=== PATIENT | female | born 1955 | race Two or more races ===

== ENCOUNTER 2022-09-24 08:53 | Outpatient (OUT) | payer BC, SELFPAY ==
[2022-09-24 09:56] LABS: Anion Gap 12.3; BUN Creatinine Ratio 14.9; Calcium 9.7 mg/dL (8.5-10.1); Carbon Dioxide 27.2 mmol/L (21.0-32.0); Chloride 99 mmol/L (98-107); Estimated GFR (African America 54 (>=60); Estimated GFR (Non-African Ame 45 (>=60); Glucose 135 mg/dL (74-106); Potassium 4.5 mmol/L (3.5-5.1); Sodium 134 mmol/L (136-145)
== END 2022-09-24 08:54 ==
LOC: LAB 08:59
PROVIDERS: PCP Family Medicine; Visit Provider Family Medicine
DX: E11.9 Type 2 diabetes mellitus without complications (principal); R79.89 Other specified abnormal findings of blood chemistry
CPT/HCPCS: 36415; 80048

== ENCOUNTER 2023-04-02 08:01 | Outpatient (OUT) | payer OTHER, SELFPAY ==
[2023-04-02 08:36] LABS: Basophils Absolute Auto 0.1 10^3/uL (0.0-0.1); Basophils Percent Auto 1.6 % (0.2-2.0); Eosinophils Absolute Auto 0.3 10^3/uL (0.0-0.7); Hematocrit 36.7 % (36.0-48.0); Immature Granulocytes Abs Auto 0.02 10^3/uL (0.00-0.03); Immature Granulocytes Pct Auto 0.3 % (0.0-0.5); Lymphocytes Absolute Auto 2.3 10^3/uL (1.2-3.8); Lymphocytes Percent Auto 33.7 % (20.5-60.0); Mean Corpuscular HGB Conc 32.7 g/dL (29.9-35.2); Mean Corpuscular Hemoglobin 31.2 pg (26.7-34.0); Mean Corpuscular Volume 95.3 fL (81.0-99.0); Mean Platelet Volume 11.3 fL (9.5-13.5); Monocytes Absolute Auto 0.7 10^3/uL (0.3-0.8); Monocytes Percent Auto 10.9 % (1.7-12.0); Neutrophils Absolute Auto 3.4 10^3/uL (1.4-6.5); Neutrophils Percent Auto 49.5 % (43.0-75.0); Platelet Count 290 10^3/uL (150-450); Red Blood Count 3.85 10^6/uL (4.20-5.40); Red Cell Distribution Width 12.2 % (11.0-15.0); White Blood Count 6.8 10^3/uL (4.0-11.0)
[2023-04-02 08:52] LABS: Estimated Average Glucose 183 mg/dL
[2023-04-02 09:09] LABS: Alanine Aminotransferase 31 U/L (14-59); Albumin Globulin Ratio 0.8; Albumin Level 3.4 g/dL (3.4-5.0); Alkaline Phosphatase 81 U/L (46-116); Aspartate Amino Transferase 18 U/L (15-37); BUN Creatinine Ratio 14.2; Bilirubin Total 0.4 mg/dL (0.2-1.0); Calcium 9.8 mg/dL (8.5-10.1); Carbon Dioxide 22.3 mmol/L (21.0-32.0); Chloride 100 mmol/L (98-107); Chol HDL Ratio 3.1; Cholesterol 148 mg/dL (<=200); Estimated GFR (African America 54 (>=60); Estimated GFR (Non-African Ame 45 (>=60); Globulin 4.3 g/dL; Glucose 169 mg/dL (74-106); HDL Cholesterol 47 mg/dL (40-60); Potassium 3.3 mmol/L (3.5-5.1); Sodium 136 mmol/L (136-145); Total Protein 7.7 g/dL (6.4-8.2); Triglycerides 223 mg/dL (<=150); VLDL CHOLESTEROL 44.6 mg/dL
== END 2023-04-02 08:02 | disposition home or self-care (01) ==
LOC: LAB 08:01
PROVIDERS: PCP Family Medicine; Visit Provider Family Medicine
DX: E78.5 Hyperlipidemia, unspecified (principal); R79.89 Other specified abnormal findings of blood chemistry; D64.9 Anemia, unspecified; E53.8 Deficiency of other specified B group vitamins; E11.9 Type 2 diabetes mellitus without complications
CPT/HCPCS: 36415; 80053; 80061; 82607; 82746; 83036; 85025

== ENCOUNTER 2023-04-12 13:26 | Outpatient (OUT) | payer OTHER, SELFPAY ==
[2023-04-12 14:41] LABS: Anion Gap 17.5; BUN Creatinine Ratio 18.9; Calcium 10.4 mg/dL (8.5-10.1); Carbon Dioxide 24.6 mmol/L (21.0-32.0); Chloride 101 mmol/L (98-107); Estimated GFR (African America 53 (>=60); Estimated GFR (Non-African Ame 44 (>=60); Glucose 170 mg/dL (74-106); Potassium 4.1 mmol/L (3.5-5.1); Sodium 139 mmol/L (136-145)
== END 2023-04-12 13:27 | disposition home or self-care (01) ==
LOC: LAB 13:29
PROVIDERS: PCP Family Medicine; Visit Provider Family Medicine
DX: E87.6 Hypokalemia (principal)
CPT/HCPCS: 36415; 80048

== ENCOUNTER 2023-05-13 07:26 | Outpatient (OUT) | payer OTHER, SELFPAY ==
--- OUTSIDE RECORDS SUMMARY | 2023-05-13 07:29 | XMS_ITS | CCD ---
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 Name Role Phone Selin Jean Attending Unavailable Ted, Selin Pastor Attending Unavailable CHUCHO HONEYCUTT Attending Unavailable Ted, Selin Pastor Attending Unavailable UNKNOWN, PROVIDER Admitting Unavailable SELF, REFERRED Referring Unavailable SELF, REFERRED Primary Care Unavailable CHIP CEDILLO Attending Unavailable MD Procedure Practitioner Unavailab le UNKNOWN, PROVIDER Surgeon Unavailable Rin Nicholson Unavailable LYN, DR GAR Admitting Unavailable GIRBALJIT, DR GAR Attending Unavailable GIRVIN, DR GAR Consulting Unavailable GIRVIN, DR GAR Primary Care Unavailable GIRVIN, DR GAR Admitting Unavailable GIRVIN, DR GAR Attending Unavailable GIRVIN, DR GAR Consulting Unavailable GIRVIN, DR GAR Primary Care Unavailable GIRVIN, DR GAR Admitting Unavailable GIRVIN, DR GAR Attending Unavailable GIRVIN, DR GAR Consulting Unavailable GIRVIN, DR GAR Primary Care Unavailable PAY ., DR DUNBAR Consulting Unavailable PAY ., DR DUNBAR Admitting Unavailable PAY ., DR DUNBAR Attending Unavailable GIRBALJIT, DR GAR Primary Care Unavailable REGIS ., KEV Consulting Unavailable NEFOMAIRA, BUDDY Consulting Unavailable GIRBALJIT, DR GAR Admitting Unavailable GIRVIN, DR GAR Attending Unavailable GIRVIN, DR GAR Consulting Unavailable LYN, DR GAR Primary Care Unavailable GIRBALJIT, DR GAR Admitting Unavailable GIRVIN, DR GAR Primary Care Unavailable GIRBALJIT, DR GAR Attending Unavailable GIRBALJIT, DR GAR Consulting Unavailable Lyn, DO Gar Primary Care Provider [phone] DO Rin Nicholson Attending Provider Rin Nicholson Unavailable Lyn, Rin Primary Care Unavailable Lyn, iRn Admitting Unavailable Medications Current Medications Medication Drug Class(es) Dates Sig (Normalized) Sig (Original) Acetaminophen (6 sources) Tylenol prn Acti ve atorvastatin 10 mg oral tablet (17 sources) HMG-CoA Reductase Inhibitor Start: 7 take 10 mg by mouth once daily Atorvastatin Active 10 MG PO Daily April 06, 2017 12:00am folic acid 0.4 mg / vitamin b12 0.5 mg oral tablet (2 sources) Vitamin B12 Start: 0 take 1 tablet by mouth once daily Vitamin L37-Nvtwy Acid Active 1 TAB PO Daily May 31, 2019 12:00am glimepiride 1 mg oral tablet (2 sources) Sulfonylurea Start: 3 take 1 tablet by mouth every twenty-four hours Glimepiride 1 MG 1 tablet with breakfast or the first main meal of the day Orally Once a day for 90 days Mar, Active hydroCHLOROthiazide 12.5 mg oral tablet (17 sources) Thiazide Diuretic Start: 7 take 12.5 mg by mouth once daily Hydrochlorothiazide Active 12.5 MG PO Daily April 06, 2017 12:00am lisinopril 20 mg oral tablet (13 sources) Angiotensin Converting Enzyme Inhibitor Start: 3 take 1 tablet by mouth every twenty-four hours Lisinopril 20 MG 1 tablet Orally Once a day May, Active metFORMIN hydrochloride 1000 mg oral tablet (15 sources) Biguanide Start: 7 take 1000 mg by mouth twice daily Metformin Active 1000 MG PO Twice daily April 06, 2017 12:00am take 0.5 tablet by m outh once daily at bedtime metFORMIN HCl 1000 mg 1/2 tablet Orally qd at bedtime for 90 days Active metFORMIN HCl 10 00 mg TAKE 1 TABLET TWICE A DAY WITH MEALS Active omeprazole 40 mg delayed release oral capsule (17 sources) Proton Pump Inhibitor Start: 04-06-2017 take 40 mg by mouth once daily Omeprazole Active 40 MG PO Daily April 06, 2017 12:00am One Touch Glucometer glucometer (15 sources) Start: 12-24-2011 One Touch Glucometer glucometer use as directed Dec, Active OneTouch Ultra - (15 sources) OneTouch Ultra - USE TO TEST TWICE A DAY DIRECTED for 90 days Active OneTouch Ultra - USE TO TEST TWICE A DAY DIRECTED Active pioglitazone 30 mg oral tablet (17 sources) Peroxisome Proliferator Receptor alpha Agonist, Peroxisome Proliferator Receptor gamma Agonist, Thiazolidinedione Start: 04-06-2017 take 30 mg by mouth once daily Pioglitazone Active 30 MG PO Daily April 06, 2017 12:00am quinapril 40 mg oral tablet (3 sources) Angiotensin Converting Enzyme Inhibitor Start: 04-06-2017 take 40 mg by mouth once daily Quinapril Active 40 MG PO Daily April 06, 2017 12:00am valsartan 320 mg oral tablet (1 source) Angiotensin 2 Receptor Isai Start: 04-22-2022 take 0.5 tablet by mouth once daily Valsartan 320 MG 1/2 tablet Orally Once a day Apr, Active Vitamin B-12 500 MCG (5 sources) take 1 tablet by mouth every week Vitamin B-12 500 MCG 1 tablet Orally five days per week Active vitamin b12 0.5 mg oral tablet (10 sources) Vitamin B12 take 1 tablet by mouth every week Vitamin B-12 500 MCG 1 tablet Orally five days per week Active take 1 tablet by mouth every wee k Vitamin B-12 500 MCG 1 tablet Orally five days per week Active Completed/Discontinued Medications Medication Drug Class(es) Dates Sig (Normalized) Sig (Original) cyclobenzaprine hydrochloride 5 mg oral tablet (9 sources) Muscle Relaxant Start: 05-29-2019 Cyclobenzaprine HCl 5 MG 1 or 2 tablets by mouth qd hs May, Not-Taking tamoxifen 20 mg oral tablet (4 sources) Estrogen Agonist/Antagon ist Start: 04-06-2017 End: 06-02-2020 take 20 mg by mouth once daily Tamoxifen Discontinued 20 MG PO Daily 90 January 30, 2018 8:57am June 02, 2020 3:05pm Problems Active Problems Problem Classification Problem Date Documented Date Episodic/Chronic Cancer of breast (18 sources) Carcinoma in situ of breast; 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] Chronic Chronic kidney disease (20 sources) Chronic kidney disease stage 3; 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: [Chronic kidney disease, stage 3 (moderate)] Chronic Deficiency and other anemia (15 sources) Anemia in chronic kidney disease; 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: [Anemia in chronic kidney disease] Chronic Deficiency and other anemia (3 sources) Anemia, unspecified; 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: [ANEMIA UNSPECIFIED] Onset: 08-05-2022 Episodic Diabetes mellitus with complications (15 sources) Type 2 diabetes mellitus; 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: [Type 2 diabetes mellitus with diabetic chronic kidney disease] Chronic Diabetes mellitus without complication (20 sources) Type 2 diabetes mellitus well controlled; 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: [Type 2 diabetes mellitus without complications] Onset: 08-05-2022 Chronic Diseases of white blood cells (15 sources) Increased blood leukocyte number; 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: [Elevated white blood cell count, unspecified] Chronic Disorders of lipid metabolism (20 sources) Hyperlipidemia; 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: [Hyperlipidemia, unspecified] Onset: 01-25-2022 Chronic Esophageal disorders (18 sources) Gastroesophageal reflux disease; 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: [Gastro-esophageal reflux disease without esophagitis] Chronic Essential hypertension (18 sources) Hypertensive disorder; 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: [Essential (primary) hypertension] Chronic Genitourinary symptoms and ill-defined conditions (2 sources) Nocturia; 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: [NOCTURIA] Onset: 08-05-2022 Episodic Hypertension with complications and secondary hypertension (15 sources) Hypertensive renal disease; 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: [Hypertensive chronic kidney disease with stage 1 through stage 4 chronic kidney disease, or unspecified chronic kidney disease] Chronic Nutritional deficiencies (4 sources) Deficiency of other specified B group vitamins; 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: [DEFICIENCY SPEC B GROUP VITAMINS] Onset: 01-25-2022 Episodic Other nervous system disorders (15 sources) Skin sensation disturbance; 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: [Paresthesia of skin] Episodic Other non-traumatic joint disorders (2 sources) Pain in right shoulder Episodic Other nutritional; endocrine; and metabolic disorders (2 sources) Hypercalcemia; 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: [Hypercalcemia] Chronic Other nutritional; endocrine; and metabolic disorders (1 source) Hypercalcemia Chronic Other nutritional; endocrine; and metabolic disorders (3 sources) Abnormal weight gain; 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: [ABNORMAL WEIGHT GAIN] Onset: 08-05-2022 Episodic Other screening for suspected conditions (not mental disorders or infectious disease) (20 sources) Mammography abnormal; 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: [Other abnormal and inconclusive findings on diagnostic imaging of breast] Onset: 08-05-2022 Episodic Unclassified (2 sources) COUGH, UNSPECIFIED; 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: [COUGH, UNSPECIFIED] Onset: 05-03-2022 Unclassified (1 source) CONTACT W/AND (SUSP) EXPOS COVID-19; 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: [CONTACT W/AND (SUSP) EXPOS COVID-19] Onset: 05-03-2022 Unclassified (1 source) Encounter for screening mammogram for malignant neoplasm of breast; 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: [Encounter for screening mammogram for malignant neoplasm of breast] Onset: 05-03-2023 Past or Other Problems Problem Classification Problem Date Documented Da te Episodic/Chronic Chronic kidney disease (1 source) Chronic kidney disease Other aftercare (1 source) 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; 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: [OTH JAIL CURRENT DRUG THERAPY] Onset: 05-03-2022 Episodic Other aftercare (1 source) [facility] (current) use of oral hypoglycemic drugs; 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: [JAIL USE ORAL HYPOGLYCEMIC DX] Onset: 05-03-2022 Episodic Pneumonia (except that caused by tuberculosis or sexually transmitted disease) (1 source) Bronchopneumonia, unspecified organism; 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: [BRONCHOPNEUMONIA UNS ORGANISM] Onset: 05-03-2022 Episodic Unclassified (1 source) COUGH, UNSPECIFIED; 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: [COUGH, UNSPECIFIED] Onset: 04-30-2022 Results Test Name Value Interpretation Reference Range Facility MM screening mammo BI w/CADo n 05-03-2023 MM screening mammo BI w/CAD [facility] [place] [address] Mammography Report Signed Patient: Leslee Morfin MR#: [id number] : 1955 Acct:[id number] Age/Sex: 67 / F ADM Date: 05/03/23 Loc: DC Room: Type: [facility] Attending Dr: Rin Nicholson DO Copies to: Rin Nicholson DO Ordering Provider: Rin Nicholson DO Date of Service: 05/03/23 MM/MM screening mammo BI w/CAD: SCREENING CLINICAL DATA: Screening for malignancy. Previous left breast cancer. BILATERAL SCREENING MAMMOGRAMS - FULL FIELD DIGITAL WITH TOMOSYNTHESIS AND CAD Tomosynthesis craniocaudal and mediolateral oblique views of both breasts were obtained using low- dose digital technique. Comparison is made to prior studies from May 03, 2018 through August 22, 2021. This examination was reviewed with the aid of CAD. There are scattered fibroglandular densities. There is subtle postoperative scarring at the upper outer left breast posteriorly. Benign and vascular calcifications are noted. There are no developing masses, typically malignant calcifications or architectural distortion. There has been no significant interval change. MM/MM screening mammo BI w/CAD IMPRESSION: NO MAMMOGRAPHIC EVIDENCE OF MALIGNANCY. ROUTINE FOLLOW-UP IS RECOMMENDED IN ONE YEAR. RESULT CODE: 2 Benign Findings(s) DENSITY CODE: 2 (approximately 25-50% glandular) FOLLOW UP: 1YR The false-negative rate of mammography is approximately 10-percent. Management of a palpable abnormality must be based on clinical grounds. Patient was entered into a reminder system with a target due date for the next mammogram. Impression dictated by: Carmela Cuevas M.D.05/03/2023 1:52 PM Dictation Location: [facility] Transcribed By: [facility] 05/03/23 1352 Dictated By: Carmela Cuevas MD 05/03/23 1349 Signed By: 05/03/23 1352 [facility] PROF CHEM 8 (BAS METB)on Anion gap [Moles/Vol] 14.4 mmol/L Normal [facility] Comment on above: Performed By: #### B MP #### [facility] [address] [address] [address] Raf Pearl Calcium [Mass/Vol] 9.3 mg/dL Normal 8.5-10.1 [facility] Comment on above: Performed By: #### B MP #### [facility] [address] [address] [address] Raf Pearl Chloride [Moles/Vol] 102 mmol/L Normal 98-107 [facility] Comment on above: Performed By: #### B MP #### [facility] [address] [address] [address] Raf Pearl CO2 [Moles/Vol] 26.9 mmol/L Normal 21.0-32.[address] [facility] Comment on above: Performed By: #### B MP #### [facility] [address] [address] [address] Raf Pearl Creatinine [Mass/Vol] 1.32 mg/dL Critically high 0.55-1.02 [facility] Comment on above: Performed By: #### B MP #### [facility] [address] [address] [address] Raf Pearl EGFR-AF KITTITIAN 49 mL/min/1.73m2 Critically low >=[address] [facility] Comment on above: Performed By: #### B MP #### [facility] [address] [address] [address] Raf Pearl EGFR-NON AF KITTITIAN 40 mL/min/1.73m2 Critically low >=60 [facility] Comment on above: Performed By: #### B MP #### [facility] [address] [address] [address] Raf Pearl Glucose [Mass/Vol] 151 mg/dL Critically high 74-106 [facility] Comment on above: Performed By: #### B MP #### [facility] [address] [address] [address] Raf Pearl Potassium [Moles/Vol] 4.3 mmol/L Normal 3.5-5.1 [facility] Comment on above: Performed By: #### B MP #### [facility] [address] [address] [address] Raf Pearl Sodium [Moles/Vol] 139 mmol/L Normal 136-145 [facility] Comment on above: Performed By: #### B MP #### [facility] [address] [address] [address] Raf Peral Urea nitrogen [Mass/Vol] 17.0 mg/dL Normal 7.0-18.0 [facility] Comment on above: Performed By: #### B MP #### [facility] [address] [address] [address] Raf Pearl Urea nitrogen/Creatinine [Mass ratio] 12.9 mg/mg Normal [facility] Comment on above: Performed By: #### B MP #### [facility] [address] [address] [address] Raf Pearl PROF CHEM 8 (BAS METB)on Anion gap [Moles/Vol] 9.7 mmol/L Normal [facility] Comment on above: Performed By: #### B MP #### [facility] [address] [address] [address] Raf Pearl Calcium [Mass/Vol] 9.1 mg/dL Normal 8.5-10.1 [facility] Comment on above: Performed By: #### B MP #### [facility] [address] [address] [address] Raf Pearl Chloride [Moles/Vol] 100 mmol/L Normal 98-107 [facility] Comment on above: Performed By: #### B MP #### [facility] [address] [address] [address] Raf Pearl CO2 [Moles/Vol] 28.0 mmol/L Normal 21.0-32.0 [facility] Comment on above: Performed By: #### B MP #### [facility] [address] [address] [address] Raf Pearl Creatinine [Mass/Vol] 1.18 mg/dL Critically high 0.55-1.02 [facility] Comment on above: Performed By: #### B MP #### [facility] [address] [address] [address] Raf Pearl EGFR-AF KITTITIAN 56 mL/min/1.73m2 Critically low >=60 [facility] Comment on above: Performed By: #### B MP #### [facility] [address] [address] [address] Raf Pearl EGFR-NON AF KITTITIAN 46 mL/min/1.73m2 Critically low >=60 [facility] Comment on above: Performed By: #### B MP #### [facility] [address] [address] [address] Raf Pearl Glucose [Mass/Vol] 113 mg/dL Critically high 74-106 [facility] Comment on above: Performed By: #### B MP #### [facility] [address] [address] [address] Raf Pearl Potassium [Moles/Vol] 3.7 mmol/L Normal 3.5-5.1 [facility] Comment on above: Performed By: #### B MP #### [facility] [address] [address] [address] Raf Pearl Sodium [Moles/Vol] 134 mmol/L Critically low 136-145 [facility] Comment on above: Performed By: #### B MP #### [facility] [address] [place] [address] Dr. Raf Pearl Urea nitrogen [Mass/Vol] 13.0 mg/dL Normal 7.0-18.[address] [facility] Comment on above: Performed By: #### B MP #### [facility] [address] [place] [address] Dr. Raf Pearl Urea nitrogen/Creatinine [Mass ratio] 11.0 mg/mg Normal [facility] Comment on above: Performed By: #### B MP #### [facility] [address] [place] [address] Dr. Raf Pearl FOLATE ([facility])on Folate >20.0 Normal >3.[address] [facility] Comment on above: Result Comment: A se rum folate concentration of less than 3.1 ng/mL is considered to represent clinical deficiency. Performed By: #### F OLALC #### [facility] [address] [place] [address] Dr. Raf Pearl CBC AUTO DIFFon 07-31-2022 BASO # 0.1 103/ul Normal 0.0-0.1 [facility] Comment on above: Performed By: #### M ALBR #### [facility] [address] [place] [address] Dr. Raf Pearl Basophils/100 WBC (Bld) 1.3 % Normal 0.2-2.[address] [facility] Comment on above: Performed By: #### M ALBR #### [facility] [address] [place] [address] Dr. Raf Pearl EO # 0.4 103/ul Normal 0.0-0.[address] [facility] Comment on above: Performed By: #### M ALBR #### [facility] [address] [place] [address] Dr. Raf Pearl Eosinophils/100 WBC (Bld) 4.5 % Normal 0.9-7.[address] [facility] Comment on above: Performed By: #### M ALBR #### [facility] [address] [place] [address] Dr. Raf Pearl Erythrocyte distribution width (RBC) [Ratio] 13.2 % Normal 11.0-15.0 [facility] Comment on above: Performed By: #### M ALBR #### [facility] [address] [place] [address] Dr. Raf Pearl Hematocrit (Bld) [Volume fraction] 33.8 % Critically low 36.0-48.0 [facility] Comment on above: Performed By: #### M ALBR #### [facility] [address] [place] [address] Dr. Raf Pearl Hemoglobin (Bld) [Mass/Vol] 11.5 g/dL Critically low 12.0-16.0 [facility] Comment on above: Performed By: #### M ALBR #### [facility] [address] [place] [address] Dr. Raf Pearl IG # 0.02 10e3/ul Normal 0.00-0.03 [facility] Comment on above: Performed By: #### M ALBR #### [facility] [address] [place] [address] Dr. Raf Pearl IG % 0.2 % Normal 0.0-0.5 [facility] Comment on above: Performed By: #### M ALBR #### [facility] [address] [place] [address] Dr. Raf Pearl LYMPH # 2.6 103/ul Normal 1.2-3.8 [facility] Comment on above: Performed By: #### M ALBR #### [facility] [address] [place] [address] Dr. Raf Pearl Lymphocytes/100 WBC (Bld) 31.6 % Normal 20.5-60.0 [facility] Comment on above: Performed By: #### M ALBR #### [facility] [address] [place] [address] Dr. Raf Pearl MANUAL DIFF REQ NO Normal [facility] Comment on above: Performed By: #### M ALBR #### [facility] [address] [place] [address] Dr. Raf Pearl MCH (RBC) [Entitic mass] 31.1 pg Normal 26.7-34.0 [facility] Comment on above: Performed By: #### M ALBR #### [facility] [address] [place] [address] Dr. Raf Pearl MCHC (RBC) [Mass/Vol] 34.0 g/dL Normal 29.9-35.2 [facility] Comment on above: Performed By: #### M ALBR #### [facility] [address] [place] [address] Dr. Raf Pearl MCV (RBC) [Entitic vol] 91.4 fL Normal 81.0-99.0 [facility] Comment on above: Performed By: #### M ALBR #### [facility] [address] [place] [address] Dr. Raf Pearl MONO # 0.6 103/ul Normal 0.3-0.8 [facility] Comment on above: Performed By: #### M ALBR #### [facility] [address] [place] [address] Dr. Raf Pearl Monocytes/100 WBC (Bld) 7.2 % Normal 1.7-12.0 [facility] Comment on above: Performed By: #### M ALBR #### [facility] [address] [place] [address] Dr. Raf Pearl NEUT # 4.6 103/ul Normal 1.4-6.5 [facility] Comment on above: Performed By: #### M ALBR #### [facility] [address] [place] [address] Dr. Raf Pearl Neutrophils/100 WBC (Bld) 55.2 % Normal 43.0-75.[address] [facility] Comment on above: Performed By: #### M ALBR #### [facility] [address] [place] [address] Dr. Raf Pearl Platelet mean volume (Bld) [Entitic vol] 10.0 fL Normal 9.5-13.5 [facility] Comment on above: Performed By: #### M ALBR #### [facility] [address] [place] [address] Dr. Raf Pearl PLT 352 103/ul Normal 150-[address] [facility] Comment on above: Performed By: #### M ALBR #### [facility] [address] [place] [address] Dr. Raf Pearl RBC 3.70 106/ul Critically low 4.20-5.40 [facility] Comment on above: Performed By: #### M ALBR #### [facility] [address] [place] [address] Dr. Raf Pearl WBC 8.2 103/ul Normal 4.0-11.0 [facility] Comment on above: Performed By: #### M ALBR #### [facility] [address] [place] [address] Dr. Raf Pearl CULTURE URINEon 07-31-2022 CULTURE URINE Culture Observations: NO GROWTH. Normal [facility] Comment on above: Performed By: #### B MP #### [facility] [address] [place] [address] Dr. Raf Pearl GLYCOHEMOGLOBIN A1Con 2022 ADA RECOMMENDATION SEE BELOW Normal [facility] Comment on above: Result Comment: ADA RECOMMENDED LIMIT 4.0 - 6.0 ADA THERAPEUTIC TARGET < 7.0 ACTION SUGGESTED > 7.0 Performed By: #### B MP #### [facility] [address] [place] [address] Dr. Raf Pearl Glucose [Mass/Vol] 140 mg/dL Normal [facility] Comment on above: Performed By: #### B MP #### [facility] [address] [place] [address] Dr. Raf Pearl HbA1c (Bld) [Mass fraction] 6.5 % Critically high 4.5-6.2 [facility] Comment on above: Performed By: #### B MP #### [facility] [address] [place] [address] Dr. Raf Pearl LIPID PROFILEon 07-31-2022 CHOL-HDL RATIO NORM SEE BELOW Normal [facility] Comment on above: Result Comment: 3.3 - 4.4 LOW RISK 4.4 - 7.1 AVERAGE RISK 7.1 - 11.0 MODERATE RISK >11.0 HIGH RISK Performed By: #### C MP, LIPID, TSH #### [facility] [address] [address] [address] Raf Pearl Cholesterol [Mass/Vol] 166 mg/dL Normal <=200 [facility] Comment on above: Performed By: #### C MP, LIPID, TSH #### [facility] [address] [address] [address] Raf Pearl Cholesterol in HDL [Mass/Vol] 57 mg/dL Normal 40-60 [facility] Comment on above: Performed By: #### C MP, LIPID, TSH #### [facility] [address] [address] [address] Raf Pearl Cholesterol in LDL [Mass/Vol] 91.4 mg/dL Normal [facility] Comment on above: Performed By: #### C MP, LIPID, TSH #### [facility] [address] [address] [address] Raf Pearl Cholesterol.total/Ch olesterol in HDL [Mass ratio] 2.9 {ratio} Normal [facility] Comment on above: Performed By: #### C MP, LIPID, TSH #### [facility] [address] [address] [address] Raf Pearl HDL NORMAL > or = 60 mg/dl - LOW CARDIOVASCULAR RISK <40 mg/dl - HIGH CARDIOVASCULAR RISK Normal [facility] Comment on above: Performed By: #### C MP, LIPID, TSH #### [facility] [address] [address] [address] Raf Pearl LDL CALC NORMAL SEE BELOW Normal [facility] Comment on above: Result Comment: <100 mg/dl OPTIMAL 100 - 129 mg/dl NEAR OR ABOVE OPTIMAL 130 - 159 mg/dl BORDERLINE HIGH 160 - 189 mg/dl HIGH >190 mg/dl VERY HIGH Performed By: #### C MP, LIPID, TSH #### [facility] [address] [address] [address] Raf Pearl Triglyceride [Mass/Vol] 88 mg/dL Normal <=150 [facility] Comment on above: Performed By: #### C MP, LIPID, TSH #### [facility] [address] [address] [address] Raf Pearl VLDL CALC 17.6 mg/dL Normal [facility] Comment on above: Performed By: #### C MP, LIPID, TSH #### [facility] [address] [address] Dr. Raf Pearl MICROALBUMIN, RAND URon 04- mALB <1.3 Normal <=30.0 [facility] Comment on above: Performed By: #### M ALBR #### [facility] [address] [address] [address] Raf Pearl PROF 14(COMP METB)on 023 Albumin [Mass/Vol] 3.6 g/dL Normal 3.4-5.0 [facility] Comment on above: Performed By: #### C MP, LIPID, TSH #### [facility] [address] [address] [address] Rfa Pearl Albumin/Globulin [Mass ratio] 1.0 {ratio} Normal [facility] Comment on above: Performed By: #### C MP, LIPID, TSH #### [facility] [address] [address] [address] Raf Pearl ALP [Catalytic activity/Vol] 70 U/L Normal 46-116 [facility] Comment on above: Performed By: #### C MP, LIPID, TSH #### [facility] [address] [address] [address] Raf Pearl ALT [Catalytic activity/Vol] 22 U/L Normal 14-59 [facility] Comment on above: Performed By: #### C MP, LIPID, TSH #### [facility] [address] [address] [address] Raf Pearl Anion gap [Moles/Vol] 11.8 mmol/L Normal [facility] Comment on above: Performed By: #### C MP, LIPID, TSH #### [facility] [address] [address] [address] Raf Pearl AST [Catalytic activity/Vol] 19 U/L Normal 15-37 [facility] Comment on above: Performed By: #### C MP, LIPID, TSH #### [facility] [address] [address] [address] Raf Pearl Bilirubin [Mass/Vol] 0.3 mg/dL Normal 0.2-1.0 [facility] Comment on above: Performed By: #### C MP, LIPID, TSH #### [facility] [address] [place] [address] Dr. Raf Pearl Calcium [Mass/Vol] 9.0 mg/dL Normal 8.5-10.1 [facility] Comment on above: Performed By: #### C MP, LIPID, TSH #### [facility] [address] [place] [address] Dr. Raf Pearl Chloride [Moles/Vol] 104 mmol/L Normal 98-107 [facility] Comment on above: Performed By: #### C MP, LIPID, TSH #### [facility] [address] [place] [address] Dr. Raf Pearl CO2 [Moles/Vol] 28.6 mmol/L Normal 21.0-32.0 [facility] Comment on above: Performed By: #### C MP, LIPID, TSH #### [facility] [address] [place] [address] Dr. Raf Pearl Creatinine [Mass/Vol] 1.48 mg/dL Critically high 0.55-1.02 [facility] Comment on above: Performed By: #### C MP, LIPID, TSH #### [facility] [address] [place] [address] Dr. Raf Pearl EGFR-AF KITTITIAN 43 mL/min/1.73m2 Critically low >=60 [facility] Comment on above: Performed By: #### C MP, LIPID, TSH #### [facility] [address] [place] [address] Dr. Raf Pearl EGFR-NON AF KITTITIAN 35 mL/min/1.73m2 Critically low >=60 [facility] Comment on above: Performed By: #### C MP, LIPID, TSH #### [facility] [address] [place] [address] Dr. Raf Pearl Globulin (S) [Mass/Vol] 3.5 g/dL Normal [facility] Comment on above: Performed By: #### C MP, LIPID, TSH #### [facility] [address] [place] [address] Dr. Raf Pearl Glucose [Mass/Vol] 102 mg/dL Normal 74-106 [facility] Comment on above: Performed By: #### C MP, LIPID, TSH #### [facility] [address] [place] [address] Dr. Raf Pearl Potassium [Moles/Vol] 4.4 mmol/L Normal 3.5-5.1 [facility] Comment on above: Performed By: #### C MP, LIPID, TSH #### [facility] [address] [place] [address] Dr. Raf Pearl Protein [Mass/Vol] 7.1 g/dL Normal 6.4-8.2 [facility] Comment on above: Performed By: #### C MP, LIPID, TSH #### [facility] [address] [place] [address] Dr. Raf Pearl Sodium [Moles/Vol] 140 mmol/L Normal 136-145 [facility] Comment on above: Performed By: #### C MP, LIPID, TSH #### [facility] [address] [place] [address] Dr. Raf Pearl Urea nitrogen [Mass/Vol] 21.0 mg/dL Critically high 7.0-18.0 [facility] Comment on above: Performed By: #### C MP, LIPID, TSH #### [facility] [address] [place] [address] Dr. Raf Pearl Urea nitrogen/Creatinine [Mass ratio] 14.2 mg/mg Normal [facility] Comment on above: Performed By: #### C MP, LIPID, TSH #### [facility] [address] [place] [address] Dr. Raf Pearl TSHon 07-31-2022 TSH 2.298 uIU/mL Normal 0.358-3.740 [facility] Comment on above: Performed By: #### C MP, LIPID, TSH #### [facility] [address] [address] [address] Raf Pearl UA RANDOM W/MICROSCOPICon BACTERIA NONE SEEN Normal NONE SEEN [facility] Comment on above: Performed By: #### B MP #### [facility] [address] [place] [address] Dr. Raf Pearl Bilirubin Ql (U) Negative Normal NEGATIVE [facility] Comment on above: Performed By: #### B MP #### [facility] [address] [address] [address] Raf Pearl CAST NONE SEEN Normal NONE SEEN [facility] Comment on above: Performed By: #### B MP #### [facility] [address] [place] [address] Dr. Raf Pearl Clarity (U) CLEAR Normal CLEAR [facility] Comment on above: Performed By: #### B MP #### [facility] [address] [place] [address] Dr. Rfa Pearl Color (U) LT. YELLOW Normal YELLOW [facility] Comment on above: Performed By: #### B MP #### [facility] [address] [place] [address] Dr. Raf Pearl Crystals LM Nom (Urine sed) NONE SEEN Normal NONE SEEN [facility] Comment on above: Performed By: #### B MP #### [facility] [address] [place] [address] Dr. Raf Pearl Epithelial cells LM Ql (Urine sed) NONE SEEN Normal NONE SEEN /RARE [facility] Comment on above: Performed By: #### B MP #### [facility] [address] [place] [address] Dr. Raf Pearl Glucose Ql (U) Negative Normal NEGATIVE [facility] Comment on above: Performed By: #### B MP #### [facility] [address] [place] [address] Dr. Raf Pearl Hemoglobin Ql (U) Negative Normal NEGATIVE [facility] Comment on above: Performed By: #### B MP #### [facility] [address] [address] [address] Raf Pearl Ketones Ql (U) Negative Normal NEGATIVE [facility] Comment on above: Performed By: #### B MP #### [facility] [address] [place] [address] Dr. Raf Pearl LEUKOCYTES Negative Normal NEGATIVE [facility] Comment on above: Performed By: #### B MP #### [facility] [address] [place] [address] Dr. Raf Pearl MUCOUS NONE SEEN Normal NONE SEEN [facility] Comment on above: Performed By: #### B MP #### [facility] [address] [place] [address] Dr. Raf Pearl Nitrite Ql (U) Negative Normal NEGATIVE [facility] Comment on above: Performed By: #### B MP #### [facility] [address] [place] [address] Dr. Raf Pearl pH (U) 7.0 [pH] Normal 5-9 [facility] Comment on above: Performed By: #### B MP #### [facility] [address] [place] [address] Dr. Raf Pearl RBC 0-2 Normal 0-2 [facility] Comment on above: Performed By: #### B MP #### [facility] [address] [place] [address] Dr. Raf Pearl SPEC GRAVITY <=1.005 Abnormal 1.005-<=1.025 [facility] Comment on above: Performed By: #### B MP #### [facility] [address] [place] [address] Dr. Raf Pearl UA PROTEIN Negative Normal NEGATIVE/ TRACE [facility] Comment on above: Performed By: #### B MP #### [facility] [address] [place] [address] Dr. Raf Pearl Urobilinogen Qn (U) 0.2 {Tawana'U}/dL Normal 0.2 - 1. 0 [facility] Comment on above: Performed By: #### B MP #### [facility] [address] [place] [address] Dr. Raf Pearl WBC NONE SEEN Normal NONE SEEN [facility] Comment on above: Performed By: #### B MP #### [facility] [address] [place] [address] Dr. Raf Pearl VITAMIN B12on 07-31-2022 Cobalamin (Vitamin B12) [Mass/Vol] 600.0 pg/mL Normal 193.0-986.[address] [facility] Comment on above: Performed By: #### B MP #### [facility] [address] [place] [address] Dr. Raf Pearl Covid-19 PCR (CVDTBH)on 04-18 SARS-CoV-2 (COVID-19) RNA KHANH+probe Ql (Unsp spec) Not detected Normal NOT DETECTED [facility] Comment on above: Result Comment: When diagnostic testing is negative, the possibility of a false negative should be considered in the context of a patient's recent exposures and the presence of clinical signs and symptoms consistent with SARS-CoV-2. This test is not yet approved or cleared by the [place] FDA. When there are no FDA-approved or cleared tests available, and other criteria are met, FDA can make tests available under an emergency access mechanism called an Emergency Use Authorization (EUA). The EUA for this test is supported by the [place] of Health and Human Service's declaration that circumstances exist to justify the emergency use of in vitro diagnostics for the detection and/or diagnosis of the virus that causes COVID-19. This EUA will remain in effect for the duration of the COVID-19 declaration justifying emergency of IVDs, unless it is terminated or revoked by the FDA (after which the test may no longer be used). Performed By: #### C VDTBH #### [facility] [address] [place] [address] Dr. Raf Pearl INFLUENZA A AND B AGon 04-30 INFLUANEGH SEE BELOW Normal [facility] Comment on above: Result Comment: Nega tive for Flu A protein angiten. Infection due to Flu A cannot be ruled out. Flu A angiten in the sample may be below the detection limit of the test. Performed By: #### B MP #### [facility] [address] [place] [address] Dr. Raf Pearl [facility] SEE BELOW Normal [facility] Comment on above: Result Comment: Nega tive for Flu B protein antigen. Infection due to Flu B cannot be ruled out. Flu B antigen in the sample may be below the detection limit of the test. Performed By: #### B MP #### [facility] [address] [place] [address] Dr. Raf Pearl INFLUENZA A AG Negative Normal NEGATIVE SEE COMMENT [facility] Comment on above: Performed By: #### B MP #### [facility] [address] [address] [address] Raf Pearl INFLUENZA B AG Negative Normal NEGATIVE SEE COMMENT [facility] Comment on above: Performed By: #### B MP #### [facility] [address] [place] [address] Dr. Raf Pearl XR CHEST 2 Von 04-30-2022 XR CHEST 2 V EXAM: XR CHEST 2 V HISTORY: COUGH for 10 days. COMPARISON: 01/07/2019 TECHNIQUE: Upright PA and lateral chest x-ray FINDINGS: The heart is not enlarged and the vasculature is not distended. No acute infiltrate, effusion or pneumothorax is identified. The osseous structures are grossly intact. Hardware projects over the cervical spine. IMPRESSION: No acute infiltrate or evidence of cardiac decompensation. The overall appearance of the chest has not changed significantly. Electronically authenticated by: BUDDY LEMOS Date: 2022-04-30 19:[address] [facility] PROF CHEM 8 (BAS METB)on Anion gap [Moles/Vol] 12.6 mmol/L Normal [facility] Comment on above: Performed By: #### B MP #### [facility] [address] [place] [address] Dr. Raf Pearl Calcium [Mass/Vol] 9.4 mg/dL Normal 8.5-10.1 [facility] Comment on above: Performed By: #### B MP #### [facility] [address] [place] [address] Dr. Raf Pearl Chloride [Moles/Vol] 99 mmol/L Normal 98-[address] [facility] Comment on above: Performed By: #### B MP #### [facility] [address] [address] [address] Raf Pearl CO2 [Moles/Vol] 29.3 mmol/L Normal 21.0-32.0 [facility] Comment on above: Performed By: #### B MP #### [facility] [address] [address] [address] Raf Pearl Creatinine [Mass/Vol] 1.15 mg/dL Critically high 0.55-1.02 [facility] Comment on above: Performed By: #### B MP #### [facility] [address] [address] [address] Raf Pearl EGFR-AF KITTITIAN 57 mL/min/1.73m2 Critically low >=60 [facility] Comment on above: Performed By: #### B MP #### [facility] [address] [address] [address] Raf Pearl EGFR-NON AF KITTITIAN 47 mL/min/1.73m2 Critically low >=60 [facility] Comment on above: Performed By: #### B MP #### [facility] [address] [address] [address] Raf Pearl Glucose [Mass/Vol] 146 mg/dL Critically high 74-106 [facility] Comment on above: Performed By: #### B MP #### [facility] [address] [address] [address] Raf Pearl Potassium [Moles/Vol] 3.9 mmol/L Normal 3.5-5.1 [facility] Comment on above: Performed By: #### B MP #### [facility] [address] [address] [address] Raf Pearl Sodium [Moles/Vol] 137 mmol/L Normal 136-145 [facility] Comment on above: Performed By: #### B MP #### [facility] [address] [address] [address] Raf Pearl Urea nitrogen [Mass/Vol] 10.0 mg/dL Normal 7.0-18.0 [facility] Comment on above: Performed By: #### B MP #### [facility] [address] [place] [address] Dr. Raf Pearl Urea nitrogen/Creatinine [Mass ratio] 8.7 mg/mg Normal [facility] Comment on above: Performed By: #### B MP #### [facility] [address] [place] [address] Dr. Raf Peral CBC AUTO DIFFon 01-22-2022 BASO # 0.1 103/ul Normal 0.0-0.1 [facility] Comment on above: Performed By: #### B MP #### [facility] [address] [place] [address] Dr. Raf Pearl Basophils/100 WBC (Bld) 1.5 % Normal 0.2-2.0 [facility] Comment on above: Performed By: #### B MP #### [facility] [address] [place] [address] Dr. Raf Pearl EO # 0.3 103/ul Normal 0.0-0.7 [facility] Comment on above: Performed By: #### B MP #### [facility] [address] [place] [address] Dr. Raf Pearl Eosinophils/100 WBC (Bld) 5.3 % Normal 0.9-7.0 [facility] Comment on above: Performed By: #### B MP #### [facility] [address] [place] [address] Dr. Raf Pearl Erythrocyte distribution width (RBC) [Ratio] 13.1 % Normal 11.0-15.0 [facility] Comment on above: Performed By: #### B MP #### [facility] [address] [place] [address] Dr. Raf Pearl Hematocrit (Bld) [Volume fraction] 36.4 % Normal 36.0-48.0 [facility] Comment on above: Performed By: #### B MP #### [facility] [address] [place] [address] Dr. Raf Pearl Hemoglobin (Bld) [Mass/Vol] 12.4 g/dL Normal 12.0-16.0 [facility] Comment on above: Performed By: #### B MP #### [facility] [address] [place] [address] Dr. Raf Pearl IG # 0.02 10e3/ul Normal 0.00-0.03 [facility] Comment on above: Performed By: #### B MP #### [facility] [address] [place] [address] Dr. Raf Pearl IG % 0.3 % Normal 0.0-0.5 [facility] Comment on above: Performed By: #### B MP #### [facility] [address] [place] [address] Dr. Raf Pearl LYMPH # 2.0 103/ul Normal 1.2-3.[address] [facility] Comment on above: Performed By: #### B MP #### [facility] [address] [place] [address] Dr. Raf Pearl Lymphocytes/100 WBC (Bld) 31.6 % Normal 20.5-60.0 [facility] Comment on above: Performed By: #### B MP #### [facility] [address] [place] [address] Dr. Raf Pearl MANUAL DIFF REQ NO Normal [facility] Comment on above: Performed By: #### B MP #### [facility] [address] [place] [address] Dr. Raf Pearl MCH (RBC) [Entitic mass] 31.4 pg Normal 26.7-34.0 [facility] Comment on above: Performed By: #### B MP #### [facility] [address] [place] [address] Dr. Raf Pearl MCHC (RBC) [Mass/Vol] 34.1 g/dL Normal 29.9-35.[address] [facility] Comment on above: Performed By: #### B MP #### [facility] [address] [place] [address] Dr. Raf Pearl MCV (RBC) [Entitic vol] 92.2 fL Normal 81.0-99.0 [facility] Comment on above: Performed By: #### B MP #### [facility] [address] [place] [address] Dr. Raf Pearl MONO # 0.4 103/ul Normal 0.3-0.[address] [facility] Comment on above: Performed By: #### B MP #### [facility] [address] [place] [address] Dr. Raf Pearl Monocytes/100 WBC (Bld) 6.8 % Normal 1.7-12.[address] [facility] Comment on above: Performed By: #### B MP #### [facility] [address] [place] [address] Dr. Raf Pearl NEUT # 3.4 103/ul Normal 1.4-6.[address] [facility] Comment on above: Performed By: #### B MP #### [facility] [address] [place] [address] Dr. Raf Pearl Neutrophils/100 WBC (Bld) 54.5 % Normal 43.0-75.[address] [facility] Comment on above: Performed By: #### B MP #### [facility] [address] [place] [address] Dr. Raf Pearl Platelet mean volume (Bld) [Entitic vol] 9.7 fL Normal 9.5-13.[address] [facility] Comment on above: Performed By: #### B MP #### [facility] [address] [place] [address] Dr. Raf Pearl PLT 384 103/ul Normal 150-[address] [facility] Comment on above: Performed By: #### B MP #### [facility] [address] [place] [address] Dr. Raf Pearl RBC 3.95 106/ul Critically low 4.20-5.40 [facility] Comment on above: Performed By: #### B MP #### [facility] [address] [place] [address] Dr. Raf Pearl WBC 6.2 103/ul Normal 4.0-11.[address] [facility] Comment on above: Performed By: #### B MP #### [facility] [address] [place] [address] Dr. Raf Pearl GLYCOHEMOGLOBIN A1Con 2021 ADA RECOMMENDATION SEE BELOW Normal [facility] Comment on above: Result Comment: ADA RECOMMENDED LIMIT 4.0 - 6.0 ADA THERAPEUTIC TARGET < 7.0 ACTION SUGGESTED > 7.0 Performed By: #### A 1C #### [facility] [address] [address] [address] Raf Pearl Glucose [Mass/Vol] 137 mg/dL Normal [facility] Comment on above: Performed By: #### A 1C #### [facility] [address] [address] [address] Raf Pearl HbA1c (Bld) [Mass fraction] 6.4 % Critically high 4.5-6.2 [facility] Comment on above: Performed By: #### A 1C #### [facility] [address] [place] [address] Dr. Raf Pearl LIPID PROFILEon 01-22-2022 CHOL-HDL RATIO NORM SEE BELOW Normal [facility] Comment on above: Result Comment: 3.3 - 4.4 LOW RISK 4.4 - 7.1 AVERAGE RISK 7.1 - 11.0 MODERATE RISK >11.0 HIGH RISK Performed By: #### B MP #### [facility] [address] [place] [address] Dr. Raf Pearl Cholesterol [Mass/Vol] 165 mg/dL Normal <=200 [facility] Comment on above: Performed By: #### B MP #### [facility] [address] [address] [address] Raf Pearl Cholesterol in HDL [Mass/Vol] 66 mg/dL Critically high 40-60 [facility] Comment on above: Performed By: #### B MP #### [facility] [address] [address] [address] Raf Pearl Cholesterol in LDL [Mass/Vol] 87.8 mg/dL Normal [facility] Comment on above: Performed By: #### B MP #### [facility] [address] [place] [address] Dr. Raf Pearl Cholesterol.total/Ch olesterol in HDL [Mass ratio] 2.5 {ratio} Normal [facility] Comment on above: Performed By: #### B MP #### [facility] [address] [address] [address] Raf Pearl HDL NORMAL > or = 60 mg/dl - LOW CARDIOVASCULAR RISK <40 mg/dl - HIGH CARDIOVASCULAR RISK Normal [facility] Comment on above: Performed By: #### B MP #### [facility] [address] [address] [address] Raf Pearl LDL CALC NORMAL SEE BELOW Normal [facility] Comment on above: Result Comment: <100 mg/dl OPTIMAL 100 - 129 mg/dl NEAR OR ABOVE OPTIMAL 130 - 159 mg/dl BORDERLINE HIGH 160 - 189 mg/dl HIGH >190 mg/dl VERY HIGH Performed By: #### B MP #### [facility] [address] [place] [address] Dr. Raf Pearl Triglyceride [Mass/Vol] 56 mg/dL Normal <=150 [facility] Comment on above: Performed By: #### B MP #### [facility] [address] [place] [address] Dr. Raf Pearl VLDL CALC 11.2 mg/dL Normal [facility] Comment on above: Performed By: #### B MP #### [facility] [address] [place] [address] Dr. Raf Pearl PROF 14(COMP METB)on 022 Albumin [Mass/Vol] 4.0 g/dL Normal 3.4-5.0 [facility] Comment on above: Performed By: #### B MP #### [facility] [address] [place] [address] Dr. Raf Pearl Albumin/Globulin [Mass ratio] 1.1 {ratio} Normal [facility] Comment on above: Performed By: #### B MP #### [facility] [address] [place] [address] Dr. Raf Pearl ALP [Catalytic activity/Vol] 81 U/L Normal 46-116 [facility] Comment on above: Performed By: #### B MP #### [facility] [address] [place] [address] Dr. Raf Pearl ALT [Catalytic activity/Vol] 26 U/L Normal 14-59 [facility] Comment on above: Performed By: #### B MP #### [facility] [address] [place] [address] Dr. Raf Pearl Anion gap [Moles/Vol] 12.1 mmol/L Normal [facility] Comment on above: Performed By: #### B MP #### [facility] [address] [address] [address] Raf Pearl AST [Catalytic activity/Vol] 16 U/L Normal 15-37 [facility] Comment on above: Performed By: #### B MP #### [facility] [address] [place] [address] Dr. Raf Pearl Bilirubin [Mass/Vol] 0.3 mg/dL Normal 0.2-1.0 [facility] Comment on above: Performed By: #### B MP #### [facility] [address] [place] [address] Dr. Raf Pearl Calcium [Mass/Vol] 9.2 mg/dL Normal 8.5-10.1 [facility] Comment on above: Performed By: #### B MP #### [facility] [address] [place] [address] Dr. Raf Pearl Chloride [Moles/Vol] 103 mmol/L Normal 98-107 [facility] Comment on above: Performed By: #### B MP #### [facility] [address] [place] [address] Dr. Raf Pearl CO2 [Moles/Vol] 26.9 mmol/L Normal 21.0-32.0 [facility] Comment on above: Performed By: #### B MP #### [facility] [address] [place] [address] Dr. Raf Pearl Creatinine [Mass/Vol] 1.17 mg/dL Critically high 0.55-1.02 [facility] Comment on above: Performed By: #### B MP #### [facility] [address] [place] [address] Dr. Raf Pearl EGFR-AF KITTITIAN 56 mL/min/1.73m2 Critically low >=60 [facility] Comment on above: Performed By: #### B MP #### [facility] [address] [address] [address] Raf Pearl EGFR-NON AF KITTITIAN 46 mL/min/1.73m2 Critically low >=60 [facility] Comment on above: Performed By: #### B MP #### [facility] [address] [place] [address] Dr. Raf Pearl Globulin (S) [Mass/Vol] 3.6 g/dL Normal [facility] Comment on above: Performed By: #### B MP #### [facility] [address] [place] [address] [address] Raf Pearl Glucose [Mass/Vol] 141 mg/dL Critically high 74-106 T [facility] Comment on above: Performed By: #### B MP #### [facility] [address] [place] [address] [address] Raf Pearl Potassium [Moles/Vol] 4.0 mmol/L Normal 3.5-5.1 [facility] Comment on above: Performed By: #### B MP #### [facility] [address] [place] [address] [address] Raf Pearl Protein [Mass/Vol] 7.6 g/dL Normal 6.4-8.2 [facility] Comment on above: Performed By: #### B MP #### [facility] [address] [place] [address] [address] Raf Pearl Sodium [Moles/Vol] 138 mmol/L Normal 136-145 The [facility] Comment on above: Performed By: #### B MP #### [facility] [address] [place] [address] [address] Raf Pearl Urea nitrogen [Mass/Vol] 19.0 mg/dL Critically high 7.0-18.0 [facility] Comment on above: Performed By: #### B MP #### [facility] [address] [place] [address] [address] Raf Pearl Urea nitrogen/Creatinine [Mass ratio] 16.2 mg/mg Normal [facility] Comment on above: Performed By: #### B MP #### [facility] [address] [place] [address] Dr. Raf Pearl VIT B12 AND FOLATEon 2021 Cobalamin (Vitamin B12) [Mass/Vol] 786.0 pg/mL Normal 193.0-986.0 [facility] Comment on above: Performed By: #### B 12FOL #### [facility] [address] [place] [address] Dr. Raf Pearl FOLATE 21.80 ng/mL Normal 8.60-58.90 [facility] Comment on above: Performed By: #### B 12FOL #### [facility] [address] [place] [address] Dr. Raf Pearl CERVICAL SPINE 2 OR 3 [facility] 11-02-2018 CERVICAL SPINE 2 OR 3 [facility] Department of Radiology [address] [place] [id number] Patient Name: CRISELDA MORFIN : 1955 Sex: F Age: Race: White Pt. Location: Patient Status: D Ordered Date: 11/02/2018 9:20:00 AM Completed Date: 11/02/2018 09:29 AM Requesting Provider: MAHESH VELEZ Attending Provider: MAHESH VELEZ Report Copy To: Signs & Symptoms: M48.02 Spinal stenosis, cervical region I10 History: [place] Comments: , postop, eval hardware and alignment , Views (X-RAY, CERVICAL SPINE): AP, Lateral, Odontoid , postop, eval hardware and alignment , Views (X-RAY, CERVICAL SPINE): AP, Lateral, Odontoid , , , Ordering Provider - A OVITT MSN STORY READER , Exam: CERVICAL SPINE 2 OR 3 V[facility] CERVICAL SPINE 2 OR 3 V[facility] 11/02/2018 9:29 AM EDT SIGNS AND SYMPTOMS: M48.02 Spinal stenosis, cervical region I10; Post op x 08/23/2018 ortho follow up of C-spine; , postop, eval hardware and alignment , Views (X-RAY, CERVICAL SPINE): AP, Lateral, Odontoid , postop, eval hardware and alignment , Views (X-RAY, CERVICAL SPINE): AP, ...More In Sending slab tripper COMMENTS: Post op x 08/23/2018 ortho follow up of C-spine PROTOCOL: AP, Odontoid and Lateral views were obtained. COMPARISON: August 23, 2018 FINDINGS: Stable appearance of anterior cervical fusion of C4 -C6 with intervertebral disc spacers. Alignment within normal limits. No evidence of hardware fracture. Vertebral body heights are relatively preserved. Disc spaces above and below the pleural effusion are relatively preserved. Facet hypertrophic changes. IMPRESSION: * Stable appearance of anterior cervical fusion hardware. Approved by:Anthony Giron on 11/03/2018 4:49 PM EDT. I, Jeffrey Miles, have reviewed the images and report and concur with these findings. Electronically signed by:Jeffrey Miles. Transcribed by: [email or web address], User Resident: ANTHONY SUNG Electronically Signed by: JEFFREY MILES @ 11/04/2018 04:42 PM I personally read this/these film(s) with this resident Normal [facility] Comment on above: Order Comment: , pos top, eval hardware and alignment , Views (X-RAY, CERVICAL SPINE): AP, Lateral, Odontoid , postop, eval hardware and alignment , Views (X-RAY, CERVICAL SPINE): AP, Lateral, Odontoid , , , Ordering Provider - Jayesh [place] STORY READER , POC GLUCOSE LABon 08-25-2018 Glucose [Mass/Vol] 208 mg/dL High 70-100 [facility] Comment on above: Performed By: #### 5 6101, [id number] #### [facility] [address] [place] [address], [place] Glucose [Mass/Vol] 98 mg/dL Normal 70-100 [facility] Comment on above: Performed By: #### 5 6101, [id number] #### [facility] [address] [place] [address], [place] BASIC METABOLIC PANELon Calcium [Mass/Vol] 7.7 mg/dL Low 8.6-10.3 [facility] Comment on above: Order Comment: No: D o not add to previous draw Performed By: #### 5 0103 #### [facility] [address] [place] [address], [place] Chloride [Moles/Vol] 109 mmol/L High 98-107 [facility] Comment on above: Order Comment: No: D o not add to previous draw Performed By: #### 5 0103 #### [facility] [address] [place] [address], [place] CO2 [Moles/Vol] 24 mmol/L Normal 21-31 The [facility] Comment on above: Order Comment: No: D o not add to previous draw Performed By: #### 5 0103 #### [facility] [address] [place] [address], [place] Creatinine [Mass/Vol] 0.89 mg/dL Normal 0.60-1.20 [facility] Comment on above: Order Comment: No: D o not add to previous draw Performed By: #### 5 0103 #### [facility] [address] [place] [address], [place] GFR/1.73 sq M predicted among blacks MDRD (S/P/Bld) [Vol rate/Area] mL/min/{1.73_m2} Normal >60 [facility] Comment on above: Order Comment: No: D o not add to previous draw Performed By: #### 5 0103 #### [facility] [address] [place] [address], [place] GFR/1.73 sq M predicted among non-blacks MDRD (S/P/Bld) [Vol rate/Area] mL/min/{1.73_m2} Normal >60 [facility] Comment on above: Order Comment: No: D o not add to previous draw Performed By: #### 5 0103 #### [facility] [address] [place] [address], [place] Glucose [Mass/Vol] 94 mg/dL Normal 70-100 [facility] Comment on above: Order Comment: No: D o not add to previous draw Performed By: #### 5 0103 #### [facility] [address] [place] [address], [place] Potassium [Moles/Vol] 3.3 mmol/L Low 3.5-5.1 [facility] Comment on above: Order Comment: No: D o not add to previous draw Performed By: #### 5 0103 #### [facility] [address] [place] [address], [place] Sodium [Moles/Vol] 140 mmol/L Normal 136-145 [facility] Comment on above: Order Comment: No: D o not add to previous draw Performed By: #### 5 0103 #### [facility] [address] [place] [address], [place] Urea nitrogen [Mass/Vol] 11 mg/dL Normal 7-25 [facility] Comment on above: Order Comment: No: D o not add to previous draw Performed By: #### 5 0103 #### [facility] [address] CBC W/DIFFon 08-24-2018 ABS BASOPHILS 0.0 10*3/uL Normal 0.0-0.2 [facility] Comment on above: Order Comment: No: D o not add to previous draw Performed By: #### 5 0103 #### [facility] [address] [facility] [place] [address], [facility] ABS IMM GRANS 0.1 10*3/uL Normal 0.0-0.2 [facility] Comment on above: Order Comment: No: D o not add to previous draw Performed By: #### 5 0103 #### [facility] [address] [place] [address], [facility] ABS NEUTROPHILS 12.5 10*3/uL High 1.6-7.6 The [facility] Comment on above: Order Comment: No: D o not add to previous draw Performed By: #### 5 0103 #### [facility] [address] [facility] [place] [address], [facility] Basophils/100 WBC (Bld) 0.3 % Normal 0.0-1.0 [facility] Comment on above: Order Comment: No: D o not add to previous draw Performed By: #### 5 0103 #### [facility] [address] [facility] [place] [address], [facility] Eosinophils (Bld) [#/Vol] 0.0 10*3/uL Normal 0.0-0.5 [facility] Comment on above: Order Comment: No: D o not add to previous draw Performed By: #### 5 0103 #### [facility] [address] [facility] [place] [id number], [facility] Eosinophils/100 WBC (Bld) 0.0 % Normal 0.0-6.0 [facility] Comment on above: Order Comment: No: D o not add to previous draw Performed By: #### 5 0103 #### [facility] [address] Erythrocyte distribution width (RBC) [Ratio] 13.0 % Normal 11.5-15.0 [facility] Comment on above: Order Comment: No: D o not add to previous draw Performed By: #### 5 0103 #### [facility] [address] [place] [address], [facility] Hematocrit (Bld) [Volume fraction] 31.7 % Low 36.0-45.0 [facility] Comment on above: Order Comment: No: D o not add to previous draw Performed By: #### 5 0103 #### [facility] [address] Hemoglobin (Bld) [Mass/Vol] 10.3 g/dL Low 12.0-15.0 [facility] Comment on above: Order Comment: No: D o not add to previous draw Performed By: #### 5 0103 #### [facility] [address] [facility] [place] [address], [facility] IMMATURE GRANS 0.5 % Normal 0.0-1.0 [facility] Comment on above: Order Comment: No: D o not add to previous draw Performed By: #### 5 0103 #### [facility] [address] [place] [address], [facility] Lymphocytes (Bld) [#/Vol] 1.9 10*3/uL Normal 1.2-4.0 [facility] Comment on above: Order Comment: No: D o not add to previous draw Performed By: #### 5 0103 #### [facility] [address] [place] [address], [facility] Lymphocytes/100 WBC (Bld) 11.9 % Low 20.0-45.0 [facility] Comment on above: Order Comment: No: D o not add to previous draw Performed By: #### 5 3 #### [facility] [address] [facility] [place] [address], [facility] MCH (RBC) [Entitic mass] 31.7 pg Normal 27.0-33.0 [facility] Comment on above: Order Comment: No: D o not add to previous draw Performed By: #### 5 0103 #### [facility] [address] [place] [address], [facility] MCHC (RBC) [Mass/Vol] 32.5 g/dL Normal 32.0-35.0 [facility] Comment on above: Order Comment: No: D o not add to previous draw Performed By: #### 5 0103 #### [facility] [address] [place] [id number], [facility] MCV (RBC) [Entitic vol] 97.5 fL Normal 82.0-98.0 [facility] Comment on above: Order Comment: No: D o not add to previous draw Performed By: #### 5 0103 #### [facility] [address] [place] [id number], [facility] Monocytes (Bld) [#/Vol] 1.2 10*3/uL High 0.1-1.0 [facility] Comment on above: Order Comment: No: D o not add to previous draw Performed By: #### 5 0103 #### [facility] [address] [place] [address], [facility] MONOS 7.7 % Normal 5.0-12.0 [facility] Comment on above: Order Comment: No: D o not add to previous draw Performed By: #### 5 0103 #### [facility] [address] [place] [id number], [facility] Neutrophils/100 WBC (Bld) 79.6 % High 40.0-72.0 [facility] Comment on above: Order Comment: No: D o not add to previous draw Performed By: #### 5 3 #### [facility] [address] [place] [id number], [place] Nucleated RBC/100 WBC (Bld) [Ratio] 0 % Normal 0-0 [facility] Comment on above: Order Comment: No: D o not add to previous draw Performed By: #### 5 0103 #### [facility] [address] [place] [address], [facility] PLAT CNT 263 10*3/uL Normal 150-[address] [facility] Comment on above: Order Comment: No: D o not add to previous draw Performed By: #### 5 0103 #### [facility] [address] [place] [address], [facility] RBC (Bld) [#/Vol] 3.25 10*6/uL Low 3.80-5.00 [facility] Comment on above: Order Comment: No: D o not add to previous draw Performed By: #### 5 0103 #### [facility] [address] [facility] [place] [address], [facility] WBC (Bld) [#/Vol] 15.70 10*3/uL High 4.00-10.60 [facility] Comment on above: Order Comment: No: D o not add to previous draw Performed By: #### 5 0103 #### [facility] [address] [facility] [place] [address], [facility] LIPID PROFILEon 08-24-2018 Cholesterol [Mass/Vol] 128 mg/dL Normal 120-200 [facility] Comment on above: Order Comment: No: D o not add to previous draw Result Comment: CHOL ESTEROL REFERENCE RANGE: 20 YEARS AND OLDER CARDIOVASCULAR RISK Less than 200 mg/dl Low Risk 200 to 239 mg/dl Borderline Risk 240 mg/dl and greater High Risk Performed By: #### 5 0103 #### [facility] [address] [facility] [place] [address], [facility] Cholesterol in HDL [Mass/Vol] 49 mg/dL Normal 23-92 [facility] Comment on above: Order Comment: No: D o not add to previous draw Result Comment: Slig ht variation in normal range could be due to gender and/or age. HDL CHOLESTEROL REFERENCE RANGE: 20 years and older Cardiovascular Risk > or =60 mg/dL Desirable 40 TO 59 mg/dL Low Risk <40 mg/dL High Risk Performed By: #### 5 0103 #### [facility] [address] [place] [address], [place] Cholesterol in LDL [Mass/Vol] 65 mg/dL Normal 0-130 [facility] Comment on above: Order Comment: No: D o not add to previous draw Result Comment: LDL IS A CALCULATION LDL IS ONLY VALID IF THE TRIG IS LESS THAN 400. Performed By: #### 5 0103 #### [facility] [address] [place] [address], [facility] Cholesterol.total/Ch olesterol in HDL [Mass ratio] 2.6 {ratio} Normal .0-4.5 [facility] Comment on above: Order Comment: No: D o not add to previous draw Performed By: #### 5 0103 #### [facility] [address] [place] [address], [place] NON-HDL CHOLESTEROL 79 mg/dL Normal [facility] Comment on above: Order Comment: No: D o not add to previous draw Performed By: #### 5 0103 #### [facility] [address] [place] [address], [place] Triglyceride [Mass/Vol] 69 mg/dL Normal 40-149 [facility] Comment on above: Order Comment: No: D o not add to previous draw Result Comment: TRIG LYCERIDE REFERENCE RANGE: 20 YEARS AND OLDER CARDIOVASCULAR RISK LESS THAN 150 mg/dl LOW RISK 150 TO 199 mg/dl BORDERLINE RISK 200 mg/dl AND GREATER HIGH RISK Performed By: #### 5 0103 #### [facility] [address] [place] [address], [place] VLDL CHOL 14 mg/dL Normal 0-40 [facility] Comment on above: Order Comment: No: D o not add to previous draw Performed By: #### 5 0103 #### [facility] [address] [place] [address], [place] POC GLUCOSE LABon 08-24-2018 Glucose [Mass/Vol] 162 mg/dL High 70-100 [facility] Comment on above: Performed By: #### 5 610, [address] #### [facility] [address] [place] [address], [place] Glucose [Mass/Vol] 146 mg/dL High 70-100 [facility] Comment on above: Performed By: #### 5 610, 195[address] #### [facility] [address] [place] [address], [place] Glucose [Mass/Vol] 213 mg/dL High 70-100 [facility] Comment on above: Performed By: #### 5 610, 837[address] #### [facility] [address] [place] [address], [place] Glucose [Mass/Vol] 81 mg/dL Normal 70-100 [facility] Comment on above: Performed By: #### 5 610, 25149 #### [facility] [address] [place] [address], [place] BASIC METABOLIC PANELon 05-0 Calcium [Mass/Vol] 8.4 mg/dL Low 8.6-10.3 [facility] Comment on above: Order Comment: Yes: Add to Previous draw if able Performed By: #### 5 102 #### [facility] [address] [place] [address], [place] Chloride [Moles/Vol] 103 mmol/L Normal 98-107 [facility] Comment on above: Order Comment: Yes: Add to Previous draw if able Performed By: #### 5 010 #### [facility] [address] [place] [address], [place] CO2 [Moles/Vol] 26 mmol/L Normal 21-31 [facility] Comment on above: Order Comment: Yes: Add to Previous draw if able Performed By: #### 5 0103 #### [facility] [address] [place] [address], [place] Creatinine [Mass/Vol] 1.03 mg/dL Normal 0.60-1.20 [facility] Comment on above: Order Comment: Yes: Add to Previous draw if able Performed By: #### 5 0103 #### [facility] [address] [place] [address], [place] GFR/1.73 sq M predicted among blacks MDRD (S/P/Bld) [Vol rate/Area] mL/min/{1.73_m2} Normal >60 [facility] Comment on above: Order Comment: Yes: Add to Previous draw if able Performed By: #### 5 3 #### [facility] [address] [place] [address], [place] GFR/1.73 sq M predicted among non-blacks MDRD (S/P/Bld) [Vol rate/Area] 54 ml/min/1.73sq m Abnormal >[address] [facility] Comment on above: Order Comment: Yes: Add to Previous draw if able Performed By: #### 5 0103 #### [facility] [address] [place] [address], [place] Glucose [Mass/Vol] 209 mg/dL High 70-100 [facility] Comment on above: Order Comment: Yes: Add to Previous draw if able Performed By: #### 5 0103 #### [facility] [address] [place] [address], [place] Potassium [Moles/Vol] 3.9 mmol/L Normal 3.5-5.1 [facility] Comment on above: Order Comment: Yes: Add to Previous draw if able Performed By: #### 5 3 #### [facility] [address] [place] [address], [place] Sodium [Moles/Vol] 135 mmol/L Low 136-145 [facility] Comment on above: Order Comment: Yes: Add to Previous draw if able Performed By: #### 5 0103 #### [facility] [address] [place] [id number], [facility] Urea nitrogen [Mass/Vol] 16 mg/dL Normal 7-25 [facility] Comment on above: Order Comment: Yes: Add to Previous draw if able Performed By: #### 5 0103 #### [facility] [address] [place] [address], [facility] CBC COMPLETE BLOOD COUNTon - Erythrocyte distribution width (RBC) [Ratio] 12.8 % Normal 11.5-15.0 [facility] Comment on above: Order Comment: Yes: Add to Previous draw if able Performed By: #### 5 0103 #### [facility] [address] [place] [address], [facility] Hematocrit (Bld) [Volume fraction] 35.0 % Low 36.0-45.0 [facility] Comment on above: Order Comment: Yes: Add to Previous draw if able Performed By: #### 5 0103 #### [facility] [address] [place] [address], [facility] Hemoglobin (Bld) [Mass/Vol] 11.2 g/dL Low 12.0-15.0 [facility] Comment on above: Order Comment: Yes: Add to Previous draw if able Performed By: #### 5 0103 #### [facility] [address] [place] [address], [facility] MCH (RBC) [Entitic mass] 31.5 pg Normal 27.0-33.0 [facility] Comment on above: Order Comment: Yes: Add to Previous draw if able Performed By: #### 5 3 #### [facility] [address] [place] [id number], [facility] MCHC (RBC) [Mass/Vol] 32.0 g/dL Normal 32.0-35.0 [facility] Comment on above: Order Comment: Yes: Add to Previous draw if able Performed By: #### 5 0103 #### [facility] [address] [place] [address], [facility] MCV (RBC) [Entitic vol] 98.3 fL High 82.0-98.0 [facility] Comment on above: Order Comment: Yes: Add to Previous draw if able Performed By: #### 5 0103 #### [facility] [address] [place] [address], [facility] Nucleated RBC/100 WBC (Bld) [Ratio] 0 % Normal 0-0 [facility] Comment on above: Order Comment: Yes: Add to Previous draw if able Performed By: #### 5 0103 #### [facility] [address] [place] [address], [facility] PLAT CNT 276 10*3/uL Normal 150-[address] [facility] Comment on above: Order Comment: Yes: Add to Previous draw if able Performed By: #### 5 0103 #### [facility] [address] [place] [address], [facility] RBC (Bld) [#/Vol] 3.56 10*6/uL Low 3.80-5.00 [facility] Comment on above: Order Comment: Yes: Add to Previous draw if able Performed By: #### 5 0103 #### [facility] [address] [place] [address], [facility] WBC (Bld) [#/Vol] 14.61 10*3/uL High 4.00-10.60 [facility] Comment on above: Order Comment: Yes: Add to Previous draw if able Performed By: #### 5 0103 #### [facility] [address] [place] [address], [facility] CERVICAL SPINE 2 OR 3 VWSon 08-23-2018 CERVICAL SPINE 2 OR 3 VWS [facility] Department of Radiology [address] [place] [id number] Patient Name: CRISELDA MORFIN : 1955 Sex: F Age: Race: White Pt. Location: OUTP Patient Status: I Ordered Date: 08/23/2018 9:00:00 AM Completed Date: 08/23/2018 11:29 AM Requesting Provider: DEMETRIS ASKEW Attending Provider: DEMETRIS ASKEW Report Copy To: Signs & Symptoms: C4-C5, C5-C6 ANTERIOR CERVICAL DISCECTOMY WITH FUSION History: C4-C5, C5-C6 ANTERIOR CERVICAL DISCECTOMY WITH FUSION Comments: C4-C5, C5-C6 ANTERIOR CERVICAL DISCECTOMY WITH FUSION Exam: CERVICAL SPINE 2 OR 3 S CERVICAL SPINE 2 OR 3 [facility] 08/23/2018 11:29 AM EDT SIGNS AND SYMPTOMS: C4-C5, C5-C6 ANTERIOR CERVICAL DISCECTOMY WITH FUSION TECHNOLOGIST COMMENTS: C4-C5, C5-C6 ANTERIOR CERVICAL DISCECTOMY WITH FUSION Dr. Askew 15 seconds fluoro time QUESTION FOR THE RADIOLOGIST: C4-C5, C5-C6 ANTERIOR CERVICAL DISCECTOMY WITH FUSION PROTOCOLS: AP, Odontoid and Lateral views were obtained. COMPARISON: None FINDINGS: Multiple spot fluoroscopic images demonstrate anterior and interbody fusion C4 through C6. IMPRESSION: Multiple spot fluoroscopic images demonstrate anterior and interbody fusion C4 through C6. Electronically signed by:Xiomara Nath. Transcribed by: [email or web address], User Resident: Electronically Signed by: XIOMRAA NATH @ 08/23/2018 04:07 PM Normal [facility] Comment on above: Order Comment: C4-C5 , C5-C6 ANTERIOR CERVICAL DISCECTOMY WITH FUSION Operative Reporton 9 Operative Report MR#: [id number] [facility] Pt. Name: Criselda Morfin Room #: 0C Discharge Date: Birthdate: 1955 OPERATIVE REPORT DATE OF SURGERY: 08/23/2018 SURGEON: Demetris Askew M.D. 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 POSTOPERATIVE DIAGNOSIS: Herniated cervical disk and spinal stenosis from C4 through C6. RETAIL VISUAL MERCHANDISER: ELIDIA Castle. ANESTHESIA: Endotracheal, Dr. Falcon. PROCEDURE: Anterior cervical decompression and fusion at C4-5 and C5-6. 1. SSEP. 2. MEP. 3. Fluoroscopy. 4. Microsurgical technique using microscope. 5. Diskectomy, C4-5. 6. Diskectomy, C5-6. 7. Endplate decortication, C4-5 and C5-6. 8. Arthrodesis using bone allograft from C4 through C5. The size is 7. 9. Allograft size 8 between C5 and C6. 10. Plate is a Translational plate, 35 mm. 11. Screws size 14 x 4.0, x6. 12. BERTA. 13. Osteophytectomy. ESTIMATED BLOOD LOSS: Minimal. COMPLICATION: None. OPERATIVE INDICATION: The patient has symptoms of spinal stenosis and cervical radiculopathy with pain symptoms more on the right than the left. MRI disclosed spinal stenosis at multiple levels, worse at C4-5 and C5-6. Risks and benefits explained. Consent obtained for an anterior cervical decompression and fusion between C4 and C6. DESCRIPTION OF PROCEDURE: Under general endotracheal anesthesia in supine position, head in neutral position, all prominent areas were padded. Cervical region was cleaned and prepped in usual fashion. The incision was made in the upper third cervical neck from the midline to the right about 4 cm along the groove. Dissection was carried out above and below the platysma anterior to the sternocleidomastoid. The carotid was palpated and dissection was carried down further to expose the anterior surface of the cervical spine. Lateral spine x-ray was taken to confirm the level of C5-6. This was then followed by exposure of C4-5. Then, after confirming the level with cervical spine x-ray, the TrimLine retractors were placed and the disk space C4-5 and C5-6 were entered with a #15 blade, pituitary rongeur, curettes. The disk at C5-6 was almost totally collapsed. The pituitary rongeur allowed us to remove some of the disk. Then, using the 5 fluted and a high magnification of the microscope, drilling was carried out at the foraminal level at C5-6 and C4-5 bilaterally. Once we reached the ligament posteriorly, the drilling was carried out over the midline at C4-5 and C5-6. Endplate decortication was also carried out at the same juncture as well as a pituitary rongeur was used to remove disk fragments. Diskectomy at C4-5 and C5-6 were completed, foraminotomy bilaterally at C4-5 and C5-6, osteophytectomy bilaterally at C4-5 and C5-6. Once this completed, the decompression achieved, the allograft of bone was brought, size 7 at C4-5 and size 8 at C5-6. The plate was Sipsey, size 35 mm. The screws were 6, size 4 x 14. Once this decompression completed, SSEP remained stable and MEP were normal. The BERTA was brought in and placed and closure was carried out in usual fashion. The patient tolerated the procedure well. Electronically Signed by: Demetris Askew M.D. 09/07/2018 04:43 P Demetris Askew M.D. Date Dict: 08/23/2018/12:00 P/Demetris Askew M.D. Date Trans: 08/23/2018 01:26 P/kari GERARDO_[id number] Normal [facility] POC GLUCOSE LABon 08-23-2018 Glucose [Mass/Vol] 157 mg/dL High 70-100 [facility] Comment on above: Performed By: #### 5 0103 #### [facility] [address] [place] [address], [facility] Glucose [Mass/Vol] 190 mg/dL High 70-100 The [facility] Comment on above: Performed By: #### 5 0103 #### [facility] [address] [place] [address], [facility] Glucose [Mass/Vol] 182 mg/dL High 70-100 [facility] Comment on above: Performed By: #### 5 0103 #### [facility] [address] [place] [address], [place] Glucose [Mass/Vol] 94 mg/dL Normal 70-100 [facility] Comment on above: Performed By: #### 5 0103 #### [facility] [address] [facility] [place], [place] [address] *MRSA/MSSA DNA NASALon 08-08 *MRSA/MSSA DNA NASAL Clinical Report: (D ) Specimen: NASAL SWAB Collected: 08/08/2018 15:04 Status: Final Last Updated: 08/08/2018 20:45 MSSA DNA (Final) Negative MRSA DNA (Final) Negative Normal [facility] Comment on above: Performed By: #### 3 1595 #### [facility] [address] [facility] [place] [address], [facility] *URINE CULTUREon 08-08-2018 Bacteria identified Cx Nom (U) Clinical Report: (D) Specimen: URINE Collected: 08/08/2018 15:04 Status: Final Last Updated: 08/11/2018 09:23 ISO (Final) Presumptive Citrobacter amalonaticus complex >100,000 Cfu/Ml ISO (Final) Proteus mirabilis 10,000 - 50,000 Cfu/Ml ISOLATE: ISOLATE: Citrobacter amalonaticus Proteus mirabilis complex ---- ---- TUCKER (mcg/ml) AMP./SULBAC (AMS) 4/2 Susceptible <=1/0.5 Susceptible AMPICILLIN (AM) >16 Resistant <=2 Susceptible AZTREONAM (AZM) <=1 Susceptible AZTREONAM (AZM) <=1 Susceptible CEFAZOLIN (CZ) 2 Susceptible 4 Susceptible CEFTRIAXONE (MANAGER PACU) <=0.5 Susceptible <=0.5 Susceptible CIPROFLOXACIN (CIP) <=0.5 Susceptible <=0.5 Susceptible GENTAMICIN (GM) 1 Susceptible 4 Susceptible MEROPENEM (MEM) <=0.125 Susceptible NITROFURANTOIN (FT) 32 Susceptible >64 Resistant PIP/TAZO (TZP) 4/4 Susceptible PIP/TAZO (TZP) <=2/4 Susceptible TOBRAMYCIN (TOB) 1 Susceptible 2 Susceptible TRIMETH/SULFA (SXT) <=0.5/9.5 Susceptible <=0.5/9.5 Susceptible Antibiotic Summary Grid: AMS AM AZM CZ MANAGER PACU CIP GM MEM FT TZP TOB Citrobacter S R S S S S S S S S S amalonaticus complex Proteus mirabilis S S S S S S S R S S SXT Citrobacter S amalonaticus complex Proteus mirabilis S Normal [facility] Comment on above: Performed By: #### 3 0339 #### [facility] [address] APTTon 08-08-2018 aPTT Coag (Bld) [Time] 28.0 s Normal 25.0-35.0 [facility] Comment on above: Result Comment: ALL RESULTS MUST BE INTERPRETED WITH RESPECT TO BLOOD DRAWING ARTIFACT OR DILUTION ERROR OF ANTICOAGULANT AT THE TIME OF SAMPLING. THE APTT SHOULD NOT BE USED TO MONITOR UNFRACTIONATED HEPARIN THERAPY, THIS LABORATORY NO LONGER HAS AN ESTABLISHED THERAPEUTIC RANGE BASED ON THE APTT. IT IS RECOMMENDED THAT THE UFH - HEPARIN ASSAY (ANTI-XA ACTIVITY) BE USED FOR THIS PURPOSE. Performed By: #### 5 6101, [id number] #### [facility] [address] BASIC METABOLIC PANELon - Calcium [Mass/Vol] 9.6 mg/dL Normal 8.6-10.3 [facility] Comment on above: Performed By: #### 0 0071 #### [facility] [address] [place] [address], [place] Chloride [Moles/Vol] 103 mmol/L Normal 98-107 [facility] Comment on above: Performed By: #### 0 0071 #### [facility] [address] [place] [address], [place] CO2 [Moles/Vol] 30 mmol/L Normal 21-31 [facility] Comment on above: Performed By: #### 0 0071 #### [facility] [address] [place] [address], [place] Creatinine [Mass/Vol] 1.07 mg/dL Normal 0.60-1.20 [facility] Comment on above: Performed By: #### 0 0071 #### [facility] [address] [place] [address], [place] GFR/1.73 sq M predicted among blacks MDRD (S/P/Bld) [Vol rate/Area] mL/min/{1.73_m2} Normal >60 [facility] Comment on above: Performed By: #### 0 0071 #### [facility] [address] [place] [address], [place] GFR/1.73 sq M predicted among non-blacks MDRD (S/P/Bld) [Vol rate/Area] 52 ml/min/1.73sq m Abnormal >60 [facility] Comment on above: Performed By: #### 0 0071 #### [facility] [address] [place] [address], [place] Glucose [Mass/Vol] 93 mg/dL Normal 70-100 [facility] Comment on above: Performed By: #### 0 0071 #### [facility] [address] [place] [address], [place] Potassium [Moles/Vol] 4.2 mmol/L Normal 3.5-5.1 [facility] Comment on above: Performed By: #### 0 0071 #### [facility] [address] [place] [address], [facility] Sodium [Moles/Vol] 139 mmol/L Normal 136-145 [facility] Comment on above: Performed By: #### 0 0071 #### [facility] [address] Urea nitrogen [Mass/Vol] 18 mg/dL Normal 7-25 [facility] Comment on above: Performed By: #### 0 0071 #### [facility] [address] CBC W/DIFFon 08-08-2018 ABS BASOPHILS 0.1 10*3/uL Normal 0.0-0.2 The [facility] Comment on above: Performed By: #### 5 0103 #### [facility] [address] ABS IMM GRANS 0.0 10*3/uL Normal 0.0-0.2 The [facility] Comment on above: Performed By: #### 5 3 #### [facility] [address] ABS NEUTROPHILS 5.0 10*3/uL Normal 1.6-7.6 The [facility] Comment on above: Performed By: #### 5 3 #### [facility] [address] [place] [address], [facility] Basophils/100 WBC (Bld) 0.9 % Normal 0.0-1.0 The [facility] Comment on above: Performed By: #### 5 102 #### [facility] [address] [place] [address], [facility] Eosinophils (Bld) [#/Vol] 0.2 10*3/uL Normal 0.0-0.5 The [facility] Comment on above: Performed By: #### 5 0103 #### [facility] [address] [place] [address], [facility] Eosinophils/100 WBC (Bld) 1.8 % Normal 0.0-6.0 The [facility] Comment on above: Performed By: #### 5 0103 #### [facility] [address] Erythrocyte distribution width (RBC) [Ratio] 13.1 % Normal 11.5-15.0 [facility] Comment on above: Performed By: #### 5 0103 #### [facility] [address] [facility] [address], [facility] Hematocrit (Bld) [Volume fraction] 37.2 % Normal 36.0-45.0 The [facility] Comment on above: Performed By: #### 5 0103 #### [facility] [address] [facility] [place] [address], [facility] Hemoglobin (Bld) [Mass/Vol] 12.3 g/dL Normal 12.0-15.0 [facility] Comment on above: Performed By: #### 5 0103 #### [facility] [address] [place] [address], [facility] IMMATURE GRANS 0.5 % Normal 0.0-1.0 [facility] Comment on above: Performed By: #### 5 0103 #### [facility] [address] [place] [address], [facility] Lymphocytes (Bld) [#/Vol] 2.2 10*3/uL Normal 1.2-4.0 The [facility] Comment on above: Performed By: #### 5 3 #### [facility] [address] [place] [address], [facility] Lymphocytes/100 WBC (Bld) 26.5 % Normal 20.0-45.0 [facility] Comment on above: Performed By: #### 5 0103 #### [facility] [address] [place] [address], [facility] MCH (RBC) [Entitic mass] 31.4 pg Normal 27.0-33.0 [facility] Comment on above: Performed By: #### 5 0103 #### [facility] [address] [place] [address], [facility] MCHC (RBC) [Mass/Vol] 33.1 g/dL Normal 32.0-35.0 [facility] Comment on above: Performed By: #### 5 0103 #### [facility] [address] [facility] [place] [address], [facility] MCV (RBC) [Entitic vol] 94.9 fL Normal 82.0-98.0 [facility] Comment on above: Performed By: #### 5 0103 #### [facility] [address] [facility] [place] [address], [facility] Monocytes (Bld) [#/Vol] 0.7 10*3/uL Normal 0.1-1.0 The [facility] Comment on above: Performed By: #### 5 3 #### [facility] [address] [place] [address], [facility] MONOS 8.3 % Normal 5.0-12.0 [facility] Comment on above: Performed By: #### 5 0103 #### [facility] [address] [place] [address], [facility] Neutrophils/100 WBC (Bld) 62.0 % Normal 40.0-72.0 [facility] Comment on above: Performed By: #### 5 3 #### [facility] [address] [place] [address], [facility] Nucleated RBC/100 WBC (Bld) [Ratio] 0 % Normal 0-0 [facility] Comment on above: Performed By: #### 5 3 #### [facility] [address] [facility] [address] PLAT CNT 325 10*3/uL Normal 150-[address] [facility] Comment on above: Performed By: #### 5 0103 #### [facility] [address] [place] [address], [facility] RBC (Bld) [#/Vol] 3.92 10*6/uL Normal 3.80-5.00 The [facility] Comment on above: Performed By: #### 5 0103 #### [facility] [address] [place] [address], [facility] WBC (Bld) [#/Vol] 8.12 10*3/uL Normal 4.00-10.60 [facility] Comment on above: Performed By: #### 5 0103 #### [facility] [address] CERVICAL SPINE 4 OR 5 VIEWSo n 08-08-2018 CERVICAL SPINE 4 OR 5 VIEWS [facility] Department of Radiology [address] [place] [id number] Patient Name: CRISELDA MORFIN : 1955 Sex: F Age: Race: White Pt. Location: Patient Status: O Ordered Date: 08/08/2018 2:25:00 PM Completed Date: 08/08/2018 02:48 PM Requesting Provider: DEMETRIS ASKEW Attending Provider: DEMETRIS ASKEW Report Copy To: DEMETRIS ASKEW Signs & Symptoms: M48.02 Spinal stenosis, cervical region I10 History: Sariah Comments: , POST OP XRAY AP/LAT ONLY , POST OP XRAY AP/LAT ONLY , , , Ordering Provider - DEMETRIS ASKEW MD , Exam: CERVICAL SPINE 4 OR 5 VIEWS CERVICAL SPINE 4 OR 5 VIEWS 08/08/2018 2:48 PM EDT SIGNS AND SYMPTOMS: M48.02 Spinal stenosis, cervical region I10 TECHNOLOGIST COMMENTS: Neck pain Surgery scheduled for August 2018 QUESTION FOR THE RADIOLOGIST: , POST OP XRAY AP/LAT ONLY , POST OP XRAY AP/LAT ONLY , , , Ordering Provider - DEMETRIS ASKEW MD , PROTOCOLS: AP,Odontoid, Lateral, Flexion and Extension views. AP,Odontoid,Lateral and Bilateral Oblique views were obtained. COMPARISON: No prior FINDINGS: Straightening of normal cervical lordosis. Severe intervertebral disc space narrowing C5-C6 with anterior and posterior osteophyte formation. Facet arthritic changes most pronounced at C5-C6. No prevertebral soft tissue swelling atlantodental distance normal facet alignment normal. Spinous processes intact. No change in alignment with flexion or extension views. IMPRESSION: Severe degenerative changes in the cervical spine at the C5-C6 level Electronically signed by:Xiomara Nath. Transcribed by: [id number], User Resident: Electronically Signed by: XIOMARA NATH @ 08/08/2018 03:24 PM Normal The [facility] Comment on above: Order Comment: , POS T OP XRAY AP/LAT ONLY , POST OP XRAY AP/LAT ONLY , , , Ordering Provider - DEMETRIS ASKEW MD , HEMOGLOBIN A1Con 08-08-2018 HbA1c (Bld) [Mass fraction] 154 mg/dL High 70-126 The [facility] Comment on above: Performed By: #### 4 6447 #### [facility] [address] HbA1c (Bld) [Mass fraction] 7.0 % High 4.0-6.0 [facility] Comment on above: Performed By: #### 4 6447 #### [facility] [address] PROTHROMBIN TIMEon 9 INR Coag (PPP) [Relative time] 0.93 {INR} Normal 0.91-1.16 The [facility] Comment on above: Result Comment: ACCC P RECOMMENDED INR FOR WARFARIN THERAPY ------- ------- CONDITION INR PROPHYLAXIS OF VENOUS THROMBOSIS 2-3 (HIGH-RISK SURGERY) TREATMENT OF VENOUS THROMBOSIS 2-3 TREATMENT OF PULMONARY EMBOLISM 2-3 PREVENTION OF SYSTEMIC EMBOLISM: 2-3 ACUTE MYOCARDIAL INFARCTION TISSUE HEART VALVES VALVULAR HEART DISEASE ATRIAL FIBRILLATION RECURRENT SYSTEMIC EMBOLISM MECHANICAL HEART VALVE 2.5-3.5 FROM: ORAL ANTICOAGULANTS. MECHANISM OF ACTION, CLINICAL EFFECTIVENESS, AND OPTIMAL THERAPEUTIC RANGE. CHEST 1995;108:231S-246S. Performed By: #### 5 6101, [id number] #### [facility] [address] [place] [address], [facility] PT Coag (PPP) [Time] 12.5 s Normal 12.3-14.8 The [facility] Comment on above: Result Comment: ALL RESULTS MUST BE INTERPRETED WITH RESPECT TO BLOOD DRAWING ARTIFACT OR DILUTION ERROR OF ANTICOAGULANT AT THE TIME OF SAMPLING. Performed By: #### 5 6101, [id number] #### [facility] [address] [place] [address], [place] TYPE AND CROSSMATCHon 2018 ABO INTERPRETATION O Normal The [facility] Comment on above: Performed By: #### 6 2594 #### [facility] [address] [place] [address], [place] RH INTERPRETATION Positive Normal The [facility] Comment on above: Performed By: #### 6 2594 #### [facility] [address] [place] [address], [place] URINALYSIS REFLEXon 08-09-19 19 Appearance (U) CLEAR Normal CLEAR The [facility] Comment on above: Performed By: #### 3 0965 #### [facility] [address] [place] [address], [place] Bilirubin [Mass/Vol] Negative Normal NEGATIVE The [facility] Comment on above: Performed By: #### 3 0965 #### [facility] [address] [place] [address], [place] BLOOD Negative Normal NEGATIVE The [facility] Comment on above: Performed By: #### 3 0965 #### [facility] [address] [place] [address], [place] Color (U) STRAW Abnormal YELLOW The [facility] Comment on above: Performed By: #### 3 0965 #### [facility] [address] [place] [address], [place] EPIS NONE SEEN Normal FEW,OCC,NONE SEEN [facility] Comment on above: Performed By: #### 3 0965 #### [facility] [address] [place] [address], [place] Glucose [Mass/Vol] Negative Normal NEGATIVE The [facility] Comment on above: Performed By: #### 3 0965 #### [facility] [address] [place] [address], [place] KETONE Negative Normal NEGATIVE The [facility] Comment on above: Performed By: #### 3 0965 #### [facility] [address] [facility] [place] [address], [facility] LEUK ALVARADO TRACE Abnormal NEGATIVE [facility] Comment on above: Performed By: #### 3 0965 #### [facility] [address] [facility] [place] [address], [facility] Nitrite Ql (U) Negative Normal NEGATIVE The [facility] Comment on above: Performed By: #### 3 0965 #### [facility] [address] [place] [address], [facility] pH (Bld) 6.0 Normal 5.0-8.0 [facility] Comment on above: Performed By: #### 3 0965 #### [facility] [address] [place] [address], [facility] Protein (U) [Mass/Vol] Negative Normal NEGATIVE The [facility] Comment on above: Performed By: #### 3 0965 #### [facility] [address] [place] [address], [facility] RBC (U) [#/Vol] 0-2 Abnormal NONE SEEN The [facility] Comment on above: Performed By: #### 3 0965 #### [facility] [address] [place] [address], [facility] SPEC GRAV 1.011 Low 1.015-1.[address] [facility] Comment on above: Performed By: #### 3 0965 #### [facility] [address] [place] [address], [facility] WBC UA 0-2 Abnormal NONE SEEN [facility] Comment on above: Performed By: #### 3 0965 #### [facility] [address] Vital Signs Date Time Vital Sign Value Performing Clinician Facility 09-24-2022 08:10-0400 Body height 149.86 cm Rin Checobaljit Other [facility] Other 09-24-2022 08:10-0400 Body mass index (BMI) [Ratio] 29.89 kg/m2 Rin Nicholson Other [facility] Other 09-24-2022 08:10-0400 Body temperature 98.6 [degF] Rin Nicholson Other [facility] Other 09-24-2022 08:10-0400 Body weight 67.13 kg Rin Nicholson Other [facility] Other 09-24-2022 08:10-0400 Diastolic blood pressure 84 mm[Hg] Rin Nicholson Other [facility] [employer] [facility] Other 09-24-2022 08:10-0400 Respiratory rate 18 /min Rin Checobaljit Other [facility] Other 09-24-2022 08:10-0400 SaO2% (BldA) [Mass fraction] 97 % Rin Checobaljit Other [facility] Other 09-24-2022 08:10-0400 Systolic blood pressure 126 mm[Hg] Rin Nicholson Other [facility] Other 08-09-2022 18:20-0400 Body height 149.86 cm Rin Nicholson Other [facility] Other 08-09-2022 18:20-0400 Body mass index (BMI) [Ratio] 29.89 kg/m2 Rin Nicholson Other [facility] [employer] [facility] Other 08-09-2022 18:20-0400 Body temperature 98.2 [degF] Rin Nicholson Other [facility] Other 08-09-2022 18:20-0400 Body weight 67.13 kg Rin Nicholson Other [facility] [employer] [facility] Other 08-09-2022 18:20-0400 Diastolic blood pressure 78 mm[Hg] Rin Nicholson Other [facility] [employer] [facility] Other 08-09-2022 18:20-0400 Respiratory rate 16 /min Rin Nicholson Other [facility] [employer] [facility] Other 08-09-2022 18:20-0400 SaO2% (BldA) [Mass fraction] 98 % Rin Nicholson Other [facility] Other 08-09-2022 18:20-0400 Systolic blood pressure 136 mm[Hg] Rin Nicholson Other [facility] Other 02-08-2022 18:00-0400 Body height 149.86 cm Rin Nicholson Other [facility] [employer] [facility] Other 02-08-2022 18:00-0400 Body mass index (BMI) [Ratio] 28.98 kg/m2 Rin Nicholson Other [facility] Other 02-08-2022 18:00-0400 Body temperature 98.1 [degF] Rin Nicholson Other [facility] [employer] [facility] Other 02-08-2022 18:00-0400 Body weight 65.09 kg Rin Nicholson Other [facility] [employer] [facility] Other 02-08-2022 18:00-0400 Diastolic blood pressure 80 mm[Hg] Rin Nicholson Other [facility] Other 02-08-2022 18:00-0400 Respiratory rate 16 /min Rin Nicholson Other [facility] [facility] Other 02-08-2022 18:00-0400 SaO2% (BldA) [Mass fraction] 99 % Rin Lyn Other [facility] Other 02-08-2022 18:00-0400 Systolic blood pressure 136 mm[Hg] Rin Nicholson Other [employer] Other Encounters Encounter Date Encounter Type Care Provider Facility Start: 05-03-2023 End: 05-03-2023 ambulatory Rin Nicholson Facility:[facility] Start: 05-03-2023 [facility] Start: 05-03-2023 End: 05-03-2023 ambulatory DO Rin Nicholson Work Phone: [facility] Work Phone: Start: 05-03-2023 End: 05-03-2023 Patient encounter procedure DO Rin Nicholson Work Phone: [facility] Work Phone: Start: 04-12-2023 End: 04-12-2023 ambulatory Rin Nicholson Other [employer] Other Start: 04-12-2023 Telephone encounter Rin Nicholson [employer] Start: 04-04-2023 End: 04-04-2023 ambulatory Rin Nicholson Other [employer] Other Start: 04-04-2023 Telephone encounter Rin Nicholson [employer] [facility] [place] Start: 03-21-2023 End: 03-21-2023 ambulatory Rin Nicholson Other [employer] Other Start: 03-21-2023 Telephone encounter Rin Nicholson [facility] Start: 02-23-2023 End: 02-23-2023 ambulatory Rin Nicholson Other [employer] Other Start: 02-23-2023 Telephone encounter Rin Nicholson [employer] [facility] [place] Start: 09-24-2022 End: 09-24-2022 ambulatory Rin Nicholson Other [employer] Other Start: 09-24-2022 Office outpatient vi sit 15 minutes Rin Nicholson [employer] [facility] [place] Start: 08-30-2022 End: 08-31-[address] RIN NICHOLSON Facility:[facility]1 Start: 08-17-2022 End: 08-17-2022 ambulatory Rin Nicholson Other [employer] Other Start: 08-17-2022 Telephone encounter Rin Nicholson [employer] [facility] [employer] [facility] [place] Start: 08-16-2022 End: 08-17-[address] RIN NICHOLSON Facility:[facility] Start: 08-09-2022 End: 08-09-2022 ambulatory Rin Nicholson Other [employer] Other Start: 08-09-2022 Office outpatient vi sit 25 minutes Rin Nicholson [employer] [facility] [place] Start: 08-06-2022 End: 08-06-2022 ambulatory Rin Nicholson Other [employer] Other Start: 08-06-2022 Telephone encounter Rin Nicholson [employer] [facility] [place] Start: 07-31-2022 End: 08-01-[address] RIN NICHOLSON Facility:[facility] Start: 06-04-2022 End: 06-04-2022 ambulatory Rin Nicholson Other [employer] Other Start: 06-04-2022 Telephone encounter Rin Nicholson [employer] [facility] [place] Start: 05-24-2022 End: 05-24-2022 ambulatory Rin Nicholson Other [employer] Other Start: 05-24-2022 Telephone encounter Rin Nicholson [facility] Start: 05-14-2022 End: 05-14-2022 ambulatory Rin Nicholson Other [employer] Other Start: 05-14-2022 Telephone encounter Rin Nicholson [facility] Start: 04-30-2022 End: 04-30-[address] BETTINA MULLIGAN . Facility:[facility] Start: 04-22-2022 End: 04-22-2022 ambulatory Rin Nicholson Other [employer] Other Start: 04-22-2022 Telephone encounter Rin Nicholson [facility] Start: 03-29-2022 End: 03-29-2022 ambulatory Rin Nicholson Other [employer] Other Start: 03-29-2022 Telephone encounter Rin Nicholson [facility] Start: 03-27-2022 End: 03-28-[address] RIN NICHOLSON Facility:[facility] Start: 02-08-2022 End: 02-08-2022 ambulatory Rin Nicholson Other [employer] Other Start: 02-08-2022 Office outpatient vi sit 25 minutes Rin Nicholson [facility] Start: 01-22-2022 End: 01-23-[address] RIN NICHOLSON Facility:[facility] Start: 08-23-2018 End: 08-25-2018 Evaluation and management of inpatient PROVIDER UNKNOWN Facility:[facility] Start: 05-11-2018 Patient encounter procedure Selin Jean Facility:[id number] Start: 05-08-2018 Patient encounter procedure Selin Jean Facility:[id number] Start: 10-06-2017 Patient encounter procedure Selin Jean Facility:[id number] Procedures Date Procedure Procedure Detail Performing Clinician Start: 05-03-2023 Screening mammograph y of bilateral breasts DO Rin Nicholson Work Phone: Start: 08-23-2018 FUSION 2-6 C JT W NO NAUT SUB, ANT APPR A COL, OPEN AZEDINE MEDHKOUR Start: 08-23-2018 RESECTION OF CERVICA L VERTEBRAL DISC, OPEN APPROACH DEMETRIS GRAFFJHONY Start: 08-08-2018 Antibody screen PROVIDE R UNKNOWN Comment on above: Performed By: #### [id number] #### [facility] [address] [address], [facility] Immunizations Immunization Date Immunization Notes Care Provider Fa hunter 04-26-2023 Prevnar 20 Rin Nicholson Other [employer] Other 04-08-2023 COVID-19 Moderna (SPIKEVAX) Rin Nicholson Other [employer] Other 04-08-2023 zoster vaccine recombinant Rin Nicholson Other [employer] Other 03-22-2023 Flu Shot - Documentation Purposes Only Rin Nicholson Other [employer] Other 02-08-2022 Shingrix 50 MCG/0.5M L; 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: [Shingrix 50 MCG/0.5ML] Rin Nicholson Other [employer] Other 01-15-2022 influenza, seasonal, injectable Rin Nicholson Other [employer] Other 01-15-2022 COVID-19 Pfizer (bivalent) Rin Nicholson Other [employer] Other 07-31-2021 COVID-19 Vaccine Moderna - Documentation Purposes Only Rin Nicholson Other [employer] Other 02-20-2021 COVID-19 Vaccine Moderna - Documentation Purposes Only Rin Nicholson Other [employer] Other 07-26-2020 COVID-19 Moderna Rin koenig Other [employer] Other 06-28-2020 COVID-19 Moderna Rin Romero n Other [employer] Other 02-18-2020 influenza, seasonal, injectable Rin Nicholson Other [employer] Other 02-19-2017 influenza, seasonal, injectable Rin Nicholson Other [employer] Other 03-08-2016 influenza, seasonal, injectable Rin Nicholson Other [employer] Other 05-07-2013 influenza virus vaccine, split virus (incl. purified surface antigen) Rin Nicholson Other [employer] Other 03-24-2012 influenza, seasonal, injectable, preservative free Rin Nicholson Other [employer] Other Payers Date Payer Category Payer Self-pay [id number] 2023 Unknown [id number] 2022 Medicare [id number] 2.1 [id number] 1959 Unknown [id number] 1955 Unknown [id number] 2.16. [id number] 1955 Unknown [id number] 2.16. [id number] 1955 Unknown [id number] 2.16. [id number] 1955 Unknown [id number] 2.16. [id number] 1955 Unknown [id number] 2.16.8 [id number] 1955 Unknown [id number] 2.16.84 [id number] 1955 Unknown [id number] 2.16.84 [id number] 1955 Unknown [id number] 2.16.84 [id number] 1955 Unknown [id number] 2.16.84 [id number] 1955 Unknown [id number] 2.16.84 [id number] 1955 Unknown [id number] 2.16.84 [id number] Unknown 568 Unknown [id number] 2.16.8 [id number] Social History Date Type Detail Facility Unknown if ever smoked [employer] Other Sex Assigned At Sex Assigned At Bir th [employer] Other Start: 1955 Sex Assigned At Female F [facility] Start: 06-02-2020 Tobacco smoking status WAIS Never smoked tobacco (finding) [facility] Medical Equipment Procedure Code Equipment Code Equipment Origin al Text Equipment Identifier Dates One Touch Lancet s lancets Start: 12-24-2011 Clinical Notes 02-11-2019 to 05-03-2023 Note Date & Type Note Facility 05-03-2023 Evaluation note Encounter Date Diagnosis Assessment Notes Apr, GERD (gastroesop hageal reflux disease) (ICD-10 - K21.9) [employer] Other 2023 Evaluation note* Encounter Date Diagnosis Assessment Notes Treatment Notes Treatment Clinical Notes Mar, Abnormal blood chemistry (ICD-10 - R79.9) Mar, Hypercalcemia (ICD-1 0 - E83.52) Mar, Stage 3a chronic kidney disease (ICD-10 - N18.31) [employer] Other 06-09-2023 Evaluation note* Encounter Date Diagnosis Assessment Notes Treatment Notes Treatment Clinical Notes Sep, Diabetes mellitus, type 2 (ICD-10 - E11.9) She voices that she is taking 1/2 tablet of her Metformin dose daily (500 MG) and she feels that the medication is working well for her. She is able to stay well hydrated with water daily and is not having any diarrhea. She continues with the Pioglitazone daily as well. We did discuss her kidney studies and the concern with how the medication can irritate the kidneys. I would like to recheck her kidney studies at this time and see where they are at. If the half dose is affecting her kidney studies then I would like to treat her with a low dose of Januvia. She does not want to change medications. She voices that the diarrhea she had with the Metformin (higher dose) prevented her from drinking water and now she is able to drink plenty of water daily. She is checking her blood sugar daily and her readings are good. There are two other options that are cheaper than Januvia that we could consider if needed. Sep, Other abnormal blood chemistry (ICD-10 - R79.89) Will repeat lab today to see where her kidney studies are at. [facility] Other 04-24-2023 Evaluation note* Encounter Date Diagnosis Assessment Notes Treatment Notes Treatment Clinical Notes Jul, Hyperlipidemia (ICD-10 - E78.5) Discussed cholesterol results with patient today. Total is 166. HDL is 57. LDL is 91.4. Triglycerides are 88. VLDL is 17.6. Encouraged her to continue with above medication daily. Watch intake of carbs and sugars. Stay active. Jul, Diabetes mellitus, type 2 (ICD-10 - E11.9) Discussed blood sugar results with patient today. Glucose is 102. HgA1C is up from 6.4 to 6.5. Because of her kidney studies I am going to stop the Metformin. I highly encouraged her to watch her intake of carbs and sugars to help keep her A1C level good. If her kidney studies improve then we may place her on a low dose of Metformin. Jul, Other abnormal blood chemistry (ICD-10 - R79.89) We discussed that her kidney studies are abnormal and this is likely caused by the Meloxicam. She admits she was taking it quite often because of her right shoulder pain but most recently she has not been taking it as much. Her BUN is 21.0. Creatinine is 1.48. EGFR is 35. She saw Dr. Cm in 2020 and did not need to see him again unless needed. Because of her kidney studies she needs to stop taking the Meloxicam and continue to stay well hydrated with plenty of water daily. Recommend she drink 2 liters of water daily. She needs to avoid all NSAID medications because they all will irritate her kidneys. In one week (08-16-22) she is to have lab repeated. Call for results. She may have to see the audit manager again but we will wait and see what her kidney studies show next week when she has these rechecked. Jul, Hypertension (ICD-10 - I10) For now she is to continue with the above medications daily as directed. Jul, Anemia (ICD-10 - D64.9) She is anemic at this time but this is likely due to her abnormal kidney studies. Her HGB has gone down from 12.4 to 11.5. Jul, GERD (gastroesophageal reflux disease) (ICD-10 - K21.9) Continue with above medication daily as directed. Jul, Vitamin B12 deficiency (ICD-10 - E53.8) Her Vitamin B12 level is 600. Her Folate is >20.0. Jul, Weight gain (ICD-10 - R63.5) Her TSH is 2.298 at this time. Jul, Shoulder pain, right (ICD-10 - M25.511) She takes the Meloxicam for her shoulder. At this time due to her kidney studies she needs to stop the Meloxicam. She will have to discuss what she can take for her shoulder with Dr. Cornejo. Do not use OTC products such as Aspercreme or Voltaren because this can absorb in the skin and irritate the kidneys. She can ice the shoulder or alternate with heat. [employer] Other 01-05-2023 Evaluation note* Encounter Date Diagnosis Assessment Notes Treatment Notes Treatment Clinical Notes Apr, Hypertension (ICD-10 - I10) [employer] Other 10-24-2022 Evaluation note* Encounter Date Diagnosis Assessment Notes Treatment Notes Treatment Clinical Notes Jan, Hyperlipidemia (ICD-10 - E78.5) Discussed cholesterol results with patient today. Total is 165. HDL is 66. LDL is 87.8. Triglycerides are 56. VLDL is 11.2. She is encouraged to conitnue with above medication. Watch intake of carbs and sugars. Stay active. Jan, Diabetes mellitus, type 2 (ICD-10 - E11.9) Discussed blood sugar results with patient today. Glucose is 141. HgA1C is down to 6.4. She is to continue to monitor her intake of carbs and sugars. Stay active. Continue with above medications. She voices that she gave up tamales. Jan, Hypertension (ICD-10 - I10) Blood pressure is controlled, continue with above medication. Jan, Anemia (ICD-10 - D64.9) Jan, Other abnormal blood chemistry (ICD-10 - R79.89) She has been taking Ibuprofen for her right shoulder pain for about a month, alternating with Tylenol. I did advise her that her kidneys do not like Ibuprofen and I suspect this is why her kidney studies are abnormal. Her BUN is 19. Creatinine is 1.17. EGFR is 46. I did recommend that she stay well hydrated daily with plenty of water. I would like her to stop taking Ibuprofen and instead continue with the Tylenol if needed. I would like to repeat lab in February-early March (2021). She can call for results. Jan, Shoulder pain, right (ICD-10 - M25.511) She had right shoulder surgery ten years ago per Dr. Aggarwal who has since retired. I did advise her that Dr. Cornejo or Viki are still available. I would like her to see someone about her shoulder. She voices that the original injury was a workers comp injury but it and the claim has closed. This is not a work injury so she can see ortho for this. She does agree to see an counseling specialist. A referral is provided. Her range of motion is similar to what it was but it is painful. She is right hand dominant. Jan, Vitamin B12 deficiency (ICD-10 - E53.8) Her Vitamin B12 level is 786. Folate is 21.80. She is to continue with the B12 vitamins. 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 Jean any longer unless needed. Dr. Jean felt that this office could order her mammogram for her. Will provide her with an order to have this done at her next appointment in six months, she is due in August (2022) Jan, GERD (gastroesophageal reflux disease) (ICD-10 - K21.9) Continue with above medication daily as directed. Jan, Nocturia (ICD-10 - R35.1) Jan, Weight gain (ICD-10 - R63.5) Jan, Other Provided her wi th an order for a Shingrix vaccine [employer] Other 01-19-2021 History general Narrative - Reported* Type Description Date Medical History Stress Test; [facility], normal per patient Medical History Pap and Pelvic 3 yea rs ago, OBGYN in [place] Medical History Mammogram over 5 yea rs; Normal at that time per patient Medical History CT Abdomen and Pelvi s over 5 years ago; [facility] Medical History Colonoscopy 8 years ago; in [place], normal in patient Medical History Chest X-Ray 12-15-11; normal, [facility] Medical History Echocardiogram; 12-15; [facility] Medical History Cardiolite Stress Te st 12-16-11; [facility] Medical History Check's sugar's bid Medical History Heart Catherization; 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 Misha Jamison 05/2014 and 06/2014 Surgical History Colonoscopy, Dr. Sourav carrillo- Needs repeat in 2025 / Diverticulosis 06-17-15 Surgical History Lithotripsy for a kidney stone Surgical History mammogram [facility]/2017 Surgical History vertabrae fusion 08/2018 Hospitalization History ovarian tumor removed an d left overy Hospitalization History complete hysterectomy 19 94 [employer] Other 12-27-2020 History general Narrative - Reported* Type Description Date Medical History Stress Test; [facility], normal per patient Medical History Pap and Pelvic 3 yea rs ago, OBGYN in [place] Medical History Mammogram over 5 yea rs; Normal at that time per patient Medical History CT Abdomen and Pelvi s over 5 years ago; [facility] Medical History Colonoscopy 8 years ago; in [place], normal in patient Medical History Chest X-Ray 12-15-11; normal, [facility] Medical History Echocardiogram; 12-15; [facility] Medical History Cardiolite Stress Te st 12-16-11; [facility] Medical History Check's sugar's bid Medical History Heart Catherization; 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 Misha Jamison 05/2014 and 06/2014 Surgical History Colonoscopy, Dr. Sourav Perry repeat in 2025 / Diverticulosis 06-17-15 Surgical History Lithotripsy for a kidney stone Surgical History mammogram [facility] 04/2017 Surgical History vertabrae fusion 08/2018 Hospitalization History ovarian tumor removed an d left overy Hospitalization History complete hysterectomy 19 94 [employer] Other 12-20-2020 History general Narrative - Reported* Type Description Date Medical History Stress Test; [facility], normal per patient Medical History Pap and Pelvic 3 yea rs ago, OBGYN in [place] Medical History Mammogram over 5 yea rs; Normal at that time per patient Medical History CT Abdomen and Pelvi s over 5 years ago; [facility] Medical History Colonoscopy 8 years ago; in [place], normal in patient Medical History Chest X-Ray 12-15-11; normal, [facility] Medical History Echocardiogram; 12-15; [facility] Medical History Cardiolite Stress Te st 12-16-11; [facility] Medical History Check's sugar's bid Medical History Heart Catherization; 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 Misha Jamison 05/2014 and 06/2014 Surgical History Colonoscopy, Dr. Sourav Perry repeat in 2025 / Diverticulosis 06-17-15 Surgical History Lithotripsy for a kidney stone Surgical History mammogram [facility] 04/2017 Surgical History vertabrae fusion 08/2018 Hospitalization History ovarian tumor removed an d left overy Hospitalization History complete hysterectomy 19 94 [employer] Other 12-04-2020 History general Narrative - Reported* Type Description Date Medical History Stress Test; [facility], normal per patient Medical History Pap and Pelvic 3 yea rs ago, OBGYN in [place] Medical History Mammogram over 5 yea rs; Normal at that time per patient Medical History CT Abdomen and Pelvi s over 5 years ago; [facility] Medical History Colonoscopy 8 years ago; in [place], normal in patient Medical History Chest X-Ray 12-15-11; normal, [facility] Medical History Echocardiogram; 12-15; [facility] Medical History Cardiolite Stress Te st 12-16-11; [facility] Medical History Check's sugar's bid Medical History Heart Catherization; 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 Misha Jamison 05/2014 and 06/2014 Surgical History Colonoscopy, Dr. Sourav carrillo- Needs repeat in 10 2025 / Diverticulosis 06-17-15 Surgical History Lithotripsy for a kidney stone Surgical History mammogram [facility] 04/2017 Surgical History vertabrae fusion 08/2018 Hospitalization History ovarian tumor removed an d left overy Hospitalization History complete hysterectomy [employer] Other 11-08-2020 History general Narrative - Reported* Type Description Date Medical History Stress Test; [facility], normal per patient Medical History Pap and Pelvic 3 yea rs ago, OBGYN in [place] Medical History Mammogram over 5 yea rs; Normal at that time per patient Medical History CT Abdomen and Pelvi s over 5 years ago; [facility] Medical History Colonoscopy 8 years ago; in [place], normal in patient Medical History Chest X-Ray 12-15-11; normal, [facility] Medical History Echocardiogram; 12-15; [facility] Medical History Cardiolite Stress Te st 12-16-11; [facility] Medical History Check's sugar's bid Medical History Heart Catherization; 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 Misha Jamison 05/2014 and 06/2014 Surgical History Colonoscopy, Dr. Sourav carrillo- Needs repeat in 10 2025 / Diverticulosis 06-17-15 Surgical History Lithotripsy for a kidney stone Surgical History mammogram [facility] 04/2017 Surgical History vertabrae fusion 08/2018 Hospitalization History ovarian tumor removed an d left overy Hospitalization History complete hysterectomy [facility] Other 06-20-2020 History general Narrative - Reported* Type Description Date Medical History Stress Test; [facility], normal per patient Medical History Pap and Pelvic 3 yea rs ago, OBGYN in [place] Medical History Mammogram over 5 yea rs; Normal at that time per patient Medical History CT Abdomen and Pelvi s over 5 years ago; [facility] Medical History Colonoscopy 8 years ago; in [place], normal in patient Medical History Chest X-Ray 12-15-11; normal, [facility] Medical History Echocardiogram; 12-15; [facility] Medical History Cardiolite Stress Te st 12-16-11; [facility] Medical History Check's sugar's bid Medical History Heart Catherization; 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 Misha Jamison 05/2014 and 06/2014 Surgical History Colonoscopy, Dr. Sourav carrillo- Needs repeat in 2025 / Diverticulosis 06-17-15 Surgical History Lithotripsy for a kidney stone Surgical History mamm[place] [facility] [place] Surgical History vertabrae fusion 08/2018 Hospitalization History ovarian tumor removed an d left overy Hospitalization History complete hysterectomy 19 94 [employer] Other 05-03-2020 History general Narrative - Reported* Type Description Date Medical History Stress Test; [facility], normal per patient Medical History Pap and Pelvic 3 yea rs ago, OBGYN in [place] Medical History Mammogram over 5 yea rs; Normal at that time per patient Medical History CT Abdomen and Pelvi s over 5 years ago; [facility] Medical History Colonoscopy 8 years ago; in [place], normal in patient Medical History Chest X-Ray 12-15-11; normal, [facility] Medical History Echocardiogram; 12-15; [facility] Medical History Cardiolite Stress Te st 12-16-11; [facility] Medical History Check's sugar's bid Medical History Heart Catherization; 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 Misha Jamison 05/2014 and 06/2014 Surgical History Colonoscopy, Dr. Sourav carrillo- Needs repeat in 2025 / Diverticulosis 06-17-15 Surgical History Lithotripsy for a kidney stone Surgical History mammogram [facility] [place]/2017 Surgical History vertabrae fusion 08/2018 Hospitalization History ovarian tumor removed an d left overy Hospitalization History complete hysterectomy 19 [address] [employer] Other 04-26-2020 History general Narrative - Reported* Type Description Date Medical History Stress Test; [facility], normal per patient Medical History Pap and Pelvic 3 yea rs ago, OBGYN in [place] Medical History Mammogram over 5 yea rs; Normal at that time per patient Medical History CT Abdomen and Pelvi s over 5 years ago; [facility] Medical History Colonoscopy 8 years ago; in [place], normal in patient Medical History Chest X-Ray 12-15-11; normal, [facility] Medical History Echocardiogram; 12-15; [facility] Medical History Cardiolite Stress Te st 12-16-11; [facility] Medical History Check's sugar's bid Medical History Heart Catherization; 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 Misha Jamison 05/2014 and 06/2014 Surgical History Colonoscopy, Dr. Sourav carrillo- Needs repeat in 2025 / Diverticulosis 06-17-15 Surgical History Lithotripsy for a kidney stone Surgical History mammogram [facility] [place]/2017 Surgical History vertabrae fusion 08/2018 Hospitalization History ovarian tumor removed an d left overy Hospitalization History complete hysterectomy 19 [address] [employer] Other 04-21-2020 History general Narrative - Reported* Type Description Date Medical History Stress Test; [facility], normal per patient Medical History Pap and Pelvic 3 yea rs ago, OBGYN in [place] Medical History Mammogram over 5 yea rs; Normal at that time per patient Medical History CT Abdomen and Pelvi s over 5 years ago; [facility] Medical History Colonoscopy 8 years ago; in [place], normal in patient Medical History Chest X-Ray 12-15-11; normal, [facility] Medical History Echocardiogram; 12-15; [facility] Medical History Cardiolite Stress Te st 12-16-11; [facility] Medical History Check's sugar's bid Medical History Heart Catherization; 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 Misha Jamison 05/2014 and 06/2014 Surgical History Colonoscopy, Dr. Sourav carrillo- Needs repeat in 10 years 06-17-15 Surgical History Lithotripsy for a kidney stone Surgical History mammogram [facility] [place]/2017 Surgical History vertabrae fusion 08/2018 Hospitalization History ovarian tumor removed an d left overy Hospitalization History complete hysterectomy 19 [address] [employer] Other 03-12-2020 History general Narrative - Reported* Type Description Date Medical History Stress Test; [facility], normal per patient Medical History Pap and Pelvic 3 yea rs ago, OBGYN in [place] Medical History Mammogram over 5 yea rs; Normal at that time per patient Medical History CT Abdomen and Pelvi s over 5 years ago; [facility] Medical History Colonoscopy 8 years ago; in [place], normal in patient Medical History Chest X-Ray 12-15-11; normal, [facility] Medical History Echocardiogram; 12-15; [facility] Medical History Cardiolite Stress Te st 12-16-11; [facility] Medical History Check's sugar's bid Medical History Heart Catherization; 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 Misha Jamison 05/2014 and 06/2014 Surgical History Colonoscopy, Dr. Sourav carrillo- Needs repeat in 10 years 06-17-15 Surgical History Lithotripsy for a kidney stone Surgical History mammogram [facility] [place]/2017 Surgical History vertabrae fusion 08/2018 Hospitalization History ovarian tumor removed an d left overy Hospitalization History complete hysterectomy 19 [address] [employer] Other 03-07-2020 History general Narrative - Reported* Type Description Date Medical History Stress Test; [facility], normal per patient Medical History Pap and Pelvic 3 yea rs ago, OBGYN in [place] Medical History Mammogram over 5 yea rs; Normal at that time per patient Medical History CT Abdomen and Pelvi s over 5 years ago; [facility] Medical History Colonoscopy 8 years ago; in [place], normal in patient Medical History Chest X-Ray 12-15-11; normal, [facility] Medical History Echocardiogram; 12-15; [facility] Medical History Cardiolite Stress Te st 12-16-11; [facility] Medical History Check's sugar's bid Medical History Heart Catherization; 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 Misha Jamison 05/2014 and 06/2014 Surgical History Colonoscopy, Dr. Sourav carrillo- Needs repeat in 10 years 06-17-15 Surgical History Lithotripsy for a kidney stone Surgical History mammogram [facility] [place]2017 Surgical History vertabrae fusion 08/2018 Hospitalization History ovarian tumor removed an d left overy Hospitalization History complete hysterectomy 19 [address] [employer] Other 03-04-2020 History general Narrative - Reported* Type Description Date Medical History Stress Test; [facility], normal per patient Medical History Pap and Pelvic 3 yea rs ago, OBGYN in [place] Medical History Mammogram over 5 yea rs; Normal at that time per patient Medical History CT Abdomen and Pelvi s over 5 years ago; [facility] Medical History Colonoscopy 8 years ago; in [place], normal in patient Medical History Chest X-Ray 12-15-11; normal, [facility] Medical History Echocardiogram; 12-15; [facility] Medical History Cardiolite Stress Te st 12-16-11; [facility] Medical History Check's sugar's bid Medical History Heart Catherization; 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 Misha Jamison 05/2014 and 06/2014 Surgical History Colonoscopy, Dr. Sourav carrillo- Needs repeat in 10 years 06-17-15 Surgical History Lithotripsy for a kidney stone Surgical History mammogram [facility] [place]2017 Surgical History vertabrae fusion 08/2018 Hospitalization History ovarian tumor removed an d left overy Hospitalization History complete hysterectomy 19 [address] [employer] Other 02-22-2020 History general Narrative - Reported* Type Description Date Medical History Stress Test; [facility], normal per patient Medical History Pap and Pelvic 3 yea rs ago, OBGYN in [place] Medical History Mammogram over 5 yea rs; Normal at that time per patient Medical History CT Abdomen and Pelvi s over 5 years ago; [facility] Medical History Colonoscopy 8 years ago; in [place], normal in patient Medical History Chest X-Ray 12-15-11; normal, [facility] Medical History Echocardiogram; 12-15; [facility] Medical History Cardiolite Stress Te st 12-16-11; [facility] Medical History Check's sugar's bid Medical History Heart Catherization; 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 Misha Jamison 05/2014 and 06/2014 Surgical History Colonoscopy, Dr. Sourav Perry repeat in 10 years 06-17-15 Surgical History Lithotripsy for a kidney stone Surgical History mammogram [facility] [place]/2017 Surgical History vertabrae fusion 08/2018 Hospitalization History ovarian tumor removed an d left overy Hospitalization History complete hysterectomy 19 [address] [employer] Other 02-12-2020 History general Narrative - Reported* Type Description Date Medical History Stress Test; [facility], normal per patient Medical History Pap and Pelvic 3 yea rs ago, OBGYN in [place] Medical History Mammogram over 5 yea rs; Normal at that time per patient Medical History CT Abdomen and Pelvi s over 5 years ago; [facility] Medical History Colonoscopy 8 years ago; in [place], normal in patient Medical History Chest X-Ray 12-15-11; normal, [facility] Medical History Echocardiogram; 12-15; [facility] Medical History Cardiolite Stress Te st 12-16-11; [facility] Medical History Check's sugar's bid Medical History Heart Catherization; 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 Misha Jamison 05/2014 and 06/2014 Surgical History Colonoscopy, Dr. Sourav Perry repeat in 10 years 06-17-15 Surgical History Lithotripsy for a kidney stone Surgical History mammogram [facility]/2017 Surgical History vertabrae fusion 08/2018 Hospitalization History ovarian tumor removed an d left overy Hospitalization History complete hysterectomy [employer] Other 10-27-2019 History general Narrative - Reported* Type Description Date Medical History Stress Test; [facility], normal per patient Medical History Pap and Pelvic 3 yea rs ago, OBGYN in [place] Medical History Mammogram over 5 yea rs; Normal at that time per patient Medical History CT Abdomen and Pelvi s over 5 years ago; [facility] Medical History Colonoscopy 8 years ago; in [place], normal in patient Medical History Chest X-Ray 12-15-11; normal, [facility] Medical History Echocardiogram; 12-15; [facility] Medical History Cardiolite Stress Te st 12-16-11; [facility] Medical History Check's sugar's bid Medical History Heart Catherization; 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 Misha Jamison 05/2014 and 06/2014 Surgical History Colonoscopy, Dr. Sourav carrillo- Needs repeat in 10 years 06-17-15 Surgical History Lithotripsy for a kidney stone Surgical History mammogram [facility]/2017 Surgical History vertabrae fusion 08/2018 Hospitalization History ovarian tumor removed an d left overy Hospitalization History complete hysterectomy [address] [employer] Other Evaluation noteNo InformationNort Rank By Search Other Evaluation noteNo assessment information available [facility] Work Phone: Reason for referral (narrative)* Reason appt pt needs cons ult w/ Dr. Cornejo or Viki for evaluation of right shoulder pain Diagnosis 1 Shoulder pain, right (M25.511) Referral Organization [facility] Referring Provider First Name Rin Referring Provider Last Name Lyn Referring Provider Specialty Family Prac meenu Referred Organization [facility] Referred Address ,[place], [place],[address] Referred Provider Specialty Orthopedic S urgery Referral Priority Routine General Notes HoracioFlorinda 02/08/2022 05:31:28 PM > Access Ortho referral form hard faxed with visit note, med list and insurance card. pt understands she will be contacted to schedule this appt. [employer] Other Summary Purpose Family History No Family History Records Found Relationship Condition Age at Onset Recorded Date/T rob father Pulmonary emphysema Unknown Not Specified Cerebrovascular accident (CVA) Unknown Advance Directives No Advanced Directives Records Found Advance Directive Response Recorded Date/ Time Advance Directives No February 15, 2017 3:18pm Hospital Course Note MR#: [id number] [facility] Pt. Name: Criselda Morfin Admitted: 08/23/2018 Discharged: 08/25/2018 Date of : 1955 Physician: Chip Cedillo MD DISCHARGE SUMMARY DATE OF DISCHARGE: August 2018 Date of admission August. PRIMARY CARE PHYSICIAN: [02] CONSULTING PHYSICIANS: Neurosurgery. ADMITTING DIAGNOSIS: #1 spinal stenosis #2 hypertension #3 coronary artery disease #4 hyperlipidemia #5 GERD Discharge diagnosis #1 spinal stenosis status post C4 to C6 fusion. #2 hypertension #3 coronary artery disease #4 hyperlipidemia #5 GERD HISTORY OF PRESENT ILLNESS/HOSPITAL COURSE: Spinal stenosis status post fusion C4 - C6 - Neurosurgery is primary, will defer care to them, patient will need pain management, patient cleared by neurosurgery, hemoglobin stable around 10... #Essential hypertension - Will continue patient's home medication of hydrochlorothiazide and quinapril, will continue to monitor BP, blood pressure is uncontrolled will cons (more content not included)... Chief Complaint and Reason for Visit Chief Complaint Screening Additional Source Comments INFORMATION SOURCE (unrecogn ized section and content) DATE CREATED AUTHOR 06/05/2018 [facility] DATE CREATED AUTHOR AUTHOR'S ORGANIZ ATION 12/09/2018 [facility] DATE CREATED AUTHOR AUTHOR'S ORGANIZ ATION 08/31/2022 [facility] DATE CREATED AUTHOR AUTHOR'S ORGANIZ ATION 05/07/2023 [facility] REASON FOR VISIT (unrecogniz ed section and content) review labs/rt shoulder painClinicalrefillClinicalClinicalClinical/BPRefillsreview labsClinicaldiscuss JanuviarefillrefillClinicalClinicalNew Refill Request Goals (unrecognized section and content) Goals may be documented in a n alternate section Care Teams (unrecognized sec tion and content) Team Status: Active Member Role Status Dates Rin Nicholson DO Primary Care Provider Active Team Status: Inactive Member Role Status Dates Rin Nicholson DO Primary Care Provider, Attending Pro vider Active FOR RECORDS PERTAINING TO PATIENTS WHO ARE OR HAVE BEEN ENROLLED IN A CHEMICAL DEPENDENCY/SUBSTANCEABUSE PROGRAM, SOME INFORMATION MAY BE OMITTED. This clinical summary was aggregated from multiple sources. Caution should be exercised in using it in the provision of clinical care. This summary normalizes information from multiple sources, and as a consequence, information in this document may materially change the coding, format and clinical context of patient data. In addition, data may be omitted in some cases. CLINICAL DECISIONS SHOULD BE BASED ON THE PRIMARY CLINICAL RECORDS. [facility]. provides no warranty or guarantee of the accuracy or completeness of information in this document.
[2023-05-13 07:55] LABS: Alanine Aminotransferase 20 U/L (14-59); Albumin Globulin Ratio 0.8; Alkaline Phosphatase 90 U/L (46-116); Anion Gap 16.1; Aspartate Amino Transferase 10 U/L (15-37); Bilirubin Total 0.3 mg/dL (0.2-1.0); Calcium 9.1 mg/dL (8.5-10.1); Carbon Dioxide 23.7 mmol/L (21.0-32.0); Chloride 103 mmol/L (98-107); Estimated GFR (African America 48 (>=60); Estimated GFR (Non-African Ame 40 (>=60); Glucose 208 mg/dL (74-106); Potassium 3.8 mmol/L (3.5-5.1); Sodium 139 mmol/L (136-145)
[2023-05-14 08:12] LABS: Calcium, Ionized, Serum 5.1 mg/dL (4.5-5.6)
[2023-05-15 14:07] LABS: PTH, Intact 36 pg/mL (15-65)
== END 2023-05-13 07:27 | disposition home or self-care (01) ==
LOC: LAB 07:27
PROVIDERS: PCP Family Medicine; Visit Provider Family Medicine
DX: R79.9 Abnormal finding of blood chemistry, unspecified (principal); E83.52 Hypercalcemia; N18.31 Chronic kidney disease, stage 3a
CPT/HCPCS: 36415; 80053; 82330; 83970; 84100

== ENCOUNTER 2023-10-10 07:01 | Outpatient (OUT) | payer OTHER, SELFPAY ==
--- OUTSIDE RECORDS SUMMARY | 2023-10-10 07:04 | XMS_ITS | CCD ---
Author Organization [facility] Care Team Providers Care Senior Storage Engineer Name Role Phone Selin Jean Attending Unavailable Ted, Selin Pastor Attending Unavailable CHUCHO HONEYCUTT Attending Unavailable Ted, Selin Pastor Attending Unavailable UNKNOWN, PROVIDER Admitting Unavailable SELF, REFERRED Referring Unavailable SELF, REFERRED Primary Care Unavailable CHIP CEDILLO Attending Unavailable [place] Procedure Practitioner Unavailab le UNKNOWN, PROVIDER Surgeon Unavailable Rin Nicholson Unavailable LYN, DR GAR Admitting Unavailable GIRBALJIT, DR GAR Attending Unavailable GIRBALJIT, DR GAR Consulting Unavailable GIRBALJIT, DR GAR Primary Care Unavailable GIRVIN, DR [...] Unavailable PAY ., DR DUNBAR Attending Unavailable GIRVIN, DR GAR Primary Care Unavailable REGIS ., KEV Consulting Unavailable NEFCY, BUDDY Consulting Unavailable GIRBALJIT, DR GAR Admitting Unavailable GIRVIN, DR GAR Attending Unavailable GIRVIN, DR GAR Consulting Unavailable GIRVIN, DR GAR Primary Care Unavailable GIRVIN, DR GAR Admitting Unavailable GIRVIN, DR GAR Primary Care Unavailable GIRVIN, DR GAR Attending Unavailable GIRVIN, DR GAR Consulting Unavailable Lyn, DO Gar Primary Care Provider DO Rin Nicholson Attending Provider [phone] Rin Nicholson Attending Unavailable Lyn, Rin Primary Care Unavailable Girbaljit, Rin Admitting Unavailable Medications Current Medications Medication Drug Class(es) Dates Sig (Normalized) Sig (Original) Acetaminophen (7 sources) Tylenol prn Acti ve atorvastatin 10 mg oral tablet (18 sources) HMG-CoA Reductase Inhibitor Start: 7 take 10 mg by mouth once daily Atorvastatin Active 10 MG PO Daily April 06, 2017 12:00am folic acid 0.4 mg / vitamin b12 0.5 mg oral tablet (2 sources) Vitamin B12 Start: 0 take 1 tablet by mouth once daily Vitamin A05-Amiid Acid Active 1 TAB PO Daily May 31, 2019 12:00am glimepiride 1 mg oral tablet (3 sources) Sulfonylurea Start: 3 take 1 tablet by mouth every twenty-four hours Glimepiride 1 MG 1 tablet with breakfast or the first main meal of the day Orally Once a day for 90 days Mar, Active hydroCHLOROthiazide 12.5 mg oral tablet (18 sources) Thiazide Diuretic Start: 7 take 12.5 mg by mouth once daily Hydrochlorothiazide Active 12.5 MG PO Daily April 06, 2017 12:00am lisinopril 20 mg oral tablet (14 sources) Angiotensin Converting Enzyme Inhibitor Start: 3 take 1 tablet by mouth every twenty-four hours Lisinopril 20 MG 1 tablet Orally Once a day May, Active metFORMIN hydrochloride 1000 mg oral tablet (16 sources) Biguanide Start: 7 take 1000 mg [...] omeprazole 40 mg delayed release oral capsule (18 sources) Proton Pump Inhibitor Start: 04-06-2017 take 40 mg by mouth once daily Omeprazole Active 40 MG PO Daily April 06, 2017 12:00am One Touch Glucometer glucometer (16 sources) Start: 12-24-2011 One Touch Glucometer glucometer use as directed Dec, Active OneTouch Ultra - (16 sources) OneTouch Ultra - USE TO TEST TWICE A DAY DIRECTED for 90 days Active OneTouch Ultra - USE TO TEST TWICE A DAY DIRECTED Active pioglitazone 30 mg oral tablet (18 sources) Peroxisome Proliferator Receptor alpha Agonist, Peroxisome [...] Active vitamin b12 0.5 mg oral tablet (11 sources) Vitamin B12 take 1 tablet by [...] daily Tamoxifen Discontinued 20 MG PO Daily January 30, 2018 8:57am June 02, 2020 3:05pm Problems Active Problems Problem Classification Problem Date Documented Date Episodic/Chronic Cancer of breast (19 sources) Carcinoma in situ of breast; 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] Chronic Chronic kidney disease (20 sources) Chronic kidney disease stage 3; 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: [Chronic kidney disease, stage 3 (moderate)] Chronic Deficiency and other anemia (16 sources) Anemia in chronic kidney disease; 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: [Anemia in chronic kidney disease] Chronic Deficiency and other anemia (3 sources) Anemia, unspecified; 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: [ANEMIA UNSPECIFIED] Onset: 08-05-2022 Episodic Diabetes mellitus with complications (16 sources) Type 2 diabetes mellitus; 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: [Type 2 diabetes mellitus with diabetic chronic kidney disease] Chronic Diabetes mellitus without complication (20 sources) Type 2 diabetes mellitus well controlled; 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: [Type 2 diabetes mellitus without complications] Onset: 08-05-2022 Chronic Diseases of white blood cells (16 sources) Increased blood leukocyte number; 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: [Elevated white blood cell count, unspecified] Chronic Disorders of lipid metabolism (20 sources) Hyperlipidemia; 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: [Hyperlipidemia, unspecified] Onset: 01-25-2022 Chronic Esophageal disorders (19 sources) Gastroesophageal reflux disease; 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: [Gastro-esophageal reflux disease without esophagitis] Chronic Essential hypertension (19 sources) Hypertensive disorder; 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: [Essential (primary) hypertension] Chronic Genitourinary symptoms and ill-defined conditions (2 sources) Nocturia; 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: [NOCTURIA] Onset: 08-05-2022 Episodic Hypertension with complications and secondary hypertension (16 sources) Hypertensive renal disease; 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: [Hypertensive chronic kidney disease with stage 1 through stage 4 chronic kidney disease, or unspecified chronic kidney disease] Chronic Nutritional deficiencies (4 sources) Deficiency of other specified B group vitamins; 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: [DEFICIENCY SPEC B GROUP VITAMINS] Onset: 01-25-2022 Episodic Other nervous system disorders (16 sources) Skin sensation disturbance; 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: [Paresthesia of skin] Episodic Other non-traumatic joint disorders (2 sources) Pain in right shoulder Episodic Other nutritional; endocrine; and metabolic disorders (3 sources) Hypercalcemia; 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: [Hypercalcemia] Chronic Other nutritional; [...] kidney disease Other aftercare (1 source) Other nursing home (current) drug therapy; 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: [OTH GROUP HOME CURRENT DRUG THERAPY] Onset: 05-03-2022 Episodic Other aftercare (1 source) 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 [place] [address] [place] [address] Mammography Report Signed Patient: Leslee Morfin MR#: [id number] : 1955 Acct:[id number] Age/Sex: 67 / F ADM Date: 05/03/23 Loc: [place] Room: Type: [facility] Attending Dr: Rin Nicholson DO Copies to: [...] Carmela Cuevas M.D.05/03/2023 1:52 PM Dictation Location: [facility] Transcribed By: [facility] 05/03/23 1352 Dictated By: Carmela Cuevas MD 05/03/23 1349 Signed By: 05/03/23 1352 [facility] PROF CHEM 8 (BAS METB)on Anion gap [Moles/Vol] 14.4 mmol/L Normal [facility] Comment on above: Performed By: #### B MP #### [facility] [address] [place] [address] Dr. Raf Pearl Calcium [Mass/Vol] 9.3 mg/dL Normal 8.5-10.1 [facility] Comment on above: Performed By: #### B MP #### [facility] [address] [address] [address] Raf Pearl Chloride [Moles/Vol] 102 mmol/L Normal 98-107 [facility] Comment on above: Performed By: #### B MP #### [facility] [address] [address] [address] Raf Pearl CO2 [Moles/Vol] 26.9 mmol/L Normal 21.0-32.0 [facility] Comment on above: Performed By: #### B MP #### [facility] [address] [address] [address] Raf Pearl Creatinine [Mass/Vol] 1.32 mg/dL Critically high 0.55-1.02 [facility] Comment on above: Performed By: #### B MP #### [facility] [address] [place] [address] Dr. Raf Pearl EGFR-AF SOUTH [place]UDANESE 49 mL/min/1.73m2 Critically low >=60 [facility] Comment on above: Performed By: #### B MP #### [facility] [address] [place] [address] Dr. Raf Pearl EGFR-NON AF [place] 40 mL/min/1.73m2 Critically low >=60 [facility] Comment on above: Performed By: #### B MP #### [facility] [address] [address] [address] Raf Pearl Glucose [Mass/Vol] 151 mg/dL Critically high 74-106 [facility] Comment on above: Performed By: #### B MP #### [facility] [address] [address] [address] Raf Pearl Potassium [Moles/Vol] 4.3 mmol/L Normal 3.5-5.1 [facility] Comment on above: Performed By: #### B MP #### [facility] [address] [address] [address] Raf Pearl Sodium [Moles/Vol] 139 mmol/L Normal 136-145 [facility] Comment on above: Performed By: #### B MP #### [facility] [address] [address] [address] Raf Pearl Urea nitrogen [Mass/Vol] 17.0 mg/dL Normal 7.0-18.0 [facility] Comment on above: Performed By: #### B MP #### [facility] [address] [address] [address] Raf Pearl Urea nitrogen/Creatinine [Mass ratio] 12.9 mg/mg Normal [facility] Comment on above: Performed By: #### B MP #### [facility] [address] [address] [address] Raf Pearl PROF CHEM 8 (BAS METB)on Anion gap [Moles/Vol] 9.7 mmol/L Normal [facility] Comment on above: Performed By: #### B MP #### [facility] [address] [address] [address] Raf Pearl Calcium [Mass/Vol] 9.1 mg/dL Normal 8.5-10.1 [facility] Comment on above: Performed By: #### B MP #### [facility] [address] [address] [address] Raf Pearl Chloride [Moles/Vol] 100 mmol/L Normal 98-107 [facility] Comment on above: Performed By: #### B MP #### [facility] [address] [address] [address] Raf Pearl CO2 [Moles/Vol] 28.0 mmol/L Normal 21.0-32.0 [facility] Comment on above: Performed By: #### B MP #### [facility] [address] [address] [address] Raf Pearl Creatinine [Mass/Vol] 1.18 mg/dL Critically high 0.55-1.02 [facility] Comment on above: Performed By: #### B MP #### [facility] [address] [place] [address] Dr. Raf Pearl EGFR-AF S[place] 56 mL/min/1.73m2 Critically low >=60 [facility] Comment on above: Performed By: #### B MP #### [facility] [address] [place] [address] Dr. Raf Pearl EGFR-NON AF [place] 46 mL/min/1.73m2 Critically low >=60 [facility] Comment on above: Performed By: #### B MP #### [facility] [address] [place] [address] Dr. Raf Pearl Glucose [Mass/Vol] 113 mg/dL Critically high 74-106 T [facility] Comment on above: Performed By: #### B MP #### [facility] [address] [address] [address] Raf Pearl Potassium [Moles/Vol] 3.7 mmol/L Normal 3.5-5.1 [facility] Comment on above: Performed By: #### B MP #### [facility] [address] [place] [address] Dr. Raf Pearl Sodium [Moles/Vol] 134 mmol/L Critically low 136-145 Th [facility] Comment on above: Performed By: #### B MP #### [facility] [address] [place] [address] Dr. Raf Pearl Urea nitrogen [Mass/Vol] 13.0 mg/dL Normal 7.0-18.0 [facility] Comment on above: Performed By: #### B MP #### [facility] [address] [place] [address] Dr. Raf Pearl Urea nitrogen/Creatinine [Mass ratio] 11.0 mg/mg Normal [facility] Comment on above: Performed By: #### B MP #### [facility] [address] [place] [address] Dr. Raf Pearl FOLATE ([facility])on 3 Folate >20.0 Normal >3.0 [facility] Comment on above: Result Comment: A se rum folate concentration of less than 3.1 ng/mL is considered to represent clinical deficiency. Performed By: #### F OLALC #### [facility] [address] [place] [address] Dr. Raf Pearl CBC AUTO DIFFon 07-31-2022 BASO # 0.1 103/ul Normal 0.0-0.1 [facility] Comment on above: Performed By: #### M ALBR #### [facility] [address] [place] [address] Dr. Raf Pearl Basophils/100 WBC (Bld) 1.3 % Normal 0.2-2.0 [facility] Comment on above: Performed By: #### M ALBR #### [facility] [address] [place] [address] Dr. Raf Pearl EO # 0.4 103/ul Normal 0.0-0.7 [facility] Comment on above: Performed By: #### M ALBR #### [facility] [address] [place] [address] Dr. Raf Pearl Eosinophils/100 WBC (Bld) 4.5 % Normal 0.9-7.0 [facility] Comment on above: Performed By: #### M ALBR #### [facility] [address] [place] [address] Dr. Raf Pearl Erythrocyte distribution width (RBC) [Ratio] 13.2 % Normal 11.0-15.0 [facility] Comment on above: Performed By: #### M ALBR #### [facility] [address] [place] [address] Dr. Raf Pearl Hematocrit (Bld) [Volume fraction] 33.8 % Critically low 36.0-48.0 [facility] Comment on above: Performed By: #### M ALBR #### [facility] [address] [place] [address] Dr. Raf Pearl Hemoglobin (Bld) [Mass/Vol] 11.5 g/dL Critically low 12.0-16.0 [facility] Comment on above: Performed By: #### M ALBR #### [facility] [address] [place] [address] Dr. Raf Pearl IG # 0.02 10e3/ul Normal 0.00-0.03 [facility] Comment on above: Performed By: #### M ALBR #### [facility] [address] [place] [address] Dr. Raf Pearl IG % 0.2 % Normal 0.0-0.5 [facility] Comment on above: Performed By: #### M ALBR #### [facility] [address] [place] [address] Dr. Raf Pearl LYMPH # 2.6 103/ul Normal 1.2-3.8 [facility] Comment on above: Performed By: #### M ALBR #### [facility] [address] [place] [address] Dr. Raf Pearl Lymphocytes/100 WBC (Bld) 31.6 % Normal 20.5-60.0 [facility] Comment on above: Performed By: #### M ALBR #### [facility] [address] [place] [address] Dr. Raf Pearl MANUAL DIFF REQ NO Normal [facility] Comment on above: Performed By: #### M ALBR #### [facility] [address] [place] [address] Dr. Raf Pearl MCH (RBC) [Entitic mass] 31.1 pg Normal 26.7-34.0 [facility] Comment on above: Performed By: #### M ALBR #### [facility] [address] [address] [address] Raf Pearl MCHC (RBC) [Mass/Vol] 34.0 g/dL Normal 29.9-35.2 [facility] Comment on above: Performed By: #### M ALBR #### [facility] [address] [place] [address] Dr. Raf Pearl MCV (RBC) [Entitic vol] 91.4 fL Normal 81.0-99.0 [facility] Comment on above: Performed By: #### M ALBR #### [facility] [address] [place] [address] Dr. Raf Pearl MONO # 0.6 103/ul Normal 0.3-0.8 [facility] Comment on above: Performed By: #### M ALBR #### [facility] [address] [place] [address] Dr. Raf Pearl Monocytes/100 WBC (Bld) 7.2 % Normal 1.7-12.0 [facility] Comment on above: Performed By: #### M ALBR #### [facility] [address] [place] [address] Dr. Raf Pearl NEUT # 4.6 103/ul Normal 1.4-6.5 [facility] Comment on above: Performed By: #### M ALBR #### [facility] [address] [place] [address] Dr. Raf Pearl Neutrophils/100 WBC (Bld) 55.2 % Normal 43.0-75.0 [facility] Comment on above: Performed By: #### M ALBR #### [facility] [address] [place] [address] Dr. Raf Pearl Platelet mean volume (Bld) [Entitic vol] 10.0 fL Normal 9.5-13.5 [facility] Comment on above: Performed By: #### M ALBR #### [facility] [address] [place] [address] Dr. Raf Pearl PLT 352 103/ul Normal 150-450 [facility] Comment on above: Performed By: #### M ALBR #### [facility] [address] [address] [address] Raf Pearl RBC 3.70 106/ul Critically low 4.20-5.40 [facility] Comment on above: Performed By: #### M ALBR #### [facility] [address] [address] [address] Raf Pearl WBC 8.2 103/ul Normal 4.0-11.0 [facility] Comment on above: Performed By: #### M ALBR #### [facility] [address] [address] [address] Raf Pearl CULTURE URINEon 07-31-2022 CULTURE URINE Culture Observations: NO GROWTH. Normal [facility] Comment on above: Performed By: #### B MP #### [facility] [address] [place] [address] Dr. Raf Pearl GLYCOHEMOGLOBIN A1Con 2022 ADA RECOMMENDATION SEE BELOW Normal [facility] Comment on above: Result Comment: ADA RECOMMENDED LIMIT 4.0 - 6.0 ADA THERAPEUTIC TARGET < 7.0 ACTION SUGGESTED > 7.0 Performed By: #### B MP #### [facility] [address] [place] [address] Dr. Raf Pearl Glucose [Mass/Vol] 140 mg/dL Normal [facility] Comment on above: Performed By: #### B MP #### [facility] [address] [place] [address] Dr. Raf Pearl HbA1c (Bld) [Mass fraction] 6.5 % Critically high 4.5-6.2 [facility] Comment on above: Performed By: #### B MP #### [facility] [address] [place] [address] Dr. Raf Pearl LIPID PROFILEon 07-31-2022 CHOL-HDL RATIO NORM SEE BELOW Normal [facility] Comment on above: Result Comment: 3.3 - 4.4 LOW RISK 4.4 - 7.1 AVERAGE RISK 7.1 - 11.0 MODERATE RISK >11.0 HIGH RISK Performed By: #### C MP, LIPID, TSH #### [facility] [address] [address] [address] Raf Pearl Cholesterol [Mass/Vol] 166 mg/dL Normal <=200 [facility] Comment on above: Performed By: #### C MP, LIPID, TSH #### [facility] [address] [address] [address] Raf Pearl Cholesterol in HDL [Mass/Vol] 57 mg/dL Normal 40-60 [facility] Comment on above: Performed By: #### C MP, LIPID, TSH #### [facility] [address] [address] [address] Raf Pearl Cholesterol in LDL [Mass/Vol] 91.4 mg/dL Normal [facility] Comment on above: Performed By: #### C MP, LIPID, TSH #### [facility] [address] [address] [address] Raf Pearl Cholesterol.total/Ch olesterol in HDL [Mass ratio] 2.9 {ratio} Normal [facility] Comment on above: Performed By: #### C MP, LIPID, TSH #### [facility] [address] [address] [address] Raf Pearl HDL NORMAL > or = 60 mg/dl - LOW CARDIOVASCULAR RISK <40 mg/dl - HIGH CARDIOVASCULAR RISK Normal [facility] Comment on above: Performed By: #### C MP, LIPID, TSH #### [facility] [address] [address] [address] Raf Pearl LDL CALC NORMAL SEE BELOW Normal [facility] Comment on above: Result Comment: <100 mg/dl OPTIMAL 100 - 129 mg/dl NEAR OR ABOVE OPTIMAL 130 - 159 mg/dl BORDERLINE HIGH 160 - 189 mg/dl HIGH >190 mg/dl VERY HIGH Performed By: #### C MP, LIPID, TSH #### [facility] [address] [address] [address] Raf Pearl Triglyceride [Mass/Vol] 88 mg/dL Normal <=150 [facility] Comment on above: Performed By: #### C MP, LIPID, TSH #### [facility] [address] [address] [address] Raf Pearl VLDL CALC 17.6 mg/dL Normal [facility] Comment on above: Performed By: #### C MP, LIPID, TSH #### [facility] [address] [place] [address] Dr. Raf Pearl MICROALBUMIN, RAND URon 07-17 mALB <1.3 Normal <=30.0 [facility] Comment on above: Performed By: #### M ALBR #### [facility] [address] [address] [address] Raf Pearl PROF 14(COMP METB)on 023 Albumin [Mass/Vol] 3.6 g/dL Normal 3.4-5.0 [facility] Comment on above: Performed By: #### C MP, LIPID, TSH #### [facility] [address] [place] [address] Dr. Raf Pearl Albumin/Globulin [Mass ratio] 1.0 {ratio} Normal [facility] Comment on above: Performed By: #### C MP, LIPID, TSH #### [facility] [address] [place] [address] Dr. Raf Pearl ALP [Catalytic activity/Vol] 70 U/L Normal 46-116 [facility] Comment on above: Performed By: #### C MP, LIPID, TSH #### [facility] [address] [place] [address] Dr. Raf Pearl ALT [Catalytic activity/Vol] 22 U/L Normal 14-59 [facility] Comment on above: Performed By: #### C MP, LIPID, TSH #### [facility] [address] [place] [address] Dr. Raf Pearl Anion gap [Moles/Vol] 11.8 mmol/L Normal [facility] Comment on above: Performed By: #### C MP, LIPID, TSH #### [facility] [address] [place] [address] Dr. Raf Pearl AST [Catalytic activity/Vol] 19 U/L Normal 15-37 [facility] Comment on above: Performed By: #### C MP, LIPID, TSH #### [facility] [address] [address] [address] Raf Pearl Bilirubin [Mass/Vol] 0.3 mg/dL Normal 0.2-1.0 [facility] Comment on above: Performed By: #### C MP, LIPID, TSH #### [facility] [address] [address] [address] Raf Pearl Calcium [Mass/Vol] 9.0 mg/dL Normal 8.5-10.1 [facility] Comment on above: Performed By: #### C MP, LIPID, TSH #### [facility] [address] [address] [address] Raf Pearl Chloride [Moles/Vol] 104 mmol/L Normal 98-107 [facility] Comment on above: Performed By: #### C MP, LIPID, TSH #### [facility] [address] [place] [address] Dr. Raf Pearl CO2 [Moles/Vol] 28.6 mmol/L Normal 21.0-32.0 [facility] Comment on above: Performed By: #### C MP, LIPID, TSH #### [facility] [address] [address] [address] Raf Pearl Creatinine [Mass/Vol] 1.48 mg/dL Critically high 0.55-1.02 [facility] Comment on above: Performed By: #### C MP, LIPID, TSH #### [facility] [address] [address] [address] Raf Pearl EGFR-AF [place] 43 mL/min/1.73m2 Critically low >=60 [facility] Comment on above: Performed By: #### C MP, LIPID, TSH #### [facility] [address] [address] [address] Raf Pearl EGFR-NON AF [place] 35 mL/min/1.73m2 Critically low >=60 [facility] Comment on above: Performed By: #### C MP, LIPID, TSH #### [facility] [address] [address] [address] Raf Pearl Globulin (S) [Mass/Vol] 3.5 g/dL Normal [facility] Comment on above: Performed By: #### C MP, LIPID, TSH #### [facility] [address] [address] [address] Raf Pearl Glucose [Mass/Vol] 102 mg/dL Normal 74-106 [facility] Comment on above: Performed By: #### C MP, LIPID, TSH #### [facility] [address] [place] [address] Dr. Raf Pearl Potassium [Moles/Vol] 4.4 mmol/L Normal 3.5-5.1 [facility] Comment on above: Performed By: #### C MP, LIPID, TSH #### [facility] [address] [place] [address] Dr. Raf Pearl Protein [Mass/Vol] 7.1 g/dL Normal 6.4-8.2 [facility] Comment on above: Performed By: #### C MP, LIPID, TSH #### [facility] [address] [place] [address] Dr. Raf Pearl Sodium [Moles/Vol] 140 mmol/L Normal 136-145 [facility] Comment on above: Performed By: #### C MP, LIPID, TSH #### [facility] [address] [place] [address] Dr. Raf Pearl Urea nitrogen [Mass/Vol] 21.0 mg/dL Critically high 7.0-18.0 [facility] Comment on above: Performed By: #### C MP, LIPID, TSH #### [facility] [address] [place] [address] Dr. Raf Pearl Urea nitrogen/Creatinine [Mass ratio] 14.2 mg/mg Normal [facility] Comment on above: Performed By: #### C MP, LIPID, TSH #### [facility] [address] [place] [address] Dr. Raf Pearl TSHon 07-31-2022 TSH 2.298 uIU/mL Normal 0.358-3.740 [facility] Comment on above: Performed By: #### C MP, LIPID, TSH #### [facility] [address] [place] [address] Dr. Raf Pearl UA RANDOM W/MICROSCOPICon BACTERIA NONE SEEN Normal NONE SEEN [facility] Comment on above: Performed By: #### B MP #### [facility] [address] [place] [address] Dr. Raf Pearl Bilirubin Ql (U) Negative Normal NEGATIVE [facility] Comment on above: Performed By: #### B MP #### [facility] [address] [place] [address] Dr. Raf Pearl CAST NONE SEEN Normal NONE SEEN [facility] Comment on above: Performed By: #### B MP #### [facility] [address] [place] [address] Dr. Raf Pearl Clarity (U) CLEAR Normal CLEAR [facility] Comment on above: Performed By: #### B MP #### [facility] [address] [place] [address] Dr. Raf Pearl Color (U) LT. YELLOW Normal YELLOW [facility] Comment on above: Performed By: #### B MP #### [facility] [address] [place] [address] Dr. Raf Pearl Crystals LM Nom (Urine sed) NONE SEEN Normal NONE SEEN [facility] Comment on above: Performed By: #### B MP #### [facility] [address] [place] [address] Dr. Raf Pearl Epithelial cells LM Ql (Urine sed) NONE SEEN Normal NONE SEEN /RARE [facility] Comment on above: Performed By: #### B MP #### [facility] [address] [place] [address] Dr. Raf Pearl Glucose Ql (U) Negative Normal NEGATIVE [facility] Comment on above: Performed By: #### B MP #### [facility] [address] [place] [address] Dr. Raf Pearl Hemoglobin Ql (U) Negative Normal NEGATIVE [facility] Comment on above: Performed By: #### B MP #### [facility] [address] [place] [address] Dr. Raf Pearl Ketones Ql (U) Negative Normal NEGATIVE [facility] Comment on above: Performed By: #### B MP #### [facility] [address] [place] [address] Dr. Raf Pearl LEUKOCYTES Negative Normal NEGATIVE [facility] Comment on above: Performed By: #### B MP #### [facility] [address] [place] [address] Dr. Raf Pearl MUCOUS NONE SEEN Normal NONE SEEN [facility] Comment on above: Performed By: #### B MP #### [facility] [address] [place] [address] Dr. Raf Pearl Nitrite Ql (U) Negative Normal NEGATIVE [facility] Comment on above: Performed By: #### B MP #### [facility] [address] [place] [address] Dr. Raf Pearl pH (U) 7.0 [pH] Normal 5-9 [facility] Comment on above: Performed By: #### B MP #### [facility] [address] [place] [address] Dr. Raf Pearl RBC 0-2 Normal 0-2 [facility] Comment on above: Performed By: #### B MP #### [facility] [address] [place] [address] Dr. Raf Pearl SPEC GRAVITY <=1.005 Abnormal 1.005-<=1.025 [facility] Comment on above: Performed By: #### B MP #### [facility] [address] [place] [address] Dr. Raf Pearl UA PROTEIN Negative Normal NEGATIVE/ TRACE [facility] Comment on above: Performed By: #### B MP #### [facility] [address] [place] [address] Dr. Raf Pearl Urobilinogen Qn (U) 0.2 {Tawana'U}/dL Normal 0.2 - 1. 0 [facility] Comment on above: Performed By: #### B MP #### [facility] [address] [place] [address] Dr. Raf Pearl WBC NONE SEEN Normal NONE SEEN [facility] Comment on above: Performed By: #### B MP #### [facility] [address] [address] [address] Raf Pearl VITAMIN B12on 07-31-2022 Cobalamin (Vitamin B12) [Mass/Vol] 600.0 pg/mL Normal 193.0-986.0 [facility] Comment on above: Performed By: #### B MP #### [facility] [address] [address] [address] Raf Pearl Covid-19 PCR ([facility])on 04-18 SARS-CoV-2 (COVID-19) RNA KHANH+probe Ql (Unsp spec) Not detected Normal NOT DETECTED [facility] Comment on above: Result Comment: When [...] for this test is supported by the [employer] Worker of [employer] and Human Service's declaration that [...] used). Performed By: #### C VDTBH #### [facility] [address] [place] [address] Dr. Raf Pearl INFLUENZA A AND B AGon 04-30 INFLUANEGH SEE BELOW Normal [facility] Comment on above: Result Comment: Nega tive for Flu A protein angiten. Infection due to Flu A cannot be ruled out. Flu A angiten in the sample may be below the detection limit of the test. Performed By: #### B MP #### [facility] [address] [address] [address] Raf Pearl INFLUBNEGH SEE BELOW Normal [facility] Comment on above: Result Comment: Nega tive for Flu B protein antigen. Infection due to Flu B cannot be ruled out. Flu B antigen in the sample may be below the detection limit of the test. Performed By: #### B MP #### [facility] [address] [place] [address] Dr. Raf Pearl INFLUENZA A AG Negative Normal NEGATIVE SEE COMMENT [facility] Comment on above: Performed By: #### B MP #### [facility] [address] [place] [address] Dr. Raf Pearl INFLUENZA B AG Negative Normal NEGATIVE SEE COMMENT [facility] Comment on above: Performed By: #### B MP #### [facility] [address] [place] [address] Dr. Raf Pearl XR CHEST 2 Von [...] BUDDY LEMOS Date: 2022-04-30 19:38 Normal [facility] PROF CHEM 8 (BAS METB)on Anion gap [Moles/Vol] 12.6 mmol/L Normal [facility] Comment on above: Performed By: #### B MP #### [facility] [address] [place] [address] Dr. Raf Pearl Calcium [Mass/Vol] 9.4 mg/dL Normal 8.5-10.1 [facility] Comment on above: Performed By: #### B MP #### [facility] [address] [place] [address] Dr. Raf Pearl Chloride [Moles/Vol] 99 mmol/L Normal 98-107 [facility] Comment on above: Performed By: #### B MP #### [facility] [address] [place] [address] Dr. Raf Pearl CO2 [Moles/Vol] 29.3 mmol/L Normal 21.0-32.0 [facility] Comment on above: Performed By: #### B MP #### [facility] [address] [address] [address] Raf Pearl Creatinine [Mass/Vol] 1.15 mg/dL Critically high 0.55-1.02 [facility] Comment on above: Performed By: #### B MP #### [facility] [address] [address] [address] Raf Pearl EGFR-AF [place] 57 mL/min/1.73m2 Critically low >=60 [facility] Comment on above: Performed By: #### B MP #### [facility] [address] [address] [address] Raf Pearl EGFR-NON AF [place] 47 mL/min/1.73m2 Critically low >=60 [facility] Comment on above: Performed By: #### B MP #### [facility] [address] [address] [address] Raf Pearl Glucose [Mass/Vol] 146 mg/dL Critically high 74-106 [facility] Comment on above: Performed By: #### B MP #### [facility] [address] [address] [address] Raf Pearl Potassium [Moles/Vol] 3.9 mmol/L Normal 3.5-5.1 [facility] Comment on above: Performed By: #### B MP #### [facility] [address] [address] [address] Raf Pearl Sodium [Moles/Vol] 137 mmol/L Normal 136-145 [facility] Comment on above: Performed By: #### B MP #### [facility] [address] [address] [address] Raf Pearl Urea nitrogen [Mass/Vol] 10.0 mg/dL Normal 7.0-18.0 [facility] Comment on above: Performed By: #### B MP #### [facility] [address] [address] [address] Raf Pearl Urea nitrogen/Creatinine [Mass ratio] 8.7 mg/mg Normal [facility] Comment on above: Performed By: #### B MP #### [facility] [address] [place] [address] Dr. Raf Pearl CBC AUTO DIFFon 01-22-2022 BASO # 0.1 103/ul Normal 0.0-0.1 [facility] Comment on above: Performed By: #### B MP #### [facility] [address] [place] [address] Dr. Raf Pearl Basophils/100 WBC (Bld) 1.5 % Normal 0.2-2.0 [facility] Comment on above: Performed By: #### B MP #### [facility] [address] [place] [address] Dr. Raf Pearl EO # 0.3 103/ul Normal 0.0-0.7 [facility] Comment on above: Performed By: #### B MP #### [facility] [address] [place] [address] Dr. Raf Pearl Eosinophils/100 WBC (Bld) 5.3 % Normal 0.9-7.0 [facility] Comment on above: Performed By: #### B MP #### [facility] [address] [place] [address] Dr. Raf Pearl Erythrocyte distribution width (RBC) [Ratio] 13.1 % Normal 11.0-15.0 [facility] Comment on above: Performed By: #### B MP #### [facility] [address] [place] [address] Dr. Raf Pearl Hematocrit (Bld) [Volume fraction] 36.4 % Normal 36.0-48.0 [facility] Comment on above: Performed By: #### B MP #### [facility] [address] [place] [address] Dr. Raf Pearl Hemoglobin (Bld) [Mass/Vol] 12.4 g/dL Normal 12.0-16.0 [facility] Comment on above: Performed By: #### B MP #### [facility] [address] [place] [address] Dr. Raf Pearl IG # 0.02 10e3/ul Normal 0.00-0.03 [facility] Comment on above: Performed By: #### B MP #### [facility] [address] [place] [address] Dr. Raf Pearl IG % 0.3 % Normal 0.0-0.5 [facility] Comment on above: Performed By: #### B MP #### [facility] [address] [address] [address] Raf Pearl LYMPH # 2.0 103/ul Normal 1.2-3.8 [facility] Comment on above: Performed By: #### B MP #### [facility] [address] [place] [address] Dr. Raf Pearl Lymphocytes/100 WBC (Bld) 31.6 % Normal 20.5-60.0 [facility] Comment on above: Performed By: #### B MP #### [facility] [address] [place] [address] Dr. Raf Pearl MANUAL DIFF REQ NO Normal [facility] Comment on above: Performed By: #### B MP #### [facility] [address] [place] [address] Dr. Raf Pearl MCH (RBC) [Entitic mass] 31.4 pg Normal 26.7-34.0 [facility] Comment on above: Performed By: #### B MP #### [facility] [address] [place] [address] Dr. Raf Pearl MCHC (RBC) [Mass/Vol] 34.1 g/dL Normal 29.9-35.2 [facility] Comment on above: Performed By: #### B MP #### [facility] [address] [place] [address] Dr. Raf Pearl MCV (RBC) [Entitic vol] 92.2 fL Normal 81.0-99.0 [facility] Comment on above: Performed By: #### B MP #### [facility] [address] [place] [address] Dr. Raf Pearl MONO # 0.4 103/ul Normal 0.3-0.8 [facility] Comment on above: Performed By: #### B MP #### [facility] [address] [place] [address] Dr. Raf Pearl Monocytes/100 WBC (Bld) 6.8 % Normal 1.7-12.0 [facility] Comment on above: Performed By: #### B MP #### [facility] [address] [place] [address] Dr. Raf Pearl NEUT # 3.4 103/ul Normal 1.4-6.5 [facility] Comment on above: Performed By: #### B MP #### [facility] [address] [place] [address] Dr. Raf Pearl Neutrophils/100 WBC (Bld) 54.5 % Normal 43.0-75.0 [facility] Comment on above: Performed By: #### B MP #### [facility] [address] [place] [address] Dr. Raf Pearl Platelet mean volume (Bld) [Entitic vol] 9.7 fL Normal 9.5-13.5 [facility] Comment on above: Performed By: #### B MP #### [facility] [address] [place] [address] Dr. Raf Pearl PLT 384 103/ul Normal 150-450 [facility] Comment on above: Performed By: #### B MP #### [facility] [address] [place] [address] Dr. Raf Pearl RBC 3.95 106/ul Critically low 4.20-5.40 [facility] Comment on above: Performed By: #### B MP #### [facility] [address] [place] [address] Dr. Raf Pearl WBC 6.2 103/ul Normal 4.0-11.0 [facility] Comment on above: Performed By: #### B MP #### [facility] [address] [place] [address] Dr. Raf Pearl GLYCOHEMOGLOBIN A1Con 2021 ADA RECOMMENDATION SEE BELOW Normal [facility] Comment on above: Result Comment: ADA RECOMMENDED LIMIT 4.0 - 6.0 ADA THERAPEUTIC TARGET < 7.0 ACTION SUGGESTED > 7.0 Performed By: #### A 1C #### [facility] [address] [place] [address] Dr. Raf Pearl Glucose [Mass/Vol] 137 mg/dL Normal [facility] Comment on above: Performed By: #### A 1C #### [facility] [address] [place] [address] Dr. Raf Pearl HbA1c (Bld) [Mass fraction] 6.4 % Critically high 4.5-6.2 [facility] Comment on above: Performed By: #### A 1C #### [facility] [address] [place] [address] Dr. Raf Pearl LIPID PROFILEon 01-22-2022 CHOL-HDL RATIO NORM SEE BELOW Normal [facility] Comment on above: Result Comment: 3.3 - 4.4 LOW RISK 4.4 - 7.1 AVERAGE RISK 7.1 - 11.0 MODERATE RISK >11.0 HIGH RISK Performed By: #### B MP #### [facility] [address] [place] [address] Dr. Raf Pearl Cholesterol [Mass/Vol] 165 mg/dL Normal <=200 [facility] Comment on above: Performed By: #### B MP #### [facility] [address] [place] [address] Dr. Raf Peral Cholesterol in HDL [Mass/Vol] 66 mg/dL Critically high 40-60 [facility] Comment on above: Performed By: #### B MP #### [facility] [address] [place] [address] Dr. Raf Pearl Cholesterol in LDL [Mass/Vol] 87.8 mg/dL Normal [facility] Comment on above: Performed By: #### B MP #### [facility] [address] [place] [address] Dr. Raf Pearl Cholesterol.total/Ch olesterol in HDL [Mass ratio] 2.5 {ratio} Normal [facility] Comment on above: Performed By: #### B MP #### [facility] [address] [address] [address] Raf Pearl HDL NORMAL > or = 60 mg/dl - LOW CARDIOVASCULAR RISK <40 mg/dl - HIGH CARDIOVASCULAR RISK Normal [facility] Comment on above: Performed By: #### B MP #### [facility] [address] [address] [address] Raf Pearl LDL CALC NORMAL SEE BELOW Normal [facility] Comment on above: Result Comment: <100 mg/dl OPTIMAL 100 - 129 mg/dl NEAR OR ABOVE OPTIMAL 130 - 159 mg/dl BORDERLINE HIGH 160 - 189 mg/dl HIGH >190 mg/dl VERY HIGH Performed By: #### B MP #### [facility] [address] [address] [address] Raf Pearl Triglyceride [Mass/Vol] 56 mg/dL Normal <=150 [facility] Comment on above: Performed By: #### B MP #### [facility] [address] [place] [address] Dr. Raf Pearl VLDL CALC 11.2 mg/dL Normal [facility] Comment on above: Performed By: #### B MP #### [facility] [address] [address] [address] Raf Pearl PROF 14(COMP METB)on 022 Albumin [Mass/Vol] 4.0 g/dL Normal 3.4-5.0 [facility] Comment on above: Performed By: #### B MP #### [facility] [address] [place] [address] Dr. Raf Pearl Albumin/Globulin [Mass ratio] 1.1 {ratio} Normal [facility] Comment on above: Performed By: #### B MP #### [facility] [address] [address] [address] Raf Pearl ALP [Catalytic activity/Vol] 81 U/L Normal 46-116 [facility] Comment on above: Performed By: #### B MP #### [facility] [address] [place] [address] Dr. Raf Pearl ALT [Catalytic activity/Vol] 26 U/L Normal 14-59 [facility] Comment on above: Performed By: #### B MP #### [facility] [address] [address] [address] Raf Pearl Anion gap [Moles/Vol] 12.1 mmol/L Normal [facility] Comment on above: Performed By: #### B MP #### [facility] [address] [address] [address] Raf Pearl AST [Catalytic activity/Vol] 16 U/L Normal 15-37 [facility] Comment on above: Performed By: #### B MP #### [facility] [address] [address] [address] Raf Pearl Bilirubin [Mass/Vol] 0.3 mg/dL Normal 0.2-1.0 [facility] Comment on above: Performed By: #### B MP #### [facility] [address] [address] [address] Raf Pearl Calcium [Mass/Vol] 9.2 mg/dL Normal 8.5-10.1 [facility] Comment on above: Performed By: #### B MP #### [facility] [address] [address] [address] Raf Pearl Chloride [Moles/Vol] 103 mmol/L Normal 98-107 [facility] Comment on above: Performed By: #### B MP #### [facility] [address] [address] [address] Raf Pearl CO2 [Moles/Vol] 26.9 mmol/L Normal 21.0-32.0 [facility] Comment on above: Performed By: #### B MP #### [facility] [address] [address] [address] Raf Pearl Creatinine [Mass/Vol] 1.17 mg/dL Critically high 0.55-1.02 [facility] Comment on above: Performed By: #### B MP #### [facility] [address] [address] [address] Raf Pearl EGFR-AF [place] 56 mL/min/1.73m2 Critically low >=60 [facility] Comment on above: Performed By: #### B MP #### [facility] [address] [address] [address] Raf Pearl EGFR-NON AF [place] 46 mL/min/1.73m2 Critically low >=60 [facility] Comment on above: Performed By: #### B MP #### [facility] [address] [address] [address] Raf Pearl Globulin (S) [Mass/Vol] 3.6 g/dL Normal [facility] Comment on above: Performed By: #### B MP #### [facility] [address] [address] [address] Raf Pearl Glucose [Mass/Vol] 141 mg/dL Critically high 74-106 [facility] Comment on above: Performed By: #### B MP #### [facility] [address] [address] [address] Raf Pearl Potassium [Moles/Vol] 4.0 mmol/L Normal 3.5-5.1 [facility] Comment on above: Performed By: #### B MP #### [facility] [address] [address] [address] Raf Pearl Protein [Mass/Vol] 7.6 g/dL Normal 6.4-8.2 [facility] Comment on above: Performed By: #### B MP #### [facility] [address] [address] [address] Raf Pearl Sodium [Moles/Vol] 138 mmol/L Normal 136-145 [facility] Comment on above: Performed By: #### B MP #### [facility] [address] [address] [address] Raf Pearl Urea nitrogen [Mass/Vol] 19.0 mg/dL Critically high 7.0-18.0 [facility] Comment on above: Performed By: #### B MP #### [facility] [address] [address] [address] Raf Pearl Urea nitrogen/Creatinine [Mass ratio] 16.2 mg/mg Normal [facility] Comment on above: Performed By: #### B MP #### [facility] [address] [address] [address] Raf Pearl VIT B12 AND FOLATEon 022 Cobalamin (Vitamin B12) [Mass/Vol] 786.0 pg/mL Normal 193.0-986.0 [facility] Comment on above: Performed By: #### B 12FOL #### [facility] [address] [address] [address] Raf Pearl FOLATE 21.80 ng/mL Normal 8.60-58.90 [facility] Comment on above: Performed By: #### B 12FOL #### [facility] [address] [address] [address] Raf Pearl CERVICAL SPINE 2 OR 3 VWSon 11-02-2018 CERVICAL SPINE 2 OR 3 VWS [facility] Department of Radiology [address] [place] [id number] Patient Name: CRISELDA MORFIN : 1955 Sex: F Age: Race: White Pt. 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 Electronically signed by:Jeffrey Miles. Transcribed by: [email or web address], User Resident: ANTHONY SUNG Electronically Signed by: JEFFREY MILES @ 11/04/2018 04:42 PM I personally read this/these film(s) with this resident Normal [facility] Comment on above: Order Comment: , pos top, eval hardware and alignment , Views (X-RAY, CERVICAL SPINE): AP, Lateral, Odontoid , postop, eval hardware and alignment , Views (X-RAY, CERVICAL SPINE): AP, Lateral, Odontoid , , , Ordering Provider - A ROSIE MSN ACCOUNTING PRACTICE MANAGER , POC GLUCOSE LABon 08-25-2018 Glucose [Mass/Vol] 208 mg/dL High 70-100 [facility] Comment on above: Performed By: #### 5 6101, [id number] #### [facility] [address] [place] [address], [facility] Glucose [Mass/Vol] 98 mg/dL Normal 70-100 [facility] Comment on above: Performed By: #### 5 6101, 90101 #### [facility] [address] [facility]. [address] BASIC METABOLIC PANELon 05-0 Calcium [Mass/Vol] 7.7 mg/dL Low 8.6-10.3 [facility] Comment on above: Order Comment: No: D o not add to previous draw Performed By: #### 5 0103 #### [facility] [address] [facility] [place] [address], [facility] Chloride [Moles/Vol] 109 mmol/L High 98-107 [facility] Comment on above: Order Comment: No: D o not add to previous draw Performed By: #### 5 0103 #### [facility] [address] [facility] [place] [address], [facility] CO2 [Moles/Vol] 24 mmol/L Normal 21-31 [facility] Comment on above: Order Comment: No: D o not add to previous draw Performed By: #### 5 0103 #### [facility] [address] [facility] [place] [address], [facility] Creatinine [Mass/Vol] 0.89 mg/dL Normal 0.60-1.20 [facility] Comment on above: Order Comment: No: D o not add to previous draw Performed By: #### 5 0103 #### [facility] [address] [facility] [place] [address], [facility] GFR/1.73 sq M predicted among blacks MDRD (S/P/Bld) [Vol rate/Area] mL/min/{1.73_m2} Normal >60 [facility] Comment on above: Order Comment: No: D o not add to previous draw Performed By: #### 5 0103 #### [facility] [address] [place] [address], [facility] GFR/1.73 sq M predicted among non-blacks MDRD (S/P/Bld) [Vol rate/Area] mL/min/{1.73_m2} Normal >60 [facility] Comment on above: Order Comment: No: D o not add to previous draw Performed By: #### 5 0103 #### [facility] [address] [place] [address], [facility] Glucose [Mass/Vol] 94 mg/dL Normal 70-100 [facility] Comment on above: Order Comment: No: D o not add to previous draw Performed By: #### 5 0103 #### [facility] [address] [place] [address], [facility] Potassium [Moles/Vol] 3.3 mmol/L Low 3.5-5.1 [facility] Comment on above: Order Comment: No: D o not add to previous draw Performed By: #### 5 0103 #### [facility] [address] [place] [address], [facility] Sodium [Moles/Vol] 140 mmol/L Normal 136-145 [facility] Comment on above: Order Comment: No: D o not add to previous draw Performed By: #### 5 0103 #### [facility] [address] [place] [address], [facility] Urea nitrogen [Mass/Vol] 11 mg/dL Normal 7-25 [facility] Comment on above: Order Comment: No: D o not add to previous draw Performed By: #### 5 0103 #### [facility] [address] [place] [address], [place] CBC W/DIFFon 08-24-2018 ABS BASOPHILS 0.0 10*3/uL Normal 0.0-0.2 [facility] Comment on above: Order Comment: No: D o not add to previous draw Performed By: #### 5 0103 #### [facility] [address] [place] [address], [facility] ABS IMM GRANS 0.1 10*3/uL Normal 0.0-0.2 [facility] Comment on above: Order Comment: No: D o not add to previous draw Performed By: #### 5 0103 #### [facility] [address] [facility] [place] [address], [facility] ABS NEUTROPHILS 12.5 10*3/uL High 1.6-7.6 [facility] Comment on above: Order Comment: No: D o not add to previous draw Performed By: #### 5 0103 #### [facility] [address] [facility] [place] [address], [facility] Basophils/100 WBC (Bld) 0.3 % Normal 0.0-1.0 [facility] Comment on above: Order Comment: No: D o not add to previous draw Performed By: #### 5 0103 #### [facility] [address] [facility] [place] [address], [facility] Eosinophils (Bld) [#/Vol] 0.0 10*3/uL Normal 0.0-0.5 [facility] Comment on above: Order Comment: No: D o not add to previous draw Performed By: #### 5 0103 #### [facility] [address] [facility]. [place] [id number], [facility] Eosinophils/100 WBC (Bld) 0.0 % Normal 0.0-6.0 [facility] Comment on above: Order Comment: No: D o not add to previous draw Performed By: #### 5 0103 #### [facility] [address] [place] [address], [facility] Erythrocyte distribution width (RBC) [Ratio] 13.0 % Normal 11.5-15.0 [facility] Comment on above: Order Comment: No: D o not add to previous draw Performed By: #### 5 0103 #### [facility] [address] [place] [address], [facility] Hematocrit (Bld) [Volume fraction] 31.7 % Low 36.0-45.0 [facility] Comment on above: Order Comment: No: D o not add to previous draw Performed By: #### 5 0103 #### [facility] [address] [place] [address], [facility] Hemoglobin (Bld) [Mass/Vol] 10.3 g/dL Low 12.0-15.0 [facility] Comment on above: Order Comment: No: D o not add to previous draw Performed By: #### 5 0103 #### [facility] [address] [facility] [place] [address], [facility] IMMATURE GRANS 0.5 % Normal 0.0-1.0 [facility] Comment on above: Order Comment: No: D o not add to previous draw Performed By: #### 5 0103 #### [facility] [address] [facility] [place] [address], [facility] Lymphocytes (Bld) [#/Vol] 1.9 10*3/uL Normal 1.2-4.0 [facility] Comment on above: Order Comment: No: D o not add to previous draw Performed By: #### 5 0103 #### [facility] [address] [facility] [place] [address], [facility] Lymphocytes/100 WBC (Bld) 11.9 % Low 20.0-45.0 [facility] Comment on above: Order Comment: No: D o not add to previous draw Performed By: #### 5 0103 #### [facility] [address] [place] [address], [facility] MCH (RBC) [Entitic mass] 31.7 pg Normal 27.0-33.0 [facility] Comment on above: Order Comment: No: D o not add to previous draw Performed By: #### 5 0103 #### [facility] [address] [place] [address], [facility] MCHC (RBC) [Mass/Vol] 32.5 g/dL Normal 32.0-35.0 [facility] Comment on above: Order Comment: No: D o not add to previous draw Performed By: #### 5 0103 #### [facility] [address] [place] [address], [facility] MCV (RBC) [Entitic vol] 97.5 fL Normal 82.0-98.0 [facility] Comment on above: Order Comment: No: D o not add to previous draw Performed By: #### 5 0103 #### [facility] [address] [facility] [place] [address], [facility] Monocytes (Bld) [#/Vol] 1.2 10*3/uL High 0.1-1.0 [facility] Comment on above: Order Comment: No: D o not add to previous draw Performed By: #### 5 0103 #### [facility] [address] [place] [address], [facility] MONOS 7.7 % Normal 5.0-12.0 [facility] Comment on above: Order Comment: No: D o not add to previous draw Performed By: #### 5 0103 #### [facility] [address] [place] [address], [facility] Neutrophils/100 WBC (Bld) 79.6 % High 40.0-72.0 [facility] Comment on above: Order Comment: No: D o not add to previous draw Performed By: #### 5 0103 #### [facility] [address] [place] [id number], [facility] Nucleated RBC/100 WBC (Bld) [Ratio] 0 % Normal 0-0 [facility] Comment on above: Order Comment: No: D o not add to previous draw Performed By: #### 5 0103 #### [facility] [address] [place] [id number], [facility] PLAT CNT 263 10*3/uL Normal 150-400 [facility] Comment on above: Order Comment: No: D o not add to previous draw Performed By: #### 5 0103 #### [facility] [address] [place] [address], [facility] RBC (Bld) [#/Vol] 3.25 10*6/uL Low 3.80-5.00 [facility] Comment on above: Order Comment: No: D o not add to previous draw Performed By: #### 5 0103 #### [facility] [address] [place] [address], [facility] WBC (Bld) [#/Vol] 15.70 10*3/uL High 4.00-10.[address] [facility] Comment on above: Order Comment: No: D o not add to previous draw Performed By: #### 5 0103 #### [facility] [address] [place] [id number], [facility] LIPID PROFILEon 08-24-2018 Cholesterol [Mass/Vol] 128 mg/dL Normal 120-200 [facility] Comment on above: Order Comment: No: D o not add to previous draw Result Comment: CHOL ESTEROL REFERENCE RANGE: 20 YEARS AND OLDER CARDIOVASCULAR RISK Less than 200 mg/dl Low Risk 200 to 239 mg/dl Borderline Risk 240 mg/dl and greater High Risk Performed By: #### 5 0103 #### [facility] [address] [place] [address], [facility] Cholesterol in HDL [Mass/Vol] 49 mg/dL Normal 23-92 [facility] Comment on above: Order Comment: No: D o not add to previous draw Result Comment: Slig ht variation in normal range could be due to gender and/or age. HDL CHOLESTEROL REFERENCE RANGE: 20 years and older Cardiovascular Risk > or =60 mg/dL Desirable 40 TO 59 mg/dL Low Risk <40 mg/dL High Risk Performed By: #### 5 0103 #### [facility] [address] [place] [address], [facility] Cholesterol in LDL [Mass/Vol] 65 mg/dL Normal 0-[address] [facility] Comment on above: Order Comment: No: D o not add to previous draw Result Comment: LDL IS A CALCULATION LDL IS ONLY VALID IF THE TRIG IS LESS THAN 400. Performed By: #### 5 0103 #### [facility] [address] [place] [address], [facility] Cholesterol.total/Ch olesterol in HDL [Mass ratio] 2.6 {ratio} Normal .0-4.5 [facility] Comment on above: Order Comment: No: D o not add to previous draw Performed By: #### 5 0103 #### [facility] [address] [place] [address], [facility] NON-HDL CHOLESTEROL 79 mg/dL Normal [facility] Comment on above: Order Comment: No: D o not add to previous draw Performed By: #### 5 0103 #### [facility] [address] [facility] [place] [address], [facility] Triglyceride [Mass/Vol] 69 mg/dL Normal 40-149 [facility] Comment on above: Order Comment: No: D o not add to previous draw Result Comment: TRIG LYCERIDE REFERENCE RANGE: 20 YEARS AND OLDER CARDIOVASCULAR RISK LESS THAN 150 mg/dl LOW RISK 150 TO 199 mg/dl BORDERLINE RISK 200 mg/dl AND GREATER HIGH RISK Performed By: #### 5 0103 #### [facility] [address] [place] [address], [facility] VLDL CHOL 14 mg/dL Normal 0-[address] [facility] Comment on above: Order Comment: No: D o not add to previous draw Performed By: #### 5 0103 #### [facility] [address] [place] [address], [place] POC GLUCOSE LABon 08-24-2018 Glucose [Mass/Vol] 162 mg/dL High 70-100 [facility] Comment on above: Performed By: #### 5 6101, [id number] #### [facility] [address] [place] [address], [place] Glucose [Mass/Vol] 146 mg/dL High 70-100 [facility] Comment on above: Performed By: #### 5 610, [id number] #### [facility] [address] [place] [address], [place] Glucose [Mass/Vol] 213 mg/dL High 70-100 [facility] Comment on above: Performed By: #### 5 6101, [id number] #### [facility] [address] [place] [address], [place] Glucose [Mass/Vol] 81 mg/dL Normal 70-100 [facility] Comment on above: Performed By: #### 5 6101, [id number] #### [facility] [address] [place] [address], [place] BASIC METABOLIC PANELon 05- Calcium [Mass/Vol] 8.4 mg/dL Low 8.6-10.3 [facility] Comment on above: Order Comment: Yes: Add to Previous draw if able Performed By: #### 5 0103 #### [facility] [address] [place] [address], [place] Chloride [Moles/Vol] 103 mmol/L Normal 98-107 [facility] Comment on above: Order Comment: Yes: Add to Previous draw if able Performed By: #### 5 010 #### [facility] [address] [place] [address], [place] CO2 [Moles/Vol] 26 mmol/L Normal 21-31 [facility] Comment on above: Order Comment: Yes: Add to Previous draw if able Performed By: #### 5 0103 #### [facility] [address] [place] [address], [place] Creatinine [Mass/Vol] 1.03 mg/dL Normal 0.60-1.20 [facility] Comment on above: Order Comment: Yes: Add to Previous draw if able Performed By: #### 5 0103 #### [facility] [address] [place] [address], [place] GFR/1.73 sq M predicted among blacks MDRD (S/P/Bld) [Vol rate/Area] mL/min/{1.73_m2} Normal >60 [facility] Comment on above: Order Comment: Yes: Add to Previous draw if able Performed By: #### 5 0103 #### [facility] [address] [place] [address], [place] GFR/1.73 sq M predicted among non-blacks MDRD (S/P/Bld) [Vol rate/Area] 54 ml/min/1.73sq m Abnormal >60 The [facility] Comment on above: Order Comment: Yes: Add to Previous draw if able Performed By: #### 5 0103 #### [facility] [address] [place] [address], [place] Glucose [Mass/Vol] 209 mg/dL High 70-100 [facility] Comment on above: Order Comment: Yes: Add to Previous draw if able Performed By: #### 5 0103 #### [facility] [address] [place] [address], [place] Potassium [Moles/Vol] 3.9 mmol/L Normal 3.5-5.1 [facility] Comment on above: Order Comment: Yes: Add to Previous draw if able Performed By: #### 5 0103 #### [facility] [address] [place] [address], [place] Sodium [Moles/Vol] 135 mmol/L Low 136-145 [facility] Comment on above: Order Comment: Yes: Add to Previous draw if able Performed By: #### 5 3 #### [facility] [address] [place] [address], [facility] Urea nitrogen [Mass/Vol] 16 mg/dL Normal 7-25 [facility] Comment on above: Order Comment: Yes: Add to Previous draw if able Performed By: #### 3 #### [facility] [address] CBC COMPLETE BLOOD COUNTon 0 08-23-2018 Erythrocyte distribution width (RBC) [Ratio] 12.8 % Normal 11.5-15.0 [facility] Comment on above: Order Comment: Yes: Add to Previous draw if able Performed By: #### 5 102 #### [facility] [address] [place] [address], [facility] Hematocrit (Bld) [Volume fraction] 35.0 % Low 36.0-45.0 [facility] Comment on above: Order Comment: Yes: Add to Previous draw if able Performed By: #### 5 3 #### [facility] [address] [place] [address], [facility] Hemoglobin (Bld) [Mass/Vol] 11.2 g/dL Low 12.0-15.0 [facility] Comment on above: Order Comment: Yes: Add to Previous draw if able Performed By: #### 5 3 #### [facility] [address] [place] [address], [facility] MCH (RBC) [Entitic mass] 31.5 pg Normal 27.0-33.0 [facility] Comment on above: Order Comment: Yes: Add to Previous draw if able Performed By: #### 5 3 #### [facility] [address] [place] [address], [facility] MCHC (RBC) [Mass/Vol] 32.0 g/dL Normal 32.0-35.0 [facility] Comment on above: Order Comment: Yes: Add to Previous draw if able Performed By: #### 5 0103 #### [facility] [address] [place] [address], [facility] MCV (RBC) [Entitic vol] 98.3 fL High 82.0-98.0 [facility] Comment on above: Order Comment: Yes: Add to Previous draw if able Performed By: #### 5 0103 #### [facility] [address] [facility] [place] [address], [facility] Nucleated RBC/100 WBC (Bld) [Ratio] 0 % Normal 0-0 [facility] Comment on above: Order Comment: Yes: Add to Previous draw if able Performed By: #### 5 0103 #### [facility] [address] [facility] [place] [address], [facility] PLAT CNT 276 10*3/uL Normal 150-400 The [facility] Comment on above: Order Comment: Yes: Add to Previous draw if able Performed By: #### 5 0103 #### [facility] [address] [facility] [place] [address], [facility] RBC (Bld) [#/Vol] 3.56 10*6/uL Low 3.80-5.00 The [facility] Comment on above: Order Comment: Yes: Add to Previous draw if able Performed By: #### 5 0103 #### [facility] [address] [facility] [place] [address], [facility] WBC (Bld) [#/Vol] 14.61 10*3/uL High 4.00-10.60 [facility] Comment on above: Order Comment: Yes: Add to Previous draw if able Performed By: #### 5 0103 #### [facility] [address] [facility] [place] [address], [facility] CERVICAL SPINE 2 OR 3 VWSon 08-23-2018 CERVICAL SPINE 2 OR 3 [facility] Department of Radiology [address] [place] [id number] Patient Name: CRISELDA MORFIN : 1955 Sex: [...] FUSION Exam: CERVICAL SPINE 2 OR 3 VWS CERVICAL SPINE 2 OR 3 VWS 08/23/2018 11:29 AM EDT SIGNS AND SYMPTOMS: [...] C6. Electronically signed by:Xiomara Nath. Transcribed by: [email or web address], User Resident: Electronically Signed by: XIOMARA NATH @ 08/23/2018 04:07 PM Normal [facility] Comment on above: Order Comment: C4-C5 , C5-C6 ANTERIOR CERVICAL DISCECTOMY WITH FUSION Operative Reporton 9 Operative Report MR#: [id number] [facility] Pt. Name: Criselda Morfin Room #: 0C Discharge Date: Birthdate: 1955 OPERATIVE REPORT DATE OF SURGERY: 08/23/2018 SURGEON: Demetris Askew M.D. 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 POSTOPERATIVE DIAGNOSIS: Herniated cervical disk and spinal stenosis from C4 through C6. BPM DEVELOPER: ELIDIA Castle. ANESTHESIA: Endotracheal, Dr. [place]. PROCEDURE: [...] size 8 at C5-6. The plate was [place], size 35 mm. The screws were 6, [...] Askew M.D. Date Trans: 08/23/2018 01:26 P/kari [id number] Normal [facility] POC GLUCOSE LABon 08-23-2018 Glucose [Mass/Vol] 157 mg/dL High 70-100 [facility] Comment on above: Performed By: #### 5 0103 #### [facility] [address] [place] [address] Glucose [Mass/Vol] 190 mg/dL High 70-100 [facility] Comment on above: Performed By: #### 5 0103 #### [facility] [address] Glucose [Mass/Vol] 182 mg/dL High 70-100 [facility] Comment on above: Performed By: #### 5 0103 #### [facility] [address] [place] [address], [facility] Glucose [Mass/Vol] 94 mg/dL Normal 70-100 [facility] Comment on above: Performed By: #### 5 0103 #### [facility] [address] *MRSA/MSSA DNA NASALon 08-08 *MRSA/MSSA DNA NASAL Clinical Report: (D ) Specimen: NASAL SWAB Collected: 08/08/2018 15:04 Status: Final Last Updated: 08/08/2018 20:45 MSSA DNA (Final) Negative MRSA DNA (Final) Negative Normal [facility] Comment on above: Performed By: #### 3 1595 #### [facility] [address] *URINE CULTUREon 08-08-2018 Bacteria identified Cx Nom [...] CEFAZOLIN (CZ) 2 Susceptible 4 Susceptible CEFTRIAXONE (INSTALLER INTERIOR [employer]SEMBLIES) <=0.5 Susceptible <=0.5 Susceptible CIPROFLOXACIN (CIP) <=0.5 Susceptible <=0.5 Susceptible GENTAMICIN (GM) 1 Susceptible 4 Susceptible MEROPENEM (MEM) <=0.125 Susceptible NITROFURANTOIN (FT) 32 Susceptible >64 Resistant PIP/TAZO (TZP) 4/4 Susceptible PIP/TAZO (TZP) <=2/4 Susceptible TOBRAMYCIN (TOB) 1 Susceptible 2 Susceptible TRIMETH/SULFA (SXT) <=0.5/9.5 Susceptible <=0.5/9.5 Susceptible Antibiotic Summary Grid: AMS AM AZM CZ INSTALLER INTERIOR ASSEMBLIES CIP GM MEM FT TZP TOB Citrobacter S R S S S S S S S S S amalonaticus complex Proteus mirabilis S S S S S S S R S S SXT Citrobacter S amalonaticus complex Proteus mirabilis S Normal [facility] Comment on above: Performed By: #### 3 0339 #### [facility] [address] APTTon 08-08-2018 aPTT Coag (Bld) [Time] 28.0 s Normal 25.0-35.[address] [facility] Comment on above: Result Comment: ALL RESULTS [...] THIS PURPOSE. Performed By: #### 5 [id number], [id number] #### [facility] [address] BASIC METABOLIC PANELon - Calcium [Mass/Vol] 9.6 mg/dL Normal 8.6-10.3 [facility] Comment on above: Performed By: #### 0 0071 #### [facility] [address] [place] [address], [place] Chloride [Moles/Vol] 103 mmol/L Normal 98-107 [facility] Comment on above: Performed By: #### 0 0071 #### [facility] [address] [place] [address], [place] CO2 [Moles/Vol] 30 mmol/L Normal 21-31 [facility] Comment on above: Performed By: #### 0 0071 #### [facility] [address] [place] [address], [place] Creatinine [Mass/Vol] 1.07 mg/dL Normal 0.60-1.20 [facility] Comment on above: Performed By: #### 0 0071 #### [facility] [address] [place] [address], [place] GFR/1.73 sq M predicted among blacks MDRD (S/P/Bld) [Vol rate/Area] mL/min/{1.73_m2} Normal >60 [facility] Comment on above: Performed By: #### 0 0071 #### [facility] [address] [place] [address], [place] GFR/1.73 sq M predicted among non-blacks MDRD (S/P/Bld) [Vol rate/Area] 52 ml/min/1.73sq m Abnormal >60 [facility] Comment on above: Performed By: #### 0 0071 #### [facility] [address] [place] [address], [place] Glucose [Mass/Vol] 93 mg/dL Normal 70-100 [facility] Comment on above: Performed By: #### 0 0071 #### [facility] [address] [place] [address], [place] Potassium [Moles/Vol] 4.2 mmol/L Normal 3.5-5.1 [facility] Comment on above: Performed By: #### 0 0071 #### [facility] [address] Sodium [Moles/Vol] 139 mmol/L Normal 136-145 [facility] Comment on above: Performed By: #### 0 1 #### [facility] [address] Urea nitrogen [Mass/Vol] 18 mg/dL Normal 7-25 [facility] Comment on above: Performed By: #### 0 1 #### [facility] [address] CBC W/DIFFon 08-08-2018 ABS BASOPHILS 0.1 10*3/uL Normal 0.0-0.2 [facility] Comment on above: Performed By: #### 5 102 #### [facility] [address] ABS IMM GRANS 0.0 10*3/uL Normal 0.0-0.2 [facility] Comment on above: Performed By: #### 5 102 #### [facility] [address] ABS NEUTROPHILS 5.0 10*3/uL Normal 1.6-7.6 [facility] Comment on above: Performed By: #### 5 3 #### [facility] [address] Basophils/100 WBC (Bld) 0.9 % Normal 0.0-1.0 [facility] Comment on above: Performed By: #### 5 102 #### [facility] [address] Eosinophils (Bld) [#/Vol] 0.2 10*3/uL Normal 0.0-0.5 [facility] Comment on above: Performed By: #### 5 0103 #### [facility] [address] [place] [address], [facility] Eosinophils/100 WBC (Bld) 1.8 % Normal 0.0-6.0 [facility] Comment on above: Performed By: #### 102 #### [facility] [address] [place] [address], [facility] Erythrocyte distribution width (RBC) [Ratio] 13.1 % Normal 11.5-15.0 [facility] Comment on above: Performed By: #### 102 #### [facility] [address] [facility] [place] [address], [facility] Hematocrit (Bld) [Volume fraction] 37.2 % Normal 36.0-45.0 [facility] Comment on above: Performed By: #### 102 #### [facility] [address] [facility] [place] [address], [facility] Hemoglobin (Bld) [Mass/Vol] 12.3 g/dL Normal 12.0-15.0 [facility] Comment on above: Performed By: #### 102 #### [facility] [address] [facility] [place] [address], [facility] IMMATURE GRANS 0.5 % Normal 0.0-1.0 [facility] Comment on above: Performed By: #### 3 #### [facility] [address] [facility] [place] [address], [facility] Lymphocytes (Bld) [#/Vol] 2.2 10*3/uL Normal 1.2-4.0 [facility] Comment on above: Performed By: #### 3 #### [facility] [address] [facility] [place] [address], [facility] Lymphocytes/100 WBC (Bld) 26.5 % Normal 20.0-45.0 [facility] Comment on above: Performed By: #### 102 #### [facility] [address] [facility] [address] MCH (RBC) [Entitic mass] 31.4 pg Normal 27.0-33.0 [facility] Comment on above: Performed By: #### 5 0103 #### [facility] [address] [facility] [address] MCHC (RBC) [Mass/Vol] 33.1 g/dL Normal 32.0-35.0 [facility] Comment on above: Performed By: #### 5 0103 #### [facility] [address] [facility] [place] [address], [facility] MCV (RBC) [Entitic vol] 94.9 fL Normal 82.0-98.0 [facility] Comment on above: Performed By: #### 5 3 #### [facility] [address] [facility]. [address] Monocytes (Bld) [#/Vol] 0.7 10*3/uL Normal 0.1-1.0 [facility] Comment on above: Performed By: #### 5 0103 #### [facility] [address] [facility]. [address] MONOS 8.3 % Normal 5.0-12.0 [facility] Comment on above: Performed By: #### 5 0103 #### [facility] [address] [facility] [address] Neutrophils/100 WBC (Bld) 62.0 % Normal 40.0-72.0 [facility] Comment on above: Performed By: #### 5 0103 #### [facility] [address] [facility] [place] [address], [facility] Nucleated RBC/100 WBC (Bld) [Ratio] 0 % Normal 0-0 [facility] Comment on above: Performed By: #### 5 0103 #### [facility] [address] [facility] [address] PLAT CNT 325 10*3/uL Normal 150-400 [facility] Comment on above: Performed By: #### 5 0103 #### [facility] [address] [facility] [place] [address], [facility] RBC (Bld) [#/Vol] 3.92 10*6/uL Normal 3.80-5.00 [facility] Comment on above: Performed By: #### 5 0103 #### [facility] [address] [place] [address], [facility] WBC (Bld) [#/Vol] 8.12 10*3/uL Normal 4.00-10.60 [facility] Comment on above: Performed By: #### 5 0103 #### [facility] [address] CERVICAL SPINE 4 OR 5 VIEWSo 08-08-2018 CERVICAL SPINE 4 OR 5 VIEWS [facility] Department of Radiology [address] [place] [address] [id number] Patient Name: CRISELDA MORFIN : 1955 Sex: F Age: Race: White Pt. Location: Patient Status: O Ordered Date: 08/08/2018 2:25:00 PM Completed Date: 08/08/2018 02:48 PM Requesting Provider: DEMETRIS ASKEW Attending Provider: DEMETRIS ASKEW Report Copy To: DEMETRIS ASKEW Signs & Symptoms: M48.02 Spinal stenosis, cervical region I10 History: [place] Comments: , POST OP XRAY AP/LAT ONLY , POST OP XRAY AP/LAT ONLY , , , Ordering Charlene ASKEW MD , Exam: CERVICAL SPINE 4 OR 5 VIEWS CERVICAL SPINE 4 OR 5 VIEWS 08/08/2018 2:48 PM EDT SIGNS AND SYMPTOMS: M48.02 Spinal stenosis, cervical region I10 TECHNOLOGIST COMMENTS: Neck pain Surgery scheduled for August 2018 QUESTION FOR THE RADIOLOGIST: , POST OP XRAY AP/LAT ONLY , POST OP XRAY AP/LAT ONLY , , , Ordering Charlene - DEMETRIS ASKEW MD , PROTOCOLS: AP,Odontoid, [...] level Electronically signed by:Xiomara Nath. Transcribed by: [email or web address], User Resident: Electronically Signed by: XIOMARA NATH @ 08/08/2018 03:24 PM Normal [facility] Comment on above: Order Comment: , POS T OP XRAY AP/LAT ONLY , POST OP XRAY AP/LAT ONLY , , , Ordering Charlene ASKEW MD , HEMOGLOBIN A1Con 08-08-2018 HbA1c (Bld) [Mass fraction] 154 mg/dL High 70-[address] [facility] Comment on above: Performed By: #### 4 6447 #### [facility] [address] [facility]. [address] HbA1c (Bld) [Mass fraction] 7.0 % High 4.0-6.0 [facility] Comment on above: Performed By: #### 4 6447 #### [facility] [address] [facility]. [address] PROTHROMBIN TIMEon 9 INR Coag (PPP) [Relative time] 0.93 {INR} Normal 0.91-1.16 [facility] Comment on above: Result Comment: ACCC P [...] CHEST 1995;[id number]. Performed By: #### 5 6101, [id number] #### [facility] [address] [facility] [place] [address], [facility] PT Coag (PPP) [Time] 12.5 s Normal 12.3-14.8 [facility] Comment on above: Result Comment: ALL RESULTS MUST BE INTERPRETED WITH RESPECT TO BLOOD DRAWING ARTIFACT OR DILUTION ERROR OF ANTICOAGULANT AT THE TIME OF SAMPLING. Performed By: #### 5 6101, [id number] #### [facility] 3000 [facility] [address] TYPE AND CROSSMATCHon 2018 ABO INTERPRETATION O Normal [facility] Comment on above: Performed By: #### 6 2594 #### [facility] [address] [place] [address], [place] RH INTERPRETATION Positive Normal [facility] Comment on above: Performed By: #### 6 2594 #### [facility] [address] [place] [address], [place] URINALYSIS REFLEXon 08-09-19 19 Appearance (U) CLEAR Normal CLEAR [facility] Comment on above: Performed By: #### 3 0965 #### [facility] [address] [place] [address], [place] Bilirubin [Mass/Vol] Negative Normal NEGATIVE [facility] Comment on above: Performed By: #### 3 0965 #### [facility] [address] [place] [address], [place] BLOOD Negative Normal NEGATIVE [facility] Comment on above: Performed By: #### 3 0965 #### [facility] [address] [place] [address], [place] Color (U) STRAW Abnormal YELLOW [facility] Comment on above: Performed By: #### 3 0965 #### [facility] [address] [place] [address], [place] EPIS NONE SEEN Normal FEW,OCC,NONE SEEN [facility] Comment on above: Performed By: #### 3 0965 #### [facility] [address] [place] [address], [place] Glucose [Mass/Vol] Negative Normal NEGATIVE [facility] Comment on above: Performed By: #### 3 0965 #### [facility] [address] [place] [address], [place] KETONE Negative Normal NEGATIVE [facility] Comment on above: Performed By: #### 3 0965 #### [facility] [address] [place] [address], [place] LEUK ALVARADO TRACE Abnormal NEGATIVE [facility] Comment on above: Performed By: #### 3 0965 #### [facility] [address] [place] [address], [place] Nitrite Ql (U) Negative Normal NEGATIVE [facility] Comment on above: Performed By: #### 3 0965 #### [facility] [address] [place] [address], [place] pH (Bld) 6.0 Normal 5.0-8.0 [facility] Comment on above: Performed By: #### 3 0965 #### [facility] [address] [place] [address], [place] Protein (U) [Mass/Vol] Negative Normal NEGATIVE [facility] Comment on above: Performed By: #### 3 0965 #### [facility] [address] [place] [address], [place] RBC (U) [#/Vol] 0-2 Abnormal NONE SEEN [facility] Comment on above: Performed By: #### 3 0965 #### [facility] [address] [place] [address], [place] SPEC GRAV 1.011 Low 1.015-1.020 [facility] Comment on above: Performed By: #### 3 0965 #### [facility] [address] [facility] [address], [place] WBC UA 0-2 Abnormal NONE SEEN [facility] Comment on above: Performed By: #### 3 0965 #### [facility] [address] [place] [address], [place] Vital Signs Date Time Vital Sign Value Performing Clinician Facility 09-24-2022 08:10-0400 Body height 149.86 cm Rin Nicholson Other [facility] Other 09-24-2022 08:10-0400 Body mass index (BMI) [Ratio] 29.89 kg/m2 Rin Nicholson Other [facility] Other 09-24-2022 08:10-0400 Body temperature 98.6 [degF] Rin Nicholson Other [facility] Other 09-24-2022 08:10-0400 Body weight 67.13 kg Rin Nicholson Other [facility] Other 09-24-2022 08:10-0400 Diastolic blood pressure 84 mm[Hg] Rin Nicholson Other [facility] Other 09-24-2022 08:10-0400 Respiratory rate 18 /min Rin Nicholson Other [facility] Other 09-24-2022 08:10-0400 SaO2% (BldA) [Mass fraction] 97 % Rin Nicholson Other [facility] Other 09-24-2022 08:10-0400 Systolic blood pressure 126 mm[Hg] Rin Nicholson Other [facility] Other 08-09-2022 18:20-0400 Body height 149.86 cm Rin Nicholson Other [facility] Other 08-09-2022 18:20-0400 Body mass index (BMI) [Ratio] 29.89 kg/m2 Rin Nicholson Other [facility] Other 08-09-2022 18:20-0400 Body temperature 98.2 [degF] Rin Nicholson Other [facility] Other 08-09-2022 18:20-0400 Body weight 67.13 kg Rin Nicholson Other [facility] Other 08-09-2022 18:20-0400 Diastolic blood pressure 78 mm[Hg] Rin Nicholson Other [facility] Other 08-09-2022 18:20-0400 Respiratory rate 16 /min Rin Nicholson Other [facility] Other 08-09-2022 18:20-0400 SaO2% (BldA) [Mass fraction] 98 % Rin Nicholson Other [facility] Other 08-09-2022 18:20-0400 Systolic blood pressure 136 mm[Hg] Rin Nicholson Other [facility] Other 02-08-2022 18:00-0400 Body height 149.86 cm Rin Nicholson Other [facility] Other 02-08-2022 18:00-0400 Body mass index (BMI) [Ratio] 28.98 kg/m2 Rin Nicholson Other [facility] Other 02-08-2022 18:00-0400 Body temperature 98.1 [degF] Rin Nicholson Other [facility] Other 02-08-2022 18:00-0400 Body weight 65.09 kg Rin Nicholson Other [facility] Other 02-08-2022 18:00-0400 Diastolic blood pressure 80 mm[Hg] Rin Nicholson Other [facility] Other 02-08-2022 18:00-0400 Respiratory rate 16 /min Rin Nicholson Other [facility] Other 02-08-2022 18:00-0400 SaO2% (BldA) [Mass fraction] 99 % Rin Nicholson Other [facility] Other 02-08-2022 18:00-0400 Systolic blood pressure 136 mm[Hg] Rin Nicholson Other [facility] Other Encounters Encounter Date Encounter Type Care Provider Facility Start: 05-16-2023 End: 05-16-2023 ambulatory Rin Nicholson Other [facility] Other Start: 05-16-2023 Telephone encounter Rin Nicholson [facility] [place] Start: 05-03-2023 End: 05-03-2023 ambulatory Rin Nicholson Facility:[facility] Start: 05-03-2023 Encounter by compute r link Rin Nicholson [facility] [place] Start: 05-03-2023 End: 05-03-2023 ambulatory DO Rin Nicholson Work Phone: [facility] Work Phone: Start: 05-03-2023 End: 05-03-2023 Patient encounter procedure DO Rin Nicholson Work Phone: [facility] Work Phone: Start: 04-12-2023 End: 04-12-2023 ambulatory Rin Nicholson Other [facility] Other Start: 04-12-2023 Telephone encounter Rin Nicholson [facility] [place] Start: 04-04-2023 End: 04-04-2023 ambulatory Rin Nicholson Other [facility] Other Start: 04-04-2023 Telephone encounter Rin Nicholson [facility] [place] Start: 03-21-2023 End: 03-21-2023 ambulatory Rin Nicholson Other [facility] Other Start: 03-21-2023 Telephone encounter Rin Nicholson [facility] [place] Start: 02-23-2023 End: 02-23-2023 ambulatory Rin Nicholson Other [facility] Other Start: 02-23-2023 Telephone encounter Rin Nicholson [facility] [place] Start: 09-24-2022 End: 09-24-2022 ambulatory Rin Nicholson Other [facility] Other Start: 09-24-2022 Office outpatient vi sit 15 minutes Rin Nicholson [facility] [place] Start: 08-30-2022 End: 08-31-[address] RIN NICHOLSON Facility:[facility] Start: 08-17-2022 End: 08-17-2022 ambulatory Rin Nicholson Other [facility] Other Start: 08-17-2022 Telephone encounter Rin Nicholson [facility] [place] Start: 08-16-2022 End: 08-17-[address] RIN NICHOLSON Facility:[facility] Start: 08-09-2022 End: 08-09-2022 ambulatory Rin Nicholson Other [facility] Other Start: 08-09-2022 Office outpatient vi sit 25 minutes Rin Nicholson [facility] [place] Start: 08-06-2022 End: 08-06-2022 ambulatory Rin Nicholson Other [facility] Other Start: 08-06-2022 Telephone encounter Rin Nicholson [facility] [place] Start: 07-31-2022 End: 08-01-[address] RIN NICHOLSON Facility:[facility] Start: 06-04-2022 End: 06-04-2022 ambulatory Rin Nicholson Other [facility] Other Start: 06-04-2022 Telephone encounter Rin Nicholson [facility] [place] Start: 05-24-2022 End: 05-24-2022 ambulatory Rin Nicholson Other [facility] Other Start: 05-24-2022 Telephone encounter Rin Nicholson [facility] [place] Start: 05-14-2022 End: 05-14-2022 ambulatory Rin Nicholson Other [facility] Other Start: 05-14-2022 Telephone encounter Rin Nicholson [facility] [place] Start: 04-30-2022 End: 04-30-[address] BETTINA MULLIGAN . Facility:[facility] Start: 04-22-2022 End: 04-22-2022 ambulatory Rin Nicholson Other [facility] Other Start: 04-22-2022 Telephone encounter Rin Nicholson [facility] [place] Start: 03-29-2022 End: 03-29-2022 ambulatory Rin Nicholson Other [facility] Other Start: 03-29-2022 Telephone encounter Rin Nicholson [facility] [place] Start: 03-27-2022 End: 03-28-[address] RIN NICHOLSON Facility:[facility] Start: 02-08-2022 End: 02-08-2022 ambulatory Rin Nicholson Other [facility] Other Start: 02-08-2022 Office outpatient vi sit 25 minutes Rin Nicholson [facility] [place] Start: 01-22-2022 End: 01-23-[address] RIN NICHOLSON Facility:[facility] Start: 08-23-2018 End: 08-25-2018 Evaluation and management of inpatient PROVIDER UNKNOWN Facility:[facility] Start: 05-11-2018 Patient encounter procedure [...] OF CERVICA L VERTEBRAL DISC, OPEN APPROACH AZEDINE MEDHKOUR Start: 08-08-2018 Antibody screen PROVIDE R UNKNOWN Comment on above: Performed By: #### 6 [id number] #### [facility] [address] Immunizations Immunization Date Immunization Notes Care Provider Fa hunter 04-26-2023 Prevnar 20 Rin Nicholson Other [facility] Other 04-08-2023 COVID-19 Moderna (SPIKEVAX) Rin Nicholson Other [facility] Other 04-08-2023 zoster vaccine recombinant Rin Nicholson Other [facility] Other 03-22-2023 Flu Shot - Documentation Purposes Only Rin Nicholson Other [facility] Other 02-08-2022 Shingrix 50 MCG/0.5M L; 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: [Shingrix 50 MCG/0.5ML] Rin Nicholson Other [facility] Other 01-15-2022 influenza, seasonal, injectable Rin Nicholson Other [facility] Other 01-15-2022 COVID-19 Pfizer (bivalent) Rin Nicholson Other [facility] Other 07-31-2021 COVID-19 Vaccine Moderna - Documentation Purposes Only Rin Nicholson Other [facility] Other 02-20-2021 COVID-19 Vaccine Moderna - Documentation Purposes Only Rin Nicholson Other [facility] Other 07-26-2020 COVID-19 Brittany Romero n Other [facility] Other 06-28-2020 COVID-19 Brittany Romero n Other [facility] Other 02-18-2020 influenza, seasonal, injectable Rin Kesslerbaljit Other [facility] Other 02-19-2017 influenza, seasonal, injectable Rin Lyn Other [facility] Other 03-08-2016 influenza, seasonal, injectable Rin Kesslerbaljit Other [facility] Other 05-07-2013 influenza virus vaccine, split virus (incl. purified surface antigen) Rin Nicholson Other [facility] Other 03-24-2012 influenza, seasonal, injectable, preservative free Rin Nicholson Other [facility] Other Payers Date Payer Category Payer Self-pay [id number] 2023 Unknown [id number] 2022 Medicare [id number] 2.1 [id number] 1959 Unknown [id number] 1955 Unknown [id number] 2.16. [id number] 1955 Unknown [id number] 2.16. [id number] 1955 Unknown [id number] 2.16. [id number] 1955 Unknown [id number] 2.16. [id number] 1955 Unknown [id number] 2.16.8 [id number] 1955 Unknown [id number] 2.16.84 [id number] 1955 Unknown [id number] 2.16.84 [id number] 1955 Unknown [id number] 2.16.84 [id number] 1955 Unknown [id number] 2.16.84 [id number] 1955 Unknown [id number] 2.16.84 [id number] 1955 Unknown [id number] 2.16.84 [id number] Unknown 568 Unknown [id number] 2.16.8 [id number] Social History Date Type Detail Facility Unknown if ever smoked [facility] Other Sex Assigned At Sex Assigned At Bir th [facility] Other Start: 1955 Sex Assigned At Female F [facility] Start: 06-02-2020 Tobacco smoking status NHIS Never smoked tobacco (finding) [facility] Medical Equipment Procedure Code Equipment Code Equipment Origin al Text Equipment Identifier Dates One Touch Lancet s lancets Start: 12-24-2011 Clinical Notes 02-11-2019 to 05-03-2023 Note Date & Type Note Facility 05-03-2023 Evaluation note Encounter Date Diagnosis Assessment Notes Apr, GERD (gastroesop hageal reflux disease) (ICD-10 - K21.9) [facility] Other 2023 Evaluation note* Encounter Date Diagnosis Assessment Notes Treatment Notes Treatment Clinical Notes Mar, Abnormal blood chemistry (ICD-10 - R79.9) Mar, Hypercalcemia (ICD-1 0 - E83.52) Mar, Stage 3a chronic kidney disease (ICD-10 - N18.31) [facility] Other 06-09-2023 Evaluation note* Encounter Date Diagnosis [...] see where her kidney studies are at. [facility] Other 04-24-2023 Evaluation note* Encounter Date Diagnosis [...] results. She may have to see the crystal growing technician again but we will wait and see [...] ice the shoulder or alternate with heat. [facility] Other 01-05-2023 Evaluation note* Encounter Date Diagnosis Assessment Notes Treatment Notes Treatment Clinical Notes Apr, Hypertension (ICD-10 - I10) [facility] Other 10-24-2022 Evaluation note* Encounter Date Diagnosis [...] this. She does agree to see an aviation operations specialist. A referral is provided. Her range [...] her wi th an order for a ShinDeciZium vaccine [facility] Other 02-01-2021 History general Narrative - Reported* Type Description Date Medical History Stress Test; [facility], normal per patient Medical History Pap and Pelvic 3 yea rs ago, OBGYN in [place] Medical History Mammogram over 5 yea rs; Normal at that time per patient Medical History CT Abdomen and Pelvi s over 5 years ago; [facility] Medical History Colonoscopy 8 years ago; in [place], normal in patient Medical History Chest X-Ray 12-15-11; normal, [facility] Medical History Echocardiogram; 12-15; [facility] Medical History Cardiolite Stress Te st 12-16-11; [facility] Medical History Check's sugar's bid Medical History Heart Catherization; [facility] Medical History breast cancer 04/2014 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, status post lumpectomy x2, sentinel lymph node biopsy and adjuvant radiotherapy that concluded on 08-21-14 Medical History 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 - Dr French from [facility] Surgical History Tonsillectomy age 21 Surgical History ovarian tumor removed and left ovary Surgical History complete hysterectomy 1993 Surgical History Heart Catherization; [facility] Surgical History Right Shoulder Tear and bone spur removal; [facility] 07-27-12 Surgical History Left Shoulder Rotato r [...] for a kidney stone Surgical History mammogram [facility] 04/2017 Surgical History vertabrae fusion 08/2018 Hospitalization History ovarian tumor removed an d left overy Hospitalization History complete hysterectomy 19 94 [facility] Other 01-19-2021 History general Narrative - Reported* Type Description Date Medical History Stress Test; [facility], normal per patient Medical History Pap and Pelvic 3 yea rs ago, OBGYN in [place] Medical History Mammogram over 5 yea rs; Normal at that time per patient Medical History CT Abdomen and Pelvi s over 5 years ago; [facility] Medical History Colonoscopy 8 years ago; in [place], normal in patient Medical History Chest X-Ray 12-15-11; normal, [facility] Medical History Echocardiogram; 12-15; [facility] Medical History Cardiolite Stress Te st 12-16-11; [facility] Medical History Check's sugar's bid Medical History Heart Catherization; [facility] Medical History breast cancer 04/2014 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, status post lumpectomy x2, sentinel lymph node biopsy and adjuvant radiotherapy that concluded on 08-21-14 Medical History 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 - Dr French from [facility] Surgical History Tonsillectomy age 21 Surgical History ovarian tumor removed and left ovary Surgical History complete hysterectomy 1993 Surgical History Heart Catherization; [facility] Surgical History Right Shoulder Tear and bone spur removal; [facility] 07-27-12 Surgical History Left Shoulder Rotato r [...] for a kidney stone Surgical History mammogram [facility] 04/2017 Surgical History vertabrae fusion 08/2018 Hospitalization History ovarian tumor removed an d left overy Hospitalization History complete hysterectomy 19 94 [facility] Other 12-27-2020 History general Narrative - Reported* Type Description Date Medical History Stress Test; [facility], normal per patient Medical History Pap and Pelvic 3 yea rs ago, OBGYN in [place] Medical History Mammogram over 5 yea rs; Normal at that time per patient Medical History CT Abdomen and Pelvi s over 5 years ago; [facility] Medical History Colonoscopy 8 years ago; in [place], normal in patient Medical History Chest X-Ray 12-15-11; normal, [facility] Medical History Echocardiogram; 12-15; [facility] Medical History Cardiolite Stress Te st 12-16-11; [facility] Medical History Check's sugar's bid Medical History Heart Catherization; [facility] Medical History breast cancer 04/2014 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, status post lumpectomy x2, sentinel lymph node biopsy and adjuvant radiotherapy that concluded on 08-21-14 Medical History 11/2016 diabetic shif ting in rt eye - Dr French from [facility] Surgical History Tonsillectomy age 21 Surgical History ovarian tumor removed and left ovary Surgical History complete hysterectomy 1993 Surgical History Heart Catherization; [facility] Surgical History Right Shoulder Tear and bone spur removal; [facility] 07-27-12 Surgical History Left Shoulder Rotato r [...] for a kidney stone Surgical History mammogram [facility] 04/2017 Surgical History vertabrae fusion 08/2018 Hospitalization History ovarian tumor removed an d left overy Hospitalization History complete hysterectomy 19 94 [facility] Other 12-20-2020 History general Narrative - Reported* Type Description Date Medical History Stress Test; [facility], normal per patient Medical History Pap and Pelvic 3 yea rs ago, OBGYN in [place] Medical History Mammogram over 5 yea rs; Normal at that time per patient Medical History CT Abdomen and Pelvi s over 5 years ago; [facility] Medical History Colonoscopy 8 years ago; in [place], normal in patient Medical History Chest X-Ray 12-15-11; normal, [facility] Medical History Echocardiogram; 12-15; [facility] Medical History Cardiolite Stress Te st 12-16-11; [facility] Medical History Check's sugar's bid Medical History Heart Catherization; [facility] Medical History breast cancer 04/2014 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, status post lumpectomy x2, sentinel lymph node biopsy and adjuvant radiotherapy that concluded on 08-21-14 Medical History 11/2016 diabetic shif ting in rt eye - Dr French from [facility] Surgical History Tonsillectomy age 21 Surgical History ovarian tumor removed and left ovary Surgical History complete hysterectomy 1993 Surgical History Heart Catherization; [facility] Surgical History Right Shoulder Tear and bone spur removal; [facility] 07-27-12 Surgical History Left Shoulder Rotato r [...] for a kidney stone Surgical History mammogram [facility] 04/2017 Surgical History vertabrae fusion 08/2018 Hospitalization History ovarian tumor removed an d left overy Hospitalization History complete hysterectomy [facility] Other 12-04-2020 History general Narrative - Reported* Type Description Date Medical History Stress Test; [facility], normal per patient Medical History Pap and Pelvic 3 yea rs ago, OBGYN in [place] Medical History Mammogram over 5 yea rs; Normal at that time per patient Medical History CT Abdomen and Pelvi s over 5 years ago; [facility] Medical History Colonoscopy 8 years ago; in [place], normal in patient Medical History Chest X-Ray 12-15-11; normal, [facility] Medical History Echocardiogram; 12-15; [facility] Medical History Cardiolite Stress Te st 12-16-11; [facility] Medical History Check's sugar's bid Medical History Heart Catherization; [facility] Medical History breast cancer 04/2014 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, status post lumpectomy x2, sentinel lymph node biopsy and adjuvant radiotherapy that concluded on 08-21-14 Medical History 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 - Dr French from [facility] Surgical History Tonsillectomy age 21 Surgical History ovarian tumor removed and left ovary Surgical History complete hysterectomy 1993 Surgical History Heart Catherization; [facility] Surgical History Right Shoulder Tear and bone spur removal; [facility] 07-27-12 Surgical History Left Shoulder Rotato r [...] for a kidney stone Surgical History mammogram [facility] 04/2017 Surgical History vertabrae fusion 08/2018 Hospitalization History ovarian tumor removed an d left overy Hospitalization History complete hysterectomy [facility] Other 11-08-2020 History general Narrative - Reported* Type Description Date Medical History Stress Test; [facility], normal per patient Medical History Pap and Pelvic 3 yea rs ago, OBGYN in [place] Medical History Mammogram over 5 yea rs; Normal at that time per patient Medical History CT Abdomen and Pelvi s over 5 years ago; [facility] Medical History Colonoscopy 8 years ago; in [place], normal in patient Medical History Chest X-Ray 12-15-11; normal, [facility] Medical History Echocardiogram; 12-15; [facility] Medical History Cardiolite Stress Te st 12-16-11; [facility] Medical History Check's sugar's bid Medical History Heart Catherization; [facility] Medical History breast cancer 04/2014 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, status post lumpectomy x2, sentinel lymph node biopsy and adjuvant radiotherapy that concluded on 08-21-14 Medical History 11/2016 diabetic shif ting in rt eye - Dr French from [facility] Surgical History Tonsillectomy age 21 Surgical History ovarian tumor removed and left ovary Surgical History complete hysterectomy 1993 Surgical History Heart Catherization; [facility] Surgical History Right Shoulder Tear and bone spur removal; [facility] 07-27-12 Surgical History Left Shoulder Rotato r [...] for a kidney stone Surgical History mammogram [facility] 04/2017 Surgical History vertabrae fusion 08/2018 Hospitalization History ovarian tumor removed an d left overy Hospitalization History complete hysterectomy [facility] Other 06-20-2020 History general Narrative - Reported* Type Description Date Medical History Stress Test; [facility], normal per patient Medical History Pap and Pelvic 3 yea rs ago, OBGYN in [place] Medical History Mammogram over 5 yea rs; Normal at that time per patient Medical History CT Abdomen and Pelvi s over 5 years ago; [facility] Medical History Colonoscopy 8 years ago; in [place], normal in patient Medical History Chest X-Ray 12-15-11; normal, [facility] Medical History Echocardiogram; 12-15; [facility] Medical History Cardiolite Stress Te st 12-16-11; [facility] Medical History Check's sugar's bid Medical History Heart Catherization; [facility] Medical History breast cancer 04/2014 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, status post lumpectomy x2, sentinel lymph node biopsy and adjuvant radiotherapy that concluded on 08-21-14 Medical History 11/2016 diabetic shif ting in rt eye - Dr French from [facility] Surgical History Tonsillectomy age 21 Surgical History ovarian tumor removed and left ovary Surgical History complete hysterectomy 1993 Surgical History Heart Catherization; [facility] Surgical History Right Shoulder Tear and bone spur removal; [facility] 07-27-12 Surgical History Left Shoulder Rotato r [...] for a kidney stone Surgical History mammogram [facility] 04/2017 Surgical History vertabrae fusion 08/2018 Hospitalization History ovarian tumor removed an d left overy Hospitalization History complete hysterectomy 19 94 [facility] Other 05-03-2020 History general Narrative - Reported* Type Description Date Medical History Stress Test; [facility], normal per patient Medical History Pap and Pelvic 3 yea rs ago, OBGYN in [place] Medical History Mammogram over 5 yea rs; Normal at that time per patient Medical History CT Abdomen and Pelvi s over 5 years ago; [facility] Medical History Colonoscopy 8 years ago; in [place], normal in patient Medical History Chest X-Ray 12-15-11; normal, [facility] Medical History Echocardiogram; 12-15; [facility] Medical History Cardiolite Stress Te st 12-16-11; [facility] Medical History Check's sugar's bid Medical History Heart Catherization; [facility] Medical History breast cancer 04/2014 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, status post lumpectomy x2, sentinel lymph node biopsy and adjuvant radiotherapy that concluded on 08-21-14 Medical History 11/2016 diabetic shif ting in rt eye - Dr French from [facility] Surgical History Tonsillectomy age 21 Surgical History ovarian tumor removed and left ovary Surgical History complete hysterectomy 1993 Surgical History Heart Catherization; [facility] Surgical History Right Shoulder Tear and bone spur removal; [facility] 07-27-12 Surgical History Left Shoulder Rotato r [...] for a kidney stone Surgical History mammogram [facility] 04/2017 Surgical History vertabrae fusion 08/2018 Hospitalization History ovarian tumor removed an d left overy Hospitalization History complete hysterectomy 19 94 [facility] Other 04-26-2020 History general Narrative - Reported* Type Description Date Medical History Stress Test; [facility], normal per patient Medical History Pap and Pelvic 3 yea rs ago, OBGYN in [place] Medical History Mammogram over 5 yea rs; Normal at that time per patient Medical History CT Abdomen and Pelvi s over 5 years ago; [facility] Medical History Colonoscopy 8 years ago; in [place], normal in patient Medical History Chest X-Ray 12-15-11; normal, [facility] Medical History Echocardiogram; 12-15; [facility] Medical History Cardiolite Stress Te st 12-16-11; [facility] Medical History Check's sugar's bid Medical History Heart Catherization; [facility] Medical History breast cancer 04/2014 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, status post lumpectomy x2, sentinel lymph node biopsy and adjuvant radiotherapy that concluded on 08-21-14 Medical History 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 - Dr French from [facility] Surgical History Tonsillectomy age 21 Surgical History ovarian tumor removed and left ovary Surgical History complete hysterectomy 1993 Surgical History Heart Catherization; [facility] Surgical History Right Shoulder Tear and bone spur removal; [facility] 07-27-12 Surgical History Left Shoulder Rotato r [...] for a kidney stone Surgical History mammogram [facility] 04/2017 Surgical History vertabrae fusion 08/2018 Hospitalization History ovarian tumor removed an d left overy Hospitalization History complete hysterectomy 19 94 [facility] Other 04-21-2020 History general Narrative - Reported* Type Description Date Medical History Stress Test; [facility], normal per patient Medical History Pap and Pelvic 3 yea rs ago, OBGYN in [place] Medical History Mammogram over 5 yea rs; Normal at that time per patient Medical History CT Abdomen and Pelvi s over 5 years ago; [facility] Medical History Colonoscopy 8 years ago; in [place], normal in patient Medical History Chest X-Ray 12-15-11; normal, [facility] Medical History Echocardiogram; 12-15; [facility] Medical History Cardiolite Stress Te st 12-16-11; [facility] Medical History Check's sugar's bid Medical History Heart Catherization; [facility] Medical History breast cancer 04/2014 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, status post lumpectomy x2, sentinel lymph node biopsy and adjuvant radiotherapy that concluded on 08-21-14 Medical History 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 - Dr French from [facility] Surgical History Tonsillectomy age 21 Surgical History ovarian tumor removed and left ovary Surgical History complete hysterectomy 1993 Surgical History Heart Catherization; [facility] Surgical History Right Shoulder Tear and bone spur removal; [facility] 07-27-12 Surgical History Left Shoulder Rotato r [...] for a kidney stone Surgical History mammogram [facility] 04/2017 Surgical History vertabrae fusion 08/2018 Hospitalization History ovarian tumor removed an d left overy Hospitalization History complete hysterectomy 19 94 [facility] Other 03-12-2020 History general Narrative - Reported* Type Description Date Medical History Stress Test; [facility], normal per patient Medical History Pap and Pelvic 3 yea rs ago, OBGYN in [place] Medical History Mammogram over 5 yea rs; Normal at that time per patient Medical History CT Abdomen and Pelvi s over 5 years ago; [facility] Medical History Colonoscopy 8 years ago; in [place], normal in patient Medical History Chest X-Ray 12-15-11; normal, [facility] Medical History Echocardiogram; 12-15; [facility] Medical History Cardiolite Stress Te st 12-16-11; [facility] Medical History Check's sugar's bid Medical History Heart Catherization; [facility] Medical History breast cancer 04/2014 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, status post lumpectomy x2, sentinel lymph node biopsy and adjuvant radiotherapy that concluded on 08-21-14 Medical History 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 - Dr French from [facility] Surgical History Tonsillectomy age 21 Surgical History ovarian tumor removed and left ovary Surgical History complete hysterectomy 1993 Surgical History Heart Catherization; [facility] Surgical History Right Shoulder Tear and bone spur removal; [facility] 07-27-12 Surgical History Left Shoulder Rotato r [...] for a kidney stone Surgical History mammogram [facility] 04/2017 Surgical History vertabrae fusion 08/2018 Hospitalization History ovarian tumor removed an d left overy Hospitalization History complete hysterectomy 19 94 [facility] Other 03-07-2020 History general Narrative - Reported* Type Description Date Medical History Stress Test; [facility], normal per patient Medical History Pap and Pelvic 3 yea rs ago, OBGYN in [place] Medical History Mammogram over 5 yea rs; Normal at that time per patient Medical History CT Abdomen and Pelvi s over 5 years ago; [facility] Medical History Colonoscopy 8 years ago; in [place], normal in patient Medical History Chest X-Ray 12-15-11; normal, [facility] Medical History Echocardiogram; 12-15; [facility] Medical History Cardiolite Stress Te st 12-16-11; [facility] Medical History Check's sugar's bid Medical History Heart Catherization; [facility] Medical History breast cancer 04/2014 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, status post lumpectomy x2, sentinel lymph node biopsy and adjuvant radiotherapy that concluded on 08-21-14 Medical History 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 - Dr French from [facility] Surgical History Tonsillectomy age 21 Surgical History ovarian tumor removed and left ovary Surgical History complete hysterectomy 1993 Surgical History Heart Catherization; [facility] Surgical History Right Shoulder Tear and bone spur removal; [facility] 07-27-12 Surgical History Left Shoulder Rotato r [...] for a kidney stone Surgical History mammogram [facility] 04/2017 Surgical History vertabrae fusion 08/2018 Hospitalization History ovarian tumor removed an d left overy Hospitalization History complete hysterectomy 19 94 [facility] Other 03-04-2020 History general Narrative - Reported* Type Description Date Medical History Stress Test; [facility], normal per patient Medical History Pap and Pelvic 3 yea rs ago, OBGYN in [place] Medical History Mammogram over 5 yea rs; Normal at that time per patient Medical History CT Abdomen and Pelvi s over 5 years ago; [facility] Medical History Colonoscopy 8 years ago; in [place], normal in patient Medical History Chest X-Ray 12-15-11; normal, [facility] Medical History Echocardiogram; 12-15; [facility] Medical History Cardiolite Stress Te st 12-16-11; [facility] Medical History Check's sugar's bid Medical History Heart Catherization; [facility] Medical History breast cancer 04/2014 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, status post lumpectomy x2, sentinel lymph node biopsy and adjuvant radiotherapy that concluded on 08-21-14 Medical History 11/2016 diabetic shif ting in rt eye - Dr French from [facility] Surgical History Tonsillectomy age 21 Surgical History ovarian tumor removed and left ovary Surgical History complete hysterectomy 1993 Surgical History Heart Catherization; [facility] Surgical History Right Shoulder Tear and bone spur removal; [facility] 07-27-12 Surgical History Left Shoulder Rotato r [...] for a kidney stone Surgical History mammogram [facility] 04/2017 Surgical History vertabrae fusion 08/2018 Hospitalization History ovarian tumor removed an d left overy Hospitalization History complete hysterectomy 19 94 [employer] Other 02-22-2020 History general Narrative - Reported* Type Description Date Medical History Stress Test; [facility], normal per patient Medical History Pap and Pelvic 3 yea rs ago, OBGYN in [place] Medical History Mammogram over 5 yea rs; Normal at that time per patient Medical History CT Abdomen and Pelvi s over 5 years ago; [facility] Medical History Colonoscopy 8 years ago; in [place], normal in patient Medical History Chest X-Ray 12-15-11; normal, [facility] Medical History Echocardiogram; 12-15; [facility] Medical History Cardiolite Stress Te st 12-16-11; [facility] Medical History Check's sugar's bid Medical History Heart Catherization; [facility] Medical History breast cancer 04/2014 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, status post lumpectomy x2, sentinel lymph node biopsy and adjuvant radiotherapy that concluded on 08-21-14 Medical History 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 - Dr French from [facility] Surgical History Tonsillectomy age 21 Surgical History ovarian tumor removed and left ovary Surgical History complete hysterectomy 1993 Surgical History Heart Catherization; [facility] Surgical History Right Shoulder Tear and bone spur removal; [facility] 07-27-12 Surgical History Left Shoulder Rotato r Cuff repair and bicep repair Dr. 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 Misha Jamison 05/2014 and 06/2014 Surgical History Colonoscopy, Dr. Sourav gas- Needs repeat in 10 years 06-17-15 Surgical History Lithotripsy for a kidney stone Surgical History mammogram [facility] 04/2017 Surgical History vertabrae fusion 08/2018 Hospitalization History ovarian tumor removed an d left overy Hospitalization History complete hysterectomy [employer] Other 02-12-2020 History general Narrative - Reported* Type Description Date Medical History Stress Test; [facility], normal per patient Medical History Pap and Pelvic 3 yea rs ago, OBGYN in [place] Medical History Mammogram over 5 yea rs; Normal at that time per patient Medical History CT Abdomen and Pelvi s over 5 years ago; [facility] Medical History Colonoscopy 8 years ago; in [place], normal in patient Medical History Chest X-Ray 12-15-11; normal, [facility] Medical History Echocardiogram; 12-15; [facility] Medical History Cardiolite Stress Te st 12-16-11; [facility] Medical History Check's sugar's bid Medical History Heart Catherization; [facility] Medical History breast cancer 04/2014 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, status post lumpectomy x2, sentinel lymph node biopsy and adjuvant radiotherapy that concluded on 08-21-14 Medical History 11/2016 diabetic shif ting in rt eye - Dr French from [facility] Surgical History Tonsillectomy age 21 Surgical History ovarian tumor removed and left ovary Surgical History complete hysterectomy 1993 Surgical History Heart Catherization; [facility] Surgical History Right Shoulder Tear and bone spur removal; [facility] 07-27-12 Surgical History Left Shoulder Rotato r Cuff repair and bicep repair Dr. 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 Misha Jamison 05/2014 and 06/2014 Surgical History Colonoscopy, Dr. Sourav aguilera Needs repeat in 10 years 06-17-15 Surgical History Lithotripsy for a kidney stone Surgical History mammogram [facility] 04/2017 Surgical History vertabrae fusion 08/2018 Hospitalization History ovarian tumor removed an d left overy Hospitalization History complete hysterectomy [facility] [employer] Other 10-27-2019 History general Narrative - Reported* Type Description Date Medical History Stress Test; [facility], normal per patient Medical History Pap and Pelvic 3 yea rs ago, OBGYN in [place] Medical History Mammogram over 5 yea rs; Normal at that time per patient Medical History CT Abdomen and Pelvi s over 5 years ago; [facility] Medical History Colonoscopy 8 years ago; in [place], normal in patient Medical History Chest X-Ray 12-15-11; normal, [facility] Medical History Echocardiogram; 12-15; [facility] Medical History Cardiolite Stress Te st 12-16-11; [facility] Medical History Check's sugar's bid Medical History Heart Catherization; [facility] Medical History breast cancer 04/2014 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, status post lumpectomy x2, sentinel lymph node biopsy and adjuvant radiotherapy that concluded on 08-21-14 Medical History 11/2016 diabetic shif ting in rt eye - Dr French from [facility] Surgical History Tonsillectomy age 21 Surgical History ovarian tumor removed and left ovary Surgical History complete hysterectomy 1993 Surgical History Heart Catherization; [facility] Surgical History Right Shoulder Tear and bone spur removal; [facility] 07-27-12 Surgical History Left Shoulder Rotato r [...] for a kidney stone Surgical History mammogram [facility] 04/2017 Surgical History vertabrae fusion 08/2018 Hospitalization History ovarian tumor removed an d left overy Hospitalization History complete hysterectomy 94 [employer] Other Evaluation noteNo InformationNort [employer] Other Evaluation noteNo assessment information available [facility] Work Phone: Reason for referral (narrative)* Reason appt pt needs cons ult w/ Dr. Cornejo or Viki for evaluation of right shoulder pain Diagnosis 1 Shoulder pain, right (M25.511) Referral Organization [facility] Referring Provider First Name Rin Referring Provider Last Name Lyn Referring Provider Specialty Family Prac meenu Referred Organization [facility] Referred Address ,[place], [place],[address] Referred Provider Specialty Orthopedic S urgery Referral Priority Routine General Notes HoracioFlorinda 02/08/2022 05:31:28 PM > Access [facility] referral form hard faxed with visit note, med list and insurance card. pt understands she will be contacted to schedule this appt. [employer] Other Summary Purpose Family History Relationship Condition Age at Onset Recorded Date/T rob father Pulmonary emphysema Unknown Not Specified Cerebrovascular accident (CVA) Unknown Advance Directives Advance Directive Response Recorded Date/ Time Advance Directives No February 15, 2017 3:18pm Hospital Course Note MR#: [id number] I [facility] Pt. Name: Criselda Morfin Admitted: 08/23/2018 Discharged: [...] section and content) DATE CREATED AUTHOR 06/05/2018 [facility] DATE CREATED AUTHOR AUTHOR'S ORGANIZ ATION 12/09/2018 [facility] DATE CREATED AUTHOR AUTHOR'S ORGANIZ ATION 08/31/2022 [facility] DATE CREATED AUTHOR AUTHOR'S ORGANIZ ATION 05/07/2023 [facility] REASON FOR VISIT (unrecogniz ed section and content) review labs/rt shoulder painClinicalrefillClinicalClinicalClinical/BPRefillsreview labsClinicaldiscuss JanuviarefillrefillClinicalClinicalNew Refill RequestClinical Goals (unrecognized section and content) Goals may [...] BE BASED ON THE PRIMARY CLINICAL RECORDS. [employer] provides no warranty or guarantee of the accuracy or completeness of information in this document.
[2023-10-10 07:23] LABS: Bilirubin Urine NEGATIVE (NEGATIVE); Blood Urine NEGATIVE (NEGATIVE); Clarity Urine CLEAR (CLEAR); Color Urine YELLOW (YELLOW); Glucose Urine UA NEGATIVE (NEGATIVE); Ketones Urine NEGATIVE (NEGATIVE); Leukocyte Esterase Urine NEGATIVE (NEGATIVE); Nitrite Urine NEGATIVE (NEGATIVE); Protein Urine NEGATIVE (NEG/TRACE); Specific Gravity Urine 1.015 (1.005-1.025); Urobilinogen Urine 0.2 EU/dL (0.2-1.0)
[2023-10-10 07:31] LABS: Crystals Seen? None Seen #/HPF (None Seen); Mucus Urine SMALL (NONE SEEN); RBC Urine NONE SEEN #/HPF (0-2); Squamous Epithelial Cell Urine FEW #/LPF (NONE/RARE); Transitional Epi Cells Urine RARE #/LPF (NONE SEEN); WBC Urine 0-2 #/HPF (NONE SEEN)
[2023-10-10 07:32] LABS: Bacteria Urine SMALL #/HPF (NONE SEEN); Cast Seen? NONE SEEN #/LPF (NONE SEEN); Urine Culture Indicated ALREADY ORDERED
== END 2023-10-10 07:02 | disposition home or self-care (01) ==
LOC: LAB 07:01
PROVIDERS: PCP Family Medicine; Visit Provider Family Medicine
DX: E87.6 Hypokalemia (principal); E78.5 Hyperlipidemia, unspecified; E53.8 Deficiency of other specified B group vitamins; E11.9 Type 2 diabetes mellitus without complications; R63.5 Abnormal weight gain; R35.1 Nocturia
CPT/HCPCS: 80053; 80061; 81001; 82607; 82746; 83036; 84443; 87086

== ENCOUNTER 2023-10-11 06:34 | Outpatient (OUT) | payer OTHER, SELFPAY ==
--- OUTSIDE RECORDS SUMMARY | 2023-10-11 06:37 | XMS_ITS ---
Patient Summarization (C-CDA 2.1 CCD) Created on: October 11, 2023 LESLEE MORFIN : 1955 Sex: Female Author Organization Sample organization Care Team Providers Care Paper Stripper Name Role Phone Selin Jean Attending Unavailable Ted, Selin Pastor Attending Unavailable CHUCHO HONEYCUTT Attending Unavailable Ted, eSlin Pastor Attending Unavailable UNKNOWN, PROVIDER Admitting Unavailable SELF, REFERRED Referring Unavailable SELF, REFERRED Primary Care Unavailable CHIP CEDILLO Attending Unavailable [place] Procedure Practitioner Unavailab le UNKNOWN, PROVIDER Surgeon Unavailable Rin Nicholson Unavailable LYN, DR GAR Admitting Unavailable GIRVIN, DR GAR [...] KEV Consulting Unavailable NEFCY, BUDDY Consulting Unavailable GIRVIN, DR GAR Admitting Unavailable GIRVIN, DR GAR Attending Unavailable GIRVIN, DR GAR Consulting Unavailable GIRVIN, DR GAR Primary Care Unavailable GIRVIN, DR GAR Admitting Unavailable GIRVIN, DR GAR Primary Care Unavailable GIRVIN, DR GAR Attending Unavailable GIRVIN, DR GAR Consulting Unavailable Girbaljit, DO Gar Primary Care Provider DO Rin Nicholson Attending Provider Rin Nicholson Attending Unavailable Lyn, Rin Primary Care Unavailable Lyn, Rin Admitting Unavailable Encounters Encounter Date Encounter Type Care Provider Facility Start: 05-16-2023 End: 05-16-2023 ambulatory Rin Nicholson Other [facility] Other Start: 05-16-2023 Telephone encounter Rin Nich[facility] Start: 05-03-2023 End: 05-03-2023 ambulatory Rin Nicholson Facility:[facility] Start: 05-03-2023 Encounter by eleazar Nicholson [facility] [place] Start: 05-03-2023 End: 05-03-2023 ambulatory DO Rin Nicholson Work Phone: [facility] Work Phone: Start: 05-03-2023 End: 05-03-2023 Patient encounter procedure DO Rin Nicholson Work Phone: [facility] Work Phone: Start: 04-12-2023 End: 04-12-2023 ambulatory Rin Nicholson Other [facility] Other Start: 04-12-2023 Telephone encounter Rin Nicholson [facility] [place] Start: 04-04-2023 End: 04-04-2023 ambulatory Rin Nicholson Other [facility] Other Start: 04-04-2023 Telephone encounter Rin Nicholson [facility] [place] Start: 03-21-2023 End: 03-21-2023 ambulatory Rin Nicholson Other [facility] Other Start: 03-21-2023 Telephone encounter Rin Nicholson [facility] [place] Start: 02-23-2023 End: 02-23-2023 ambulatory Rin Nicholson Other [facility] Other Start: 02-23-2023 Telephone encounter Rin Nicholson [facility] [place] Start: 09-24-2022 End: 09-24-2022 ambulatory Rin Nicholson Other [facility] Other Start: 09-24-2022 Office outpatient vi sit 15 minutes Rin Nicholson [facility] [place] Start: 08-30-2022 End: 08-31-[address] RIN NICHOLSON Facility:[facility] Start: 08-17-2022 End: 08-17-2022 ambulatory Rin Nicholson Other [facility] Other Start: 08-17-2022 Telephone encounter Rin Nicholson [facility] [place] Start: 08-16-2022 End: 08-17-[address] RIN NICHOLSON Facility:[facility] Start: 08-09-2022 End: 08-09-2022 ambulatory Rin Nicholson Other [facility] Other Start: 08-09-2022 Office outpatient vi sit 25 minutes Rin Nicholson [facility] [place] Start: 08-06-2022 End: 08-06-2022 ambulatory Rin Nicholson Other [facility] Other Start: 08-06-2022 Telephone encounter Rin Nicholson [facility] [place] Start: 07-31-2022 End: 08-01-[address] RIN NICHOLSON Facility:[facility] Start: 06-04-2022 End: 06-04-2022 ambulatory Rin Nicholson Other [facility] Other Start: 06-04-2022 Telephone encounter Rin Nicholson [facility] [place] Start: 05-24-2022 End: 05-24-2022 ambulatory Rin Nicholson Other [facility] Other Start: 05-24-2022 Telephone encounter Rin Nicholson [facility] [place] Start: 05-14-2022 End: 05-14-2022 ambulatory Rin Nicholson Other [facility] Other Start: 05-14-2022 Telephone encounter Rin Nicholson [facility] [place] Start: 04-30-2022 End: 04-30-[address] BETTINA Jorgensen Facility:[facility] Start: 04-22-2022 End: 04-22-2022 ambulatory Rin Nicholson Other [facility] Other Start: 04-22-2022 Telephone encounter Rin Nicholson [facility] Start: 03-29-2022 End: 03-29-2022 ambulatory Rin Nicholson Other [facility] Other Start: 03-29-2022 Telephone encounter Rin Nicholson [facility] Start: 03-27-2022 End: 03-28-[address] RIN NICHOLSON Facility:[facility] Start: 02-08-2022 End: 02-08-2022 ambulatory Rin Nicholson Other [facility] Other Start: 02-08-2022 Office outpatient vi sit 25 minutes Rin Nicholson [facility] Start: 01-22-2022 End: 01-23-[address] RIN NICHOLSON Facility:[facility] Start: 08-23-2018 End: 08-25-2018 Evaluation and management of inpatient PROVIDER UNKNOWN Facility:[facility] Start: 05-11-2018 Patient encounter procedure Selin Jean Facility:[id number] Start: 05-08-2018 Patient encounter procedure Selin Jean Facility:[id number] Start: 10-06-2017 Patient encounter procedure Selin Darby Jean Facility:[id number] Medical Equipment Procedure Code Equipment Code Equipment Origin al Text Equipment Identifier Dates One Touch Lancet s lancets Start: 12-24-2011 Immunizations Immunization Date Immunization Notes Care Provider Jonh harrison 04-26-2023 Prevnar 20 Rin Nicholson Other [facility] Other 04-08-2023 COVID-19 Moderna (SPIKEVAX) Rin Nicholson Other [facility] Other 04-08-2023 zoster vaccine recombinant Rin Nicholson Other [facility] Other 03-22-2023 Flu Shot - Documentation Purposes Only Rin Nicholson Other [facility] Other 02-08-2022 Shingrix 50 MCG/0.5M L; 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: [Shingrix 50 MCG/0.5ML] Rin Nicholson Other [facility] Other 01-15-2022 influenza, seasonal, injectable Rin Nicholson Other [facility] Other 01-15-2022 COVID-19 Pfizer (bivalent) Rin Nicholson Other [facility] Other 07-31-2021 COVID-19 Vaccine Moderna - Documentation Purposes Only Rin Nicholson Other [facility] Other 02-20-2021 COVID-19 Vaccine Moderna - Documentation Purposes Only Rin Nicholson Other [facility] Other 07-26-2020 COVID-19 Moderna Rin koenig Other [facility] Other 06-28-2020 COVID-19 Moderna Rin koenig Other [facility] Other 02-18-2020 influenza, seasonal, injectable Rin Nicholson Other [facility] Other 02-19-2017 influenza, seasonal, injectable Rin Nicholson Other [facility] Other 03-08-2016 influenza, seasonal, injectable Rin Nicholson Other [facility] Other 05-07-2013 influenza virus vaccine, split virus (incl. purified surface antigen) Rin Nicholson Other [facility] Other 03-24-2012 influenza, seasonal, injectable, preservative free Rin Nicholson Other [facility] Other Medications Current Medications Medication Drug Class(es) Dates [...] 1 tablet by mouth once daily Vitamin M55-[id number] Acid Active 1 TAB PO Daily May [...] 30, 2018 8:57am June 02, 2020 3:05pm Payers Date Payer Category Payer Self-pay [id number] 2023 Unknown [id number] 2022 Medicare [id number] 2.1 [id number] 1959 Unknown [id number] 1955 Unknown [id number] 2.16. [id number] 1955 Unknown [id number] 2.16. [id number] 1955 Unknown [id number] 2.16. [id number] 1955 Unknown [id number] 2.16. [id number] 1955 Unknown [id number] 2.16.8 [id number] 1955 Unknown [id number] 2.16.84 [id number] 1955 Unknown [id number] 2.16.84 [id number] 1955 Unknown [id number] 2.16.84 [id number] 1955 Unknown [id number] 2.16.84 [id number] 1955 Unknown [id number] 2.16.84 [id number] 1955 Unknown [id number] 2.16.84 [id number] Unknown [id number] Unknown [id number] 2.16.8 [id number] Problems Active Problems Problem Classification Problem Date [...] kidney disease Other aftercare (1 source) Other residential (current) drug therapy; 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: [OTH RESIDENTIAL CURRENT DRUG THERAPY] Onset: 05-03-2022 Episodic Other aftercare (1 source) 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; 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: [RESIDENTIAL USE ORAL HYPOGLYCEMIC DX] Onset: 05-03-2022 Episodic Pneumonia (except that caused by tuberculosis or sexually transmitted disease) (1 source) Bronchopneumonia, unspecified organism; 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: [BRONCHOPNEUMONIA UNS ORGANISM] Onset: 05-03-2022 Episodic Unclassified (1 source) COUGH, UNSPECIFIED; 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: [COUGH, UNSPECIFIED] Onset: 04-30-2022 Procedures Date Procedure Procedure Detail Performing Clinician [...] above: Performed By: #### 6 [id number] #### [address] Results Test Name Value Interpretation Reference Range Facility MM screening mammo BI w/CADo n 05-03-2023 MM screening mammo BI w/CAD [facility] [place] [address] [place] [address] Mammography Report Signed Patient: Leslee Morfin MR#: [id number] : 1955 Acct:[id number] Age/Sex: 67 / F ADM Date: 05/03/23 Loc: [place] Room: [facility] Attending Dr: Rin Nicholson DO Copies to: [...] Carmela Cuevas M.D.05/03/2023 1:52 PM Dictation Location: [facility] Transcribed By: [facility] 05/03/23 1352 Dictated By: Carmela Cuevas MD 05/03/23 1349 Signed By: 05/03/23 1352 [facility] PROF CHEM 8 (MYCHAL METB)on Anion gap [Moles/Vol] 14.4 mmol/L Normal [facility] Comment on above: Performed By: #### B MP #### [facility] [address] [place] [address] Dr. Raf Pearl Calcium [Mass/Vol] 9.3 mg/dL Normal 8.5-10.1 [facility] Comment on above: Performed By: #### B MP #### [facility] [address] [address] [address] Raf Pearl Chloride [Moles/Vol] 102 mmol/L Normal 98-107 [facility] Comment on above: Performed By: #### B MP #### [facility] [address] [address] [address] Raf Pearl CO2 [Moles/Vol] 26.9 mmol/L Normal 21.0-32.0 [facility] Comment on above: Performed By: #### B MP #### [facility] [address] [address] [address] Raf Pearl Creatinine [Mass/Vol] 1.32 mg/dL Critically high 0.55-1.02 [facility] Comment on above: Performed By: #### B MP #### [facility] [address] [address] [address] Raf Pearl EGFR-AF IRAQI 49 mL/min/1.73m2 Critically low >=60 [facility] Comment on above: Performed By: #### B MP #### [facility] [address] [address] [address] Raf Pearl EGFR-NON AF IRAQI 40 mL/min/1.73m2 Critically low >=60 [facility] Comment on above: Performed By: #### B MP #### [facility] [address] [address] [address] Raf Pearl Glucose [Mass/Vol] 151 mg/dL Critically high 74-106 T [facility] Comment on above: Performed By: #### B MP #### [facility] [address] [place] [address] Dr. Raf Pearl Potassium [Moles/Vol] 4.3 mmol/L Normal 3.5-5.1 [facility] Comment on above: Performed By: #### B MP #### [facility] [address] [address] [address] Raf Pearl Sodium [Moles/Vol] 139 mmol/L Normal 136-145 [facility] Comment on above: Performed By: #### B MP #### [facility] [address] [address] [address] Raf Pearl Urea nitrogen [Mass/Vol] 17.0 mg/dL Normal 7.0-18.0 [facility] Comment on above: Performed By: #### B MP #### [facility] [address] [address] [address] Raf Pearl Urea nitrogen/Creatinine [Mass ratio] 12.9 mg/mg Normal [facility] [place] [facility] Comment on above: Performed By: #### B MP #### [facility] [address] [address] [address] Raf Pearl PROF CHEM 8 (BAS METB)on Anion gap [Moles/Vol] 9.7 mmol/L Normal [facility] Comment on above: Performed By: #### B MP #### [facility] [address] [address] [address] Raf Pearl Calcium [Mass/Vol] 9.1 mg/dL Normal 8.5-10.1 [facility] Comment on above: Performed By: #### B MP #### [facility] [address] [place] [address] Dr. Raf Pearl Chloride [Moles/Vol] 100 mmol/L Normal 98-107 [facility] Comment on above: Performed By: #### B MP #### [facility] [address] [address] [address] Raf Pearl CO2 [Moles/Vol] 28.0 mmol/L Normal 21.0-32.0 [facility] Comment on above: Performed By: #### B MP #### [facility] [address] [place] [address] Dr. Raf Pearl Creatinine [Mass/Vol] 1.18 mg/dL Critically high 0.55-1.02 [facility] Comment on above: Performed By: #### B MP #### [facility] [address] [address] [address] Raf Pearl EGFR-AF IRAQI 56 mL/min/1.73m2 Critically low >=60 [facility] Comment on above: Performed By: #### B MP #### [facility] [address] [address] [address] Raf Pearl EGFR-NON AF IRAQI 46 mL/min/1.73m2 Critically low >=60 [facility] Comment on above: Performed By: #### B MP #### [facility] [address] [address] [address] Raf Pearl Glucose [Mass/Vol] 113 mg/dL Critically high 74-106 T [facility] Comment on above: Performed By: #### B MP #### [facility] [address] [place] [address] Dr. Raf Pearl Potassium [Moles/Vol] 3.7 mmol/L Normal 3.5-5.1 [facility] Comment on above: Performed By: #### B MP #### [facility] [address] [place] [address] Dr. Raf Pearl Sodium [Moles/Vol] 134 mmol/L Critically low 136-145 Th e [facility] Comment on above: Performed By: #### B MP #### [facility] [address] [place] [address] Dr. Raf Pearl Urea nitrogen [Mass/Vol] 13.0 mg/dL Normal 7.0-18.0 [facility] Comment on above: Performed By: #### B MP #### [facility] [address] [place] [address] Dr. Raf Pearl Urea nitrogen/Creatinine [Mass ratio] 11.0 mg/mg Normal [facility] Comment on above: Performed By: #### B MP #### [facility] [address] [place] [address] Dr. Raf Pearl FOLATE ([facility])on Folate >20.0 Normal >3.0 [facility] Comment on above: Result Comment: A se rum folate concentration of less than 3.1 ng/mL is considered to represent clinical deficiency. Performed By: #### F OLALC #### [facility] [address] [place] [address] Dr. Raf Pearl CBC AUTO DIFFon 07-31-2022 BASO # 0.1 103/ul Normal 0.0-0.1 [facility] Comment on above: Performed By: #### M ALBR #### [facility] [address] [place] [address] Dr. Raf Pearl Basophils/100 WBC (Bld) 1.3 % Normal 0.2-2.0 [facility] Comment on above: Performed By: #### M ALBR #### [facility] [address] [place] [address] Dr. Raf Pearl EO # 0.4 103/ul Normal 0.0-0.7 [facility] Comment on above: Performed By: #### M ALBR #### [facility] [address] [place] [address] Dr. Raf Pearl Eosinophils/100 WBC (Bld) 4.5 % Normal 0.9-7.0 [facility] Comment on above: Performed By: #### M ALBR #### [facility] [address] [place] [address] Dr. Raf Pearl Erythrocyte distribution width (RBC) [Ratio] 13.2 % Normal 11.0-15.0 [facility] Comment on above: Performed By: #### M ALBR #### [facility] [address] [place] [address] Dr. Raf Pearl Hematocrit (Bld) [Volume fraction] 33.8 % Critically low 36.0-48.0 [facility] Comment on above: Performed By: #### M ALBR #### [facility] [address] [place] [address] Dr. Raf Pearl Hemoglobin (Bld) [Mass/Vol] 11.5 g/dL Critically low 12.0-16.0 [facility] Comment on above: Performed By: #### M ALBR #### [facility] [address] [place] [address] Dr. Raf Pearl IG # 0.02 10e3/ul Normal 0.00-0.03 [facility] Comment on above: Performed By: #### M ALBR #### [facility] [address] [place] [address] Dr. Raf Pearl IG % 0.2 % Normal 0.0-0.5 [facility] Comment on above: Performed By: #### M ALBR #### [facility] [address] [place] [address] Dr. Raf Pearl LYMPH # 2.6 103/ul Normal 1.2-3.8 [facility] Comment on above: Performed By: #### M ALBR #### [facility] [address] [address] [address] Raf Pearl Lymphocytes/100 WBC (Bld) 31.6 % Normal 20.5-60.0 [facility] Comment on above: Performed By: #### M ALBR #### [facility] [address] [place] [address] Dr. Raf Pearl MANUAL DIFF REQ NO Normal [facility] Comment on above: Performed By: #### M ALBR #### [facility] [address] [place] [address] Dr. Raf Pearl MCH (RBC) [Entitic mass] 31.1 pg Normal 26.7-34.0 [facility] Comment on above: Performed By: #### M ALBR #### [facility] [address] [place] [address] Dr. Raf Pearl MCHC (RBC) [Mass/Vol] 34.0 g/dL Normal 29.9-35.2 [facility] Comment on above: Performed By: #### M ALBR #### [facility] [address] [place] [address] Dr. Raf Pearl MCV (RBC) [Entitic vol] 91.4 fL Normal 81.0-99.0 [facility] Comment on above: Performed By: #### M ALBR #### [facility] [address] [place] [address] Dr. Raf Pearl MONO # 0.6 103/ul Normal 0.3-0.8 [facility] Comment on above: Performed By: #### M ALBR #### [facility] [address] [place] [address] Dr. Raf Pearl Monocytes/100 WBC (Bld) 7.2 % Normal 1.7-12.0 [facility] Comment on above: Performed By: #### M ALBR #### [facility] [address] [place] [address] Dr. Raf Pearl NEUT # 4.6 103/ul Normal 1.4-6.5 [facility] Comment on above: Performed By: #### M ALBR #### [facility] [address] [address] [address] Raf Pearl Neutrophils/100 WBC (Bld) 55.2 % Normal 43.0-75.0 [facility] Comment on above: Performed By: #### M ALBR #### [facility] [address] [address] [address] Raf Pearl Platelet mean volume (Bld) [Entitic vol] 10.0 fL Normal 9.5-13.5 [facility] Comment on above: Performed By: #### M ALBR #### [facility] [address] [address] [address] Raf Pearl PLT 352 103/ul Normal 150-450 [facility] Comment on above: Performed By: #### M ALBR #### [facility] [address] [place] [address] Dr. Raf Pearl RBC 3.70 106/ul Critically low 4.20-5.40 [facility] Comment on above: Performed By: #### M ALBR #### [facility] [address] [address] [address] Raf Pearl WBC 8.2 103/ul Normal 4.0-11.0 [facility] Comment on above: Performed By: #### M ALBR #### [facility] [address] [place] [address] Dr. Raf Pearl CULTURE URINEon 07-31-2022 CULTURE URINE Culture Observations: NO GROWTH. Normal [facility] Comment on above: Performed By: #### B MP #### [facility] [address] [place] [address] Dr. Raf Pearl GLYCOHEMOGLOBIN A1Con 2022 ADA RECOMMENDATION SEE BELOW Normal [facility] Comment on above: Result Comment: ADA RECOMMENDED LIMIT 4.0 - 6.0 ADA THERAPEUTIC TARGET < 7.0 ACTION SUGGESTED > 7.0 Performed By: #### B MP #### [facility] [address] [place] [address] Dr. Raf Pearl Glucose [Mass/Vol] 140 mg/dL Normal [facility] Comment on above: Performed By: #### B MP #### [facility] [address] [address] [address] Raf Pearl HbA1c (Bld) [Mass fraction] 6.5 % Critically high 4.5-6.2 [facility] Comment on above: Performed By: #### B MP #### [facility] [address] [address] [address] Raf Pearl LIPID PROFILEon 07-31-2022 CHOL-HDL RATIO NORM SEE BELOW Normal [facility] Comment on above: Result Comment: 3.3 - 4.4 LOW RISK 4.4 - 7.1 AVERAGE RISK 7.1 - 11.0 MODERATE RISK >11.0 HIGH RISK Performed By: #### C MP, LIPID, TSH #### [facility] [address] [address] [address] Raf Pearl Cholesterol [Mass/Vol] 166 mg/dL Normal <=200 [facility] Comment on above: Performed By: #### C MP, LIPID, TSH #### [facility] [address] [address] [address] Raf Pearl Cholesterol in HDL [Mass/Vol] 57 mg/dL Normal 40-60 [facility] Comment on above: Performed By: #### C MP, LIPID, TSH #### [facility] [address] [address] [address] Raf Pearl Cholesterol in LDL [Mass/Vol] 91.4 mg/dL Normal [facility] Comment on above: Performed By: #### C MP, LIPID, TSH #### [facility] [address] [address] [address] Raf Pearl Cholesterol.total/Ch olesterol in HDL [Mass ratio] 2.9 {ratio} Normal [facility] Comment on above: Performed By: #### C MP, LIPID, TSH #### [facility] [address] [address] [address] Raf Pearl HDL NORMAL > or = 60 mg/dl - LOW CARDIOVASCULAR RISK <40 mg/dl - HIGH CARDIOVASCULAR RISK Normal [facility] Comment on above: Performed By: #### C MP, LIPID, TSH #### [facility] [address] [place] [address] Dr. Raf Pearl LDL CALC NORMAL SEE BELOW Normal [facility] Comment on above: Result Comment: <100 mg/dl OPTIMAL 100 - 129 mg/dl NEAR OR ABOVE OPTIMAL 130 - 159 mg/dl BORDERLINE HIGH 160 - 189 mg/dl HIGH >190 mg/dl VERY HIGH Performed By: #### C MP, LIPID, TSH #### [facility] [address] [address] [address] Raf Pearl Triglyceride [Mass/Vol] 88 mg/dL Normal <=150 [facility] Comment on above: Performed By: #### C MP, LIPID, TSH #### [facility] [address] [place] [address] Dr. Raf Pearl VLDL CALC 17.6 mg/dL Normal [facility] Comment on above: Performed By: #### C MP, LIPID, TSH #### [facility] [address] [place] [address] Dr. Raf Pearl MICROALBUMIN, RAND URon - mALB <1.3 Normal <=30.0 [facility] Comment on above: Performed By: #### M ALBR #### [facility] [address] [place] [address] Dr. Raf Pearl PROF 14(COMP METB)on 023 Albumin [Mass/Vol] 3.6 g/dL Normal 3.4-5.0 [facility] Comment on above: Performed By: #### C MP, LIPID, TSH #### [facility] [address] [place] [address] Dr. Raf Pearl Albumin/Globulin [Mass ratio] 1.0 {ratio} Normal [facility] Comment on above: Performed By: #### C MP, LIPID, TSH #### [facility] [address] [place] [address] Dr. Raf Pearl ALP [Catalytic activity/Vol] 70 U/L Normal 46-116 [facility] Comment on above: Performed By: #### C MP, LIPID, TSH #### [facility] [facility] [address] [place] [address] Dr. Raf Pearl ALT [Catalytic activity/Vol] 22 U/L Normal 14-59 [facility] Comment on above: Performed By: #### C MP, LIPID, TSH #### [facility] [address] [place] [address] Dr. Raf Pearl Anion gap [Moles/Vol] 11.8 mmol/L Normal [facility] Comment on above: Performed By: #### C MP, LIPID, TSH #### [facility] [address] [address] [address] Raf Pearl AST [Catalytic activity/Vol] 19 U/L Normal 15-37 [facility] Comment on above: Performed By: #### C MP, LIPID, TSH #### [facility] [address] [place] [address] Dr. Raf Pearl Bilirubin [Mass/Vol] 0.3 mg/dL Normal 0.2-1.0 [facility] Comment on above: Performed By: #### C MP, LIPID, TSH #### [facility] [address] [place] [address] Dr. Raf Pearl Calcium [Mass/Vol] 9.0 mg/dL Normal 8.5-10.1 [facility] Comment on above: Performed By: #### C MP, LIPID, TSH #### [facility] [address] [place] [address] Dr. Raf Pearl Chloride [Moles/Vol] 104 mmol/L Normal 98-107 [facility] Comment on above: Performed By: #### C MP, LIPID, TSH #### [facility] [address] [place] [address] Dr. Raf Pearl CO2 [Moles/Vol] 28.6 mmol/L Normal 21.0-32.0 [facility] Comment on above: Performed By: #### C MP, LIPID, TSH #### [facility] [address] [place] [address] Dr. Raf Pearl Creatinine [Mass/Vol] 1.48 mg/dL Critically high 0.55-1.02 [facility] Comment on above: Performed By: #### C MP, LIPID, TSH #### [facility] [address] [address] [address] Raf Pearl EGFR-AF IRAQI 43 mL/min/1.73m2 Critically low >=60 [facility] Comment on above: Performed By: #### C MP, LIPID, TSH #### [facility] [address] [address] [address] Raf Pearl EGFR-NON AF IRAQI 35 mL/min/1.73m2 Critically low >=60 [facility] Comment on above: Performed By: #### C MP, LIPID, TSH #### [facility] [address] [address] [address] Raf Pearl Globulin (S) [Mass/Vol] 3.5 g/dL Normal [facility] Comment on above: Performed By: #### C MP, LIPID, TSH #### [facility] [address] [place] [address] Dr. Raf Pearl Glucose [Mass/Vol] 102 mg/dL Normal 74-106 [facility] Comment on above: Performed By: #### C MP, LIPID, TSH #### [facility] [address] [address] [address] Raf Pearl Potassium [Moles/Vol] 4.4 mmol/L Normal 3.5-5.1 [facility] Comment on above: Performed By: #### C MP, LIPID, TSH #### [facility] [address] [address] [address] Raf Pearl Protein [Mass/Vol] 7.1 g/dL Normal 6.4-8.2 [facility] Comment on above: Performed By: #### C MP, LIPID, TSH #### [facility] [address] [address] [address] Raf Pearl Sodium [Moles/Vol] 140 mmol/L Normal 136-145 [facility] Comment on above: Performed By: #### C MP, LIPID, TSH #### [facility] [address] [address] [address] Raf Pearl Urea nitrogen [Mass/Vol] 21.0 mg/dL Critically high 7.0-18.0 [facility] Comment on above: Performed By: #### C MP, LIPID, TSH #### [facility] [address] [place] [address] Dr. Raf Pearl Urea nitrogen/Creatinine [Mass ratio] 14.2 mg/mg Normal [facility] Comment on above: Performed By: #### C MP, LIPID, TSH #### [facility] [address] [place] [address] Dr. Raf Pearl TSHon 07-31-2022 TSH 2.298 uIU/mL Normal 0.358-3.740 [facility] Comment on above: Performed By: #### C MP, LIPID, TSH #### [facility] [address] [place] [address] Dr. Raf Pearl UA RANDOM W/MICROSCOPICon BACTERIA NONE SEEN Normal NONE SEEN [facility] Comment on above: Performed By: #### B MP #### [facility] [address] [place] [address] Dr. Raf Pearl Bilirubin Ql (U) Negative Normal NEGATIVE [facility] Comment on above: Performed By: #### B MP #### [facility] [address] [place] [address] Dr. Raf Pearl CAST NONE SEEN Normal NONE SEEN [facility] Comment on above: Performed By: #### B MP #### [facility] [address] [place] [address] Dr. Raf Pearl Clarity (U) CLEAR Normal CLEAR [facility] Comment on above: Performed By: #### B MP #### [facility] [address] [place] [address] Dr. Raf Pearl Color (U) LT. YELLOW Normal YELLOW [facility] Comment on above: Performed By: #### B MP #### [facility] [address] [place] [address] Dr. Raf Pearl Crystals LM Nom (Urine sed) NONE SEEN Normal NONE SEEN [facility] Comment on above: Performed By: #### B MP #### [facility] [address] [place] [address] Dr. Raf Pearl Epithelial cells LM Ql (Urine sed) NONE SEEN Normal NONE SEEN /RARE [facility] Comment on above: Performed By: #### B MP #### [facility] [address] [place] [address] Dr. Raf Pearl Glucose Ql (U) Negative Normal NEGATIVE [facility] Comment on above: Performed By: #### B MP #### [facility] [address] [place] [address] Dr. Raf Pearl Hemoglobin Ql (U) Negative Normal NEGATIVE [facility] Comment on above: Performed By: #### B MP #### [facility] [address] [place] [address] Dr. Raf Pearl Ketones Ql (U) Negative Normal NEGATIVE [facility] Comment on above: Performed By: #### B MP #### [facility] [address] [place] [address] Dr. Raf Pearl LEUKOCYTES Negative Normal NEGATIVE [facility] Comment on above: Performed By: #### B MP #### [facility] [address] [place] [address] Dr. Raf Pearl MUCOUS NONE SEEN Normal NONE SEEN [facility] Comment on above: Performed By: #### B MP #### [facility] [address] [place] [address] Dr. Raf Pearl Nitrite Ql (U) Negative Normal NEGATIVE [facility] Comment on above: Performed By: #### B MP #### [facility] [address] [place] [address] Dr. Raf Pearl pH (U) 7.0 [pH] Normal 5-9 [facility] Comment on above: Performed By: #### B MP #### [facility] [address] [place] [address] Dr. Raf Pearl RBC 0-2 Normal 0-2 [facility] Comment on above: Performed By: #### B MP #### [facility] [address] [place] [address] Dr. Raf Pearl SPEC GRAVITY <=1.005 Abnormal 1.005-<=1.025 [facility] Comment on above: Performed By: #### B MP #### [facility] [address] [place] [address] Dr. Raf Pearl UA PROTEIN Negative Normal NEGATIVE/ TRACE [facility] Comment on above: Performed By: #### B MP #### [facility] [address] [place] [address] Dr. Raf Pearl Urobilinogen Qn (U) 0.2 {Tawana'U}/dL Normal 0.2 - 1. 0 [facility] Comment on above: Performed By: #### B MP #### [facility] [address] [place] [address] Dr. Raf Pearl WBC NONE SEEN Normal NONE SEEN [facility] Comment on above: Performed By: #### B MP #### [facility] [address] [place] [address] Dr. Raf Pearl VITAMIN B12on 07-31-2022 Cobalamin (Vitamin B12) [Mass/Vol] 600.0 pg/mL Normal 193.0-986.0 [facility] Comment on above: Performed By: #### B MP #### [facility] [address] [place] [address] Dr. Raf Pearl Covid-19 PCR ([facility])on 04-18 SARS-CoV-2 (COVID-19) RNA KHANH+probe Ql (Unsp spec) Not detected Normal NOT DETECTED [facility] Comment on above: Result Comment: When diagnostic [...] for this test is supported by the [place] of Health and Human Service's declaration that [...] longer be used). Performed By: #### C VDTB #### [facility] [address] [place] [address] Dr. Raf Pearl INFLUENZA A AND B AGon 04-[facility] SEE BELOW Normal [facility] Comment on above: Result Comment: Nega tive for Flu A protein angiten. Infection due to Flu A cannot be ruled out. Flu A angiten in the sample may be below the detection limit of the test. Performed By: #### B MP #### [facility] [address] [place] [address] Dr. Raf [facility] Normal [facility] Comment on above: Result Comment: Nega tive for Flu B protein antigen. Infection due to Flu B cannot be ruled out. Flu B antigen in the sample may be below the detection limit of the test. Performed By: #### B MP #### [facility] [address] [place] [address] Dr. Raf Pearl INFLUENZA A AG Negative Normal NEGATIVE SEE COMMENT [facility] Comment on above: Performed By: #### B MP #### [facility] [address] [place] [address] Dr. Raf Pearl INFLUENZA B AG Negative Normal NEGATIVE SEE COMMENT [facility] Comment on above: Performed By: #### B MP #### [facility] [address] [place] [address] Dr. Raf Pearl XR CHEST 2 Von [...] BUDDY LEMOS Date: 2022-04-30 19:38 Normal [facility] PROF CHEM 8 (BAS METB)on Anion gap [Moles/Vol] 12.6 mmol/L Normal [facility] Comment on above: Performed By: #### B MP #### [facility] [address] [address] [address] Raf Pearl Calcium [Mass/Vol] 9.4 mg/dL Normal 8.5-10.1 [facility] Comment on above: Performed By: #### B MP #### [facility] [address] [address] [address] Raf Pearl Chloride [Moles/Vol] 99 mmol/L Normal 98-107 [facility] Comment on above: Performed By: #### B MP #### [facility] [address] [address] [address] Raf Pearl CO2 [Moles/Vol] 29.3 mmol/L Normal 21.0-32.0 [facility] Comment on above: Performed By: #### B MP #### [facility] [address] [address] [address] Raf Pearl Creatinine [Mass/Vol] 1.15 mg/dL Critically high 0.55-1.02 [facility] Comment on above: Performed By: #### B MP #### [facility] [address] [address] [address] Raf Pearl EGFR-AF IRAQI 57 mL/min/1.73m2 Critically low >=60 [facility] Comment on above: Performed By: #### B MP #### [facility] [address] [address] [address] Raf Pearl EGFR-NON AF IRAQI 47 mL/min/1.73m2 Critically low >=60 [facility] Comment on above: Performed By: #### B MP #### [facility] [address] [address] [address] Raf Pearl Glucose [Mass/Vol] 146 mg/dL Critically high 74-106 [facility] Comment on above: Performed By: #### B MP #### [facility] [address] [address] [address] Raf Pearl Potassium [Moles/Vol] 3.9 mmol/L Normal 3.5-5.1 [facility] Comment on above: Performed By: #### B MP #### [facility] [address] [place] [address] Dr. Raf Pearl Sodium [Moles/Vol] 137 mmol/L Normal 136-145 [facility] Comment on above: Performed By: #### B MP #### [facility] [address] [place] [address] Dr. Raf Pearl Urea nitrogen [Mass/Vol] 10.0 mg/dL Normal 7.0-18.0 [facility] Comment on above: Performed By: #### B MP #### [facility] [address] [place] [address] Dr. Raf Pearl Urea nitrogen/Creatinine [Mass ratio] 8.7 mg/mg Normal [facility] Comment on above: Performed By: #### B MP #### [facility] [address] [place] [address] Dr. Raf Pearl CBC AUTO DIFFon 01-22-2022 BASO # 0.1 103/ul Normal 0.0-0.1 [facility] Comment on above: Performed By: #### B MP #### [facility] [address] [place] [address] Dr. Raf Pearl Basophils/100 WBC (Bld) 1.5 % Normal 0.2-2.0 [facility] Comment on above: Performed By: #### B MP #### [facility] [address] [place] [address] Dr. Raf Pearl EO # 0.3 103/ul Normal 0.0-0.7 [facility] Comment on above: Performed By: #### B MP #### [facility] [address] [place] [address] Dr. Raf Pearl Eosinophils/100 WBC (Bld) 5.3 % Normal 0.9-7.0 [facility] Comment on above: Performed By: #### B MP #### [facility] [address] [place] [address] Dr. Raf Pearl Erythrocyte distribution width (RBC) [Ratio] 13.1 % Normal 11.0-15.0 [facility] Comment on above: Performed By: #### B MP #### [facility] [address] [place] [address] Dr. Raf Pearl Hematocrit (Bld) [Volume fraction] 36.4 % Normal 36.0-48.0 [facility] Comment on above: Performed By: #### B MP #### [facility] [address] [place] [address] Dr. Raf Pearl Hemoglobin (Bld) [Mass/Vol] 12.4 g/dL Normal 12.0-16.0 [facility] Comment on above: Performed By: #### B MP #### [facility] [address] [place] [address] Dr. Raf Pearl IG # 0.02 10e3/ul Normal 0.00-0.03 [facility] Comment on above: Performed By: #### B MP #### [facility] [address] [place] [address] Dr. Raf Pearl IG % 0.3 % Normal 0.0-0.5 [facility] Comment on above: Performed By: #### B MP #### [facility] [address] [place] [address] Dr. Raf Pearl LYMPH # 2.0 103/ul Normal 1.2-3.8 [facility] Comment on above: Performed By: #### B MP #### [facility] [address] [place] [address] Dr. Raf Pearl Lymphocytes/100 WBC (Bld) 31.6 % Normal 20.5-60.0 [facility] Comment on above: Performed By: #### B MP #### [facility] [address] [place] [address] Dr. Raf Pearl MANUAL DIFF REQ NO Normal [facility] Comment on above: Performed By: #### B MP #### [facility] [address] [place] [address] Dr. Raf Pearl MCH (RBC) [Entitic mass] 31.4 pg Normal 26.7-34.0 [facility] Comment on above: Performed By: #### B MP #### [facility] [address] [address] [address] Raf Pearl MCHC (RBC) [Mass/Vol] 34.1 g/dL Normal 29.9-35.2 [facility] Comment on above: Performed By: #### B MP #### [facility] [address] [address] [address] Raf Pearl MCV (RBC) [Entitic vol] 92.2 fL Normal 81.0-99.0 [facility] Comment on above: Performed By: #### B MP #### [facility] [address] [address] [address] Raf Pearl MONO # 0.4 103/ul Normal 0.3-0.8 [facility] Comment on above: Performed By: #### B MP #### [facility] [address] [place] [address] Dr. Raf Pearl Monocytes/100 WBC (Bld) 6.8 % Normal 1.7-12.0 [facility] Comment on above: Performed By: #### B MP #### [facility] [address] [place] [address] Dr. Raf Pearl NEUT # 3.4 103/ul Normal 1.4-6.5 [facility] Comment on above: Performed By: #### B MP #### [facility] [address] [place] [address] Dr. Raf Pearl Neutrophils/100 WBC (Bld) 54.5 % Normal 43.0-75.0 [facility] Comment on above: Performed By: #### B MP #### [facility] [address] [address] [address] Raf Pearl Platelet mean volume (Bld) [Entitic vol] 9.7 fL Normal 9.5-13.5 [facility] Comment on above: Performed By: #### B MP #### [facility] [address] [address] [address] Raf Pearl PLT 384 103/ul Normal 150-450 [facility] Comment on above: Performed By: #### B MP #### [facility] [address] [address] [address] Raf Pearl RBC 3.95 106/ul Critically low 4.20-5.40 [facility] Comment on above: Performed By: #### B MP #### [facility] [address] [address] [address] Raf Pearl WBC 6.2 103/ul Normal 4.0-11.0 [facility] Comment on above: Performed By: #### B MP #### [facility] [address] [address] [address] Raf Pearl GLYCOHEMOGLOBIN A1Con 2021 ADA RECOMMENDATION SEE BELOW Normal [facility] Comment on above: Result Comment: ADA RECOMMENDED LIMIT 4.0 - 6.0 ADA THERAPEUTIC TARGET < 7.0 ACTION SUGGESTED > 7.0 Performed By: #### A 1C #### [facility] [address] [place] [address] Dr. Raf Pearl Glucose [Mass/Vol] 137 mg/dL Normal [facility] Comment on above: Performed By: #### A 1C #### [facility] [address] [place] [address] Dr. Raf Pearl HbA1c (Bld) [Mass fraction] 6.4 % Critically high 4.5-6.2 [facility] Comment on above: Performed By: #### A 1C #### [facility] [address] [place] [address] Dr. Raf Pearl LIPID PROFILEon 01-22-2022 CHOL-HDL RATIO NORM SEE BELOW Normal [facility] Comment on above: Result Comment: 3.3 - 4.4 LOW RISK 4.4 - 7.1 AVERAGE RISK 7.1 - 11.0 MODERATE RISK >11.0 HIGH RISK Performed By: #### B MP #### [facility] [address] [place] [address] Dr. Raf Pearl Cholesterol [Mass/Vol] 165 mg/dL Normal <=200 [facility] Comment on above: Performed By: #### B MP #### [facility] [address] [address] [address] Raf Pearl Cholesterol in HDL [Mass/Vol] 66 mg/dL Critically high 40-60 [facility] Comment on above: Performed By: #### B MP #### [facility] [address] [address] [address] Raf Pearl Cholesterol in LDL [Mass/Vol] 87.8 mg/dL Normal [facility] Comment on above: Performed By: #### B MP #### [facility] [address] [address] [address] Raf Pearl Cholesterol.total/Ch olesterol in HDL [Mass ratio] 2.5 {ratio} Normal [facility] Comment on above: Performed By: #### B MP #### [facility] [address] [address] [address] Raf Pearl HDL NORMAL > or = 60 mg/dl - LOW CARDIOVASCULAR RISK <40 mg/dl - HIGH CARDIOVASCULAR RISK Normal [facility] Comment on above: Performed By: #### B MP #### [facility] [address] [address] [address] Raf Pearl LDL CALC NORMAL SEE BELOW Normal [facility] Comment on above: Result Comment: <100 mg/dl OPTIMAL 100 - 129 mg/dl NEAR OR ABOVE OPTIMAL 130 - 159 mg/dl BORDERLINE HIGH 160 - 189 mg/dl HIGH >190 mg/dl VERY HIGH Performed By: #### B MP #### [facility] [address] [address] [address] Raf Pearl Triglyceride [Mass/Vol] 56 mg/dL Normal <=150 [facility] Comment on above: Performed By: #### B MP #### [facility] [address] [address] [address] Raf Pearl VLDL CALC 11.2 mg/dL Normal [facility] Comment on above: Performed By: #### B MP #### [facility] [address] [address] [address] Raf Pearl PROF 14(COMP METB)on 022 Albumin [Mass/Vol] 4.0 g/dL Normal 3.4-5.0 [facility] Comment on above: Performed By: #### B MP #### [facility] [address] [address] [address] Raf Pearl Albumin/Globulin [Mass ratio] 1.1 {ratio} Normal [facility] Comment on above: Performed By: #### B MP #### [facility] [address] [place] [address] Dr. Raf Pearl ALP [Catalytic activity/Vol] 81 U/L Normal 46-116 [facility] Comment on above: Performed By: #### B MP #### [facility] [address] [place] [address] Dr. Raf Pearl ALT [Catalytic activity/Vol] 26 U/L Normal 14-59 [facility] Comment on above: Performed By: #### B MP #### [facility] [address] [place] [address] Dr. Raf Pearl Anion gap [Moles/Vol] 12.1 mmol/L Normal [facility] Comment on above: Performed By: #### B MP #### [facility] [address] [place] [address] Dr. Raf Pearl AST [Catalytic activity/Vol] 16 U/L Normal 15-37 [facility] Comment on above: Performed By: #### B MP #### [facility] [address] [place] [address] Dr. Raf Pearl Bilirubin [Mass/Vol] 0.3 mg/dL Normal 0.2-1.0 [facility] Comment on above: Performed By: #### B MP #### [facility] [address] [place] [address] Dr. Raf Pearl Calcium [Mass/Vol] 9.2 mg/dL Normal 8.5-10.1 [facility] Comment on above: Performed By: #### B MP #### [facility] [address] [place] [address] Dr. Raf Pearl Chloride [Moles/Vol] 103 mmol/L Normal 98-107 [facility] Comment on above: Performed By: #### B MP #### [facility] [address] [address] [address] Raf Pearl CO2 [Moles/Vol] 26.9 mmol/L Normal 21.0-32.0 [facility] Comment on above: Performed By: #### B MP #### [facility] [address] [address] [address] Raf Pearl Creatinine [Mass/Vol] 1.17 mg/dL Critically high 0.55-1.02 [facility] Comment on above: Performed By: #### B MP #### [facility] [address] [address] [address] Raf Pearl EGFR-AF IRAQI 56 mL/min/1.73m2 Critically low >=60 [facility] Comment on above: Performed By: #### B MP #### [facility] [address] [place] [address] Dr. Raf Pearl EGFR-NON AF IRAQI 46 mL/min/1.73m2 Critically low >=60 [facility] Comment on above: Performed By: #### B MP #### [facility] [address] [place] [address] Dr. Raf Pearl Globulin (S) [Mass/Vol] 3.6 g/dL Normal [facility] Comment on above: Performed By: #### B MP #### [facility] [address] [place] [address] Dr. Raf Pearl Glucose [Mass/Vol] 141 mg/dL Critically high 74-106 [facility] Comment on above: Performed By: #### B MP #### [facility] [address] [address] [address] Raf Pearl Potassium [Moles/Vol] 4.0 mmol/L Normal 3.5-5.1 [facility] Comment on above: Performed By: #### B MP #### [facility] [address] [address] [address] Raf Pearl Protein [Mass/Vol] 7.6 g/dL Normal 6.4-8.2 [facility] Comment on above: Performed By: #### B MP #### [facility] [address] [address] [address] Raf Pearl Sodium [Moles/Vol] 138 mmol/L Normal 136-145 [facility] Comment on above: Performed By: #### B MP #### [facility] [address] [address] [address] Raf Pearl Urea nitrogen [Mass/Vol] 19.0 mg/dL Critically high 7.0-18.0 [facility] Comment on above: Performed By: #### B MP #### [facility] [address] [address] [address] Raf Pearl Urea nitrogen/Creatinine [Mass ratio] 16.2 mg/mg Normal [facility] Comment on above: Performed By: #### B MP #### [facility] [address] [address] [address] Raf Pearl VIT B12 AND FOLATEon 022 Cobalamin (Vitamin B12) [Mass/Vol] 786.0 pg/mL Normal 193.0-986.0 [facility] Comment on above: Performed By: #### B 12FOL #### [facility] [address] [address] [address] Raf Pearl FOLATE 21.80 ng/mL Normal 8.60-58.90 [facility] Comment on above: Performed By: #### B 12FOL #### [facility] [address] [place] [address] Dr. 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 Electronically signed by:Jeffrey Miles. Transcribed by: [email or web address], User Resident: ANTHONY SUNG Electronically Signed by: JEFFREY MILES @ 11/04/2018 04:42 PM I personally read this/these film(s) with this resident Normal [facility] Comment on above: Order Comment: , pos top, eval hardware and alignment , Views (X-RAY, CERVICAL SPINE): AP, Lateral, Odontoid , postop, eval hardware and alignment , Views (X-RAY, CERVICAL SPINE): AP, Lateral, Odontoid , , , Ordering Provider - [facility] CL[facility] , POC GLUCOSE LABon 08-25-2018 Glucose [Mass/Vol] 98 mg/dL Normal 70-100 [facility] Comment on above: Performed By: #### 5 6101, [address]9597 #### [facility] [address] [place] [id number], [facility] Glucose [Mass/Vol] 208 mg/dL High 70-100 [facility] Comment on above: Performed By: #### 5 6101, [id number] #### [facility] [address] [place] [address], [place] BASIC METABOLIC PANELon Calcium [Mass/Vol] 7.7 mg/dL Low 8.6-10.3 [facility] Comment on above: Order Comment: No: D o not add to previous draw Performed By: #### 5 0103 #### [facility] [address] [place] [address], [place] Chloride [Moles/Vol] 109 mmol/L High 98-107 [facility] Comment on above: Order Comment: No: D o not add to previous draw Performed By: #### 5 0103 #### [facility] [address] [place] [address], [place] CO2 [Moles/Vol] 24 mmol/L Normal 21-31 [facility] Comment on above: Order Comment: No: D o not add to previous draw Performed By: #### 5 0103 #### [facility] [address] [place] [address], [place] Creatinine [Mass/Vol] 0.89 mg/dL Normal 0.60-1.20 [facility] Comment on above: Order Comment: No: D o not add to previous draw Performed By: #### 5 0103 #### [facility] [address] [place] [address], [place] GFR/1.73 sq M predicted among blacks MDRD (S/P/Bld) [Vol rate/Area] mL/min/{1.73_m2} Normal >60 [facility] Comment on above: Order Comment: No: D o not add to previous draw Performed By: #### 5 0103 #### [facility] [address] [place] [address], [place] GFR/1.73 sq M predicted among non-blacks MDRD (S/P/Bld) [Vol rate/Area] mL/min/{1.73_m2} Normal >60 [facility] Comment on above: Order Comment: No: D o not add to previous draw Performed By: #### 5 0103 #### [facility] [address] [place] [address], [place] Glucose [Mass/Vol] 94 mg/dL Normal 70-100 [facility] Comment on above: Order Comment: No: D o not add to previous draw Performed By: #### 5 0103 #### [facility] [address] [place] [address], [place] Potassium [Moles/Vol] 3.3 mmol/L Low 3.5-5.1 [facility] Comment on above: Order Comment: No: D o not add to previous draw Performed By: #### 5 0103 #### [facility] [address] [place] [address], [place] Sodium [Moles/Vol] 140 mmol/L Normal 136-145 [facility] Comment on above: Order Comment: No: D o not add to previous draw Performed By: #### 5 0103 #### [facility] [address] [place] [address], [facility] Urea nitrogen [Mass/Vol] 11 mg/dL Normal 7-25 [facility] Comment on above: Order Comment: No: D o not add to previous draw Performed By: #### 5 0103 #### [facility] [address] [facility] [place] [address], [facility] CBC W/DIFFon 08-24-2018 ABS BASOPHILS 0.0 10*3/uL Normal 0.0-0.2 The [facility] Comment on above: Order Comment: No: D o not add to previous draw Performed By: #### 5 0103 #### [facility] [address] [facility] [place] [address], [facility] ABS IMM GRANS 0.1 10*3/uL Normal 0.0-0.2 [facility] Comment on above: Order Comment: No: D o not add to previous draw Performed By: #### 5 0103 #### [facility] [address] [facility] [place] [address], [facility] ABS NEUTROPHILS 12.5 10*3/uL High 1.6-7.6 The [facility] Comment on above: Order Comment: No: D o not add to previous draw Performed By: #### 5 0103 #### [facility] [address] [facility] [place] [address], [facility] Basophils/100 WBC (Bld) 0.3 % Normal 0.0-1.0 [facility] Comment on above: Order Comment: No: D o not add to previous draw Performed By: #### 5 0103 #### [facility] [address] [place] [address], [facility] Eosinophils (Bld) [#/Vol] 0.0 10*3/uL Normal 0.0-0.5 [facility] Comment on above: Order Comment: No: D o not add to previous draw Performed By: #### 5 0103 #### [facility] [address] [place] [address], [facility] Eosinophils/100 WBC (Bld) 0.0 % Normal 0.0-6.0 [facility] Comment on above: Order Comment: No: D o not add to previous draw Performed By: #### 5 0103 #### [facility] [address] [place] [address], [facility] Erythrocyte distribution width (RBC) [Ratio] 13.0 % Normal 11.5-15.0 [facility] Comment on above: Order Comment: No: D o not add to previous draw Performed By: #### 5 0103 #### [facility] [address] [place] [address], [facility] Hematocrit (Bld) [Volume fraction] 31.7 % Low 36.0-45.0 [facility] Comment on above: Order Comment: No: D o not add to previous draw Performed By: #### 5 0103 #### [facility] [address] [place] [address], [facility] Hemoglobin (Bld) [Mass/Vol] 10.3 g/dL Low 12.0-15.0 [facility] Comment on above: Order Comment: No: D o not add to previous draw Performed By: #### 5 0103 #### [facility] [address] [place] [address], [place] IMMATURE GRANS 0.5 % Normal 0.0-1.0 [facility] Comment on above: Order Comment: No: D o not add to previous draw Performed By: #### 5 0103 #### [facility] [address] [place] [address], [facility] Lymphocytes (Bld) [#/Vol] 1.9 10*3/uL Normal 1.2-4.0 [facility] Comment on above: Order Comment: No: D o not add to previous draw Performed By: #### 5 0103 #### [facility] [address] [facility] [place] [address], [facility] Lymphocytes/100 WBC (Bld) 11.9 % Low 20.0-45.0 [facility] Comment on above: Order Comment: No: D o not add to previous draw Performed By: #### 5 0103 #### [facility] [address] [facility] [place] [id number], [facility] MCH (RBC) [Entitic mass] 31.7 pg Normal 27.0-33.0 [facility] Comment on above: Order Comment: No: D o not add to previous draw Performed By: #### 5 3 #### [facility] [address] [place] [address], [facility] MCHC (RBC) [Mass/Vol] 32.5 g/dL Normal 32.0-35.0 [facility] Comment on above: Order Comment: No: D o not add to previous draw Performed By: #### 5 0103 #### [facility] [address] [facility] [place] [address], [facility] MCV (RBC) [Entitic vol] 97.5 fL Normal 82.0-98.0 [facility] Comment on above: Order Comment: No: D o not add to previous draw Performed By: #### 5 0103 #### [facility] [address] [facility] [place] [address], [facility] Monocytes (Bld) [#/Vol] 1.2 10*3/uL High 0.1-1.0 [facility] Comment on above: Order Comment: No: D o not add to previous draw Performed By: #### 5 3 #### [facility] [address] [facility]. [place] [id number], [facility] MONOS 7.7 % Normal 5.0-12.0 [facility] Comment on above: Order Comment: No: D o not add to previous draw Performed By: #### 5 0103 #### [facility] [address] [place] [address], [facility] Neutrophils/100 WBC (Bld) 79.6 % High 40.0-72.0 [facility] Comment on above: Order Comment: No: D o not add to previous draw Performed By: #### 5 0103 #### [facility] [address] [place] [id number], [facility] Nucleated RBC/100 WBC (Bld) [Ratio] 0 % Normal 0-0 [facility] Comment on above: Order Comment: No: D o not add to previous draw Performed By: #### 5 0103 #### [facility] [address] [place] [id number], [facility] PLAT CNT 263 10*3/uL Normal 150-400 [facility] Comment on above: Order Comment: No: D o not add to previous draw Performed By: #### 5 0103 #### [facility] [address] [place] [id number], [facility] RBC (Bld) [#/Vol] 3.25 10*6/uL Low 3.80-5.00 The [facility] Comment on above: Order Comment: No: D o not add to previous draw Performed By: #### 5 0103 #### [facility] [address] [place] [id number], [place] WBC (Bld) [#/Vol] 15.70 10*3/uL High 4.00-10.60 [facility] Comment on above: Order Comment: No: D o not add to previous draw Performed By: #### 5 0103 #### [facility] [address] [place] [id number], [facility] LIPID PROFILEon 08-24-2018 Cholesterol [Mass/Vol] 128 mg/dL Normal 120-200 [facility] Comment on above: Order Comment: No: D o not add to previous draw Result Comment: CHOL ESTEROL REFERENCE RANGE: 20 YEARS AND OLDER CARDIOVASCULAR RISK Less than 200 mg/dl Low Risk 200 to 239 mg/dl Borderline Risk 240 mg/dl and greater High Risk Performed By: #### 5 0103 #### [facility] [address] [place] [address], [place] Cholesterol in HDL [Mass/Vol] 49 mg/dL Normal 23-92 [facility] Comment on above: Order Comment: No: D o not add to previous draw Result Comment: Slig ht variation in normal range could be due to gender and/or age. HDL CHOLESTEROL REFERENCE RANGE: 20 years and older Cardiovascular Risk > or =60 mg/dL Desirable 40 TO 59 mg/dL Low Risk <40 mg/dL High Risk Performed By: #### 5 0103 #### [facility] [address] [place] [address], [facility] Cholesterol in LDL [Mass/Vol] 65 mg/dL Normal 0-130 [facility] Comment on above: Order Comment: No: D o not add to previous draw Result Comment: LDL IS A CALCULATION LDL IS ONLY VALID IF THE TRIG IS LESS THAN 400. Performed By: #### 5 0103 #### [facility] [address] [place] [address], [place] Cholesterol.total/Ch olesterol in HDL [Mass ratio] 2.6 {ratio} Normal .0-4.5 [facility] Comment on above: Order Comment: No: D o not add to previous draw Performed By: #### 5 0103 #### [facility] [address] [place] [address], [place] NON-HDL CHOLESTEROL 79 mg/dL Normal [facility] Comment on above: Order Comment: No: D o not add to previous draw Performed By: #### 5 0103 #### [facility] [address] [place] [address], [place] Triglyceride [Mass/Vol] 69 mg/dL Normal 40-149 [facility] Comment on above: Order Comment: No: D o not add to previous draw Result Comment: TRIG LYCERIDE REFERENCE RANGE: 20 YEARS AND OLDER CARDIOVASCULAR RISK LESS THAN 150 mg/dl LOW RISK 150 TO 199 mg/dl BORDERLINE RISK 200 mg/dl AND GREATER HIGH RISK Performed By: #### 5 0103 #### [facility] [address] [place] [address], [place] VLDL CHOL 14 mg/dL Normal 0-40 [facility] Comment on above: Order Comment: No: D o not add to previous draw Performed By: #### 5 0103 #### [facility] [address] [place] [address], [place] POC GLUCOSE LABon 08-24-2018 Glucose [Mass/Vol] 81 mg/dL Normal 70-100 [facility] Comment on above: Performed By: #### 5 6101, 79905 #### [facility] [address] [place] [address], [place] Glucose [Mass/Vol] 213 mg/dL High 70-100 [facility] Comment on above: Performed By: #### 5 6101, 26407 #### [facility] [address] [place] [address], [place] Glucose [Mass/Vol] 146 mg/dL High 70-100 [facility] Comment on above: Performed By: #### 5 6101, 05062 #### [facility] [address] [place] [address], [place] Glucose [Mass/Vol] 162 mg/dL High 70-100 [facility] Comment on above: Performed By: #### 5 6101, 95986 #### [facility] [address] [place] [address], [place] BASIC METABOLIC PANELon 05- Calcium [Mass/Vol] 8.4 mg/dL Low 8.6-10.3 [facility] Comment on above: Order Comment: Yes: Add to Previous draw if able Performed By: #### 5 0103 #### [facility] [address] [place] [address], [place] Chloride [Moles/Vol] 103 mmol/L Normal 98-107 [facility] Comment on above: Order Comment: Yes: Add to Previous draw if able Performed By: #### 5 0103 #### [facility] [address] [place] [address], [place] CO2 [Moles/Vol] 26 mmol/L Normal 21-31 [facility] Comment on above: Order Comment: Yes: Add to Previous draw if able Performed By: #### 5 0103 #### [facility] [address] [place] [address], [place] Creatinine [Mass/Vol] 1.03 mg/dL Normal 0.60-1.20 [facility] Comment on above: Order Comment: Yes: Add to Previous draw if able Performed By: #### 5 0103 #### [facility] [address] [place] [address], [place] GFR/1.73 sq M predicted among blacks MDRD (S/P/Bld) [Vol rate/Area] mL/min/{1.73_m2} Normal >60 [facility] Comment on above: Order Comment: Yes: Add to Previous draw if able Performed By: #### 5 0103 #### [facility] [address] [place] [address], [place] GFR/1.73 sq M predicted among non-blacks MDRD (S/P/Bld) [Vol rate/Area] 54 ml/min/1.73sq m Abnormal >60 [facility] Comment on above: Order Comment: Yes: Add to Previous draw if able Performed By: #### 5 0103 #### [facility] [address] [place] [address], [place] Glucose [Mass/Vol] 209 mg/dL High 70-100 [facility] Comment on above: Order Comment: Yes: Add to Previous draw if able Performed By: #### 5 0103 #### [facility] [address] [place] [address], [facility] Potassium [Moles/Vol] 3.9 mmol/L Normal 3.5-5.1 [facility] Comment on above: Order Comment: Yes: Add to Previous draw if able Performed By: #### 5 0103 #### [facility] [address] [place] [address], [facility] Sodium [Moles/Vol] 135 mmol/L Low 136-145 [facility] Comment on above: Order Comment: Yes: Add to Previous draw if able Performed By: #### 5 0103 #### [facility] [address] [place] [address], [facility] Urea nitrogen [Mass/Vol] 16 mg/dL Normal 7-25 [facility] Comment on above: Order Comment: Yes: Add to Previous draw if able Performed By: #### 5 0103 #### [facility] [address] [place] [address], [facility] CBC COMPLETE BLOOD COUNTon 0 08-23-2018 Erythrocyte distribution width (RBC) [Ratio] 12.8 % Normal 11.5-15.0 [facility] Comment on above: Order Comment: Yes: Add to Previous draw if able Performed By: #### 5 0103 #### [facility] [address] [place] [address], [facility] Hematocrit (Bld) [Volume fraction] 35.0 % Low 36.0-45.0 [facility] Comment on above: Order Comment: Yes: Add to Previous draw if able Performed By: #### 5 0103 #### [facility] [address] [place] [address], [facility] Hemoglobin (Bld) [Mass/Vol] 11.2 g/dL Low 12.0-15.0 [facility] Comment on above: Order Comment: Yes: Add to Previous draw if able Performed By: #### 5 0103 #### [facility] [address] [place] [address], [facility] MCH (RBC) [Entitic mass] 31.5 pg Normal 27.0-33.0 [facility] Comment on above: Order Comment: Yes: Add to Previous draw if able Performed By: #### 5 3 #### [facility] [address] [place] [address], [facility] MCHC (RBC) [Mass/Vol] 32.0 g/dL Normal 32.0-35.0 [facility] Comment on above: Order Comment: Yes: Add to Previous draw if able Performed By: #### 5 102 #### [facility] [address] [facility] [place] [address], [facility] MCV (RBC) [Entitic vol] 98.3 fL High 82.0-98.0 [facility] Comment on above: Order Comment: Yes: Add to Previous draw if able Performed By: #### 5 102 #### [facility] [address] [facility]. [address] Nucleated RBC/100 WBC (Bld) [Ratio] 0 % Normal 0-0 [facility] Comment on above: Order Comment: Yes: Add to Previous draw if able Performed By: #### 5 3 #### [facility] [address] [facility] [place] [address], [facility] PLAT CNT 276 10*3/uL Normal 150-400 [facility] Comment on above: Order Comment: Yes: Add to Previous draw if able Performed By: #### 5 102 #### [facility] [address] [facility] [place] [address], [facility] RBC (Bld) [#/Vol] 3.56 10*6/uL Low 3.80-5.00 [facility] Comment on above: Order Comment: Yes: Add to Previous draw if able Performed By: #### 5 0103 #### [address] WBC (Bld) [#/Vol] 14.61 10*3/uL High 4.00-10.60 [facility] Comment on above: Order Comment: Yes: Add to Previous draw if able Performed By: #### 5 0103 #### [address] CERVICAL SPINE 2 OR 3 VWSon 08-23-2018 CERVICAL SPINE 2 OR 3 [facility] Department of Radiology [address] [place], [place] [id number] Patient Name: CRISELDA MORFIN : 1955 Sex: F Age: Race: White Pt. Location: OUT Patient Status: I Ordered Date: 08/23/2018 9:00:00 [...] C6. Electronically signed by:Xiomara Nath. Transcribed by: [email or web address], User Resident: Electronically Signed by: XIOMARA NATH @ 08/23/2018 04:07 PM Normal [facility] Comment on above: Order Comment: C4-C5 , C5-C6 ANTERIOR CERVICAL DISCECTOMY WITH FUSION Operative Reporton 9 Operative Report MR#: [id number] [facility] Pt. Name: Criselda Morfin Room #: 0C Discharge Date: Birthdate: 1955 OPERATIVE REPORT DATE OF SURGERY: 08/23/2018 SURGEON: Demetris Askew M.D. 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 POSTOPERATIVE DIAGNOSIS: Herniated cervical disk and spinal stenosis from C4 through C6. SUPERVISOR [employer]: ELIDIA Castle. ANESTHESIA: Endotracheal, Dr. Falcon. PROCEDURE: [...] size 8 at C5-6. The plate was [place], size 35 mm. The screws were 6, size 4 x 14. Once this decompression completed, SSEP remained stable and MEP were normal. The BERTA was brought in and placed and closure was carried out in usual fashion. The patient tolerated the procedure well. Electronically Signed by: Demetris Askew M.D. 09/07/2018 04:43 P Demetris Askew M.D. Date Dict: 08/23/2018/12:00 Jeffrey/Demetris Askew M.D. Date Trans: 08/23/2018 01:26 P/jennifero [id number] Normal [facility] POC GLUCOSE LABon 08-23-2018 Glucose [Mass/Vol] 94 mg/dL Normal 70-100 [facility] Comment on above: Performed By: #### 5 0103 #### [facility] [address] [place] [address], [place] Glucose [Mass/Vol] 182 mg/dL High 70-100 [facility] Comment on above: Performed By: #### 5 0103 #### [facility] [address] [place] [address], [place] Glucose [Mass/Vol] 190 mg/dL High 70-100 [facility] Comment on above: Performed By: #### 5 0103 #### [facility] [address] [place] [address], [place] Glucose [Mass/Vol] 157 mg/dL High 70-100 [facility] Comment on above: Performed By: #### 5 0103 #### [facility] [address] [facility] [place] [address], [facility] *MRSA/MSSA DNA NASALon 08-08 *MRSA/MSSA DNA NASAL Clinical Report: (D ) Specimen: NASAL SWAB Collected: 08/08/2018 15:04 Status: Final Last Updated: 08/08/2018 20:45 MSSA DNA (Final) Negative MRSA DNA (Final) Negative Normal [facility] Comment on above: Performed By: #### 3 1595 #### [facility] [address] [place] [address], [place] *URINE CULTUREon 08-08-2018 Bacteria identified Cx Nom [...] CEFAZOLIN (CZ) 2 Susceptible 4 Susceptible CEFTRIAXONE (LINE CREW SUPERVISOR) <=0.5 Susceptible <=0.5 Susceptible CIPROFLOXACIN (CIP) <=0.5 Susceptible <=0.5 Susceptible GENTAMICIN (GM) 1 Susceptible 4 Susceptible MEROPENEM (MEM) <=0.125 Susceptible NITROFURANTOIN (FT) 32 Susceptible >64 Resistant PIP/TAZO (TZP) 4/4 Susceptible PIP/TAZO (TZP) <=2/4 Susceptible TOBRAMYCIN (TOB) 1 Susceptible 2 Susceptible TRIMETH/SULFA (SXT) <=0.5/9.5 Susceptible <=0.5/9.5 Susceptible Antibiotic Summary Grid: AMS AM AZM CZ LINE CREW SUPERVISOR CIP GM MEM FT TZP TOB Citrobacter S R S S S S S S S S S amalonaticus complex Proteus mirabilis S S S S S S S R S S SXT Citrobacter S amalonaticus complex Proteus mirabilis S Normal [facility] Comment on above: Performed By: #### 3 0339 #### [place] [address] [address] APTTon 08-08-2018 aPTT Coag (Bld) [Time] 28.0 s Normal 25.0-35.0 [facility] Comment on above: Result Comment: ALL RESULTS [...] THIS PURPOSE. Performed By: #### 5 6101, [id number] #### [facility] [address] BASIC METABOLIC PANELon 07-18 Calcium [Mass/Vol] 9.6 mg/dL Normal 8.6-10.3 [facility] Comment on above: Performed By: #### 0 0071 #### [facility] [address] [facility] [place] [address], [facility] Chloride [Moles/Vol] 103 mmol/L Normal 98-107 [facility] Comment on above: Performed By: #### 0 0071 #### [facility] [address] [facility] [place] [address], [facility] CO2 [Moles/Vol] 30 mmol/L Normal 21-31 [facility] Comment on above: Performed By: #### 0 0071 #### [facility] [address] [facility] [place] [address], [facility] Creatinine [Mass/Vol] 1.07 mg/dL Normal 0.60-1.20 [facility] Comment on above: Performed By: #### 0 0071 #### [facility] [address] [facility] [place] [address], [facility] GFR/1.73 sq M predicted among blacks MDRD (S/P/Bld) [Vol rate/Area] mL/min/{1.73_m2} Normal >60 [facility] Comment on above: Performed By: #### 0 0071 #### [facility] [address] [place] [id number], [facility] GFR/1.73 sq M predicted among non-blacks MDRD (S/P/Bld) [Vol rate/Area] 52 ml/min/1.73sq m Abnormal >60 [facility] Comment on above: Performed By: #### 0 0071 #### [facility] [address] [facility] [place] [place] [address], [facility] Glucose [Mass/Vol] 93 mg/dL Normal 70-100 [facility] Comment on above: Performed By: #### 0 0071 #### [facility] [address] [facility] [place] [address], [facility] Potassium [Moles/Vol] 4.2 mmol/L Normal 3.5-5.1 [facility] Comment on above: Performed By: #### 0 0071 #### [facility] [address] [facility] [place] [address], [facility] Sodium [Moles/Vol] 139 mmol/L Normal 136-145 [facility] Comment on above: Performed By: #### 0 0071 #### [facility] [address] [facility]. [address] Urea nitrogen [Mass/Vol] 18 mg/dL Normal 7-25 [facility] Comment on above: Performed By: #### 0 1 #### [facility] [address] [facility] [place] [address], [facility] CBC W/DIFFon 08-08-2018 ABS BASOPHILS 0.1 10*3/uL Normal 0.0-0.2 [facility] Comment on above: Performed By: #### 5 102 #### [facility] [address] [place] [address], [facility] ABS IMM GRANS 0.0 10*3/uL Normal 0.0-0.2 [facility] Comment on above: Performed By: #### 5 102 #### [facility] [address] [place] [address], [facility] ABS NEUTROPHILS 5.0 10*3/uL Normal 1.6-7.6 The [facility] Comment on above: Performed By: #### 5 0103 #### [facility] [address] [place] [address], [facility] Basophils/100 WBC (Bld) 0.9 % Normal 0.0-1.0 [facility] Comment on above: Performed By: #### 5 0103 #### [facility] [address] [place] [address], [facility] Eosinophils (Bld) [#/Vol] 0.2 10*3/uL Normal 0.0-0.5 [facility] Comment on above: Performed By: #### 5 0103 #### [facility] [address] [place] [address], [facility] Eosinophils/100 WBC (Bld) 1.8 % Normal 0.0-6.0 [facility] Comment on above: Performed By: #### 5 0103 #### [facility] [address] [place] [address], [facility] Erythrocyte distribution width (RBC) [Ratio] 13.1 % Normal 11.5-15.0 [facility] Comment on above: Performed By: #### 5 0103 #### [facility] [address] [place] [address], [facility] Hematocrit (Bld) [Volume fraction] 37.2 % Normal 36.0-45.0 [facility] Comment on above: Performed By: #### 5 0103 #### [facility] [address] [place] [address], [facility] Hemoglobin (Bld) [Mass/Vol] 12.3 g/dL Normal 12.0-15.0 [facility] Comment on above: Performed By: #### 5 0103 #### [facility] [address] [place] [address], [facility] IMMATURE GRANS 0.5 % Normal 0.0-1.0 [facility] Comment on above: Performed By: #### 5 0103 #### [facility] [address] [facility] [place] [place] [address], [facility] Lymphocytes (Bld) [#/Vol] 2.2 10*3/uL Normal 1.2-4.0 [facility] Comment on above: Performed By: #### 5 0103 #### [facility] [address] [facility] [place] [address], [facility] Lymphocytes/100 WBC (Bld) 26.5 % Normal 20.0-45.0 [facility] Comment on above: Performed By: #### 5 3 #### [facility] [address] [facility] [place] [address], [facility] MCH (RBC) [Entitic mass] 31.4 pg Normal 27.0-33.0 [facility] Comment on above: Performed By: #### 5 3 #### [facility] [address] [facility] [address] MCHC (RBC) [Mass/Vol] 33.1 g/dL Normal 32.0-35.0 [facility] Comment on above: Performed By: #### 5 3 #### [facility] [address] [facility] [place] [address], [facility] MCV (RBC) [Entitic vol] 94.9 fL Normal 82.0-98.0 [facility] Comment on above: Performed By: #### 5 3 #### [facility] [address] [facility] [place] [address], [facility] Monocytes (Bld) [#/Vol] 0.7 10*3/uL Normal 0.1-1.0 [facility] Comment on above: Performed By: #### 102 #### [facility] [address] [place] [address], [facility] MONOS 8.3 % Normal 5.0-12.0 [facility] Comment on above: Performed By: #### 5 0103 #### [facility] [address] [place] [address], [facility] Neutrophils/100 WBC (Bld) 62.0 % Normal 40.0-72.0 [facility] Comment on above: Performed By: #### 5 0103 #### [facility] [address] [facility] [place] [address], [facility] Nucleated RBC/100 WBC (Bld) [Ratio] 0 % Normal 0-0 [facility] Comment on above: Performed By: #### 5 0103 #### [facility] [address] [facility] [place] [address], [facility] PLAT CNT 325 10*3/uL Normal 150-400 [facility] Comment on above: Performed By: #### 5 0103 #### [facility] [address] [facility] [place] [address], [facility] RBC (Bld) [#/Vol] 3.92 10*6/uL Normal 3.80-5.00 [facility] Comment on above: Performed By: #### 5 0103 #### [facility] [address] [facility] [place] [address], [facility] WBC (Bld) [#/Vol] 8.12 10*3/uL Normal 4.00-10.60 [facility] Comment on above: Performed By: #### 5 3 #### [facility] [address] CERVICAL SPINE 4 OR 5 VIEWSo n 08-08-2018 CERVICAL SPINE 4 OR 5 VIEWS [facility] Department of Radiology [address] [place] [address] [id number] Patient Name: CRISELDA MORFIN : 1955 Sex: F Age: Race: White Pt. Location: 85 Patient Status: O Ordered Date: 08/08/2018 2:25:00 [...] level Electronically signed by:Xiomara Nath. Transcribed by: [email or web address], User Resident: Electronically Signed by: XIOMARA NATH @ 08/08/2018 03:24 PM Normal [facility] Comment on above: Order Comment: , POS T OP XRAY AP/LAT ONLY , POST OP XRAY AP/LAT ONLY , , , Ordering Provider - DEMETRIS ASKEW MD , HEMOGLOBIN A1Con 08-08-2018 HbA1c (Bld) [Mass fraction] 154 mg/dL High 70-126 [facility] Comment on above: Performed By: #### 4 6447 #### [facility] [address] HbA1c (Bld) [Mass fraction] 7.0 % High 4.0-6.0 [facility] Comment on above: Performed By: #### 4 6447 #### [facility] [address] PROTHROMBIN TIMEon 9 INR Coag (PPP) [Relative time] 0.93 {INR} Normal 0.91-1.16 [facility] Comment on above: Result Comment: ACCC P [...] CHEST 1995;108:[id number]. Performed By: #### 5 6101, [id number] #### [facility] [address] [place] [id number], [facility] PT Coag (PPP) [Time] 12.5 s Normal 12.3-14.8 [facility] Comment on above: Result Comment: ALL RESULTS MUST BE INTERPRETED WITH RESPECT TO BLOOD DRAWING ARTIFACT OR DILUTION ERROR OF ANTICOAGULANT AT THE TIME OF SAMPLING. Performed By: #### 5 6101, [id number] #### [facility] [address] [place] [address], [facility] TYPE AND CROSSMATCHon 2018 ABO INTERPRETATION O Normal [facility] Comment on above: Performed By: #### 6 2594 #### [facility] [address] [place] [address], [facility] RH INTERPRETATION Positive Normal The [facility] Comment on above: Performed By: #### 6 2594 #### [facility] [address] [place] [address], [facility] URINALYSIS REFLEXon 08-09-19 19 Appearance (U) CLEAR Normal CLEAR [facility] Comment on above: Performed By: #### 3 0965 #### [facility] [address] [place] [address], [facility] Bilirubin [Mass/Vol] Negative Normal NEGATIVE [facility] Comment on above: Performed By: #### 3 0965 #### [facility] [address] [place] [address], [place] BLOOD Negative Normal NEGATIVE [facility] Comment on above: Performed By: #### 3 0956 #### [facility] [address] [place] [address], [place] Color (U) STRAW Abnormal YELLOW [facility] Comment on above: Performed By: #### 3 0965 #### [facility] [address] [place] [address], [place] EPIS NONE SEEN Normal FEW,OCC,NONE SEEN [facility] Comment on above: Performed By: #### 3 0965 #### [facility] [address] [place] [address], [place] Glucose [Mass/Vol] Negative Normal NEGATIVE [facility] Comment on above: Performed By: #### 3 0965 #### [facility] [address] [place] [address], [place] KETONE Negative Normal NEGATIVE [facility] Comment on above: Performed By: #### 3 0965 #### [facility] [address] [place] [address], [place] LEUK ALVARADO TRACE Abnormal NEGATIVE [facility] Comment on above: Performed By: #### 3 0965 #### [facility] [address] [place] [address], [place] Nitrite Ql (U) Negative Normal NEGATIVE The [facility] Comment on above: Performed By: #### 3 0965 #### [facility] [address] [place] [address], [place] pH (Bld) 6.0 Normal 5.0-8.0 [facility] Comment on above: Performed By: #### 3 0965 #### [facility] [address] [place] [address], [place] Protein (U) [Mass/Vol] Negative Normal NEGATIVE [facility] Comment on above: Performed By: #### 3 0965 #### [facility] [address] [place] [address], [place] RBC (U) [#/Vol] 0-2 Abnormal NONE SEEN The [facility] Comment on above: Performed By: #### 3 0965 #### [facility] [address] [facility]. [address] SPEC GRAV 1.011 Low 1.015-1.020 The [facility] Comment on above: Performed By: #### 3 0965 #### [facility] [address] [facility] [address] WBC UA 0-2 Abnormal NONE SEEN [facility] Comment on above: Performed By: #### 3 0965 #### [facility] [address] [facility]. [address] Social History Date Type Detail Facility Start: 06-02-2020 Tobacco smoking status NHIS Never smoked tobacco (finding) [facility] Start: 1955 Sex Assigned At Female F [facility] Unknown if ever smoked [facility] Other Sex Assigned At Sex Assigned At Bir th [facility] Other Vital Signs Date Time Vital Sign Value Performing Clinician Facility 09-24-2022 08:10-0400 Body height 149.86 cm Rin Nicholson Other [facility] Other 09-24-2022 08:10-0400 Body mass index (BMI) [Ratio] 29.89 kg/m2 Rin Nicholson Other [facility] Other 09-24-2022 08:10-0400 Body temperature 98.6 [degF] Rin Nicholson Other [facility] Other 09-24-2022 08:10-0400 Body weight 67.13 kg Rin Nicholson Other [facility] Other 09-24-2022 08:10-0400 Diastolic blood pressure 84 mm[Hg] Rin Nicholson Other [facility] Other 09-24-2022 08:10-0400 Respiratory rate 18 /min Rin Nicholson Other [facility] Other 09-24-2022 08:10-0400 SaO2% (BldA) [Mass fraction] 97 % Rin Nicholson Other [facility] Other 09-24-2022 08:10-0400 Systolic blood pressure 126 mm[Hg] Rin Nicholson Other [facility] Other 08-09-2022 18:20-0400 Body height 149.86 cm Rin Nicholson Other [facility] Other 08-09-2022 18:20-0400 Body mass index (BMI) [Ratio] 29.89 kg/m2 Rin Nicholson Other [facility] Other 08-09-2022 18:20-0400 Body temperature 98.2 [degF] Rin Nicholson Other [facility] Other 08-09-2022 18:20-0400 Body weight 67.13 kg Rin Nicholson Other [facility] Other 08-09-2022 18:20-0400 Diastolic blood pressure 78 mm[Hg] Rin Nicholson Other [facility] Other 08-09-2022 18:20-0400 Respiratory rate 16 /min Rin Nicholson Other [facility] Other 08-09-2022 18:20-0400 SaO2% (BldA) [Mass fraction] 98 % Rin Nicholson Other [facility] Other 08-09-2022 18:20-0400 Systolic blood pressure 136 mm[Hg] Rin Nicholson Other [facility] Other 02-08-2022 18:00-0400 Body height 149.86 cm Rin Checobaljit Other [facility] Other 02-08-2022 18:00-0400 Body mass index (BMI) [Ratio] 28.98 kg/m2 Rin Kesslerbaljit Other [facility] Other 02-08-2022 18:00-0400 Body temperature 98.1 [degF] Rin Nicholson Other [facility] Other 02-08-2022 18:00-0400 Body weight 65.09 kg Rin Nicholson Other [facility] Other 02-08-2022 18:00-0400 Diastolic blood pressure 80 mm[Hg] Rin Nicholson Other [facility] Other 02-08-2022 18:00-0400 Respiratory rate 16 /min Rin Nicholson Other [facility] Other 02-08-2022 18:00-0400 SaO2% (BldA) [Mass fraction] 99 % Rin Nicholson Other [facility] Other 02-08-2022 18:00-0400 Systolic blood pressure 136 mm[Hg] Rin Nicholson Other [facility] Other Clinical Notes 02-11-2019 to 05-03-2023 Note Date & Type Note Facility 05-03-2023 Evaluation note Encounter Date Diagnosis Assessment Notes Apr, GERD (gastroesop hageal reflux disease) (ICD-10 - K21.9) [facility] Other 2023 Evaluation note* Encounter Date Diagnosis Assessment Notes Treatment Notes Treatment Clinical Notes Mar, Abnormal blood chemistry (ICD-10 - R79.9) Mar, Hypercalcemia (ICD-1 0 - E83.52) Mar, Stage 3a chronic kidney disease (ICD-10 - N18.31) [facility] Other 06-09-2023 Evaluation note* Encounter Date Diagnosis [...] see where her kidney studies are at. [facility] Other 04-24-2023 Evaluation note* Encounter Date Diagnosis [...] results. She may have to see the python web developer again but we will wait and see [...] ice the shoulder or alternate with heat. [facility] Other 01-05-2023 Evaluation note* Encounter Date Diagnosis Assessment Notes Treatment Notes Treatment Clinical Notes Apr, Hypertension (ICD-10 - I10) [facility] Other 10-24-2022 Evaluation note* Encounter Date Diagnosis [...] this. She does agree to see an drug discovery informatics specialist. A referral is provided. Her range [...] her wi th an order for a [employer] vaccine [facility] Other 02-01-2021 History general Narrative - Reported* Type Description Date Medical History Stress Test; [facility], normal per patient Medical History Pap and Pelvic 3 yea rs ago, OBGYN in [place] Medical History Mammogram over 5 yea rs; Normal at that time per patient Medical History CT Abdomen and Pelvi s over 5 years ago; [facility] Medical History Colonoscopy 8 years ago; in [place], normal in patient Medical History Chest X-Ray 12-15-11; normal, The [facility] Medical History Echocardiogram; 12-15; The [facility] Medical History Cardiolite Stress Te st 12-16-11; The [facility] Medical History Check's sugar's bid Medical History Heart Catherization; The [facility] Medical History breast cancer 04/2014 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, status post lumpectomy x2, sentinel lymph node biopsy and adjuvant radiotherapy that concluded on 08-21-14 Medical History 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 - Dr French from [facility] Surgical History Tonsillectomy age 21 Surgical History ovarian tumor removed and left ovary Surgical History complete hysterectomy 1993 Surgical History Heart Catherization; The [facility] Surgical History Right Shoulder Tear and bone spur removal; [facility] 07-27-12 Surgical History Left Shoulder Rotato r [...] for a kidney stone Surgical History mammogram [facility] 04/2017 Surgical History vertabrae fusion 08/2018 Hospitalization History ovarian tumor removed an d left overy Hospitalization History complete hysterectomy 19 94 [facility] Other 01-19-2021 History general Narrative - Reported* Type Description Date Medical History Stress Test; [facility], normal per patient Medical History Pap and Pelvic 3 yea rs ago, OBGYN in [place] Medical History Mammogram over 5 yea rs; Normal at that time per patient Medical History CT Abdomen and Pelvi s over 5 years ago; [facility] Medical History Colonoscopy 8 years ago; in [place], normal in patient Medical History Chest X-Ray 12-15-11; normal, The [facility] Medical History Echocardiogram; 12-15; The [facility] Medical History Cardiolite Stress Te st 12-16-11; The [facility] Medical History Check's sugar's bid Medical History Heart Catherization; [facility] Medical History breast cancer 04/2014 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, status post lumpectomy x2, sentinel lymph node biopsy and adjuvant radiotherapy that concluded on 08-21-14 Medical History 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 - Dr French from [facility] Surgical History Tonsillectomy age 21 Surgical History ovarian tumor removed and left ovary Surgical History complete hysterectomy 1993 Surgical History Heart Catherization; [facility] Surgical History Right Shoulder Tear and bone spur removal; [facility] 07-27-12 Surgical History Left Shoulder Rotato r [...] for a kidney stone Surgical History mammogram [facility] 04/2017 Surgical History vertabrae fusion 08/2018 Hospitalization History ovarian tumor removed an d left overy Hospitalization History complete hysterectomy 19 94 [facility] Other 12-27-2020 History general Narrative - Reported* Type Description Date Medical History Stress Test; [facility], normal per patient Medical History Pap and Pelvic 3 yea rs ago, OBGYN in [place] Medical History Mammogram over 5 yea rs; Normal at that time per patient Medical History CT Abdomen and Pelvi s over 5 years ago; [facility] Medical History Colonoscopy 8 years ago; in [place], normal in patient Medical History Chest X-Ray 12-15-11; normal, The [facility] Medical History Echocardiogram; 12-15; The [facility] Medical History Cardiolite Stress Te st 12-16-11; The [facility] Medical History Check's sugar's bid Medical History Heart Catherization; The [facility] Medical History breast cancer 04/2014 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 Misha Jamison 05/2014 and 06/2014 Surgical History Colonoscopy, Dr. Sourav aguilera Needs repeat in 2025 / Diverticulosis 06-17-15 Surgical History Lithotripsy for a kidney stone Surgical History mammogram [facility] 04/2017 Surgical History vertabrae fusion 08/2018 Hospitalization History ovarian tumor removed an d left overy Hospitalization History complete hysterectomy 19 94 [facility] Other 12-20-2020 History general Narrative - Reported* Type Description Date Medical History Stress Test; [facility], normal per patient Medical History Pap and Pelvic 3 yea rs ago, OBGYN in [place] Medical History Mammogram over 5 yea rs; Normal at that time per patient Medical History CT Abdomen and Pelvi s over 5 years ago; [facility] Medical History Colonoscopy 8 years ago; in [place], normal in patient Medical History Chest X-Ray 12-15-11; normal, The [facility] Medical History Echocardiogram; 12-15; [facility] Medical History Cardiolite Stress Te st 12-16-11; The [facility] Medical History Check's sugar's bid Medical History Heart Catherization; [facility] Medical History breast cancer 04/2014 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 Misha Jamison 05/2014 and 06/2014 Surgical History Colonoscopy, Dr. Sourav aguilera Needs repeat in 2025 / Diverticulosis 06-17-15 Surgical History Lithotripsy for a kidney stone Surgical History mammogram [facility] [place]2017 Surgical History vertabrae fusion 08/2018 Hospitalization History ovarian tumor removed an d left overy Hospitalization History complete hysterectomy [employer] Other 12-04-2020 History general Narrative - Reported* Type Description Date Medical History Stress Test; [facility], normal per patient Medical History Pap and Pelvic 3 yea rs ago, OBGYN in [place] Medical History Mammogram over 5 yea rs; Normal at that time per patient Medical History CT Abdomen and Pelvi s over 5 years ago; [facility] Medical History Colonoscopy 8 years ago; in [place], normal in patient Medical History Chest X-Ray 12-15-11; normal, [facility] Medical History Echocardiogram; 12-15; [facility] Medical History Cardiolite Stress Te st 12-16-11; [facility] Medical History Check's sugar's bid Medical History Heart Catherization; [facility] Medical History breast cancer 04/2014 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, status post lumpectomy x2, sentinel lymph node biopsy and adjuvant radiotherapy that concluded on 08-21-14 Medical History 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 - Dr French from [facility] Surgical History Tonsillectomy age 21 Surgical History ovarian tumor removed and left ovary Surgical History complete hysterectomy 1993 Surgical History Heart Catherization; [facility] Surgical History Right Shoulder Tear and bone spur removal; [facility] 07-27-12 Surgical History Left Shoulder Rotato r [...] for a kidney stone Surgical History mammogram [facility] 04/2017 Surgical History vertabrae fusion 08/2018 Hospitalization History ovarian tumor removed an d left overy Hospitalization History complete hysterectomy [employer] [employer] Other 11-08-2020 History general Narrative - Reported* Type Description Date Medical History Stress Test; [facility], normal per patient Medical History Pap and Pelvic 3 yea rs ago, OBGYN in [place] Medical History Mammogram over 5 yea rs; Normal at that time per patient Medical History CT Abdomen and Pelvi s over 5 years ago; [facility] Medical History Colonoscopy 8 years ago; in [place], normal in patient Medical History Chest X-Ray 12-15-11; normal, [facility] Medical History Echocardiogram; 12-15; [facility] Medical History Cardiolite Stress Te st 12-16-11; [facility] Medical History Check's sugar's bid Medical History Heart Catherization; [facility] Medical History breast cancer 04/2014 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, status post lumpectomy x2, sentinel lymph node biopsy and adjuvant radiotherapy that concluded on 08-21-14 Medical History 11/2016 diabetic shif ting in rt eye - Dr French from [facility] Surgical History Tonsillectomy age 21 Surgical History ovarian tumor removed and left ovary Surgical History complete hysterectomy 1993 Surgical History Heart Catherization; [facility] Surgical History Right Shoulder Tear and bone spur removal; [facility] 07-27-12 Surgical History Left Shoulder Rotato r [...] for a kidney stone Surgical History mammogram [facility] 04/2017 Surgical History vertabrae fusion 08/2018 Hospitalization History ovarian tumor removed an d left overy Hospitalization History complete hysterectomy 19 94 [employer] Other 06-20-2020 History general Narrative - Reported* Type Description Date Medical History Stress Test; [facility], normal per patient Medical History Pap and Pelvic 3 yea rs ago, OBGYN in [place] Medical History Mammogram over 5 yea rs; Normal at that time per patient Medical History CT Abdomen and Pelvi s over 5 years ago; [facility] Medical History Colonoscopy 8 years ago; in [place], normal in patient Medical History Chest X-Ray 12-15-11; normal, [facility] Medical History Echocardiogram; 12-15; [facility] Medical History Cardiolite Stress Te st 12-16-11; [facility] Medical History Check's sugar's bid Medical History Heart Catherization; [facility] Medical History breast cancer 04/2014 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, status post lumpectomy x2, sentinel lymph node biopsy and adjuvant radiotherapy that concluded on 08-21-14 Medical History 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 - Dr French from [facility] Surgical History Tonsillectomy age 21 Surgical History ovarian tumor removed and left ovary Surgical History complete hysterectomy 1993 Surgical History Heart Catherization; [facility] Surgical History Right Shoulder Tear and bone spur removal; [facility] 07-27-12 Surgical History Left Shoulder Rotato r [...] for a kidney stone Surgical History mammogram [facility] 04/2017 Surgical History vertabrae fusion 08/2018 Hospitalization History ovarian tumor removed an d left overy Hospitalization History complete hysterectomy 19 94 [facility] [employer] Other 05-03-2020 History general Narrative - Reported* Type Description Date Medical History Stress Test; [facility], normal per patient Medical History Pap and Pelvic 3 yea rs ago, OBGYN in [place] Medical History Mammogram over 5 yea rs; Normal at that time per patient Medical History CT Abdomen and Pelvi s over 5 years ago; [facility] Medical History Colonoscopy 8 years ago; Dr. 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, status post lumpectomy x2, sentinel lymph node biopsy and adjuvant radiotherapy that concluded on 08-21-14 Medical History 11/2016 diabetic shif ting in rt eye - Dr French from [facility] Surgical History Tonsillectomy age 21 Surgical History ovarian tumor removed and left ovary Surgical History complete hysterectomy 1993 Surgical History Heart Catherization; [facility] Surgical History Right Shoulder Tear and bone spur removal; [facility] 07-27-12 Surgical History Left Shoulder Rotato r [...] for a kidney stone Surgical History mammogram [facility] 04/2017 Surgical History vertabrae fusion 08/2018 Hospitalization History ovarian tumor removed an d left overy Hospitalization History complete hysterectomy 19 94 [employer] Other 04-26-2020 History general Narrative - Reported* Type Description Date Medical History Stress Test; [facility], normal per patient Medical History Pap and Pelvic 3 yea rs ago, OBGYN in [place] Medical History Mammogram over 5 yea rs; Normal at that time per patient Medical History CT Abdomen and Pelvi s over 5 years ago; [facility] Medical History Colonoscopy 8 years ago; in [place], normal in patient Medical History Chest X-Ray 12-15-11; normal, [facility] Medical History Echocardiogram; 12-15; [facility] Medical History Cardiolite Stress Te st 12-16-11; [facility] Medical History Check's sugar's bid Medical History Heart Catherization; [facility] Medical History breast cancer 04/2014 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, status post lumpectomy x2, sentinel lymph node biopsy and adjuvant radiotherapy that concluded on 08-21-14 Medical History 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 - Dr French from [facility] Surgical History Tonsillectomy age 21 Surgical History ovarian tumor removed and left ovary Surgical History complete hysterectomy 1993 Surgical History Heart Catherization; [facility] Surgical History Right Shoulder Tear and bone spur removal; [facility] 07-27-12 Surgical History Left Shoulder Rotato r [...] for a kidney stone Surgical History mammogram [facility] 04/2017 Surgical History vertabrae fusion 08/2018 Hospitalization History ovarian tumor removed an d left overy Hospitalization History complete hysterectomy 19 94 [facility] [employer] Other 04-21-2020 History general Narrative - Reported* Type Description Date Medical History Stress Test; [facility], normal per patient Medical History Pap and Pelvic 3 yea rs ago, OBGYN in [place] Medical History Mammogram over 5 yea rs; Normal at that time per patient Medical History CT Abdomen and Pelvi s over 5 years ago; [facility] Medical History Colonoscopy 8 years ago; in [place], normal in patient Medical History Chest X-Ray 12-15-11; normal, [facility] Medical History Echocardiogram; 12-15; [facility] Medical History Cardiolite Stress Te st 12-16-11; [facility] Medical History Check's sugar's bid Medical History Heart Catherization; [facility] Medical History breast cancer 04/2014 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, status post lumpectomy x2, sentinel lymph node biopsy and adjuvant radiotherapy that concluded on 08-21-14 Medical History 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 - Dr French from [facility] Surgical History Tonsillectomy age 21 Surgical History ovarian tumor removed and left ovary Surgical History complete hysterectomy 1993 Surgical History Heart Catherization; [facility] Surgical History Right Shoulder Tear and bone spur removal; [facility] 07-27-12 Surgical History Left Shoulder Rotato r [...] for a kidney stone Surgical History mammogram [facility] 04/2017 Surgical History vertabrae fusion 08/2018 Hospitalization History ovarian tumor removed an d left overy Hospitalization History complete hysterectomy 19 94 [employer] Other 03-12-2020 History general Narrative - Reported* Type Description Date Medical History Stress Test; [facility], normal per patient Medical History Pap and Pelvic 3 yea rs ago, OBGYN in [place] Medical History Mammogram over 5 yea rs; Normal at that time per patient Medical History CT Abdomen and Pelvi s over 5 years ago; [facility] Medical History Colonoscopy 8 years ago; in [place], normal in patient Medical History Chest X-Ray 12-15-11; normal, [facility] Medical History Echocardiogram; 12-15; [facility] Medical History Cardiolite Stress Te st 12-16-11; [facility] Medical History Check's sugar's bid Medical History Heart Catherization; [facility] Medical History breast cancer 04/2014 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 Misha Jamison 05/2014 and 06/2014 Surgical History Colonoscopy, Dr. Soruav carrillo- Needs repeat in 10 years 06-17-15 Surgical History Lithotripsy for a kidney stone Surgical History mammogram [facility] 04/2017 Surgical History vertabrae fusion 08/2018 Hospitalization History ovarian tumor removed an d left overy Hospitalization History complete hysterectomy 19 94 [employer] Other 03-07-2020 History general Narrative - Reported* Type Description Date Medical History Stress Test; [facility], normal per patient Medical History Pap and Pelvic 3 yea rs ago, OBGYN in [place] Medical History Mammogram over 5 yea rs; Normal at that time per patient Medical History CT Abdomen and Pelvi s over 5 years ago; [facility] Medical History Colonoscopy 8 years ago; in [place], normal in patient Medical History Chest X-Ray 12-15-11; normal, [facility] Medical History Echocardiogram; 12-15; [facility] Medical History Cardiolite Stress Te st 12-16-11; [facility] Medical History Check's sugar's bid Medical History Heart Catherization; [facility] Medical History breast cancer 04/2014 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, status post lumpectomy x2, sentinel lymph node biopsy and adjuvant radiotherapy that concluded on 08-21-14 Medical History 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 - Dr French from [facility] Surgical History Tonsillectomy age 21 Surgical History ovarian tumor removed and left ovary Surgical History complete hysterectomy 1993 Surgical History Heart Catherization; [facility] Surgical History Right Shoulder Tear and bone spur removal; [facility] 07-27-12 Surgical History Left Shoulder Rotato r [...] for a kidney stone Surgical History mammogram [facility] 04/2017 Surgical History vertabrae fusion 08/2018 Hospitalization History ovarian tumor removed an d left overy Hospitalization History complete hysterectomy 19 94 [employer] Other 03-04-2020 History general Narrative - Reported* Type Description Date Medical History Stress Test; [facility], normal per patient Medical History Pap and Pelvic 3 yea rs ago, OBGYN in [place] Medical History Mammogram over 5 yea rs; Normal at that time per patient Medical History CT Abdomen and Pelvi s over 5 years ago; [facility] Medical History Colonoscopy 8 years ago; in [place], normal in patient Medical History Chest X-Ray 12-15-11; normal, [facility] Medical History Echocardiogram; 12-15; [facility] Medical History Cardiolite Stress Te st 12-16-11; [facility] Medical History Check's sugar's bid Medical History Heart Catherization; [facility] Medical History breast cancer 04/2014 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, status post lumpectomy x2, sentinel lymph node biopsy and adjuvant radiotherapy that concluded on 08-21-14 Medical History 11/2016 diabetic shif ting in rt eye - Dr French from [facility] Surgical History Tonsillectomy age 21 Surgical History ovarian tumor removed and left ovary Surgical History complete hysterectomy 1993 Surgical History Heart Catherization; [facility] Surgical History Right Shoulder Tear and bone spur removal; [facility] 07-27-12 Surgical History Left Shoulder Rotato r [...] for a kidney stone Surgical History mammogram [facility] 04/2017 Surgical History vertabrae fusion 08/2018 Hospitalization History ovarian tumor removed an d left overy Hospitalization History complete hysterectomy 19 94 [employer] Other 02-22-2020 History general Narrative - Reported* Type Description Date Medical History Stress Test; [facility], normal per patient Medical History Pap and Pelvic 3 yea rs ago, OBGYN in [place] Medical History Mammogram over 5 yea rs; Normal at that time per patient Medical History CT Abdomen and Pelvi s over 5 years ago; [facility] Medical History Colonoscopy 8 years ago; in [place], normal in patient Medical History Chest X-Ray 12-15-11; normal, [facility] Medical History Echocardiogram; 12-15; [facility] Medical History Cardiolite Stress Te st 12-16-11; [facility] Medical History Check's sugar's bid Medical History Heart Catherization; [facility] Medical History breast cancer 04/2014 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, status post lumpectomy x2, sentinel lymph node biopsy and adjuvant radiotherapy that concluded on 08-21-14 Medical History 11/2016 diabetic shif ting in rt eye - Dr French from [facility] Surgical History Tonsillectomy age 21 Surgical History ovarian tumor removed and left ovary Surgical History complete hysterectomy 1993 Surgical History Heart Catherization; [facility] Surgical History Right Shoulder Tear and bone spur removal; [facility] 07-27-12 Surgical History Left Shoulder Rotato r [...] for a kidney stone Surgical History mammogram [facility] 04/2017 Surgical History vertabrae fusion 08/2018 Hospitalization History ovarian tumor removed an d left overy Hospitalization History complete hysterectomy [employer] Other 02-12-2020 History general Narrative - Reported* Type Description Date Medical History Stress Test; [facility], normal per patient Medical History Pap and Pelvic 3 yea rs ago, OBGYN in [place] Medical History Mammogram over 5 yea rs; Normal at that time per patient Medical History CT Abdomen and Pelvi s over 5 years ago; [facility] Medical History Colonoscopy 8 years ago; in [place], normal in patient Medical History Chest X-Ray 12-15-11; normal, [facility] Medical History Echocardiogram; 12-15; [facility] Medical History Cardiolite Stress Te st 12-16-11; [facility] Medical History Check's sugar's bid Medical History Heart Catherization; [facility] Medical History breast cancer 04/2014 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, status post lumpectomy x2, sentinel lymph node biopsy and adjuvant radiotherapy that concluded on 08-21-14 Medical History 11/2016 diabetic shif ting in rt eye - Dr French from [facility] Surgical History Tonsillectomy age 21 Surgical History ovarian tumor removed and left ovary Surgical History complete hysterectomy 1993 Surgical History Heart Catherization; [facility] Surgical History Right Shoulder Tear and bone spur removal; [facility] 07-27-12 Surgical History Left Shoulder Rotato r [...] for a kidney stone Surgical History mammogram [facility] 04/2017 Surgical History vertabrae fusion 08/2018 Hospitalization History ovarian tumor removed an d left overy Hospitalization History complete hysterectomy [employer] Other 10-27-2019 History general Narrative - Reported* Type Description Date Medical History Stress Test; [facility], normal per patient Medical History Pap and Pelvic 3 yea rs ago, OBGYN in [place] Medical History Mammogram over 5 yea rs; Normal at that time per patient Medical History CT Abdomen and Pelvi s over 5 years ago; [facility] Medical History Colonoscopy 8 years ago; in [place], normal in patient Medical History Chest X-Ray 12-15-11; normal, [facility] Medical History Echocardiogram; 12-15; [facility] Medical History Cardiolite Stress Te st 12-16-11; [facility] Medical History Check's sugar's bid Medical History Heart Catherization; [facility] Medical History breast cancer 04/2014 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, status post lumpectomy x2, sentinel lymph node biopsy and adjuvant radiotherapy that concluded on 08-21-14 Medical History 11/2016 diabetic shif ting in rt eye - Dr French from [facility] Surgical History Tonsillectomy age 21 Surgical History ovarian tumor removed and left ovary Surgical History complete hysterectomy 1993 Surgical History Heart Catherization; [facility] Surgical History Right Shoulder Tear and bone spur removal; [facility] 07-27-12 Surgical History Left Shoulder Rotato r [...] for a kidney stone Surgical History mammogram [facility] 04/2017 Surgical History vertabrae fusion 08/2018 Hospitalization History ovarian tumor removed an d left overy Hospitalization History complete hysterectomy 19 94 [employer] Other Evaluation noteNo InformationNort [employer] Other Evaluation noteNo assessment information available [facility] Work Phone: Reason for referral (narrative)* Reason appt pt needs cons ult w/ Dr. Cornejo or Viki for evaluation of right shoulder pain Diagnosis 1 Shoulder pain, right (M25.511) Referral Organization [facility] Referring Provider First Name Rin Referring Provider Last Name Lyn Referring Provider Specialty Family Prac meenu Referred Organization [facility] Referred Address ,[place], [place],[address] Referred Provider Specialty Orthopedic S urgery Referral Priority Routine General Notes Florinda Leonard 02/08/2022 05:31:28 PM > Access Orth[facility] referral form hard faxed with visit note, med list and insurance card. pt understands she will be contacted to schedule this appt. [employer] Other Summary Purpose Family History Relationship Condition Age at Onset Recorded Date/T rob father Pulmonary emphysema Unknown Not Specified Cerebrovascular accident (CVA) Unknown Advance Directives Advance Directive Response Recorded Date/ Time Advance Directives No February 15, 2017 3:18pm Hospital Course Note MR#: [id number] [facility] Pt. Name: Criselda Morfin Admitted: 08/23/2018 Discharged: [...] section and content) DATE CREATED AUTHOR 06/05/2018 [facility] DATE CREATED AUTHOR AUTHOR'S ORGANIZ ATION 12/09/2018 [facility] DATE CREATED AUTHOR AUTHOR'S ORGANIZ ATION 08/31/2022 [facility] DATE CREATED AUTHOR AUTHOR'S ORGANIZ ATION 05/07/2023 [facility] REASON FOR VISIT (unrecogniz ed section [...] BE BASED ON THE PRIMARY CLINICAL RECORDS. [employer] provides no warranty or guarantee of the accuracy or completeness of information in this document.
[2023-10-11 06:52] LABS: Basophils Absolute Auto 0.1 10^3/uL (0.0-0.1); Basophils Percent Auto 1.2 % (0.2-2.0); Eosinophils Absolute Auto 0.4 10^3/uL (0.0-0.7); Eosinophils Percent Auto 3.9 % (0.9-7.0); Hematocrit 33.4 % (36.0-48.0); Hemoglobin 10.8 g/dL (12.0-16.0); Immature Granulocytes Abs Auto 0.02 10^3/uL (0.00-0.03); Immature Granulocytes Pct Auto 0.2 % (0.0-0.5); Lymphocytes Absolute Auto 2.5 10^3/uL (1.2-3.8); Lymphocytes Percent Auto 26.7 % (20.5-60.0); Mean Corpuscular HGB Conc 32.3 g/dL (29.9-35.2); Mean Corpuscular Hemoglobin 29.3 pg (26.7-34.0); Mean Corpuscular Volume 90.8 fL (81.0-99.0); Mean Platelet Volume 9.7 fL (9.5-13.5); Monocytes Absolute Auto 0.8 10^3/uL (0.3-0.8); Monocytes Percent Auto 8.7 % (1.7-12.0); Neutrophils Absolute Auto 5.4 10^3/uL (1.4-6.5); Neutrophils Percent Auto 59.3 % (43.0-75.0); Platelet Count 376 10^3/uL (150-450); Red Blood Count 3.68 10^6/uL (4.20-5.40); Red Cell Distribution Width 13.5 % (11.0-15.0); White Blood Count 9.2 10^3/uL (4.0-11.0)
[2023-10-11 06:59] LABS: Estimated Average Glucose 154 mg/dL
[2023-10-11 07:41] LABS: Alanine Aminotransferase 27 U/L (14-59); Albumin Globulin Ratio 0.9; Albumin Level 3.5 g/dL (3.4-5.0); Alkaline Phosphatase 106 U/L (46-116); Anion Gap 13.9; Aspartate Amino Transferase 20 U/L (15-37); BUN Creatinine Ratio 12.8; Bilirubin Total 0.4 mg/dL (0.2-1.0); Calcium 9.3 mg/dL (8.5-10.1); Carbon Dioxide 25.4 mmol/L (21.0-32.0); Chloride 104 mmol/L (98-107); Chol HDL Ratio 3.1; Cholesterol 160 mg/dL (<=200); Estimated GFR (African America 48 (>=60); Estimated GFR (Non-African Ame 40 (>=60); Globulin 3.7 g/dL; Glucose 139 mg/dL (74-106); HDL Cholesterol 52 mg/dL (40-60); LDL Cholesterol Calculated 80.6 mg/dL; Potassium 4.3 mmol/L (3.5-5.1); Sodium 139 mmol/L (136-145); Thyroid Stimulating Hormone <0.007 uIU/mL (0.358-3.740); Total Protein 7.2 g/dL (6.4-8.2); Triglycerides 137 mg/dL (<=150); VLDL CHOLESTEROL 27.4 mg/dL
== END 2023-10-11 06:35 | disposition home or self-care (01) ==
LOC: LAB 06:34
PROVIDERS: PCP Family Medicine; Visit Provider Family Medicine
DX: E87.6 Hypokalemia (principal); E78.5 Hyperlipidemia, unspecified; E53.8 Deficiency of other specified B group vitamins; E11.9 Type 2 diabetes mellitus without complications; R63.5 Abnormal weight gain; R35.1 Nocturia
CPT/HCPCS: 36415; 80053; 80061; 82607; 82746; 83036; 84443; 85025

== ENCOUNTER 2023-10-17 12:30 | Outpatient (OUT) | payer OTHER, SELFPAY ==
--- OUTSIDE RECORDS SUMMARY | 2023-10-17 12:45 | XMS_ITS | CCD ---
Author Organization 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 Name Role Phone Selin Jean Attending Unavailable Ted, Selin Pastor Attending Unavailable CHUCHO HONEYCUTT Attending Unavailable Ted, Selin Pastor Attending Unavailable UNKNOWN, PROVIDER Admitting Unavailable SELF, REFERRED Referring Unavailable SELF, REFERRED Primary Care Unavailable CHIP CEDILLO Attending Unavailable AR Procedure Practitioner Unavailab le UNKNOWN, PROVIDER Surgeon [...] Unavailable Lyn, DO Gar Primary Care Provider [phone] DO Rin Nicholson Attending Provider Rin Nicholson [...] 1 tablet by mouth once daily Vitamin J28-Mvctu Acid Active 1 TAB PO Daily May [...] kidney disease Other aftercare (1 source) Other skilled nursing (current) drug therapy; 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: [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 CURRENT DRUG THERAPY] Onset: 05-03-2022 Episodic Other aftercare (1 source) longterm (current) use of oral hypoglycemic drugs; 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: [RETIREMENT USE ORAL HYPOGLYCEMIC DX] Onset: 05-03-2022 Episodic Pneumonia (except that caused by tuberculosis or sexually transmitted disease) (1 source) Bronchopneumonia, unspecified organism; 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: [BRONCHOPNEUMONIA UNS ORGANISM] Onset: 05-03-2022 Episodic Unclassified (1 source) COUGH, UNSPECIFIED; 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: [COUGH, UNSPECIFIED] Onset: 04-30-2022 Results Test Name Value Interpretation Reference Range Facility MM screening mammo BI w/CADo n 05-03-2023 MM screening mammo BI w/CAD [facility] [address] [place] [address] Mammography Report Signed Patient: Leslee Morfin MR#: [id number] : 1955 Acct:[id number] Age/Sex: 67 / F ADM Date: 05/03/23 Loc: [place] Room: Type: [facility] Attending Dr: Rin Nichoslon DO Copies to: Rin Nicholson DO Ordering [...] Carmela Cuevas M.D.05/03/2023 1:52 PM Dictation Location: [facility] Transcribed By: [facility] 05/03/23 1352 Dictated By: Carmela Cuevas MD 05/03/23 1349 Signed By: 05/03/23 1352 [facility] PROF CHEM 8 (BAS METB)on Anion gap [Moles/Vol] 14.4 mmol/L Normal [facility] Comment on above: Performed By: #### B MP #### [facility] [address] [place] [address] Dr. Raf Pearl Calcium [Mass/Vol] 9.3 mg/dL Normal 8.5-10.1 [facility] Comment on above: Performed By: #### B MP #### [facility] [address] [address] [address] Raf Pearl Chloride [Moles/Vol] 102 mmol/L Normal 98-107 [facility] Comment on above: Performed By: #### B MP #### [facility] [address] [address] [address] Raf Pearl CO2 [Moles/Vol] 26.9 mmol/L Normal 21.0-32.0 [facility] Comment on above: Performed By: #### B MP #### [facility] [address] [address] [address] Raf Pearl Creatinine [Mass/Vol] 1.32 mg/dL Critically high 0.55-1.02 [facility] Comment on above: Performed By: #### B MP #### [facility] [address] [place] [address] Dr. Raf Pearl EGFR-AF ANDORRAN 49 mL/min/1.73m2 Critically low >=60 [facility] Comment on above: Performed By: #### B MP #### [facility] [address] [place] [address] Dr. Raf Pearl EGFR-NON AF ANDORRAN 40 mL/min/1.73m2 Critically low >=60 [facility] Comment on above: Performed By: #### B MP #### [facility] [address] [address] [address] Raf Pearl Glucose [Mass/Vol] 151 mg/dL Critically high 74-106 T [facility] Comment on above: Performed By: #### B MP #### [facility] [address] [address] [address] Raf Pearl Potassium [Moles/Vol] 4.3 mmol/L Normal 3.5-5.1 [facility] Comment on above: Performed By: #### B MP #### [facility] [address] [address] [address] Raf Pearl Sodium [Moles/Vol] 139 mmol/L Normal 136-145 [facility] Comment on above: Performed By: #### B MP #### [facility] [address] [address] [address] Raf Pearl Urea nitrogen [Mass/Vol] 17.0 mg/dL Normal 7.0-18.0 [facility] Comment on above: Performed By: #### B MP #### [facility] [address] [address] [address] Raf Pearl Urea nitrogen/Creatinine [Mass ratio] 12.9 mg/mg Normal [facility] Comment on above: Performed By: #### B MP #### [facility] [address] [address] [address] Raf Pearl PROF CHEM 8 (BAS METB)on Anion gap [Moles/Vol] 9.7 mmol/L Normal [facility] Comment on above: Performed By: #### B MP #### [facility] [address] [address] [address] Raf Pearl Calcium [Mass/Vol] 9.1 mg/dL Normal 8.5-10.1 [facility] Comment on above: Performed By: #### B MP #### [facility] [address] [address] [address] Raf Pearl Chloride [Moles/Vol] 100 mmol/L Normal 98-107 [facility] Comment on above: Performed By: #### B MP #### [facility] [address] [address] [address] Raf Pearl CO2 [Moles/Vol] 28.0 mmol/L Normal 21.0-32.0 [facility] Comment on above: Performed By: #### B MP #### [facility] [address] [address] [address] Raf Pearl Creatinine [Mass/Vol] 1.18 mg/dL Critically high 0.55-1.02 [facility] Comment on above: Performed By: #### B MP #### [facility] [address] [place] [address] Dr. Raf Pearl EGFR-AF ANDORRAN 56 mL/min/1.73m2 Critically low >=60 [facility] Comment on above: Performed By: #### B MP #### [facility] [address] [place] [address] Dr. Raf Pearl EGFR-NON AF ANDORRAN 46 mL/min/1.73m2 Critically low >=60 [facility] Comment on above: Performed By: #### B MP #### [facility] [address] [place] [address] Dr. Raf Pearl Glucose [Mass/Vol] 113 mg/dL Critically high 74-106 T [facility] Comment on above: Performed By: #### B MP #### [facility] [address] [address] [address] Raf Pearl Potassium [Moles/Vol] 3.7 mmol/L Normal 3.5-5.1 [facility] Comment on above: Performed By: #### B MP #### [facility] [address] [place] [address] Dr. Raf Pearl Sodium [Moles/Vol] 134 mmol/L Critically low 136-[address] [facility] Comment on above: Performed By: #### B MP #### [facility] [address] [place] [address] Dr. Raf Pearl Urea nitrogen [Mass/Vol] 13.0 mg/dL Normal 7.0-18.0 [facility] Comment on above: Performed By: #### B MP #### [facility] [address] [place] [address] Dr. Raf Pearl Urea nitrogen/Creatinine [Mass ratio] 11.0 mg/mg Normal [facility] Comment on above: Performed By: #### B MP #### [facility] [address] [place] [address] Dr. Raf Pearl FOLATE ([facility])on 3 Folate >20.0 Normal >3.0 [facility] Comment on above: Result Comment: A se rum folate concentration of less than 3.1 ng/mL is considered to represent clinical deficiency. Performed By: #### F OLALC #### [facility] [address] [place] [address] Dr. Raf Pearl CBC AUTO DIFFon 07-31-2022 BASO # 0.1 103/ul Normal 0.0-0.1 [facility] Comment on above: Performed By: #### M ALBR #### [facility] [address] [place] [address] Dr. Raf Pearl Basophils/100 WBC (Bld) 1.3 % Normal 0.2-2.0 [facility] Comment on above: Performed By: #### M ALBR #### [facility] [address] [place] [address] Dr. Raf Pearl EO # 0.4 103/ul Normal 0.0-0.7 [facility] Comment on above: Performed By: #### M ALBR #### [facility] [address] [place] [address] Dr. Raf Pearl Eosinophils/100 WBC (Bld) 4.5 % Normal 0.9-7.0 [facility] Comment on above: Performed By: #### M ALBR #### [facility] [address] [place] [address] Dr. Raf Pearl Erythrocyte distribution width (RBC) [Ratio] 13.2 % Normal 11.0-15.0 [facility] Comment on above: Performed By: #### M ALBR #### [facility] [address] [place] [address] Dr. Raf Pearl Hematocrit (Bld) [Volume fraction] 33.8 % Critically low 36.0-48.0 [facility] Comment on above: Performed By: #### M ALBR #### [facility] [address] [place] [address] Dr. Raf Pearl Hemoglobin (Bld) [Mass/Vol] 11.5 g/dL Critically low 12.0-16.0 [facility] Comment on above: Performed By: #### M ALBR #### [facility] [address] [place] [address] Dr. Raf Pearl IG # 0.02 10e3/ul Normal 0.00-0.03 [facility] Comment on above: Performed By: #### M ALBR #### [facility] [address] [place] [address] Dr. Raf Pearl IG % 0.2 % Normal 0.0-0.5 [facility] Comment on above: Performed By: #### M ALBR #### [facility] [address] [place] [address] Dr. Raf Pearl LYMPH # 2.6 103/ul Normal 1.2-3.8 [facility] Comment on above: Performed By: #### M ALBR #### [facility] [address] [place] [address] Dr. Raf Pearl Lymphocytes/100 WBC (Bld) 31.6 % Normal 20.5-60.0 [facility] Comment on above: Performed By: #### M ALBR #### [facility] [address] [place] [address] Dr. Raf Pearl MANUAL DIFF REQ NO Normal [facility] Comment on above: Performed By: #### M ALBR #### [facility] [address] [place] [address] Dr. Raf Pearl MCH (RBC) [Entitic mass] 31.1 pg Normal 26.7-34.0 [facility] Comment on above: Performed By: #### M ALBR #### [facility] [address] [address] [address] Raf Pearl MCHC (RBC) [Mass/Vol] 34.0 g/dL Normal 29.9-35.2 [facility] Comment on above: Performed By: #### M ALBR #### [facility] [address] [place] [address] Dr. Raf Pearl MCV (RBC) [Entitic vol] 91.4 fL Normal 81.0-99.0 [facility] Comment on above: Performed By: #### M ALBR #### [facility] [address] [place] [address] Dr. Raf Pearl MONO # 0.6 103/ul Normal 0.3-0.8 [facility] Comment on above: Performed By: #### M ALBR #### [facility] [address] [place] [address] Dr. Raf Pearl Monocytes/100 WBC (Bld) 7.2 % Normal 1.7-12.0 [facility] Comment on above: Performed By: #### M ALBR #### [facility] [address] [place] [address] Dr. Raf Pearl NEUT # 4.6 103/ul Normal 1.4-6.5 [facility] Comment on above: Performed By: #### M ALBR #### [facility] [address] [place] [address] Dr. Raf Pearl Neutrophils/100 WBC (Bld) 55.2 % Normal 43.0-75.0 [facility] Comment on above: Performed By: #### M ALBR #### [facility] [address] [place] [address] Dr. Raf Pearl Platelet mean volume (Bld) [Entitic vol] 10.0 fL Normal 9.5-13.5 [facility] Comment on above: Performed By: #### M ALBR #### [facility] [address] [place] [address] Dr. Raf Pearl PLT 352 103/ul Normal 150-450 [facility] Comment on above: Performed By: #### M ALBR #### [facility] [address] [address] [address] Raf Pearl RBC 3.70 106/ul Critically low 4.20-5.40 [facility] Comment on above: Performed By: #### M ALBR #### [facility] [address] [address] [address] Raf Pearl WBC 8.2 103/ul Normal 4.0-11.0 [facility] Comment on above: Performed By: #### M ALBR #### [facility] [address] [address] [address] Raf Pearl CULTURE URINEon 07-31-2022 CULTURE URINE Culture Observations: NO GROWTH. Normal [facility] Comment on above: Performed By: #### B MP #### [facility] [address] [place] [address] Dr. Raf Pearl GLYCOHEMOGLOBIN A1Con 2022 ADA RECOMMENDATION SEE BELOW Normal [facility] Comment on above: Result Comment: ADA RECOMMENDED LIMIT 4.0 - 6.0 ADA THERAPEUTIC TARGET < 7.0 ACTION SUGGESTED > 7.0 Performed By: #### B MP #### [facility] [address] [place] [address] Dr. Raf Pearl Glucose [Mass/Vol] 140 mg/dL Normal [facility] Comment on above: Performed By: #### B MP #### [facility] [address] [place] [address] Dr. Raf Pearl HbA1c (Bld) [Mass fraction] 6.5 % Critically high 4.5-6.2 [facility] Comment on above: Performed By: #### B MP #### [facility] [address] [place] [address] Dr. Raf Pearl LIPID PROFILEon 07-31-2022 CHOL-HDL RATIO NORM SEE BELOW Normal [facility] Comment on above: Result Comment: 3.3 - 4.4 LOW RISK 4.4 - 7.1 AVERAGE RISK 7.1 - 11.0 MODERATE RISK >11.0 HIGH RISK Performed By: #### C MP, LIPID, TSH #### [facility] [address] [address] [address] Raf Pearl Cholesterol [Mass/Vol] 166 mg/dL Normal <=200 [facility] Comment on above: Performed By: #### C MP, LIPID, TSH #### [facility] [address] [address] [address] Raf Pearl Cholesterol in HDL [Mass/Vol] 57 mg/dL Normal 40-60 [facility] Comment on above: Performed By: #### C MP, LIPID, TSH #### [facility] [address] [address] [address] Raf Pearl Cholesterol in LDL [Mass/Vol] 91.4 mg/dL Normal [facility] Comment on above: Performed By: #### C MP, LIPID, TSH #### [facility] [address] [address] [address] Raf Pearl Cholesterol.total/Ch olesterol in HDL [Mass ratio] 2.9 {ratio} Normal [facility] Comment on above: Performed By: #### C MP, LIPID, TSH #### [facility] [address] [address] [address] Raf Pearl HDL NORMAL > or = 60 mg/dl - LOW CARDIOVASCULAR RISK <40 mg/dl - HIGH CARDIOVASCULAR RISK Normal [facility] Comment on above: Performed By: #### C MP, LIPID, TSH #### [facility] [address] [address] [address] Raf Pearl LDL CALC NORMAL SEE BELOW Normal [facility] Comment on above: Result Comment: <100 mg/dl OPTIMAL 100 - 129 mg/dl NEAR OR ABOVE OPTIMAL 130 - 159 mg/dl BORDERLINE HIGH 160 - 189 mg/dl HIGH >190 mg/dl VERY HIGH Performed By: #### C MP, LIPID, TSH #### [facility] [address] [address] [address] Raf Pearl Triglyceride [Mass/Vol] 88 mg/dL Normal <=150 [facility] Comment on above: Performed By: #### C MP, LIPID, TSH #### [facility] [address] [address] [address] Raf Pearl VLDL CALC 17.6 mg/dL Normal [facility] Comment on above: Performed By: #### C MP, LIPID, TSH #### [facility] [address] [place] [address] Dr. Raf Pearl MICROALBUMIN, RAND URon 07-17 mALB <1.3 Normal <=30.0 [facility] Comment on above: Performed By: #### M ALBR #### [facility] [address] [address] [address] Raf Pearl PROF 14(COMP METB)on 023 Albumin [Mass/Vol] 3.6 g/dL Normal 3.4-5.0 [facility] Comment on above: Performed By: #### C MP, LIPID, TSH #### [facility] [address] [place] [address] Dr. Raf Peral Albumin/Globulin [Mass ratio] 1.0 {ratio} Normal [facility] Comment on above: Performed By: #### C MP, LIPID, TSH #### [facility] [address] [place] [address] Dr. Raf Pearl ALP [Catalytic activity/Vol] 70 U/L Normal 46-116 [facility] Comment on above: Performed By: #### C MP, LIPID, TSH #### [facility] [address] [place] [address] Dr. Raf Pearl ALT [Catalytic activity/Vol] 22 U/L Normal 14-59 [facility] Comment on above: Performed By: #### C MP, LIPID, TSH #### [facility] [address] [place] [address] Dr. Raf Pearl Anion gap [Moles/Vol] 11.8 mmol/L Normal [facility] Comment on above: Performed By: #### C MP, LIPID, TSH #### [facility] [address] [place] [address] Dr. Raf Pearl AST [Catalytic activity/Vol] 19 U/L Normal 15-37 [facility] Comment on above: Performed By: #### C MP, LIPID, TSH #### [facility] [address] [address] [address] Raf Pearl Bilirubin [Mass/Vol] 0.3 mg/dL Normal 0.2-1.0 [facility] Comment on above: Performed By: #### C MP, LIPID, TSH #### [facility] [address] [address] [address] Raf Pearl Calcium [Mass/Vol] 9.0 mg/dL Normal 8.5-10.1 [facility] Comment on above: Performed By: #### C MP, LIPID, TSH #### [facility] [address] [address] [address] Raf Pearl Chloride [Moles/Vol] 104 mmol/L Normal 98-107 [facility] Comment on above: Performed By: #### C MP, LIPID, TSH #### [facility] [address] [place] [address] Dr. Raf Pearl CO2 [Moles/Vol] 28.6 mmol/L Normal 21.0-32.0 [facility] Comment on above: Performed By: #### C MP, LIPID, TSH #### [facility] [address] [address] [address] Raf Pearl Creatinine [Mass/Vol] 1.48 mg/dL Critically high 0.55-1.02 [facility] Comment on above: Performed By: #### C MP, LIPID, TSH #### [facility] [address] [address] [address] Raf Pearl EGFR-AF ANDORRAN 43 mL/min/1.73m2 Critically low >=60 [facility] Comment on above: Performed By: #### C MP, LIPID, TSH #### [facility] [address] [address] [address] Raf Pearl EGFR-NON AF ANDORRAN 35 mL/min/1.73m2 Critically low >=60 [facility] Comment on above: Performed By: #### C MP, LIPID, TSH #### [facility] [address] [address] [address] Raf Pearl Globulin (S) [Mass/Vol] 3.5 g/dL Normal [facility] Comment on above: Performed By: #### C MP, LIPID, TSH #### [facility] [address] [address] [address] Raf Pearl Glucose [Mass/Vol] 102 mg/dL Normal 74-106 [facility] Comment on above: Performed By: #### C MP, LIPID, TSH #### [facility] [address] [place] [address] Dr. Raf Pearl Potassium [Moles/Vol] 4.4 mmol/L Normal 3.5-5.1 [facility] Comment on above: Performed By: #### C MP, LIPID, TSH #### [facility] [address] [place] [address] Dr. Raf Pearl Protein [Mass/Vol] 7.1 g/dL Normal 6.4-8.2 [facility] Comment on above: Performed By: #### C MP, LIPID, TSH #### [facility] [address] [place] [address] Dr. Raf Pearl Sodium [Moles/Vol] 140 mmol/L Normal 136-145 [facility] Comment on above: Performed By: #### C MP, LIPID, TSH #### [facility] [address] [place] [address] Dr. Raf Pearl Urea nitrogen [Mass/Vol] 21.0 mg/dL Critically high 7.0-18.0 [facility] Comment on above: Performed By: #### C MP, LIPID, TSH #### [facility] [address] [place] [address] Dr. Raf Pearl Urea nitrogen/Creatinine [Mass ratio] 14.2 mg/mg Normal [facility] Comment on above: Performed By: #### C MP, LIPID, TSH #### [facility] [address] [place] [address] Dr. Raf Pearl TSHon 07-31-2022 TSH 2.298 uIU/mL Normal 0.358-3.740 [facility] Comment on above: Performed By: #### C MP, LIPID, TSH #### [facility] [address] [place] [address] Dr. Raf Pearl UA RANDOM W/MICROSCOPICon BACTERIA NONE SEEN Normal NONE SEEN [facility] Comment on above: Performed By: #### B MP #### [facility] [address] [place] [address] Dr. Raf Pearl Bilirubin Ql (U) Negative Normal NEGATIVE [facility] Comment on above: Performed By: #### B MP #### [facility] [address] [place] [address] Dr. Raf Pearl CAST NONE SEEN Normal NONE SEEN [facility] Comment on above: Performed By: #### B MP #### [facility] [address] [place] [address] Dr. Rfa Pearl Clarity (U) CLEAR Normal CLEAR [facility] Comment on above: Performed By: #### B MP #### [facility] [address] [place] [address] Dr. Raf Pearl Color (U) LT. YELLOW Normal YELLOW [facility] Comment on above: Performed By: #### B MP #### [facility] [address] [place] [address] Dr. Raf Pearl Crystals LM Nom (Urine sed) NONE SEEN Normal NONE SEEN [facility] Comment on above: Performed By: #### B MP #### [facility] [address] [place] [address] Dr. Raf Pearl Epithelial cells LM Ql (Urine sed) NONE SEEN Normal NONE SEEN /RARE [facility] Comment on above: Performed By: #### B MP #### [facility] [address] [place] [address] Dr. Raf Pearl Glucose Ql (U) Negative Normal NEGATIVE [facility] Comment on above: Performed By: #### B MP #### [facility] [address] [place] [address] Dr. Raf Pearl Hemoglobin Ql (U) Negative Normal NEGATIVE [facility] Comment on above: Performed By: #### B MP #### [facility] [address] [place] [address] Dr. Raf Pearl Ketones Ql (U) Negative Normal NEGATIVE [facility] Comment on above: Performed By: #### B MP #### [facility] [address] [place] [address] Dr. Raf Pearl LEUKOCYTES Negative Normal NEGATIVE [facility] Comment on above: Performed By: #### B MP #### [facility] [address] [place] [address] Dr. Raf Pearl MUCOUS NONE SEEN Normal NONE SEEN [facility] Comment on above: Performed By: #### B MP #### [facility] [address] [place] [address] Dr. Raf Pearl Nitrite Ql (U) Negative Normal NEGATIVE [facility] Comment on above: Performed By: #### B MP #### [facility] [address] [place] [address] Dr. Raf Pearl pH (U) 7.0 [pH] Normal 5-9 [facility] Comment on above: Performed By: #### B MP #### [facility] [address] [place] [address] Dr. Raf Pearl RBC 0-2 Normal 0-2 [facility] Comment on above: Performed By: #### B MP #### [facility] [address] [place] [address] Dr. Raf Pearl SPEC GRAVITY <=1.005 Abnormal 1.005-<=1.025 [facility] Comment on above: Performed By: #### B MP #### [facility] [address] [place] [address] Dr. Raf Pearl UA PROTEIN Negative Normal NEGATIVE/ TRACE [facility] Comment on above: Performed By: #### B MP #### [facility] [address] [place] [address] Dr. Raf Pearl Urobilinogen Qn (U) 0.2 {Tawana'U}/dL Normal 0.2 - 1. 0 [facility] Comment on above: Performed By: #### B MP #### [facility] [address] [place] [address] Dr. Raf Pearl WBC NONE SEEN Normal NONE SEEN [facility] Comment on above: Performed By: #### B MP #### [facility] [address] [address] [address] Raf Pearl VITAMIN B12on 07-31-2022 Cobalamin (Vitamin B12) [Mass/Vol] 600.0 pg/mL Normal 193.0-986.0 [facility] Comment on above: Performed By: #### B MP #### [facility] [address] [address] [address] Raf Paerl Covid-19 PCR ([facility])on 04-18 SARS-CoV-2 (COVID-19) RNA KHANH+probe Ql (Unsp spec) Not detected Normal NOT DETECTED [facility] Comment on above: Result Comment: When diagnostic [...] for this test is supported by the Lead Javascript Developer of Health and Human Service's declaration that [...] used). Performed By: #### C VDTBH #### [facility] [address] [place] [address] Dr. Raf Pearl INFLUENZA A AND B AGon 04-30 INFLUANEGH SEE BELOW Normal [facility] Comment on above: Result Comment: Nega tive for Flu A protein angiten. Infection due to Flu A cannot be ruled out. Flu A angiten in the sample may be below the detection limit of the test. Performed By: #### B MP #### [facility] [address] [address] [address] Raf Pearl INFLUBNEGH SEE BELOW Normal [facility] Comment on above: Result Comment: Nega tive for Flu B protein antigen. Infection due to Flu B cannot be ruled out. Flu B antigen in the sample may be below the detection limit of the test. Performed By: #### B MP #### [facility] [address] [place] [address] Dr. Raf Pearl INFLUENZA A AG Negative Normal NEGATIVE SEE COMMENT [facility] Comment on above: Performed By: #### B MP #### [facility] [address] [place] [address] Dr. Raf Pearl INFLUENZA B AG Negative Normal NEGATIVE SEE COMMENT [facility] Comment on above: Performed By: #### B MP #### [facility] [address] [place] [address] Dr. Raf Pearl XR CHEST 2 Von [...] BUDDY LEMOS Date: 2022-04-30 19:38 Normal [facility] PROF CHEM 8 (BAS METB)on Anion gap [Moles/Vol] 12.6 mmol/L Normal [facility] Comment on above: Performed By: #### B MP #### [facility] [address] [place] [address] Dr. Raf Pearl Calcium [Mass/Vol] 9.4 mg/dL Normal 8.5-10.1 [facility] Comment on above: Performed By: #### B MP #### [facility] [address] [place] [address] Dr. Raf Pearl Chloride [Moles/Vol] 99 mmol/L Normal 98-107 [facility] Comment on above: Performed By: #### B MP #### [facility] [address] [place] [address] Dr. Raf Pearl CO2 [Moles/Vol] 29.3 mmol/L Normal 21.0-32.0 [facility] Comment on above: Performed By: #### B MP #### [facility] [address] [address] [address] Raf Pearl Creatinine [Mass/Vol] 1.15 mg/dL Critically high 0.55-1.02 [facility] Comment on above: Performed By: #### B MP #### [facility] [address] [address] [address] Raf Pearl EGFR-AF ANDORRAN 57 mL/min/1.73m2 Critically low >=60 [facility] Comment on above: Performed By: #### B MP #### [facility] [address] [address] [address] Raf Pearl EGFR-NON AF ANDORRAN 47 mL/min/1.73m2 Critically low >=60 [facility] Comment on above: Performed By: #### B MP #### [facility] [address] [address] [address] Raf Pearl Glucose [Mass/Vol] 146 mg/dL Critically high 74-106 T [facility] Comment on above: Performed By: #### B MP #### [facility] [address] [address] [address] Raf Pearl Potassium [Moles/Vol] 3.9 mmol/L Normal 3.5-5.1 [facility] Comment on above: Performed By: #### B MP #### [facility] [address] [address] [address] Raf Pearl Sodium [Moles/Vol] 137 mmol/L Normal 136-145 [facility] Comment on above: Performed By: #### B MP #### [facility] [address] [address] [address] Raf Pearl Urea nitrogen [Mass/Vol] 10.0 mg/dL Normal 7.0-18.0 [facility] Comment on above: Performed By: #### B MP #### [facility] [address] [address] [address] Raf Pearl Urea nitrogen/Creatinine [Mass ratio] 8.7 mg/mg Normal [facility] Comment on above: Performed By: #### B MP #### [facility] [address] [place] [address] Dr. Raf Pearl CBC AUTO DIFFon 01-22-2022 BASO # 0.1 103/ul Normal 0.0-0.1 [facility] Comment on above: Performed By: #### B MP #### [facility] [address] [place] [address] Dr. Raf Pearl Basophils/100 WBC (Bld) 1.5 % Normal 0.2-2.0 [facility] Comment on above: Performed By: #### B MP #### [facility] [address] [place] [address] Dr. Raf Pearl EO # 0.3 103/ul Normal 0.0-0.7 [facility] Comment on above: Performed By: #### B MP #### [facility] [address] [place] [address] Dr. Raf Pearl Eosinophils/100 WBC (Bld) 5.3 % Normal 0.9-7.0 [facility] Comment on above: Performed By: #### B MP #### [facility] [address] [place] [address] Dr. Raf Pearl Erythrocyte distribution width (RBC) [Ratio] 13.1 % Normal 11.0-15.0 [facility] Comment on above: Performed By: #### B MP #### [facility] [address] [place] [address] Dr. Raf Pearl Hematocrit (Bld) [Volume fraction] 36.4 % Normal 36.0-48.0 [facility] Comment on above: Performed By: #### B MP #### [facility] [address] [place] [address] Dr. Raf Pearl Hemoglobin (Bld) [Mass/Vol] 12.4 g/dL Normal 12.0-16.0 [facility] Comment on above: Performed By: #### B MP #### [facility] [address] [place] [address] Dr. Raf Pearl IG # 0.02 10e3/ul Normal 0.00-0.03 [facility] Comment on above: Performed By: #### B MP #### [facility] [address] [place] [address] Dr. Raf Pearl IG % 0.3 % Normal 0.0-0.5 [facility] Comment on above: Performed By: #### B MP #### [facility] [address] [address] [address] Raf Pearl LYMPH # 2.0 103/ul Normal 1.2-3.8 [facility] Comment on above: Performed By: #### B MP #### [facility] [address] [place] [address] Dr. Raf Pearl Lymphocytes/100 WBC (Bld) 31.6 % Normal 20.5-60.0 [facility] Comment on above: Performed By: #### B MP #### [facility] [address] [place] [address] Dr. Raf Pearl MANUAL DIFF REQ NO Normal [facility] Comment on above: Performed By: #### B MP #### [facility] [address] [place] [address] Dr. Raf Pearl MCH (RBC) [Entitic mass] 31.4 pg Normal 26.7-34.0 [facility] Comment on above: Performed By: #### B MP #### [facility] [address] [place] [address] Dr. Raf Pearl MCHC (RBC) [Mass/Vol] 34.1 g/dL Normal 29.9-35.2 [facility] Comment on above: Performed By: #### B MP #### [facility] [address] [place] [address] Dr. Raf Pearl MCV (RBC) [Entitic vol] 92.2 fL Normal 81.0-99.0 [facility] Comment on above: Performed By: #### B MP #### [facility] [address] [place] [address] Dr. Raf Pearl MONO # 0.4 103/ul Normal 0.3-0.8 [facility] Comment on above: Performed By: #### B MP #### [facility] [address] [place] [address] Dr. Raf Pearl Monocytes/100 WBC (Bld) 6.8 % Normal 1.7-12.0 [facility] Comment on above: Performed By: #### B MP #### [facility] [address] [place] [address] Dr. Raf Pearl NEUT # 3.4 103/ul Normal 1.4-6.5 [facility] Comment on above: Performed By: #### B MP #### [facility] [address] [place] [address] Dr. Raf Pearl Neutrophils/100 WBC (Bld) 54.5 % Normal 43.0-75.0 [facility] Comment on above: Performed By: #### B MP #### [facility] [address] [place] [address] Dr. Raf Pearl Platelet mean volume (Bld) [Entitic vol] 9.7 fL Normal 9.5-13.5 [facility] Comment on above: Performed By: #### B MP #### [facility] [address] [place] [address] Dr. Raf Pearl PLT 384 103/ul Normal 150-450 [facility] Comment on above: Performed By: #### B MP #### [facility] [address] [place] [address] Dr. Raf Pearl RBC 3.95 106/ul Critically low 4.20-5.40 [facility] Comment on above: Performed By: #### B MP #### [facility] [address] [place] [address] Dr. Raf Pearl WBC 6.2 103/ul Normal 4.0-11.0 [facility] Comment on above: Performed By: #### B MP #### [facility] [address] [place] [address] Dr. Raf Pearl GLYCOHEMOGLOBIN A1Con 2021 ADA RECOMMENDATION SEE BELOW Normal [facility] Comment on above: Result Comment: ADA RECOMMENDED LIMIT 4.0 - 6.0 ADA THERAPEUTIC TARGET < 7.0 ACTION SUGGESTED > 7.0 Performed By: #### A 1C #### [facility] [address] [place] [address] Dr. Raf Pearl Glucose [Mass/Vol] 137 mg/dL Normal [facility] Comment on above: Performed By: #### A 1C #### [facility] [address] [place] [address] Dr. Raf Pearl HbA1c (Bld) [Mass fraction] 6.4 % Critically high 4.5-6.2 [facility] Comment on above: Performed By: #### A 1C #### [facility] [address] [place] [address] Dr. Raf Pearl LIPID PROFILEon 01-22-2022 CHOL-HDL RATIO NORM SEE BELOW Normal [facility] Comment on above: Result Comment: 3.3 - 4.4 LOW RISK 4.4 - 7.1 AVERAGE RISK 7.1 - 11.0 MODERATE RISK >11.0 HIGH RISK Performed By: #### B MP #### [facility] [address] [place] [address] Dr. Raf Pearl Cholesterol [Mass/Vol] 165 mg/dL Normal <=200 [facility] Comment on above: Performed By: #### B MP #### [facility] [address] [place] [address] Dr. Raf Pearl Cholesterol in HDL [Mass/Vol] 66 mg/dL Critically high 40-60 [facility] Comment on above: Performed By: #### B MP #### [facility] [address] [place] [address] Dr. Raf Pearl Cholesterol in LDL [Mass/Vol] 87.8 mg/dL Normal [facility] Comment on above: Performed By: #### B MP #### [facility] [address] [place] [address] Dr. Raf Pearl Cholesterol.total/Ch olesterol in HDL [Mass ratio] 2.5 {ratio} Normal [facility] Comment on above: Performed By: #### B MP #### [facility] [address] [address] [address] Raf Pearl HDL NORMAL > or = 60 mg/dl - LOW CARDIOVASCULAR RISK <40 mg/dl - HIGH CARDIOVASCULAR RISK Normal [facility] Comment on above: Performed By: #### B MP #### [facility] [address] [address] [address] Raf Pearl LDL CALC NORMAL SEE BELOW Normal [facility] Comment on above: Result Comment: <100 mg/dl OPTIMAL 100 - 129 mg/dl NEAR OR ABOVE OPTIMAL 130 - 159 mg/dl BORDERLINE HIGH 160 - 189 mg/dl HIGH >190 mg/dl VERY HIGH Performed By: #### B MP #### [facility] [address] [address] [address] Raf Pearl Triglyceride [Mass/Vol] 56 mg/dL Normal <=150 [facility] Comment on above: Performed By: #### B MP #### [facility] [address] [place] [address] Dr. Raf Pearl VLDL CALC 11.2 mg/dL Normal [facility] Comment on above: Performed By: #### B MP #### [facility] [address] [address] [address] Raf Pearl PROF 14(COMP METB)on 022 Albumin [Mass/Vol] 4.0 g/dL Normal 3.4-5.0 [facility] Comment on above: Performed By: #### B MP #### [facility] [address] [place] [address] Dr. Raf Pearl Albumin/Globulin [Mass ratio] 1.1 {ratio} Normal [facility] Comment on above: Performed By: #### B MP #### [facility] [address] [address] [address] Raf Pearl ALP [Catalytic activity/Vol] 81 U/L Normal 46-116 [facility] Comment on above: Performed By: #### B MP #### [facility] [address] [place] [address] Dr. Raf Pearl ALT [Catalytic activity/Vol] 26 U/L Normal 14-59 [facility] Comment on above: Performed By: #### B MP #### [facility] [address] [address] [address] Raf Pearl Anion gap [Moles/Vol] 12.1 mmol/L Normal [facility] Comment on above: Performed By: #### B MP #### [facility] [address] [address] [address] Raf Paerl AST [Catalytic activity/Vol] 16 U/L Normal 15-37 [facility] Comment on above: Performed By: #### B MP #### [facility] [address] [address] [address] Raf Pearl Bilirubin [Mass/Vol] 0.3 mg/dL Normal 0.2-1.0 [facility] Comment on above: Performed By: #### B MP #### [facility] [address] [address] [address] Rfa Pearl Calcium [Mass/Vol] 9.2 mg/dL Normal 8.5-10.1 [facility] Comment on above: Performed By: #### B MP #### [facility] [address] [address] [address] Raf Pearl Chloride [Moles/Vol] 103 mmol/L Normal 98-107 [facility] Comment on above: Performed By: #### B MP #### [facility] [address] [address] [address] Raf Pearl CO2 [Moles/Vol] 26.9 mmol/L Normal 21.0-32.0 [facility] Comment on above: Performed By: #### B MP #### [facility] [address] [address] [address] Raf Pearl Creatinine [Mass/Vol] 1.17 mg/dL Critically high 0.55-1.02 [facility] Comment on above: Performed By: #### B MP #### [facility] [address] [address] [address] Raf Pearl EGFR-AF ANDORRAN 56 mL/min/1.73m2 Critically low >=60 [facility] Comment on above: Performed By: #### B MP #### [facility] [address] [address] [address] Raf Pearl EGFR-NON AF ANDORRAN 46 mL/min/1.73m2 Critically low >=60 [facility] Comment on above: Performed By: #### B MP #### [facility] [address] [address] [address] Raf Pearl Globulin (S) [Mass/Vol] 3.6 g/dL Normal [facility] Comment on above: Performed By: #### B MP #### [facility] [address] [address] [address] Raf Pearl Glucose [Mass/Vol] 141 mg/dL Critically high 74-106 T [facility] Comment on above: Performed By: #### B MP #### [facility] [address] [address] [address] Raf Pearl Potassium [Moles/Vol] 4.0 mmol/L Normal 3.5-5.1 [facility] Comment on above: Performed By: #### B MP #### [facility] [address] [address] [address] Raf Pearl Protein [Mass/Vol] 7.6 g/dL Normal 6.4-8.2 [facility] Comment on above: Performed By: #### B MP #### [facility] [address] [address] [address] Raf Pearl Sodium [Moles/Vol] 138 mmol/L Normal 136-145 [facility] Comment on above: Performed By: #### B MP #### [facility] [address] [address] [address] Raf Pearl Urea nitrogen [Mass/Vol] 19.0 mg/dL Critically high 7.0-18.0 [facility] Comment on above: Performed By: #### B MP #### [facility] [address] [address] [address] Raf Pearl Urea nitrogen/Creatinine [Mass ratio] 16.2 mg/mg Normal [facility] Comment on above: Performed By: #### B MP #### [facility] [address] [address] [address] Raf Pearl VIT B12 AND FOLATEon 022 Cobalamin (Vitamin B12) [Mass/Vol] 786.0 pg/mL Normal 193.0-986.0 [facility] Comment on above: Performed By: #### B 12FOL #### [facility] [address] [address] [address] Raf Pearl FOLATE 21.80 ng/mL Normal 8.60-58.90 [facility] Comment on above: Performed By: #### B 12FOL #### [facility] [address] [address] [address] Raf Pearl CERVICAL SPINE 2 OR 3 VWSon 11-02-2018 CERVICAL SPINE 2 OR 3 VWS [facility] Department of Radiology [address] [place] [id number] Patient Name: CRISELDA MORFIN : 1955 [...] , Ordering Provider - A [employer]IE [employer]IC , Exam: CERVICAL SPINE 2 OR 3 [...] (X-RAY, CERVICAL SPINE): AP, ...More In Sending tube coater 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 Electronically signed by:Jeffrey Miles. Transcribed by: [email or web address], User Resident: ANTHONY SUNG Electronically Signed by: JEFFREY MILES @ 11/04/2018 04:42 PM I personally read this/these film(s) with this resident Normal [facility] Comment on above: Order Comment: , pos top, eval hardware and alignment , Views (X-RAY, CERVICAL SPINE): AP, Lateral, Odontoid , postop, eval hardware and alignment , Views (X-RAY, CERVICAL SPINE): AP, Lateral, Odontoid , , , Ordering Provider - A ROSIE [employer] SUPER[employer] MECHANIC , POC GLUCOSE LABon 08-25-2018 Glucose [Mass/Vol] 208 mg/dL High 70-100 [facility] Comment on above: Performed By: #### 5 [id number], [id number] #### [facility] [address] [place] [address], [facility] Glucose [Mass/Vol] 98 mg/dL Normal 70-100 [facility] Comment on above: Performed By: #### 5 6101, [id number] #### [facility] [address] [facility]. [address] BASIC METABOLIC PANELon 05-0 Calcium [Mass/Vol] 7.7 mg/dL Low 8.6-10.3 [facility] Comment on above: Order Comment: No: D o not add to previous draw Performed By: #### 5 0103 #### [facility] [address] [place] [address], [facility] Chloride [Moles/Vol] 109 mmol/L High 98-107 [facility] Comment on above: Order Comment: No: D o not add to previous draw Performed By: #### 5 0103 #### [facility] [address] [facility] [place] [place] [address], [facility] CO2 [Moles/Vol] 24 mmol/L Normal 21-31 [facility] Comment on above: Order Comment: No: D o not add to previous draw Performed By: #### 5 0103 #### [facility] [address] [facility] [place] [place] [address], [facility] Creatinine [Mass/Vol] 0.89 mg/dL Normal 0.60-1.20 [facility] Comment on above: Order Comment: No: D o not add to previous draw Performed By: #### 5 0103 #### [facility] [address] [place] [address], [facility] GFR/1.73 sq M predicted among blacks MDRD (S/P/Bld) [Vol rate/Area] mL/min/{1.73_m2} Normal >60 [facility] Comment on above: Order Comment: No: D o not add to previous draw Performed By: #### 5 0103 #### [facility] [address] [place] [address], [facility] GFR/1.73 sq M predicted among non-blacks MDRD (S/P/Bld) [Vol rate/Area] mL/min/{1.73_m2} Normal >60 [facility] Comment on above: Order Comment: No: D o not add to previous draw Performed By: #### 5 0103 #### [facility] [address] [place] [address], [facility] Glucose [Mass/Vol] 94 mg/dL Normal 70-100 [facility] Comment on above: Order Comment: No: D o not add to previous draw Performed By: #### 5 0103 #### [facility] [address] [place] [address], [facility] Potassium [Moles/Vol] 3.3 mmol/L Low 3.5-5.1 [facility] Comment on above: Order Comment: No: D o not add to previous draw Performed By: #### 5 0103 #### [facility] [address] [place] [address], [facility] Sodium [Moles/Vol] 140 mmol/L Normal 136-145 [facility] Comment on above: Order Comment: No: D o not add to previous draw Performed By: #### 5 0103 #### [facility] [address] [place] [address], [facility] Urea nitrogen [Mass/Vol] 11 mg/dL Normal 7-25 [facility] Comment on above: Order Comment: No: D o not add to previous draw Performed By: #### 5 0103 #### [facility] [address] [place] [address], [place] CBC W/DIFFon 08-24-2018 ABS BASOPHILS 0.0 10*3/uL Normal 0.0-0.2 [facility] Comment on above: Order Comment: No: D o not add to previous draw Performed By: #### 5 0103 #### [facility] [address] [place] [address], [facility] ABS IMM GRANS 0.1 10*3/uL Normal 0.0-0.2 [facility] Comment on above: Order Comment: No: D o not add to previous draw Performed By: #### 5 0103 #### [facility] [address] [facility] [place] [address], [facility] ABS NEUTROPHILS 12.5 10*3/uL High 1.6-7.6 [facility] Comment on above: Order Comment: No: D o not add to previous draw Performed By: #### 5 0103 #### [facility] [address] [place] [address], [facility] Basophils/100 WBC (Bld) 0.3 % Normal 0.0-1.0 [facility] Comment on above: Order Comment: No: D o not add to previous draw Performed By: #### 5 0103 #### [facility] [address] [facility] [place] [address], [facility] Eosinophils (Bld) [#/Vol] 0.0 10*3/uL Normal 0.0-0.5 [facility] Comment on above: Order Comment: No: D o not add to previous draw Performed By: #### 5 0103 #### [facility] [address] [facility]. [place] [id number], [facility] Eosinophils/100 WBC (Bld) 0.0 % Normal 0.0-6.0 [facility] Comment on above: Order Comment: No: D o not add to previous draw Performed By: #### 5 0103 #### [facility] [address] [place] [address], [facility] Erythrocyte distribution width (RBC) [Ratio] 13.0 % Normal 11.5-15.0 [facility] Comment on above: Order Comment: No: D o not add to previous draw Performed By: #### 5 0103 #### [facility] [address] [place] [address], [facility] Hematocrit (Bld) [Volume fraction] 31.7 % Low 36.0-45.0 [facility] Comment on above: Order Comment: No: D o not add to previous draw Performed By: #### 5 0103 #### [facility] [address] [place] [address], [facility] Hemoglobin (Bld) [Mass/Vol] 10.3 g/dL Low 12.0-15.0 [facility] Comment on above: Order Comment: No: D o not add to previous draw Performed By: #### 5 0103 #### [facility] [address] [facility] [place] [address], [facility] IMMATURE GRANS 0.5 % Normal 0.0-1.0 [facility] Comment on above: Order Comment: No: D o not add to previous draw Performed By: #### 5 0103 #### [facility] [address] [facility] [place] [address], [facility] Lymphocytes (Bld) [#/Vol] 1.9 10*3/uL Normal 1.2-4.0 [facility] Comment on above: Order Comment: No: D o not add to previous draw Performed By: #### 5 0103 #### [facility] [address] [facility] [place] [address], [facility] Lymphocytes/100 WBC (Bld) 11.9 % Low 20.0-45.0 [facility] Comment on above: Order Comment: No: D o not add to previous draw Performed By: #### 5 0103 #### [facility] [address] [place] [address], [facility] MCH (RBC) [Entitic mass] 31.7 pg Normal 27.0-33.0 [facility] Comment on above: Order Comment: No: D o not add to previous draw Performed By: #### 5 0103 #### [facility] [address] [place] [address], [facility] MCHC (RBC) [Mass/Vol] 32.5 g/dL Normal 32.0-35.0 [facility] Comment on above: Order Comment: No: D o not add to previous draw Performed By: #### 5 0103 #### [facility] [address] [place] [address], [facility] MCV (RBC) [Entitic vol] 97.5 fL Normal 82.0-98.0 [facility] Comment on above: Order Comment: No: D o not add to previous draw Performed By: #### 5 0103 #### [facility] [address] [place] [address], [facility] Monocytes (Bld) [#/Vol] 1.2 10*3/uL High 0.1-1.0 [facility] Comment on above: Order Comment: No: D o not add to previous draw Performed By: #### 5 0103 #### [facility] [address] [facility] [place] [address], [facility] MONOS 7.7 % Normal 5.0-12.0 [facility] Comment on above: Order Comment: No: D o not add to previous draw Performed By: #### 5 0103 #### [facility] [address] [place] [address], [facility] Neutrophils/100 WBC (Bld) 79.6 % High 40.0-72.0 [facility] Comment on above: Order Comment: No: D o not add to previous draw Performed By: #### 5 0103 #### [facility] [address] [place] [id number], [facility] Nucleated RBC/100 WBC (Bld) [Ratio] 0 % Normal 0-0 [facility] Comment on above: Order Comment: No: D o not add to previous draw Performed By: #### 5 0103 #### [facility] [address] [place] [id number], [facility] PLAT CNT 263 10*3/uL Normal 150-400 [facility] Comment on above: Order Comment: No: D o not add to previous draw Performed By: #### 5 0103 #### [facility] [address] [place] [address], [facility] RBC (Bld) [#/Vol] 3.25 10*6/uL Low 3.80-5.00 [facility] Comment on above: Order Comment: No: D o not add to previous draw Performed By: #### 5 0103 #### [facility] [address] [place] [address], [facility] WBC (Bld) [#/Vol] 15.70 10*3/uL High 4.00-10.60 [facility] Comment on above: Order Comment: No: D o not add to previous draw Performed By: #### 5 0103 #### [facility] [address] [place] [id number], [facility] LIPID PROFILEon 08-24-2018 Cholesterol [Mass/Vol] 128 mg/dL Normal 120-200 [facility] Comment on above: Order Comment: No: D o not add to previous draw Result Comment: CHOL ESTEROL REFERENCE RANGE: 20 YEARS AND OLDER CARDIOVASCULAR RISK Less than 200 mg/dl Low Risk 200 to 239 mg/dl Borderline Risk 240 mg/dl and greater High Risk Performed By: #### 5 0103 #### [facility] [address] [place] [address], [facility] Cholesterol in HDL [Mass/Vol] 49 mg/dL Normal 23-92 [facility] [...] Risk Performed By: #### 5 0103 #### [facility] [address] [place] [address], [facility] Cholesterol in LDL [Mass/Vol] 65 mg/dL Normal 0-130 [facility] Comment on above: Order Comment: No: D o not add to previous draw Result Comment: LDL IS A CALCULATION LDL IS ONLY VALID IF THE TRIG IS LESS THAN 400. Performed By: #### 5 0103 #### [facility] [address] [place] [address], [facility] Cholesterol.total/Ch olesterol in HDL [Mass ratio] 2.6 {ratio} Normal .0-4.5 [facility] Comment on above: Order Comment: No: D o not add to previous draw Performed By: #### 5 0103 #### [facility] [address] [place] [address], [facility] NON-HDL CHOLESTEROL 79 mg/dL Normal [facility] Comment on above: Order Comment: No: D o not add to previous draw Performed By: #### 5 0103 #### [facility] [address] [facility] [place] [address], [facility] Triglyceride [Mass/Vol] 69 mg/dL Normal 40-149 [facility] Comment on above: Order Comment: No: D o not add to previous draw Result Comment: TRIG LYCERIDE REFERENCE RANGE: 20 YEARS AND OLDER CARDIOVASCULAR RISK LESS THAN 150 mg/dl LOW RISK 150 TO 199 mg/dl BORDERLINE RISK 200 mg/dl AND GREATER HIGH RISK Performed By: #### 5 0103 #### [facility] [address] [place] [address], [facility] VLDL CHOL 14 mg/dL Normal 0-40 [facility] Comment on above: Order Comment: No: D o not add to previous draw Performed By: #### 5 0103 #### [facility] [address] [place] [address], [place] POC GLUCOSE LABon 08-24-2018 Glucose [Mass/Vol] 162 mg/dL High 70-100 [facility] Comment on above: Performed By: #### 5 6101, [id number] #### [facility] [address] [place] [address], [place] Glucose [Mass/Vol] 146 mg/dL High 70-100 [facility] Comment on above: Performed By: #### 5 610, [id number] #### [facility] [address] [place] [address], [place] Glucose [Mass/Vol] 213 mg/dL High 70-100 [facility] Comment on above: Performed By: #### 5 6101, 67976 #### [facility] [address] [place] [address], [place] Glucose [Mass/Vol] 81 mg/dL Normal 70-100 [facility] Comment on above: Performed By: #### 5 6101, 00195 #### [facility] [address] [place] [address], [place] BASIC METABOLIC PANELon 05- Calcium [Mass/Vol] 8.4 mg/dL Low 8.6-10.3 [facility] Comment on above: Order Comment: Yes: Add to Previous draw if able Performed By: #### 5 0103 #### [facility] [address] [place] [address], [place] Chloride [Moles/Vol] 103 mmol/L Normal 98-107 [facility] Comment on above: Order Comment: Yes: Add to Previous draw if able Performed By: #### 5 010 #### [facility] [address] [place] [address], [place] CO2 [Moles/Vol] 26 mmol/L Normal 21-31 [facility] Comment on above: Order Comment: Yes: Add to Previous draw if able Performed By: #### 5 0103 #### [facility] [address] [place] [address], [place] Creatinine [Mass/Vol] 1.03 mg/dL Normal 0.60-1.20 [facility] Comment on above: Order Comment: Yes: Add to Previous draw if able Performed By: #### 5 0103 #### [facility] [address] [place] [address], [place] GFR/1.73 sq M predicted among blacks MDRD (S/P/Bld) [Vol rate/Area] mL/min/{1.73_m2} Normal >60 [facility] Comment on above: Order Comment: Yes: Add to Previous draw if able Performed By: #### 5 0103 #### [facility] [address] [place] [address], [place] GFR/1.73 sq M predicted among non-blacks MDRD (S/P/Bld) [Vol rate/Area] 54 ml/min/1.73sq m Abnormal >60 [facility] Comment on above: Order Comment: Yes: Add to Previous draw if able Performed By: #### 5 0103 #### [facility] [address] [place] [address], [place] Glucose [Mass/Vol] 209 mg/dL High 70-100 [facility] Comment on above: Order Comment: Yes: Add to Previous draw if able Performed By: #### 5 0103 #### [facility] [address] [place] [address], [place] Potassium [Moles/Vol] 3.9 mmol/L Normal 3.5-5.1 [facility] Comment on above: Order Comment: Yes: Add to Previous draw if able Performed By: #### 5 0103 #### [facility] [address] [place] [address], [place] Sodium [Moles/Vol] 135 mmol/L Low 136-145 [facility] Comment on above: Order Comment: Yes: Add to Previous draw if able Performed By: #### 5 3 #### [facility] [address] [place] [address], [facility] Urea nitrogen [Mass/Vol] 16 mg/dL Normal 7-25 [facility] Comment on above: Order Comment: Yes: Add to Previous draw if able Performed By: #### 3 #### [facility] [address] CBC COMPLETE BLOOD COUNTon 0 08-23-2018 Erythrocyte distribution width (RBC) [Ratio] 12.8 % Normal 11.5-15.0 [facility] Comment on above: Order Comment: Yes: Add to Previous draw if able Performed By: #### 5 102 #### [facility] [address] [place] [address], [facility] Hematocrit (Bld) [Volume fraction] 35.0 % Low 36.0-45.0 [facility] Comment on above: Order Comment: Yes: Add to Previous draw if able Performed By: #### 5 3 #### [facility] [address] [place] [address], [facility] Hemoglobin (Bld) [Mass/Vol] 11.2 g/dL Low 12.0-15.0 [facility] Comment on above: Order Comment: Yes: Add to Previous draw if able Performed By: #### 5 3 #### [facility] [address] [place] [address], [facility] MCH (RBC) [Entitic mass] 31.5 pg Normal 27.0-33.0 [facility] Comment on above: Order Comment: Yes: Add to Previous draw if able Performed By: #### 5 3 #### [facility] [address] [place] [address], [facility] MCHC (RBC) [Mass/Vol] 32.0 g/dL Normal 32.0-35.0 [facility] Comment on above: Order Comment: Yes: Add to Previous draw if able Performed By: #### 5 0103 #### [facility] [address] [place] [address], [facility] MCV (RBC) [Entitic vol] 98.3 fL High 82.0-98.0 [facility] Comment on above: Order Comment: Yes: Add to Previous draw if able Performed By: #### 5 0103 #### [facility] [address] [facility] [place] [address], [facility] Nucleated RBC/100 WBC (Bld) [Ratio] 0 % Normal 0-0 [facility] Comment on above: Order Comment: Yes: Add to Previous draw if able Performed By: #### 5 0103 #### [facility] [address] [place] [address], [facility] PLAT CNT 276 10*3/uL Normal 150-400 [facility] Comment on above: Order Comment: Yes: Add to Previous draw if able Performed By: #### 5 0103 #### [facility] [address] [facility] [place] [address], [facility] RBC (Bld) [#/Vol] 3.56 10*6/uL Low 3.80-5.00 The [facility] Comment on above: Order Comment: Yes: Add to Previous draw if able Performed By: #### 5 0103 #### [facility] [address] [facility] [place] [place] [address], [facility] WBC (Bld) [#/Vol] 14.61 10*3/uL High 4.00-10.60 [facility] Comment on above: Order Comment: Yes: Add to Previous draw if able Performed By: #### 5 0103 #### [facility] [address] [facility] [place] [address], [facility] CERVICAL SPINE 2 OR 3 VWSon 08-23-2018 CERVICAL SPINE 2 OR 3 S [facility] Department of Radiology [address] [place] [address] [phone] Patient Name: CRISELDA MORFIN : 1955 Sex: [...] C6. Electronically signed by:Xiomara Nath. Transcribed by: [email or web address], User Resident: Electronically Signed by: XIOMARA NATH @ 08/23/2018 04:07 PM Normal [facility] Comment on above: Order Comment: C4-C5 , C5-C6 ANTERIOR CERVICAL DISCECTOMY WITH FUSION Operative Reporton 9 Operative Report MR#: [id number] S [facility] Pt. Name: Criselda Morfin Room #: 0C Discharge Date: Birthdate: 1955 OPERATIVE REPORT DATE OF SURGERY: 08/23/2018 SURGEON: Demetris Askew M.D. 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 POSTOPERATIVE DIAGNOSIS: Herniated cervical disk and spinal stenosis from C4 through C6. DTP OPERATOR: ELIDIA Castle. ANESTHESIA: Endotracheal, Dr. Falcon. PROCEDURE: [...] size 8 at C5-6. The plate was Rafael Hernandez, size 35 mm. The screws were 6, [...] Askew M.D. Date Trans: 08/23/2018 01:26 P/kari [id number] Normal [facility] POC GLUCOSE LABon 08-23-2018 Glucose [Mass/Vol] 157 mg/dL High 70-100 [facility] Comment on above: Performed By: #### 5 0103 #### [facility] [address] Glucose [Mass/Vol] 190 mg/dL High 70-100 [facility] Comment on above: Performed By: #### 5 0103 #### [facility] [address] Glucose [Mass/Vol] 182 mg/dL High 70-100 [facility] Comment on above: Performed By: #### 5 0103 #### [facility] [address] [place] [address], [facility] Glucose [Mass/Vol] 94 mg/dL Normal 70-100 [facility] Comment on above: Performed By: #### 5 0103 #### [facility] [address] *MRSA/MSSA DNA NASALon 08-08 *MRSA/MSSA DNA NASAL Clinical Report: (D ) Specimen: NASAL SWAB Collected: 08/08/2018 15:04 Status: Final Last Updated: 08/08/2018 20:45 MSSA DNA (Final) Negative MRSA DNA (Final) Negative Normal [facility] Comment on above: Performed By: #### 3 1595 #### [facility] [address] *URINE CULTUREon 08-08-2018 Bacteria identified Cx [...] CEFAZOLIN (CZ) 2 Susceptible 4 Susceptible CEFTRIAXONE (MAT MACHINE TENDER) <=0.5 Susceptible <=0.5 Susceptible CIPROFLOXACIN (CIP) <=0.5 Susceptible <=0.5 Susceptible GENTAMICIN (GM) 1 Susceptible 4 Susceptible MEROPENEM (MEM) <=0.125 Susceptible NITROFURANTOIN (FT) 32 Susceptible >64 Resistant PIP/TAZO (TZP) 4/4 Susceptible PIP/TAZO (TZP) <=2/4 Susceptible TOBRAMYCIN (TOB) 1 Susceptible 2 Susceptible TRIMETH/SULFA (SXT) <=0.5/9.5 Susceptible <=0.5/9.5 Susceptible Antibiotic Summary Grid: AMS AM AZM CZ MAT MACHINE TENDER CIP GM MEM FT TZP TOB Citrobacter S R S S S S S S S S S amalonaticus complex Proteus mirabilis S S S S S S S R S S SXT Citrobacter S amalonaticus complex Proteus mirabilis S Normal [facility] Comment on above: Performed By: #### 3 0339 #### [facility] [address] APTTon 08-08-2018 aPTT Coag (Bld) [Time] 28.0 s Normal 25.0-35.0 [facility] Comment on above: Result Comment: ALL RESULTS [...] THIS PURPOSE. Performed By: #### 5 6101, 26326 #### [facility] [address] BASIC METABOLIC PANELon - Calcium [Mass/Vol] 9.6 mg/dL Normal 8.6-10.3 [facility] Comment on above: Performed By: #### 0 0071 #### [facility] [address] [place] [address], [place] Chloride [Moles/Vol] 103 mmol/L Normal 98-107 [facility] Comment on above: Performed By: #### 0 0071 #### [facility] [address] [place] [address], [place] CO2 [Moles/Vol] 30 mmol/L Normal 21-31 [facility] Comment on above: Performed By: #### 0 0071 #### [facility] [address] [place] [address], [place] Creatinine [Mass/Vol] 1.07 mg/dL Normal 0.60-1.20 [facility] Comment on above: Performed By: #### 0 0071 #### [facility] [address] [place] [address], [place] GFR/1.73 sq M predicted among blacks MDRD (S/P/Bld) [Vol rate/Area] mL/min/{1.73_m2} Normal >60 [facility] Comment on above: Performed By: #### 0 0071 #### [facility] [address] [place] [address], [place] GFR/1.73 sq M predicted among non-blacks MDRD (S/P/Bld) [Vol rate/Area] 52 ml/min/1.73sq m Abnormal >60 [facility] Comment on above: Performed By: #### 0 0071 #### [facility] [address] [place] [address], [place] Glucose [Mass/Vol] 93 mg/dL Normal 70-100 [facility] Comment on above: Performed By: #### 0 0071 #### [facility] [address] [place] [address], [place] Potassium [Moles/Vol] 4.2 mmol/L Normal 3.5-5.1 [facility] Comment on above: Performed By: #### 0 0071 #### [facility] [address] Sodium [Moles/Vol] 139 mmol/L Normal 136-145 [facility] Comment on above: Performed By: #### 0 1 #### [facility] [address] Urea nitrogen [Mass/Vol] 18 mg/dL Normal 7-25 [facility] Comment on above: Performed By: #### 0 1 #### [facility] [address] CBC W/DIFFon 08-08-2018 ABS BASOPHILS 0.1 10*3/uL Normal 0.0-0.2 The [facility] Comment on above: Performed By: #### 5 102 #### [facility] [address] ABS IMM GRANS 0.0 10*3/uL Normal 0.0-0.2 The [facility] Comment on above: Performed By: #### 5 102 #### [facility] [address] ABS NEUTROPHILS 5.0 10*3/uL Normal 1.6-7.6 The [facility] Comment on above: Performed By: #### 5 3 #### [facility] [address] Basophils/100 WBC (Bld) 0.9 % Normal 0.0-1.0 [facility] Comment on above: Performed By: #### 5 102 #### [facility] [address] Eosinophils (Bld) [#/Vol] 0.2 10*3/uL Normal 0.0-0.5 [facility] Comment on above: Performed By: #### 5 0103 #### [facility] [address] [place] [address], [facility] Eosinophils/100 WBC (Bld) 1.8 % Normal 0.0-6.0 [facility] Comment on above: Performed By: #### 102 #### [facility] [address] [place] [address], [facility] Erythrocyte distribution width (RBC) [Ratio] 13.1 % Normal 11.5-15.0 [facility] Comment on above: Performed By: #### 102 #### [facility] [address] [place] [address], [facility] Hematocrit (Bld) [Volume fraction] 37.2 % Normal 36.0-45.0 [facility] Comment on above: Performed By: #### 102 #### [facility] [address] [place] [address], [facility] Hemoglobin (Bld) [Mass/Vol] 12.3 g/dL Normal 12.0-15.0 [facility] Comment on above: Performed By: #### 102 #### [facility] [address] [place] [address], [facility] IMMATURE GRANS 0.5 % Normal 0.0-1.0 The [facility] Comment on above: Performed By: #### 3 #### [facility] [address] [place] [address], [facility] Lymphocytes (Bld) [#/Vol] 2.2 10*3/uL Normal 1.2-4.0 [facility] Comment on above: Performed By: #### 3 #### [facility] [address] [place] [address], [facility] Lymphocytes/100 WBC (Bld) 26.5 % Normal 20.0-45.0 [facility] Comment on above: Performed By: #### 102 #### [facility] [address] [facility] [address] MCH (RBC) [Entitic mass] 31.4 pg Normal 27.0-33.0 [facility] Comment on above: Performed By: #### 5 0103 #### [facility] [address] MCHC (RBC) [Mass/Vol] 33.1 g/dL Normal 32.0-35.0 [facility] Comment on above: Performed By: #### 5 0103 #### [facility] [address] [place] [address], [facility] MCV (RBC) [Entitic vol] 94.9 fL Normal 82.0-98.0 [facility] Comment on above: Performed By: #### 5 3 #### [facility] [address] [facility]. [address] Monocytes (Bld) [#/Vol] 0.7 10*3/uL Normal 0.1-1.0 [facility] Comment on above: Performed By: #### 5 0103 #### [facility] [address] [facility]. [address] MONOS 8.3 % Normal 5.0-12.0 [facility] Comment on above: Performed By: #### 5 0103 #### [facility] [address] Neutrophils/100 WBC (Bld) 62.0 % Normal 40.0-72.0 [facility] Comment on above: Performed By: #### 5 0103 #### [facility] [address] [place] [address], [facility] Nucleated RBC/100 WBC (Bld) [Ratio] 0 % Normal 0-0 [facility] Comment on above: Performed By: #### 5 0103 #### [facility] [address] [facility] [address] PLAT CNT 325 10*3/uL Normal 150-400 [facility] Comment on above: Performed By: #### 5 0103 #### [facility] [address] [facility] [place] [place] [address], [facility] RBC (Bld) [#/Vol] 3.92 10*6/uL Normal 3.80-5.00 The [facility] Comment on above: Performed By: #### 5 0103 #### [facility] [address] [place] [address], [facility] WBC (Bld) [#/Vol] 8.12 10*3/uL Normal 4.00-10.60 [facility] Comment on above: Performed By: #### 5 0103 #### [facility] [address] CERVICAL SPINE 4 OR 5 VIEWSo 08-08-2018 CERVICAL SPINE 4 OR 5 VIEWS [facility] Department of Radiology [address] [place] [address] [phone] Patient Name: CRISELDA MORFIN : 1955 Sex: F Age: Race: White Pt. Location: Patient Status: O Ordered Date: 08/08/2018 2:25:00 PM Completed Date: 08/08/2018 02:48 PM Requesting Provider: DEMETRIS ASKEW Attending Provider: DEMETRIS ASKEW Report Copy To: DEMETRIS ASKEW Signs & Symptoms: M48.02 Spinal stenosis, cervical region I10 History: [place] Comments: , POST OP XRAY AP/LAT ONLY [...] level Electronically signed by:Xiomara Nath. Transcribed by: [email or web address], User Resident: Electronically Signed by: XIOMARA NATH @ 08/08/2018 03:24 PM Normal [facility] Comment on above: Order Comment: , POS T OP XRAY AP/LAT ONLY , POST OP XRAY AP/LAT ONLY , , , Ordering Charlene ASKEW MD , HEMOGLOBIN A1Con 08-08-2018 HbA1c (Bld) [Mass fraction] 154 mg/dL High 70-126 [facility] Comment on above: Performed By: #### 4 6447 #### [facility] [address] [facility]. [address] HbA1c (Bld) [Mass fraction] 7.0 % High 4.0-6.0 The [facility] Comment on above: Performed By: #### 4 6447 #### [facility] [address] [facility]. [address] PROTHROMBIN TIMEon 9 INR Coag (PPP) [Relative time] 0.93 {INR} Normal 0.91-1.16 [facility] Rehabilitation Comment on above: Result Comment: ACCC P [...] CHEST 1995;[id number]. Performed By: #### 5 [id number], [id number] #### [facility] [address] [facility] [place] [address], [facility] PT Coag (PPP) [Time] 12.5 s Normal 12.3-14.8 [facility] Comment on above: Result Comment: ALL RESULTS MUST BE INTERPRETED WITH RESPECT TO BLOOD DRAWING ARTIFACT OR DILUTION ERROR OF ANTICOAGULANT AT THE TIME OF SAMPLING. Performed By: #### 5 [id number], [id number] #### [facility] [address] [facility] TYPE AND CROSSMATCHon 2018 ABO INTERPRETATION O Normal [facility] Comment on above: Performed By: #### 6 [id number] #### [facility] [address] [place] [address], [place] RH INTERPRETATION Positive Normal [facility] Comment on above: Performed By: #### 6 [id number] #### [facility] [address] [place] [address], [place] URINALYSIS REFLEXon 08-09-19 19 Appearance (U) CLEAR Normal CLEAR The [facility] Comment on above: Performed By: #### 3 0965 #### [facility] [address] [place] [address], [place] Bilirubin [Mass/Vol] Negative Normal NEGATIVE [facility] Comment on above: Performed By: #### 3 0965 #### [facility] [address] [place] [address], [place] BLOOD Negative Normal NEGATIVE [facility] Comment on above: Performed By: #### 3 0965 #### [facility] [address] [place] [address], [place] Color (U) STRAW Abnormal YELLOW [facility] Comment on above: Performed By: #### 3 0965 #### [facility] [address] [place] [address], [place] EPIS NONE SEEN Normal FEW,OCC,NONE SEEN [facility] Comment on above: Performed By: #### 3 0965 #### [facility] [address] [place] [address], [place] Glucose [Mass/Vol] Negative Normal NEGATIVE [facility] Comment on above: Performed By: #### 3 0965 #### [facility] [address] [place] [address], [place] KETONE Negative Normal NEGATIVE [facility] Comment on above: Performed By: #### 3 0965 #### [facility] [address] [place] [address], [place] LEUK ALVARADO TRACE Abnormal NEGATIVE [facility] Comment on above: Performed By: #### 3 0965 #### [facility] [address] [place] [address], [place] Nitrite Ql (U) Negative Normal NEGATIVE [facility] Comment on above: Performed By: #### 3 0965 #### [facility] [address] [place] [address], [place] pH (Bld) 6.0 Normal 5.0-8.0 [facility] Comment on above: Performed By: #### 3 0965 #### [facility] [address] [place] [address], [place] Protein (U) [Mass/Vol] Negative Normal NEGATIVE [facility] Comment on above: Performed By: #### 3 0965 #### [facility] [address] [place] [address], [place] RBC (U) [#/Vol] 0-2 Abnormal NONE SEEN [facility] Comment on above: Performed By: #### 3 0965 #### [facility] [address] [place] [address], [place] SPEC GRAV 1.011 Low 1.015-1.020 [facility] Comment on above: Performed By: #### 3 0965 #### [facility] [address] [place] [address], [place] WBC UA 0-2 Abnormal NONE SEEN [facility] Comment on above: Performed By: #### 3 0965 #### [facility] [address] [place] [address], [place] Vital Signs Date Time Vital Sign Value Performing Clinician Facility 09-24-2022 08:10-0400 Body height 149.86 cm Rin Nicholson Other [facility] Other 09-24-2022 08:10-0400 Body mass index (BMI) [Ratio] 29.89 kg/m2 Rin Nicholson Other [facility] Other 09-24-2022 08:10-0400 Body temperature 98.6 [degF] Rin Nicholson Other [facility] Other 09-24-2022 08:10-0400 Body weight 67.13 kg Rin Nicholson Other [facility] Other 09-24-2022 08:10-0400 Diastolic blood pressure 84 mm[Hg] Rin Nicholson Other [facility] Other 09-24-2022 08:10-0400 Respiratory rate 18 /min Rin Nicholson Other [facility] Other 09-24-2022 08:10-0400 SaO2% (BldA) [Mass fraction] 97 % Rin Nicholson Other [facility] Other 09-24-2022 08:10-0400 Systolic blood pressure 126 mm[Hg] Rin Nicholson Other [facility] Other 08-09-2022 18:20-0400 Body height 149.86 cm Rin Nicholson Other [facility] Other 08-09-2022 18:20-0400 Body mass index (BMI) [Ratio] 29.89 kg/m2 Rin Nicholson Other [facility] Other 08-09-2022 18:20-0400 Body temperature 98.2 [degF] Rin Nicholson Other [facility] Other 08-09-2022 18:20-0400 Body weight 67.13 kg Rin Nicholson Other [facility] Other 08-09-2022 18:20-0400 Diastolic blood pressure 78 mm[Hg] Rin Nicholson Other [facility] Other 08-09-2022 18:20-0400 Respiratory rate 16 /min Rin Nicholson Other [facility] Other 08-09-2022 18:20-0400 SaO2% (BldA) [Mass fraction] 98 % Rin Nicholson Other [facility] Other 08-09-2022 18:20-0400 Systolic blood pressure 136 mm[Hg] Rin Nicholson Other [facility] Other 02-08-2022 18:00-0400 Body height 149.86 cm Rin Nicholson Other [facility] Other 02-08-2022 18:00-0400 Body mass index (BMI) [Ratio] 28.98 kg/m2 Rin Nicholson Other [facility] Other 02-08-2022 18:00-0400 Body temperature 98.1 [degF] Rin Nicholson Other [facility] Other 02-08-2022 18:00-0400 Body weight 65.09 kg Rin Nicholson Other [facility] Other 02-08-2022 18:00-0400 Diastolic blood pressure 80 mm[Hg] Rin Nicholson Other [facility] Other 02-08-2022 18:00-0400 Respiratory rate 16 /min Rin Nicholson Other [facility] Other 02-08-2022 18:00-0400 SaO2% (BldA) [Mass fraction] 99 % Rin Nicholson Other [facility] Other 02-08-2022 18:00-0400 Systolic blood pressure 136 mm[Hg] Rin Nicholson Other [facility] Other Encounters Encounter Date Encounter Type Care Provider Facility Start: 05-16-2023 End: 05-16-2023 ambulatory Rin Nicholson Other [facility] Other Start: 05-16-2023 Telephone encounter Rin Nicholson [facility] [place] Start: 05-03-2023 End: 05-03-2023 ambulatory Rin Nicholson Facility:[facility] Start: 05-03-2023 Encounter by compute r link Rin Nicholson [facility] [place] Start: 05-03-2023 End: 05-03-2023 ambulatory DO Rin Nicholson Work Phone: [facility] Work Phone: Start: 05-03-2023 End: 05-03-2023 Patient encounter procedure DO Rin Nicholson Work Phone: [facility] Work Phone: Start: 04-12-2023 End: 04-12-2023 ambulatory Rin Nicholson Other [facility] Other Start: 04-12-2023 Telephone encounter Rin Nicholson [facility] [place] Start: 04-04-2023 End: 04-04-2023 ambulatory Rin Nicholson Other [facility] Other Start: 04-04-2023 Telephone encounter Rin Nicholson [facility] [place] Start: 03-21-2023 End: 03-21-2023 ambulatory Rin Nicholson Other [facility] Other Start: 03-21-2023 Telephone encounter Rin Nicholson [facility] [place] Start: 02-23-2023 End: 02-23-2023 ambulatory Rin Nicholson Other [facility] Other Start: 02-23-2023 Telephone encounter Rin Nicholson [facility] [place] Start: 09-24-2022 End: 09-24-2022 ambulatory Rin Nicholson Other [facility] Other Start: 09-24-2022 Office outpatient vi sit 15 minutes Rin Nicholson [facility] [place] Start: 08-30-2022 End: 08-31-[address] RIN NICHOLSON Facility:[facility] Start: 08-17-2022 End: 08-17-2022 ambulatory Rin Nicholson Other [facility] Other Start: 08-17-2022 Telephone encounter Rin Nicholson [facility] [place] Start: 08-16-2022 End: 08-17-[address] RIN NICHOLSON Facility:[facility] Start: 08-09-2022 End: 08-09-2022 ambulatory Rin Nicholson Other [facility] Other Start: 08-09-2022 Office outpatient vi sit 25 minutes Rin Nicholson [facility] [place] Start: 08-06-2022 End: 08-06-2022 ambulatory Rin Nicholson Other [facility] Other Start: 08-06-2022 Telephone encounter Rin Nicholson [facility] [place] Start: 07-31-2022 End: 08-01-[address] RIN NICHOLSON Facility:[facility] Start: 06-04-2022 End: 06-04-2022 ambulatory Rin Nicholson Other [facility] Other Start: 06-04-2022 Telephone encounter Rin Nicholson [facility] [place] Start: 05-24-2022 End: 05-24-2022 ambulatory Rin Nicholson Other [facility] Other Start: 05-24-2022 Telephone encounter Rin Nicholson [facility] [place] Start: 05-14-2022 End: 05-14-2022 ambulatory Rin Nicholson Other [facility] Other Start: 05-14-2022 Telephone encounter Rin Nicholson [facility] [place] Start: 04-30-2022 End: 04-30-[address] BETTINA MULLIGAN . Facility:[facility] Start: 04-22-2022 End: 04-22-2022 ambulatory Rin Nicholson Other [facility] Other Start: 04-22-2022 Telephone encounter Rin iNcholson [facility] [place] Start: 03-29-2022 End: 03-29-2022 ambulatory Rin Nicholson Other [facility] Other Start: 03-29-2022 Telephone encounter Rin Nicholson [facility] [place] Start: 03-27-2022 End: 03-28-[address] RIN NICHOLSON Facility:[facility] Start: 02-08-2022 End: 02-08-2022 ambulatory Rin Nicholson Other [facility] Other Start: 02-08-2022 Office outpatient vi sit 25 minutes Rin Nicholson [facility] [place] Start: 01-22-2022 End: 01-23-[address] RIN NICHOLSON Facility:[facility] Start: 08-23-2018 End: 08-25-2018 Evaluation and management of inpatient PROVIDER UNKNOWN Facility:[facility] Start: 05-11-2018 Patient encounter procedure Selin Jean [...] above: Performed By: #### 6 [id number] #### [facility] [address] Immunizations Immunization Date Immunization Notes Care Provider Fa hunter 04-26-2023 Prevnar 20 Rin Nicholson Other [facility] Other 04-08-2023 COVID-19 Moderna (SPIKEVAX) Rin Nicholson Other [facility] Other 04-08-2023 zoster vaccine recombinant Rin Nicholson Other [facility] Other 03-22-2023 Flu Shot - Documentation Purposes Only Rin Nicholson Other [facility] Other 02-08-2022 Shingrix 50 MCG/0.5M L; 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: [Shingrix 50 MCG/0.5ML] Rin Nicholson Other [facility] Other 01-15-2022 influenza, seasonal, injectable Rin Nicholson Other [facility] Other 01-15-2022 COVID-19 Pfizer (bivalent) Rin Nicholson Other [facility] Other 07-31-2021 COVID-19 Vaccine Moderna - Documentation Purposes Only Rin Nicholson Other [facility] Other 02-20-2021 COVID-19 Vaccine Moderna - Documentation Purposes Only Rin Nicholson Other [facility] Other 07-26-2020 COVID-19 Brittany Romero n Other [facility] Other 06-28-2020 COVID-19 Brittany Romero n Other [facility] Other 02-18-2020 influenza, seasonal, injectable Rin Kesslerbaljit Other [facility] Other 02-19-2017 influenza, seasonal, injectable Rin Lyn Other [facility] Other 03-08-2016 influenza, seasonal, injectable Rin Kesslerbaljit Other [facility] Other 05-07-2013 influenza virus vaccine, split virus (incl. purified surface antigen) Rin Nicholson Other [facility] Other 03-24-2012 influenza, seasonal, injectable, preservative free Rin Nicholson Other [facility] Other Payers Date Payer Category Payer Self-pay [id number] 2023 Unknown [id number] 2022 Medicare [id number] 2.1 [id number] 1959 Unknown [id number] 1955 Unknown [id number] 2.16. [id number] 1955 Unknown [id number] 2.16. [id number] 1955 Unknown [id number] 2.16. [id number] 1955 Unknown [id number] 2.16. [id number] 1955 Unknown [id number] 2.16.8 [id number] 1955 Unknown [id number] 2.16.84 [id number] 1955 Unknown [id number] 2.16.84 [id number] 1955 Unknown [id number] 2.16.84 [id number] 1955 Unknown [id number] 2.16.84 [id number] 1955 Unknown [id number] 2.16.84 [id number] 1955 Unknown [id number] 2.16.84 [id number] Unknown [id number] Unknown [id number] 2.16.8 [id number] Social History Date Type Detail Facility Unknown if ever smoked [facility] Other Sex Assigned At Sex Assigned At Bir th [facility] Other Start: 1955 Sex Assigned At Female F [facility] Start: 06-02-2020 Tobacco smoking status NHIS Never smoked tobacco (finding) [facility] Medical Equipment Procedure Code Equipment Code Equipment Origin al Text Equipment Identifier Dates One Touch Lancet s lancets Start: 12-24-2011 Clinical Notes 02-11-2019 to 05-03-2023 Note Date & Type Note Facility 05-03-2023 Evaluation note Encounter Date Diagnosis Assessment Notes Apr, GERD (gastroesop hageal reflux disease) (ICD-10 - K21.9) [facility] Other 2023 Evaluation note* Encounter Date Diagnosis Assessment Notes Treatment Notes Treatment Clinical Notes Mar, Abnormal blood chemistry (ICD-10 - R79.9) Mar, Hypercalcemia (ICD-1 0 - E83.52) Mar, Stage 3a chronic kidney disease (ICD-10 - N18.31) [facility] Other 06-09-2023 Evaluation note* Encounter Date Diagnosis [...] see where her kidney studies are at. [facility] Other 04-24-2023 Evaluation note* Encounter Date Diagnosis [...] results. She may have to see the chief marketing officer again but we will wait and see [...] ice the shoulder or alternate with heat. [facility] Other 01-05-2023 Evaluation note* Encounter Date Diagnosis Assessment Notes Treatment Notes Treatment Clinical Notes Apr, Hypertension (ICD-10 - I10) [facility] Other 10-24-2022 Evaluation note* Encounter Date Diagnosis [...] this. She does agree to see an rare/endangered species specialist. A referral is provided. Her range [...] her wi th an order for a [employer] vaccine [facility] Other 02-01-2021 History general Narrative - Reported* Type Description Date Medical History Stress Test; [facility], normal per patient Medical History Pap and Pelvic 3 yea rs ago, OBGYN in [place] Medical History Mammogram over 5 yea rs; Normal at that time per patient Medical History CT Abdomen and Pelvi s over 5 years ago; [facility] Medical History Colonoscopy 8 years ago; in [place], normal in patient Medical History Chest X-Ray 12-15-11; normal, [facility] Medical History Echocardiogram; 12-15; [facility] Medical History Cardiolite Stress Te st 12-16-11; [facility] Medical History Check's sugar's bid Medical History Heart Catherization; [facility] Medical History breast cancer 04/2014 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 Surgical History Right Shoulder Tear and bone spur removal; [facility] 07-27-12 Surgical History Left Shoulder Rotato [...] for a kidney stone Surgical History mamm[place] [facility] [place] Surgical History vertabrae fusion 08/2018 Hospitalization History ovarian tumor removed an d left overy Hospitalization History complete hysterectomy 19 94 [facility] Other 01-19-2021 History general Narrative - Reported* Type Description Date Medical History Stress Test; [facility], normal per patient Medical History Pap and Pelvic 3 yea rs ago, OBGYN in [place] Medical History Mammogram over 5 yea rs; Normal at that time per patient Medical History CT Abdomen and Pelvi s over 5 years ago; [facility] Medical History Colonoscopy 8 years ago; [place], normal in patient Medical History Chest X-Ray 12-15-11; normal, [facility] Medical History Echocardiogram; 12-15; [facility] Medical History Cardiolite Stress Te st 12-16-11; [facility] Medical History Check's sugar's bid Medical History Heart Catherization; [facility] Medical History breast cancer 04/2014 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 Surgical History Right Shoulder Tear and bone spur removal; [facility] 07-27-12 Surgical History Left Shoulder Rotato [...] for a kidney stone Surgical History mammogram [facility] [place] Surgical History vertabrae fusion 08/2018 Hospitalization History ovarian tumor removed an d left overy Hospitalization History complete hysterectomy 19 94 [facility] Other 12-27-2020 History general Narrative - Reported* Type Description Date Medical History Stress Test; [facility], normal per patient Medical History Pap and Pelvic 3 yea rs ago, OBGYN in [place] Medical History Mammogram over 5 yea rs; Normal at that time per patient Medical History CT Abdomen and Pelvi s over 5 years ago; [facility] Medical History Colonoscopy 8 years ago; in [place], normal in patient Medical History Chest X-Ray 12-15-11; normal, [facility] Medical History Echocardiogram; 12-15; [facility] Medical History Cardiolite Stress Te st 12-16-11; [facility] Medical History Check's sugar's bid Medical History Heart Catherization; [facility] Medical History breast cancer 04/2014 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 Surgical History Right Shoulder Tear and bone spur removal; [facility] 07-27-12 Surgical History Left Shoulder Rotato r Cuff repair and bicep repair Dr. Aggawral 12-27-13 Surgical History US on left breast - non cancerous - Dr Jamison 05/16/15 Surgical History left breast DCIS sta tus post lumpectomy x2 Dr. Misha Jamison 05/2014 and 06/2014 Surgical History Colonoscopy, Dr. Sourav Perry repeat in 2025 / Diverticulosis 06-17-15 Surgical History Lithotripsy for a kidney stone Surgical History mammogram [facility] 04/[place] Surgical History vertabrae fusion 08/2018 Hospitalization History ovarian tumor removed an d left overy Hospitalization History complete hysterectomy 19 94 [facility] Other 12-20-2020 History general Narrative - Reported* Type Description Date Medical History Stress Test; [facility], normal per patient Medical History Pap and Pelvic 3 yea rs ago, OBGYN in [place] Medical History Mammogram over 5 yea rs; Normal at that time per patient Medical History CT Abdomen and Pelvi s over 5 years ago; [facility] Medical History Colonoscopy 8 years ago; in [place], normal in patient Medical History Chest X-Ray 12-15-11; normal, [facility] Medical History Echocardiogram; 12-15; [facility] Medical History Cardiolite Stress Te st 12-16-11; [facility] Medical History Check's sugar's bid Medical History Heart Catherization; [facility] Medical History breast cancer 04/2014 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 Surgical History Right Shoulder Tear and bone spur removal; [facility] 07-27-12 Surgical History Left Shoulder Rotato [...] for a kidney stone Surgical History mammogram [facility] [place] Surgical History vertabrae fusion 08/2018 Hospitalization History ovarian tumor removed an d left overy Hospitalization History complete hysterectomy [facility] Other 12-04-2020 History general Narrative - Reported* Type Description Date Medical History Stress Test; [facility], normal per patient Medical History Pap and Pelvic 3 yea rs ago, OBGYN in [place] Medical History Mammogram over 5 yea rs; Normal at that time per patient Medical History CT Abdomen and Pelvi s over 5 years ago; [facility] Medical History Colonoscopy 8 years ago; in [place], normal in patient Medical History Chest X-Ray 12-15-11; normal, [facility] Medical History Echocardiogram; 12-15; [facility] Medical History Cardiolite Stress Te st 12-16-11; [facility] Medical History Check's sugar's bid Medical History Heart Catherization; [facility] Medical History breast cancer 04/2014 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 Surgical History Right Shoulder Tear and bone spur removal; [facility] 07-27-12 Surgical History Left Shoulder Rotato [...] for a kidney stone Surgical History mammogram [facility] [place] Surgical History vertabrae fusion 08/2018 Hospitalization History ovarian tumor removed an d left overy Hospitalization History complete hysterectomy [facility] Other 11-08-2020 History general Narrative - Reported* Type Description Date Medical History Stress Test; [facility], normal per patient Medical History Pap and Pelvic 3 yea rs ago, OBGYN in [place] Medical History Mammogram over 5 yea rs; Normal at that time per patient Medical History CT Abdomen and Pelvi s over 5 years ago; [facility] Medical History Colonoscopy 8 years ago; in [place], normal in patient Medical History Chest X-Ray 12-15-11; normal, [facility] Medical History Echocardiogram; 12-15; [facility] Medical History Cardiolite Stress Te st 12-16-11; [facility] Medical History Check's sugar's bid Medical History Heart Catherization; [facility] Medical History breast cancer 04/2014 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 Surgical History Right Shoulder Tear and bone spur removal; [facility] 07-27-12 Surgical History Left Shoulder Rotato [...] for a kidney stone Surgical History mammogram [facility] [place] Surgical History vertabrae fusion 08/2018 Hospitalization History ovarian tumor removed an d left overy Hospitalization History complete hysterectomy [facility] Other 06-20-2020 History general Narrative - Reported* Type Description Date Medical History Stress Test; [facility], normal per patient Medical History Pap and Pelvic 3 yea rs ago, OBGYN in [place] Medical History Mammogram over 5 yea rs; Normal at that time per patient Medical History CT Abdomen and Pelvi s over 5 years ago; [facility] Medical History Colonoscopy 8 years ago; in [place], normal in patient Medical History Chest X-Ray 12-15-11; normal, [facility] Medical History Echocardiogram; 12-15; The [facility] Medical History Cardiolite Stress Te st 12-16-11; The [facility] Medical History Check's sugar's bid Medical History Heart Catherization; The [facility] Medical History breast cancer 04/2014 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 Surgical History Right Shoulder Tear and bone spur removal; [facility] 07-27-12 Surgical History Left Shoulder Rotato [...] for a kidney stone Surgical History [place] [facility] [place] Surgical History vertabrae fusion 08/2018 Hospitalization History ovarian tumor removed an d left overy Hospitalization History complete hysterectomy 19 94 [employer] Other 05-03-2020 History general Narrative - Reported* Type Description Date Medical History Stress Test; [facility], normal per patient Medical History Pap and Pelvic 3 yea rs ago, OBGYN in [place] Medical History Mammogram over 5 yea rs; Normal at that time per patient Medical History CT Abdomen and Pelvi s over 5 years ago; [facility] Medical History Colonoscopy 8 years ago; in [place], normal in patient Medical History Chest X-Ray 12-15-11; normal, The [facility] Medical History Echocardiogram; 12-15; [facility] Medical History Cardiolite Stress Te st 12-16-11; The [facility] Medical History Check's sugar's bid Medical History Heart Catherization; The [facility] Medical History breast cancer 04/2014 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 Surgical History Right Shoulder Tear and bone spur removal; [facility] 07-27-12 Surgical History Left Shoulder Rotato [...] for a kidney stone Surgical History mamm[place] [facility] Surgical History vertabrae fusion 08/2018 Hospitalization History ovarian tumor removed an d left overy Hospitalization History complete hysterectomy 19 94 [employer] Other 04-26-2020 History general Narrative - Reported* Type Description Date Medical History Stress Test; [facility], normal per patient Medical History Pap and Pelvic 3 yea rs ago, OBGYN in [place] Medical History Mammogram over 5 yea rs; Normal at that time per patient Medical History CT Abdomen and Pelvi s over 5 years ago; [facility] Medical History Colonoscopy 8 years ago; in [place], normal in patient Medical History Chest X-Ray 12-15-11; normal, [facility] Medical History Echocardiogram; 12-15; [facility] Medical History Cardiolite Stress Te st 12-16-11; The [facility] Medical History Check's sugar's bid Medical History Heart Catherization; The [facility] Medical History breast cancer 04/2014 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 Surgical History Right Shoulder Tear and bone spur removal; [facility] 07-27-12 Surgical History Left Shoulder Rotato [...] for a kidney stone Surgical History mammogram [facility] [place] Surgical History vertabrae fusion 08/2018 Hospitalization History ovarian tumor removed an d left overy Hospitalization History complete hysterectomy 19 94 [employer] Other 04-21-2020 History general Narrative - Reported* Type Description Date Medical History Stress Test; [facility], normal per patient Medical History Pap and Pelvic 3 yea rs ago, OBGYN in [place] Medical History Mammogram over 5 yea rs; Normal at that time per patient Medical History CT Abdomen and Pelvi s over 5 years ago; [facility] Medical History Colonoscopy 8 years ago; in [place], normal in patient Medical History Chest X-Ray 12-15-11; normal, [facility] Medical History Echocardiogram; 12-15; [facility] Medical History Cardiolite Stress Te st 12-16-11; The [facility] Medical History Check's sugar's bid Medical History Heart Catherization; The [facility] Medical History breast cancer 04/2014 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 Surgical History Right Shoulder Tear and bone spur removal; [facility] 07-27-12 Surgical History Left Shoulder Rotato [...] for a kidney stone Surgical History mamm[place] [facility] [place] Surgical History vertabrae fusion 08/2018 Hospitalization History ovarian tumor removed an d left overy Hospitalization History complete hysterectomy 19 94 [employer] Other 03-12-2020 History general Narrative - Reported* Type Description Date Medical History Stress Test; [facility], normal per patient Medical History Pap and Pelvic 3 yea rs ago, OBGYN in [place] Medical History Mammogram over 5 yea rs; Normal at that time per patient Medical History CT Abdomen and Pelvi s over 5 years ago; [facility] Medical History Colonoscopy 8 years ago; in [place], normal in patient Medical History Chest X-Ray 12-15-11; normal, [facility] Medical History Echocardiogram; 12-15; [facility] Medical History Cardiolite Stress Te st 12-16-11; The [facility] Medical History Check's sugar's bid Medical History Heart Catherization; [facility] Medical History breast cancer 04/2014 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 Surgical History Right Shoulder Tear and bone spur removal; [facility] 07-27-12 Surgical History Left Shoulder Rotato [...] for a kidney stone Surgical History mammogram [facility] [place] Surgical History vertabrae fusion 08/2018 Hospitalization History ovarian tumor removed an d left overy Hospitalization History complete hysterectomy 19 94 [employer] Other 03-07-2020 History general Narrative - Reported* Type Description Date Medical History Stress Test; [facility], normal per patient Medical History Pap and Pelvic 3 yea rs ago, OBGYN in [place] Medical History Mammogram over 5 yea rs; Normal at that time per patient Medical History CT Abdomen and Pelvi s over 5 years ago; [facility] Medical History Colonoscopy 8 years ago; in [place], normal in patient Medical History Chest X-Ray 12-15-11; normal, [facility] Medical History Echocardiogram; 12-15; [facility] Medical History Cardiolite Stress Te st 12-16-11; The [facility] Medical History Check's sugar's bid Medical History Heart Catherization; [facility] Medical History breast cancer 04/2014 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 Surgical History Right Shoulder Tear and bone spur removal; [facility] 07-27-12 Surgical History Left Shoulder Rotato [...] for a kidney stone Surgical History mammogram [facility] [place] Surgical History vertabrae fusion 08/2018 Hospitalization History ovarian tumor removed an d left overy Hospitalization History complete hysterectomy 19 94 [employer] Other 03-04-2020 History general Narrative - Reported* Type Description Date Medical History Stress Test; [facility], normal per patient Medical History Pap and Pelvic 3 yea rs ago, OBGYN in [place] Medical History Mammogram over 5 yea rs; Normal at that time per patient Medical History CT Abdomen and Pelvi s over 5 years ago; [facility] Medical History Colonoscopy 8 years ago; in [place], normal in patient Medical History Chest X-Ray 12-15-11; normal, [facility] Medical History Echocardiogram; 12-15; [facility] Medical History Cardiolite Stress Te st 12-16-11; The [facility] Medical History Check's sugar's bid Medical History Heart Catherization; [facility] Medical History breast cancer 04/2014 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 Surgical History Right Shoulder Tear and bone spur removal; [facility] 07-27-12 Surgical History Left Shoulder Rotato [...] for a kidney stone Surgical History mammogram [facility] [place] Surgical History vertabrae fusion 08/2018 Hospitalization History ovarian tumor removed an d left overy Hospitalization History complete hysterectomy 19 94 [employer] Other 02-22-2020 History general Narrative - Reported* Type Description Date Medical History Stress Test; [facility], normal per patient Medical History Pap and Pelvic 3 yea rs ago, OBGYN in [place] Medical History Mammogram over 5 yea rs; Normal at that time per patient Medical History CT Abdomen and Pelvi s over 5 years ago; [facility] Medical History Colonoscopy 8 years ago; in [place], normal in patient Medical History Chest X-Ray 12-15-11; normal, [facility] Medical History Echocardiogram; 12-15; [facility] Medical History Cardiolite Stress Te st 12-16-11; [facility] Medical History Check's sugar's bid Medical History Heart Catherization; [facility] Medical History breast cancer 04/2014 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 Surgical History Right Shoulder Tear and bone spur removal; [facility] 07-27-12 Surgical History Left Shoulder Rotato [...] for a kidney stone Surgical History mammogram [facility] [place] Surgical History vertabrae fusion 08/2018 Hospitalization History ovarian tumor removed an d left overy Hospitalization History complete hysterectomy [employer] Other 02-12-2020 History general Narrative - Reported* Type Description Date Medical History Stress Test; [facility], normal per patient Medical History Pap and Pelvic 3 yea rs ago, OBGYN in [place] Medical History Mammogram over 5 yea rs; Normal at that time per patient Medical History CT Abdomen and Pelvi s over 5 years ago; [facility] Medical History Colonoscopy 8 years ago; in [place], normal in patient Medical History Chest X-Ray 12-15-11; normal, [facility] Medical History Echocardiogram; 12-15; [facility] Medical History Cardiolite Stress Te st 12-16-11; [facility] Medical History Check's sugar's bid Medical History Heart Catherization; [facility] Medical History breast cancer 04/2014 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 Surgical History Right Shoulder Tear and bone spur removal; [facility] 07-27-12 Surgical History Left Shoulder Rotato [...] for a kidney stone Surgical History mammogram [facility] [place] Surgical History vertabrae fusion 08/2018 Hospitalization History ovarian tumor removed an d left overy Hospitalization History complete hysterectomy [facility] [facility] [employer] Other 10-27-2019 History general Narrative - Reported* Type Description Date Medical History Stress Test; [facility], normal per patient Medical History Pap and Pelvic 3 yea rs ago, OBGYN in [place] Medical History Mammogram over 5 yea rs; Normal at that time per patient Medical History CT Abdomen and Pelvi s over 5 years ago; [facility] Medical History Colonoscopy 8 years ago; in [place], normal in patient Medical History Chest X-Ray 12-15-11; normal, [facility] Medical History Echocardiogram; 12-15; [facility] Medical History Cardiolite Stress Te st 12-16-11; [facility] Medical History Check's sugar's bid Medical History Heart Catherization; [facility] Medical History breast cancer 04/2014 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 Surgical History Right Shoulder Tear and bone spur removal; [facility] 07-27-12 Surgical History Left Shoulder Rotato [...] for a kidney stone Surgical History mammogram [facility] [place] Surgical History vertabrae fusion 08/2018 Hospitalization History ovarian tumor removed an d left overy Hospitalization History complete hysterectomy 94 [employer] Other Evaluation noteNo InformationNort [employer] Other Evaluation noteNo assessment information available [facility] Work Phone: Reason for referral (narrative)* Reason appt pt needs cons ult w/ Dr. Cornejo or Viki for evaluation of right shoulder pain Diagnosis 1 Shoulder pain, right (M25.511) Referral Organization [facility] Referring Provider First Name Rin Referring Provider Last Name Lyn Referring Provider Specialty Family Prac meenu Referred Organization [facility] Referred Address ,[place], [place],[address] Referred Provider Specialty Orthopedic S urgery Referral Priority Routine General Notes HoracioFlorinda 02/08/2022 05:31:28 PM > Access Ortho referral form hard faxed with visit note, med list and insurance card. pt understands she will be contacted to schedule this appt. [employer] Other Summary Purpose Family History Relationship Condition Age at Onset Recorded Date/T rob father Pulmonary emphysema Unknown Not Specified Cerebrovascular accident (CVA) Unknown Advance Directives Advance Directive Response Recorded Date/ Time Advance Directives No February 15, 2017 3:18pm Hospital Course Note MR#: [id number] [facility] Pt. Name: Criselda Morfin Admitted: 08/23/2018 [...] CREATED AUTHOR AUTHOR'S ORGANIZ ATION 12/09/2018 [facility] DATE CREATED AUTHOR AUTHOR'S ORGANIZ ATION 08/31/2022 [facility] DATE CREATED AUTHOR AUTHOR'S ORGANIZ ATION 05/07/2023 [facility] REASON FOR VISIT (unrecogniz ed section [...] BE BASED ON THE PRIMARY CLINICAL RECORDS. [employer] provides no warranty or guarantee of the accuracy or completeness of information in this document.
[2023-10-17 13:55] LABS: Free T4 1.96 ng/dL (0.76-1.46)
[2023-10-17 14:27] LABS: Free T3 4.54 pg/mL (2.18-3.98)
[2023-10-17 14:33] LABS: Thyroid Stimulating Hormone <0.007 uIU/mL (0.358-3.740)
[2023-10-18 16:10] LABS: Thyroid Peroxidase (TPO) Ab >600 IU/mL (0-34)
== END 2023-10-17 12:31 | disposition home or self-care (01) ==
LOC: LAB 12:32
PROVIDERS: PCP Family Medicine; Visit Provider Family Medicine
DX: E05.90 Thyrotoxicosis, unspecified without thyrotoxic crisis or storm (principal)
CPT/HCPCS: 36415; 84439; 84443; 84481; 86376; 86800

== ENCOUNTER 2023-10-18 09:44 | Outpatient (OUT) | payer OTHER, SELFPAY ==
--- NOTE | 2023-10-18 09:47 | US_ITS ---
The [address] [address] Patient Name: JIMMIE MORFIN MRN: [id number] date: 1955 Sex: F Assigned Patient Location: US Current Patient Location: Accession/Order Number: [id number] Exam Date: 10/18/2023 09:50 Report Date: 10/19/2023 10:42 At the request of: IRN NICHOLSON Procedure: US thyroid EXAMINATION: US thyroid HISTORY: Hyperthyroidism COMPARISON: No relevant comparison available. FINDINGS: RIGHT LOBE: Heterogeneous thyroid gland containing multiple nodules. The largest TR 4 nodule is within mid body, 6 mm in diameter. 10 mm TR 3 nodule within superior pole and 9 mm TR 3 nodule within inferior pole. Lobe size: 4.5 x 1.8 x 1.6 cm. LEFT LOBE: Heterogeneous thyroid gland containing a 7 mm colloid cyst. Lobe size: 4.9 x 1.2 x 1.3 cm ISTHMUS: Slightly heterogeneous, but normal thickness. Thickness: 3 mm US/US thyroid IMPRESSION: 1. Heterogeneous nodular thyroid gland with increased vascularity; nonspecific. Follow-up ultrasound evaluation in one year is recommended. TR4 (moderately suspicious): If > 1.0 cm, follow-up ultrasound in 1, 2, 3, and 5 years. If > 1.5 cm, fine needle aspiration (FNA). TR3 (mildly suspicious): > 1.5 cm, follow-up ultrasound in 1, 3, and 5 years. > 2.5 cm, fine needle aspiration. Electronically authenticated by: ARELY BRO Date: 10/19/2023 10:42
--- OUTSIDE RECORDS SUMMARY | 2023-10-18 10:00 | XMS_ITS | CCD ---
Author Organization [facility] Care Team Providers Care Pulmonary Disease Specialist Name Role Phone Selin Jean Attending Unavailable Ted, Selin Pastor Attending Unavailable CHUCHO HONEYCUTT Attending Unavailable Ted, Selin Pastor Attending Unavailable UNKNOWN, PROVIDER Admitting Unavailable SELF, REFERRED Referring Unavailable SELF, REFERRED Primary Care Unavailable CHIP CEDILLO Attending Unavailable DE Procedure Practitioner Unavailab le UNKNOWN, PROVIDER Surgeon [...] DR GAR Primary Care Unavailable GIRVIN, DR AGR Admitting Unavailable GIRVIN, DR GAR Primary Care [...] 1 tablet by mouth once daily Vitamin [id number] Acid Active 1 TAB PO Daily May [...] kidney disease Other aftercare (1 source) Other longterm (current) drug therapy; 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: [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] Onset: 05-03-2022 Episodic Other aftercare (1 source) care home (current) use of oral hypoglycemic drugs; 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: [PENITENTIARY USE ORAL HYPOGLYCEMIC DX] Onset: 05-03-2022 Episodic Pneumonia (except that caused by tuberculosis or sexually transmitted disease) (1 source) Bronchopneumonia, unspecified organism; 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: [BRONCHOPNEUMONIA UNS ORGANISM] Onset: 05-03-2022 Episodic Unclassified (1 source) COUGH, UNSPECIFIED; 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: [COUGH, UNSPECIFIED] Onset: 04-30-2022 Results Test Name Value Interpretation Reference Range Facility MM screening mammo BI w/CADo n 05-03-2023 MM screening mammo BI w/CAD [facility] [address] [place] [address] Mammography Report Signed Patient: Leslee Morfin MR#: [id number] : 1955 Acct:[id number] Age/Sex: 67 / F ADM Date: 05/03/23 Loc: [place] Room: Type: [facility] Attending Dr: Rin Nicholson DO Copies to: [...] Carmela Cuevas M.D.05/03/2023 1:52 PM Dictation Location: [facility] Transcribed By: [facility] 05/03/23 1352 Dictated By: Carmela Cuevas MD 05/03/23 1349 Signed By: 05/03/23 1352 [facility] PROF CHEM 8 (BAS METB)on Anion gap [Moles/Vol] 14.4 mmol/L Normal [facility] Comment on above: Performed By: #### B MP #### [facility] [address] [place] [address] Dr. Raf Pearl Calcium [Mass/Vol] 9.3 mg/dL Normal 8.5-10.1 [facility] Comment on above: Performed By: #### B MP #### [facility] [address] [address] [address] Raf Pearl Chloride [Moles/Vol] 102 mmol/L Normal 98-107 [facility] Comment on above: Performed By: #### B MP #### [facility] [address] [address] [address] Raf Pearl CO2 [Moles/Vol] 26.9 mmol/L Normal 21.0-32.0 [facility] Comment on above: Performed By: #### B MP #### [facility] [address] [address] [address] Raf Pearl Creatinine [Mass/Vol] 1.32 mg/dL Critically high 0.55-1.02 [facility] Comment on above: Performed By: #### B MP #### [facility] [address] [place] [address] Dr. Raf Pearl EGFR-AF BERMUDIAN 49 mL/min/1.73m2 Critically low >=60 [facility] Comment on above: Performed By: #### B MP #### [facility] [address] [place] [address] Dr. Raf Pearl EGFR-NON AF BERMUDIAN 40 mL/min/1.73m2 Critically low >=60 [facility] Comment on above: Performed By: #### B MP #### [facility] [address] [address] [address] Raf Pearl Glucose [Mass/Vol] 151 mg/dL Critically high 74-106 T [facility] Comment on above: Performed By: #### B MP #### [facility] [address] [address] [address] Raf Pearl Potassium [Moles/Vol] 4.3 mmol/L Normal 3.5-5.1 [facility] Comment on above: Performed By: #### B MP #### [facility] [address] [address] [address] Raf Pearl Sodium [Moles/Vol] 139 mmol/L Normal 136-145 [facility] Comment on above: Performed By: #### B MP #### [facility] [address] [address] [address] Raf Pearl Urea nitrogen [Mass/Vol] 17.0 mg/dL Normal 7.0-18.0 [facility] Comment on above: Performed By: #### B MP #### [facility] [address] [address] [address] Raf Pearl Urea nitrogen/Creatinine [Mass ratio] 12.9 mg/mg Normal [facility] Comment on above: Performed By: #### B MP #### [facility] [address] [address] [address] Raf Pearl PROF CHEM 8 (BAS METB)on Anion gap [Moles/Vol] 9.7 mmol/L Normal [facility] Comment on above: Performed By: #### B MP #### [facility] [address] [address] [address] Raf Pearl Calcium [Mass/Vol] 9.1 mg/dL Normal 8.5-10.1 [facility] Comment on above: Performed By: #### B MP #### [facility] [address] [address] [address] Raf Pearl Chloride [Moles/Vol] 100 mmol/L Normal 98-107 [facility] Comment on above: Performed By: #### B MP #### [facility] [address] [address] [address] Raf Pearl CO2 [Moles/Vol] 28.0 mmol/L Normal 21.0-32.0 [facility] Comment on above: Performed By: #### B MP #### [facility] [address] [address] [address] Raf Pearl Creatinine [Mass/Vol] 1.18 mg/dL Critically high 0.55-1.02 [facility] Comment on above: Performed By: #### B MP #### [facility] [address] [place] [address] Dr. Raf Pearl EGFR-AF BERMUDIAN 56 mL/min/1.73m2 Critically low >=60 [facility] Comment on above: Performed By: #### B MP #### [facility] [address] [place] [address] Dr. Raf Pearl EGFR-NON AF BERMUDIAN 46 mL/min/1.73m2 Critically low >=60 [facility] Comment on above: Performed By: #### B MP #### [facility] [address] [place] [address] Dr. Raf Pearl Glucose [Mass/Vol] 113 mg/dL Critically high 74-106 T [facility] Comment on above: Performed By: #### B MP #### [facility] [address] [address] [address] Raf Pearl Potassium [Moles/Vol] 3.7 mmol/L Normal 3.5-5.1 [facility] Comment on above: Performed By: #### B MP #### [facility] [address] [place] [address] Dr. Raf Pearl Sodium [Moles/Vol] 134 mmol/L Critically low 136-145 Th [facility] Comment on above: Performed By: #### B MP #### [facility] [address] [place] [address] Dr. Raf Pearl Urea nitrogen [Mass/Vol] 13.0 mg/dL Normal 7.0-18.0 [facility] Comment on above: Performed By: #### B MP #### [facility] [address] [place] [address] Dr. Raf Pearl Urea nitrogen/Creatinine [Mass ratio] 11.0 mg/mg Normal [facility] Comment on above: Performed By: #### B MP #### [facility] [address] [place] [address] Dr. Raf Pearl FOLATE ([facility])on 3 Folate >20.0 Normal >3.0 [facility] Comment on above: Result Comment: A se rum folate concentration of less than 3.1 ng/mL is considered to represent clinical deficiency. Performed By: #### F OLALC #### [facility] [address] [place] [address] Dr. Raf Pearl CBC AUTO DIFFon 07-31-2022 BASO # 0.1 103/ul Normal 0.0-0.1 [facility] Comment on above: Performed By: #### M ALBR #### [facility] [address] [place] [address] Dr. Raf Pearl Basophils/100 WBC (Bld) 1.3 % Normal 0.2-2.0 [facility] Comment on above: Performed By: #### M ALBR #### [facility] [address] [place] [address] Dr. Raf Pearl EO # 0.4 103/ul Normal 0.0-0.7 [facility] Comment on above: Performed By: #### M ALBR #### [facility] [address] [place] [address] Dr. Raf Pearl Eosinophils/100 WBC (Bld) 4.5 % Normal 0.9-7.0 [facility] Comment on above: Performed By: #### M ALBR #### [facility] [address] [place] [address] Dr. Raf Pearl Erythrocyte distribution width (RBC) [Ratio] 13.2 % Normal 11.0-15.0 [facility] Comment on above: Performed By: #### M ALBR #### [facility] [address] [place] [address] Dr. Raf Pearl Hematocrit (Bld) [Volume fraction] 33.8 % Critically low 36.0-48.0 [facility] Comment on above: Performed By: #### M ALBR #### [facility] [address] [place] [address] Dr. Raf Pearl Hemoglobin (Bld) [Mass/Vol] 11.5 g/dL Critically low 12.0-16.0 [facility] Comment on above: Performed By: #### M ALBR #### [facility] [address] [place] [address] Dr. Raf Pearl IG # 0.02 10e3/ul Normal 0.00-0.03 [facility] Comment on above: Performed By: #### M ALBR #### [facility] [address] [place] [address] Dr. Raf Pearl IG % 0.2 % Normal 0.0-0.5 [facility] Comment on above: Performed By: #### M ALBR #### [facility] [address] [place] [address] Dr. Raf Pearl LYMPH # 2.6 103/ul Normal 1.2-3.8 [facility] Comment on above: Performed By: #### M ALBR #### [facility] [address] [place] [address] Dr. Raf Pearl Lymphocytes/100 WBC (Bld) 31.6 % Normal 20.5-60.0 [facility] Comment on above: Performed By: #### M ALBR #### [facility] [address] [place] [address] Dr. Raf Pearl MANUAL DIFF REQ NO Normal [facility] Comment on above: Performed By: #### M ALBR #### [facility] [address] [place] [address] Dr. Raf Pearl MCH (RBC) [Entitic mass] 31.1 pg Normal 26.7-34.0 [facility] Comment on above: Performed By: #### M ALBR #### [facility] [address] [address] [address] Raf Pearl MCHC (RBC) [Mass/Vol] 34.0 g/dL Normal 29.9-35.2 [facility] Comment on above: Performed By: #### M ALBR #### [facility] [address] [place] [address] Dr. Raf eParl MCV (RBC) [Entitic vol] 91.4 fL Normal 81.0-99.0 [facility] Comment on above: Performed By: #### M ALBR #### [facility] [address] [place] [address] Dr. Raf Pearl MONO # 0.6 103/ul Normal 0.3-0.8 [facility] Comment on above: Performed By: #### M ALBR #### [facility] [address] [place] [address] Dr. Raf Pearl Monocytes/100 WBC (Bld) 7.2 % Normal 1.7-12.0 [facility] Comment on above: Performed By: #### M ALBR #### [facility] [address] [place] [address] Dr. Raf Pearl NEUT # 4.6 103/ul Normal 1.4-6.5 [facility] Comment on above: Performed By: #### M ALBR #### [facility] [address] [place] [address] Dr. Raf Pearl Neutrophils/100 WBC (Bld) 55.2 % Normal 43.0-75.0 [facility] Comment on above: Performed By: #### M ALBR #### [facility] [address] [place] [address] Dr. Raf Pearl Platelet mean volume (Bld) [Entitic vol] 10.0 fL Normal 9.5-13.5 [facility] Comment on above: Performed By: #### M ALBR #### [facility] [address] [place] [address] Dr. Raf Pearl PLT 352 103/ul Normal 150-450 [facility] Comment on above: Performed By: #### M ALBR #### [facility] [address] [address] [address] Raf Pearl RBC 3.70 106/ul Critically low 4.20-5.[address] [facility] Comment on above: Performed By: #### M ALBR #### [facility] [address] [address] [address] Raf Pearl WBC 8.2 103/ul Normal 4.0-11.0 [facility] Comment on above: Performed By: #### M ALBR #### [facility] [address] [address] [address] Raf Pearl CULTURE URINEon 07-31-2022 CULTURE URINE Culture Observations: NO GROWTH. Normal [facility] Comment on above: Performed By: #### B MP #### [facility] [address] [place] [address] Dr. Raf Pearl GLYCOHEMOGLOBIN A1Con 2022 ADA RECOMMENDATION SEE BELOW Normal [facility] Comment on above: Result Comment: ADA RECOMMENDED LIMIT 4.0 - 6.0 ADA THERAPEUTIC TARGET < 7.0 ACTION SUGGESTED > 7.0 Performed By: #### B MP #### [facility] [address] [place] [address] Dr. Raf Pearl Glucose [Mass/Vol] 140 mg/dL Normal [facility] Comment on above: Performed By: #### B MP #### [facility] [address] [place] [address] Dr. Raf Pearl HbA1c (Bld) [Mass fraction] 6.5 % Critically high 4.5-6.2 [facility] Comment on above: Performed By: #### B MP #### [facility] [address] [place] [address] Dr. Raf Pearl LIPID PROFILEon 07-31-2022 CHOL-HDL RATIO NORM SEE BELOW Normal [facility] Comment on above: Result Comment: 3.3 - 4.4 LOW RISK 4.4 - 7.1 AVERAGE RISK 7.1 - 11.0 MODERATE RISK >11.0 HIGH RISK Performed By: #### C MP, LIPID, TSH #### [facility] [address] [address] [address] Raf Pearl Cholesterol [Mass/Vol] 166 mg/dL Normal <=200 [facility] Comment on above: Performed By: #### C MP, LIPID, TSH #### [facility] [address] [address] [address] Raf Pearl Cholesterol in HDL [Mass/Vol] 57 mg/dL Normal 40-60 [facility] Comment on above: Performed By: #### C MP, LIPID, TSH #### [facility] [address] [address] [address] Raf Pearl Cholesterol in LDL [Mass/Vol] 91.4 mg/dL Normal [facility] Comment on above: Performed By: #### C MP, LIPID, TSH #### [facility] [address] [address] [address] Raf Pearl Cholesterol.total/Ch olesterol in HDL [Mass ratio] 2.9 {ratio} Normal [facility] Comment on above: Performed By: #### C MP, LIPID, TSH #### [facility] [address] [address] [address] Raf Pearl HDL NORMAL > or = 60 mg/dl - LOW CARDIOVASCULAR RISK <40 mg/dl - HIGH CARDIOVASCULAR RISK Normal [facility] Comment on above: Performed By: #### C MP, LIPID, TSH #### [facility] [address] [address] [address] Raf Pearl LDL CALC NORMAL SEE BELOW Normal [facility] Comment on above: Result Comment: <100 mg/dl OPTIMAL 100 - 129 mg/dl NEAR OR ABOVE OPTIMAL 130 - 159 mg/dl BORDERLINE HIGH 160 - 189 mg/dl HIGH >190 mg/dl VERY HIGH Performed By: #### C MP, LIPID, TSH #### [facility] [address] [address] [address] Raf Pearl Triglyceride [Mass/Vol] 88 mg/dL Normal <=150 [facility] Comment on above: Performed By: #### C MP, LIPID, TSH #### [facility] [address] [address] [address] Raf Pearl VLDL CALC 17.6 mg/dL Normal [facility] Comment on above: Performed By: #### C MP, LIPID, TSH #### [facility] [address] [place] [address] Dr. Raf Pearl MICROALBUMIN, RAND URon 07-17 mALB <1.3 Normal <=30.0 [facility] Comment on above: Performed By: #### M ALBR #### [facility] [address] [address] [address] Raf Pearl PROF 14(COMP METB)on 023 Albumin [Mass/Vol] 3.6 g/dL Normal 3.4-5.0 [facility] Comment on above: Performed By: #### C MP, LIPID, TSH #### [facility] [address] [place] [address] Dr. Raf Pearl Albumin/Globulin [Mass ratio] 1.0 {ratio} Normal [facility] Comment on above: Performed By: #### C MP, LIPID, TSH #### [facility] [address] [place] [address] Dr. Raf Pearl ALP [Catalytic activity/Vol] 70 U/L Normal 46-116 [facility] Comment on above: Performed By: #### C MP, LIPID, TSH #### [facility] [address] [place] [address] Dr. Raf Pearl ALT [Catalytic activity/Vol] 22 U/L Normal 14-59 [facility] Comment on above: Performed By: #### C MP, LIPID, TSH #### [facility] [address] [place] [address] Dr. Raf Pearl Anion gap [Moles/Vol] 11.8 mmol/L Normal [facility] Comment on above: Performed By: #### C MP, LIPID, TSH #### [facility] [address] [place] [address] Dr. Raf Pearl AST [Catalytic activity/Vol] 19 U/L Normal 15-37 [facility] Comment on above: Performed By: #### C MP, LIPID, TSH #### [facility] [address] [address] [address] Raf Pearl Bilirubin [Mass/Vol] 0.3 mg/dL Normal 0.2-1.0 [facility] Comment on above: Performed By: #### C MP, LIPID, TSH #### [facility] [address] [address] [address] Raf Pearl Calcium [Mass/Vol] 9.0 mg/dL Normal 8.5-10.1 [facility] Comment on above: Performed By: #### C MP, LIPID, TSH #### [facility] [address] [address] [address] Raf Pearl Chloride [Moles/Vol] 104 mmol/L Normal 98-107 [facility] Comment on above: Performed By: #### C MP, LIPID, TSH #### [facility] [address] [place] [address] Dr. Raf Pearl CO2 [Moles/Vol] 28.6 mmol/L Normal 21.0-32.0 [facility] Comment on above: Performed By: #### C MP, LIPID, TSH #### [facility] [address] [address] [address] Raf Pearl Creatinine [Mass/Vol] 1.48 mg/dL Critically high 0.55-1.02 [facility] Comment on above: Performed By: #### C MP, LIPID, TSH #### [facility] [address] [address] [address] Raf Pearl EGFR-AF BERMUDIAN 43 mL/min/1.73m2 Critically low >=60 [facility] Comment on above: Performed By: #### C MP, LIPID, TSH #### [facility] [address] [address] [address] Raf Pearl EGFR-NON AF BERMUDIAN 35 mL/min/1.73m2 Critically low >=60 [facility] Comment on above: Performed By: #### C MP, LIPID, TSH #### [facility] [address] [address] [address] Raf Pearl Globulin (S) [Mass/Vol] 3.5 g/dL Normal [facility] Comment on above: Performed By: #### C MP, LIPID, TSH #### [facility] [address] [address] [address] Raf Pearl Glucose [Mass/Vol] 102 mg/dL Normal 74-106 [facility] Comment on above: Performed By: #### C MP, LIPID, TSH #### [facility] [address] [place] [address] Dr. Raf Pearl Potassium [Moles/Vol] 4.4 mmol/L Normal 3.5-5.1 [facility] Comment on above: Performed By: #### C MP, LIPID, TSH #### [facility] [address] [place] [address] Dr. Raf Pearl Protein [Mass/Vol] 7.1 g/dL Normal 6.4-8.2 [facility] Comment on above: Performed By: #### C MP, LIPID, TSH #### [facility] [address] [place] [address] Dr. Raf Pearl Sodium [Moles/Vol] 140 mmol/L Normal 136-145 [facility] Comment on above: Performed By: #### C MP, LIPID, TSH #### [facility] [address] [place] [address] Dr. Raf Pearl Urea nitrogen [Mass/Vol] 21.0 mg/dL Critically high 7.0-18.0 [facility] Comment on above: Performed By: #### C MP, LIPID, TSH #### [facility] [address] [place] [address] Dr. Raf Pearl Urea nitrogen/Creatinine [Mass ratio] 14.2 mg/mg Normal [facility] Comment on above: Performed By: #### C MP, LIPID, TSH #### [facility] [address] [place] [address] Dr. Raf Pearl TSHon 07-31-2022 TSH 2.298 uIU/mL Normal 0.358-3.740 [facility] Comment on above: Performed By: #### C MP, LIPID, TSH #### [facility] [address] [place] [address] Dr. Raf Pearl UA RANDOM W/MICROSCOPICon BACTERIA NONE SEEN Normal NONE SEEN [facility] Comment on above: Performed By: #### B MP #### [facility] [address] [place] [address] Dr. Raf Pearl Bilirubin Ql (U) Negative Normal NEGATIVE [facility] Comment on above: Performed By: #### B MP #### [facility] [address] [place] [address] Dr. Raf Pearl CAST NONE SEEN Normal NONE SEEN [facility] Comment on above: Performed By: #### B MP #### [facility] [address] [place] [address] Dr. Raf Pearl Clarity (U) CLEAR Normal CLEAR [facility] Comment on above: Performed By: #### B MP #### [facility] [address] [place] [address] Dr. Raf Pearl Color (U) LT. YELLOW Normal YELLOW [facility] Comment on above: Performed By: #### B MP #### [facility] [address] [place] [address] Dr. Raf Pearl Crystals LM Nom (Urine sed) NONE SEEN Normal NONE SEEN [facility] Comment on above: Performed By: #### B MP #### [facility] [address] [place] [address] Dr. Raf Pearl Epithelial cells LM Ql (Urine sed) NONE SEEN Normal NONE SEEN /RARE [facility] Comment on above: Performed By: #### B MP #### [facility] [address] [place] [address] Dr. Raf Pearl Glucose Ql (U) Negative Normal NEGATIVE [facility] Comment on above: Performed By: #### B MP #### [facility] [address] [place] [address] Dr. Raf Pearl Hemoglobin Ql (U) Negative Normal NEGATIVE [facility] Comment on above: Performed By: #### B MP #### [facility] [address] [place] [address] Dr. Raf Pearl Ketones Ql (U) Negative Normal NEGATIVE [facility] Comment on above: Performed By: #### B MP #### [facility] [address] [place] [address] Dr. Raf Pearl LEUKOCYTES Negative Normal NEGATIVE [facility] Comment on above: Performed By: #### B MP #### [facility] [address] [place] [address] Dr. Raf Pearl MUCOUS NONE SEEN Normal NONE SEEN [facility] Comment on above: Performed By: #### B MP #### [facility] [address] [place] [address] Dr. Raf Pearl Nitrite Ql (U) Negative Normal NEGATIVE [facility] Comment on above: Performed By: #### B MP #### [facility] [address] [place] [address] Dr. Raf Pearl pH (U) 7.0 [pH] Normal 5-9 [facility] Comment on above: Performed By: #### B MP #### [facility] [address] [place] [address] Dr. Raf Pearl RBC 0-2 Normal 0-2 [facility] Comment on above: Performed By: #### B MP #### [facility] [address] [place] [address] Dr. Raf Pearl SPEC GRAVITY <=1.005 Abnormal 1.005-<=1.[address] [facility] Comment on above: Performed By: #### B MP #### [facility] [address] [place] [address] Dr. Raf Pearl UA PROTEIN Negative Normal NEGATIVE/ TRACE [facility] Comment on above: Performed By: #### B MP #### [facility] [address] [place] [address] Dr. Raf Pearl Urobilinogen Qn (U) 0.2 {Tawana'U}/dL Normal 0.2 - 1. 0 [facility] Comment on above: Performed By: #### B MP #### [facility] [address] [place] [address] Dr. Raf Pearl WBC NONE SEEN Normal NONE SEEN [facility] Comment on above: Performed By: #### B MP #### [facility] [address] [address] [address] Raf Pearl VITAMIN B12on 07-31-2022 Cobalamin (Vitamin B12) [Mass/Vol] 600.0 pg/mL Normal 193.0-986.0 [facility] Comment on above: Performed By: #### B MP #### [facility] [address] [address] [address] Raf Pearl Covid-19 PCR ([facility])on 04-18 SARS-CoV-2 (COVID-19) RNA KHANH+probe Ql (Unsp spec) Not detected Normal NOT DETECTED [facility] Comment on above: Result Comment: When diagnostic [...] for this test is supported by the Transit Coach Operator of Health and Human Service's declaration that [...] used). Performed By: #### C VDTBH #### [facility] [address] [place] [address] Dr. Raf Pearl INFLUENZA A AND B AGon 04-30 INFLUANEGH SEE BELOW Normal [facility] Comment on above: Result Comment: Nega tive for Flu A protein angiten. Infection due to Flu A cannot be ruled out. Flu A angiten in the sample may be below the detection limit of the test. Performed By: #### B MP #### [facility] [address] [address] [address] Raf Pearl INFLUBNEGH SEE BELOW Normal [facility] Comment on above: Result Comment: Nega tive for Flu B protein antigen. Infection due to Flu B cannot be ruled out. Flu B antigen in the sample may be below the detection limit of the test. Performed By: #### B MP #### [facility] [address] [place] [address] Dr. Raf Pearl INFLUENZA A AG Negative Normal NEGATIVE SEE COMMENT [facility] Comment on above: Performed By: #### B MP #### [facility] [address] [place] [address] Dr. Raf Pearl INFLUENZA B AG Negative Normal NEGATIVE SEE COMMENT [facility] Comment on above: Performed By: #### B MP #### [facility] [address] [place] [address] Dr. Raf Pearl XR CHEST 2 Von [...] BUDDY LEMOS Date: 2022-04-30 19:38 Normal [facility] PROF CHEM 8 (BAS METB)on Anion gap [Moles/Vol] 12.6 mmol/L Normal [facility] Comment on above: Performed By: #### B MP #### [facility] [address] [place] [address] Dr. Raf Pearl Calcium [Mass/Vol] 9.4 mg/dL Normal 8.5-10.1 [facility] Comment on above: Performed By: #### B MP #### [facility] [address] [place] [address] Dr. Raf Pearl Chloride [Moles/Vol] 99 mmol/L Normal 98-107 [facility] Comment on above: Performed By: #### B MP #### [facility] [address] [place] [address] Dr. Raf Pearl CO2 [Moles/Vol] 29.3 mmol/L Normal 21.0-32.0 [facility] Comment on above: Performed By: #### B MP #### [facility] [address] [address] [address] Raf Pearl Creatinine [Mass/Vol] 1.15 mg/dL Critically high 0.55-1.02 [facility] Comment on above: Performed By: #### B MP #### [facility] [address] [address] [address] Raf Pearl EGFR-AF BERMUDIAN 57 mL/min/1.73m2 Critically low >=60 [facility] Comment on above: Performed By: #### B MP #### [facility] [address] [address] [address] Raf Pearl EGFR-NON AF BERMUDIAN 47 mL/min/1.73m2 Critically low >=60 [facility] Comment on above: Performed By: #### B MP #### [facility] [address] [address] [address] Raf Pearl Glucose [Mass/Vol] 146 mg/dL Critically high 74-106 [facility] Comment on above: Performed By: #### B MP #### [facility] [address] [address] [address] Raf Pearl Potassium [Moles/Vol] 3.9 mmol/L Normal 3.5-5.1 [facility] Comment on above: Performed By: #### B MP #### [facility] [address] [address] [address] Raf Pearl Sodium [Moles/Vol] 137 mmol/L Normal 136-145 [facility] Comment on above: Performed By: #### B MP #### [facility] [address] [address] [address] Raf Pearl Urea nitrogen [Mass/Vol] 10.0 mg/dL Normal 7.0-18.0 [facility] Comment on above: Performed By: #### B MP #### [facility] [address] [address] [address] Raf Pearl Urea nitrogen/Creatinine [Mass ratio] 8.7 mg/mg Normal [facility] Comment on above: Performed By: #### B MP #### [facility] [address] [place] [address] Dr. Raf Pearl CBC AUTO DIFFon 01-22-2022 BASO # 0.1 103/ul Normal 0.0-0.1 [facility] Comment on above: Performed By: #### B MP #### [facility] [address] [place] [address] Dr. Raf Pearl Basophils/100 WBC (Bld) 1.5 % Normal 0.2-2.0 [facility] Comment on above: Performed By: #### B MP #### [facility] [address] [place] [address] Dr. Raf Pearl EO # 0.3 103/ul Normal 0.0-0.7 [facility] Comment on above: Performed By: #### B MP #### [facility] [address] [place] [address] Dr. Raf Pearl Eosinophils/100 WBC (Bld) 5.3 % Normal 0.9-7.0 [facility] Comment on above: Performed By: #### B MP #### [facility] [address] [place] [address] Dr. Raf Pearl Erythrocyte distribution width (RBC) [Ratio] 13.1 % Normal 11.0-15.0 [facility] Comment on above: Performed By: #### B MP #### [facility] [address] [place] [address] Dr. Raf Pearl Hematocrit (Bld) [Volume fraction] 36.4 % Normal 36.0-48.0 [facility] Comment on above: Performed By: #### B MP #### [facility] [address] [place] [address] Dr. Raf Pearl Hemoglobin (Bld) [Mass/Vol] 12.4 g/dL Normal 12.0-16.0 [facility] Comment on above: Performed By: #### B MP #### [facility] [address] [place] [address] Dr. Raf Pearl IG # 0.02 10e3/ul Normal 0.00-0.03 [facility] Comment on above: Performed By: #### B MP #### [facility] [address] [place] [address] Dr. Raf Pearl IG % 0.3 % Normal 0.0-0.5 [facility] Comment on above: Performed By: #### B MP #### [facility] [address] [address] [address] Raf Pearl LYMPH # 2.0 103/ul Normal 1.2-3.8 [facility] Comment on above: Performed By: #### B MP #### [facility] [address] [place] [address] Dr. Raf Pearl Lymphocytes/100 WBC (Bld) 31.6 % Normal 20.5-60.0 [facility] Comment on above: Performed By: #### B MP #### [facility] [address] [place] [address] Dr. Raf Pearl MANUAL DIFF REQ NO Normal [facility] Comment on above: Performed By: #### B MP #### [facility] [address] [place] [address] Dr. Raf Pearl MCH (RBC) [Entitic mass] 31.4 pg Normal 26.7-34.0 [facility] Comment on above: Performed By: #### B MP #### [facility] [address] [place] [address] Dr. Raf Pearl MCHC (RBC) [Mass/Vol] 34.1 g/dL Normal 29.9-35.2 [facility] Comment on above: Performed By: #### B MP #### [facility] [address] [place] [address] Dr. Raf Pearl MCV (RBC) [Entitic vol] 92.2 fL Normal 81.0-99.0 [facility] Comment on above: Performed By: #### B MP #### [facility] [address] [place] [address] Dr. Raf Pearl MONO # 0.4 103/ul Normal 0.3-0.8 [facility] Comment on above: Performed By: #### B MP #### [facility] [address] [place] [address] Dr. Raf Pearl Monocytes/100 WBC (Bld) 6.8 % Normal 1.7-12.0 [facility] Comment on above: Performed By: #### B MP #### [facility] [address] [place] [address] Dr. Raf Pearl NEUT # 3.4 103/ul Normal 1.4-6.5 [facility] Comment on above: Performed By: #### B MP #### [facility] [address] [place] [address] Dr. Raf Pearl Neutrophils/100 WBC (Bld) 54.5 % Normal 43.0-75.0 [facility] Comment on above: Performed By: #### B MP #### [facility] [address] [place] [address] Dr. Raf Pearl Platelet mean volume (Bld) [Entitic vol] 9.7 fL Normal 9.5-13.5 [facility] Comment on above: Performed By: #### B MP #### [facility] [address] [place] [address] Dr. Raf Pearl PLT 384 103/ul Normal 150-450 [facility] Comment on above: Performed By: #### B MP #### [facility] [address] [place] [address] Dr. Raf Pearl RBC 3.95 106/ul Critically low 4.20-5.[address] [facility] Comment on above: Performed By: #### B MP #### [facility] [address] [place] [address] Dr. Raf Pearl WBC 6.2 103/ul Normal 4.0-11.0 [facility] Comment on above: Performed By: #### B MP #### [facility] [address] [place] [address] Dr. Raf Pearl GLYCOHEMOGLOBIN A1Con 2021 ADA RECOMMENDATION SEE BELOW Normal [facility] Comment on above: Result Comment: ADA RECOMMENDED LIMIT 4.0 - 6.0 ADA THERAPEUTIC TARGET < 7.0 ACTION SUGGESTED > 7.0 Performed By: #### A 1C #### [facility] [address] [place] [address] Dr. Raf Pearl Glucose [Mass/Vol] 137 mg/dL Normal [facility] Comment on above: Performed By: #### A 1C #### [facility] [address] [place] [address] Dr. Raf Pearl HbA1c (Bld) [Mass fraction] 6.4 % Critically high 4.5-6.2 [facility] Comment on above: Performed By: #### A 1C #### [facility] [address] [place] [address] Dr. Raf Pearl LIPID PROFILEon 01-22-2022 CHOL-HDL RATIO NORM SEE BELOW Normal [facility] Comment on above: Result Comment: 3.3 - 4.4 LOW RISK 4.4 - 7.1 AVERAGE RISK 7.1 - 11.0 MODERATE RISK >11.0 HIGH RISK Performed By: #### B MP #### [facility] [address] [place] [address] Dr. Raf Pearl Cholesterol [Mass/Vol] 165 mg/dL Normal <=200 [facility] Comment on above: Performed By: #### B MP #### [facility] [address] [place] [address] Dr. Raf Pearl Cholesterol in HDL [Mass/Vol] 66 mg/dL Critically high 40-60 [facility] Comment on above: Performed By: #### B MP #### [facility] [address] [place] [address] Dr. Raf Pearl Cholesterol in LDL [Mass/Vol] 87.8 mg/dL Normal [facility] Comment on above: Performed By: #### B MP #### [facility] [address] [place] [address] Dr. Raf Pearl Cholesterol.total/Ch olesterol in HDL [Mass ratio] 2.5 {ratio} Normal [facility] Comment on above: Performed By: #### B MP #### [facility] [address] [address] [address] Raf Pearl HDL NORMAL > or = 60 mg/dl - LOW CARDIOVASCULAR RISK <40 mg/dl - HIGH CARDIOVASCULAR RISK Normal [facility] Comment on above: Performed By: #### B MP #### [facility] [address] [address] [address] Raf Pearl LDL CALC NORMAL SEE BELOW Normal [facility] Comment on above: Result Comment: <100 mg/dl OPTIMAL 100 - 129 mg/dl NEAR OR ABOVE OPTIMAL 130 - 159 mg/dl BORDERLINE HIGH 160 - 189 mg/dl HIGH >190 mg/dl VERY HIGH Performed By: #### B MP #### [facility] [address] [address] [address] Raf Pearl Triglyceride [Mass/Vol] 56 mg/dL Normal <=150 [facility] Comment on above: Performed By: #### B MP #### [facility] [address] [place] [address] Dr. Raf Pearl VLDL CALC 11.2 mg/dL Normal [facility] Comment on above: Performed By: #### B MP #### [facility] [address] [address] [address] Raf Pearl PROF 14(COMP METB)on 022 Albumin [Mass/Vol] 4.0 g/dL Normal 3.4-5.0 [facility] Comment on above: Performed By: #### B MP #### [facility] [address] [place] [address] Dr. Raf Pearl Albumin/Globulin [Mass ratio] 1.1 {ratio} Normal [facility] Comment on above: Performed By: #### B MP #### [facility] [address] [address] [address] Raf Pearl ALP [Catalytic activity/Vol] 81 U/L Normal 46-116 [facility] Comment on above: Performed By: #### B MP #### [facility] [address] [place] [address] Dr. Raf Pearl ALT [Catalytic activity/Vol] 26 U/L Normal 14-59 [facility] Comment on above: Performed By: #### B MP #### [facility] [address] [address] [address] Raf Pearl Anion gap [Moles/Vol] 12.1 mmol/L Normal [facility] Comment on above: Performed By: #### B MP #### [facility] [address] [address] [address] Raf Pearl AST [Catalytic activity/Vol] 16 U/L Normal 15-37 [facility] Comment on above: Performed By: #### B MP #### [facility] [address] [address] [address] Raf Pearl Bilirubin [Mass/Vol] 0.3 mg/dL Normal 0.2-1.0 [facility] Comment on above: Performed By: #### B MP #### [facility] [address] [address] [address] Raf Pearl Calcium [Mass/Vol] 9.2 mg/dL Normal 8.5-10.1 [facility] Comment on above: Performed By: #### B MP #### [facility] [address] [address] [address] Raf Pearl Chloride [Moles/Vol] 103 mmol/L Normal 98-107 [facility] Comment on above: Performed By: #### B MP #### [facility] [address] [address] [address] Raf Pearl CO2 [Moles/Vol] 26.9 mmol/L Normal 21.0-32.0 [facility] Comment on above: Performed By: #### B MP #### [facility] [address] [address] [address] Raf Pearl Creatinine [Mass/Vol] 1.17 mg/dL Critically high 0.55-1.02 [facility] Comment on above: Performed By: #### B MP #### [facility] [address] [address] [address] Rfa Pearl EGFR-AF BERMUDIAN 56 mL/min/1.73m2 Critically low >=60 [facility] Comment on above: Performed By: #### B MP #### [facility] [address] [address] [address] Raf Pearl EGFR-NON AF BERMUDIAN 46 mL/min/1.73m2 Critically low >=60 [facility] Comment on above: Performed By: #### B MP #### [facility] [address] [address] [address] Raf Pearl Globulin (S) [Mass/Vol] 3.6 g/dL Normal [facility] Comment on above: Performed By: #### B MP #### [facility] [address] [address] [address] Raf Pearl Glucose [Mass/Vol] 141 mg/dL Critically high 74-106 T [facility] Comment on above: Performed By: #### B MP #### [facility] [address] [address] [address] Raf Pearl Potassium [Moles/Vol] 4.0 mmol/L Normal 3.5-5.1 [facility] Comment on above: Performed By: #### B MP #### [facility] [address] [address] [address] Raf Pearl Protein [Mass/Vol] 7.6 g/dL Normal 6.4-8.2 [facility] Comment on above: Performed By: #### B MP #### [facility] [address] [address] [address] Raf Pearl Sodium [Moles/Vol] 138 mmol/L Normal 136-145 [facility] Comment on above: Performed By: #### B MP #### [facility] [address] [address] [address] Raf Pearl Urea nitrogen [Mass/Vol] 19.0 mg/dL Critically high 7.0-18.0 [facility] Comment on above: Performed By: #### B MP #### [facility] [address] [address] [address] Raf Pearl Urea nitrogen/Creatinine [Mass ratio] 16.2 mg/mg Normal [facility] Comment on above: Performed By: #### B MP #### [facility] [address] [address] [address] Raf Pearl VIT B12 AND FOLATEon 022 Cobalamin (Vitamin B12) [Mass/Vol] 786.0 pg/mL Normal 193.0-986.0 [facility] Comment on above: Performed By: #### B 12FOL #### [facility] [address] [address] [address] Raf Pearl FOLATE 21.80 ng/mL Normal 8.60-58.90 [facility] Comment on above: Performed By: #### B 12FOL #### [facility] [address] [address] [address] 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 Electronically signed by:Jeffrey Miles. Transcribed by: [email or web address], User Resident: ANTHONY SUNG Electronically Signed by: JEFFREY MILES @ 11/04/2018 04:42 PM I personally read this/these film(s) with this resident Normal [facility] Comment on above: Order Comment: , pos top, eval hardware and alignment , Views (X-RAY, CERVICAL SPINE): AP, Lateral, Odontoid , postop, eval hardware and alignment , Views (X-RAY, CERVICAL SPINE): AP, Lateral, Odontoid , , , Ordering Provider - A ROSIE MSN CABLE TOWER OPERATOR , POC GLUCOSE LABon 08-25-2018 Glucose [Mass/Vol] 208 mg/dL High 70-100 [facility] Comment on above: Performed By: #### 5 [id number], [id number] #### [facility] [address] [place] [address], [facility] Glucose [Mass/Vol] 98 mg/dL Normal 70-100 [facility] Comment on above: Performed By: #### 5 [id number], [id number] #### [facility] [address] [facility] BASIC METABOLIC PANELon 05-0 Calcium [Mass/Vol] 7.7 mg/dL Low 8.6-10.3 [facility] Comment on above: Order Comment: No: D o not add to previous draw Performed By: #### 5 0103 #### [facility] [address] [facility] [place] [address], [facility] Chloride [Moles/Vol] 109 mmol/L High 98-107 [facility] Comment on above: Order Comment: No: D o not add to previous draw Performed By: #### 5 [id number] #### [facility] [address] [facility] [address], [facility] CO2 [Moles/Vol] 24 mmol/L Normal 21-31 [facility] Comment on above: Order Comment: No: D o not add to previous draw Performed By: #### 5 0103 #### [facility] [address] [facility] [address], [facility] Creatinine [Mass/Vol] 0.89 mg/dL Normal 0.60-1.20 [facility] Comment on above: Order Comment: No: D o not add to previous draw Performed By: #### 5 0103 #### [facility] [address] [facility] [place] [address], [facility] GFR/1.73 sq M predicted among blacks MDRD (S/P/Bld) [Vol rate/Area] mL/min/{1.73_m2} Normal >60 [facility] Comment on above: Order Comment: No: D o not add to previous draw Performed By: #### 5 0103 #### [facility] [address] [place] [address], [facility] GFR/1.73 sq M predicted among non-blacks MDRD (S/P/Bld) [Vol rate/Area] mL/min/{1.73_m2} Normal >60 [facility] Comment on above: Order Comment: No: D o not add to previous draw Performed By: #### 5 [id number] #### [facility] [address] [place] [address], [facility] Glucose [Mass/Vol] 94 mg/dL Normal 70-100 [facility] Comment on above: Order Comment: No: D o not add to previous draw Performed By: #### 5 0103 #### [facility] [address] [place] [address], [facility] Potassium [Moles/Vol] 3.3 mmol/L Low 3.5-5.1 [facility] Comment on above: Order Comment: No: D o not add to previous draw Performed By: #### 5 0103 #### [facility] [address] [place] [address], [facility] Sodium [Moles/Vol] 140 mmol/L Normal 136-145 [facility] Comment on above: Order Comment: No: D o not add to previous draw Performed By: #### 5 0103 #### [facility] [address] [place] [address], [facility] Urea nitrogen [Mass/Vol] 11 mg/dL Normal 7-25 [facility] Comment on above: Order Comment: No: D o not add to previous draw Performed By: #### 5 0103 #### [facility] [address] [place] [address], [place] CBC W/DIFFon 08-24-2018 ABS BASOPHILS 0.0 10*3/uL Normal 0.0-0.2 [facility] Comment on above: Order Comment: No: D o not add to previous draw Performed By: #### 5 0103 #### [facility] [address] [place] [address], [facility] ABS IMM GRANS 0.1 10*3/uL Normal 0.0-0.2 [facility] Comment on above: Order Comment: No: D o not add to previous draw Performed By: #### 5 0103 #### [facility] [address] [facility] [address], [facility] ABS NEUTROPHILS 12.5 10*3/uL High 1.6-7.6 [facility] Comment on above: Order Comment: No: D o not add to previous draw Performed By: #### 5 [id number] #### [facility] [address] [facility] [place] [address], [facility] Basophils/100 WBC (Bld) 0.3 % Normal 0.0-1.0 [facility] Comment on above: Order Comment: No: D o not add to previous draw Performed By: #### 5 0103 #### [facility] [address] [facility] [address], [facility] Eosinophils (Bld) [#/Vol] 0.0 10*3/uL Normal 0.0-0.5 [facility] Comment on above: Order Comment: No: D o not add to previous draw Performed By: #### 5 0103 #### [facility] [address] [facility]. [place] [id number], [facility] Eosinophils/100 WBC (Bld) 0.0 % Normal 0.0-6.0 [facility] Comment on above: Order Comment: No: D o not add to previous draw Performed By: #### 5 0103 #### [facility] [address] [place] [address], [facility] Erythrocyte distribution width (RBC) [Ratio] 13.0 % Normal 11.5-15.0 [facility] Comment on above: Order Comment: No: D o not add to previous draw Performed By: #### 5 0103 #### [facility] [address] [place] [address], [facility] Hematocrit (Bld) [Volume fraction] 31.7 % Low 36.0-45.0 [facility] Comment on above: Order Comment: No: D o not add to previous draw Performed By: #### 5 0103 #### [facility] [address] [place] [address], [facility] Hemoglobin (Bld) [Mass/Vol] 10.3 g/dL Low 12.0-15.0 [facility] Comment on above: Order Comment: No: D o not add to previous draw Performed By: #### 5 0103 #### [facility] [address] [facility] [address], [facility] IMMATURE GRANS 0.5 % Normal 0.0-1.0 [facility] Comment on above: Order Comment: No: D o not add to previous draw Performed By: #### 5 0103 #### [facility] [address] [facility] [address], [facility] Lymphocytes (Bld) [#/Vol] 1.9 10*3/uL Normal 1.2-4.0 [facility] Comment on above: Order Comment: No: D o not add to previous draw Performed By: #### 5 0103 #### [facility] [address] [facility] [address], [facility] Lymphocytes/100 WBC (Bld) 11.9 % Low 20.0-45.0 [facility] Comment on above: Order Comment: No: D o not add to previous draw Performed By: #### 5 0103 #### [facility] [address] [place] [address], [facility] MCH (RBC) [Entitic mass] 31.7 pg Normal 27.0-33.0 [facility] Comment on above: Order Comment: No: D o not add to previous draw Performed By: #### 5 0103 #### [facility] [address] [place] [address], [facility] MCHC (RBC) [Mass/Vol] 32.5 g/dL Normal 32.0-35.0 [facility] Comment on above: Order Comment: No: D o not add to previous draw Performed By: #### 5 0103 #### [facility] [address] [place] [address], [facility] MCV (RBC) [Entitic vol] 97.5 fL Normal 82.0-98.0 [facility] Comment on above: Order Comment: No: D o not add to previous draw Performed By: #### 5 0103 #### [facility] [address] [facility] [place] [address], [facility] Monocytes (Bld) [#/Vol] 1.2 10*3/uL High 0.1-1.0 [facility] Comment on above: Order Comment: No: D o not add to previous draw Performed By: #### 5 0103 #### [facility] [address] [facility] [place] [address], [facility] MONOS 7.7 % Normal 5.0-12.0 [facility] Comment on above: Order Comment: No: D o not add to previous draw Performed By: #### 5 0103 #### [facility] [address] [place] [address], [facility] Neutrophils/100 WBC (Bld) 79.6 % High 40.0-72.0 [facility] Comment on above: Order Comment: No: D o not add to previous draw Performed By: #### 5 0103 #### [facility] [address] [place] [id number], [facility] Nucleated RBC/100 WBC (Bld) [Ratio] 0 % Normal 0-0 [facility] Comment on above: Order Comment: No: D o not add to previous draw Performed By: #### 5 0103 #### [facility] [address] [place] [id number], [facility] PLAT CNT 263 10*3/uL Normal 150-400 The [facility] Comment on above: Order Comment: No: D o not add to previous draw Performed By: #### 5 0103 #### [facility] [address] [place] [address], [facility] RBC (Bld) [#/Vol] 3.25 10*6/uL Low 3.80-5.00 [facility] Comment on above: Order Comment: No: D o not add to previous draw Performed By: #### 5 0103 #### [facility] [address] [place] [address], [facility] WBC (Bld) [#/Vol] 15.70 10*3/uL High 4.00-10.60 [facility] Comment on above: Order Comment: No: D o not add to previous draw Performed By: #### 5 0103 #### [facility] [address] [place] [id number], [facility] LIPID PROFILEon 08-24-2018 Cholesterol [Mass/Vol] 128 mg/dL Normal 120-200 [facility] Comment on above: Order Comment: No: D o not add to previous draw Result Comment: CHOL ESTEROL REFERENCE RANGE: 20 YEARS AND OLDER CARDIOVASCULAR RISK Less than 200 mg/dl Low Risk 200 to 239 mg/dl Borderline Risk 240 mg/dl and greater High Risk Performed By: #### 5 0103 #### [facility] [address] [place] [address], [facility] Cholesterol in HDL [Mass/Vol] 49 mg/dL Normal 23-92 [facility] Comment on above: Order Comment: No: D o not add to previous draw Result Comment: Slig ht variation in normal range could be due to gender and/or age. HDL CHOLESTEROL REFERENCE RANGE: 20 years and older Cardiovascular Risk > or =60 mg/dL Desirable 40 TO 59 mg/dL Low Risk <40 mg/dL High Risk Performed By: #### 5 0103 #### [facility] [address] [place] [address], [facility] Cholesterol in LDL [Mass/Vol] 65 mg/dL Normal 0-130 [facility] Comment on above: Order Comment: No: D o not add to previous draw Result Comment: LDL IS A CALCULATION LDL IS ONLY VALID IF THE TRIG IS LESS THAN 400. Performed By: #### 5 0103 #### [facility] [address] [place] [address], [facility] Cholesterol.total/Ch olesterol in HDL [Mass ratio] 2.6 {ratio} Normal .0-4.5 [facility] Comment on above: Order Comment: No: D o not add to previous draw Performed By: #### 5 0103 #### [facility] [address] [place] [address], [facility] NON-HDL CHOLESTEROL 79 mg/dL Normal [facility] Comment on above: Order Comment: No: D o not add to previous draw Performed By: #### 5 0103 #### [facility] [address] [facility] [place] [address], [facility] Triglyceride [Mass/Vol] 69 mg/dL Normal 40-149 [facility] Comment on above: Order Comment: No: D o not add to previous draw Result Comment: TRIG LYCERIDE REFERENCE RANGE: 20 YEARS AND OLDER CARDIOVASCULAR RISK LESS THAN 150 mg/dl LOW RISK 150 TO 199 mg/dl BORDERLINE RISK 200 mg/dl AND GREATER HIGH RISK Performed By: #### 5 0103 #### [facility] [address] [place] [address], [facility] VLDL CHOL 14 mg/dL Normal 0-40 [facility] Comment on above: Order Comment: No: D o not add to previous draw Performed By: #### 5 0103 #### [facility] [address] [place] [address], [place] POC GLUCOSE LABon 08-24-2018 Glucose [Mass/Vol] 162 mg/dL High 70-100 [facility] Comment on above: Performed By: #### 5 6101, [id number] #### [facility] [address] [place] [address], [place] Glucose [Mass/Vol] 146 mg/dL High 70-100 [facility] Comment on above: Performed By: #### 5 610, [id number] #### [facility] [address] [place] [address], [place] Glucose [Mass/Vol] 213 mg/dL High 70-100 [facility] Comment on above: Performed By: #### 5 6101, [id number] #### [facility] [address] [place] [address], [place] Glucose [Mass/Vol] 81 mg/dL Normal 70-100 [facility] Comment on above: Performed By: #### 5 6101, [id number] #### [facility] [address] [place] [address], [place] BASIC METABOLIC PANELon 05- Calcium [Mass/Vol] 8.4 mg/dL Low 8.6-10.3 [facility] Comment on above: Order Comment: Yes: Add to Previous draw if able Performed By: #### 5 0103 #### [facility] [address] [place] [address], [place] Chloride [Moles/Vol] 103 mmol/L Normal 98-107 [facility] Comment on above: Order Comment: Yes: Add to Previous draw if able Performed By: #### 5 010 #### [facility] [address] [place] [address], [place] CO2 [Moles/Vol] 26 mmol/L Normal 21-31 [facility] Comment on above: Order Comment: Yes: Add to Previous draw if able Performed By: #### 5 0103 #### [facility] [address] [place] [address], [place] Creatinine [Mass/Vol] 1.03 mg/dL Normal 0.60-1.20 [facility] Comment on above: Order Comment: Yes: Add to Previous draw if able Performed By: #### 5 0103 #### [facility] [address] [place] [address], [place] GFR/1.73 sq M predicted among blacks MDRD (S/P/Bld) [Vol rate/Area] mL/min/{1.73_m2} Normal >60 [facility] Comment on above: Order Comment: Yes: Add to Previous draw if able Performed By: #### 5 0103 #### [facility] [address] [place] [address], [place] GFR/1.73 sq M predicted among non-blacks MDRD (S/P/Bld) [Vol rate/Area] 54 ml/min/1.73sq m Abnormal >60 [facility] Comment on above: Order Comment: Yes: Add to Previous draw if able Performed By: #### 5 0103 #### [facility] [address] [place] [address], [place] Glucose [Mass/Vol] 209 mg/dL High 70-100 [facility] Comment on above: Order Comment: Yes: Add to Previous draw if able Performed By: #### 5 0103 #### [facility] [address] [place] [address], [place] Potassium [Moles/Vol] 3.9 mmol/L Normal 3.5-5.1 [facility] Comment on above: Order Comment: Yes: Add to Previous draw if able Performed By: #### 5 0103 #### [facility] [address] [place] [address], [place] Sodium [Moles/Vol] 135 mmol/L Low 136-145 [facility] Comment on above: Order Comment: Yes: Add to Previous draw if able Performed By: #### 5 3 #### [facility] [address] [place] [address], [facility] Urea nitrogen [Mass/Vol] 16 mg/dL Normal 7-25 [facility] Comment on above: Order Comment: Yes: Add to Previous draw if able Performed By: #### 3 #### [facility] [address] CBC COMPLETE BLOOD COUNTon 0 08-23-2018 Erythrocyte distribution width (RBC) [Ratio] 12.8 % Normal 11.5-15.0 [facility] Comment on above: Order Comment: Yes: Add to Previous draw if able Performed By: #### 5 102 #### [facility] [address] [place] [address], [facility] Hematocrit (Bld) [Volume fraction] 35.0 % Low 36.0-45.0 [facility] Comment on above: Order Comment: Yes: Add to Previous draw if able Performed By: #### 5 3 #### [facility] [address] [place] [address], [facility] Hemoglobin (Bld) [Mass/Vol] 11.2 g/dL Low 12.0-15.0 [facility] Comment on above: Order Comment: Yes: Add to Previous draw if able Performed By: #### 5 3 #### [facility] [address] [place] [address], [facility] MCH (RBC) [Entitic mass] 31.5 pg Normal 27.0-33.0 [facility] Comment on above: Order Comment: Yes: Add to Previous draw if able Performed By: #### 5 3 #### [facility] [address] [place] [address], [facility] MCHC (RBC) [Mass/Vol] 32.0 g/dL Normal 32.0-35.0 [facility] Comment on above: Order Comment: Yes: Add to Previous draw if able Performed By: #### 5 0103 #### [facility] [address] [place] [address], [facility] MCV (RBC) [Entitic vol] 98.3 fL High 82.0-98.0 [facility] Comment on above: Order Comment: Yes: Add to Previous draw if able Performed By: #### 5 0103 #### [facility] [address] [facility] [address], [facility] Nucleated RBC/100 WBC (Bld) [Ratio] 0 % Normal 0-0 [facility] Comment on above: Order Comment: Yes: Add to Previous draw if able Performed By: #### 5 0103 #### [facility] [address] [facility] [place] [address], [facility] PLAT CNT 276 10*3/uL Normal 150-400 [facility] Comment on above: Order Comment: Yes: Add to Previous draw if able Performed By: #### 5 0103 #### [facility] [address] [facility] [address], [facility] RBC (Bld) [#/Vol] 3.56 10*6/uL Low 3.80-5.00 [facility] Comment on above: Order Comment: Yes: Add to Previous draw if able Performed By: #### 5 0103 #### [facility] [address] [facility] [address], [facility] WBC (Bld) [#/Vol] 14.61 10*3/uL High 4.00-10.60 [facility] Comment on above: Order Comment: Yes: Add to Previous draw if able Performed By: #### 5 0103 #### [facility] [address] [facility] [address], [facility] CERVICAL SPINE 2 OR 3 VWSon 08-23-2018 CERVICAL SPINE 2 OR 3 S [facility] Department of Radiology [address] [place] [address] [id number] Patient Name: CRISELDA MORFIN : 1955 Sex: [...] C6. Electronically signed by:Xiomara Nath. Transcribed by: [email or web address], User Resident: Electronically Signed by: XIOMARA NATH @ 08/23/2018 04:07 PM Normal [facility] Comment on above: Order Comment: C4-C5 , C5-C6 ANTERIOR CERVICAL DISCECTOMY WITH FUSION Operative Reporton 9 Operative Report MR#: [id number] S [facility] Pt. Name: Criselda Morfin Room #: 0C Discharge Date: Birthdate: 1955 OPERATIVE REPORT DATE OF SURGERY: 08/23/2018 SURGEON: Demetris Askew M.D. 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 POSTOPERATIVE DIAGNOSIS: Herniated cervical disk and spinal stenosis from C4 through C6. METHODOLOGIST: ELIDIA Castle. ANESTHESIA: Endotracheal, Dr. Falcon. PROCEDURE: [...] size 8 at C5-6. The plate was Yah-Ta-Hey, size 35 mm. The screws were 6, [...] Askew M.D. Date Trans: 08/23/2018 01:26 P/kari [id number] Normal [facility] POC GLUCOSE LABon 08-23-2018 Glucose [Mass/Vol] 157 mg/dL High 70-100 [facility] Comment on above: Performed By: #### 5 0103 #### [facility] [address] Glucose [Mass/Vol] 190 mg/dL High 70-100 [facility] Comment on above: Performed By: #### 5 0103 #### [facility] [address] Glucose [Mass/Vol] 182 mg/dL High 70-100 [facility] Comment on above: Performed By: #### 5 0103 #### [facility] [address] [place] [address], [facility] Glucose [Mass/Vol] 94 mg/dL Normal 70-100 [facility] Comment on above: Performed By: #### 5 0103 #### [facility] [address] *MRSA/MSSA DNA NASALon 08-08 *MRSA/MSSA DNA NASAL Clinical Report: (D ) Specimen: NASAL SWAB Collected: 08/08/2018 15:04 Status: Final Last Updated: 08/08/2018 20:45 MSSA DNA (Final) Negative MRSA DNA (Final) Negative Normal [facility] Comment on above: Performed By: #### 3 1595 #### [facility] [address] *URINE CULTUREon 08-08-2018 Bacteria identified Cx [...] CEFAZOLIN (CZ) 2 Susceptible 4 Susceptible CEFTRIAXONE (RESTAURANT SUPERVISOR) <=0.5 Susceptible <=0.5 Susceptible CIPROFLOXACIN (CIP) <=0.5 Susceptible <=0.5 Susceptible GENTAMICIN (GM) 1 Susceptible 4 Susceptible MEROPENEM (MEM) <=0.125 Susceptible NITROFURANTOIN (FT) 32 Susceptible >64 Resistant PIP/TAZO (TZP) 4/4 Susceptible PIP/TAZO (TZP) <=2/4 Susceptible TOBRAMYCIN (TOB) 1 Susceptible 2 Susceptible TRIMETH/SULFA (SXT) <=0.5/9.5 Susceptible <=0.5/9.5 Susceptible Antibiotic Summary Grid: AMS AM AZM CZ RESTAURANT SUPERVISOR CIP GM MEM FT TZP TOB Citrobacter S R S S S S S S S S S amalonaticus complex Proteus mirabilis S S S S S S S R S S SXT Citrobacter S amalonaticus complex Proteus mirabilis S Normal [facility] Comment on above: Performed By: #### 3 0339 #### [facility] [address] APTTon 08-08-2018 aPTT Coag (Bld) [Time] 28.0 s Normal 25.0-35.0 [facility] Comment on above: Result Comment: ALL RESULTS [...] THIS PURPOSE. Performed By: #### 5 6101, [id number] #### [facility] [address] BASIC METABOLIC PANELon - Calcium [Mass/Vol] 9.6 mg/dL Normal 8.6-10.3 [facility] Comment on above: Performed By: #### 0 0071 #### [facility] [address] [place] [address], [place] Chloride [Moles/Vol] 103 mmol/L Normal 98-107 [facility] Comment on above: Performed By: #### 0 0071 #### [facility] [address] [place] [address], [place] CO2 [Moles/Vol] 30 mmol/L Normal 21-31 [facility] Comment on above: Performed By: #### 0 0071 #### [facility] [address] [place] [address], [place] Creatinine [Mass/Vol] 1.07 mg/dL Normal 0.60-1.20 [facility] Comment on above: Performed By: #### 0 0071 #### [facility] [address] [place] [address], [place] GFR/1.73 sq M predicted among blacks MDRD (S/P/Bld) [Vol rate/Area] mL/min/{1.73_m2} Normal >60 [facility] Comment on above: Performed By: #### 0 0071 #### [facility] [address] [place] [address], [place] GFR/1.73 sq M predicted among non-blacks MDRD (S/P/Bld) [Vol rate/Area] 52 ml/min/1.73sq m Abnormal >60 The [facility] Comment on above: Performed By: #### 0 0071 #### [facility] [address] [place] [address], [place] Glucose [Mass/Vol] 93 mg/dL Normal 70-100 [facility] Comment on above: Performed By: #### 0 0071 #### [facility] [address] [place] [address], [place] Potassium [Moles/Vol] 4.2 mmol/L Normal 3.5-5.1 [facility] Comment on above: Performed By: #### 0 0071 #### [facility] [address] Sodium [Moles/Vol] 139 mmol/L Normal 136-145 [facility] Comment on above: Performed By: #### 0 1 #### [facility] [address] Urea nitrogen [Mass/Vol] 18 mg/dL Normal 7-25 [facility] Comment on above: Performed By: #### 0 1 #### [facility] [address] CBC W/DIFFon 08-08-2018 ABS BASOPHILS 0.1 10*3/uL Normal 0.0-0.2 [facility] Comment on above: Performed By: #### 5 102 #### [facility] [address] ABS IMM GRANS 0.0 10*3/uL Normal 0.0-0.2 [facility] Comment on above: Performed By: #### 5 102 #### [facility] [address] ABS NEUTROPHILS 5.0 10*3/uL Normal 1.6-7.6 [facility] Comment on above: Performed By: #### 5 3 #### [facility] [address] Basophils/100 WBC (Bld) 0.9 % Normal 0.0-1.0 [facility] Comment on above: Performed By: #### 5 102 #### [facility] [address] Eosinophils (Bld) [#/Vol] 0.2 10*3/uL Normal 0.0-0.5 [facility] Comment on above: Performed By: #### 5 0103 #### [facility] [address] [place] [address], [facility] Eosinophils/100 WBC (Bld) 1.8 % Normal 0.0-6.0 [facility] Comment on above: Performed By: #### 102 #### [facility] [address] [place] [address], [facility] Erythrocyte distribution width (RBC) [Ratio] 13.1 % Normal 11.5-15.0 [facility] Comment on above: Performed By: #### 102 #### [facility] [address] [facility] [place] [address], [facility] Hematocrit (Bld) [Volume fraction] 37.2 % Normal 36.0-45.0 [facility] Comment on above: Performed By: #### 102 #### [facility] [address] [facility] [place] [address], [facility] Hemoglobin (Bld) [Mass/Vol] 12.3 g/dL Normal 12.0-15.0 [facility] Comment on above: Performed By: #### 102 #### [facility] [address] [facility] [place] [address], [facility] IMMATURE GRANS 0.5 % Normal 0.0-1.0 [facility] Comment on above: Performed By: #### 3 #### [facility] [address] [facility] [place] [address], [facility] Lymphocytes (Bld) [#/Vol] 2.2 10*3/uL Normal 1.2-4.0 [facility] Comment on above: Performed By: #### 3 #### [facility] [address] [facility] [place] [address], [facility] Lymphocytes/100 WBC (Bld) 26.5 % Normal 20.0-45.0 [facility] Comment on above: Performed By: #### 102 #### [facility] [address] [facility] [address] MCH (RBC) [Entitic mass] 31.4 pg Normal 27.0-33.0 [facility] Comment on above: Performed By: #### 5 0103 #### [facility] [address] [facility] [address] MCHC (RBC) [Mass/Vol] 33.1 g/dL Normal 32.0-35.0 [facility] Comment on above: Performed By: #### 5 0103 #### [facility] [address] [facility] [place] [address], [facility] MCV (RBC) [Entitic vol] 94.9 fL Normal 82.0-98.0 [facility] Comment on above: Performed By: #### 5 3 #### [facility] [address] [facility] [address] Monocytes (Bld) [#/Vol] 0.7 10*3/uL Normal 0.1-1.0 [facility] Comment on above: Performed By: #### 5 0103 #### [facility] [address] [facility]. [address] MONOS 8.3 % Normal 5.0-12.0 [facility] Comment on above: Performed By: #### 5 0103 #### [facility] [address] Neutrophils/100 WBC (Bld) 62.0 % Normal 40.0-72.0 [facility] Comment on above: Performed By: #### 5 [id number] #### [facility] 3000 [facility] [place] [address], [facility] Nucleated RBC/100 WBC (Bld) [Ratio] 0 % Normal 0-0 [facility] Comment on above: Performed By: #### 5 [id number] #### [facility] 3000 [facility] [address] PLAT CNT 325 10*3/uL Normal 150-400 The [facility] Comment on above: Performed By: #### 5 [id number] #### [facility] 3000 [facility] [address], [facility] RBC (Bld) [#/Vol] 3.92 10*6/uL Normal 3.80-5.00 The [facility] Comment on above: Performed By: #### 5 0103 #### [facility] [address] [place] [address], [facility] WBC (Bld) [#/Vol] 8.12 10*3/uL Normal 4.00-10.60 [facility] Comment on above: Performed By: #### 5 0103 #### [facility] [address] CERVICAL SPINE 4 OR 5 VIEWSo 08-08-2018 CERVICAL SPINE 4 OR 5 VIEWS [facility] Department of Radiology [address] [place] [address] [id number] Patient Name: CRISELDA MORFIN : 1955 Sex: F Age: Race: White Pt. Location: Patient Status: O Ordered Date: 08/08/2018 2:25:00 PM Completed Date: 08/08/2018 02:48 PM Requesting Provider: DEMETRIS ASKEW Attending Provider: DEMETRIS ASKEW Report Copy To: DEMETRIS ASKEW Signs & Symptoms: M48.02 Spinal stenosis, cervical region I10 History: [place] Comments: , POST OP XRAY AP/LAT ONLY [...] level Electronically signed by:Xiomara Nath. Transcribed by: [email or web address], User Resident: Electronically Signed by: XIOMARA NATH @ 08/08/2018 03:24 PM Normal [facility] Comment on above: Order Comment: , POS T OP XRAY AP/LAT ONLY , POST OP XRAY AP/LAT ONLY , , , Ordering Charlene ASKEW MD , HEMOGLOBIN A1Con 08-08-2018 HbA1c (Bld) [Mass fraction] 154 mg/dL High 70-126 [facility] Comment on above: Performed By: #### 4 [id number] #### [facility] 3000 [facility]. [address] HbA1c (Bld) [Mass fraction] 7.0 % High 4.0-6.0 [facility] Comment on above: Performed By: #### 4 [id number] #### [facility] 3000 [facility]. [address] PROTHROMBIN TIMEon 9 INR Coag (PPP) [Relative time] 0.93 {INR} Normal 0.91-1.16 [facility] Comment on above: Result Comment: ACCC P [...] CHEST 1995;[id number]. Performed By: #### 5 [id number], [id number] #### [facility] 3000 [facility] [address], [facility] PT Coag (PPP) [Time] 12.5 s Normal 12.3-14.8 [facility] Comment on above: Result Comment: ALL RESULTS MUST BE INTERPRETED WITH RESPECT TO BLOOD DRAWING ARTIFACT OR DILUTION ERROR OF ANTICOAGULANT AT THE TIME OF SAMPLING. Performed By: #### 5 [id number], [id number] #### [facility] 3000 [facility] [address] TYPE AND CROSSMATCHon 2018 ABO INTERPRETATION O Normal The [facility] Comment on above: Performed By: #### 6 [id number] #### [facility] [address] [place] [address], [place] RH INTERPRETATION Positive Normal The [facility] Comment on above: Performed By: #### 6 [id number] #### [facility] [address] [place] [address], [place] URINALYSIS REFLEXon 08-09-19 19 Appearance (U) CLEAR Normal CLEAR The [facility] Comment on above: Performed By: #### 3 0965 #### [facility] [address] [place] [address], [place] Bilirubin [Mass/Vol] Negative Normal NEGATIVE [facility] Comment on above: Performed By: #### 3 0965 #### [facility] [address] [place] [address], [place] BLOOD Negative Normal NEGATIVE [facility] Comment on above: Performed By: #### 3 0965 #### [facility] [address] [place] [address], [place] Color (U) STRAW Abnormal YELLOW [facility] Comment on above: Performed By: #### 3 0965 #### [facility] [address] [place] [address], [place] EPIS NONE SEEN Normal FEW,OCC,NONE SEEN [facility] Comment on above: Performed By: #### 3 0965 #### [facility] [address] [place] [address], [place] Glucose [Mass/Vol] Negative Normal NEGATIVE [facility] Comment on above: Performed By: #### 3 0965 #### [facility] [address] [place] [address], [place] KETONE Negative Normal NEGATIVE [facility] Comment on above: Performed By: #### 3 0965 #### [facility] [address] [place] [address], [place] LEUK ALVARADO TRACE Abnormal NEGATIVE [facility] Comment on above: Performed By: #### 3 0965 #### [facility] [address] [place] [address], [place] Nitrite Ql (U) Negative Normal NEGATIVE The [facility] Comment on above: Performed By: #### 3 0965 #### [facility] [address] [place] [address], [place] pH (Bld) 6.0 Normal 5.0-8.0 [facility] Comment on above: Performed By: #### 3 0965 #### [facility] [address] [place] [address], [place] Protein (U) [Mass/Vol] Negative Normal NEGATIVE [facility] Comment on above: Performed By: #### 3 0965 #### [facility] [address] [place] [address], [place] RBC (U) [#/Vol] 0-2 Abnormal NONE SEEN The [facility] Comment on above: Performed By: #### 3 0965 #### [facility] [address] [place] [address], [place] SPEC GRAV 1.011 Low 1.015-1.020 [facility] Comment on above: Performed By: #### 3 0965 #### [facility] [address] [facility] [place] [address], [place] WBC UA 0-2 Abnormal NONE SEEN [facility] Comment on above: Performed By: #### 3 0965 #### [facility] [address] [place] [address], [place] Vital Signs Date Time Vital Sign Value Performing Clinician Facility 09-24-2022 08:10-0400 Body height 149.86 cm Rin Nicholson Other [facility] Other 09-24-2022 08:10-0400 Body mass index (BMI) [Ratio] 29.89 kg/m2 Rin Nicholson Other [facility] Other 09-24-2022 08:10-0400 Body temperature 98.6 [degF] Rin Nicholson Other [facility] Other 09-24-2022 08:10-0400 Body weight 67.13 kg Rin Nicholson Other [facility] Other 09-24-2022 08:10-0400 Diastolic blood pressure 84 mm[Hg] Rin Nicholson Other [facility] Other 09-24-2022 08:10-0400 Respiratory rate 18 /min Rin Nicholson Other [facility] Other 09-24-2022 08:10-0400 SaO2% (BldA) [Mass fraction] 97 % Rin Nicholson Other [facility] Other 09-24-2022 08:10-0400 Systolic blood pressure 126 mm[Hg] Rin Nicholson Other [facility] Other 08-09-2022 18:20-0400 Body height 149.86 cm Rin Nicholson Other [facility] Other 08-09-2022 18:20-0400 Body mass index (BMI) [Ratio] 29.89 kg/m2 Rin Nicholson Other [facility] Other 08-09-2022 18:20-0400 Body temperature 98.2 [degF] Rin Nicholson Other [facility] Other 08-09-2022 18:20-0400 Body weight 67.13 kg Rin Nicholson Other [facility] Other 08-09-2022 18:20-0400 Diastolic blood pressure 78 mm[Hg] Rin Nicholson Other [facility] Other 08-09-2022 18:20-0400 Respiratory rate 16 /min Rin Nicholson Other [facility] Other 08-09-2022 18:20-0400 SaO2% (BldA) [Mass fraction] 98 % Rin Nicholson Other [facility] Other 08-09-2022 18:20-0400 Systolic blood pressure 136 mm[Hg] Rin Nicholson Other [facility] Other 02-08-2022 18:00-0400 Body height 149.86 cm Rin Nicholson Other [facility] Other 02-08-2022 18:00-0400 Body mass index (BMI) [Ratio] 28.98 kg/m2 Rin Nicholson Other [facility] Other 02-08-2022 18:00-0400 Body temperature 98.1 [degF] Rin Nicholson Other [facility] Other 02-08-2022 18:00-0400 Body weight 65.09 kg Rin Nicholson Other [facility] Other 02-08-2022 18:00-0400 Diastolic blood pressure 80 mm[Hg] Rin Nicholson Other [facility] Other 02-08-2022 18:00-0400 Respiratory rate 16 /min Rin Nicholson Other [facility] Other 02-08-2022 18:00-0400 SaO2% (BldA) [Mass fraction] 99 % Rin Nicholson Other [facility] Other 02-08-2022 18:00-0400 Systolic blood pressure 136 mm[Hg] Rin Nicholson Other [employer] Other Encounters Encounter Date Encounter Type Care Provider Facility Start: 05-16-2023 End: 05-16-2023 ambulatory Rin Nicholson Other [employer] Other Start: 05-16-2023 Telephone encounter Rin Nicholson [facility] [place] Start: 05-03-2023 End: 05-03-2023 ambulatory Rin Nicholson Facility:[facility] Start: 05-03-2023 Encounter by compute r link Rin Nicholson [facility] [place] Start: 05-03-2023 End: 05-03-2023 ambulatory DO Rin Nicholson Work Phone: [facility] Work Phone: Start: 05-03-2023 End: 05-03-2023 Patient encounter procedure DO Rin Nicholson Work Phone: [facility] Work Phone: Start: 04-12-2023 End: 04-12-2023 ambulatory Rin Nicholson Other [employer] Other Start: 04-12-2023 Telephone encounter Rin Nicholson [facility] [place] Start: 04-04-2023 End: 04-04-2023 ambulatory Rin Nicholson Other [employer] Other Start: 04-04-2023 Telephone encounter Rin Nicholson [facility] [place] Start: 03-21-2023 End: 03-21-2023 ambulatory Rin Nicholson Other [employer] Other Start: 03-21-2023 Telephone encounter Rin Nicholson [facility] [place] Start: 02-23-2023 End: 02-23-2023 ambulatory Rin Nicholson Other [employer] Other Start: 02-23-2023 Telephone encounter Rin Nicholson [facility] [place] Start: 09-24-2022 End: 09-24-2022 ambulatory Rin Nicholson Other [employer] Other Start: 09-24-2022 Office outpatient vi sit 15 minutes Rin Nicholson [facility] [place] Start: 08-30-2022 End: 08-31-[address] RIN NICHOLSON Facility:[facility] Start: 08-17-2022 End: 08-17-2022 ambulatory Rin Nicholson Other [employer] Other Start: 08-17-2022 Telephone encounter Rin Nicholson [facility] [place] Start: 08-16-2022 End: 08-17-[address] RIN NICHOLSON Facility:[facility] Start: 08-09-2022 End: 08-09-2022 ambulatory Rin Nicholson Other [employer] Other Start: 08-09-2022 Office outpatient vi sit 25 minutes Rin Nicholson [facility] [place] Start: 08-06-2022 End: 08-06-2022 ambulatory Rin Nicholson Other [employer] Other Start: 08-06-2022 Telephone encounter Rin Nicholson [facility] [place] Start: 07-31-2022 End: 08-01-[address] RIN NICHOLSON Facility:[facility] Start: 06-04-2022 End: 06-04-2022 ambulatory Rin Nicholson Other [employer] Other Start: 06-04-2022 Telephone encounter Rin Nicholson [facility] [place] Start: 05-24-2022 End: 05-24-2022 ambulatory Rin Nicholson Other [employer] Other Start: 05-24-2022 Telephone encounter Rin Nicholson [facility] [place] Start: 05-14-2022 End: 05-14-2022 ambulatory Rin Nicholson Other [employer] Other Start: 05-14-2022 Telephone encounter Rin Nicholson [facility] [place] Start: 04-30-2022 End: 04-30-[address] BETTINA MULLIGAN . Facility:[facility] Start: 04-22-2022 End: 04-22-2022 ambulatory Rin Nicholson Other [employer] Other Start: 04-22-2022 Telephone encounter Rin Nicholson [facility] [place] Start: 03-29-2022 End: 03-29-2022 ambulatory Rin Nicholson Other [employer] Other Start: 03-29-2022 Telephone encounter Rin Nicholson [facility] [place] Start: 03-27-2022 End: 03-28-[address] RIN NICHOLSON Facility:[facility] Start: 02-08-2022 End: 02-08-2022 ambulatory Rin Nicholson Other [employer] Other Start: 02-08-2022 Office outpatient vi sit 25 minutes Rin Nicholson [facility] [place] Start: 01-22-2022 End: 01-23-[address] RIN NICHOLSON Facility:[facility] Start: 08-23-2018 End: 08-25-2018 Evaluation and management of inpatient PROVIDER UNKNOWN Facility:[facility] Start: 05-11-2018 Patient encounter procedure Selin [...] above: Performed By: #### [id number] #### [facility] [address] Immunizations Immunization Date Immunization Notes Care Provider Fa hunter 04-26-2023 Prevnar 20 Rin Nicholson Other [employer] Other 04-08-2023 COVID-19 Moderna (SPIKEVAX) iRn Nicholson Other [employer] Other 04-08-2023 zoster vaccine recombinant Rin Nicholson Other [employer] Other 03-22-2023 Flu Shot - Documentation Purposes Only Rin Nicholson Other [employer] Other 02-08-2022 Shingrix 50 MCG/0.5M L; 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: [Shingrix 50 MCG/0.5ML] Rin Nicholson Other [employer] Other 01-15-2022 influenza, seasonal, injectable Rin Nicholson Other [employer] Other 01-15-2022 COVID-19 Pfizer (bivalent) Rin Nicholson Other [employer] Other 07-31-2021 COVID-19 Vaccine Moderna - Documentation Purposes Only Rin Nicholson Other [employer] Other 02-20-2021 COVID-19 Vaccine Moderna - Documentation Purposes Only Rin Nicholson Other [employer] Other 07-26-2020 COVID-19 Brittany Romero n Other [employer] Other 06-28-2020 COVID-19 Brittany Romero n Other [employer] Other 02-18-2020 influenza, seasonal, injectable Rin Kesslerbaljit Other [employer] Other 02-19-2017 influenza, seasonal, injectable Rin Lyn Other [employer] Other 03-08-2016 influenza, seasonal, injectable Rin Kesslerbaljit Other [employer] Other 05-07-2013 influenza virus vaccine, split virus (incl. purified surface antigen) Rin Nicholson Other [employer] Other 03-24-2012 influenza, seasonal, injectable, preservative free Rin Nicholson Other [employer] Other Payers Date Payer Category Payer Self-pay [id number] 2023 Unknown [id number] 2022 Medicare [id number] 2.1 [id number] 1959 Unknown [id number] 1955 Unknown [id number] 2.16. [id number] 1955 Unknown [id number] 2.16. [id number] 1955 Unknown [id number] 2.16. [id number] 1955 Unknown [id number] 2.16. [id number] 1955 Unknown [id number] 2.16.8 40.1.186547.3.579.2.647 1955 Unknown [id number] 2.16.84 0.1.804317.3.579.2.593 1955 Unknown [id number] 2.16.84 [id number] 1955 Unknown [id number] 2.16.84 0.1.200719.3.579.2.593 1955 Unknown [id number] 2.16.84 0.1.182749.3.579.2.593 1955 Unknown [id number] 2.16.84 [id number] 1955 Unknown [id number] 2.16.84 [id number] Unknown [id number] Unknown [id number] 2.16.8 [id number] Social History Date Type Detail Facility Unknown if ever smoked [employer] Other Sex Assigned At Sex Assigned At Bir th [employer] Other Start: 1955 Sex Assigned At Female F [facility] Start: 06-02-2020 Tobacco smoking status NHIS Never smoked tobacco (finding) [facility] Medical Equipment Procedure Code Equipment Code Equipment Origin al Text Equipment Identifier Dates One Touch Lancet s lancets Start: 12-24-2011 Clinical Notes 02-11-2019 to 05-03-2023 Note Date & Type Note Facility 05-03-2023 Evaluation note Encounter Date Diagnosis Assessment Notes Apr, GERD (gastroesop hageal reflux disease) (ICD-10 - K21.9) [employer] Other 2023 Evaluation note* Encounter Date Diagnosis Assessment Notes Treatment Notes Treatment Clinical Notes Mar, Abnormal blood chemistry (ICD-10 - R79.9) Mar, Hypercalcemia (ICD-1 0 - E83.52) Mar, Stage 3a chronic kidney disease (ICD-10 - N18.31) [employer] Other 06-09-2023 Evaluation note* Encounter Date Diagnosis [...] see where her kidney studies are at. [employer] Other 04-24-2023 Evaluation note* Encounter Date Diagnosis [...] results. She may have to see the nurse general duty again but we will wait and see [...] ice the shoulder or alternate with heat. [employer] Other 01-05-2023 Evaluation note* Encounter Date Diagnosis Assessment Notes Treatment Notes Treatment Clinical Notes Apr, Hypertension (ICD-10 - I10) [employer] Other 10-24-2022 Evaluation note* Encounter Date Diagnosis [...] this. She does agree to see an curriculum development specialist. A referral is provided. Her range [...] her wi th an order for a Shin[employer] vaccine [employer] Other 02-01-2021 History general Narrative - Reported* Type Description Date Medical History Stress Test; [facility], normal per patient Medical History Pap and Pelvic 3 yea rs ago, OBGYN in [place] Medical History Mammogram over 5 yea rs; Normal at that time per patient Medical History CT Abdomen and Pelvi s over 5 years ago; [facility] Medical History Colonoscopy 8 years ago; in [place], normal in patient Medical History Chest X-Ray 12-15-11; normal, [facility] Medical History Echocardiogram; 12-15; [facility] Medical History Cardiolite Stress Te st 12-16-11; [facility] Medical History Check's sugar's bid Medical History Heart Catherization; [facility] Medical History breast cancer 04/2014 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, status post lumpectomy x2, sentinel lymph node biopsy and adjuvant radiotherapy that concluded on 08-21-14 Medical History 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 - Dr French from [facility] Surgical History Tonsillectomy age 21 Surgical History ovarian tumor removed and left ovary Surgical History complete hysterectomy 1993 Surgical History Heart Catherization; [facility] Surgical History Right Shoulder Tear and bone spur removal; [facility] 07-27-12 Surgical History Left Shoulder Rotato [...] for a kidney stone Surgical History mammogram [facility] 04/2017 Surgical History vertabrae fusion 08/2018 Hospitalization History ovarian tumor removed an d left overy Hospitalization History complete hysterectomy 19 94 [employer] Other 01-19-2021 History general Narrative - Reported* Type Description Date Medical History Stress Test; [facility], normal per patient Medical History Pap and Pelvic 3 yea rs ago, OBGYN in [place] Medical History Mammogram over 5 yea rs; Normal at that time per patient Medical History CT Abdomen and Pelvi s over 5 years ago; [facility] Medical History Colonoscopy 8 years ago; in [place], normal in patient Medical History Chest X-Ray 12-15-11; normal, [facility] Medical History Echocardiogram; 12-15; [facility] Medical History Cardiolite Stress Te st 12-16-11; [facility] Medical History Check's sugar's bid Medical History Heart Catherization; [facility] Medical History breast cancer 04/2014 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, status post lumpectomy x2, sentinel lymph node biopsy and adjuvant radiotherapy that concluded on 08-21-14 Medical History 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 - Dr French from [facility] Surgical History Tonsillectomy age 21 Surgical History ovarian tumor removed and left ovary Surgical History complete hysterectomy 1993 Surgical History Heart Catherization; [facility] Surgical History Right Shoulder Tear and bone spur removal; [facility] 07-27-12 Surgical History Left Shoulder Rotato [...] for a kidney stone Surgical History mammogram [facility] 04/2017 Surgical History vertabrae fusion 08/2018 Hospitalization History ovarian tumor removed an d left overy Hospitalization History complete hysterectomy 19 94 [employer] Other 12-27-2020 History general Narrative - Reported* Type Description Date Medical History Stress Test; [facility], normal per patient Medical History Pap and Pelvic 3 yea rs ago, OBGYN in [place] Medical History Mammogram over 5 yea rs; Normal at that time per patient Medical History CT Abdomen and Pelvi s over 5 years ago; [facility] Medical History Colonoscopy 8 years ago; in [place], normal in patient Medical History Chest X-Ray 12-15-11; normal, [facility] Medical History Echocardiogram; 12-15; [facility] Medical History Cardiolite Stress Te st 12-16-11; [facility] Medical History Check's sugar's bid Medical History Heart Catherization; [facility] Medical History breast cancer 04/2014 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, status post lumpectomy x2, sentinel lymph node biopsy and adjuvant radiotherapy that concluded on 08-21-14 Medical History 11/2016 diabetic shif ting in rt eye - Dr French from [facility] Surgical History Tonsillectomy age 21 Surgical History ovarian tumor removed and left ovary Surgical History complete hysterectomy 1993 Surgical History Heart Catherization; [facility] Surgical History Right Shoulder Tear and bone spur removal; [facility] 07-27-12 Surgical History Left Shoulder Rotato [...] for a kidney stone Surgical History mammogram [facility] 04/2017 Surgical History vertabrae fusion 08/2018 Hospitalization History ovarian tumor removed an d left overy Hospitalization History complete hysterectomy 19 94 [employer] Other 12-20-2020 History general Narrative - Reported* Type Description Date Medical History Stress Test; [facility], normal per patient Medical History Pap and Pelvic 3 yea rs ago, OBGYN in [place] Medical History Mammogram over 5 yea rs; Normal at that time per patient Medical History CT Abdomen and Pelvi s over 5 years ago; [facility] Medical History Colonoscopy 8 years ago; in [place], normal in patient Medical History Chest X-Ray 12-15-11; normal, [facility] Medical History Echocardiogram; 12-15; [facility] Medical History Cardiolite Stress Te st 12-16-11; [facility] Medical History Check's sugar's bid Medical History Heart Catherization; [facility] Medical History breast cancer 04/2014 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, status post lumpectomy x2, sentinel lymph node biopsy and adjuvant radiotherapy that concluded on 08-21-14 Medical History 11/2016 diabetic shif ting in rt eye - Dr French from [facility] Surgical History Tonsillectomy age 21 Surgical History ovarian tumor removed and left ovary Surgical History complete hysterectomy 1993 Surgical History Heart Catherization; [facility] Surgical History Right Shoulder Tear and bone spur removal; [facility] 07-27-12 Surgical History Left Shoulder Rotato [...] for a kidney stone Surgical History mammogram [facility] 04/2017 Surgical History vertabrae fusion 08/2018 Hospitalization History ovarian tumor removed an d left overy Hospitalization History complete hysterectomy [employer] Other 12-04-2020 History general Narrative - Reported* Type Description Date Medical History Stress Test; [facility], normal per patient Medical History Pap and Pelvic 3 yea rs ago, OBGYN in [place] Medical History Mammogram over 5 yea rs; Normal at that time per patient Medical History CT Abdomen and Pelvi s over 5 years ago; [facility] Medical History Colonoscopy 8 years ago; in [place], normal in patient Medical History Chest X-Ray 12-15-11; normal, [facility] Medical History Echocardiogram; 12-15; [facility] Medical History Cardiolite Stress Te st 12-16-11; [facility] Medical History Check's sugar's bid Medical History Heart Catherization; [facility] Medical History breast cancer 04/2014 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, status post lumpectomy x2, sentinel lymph node biopsy and adjuvant radiotherapy that concluded on 08-21-14 Medical History 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 - Dr French from [facility] Surgical History Tonsillectomy age 21 Surgical History ovarian tumor removed and left ovary Surgical History complete hysterectomy 1993 Surgical History Heart Catherization; [facility] Surgical History Right Shoulder Tear and bone spur removal; [facility] 07-27-12 Surgical History Left Shoulder Rotato [...] for a kidney stone Surgical History mammogram [facility] [place] Surgical History vertabrae fusion 08/2018 Hospitalization History ovarian tumor removed an d left overy Hospitalization History complete hysterectomy [employer] Other 11-08-2020 History general Narrative - Reported* Type Description Date Medical History Stress Test; [facility], normal per patient Medical History Pap and Pelvic 3 yea rs ago, OBGYN in [place] Medical History Mammogram over 5 yea rs; Normal at that time per patient Medical History CT Abdomen and Pelvi s over 5 years ago; [facility] Medical History Colonoscopy 8 years ago; in [place], normal in patient Medical History Chest X-Ray 12-15-11; normal, [facility] Medical History Echocardiogram; 12-15; [facility] Medical History Cardiolite Stress Te st 12-16-11; [facility] Medical History Check's sugar's bid Medical History Heart Catherization; [facility] Medical History breast cancer 04/2014 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, status post lumpectomy x2, sentinel lymph node biopsy and adjuvant radiotherapy that concluded on 08-21-14 Medical History 11/2016 diabetic shif ting in rt eye - Dr French from [facility] Surgical History Tonsillectomy age 21 Surgical History ovarian tumor removed and left ovary Surgical History complete hysterectomy 1993 Surgical History Heart Catherization; [facility] Surgical History Right Shoulder Tear and bone spur removal; [facility] 07-27-12 Surgical History Left Shoulder Rotato [...] for a kidney stone Surgical History mammogram [facility] [place] Surgical History vertabrae fusion 08/2018 Hospitalization History ovarian tumor removed an d left overy Hospitalization History complete hysterectomy [employer] Other 06-20-2020 History general Narrative - Reported* Type Description Date Medical History Stress Test; [facility], normal per patient Medical History Pap and Pelvic 3 yea rs ago, OBGYN in [place] Medical History Mammogram over 5 yea rs; Normal at that time per patient Medical History CT Abdomen and Pelvi s over 5 years ago; [facility] Medical History Colonoscopy 8 years ago; in [place], normal in patient Medical History Chest X-Ray 12-15-11; normal, [facility] Medical History Echocardiogram; 12-15; [facility] Medical History Cardiolite Stress Te st 12-16-11; [facility] Medical History Check's sugar's bid Medical History Heart Catherization; [facility] Medical History breast cancer 04/2014 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, status post lumpectomy x2, sentinel lymph node biopsy and adjuvant radiotherapy that concluded on 08-21-14 Medical History 11/2016 diabetic shif ting in rt eye - Dr French from [facility] Surgical History Tonsillectomy age 21 Surgical History ovarian tumor removed and left ovary Surgical History complete hysterectomy 1993 Surgical History Heart Catherization; [facility] Surgical History Right Shoulder Tear and bone spur removal; [facility] 07-27-12 Surgical History Left Shoulder Rotato [...] for a kidney stone Surgical History mammogram [facility] [place] Surgical History vertabrae fusion 08/2018 Hospitalization History ovarian tumor removed an d left overy Hospitalization History complete hysterectomy 19 94 [employer] Other 05-03-2020 History general Narrative - Reported* Type Description Date Medical History Stress Test; [facility], normal per patient Medical History Pap and Pelvic 3 yea rs ago, OBGYN in [place] Medical History Mammogram over 5 yea rs; Normal at that time per patient Medical History CT Abdomen and Pelvi s over 5 years ago; [facility] Medical History Colonoscopy 8 years ago; in [place], normal in patient Medical History Chest X-Ray 12-15-11; normal, [facility] Medical History Echocardiogram; 12-15; [facility] Medical History Cardiolite Stress Te st 12-16-11; [facility] Medical History Check's sugar's bid Medical History Heart Catherization; [facility] Medical History breast cancer 04/2014 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, status post lumpectomy x2, sentinel lymph node biopsy and adjuvant radiotherapy that concluded on 08-21-14 Medical History 11/2016 diabetic shif ting in rt eye - Dr French from [facility] Surgical History Tonsillectomy age 21 Surgical History ovarian tumor removed and left ovary Surgical History complete hysterectomy 1993 Surgical History Heart Catherization; [facility] Surgical History Right Shoulder Tear and bone spur removal; [facility] 07-27-12 Surgical History Left Shoulder Rotato [...] for a kidney stone Surgical History mammogram [facility] 04/[place] Surgical History vertabrae fusion 08/2018 Hospitalization History ovarian tumor removed an d left overy Hospitalization History complete hysterectomy 19 94 [employer] Other 04-26-2020 History general Narrative - Reported* Type Description Date Medical History Stress Test; [facility], normal per patient Medical History Pap and Pelvic 3 yea rs ago, OBGYN in [place] Medical History Mammogram over 5 yea rs; Normal at that time per patient Medical History CT Abdomen and Pelvi s over 5 years ago; [facility] Medical History Colonoscopy 8 years ago; in [place], normal in patient Medical History Chest X-Ray 12-15-11; normal, [facility] Medical History Echocardiogram; 12-15; [facility] Medical History Cardiolite Stress Te st 12-16-11; [facility] Medical History Check's sugar's bid Medical History Heart Catherization; [facility] Medical History breast cancer 04/2014 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, status post lumpectomy x2, sentinel lymph node biopsy and adjuvant radiotherapy that concluded on 08-21-14 Medical History 11/2016 diabetic ayo 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 - Dr French from [facility] Surgical History Tonsillectomy age 21 Surgical History ovarian tumor removed and left ovary Surgical History complete hysterectomy 1993 Surgical History Heart Catherization; [facility] Surgical History Right Shoulder Tear and bone spur removal; [facility] 07-27-12 Surgical History Left Shoulder Rotato [...] for a kidney stone Surgical History mammogram [facility] 04/2017 Surgical History vertabrae fusion 08/2018 Hospitalization History ovarian tumor removed an d left overy Hospitalization History complete hysterectomy 19 94 [employer] Other 04-21-2020 History general Narrative - Reported* Type Description Date Medical History Stress Test; [facility], normal per patient Medical History Pap and Pelvic 3 yea rs ago, OBGYN in [place] Medical History Mammogram over 5 yea rs; Normal at that time per patient Medical History CT Abdomen and Pelvi s over 5 years ago; [facility] Medical History Colonoscopy 8 years ago; in [place], normal in patient Medical History Chest X-Ray 12-15-11; normal, [facility] Medical History Echocardiogram; 12-15; [facility] Medical History Cardiolite Stress Te st 12-16-11; [facility] Medical History Check's sugar's bid Medical History Heart Catherization; [facility] Medical History breast cancer 04/2014 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, status post lumpectomy x2, sentinel lymph node biopsy and adjuvant radiotherapy that concluded on 08-21-14 Medical History 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 - Dr French from [facility] Surgical History Tonsillectomy age 21 Surgical History ovarian tumor removed and left ovary Surgical History complete hysterectomy 1993 Surgical History Heart Catherization; [facility] Surgical History Right Shoulder Tear and bone spur removal; [facility] 07-27-12 Surgical History Left Shoulder Rotato [...] for a kidney stone Surgical History mammogram [facility] 04/2017 Surgical History vertabrae fusion 08/2018 Hospitalization History ovarian tumor removed an d left overy Hospitalization History complete hysterectomy 19 94 [employer] Other 03-12-2020 History general Narrative - Reported* Type Description Date Medical History Stress Test; [facility], normal per patient Medical History Pap and Pelvic 3 yea rs ago, OBGYN in [place] Medical History Mammogram over 5 yea rs; Normal at that time per patient Medical History CT Abdomen and Pelvi s over 5 years ago; [facility] Medical History Colonoscopy 8 years ago; in [place], normal in patient Medical History Chest X-Ray 12-15-11; normal, [facility] Medical History Echocardiogram; 12-15; [facility] Medical History Cardiolite Stress Te st 12-16-11; [facility] Medical History Check's sugar's bid Medical History Heart Catherization; [facility] Medical History breast cancer 04/2014 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, status post lumpectomy x2, sentinel lymph node biopsy and adjuvant radiotherapy that concluded on 08-21-14 Medical History 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 - Dr French from [facility] Surgical History Tonsillectomy age 21 Surgical History ovarian tumor removed and left ovary Surgical History complete hysterectomy 1993 Surgical History Heart Catherization; [facility] Surgical History Right Shoulder Tear and bone spur removal; [facility] 07-27-12 Surgical History Left Shoulder Rotato [...] for a kidney stone Surgical History mammogram [facility] 04/2017 Surgical History vertabrae fusion 08/2018 Hospitalization History ovarian tumor removed an d left overy Hospitalization History complete hysterectomy 19 94 [employer] Other 03-07-2020 History general Narrative - Reported* Type Description Date Medical History Stress Test; [facility], normal per patient Medical History Pap and Pelvic 3 yea rs ago, OBGYN in [place] Medical History Mammogram over 5 yea rs; Normal at that time per patient Medical History CT Abdomen and Pelvi s over 5 years ago; [facility] Medical History Colonoscopy 8 years ago; in [place], normal in patient Medical History Chest X-Ray 12-15-11; normal, [facility] Medical History Echocardiogram; 12-15; [facility] Medical History Cardiolite Stress Te st 12-16-11; [facility] Medical History Check's sugar's bid Medical History Heart Catherization; [facility] Medical History breast cancer 04/2014 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, status post lumpectomy x2, sentinel lymph node biopsy and adjuvant radiotherapy that concluded on 08-21-14 Medical History 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 - Dr French from [facility] Surgical History Tonsillectomy age 21 Surgical History ovarian tumor removed and left ovary Surgical History complete hysterectomy 1993 Surgical History Heart Catherization; [facility] Surgical History Right Shoulder Tear and bone spur removal; [facility] 07-27-12 Surgical History Left Shoulder Rotato [...] for a kidney stone Surgical History mammogram [facility] 04/2017 Surgical History vertabrae fusion 08/2018 Hospitalization History ovarian tumor removed an d left overy Hospitalization History complete hysterectomy 19 94 [employer] Other 03-04-2020 History general Narrative - Reported* Type Description Date Medical History Stress Test; [facility], normal per patient Medical History Pap and Pelvic 3 yea rs ago, OBGYN in [place] Medical History Mammogram over 5 yea rs; Normal at that time per patient Medical History CT Abdomen and Pelvi s over 5 years ago; [facility] Medical History Colonoscopy 8 years ago; in [place], normal in patient Medical History Chest X-Ray 12-15-11; normal, [facility] Medical History Echocardiogram; 12-15; [facility] Medical History Cardiolite Stress Te st 12-16-11; [facility] Medical History Check's sugar's bid Medical History Heart Catherization; [facility] Medical History breast cancer 04/2014 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, status post lumpectomy x2, sentinel lymph node biopsy and adjuvant radiotherapy that concluded on 08-21-14 Medical History 11/2016 diabetic shif ting in rt eye - Dr French from [facility] Surgical History Tonsillectomy age 21 Surgical History ovarian tumor removed and left ovary Surgical History complete hysterectomy 1993 Surgical History Heart Catherization; [facility] Surgical History Right Shoulder Tear and bone spur removal; [facility] 07-27-12 Surgical History Left Shoulder Rotato [...] for a kidney stone Surgical History mammogram [facility] 04/2017 Surgical History vertabrae fusion 08/2018 Hospitalization History ovarian tumor removed an d left overy Hospitalization History complete hysterectomy 19 94 [employer] Other 02-22-2020 History general Narrative - Reported* Type Description Date Medical History Stress Test; [facility], normal per patient Medical History Pap and Pelvic 3 yea rs ago, OBGYN in [place] Medical History Mammogram over 5 yea rs; Normal at that time per patient Medical History CT Abdomen and Pelvi s over 5 years ago; [facility] Medical History Colonoscopy 8 years ago; in [place], normal in patient Medical History Chest X-Ray 12-15-11; normal, [facility] Medical History Echocardiogram; 12-15; [facility] Medical History Cardiolite Stress Te st 12-16-11; [facility] Medical History Check's sugar's bid Medical History Heart Catherization; [facility] Medical History breast cancer 04/2014 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, status post lumpectomy x2, sentinel lymph node biopsy and adjuvant radiotherapy that concluded on 08-21-14 Medical History 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 - Dr French from [facility] Surgical History Tonsillectomy age 21 Surgical History ovarian tumor removed and left ovary Surgical History complete hysterectomy 1993 Surgical History Heart Catherization; [facility] Surgical History Right Shoulder Tear and bone spur removal; [facility] 07-27-12 Surgical History Left Shoulder Rotato [...] for a kidney stone Surgical History mammogram [facility] 04/2017 Surgical History vertabrae fusion 08/2018 Hospitalization History ovarian tumor removed an d left overy Hospitalization History complete hysterectomy [employer] Other 02-12-2020 History general Narrative - Reported* Type Description Date Medical History Stress Test; [facility], normal per patient Medical History Pap and Pelvic 3 yea rs ago, OBGYN in [place] Medical History Mammogram over 5 yea rs; Normal at that time per patient Medical History CT Abdomen and Pelvi s over 5 years ago; [facility] Medical History Colonoscopy 8 years ago; in [place], normal in patient Medical History Chest X-Ray 12-15-11; normal, [facility] Medical History Echocardiogram; 12-15; [facility] Medical History Cardiolite Stress Te st 12-16-11; [facility] Medical History Check's sugar's bid Medical History Heart Catherization; [facility] Medical History breast cancer 04/2014 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, status post lumpectomy x2, sentinel lymph node biopsy and adjuvant radiotherapy that concluded on 08-21-14 Medical History 11/2016 diabetic shif ting in rt eye - Dr French from [facility] Surgical History Tonsillectomy age 21 Surgical History ovarian tumor removed and left ovary Surgical History complete hysterectomy 1993 Surgical History Heart Catherization; [facility] Surgical History Right Shoulder Tear and bone spur removal; [facility] 07-27-12 Surgical History Left Shoulder Rotato [...] for a kidney stone Surgical History mammogram [facility] 04/2017 Surgical History vertabrae fusion 08/2018 Hospitalization History ovarian tumor removed an d left overy Hospitalization History complete hysterectomy [facility] [employer] Other 10-27-2019 History general Narrative - Reported* Type Description Date Medical History Stress Test; [facility], normal per patient Medical History Pap and Pelvic 3 yea rs ago, OBGYN in [place] Medical History Mammogram over 5 yea rs; Normal at that time per patient Medical History CT Abdomen and Pelvi s over 5 years ago; [facility] Medical History Colonoscopy 8 years ago; in [place], normal in patient Medical History Chest X-Ray 12-15-11; normal, [facility] Medical History Echocardiogram; 12-15; [facility] Medical History Cardiolite Stress Te st 12-16-11; [facility] Medical History Check's sugar's bid Medical History Heart Catherization; [facility] Medical History breast cancer 04/2014 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, status post lumpectomy x2, sentinel lymph node biopsy and adjuvant radiotherapy that concluded on 08-21-14 Medical History 11/2016 diabetic shif ting in rt eye - Dr French from [facility] Surgical History Tonsillectomy age 21 Surgical History ovarian tumor removed and left ovary Surgical History complete hysterectomy 1993 Surgical History Heart Catherization; [facility] Surgical History Right Shoulder Tear and bone spur removal; [facility] 07-27-12 Surgical History Left Shoulder Rotato [...] for a kidney stone Surgical History mammogram [facility] 04/2017 Surgical History vertabrae fusion 08/2018 Hospitalization History ovarian tumor removed an d left overy Hospitalization History complete hysterectomy 94 [employer] Other Evaluation noteNo InformationNort Year Up Other Evaluation noteNo assessment information available [facility] Work Phone: Reason for referral (narrative)* Reason appt pt needs cons ult w/ Dr. Cornejo or Viki for evaluation of right shoulder pain Diagnosis 1 Shoulder pain, right (M25.511) Referral Organization [facility] Referring Provider First Name Rin Referring Provider Last Name Lyn Referring Provider Specialty Family Prac meenu Referred Organization [facility] Referred Address ,[place], [place],[address] Referred Provider Specialty Orthopedic S urgery Referral Priority Routine General Notes HoracioFlorinda 02/08/2022 05:31:28 PM > [facility] referral form hard faxed with visit note, med list and insurance card. pt understands she will be contacted to schedule this appt. [employer] Other Summary Purpose Family History Relationship Condition Age at Onset Recorded Date/T rob father Pulmonary emphysema Unknown Not Specified Cerebrovascular accident (CVA) Unknown Advance Directives Advance Directive Response Recorded Date/ Time Advance Directives No February 15, 2017 3:18pm Hospital Course Note MR#: [id number] I [facility] Pt. Name: Criselda Morfin Admitted: 08/23/2018 [...] CREATED AUTHOR AUTHOR'S ORGANIZ ATION 12/09/2018 [facility] DATE CREATED AUTHOR AUTHOR'S ORGANIZ ATION 08/31/2022 [facility] DATE CREATED AUTHOR AUTHOR'S ORGANIZ ATION 05/07/2023 [facility] REASON FOR VISIT (unrecogniz ed section [...] BE BASED ON THE PRIMARY CLINICAL RECORDS. [employer] provides no warranty or guarantee of the accuracy or completeness of information in this document.
== END 2023-10-18 09:45 | disposition home or self-care (01) ==
LOC: US 09:44
PROVIDERS: PCP Family Medicine; Visit Provider Family Medicine
DX: E05.90 Thyrotoxicosis, unspecified without thyrotoxic crisis or storm (principal)
CPT/HCPCS: 76536

== ENCOUNTER 2023-11-30 06:31 | Outpatient (OUT) | payer OTHER, SELFPAY ==
--- OUTSIDE RECORDS SUMMARY | 2023-11-30 06:34 | XMS_ITS | CCD ---
Author Organization [facility] Care Team Providers Care Executive Vice President And Chief Operating Officer Name Role Phone Selin Jean Attending Unavailable Ted, Selin Pastor Attending Unavailable CHUCHO HONEYCUTT Attending Unavailable Ted, Selin Pastor Attending Unavailable UNKNOWN, PROVIDER Admitting Unavailable SELF, REFERRED Referring Unavailable SELF, REFERRED Primary Care Unavailable CHIP CEDILLO Attending Unavailable [place] Procedure Practitioner Unavailab le UNKNOWN, PROVIDER Surgeon [...] 1 tablet by mouth once daily Vitamin C78-Oexcl Acid Active 1 TAB PO Daily May [...] kidney disease Other aftercare (1 source) Other intermediate frame tender (current) drug therapy; 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: [OTH RECORDS COORDINATOR CURRENT DRUG THERAPY] Onset: 05-03-2022 Episodic Other aftercare (1 source) senior living (current) use of oral hypoglycemic drugs; 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: [RECORDS COORDINATOR USE ORAL HYPOGLYCEMIC DX] Onset: 05-03-2022 Episodic Pneumonia (except that caused by tuberculosis or sexually transmitted disease) (1 source) Bronchopneumonia, unspecified organism; 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: [BRONCHOPNEUMONIA UNS ORGANISM] Onset: 05-03-2022 Episodic Unclassified (1 source) COUGH, UNSPECIFIED; 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: [COUGH, UNSPECIFIED] Onset: 04-30-2022 Results Test Name Value Interpretation Reference Range Facility MM screening mammo BI w/CADo n 05-03-2023 MM screening mammo BI w/CAD [facility] [place] [address] [place] [address] Mammography Report Signed Patient: Leslee Morfin MR#: [id number] : 1955 Acct:[id number] Age/Sex: 67 / F ADM Date: 05/03/23 Loc: [place] Room: Type: [facility] Attending Dr: Rin Nicholson DO Copies to: [...] Carmela Cuevas M.D.05/03/2023 1:52 PM Dictation Location: [facility] Transcribed By: [facility] 05/03/23 1352 Dictated By: Carmela Cuevas MD 05/03/23 1349 Signed By: 05/03/23 1352 [facility] PROF CHEM 8 (BAS METB)on Anion gap [Moles/Vol] 14.4 mmol/L Normal [facility] Comment on above: Performed By: #### B MP #### [facility] [address] [place] [address] Dr. Raf Pearl Calcium [Mass/Vol] 9.3 mg/dL Normal 8.5-10.1 [facility] Comment on above: Performed By: #### B MP #### [facility] [address] [address] [address] Raf Pearl Chloride [Moles/Vol] 102 mmol/L Normal 98-107 [facility] Comment on above: Performed By: #### B MP #### [facility] [address] [address] [address] Raf Pearl CO2 [Moles/Vol] 26.9 mmol/L Normal 21.0-32.0 [facility] Comment on above: Performed By: #### B MP #### [facility] [address] [address] [address] Raf Pearl Creatinine [Mass/Vol] 1.32 mg/dL Critically high 0.55-1.02 [facility] Comment on above: Performed By: #### B MP #### [facility] [address] [place] [address] Dr. Raf Pearl EGFR-AF STATELESS 49 mL/min/1.73m2 Critically low >=60 [facility] Comment on above: Performed By: #### B MP #### [facility] [address] [place] [address] Dr. Raf Pearl EGFR-NON AF STATELESS 40 mL/min/1.73m2 Critically low >=60 [facility] Comment on above: Performed By: #### B MP #### [facility] [address] [address] [address] Raf Pearl Glucose [Mass/Vol] 151 mg/dL Critically high 74-106 [facility] Comment on above: Performed By: #### B MP #### [facility] [address] [address] [address] Raf Pearl Potassium [Moles/Vol] 4.3 mmol/L Normal 3.5-5.1 [facility] Comment on above: Performed By: #### B MP #### [facility] [address] [address] [address] Raf Pearl Sodium [Moles/Vol] 139 mmol/L Normal 136-145 [facility] Comment on above: Performed By: #### B MP #### [facility] [address] [address] [address] Raf Pearl Urea nitrogen [Mass/Vol] 17.0 mg/dL Normal 7.0-18.0 [facility] Comment on above: Performed By: #### B MP #### [facility] [address] [address] [address] Raf Pearl Urea nitrogen/Creatinine [Mass ratio] 12.9 mg/mg Normal [facility] Comment on above: Performed By: #### B MP #### [facility] [address] [address] [address] Raf Pearl PROF CHEM 8 (BAS METB)on Anion gap [Moles/Vol] 9.7 mmol/L Normal [facility] Comment on above: Performed By: #### B MP #### [facility] [address] [address] [address] Raf Pearl Calcium [Mass/Vol] 9.1 mg/dL Normal 8.5-10.1 [facility] Comment on above: Performed By: #### B MP #### [facility] [address] [address] [address] Raf Pearl Chloride [Moles/Vol] 100 mmol/L Normal 98-107 [facility] Comment on above: Performed By: #### B MP #### [facility] [address] [address] [address] Raf Pearl CO2 [Moles/Vol] 28.0 mmol/L Normal 21.0-32.0 [facility] Comment on above: Performed By: #### B MP #### [facility] [address] [address] [address] Raf Pearl Creatinine [Mass/Vol] 1.18 mg/dL Critically high 0.55-1.02 [facility] Comment on above: Performed By: #### B MP #### [facility] [address] [place] [address] Dr. Raf Pearl EGFR-AF STATELESS 56 mL/min/1.73m2 Critically low >=60 [facility] Comment on above: Performed By: #### B MP #### [facility] [address] [place] [address] Dr. Raf Pearl EGFR-NON AF STATELESS 46 mL/min/1.73m2 Critically low >=60 [facility] Comment on above: Performed By: #### B MP #### [facility] [address] [place] [address] Dr. Raf Pearl Glucose [Mass/Vol] 113 mg/dL Critically high 74-106 [facility] Comment on above: Performed By: #### B MP #### [facility] [address] [address] [address] Raf Pearl Potassium [Moles/Vol] 3.7 mmol/L Normal 3.5-5.1 [facility] Comment on above: Performed By: #### B MP #### [facility] [address] [place] [address] Dr. Raf Pearl Sodium [Moles/Vol] 134 mmol/L Critically low 136-145 [facility] Comment on above: Performed By: #### B MP #### [facility] [address] [place] [address] Dr. Raf Pearl Urea nitrogen [Mass/Vol] 13.0 mg/dL Normal 7.0-18.0 [facility] Comment on above: Performed By: #### B MP #### [facility] [address] [place] [address] Dr. Raf Pearl Urea nitrogen/Creatinine [Mass ratio] 11.0 mg/mg Normal [facility] Comment on above: Performed By: #### B MP #### [facility] [address] [place] [address] Dr. Raf Pearl FOLATE ([facility])on 3 Folate >20.0 Normal >3.0 [facility] Comment on above: Result Comment: A se rum folate concentration of less than 3.1 ng/mL is considered to represent clinical deficiency. Performed By: #### F OLALC #### [facility] [address] [place] [address] Dr. Raf Pearl CBC AUTO DIFFon 07-31-2022 BASO # 0.1 103/ul Normal 0.0-0.1 [facility] Comment on above: Performed By: #### M ALBR #### [facility] [address] [place] [address] Dr. Raf Pearl Basophils/100 WBC (Bld) 1.3 % Normal 0.2-2.0 [facility] Comment on above: Performed By: #### M ALBR #### [facility] [address] [place] [address] Dr. Raf Pearl EO # 0.4 103/ul Normal 0.0-0.7 [facility] Comment on above: Performed By: #### M ALBR #### [facility] [address] [place] [address] Dr. Raf Pearl Eosinophils/100 WBC (Bld) 4.5 % Normal 0.9-7.0 [facility] Comment on above: Performed By: #### M ALBR #### [facility] [address] [place] [address] Dr. Raf Pearl Erythrocyte distribution width (RBC) [Ratio] 13.2 % Normal 11.0-15.0 [facility] Comment on above: Performed By: #### M ALBR #### [facility] [address] [place] [address] Dr. Raf Pearl Hematocrit (Bld) [Volume fraction] 33.8 % Critically low 36.0-48.0 [facility] Comment on above: Performed By: #### M ALBR #### [facility] [address] [place] [address] Dr. Raf Pearl Hemoglobin (Bld) [Mass/Vol] 11.5 g/dL Critically low 12.0-16.0 [facility] Comment on above: Performed By: #### M ALBR #### [facility] [address] [place] [address] Dr. Raf Pearl IG # 0.02 10e3/ul Normal 0.00-0.03 [facility] Comment on above: Performed By: #### M ALBR #### [facility] [address] [place] [address] Dr. Raf Pearl IG % 0.2 % Normal 0.0-0.5 [facility] Comment on above: Performed By: #### M ALBR #### [facility] [address] [place] [address] Dr. Raf Pearl LYMPH # 2.6 103/ul Normal 1.2-3.8 [facility] Comment on above: Performed By: #### M ALBR #### [facility] [address] [place] [address] Dr. Raf Pearl Lymphocytes/100 WBC (Bld) 31.6 % Normal 20.5-60.0 [facility] Comment on above: Performed By: #### M ALBR #### [facility] [address] [place] [address] Dr. Raf Pearl MANUAL DIFF REQ NO Normal [facility] Comment on above: Performed By: #### M ALBR #### [facility] [address] [place] [address] Dr. Raf Pearl MCH (RBC) [Entitic mass] 31.1 pg Normal 26.7-34.0 [facility] Comment on above: Performed By: #### M ALBR #### [facility] [address] [address] [address] Raf Pearl MCHC (RBC) [Mass/Vol] 34.0 g/dL Normal 29.9-35.2 [facility] Comment on above: Performed By: #### M ALBR #### [facility] [address] [place] [address] Dr. Raf Pearl MCV (RBC) [Entitic vol] 91.4 fL Normal 81.0-99.0 [facility] Comment on above: Performed By: #### M ALBR #### [facility] [address] [place] [address] Dr. Raf Pearl MONO # 0.6 103/ul Normal 0.3-0.8 [facility] Comment on above: Performed By: #### M ALBR #### [facility] [address] [place] [address] Dr. Raf Pearl Monocytes/100 WBC (Bld) 7.2 % Normal 1.7-12.0 [facility] Comment on above: Performed By: #### M ALBR #### [facility] [address] [place] [address] Dr. Raf Pearl NEUT # 4.6 103/ul Normal 1.4-6.5 [facility] Comment on above: Performed By: #### M ALBR #### [facility] [address] [place] [address] Dr. Raf Pearl Neutrophils/100 WBC (Bld) 55.2 % Normal 43.0-75.0 [facility] Comment on above: Performed By: #### M ALBR #### [facility] [address] [place] [address] Dr. Raf Pearl Platelet mean volume (Bld) [Entitic vol] 10.0 fL Normal 9.5-13.5 [facility] Comment on above: Performed By: #### M ALBR #### [facility] [address] [place] [address] Dr. Raf Pearl PLT 352 103/ul Normal 150-450 [facility] Comment on above: Performed By: #### M ALBR #### [facility] [address] [address] [address] Raf Pearl RBC 3.70 106/ul Critically low 4.20-5.40 [facility] Comment on above: Performed By: #### M ALBR #### [facility] [address] [address] [address] Raf Pearl WBC 8.2 103/ul Normal 4.0-11.0 [facility] Comment on above: Performed By: #### M ALBR #### [facility] [address] [address] [address] Raf Pearl CULTURE URINEon 07-31-2022 CULTURE URINE Culture Observations: NO GROWTH. Normal [facility] Comment on above: Performed By: #### B MP #### [facility] [address] [place] [address] Dr. Raf Pearl GLYCOHEMOGLOBIN A1Con 2022 ADA RECOMMENDATION SEE BELOW Normal [facility] Comment on above: Result Comment: ADA RECOMMENDED LIMIT 4.0 - 6.0 ADA THERAPEUTIC TARGET < 7.0 ACTION SUGGESTED > 7.0 Performed By: #### B MP #### [facility] [address] [place] [address] Dr. Raf Pearl Glucose [Mass/Vol] 140 mg/dL Normal [facility] Comment on above: Performed By: #### B MP #### [facility] [address] [place] [address] Dr. Raf Pearl HbA1c (Bld) [Mass fraction] 6.5 % Critically high 4.5-6.2 [facility] Comment on above: Performed By: #### B MP #### [facility] [address] [place] [address] Dr. Raf Pearl LIPID PROFILEon 07-31-2022 CHOL-HDL RATIO NORM SEE BELOW Normal [facility] Comment on above: Result Comment: 3.3 - 4.4 LOW RISK 4.4 - 7.1 AVERAGE RISK 7.1 - 11.0 MODERATE RISK >11.0 HIGH RISK Performed By: #### C MP, LIPID, TSH #### [facility] [address] [address] [address] Raf Pearl Cholesterol [Mass/Vol] 166 mg/dL Normal <=200 [facility] Comment on above: Performed By: #### C MP, LIPID, TSH #### [facility] [address] [address] [address] Raf Pearl Cholesterol in HDL [Mass/Vol] 57 mg/dL Normal 40-60 [facility] Comment on above: Performed By: #### C MP, LIPID, TSH #### [facility] [address] [address] [address] Raf Pearl Cholesterol in LDL [Mass/Vol] 91.4 mg/dL Normal [facility] Comment on above: Performed By: #### C MP, LIPID, TSH #### [facility] [address] [address] [address] Raf Pearl Cholesterol.total/Ch olesterol in HDL [Mass ratio] 2.9 {ratio} Normal [facility] Comment on above: Performed By: #### C MP, LIPID, TSH #### [facility] [address] [address] [address] Raf Pearl HDL NORMAL > or = 60 mg/dl - LOW CARDIOVASCULAR RISK <40 mg/dl - HIGH CARDIOVASCULAR RISK Normal [facility] Comment on above: Performed By: #### C MP, LIPID, TSH #### [facility] [address] [address] [address] Raf Pearl LDL CALC NORMAL SEE BELOW Normal [facility] Comment on above: Result Comment: <100 mg/dl OPTIMAL 100 - 129 mg/dl NEAR OR ABOVE OPTIMAL 130 - 159 mg/dl BORDERLINE HIGH 160 - 189 mg/dl HIGH >190 mg/dl VERY HIGH Performed By: #### C MP, LIPID, TSH #### [facility] [address] [address] [address] Raf Pearl Triglyceride [Mass/Vol] 88 mg/dL Normal <=150 [facility] Comment on above: Performed By: #### C MP, LIPID, TSH #### [facility] [address] [address] [address] Raf Pearl VLDL CALC 17.6 mg/dL Normal [facility] Comment on above: Performed By: #### C MP, LIPID, TSH #### [facility] [address] [place] [address] Dr. Raf Pearl MICROALBUMIN, RAND URon 07-17 mALB <1.3 Normal <=30.0 [facility] Comment on above: Performed By: #### M ALBR #### [facility] [address] [address] [address] Raf Pearl PROF 14(COMP METB)on 023 Albumin [Mass/Vol] 3.6 g/dL Normal 3.4-5.0 [facility] Comment on above: Performed By: #### C MP, LIPID, TSH #### [facility] [address] [place] [address] Dr. Raf Pearl Albumin/Globulin [Mass ratio] 1.0 {ratio} Normal [facility] Comment on above: Performed By: #### C MP, LIPID, TSH #### [facility] [address] [place] [address] Dr. Raf Pearl ALP [Catalytic activity/Vol] 70 U/L Normal 46-116 [facility] Comment on above: Performed By: #### C MP, LIPID, TSH #### [facility] [address] [place] [address] Dr. Raf Pearl ALT [Catalytic activity/Vol] 22 U/L Normal 14-59 [facility] Comment on above: Performed By: #### C MP, LIPID, TSH #### [facility] [address] [place] [address] Dr. Raf Pearl Anion gap [Moles/Vol] 11.8 mmol/L Normal [facility] Comment on above: Performed By: #### C MP, LIPID, TSH #### [facility] [address] [place] [address] Dr. Raf Pearl AST [Catalytic activity/Vol] 19 U/L Normal 15-37 [facility] Comment on above: Performed By: #### C MP, LIPID, TSH #### [facility] [address] [address] [address] Raf Pearl Bilirubin [Mass/Vol] 0.3 mg/dL Normal 0.2-1.0 [facility] Comment on above: Performed By: #### C MP, LIPID, TSH #### [facility] [address] [address] [address] Raf Pearl Calcium [Mass/Vol] 9.0 mg/dL Normal 8.5-10.1 [facility] Comment on above: Performed By: #### C MP, LIPID, TSH #### [facility] [address] [address] [address] Raf Pearl Chloride [Moles/Vol] 104 mmol/L Normal 98-107 [facility] Comment on above: Performed By: #### C MP, LIPID, TSH #### [facility] [address] [place] [address] Dr. Raf Pearl CO2 [Moles/Vol] 28.6 mmol/L Normal 21.0-32.0 [facility] Comment on above: Performed By: #### C MP, LIPID, TSH #### [facility] [address] [address] [address] Raf Pearl Creatinine [Mass/Vol] 1.48 mg/dL Critically high 0.55-1.02 [facility] Comment on above: Performed By: #### C MP, LIPID, TSH #### [facility] [address] [address] [address] Raf Pearl EGFR-AF STATELESS 43 mL/min/1.73m2 Critically low >=60 [facility] Comment on above: Performed By: #### C MP, LIPID, TSH #### [facility] [address] [address] [address] Raf Pearl EGFR-NON AF STATELESS 35 mL/min/1.73m2 Critically low >=60 [facility] Comment on above: Performed By: #### C MP, LIPID, TSH #### [facility] [address] [address] [address] Raf Pearl Globulin (S) [Mass/Vol] 3.5 g/dL Normal [facility] Comment on above: Performed By: #### C MP, LIPID, TSH #### [facility] [address] [address] [address] Raf Pearl Glucose [Mass/Vol] 102 mg/dL Normal 74-106 [facility] Comment on above: Performed By: #### C MP, LIPID, TSH #### [facility] [address] [place] [address] Dr. Raf Pearl Potassium [Moles/Vol] 4.4 mmol/L Normal 3.5-5.1 [facility] Comment on above: Performed By: #### C MP, LIPID, TSH #### [facility] [address] [place] [address] Dr. Raf Pearl Protein [Mass/Vol] 7.1 g/dL Normal 6.4-8.2 [facility] Comment on above: Performed By: #### C MP, LIPID, TSH #### [facility] [address] [place] [address] Dr. Raf Pearl Sodium [Moles/Vol] 140 mmol/L Normal 136-145 [facility] Comment on above: Performed By: #### C MP, LIPID, TSH #### [facility] [address] [place] [address] Dr. Raf Pearl Urea nitrogen [Mass/Vol] 21.0 mg/dL Critically high 7.0-18.0 [facility] Comment on above: Performed By: #### C MP, LIPID, TSH #### [facility] [address] [place] [address] Dr. Raf Pearl Urea nitrogen/Creatinine [Mass ratio] 14.2 mg/mg Normal [facility] Comment on above: Performed By: #### C MP, LIPID, TSH #### [facility] [address] [place] [address] Dr. Raf Pearl TSHon 07-31-2022 TSH 2.298 uIU/mL Normal 0.358-3.740 [facility] Comment on above: Performed By: #### C MP, LIPID, TSH #### [facility] [address] [place] [address] Dr. Raf Pearl UA RANDOM W/MICROSCOPICon BACTERIA NONE SEEN Normal NONE SEEN [facility] Comment on above: Performed By: #### B MP #### [facility] [address] [place] [address] Dr. Raf Pearl Bilirubin Ql (U) Negative Normal NEGATIVE [facility] Comment on above: Performed By: #### B MP #### [facility] [address] [place] [address] Dr. Raf Pearl CAST NONE SEEN Normal NONE SEEN [facility] Comment on above: Performed By: #### B MP #### [facility] [address] [place] [address] Dr. Raf Pearl Clarity (U) CLEAR Normal CLEAR [facility] Comment on above: Performed By: #### B MP #### [facility] [address] [place] [address] Dr. Raf Pearl Color (U) LT. YELLOW Normal YELLOW [facility] Comment on above: Performed By: #### B MP #### [facility] [address] [place] [address] Dr. Raf Pearl Crystals LM Nom (Urine sed) NONE SEEN Normal NONE SEEN [facility] Comment on above: Performed By: #### B MP #### [facility] [address] [place] [address] Dr. Raf Pearl Epithelial cells LM Ql (Urine sed) NONE SEEN Normal NONE SEEN /RARE [facility] Comment on above: Performed By: #### B MP #### [facility] [address] [place] [address] Dr. Raf Pearl Glucose Ql (U) Negative Normal NEGATIVE [facility] Comment on above: Performed By: #### B MP #### [facility] [address] [place] [address] Dr. Raf Pearl Hemoglobin Ql (U) Negative Normal NEGATIVE [facility] Comment on above: Performed By: #### B MP #### [facility] [address] [place] [address] Dr. Raf Pearl Ketones Ql (U) Negative Normal NEGATIVE [facility] Comment on above: Performed By: #### B MP #### [facility] [address] [place] [address] Dr. Raf Pearl LEUKOCYTES Negative Normal NEGATIVE [facility] Comment on above: Performed By: #### B MP #### [facility] [address] [place] [address] Dr. Raf Pearl MUCOUS NONE SEEN Normal NONE SEEN [facility] Comment on above: Performed By: #### B MP #### [facility] [address] [place] [address] Dr. Raf Pearl Nitrite Ql (U) Negative Normal NEGATIVE [facility] Comment on above: Performed By: #### B MP #### [facility] [address] [place] [address] Dr. Raf Pearl pH (U) 7.0 [pH] Normal 5-9 [facility] Comment on above: Performed By: #### B MP #### [facility] [address] [place] [address] Dr. Raf Pearl RBC 0-2 Normal 0-2 [facility] Comment on above: Performed By: #### B MP #### [facility] [address] [place] [address] Dr. Raf Pearl SPEC GRAVITY <=1.005 Abnormal 1.005-<=1.025 [facility] [facility] Comment on above: Performed By: #### B MP #### [facility] [address] [place] [address] Dr. Raf Pearl UA PROTEIN Negative Normal NEGATIVE/ TRACE [facility] Comment on above: Performed By: #### B MP #### [facility] [address] [place] [address] Dr. Raf Pearl Urobilinogen Qn (U) 0.2 {Tawana'U}/dL Normal 0.2 - 1. 0 [facility] Comment on above: Performed By: #### B MP #### [facility] [address] [place] [address] Dr. Raf Pearl WBC NONE SEEN Normal NONE SEEN [facility] Comment on above: Performed By: #### B MP #### [facility] [address] [address] [address] Raf Pearl VITAMIN B12on 07-31-2022 Cobalamin (Vitamin B12) [Mass/Vol] 600.0 pg/mL Normal 193.0-986.0 [facility] Comment on above: Performed By: #### B MP #### [facility] [address] [address] [address] Raf Pearl Covid-19 PCR ([facility])on 04-18 SARS-CoV-2 (COVID-19) RNA KHANH+probe Ql (Unsp spec) Not detected Normal NOT DETECTED [facility] Comment on above: Result Comment: When [...] for this test is supported by the [place] of [employer] and Human Service's declaration that [...] used). Performed By: #### C VDTBH #### [facility] [address] [place] [address] Dr. Raf Pearl INFLUENZA A AND B AGon 04-30 INFLUANEGH SEE BELOW Normal [facility] Comment on above: Result Comment: Nega tive for Flu A protein angiten. Infection due to Flu A cannot be ruled out. Flu A angiten in the sample may be below the detection limit of the test. Performed By: #### B MP #### [facility] [address] [address] [address] Raf Pearl INFLUBNEGH SEE BELOW Normal [facility] Comment on above: Result Comment: Nega tive for Flu B protein antigen. Infection due to Flu B cannot be ruled out. Flu B antigen in the sample may be below the detection limit of the test. Performed By: #### B MP #### [facility] [address] [place] [address] Dr. Raf Pearl INFLUENZA A AG Negative Normal NEGATIVE SEE COMMENT [facility] Comment on above: Performed By: #### B MP #### [facility] [address] [place] [address] Dr. Raf Pearl INFLUENZA B AG Negative Normal NEGATIVE SEE COMMENT [facility] Comment on above: Performed By: #### B MP #### [facility] [address] [place] [address] Dr. Raf Pearl XR CHEST 2 Von [...] BUDDY LEMOS Date: 2022-04-30 19:38 Normal [facility] PROF CHEM 8 (BAS METB)on Anion gap [Moles/Vol] 12.6 mmol/L Normal [facility] Comment on above: Performed By: #### B MP #### [facility] [address] [place] [address] Dr. Raf Pearl Calcium [Mass/Vol] 9.4 mg/dL Normal 8.5-10.1 [facility] Comment on above: Performed By: #### B MP #### [facility] [address] [place] [address] Dr. Raf Pearl Chloride [Moles/Vol] 99 mmol/L Normal 98-107 [facility] Comment on above: Performed By: #### B MP #### [facility] [address] [place] [address] Dr. Raf Pearl CO2 [Moles/Vol] 29.3 mmol/L Normal 21.0-32.0 [facility] Comment on above: Performed By: #### B MP #### [facility] [address] [address] [address] Raf Pearl Creatinine [Mass/Vol] 1.15 mg/dL Critically high 0.55-1.02 [facility] Comment on above: Performed By: #### B MP #### [facility] [address] [address] [address] Raf Pearl EGFR-AF STATELESS 57 mL/min/1.73m2 Critically low >=60 [facility] Comment on above: Performed By: #### B MP #### [facility] [address] [address] [address] Raf Pearl EGFR-NON AF STATELESS 47 mL/min/1.73m2 Critically low >=60 [facility] Comment on above: Performed By: #### B MP #### [facility] [address] [address] [address] Raf Pearl Glucose [Mass/Vol] 146 mg/dL Critically high 74-106 [facility] Comment on above: Performed By: #### B MP #### [facility] [address] [address] [address] Raf Pearl Potassium [Moles/Vol] 3.9 mmol/L Normal 3.5-5.1 [facility] Comment on above: Performed By: #### B MP #### [facility] [address] [address] [address] Raf Pearl Sodium [Moles/Vol] 137 mmol/L Normal 136-145 [facility] Comment on above: Performed By: #### B MP #### [facility] [address] [address] [address] Raf Pearl Urea nitrogen [Mass/Vol] 10.0 mg/dL Normal 7.0-18.0 [facility] Comment on above: Performed By: #### B MP #### [facility] [address] [address] [address] Raf Pearl Urea nitrogen/Creatinine [Mass ratio] 8.7 mg/mg Normal [facility] Comment on above: Performed By: #### B MP #### [facility] [address] [place] [address] Dr. Raf Pearl CBC AUTO DIFFon 01-22-2022 BASO # 0.1 103/ul Normal 0.0-0.1 [facility] Comment on above: Performed By: #### B MP #### [facility] [address] [place] [address] Dr. Raf Pearl Basophils/100 WBC (Bld) 1.5 % Normal 0.2-2.0 [facility] Comment on above: Performed By: #### B MP #### [facility] [address] [place] [address] Dr. Raf Pearl EO # 0.3 103/ul Normal 0.0-0.7 [facility] Comment on above: Performed By: #### B MP #### [facility] [address] [place] [address] Dr. Raf Pearl Eosinophils/100 WBC (Bld) 5.3 % Normal 0.9-7.0 [facility] Comment on above: Performed By: #### B MP #### [facility] [address] [place] [address] Dr. Raf Pearl Erythrocyte distribution width (RBC) [Ratio] 13.1 % Normal 11.0-15.0 [facility] Comment on above: Performed By: #### B MP #### [facility] [address] [place] [address] Dr. Raf Pearl Hematocrit (Bld) [Volume fraction] 36.4 % Normal 36.0-48.0 [facility] Comment on above: Performed By: #### B MP #### [facility] [address] [place] [address] Dr. Raf Pearl Hemoglobin (Bld) [Mass/Vol] 12.4 g/dL Normal 12.0-16.0 [facility] Comment on above: Performed By: #### B MP #### [facility] [address] [place] [address] Dr. Raf Pearl IG # 0.02 10e3/ul Normal 0.00-0.03 [facility] Comment on above: Performed By: #### B MP #### [facility] [address] [place] [address] Dr. Raf Pearl IG % 0.3 % Normal 0.0-0.5 [facility] Comment on above: Performed By: #### B MP #### [facility] [address] [address] [address] Raf Pearl LYMPH # 2.0 103/ul Normal 1.2-3.8 [facility] Comment on above: Performed By: #### B MP #### [facility] [address] [place] [address] Dr. Raf Pearl Lymphocytes/100 WBC (Bld) 31.6 % Normal 20.5-60.0 [facility] Comment on above: Performed By: #### B MP #### [facility] [address] [place] [address] Dr. Raf Pearl MANUAL DIFF REQ NO Normal [facility] Comment on above: Performed By: #### B MP #### [facility] [address] [place] [address] Dr. Raf Pearl MCH (RBC) [Entitic mass] 31.4 pg Normal 26.7-34.0 [facility] Comment on above: Performed By: #### B MP #### [facility] [address] [place] [address] Dr. Raf Pearl MCHC (RBC) [Mass/Vol] 34.1 g/dL Normal 29.9-35.2 [facility] Comment on above: Performed By: #### B MP #### [facility] [address] [place] [address] Dr. Raf Pearl MCV (RBC) [Entitic vol] 92.2 fL Normal 81.0-99.0 [facility] Comment on above: Performed By: #### B MP #### [facility] [address] [place] [address] Dr. Raf Pearl MONO # 0.4 103/ul Normal 0.3-0.8 [facility] Comment on above: Performed By: #### B MP #### [facility] [address] [place] [address] Dr. Raf Pearl Monocytes/100 WBC (Bld) 6.8 % Normal 1.7-12.0 [facility] Comment on above: Performed By: #### B MP #### [facility] [address] [place] [address] Dr. Raf Pearl NEUT # 3.4 103/ul Normal 1.4-6.5 [facility] Comment on above: Performed By: #### B MP #### [facility] [address] [place] [address] Dr. Raf Pearl Neutrophils/100 WBC (Bld) 54.5 % Normal 43.0-75.0 [facility] Comment on above: Performed By: #### B MP #### [facility] [address] [place] [address] Dr. Raf Pearl Platelet mean volume (Bld) [Entitic vol] 9.7 fL Normal 9.5-13.5 [facility] Comment on above: Performed By: #### B MP #### [facility] [address] [place] [address] Dr. Raf Pearl PLT 384 103/ul Normal 150-450 [facility] Comment on above: Performed By: #### B MP #### [facility] [address] [place] [address] Dr. Raf Pearl RBC 3.95 106/ul Critically low 4.20-5.40 [facility] Comment on above: Performed By: #### B MP #### [facility] [address] [place] [address] Dr. aRf Pearl WBC 6.2 103/ul Normal 4.0-11.0 [facility] Comment on above: Performed By: #### B MP #### [facility] [address] [place] [address] Dr. Raf Pearl GLYCOHEMOGLOBIN A1Con 2021 ADA RECOMMENDATION SEE BELOW Normal [facility] Comment on above: Result Comment: ADA RECOMMENDED LIMIT 4.0 - 6.0 ADA THERAPEUTIC TARGET < 7.0 ACTION SUGGESTED > 7.0 Performed By: #### A 1C #### [facility] [address] [place] [address] Dr. Raf Pearl Glucose [Mass/Vol] 137 mg/dL Normal [facility] Comment on above: Performed By: #### A 1C #### [facility] [address] [place] [address] Dr. Raf Pearl HbA1c (Bld) [Mass fraction] 6.4 % Critically high 4.5-6.2 [facility] Comment on above: Performed By: #### A 1C #### [facility] [address] [place] [address] Dr. Raf Pearl LIPID PROFILEon 01-22-2022 CHOL-HDL RATIO NORM SEE BELOW Normal [facility] Comment on above: Result Comment: 3.3 - 4.4 LOW RISK 4.4 - 7.1 AVERAGE RISK 7.1 - 11.0 MODERATE RISK >11.0 HIGH RISK Performed By: #### B MP #### [facility] [address] [place] [address] Dr. Raf Pearl Cholesterol [Mass/Vol] 165 mg/dL Normal <=200 [facility] Comment on above: Performed By: #### B MP #### [facility] [address] [place] [address] Dr. Raf Pearl Cholesterol in HDL [Mass/Vol] 66 mg/dL Critically high 40-60 [facility] Comment on above: Performed By: #### B MP #### [facility] [address] [place] [address] Dr. Raf Pearl Cholesterol in LDL [Mass/Vol] 87.8 mg/dL Normal [facility] Comment on above: Performed By: #### B MP #### [facility] [address] [place] [address] Dr. Raf Pearl Cholesterol.total/Ch olesterol in HDL [Mass ratio] 2.5 {ratio} Normal [facility] Comment on above: Performed By: #### B MP #### [facility] [address] [address] [address] Raf Pearl HDL NORMAL > or = 60 mg/dl - LOW CARDIOVASCULAR RISK <40 mg/dl - HIGH CARDIOVASCULAR RISK Normal [facility] Comment on above: Performed By: #### B MP #### [facility] [address] [address] [address] Raf Pearl LDL CALC NORMAL SEE BELOW Normal [facility] Comment on above: Result Comment: <100 mg/dl OPTIMAL 100 - 129 mg/dl NEAR OR ABOVE OPTIMAL 130 - 159 mg/dl BORDERLINE HIGH 160 - 189 mg/dl HIGH >190 mg/dl VERY HIGH Performed By: #### B MP #### [facility] [address] [address] [address] Raf Pearl Triglyceride [Mass/Vol] 56 mg/dL Normal <=150 [facility] Comment on above: Performed By: #### B MP #### [facility] [address] [place] [address] Dr. Raf Pearl VLDL CALC 11.2 mg/dL Normal [facility] Comment on above: Performed By: #### B MP #### [facility] [address] [address] [address] Raf Pearl PROF 14(COMP METB)on 022 Albumin [Mass/Vol] 4.0 g/dL Normal 3.4-5.0 [facility] Comment on above: Performed By: #### B MP #### [facility] [address] [place] [address] Dr. Raf Pearl Albumin/Globulin [Mass ratio] 1.1 {ratio} Normal [facility] Comment on above: Performed By: #### B MP #### [facility] [address] [address] [address] Raf Pearl ALP [Catalytic activity/Vol] 81 U/L Normal 46-116 [facility] Comment on above: Performed By: #### B MP #### [facility] [address] [place] [address] Dr. Raf Pearl ALT [Catalytic activity/Vol] 26 U/L Normal 14-59 [facility] Comment on above: Performed By: #### B MP #### [facility] [address] [address] [address] Raf Pearl Anion gap [Moles/Vol] 12.1 mmol/L Normal [facility] Comment on above: Performed By: #### B MP #### [facility] [address] [address] [address] Raf Pearl AST [Catalytic activity/Vol] 16 U/L Normal 15-37 [facility] Comment on above: Performed By: #### B MP #### [facility] [address] [address] [address] Raf Pearl Bilirubin [Mass/Vol] 0.3 mg/dL Normal 0.2-1.0 [facility] Comment on above: Performed By: #### B MP #### [facility] [address] [address] [address] Raf Pearl Calcium [Mass/Vol] 9.2 mg/dL Normal 8.5-10.1 [facility] Comment on above: Performed By: #### B MP #### [facility] [address] [address] [address] Raf Pearl Chloride [Moles/Vol] 103 mmol/L Normal 98-107 [facility] Comment on above: Performed By: #### B MP #### [facility] [address] [address] [address] Raf Pearl CO2 [Moles/Vol] 26.9 mmol/L Normal 21.0-32.0 [facility] Comment on above: Performed By: #### B MP #### [facility] [address] [address] [address] Raf Pearl Creatinine [Mass/Vol] 1.17 mg/dL Critically high 0.55-1.02 [facility] Comment on above: Performed By: #### B MP #### [facility] [address] [address] [address] Raf Pearl EGFR-AF STATELESS 56 mL/min/1.73m2 Critically low >=60 [facility] Comment on above: Performed By: #### B MP #### [facility] [address] [address] [address] Raf Pearl EGFR-NON AF STATELESS 46 mL/min/1.73m2 Critically low >=60 [facility] Comment on above: Performed By: #### B MP #### [facility] [address] [address] [address] Raf Pearl Globulin (S) [Mass/Vol] 3.6 g/dL Normal [facility] Comment on above: Performed By: #### B MP #### [facility] [address] [address] [address] Raf Pearl Glucose [Mass/Vol] 141 mg/dL Critically high 74-106 [facility] Comment on above: Performed By: #### B MP #### [facility] [address] [address] [address] Raf Pearl Potassium [Moles/Vol] 4.0 mmol/L Normal 3.5-5.1 [facility] Comment on above: Performed By: #### B MP #### [facility] [address] [address] [address] Raf Pearl Protein [Mass/Vol] 7.6 g/dL Normal 6.4-8.2 [facility] Comment on above: Performed By: #### B MP #### [facility] [address] [address] [address] Raf Pearl Sodium [Moles/Vol] 138 mmol/L Normal 136-145 [facility] Comment on above: Performed By: #### B MP #### [facility] [address] [address] [address] Raf Pearl Urea nitrogen [Mass/Vol] 19.0 mg/dL Critically high 7.0-18.0 [facility] Comment on above: Performed By: #### B MP #### [facility] [address] [address] [address] Raf Pearl Urea nitrogen/Creatinine [Mass ratio] 16.2 mg/mg Normal [facility] Comment on above: Performed By: #### B MP #### [facility] [address] [address] [address] Raf Pearl VIT B12 AND FOLATEon 022 Cobalamin (Vitamin B12) [Mass/Vol] 786.0 pg/mL Normal 193.0-986.0 [facility] Comment on above: Performed By: #### B 12FOL #### [facility] [address] [address] [address] Raf Pearl FOLATE 21.80 ng/mL Normal 8.60-58.90 [facility] Comment on above: Performed By: #### B 12FOL #### [facility] [address] [address] [address] Raf Pearl CERVICAL SPINE 2 OR 3 VWSon 11-02-2018 CERVICAL SPINE 2 OR 3 VWS [facility] Department of Radiology [address] [place] [id number] Patient Name: CRISELDA MORFIN : 1955 Sex: F Age: Race: White Pt. 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 Electronically signed by:Jeffrey Miles. Transcribed by: [id number], User Resident: ANTHONY SUNG Electronically Signed by: JEFFREY MILES @ 11/04/2018 04:42 PM I personally read this/these film(s) with this resident Normal [facility] Comment on above: Order Comment: , pos top, eval hardware and alignment , Views (X-RAY, CERVICAL SPINE): AP, Lateral, Odontoid , postop, eval hardware and alignment , Views (X-RAY, CERVICAL SPINE): AP, Lateral, Odontoid , , , Ordering Provider - A ROSIE MS[employer] IMPLEMENTATION CONSULTANT , POC GLUCOSE LABon 08-25-2018 Glucose [Mass/Vol] 208 mg/dL High 70-100 [facility] Comment on above: Performed By: #### 5 [id number], [id number] #### [facility] [address] [place] [address], [facility] Glucose [Mass/Vol] 98 mg/dL Normal 70-100 [facility] Comment on above: Performed By: #### 5 [id number], [id number] #### [facility] [address] BASIC METABOLIC PANELon 05-0 Calcium [Mass/Vol] 7.7 mg/dL Low 8.6-10.3 [facility] Comment on above: Order Comment: No: D o not add to previous draw Performed By: #### 5 0103 #### [facility] [address] [address], [facility] Chloride [Moles/Vol] 109 mmol/L High 98-107 [facility] Comment on above: Order Comment: No: D o not add to previous draw Performed By: #### 5 0103 #### [facility] [address] [place] [address], [facility] CO2 [Moles/Vol] 24 mmol/L Normal 21-31 [facility] Comment on above: Order Comment: No: D o not add to previous draw Performed By: #### 5 0103 #### [facility] [address] [place] [address], [facility] Creatinine [Mass/Vol] 0.89 mg/dL Normal 0.60-1.20 [facility] Comment on above: Order Comment: No: D o not add to previous draw Performed By: #### 5 0103 #### [facility] [address] [place] [address], [facility] GFR/1.73 sq M predicted among blacks MDRD (S/P/Bld) [Vol rate/Area] mL/min/{1.73_m2} Normal >60 [facility] Comment on above: Order Comment: No: D o not add to previous draw Performed By: #### 5 0103 #### [facility] [address] [place] [address], [facility] GFR/1.73 sq M predicted among non-blacks MDRD (S/P/Bld) [Vol rate/Area] mL/min/{1.73_m2} Normal >60 [facility] Comment on above: Order Comment: No: D o not add to previous draw Performed By: #### 5 0103 #### [facility] [address] [place] [address], [facility] Glucose [Mass/Vol] 94 mg/dL Normal 70-100 [facility] Comment on above: Order Comment: No: D o not add to previous draw Performed By: #### 5 0103 #### [facility] [address] [place] [address], [facility] Potassium [Moles/Vol] 3.3 mmol/L Low 3.5-5.1 [facility] Comment on above: Order Comment: No: D o not add to previous draw Performed By: #### 5 0103 #### [facility] [address] [place] [address], [facility] Sodium [Moles/Vol] 140 mmol/L Normal 136-145 [facility] Comment on above: Order Comment: No: D o not add to previous draw Performed By: #### 5 0103 #### [facility] [address] [place] [address], [facility] Urea nitrogen [Mass/Vol] 11 mg/dL Normal 7-25 [facility] Comment on above: Order Comment: No: D o not add to previous draw Performed By: #### 5 0103 #### [facility] [address] [place] [address], [place] CBC W/DIFFon 08-24-2018 ABS BASOPHILS 0.0 10*3/uL Normal 0.0-0.2 The [facility] Comment on above: Order Comment: No: D o not add to previous draw Performed By: #### 5 0103 #### [facility] [address] [place] [address], [facility] ABS IMM GRANS 0.1 10*3/uL Normal 0.0-0.2 [facility] Comment on above: Order Comment: No: D o not add to previous draw Performed By: #### 5 0103 #### [facility] [address] [place] [address], [facility] ABS NEUTROPHILS 12.5 10*3/uL High 1.6-7.6 The [facility] Comment on above: Order Comment: No: D o not add to previous draw Performed By: #### 5 0103 #### [facility] [address] [place] [address], [facility] Basophils/100 WBC (Bld) 0.3 % Normal 0.0-1.0 [facility] Comment on above: Order Comment: No: D o not add to previous draw Performed By: #### 5 0103 #### [facility] [address] [place] [address], [facility] Eosinophils (Bld) [#/Vol] 0.0 10*3/uL Normal 0.0-0.5 [facility] [facility] Comment on above: Order Comment: No: D o not add to previous draw Performed By: #### 5 0103 #### [facility] [address] [place] [id number], [facility] Eosinophils/100 WBC (Bld) 0.0 % Normal 0.0-6.0 The [facility] Comment on above: Order Comment: No: D o not add to previous draw Performed By: #### 5 0103 #### [facility] [address] [place] [address], [facility] Erythrocyte distribution width (RBC) [Ratio] 13.0 % Normal 11.5-15.0 The [facility] Comment on above: Order Comment: No: D o not add to previous draw Performed By: #### 5 0103 #### [facility] [address] [place] [address], [facility] Hematocrit (Bld) [Volume fraction] 31.7 % Low 36.0-45.0 [facility] Comment on above: Order Comment: No: D o not add to previous draw Performed By: #### 5 0103 #### [facility] [address] [place] [address], [facility] Hemoglobin (Bld) [Mass/Vol] 10.3 g/dL Low 12.0-15.0 [facility] Comment on above: Order Comment: No: D o not add to previous draw Performed By: #### 5 0103 #### [facility] [address] [place] [address], [facility] IMMATURE GRANS 0.5 % Normal 0.0-1.0 The [facility] Comment on above: Order Comment: No: D o not add to previous draw Performed By: #### 5 0103 #### [facility] [address] [place] [address], [facility] Lymphocytes (Bld) [#/Vol] 1.9 10*3/uL Normal 1.2-4.0 The [facility] Comment on above: Order Comment: No: D o not add to previous draw Performed By: #### 5 0103 #### [facility] [address] [place] [address], [facility] Lymphocytes/100 WBC (Bld) 11.9 % Low 20.0-45.0 [facility] Comment on above: Order Comment: No: D o not add to previous draw Performed By: #### 5 0103 #### [facility] [address] [place] [address], [facility] MCH (RBC) [Entitic mass] 31.7 pg Normal 27.0-33.0 [facility] Comment on above: Order Comment: No: D o not add to previous draw Performed By: #### 5 0103 #### [facility] [address] [place] [address], [facility] MCHC (RBC) [Mass/Vol] 32.5 g/dL Normal 32.0-35.0 [facility] Comment on above: Order Comment: No: D o not add to previous draw Performed By: #### 5 0103 #### [facility] [address] [place] [address], [facility] MCV (RBC) [Entitic vol] 97.5 fL Normal 82.0-98.0 [facility] Comment on above: Order Comment: No: D o not add to previous draw Performed By: #### 5 0103 #### [facility] [address] [place] [address], [facility] Monocytes (Bld) [#/Vol] 1.2 10*3/uL High 0.1-1.0 [facility] Comment on above: Order Comment: No: D o not add to previous draw Performed By: #### 5 0103 #### [facility] [address] [facility] [place] [address], [facility] MONOS 7.7 % Normal 5.0-12.0 [facility] Comment on above: Order Comment: No: D o not add to previous draw Performed By: #### 5 0103 #### [facility] [address] [place] [address], [facility] Neutrophils/100 WBC (Bld) 79.6 % High 40.0-72.0 [facility] Comment on above: Order Comment: No: D o not add to previous draw Performed By: #### 5 0103 #### [facility] [address] [place] [id number], [facility] Nucleated RBC/100 WBC (Bld) [Ratio] 0 % Normal 0-0 [facility] Comment on above: Order Comment: No: D o not add to previous draw Performed By: #### 5 0103 #### [facility] [address] [place] [id number], [facility] PLAT CNT 263 10*3/uL Normal 150-400 The [facility] Comment on above: Order Comment: No: D o not add to previous draw Performed By: #### 5 0103 #### [facility] [address] [place] [address], [facility] RBC (Bld) [#/Vol] 3.25 10*6/uL Low 3.80-5.00 [facility] Comment on above: Order Comment: No: D o not add to previous draw Performed By: #### 5 0103 #### [facility] [address] [place] [address], [facility] WBC (Bld) [#/Vol] 15.70 10*3/uL High 4.00-10.60 [facility] Comment on above: Order Comment: No: D o not add to previous draw Performed By: #### 5 0103 #### [facility] [address] [place] [id number], [facility] LIPID PROFILEon 08-24-2018 Cholesterol [Mass/Vol] 128 mg/dL Normal 120-200 [facility] Comment on above: Order Comment: No: D o not add to previous draw Result Comment: CHOL ESTEROL REFERENCE RANGE: 20 YEARS AND OLDER CARDIOVASCULAR RISK Less than 200 mg/dl Low Risk 200 to 239 mg/dl Borderline Risk 240 mg/dl and greater High Risk Performed By: #### 5 0103 #### [facility] [address] [place] [address], [facility] Cholesterol in HDL [Mass/Vol] 49 mg/dL Normal 23-92 [facility] Comment on above: Order Comment: No: D o not add to previous draw Result Comment: Slig ht variation in normal range could be due to gender and/or age. HDL CHOLESTEROL REFERENCE RANGE: 20 years and older Cardiovascular Risk > or =60 mg/dL Desirable 40 TO 59 mg/dL Low Risk <40 mg/dL High Risk Performed By: #### 5 0103 #### [facility] [address] [place] [address], [facility] Cholesterol in LDL [Mass/Vol] 65 mg/dL Normal 0-130 [facility] Comment on above: Order Comment: No: D o not add to previous draw Result Comment: LDL IS A CALCULATION LDL IS ONLY VALID IF THE TRIG IS LESS THAN 400. Performed By: #### 5 0103 #### [facility] [address] [place] [address], [facility] Cholesterol.total/Ch olesterol in HDL [Mass ratio] 2.6 {ratio} Normal .0-4.5 [facility] Comment on above: Order Comment: No: D o not add to previous draw Performed By: #### 5 0103 #### [facility] [address] [place] [address], [facility] NON-HDL CHOLESTEROL 79 mg/dL Normal The [facility] Comment on above: Order Comment: No: D o not add to previous draw Performed By: #### 5 0103 #### [facility] [address] [place] [address], [facility] Triglyceride [Mass/Vol] 69 mg/dL Normal 40-149 [facility] Comment on above: Order Comment: No: D o not add to previous draw Result Comment: TRIG LYCERIDE REFERENCE RANGE: 20 YEARS AND OLDER CARDIOVASCULAR RISK LESS THAN 150 mg/dl LOW RISK 150 TO 199 mg/dl BORDERLINE RISK 200 mg/dl AND GREATER HIGH RISK Performed By: #### 5 0103 #### [facility] [address] [place] [address], [facility] VLDL CHOL 14 mg/dL Normal 0-40 [facility] Comment on above: Order Comment: No: D o not add to previous draw Performed By: #### 5 0103 #### [facility] [address] [place] [address], [place] POC GLUCOSE LABon 08-24-2018 Glucose [Mass/Vol] 162 mg/dL High 70-100 The [facility] Comment on above: Performed By: #### 5 6101, [id number] #### [facility] [address] [place] [address], [place] Glucose [Mass/Vol] 146 mg/dL High 70-100 The [facility] Comment on above: Performed By: #### 5 610, [id number] #### [facility] [address] [place] [address], [place] Glucose [Mass/Vol] 213 mg/dL High 70-100 The [facility] Comment on above: Performed By: #### 5 6101, [id number] #### [facility] [address] [place] [address], [place] Glucose [Mass/Vol] 81 mg/dL Normal 70-100 The [facility] Comment on above: Performed By: #### 5 6101, [id number] #### [facility] [address] [place] [address], [place] BASIC METABOLIC PANELon 05- Calcium [Mass/Vol] 8.4 mg/dL Low 8.6-10.3 The [facility] Comment on above: Order Comment: Yes: Add to Previous draw if able Performed By: #### 5 0103 #### [facility] [address] [place] [address], [place] Chloride [Moles/Vol] 103 mmol/L Normal 98-107 [facility] Comment on above: Order Comment: Yes: Add to Previous draw if able Performed By: #### 5 010 #### [facility] [address] [place] [address], [place] CO2 [Moles/Vol] 26 mmol/L Normal 21-31 [facility] Comment on above: Order Comment: Yes: Add to Previous draw if able Performed By: #### 5 0103 #### [facility] [address] [place] [address], [place] Creatinine [Mass/Vol] 1.03 mg/dL Normal 0.60-1.20 [facility] Comment on above: Order Comment: Yes: Add to Previous draw if able Performed By: #### 5 0103 #### [facility] [address] [place] [address], [place] GFR/1.73 sq M predicted among blacks MDRD (S/P/Bld) [Vol rate/Area] mL/min/{1.73_m2} Normal >60 [facility] Comment on above: Order Comment: Yes: Add to Previous draw if able Performed By: #### 5 0103 #### [facility] [address] [place] [address], [place] GFR/1.73 sq M predicted among non-blacks MDRD (S/P/Bld) [Vol rate/Area] 54 ml/min/1.73sq m Abnormal >60 The [facility] Comment on above: Order Comment: Yes: Add to Previous draw if able Performed By: #### 5 0103 #### [facility] [address] [place] [address], [place] Glucose [Mass/Vol] 209 mg/dL High 70-100 The [facility] Comment on above: Order Comment: Yes: Add to Previous draw if able Performed By: #### 5 0103 #### [facility] [address] [place] [address], [place] Potassium [Moles/Vol] 3.9 mmol/L Normal 3.5-5.1 [facility] Comment on above: Order Comment: Yes: Add to Previous draw if able Performed By: #### 5 0103 #### [facility] [address] [place] [address], [place] Sodium [Moles/Vol] 135 mmol/L Low 136-145 [facility] Comment on above: Order Comment: Yes: Add to Previous draw if able Performed By: #### 5 3 #### [facility] [address] [place] [address], [facility] Urea nitrogen [Mass/Vol] 16 mg/dL Normal 7-25 [facility] Comment on above: Order Comment: Yes: Add to Previous draw if able Performed By: #### 3 #### [facility] [address] CBC COMPLETE BLOOD COUNTon 0 08-23-2018 Erythrocyte distribution width (RBC) [Ratio] 12.8 % Normal 11.5-15.0 [facility] Comment on above: Order Comment: Yes: Add to Previous draw if able Performed By: #### 5 102 #### [facility] [address] [place] [address], [facility] Hematocrit (Bld) [Volume fraction] 35.0 % Low 36.0-45.0 [facility] Comment on above: Order Comment: Yes: Add to Previous draw if able Performed By: #### 5 3 #### [facility] [address] [place] [address], [facility] Hemoglobin (Bld) [Mass/Vol] 11.2 g/dL Low 12.0-15.0 [facility] Comment on above: Order Comment: Yes: Add to Previous draw if able Performed By: #### 5 3 #### [facility] [address] [place] [address], [facility] MCH (RBC) [Entitic mass] 31.5 pg Normal 27.0-33.0 [facility] Comment on above: Order Comment: Yes: Add to Previous draw if able Performed By: #### 5 3 #### [facility] [address] [place] [address], [facility] MCHC (RBC) [Mass/Vol] 32.0 g/dL Normal 32.0-35.0 [facility] Comment on above: Order Comment: Yes: Add to Previous draw if able Performed By: #### 5 0103 #### [facility] [address] [place] [address], [facility] MCV (RBC) [Entitic vol] 98.3 fL High 82.0-98.0 [facility] Comment on above: Order Comment: Yes: Add to Previous draw if able Performed By: #### 5 0103 #### [facility] [address] [place] [address], [facility] Nucleated RBC/100 WBC (Bld) [Ratio] 0 % Normal 0-0 [facility] Comment on above: Order Comment: Yes: Add to Previous draw if able Performed By: #### 5 0103 #### [facility] [address] [place] [address], [facility] PLAT CNT 276 10*3/uL Normal 150-400 The [facility] Comment on above: Order Comment: Yes: Add to Previous draw if able Performed By: #### 5 0103 #### [facility] [address] [place] [address], [facility] RBC (Bld) [#/Vol] 3.56 10*6/uL Low 3.80-5.00 The [facility] Comment on above: Order Comment: Yes: Add to Previous draw if able Performed By: #### 5 0103 #### [facility] [address] [place] [address], [facility] WBC (Bld) [#/Vol] 14.61 10*3/uL High 4.00-10.60 The [facility] Comment on above: Order Comment: Yes: Add to Previous draw if able Performed By: #### 5 0103 #### [facility] [address] [place] [address], [facility] CERVICAL SPINE 2 OR 3 VWSon 08-23-2018 CERVICAL SPINE 2 OR 3 S [facility] Department of Radiology [address] [place] [address] [id number] Patient Name: CRISELDA MORFIN : 1955 Sex: [...] C6. Electronically signed by:Xiomara Nath. Transcribed by: [email or web address], User Resident: Electronically Signed by: XIOMARA NATH @ 08/23/2018 04:07 PM Normal [facility] Comment on above: Order Comment: C4-C5 , C5-C6 ANTERIOR CERVICAL DISCECTOMY WITH FUSION Operative Reporton 9 Operative Report MR#: [id number] S [facility] Pt. Name: Criselda Morfin Room #: 0C Discharge Date: Birthdate: 1955 OPERATIVE REPORT DATE OF SURGERY: 08/23/2018 SURGEON: Demetris Askew M.D. 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 POSTOPERATIVE DIAGNOSIS: Herniated cervical disk and spinal stenosis from C4 through C6. DRUM SANDER SETTER: ELIDIA Castle. ANESTHESIA: Endotracheal, Dr. Falcon. PROCEDURE: [...] size 8 at C5-6. The plate was Gilmer, size 35 mm. The screws were 6, [...] Askew M.D. Date Trans: 08/23/2018 01:26 P/kari [id number] Normal The [facility] POC GLUCOSE LABon 08-23-2018 Glucose [Mass/Vol] 157 mg/dL High 70-100 The [facility] Comment on above: Performed By: #### 5 0103 #### [facility] [address] Glucose [Mass/Vol] 190 mg/dL High 70-100 The [facility] Comment on above: Performed By: #### 5 0103 #### [facility] [address] Glucose [Mass/Vol] 182 mg/dL High 70-100 The [facility] Comment on above: Performed By: #### 5 0103 #### [facility] [address] [place] [address], [facility] Glucose [Mass/Vol] 94 mg/dL Normal 70-100 The [facility] Comment on above: Performed By: #### 5 0103 #### [facility] [address] *MRSA/MSSA DNA NASALon 08-08 *MRSA/MSSA DNA NASAL Clinical Report: (D ) Specimen: NASAL SWAB Collected: 08/08/2018 15:04 Status: Final Last Updated: 08/08/2018 20:45 MSSA DNA (Final) Negative MRSA DNA (Final) Negative Normal [facility] Comment on above: Performed By: #### 3 1595 #### [facility] [address] *URINE CULTUREon 08-08-2018 Bacteria identified Cx [...] CEFAZOLIN (CZ) 2 Susceptible 4 Susceptible CEFTRIAXONE (EXPEDITION SUPERVISOR) <=0.5 Susceptible <=0.5 Susceptible CIPROFLOXACIN (CIP) <=0.5 Susceptible <=0.5 Susceptible GENTAMICIN (GM) 1 Susceptible 4 Susceptible MEROPENEM (MEM) <=0.125 Susceptible NITROFURANTOIN (FT) 32 Susceptible >64 Resistant PIP/TAZO (TZP) 4/4 Susceptible PIP/TAZO (TZP) <=2/4 Susceptible TOBRAMYCIN (TOB) 1 Susceptible 2 Susceptible TRIMETH/SULFA (SXT) <=0.5/9.5 Susceptible <=0.5/9.5 Susceptible Antibiotic Summary Grid: AMS AM AZM CZ EXPEDITION SUPERVISOR CIP GM MEM FT TZP TOB Citrobacter S R S S S S S S S S S amalonaticus complex Proteus mirabilis S S S S S S S R S S SXT Citrobacter S amalonaticus complex Proteus mirabilis S Normal [facility] Comment on above: Performed By: #### 3 0339 #### [facility] [address] APTTon 08-08-2018 aPTT Coag (Bld) [Time] 28.0 s Normal 25.0-35.0 [facility] Comment on above: [...] THIS PURPOSE. Performed By: #### 5 6101, [id number] #### [facility] [address] BASIC METABOLIC PANELon - Calcium [Mass/Vol] 9.6 mg/dL Normal 8.6-10.3 [facility] Comment on above: Performed By: #### 0 0071 #### [facility] [address] [place] [address], [place] Chloride [Moles/Vol] 103 mmol/L Normal 98-107 [facility] Comment on above: Performed By: #### 0 0071 #### [facility] [address] [place] [address], [place] CO2 [Moles/Vol] 30 mmol/L Normal 21-31 [facility] Comment on above: Performed By: #### 0 0071 #### [facility] [address] [place] [address], [place] Creatinine [Mass/Vol] 1.07 mg/dL Normal 0.60-1.20 [facility] Comment on above: Performed By: #### 0 0071 #### [facility] [address] [place] [address], [place] GFR/1.73 sq M predicted among blacks MDRD (S/P/Bld) [Vol rate/Area] mL/min/{1.73_m2} Normal >60 [facility] Comment on above: Performed By: #### 0 0071 #### [facility] [address] [place] [address], [place] GFR/1.73 sq M predicted among non-blacks MDRD (S/P/Bld) [Vol rate/Area] 52 ml/min/1.73sq m Abnormal >60 [facility] Comment on above: Performed By: #### 0 0071 #### [facility] [address] [place] [address], [place] Glucose [Mass/Vol] 93 mg/dL Normal 70-100 [facility] Comment on above: Performed By: #### 0 0071 #### [facility] [address] [place] [address], [place] Potassium [Moles/Vol] 4.2 mmol/L Normal 3.5-5.1 [facility] Comment on above: Performed By: #### 0 0071 #### [facility] [address] Sodium [Moles/Vol] 139 mmol/L Normal 136-145 The [facility] Comment on above: Performed By: #### 0 1 #### [facility] [address] Urea nitrogen [Mass/Vol] 18 mg/dL Normal 7-25 [facility] Comment on above: Performed By: #### 0 1 #### [facility] [address] CBC W/DIFFon 08-08-2018 ABS BASOPHILS 0.1 10*3/uL Normal 0.0-0.2 The [facility] Comment on above: Performed By: #### 5 102 #### [facility] [address] ABS IMM GRANS 0.0 10*3/uL Normal 0.0-0.2 [facility] Comment on above: Performed By: #### 5 102 #### [facility] [address] ABS NEUTROPHILS 5.0 10*3/uL Normal 1.6-7.6 The [facility] Comment on above: Performed By: #### 5 3 #### [facility] [address] Basophils/100 WBC (Bld) 0.9 % Normal 0.0-1.0 [facility] Comment on above: Performed By: #### 5 102 #### [facility] [address] Eosinophils (Bld) [#/Vol] 0.2 10*3/uL Normal 0.0-0.5 [facility] Comment on above: Performed By: #### 5 0103 #### [facility] [address] [place] [address], [facility] Eosinophils/100 WBC (Bld) 1.8 % Normal 0.0-6.0 [facility] Comment on above: Performed By: #### 102 #### [facility] [address] [place] [address], [facility] Erythrocyte distribution width (RBC) [Ratio] 13.1 % Normal 11.5-15.0 [facility] Comment on above: Performed By: #### 102 #### [facility] [address] [place] [address], [facility] Hematocrit (Bld) [Volume fraction] 37.2 % Normal 36.0-45.0 [facility] Comment on above: Performed By: #### 102 #### [facility] [address] [place] [address], [facility] Hemoglobin (Bld) [Mass/Vol] 12.3 g/dL Normal 12.0-15.0 [facility] Comment on above: Performed By: #### 102 #### [facility] [address] [place] [address], [facility] IMMATURE GRANS 0.5 % Normal 0.0-1.0 The [facility] Comment on above: Performed By: #### 3 #### [facility] [address] [place] [address], [facility] Lymphocytes (Bld) [#/Vol] 2.2 10*3/uL Normal 1.2-4.0 [facility] Comment on above: Performed By: #### 3 #### [facility] [address] [place] [address], [facility] Lymphocytes/100 WBC (Bld) 26.5 % Normal 20.0-45.0 [facility] Comment on above: Performed By: #### 102 #### [facility] [address] [facility] [address] MCH (RBC) [Entitic mass] 31.4 pg Normal 27.0-33.0 [facility] Comment on above: Performed By: #### 5 0103 #### [facility] [address] [facility] MCHC (RBC) [Mass/Vol] 33.1 g/dL Normal 32.0-35.0 [facility] Comment on above: Performed By: #### 5 0103 #### [facility] [address] [place] [address], [facility] MCV (RBC) [Entitic vol] 94.9 fL Normal 82.0-98.0 [facility] Comment on above: Performed By: #### 5 3 #### [facility] [address] Monocytes (Bld) [#/Vol] 0.7 10*3/uL Normal 0.1-1.0 [facility] Comment on above: Performed By: #### 5 0103 #### [facility] [address] MONOS 8.3 % Normal 5.0-12.0 [facility] Comment on above: Performed By: #### 5 0103 #### [facility] [address] [facility] [address] Neutrophils/100 WBC (Bld) 62.0 % Normal 40.0-72.0 [facility] Comment on above: Performed By: #### 5 0103 #### [facility] [address] [place] [address], [facility] Nucleated RBC/100 WBC (Bld) [Ratio] 0 % Normal 0-0 [facility] Comment on above: Performed By: #### 5 0103 #### [facility]. [address] PLAT CNT 325 10*3/uL Normal 150-400 The [facility] Comment on above: Performed By: #### 5 [id number] #### [facility] [address] [place] [address], [facility] RBC (Bld) [#/Vol] 3.92 10*6/uL Normal 3.80-5.00 The [facility] Comment on above: Performed By: #### 5 0103 #### [facility] [address] [place] [address], [facility] WBC (Bld) [#/Vol] 8.12 10*3/uL Normal 4.00-10.60 The [facility] Comment on above: Performed By: #### 5 0103 #### [facility] [address] CERVICAL SPINE 4 OR 5 VIEWSo 08-08-2018 CERVICAL SPINE 4 OR 5 VIEWS [facility] Department of Radiology [address] [place] [address] [id number] Patient Name: CRISELDA MORFIN : 1955 Sex: [...] , , , Ordering Charlene - DEMETRIS ASKWE MD , PROTOCOLS: AP,Odontoid, Lateral, Flexion and [...] level Electronically signed by:Xiomara Nath. Transcribed by: [email or web address], User Resident: Electronically Signed by: XIOMARA NATH @ 08/08/2018 03:24 PM Normal [facility] Comment on above: Order Comment: , POS T OP XRAY AP/LAT ONLY , POST OP XRAY AP/LAT ONLY , , , Ordering Charlene ASKEW MD , HEMOGLOBIN A1Con 08-08-2018 HbA1c (Bld) [Mass fraction] 154 mg/dL High 70-126 [facility] Comment on above: Performed By: #### 4 [id number] #### [facility] [address] . [address] HbA1c (Bld) [Mass fraction] 7.0 % High 4.0-6.0 The [facility] Comment on above: Performed By: #### 4 6447 #### [facility] [address] . [address] PROTHROMBIN TIMEon 9 INR Coag (PPP) [Relative time] 0.93 {INR} Normal 0.91-1.16 The [facility] Comment on above: Result Comment: ACCC [...] CHEST 1995;108:[id number]. Performed By: #### 5 [id number], [id number] #### [facility] [address] [place] [address], [facility] PT Coag (PPP) [Time] 12.5 s Normal 12.3-14.8 The [facility] Comment on above: Result Comment: ALL RESULTS MUST BE INTERPRETED WITH RESPECT TO BLOOD DRAWING ARTIFACT OR DILUTION ERROR OF ANTICOAGULANT AT THE TIME OF SAMPLING. Performed By: #### 5 [id number], [id number] #### [facility] [address] TYPE AND CROSSMATCHon 2018 ABO INTERPRETATION O Normal The [facility] Comment on above: Performed By: #### 6 [id number] #### [facility] [address] [place] [address], [place] RH INTERPRETATION Positive Normal The [facility] Comment on above: Performed By: #### 6 [id number] #### [facility] [address] [place] [address], [place] URINALYSIS REFLEXon 08-09-19 19 Appearance (U) CLEAR Normal CLEAR The [facility] Comment on above: Performed By: #### 3 0965 #### [facility] [address] [place] [address], [place] Bilirubin [Mass/Vol] Negative Normal NEGATIVE The [facility] Comment on above: Performed By: #### 3 0965 #### [facility] [address] [place] [address], [place] BLOOD Negative Normal NEGATIVE The [facility] Comment on above: Performed By: #### 3 0965 #### [facility] [address] [place] [address], [place] Color (U) STRAW Abnormal YELLOW The [facility] Comment on above: Performed By: #### 3 0965 #### [facility] [address] [place] [address], [place] EPIS NONE SEEN Normal FEW,OCC,NONE SEEN The [facility] Comment on above: Performed By: #### 3 0965 #### [facility] [address] [place] [address], [place] Glucose [Mass/Vol] Negative Normal NEGATIVE The [facility] Comment on above: Performed By: #### 3 0965 #### [facility] [address] [place] [address], [place] KETONE Negative Normal NEGATIVE The [facility] Comment on above: Performed By: #### 3 0965 #### [facility] [address] [place] [address], [place] LEUK ALVARADO TRACE Abnormal NEGATIVE [facility] Comment on above: Performed By: #### 3 0965 #### [facility] [address] [place] [address], [place] Nitrite Ql (U) Negative Normal NEGATIVE The [facility] Comment on above: Performed By: #### 3 0965 #### [facility] [address] [place] [address], [place] pH (Bld) 6.0 Normal 5.0-8.0 The [facility] Comment on above: Performed By: #### 3 0965 #### [facility] [address] [place] [address], [place] Protein (U) [Mass/Vol] Negative Normal NEGATIVE The [facility] Comment on above: Performed By: #### 3 0965 #### [facility] [address] [place] [address], [place] RBC (U) [#/Vol] 0-2 Abnormal NONE SEEN The [facility] Comment on above: Performed By: #### 3 0965 #### [facility] [address] [place] [address], [place] SPEC GRAV 1.011 Low 1.015-1.020 The [facility] Comment on above: Performed By: #### 3 0965 #### [facility] [address] [facility] [address], [place] WBC UA 0-2 Abnormal NONE SEEN [facility] Comment on above: Performed By: #### 3 0965 #### [facility] [address] [place] [address], [place] Vital Signs Date Time Vital Sign Value Performing Clinician Facility 09-24-2022 08:10-0400 Body height 149.86 cm Rin Nichloson Other [facility] Other 09-24-2022 08:10-0400 Body mass index (BMI) [Ratio] 29.89 kg/m2 Rin Nicholson Other [facility] Other 09-24-2022 08:10-0400 Body temperature 98.6 [degF] Rin Nicholson Other [facility] Other 09-24-2022 08:10-0400 Body weight 67.13 kg Rin Nicholson Other [facility] Other 09-24-2022 08:10-0400 Diastolic blood pressure 84 mm[Hg] Rin Nicholson Other [facility] Other 09-24-2022 08:10-0400 Respiratory rate 18 /min Rin Nicholson Other [facility] Other 09-24-2022 08:10-0400 SaO2% (BldA) [Mass fraction] 97 % Rin Nicholson Other [facility] Other 09-24-2022 08:10-0400 Systolic blood pressure 126 mm[Hg] Rin Nicholson Other [facility] Other 08-09-2022 18:20-0400 Body height 149.86 cm Rin Nicholson Other [facility] Other 08-09-2022 18:20-0400 Body mass index (BMI) [Ratio] 29.89 kg/m2 Rin Nicholson Other [facility] Other 08-09-2022 18:20-0400 Body temperature 98.2 [degF] Rin Nicholson Other [facility] Other 08-09-2022 18:20-0400 Body weight 67.13 kg Rin Nicholson Other [facility] Other 08-09-2022 18:20-0400 Diastolic blood pressure 78 mm[Hg] Rin Nicholson Other [facility] Other 08-09-2022 18:20-0400 Respiratory rate 16 /min Rin Nicholson Other [facility] Other 08-09-2022 18:20-0400 SaO2% (BldA) [Mass fraction] 98 % Rin Nicholson Other [facility] Other 08-09-2022 18:20-0400 Systolic blood pressure 136 mm[Hg] Rin Nicholson Other [facility] Other 02-08-2022 18:00-0400 Body height 149.86 cm Rin Nicholson Other [facility] Other 02-08-2022 18:00-0400 Body mass index (BMI) [Ratio] 28.98 kg/m2 Rin Nicholson Other [facility] Other 02-08-2022 18:00-0400 Body temperature 98.1 [degF] Rin Nicholson Other [facility] Other 02-08-2022 18:00-0400 Body weight 65.09 kg Rin Nicholson Other [facility] Other 02-08-2022 18:00-0400 Diastolic blood pressure 80 mm[Hg] Rin Nicholson Other [facility] Other 02-08-2022 18:00-0400 Respiratory rate 16 /min Rin Nicholson Other [facility] Other 02-08-2022 18:00-0400 SaO2% (BldA) [Mass fraction] 99 % Rin Nicholson Other [facility] Other 02-08-2022 18:00-0400 Systolic blood pressure 136 mm[Hg] Rin Nicholson Other [facility] Other Encounters Encounter Date Encounter Type Care Provider Facility Start: 05-16-2023 End: 05-16-2023 ambulatory Rin Nicholson Other [facility] Other Start: 05-16-2023 Telephone encounter Rin Nicholson [facility] [place] Start: 05-03-2023 End: 05-03-2023 ambulatory Rin Nicholson Facility:[facility] Start: 05-03-2023 Encounter by compute r link Rin Nicholson [facility] [place] Start: 05-03-2023 End: 05-03-2023 ambulatory DO iRn Nicholson Work Phone: [facility] Work Phone: Start: 05-03-2023 End: 05-03-2023 Patient encounter procedure DO Rin Nicholson Work Phone: [facility] Work Phone: Start: 04-12-2023 End: 04-12-2023 ambulatory Rin Nicholson Other [facility] Other Start: 04-12-2023 Telephone encounter Rin Nicholson [facility] [place] Start: 04-04-2023 End: 04-04-2023 ambulatory Rin Nicholson Other [facility] Other Start: 04-04-2023 Telephone encounter Rin Nicholson [facility] [place] Start: 03-21-2023 End: 03-21-2023 ambulatory Rin Nicholson Other [facility] Other Start: 03-21-2023 Telephone encounter Rin Nicholson [facility] [place] Start: 02-23-2023 End: 02-23-2023 ambulatory Rin Nicholson Other [facility] [employer] Other Start: 02-23-2023 Telephone encounter Rin Nicholson [facility] [place] Start: 09-24-2022 End: 09-24-2022 ambulatory Rin Nicholson Other [facility] Other Start: 09-24-2022 Office outpatient vi sit 15 minutes Rin Nicholson [facility] [place] Start: 08-30-2022 End: 08-31-[address] RIN NICHOLSON Facility:[facility] Start: 08-17-2022 End: 08-17-2022 ambulatory Rin Nicholson Other [facility] Other Start: 08-17-2022 Telephone encounter Rin Nicholson [facility] [place] Start: 08-16-2022 End: 08-17-[address] RIN NICHOLSON Facility:[facility] Start: 08-09-2022 End: 08-09-2022 ambulatory Rin Nicholson Other [facility] Other Start: 08-09-2022 Office outpatient vi sit 25 minutes iRn Nicholson [facility] [place] Start: 08-06-2022 End: 08-06-2022 ambulatory Rin Nicholson Other [facility] Other Start: 08-06-2022 Telephone encounter Rin Nicholson [facility] [place] Start: 07-31-2022 End: 08-01-[address] RIN NICHOLSON Facility:[facility] Start: 06-04-2022 End: 06-04-2022 ambulatory Rin Nicholson Other [facility] Other Start: 06-04-2022 Telephone encounter Rin Nicholson [facility] [place] Start: 05-24-2022 End: 05-24-2022 ambulatory Rin Nicholson Other [facility] Other Start: 05-24-2022 Telephone encounter Rin Nicholson [facility] [place] Start: 05-14-2022 End: 05-14-2022 ambulatory Rin Nicholson Other [facility] Other Start: 05-14-2022 Telephone encounter Rin Nicholson [facility] [place] Start: 04-30-2022 End: 04-30-[address] BETTINA MULLIGAN . Facility:[facility] Start: 04-22-2022 End: 04-22-2022 ambulatory Rin Nicholson Other [facility] Other Start: 04-22-2022 Telephone encounter Rin Nicholson [facility] [place] Start: 03-29-2022 End: 03-29-2022 ambulatory Rin Nicholson Other [facility] Other Start: 03-29-2022 Telephone encounter Rin Nicholson [facility] [place] Start: 03-27-2022 End: 03-28-[address] RIN NICHOLSON Facility:[facility] Start: 02-08-2022 End: 02-08-2022 ambulatory Rin Nicholson Other [facility] Other Start: 02-08-2022 Office outpatient vi sit 25 minutes Rin Nicholson [facility] [place] Start: 01-22-2022 End: 01-23-[address] RIN NICHOLSON Facility:[facility] Start: 08-23-2018 End: 08-25-2018 Evaluation and management of inpatient PROVIDER UNKNOWN Facility:[facility] Start: 05-11-2018 Patient encounter procedure [...] above: Performed By: #### 6 [id number] #### [facility] [address] Immunizations Immunization Date Immunization Notes Care Provider Fa huntre 04-26-2023 Prevnar 20 Rin Nicholson Other [facility] Other 04-08-2023 COVID-19 Moderna (SPIKEVAX) Rin Nicholson Other [facility] Other 04-08-2023 zoster vaccine recombinant Rin Nicholson Other [facility] Other 03-22-2023 Flu Shot - Documentation Purposes Only Rin Nicholson Other [facility] Other 02-08-2022 Shingrix 50 MCG/0.5M L; 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: [Shingrix 50 MCG/0.5ML] Rin Nicholson Other [facility] Other 01-15-2022 influenza, seasonal, injectable Rin Nicholson Other [facility] Other 01-15-2022 COVID-19 Pfizer (bivalent) Rin Nicholson Other [facility] Other 07-31-2021 COVID-19 Vaccine Moderna - Documentation Purposes Only Rin Nicholson Other [facility] Other 02-20-2021 COVID-19 Vaccine Moderna - Documentation Purposes Only Rin Nicholson Other [facility] Other 07-26-2020 COVID-19 Brittany Romero n Other [facility] Other 06-28-2020 COVID-19 Brittany Romero n Other [facility] Other 02-18-2020 influenza, seasonal, injectable Rin Kesslerbaljit Other [facility] Other 02-19-2017 influenza, seasonal, injectable Rin Lyn Other [facility] Other 03-08-2016 influenza, seasonal, injectable Rin Kesslerbaljit Other [facility] Other 05-07-2013 influenza virus vaccine, split virus (incl. purified surface antigen) Rin Nicholson Other [facility] Other 03-24-2012 influenza, seasonal, injectable, preservative free Rin Nicholson Other [facility] Other Payers Date Payer Category Payer Self-pay [id number] 2023 Unknown [id number] 2022 Medicare [id number] 2.1 [id number] 1959 Unknown [id number] 1955 Unknown [id number] 2.16. [id number] 1955 Unknown [id number] 2.16. [id number] 1955 Unknown [id number] 2.16. [id number] 1955 Unknown [id number] 2.16. [id number] 1955 Unknown [id number] 2.16.8 [id number] 1955 Unknown [id number] 2.16.84 [id number] 1955 Unknown [id number] 2.16.84 [id number] 1955 Unknown [id number] 2.16.84 [id number] 1955 Unknown [id number] 2.16.84 [id number] 1955 Unknown [id number] 2.16.84 [id number] 1955 Unknown [id number] 2.16.84 [id number] Unknown [id number] Unknown [id number] 2.16.8 [id number] Social History Date Type Detail Facility Unknown if ever smoked [facility] Other Sex Assigned At Sex Assigned At Bir th [facility] Other Start: 1955 Sex Assigned At Female F [facility] Start: 06-02-2020 Tobacco smoking status NHIS Never smoked tobacco (finding) [facility] Medical Equipment Procedure Code Equipment Code Equipment Origin al Text Equipment Identifier Dates One Touch Lancet s lancets Start: 12-24-2011 Clinical Notes 02-11-2019 to 05-03-2023 Note Date & Type Note Facility 05-03-2023 Evaluation note Encounter Date Diagnosis Assessment Notes Apr, GERD (gastroesop hageal reflux disease) (ICD-10 - K21.9) [facility] Other 2023 Evaluation note* Encounter Date Diagnosis Assessment Notes Treatment Notes Treatment Clinical Notes Mar, Abnormal blood chemistry (ICD-10 - R79.9) Mar, Hypercalcemia (ICD-1 0 - E83.52) Mar, Stage 3a chronic kidney disease (ICD-10 - N18.31) [facility] Other 06-09-2023 Evaluation note* Encounter Date Diagnosis [...] see where her kidney studies are at. [facility] Other 04-24-2023 Evaluation note* Encounter Date Diagnosis [...] results. She may have to see the automotive vehicle inspector again but we will wait and see [...] ice the shoulder or alternate with heat. [facility] Other 01-05-2023 Evaluation note* Encounter Date Diagnosis Assessment Notes Treatment Notes Treatment Clinical Notes Apr, Hypertension (ICD-10 - I10) [facility] Other 10-24-2022 Evaluation note* Encounter Date Diagnosis [...] this. She does agree to see an telesales specialist. A referral is provided. Her range [...] her wi th an order for a [email or web address] vaccine [facility] Other 02-01-2021 History general Narrative - Reported* Type Description Date Medical History Stress Test; [facility], normal per patient Medical History Pap and Pelvic 3 yea rs ago, OBGYN in [place] Medical History Mammogram over 5 yea rs; Normal at that time per patient Medical History CT Abdomen and Pelvi s over 5 years ago; [facility] Medical History Colonoscopy 8 years ago; in [place], normal in patient Medical History Chest X-Ray 12-15-11; normal, The [facility] Medical History Echocardiogram; 12-15; The [facility] Medical History Cardiolite Stress Te st 12-16-11; The [facility] Medical History Check's sugar's bid Medical History Heart Catherization; The [facility] Medical History breast cancer 04/2014 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, status post lumpectomy x2, sentinel lymph node biopsy and adjuvant radiotherapy that concluded on 08-21-14 Medical History 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 - Dr French from [facility] Surgical History Tonsillectomy age 21 Surgical History ovarian tumor removed and left ovary Surgical History complete hysterectomy 1993 Surgical History Heart Catherization; [facility] Surgical History Right Shoulder Tear and bone spur removal; [facility] 07-27-12 Surgical History Left Shoulder [...] for a kidney stone Surgical History mammogram [facility] 04/2017 Surgical History vertabrae fusion 08/2018 Hospitalization History ovarian tumor removed an d left overy Hospitalization History complete hysterectomy 19 94 [facility] Other 01-19-2021 History general Narrative - Reported* Type Description Date Medical History Stress Test; [facility], normal per patient Medical History Pap and Pelvic 3 yea rs ago, OBGYN in [place] Medical History Mammogram over 5 yea rs; Normal at that time per patient Medical History CT Abdomen and Pelvi s over 5 years ago; [facility] Medical History Colonoscopy 8 years ago; in [place], normal in patient Medical History Chest X-Ray 12-15-11; normal, [facility] Medical History Echocardiogram; 12-15; [facility] Medical History Cardiolite Stress Te st 12-16-11; [facility] Medical History Check's sugar's bid Medical History Heart Catherization; The [facility] Medical History breast cancer 04/2014 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, status post lumpectomy x2, sentinel lymph node biopsy and adjuvant radiotherapy that concluded on 08-21-14 Medical History 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 - Dr French from [facility] Surgical History Tonsillectomy age 21 Surgical History ovarian tumor removed and left ovary Surgical History complete hysterectomy 1993 Surgical History Heart Catherization; [facility] Surgical History Right Shoulder Tear and bone spur removal; [facility] 07-27-12 Surgical History Left Shoulder [...] for a kidney stone Surgical History mammogram [facility] 04/2017 Surgical History vertabrae fusion 08/2018 Hospitalization History ovarian tumor removed an d left overy Hospitalization History complete hysterectomy 19 94 [facility] Other 12-27-2020 History general Narrative - Reported* Type Description Date Medical History Stress Test; [facility], normal per patient Medical History Pap and Pelvic 3 yea rs ago, OBGYN in [place] Medical History Mammogram over 5 yea rs; Normal at that time per patient Medical History CT Abdomen and Pelvi s over 5 years ago; [facility] Medical History Colonoscopy 8 years ago; in [place], normal in patient Medical History Chest X-Ray 12-15-11; normal, [facility] Medical History Echocardiogram; 12-15; The [facility] Medical History Cardiolite Stress Te st 12-16-11; The [facility] Medical History Check's sugar's bid Medical History Heart Catherization; The [facility] Medical History breast cancer 04/2014 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, status post lumpectomy x2, sentinel lymph node biopsy and adjuvant radiotherapy that concluded on 08-21-14 Medical History 11/2016 diabetic shif ting in rt eye - Dr French from [facility] Surgical History Tonsillectomy age 21 Surgical History ovarian tumor removed and left ovary Surgical History complete hysterectomy 1993 Surgical History Heart Catherization; [facility] Surgical History Right Shoulder Tear and bone spur removal; [facility] 07-27-12 Surgical History Left Shoulder [...] for a kidney stone Surgical History mammogram [facility] 04/2017 Surgical History vertabrae fusion 08/2018 Hospitalization History ovarian tumor removed an d left overy Hospitalization History complete hysterectomy 19 94 [facility] Other 12-20-2020 History general Narrative - Reported* Type Description Date Medical History Stress Test; [facility], normal per patient Medical History Pap and Pelvic 3 yea rs ago, OBGYN in [place] Medical History Mammogram over 5 yea rs; Normal at that time per patient Medical History CT Abdomen and Pelvi s over 5 years ago; [facility] Medical History Colonoscopy 8 years ago; in [place], normal in patient Medical History Chest X-Ray 12-15-11; normal, [facility] Medical History Echocardiogram; 12-15; [facility] Medical History Cardiolite Stress Te st 12-16-11; The [facility] Medical History Check's sugar's bid Medical History Heart Catherization; [facility] Medical History breast cancer 04/2014 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, status post lumpectomy x2, sentinel lymph node biopsy and adjuvant radiotherapy that concluded on 08-21-14 Medical History 11/2016 diabetic shif ting in rt eye - Dr French from [facility] Surgical History Tonsillectomy age 21 Surgical History ovarian tumor removed and left ovary Surgical History complete hysterectomy 1993 Surgical History Heart Catherization; [facility] Surgical History Right Shoulder Tear and bone spur removal; [facility] 07-27-12 Surgical History Left Shoulder [...] for a kidney stone Surgical History mammogram [facility] 04/2017 Surgical History vertabrae fusion 08/2018 Hospitalization History ovarian tumor removed an d left overy Hospitalization History complete hysterectomy [facility] Other 12-04-2020 History general Narrative - Reported* Type Description Date Medical History Stress Test; [facility], normal per patient Medical History Pap and Pelvic 3 yea rs ago, OBGYN in [place] Medical History Mammogram over 5 yea rs; Normal at that time per patient Medical History CT Abdomen and Pelvi s over 5 years ago; [facility] Medical History Colonoscopy 8 years ago; in [place], normal in patient Medical History Chest X-Ray 12-15-11; normal, [facility] Medical History Echocardiogram; 12-15; [facility] Medical History Cardiolite Stress Te st 12-16-11; [facility] Medical History Check's sugar's bid Medical History Heart Catherization; [facility] Medical History breast cancer 04/2014 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, status post lumpectomy x2, sentinel lymph node biopsy and adjuvant radiotherapy that concluded on 08-21-14 Medical History 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 - Dr French from [facility] Surgical History Tonsillectomy age 21 Surgical History ovarian tumor removed and left ovary Surgical History complete hysterectomy 1993 Surgical History Heart Catherization; [facility] Surgical History Right Shoulder Tear and bone spur removal; [facility] 07-27-12 Surgical History Left Shoulder [...] for a kidney stone Surgical History mammogram [facility] 04/2017 Surgical History vertabrae fusion 08/2018 Hospitalization History ovarian tumor removed an d left overy Hospitalization History complete hysterectomy [employer] Other 11-08-2020 History general Narrative - Reported* Type Description Date Medical History Stress Test; [facility], normal per patient Medical History Pap and Pelvic 3 yea rs ago, OBGYN in [place] Medical History Mammogram over 5 yea rs; Normal at that time per patient Medical History CT Abdomen and Pelvi s over 5 years ago; [facility] Medical History Colonoscopy 8 years ago; in [place], normal in patient Medical History Chest X-Ray 12-15-11; normal, [facility] Medical History Echocardiogram; 12-15; [facility] Medical History Cardiolite Stress Te st 12-16-11; [facility] Medical History Check's sugar's bid Medical History Heart Catherization; [facility] Medical History breast cancer 04/2014 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, status post lumpectomy x2, sentinel lymph node biopsy and adjuvant radiotherapy that concluded on 08-21-14 Medical History 11/2016 diabetic shif ting in rt eye - Dr French from [facility] Surgical History Tonsillectomy age 21 Surgical History ovarian tumor removed and left ovary Surgical History complete hysterectomy 1993 Surgical History Heart Catherization; [facility] Surgical History Right Shoulder Tear and bone spur removal; [facility] 07-27-12 Surgical History Left Shoulder [...] for a kidney stone Surgical History mammogram [facility] 04/2017 Surgical History vertabrae fusion 08/2018 Hospitalization History ovarian tumor removed an d left overy Hospitalization History complete hysterectomy [employer] Other 06-20-2020 History general Narrative - Reported* Type Description Date Medical History Stress Test; [facility], normal per patient Medical History Pap and Pelvic 3 yea rs ago, OBGYN in [place] Medical History Mammogram over 5 yea rs; Normal at that time per patient Medical History CT Abdomen and Pelvi s over 5 years ago; [facility] Medical History Colonoscopy 8 years ago; in [place], normal in patient Medical History Chest X-Ray 12-15-11; normal, [facility] Medical History Echocardiogram; 12-15; [facility] Medical History Cardiolite Stress Te st 12-16-11; [facility] Medical History Check's sugar's bid Medical History Heart Catherization; [facility] Medical History breast cancer 04/2014 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, status post lumpectomy x2, sentinel lymph node biopsy and adjuvant radiotherapy that concluded on 08-21-14 Medical History 11/2016 diabetic shif ting in rt eye - Dr French from [facility] Surgical History Tonsillectomy age 21 Surgical History ovarian tumor removed and left ovary Surgical History complete hysterectomy 1993 Surgical History Heart Catherization; [facility] Surgical History Right Shoulder Tear and bone spur removal; [facility] 07-27-12 Surgical History Left Shoulder [...] for a kidney stone Surgical History mammogram [facility] 04/2017 Surgical History vertabrae fusion 08/2018 Hospitalization History ovarian tumor removed an d left overy Hospitalization History complete hysterectomy 19 94 [employer] Other 05-03-2020 History general Narrative - Reported* Type Description Date Medical History Stress Test; [facility], normal per patient Medical History Pap and Pelvic 3 yea rs ago, OBGYN in [place] Medical History Mammogram over 5 yea rs; Normal at that time per patient Medical History CT Abdomen and Pelvi s over 5 years ago; [facility] Medical History Colonoscopy 8 years ago; in [place], normal in patient Medical History Chest X-Ray 12-15-11; normal, [facility] Medical History Echocardiogram; 12-15; [facility] Medical History Cardiolite Stress Te st 12-16-11; [facility] Medical History Check's sugar's bid Medical History Heart Catherization; [facility] Medical History breast cancer 04/2014 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, status post lumpectomy x2, sentinel lymph node biopsy and adjuvant radiotherapy that concluded on 08-21-14 Medical History 11/2016 diabetic shif ting in rt eye - Dr French from [facility] Surgical History Tonsillectomy age 21 Surgical History ovarian tumor removed and left ovary Surgical History complete hysterectomy 1993 Surgical History Heart Catherization; [facility] Surgical History Right Shoulder Tear and bone spur removal; [facility] 07-27-12 Surgical History Left Shoulder [...] for a kidney stone Surgical History mammogram [facility] 04/2017 Surgical History vertabrae fusion 08/2018 Hospitalization History ovarian tumor removed an d left overy Hospitalization History complete hysterectomy 19 94 [employer] Other 04-26-2020 History general Narrative - Reported* Type Description Date Medical History Stress Test; [facility], normal per patient Medical History Pap and Pelvic 3 yea rs ago, OBGYN in [place] Medical History Mammogram over 5 yea rs; Normal at that time per patient Medical History CT Abdomen and Pelvi s over 5 years ago; [facility] Medical History Colonoscopy 8 years ago; in [place], normal in patient Medical History Chest X-Ray 12-15-11; normal, [facility] Medical History Echocardiogram; 12-15; [facility] Medical History Cardiolite Stress Te st 12-16-11; [facility] Medical History Check's sugar's bid Medical History Heart Catherization; [facility] Medical History breast cancer 04/2014 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, status post lumpectomy x2, sentinel lymph node biopsy and adjuvant radiotherapy that concluded on 08-21-14 Medical History 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 - Dr French from [facility] Surgical History Tonsillectomy age 21 Surgical History ovarian tumor removed and left ovary Surgical History complete hysterectomy 1993 Surgical History Heart Catherization; [facility] Surgical History Right Shoulder Tear and bone spur removal; [facility] 07-27-12 Surgical History Left Shoulder [...] for a kidney stone Surgical History mammogram [facility] 04/2017 Surgical History vertabrae fusion 08/2018 Hospitalization History ovarian tumor removed an d left overy Hospitalization History complete hysterectomy 19 94 [employer] Other 04-21-2020 History general Narrative - Reported* Type Description Date Medical History Stress Test; [facility], normal per patient Medical History Pap and Pelvic 3 yea rs ago, OBGYN in [place] Medical History Mammogram over 5 yea rs; Normal at that time per patient Medical History CT Abdomen and Pelvi s over 5 years ago; [facility] Medical History Colonoscopy 8 years ago; in [place], normal in patient Medical History Chest X-Ray 12-15-11; normal, [facility] Medical History Echocardiogram; 12-15; [facility] Medical History Cardiolite Stress Te st 12-16-11; [facility] Medical History Check's sugar's bid Medical History Heart Catherization; [facility] Medical History breast cancer 04/2014 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, status post lumpectomy x2, sentinel lymph node biopsy and adjuvant radiotherapy that concluded on 08-21-14 Medical History 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 - Dr French from [facility] Surgical History Tonsillectomy age 21 Surgical History ovarian tumor removed and left ovary Surgical History complete hysterectomy 1993 Surgical History Heart Catherization; [facility] Surgical History Right Shoulder Tear and bone spur removal; [facility] 07-27-12 Surgical History Left Shoulder [...] for a kidney stone Surgical History mammogram [facility] 04/2017 Surgical History vertabrae fusion 08/2018 Hospitalization History ovarian tumor removed an d left overy Hospitalization History complete hysterectomy 19 94 [employer] Other 03-12-2020 History general Narrative - Reported* Type Description Date Medical History Stress Test; [facility], normal per patient Medical History Pap and Pelvic 3 yea rs ago, OBGYN in [place] Medical History Mammogram over 5 yea rs; Normal at that time per patient Medical History CT Abdomen and Pelvi s over 5 years ago; [facility] Medical History Colonoscopy 8 years ago; in [place], normal in patient Medical History Chest X-Ray 12-15-11; normal, [facility] Medical History Echocardiogram; 12-15; [facility] Medical History Cardiolite Stress Te st 12-16-11; [facility] Medical History Check's sugar's bid Medical History Heart Catherization; [facility] Medical History breast cancer 04/2014 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, status post lumpectomy x2, sentinel lymph node biopsy and adjuvant radiotherapy that concluded on 08-21-14 Medical History 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 - Dr French from [facility] Surgical History Tonsillectomy age 21 Surgical History ovarian tumor removed and left ovary Surgical History complete hysterectomy 1993 Surgical History Heart Catherization; [facility] Surgical History Right Shoulder Tear and bone spur removal; [facility] 07-27-12 Surgical History Left Shoulder [...] for a kidney stone Surgical History mammogram [facility] 04/2017 Surgical History vertabrae fusion 08/2018 Hospitalization History ovarian tumor removed an d left overy Hospitalization History complete hysterectomy 19 94 [employer] Other 03-07-2020 History general Narrative - Reported* Type Description Date Medical History Stress Test; [facility], normal per patient Medical History Pap and Pelvic 3 yea rs ago, OBGYN in [place] Medical History Mammogram over 5 yea rs; Normal at that time per patient Medical History CT Abdomen and Pelvi s over 5 years ago; [facility] Medical History Colonoscopy 8 years ago; in [place], normal in patient Medical History Chest X-Ray 12-15-11; normal, [facility] Medical History Echocardiogram; 12-15; [facility] Medical History Cardiolite Stress Te st 12-16-11; [facility] Medical History Check's sugar's bid Medical History Heart Catherization; [facility] Medical History breast cancer 04/2014 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, status post lumpectomy x2, sentinel lymph node biopsy and adjuvant radiotherapy that concluded on 08-21-14 Medical History 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 - Dr French from [facility] Surgical History Tonsillectomy age 21 Surgical History ovarian tumor removed and left ovary Surgical History complete hysterectomy 1993 Surgical History Heart Catherization; [facility] Surgical History Right Shoulder Tear and bone spur removal; [facility] 07-27-12 Surgical History Left Shoulder [...] for a kidney stone Surgical History mammogram [facility] 04/2017 Surgical History vertabrae fusion 08/2018 Hospitalization History ovarian tumor removed an d left overy Hospitalization History complete hysterectomy 19 94 [employer] Other 03-04-2020 History general Narrative - Reported* Type Description Date Medical History Stress Test; [facility], normal per patient Medical History Pap and Pelvic 3 yea rs ago, OBGYN in [place] Medical History Mammogram over 5 yea rs; Normal at that time per patient Medical History CT Abdomen and Pelvi s over 5 years ago; [facility] Medical History Colonoscopy 8 years ago; in [place], normal in patient Medical History Chest X-Ray 12-15-11; normal, [facility] Medical History Echocardiogram; 12-15; [facility] Medical History Cardiolite Stress Te st 12-16-11; [facility] Medical History Check's sugar's bid Medical History Heart Catherization; [facility] Medical History breast cancer 04/2014 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, status post lumpectomy x2, sentinel lymph node biopsy and adjuvant radiotherapy that concluded on 08-21-14 Medical History 11/2016 diabetic shif ting in rt eye - Dr French from [facility] Surgical History Tonsillectomy age 21 Surgical History ovarian tumor removed and left ovary Surgical History complete hysterectomy 1993 Surgical History Heart Catherization; [facility] Surgical History Right Shoulder Tear and bone spur removal; [facility] 07-27-12 Surgical History Left Shoulder [...] for a kidney stone Surgical History mammogram [facility] 04/2017 Surgical History vertabrae fusion 08/2018 Hospitalization History ovarian tumor removed an d left overy Hospitalization History complete hysterectomy 19 94 [employer] Other 02-22-2020 History general Narrative - Reported* Type Description Date Medical History Stress Test; [facility], normal per patient Medical History Pap and Pelvic 3 yea rs ago, OBGYN in [place] Medical History Mammogram over 5 yea rs; Normal at that time per patient Medical History CT Abdomen and Pelvi s over 5 years ago; [facility] Medical History Colonoscopy 8 years ago; in [place], normal in patient Medical History Chest X-Ray 12-15-11; normal, [facility] Medical History Echocardiogram; 12-15; [facility] Medical History Cardiolite Stress Te st 12-16-11; [facility] Medical History Check's sugar's bid Medical History Heart Catherization; [facility] Medical History breast cancer 04/2014 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, status post lumpectomy x2, sentinel lymph node biopsy and adjuvant radiotherapy that concluded on 08-21-14 Medical History 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 - Dr French from [facility] Surgical History Tonsillectomy age 21 Surgical History ovarian tumor removed and left ovary Surgical History complete hysterectomy 1993 Surgical History Heart Catherization; [facility] Surgical History Right Shoulder Tear and bone spur removal; [facility] 07-27-12 Surgical History Left Shoulder [...] for a kidney stone Surgical History mammogram [facility] 04/2017 Surgical History vertabrae fusion 08/2018 Hospitalization History ovarian tumor removed an d left overy Hospitalization History complete hysterectomy [employer] Other 02-12-2020 History general Narrative - Reported* Type Description Date Medical History Stress Test; [facility], normal per patient Medical History Pap and Pelvic 3 yea rs ago, OBGYN in [place] Medical History Mammogram over 5 yea rs; Normal at that time per patient Medical History CT Abdomen and Pelvi s over 5 years ago; [facility] Medical History Colonoscopy 8 years ago; in [place], normal in patient Medical History Chest X-Ray 12-15-11; normal, [facility] Medical History Echocardiogram; 12-15; [facility] Medical History Cardiolite Stress Te st 12-16-11; [facility] Medical History Check's sugar's bid Medical History Heart Catherization; [facility] Medical History breast cancer 04/2014 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, status post lumpectomy x2, sentinel lymph node biopsy and adjuvant radiotherapy that concluded on 08-21-14 Medical History 11/2016 diabetic shif ting in rt eye - Dr French from [facility] Surgical History Tonsillectomy age 21 Surgical History ovarian tumor removed and left ovary Surgical History complete hysterectomy 1993 Surgical History Heart Catherization; [facility] Surgical History Right Shoulder Tear and bone spur removal; [facility] 07-27-12 Surgical History Left Shoulder [...] for a kidney stone Surgical History mammogram [facility] 04/2017 Surgical History vertabrae fusion 08/2018 Hospitalization History ovarian tumor removed an d left overy Hospitalization History complete hysterectomy [employer] [facility] [employer] Other 10-27-2019 History general Narrative - Reported* Type Description Date Medical History Stress Test; [facility], normal per patient Medical History Pap and Pelvic 3 yea rs ago, OBGYN in [place] Medical History Mammogram over 5 yea rs; Normal at that time per patient Medical History CT Abdomen and Pelvi s over 5 years ago; [facility] Medical History Colonoscopy 8 years ago; in [place], normal in patient Medical History Chest X-Ray 12-15-11; normal, [facility] Medical History Echocardiogram; 12-15; [facility] Medical History Cardiolite Stress Te st 12-16-11; [facility] Medical History Check's sugar's bid Medical History Heart Catherization; [facility] Medical History breast cancer 04/2014 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, status post lumpectomy x2, sentinel lymph node biopsy and adjuvant radiotherapy that concluded on 08-21-14 Medical History 11/2016 diabetic shif ting in rt eye - Dr French from [facility] Surgical History Tonsillectomy age 21 Surgical History ovarian tumor removed and left ovary Surgical History complete hysterectomy 1993 Surgical History Heart Catherization; [facility] Surgical History Right Shoulder Tear and bone spur removal; [facility] 07-27-12 Surgical History Left Shoulder [...] for a kidney stone Surgical History mammogram [facility] 04/2017 Surgical History vertabrae fusion 08/2018 Hospitalization History ovarian tumor removed an d left overy Hospitalization History complete hysterectomy 94 [employer] Other Evaluation noteNo InformationNort [place] [id number] Other Evaluation noteNo assessment information available [facility] Work Phone: Reason for referral (narrative)* Reason appt pt needs cons ult w/ Dr. Cornejo or Viki for evaluation of right shoulder pain Diagnosis 1 Shoulder pain, right (M25.511) Referral Organization [facility] Referring Provider First Name Rin Referring Provider Last Name Lyn Referring Provider Specialty Family Prac meenu Referred Organization [facility] Referred Address ,[place], [place],[address] Referred Provider Specialty Orthopedic S urgery Referral Priority Routine General Notes HoracioFlorinda 02/08/2022 05:31:28 PM > Access Ortho referral form hard faxed with visit note, med list and insurance card. pt understands she will be contacted to schedule this appt. [employer] Other Summary Purpose Family History Relationship Condition Age at Onset Recorded Date/T rob father Pulmonary emphysema Unknown Not Specified Cerebrovascular accident (CVA) Unknown Advance Directives Advance Directive Response Recorded Date/ Time Advance Directives No February 15, 2017 3:18pm Hospital Course Note MR#: [id number] I [facility] Pt. Name: Criselda Morfin Admitted: 08/23/2018 Discharged: [...] CREATED AUTHOR AUTHOR'S ORGANIZ ATION 12/09/2018 [facility] DATE CREATED AUTHOR AUTHOR'S ORGANIZ ATION 08/31/2022 [facility] DATE CREATED AUTHOR AUTHOR'S ORGANIZ ATION 05/07/2023 [facility] REASON FOR VISIT (unrecogniz ed [...] BE BASED ON THE PRIMARY CLINICAL RECORDS. [employer] provides no warranty or guarantee of the accuracy or completeness of information in this document.
[2023-11-30 09:01] LABS: Alanine Aminotransferase 27 U/L (14-59); Albumin Globulin Ratio 0.9; Albumin Level 3.6 g/dL (3.4-5.0); Alkaline Phosphatase 130 U/L (46-116); Aspartate Amino Transferase 15 U/L (15-37); Bilirubin Direct 0.1 mg/dL (0.0-0.2); Bilirubin Total 0.3 mg/dL (0.2-1.0); Total Protein 7.6 g/dL (6.4-8.2)
[2023-11-30 09:24] LABS: Free T4 1.69 ng/dL (0.76-1.46)
[2023-11-30 09:30] LABS: Thyroid Stimulating Hormone <0.007 uIU/mL (0.358-3.740)
[2023-12-02 08:12] LABS: Thyrotropin Receptor Ab, Serum 3.51 IU/L (0.00-1.75)
== END 2023-11-30 06:32 | disposition home or self-care (01) ==
LOC: LAB 06:31
PROVIDERS: PCP Family Medicine; Visit Provider Internal Medicine
DX: E05.90 Thyrotoxicosis, unspecified without thyrotoxic crisis or storm (principal); E05.20 Thyrotoxicosis with toxic multinodular goiter without thyrotoxic crisis or storm
CPT/HCPCS: 36415; 80076; 83520; 84439; 84443; 84481

== ENCOUNTER 2024-01-30 07:01 | Outpatient (OUT) | payer OTHER, SELFPAY ==
--- NOTE | 2024-01-30 07:04 | US_ITS ---
[address] [address] Patient Name: JIMMIE MORFIN MRN: [id number] date: 1955 Sex: F Assigned Patient Location: [place] Current Patient Location: [place] Accession/Order Number: [id number] Exam Date: 01/30/2024 07:05 Report Date: 01/30/2024 08:26 At the request of: RIN NICHOLSON Procedure: US right upper quadrant EXAM: US right upper quadrant HISTORY: Abdominal pain COMPARISON: None. TECHNIQUE: Grayscale, color and Doppler FINDINGS: The liver is normal in size and contour. Increase in hepatic echotexture. 1.1 cm hyperechogenic lesion in the left hepatic lobe, subcapsular, nonspecific Hepatopedal flow in the main portal vein with a velocity of 30 cm/s The visualized pancreas is normal The gallbladder is normal in size. The wall measures 2.8 mm per the common bile duct measures 2.2 mm. No pericholecystic fluid. Negative sonographic Kern sign. The right kidney is normal measuring 8.6 x 5.1 x 5.5 cm. No hydronephrosis US/US right upper quadrant IMPRESSION: Echogenic liver, consider hepatic steatosis 1.1 cm subcapsular lesion in the left hepatic lobe, nonspecific Electronically authenticated by: RIN WESLEY Date: 01/30/2024 08:26
--- OUTSIDE RECORDS SUMMARY | 2024-01-30 07:04 | XMS_ITS | CCD ---
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 Role Phone Selin Jean Attending Unavailable Ted, Selin Pastor Attending Unavailable CHUCHO HONEYCUTT Attending Unavailable Ted, Selin Pastor Attending Unavailable UNKNOWN, PROVIDER Admitting Unavailable SELF, REFERRED Referring Unavailable SELF, REFERRED Primary Care Unavailable CHIP CEDILLO Attending Unavailable NC Procedure Practitioner Unavailab le UNKNOWN, PROVIDER Surgeon [...] Unavailable Lyn, DO Gar Primary Care Provider [phone] DO Rin Nicholson Attending Provider [phone] Rin Nicholson Attending Unavailable Lyn, Rin Primary [...] 1 tablet by mouth once daily Vitamin U48-Etorw Acid Active 1 TAB PO Daily May [...] kidney disease Other aftercare (1 source) Other penitentiary (current) drug therapy; 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: [OTH SENIOR LIVING CURRENT DRUG THERAPY] Onset: 05-03-2022 Episodic Other aftercare (1 source) 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; 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: [SENIOR LIVING USE ORAL HYPOGLYCEMIC DX] Onset: 05-03-2022 Episodic Pneumonia (except that caused by tuberculosis or sexually transmitted disease) (1 source) Bronchopneumonia, unspecified organism; 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: [BRONCHOPNEUMONIA UNS ORGANISM] Onset: 05-03-2022 Episodic Unclassified (1 source) COUGH, UNSPECIFIED; 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: [COUGH, UNSPECIFIED] Onset: 04-30-2022 Results Test Name Value Interpretation Reference Range Facility MM screening mammo BI w/CADo n 05-03-2023 MM screening mammo BI w/CAD [facility] [place] [address] [place] [address] Mammography Report Signed Patient: Leslee Morfin MR#: [id number] : 1955 Acct:[id number] Age/Sex: 67 / F ADM Date: 05/03/23 Loc: [place] Room: Type: [facility] Attending Dr: Rin Nicholson DO Copies to: [...] Carmela Cuevas M.D.05/03/2023 1:52 PM Dictation Location: [facility] Transcribed By: [facility] 05/03/23 1352 Dictated By: Carmela Cuevas MD 05/03/23 1349 Signed By: 05/03/23 1352 [facility] PROF CHEM 8 (BAS METB)on Anion gap [Moles/Vol] 14.4 mmol/L Normal [facility] Comment on above: Performed By: #### B MP #### [facility] [address] [place] [address] Dr. Raf Pearl Calcium [Mass/Vol] 9.3 mg/dL Normal 8.5-10.1 [facility] Comment on above: Performed By: #### B MP #### [facility] [address] [address] [address] Raf Pearl Chloride [Moles/Vol] 102 mmol/L Normal 98-107 [facility] Comment on above: Performed By: #### B MP #### [facility] [address] [address] [address] Raf Pearl CO2 [Moles/Vol] 26.9 mmol/L Normal 21.0-32.0 [facility] Comment on above: Performed By: #### B MP #### [facility] [address] [address] [address] Raf Pearl Creatinine [Mass/Vol] 1.32 mg/dL Critically high 0.55-1.02 [facility] Comment on above: Performed By: #### B MP #### [facility] [address] [place] [address] Dr. Raf Pearl EGFR-AF ANDORRAN 49 mL/min/1.73m2 Critically low >=60 [facility] Comment on above: Performed By: #### B MP #### [facility] [address] [place] [address] Dr. Raf Pearl EGFR-NON AF ANDORRAN 40 mL/min/1.73m2 Critically low >=60 [facility] Comment on above: Performed By: #### B MP #### [facility] [address] [address] [address] Raf Pearl Glucose [Mass/Vol] 151 mg/dL Critically high 74-106 [facility] Comment on above: Performed By: #### B MP #### [facility] [address] [address] [address] Raf Pearl Potassium [Moles/Vol] 4.3 mmol/L Normal 3.5-5.1 [facility] Comment on above: Performed By: #### B MP #### [facility] [address] [address] [address] Raf Pearl Sodium [Moles/Vol] 139 mmol/L Normal 136-145 [facility] Comment on above: Performed By: #### B MP #### [facility] [address] [address] [address] Raf Pearl Urea nitrogen [Mass/Vol] 17.0 mg/dL Normal 7.0-18.0 [facility] Comment on above: Performed By: #### B MP #### [facility] [address] [address] [address] Raf Pearl Urea nitrogen/Creatinine [Mass ratio] 12.9 mg/mg Normal [facility] Comment on above: Performed By: #### B MP #### [facility] [address] [address] [address] Raf Pearl PROF CHEM 8 (BAS METB)on Anion gap [Moles/Vol] 9.7 mmol/L Normal [facility] Comment on above: Performed By: #### B MP #### [facility] [address] [address] [address] Raf Pearl Calcium [Mass/Vol] 9.1 mg/dL Normal 8.5-10.1 [facility] Comment on above: Performed By: #### B MP #### [facility] [address] [address] [address] Raf Pearl Chloride [Moles/Vol] 100 mmol/L Normal 98-107 [facility] Comment on above: Performed By: #### B MP #### [facility] [address] [address] [address] Raf Pearl CO2 [Moles/Vol] 28.0 mmol/L Normal 21.0-32.0 [facility] Comment on above: Performed By: #### B MP #### [facility] [address] [address] [address] Raf Pearl Creatinine [Mass/Vol] 1.18 mg/dL Critically high 0.55-1.02 [facility] Comment on above: Performed By: #### B MP #### [facility] [address] [place] [address] Dr. Raf Pearl EGFR-AF ANDORRAN 56 mL/min/1.73m2 Critically low >=60 [facility] Comment on above: Performed By: #### B MP #### [facility] [address] [place] [address] Dr. Raf Paerl EGFR-NON AF ANDORRAN 46 mL/min/1.73m2 Critically low >=60 [facility] Comment on above: Performed By: #### B MP #### [facility] [address] [place] [address] Dr. Raf Pearl Glucose [Mass/Vol] 113 mg/dL Critically high 74-106 [facility] Comment on above: Performed By: #### B MP #### [facility] [address] [address] [address] Raf Pearl Potassium [Moles/Vol] 3.7 mmol/L Normal 3.5-5.1 [facility] Comment on above: Performed By: #### B MP #### [facility] [address] [place] [address] Dr. Raf Pearl Sodium [Moles/Vol] 134 mmol/L Critically low 136-145 [facility] Comment on above: Performed By: #### B MP #### [facility] [address] [place] [address] Dr. Raf Pearl Urea nitrogen [Mass/Vol] 13.0 mg/dL Normal 7.0-18.0 [facility] Comment on above: Performed By: #### B MP #### [facility] [address] [place] [address] Dr. Raf Pearl Urea nitrogen/Creatinine [Mass ratio] 11.0 mg/mg Normal [facility] Comment on above: Performed By: #### B MP #### [facility] [address] [place] [address] Dr. Raf Pearl FOLATE ([facility])on 3 Folate >20.0 Normal >3.0 [facility] Comment on above: Result Comment: A se rum folate concentration of less than 3.1 ng/mL is considered to represent clinical deficiency. Performed By: #### F OLALC #### [facility] [address] [place] [address] Dr. Raf Pearl CBC AUTO DIFFon 07-31-2022 BASO # 0.1 103/ul Normal 0.0-0.1 [facility] Comment on above: Performed By: #### M ALBR #### [facility] [address] [place] [address] Dr. Raf Pearl Basophils/100 WBC (Bld) 1.3 % Normal 0.2-2.0 [facility] Comment on above: Performed By: #### M ALBR #### [facility] [address] [place] [address] Dr. Raf Pearl EO # 0.4 103/ul Normal 0.0-0.7 [facility] Comment on above: Performed By: #### M ALBR #### [facility] [address] [place] [address] Dr. Rfa Pearl Eosinophils/100 WBC (Bld) 4.5 % Normal 0.9-7.0 [facility] Comment on above: Performed By: #### M ALBR #### [facility] [address] [place] [address] Dr. Raf Pearl Erythrocyte distribution width (RBC) [Ratio] 13.2 % Normal 11.0-15.0 [facility] Comment on above: Performed By: #### M ALBR #### [facility] [address] [place] [address] Dr. Raf Pearl Hematocrit (Bld) [Volume fraction] 33.8 % Critically low 36.0-48.0 [facility] Comment on above: Performed By: #### M ALBR #### [facility] [address] [place] [address] Dr. Raf Pearl Hemoglobin (Bld) [Mass/Vol] 11.5 g/dL Critically low 12.0-16.0 [facility] Comment on above: Performed By: #### M ALBR #### [facility] [address] [place] [address] Dr. Raf Pearl IG # 0.02 10e3/ul Normal 0.00-0.03 [facility] Comment on above: Performed By: #### M ALBR #### [facility] [address] [place] [address] Dr. Raf Pearl IG % 0.2 % Normal 0.0-0.5 [facility] Comment on above: Performed By: #### M ALBR #### [facility] [address] [place] [address] Dr. Raf Pearl LYMPH # 2.6 103/ul Normal 1.2-3.8 [facility] Comment on above: Performed By: #### M ALBR #### [facility] [address] [place] [address] Dr. Raf Pearl Lymphocytes/100 WBC (Bld) 31.6 % Normal 20.5-60.0 [facility] Comment on above: Performed By: #### M ALBR #### [facility] [address] [place] [address] Dr. Raf Pearl MANUAL DIFF REQ NO Normal [facility] Comment on above: Performed By: #### M ALBR #### [facility] [address] [place] [address] Dr. Raf Pearl MCH (RBC) [Entitic mass] 31.1 pg Normal 26.7-34.0 [facility] Comment on above: Performed By: #### M ALBR #### [facility] [address] [address] [address] Raf Pearl MCHC (RBC) [Mass/Vol] 34.0 g/dL Normal 29.9-35.2 [facility] Comment on above: Performed By: #### M ALBR #### [facility] [address] [place] [address] Dr. Raf Pearl MCV (RBC) [Entitic vol] 91.4 fL Normal 81.0-99.0 [facility] Comment on above: Performed By: #### M ALBR #### [facility] [address] [place] [address] Dr. Raf Pearl MONO # 0.6 103/ul Normal 0.3-0.8 [facility] Comment on above: Performed By: #### M ALBR #### [facility] [address] [place] [address] Dr. Raf Pearl Monocytes/100 WBC (Bld) 7.2 % Normal 1.7-12.0 [facility] Comment on above: Performed By: #### M ALBR #### [facility] [address] [place] [address] Dr. Raf Pearl NEUT # 4.6 103/ul Normal 1.4-6.5 [facility] Comment on above: Performed By: #### M ALBR #### [facility] [address] [place] [address] Dr. Raf Pearl Neutrophils/100 WBC (Bld) 55.2 % Normal 43.0-75.0 [facility] Comment on above: Performed By: #### M ALBR #### [facility] [address] [place] [address] Dr. Raf Pearl Platelet mean volume (Bld) [Entitic vol] 10.0 fL Normal 9.5-13.5 [facility] Comment on above: Performed By: #### M ALBR #### [facility] [address] [place] [address] Dr. Raf Pearl PLT 352 103/ul Normal 150-450 [facility] Comment on above: Performed By: #### M ALBR #### [facility] [address] [address] [address] Raf Pearl RBC 3.70 106/ul Critically low 4.20-5.40 [facility] Comment on above: Performed By: #### M ALBR #### [facility] [address] [address] [address] Raf Pearl WBC 8.2 103/ul Normal 4.0-11.0 [facility] Comment on above: Performed By: #### M ALBR #### [facility] [address] [address] [address] Raf Pearl CULTURE URINEon 07-31-2022 CULTURE URINE Culture Observations: NO GROWTH. Normal [facility] Comment on above: Performed By: #### B MP #### [facility] [address] [place] [address] Dr. Raf Pearl GLYCOHEMOGLOBIN A1Con 2022 ADA RECOMMENDATION SEE BELOW Normal [facility] Comment on above: Result Comment: ADA RECOMMENDED LIMIT 4.0 - 6.0 ADA THERAPEUTIC TARGET < 7.0 ACTION SUGGESTED > 7.0 Performed By: #### B MP #### [facility] [address] [place] [address] Dr. Raf Pearl Glucose [Mass/Vol] 140 mg/dL Normal [facility] Comment on above: Performed By: #### B MP #### [facility] [address] [place] [address] Dr. Raf Pearl HbA1c (Bld) [Mass fraction] 6.5 % Critically high 4.5-6.2 [facility] Comment on above: Performed By: #### B MP #### [facility] [address] [place] [address] Dr. Raf Pearl LIPID PROFILEon 07-31-2022 CHOL-HDL RATIO NORM SEE BELOW Normal [facility] Comment on above: Result Comment: 3.3 - 4.4 LOW RISK 4.4 - 7.1 AVERAGE RISK 7.1 - 11.0 MODERATE RISK >11.0 HIGH RISK Performed By: #### C MP, LIPID, TSH #### [facility] [address] [address] [address] Raf Pearl Cholesterol [Mass/Vol] 166 mg/dL Normal <=200 [facility] Comment on above: Performed By: #### C MP, LIPID, TSH #### [facility] [address] [address] [address] Raf Pearl Cholesterol in HDL [Mass/Vol] 57 mg/dL Normal 40-60 [facility] Comment on above: Performed By: #### C MP, LIPID, TSH #### [facility] [address] [address] [address] Raf Pearl Cholesterol in LDL [Mass/Vol] 91.4 mg/dL Normal [facility] Comment on above: Performed By: #### C MP, LIPID, TSH #### [facility] [address] [address] [address] Raf Pearl Cholesterol.total/Ch olesterol in HDL [Mass ratio] 2.9 {ratio} Normal [facility] Comment on above: Performed By: #### C MP, LIPID, TSH #### [facility] [address] [address] [address] Raf Pearl HDL NORMAL > or = 60 mg/dl - LOW CARDIOVASCULAR RISK <40 mg/dl - HIGH CARDIOVASCULAR RISK Normal [facility] Comment on above: Performed By: #### C MP, LIPID, TSH #### [facility] [address] [address] [address] Raf Pearl LDL CALC NORMAL SEE BELOW Normal [facility] Comment on above: Result Comment: <100 mg/dl OPTIMAL 100 - 129 mg/dl NEAR OR ABOVE OPTIMAL 130 - 159 mg/dl BORDERLINE HIGH 160 - 189 mg/dl HIGH >190 mg/dl VERY HIGH Performed By: #### C MP, LIPID, TSH #### [facility] [address] [address] [address] Raf Pearl Triglyceride [Mass/Vol] 88 mg/dL Normal <=150 [facility] Comment on above: Performed By: #### C MP, LIPID, TSH #### [facility] [address] [address] [address] Raf Pearl VLDL CALC 17.6 mg/dL Normal [facility] Comment on above: Performed By: #### C MP, LIPID, TSH #### [facility] [address] [place] [address] Dr. Raf Pearl MICROALBUMIN, RAND URon 07-17 mALB <1.3 Normal <=30.0 [facility] Comment on above: Performed By: #### M ALBR #### [facility] [address] [address] [address] Raf Pearl PROF 14(COMP METB)on 023 Albumin [Mass/Vol] 3.6 g/dL Normal 3.4-5.0 [facility] Comment on above: Performed By: #### C MP, LIPID, TSH #### [facility] [address] [place] [address] Dr. Raf Pearl Albumin/Globulin [Mass ratio] 1.0 {ratio} Normal [facility] Comment on above: Performed By: #### C MP, LIPID, TSH #### [facility] [address] [place] [address] Dr. Raf Pearl ALP [Catalytic activity/Vol] 70 U/L Normal 46-116 [facility] Comment on above: Performed By: #### C MP, LIPID, TSH #### [facility] [address] [place] [address] Dr. Raf Pearl ALT [Catalytic activity/Vol] 22 U/L Normal 14-59 [facility] Comment on above: Performed By: #### C MP, LIPID, TSH #### [facility] [address] [place] [address] Dr. Raf Pearl Anion gap [Moles/Vol] 11.8 mmol/L Normal [facility] Comment on above: Performed By: #### C MP, LIPID, TSH #### [facility] [address] [place] [address] Dr. Raf Pearl AST [Catalytic activity/Vol] 19 U/L Normal 15-37 [facility] Comment on above: Performed By: #### C MP, LIPID, TSH #### [facility] [address] [address] [address] Raf Pearl Bilirubin [Mass/Vol] 0.3 mg/dL Normal 0.2-1.0 [facility] Comment on above: Performed By: #### C MP, LIPID, TSH #### [facility] [address] [address] [address] Raf Pearl Calcium [Mass/Vol] 9.0 mg/dL Normal 8.5-10.1 [facility] Comment on above: Performed By: #### C MP, LIPID, TSH #### [facility] [address] [address] [address] Raf Pearl Chloride [Moles/Vol] 104 mmol/L Normal 98-107 [facility] Comment on above: Performed By: #### C MP, LIPID, TSH #### [facility] [address] [place] [address] Dr. Raf Pearl CO2 [Moles/Vol] 28.6 mmol/L Normal 21.0-32.0 [facility] Comment on above: Performed By: #### C MP, LIPID, TSH #### [facility] [address] [address] [address] Raf Pearl Creatinine [Mass/Vol] 1.48 mg/dL Critically high 0.55-1.02 [facility] Comment on above: Performed By: #### C MP, LIPID, TSH #### [facility] [address] [address] [address] Raf Pearl EGFR-AF ANDORRAN 43 mL/min/1.73m2 Critically low >=60 [facility] Comment on above: Performed By: #### C MP, LIPID, TSH #### [facility] [address] [address] [address] Raf Pearl EGFR-NON AF ANDORRAN 35 mL/min/1.73m2 Critically low >=60 [facility] Comment on above: Performed By: #### C MP, LIPID, TSH #### [facility] [address] [address] [address] Raf Pearl Globulin (S) [Mass/Vol] 3.5 g/dL Normal [facility] Comment on above: Performed By: #### C MP, LIPID, TSH #### [facility] [address] [address] [address] Raf Pearl Glucose [Mass/Vol] 102 mg/dL Normal 74-106 [facility] Comment on above: Performed By: #### C MP, LIPID, TSH #### [facility] [address] [place] [address] Dr. Raf Pearl Potassium [Moles/Vol] 4.4 mmol/L Normal 3.5-5.1 [facility] Comment on above: Performed By: #### C MP, LIPID, TSH #### [facility] [address] [place] [address] Dr. Raf Pearl Protein [Mass/Vol] 7.1 g/dL Normal 6.4-8.2 [facility] Comment on above: Performed By: #### C MP, LIPID, TSH #### [facility] [address] [place] [address] Dr. Raf Pearl Sodium [Moles/Vol] 140 mmol/L Normal 136-145 [facility] Comment on above: Performed By: #### C MP, LIPID, TSH #### [facility] [address] [place] [address] Dr. Raf Pearl Urea nitrogen [Mass/Vol] 21.0 mg/dL Critically high 7.0-18.0 [facility] Comment on above: Performed By: #### C MP, LIPID, TSH #### [facility] [address] [place] [address] Dr. Raf Pearl Urea nitrogen/Creatinine [Mass ratio] 14.2 mg/mg Normal [facility] Comment on above: Performed By: #### C MP, LIPID, TSH #### [facility] [address] [place] [address] Dr. Raf Pearl TSHon 07-31-2022 TSH 2.298 uIU/mL Normal 0.358-3.740 [facility] Comment on above: Performed By: #### C MP, LIPID, TSH #### [facility] [address] [place] [address] Dr. Raf Pearl UA RANDOM W/MICROSCOPICon BACTERIA NONE SEEN Normal NONE SEEN [facility] Comment on above: Performed By: #### B MP #### [facility] [address] [place] [address] Dr. Raf Pearl Bilirubin Ql (U) Negative Normal NEGATIVE [facility] Comment on above: Performed By: #### B MP #### [facility] [address] [place] [address] Dr. Raf Pearl CAST NONE SEEN Normal NONE SEEN [facility] Comment on above: Performed By: #### B MP #### [facility] [address] [place] [address] Dr. Raf Pearl Clarity (U) CLEAR Normal CLEAR [facility] Comment on above: Performed By: #### B MP #### [facility] [address] [place] [address] Dr. Raf Pearl Color (U) LT. YELLOW Normal YELLOW [facility] Comment on above: Performed By: #### B MP #### [facility] [address] [place] [address] Dr. Raf Pearl Crystals LM Nom (Urine sed) NONE SEEN Normal NONE SEEN [facility] Comment on above: Performed By: #### B MP #### [facility] [address] [place] [address] Dr. Raf Pearl Epithelial cells LM Ql (Urine sed) NONE SEEN Normal NONE SEEN /RARE [facility] Comment on above: Performed By: #### B MP #### [facility] [address] [place] [address] Dr. Raf Pearl Glucose Ql (U) Negative Normal NEGATIVE [facility] Comment on above: Performed By: #### B MP #### [facility] [address] [place] [address] Dr. Raf Pearl Hemoglobin Ql (U) Negative Normal NEGATIVE [facility] Comment on above: Performed By: #### B MP #### [facility] [address] [place] [address] Dr. Raf Pearl Ketones Ql (U) Negative Normal NEGATIVE [facility] Comment on above: Performed By: #### B MP #### [facility] [address] [place] [address] Dr. Raf Pearl LEUKOCYTES Negative Normal NEGATIVE [facility] Comment on above: Performed By: #### B MP #### [facility] [address] [place] [address] Dr. Raf Pearl MUCOUS NONE SEEN Normal NONE SEEN [facility] Comment on above: Performed By: #### B MP #### [facility] [address] [place] [address] Dr. Raf Pearl Nitrite Ql (U) Negative Normal NEGATIVE [facility] Comment on above: Performed By: #### B MP #### [facility] [address] [place] [address] Dr. Raf Pearl pH (U) 7.0 [pH] Normal 5-9 [facility] Comment on above: Performed By: #### B MP #### [facility] [address] [place] [address] Dr. Raf Pearl RBC 0-2 Normal 0-2 [facility] Comment on above: Performed By: #### B MP #### [facility] [address] [place] [address] Dr. Raf Peral SPEC GRAVITY <=1.005 Abnormal 1.005-<=1.025 [facility] Comment on above: Performed By: #### B MP #### [facility] [address] [place] [address] Dr. Raf Pearl UA PROTEIN Negative Normal NEGATIVE/ TRACE [facility] Comment on above: Performed By: #### B MP #### [facility] [address] [place] [address] Dr. Raf Pearl Urobilinogen Qn (U) 0.2 {Tawana'U}/dL Normal 0.2 - 1. 0 [facility] Comment on above: Performed By: #### B MP #### [facility] [address] [place] [address] Dr. Raf Pearl WBC NONE SEEN Normal NONE SEEN [facility] Comment on above: Performed By: #### B MP #### [facility] [address] [address] [address] Raf Pearl VITAMIN B12on 07-31-2022 Cobalamin (Vitamin B12) [Mass/Vol] 600.0 pg/mL Normal 193.0-986.0 [facility] Comment on above: Performed By: #### B MP #### [facility] [address] [address] [address] Raf Pearl Covid-19 PCR ([facility])on 04-18 SARS-CoV-2 (COVID-19) RNA KHANH+probe Ql (Unsp spec) Not detected Normal NOT DETECTED [facility] Comment on above: Result Comment: When [...] for this test is supported by the [place] of Health and Human Service's declaration that [...] used). Performed By: #### C VDTBH #### [facility] [address] [place] [address] Dr. Raf Pearl INFLUENZA A AND B AGon 04-30 INFLUANEGH SEE BELOW Normal [facility] Comment on above: Result Comment: Nega tive for Flu A protein angiten. Infection due to Flu A cannot be ruled out. Flu A angiten in the sample may be below the detection limit of the test. Performed By: #### B MP #### [facility] [address] [address] [address] Raf Pearl INFLUBNEGH SEE BELOW Normal [facility] Comment on above: Result Comment: Nega tive for Flu B protein antigen. Infection due to Flu B cannot be ruled out. Flu B antigen in the sample may be below the detection limit of the test. Performed By: #### B MP #### [facility] [address] [place] [address] Dr. Raf Pearl INFLUENZA A AG Negative Normal NEGATIVE SEE COMMENT [facility] Comment on above: Performed By: #### B MP #### [facility] [address] [place] [address] Dr. Raf Pearl INFLUENZA B AG Negative Normal NEGATIVE SEE COMMENT [facility] Comment on above: Performed By: #### B MP #### [facility] [address] [place] [address] Dr. Raf Pearl XR CHEST 2 Von [...] BUDDY LEMOS Date: 2022-04-30 19:38 Normal [facility] PROF CHEM 8 (BAS METB)on Anion gap [Moles/Vol] 12.6 mmol/L Normal [facility] Comment on above: Performed By: #### B MP #### [facility] [address] [place] [address] Dr. Raf Pearl Calcium [Mass/Vol] 9.4 mg/dL Normal 8.5-10.1 [facility] Comment on above: Performed By: #### B MP #### [facility] [address] [place] [address] Dr. Raf Pearl Chloride [Moles/Vol] 99 mmol/L Normal 98-107 [facility] Comment on above: Performed By: #### B MP #### [facility] [address] [place] [address] Dr. Raf Pearl CO2 [Moles/Vol] 29.3 mmol/L Normal 21.0-32.0 [facility] Comment on above: Performed By: #### B MP #### [facility] [address] [address] [address] Raf Pearl Creatinine [Mass/Vol] 1.15 mg/dL Critically high 0.55-1.02 [facility] Comment on above: Performed By: #### B MP #### [facility] [address] [address] [address] Raf Pearl EGFR-AF ANDORRAN 57 mL/min/1.73m2 Critically low >=60 [facility] Comment on above: Performed By: #### B MP #### [facility] [address] [address] [address] Raf Pearl EGFR-NON AF ANDORRAN 47 mL/min/1.73m2 Critically low >=60 [facility] Comment on above: Performed By: #### B MP #### [facility] [address] [address] [address] Raf Pearl Glucose [Mass/Vol] 146 mg/dL Critically high 74-106 [facility] Comment on above: Performed By: #### B MP #### [facility] [address] [address] [address] Raf Pearl Potassium [Moles/Vol] 3.9 mmol/L Normal 3.5-5.1 [facility] Comment on above: Performed By: #### B MP #### [facility] [address] [address] [address] Raf Pearl Sodium [Moles/Vol] 137 mmol/L Normal 136-145 [facility] Comment on above: Performed By: #### B MP #### [facility] [address] [address] [address] Raf Pearl Urea nitrogen [Mass/Vol] 10.0 mg/dL Normal 7.0-18.0 [facility] Comment on above: Performed By: #### B MP #### [facility] [address] [address] [address] Raf Pearl Urea nitrogen/Creatinine [Mass ratio] 8.7 mg/mg Normal [facility] Comment on above: Performed By: #### B MP #### [facility] [address] [place] [address] Dr. Raf Pearl CBC AUTO DIFFon 01-22-2022 BASO # 0.1 103/ul Normal 0.0-0.1 [facility] Comment on above: Performed By: #### B MP #### [facility] [address] [place] [address] Dr. Raf Pearl Basophils/100 WBC (Bld) 1.5 % Normal 0.2-2.0 [facility] Comment on above: Performed By: #### B MP #### [facility] [address] [place] [address] Dr. Raf Pearl EO # 0.3 103/ul Normal 0.0-0.7 [facility] Comment on above: Performed By: #### B MP #### [facility] [address] [place] [address] Dr. Raf Pearl Eosinophils/100 WBC (Bld) 5.3 % Normal 0.9-7.0 [facility] Comment on above: Performed By: #### B MP #### [facility] [address] [place] [address] Dr. Raf Pearl Erythrocyte distribution width (RBC) [Ratio] 13.1 % Normal 11.0-15.0 [facility] Comment on above: Performed By: #### B MP #### [facility] [address] [place] [address] Dr. Raf Pearl Hematocrit (Bld) [Volume fraction] 36.4 % Normal 36.0-48.0 [facility] Comment on above: Performed By: #### B MP #### [facility] [address] [place] [address] Dr. Raf Pearl Hemoglobin (Bld) [Mass/Vol] 12.4 g/dL Normal 12.0-16.0 [facility] Comment on above: Performed By: #### B MP #### [facility] [address] [place] [address] Dr. Raf Pearl IG # 0.02 10e3/ul Normal 0.00-0.03 [facility] Comment on above: Performed By: #### B MP #### [facility] [address] [place] [address] Dr. Raf Pearl IG % 0.3 % Normal 0.0-0.5 [facility] Comment on above: Performed By: #### B MP #### [facility] [address] [address] [address] Raf Pearl LYMPH # 2.0 103/ul Normal 1.2-3.8 [facility] Comment on above: Performed By: #### B MP #### [facility] [address] [place] [address] Dr. Raf Pearl Lymphocytes/100 WBC (Bld) 31.6 % Normal 20.5-60.0 [facility] Comment on above: Performed By: #### B MP #### [facility] [address] [place] [address] Dr. Raf Pearl MANUAL DIFF REQ NO Normal [facility] Comment on above: Performed By: #### B MP #### [facility] [address] [place] [address] Dr. Raf Pearl MCH (RBC) [Entitic mass] 31.4 pg Normal 26.7-34.0 [facility] Comment on above: Performed By: #### B MP #### [facility] [address] [place] [address] Dr. Raf Pearl MCHC (RBC) [Mass/Vol] 34.1 g/dL Normal 29.9-35.2 [facility] Comment on above: Performed By: #### B MP #### [facility] [address] [place] [address] Dr. Raf Pearl MCV (RBC) [Entitic vol] 92.2 fL Normal 81.0-99.0 [facility] Comment on above: Performed By: #### B MP #### [facility] [address] [place] [address] Dr. Raf Pearl MONO # 0.4 103/ul Normal 0.3-0.8 [facility] Comment on above: Performed By: #### B MP #### [facility] [address] [place] [address] Dr. Raf Pearl Monocytes/100 WBC (Bld) 6.8 % Normal 1.7-12.0 [facility] Comment on above: Performed By: #### B MP #### [facility] [address] [place] [address] Dr. Raf Pearl NEUT # 3.4 103/ul Normal 1.4-6.5 [facility] Comment on above: Performed By: #### B MP #### [facility] [address] [place] [address] Dr. Raf Pearl Neutrophils/100 WBC (Bld) 54.5 % Normal 43.0-75.0 [facility] Comment on above: Performed By: #### B MP #### [facility] [address] [place] [address] Dr. Raf Pearl Platelet mean volume (Bld) [Entitic vol] 9.7 fL Normal 9.5-13.5 [facility] Comment on above: Performed By: #### B MP #### [facility] [address] [place] [address] Dr. Raf Pearl PLT 384 103/ul Normal 150-450 [facility] Comment on above: Performed By: #### B MP #### [facility] [address] [place] [address] Dr. Raf Pearl RBC 3.95 106/ul Critically low 4.20-5.40 [facility] Comment on above: Performed By: #### B MP #### [facility] [address] [place] [address] Dr. Raf Pearl WBC 6.2 103/ul Normal 4.0-11.0 [facility] Comment on above: Performed By: #### B MP #### [facility] [address] [place] [address] Dr. Raf Pearl GLYCOHEMOGLOBIN A1Con 2021 ADA RECOMMENDATION SEE BELOW Normal [facility] Comment on above: Result Comment: ADA RECOMMENDED LIMIT 4.0 - 6.0 ADA THERAPEUTIC TARGET < 7.0 ACTION SUGGESTED > 7.0 Performed By: #### A 1C #### [facility] [address] [place] [address] Dr. Raf Pearl Glucose [Mass/Vol] 137 mg/dL Normal [facility] Comment on above: Performed By: #### A 1C #### [facility] [address] [place] [address] Dr. Raf Pearl HbA1c (Bld) [Mass fraction] 6.4 % Critically high 4.5-6.2 [facility] Comment on above: Performed By: #### A 1C #### [facility] [address] [place] [address] Dr. Raf Pearl LIPID PROFILEon 01-22-2022 CHOL-HDL RATIO NORM SEE BELOW Normal [facility] Comment on above: Result Comment: 3.3 - 4.4 LOW RISK 4.4 - 7.1 AVERAGE RISK 7.1 - 11.0 MODERATE RISK >11.0 HIGH RISK Performed By: #### B MP #### [facility] [address] [place] [address] Dr. Raf Pearl Cholesterol [Mass/Vol] 165 mg/dL Normal <=200 [facility] Comment on above: Performed By: #### B MP #### [facility] [address] [place] [address] Dr. Raf Pearl Cholesterol in HDL [Mass/Vol] 66 mg/dL Critically high 40-60 [facility] Comment on above: Performed By: #### B MP #### [facility] [address] [place] [address] Dr. Raf Pearl Cholesterol in LDL [Mass/Vol] 87.8 mg/dL Normal [facility] Comment on above: Performed By: #### B MP #### [facility] [address] [place] [address] Dr. Raf Pearl Cholesterol.total/Ch olesterol in HDL [Mass ratio] 2.5 {ratio} Normal [facility] Comment on above: Performed By: #### B MP #### [facility] [address] [address] [address] Raf Pearl HDL NORMAL > or = 60 mg/dl - LOW CARDIOVASCULAR RISK <40 mg/dl - HIGH CARDIOVASCULAR RISK Normal [facility] Comment on above: Performed By: #### B MP #### [facility] [address] [address] [address] Raf Pearl LDL CALC NORMAL SEE BELOW Normal [facility] Comment on above: Result Comment: <100 mg/dl OPTIMAL 100 - 129 mg/dl NEAR OR ABOVE OPTIMAL 130 - 159 mg/dl BORDERLINE HIGH 160 - 189 mg/dl HIGH >190 mg/dl VERY HIGH Performed By: #### B MP #### [facility] [address] [address] [address] Raf Pearl Triglyceride [Mass/Vol] 56 mg/dL Normal <=150 [facility] Comment on above: Performed By: #### B MP #### [facility] [address] [place] [address] Dr. Raf Pearl VLDL CALC 11.2 mg/dL Normal [facility] Comment on above: Performed By: #### B MP #### [facility] [address] [address] [address] Raf Pearl PROF 14(COMP METB)on 022 Albumin [Mass/Vol] 4.0 g/dL Normal 3.4-5.0 [facility] Comment on above: Performed By: #### B MP #### [facility] [address] [place] [address] Dr. Raf Pearl Albumin/Globulin [Mass ratio] 1.1 {ratio} Normal [facility] Comment on above: Performed By: #### B MP #### [facility] [address] [address] [address] Raf Paerl ALP [Catalytic activity/Vol] 81 U/L Normal 46-116 [facility] Comment on above: Performed By: #### B MP #### [facility] [address] [place] [address] Dr. Raf Pearl ALT [Catalytic activity/Vol] 26 U/L Normal 14-59 [facility] Comment on above: Performed By: #### B MP #### [facility] [address] [address] [address] Raf Pearl Anion gap [Moles/Vol] 12.1 mmol/L Normal [facility] Comment on above: Performed By: #### B MP #### [facility] [address] [address] [address] Raf Pearl AST [Catalytic activity/Vol] 16 U/L Normal 15-37 [facility] Comment on above: Performed By: #### B MP #### [facility] [address] [address] [address] Raf Pearl Bilirubin [Mass/Vol] 0.3 mg/dL Normal 0.2-1.0 [facility] Comment on above: Performed By: #### B MP #### [facility] [address] [address] [address] Raf Pearl Calcium [Mass/Vol] 9.2 mg/dL Normal 8.5-10.1 [facility] Comment on above: Performed By: #### B MP #### [facility] [address] [address] [address] Raf Pearl Chloride [Moles/Vol] 103 mmol/L Normal 98-107 [facility] Comment on above: Performed By: #### B MP #### [facility] [address] [address] [address] Raf Pearl CO2 [Moles/Vol] 26.9 mmol/L Normal 21.0-32.0 [facility] Comment on above: Performed By: #### B MP #### [facility] [address] [address] [address] Raf Pearl Creatinine [Mass/Vol] 1.17 mg/dL Critically high 0.55-1.02 [facility] Comment on above: Performed By: #### B MP #### [facility] [address] [address] [address] Raf Pearl EGFR-AF ANDORRAN 56 mL/min/1.73m2 Critically low >=60 [facility] Comment on above: Performed By: #### B MP #### [facility] [address] [address] [address] Raf Pearl EGFR-NON AF ANDORRAN 46 mL/min/1.73m2 Critically low >=60 [facility] Comment on above: Performed By: #### B MP #### [facility] [address] [address] [address] Raf Pearl Globulin (S) [Mass/Vol] 3.6 g/dL Normal [facility] Comment on above: Performed By: #### B MP #### [facility] [address] [address] [address] Raf Pearl Glucose [Mass/Vol] 141 mg/dL Critically high 74-106 [facility] Comment on above: Performed By: #### B MP #### [facility] [address] [address] [address] Raf Pearl Potassium [Moles/Vol] 4.0 mmol/L Normal 3.5-5.1 [facility] Comment on above: Performed By: #### B MP #### [facility] [address] [address] [address] Raf Pearl Protein [Mass/Vol] 7.6 g/dL Normal 6.4-8.2 [facility] Comment on above: Performed By: #### B MP #### [facility] [address] [address] [address] Raf Pearl Sodium [Moles/Vol] 138 mmol/L Normal 136-145 [facility] Comment on above: Performed By: #### B MP #### [facility] [address] [address] [address] aRf Pearl Urea nitrogen [Mass/Vol] 19.0 mg/dL Critically high 7.0-18.0 [facility] Comment on above: Performed By: #### B MP #### [facility] [address] [address] [address] Raf Pearl Urea nitrogen/Creatinine [Mass ratio] 16.2 mg/mg Normal [facility] Comment on above: Performed By: #### B MP #### [facility] [address] [address] [address] Raf Pearl VIT B12 AND FOLATEon 022 Cobalamin (Vitamin B12) [Mass/Vol] 786.0 pg/mL Normal 193.0-986.0 [facility] Comment on above: Performed By: #### B 12FOL #### [facility] [address] [address] [address] Raf Pearl FOLATE 21.80 ng/mL Normal 8.60-58.90 [facility] Comment on above: Performed By: #### B 12FOL #### [facility] [address] [address] [address] Raf Pearl CERVICAL SPINE 2 OR 3 VWSon 11-02-2018 CERVICAL SPINE 2 OR 3 VWS [facility] Department of Radiology [address] [place] [id number] Patient Name: CRISELDA MORFIN : 1955 Sex: F Age: Race: White Pt. Location: Patient Status: D Ordered Date: 11/02/2018 9:20:00 AM Completed Date: 11/02/2018 09:29 AM Requesting Provider: MAHESH VELEZ Attending Provider: MAHESH VELEZ Report Copy To: Signs & Symptoms: M48.02 Spinal stenosis, cervical region I10 History: [place] Comments: , postop, eval hardware and alignment , Views (X-RAY, CERVICAL SPINE): AP, Lateral, Odontoid , postop, eval hardware and alignment , Views (X-RAY, CERVICAL SPINE): AP, Lateral, Odontoid , , , Ordering Provider - A ROSIE MSN KENNEL ATTENDANT , Exam: CERVICAL SPINE 2 OR 3 [...] (X-RAY, CERVICAL SPINE): AP, ...More In Sending rn medical inpatient services 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 Electronically signed by:Jeffrey Miles. Transcribed by: [email or web address], User Resident: ANTHONY SUNG Electronically Signed by: JEFFREY MILES @ 11/04/2018 04:42 PM I personally read this/these film(s) with this resident Normal [facility] Comment on above: Order Comment: , pos top, eval hardware and alignment , Views (X-RAY, CERVICAL SPINE): AP, Lateral, Odontoid , postop, eval hardware and alignment , Views (X-RAY, CERVICAL SPINE): AP, Lateral, Odontoid , , , Ordering Provider - A ROSIE MSN KENNEL ATTENDANT , POC GLUCOSE LABon 08-25-2018 Glucose [Mass/Vol] 208 mg/dL High 70-100 [facility] Comment on above: Performed By: #### 5 [id number], [id number] #### [facility] [address] [place] [address], [facility] Glucose [Mass/Vol] 98 mg/dL Normal 70-100 [facility] Comment on above: Performed By: #### 5 [id number], [id number] #### [facility] [address] [facility]. [address] BASIC METABOLIC PANELon 05-0 Calcium [Mass/Vol] 7.7 mg/dL Low 8.6-10.3 [facility] Comment on above: Order Comment: No: D o not add to previous draw Performed By: #### 5 0103 #### [facility] [address] [place] [address], [facility] Chloride [Moles/Vol] 109 mmol/L High 98-107 [facility] Comment on above: Order Comment: No: D o not add to previous draw Performed By: #### 5 0103 #### [facility] [address] [facility] [place] [address], [facility] CO2 [Moles/Vol] 24 mmol/L Normal 21-31 [facility] Comment on above: Order Comment: No: D o not add to previous draw Performed By: #### 5 0103 #### [facility] [address] [facility] [place] [place] [address], [facility] Creatinine [Mass/Vol] 0.89 mg/dL Normal 0.60-1.20 [facility] Comment on above: Order Comment: No: D o not add to previous draw Performed By: #### 5 0103 #### [facility] [address] [place] [address], [facility] GFR/1.73 sq M predicted among blacks MDRD (S/P/Bld) [Vol rate/Area] mL/min/{1.73_m2} Normal >60 [facility] Comment on above: Order Comment: No: D o not add to previous draw Performed By: #### 5 0103 #### [facility] [address] [place] [address], [facility] GFR/1.73 sq M predicted among non-blacks MDRD (S/P/Bld) [Vol rate/Area] mL/min/{1.73_m2} Normal >60 [facility] Comment on above: Order Comment: No: D o not add to previous draw Performed By: #### 5 0103 #### [facility] [address] [place] [address], [facility] Glucose [Mass/Vol] 94 mg/dL Normal 70-100 [facility] Comment on above: Order Comment: No: D o not add to previous draw Performed By: #### 5 0103 #### [facility] [address] [place] [address], [facility] Potassium [Moles/Vol] 3.3 mmol/L Low 3.5-5.1 [facility] Comment on above: Order Comment: No: D o not add to previous draw Performed By: #### 5 0103 #### [facility] [address] [place] [address], [facility] Sodium [Moles/Vol] 140 mmol/L Normal 136-145 [facility] Comment on above: Order Comment: No: D o not add to previous draw Performed By: #### 5 0103 #### [facility] [address] [place] [address], [facility] Urea nitrogen [Mass/Vol] 11 mg/dL Normal 7-25 [facility] Comment on above: Order Comment: No: D o not add to previous draw Performed By: #### 5 0103 #### [facility] [address] [place] [address], [place] CBC W/DIFFon 08-24-2018 ABS BASOPHILS 0.0 10*3/uL Normal 0.0-0.2 The [facility] Comment on above: Order Comment: No: D o not add to previous draw Performed By: #### 5 0103 #### [facility] [address] [place] [address], [facility] ABS IMM GRANS 0.1 10*3/uL Normal 0.0-0.2 The [facility] Comment on above: Order Comment: No: D o not add to previous draw Performed By: #### 5 0103 #### [facility] [address] [facility] [place] [address], [facility] ABS NEUTROPHILS 12.5 10*3/uL High 1.6-7.6 The [facility] Comment on above: Order Comment: No: D o not add to previous draw Performed By: #### 5 0103 #### [facility] [address] [place] [address], [facility] Basophils/100 WBC (Bld) 0.3 % Normal 0.0-1.0 The [facility] Comment on above: Order Comment: No: D o not add to previous draw Performed By: #### 5 0103 #### [facility] [address] [facility] [place] [address], [facility] Eosinophils (Bld) [#/Vol] 0.0 10*3/uL Normal 0.0-0.5 The [facility] Comment on above: Order Comment: No: D o not add to previous draw Performed By: #### 5 0103 #### [facility] [address] [facility]. [place] [id number], [facility] Eosinophils/100 WBC (Bld) 0.0 % Normal 0.0-6.0 The [facility] Comment on above: Order Comment: No: D o not add to previous draw Performed By: #### 5 0103 #### [facility] [address] [place] [address], [facility] Erythrocyte distribution width (RBC) [Ratio] 13.0 % Normal 11.5-15.0 The [facility] Comment on above: Order Comment: No: D o not add to previous draw Performed By: #### 5 0103 #### [facility] [address] [place] [address], [facility] Hematocrit (Bld) [Volume fraction] 31.7 % Low 36.0-45.0 The [facility] Comment on above: Order Comment: No: D o not add to previous draw Performed By: #### 5 0103 #### [facility] [address] [place] [address], [facility] Hemoglobin (Bld) [Mass/Vol] 10.3 g/dL Low 12.0-15.0 The [facility] Comment on above: Order Comment: No: D o not add to previous draw Performed By: #### 5 0103 #### [facility] [address] [facility] [place] [address], [facility] IMMATURE GRANS 0.5 % Normal 0.0-1.0 The [facility] Comment on above: Order Comment: No: D o not add to previous draw Performed By: #### 5 0103 #### [facility] [address] [facility] [place] [address], [facility] Lymphocytes (Bld) [#/Vol] 1.9 10*3/uL Normal 1.2-4.0 The [facility] Comment on above: Order Comment: No: D o not add to previous draw Performed By: #### 5 0103 #### [facility] [address] [facility] [place] [address], [facility] Lymphocytes/100 WBC (Bld) 11.9 % Low 20.0-45.0 The [facility] Comment on above: Order Comment: No: D o not add to previous draw Performed By: #### 5 0103 #### [facility] [address] [place] [address], [facility] MCH (RBC) [Entitic mass] 31.7 pg Normal 27.0-33.0 The [facility] Comment on above: Order Comment: No: D o not add to previous draw Performed By: #### 5 0103 #### [facility] [address] [place] [address], [facility] MCHC (RBC) [Mass/Vol] 32.5 g/dL Normal 32.0-35.0 The [facility] Comment on above: Order Comment: No: D o not add to previous draw Performed By: #### 5 0103 #### [facility] [address] [place] [address], [facility] MCV (RBC) [Entitic vol] 97.5 fL Normal 82.0-98.0 The [facility] Comment on above: Order Comment: No: D o not add to previous draw Performed By: #### 5 0103 #### [facility] [address] [place] [address], [facility] Monocytes (Bld) [#/Vol] 1.2 10*3/uL High 0.1-1.0 The [facility] Comment on above: Order Comment: No: D o not add to previous draw Performed By: #### 5 0103 #### [facility] [address] [facility] [place] [address], [facility] MONOS 7.7 % Normal 5.0-12.0 The [facility] Comment on above: Order Comment: No: D o not add to previous draw Performed By: #### 5 0103 #### [facility] [address] [place] [address], [facility] Neutrophils/100 WBC (Bld) 79.6 % High 40.0-72.0 The [facility] Comment on above: Order Comment: No: D o not add to previous draw Performed By: #### 5 0103 #### [facility] [address] [place] [id number], [facility] Nucleated RBC/100 WBC (Bld) [Ratio] 0 % Normal 0-0 The [facility] Comment on above: Order Comment: No: D o not add to previous draw Performed By: #### 5 0103 #### [facility] [address] [place] [id number], [facility] PLAT CNT 263 10*3/uL Normal 150-400 The [facility] Comment on above: Order Comment: No: D o not add to previous draw Performed By: #### 5 0103 #### [facility] [address] [place] [address], [facility] RBC (Bld) [#/Vol] 3.25 10*6/uL Low 3.80-5.00 [facility] Comment on above: Order Comment: No: D o not add to previous draw Performed By: #### 5 0103 #### [facility] [address] [place] [address], [facility] WBC (Bld) [#/Vol] 15.70 10*3/uL High 4.00-10.60 [facility] Comment on above: Order Comment: No: D o not add to previous draw Performed By: #### 5 0103 #### [facility] [address] [place] [id number], [facility] LIPID PROFILEon 08-24-2018 Cholesterol [Mass/Vol] 128 mg/dL Normal 120-200 The [facility] Comment on above: Order Comment: No: D o not add to previous draw Result Comment: CHOL ESTEROL REFERENCE RANGE: 20 YEARS AND OLDER CARDIOVASCULAR RISK Less than 200 mg/dl Low Risk 200 to 239 mg/dl Borderline Risk 240 mg/dl and greater High Risk Performed By: #### 5 0103 #### [facility] [address] [place] [address], [facility] Cholesterol in HDL [Mass/Vol] 49 mg/dL Normal 23-92 The [facility] Comment on above: Order Comment: No: D o not add to previous draw Result Comment: Slig ht variation in normal range could be due to gender and/or age. HDL CHOLESTEROL REFERENCE RANGE: 20 years and older Cardiovascular Risk > or =60 mg/dL Desirable 40 TO 59 mg/dL Low Risk <40 mg/dL High Risk Performed By: #### 5 0103 #### [facility] [address] [place] [address], [facility] Cholesterol in LDL [Mass/Vol] 65 mg/dL Normal 0-130 [facility] Comment on above: Order Comment: No: D o not add to previous draw Result Comment: LDL IS A CALCULATION LDL IS ONLY VALID IF THE TRIG IS LESS THAN 400. Performed By: #### 5 0103 #### [facility] [address] [place] [address], [facility] Cholesterol.total/Ch olesterol in HDL [Mass ratio] 2.6 {ratio} Normal .0-4.5 The [facility] Comment on above: Order Comment: No: D o not add to previous draw Performed By: #### 5 0103 #### [facility] [address] [place] [address], [facility] NON-HDL CHOLESTEROL 79 mg/dL Normal [facility] Comment on above: Order Comment: No: D o not add to previous draw Performed By: #### 5 0103 #### [facility] [address] [facility] [place] [address], [facility] Triglyceride [Mass/Vol] 69 mg/dL Normal 40-149 The [facility] Comment on above: Order Comment: No: D o not add to previous draw Result Comment: TRIG LYCERIDE REFERENCE RANGE: 20 YEARS AND OLDER CARDIOVASCULAR RISK LESS THAN 150 mg/dl LOW RISK 150 TO 199 mg/dl BORDERLINE RISK 200 mg/dl AND GREATER HIGH RISK Performed By: #### 5 0103 #### [facility] [address] [place] [address], [facility] VLDL CHOL 14 mg/dL Normal 0-40 [facility] Comment on above: Order Comment: No: D o not add to previous draw Performed By: #### 5 0103 #### [facility] [address] [place] [address], [place] POC GLUCOSE LABon 08-24-2018 Glucose [Mass/Vol] 162 mg/dL High 70-100 The [facility] Comment on above: Performed By: #### 5 6101, [id number] #### [facility] [address] [place] [address], [place] Glucose [Mass/Vol] 146 mg/dL High 70-100 The [facility] Comment on above: Performed By: #### 5 610, [id number] #### [facility] [address] [place] [address], [place] Glucose [Mass/Vol] 213 mg/dL High 70-100 The [facility] Comment on above: Performed By: #### 5 6101, [id number] #### [facility] [address] [place] [address], [place] Glucose [Mass/Vol] 81 mg/dL Normal 70-100 The [facility] Comment on above: Performed By: #### 5 6101, [id number] #### [facility] [address] [place] [address], [place] BASIC METABOLIC PANELon 05- Calcium [Mass/Vol] 8.4 mg/dL Low 8.6-10.3 The [facility] Comment on above: Order Comment: Yes: Add to Previous draw if able Performed By: #### 5 0103 #### [facility] [address] [place] [address], [place] Chloride [Moles/Vol] 103 mmol/L Normal 98-107 [facility] Comment on above: Order Comment: Yes: Add to Previous draw if able Performed By: #### 5 010 #### [facility] [address] [place] [address], [place] CO2 [Moles/Vol] 26 mmol/L Normal 21-31 The [facility] Comment on above: Order Comment: Yes: Add to Previous draw if able Performed By: #### 5 0103 #### [facility] [address] [place] [address], [place] Creatinine [Mass/Vol] 1.03 mg/dL Normal 0.60-1.20 [facility] Comment on above: Order Comment: Yes: Add to Previous draw if able Performed By: #### 5 0103 #### [facility] [address] [place] [address], [place] GFR/1.73 sq M predicted among blacks MDRD (S/P/Bld) [Vol rate/Area] mL/min/{1.73_m2} Normal >60 The [facility] Comment on above: Order Comment: Yes: Add to Previous draw if able Performed By: #### 5 0103 #### [facility] [address] [place] [address], [place] GFR/1.73 sq M predicted among non-blacks MDRD (S/P/Bld) [Vol rate/Area] 54 ml/min/1.73sq m Abnormal >60 The [facility] Comment on above: Order Comment: Yes: Add to Previous draw if able Performed By: #### 5 0103 #### [facility] [address] [place] [address], [place] Glucose [Mass/Vol] 209 mg/dL High 70-100 The [facility] Comment on above: Order Comment: Yes: Add to Previous draw if able Performed By: #### 5 0103 #### [facility] [address] [place] [address], [place] Potassium [Moles/Vol] 3.9 mmol/L Normal 3.5-5.1 The [facility] Comment on above: Order Comment: Yes: Add to Previous draw if able Performed By: #### 5 0103 #### [facility] [address] [place] [address], [place] Sodium [Moles/Vol] 135 mmol/L Low 136-145 [facility] Comment on above: Order Comment: Yes: Add to Previous draw if able Performed By: #### 5 3 #### [facility] [address] [place] [address], [facility] Urea nitrogen [Mass/Vol] 16 mg/dL Normal 7-25 The [facility] Comment on above: Order Comment: Yes: Add to Previous draw if able Performed By: #### 3 #### [facility] [address] CBC COMPLETE BLOOD COUNTon 0 08-23-2018 Erythrocyte distribution width (RBC) [Ratio] 12.8 % Normal 11.5-15.0 The [facility] Comment on above: Order Comment: Yes: Add to Previous draw if able Performed By: #### 5 102 #### [facility] [address] [place] [address], [facility] Hematocrit (Bld) [Volume fraction] 35.0 % Low 36.0-45.0 [facility] Comment on above: Order Comment: Yes: Add to Previous draw if able Performed By: #### 5 3 #### [facility] [address] [place] [address], [facility] Hemoglobin (Bld) [Mass/Vol] 11.2 g/dL Low 12.0-15.0 [facility] Comment on above: Order Comment: Yes: Add to Previous draw if able Performed By: #### 5 3 #### [facility] [address] [place] [address], [facility] MCH (RBC) [Entitic mass] 31.5 pg Normal 27.0-33.0 [facility] Comment on above: Order Comment: Yes: Add to Previous draw if able Performed By: #### 5 3 #### [facility] [address] [place] [address], [facility] MCHC (RBC) [Mass/Vol] 32.0 g/dL Normal 32.0-35.0 [facility] Comment on above: Order Comment: Yes: Add to Previous draw if able Performed By: #### 5 0103 #### [facility] [address] [place] [address], [facility] MCV (RBC) [Entitic vol] 98.3 fL High 82.0-98.0 [facility] Comment on above: Order Comment: Yes: Add to Previous draw if able Performed By: #### 5 0103 #### [facility] [address] [facility] [place] [address], [facility] Nucleated RBC/100 WBC (Bld) [Ratio] 0 % Normal 0-0 [facility] Comment on above: Order Comment: Yes: Add to Previous draw if able Performed By: #### 5 0103 #### [facility] [address] [place] [address], [facility] PLAT CNT 276 10*3/uL Normal 150-400 The [facility] Comment on above: Order Comment: Yes: Add to Previous draw if able Performed By: #### 5 0103 #### [facility] [address] [facility] [place] [address], [facility] RBC (Bld) [#/Vol] 3.56 10*6/uL Low 3.80-5.00 [facility] Comment on above: Order Comment: Yes: Add to Previous draw if able Performed By: #### 5 0103 #### [facility] [address] [facility] [place] [address], [facility] WBC (Bld) [#/Vol] 14.61 10*3/uL High 4.00-10.60 [facility] Comment on above: Order Comment: Yes: Add to Previous draw if able Performed By: #### 5 0103 #### [facility] [address] [facility] [place] [address], [facility] CERVICAL SPINE 2 OR 3 VWSon 08-23-2018 CERVICAL SPINE 2 OR 3 [facility] Department of Radiology [address] [place] [address] [id number] Patient Name: CRISELDA MORFIN : 1955 Sex: [...] C6. Electronically signed by:Xiomara Nath. Transcribed by: [email or web address], User Resident: Electronically Signed by: XIOMARA NATH @ 08/23/2018 04:07 PM Normal The [facility] Comment on above: Order Comment: C4-C5 , C5-C6 ANTERIOR CERVICAL DISCECTOMY WITH FUSION Operative Reporton 9 Operative Report MR#: [id number] [facility] Pt. Name: Criselda Morfin Room #: 0C Discharge Date: Birthdate: 1955 OPERATIVE REPORT DATE OF SURGERY: 08/23/2018 SURGEON: Demetris Askew M.D. 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 POSTOPERATIVE DIAGNOSIS: Herniated cervical disk and spinal stenosis from C4 through C6. EXTENSION SERVICE AGENT: ELIDIA Castle. ANESTHESIA: Endotracheal, Dr. Falcon. PROCEDURE: [...] size 8 at C5-6. The plate was [place], size 35 mm. The screws were 6, [...] Askew M.D. Date Trans: 08/23/2018 01:26 P/kari [id number] Normal [facility] POC GLUCOSE LABon 08-23-2018 Glucose [Mass/Vol] 157 mg/dL High 70-100 The [facility] Comment on above: Performed By: #### 5 0103 #### [facility] [address] Glucose [Mass/Vol] 190 mg/dL High 70-100 [facility] Comment on above: Performed By: #### 5 0103 #### [facility] [address] Glucose [Mass/Vol] 182 mg/dL High 70-100 [facility] Comment on above: Performed By: #### 5 0103 #### [facility] [address] [place] [address], [facility] Glucose [Mass/Vol] 94 mg/dL Normal 70-100 [facility] Comment on above: Performed By: #### 5 0103 #### [facility] [address] *MRSA/MSSA DNA NASALon 08-08 *MRSA/MSSA DNA NASAL Clinical Report: (D ) Specimen: NASAL SWAB Collected: 08/08/2018 15:04 Status: Final Last Updated: 08/08/2018 20:45 MSSA DNA (Final) Negative MRSA DNA (Final) Negative Normal [facility] Comment on above: Performed By: #### 3 1595 #### [facility] [address] *URINE CULTUREon 08-08-2018 Bacteria identified Cx [...] CEFAZOLIN (CZ) 2 Susceptible 4 Susceptible CEFTRIAXONE (TENTERER) <=0.5 Susceptible <=0.5 Susceptible CIPROFLOXACIN (CIP) <=0.5 Susceptible <=0.5 Susceptible GENTAMICIN (GM) 1 Susceptible 4 Susceptible MEROPENEM (MEM) <=0.125 Susceptible NITROFURANTOIN (FT) 32 Susceptible >64 Resistant PIP/TAZO (TZP) 4/4 Susceptible PIP/TAZO (TZP) <=2/4 Susceptible TOBRAMYCIN (TOB) 1 Susceptible 2 Susceptible TRIMETH/SULFA (SXT) <=0.5/9.5 Susceptible <=0.5/9.5 Susceptible Antibiotic Summary Grid: AMS AM AZM CZ TENTERER CIP GM MEM FT TZP TOB Citrobacter S R S S S S S S S S S amalonaticus complex Proteus mirabilis S S S S S S S R S S SXT Citrobacter S amalonaticus complex Proteus mirabilis S Normal [facility] Comment on above: Performed By: #### 3 0339 #### [facility] [address] APTTon 08-08-2018 aPTT Coag (Bld) [Time] 28.0 s Normal 25.0-35.0 [facility] Comment on above: Result Comment: ALL [...] THIS PURPOSE. Performed By: #### 5 6101, [id number] #### [facility] [address] BASIC METABOLIC PANELon - Calcium [Mass/Vol] 9.6 mg/dL Normal 8.6-10.3 [facility] Comment on above: Performed By: #### 0 0071 #### [facility] [address] [place] [address], [place] Chloride [Moles/Vol] 103 mmol/L Normal 98-107 [facility] Comment on above: Performed By: #### 0 0071 #### [facility] [address] [place] [address], [place] CO2 [Moles/Vol] 30 mmol/L Normal 21-31 [facility] Comment on above: Performed By: #### 0 0071 #### [facility] [address] [place] [address], [place] Creatinine [Mass/Vol] 1.07 mg/dL Normal 0.60-1.20 [facility] Comment on above: Performed By: #### 0 0071 #### [facility] [address] [place] [address], [place] GFR/1.73 sq M predicted among blacks MDRD (S/P/Bld) [Vol rate/Area] mL/min/{1.73_m2} Normal >60 [facility] Comment on above: Performed By: #### 0 0071 #### [facility] [address] [place] [address], [place] GFR/1.73 sq M predicted among non-blacks MDRD (S/P/Bld) [Vol rate/Area] 52 ml/min/1.73sq m Abnormal >60 [facility] Comment on above: Performed By: #### 0 0071 #### [facility] [address] [place] [address], [place] Glucose [Mass/Vol] 93 mg/dL Normal 70-100 [facility] Comment on above: Performed By: #### 0 0071 #### [facility] [address] [place] [address], [place] Potassium [Moles/Vol] 4.2 mmol/L Normal 3.5-5.1 [facility] Comment on above: Performed By: #### 0 0071 #### [facility] [address] Sodium [Moles/Vol] 139 mmol/L Normal 136-145 [facility] Comment on above: Performed By: #### 0 1 #### [facility] [address] Urea nitrogen [Mass/Vol] 18 mg/dL Normal 7-25 [facility] Comment on above: Performed By: #### 0 1 #### [facility] [address] CBC W/DIFFon 08-08-2018 ABS BASOPHILS 0.1 10*3/uL Normal 0.0-0.2 The [facility] Comment on above: Performed By: #### 5 102 #### [facility] [address] ABS IMM GRANS 0.0 10*3/uL Normal 0.0-0.2 The [facility] Comment on above: Performed By: #### 5 102 #### [facility] [address] ABS NEUTROPHILS 5.0 10*3/uL Normal 1.6-7.6 [facility] Comment on above: Performed By: #### 5 3 #### [facility] [address] Basophils/100 WBC (Bld) 0.9 % Normal 0.0-1.0 [facility] Comment on above: Performed By: #### 5 102 #### [facility] [address] Eosinophils (Bld) [#/Vol] 0.2 10*3/uL Normal 0.0-0.5 [facility] Comment on above: Performed By: #### 5 0103 #### [facility] [address] [place] [address], [facility] Eosinophils/100 WBC (Bld) 1.8 % Normal 0.0-6.0 [facility] Comment on above: Performed By: #### 102 #### [facility] [address] [place] [address], [facility] Erythrocyte distribution width (RBC) [Ratio] 13.1 % Normal 11.5-15.0 [facility] Comment on above: Performed By: #### 102 #### [facility] [address] [place] [address], [facility] Hematocrit (Bld) [Volume fraction] 37.2 % Normal 36.0-45.0 [facility] Comment on above: Performed By: #### 102 #### [facility] [address] [place] [address], [facility] Hemoglobin (Bld) [Mass/Vol] 12.3 g/dL Normal 12.0-15.0 [facility] Comment on above: Performed By: #### 102 #### [facility] [address] [place] [address], [facility] IMMATURE GRANS 0.5 % Normal 0.0-1.0 The [facility] Comment on above: Performed By: #### 3 #### [facility] [address] [place] [address], [facility] Lymphocytes (Bld) [#/Vol] 2.2 10*3/uL Normal 1.2-4.0 [facility] Comment on above: Performed By: #### 3 #### [facility] [address] [place] [address], [facility] Lymphocytes/100 WBC (Bld) 26.5 % Normal 20.0-45.0 [facility] Comment on above: Performed By: #### 102 #### [facility] [address] [facility] MCH (RBC) [Entitic mass] 31.4 pg Normal 27.0-33.0 [facility] Comment on above: Performed By: #### 5 0103 #### [facility] [address] [facility] [address] MCHC (RBC) [Mass/Vol] 33.1 g/dL Normal 32.0-35.0 [facility] Comment on above: Performed By: #### 5 0103 #### [facility] [address] [place] [address], [facility] MCV (RBC) [Entitic vol] 94.9 fL Normal 82.0-98.0 [facility] Comment on above: Performed By: #### 5 3 #### [facility] 3000 [facility]. [address] Monocytes (Bld) [#/Vol] 0.7 10*3/uL Normal 0.1-1.0 [facility] Comment on above: Performed By: #### 5 0103 #### [facility] 3000 [facility]. [address] MONOS 8.3 % Normal 5.0-12.0 [facility] Comment on above: Performed By: #### 5 0103 #### [facility] [address] [facility] Neutrophils/100 WBC (Bld) 62.0 % Normal 40.0-72.0 [facility] Comment on above: Performed By: #### 5 0103 #### [facility] [address] [place] [address], [facility] Nucleated RBC/100 WBC (Bld) [Ratio] 0 % Normal 0-0 [facility] Comment on above: Performed By: #### 5 0103 #### [facility] [address] PLAT CNT 325 10*3/uL Normal 150-400 [facility] Comment on above: Performed By: #### 5 0103 #### [facility] 3000 [facility] [place] [address], [facility] RBC (Bld) [#/Vol] 3.92 10*6/uL Normal 3.80-5.00 [facility] Comment on above: Performed By: #### 5 0103 #### [facility] [address] [place] [address], [facility] WBC (Bld) [#/Vol] 8.12 10*3/uL Normal 4.00-10.60 [facility] Comment on above: Performed By: #### 5 0103 #### [facility] [address] CERVICAL SPINE 4 OR 5 VIEWSo 08-08-2018 CERVICAL SPINE 4 OR 5 VIEWS [facility] Department of Radiology [address] [place] [address] [id number] Patient Name: CRISELDA MORFIN : 1955 Sex: F Age: Race: White Pt. Location: Patient Status: O Ordered Date: 08/08/2018 2:25:00 PM Completed Date: 08/08/2018 02:48 PM Requesting Provider: DEMETRIS AKSEW Attending Provider: DEMETRIS ASKEW Report Copy To: DEMETRIS ASKEW Signs & Symptoms: M48.02 Spinal stenosis, cervical region I10 History: [place] Comments: , POST OP XRAY AP/LAT ONLY [...] level Electronically signed by:Xiomara Nath. Transcribed by: [email or web address], User Resident: Electronically Signed by: XIOMARA NATH @ 08/08/2018 03:24 PM Normal [facility] Comment on above: Order Comment: , POS T OP XRAY AP/LAT ONLY , POST OP XRAY AP/LAT ONLY , , , Ordering Charlene ASKEW MD , HEMOGLOBIN A1Con 08-08-2018 HbA1c (Bld) [Mass fraction] 154 mg/dL High 70-126 [facility] Comment on above: Performed By: #### 4 [id number] #### [facility] 3000 [facility]. [address] HbA1c (Bld) [Mass fraction] 7.0 % High 4.0-6.0 [facility] Comment on above: Performed By: #### 4 6447 #### [facility] 3000 [facility]. [address] PROTHROMBIN TIMEon 9 INR Coag (PPP) [Relative time] 0.93 {INR} Normal 0.91-1.16 [facility] Comment on above: Result Comment: [...] CHEST 1995;108:[id number]-246S. Performed By: #### 5 6101, [id number] #### [facility] [address] [facility] [place] [address], [facility] PT Coag (PPP) [Time] 12.5 s Normal 12.3-14.8 [facility] Comment on above: Result Comment: ALL RESULTS MUST BE INTERPRETED WITH RESPECT TO BLOOD DRAWING ARTIFACT OR DILUTION ERROR OF ANTICOAGULANT AT THE TIME OF SAMPLING. Performed By: #### 5 6101, [id number] #### [facility] [address] [facility] TYPE AND CROSSMATCHon 2018 ABO INTERPRETATION O Normal [facility] Comment on above: Performed By: #### 6 2594 #### [facility] [address] [place] [address], [place] RH INTERPRETATION Positive Normal [facility] Comment on above: Performed By: #### 6 2594 #### [facility] [address] [place] [address], [place] URINALYSIS REFLEXon 08-09-19 19 Appearance (U) CLEAR Normal CLEAR The [facility] Comment on above: Performed By: #### 3 0965 #### [facility] [address] [place] [address], [place] Bilirubin [Mass/Vol] Negative Normal NEGATIVE [facility] Comment on above: Performed By: #### 3 0965 #### [facility] [address] [place] [address], [place] BLOOD Negative Normal NEGATIVE [facility] Comment on above: Performed By: #### 3 0965 #### [facility] [address] [place] [address], [place] Color (U) STRAW Abnormal YELLOW [facility] Comment on above: Performed By: #### 3 0965 #### [facility] [address] [place] [address], [place] EPIS NONE SEEN Normal FEW,OCC,NONE SEEN [facility] Comment on above: Performed By: #### 3 0965 #### [facility] [address] [place] [address], [place] Glucose [Mass/Vol] Negative Normal NEGATIVE [facility] Comment on above: Performed By: #### 3 0965 #### [facility] [address] [place] [address], [place] KETONE Negative Normal NEGATIVE [facility] Comment on above: Performed By: #### 3 0965 #### [facility] [address] [place] [address], [place] LEUK ALVARADO TRACE Abnormal NEGATIVE [facility] Comment on above: Performed By: #### 3 0965 #### [facility] [address] [place] [address], [place] Nitrite Ql (U) Negative Normal NEGATIVE The [facility] Comment on above: Performed By: #### 3 0965 #### [facility] [address] [place] [address], [place] pH (Bld) 6.0 Normal 5.0-8.0 [facility] Comment on above: Performed By: #### 3 0965 #### [facility] [address] [place] [address], [place] Protein (U) [Mass/Vol] Negative Normal NEGATIVE [facility] Comment on above: Performed By: #### 3 0965 #### [facility] [address] [place] [address], [place] RBC (U) [#/Vol] 0-2 Abnormal NONE SEEN The [facility] Comment on above: Performed By: #### 3 0965 #### [facility] [address] [place] [address], [place] SPEC GRAV 1.011 Low 1.015-1.020 [facility] Comment on above: Performed By: #### 3 0965 #### [facility] [address] [place] [address], [place] WBC UA 0-2 Abnormal NONE SEEN [facility] Comment on above: Performed By: #### 3 0965 #### [facility] [address] [place] [address], [place] Vital Signs Date Time Vital Sign Value Performing Clinician Facility 09-24-2022 08:10-0400 Body height 149.86 cm Rin Nicholson Other [facility] Other 09-24-2022 08:10-0400 Body mass index (BMI) [Ratio] 29.89 kg/m2 Rin Nicholson Other [facility] Other 09-24-2022 08:10-0400 Body temperature 98.6 [degF] Rin Nicholson Other [facility] Other 09-24-2022 08:10-0400 Body weight 67.13 kg Rin Nicholson Other [facility] Other 09-24-2022 08:10-0400 Diastolic blood pressure 84 mm[Hg] Rin Nicholson Other [facility] Other 09-24-2022 08:10-0400 Respiratory rate 18 /min Rin Nicholson Other [facility] Other 09-24-2022 08:10-0400 SaO2% (BldA) [Mass fraction] 97 % Rin Nicholson Other [facility] Other 09-24-2022 08:10-0400 Systolic blood pressure 126 mm[Hg] Rin Nicholson Other [facility] Other 08-09-2022 18:20-0400 Body height 149.86 cm Rin Nicholson Other [facility] Other 08-09-2022 18:20-0400 Body mass index (BMI) [Ratio] 29.89 kg/m2 Rin Nicholson Other [facility] Other 08-09-2022 18:20-0400 Body temperature 98.2 [degF] Rin Nicholson Other [facility] Other 08-09-2022 18:20-0400 Body weight 67.13 kg Rin Nicholson Other [facility] Other 08-09-2022 18:20-0400 Diastolic blood pressure 78 mm[Hg] Rin Nicholson Other [facility] Other 08-09-2022 18:20-0400 Respiratory rate 16 /min Rin Nicholson Other [facility] Other 08-09-2022 18:20-0400 SaO2% (BldA) [Mass fraction] 98 % Rin Nicholson Other [facility] Other 08-09-2022 18:20-0400 Systolic blood pressure 136 mm[Hg] Rin Nicholson Other [facility] Other 02-08-2022 18:00-0400 Body height 149.86 cm Rin Nicholson Other [facility] Other 02-08-2022 18:00-0400 Body mass index (BMI) [Ratio] 28.98 kg/m2 Rni Nicholson Other [facility] Other 02-08-2022 18:00-0400 Body temperature 98.1 [degF] Rin Nicholson Other [facility] Other 02-08-2022 18:00-0400 Body weight 65.09 kg Rin Nicholson Other [facility] Other 02-08-2022 18:00-0400 Diastolic blood pressure 80 mm[Hg] Rin Nicholson Other [facility] Other 02-08-2022 18:00-0400 Respiratory rate 16 /min Rin Nicholson Other [facility] Other 02-08-2022 18:00-0400 SaO2% (BldA) [Mass fraction] 99 % Rin Nicholson Other [facility] Other 02-08-2022 18:00-0400 Systolic blood pressure 136 mm[Hg] Rin Nicholson Other [facility] Other Encounters Encounter Date Encounter Type Care Provider Facility Start: 05-16-2023 End: 05-16-2023 ambulatory Rin Nicholson Other [facility] Other Start: 05-16-2023 Telephone encounter Rin Nicholson [facility] [place] Start: 05-03-2023 End: 05-03-2023 ambulatory Rin Nicholson Facility:[facility] Start: 05-03-2023 Encounter by compute r link Rin Nicholson [facility] [place] Start: 05-03-2023 End: 05-03-2023 ambulatory DO Rin Nicholson Work Phone: [facility] Work Phone: Start: 05-03-2023 End: 05-03-2023 Patient encounter procedure DO Rin Nicholson Work Phone: [facility] Work Phone: Start: 04-12-2023 End: 04-12-2023 ambulatory Rin Nicholson Other [facility] Other Start: 04-12-2023 Telephone encounter Rin Nicholson [facility] [place] Start: 04-04-2023 End: 04-04-2023 ambulatory Rin Nicholson Other [facility] Other Start: 04-04-2023 Telephone encounter Rin Nicholson [facility] [place] Start: 03-21-2023 End: 03-21-2023 ambulatory Rin Nicholson Other [facility] Other Start: 03-21-2023 Telephone encounter Rin Nicholson [facility] [place] Start: 02-23-2023 End: 02-23-2023 ambulatory Rin Nciholson Other [facility] Other Start: 02-23-2023 Telephone encounter Rin Nicholson [facility] [place] Start: 09-24-2022 End: 09-24-2022 ambulatory Rin Nicholson Other [facility] Other Start: 09-24-2022 Office outpatient vi sit 15 minutes iRn Nicholson [facility] [place] Start: 08-30-2022 End: 08-31-[address] RIN NICHOLSON Facility:[facility] Start: 08-17-2022 End: 08-17-2022 ambulatory Rin Nicholson Other [facility] Other Start: 08-17-2022 Telephone encounter Rin Nicholson [facility] [place] Start: 08-16-2022 End: 08-17-[address] RIN NICHOLSON Facility:[facility] Start: 08-09-2022 End: 08-09-2022 ambulatory Rin Nicholson Other [facility] Other Start: 08-09-2022 Office outpatient vi sit 25 minutes Rin Nicholson [facility] [place] Start: 08-06-2022 End: 08-06-2022 ambulatory Rin Nicholson Other [facility] Other Start: 08-06-2022 Telephone encounter Rin Nicholson [facility] [place] Start: 07-31-2022 End: 08-01-[address] RIN NICHOLSON Facility:[facility] Start: 06-04-2022 End: 06-04-2022 ambulatory Rin Nicholson Other [facility] Other Start: 06-04-2022 Telephone encounter Rin Nicholson [facility] [place] Start: 05-24-2022 End: 05-24-2022 ambulatory Rin Nicholson Other [facility] Other Start: 05-24-2022 Telephone encounter Rin Nicholson [facility] [place] Start: 05-14-2022 End: 05-14-2022 ambulatory Rin Nicholson Other [facility] Other Start: 05-14-2022 Telephone encounter Rin Nicholson [facility] [place] Start: 04-30-2022 End: 04-30-[address] BETTINA MULLIGAN . Facility:[facility] Start: 04-22-2022 End: 04-22-2022 ambulatory Rin Nicholson Other [facility] Other Start: 04-22-2022 Telephone encounter Rin Nicholson [facility] [place] Start: 03-29-2022 End: 03-29-2022 ambulatory Rin Nicholson Other [facility] Other Start: 03-29-2022 Telephone encounter Rin Nicholson [facility] [place] Start: 03-27-2022 End: 03-28-[address] RIN NICHOLSON Facility:[facility] Start: 02-08-2022 End: 02-08-2022 ambulatory Rin Nicholson Other [facility] Other Start: 02-08-2022 Office outpatient vi sit 25 minutes Rin Nicholson [facility] [place] Start: 01-22-2022 End: 01-23-[address] RIN NICHOLSON Facility:[facility] Start: 08-23-2018 End: 08-25-2018 Evaluation and management of inpatient PROVIDER UNKNOWN Facility:[facility] Start: 05-11-2018 Patient encounter procedure Selin [...] above: Performed By: #### 6 [id number] #### [facility] [address] Immunizations Immunization Date Immunization Notes Care Provider Fa hunter 04-26-2023 Prevnar 20 Rin Nicholson Other [facility] Other 04-08-2023 COVID-19 Moderna (SPIKEVAX) Rin Nicholson Other [facility] Other 04-08-2023 zoster vaccine recombinant Rin Nicholson Other [facility] Other 03-22-2023 Flu Shot - Documentation Purposes Only Rin Nicholson Other [facility] Other 02-08-2022 Shingrix 50 MCG/0.5M L; 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: [Shingrix 50 MCG/0.5ML] Rin Nicholson Other [facility] Other 01-15-2022 influenza, seasonal, injectable Rin Nicholson Other [facility] Other 01-15-2022 COVID-19 Pfizer (bivalent) Rin Nicholson Other [facility] Other 07-31-2021 COVID-19 Vaccine Moderna - Documentation Purposes Only Rin Nicholson Other [facility] Other 02-20-2021 COVID-19 Vaccine Moderna - Documentation Purposes Only Rin Nicholson Other [facility] Other 07-26-2020 COVID-19 Brittany Romero n Other [facility] Other 06-28-2020 COVID-19 Brittany Romero n Other [facility] Other 02-18-2020 influenza, seasonal, injectable Rin Kesslerbaljit Other [facility] Other 02-19-2017 influenza, seasonal, injectable Rin Lyn Other [facility] Other 03-08-2016 influenza, seasonal, injectable Rin Kesslerbaljit Other [facility] Other 05-07-2013 influenza virus vaccine, split virus (incl. purified surface antigen) Rin Nicholson Other [facility] Other 03-24-2012 influenza, seasonal, injectable, preservative free Rin Nicholson Other [facility] Other Payers Date Payer Category Payer Self-pay [id number] 2023 Unknown [id number] 2022 Medicare [id number] 2.1 [id number] 1959 Unknown [id number] 1955 Unknown [id number] 2.16. [id number] 1955 Unknown [id number] 2.16. [id number] 1955 Unknown [id number] 2.16. [id number] 1955 Unknown [id number] 2.16. [id number] 1955 Unknown [id number] 2.16.8 [id number] 1955 Unknown [id number] 2.16.84 [id number] 1955 Unknown [id number] 2.16.84 [id number] 1955 Unknown [id number] 2.16.84 [id number] 1955 Unknown [id number] 2.16.84 [id number] 1955 Unknown [id number] 2.16.84 [id number] 1955 Unknown [id number] 2.16.84 [id number] Unknown [id number] Unknown [id number] 2.16.8 [id number] Social History Date Type Detail Facility Unknown if ever smoked [facility] Other Sex Assigned At Sex Assigned At Bir th [facility] Other Start: 1955 Sex Assigned At Female F [facility] Start: 06-02-2020 Tobacco smoking status NHIS Never smoked tobacco (finding) [facility] Medical Equipment Procedure Code Equipment Code Equipment Origin al Text Equipment Identifier Dates One Touch Lancet s lancets Start: 12-24-2011 Clinical Notes 02-11-2019 to 05-03-2023 Note Date & Type Note Facility 05-03-2023 Evaluation note Encounter Date Diagnosis Assessment Notes Apr, GERD (gastroesop hageal reflux disease) (ICD-10 - K21.9) [facility] Other 2023 Evaluation note* Encounter Date Diagnosis Assessment Notes Treatment Notes Treatment Clinical Notes Mar, Abnormal blood chemistry (ICD-10 - R79.9) Mar, Hypercalcemia (ICD-1 0 - E83.52) Mar, Stage 3a chronic kidney disease (ICD-10 - N18.31) [facility] Other 06-09-2023 Evaluation note* Encounter Date Diagnosis [...] see where her kidney studies are at. [facility] Other 04-24-2023 Evaluation note* Encounter Date Diagnosis [...] results. 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 [facility] Other 01-05-2023 Evaluation note* Encounter Date Diagnosis Assessment Notes Treatment Notes Treatment Clinical Notes Apr, Hypertension (ICD-10 - I10) [facility] Other 10-24-2022 Evaluation note* Encounter Date Diagnosis [...] this. She does agree to see an aegis operations specialist. A referral is provided. Her [...] her wi th an order for a ShinMy[employer]wall vaccine [facility] Other 02-01-2021 History general Narrative - Reported* Type Description Date Medical History Stress Test; [facility], normal per patient Medical History Pap and Pelvic 3 yea rs ago, OBGYN in [place] Medical History Mammogram over 5 yea rs; Normal at that time per patient Medical History CT Abdomen and Pelvi s over 5 years ago; [facility] Medical History Colonoscopy 8 years ago; in [place], normal in patient Medical History Chest X-Ray 12-15-11; normal, [facility] Medical History Echocardiogram; 12-15; [facility] Medical History Cardiolite Stress Te st 12-16-11; [facility] Medical History Check's sugar's bid Medical History Heart Catherization; [facility] Medical History breast cancer 04/2014 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, status post lumpectomy x2, sentinel lymph node biopsy and adjuvant radiotherapy that concluded on 08-21-14 Medical History 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 - Dr French from [facility] Surgical History Tonsillectomy age 21 Surgical History ovarian tumor removed and left ovary Surgical History complete hysterectomy 1993 Surgical History Heart Catherization; [facility] Surgical History Right Shoulder Tear and bone spur removal; [facility] 07-27-12 Surgical History Left Shoulder Rotato [...] for a kidney stone Surgical History mammogram [facility] 04/2017 Surgical History vertabrae fusion 08/2018 Hospitalization History ovarian tumor removed an d left overy Hospitalization History complete hysterectomy 19 94 [facility] Other 01-19-2021 History general Narrative - Reported* Type Description Date Medical History Stress Test; [facility], normal per patient Medical History Pap and Pelvic 3 yea rs ago, OBGYN in [place] Medical History Mammogram over 5 yea rs; Normal at that time per patient Medical History CT Abdomen and Pelvi s over 5 years ago; [facility] Medical History Colonoscopy 8 years ago; in [place], normal in patient Medical History Chest X-Ray 12-15-11; normal, [facility] Medical History Echocardiogram; 12-15; [facility] Medical History Cardiolite Stress Te st 12-16-11; [facility] Medical History Check's sugar's bid Medical History Heart Catherization; [facility] Medical History breast cancer 04/2014 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, status post lumpectomy x2, sentinel lymph node biopsy and adjuvant radiotherapy that concluded on 08-21-14 Medical History 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 - Dr French from [facility] Surgical History Tonsillectomy age 21 Surgical History ovarian tumor removed and left ovary Surgical History complete hysterectomy 1993 Surgical History Heart Catherization; [facility] Surgical History Right Shoulder Tear and bone spur removal; [facility] 07-27-12 Surgical History Left Shoulder Rotato [...] for a kidney stone Surgical History mammogram [facility] 04/2017 Surgical History vertabrae fusion 08/2018 Hospitalization History ovarian tumor removed an d left overy Hospitalization History complete hysterectomy 19 94 [facility] Other 12-27-2020 History general Narrative - Reported* Type Description Date Medical History Stress Test; [facility], normal per patient Medical History Pap and Pelvic 3 yea rs ago, OBGYN in [place] Medical History Mammogram over 5 yea rs; Normal at that time per patient Medical History CT Abdomen and Pelvi s over 5 years ago; [facility] Medical History Colonoscopy 8 years ago; in [place], normal in patient Medical History Chest X-Ray 12-15-11; normal, [facility] Medical History Echocardiogram; 12-15; [facility] Medical History Cardiolite Stress Te st 12-16-11; [facility] Medical History Check's sugar's bid Medical History Heart Catherization; [facility] Medical History breast cancer 04/2014 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..] for a kidney stone Surgical History mammogram [facility] 04/2017 Surgical History vertabrae fusion 08/2018 Hospitalization History ovarian tumor removed an d left overy Hospitalization History complete hysterectomy 19 94 [facility] Other 12-20-2020 History general Narrative - Reported* Type Description Date Medical History Stress Test; [facility], normal per patient Medical History Pap and Pelvic 3 yea rs ago, OBGYN in [place] Medical History Mammogram over 5 yea rs; Normal at that time per patient Medical History CT Abdomen and Pelvi s over 5 years ago; [facility] Medical History Colonoscopy 8 years ago; in [place], normal in patient Medical History Chest X-Ray 12-15-11; normal, [facility] Medical History Echocardiogram; 12-15; [facility] Medical History Cardiolite Stress Te st 12-16-11; [facility] Medical History Check's sugar's bid Medical History Heart Catherization; [facility] Medical History breast cancer 04/2014 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..] for a kidney stone Surgical History mammogram [facility] 04/2017 Surgical History vertabrae fusion 08/2018 Hospitalization History ovarian tumor removed an d left overy Hospitalization History complete hysterectomy [facility] Other 12-04-2020 History general Narrative - Reported* Type Description Date Medical History Stress Test; [facility], normal per patient Medical History Pap and Pelvic 3 yea rs ago, OBGYN in [place] Medical History Mammogram over 5 yea rs; Normal at that time per patient Medical History CT Abdomen and Pelvi s over 5 years ago; [facility] Medical History Colonoscopy 8 years ago; in [place], normal in patient Medical History Chest X-Ray 12-15-11; normal, [facility] Medical History Echocardiogram; 12-15; [facility] Medical History Cardiolite Stress Te st 12-16-11; [facility] Medical History Check's sugar's bid Medical History Heart Catherization; [facility] Medical History breast cancer 04/2014 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, status post lumpectomy x2, sentinel lymph node biopsy and adjuvant radiotherapy that concluded on 08-21-14 Medical History 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 - Dr French from [facility] Surgical History Tonsillectomy age 21 Surgical History ovarian tumor removed and left ovary Surgical History complete hysterectomy 1993 Surgical History Heart Catherization; [facility] Surgical History Right Shoulder Tear and bone spur removal; [facility] 07-27-12 Surgical History Left Shoulder Rotato [...] for a kidney stone Surgical History mammogram [facility] 04/2017 Surgical History vertabrae fusion 08/2018 Hospitalization History ovarian tumor removed an d left overy Hospitalization History complete hysterectomy [facility] Other 11-08-2020 History general Narrative - Reported* Type Description Date Medical History Stress Test; [facility], normal per patient Medical History Pap and Pelvic 3 yea rs ago, OBGYN in [place] Medical History Mammogram over 5 yea rs; Normal at that time per patient Medical History CT Abdomen and Pelvi s over 5 years ago; [facility] Medical History Colonoscopy 8 years ago; in [place], normal in patient Medical History Chest X-Ray 12-15-11; normal, [facility] Medical History Echocardiogram; 12-15; [facility] Medical History Cardiolite Stress Te st 12-16-11; [facility] Medical History Check's sugar's bid Medical History Heart Catherization; [facility] Medical History breast cancer 04/2014 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..] for a kidney stone Surgical History mammogram [facility] 04/2017 Surgical History vertabrae fusion 08/2018 Hospitalization History ovarian tumor removed an d left overy Hospitalization History complete hysterectomy [facility] Other 06-20-2020 History general Narrative - Reported* Type Description Date Medical History Stress Test; [facility], normal per patient Medical History Pap and Pelvic 3 yea rs ago, OBGYN in [place] Medical History Mammogram over 5 yea rs; Normal at that time per patient Medical History CT Abdomen and Pelvi s over 5 years ago; [facility] Medical History Colonoscopy 8 years ago; in [place], normal in patient Medical History Chest X-Ray 12-15-11; normal, [facility] Medical History Echocardiogram; 12-15; [facility] Medical History Cardiolite Stress Te st 12-16-11; [facility] Medical History Check's sugar's bid Medical History Heart Catherization; [facility] Medical History breast cancer 04/2014 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..] for a kidney stone Surgical History mammogram [facility] 04/2017 Surgical History vertabrae fusion 08/2018 Hospitalization History ovarian tumor removed an d left overy Hospitalization History complete hysterectomy 19 94 [facility] Other 05-03-2020 History general Narrative - Reported* Type Description Date Medical History Stress Test; [facility], normal per patient Medical History Pap and Pelvic 3 yea rs ago, OBGYN in [place] Medical History Mammogram over 5 yea rs; Normal at that time per patient Medical History CT Abdomen and Pelvi s over 5 years ago; [facility] Medical History Colonoscopy 8 years ago; in [place], normal in patient Medical History Chest X-Ray 12-15-11; normal, [facility] Medical History Echocardiogram; 12-15; [facility] Medical History Cardiolite Stress Te st 12-16-11; [facility] Medical History Check's sugar's bid Medical History Heart Catherization; [facility] Medical History breast cancer 04/2014 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..] for a kidney stone Surgical History mammogram [facility] 04/2017 Surgical History vertabrae fusion 08/2018 Hospitalization History ovarian tumor removed an d left overy Hospitalization History complete hysterectomy 19 94 [facility] Other 04-26-2020 History general Narrative - Reported* Type Description Date Medical History Stress Test; [facility], normal per patient Medical History Pap and Pelvic 3 yea rs ago, OBGYN in [place] Medical History Mammogram over 5 yea rs; Normal at that time per patient Medical History CT Abdomen and Pelvi s over 5 years ago; [facility] Medical History Colonoscopy 8 years ago; in [place], normal in patient Medical History Chest X-Ray 12-15-11; normal, [facility] Medical History Echocardiogram; 12-15; [facility] Medical History Cardiolite Stress Te st 12-16-11; [facility] Medical History Check's sugar's bid Medical History Heart Catherization; [facility] Medical History breast cancer 04/2014 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, status post lumpectomy x2, sentinel lymph node biopsy and adjuvant radiotherapy that concluded on 08-21-14 Medical History 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 - Dr French from [facility] Surgical History Tonsillectomy age 21 Surgical History ovarian tumor removed and left ovary Surgical History complete hysterectomy 1993 Surgical History Heart Catherization; [facility] Surgical History Right Shoulder Tear and bone spur removal; [facility] 07-27-12 Surgical History Left Shoulder Rotato [...] for a kidney stone Surgical History mammogram [facility] 04/2017 Surgical History vertabrae fusion 08/2018 Hospitalization History ovarian tumor removed an d left overy Hospitalization History complete hysterectomy 19 94 [facility] Other 04-21-2020 History general Narrative - Reported* Type Description Date Medical History Stress Test; [facility], normal per patient Medical History Pap and Pelvic 3 yea rs ago, OBGYN in [place] Medical History Mammogram over 5 yea rs; Normal at that time per patient Medical History CT Abdomen and Pelvi s over 5 years ago; [facility] Medical History Colonoscopy 8 years ago; in [place], normal in patient Medical History Chest X-Ray 12-15-11; normal, [facility] Medical History Echocardiogram; 12-15; [facility] Medical History Cardiolite Stress Te st 12-16-11; [facility] Medical History Check's sugar's bid Medical History Heart Catherization; [facility] Medical History breast cancer 04/2014 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, status post lumpectomy x2, sentinel lymph node biopsy and adjuvant radiotherapy that concluded on 08-21-14 Medical History 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 - Dr French from [facility] Surgical History Tonsillectomy age 21 Surgical History ovarian tumor removed and left ovary Surgical History complete hysterectomy 1993 Surgical History Heart Catherization; [facility] Surgical History Right Shoulder Tear and bone spur removal; [facility] 07-27-12 Surgical History Left Shoulder Rotato [...] for a kidney stone Surgical History mammogram [facility] 04/2017 Surgical History vertabrae fusion 08/2018 Hospitalization History ovarian tumor removed an d left overy Hospitalization History complete hysterectomy 19 94 [facility] Other 03-12-2020 History general Narrative - Reported* Type Description Date Medical History Stress Test; [facility], normal per patient Medical History Pap and Pelvic 3 yea rs ago, OBGYN in [place] Medical History Mammogram over 5 yea rs; Normal at that time per patient Medical History CT Abdomen and Pelvi s over 5 years ago; [facility] Medical History Colonoscopy 8 years ago; in [place], normal in patient Medical History Chest X-Ray 12-15-11; normal, [facility] Medical History Echocardiogram; 12-15; [facility] Medical History Cardiolite Stress Te st 12-16-11; [facility] Medical History Check's sugar's bid Medical History Heart Catherization; [facility] Medical History breast cancer 04/2014 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, status post lumpectomy x2, sentinel lymph node biopsy and adjuvant radiotherapy that concluded on 08-21-14 Medical History 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 - Dr French from [facility] Surgical History Tonsillectomy age 21 Surgical History ovarian tumor removed and left ovary Surgical History complete hysterectomy 1993 Surgical History Heart Catherization; [facility] Surgical History Right Shoulder Tear and bone spur removal; [facility] 07-27-12 Surgical History Left Shoulder Rotato [...] for a kidney stone Surgical History mammogram [facility] 04/2017 Surgical History vertabrae fusion 08/2018 Hospitalization History ovarian tumor removed an d left overy Hospitalization History complete hysterectomy 19 94 [facility] Other 03-07-2020 History general Narrative - Reported* Type Description Date Medical History Stress Test; [facility], normal per patient Medical History Pap and Pelvic 3 yea rs ago, OBGYN in [place] Medical History Mammogram over 5 yea rs; Normal at that time per patient Medical History CT Abdomen and Pelvi s over 5 years ago; [facility] Medical History Colonoscopy 8 years ago; in [place], normal in patient Medical History Chest X-Ray 12-15-11; normal, [facility] Medical History Echocardiogram; 12-15; [facility] Medical History Cardiolite Stress Te st 12-16-11; [facility] Medical History Check's sugar's bid Medical History Heart Catherization; [facility] Medical History breast cancer 04/2014 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, status post lumpectomy x2, sentinel lymph node biopsy and adjuvant radiotherapy that concluded on 08-21-14 Medical History 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 - Dr French from [facility] Surgical History Tonsillectomy age 21 Surgical History ovarian tumor removed and left ovary Surgical History complete hysterectomy 1993 Surgical History Heart Catherization; [facility] Surgical History Right Shoulder Tear and bone spur removal; [facility] 07-27-12 Surgical History Left Shoulder Rotato [...] for a kidney stone Surgical History mammogram [facility] 04/2017 Surgical History vertabrae fusion 08/2018 Hospitalization History ovarian tumor removed an d left overy Hospitalization History complete hysterectomy 19 94 [facility] Other 03-04-2020 History general Narrative - Reported* Type Description Date Medical History Stress Test; [facility], normal per patient Medical History Pap and Pelvic 3 yea rs ago, OBGYN in [place] Medical History Mammogram over 5 yea rs; Normal at that time per patient Medical History CT Abdomen and Pelvi s over 5 years ago; [facility] Medical History Colonoscopy 8 years ago; in [place], normal in patient Medical History Chest X-Ray 12-15-11; normal, [facility] Medical History Echocardiogram; 12-15; [facility] Medical History Cardiolite Stress Te st 12-16-11; [facility] Medical History Check's sugar's bid Medical History Heart Catherization; [facility] Medical History breast cancer 04/2014 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..] for a kidney stone Surgical History mammogram [facility] 04/2017 Surgical History vertabrae fusion 08/2018 Hospitalization History ovarian tumor removed an d left overy Hospitalization History complete hysterectomy 19 94 [facility] Other 02-22-2020 History general Narrative - Reported* Type Description Date Medical History Stress Test; [facility], normal per patient Medical History Pap and Pelvic 3 yea rs ago, OBGYN in [place] Medical History Mammogram over 5 yea rs; Normal at that time per patient Medical History CT Abdomen and Pelvi s over 5 years ago; [facility] Medical History Colonoscopy 8 years ago; in [place], normal in patient Medical History Chest X-Ray 12-15-11; normal, [facility] Medical History Echocardiogram; 12-15; [facility] Medical History Cardiolite Stress Te st 12-16-11; [facility] Medical History Check's sugar's bid Medical History Heart Catherization; [facility] Medical History breast cancer 04/2014 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, status post lumpectomy x2, sentinel lymph node biopsy and adjuvant radiotherapy that concluded on 08-21-14 Medical History 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 - Dr French from [facility] Surgical History Tonsillectomy age 21 Surgical History ovarian tumor removed and left ovary Surgical History complete hysterectomy 1993 Surgical History Heart Catherization; [facility] Surgical History Right Shoulder Tear and bone spur removal; [facility] 07-27-12 Surgical History Left Shoulder Rotato [...] for a kidney stone Surgical History mammogram [facility] 04/2017 Surgical History vertabrae fusion 08/2018 Hospitalization History ovarian tumor removed an d left overy Hospitalization History complete hysterectomy [facility] Other 02-12-2020 History general Narrative - Reported* Type Description Date Medical History Stress Test; [facility], normal per patient Medical History Pap and Pelvic 3 yea rs ago, OBGYN in [place] Medical History Mammogram over 5 yea rs; Normal at that time per patient Medical History CT Abdomen and Pelvi s over 5 years ago; [facility] Medical History Colonoscopy 8 years ago; in [place], normal in patient Medical History Chest X-Ray 12-15-11; normal, [facility] Medical History Echocardiogram; 12-15; [facility] Medical History Cardiolite Stress Te st 12-16-11; [facility] Medical History Check's sugar's bid Medical History Heart Catherization; [facility] Medical History breast cancer 04/2014 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..] for a kidney stone Surgical History mammogram [facility] 04/2017 Surgical History vertabrae fusion 08/2018 Hospitalization History ovarian tumor removed an d left overy Hospitalization History complete hysterectomy [facility] Other 10-27-2019 History general Narrative - Reported* Type Description Date Medical History Stress Test; [facility], normal per patient Medical History Pap and Pelvic 3 yea rs ago, OBGYN in [place] Medical History Mammogram over 5 yea rs; Normal at that time per patient Medical History CT Abdomen and Pelvi s over 5 years ago; [facility] Medical History Colonoscopy 8 years ago; in [place], normal in patient Medical History Chest X-Ray 12-15-11; normal, [facility] Medical History Echocardiogram; 12-15; [facility] Medical History Cardiolite Stress Te st 12-16-11; [facility] Medical History Check's sugar's bid Medical History Heart Catherization; [facility] Medical History breast cancer 04/2014 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..] for a kidney stone Surgical History mammogram [facility] 04/2017 Surgical History vertabrae fusion 08/2018 Hospitalization History ovarian tumor removed an d left overy Hospitalization History complete hysterectomy 94 [facility] Other Evaluation noteNo InformationNort LRN Other Evaluation noteNo assessment information available [facility] Work Phone: Reason for referral (narrative)* Reason appt pt needs cons ult w/ Dr. Cornejo or Viki for evaluation of right shoulder pain Diagnosis 1 Shoulder pain, right (M25.511) Referral Organization [facility] Referring Provider First Name Rin Referring Provider Last Name Lyn Referring Provider Specialty Family Prac meenu Referred Organization [facility] Referred Address ,[place], [place],[address] Referred Provider Specialty Orthopedic S urgery Referral Priority Routine General Notes HoracioFlorinda 02/08/2022 05:31:28 PM > [facility] referral form hard faxed with visit note, med list and insurance card. pt understands she will be contacted to schedule this appt. [facility] Other Summary Purpose Family History Relationship Condition Age at Onset Recorded Date/T rob father Pulmonary emphysema Unknown Not Specified Cerebrovascular accident (CVA) Unknown Advance Directives Advance Directive Response Recorded Date/ Time Advance Directives No February 15, 2017 3:18pm Hospital Course Note MR#: [id number] I [facility] Pt. Name: Criselda Morfin Admitted: 08/23/2018 [...] CREATED AUTHOR AUTHOR'S ORGANIZ ATION 12/09/2018 [facility] DATE CREATED AUTHOR AUTHOR'S ORGANIZ ATION 08/31/2022 [facility] DATE CREATED AUTHOR AUTHOR'S ORGANIZ ATION 05/07/2023 [facility] REASON FOR VISIT (unrecogniz ed section [...] BE BASED ON THE PRIMARY CLINICAL RECORDS. [employer] provides no warranty or guarantee of the accuracy or completeness of information in this document.
== END 2024-01-30 07:02 | disposition home or self-care (01) ==
LOC: US 07:02
PROVIDERS: PCP Family Medicine; Visit Provider Family Medicine
DX: R10.9 Unspecified abdominal pain (principal); K76.9 Liver disease, unspecified
CPT/HCPCS: 76705

== ENCOUNTER 2024-02-09 07:48 | Outpatient (OUT) | payer OTHER, SELFPAY ==
--- NOTE | 2024-02-09 07:51 | US_ITS ---
The [address] [address] Patient Name: JIMMIE MORFIN MRN: [id number] date: 1955 Sex: F Assigned Patient Location: Current Patient Location: Accession/Order Number: [id number] Exam Date: 02/09/2024 07:55 Report Date: 02/12/2024 06:09 At the request of: ELLIOTT QUIROGA Procedure: US renal BI EXAMINATION: US renal BI HISTORY: Hypertensive Renal Disease, Stage 3b Chronic Kidney Disease COMPARISON: No relevant comparison available. TECHNIQUE: Ultrasound examination was performed of the kidneys and urinary bladder. FINDINGS: RIGHT KIDNEY: No evidence of pelvocaliectasis, mass, or calculi. Slightly increased echogenicity. Color Doppler demonstrates blood flow within the kidney. Moderate cortical thinning, 0.7 cm in thickness. Kidney: 7.7 x 5.0 x 5.3 cm LEFT KIDNEY: Contains a nonobstructing 4 mm stone within inferior pole. Slightly increased echogenicity. Color Doppler demonstrates blood flow within the kidney. Moderate cortical thinning, 0.6 cm in thickness. Kidney: BLADDER: No visible wall thickening, mass, or calculi. US/US renal BI IMPRESSION: 1. Thinning of the renal cortex bilaterally and slight increased echogenicity compatible with chronic kidney disease. 2. No obstructive uropathy or appreciable mass. 3. Nonobstructing left nephrolithiasis. Electronically authenticated by: ARELY BRO Date: 02/12/2024 06:09
--- OUTSIDE RECORDS SUMMARY | 2024-02-09 07:56 | XMS_ITS | CCD ---
Author Organization [facility] Care Team Providers Care Computer Processing Scheduler Name Role Phone Selin Jean Attending Unavailable Ted, Selin Pastor Attending Unavailable CHUCHO HONEYCUTT Attending Unavailable Ted, Selin Pastor Attending Unavailable UNKNOWN, PROVIDER Admitting Unavailable SELF, REFERRED Referring Unavailable SELF, REFERRED Primary Care Unavailable CHIP CEDILLO Attending Unavailable [place] Procedure Practitioner Unavailab le UNKNOWN, PROVIDER Surgeon [...] Care Provider DO Rin Nicholson Attending Provider [phone] Rin Nicholson Attending Unavailable Lyn, Rin Primary [...] 1 tablet by mouth once daily Vitamin [id number] Acid Active 1 TAB PO Daily May [...] kidney disease Other aftercare (1 source) Other long-term (current) drug therapy; 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: [OTH SKILLED NURSING CURRENT DRUG THERAPY] Onset: 05-03-2022 Episodic Other aftercare (1 source) 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; 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: [SKILLED NURSING USE ORAL HYPOGLYCEMIC DX] Onset: 05-03-2022 Episodic Pneumonia (except that caused by tuberculosis or sexually transmitted disease) (1 source) Bronchopneumonia, unspecified organism; 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: [BRONCHOPNEUMONIA UNS ORGANISM] Onset: 05-03-2022 Episodic Unclassified (1 source) COUGH, UNSPECIFIED; 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: [COUGH, UNSPECIFIED] Onset: 04-30-2022 Results Test Name Value Interpretation Reference Range Facility MM screening mammo BI w/CADo n 05-03-2023 MM screening mammo BI w/CAD [facility] [place] [address] [place] [address] Mammography Report Signed Patient: Leslee Morfin MR#: [id number] : 1955 Acct:[id number] Age/Sex: 67 / F ADM Date: 05/03/23 Loc: [place] Room: Type: [facility] [address] Attending Dr: Rin Nicholson DO Copies to: [...] Carmela Cuevas M.D.05/03/2023 1:52 PM Dictation Location: [facility] Transcribed By: [facility] 05/03/23 1352 Dictated By: Carmela Cuevas MD 05/03/23 1349 Signed By: 05/03/23 1352 [facility] PROF CHEM 8 (BAS METB)on Anion gap [Moles/Vol] 14.4 mmol/L Normal [facility] Comment on above: Performed By: #### B MP #### [facility] [address] [place] [address] Dr. Raf Pearl Calcium [Mass/Vol] 9.3 mg/dL Normal 8.5-10.1 [facility] Comment on above: Performed By: #### B MP #### [facility] [address] [address] [address] Raf Pearl Chloride [Moles/Vol] 102 mmol/L Normal 98-107 [facility] Comment on above: Performed By: #### B MP #### [facility] [address] [address] [address] Raf Pearl CO2 [Moles/Vol] 26.9 mmol/L Normal 21.0-32.0 [facility] Comment on above: Performed By: #### B MP #### [facility] [address] [address] [address] Raf Pearl Creatinine [Mass/Vol] 1.32 mg/dL Critically high 0.55-1.02 [facility] Comment on above: Performed By: #### B MP #### [facility] [address] [place] [address] Dr. Raf Pearl EGFR-AF NORWEGIAN 49 mL/min/1.73m2 Critically low >=60 [facility] Comment on above: Performed By: #### B MP #### [facility] [address] [place] [address] Dr. Raf Pearl EGFR-NON AF NORWEGIAN 40 mL/min/1.73m2 Critically low >=60 [facility] Comment on above: Performed By: #### B MP #### [facility] [address] [address] [address] Raf Pearl Glucose [Mass/Vol] 151 mg/dL Critically high 74-106 [facility] Comment on above: Performed By: #### B MP #### [facility] [address] [address] [address] Raf Pearl Potassium [Moles/Vol] 4.3 mmol/L Normal 3.5-5.1 [facility] Comment on above: Performed By: #### B MP #### [facility] [address] [address] [address] Raf Pearl Sodium [Moles/Vol] 139 mmol/L Normal 136-145 [facility] Comment on above: Performed By: #### B MP #### [facility] [address] [address] [address] Raf Pearl Urea nitrogen [Mass/Vol] 17.0 mg/dL Normal 7.0-18.0 [facility] Comment on above: Performed By: #### B MP #### [facility] [address] [address] [address] Raf Pearl Urea nitrogen/Creatinine [Mass ratio] 12.9 mg/mg Normal [facility] Comment on above: Performed By: #### B MP #### [facility] [address] [address] [address] Raf Pearl PROF CHEM 8 (BAS METB)on Anion gap [Moles/Vol] 9.7 mmol/L Normal [facility] Comment on above: Performed By: #### B MP #### [facility] [address] [address] [address] Raf Pearl Calcium [Mass/Vol] 9.1 mg/dL Normal 8.5-10.1 [facility] Comment on above: Performed By: #### B MP #### [facility] [address] [address] [address] Raf Pearl Chloride [Moles/Vol] 100 mmol/L Normal 98-107 [facility] Comment on above: Performed By: #### B MP #### [facility] [address] [address] [address] Raf Pearl CO2 [Moles/Vol] 28.0 mmol/L Normal 21.0-32.0 [facility] Comment on above: Performed By: #### B MP #### [facility] [address] [address] [address] Raf Pearl Creatinine [Mass/Vol] 1.18 mg/dL Critically high 0.55-1.02 [facility] Comment on above: Performed By: #### B MP #### [facility] [address] [place] [address] Dr. Raf Pearl EGFR-AF NORWEGIAN 56 mL/min/1.73m2 Critically low >=60 [facility] Comment on above: Performed By: #### B MP #### [facility] [address] [place] [address] Dr. Raf Pearl EGFR-NON AF NORWEGIAN 46 mL/min/1.73m2 Critically low >=60 [facility] Comment on above: Performed By: #### B MP #### [facility] [address] [place] [address] Dr. Raf Pearl Glucose [Mass/Vol] 113 mg/dL Critically high 74-106 [facility] Comment on above: Performed By: #### B MP #### [facility] [address] [address] [address] Raf Pearl Potassium [Moles/Vol] 3.7 mmol/L Normal 3.5-5.1 [facility] Comment on above: Performed By: #### B MP #### [facility] [address] [place] [address] Dr. Raf Pearl Sodium [Moles/Vol] 134 mmol/L Critically low 136-145 [facility] Comment on above: Performed By: #### B MP #### [facility] [address] [place] [address] Dr. Raf Pearl Urea nitrogen [Mass/Vol] 13.0 mg/dL Normal 7.0-18.0 [facility] Comment on above: Performed By: #### B MP #### [facility] [address] [place] [address] Dr. Raf Pearl Urea nitrogen/Creatinine [Mass ratio] 11.0 mg/mg Normal [facility] Comment on above: Performed By: #### B MP #### [facility] [address] [place] [address] Dr. Raf Pearl FOLATE ([facility])on 3 Folate >20.0 Normal >3.0 [facility] Comment on above: Result Comment: A se rum folate concentration of less than 3.1 ng/mL is considered to represent clinical deficiency. Performed By: #### F OLALC #### [facility] [address] [place] [address] Dr. Raf Pearl CBC AUTO DIFFon 07-31-2022 BASO # 0.1 103/ul Normal 0.0-0.1 [facility] Comment on above: Performed By: #### M ALBR #### [facility] [address] [place] [address] Dr. Raf Pearl Basophils/100 WBC (Bld) 1.3 % Normal 0.2-2.0 [facility] Comment on above: Performed By: #### M ALBR #### [facility] [address] [place] [address] Dr. Raf Pearl EO # 0.4 103/ul Normal 0.0-0.7 [facility] Comment on above: Performed By: #### M ALBR #### [facility] [address] [place] [address] Dr. Raf Pearl Eosinophils/100 WBC (Bld) 4.5 % Normal 0.9-7.0 [facility] Comment on above: Performed By: #### M ALBR #### [facility] [address] [place] [address] Dr. Raf Pearl Erythrocyte distribution width (RBC) [Ratio] 13.2 % Normal 11.0-15.0 [facility] Comment on above: Performed By: #### M ALBR #### [facility] [address] [place] [address] Dr. Raf Pearl Hematocrit (Bld) [Volume fraction] 33.8 % Critically low 36.0-48.0 [facility] Comment on above: Performed By: #### M ALBR #### [facility] [address] [place] [address] Dr. Raf Pearl Hemoglobin (Bld) [Mass/Vol] 11.5 g/dL Critically low 12.0-16.0 [facility] Comment on above: Performed By: #### M ALBR #### [facility] [address] [place] [address] Dr. Raf Pearl IG # 0.02 10e3/ul Normal 0.00-0.03 [facility] Comment on above: Performed By: #### M ALBR #### [facility] [address] [place] [address] Dr. Raf Pearl IG % 0.2 % Normal 0.0-0.5 [facility] Comment on above: Performed By: #### M ALBR #### [facility] [address] [place] [address] Dr. Raf Pearl LYMPH # 2.6 103/ul Normal 1.2-3.8 [facility] Comment on above: Performed By: #### M ALBR #### [facility] [address] [place] [address] Dr. Raf Pearl Lymphocytes/100 WBC (Bld) 31.6 % Normal 20.5-60.0 [facility] Comment on above: Performed By: #### M ALBR #### [facility] [address] [place] [address] Dr. Raf Pearl MANUAL DIFF REQ NO Normal [facility] Comment on above: Performed By: #### M ALBR #### [facility] [address] [place] [address] Dr. Raf Pearl MCH (RBC) [Entitic mass] 31.1 pg Normal 26.7-34.0 [facility] Comment on above: Performed By: #### M ALBR #### [facility] [address] [address] [address] Raf Pearl MCHC (RBC) [Mass/Vol] 34.0 g/dL Normal 29.9-35.2 [facility] Comment on above: Performed By: #### M ALBR #### [facility] [address] [place] [address] Dr. Raf Pearl MCV (RBC) [Entitic vol] 91.4 fL Normal 81.0-99.0 [facility] Comment on above: Performed By: #### M ALBR #### [facility] [address] [place] [address] Dr. Raf Pearl MONO # 0.6 103/ul Normal 0.3-0.8 [facility] Comment on above: Performed By: #### M ALBR #### [facility] [address] [place] [address] Dr. Raf Pearl Monocytes/100 WBC (Bld) 7.2 % Normal 1.7-12.0 [facility] Comment on above: Performed By: #### M ALBR #### [facility] [address] [place] [address] Dr. Raf Pearl NEUT # 4.6 103/ul Normal 1.4-6.5 [facility] Comment on above: Performed By: #### M ALBR #### [facility] [address] [place] [address] Dr. Raf Pearl Neutrophils/100 WBC (Bld) 55.2 % Normal 43.0-75.0 [facility] Comment on above: Performed By: #### M ALBR #### [facility] [address] [place] [address] Dr. Raf Pearl Platelet mean volume (Bld) [Entitic vol] 10.0 fL Normal 9.5-13.5 [facility] Comment on above: Performed By: #### M ALBR #### [facility] [address] [place] [address] Dr. Raf Pearl PLT 352 103/ul Normal 150-450 [facility] Comment on above: Performed By: #### M ALBR #### [facility] [address] [address] [address] Raf Pearl RBC 3.70 106/ul Critically low 4.20-5.40 [facility] Comment on above: Performed By: #### M ALBR #### [facility] [address] [address] [address] Raf Pearl WBC 8.2 103/ul Normal 4.0-11.0 [facility] Comment on above: Performed By: #### M ALBR #### [facility] [address] [address] [address] Raf Pearl CULTURE URINEon 07-31-2022 CULTURE URINE Culture Observations: NO GROWTH. Normal [facility] Comment on above: Performed By: #### B MP #### [facility] [address] [place] [address] Dr. Raf Pearl GLYCOHEMOGLOBIN A1Con 2022 ADA RECOMMENDATION SEE BELOW Normal [facility] Comment on above: Result Comment: ADA RECOMMENDED LIMIT 4.0 - 6.0 ADA THERAPEUTIC TARGET < 7.0 ACTION SUGGESTED > 7.0 Performed By: #### B MP #### [facility] [address] [place] [address] Dr. Raf Pearl Glucose [Mass/Vol] 140 mg/dL Normal [facility] Comment on above: Performed By: #### B MP #### [facility] [address] [place] [address] Dr. Raf Pearl HbA1c (Bld) [Mass fraction] 6.5 % Critically high 4.5-6.2 [facility] Comment on above: Performed By: #### B MP #### [facility] [address] [place] [address] Dr. Raf Pearl LIPID PROFILEon 07-31-2022 CHOL-HDL RATIO NORM SEE BELOW Normal [facility] Comment on above: Result Comment: 3.3 - 4.4 LOW RISK 4.4 - 7.1 AVERAGE RISK 7.1 - 11.0 MODERATE RISK >11.0 HIGH RISK Performed By: #### C MP, LIPID, TSH #### [facility] [address] [address] [address] Raf Pearl Cholesterol [Mass/Vol] 166 mg/dL Normal <=200 [facility] Comment on above: Performed By: #### C MP, LIPID, TSH #### [facility] [address] [address] [address] Raf Pearl Cholesterol in HDL [Mass/Vol] 57 mg/dL Normal 40-60 [facility] Comment on above: Performed By: #### C MP, LIPID, TSH #### [facility] [address] [address] [address] Raf Pearl Cholesterol in LDL [Mass/Vol] 91.4 mg/dL Normal [facility] Comment on above: Performed By: #### C MP, LIPID, TSH #### [facility] [address] [address] [address] Raf Pearl Cholesterol.total/Ch olesterol in HDL [Mass ratio] 2.9 {ratio} Normal [facility] Comment on above: Performed By: #### C MP, LIPID, TSH #### [facility] [address] [address] [address] Raf Pearl HDL NORMAL > or = 60 mg/dl - LOW CARDIOVASCULAR RISK <40 mg/dl - HIGH CARDIOVASCULAR RISK Normal [facility] Comment on above: Performed By: #### C MP, LIPID, TSH #### [facility] [address] [address] [address] Raf Pearl LDL CALC NORMAL SEE BELOW Normal [facility] Comment on above: Result Comment: <100 mg/dl OPTIMAL 100 - 129 mg/dl NEAR OR ABOVE OPTIMAL 130 - 159 mg/dl BORDERLINE HIGH 160 - 189 mg/dl HIGH >190 mg/dl VERY HIGH Performed By: #### C MP, LIPID, TSH #### [facility] [address] [address] [address] Raf Pearl Triglyceride [Mass/Vol] 88 mg/dL Normal <=150 [facility] Comment on above: Performed By: #### C MP, LIPID, TSH #### [facility] [address] [address] [address] Raf Pearl VLDL CALC 17.6 mg/dL Normal [facility] Comment on above: Performed By: #### C MP, LIPID, TSH #### [facility] [address] [place] [address] Dr. Raf Pearl MICROALBUMIN, RAND URon 07-17 mALB <1.3 Normal <=30.0 [facility] Comment on above: Performed By: #### M ALBR #### [facility] [address] [address] [address] Raf Pearl PROF 14(COMP METB)on 023 Albumin [Mass/Vol] 3.6 g/dL Normal 3.4-5.0 [facility] Comment on above: Performed By: #### C MP, LIPID, TSH #### [facility] [address] [place] [address] Dr. Raf Pearl Albumin/Globulin [Mass ratio] 1.0 {ratio} Normal [facility] Comment on above: Performed By: #### C MP, LIPID, TSH #### [facility] [address] [place] [address] Dr. Raf Pearl ALP [Catalytic activity/Vol] 70 U/L Normal 46-116 [facility] Comment on above: Performed By: #### C MP, LIPID, TSH #### [facility] [address] [place] [address] Dr. Raf Pearl ALT [Catalytic activity/Vol] 22 U/L Normal 14-59 [facility] Comment on above: Performed By: #### C MP, LIPID, TSH #### [facility] [address] [place] [address] Dr. Raf Pearl Anion gap [Moles/Vol] 11.8 mmol/L Normal [facility] Comment on above: Performed By: #### C MP, LIPID, TSH #### [facility] [address] [place] [address] Dr. Raf Pearl AST [Catalytic activity/Vol] 19 U/L Normal 15-37 [facility] Comment on above: Performed By: #### C MP, LIPID, TSH #### [facility] [address] [address] [address] Raf Pearl Bilirubin [Mass/Vol] 0.3 mg/dL Normal 0.2-1.0 [facility] Comment on above: Performed By: #### C MP, LIPID, TSH #### [facility] [address] [address] [address] Raf Pearl Calcium [Mass/Vol] 9.0 mg/dL Normal 8.5-10.1 [facility] Comment on above: Performed By: #### C MP, LIPID, TSH #### [facility] [address] [address] [address] Raf Pearl Chloride [Moles/Vol] 104 mmol/L Normal 98-107 [facility] Comment on above: Performed By: #### C MP, LIPID, TSH #### [facility] [address] [place] [address] Dr. Raf Pearl CO2 [Moles/Vol] 28.6 mmol/L Normal 21.0-32.0 [facility] Comment on above: Performed By: #### C MP, LIPID, TSH #### [facility] [address] [address] [address] Raf Pearl Creatinine [Mass/Vol] 1.48 mg/dL Critically high 0.55-1.02 [facility] Comment on above: Performed By: #### C MP, LIPID, TSH #### [facility] [address] [address] [address] Raf Pearl EGFR-AF NORWEGIAN 43 mL/min/1.73m2 Critically low >=60 [facility] Comment on above: Performed By: #### C MP, LIPID, TSH #### [facility] [address] [address] [address] Raf Pearl EGFR-NON AF NORWEGIAN 35 mL/min/1.73m2 Critically low >=60 [facility] Comment on above: Performed By: #### C MP, LIPID, TSH #### [facility] [address] [address] [address] Raf Pearl Globulin (S) [Mass/Vol] 3.5 g/dL Normal [facility] Comment on above: Performed By: #### C MP, LIPID, TSH #### [facility] [address] [address] [address] Raf Pearl Glucose [Mass/Vol] 102 mg/dL Normal 74-106 [facility] Comment on above: Performed By: #### C MP, LIPID, TSH #### [facility] [address] [place] [address] Dr. Raf Pearl Potassium [Moles/Vol] 4.4 mmol/L Normal 3.5-5.1 [facility] Comment on above: Performed By: #### C MP, LIPID, TSH #### [facility] [address] [place] [address] Dr. Raf Pearl Protein [Mass/Vol] 7.1 g/dL Normal 6.4-8.2 [facility] Comment on above: Performed By: #### C MP, LIPID, TSH #### [facility] [address] [place] [address] Dr. Raf Pearl Sodium [Moles/Vol] 140 mmol/L Normal 136-145 [facility] Comment on above: Performed By: #### C MP, LIPID, TSH #### [facility] [address] [place] [address] Dr. Raf Pearl Urea nitrogen [Mass/Vol] 21.0 mg/dL Critically high 7.0-18.0 [facility] Comment on above: Performed By: #### C MP, LIPID, TSH #### [facility] [address] [place] [address] Dr. Raf Pearl Urea nitrogen/Creatinine [Mass ratio] 14.2 mg/mg Normal [facility] Comment on above: Performed By: #### C MP, LIPID, TSH #### [facility] [address] [place] [address] Dr. Raf Pearl TSHon 07-31-2022 TSH 2.298 uIU/mL Normal 0.358-3.740 [facility] Comment on above: Performed By: #### C MP, LIPID, TSH #### [facility] [address] [place] [address] Dr. Raf Pearl UA RANDOM W/MICROSCOPICon BACTERIA NONE SEEN Normal NONE SEEN [facility] Comment on above: Performed By: #### B MP #### [facility] [address] [place] [address] Dr. Raf Pearl Bilirubin Ql (U) Negative Normal NEGATIVE [facility] Comment on above: Performed By: #### B MP #### [facility] [address] [place] [address] Dr. Raf Pearl CAST NONE SEEN Normal NONE SEEN [facility] Comment on above: Performed By: #### B MP #### [facility] [address] [place] [address] Dr. Raf Pearl Clarity (U) CLEAR Normal CLEAR [facility] Comment on above: Performed By: #### B MP #### [facility] [address] [place] [address] Dr. Raf Pearl Color (U) LT. YELLOW Normal YELLOW [facility] Comment on above: Performed By: #### B MP #### [facility] [address] [place] [address] Dr. Raf Pearl Crystals LM Nom (Urine sed) NONE SEEN Normal NONE SEEN [facility] Comment on above: Performed By: #### B MP #### [facility] [address] [place] [address] Dr. Raf Pearl Epithelial cells LM Ql (Urine sed) NONE SEEN Normal NONE SEEN /RARE [facility] Comment on above: Performed By: #### B MP #### [facility] [address] [place] [address] Dr. Raf Pearl Glucose Ql (U) Negative Normal NEGATIVE [facility] Comment on above: Performed By: #### B MP #### [facility] [address] [place] [address] Dr. Raf Pearl Hemoglobin Ql (U) Negative Normal NEGATIVE [facility] Comment on above: Performed By: #### B MP #### [facility] [address] [place] [address] Dr. Raf Pearl Ketones Ql (U) Negative Normal NEGATIVE [facility] Comment on above: Performed By: #### B MP #### [facility] [address] [place] [address] Dr. Raf Pearl LEUKOCYTES Negative Normal NEGATIVE [facility] Comment on above: Performed By: #### B MP #### [facility] [address] [place] [address] Dr. Raf Pearl MUCOUS NONE SEEN Normal NONE SEEN [facility] Comment on above: Performed By: #### B MP #### [facility] [address] [place] [address] Dr. Raf Pearl Nitrite Ql (U) Negative Normal NEGATIVE [facility] Comment on above: Performed By: #### B MP #### [facility] [address] [place] [address] Dr. Raf Pearl pH (U) 7.0 [pH] Normal 5-9 [facility] Comment on above: Performed By: #### B MP #### [facility] [address] [place] [address] Dr. Raf Pearl RBC 0-2 Normal 0-2 [facility] Comment on above: Performed By: #### B MP #### [facility] [address] [place] [address] Dr. Raf Pearl SPEC GRAVITY <=1.005 Abnormal 1.005-<=1.025 [facility] Comment on above: Performed By: #### B MP #### [facility] [address] [place] [address] Dr. Raf Pearl UA PROTEIN Negative Normal NEGATIVE/ TRACE [facility] Comment on above: Performed By: #### B MP #### [facility] [address] [place] [address] Dr. Raf Pearl Urobilinogen Qn (U) 0.2 {Tawana'U}/dL Normal 0.2 - 1. 0 [facility] Comment on above: Performed By: #### B MP #### [facility] [address] [place] [address] Dr. Raf Pearl WBC NONE SEEN Normal NONE SEEN [facility] Comment on above: Performed By: #### B MP #### [facility] [address] [address] [address] Raf Pearl VITAMIN B12on 07-31-2022 Cobalamin (Vitamin B12) [Mass/Vol] 600.0 pg/mL Normal 193.0-986.0 [facility] Comment on above: Performed By: #### B MP #### [facility] [address] [address] [address] Raf Pearl Covid-19 PCR ([facility])on 04-18 SARS-CoV-2 (COVID-19) RNA KHANH+probe Ql (Unsp spec) Not detected Normal NOT DETECTED [facility] Comment on above: Result Comment: When [...] for this test is supported by the [place] of [employer] and [employer] Service's declaration that [...] used). Performed By: #### C VDTBH #### [facility] [address] [place] [address] Dr. Raf Pearl INFLUENZA A AND B AGon 04-30 INFLUANEGH SEE BELOW Normal [facility] Comment on above: Result Comment: Nega tive for Flu A protein angiten. Infection due to Flu A cannot be ruled out. Flu A angiten in the sample may be below the detection limit of the test. Performed By: #### B MP #### [facility] [facility] [address] [address] [address] Raf Pearl INFLUBNEGH SEE BELOW Normal [facility] Comment on above: Result Comment: Nega tive for Flu B protein antigen. Infection due to Flu B cannot be ruled out. Flu B antigen in the sample may be below the detection limit of the test. Performed By: #### B MP #### [facility] [address] [place] [address] Dr. Raf Pearl INFLUENZA A AG Negative Normal NEGATIVE SEE COMMENT [facility] Comment on above: Performed By: #### B MP #### [facility] [address] [place] [address] Dr. Raf Pearl INFLUENZA B AG Negative Normal NEGATIVE SEE COMMENT [facility] Comment on above: Performed By: #### B MP #### [facility] [address] [place] [address] Dr. Raf Pearl XR CHEST 2 Von [...] BUDDY LEMOS Date: 2022-04-30 19:38 Normal [facility] PROF CHEM 8 (BAS METB)on Anion gap [Moles/Vol] 12.6 mmol/L Normal [facility] Comment on above: Performed By: #### B MP #### [facility] [address] [place] [address] Dr. Raf Pearl Calcium [Mass/Vol] 9.4 mg/dL Normal 8.5-10.1 [facility] Comment on above: Performed By: #### B MP #### [facility] [address] [place] [address] Dr. Raf Pearl Chloride [Moles/Vol] 99 mmol/L Normal 98-107 [facility] Comment on above: Performed By: #### B MP #### [facility] [address] [place] [address] Dr. Raf Pearl CO2 [Moles/Vol] 29.3 mmol/L Normal 21.0-32.0 [facility] Comment on above: Performed By: #### B MP #### [facility] [address] [address] [address] Raf Pearl Creatinine [Mass/Vol] 1.15 mg/dL Critically high 0.55-1.02 [facility] Comment on above: Performed By: #### B MP #### [facility] [address] [address] [address] Raf Pearl EGFR-AF NORWEGIAN 57 mL/min/1.73m2 Critically low >=60 [facility] Comment on above: Performed By: #### B MP #### [facility] [address] [address] [address] Raf Pearl EGFR-NON AF NORWEGIAN 47 mL/min/1.73m2 Critically low >=60 [facility] Comment on above: Performed By: #### B MP #### [facility] [address] [address] [address] Raf Pearl Glucose [Mass/Vol] 146 mg/dL Critically high 74-106 [facility] Comment on above: Performed By: #### B MP #### [facility] [address] [address] [address] Raf Pearl Potassium [Moles/Vol] 3.9 mmol/L Normal 3.5-5.1 [facility] Comment on above: Performed By: #### B MP #### [facility] [address] [address] [address] Raf Pearl Sodium [Moles/Vol] 137 mmol/L Normal 136-145 [facility] Comment on above: Performed By: #### B MP #### [facility] [address] [address] [address] Raf Pearl Urea nitrogen [Mass/Vol] 10.0 mg/dL Normal 7.0-18.0 [facility] Comment on above: Performed By: #### B MP #### [facility] [address] [address] [address] Raf Pearl Urea nitrogen/Creatinine [Mass ratio] 8.7 mg/mg Normal [facility] Comment on above: Performed By: #### B MP #### [facility] [address] [place] [address] Dr. Raf Pearl CBC AUTO DIFFon 01-22-2022 BASO # 0.1 103/ul Normal 0.0-0.1 [facility] Comment on above: Performed By: #### B MP #### [facility] [address] [place] [address] Dr. Raf Pearl Basophils/100 WBC (Bld) 1.5 % Normal 0.2-2.0 [facility] Comment on above: Performed By: #### B MP #### [facility] [address] [place] [address] Dr. Raf Pearl EO # 0.3 103/ul Normal 0.0-0.7 [facility] Comment on above: Performed By: #### B MP #### [facility] [address] [place] [address] Dr. Raf Pearl Eosinophils/100 WBC (Bld) 5.3 % Normal 0.9-7.0 [facility] Comment on above: Performed By: #### B MP #### [facility] [address] [place] [address] Dr. Raf Pearl Erythrocyte distribution width (RBC) [Ratio] 13.1 % Normal 11.0-15.0 [facility] Comment on above: Performed By: #### B MP #### [facility] [address] [place] [address] Dr. Raf Pearl Hematocrit (Bld) [Volume fraction] 36.4 % Normal 36.0-48.0 [facility] Comment on above: Performed By: #### B MP #### [facility] [address] [place] [address] Dr. Raf Pearl Hemoglobin (Bld) [Mass/Vol] 12.4 g/dL Normal 12.0-16.0 [facility] Comment on above: Performed By: #### B MP #### [facility] [address] [place] [address] Dr. Raf Pearl IG # 0.02 10e3/ul Normal 0.00-0.03 [facility] Comment on above: Performed By: #### B MP #### [facility] [address] [place] [address] Dr. Raf Pearl IG % 0.3 % Normal 0.0-0.5 [facility] Comment on above: Performed By: #### B MP #### [facility] [address] [address] [address] Raf Pearl LYMPH # 2.0 103/ul Normal 1.2-3.8 [facility] Comment on above: Performed By: #### B MP #### [facility] [address] [place] [address] Dr. Raf Pearl Lymphocytes/100 WBC (Bld) 31.6 % Normal 20.5-60.0 [facility] Comment on above: Performed By: #### B MP #### [facility] [address] [place] [address] Dr. Raf Pearl MANUAL DIFF REQ NO Normal [facility] Comment on above: Performed By: #### B MP #### [facility] [address] [place] [address] Dr. Raf Pearl MCH (RBC) [Entitic mass] 31.4 pg Normal 26.7-34.0 [facility] Comment on above: Performed By: #### B MP #### [facility] [address] [place] [address] Dr. Raf Pearl MCHC (RBC) [Mass/Vol] 34.1 g/dL Normal 29.9-35.2 [facility] Comment on above: Performed By: #### B MP #### [facility] [address] [place] [address] Dr. Raf Pearl MCV (RBC) [Entitic vol] 92.2 fL Normal 81.0-99.0 [facility] Comment on above: Performed By: #### B MP #### [facility] [address] [place] [address] Dr. Raf Pearl MONO # 0.4 103/ul Normal 0.3-0.8 [facility] Comment on above: Performed By: #### B MP #### [facility] [address] [place] [address] Dr. Raf Pearl Monocytes/100 WBC (Bld) 6.8 % Normal 1.7-12.0 [facility] Comment on above: Performed By: #### B MP #### [facility] [address] [place] [address] Dr. Raf Pearl NEUT # 3.4 103/ul Normal 1.4-6.5 [facility] Comment on above: Performed By: #### B MP #### [facility] [address] [place] [address] Dr. Raf Pearl Neutrophils/100 WBC (Bld) 54.5 % Normal 43.0-75.0 [facility] Comment on above: Performed By: #### B MP #### [facility] [address] [place] [address] Dr. Raf Paerl Platelet mean volume (Bld) [Entitic vol] 9.7 fL Normal 9.5-13.5 [facility] Comment on above: Performed By: #### B MP #### [facility] [address] [place] [address] Dr. Raf Pearl PLT 384 103/ul Normal 150-450 [facility] Comment on above: Performed By: #### B MP #### [facility] [address] [place] [address] Dr. Raf Pearl RBC 3.95 106/ul Critically low 4.20-5.40 [facility] Comment on above: Performed By: #### B MP #### [facility] [address] [place] [address] Dr. Raf Pearl WBC 6.2 103/ul Normal 4.0-11.0 [facility] Comment on above: Performed By: #### B MP #### [facility] [address] [place] [address] Dr. Raf Pearl GLYCOHEMOGLOBIN A1Con 2021 ADA RECOMMENDATION SEE BELOW Normal [facility] Comment on above: Result Comment: ADA RECOMMENDED LIMIT 4.0 - 6.0 ADA THERAPEUTIC TARGET < 7.0 ACTION SUGGESTED > 7.0 Performed By: #### A 1C #### [facility] [address] [place] [address] Dr. Raf Pearl Glucose [Mass/Vol] 137 mg/dL Normal [facility] Comment on above: Performed By: #### A 1C #### [facility] [address] [place] [address] Dr. Raf Pearl HbA1c (Bld) [Mass fraction] 6.4 % Critically high 4.5-6.2 [facility] Comment on above: Performed By: #### A 1C #### [facility] [address] [place] [address] Dr. Raf Pearl LIPID PROFILEon 01-22-2022 CHOL-HDL RATIO NORM SEE BELOW Normal [facility] Comment on above: Result Comment: 3.3 - 4.4 LOW RISK 4.4 - 7.1 AVERAGE RISK 7.1 - 11.0 MODERATE RISK >11.0 HIGH RISK Performed By: #### B MP #### [facility] [address] [place] [address] Dr. Raf Pearl Cholesterol [Mass/Vol] 165 mg/dL Normal <=200 [facility] Comment on above: Performed By: #### B MP #### [facility] [address] [place] [address] Dr. Raf Pearl Cholesterol in HDL [Mass/Vol] 66 mg/dL Critically high 40-60 [facility] Comment on above: Performed By: #### B MP #### [facility] [address] [place] [address] Dr. Raf Pearl Cholesterol in LDL [Mass/Vol] 87.8 mg/dL Normal [facility] Comment on above: Performed By: #### B MP #### [facility] [address] [place] [address] Dr. Raf Pearl Cholesterol.total/Ch olesterol in HDL [Mass ratio] 2.5 {ratio} Normal [facility] Comment on above: Performed By: #### B MP #### [facility] [address] [address] [address] Raf Pearl HDL NORMAL > or = 60 mg/dl - LOW CARDIOVASCULAR RISK <40 mg/dl - HIGH CARDIOVASCULAR RISK Normal [facility] Comment on above: Performed By: #### B MP #### [facility] [address] [address] [address] Raf Pearl LDL CALC NORMAL SEE BELOW Normal [facility] Comment on above: Result Comment: <100 mg/dl OPTIMAL 100 - 129 mg/dl NEAR OR ABOVE OPTIMAL 130 - 159 mg/dl BORDERLINE HIGH 160 - 189 mg/dl HIGH >190 mg/dl VERY HIGH Performed By: #### B MP #### [facility] [address] [address] [address] Raf Pearl Triglyceride [Mass/Vol] 56 mg/dL Normal <=150 [facility] Comment on above: Performed By: #### B MP #### [facility] [address] [place] [address] Dr. Raf Pearl VLDL CALC 11.2 mg/dL Normal [facility] Comment on above: Performed By: #### B MP #### [facility] [address] [address] [address] Raf Pearl PROF 14(COMP METB)on 022 Albumin [Mass/Vol] 4.0 g/dL Normal 3.4-5.0 [facility] Comment on above: Performed By: #### B MP #### [facility] [address] [place] [address] Dr. Raf Pearl Albumin/Globulin [Mass ratio] 1.1 {ratio} Normal [facility] Comment on above: Performed By: #### B MP #### [facility] [address] [address] [address] Raf Pearl ALP [Catalytic activity/Vol] 81 U/L Normal 46-116 [facility] Comment on above: Performed By: #### B MP #### [facility] [address] [place] [address] Dr. Raf Pearl ALT [Catalytic activity/Vol] 26 U/L Normal 14-59 [facility] Comment on above: Performed By: #### B MP #### [facility] [address] [address] [address] Raf Pearl Anion gap [Moles/Vol] 12.1 mmol/L Normal [facility] Comment on above: Performed By: #### B MP #### [facility] [address] [address] [address] Raf Pearl AST [Catalytic activity/Vol] 16 U/L Normal 15-37 [facility] Comment on above: Performed By: #### B MP #### [facility] [address] [address] [address] Raf Pearl Bilirubin [Mass/Vol] 0.3 mg/dL Normal 0.2-1.0 [facility] Comment on above: Performed By: #### B MP #### [facility] [address] [address] [address] Raf Pearl Calcium [Mass/Vol] 9.2 mg/dL Normal 8.5-10.1 [facility] Comment on above: Performed By: #### B MP #### [facility] [address] [address] [address] Raf Pearl Chloride [Moles/Vol] 103 mmol/L Normal 98-107 [facility] Comment on above: Performed By: #### B MP #### [facility] [address] [address] [address] Raf Pearl CO2 [Moles/Vol] 26.9 mmol/L Normal 21.0-32.0 [facility] Comment on above: Performed By: #### B MP #### [facility] [address] [address] [address] Raf Pearl Creatinine [Mass/Vol] 1.17 mg/dL Critically high 0.55-1.02 [facility] Comment on above: Performed By: #### B MP #### [facility] [address] [address] [address] Raf Pearl EGFR-AF NORWEGIAN 56 mL/min/1.73m2 Critically low >=60 [facility] Comment on above: Performed By: #### B MP #### [facility] [address] [address] [address] Raf Pearl EGFR-NON AF NOR[place]GIAN 46 mL/min/1.73m2 Critically low >=60 [facility] Comment on above: Performed By: #### B MP #### [facility] [address] [address] [address] Raf Pearl Globulin (S) [Mass/Vol] 3.6 g/dL Normal [facility] Comment on above: Performed By: #### B MP #### [facility] [address] [address] [address] Raf Pearl Glucose [Mass/Vol] 141 mg/dL Critically high 74-106 [facility] Comment on above: Performed By: #### B MP #### [facility] [address] [address] [address] Raf Pearl Potassium [Moles/Vol] 4.0 mmol/L Normal 3.5-5.1 [facility] Comment on above: Performed By: #### B MP #### [facility] [address] [address] [address] Raf Pearl Protein [Mass/Vol] 7.6 g/dL Normal 6.4-8.2 [facility] Comment on above: Performed By: #### B MP #### [facility] [address] [address] [address] Raf Pearl Sodium [Moles/Vol] 138 mmol/L Normal 136-145 [facility] Comment on above: Performed By: #### B MP #### [facility] [address] [address] [address] Raf Pearl Urea nitrogen [Mass/Vol] 19.0 mg/dL Critically high 7.0-18.0 [facility] Comment on above: Performed By: #### B MP #### [facility] [address] [address] [address] Raf Pearl Urea nitrogen/Creatinine [Mass ratio] 16.2 mg/mg Normal [facility] Comment on above: Performed By: #### B MP #### [facility] [address] [address] [address] Raf Pearl VIT B12 AND FOLATEon 022 Cobalamin (Vitamin B12) [Mass/Vol] 786.0 pg/mL Normal 193.0-986.0 [facility] Comment on above: Performed By: #### B 12FOL #### [facility] [address] [address] [address] Raf Pearl FOLATE 21.80 ng/mL Normal 8.60-58.90 [facility] Comment on above: Performed By: #### B 12FOL #### [facility] [address] [address] [address] Raf Pearl CERVICAL SPINE 2 OR 3 VWSon 11-02-2018 CERVICAL SPINE 2 OR 3 VWS [facility] Department of Radiology [address] [place] [id number] Patient Name: CRISELDA MORFIN : 1955 Sex: F Age: Race: White Pt. Location: Patient Status: D Ordered Date: 11/02/2018 9:20:00 AM Completed Date: 11/02/2018 09:29 AM Requesting Provider: MAHESH VELEZ Attending Provider: MAHESH VELEZ Report Copy To: Signs & Symptoms: M48.02 Spinal stenosis, cervical region I10 History: Letha Comments: , postop, eval hardware and alignment , Views (X-RAY, CERVICAL SPINE): AP, Lateral, Odontoid , postop, eval hardware and alignment , Views (X-RAY, CERVICAL SPINE): AP, Lateral, Odontoid , , , Ordering Provider - A ROSIE MSN DOUGH PUNCHER , Exam: CERVICAL SPINE 2 OR 3 [...] (X-RAY, CERVICAL SPINE): AP, ...More In Sending clinical resource manager 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 Electronically signed by:Jeffrey Miles. Transcribed by: [email or web address], User Resident: ANTHONY SUNG Electronically Signed by: JEFFREY MILES @ 11/04/2018 04:42 PM I personally read this/these film(s) with this resident Normal [facility] Comment on above: Order Comment: , pos top, eval hardware and alignment , Views (X-RAY, CERVICAL SPINE): AP, Lateral, Odontoid , postop, eval hardware and alignment , Views (X-RAY, CERVICAL SPINE): AP, Lateral, Odontoid , , , Ordering Provider - A ROSIE MSN DOUGH PUNCHER , POC GLUCOSE LABon 08-25-2018 Glucose [Mass/Vol] 208 mg/dL High 70-100 [facility] Comment on above: Performed By: #### 5 [id number], [id number] #### [facility] [address] [place] [address], [facility] Glucose [Mass/Vol] 98 mg/dL Normal 70-100 [facility] Comment on above: Performed By: #### 5 [id number], [id number] #### [facility] [address] [facility] BASIC METABOLIC PANELon 05-0 Calcium [Mass/Vol] 7.7 mg/dL Low 8.6-10.3 [facility] Comment on above: Order Comment: No: D o not add to previous draw Performed By: #### 5 0103 #### [facility] [address] [facility] [place] [address], [facility] Chloride [Moles/Vol] 109 mmol/L High 98-107 [facility] Comment on above: Order Comment: No: D o not add to previous draw Performed By: #### 5 [id number] #### [facility] [address] [place] [address], [facility] CO2 [Moles/Vol] 24 mmol/L Normal 21-31 [facility] Comment on above: Order Comment: No: D o not add to previous draw Performed By: #### 5 0103 #### [facility] [address] [facility] [place] [address], [facility] Creatinine [Mass/Vol] 0.89 mg/dL Normal 0.60-1.20 [facility] Comment on above: Order Comment: No: D o not add to previous draw Performed By: #### 5 0103 #### [facility] [address] [facility] [place] [address], [facility] GFR/1.73 sq M predicted among blacks MDRD (S/P/Bld) [Vol rate/Area] mL/min/{1.73_m2} Normal >60 [facility] Comment on above: Order Comment: No: D o not add to previous draw Performed By: #### 5 0103 #### [facility] [address] [place] [address], [facility] GFR/1.73 sq M predicted among non-blacks MDRD (S/P/Bld) [Vol rate/Area] mL/min/{1.73_m2} Normal >60 [facility] Comment on above: Order Comment: No: D o not add to previous draw Performed By: #### 5 0103 #### [facility] [address] [place] [address], [facility] Glucose [Mass/Vol] 94 mg/dL Normal 70-100 [facility] Comment on above: Order Comment: No: D o not add to previous draw Performed By: #### 5 0103 #### [facility] [address] [place] [address], [facility] Potassium [Moles/Vol] 3.3 mmol/L Low 3.5-5.1 [facility] Comment on above: Order Comment: No: D o not add to previous draw Performed By: #### 5 0103 #### [facility] [address] [place] [address], [facility] Sodium [Moles/Vol] 140 mmol/L Normal 136-145 [facility] Comment on above: Order Comment: No: D o not add to previous draw Performed By: #### 5 0103 #### [facility] [address] [place] [address], [facility] Urea nitrogen [Mass/Vol] 11 mg/dL Normal 7-25 [facility] Comment on above: Order Comment: No: D o not add to previous draw Performed By: #### 5 0103 #### [facility] [address] [place] [address], [place] CBC W/DIFFon 08-24-2018 ABS BASOPHILS 0.0 10*3/uL Normal 0.0-0.2 [facility] Comment on above: Order Comment: No: D o not add to previous draw Performed By: #### 5 0103 #### [facility] [address] [place] [address], [facility] ABS IMM GRANS 0.1 10*3/uL Normal 0.0-0.2 [facility] Comment on above: Order Comment: No: D o not add to previous draw Performed By: #### 5 0103 #### [facility] [address] [facility] [address], [facility] ABS NEUTROPHILS 12.5 10*3/uL High 1.6-7.6 [facility] Comment on above: Order Comment: No: D o not add to previous draw Performed By: #### 5 0103 #### [facility] [address] [facility] [place] [address], [facility] Basophils/100 WBC (Bld) 0.3 % Normal 0.0-1.0 [facility] Comment on above: Order Comment: No: D o not add to previous draw Performed By: #### 5 [id number] #### [facility] [address] [facility] [address], [facility] Eosinophils (Bld) [#/Vol] 0.0 10*3/uL Normal 0.0-0.5 [facility] Comment on above: Order Comment: No: D o not add to previous draw Performed By: #### 5 [id number] #### [facility] [address] [facility]. [place] [id number], [facility] Eosinophils/100 WBC (Bld) 0.0 % Normal 0.0-6.0 [facility] Comment on above: Order Comment: No: D o not add to previous draw Performed By: #### 5 0103 #### [facility] [address] [place] [address], [facility] Erythrocyte distribution width (RBC) [Ratio] 13.0 % Normal 11.5-15.0 [facility] Comment on above: Order Comment: No: D o not add to previous draw Performed By: #### 5 [id number] #### [facility] [address] [place] [address], [facility] Hematocrit (Bld) [Volume fraction] 31.7 % Low 36.0-45.0 [facility] Comment on above: Order Comment: No: D o not add to previous draw Performed By: #### 5 [id number] #### [facility] [address] [place] [address], [facility] Hemoglobin (Bld) [Mass/Vol] 10.3 g/dL Low 12.0-15.0 [facility] Comment on above: Order Comment: No: D o not add to previous draw Performed By: #### 5 [id number] #### [facility] [address] [place] [address], [facility] IMMATURE GRANS 0.5 % Normal 0.0-1.0 [facility] Comment on above: Order Comment: No: D o not add to previous draw Performed By: #### 5 0103 #### [facility] [address] [facility] [address], [facility] Lymphocytes (Bld) [#/Vol] 1.9 10*3/uL Normal 1.2-4.0 [facility] Comment on above: Order Comment: No: D o not add to previous draw Performed By: #### 5 [id number] #### [facility] [address] [facility] [address], [facility] Lymphocytes/100 WBC (Bld) 11.9 % Low 20.0-45.0 [facility] Comment on above: Order Comment: No: D o not add to previous draw Performed By: #### 5 [id number] #### [facility] [address] [place] [address], [facility] MCH (RBC) [Entitic mass] 31.7 pg Normal 27.0-33.0 The [facility] Comment on above: Order Comment: No: D o not add to previous draw Performed By: #### 5 0103 #### [facility] [address] [place] [address], [facility] MCHC (RBC) [Mass/Vol] 32.5 g/dL Normal 32.0-35.0 The [facility] Comment on above: Order Comment: No: D o not add to previous draw Performed By: #### 5 0103 #### [facility] [address] [place] [address], [facility] MCV (RBC) [Entitic vol] 97.5 fL Normal 82.0-98.0 The [facility] Comment on above: Order Comment: No: D o not add to previous draw Performed By: #### 5 0103 #### [facility] [address] [facility] [place] [address], [facility] Monocytes (Bld) [#/Vol] 1.2 10*3/uL High 0.1-1.0 The [facility] Comment on above: Order Comment: No: D o not add to previous draw Performed By: #### 5 0103 #### [facility] [address] [facility] [place] [address], [facility] MONOS 7.7 % Normal 5.0-12.0 The [facility] Comment on above: Order Comment: No: D o not add to previous draw Performed By: #### 5 0103 #### [facility] [address] [place] [address], [facility] Neutrophils/100 WBC (Bld) 79.6 % High 40.0-72.0 The [facility] Comment on above: Order Comment: No: D o not add to previous draw Performed By: #### 5 0103 #### [facility] [address] [place] [id number], [facility] Nucleated RBC/100 WBC (Bld) [Ratio] 0 % Normal 0-0 The [facility] Comment on above: Order Comment: No: D o not add to previous draw Performed By: #### 5 0103 #### [facility] [address] [place] [id number], [facility] PLAT CNT 263 10*3/uL Normal 150-400 The [facility] Comment on above: Order Comment: No: D o not add to previous draw Performed By: #### 5 0103 #### [facility] [address] [place] [address], [facility] RBC (Bld) [#/Vol] 3.25 10*6/uL Low 3.80-5.00 [facility] Comment on above: Order Comment: No: D o not add to previous draw Performed By: #### 5 0103 #### [facility] [address] [place] [address], [facility] WBC (Bld) [#/Vol] 15.70 10*3/uL High 4.00-10.60 [facility] Comment on above: Order Comment: No: D o not add to previous draw Performed By: #### 5 0103 #### [facility] [address] [place] [id number], [facility] LIPID PROFILEon 08-24-2018 Cholesterol [Mass/Vol] 128 mg/dL Normal 120-200 The [facility] Comment on above: Order Comment: No: D o not add to previous draw Result Comment: CHOL ESTEROL REFERENCE RANGE: 20 YEARS AND OLDER CARDIOVASCULAR RISK Less than 200 mg/dl Low Risk 200 to 239 mg/dl Borderline Risk 240 mg/dl and greater High Risk Performed By: #### 5 0103 #### [facility] [address] [place] [address], [facility] Cholesterol in HDL [Mass/Vol] 49 mg/dL Normal 23-92 The [facility] Comment on above: Order Comment: No: [...] 0103 #### [facility] [address] [place] [address], [facility] Cholesterol in LDL [Mass/Vol] 65 mg/dL Normal 0-130 [facility] Comment on above: Order Comment: No: D o not add to previous draw Result Comment: LDL IS A CALCULATION LDL IS ONLY VALID IF THE TRIG IS LESS THAN 400. Performed By: #### 5 0103 #### [facility] [address] [place] [address], [facility] Cholesterol.total/Ch olesterol in HDL [Mass ratio] 2.6 {ratio} Normal .0-4.5 The [facility] Comment on above: Order Comment: No: D o not add to previous draw Performed By: #### 5 0103 #### [facility] [address] [place] [address], [facility] NON-HDL CHOLESTEROL 79 mg/dL Normal The [facility] Comment on above: Order Comment: No: D o not add to previous draw Performed By: #### 5 0103 #### [facility] [address] [place] [address], [facility] Triglyceride [Mass/Vol] 69 mg/dL Normal 40-149 The [facility] Comment on above: Order Comment: No: D o not add to previous draw Result Comment: TRIG LYCERIDE REFERENCE RANGE: 20 YEARS AND OLDER CARDIOVASCULAR RISK LESS THAN 150 mg/dl LOW RISK 150 TO 199 mg/dl BORDERLINE RISK 200 mg/dl AND GREATER HIGH RISK Performed By: #### 5 0103 #### [facility] [address] [place] [address], [facility] VLDL CHOL 14 mg/dL Normal 0-40 [facility] Comment on above: Order Comment: No: D o not add to previous draw Performed By: #### 5 0103 #### [facility] [address] [place] [address], [place] POC GLUCOSE LABon 08-24-2018 Glucose [Mass/Vol] 162 mg/dL High 70-100 The [facility] Comment on above: Performed By: #### 5 6101, [id number] #### [facility] [address] [place] [address], [place] Glucose [Mass/Vol] 146 mg/dL High 70-100 The [facility] Comment on above: Performed By: #### 5 610, [id number] #### [facility] [address] [place] [address], [place] Glucose [Mass/Vol] 213 mg/dL High 70-100 The [facility] Comment on above: Performed By: #### 5 6101, [id number] #### [facility] [address] [place] [address], [place] Glucose [Mass/Vol] 81 mg/dL Normal 70-100 The [facility] Comment on above: Performed By: #### 5 6101, [id number] #### [facility] [address] [place] [address], [place] BASIC METABOLIC PANELon 05- Calcium [Mass/Vol] 8.4 mg/dL Low 8.6-10.3 The [facility] Comment on above: Order Comment: Yes: Add to Previous draw if able Performed By: #### 5 0103 #### [facility] [address] [place] [address], [place] Chloride [Moles/Vol] 103 mmol/L Normal 98-107 The [facility] Comment on above: Order Comment: Yes: Add to Previous draw if able Performed By: #### 5 010 #### [facility] [address] [place] [address], [place] CO2 [Moles/Vol] 26 mmol/L Normal 21-31 The [facility] Comment on above: Order Comment: Yes: Add to Previous draw if able Performed By: #### 5 0103 #### [facility] [address] [place] [address], [place] Creatinine [Mass/Vol] 1.03 mg/dL Normal 0.60-1.20 The [facility] Comment on above: Order Comment: Yes: Add to Previous draw if able Performed By: #### 5 0103 #### [facility] [address] [place] [address], [place] GFR/1.73 sq M predicted among blacks MDRD (S/P/Bld) [Vol rate/Area] mL/min/{1.73_m2} Normal >60 The [facility] Comment on above: Order Comment: Yes: Add to Previous draw if able Performed By: #### 5 0103 #### [facility] [address] [place] [address], [place] GFR/1.73 sq M predicted among non-blacks MDRD (S/P/Bld) [Vol rate/Area] 54 ml/min/1.73sq m Abnormal >60 The [facility] Comment on above: Order Comment: Yes: Add to Previous draw if able Performed By: #### 5 0103 #### [facility] [address] [place] [address], [place] Glucose [Mass/Vol] 209 mg/dL High 70-100 The [facility] Comment on above: Order Comment: Yes: Add to Previous draw if able Performed By: #### 5 0103 #### [facility] [address] [place] [address], [place] Potassium [Moles/Vol] 3.9 mmol/L Normal 3.5-5.1 The [facility] Comment on above: Order Comment: Yes: Add to Previous draw if able Performed By: #### 5 0103 #### [facility] [address] [place] [address], [place] Sodium [Moles/Vol] 135 mmol/L Low 136-145 [facility] Comment on above: Order Comment: Yes: Add to Previous draw if able Performed By: #### 5 3 #### [facility] [address] [place] [address], [facility] Urea nitrogen [Mass/Vol] 16 mg/dL Normal 7-25 The [facility] Comment on above: Order Comment: Yes: Add to Previous draw if able Performed By: #### 3 #### [facility] [address] CBC COMPLETE BLOOD COUNTon 0 08-23-2018 Erythrocyte distribution width (RBC) [Ratio] 12.8 % Normal 11.5-15.0 The [facility] Comment on above: Order Comment: Yes: Add to Previous draw if able Performed By: #### 5 102 #### [facility] [address] [place] [address], [facility] Hematocrit (Bld) [Volume fraction] 35.0 % Low 36.0-45.0 The [facility] Comment on above: Order Comment: Yes: Add to Previous draw if able Performed By: #### 5 3 #### [facility] [address] [place] [address], [facility] Hemoglobin (Bld) [Mass/Vol] 11.2 g/dL Low 12.0-15.0 The [facility] Comment on above: Order Comment: Yes: Add to Previous draw if able Performed By: #### 5 3 #### [facility] [address] [place] [address], [facility] MCH (RBC) [Entitic mass] 31.5 pg Normal 27.0-33.0 The [facility] Comment on above: Order Comment: Yes: Add to Previous draw if able Performed By: #### 5 3 #### [facility] [address] [place] [address], [facility] MCHC (RBC) [Mass/Vol] 32.0 g/dL Normal 32.0-35.0 The [facility] Comment on above: Order Comment: Yes: Add to Previous draw if able Performed By: #### 5 0103 #### [facility] [address] [place] [address], [facility] MCV (RBC) [Entitic vol] 98.3 fL High 82.0-98.0 The [facility] Comment on above: Order Comment: Yes: Add to Previous draw if able Performed By: #### 5 0103 #### [facility] [address] [facility] [place] [address], [facility] Nucleated RBC/100 WBC (Bld) [Ratio] 0 % Normal 0-0 The [facility] Comment on above: Order Comment: Yes: Add to Previous draw if able Performed By: #### 5 0103 #### [facility] [address] [facility] [place] [address], [facility] PLAT CNT 276 10*3/uL Normal 150-400 The [facility] Comment on above: Order Comment: Yes: Add to Previous draw if able Performed By: #### 5 0103 #### [facility] [address] [facility] [place] [address], [facility] RBC (Bld) [#/Vol] 3.56 10*6/uL Low 3.80-5.00 The [facility] Comment on above: Order Comment: Yes: Add to Previous draw if able Performed By: #### 5 0103 #### [facility] [address] [facility] [place] [address], [facility] WBC (Bld) [#/Vol] 14.61 10*3/uL High 4.00-10.60 The [facility] Comment on above: Order Comment: Yes: Add to Previous draw if able Performed By: #### 5 0103 #### [facility] [address] [place] [address], [facility] CERVICAL SPINE 2 OR 3 VWSon 08-23-2018 CERVICAL SPINE 2 OR 3 S [facility] Department of Radiology [address] [place] [address] [phone] Patient Name: CRISELDA MORFIN : 1955 Sex: [...] C6. Electronically signed by:Xiomara Nath. Transcribed by: [email or web address], User Resident: Electronically Signed by: XIOMARA NATH @ 08/23/2018 04:07 PM Normal The [facility] Comment on above: Order Comment: C4-C5 , C5-C6 ANTERIOR CERVICAL DISCECTOMY WITH FUSION Operative Reporton 9 Operative Report MR#: [id number] S [facility] Pt. Name: Criselda Morfin Room #: 0C Discharge Date: Birthdate: 1955 OPERATIVE REPORT DATE OF SURGERY: 08/23/2018 SURGEON: Demetris Askew M.D. 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 POSTOPERATIVE DIAGNOSIS: Herniated cervical disk and spinal stenosis from C4 through C6. MACHINE WHITENER: ELIDIA Castle. ANESTHESIA: Endotracheal, Dr. Falcon. PROCEDURE: [...] size 8 at C5-6. The plate was [place], size 35 mm. The screws were 6, [...] Askew M.D. Date Trans: 08/23/2018 01:26 P/kari [id number] Normal The [facility] POC GLUCOSE LABon 08-23-2018 Glucose [Mass/Vol] 157 mg/dL High 70-100 The [facility] Comment on above: Performed By: #### 5 0103 #### [facility] [address] Glucose [Mass/Vol] 190 mg/dL High 70-100 The [facility] Comment on above: Performed By: #### 5 0103 #### [facility] [address] Glucose [Mass/Vol] 182 mg/dL High 70-100 The [facility] Comment on above: Performed By: #### 5 0103 #### [facility] [address] [place] [address], [facility] Glucose [Mass/Vol] 94 mg/dL Normal 70-100 The [facility] Comment on above: Performed By: #### 5 0103 #### [facility] [address] *MRSA/MSSA DNA NASALon 08-08 *MRSA/MSSA DNA NASAL Clinical Report: (D ) Specimen: NASAL SWAB Collected: 08/08/2018 15:04 Status: Final Last Updated: 08/08/2018 20:45 MSSA DNA (Final) Negative MRSA DNA (Final) Negative Normal The [facility] Comment on above: Performed By: #### 3 1595 #### [facility] [address] *URINE CULTUREon 08-08-2018 Bacteria identified Cx [...] CEFAZOLIN (CZ) 2 Susceptible 4 Susceptible CEFTRIAXONE ([place] LAW CLERK) <=0.5 Susceptible <=0.5 Susceptible CIPROFLOXACIN (CIP) <=0.5 Susceptible <=0.5 Susceptible GENTAMICIN (GM) 1 Susceptible 4 Susceptible MEROPENEM (MEM) <=0.125 Susceptible NITROFURANTOIN (FT) 32 Susceptible >64 Resistant PIP/TAZO (TZP) 4/4 Susceptible PIP/TAZO (TZP) <=2/4 Susceptible TOBRAMYCIN (TOB) 1 Susceptible 2 Susceptible TRIMETH/SULFA (SXT) <=0.5/9.5 Susceptible <=0.5/9.5 Susceptible Antibiotic Summary Grid: AMS AM AZM CZ [place] LAW CLERK CIP GM MEM FT TZP TOB Citrobacter S R S S S S S S S S S amalonaticus complex Proteus mirabilis S S S S S S S R S S SXT Citrobacter S amalonaticus complex Proteus mirabilis S Normal [facility] Comment on above: Performed By: #### 3 0339 #### [facility] [address] APTTon 08-08-2018 aPTT Coag (Bld) [Time] 28.0 s Normal 25.0-35.0 [facility] Comment on above: Result Comment: ALL [...] THIS PURPOSE. Performed By: #### 5 6101, [id number] #### [facility] [address] BASIC METABOLIC PANELon - Calcium [Mass/Vol] 9.6 mg/dL Normal 8.6-10.3 [facility] Comment on above: Performed By: #### 0 0071 #### [facility] [address] [facility] [place] [address], [place] Chloride [Moles/Vol] 103 mmol/L Normal 98-107 The [facility] Comment on above: Performed By: #### 0 0071 #### [facility] [address] [place] [address], [place] CO2 [Moles/Vol] 30 mmol/L Normal 21-31 [facility] Comment on above: Performed By: #### 0 0071 #### [facility] [address] [place] [address], [place] Creatinine [Mass/Vol] 1.07 mg/dL Normal 0.60-1.20 The [facility] Comment on above: Performed By: #### 0 0071 #### [facility] [address] [place] [address], [place] GFR/1.73 sq M predicted among blacks MDRD (S/P/Bld) [Vol rate/Area] mL/min/{1.73_m2} Normal >60 The [facility] Comment on above: Performed By: #### 0 0071 #### [facility] [address] [place] [address], [place] GFR/1.73 sq M predicted among non-blacks MDRD (S/P/Bld) [Vol rate/Area] 52 ml/min/1.73sq m Abnormal >60 The [facility] Comment on above: Performed By: #### 0 0071 #### [facility] [address] [place] [address], [place] Glucose [Mass/Vol] 93 mg/dL Normal 70-100 [facility] Comment on above: Performed By: #### 0 0071 #### [facility] [address] [place] [address], [place] Potassium [Moles/Vol] 4.2 mmol/L Normal 3.5-5.1 The [facility] Comment on above: Performed By: #### 0 0071 #### [facility] [address] Sodium [Moles/Vol] 139 mmol/L Normal 136-145 The [facility] Comment on above: Performed By: #### 0 1 #### [facility] [address] Urea nitrogen [Mass/Vol] 18 mg/dL Normal 7-25 The [facility] Comment on above: Performed By: #### 0 1 #### [facility] [address] CBC W/DIFFon 08-08-2018 ABS BASOPHILS 0.1 10*3/uL Normal 0.0-0.2 The [facility] Comment on above: Performed By: #### 5 102 #### [facility] [address] ABS IMM GRANS 0.0 10*3/uL Normal 0.0-0.2 The [facility] Comment on above: Performed By: #### 5 102 #### [facility] [address] ABS NEUTROPHILS 5.0 10*3/uL Normal 1.6-7.6 The [facility] Comment on above: Performed By: #### 5 3 #### [facility] [address] Basophils/100 WBC (Bld) 0.9 % Normal 0.0-1.0 The [facility] Comment on above: Performed By: #### 5 102 #### [facility] [address] Eosinophils (Bld) [#/Vol] 0.2 10*3/uL Normal 0.0-0.5 The [facility] Comment on above: Performed By: #### 5 0103 #### [facility] [address] [place] [address], [facility] Eosinophils/100 WBC (Bld) 1.8 % Normal 0.0-6.0 The [facility] Comment on above: Performed By: #### 102 #### [facility] [address] [place] [address], [facility] Erythrocyte distribution width (RBC) [Ratio] 13.1 % Normal 11.5-15.0 The [facility] Comment on above: Performed By: #### 102 #### [facility] [address] [facility] [place] [address], [facility] Hematocrit (Bld) [Volume fraction] 37.2 % Normal 36.0-45.0 The [facility] Comment on above: Performed By: #### 102 #### [facility] [address] [facility] [place] [address], [facility] Hemoglobin (Bld) [Mass/Vol] 12.3 g/dL Normal 12.0-15.0 The [facility] Comment on above: Performed By: #### 102 #### [facility] [address] [facility] [place] [address], [facility] IMMATURE GRANS 0.5 % Normal 0.0-1.0 The [facility] Comment on above: Performed By: #### 3 #### [facility] [address] [facility] [place] [address], [facility] Lymphocytes (Bld) [#/Vol] 2.2 10*3/uL Normal 1.2-4.0 The [facility] Comment on above: Performed By: #### 3 #### [facility] [address] [facility] [place] [address], [facility] Lymphocytes/100 WBC (Bld) 26.5 % Normal 20.0-45.0 The [facility] Comment on above: Performed By: #### 102 #### [facility] [address] [facility] [address] MCH (RBC) [Entitic mass] 31.4 pg Normal 27.0-33.0 The [facility] Comment on above: Performed By: #### 5 0103 #### [facility] [address] [facility] MCHC (RBC) [Mass/Vol] 33.1 g/dL Normal 32.0-35.0 The [facility] Comment on above: Performed By: #### 5 0103 #### [facility] [address] [place] [address], [facility] MCV (RBC) [Entitic vol] 94.9 fL Normal 82.0-98.0 The [facility] Comment on above: Performed By: #### 5 3 #### [facility] [address] [facility] [address] Monocytes (Bld) [#/Vol] 0.7 10*3/uL Normal 0.1-1.0 The [facility] Comment on above: Performed By: #### 5 0103 #### [facility] [address] [facility] MONOS 8.3 % Normal 5.0-12.0 The [facility] Comment on above: Performed By: #### 5 0103 #### [facility] [address] [facility] Neutrophils/100 WBC (Bld) 62.0 % Normal 40.0-72.0 The [facility] Comment on above: Performed By: #### 5 0103 #### [facility] [address] [facility] [place] [address], [facility] Nucleated RBC/100 WBC (Bld) [Ratio] 0 % Normal 0-0 The [facility] Comment on above: Performed By: #### 5 0103 #### [facility] [address] [facility] [address] PLAT CNT 325 10*3/uL Normal 150-400 The [facility] Comment on above: Performed By: #### 5 0103 #### [facility] [address] [place] [address], [facility] RBC (Bld) [#/Vol] 3.92 10*6/uL Normal 3.80-5.00 The [facility] Comment on above: Performed By: #### 5 0103 #### [facility] [address] [place] [address], [facility] WBC (Bld) [#/Vol] 8.12 10*3/uL Normal 4.00-10.60 The [facility] Comment on above: Performed By: #### 5 0103 #### [facility] [address] CERVICAL SPINE 4 OR 5 VIEWSo 08-08-2018 CERVICAL SPINE 4 OR 5 VIEWS [facility] Department of Radiology [address] [place] [address] [phone] Patient Name: CRISELDA MORFIN : 1955 Sex: F Age: Race: White Pt. Location: Patient Status: O Ordered Date: 08/08/2018 2:25:00 PM Completed Date: 08/08/2018 02:48 PM Requesting Provider: DEMETRIS ASKEW Attending Provider: DEMETRIS ASKEW Report Copy To: DEMETRIS ASKEW Signs & Symptoms: M48.02 Spinal stenosis, cervical region I10 History: [place] Comments: , POST OP XRAY AP/LAT ONLY [...] level Electronically signed by:Xiomara Nath. Transcribed by: [email or web address], User Resident: Electronically Signed by: XIOMARA NATH @ 08/08/2018 03:24 PM Normal [facility] Comment on above: Order Comment: , POS T OP XRAY AP/LAT ONLY , POST OP XRAY AP/LAT ONLY , , , Ordering Charlene ASKEW MD , HEMOGLOBIN A1Con 08-08-2018 HbA1c (Bld) [Mass fraction] 154 mg/dL High 70-126 [facility] Comment on above: Performed By: #### 4 [id number] #### [facility] [address] [facility]. [address] HbA1c (Bld) [Mass fraction] 7.0 % High 4.0-6.0 [facility] Comment on above: Performed By: #### 4 [id number] #### [facility] [address] [facility]. [address] PROTHROMBIN TIMEon 9 INR Coag (PPP) [Relative time] 0.93 {INR} Normal 0.91-1.16 [facility] Comment on above: Result Comment: ACCC [...] CHEST 1995;[id number]. Performed By: #### 5 [id number], [id number] #### [facility] [address] [place] [place] [address], [facility] PT Coag (PPP) [Time] 12.5 s Normal 12.3-14.8 [facility] Comment on above: Result Comment: ALL RESULTS MUST BE INTERPRETED WITH RESPECT TO BLOOD DRAWING ARTIFACT OR DILUTION ERROR OF ANTICOAGULANT AT THE TIME OF SAMPLING. Performed By: #### 5 [id number], [id number] #### [facility] [address] [facility] [address] TYPE AND CROSSMATCHon 2018 ABO INTERPRETATION O Normal The [facility] Comment on above: Performed By: #### 6 [id number] #### [facility] [address] [place] [address], [place] RH INTERPRETATION Positive Normal [facility] Comment on above: Performed By: #### 6 2594 #### [facility] [address] [place] [address], [place] URINALYSIS REFLEXon 08-09-19 19 Appearance (U) CLEAR Normal CLEAR [facility] Comment on above: Performed By: #### 3 0965 #### [facility] [address] [place] [address], [place] Bilirubin [Mass/Vol] Negative Normal NEGATIVE [facility] Comment on above: Performed By: #### 3 0965 #### [facility] [address] [place] [address], [place] BLOOD Negative Normal NEGATIVE [facility] Comment on above: Performed By: #### 3 0965 #### [facility] [address] [place] [address], [place] Color (U) STRAW Abnormal YELLOW [facility] Comment on above: Performed By: #### 3 0965 #### [facility] [address] [place] [address], [place] EPIS NONE SEEN Normal FEW,OCC,NONE SEEN [facility] Comment on above: Performed By: #### 3 0965 #### [facility] [address] [place] [address], [place] Glucose [Mass/Vol] Negative Normal NEGATIVE [facility] Comment on above: Performed By: #### 3 0965 #### [facility] [address] [place] [address], [place] KETONE Negative Normal NEGATIVE [facility] Comment on above: Performed By: #### 3 0965 #### [facility] [address] [place] [address], [place] LEUK ALVARADO TRACE Abnormal NEGATIVE [facility] Comment on above: Performed By: #### 3 0965 #### [facility] [address] [place] [address], [place] Nitrite Ql (U) Negative Normal NEGATIVE [facility] Comment on above: Performed By: #### 3 0965 #### [facility] [address] [place] [address], [place] pH (Bld) 6.0 Normal 5.0-8.0 [facility] Comment on above: Performed By: #### 3 0965 #### [facility] [address] [place] [address], [place] Protein (U) [Mass/Vol] Negative Normal NEGATIVE [facility] Comment on above: Performed By: #### 3 0965 #### [facility] [address] [place] [address], [place] RBC (U) [#/Vol] 0-2 Abnormal NONE SEEN The [facility] Comment on above: Performed By: #### 3 0965 #### [facility] [address] [place] [address], [place] SPEC GRAV 1.011 Low 1.015-1.020 The [facility] Comment on above: Performed By: #### 3 0965 #### [facility] [address] [place] [address], [place] WBC UA 0-2 Abnormal NONE SEEN [facility] Comment on above: Performed By: #### 3 0965 #### [facility] [address] [place] [address], [place] Vital Signs Date Time Vital Sign Value Performing Clinician Facility 09-24-2022 08:10-0400 Body height 149.86 cm Rin Nicholson Other [facility] 09-24-2022 08:10-0400 Body mass index (BMI) [Ratio] 29.89 kg/m2 Rin Nicholson Other [facility] Other 09-24-2022 08:10-0400 Body temperature 98.6 [degF] Rin Nicholson Other [facility] Other 09-24-2022 08:10-0400 Body weight 67.13 kg Rin Nicholson Other [facility] Other 09-24-2022 08:10-0400 Diastolic blood pressure 84 mm[Hg] Rin Nicholson Other [facility] Other 09-24-2022 08:10-0400 Respiratory rate 18 /min Rin Nicholson Other [facility] Other 09-24-2022 08:10-0400 SaO2% (BldA) [Mass fraction] 97 % Rin Nicholson Other [facility] Other 09-24-2022 08:10-0400 Systolic blood pressure 126 mm[Hg] Rin Nicholson Other [facility] Other 08-09-2022 18:20-0400 Body height 149.86 cm Rin Nicholson Other [facility] Other 08-09-2022 18:20-0400 Body mass index (BMI) [Ratio] 29.89 kg/m2 Rin Nicholson Other [facility] Other 08-09-2022 18:20-0400 Body temperature 98.2 [degF] Rin Nicholson Other [facility] Other 08-09-2022 18:20-0400 Body weight 67.13 kg Rin Nicholson Other [facility] Other 08-09-2022 18:20-0400 Diastolic blood pressure 78 mm[Hg] Rin Nicholson Other [facility] Other 08-09-2022 18:20-0400 Respiratory rate 16 /min Rin Nicholson Other [facility] Other 08-09-2022 18:20-0400 SaO2% (BldA) [Mass fraction] 98 % Rin Nicholson Other [facility] Other 08-09-2022 18:20-0400 Systolic blood pressure 136 mm[Hg] Rin Nicholson Other [facility] Other 02-08-2022 18:00-0400 Body height 149.86 cm iRn Nicholson Other [facility] Other 02-08-2022 18:00-0400 Body mass index (BMI) [Ratio] 28.98 kg/m2 Rin Nicholson Other [facility] Other 02-08-2022 18:00-0400 Body temperature 98.1 [degF] Rin Nicholson Other [facility] Other 02-08-2022 18:00-0400 Body weight 65.09 kg Rin Nicholson Other [facility] Other 02-08-2022 18:00-0400 Diastolic blood pressure 80 mm[Hg] Rin Nicholson Other [facility] Other 02-08-2022 18:00-0400 Respiratory rate 16 /min Rin Nicholson Other [facility] Other 02-08-2022 18:00-0400 SaO2% (BldA) [Mass fraction] 99 % Rin Nicholson Other [facility] Other 02-08-2022 18:00-0400 Systolic blood pressure 136 mm[Hg] Rin Nicholson Other [facility] Other Encounters Encounter Date Encounter Type Care Provider Facility Start: 05-16-2023 End: 05-16-2023 ambulatory Rin Nicholson Other [facility] Other Start: 05-16-2023 Telephone encounter Rin Nicholson [facility] [place] Start: 05-03-2023 End: 05-03-2023 ambulatory Rin Nicholson Facility:[facility] Start: 05-03-2023 Encounter by compute r link Rin Nicholson [facility] [place] Start: 05-03-2023 End: 05-03-2023 ambulatory DO Rin Nicholson Work Phone: [facility] Work Phone: Start: 05-03-2023 End: 05-03-2023 Patient encounter procedure DO Rin Nicholson Work Phone: [facility] Work Phone: Start: 04-12-2023 End: 04-12-2023 ambulatory Rin Nicholson Other [facility] Other Start: 04-12-2023 Telephone encounter Rin Nicholson [facility] [place] Start: 04-04-2023 End: 04-04-2023 ambulatory Rin Nicholson Other [facility] Other Start: 04-04-2023 Telephone encounter Rin Nicholson [facility] [place] Start: 03-21-2023 End: 03-21-2023 ambulatory Rin Nicholson Other [facility] Other Start: 03-21-2023 Telephone encounter Rin Nicholson [facility] [place] Start: 02-23-2023 End: 02-23-2023 ambulatory Rin Nicholson Other [facility] Other Start: 02-23-2023 Telephone encounter Rin Nicholson [facility] [place] Start: 09-24-2022 End: 09-24-2022 ambulatory Rin Nicholson Other [facility] Other Start: 09-24-2022 Office outpatient vi sit 15 minutes Rin Nicholson [facility] [place] Start: 08-30-2022 End: 08-31-[address] RIN NICHOLSON Facility:[facility] Start: 08-17-2022 End: 08-17-2022 ambulatory Rin Nicholson Other [facility] Other Start: 08-17-2022 Telephone encounter Rin Nicholson [facility] [place] Start: 08-16-2022 End: 08-17-[address] RIN NICHOLSON Facility:[facility] Start: 08-09-2022 End: 08-09-2022 ambulatory Rin Nicholson Other [facility] Other Start: 08-09-2022 Office outpatient vi sit 25 minutes Rin Nicholson [facility] [place] Start: 08-06-2022 End: 08-06-2022 ambulatory Rin Nicholson Other [facility] Other Start: 08-06-2022 Telephone encounter Rin Nicholson [facility] [place] Start: 07-31-2022 End: 08-01-[address] RIN NICHOLSON Facility:[facility] Start: 06-04-2022 End: 06-04-2022 ambulatory Rin Nicholson Other [facility] Other Start: 06-04-2022 Telephone encounter Rin Nicholson [facility] [place] Start: 05-24-2022 End: 05-24-2022 ambulatory Rin Nicholsno Other [facility] Other Start: 05-24-2022 Telephone encounter Rin Nicholson [facility] [place] Start: 05-14-2022 End: 05-14-2022 ambulatory Rin Nicholson Other [facility] Other Start: 05-14-2022 Telephone encounter Rin Nicholson [facility] [place] Start: 04-30-2022 End: 04-30-[address] BETTINA MULLIGAN . Facility:[facility] Start: 04-22-2022 End: 04-22-2022 ambulatory Rin Nicholson Other [facility] Other Start: 04-22-2022 Telephone encounter Rin Nicholson [facility] [place] Start: 03-29-2022 End: 03-29-2022 ambulatory Rin Nicholson Other [facility] Other Start: 03-29-2022 Telephone encounter Rin Nicholson [facility] [place] Start: 03-27-2022 End: 03-28-[address] RIN NICHOLSON Facility:[facility] Start: 02-08-2022 End: 02-08-2022 ambulatory Rin Nicholson Other [facility] Other Start: 02-08-2022 Office outpatient vi sit 25 minutes Rin Nicholson [facility] [place] Start: 01-22-2022 End: 01-23-[address] RIN NICHOLSON Facility:[facility] Start: 08-23-2018 End: 08-25-2018 Evaluation and management of inpatient PROVIDER UNKNOWN [facility] Start: 05-11-2018 Patient encounter procedure Selin Jean [...] [id number] #### [facility] [address] Immunizations Immunization Date Immunization Notes Care Provider Fa hunter 04-26-2023 Prevnar 20 Rin Nicholson Other [facility] Other 04-08-2023 COVID-19 Moderna (SPIKEVAX) Rin Nicholson Other [facility] Other 04-08-2023 zoster vaccine recombinant Rin Nicholson Other [facility] Other 03-22-2023 Flu Shot - Documentation Purposes Only Rin Nicholson Other [facility] Other 02-08-2022 Shingrix 50 MCG/0.5M L; 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: [Shingrix 50 MCG/0.5ML] Rin Nicholson Other [facility] Other 01-15-2022 influenza, seasonal, injectable Rin Nicholson Other [facility] Other 01-15-2022 COVID-19 Pfizer (bivalent) Rin iNcholson Other [facility] Other 07-31-2021 COVID-19 Vaccine Moderna - Documentation Purposes Only Rin Nicholson Other [facility] Other 02-20-2021 COVID-19 Vaccine Moderna - Documentation Purposes Only Rin Nicholson Other [facility] Other 07-26-2020 COVID-19 Brittany Romero n Other [facility] Other 06-28-2020 COVID-19 Brittany Romero n Other [facility] Other 02-18-2020 influenza, seasonal, injectable Rin Kesslerbaljit Other [facility] Other 02-19-2017 influenza, seasonal, injectable Rin Lyn Other [facility] Other 03-08-2016 influenza, seasonal, injectable Rin Kesslerbaljit Other [facility] Other 05-07-2013 influenza virus vaccine, split virus (incl. purified surface antigen) Rin Nicholson Other [facility] Other 03-24-2012 influenza, seasonal, injectable, preservative free Rin Nicholson Other [facility] Other Payers Date Payer Category Payer Self-pay [id number] 2023 Unknown [id number] 2022 Medicare [id number] 2.1 [id number] 1959 Unknown [id number] 1955 Unknown [id number] 2.16. [id number] 1955 Unknown [id number] 2.16. [id number] 1955 Unknown [id number] 2.16. [id number] 1955 Unknown [id number] 2.16. [id number] 1955 Unknown [id number] 2.16.8 [id number] 1955 Unknown [id number] 2.16.84 [id number] 1955 Unknown [id number] 2.16.84 [id number] 1955 Unknown [id number] 2.16.84 [id number] 1955 Unknown [id number] 2.16.84 [id number] 1955 Unknown [id number] 2.16.84 [id number] 1955 Unknown [id number] 2.16.84 [id number] Unknown [id number] Unknown [id number] 2.16.8 [id number] Social History Date Type Detail Facility Unknown if ever smoked [facility] Other Sex Assigned At Sex Assigned At Bir th [facility] Other Start: 1955 Sex Assigned At Female F [facility] Start: 06-02-2020 Tobacco smoking status NHIS Never smoked tobacco (finding) [facility] Medical Equipment Procedure Code Equipment Code Equipment Origin al Text Equipment Identifier Dates One Touch Lancet s lancets Start: 12-24-2011 Clinical Notes 02-11-2019 to 05-03-2023 Note Date & Type Note Facility 05-03-2023 Evaluation note Encounter Date Diagnosis Assessment Notes Apr, GERD (gastroesop hageal reflux disease) (ICD-10 - K21.9) [facility] Other 2023 Evaluation note* Encounter Date Diagnosis Assessment Notes Treatment Notes Treatment Clinical Notes Mar, Abnormal blood chemistry (ICD-10 - R79.9) Mar, Hypercalcemia (ICD-1 0 - E83.52) Mar, Stage 3a chronic kidney disease (ICD-10 - N18.31) [facility] Other 06-09-2023 Evaluation note* Encounter Date Diagnosis [...] see where her kidney studies are at. [facility] Other 04-24-2023 Evaluation note* Encounter Date Diagnosis [...] results. She may have to see the doors prefitter again but we will wait and see [...] ice the shoulder or alternate with heat. [facility] Other 01-05-2023 Evaluation note* Encounter Date Diagnosis Assessment Notes Treatment Notes Treatment Clinical Notes Apr, Hypertension (ICD-10 - I10) [facility] Other 10-24-2022 Evaluation note* Encounter Date Diagnosis [...] this. She does agree to see an e business specialist. A referral is provided. Her range [...] her wi th an order for a ShinVoicendo vaccine [facility] Other 02-01-2021 History general Narrative - Reported* Type Description Date Medical History Stress Test; [facility] [place], normal per patient Medical History Pap and Pelvic 3 yea rs ago, OBGYN in [place] Medical History Mammogram over 5 yea rs; Normal at that time per patient Medical History CT Abdomen and Pelvi s over 5 years ago; [facility] Medical History Colonoscopy 8 years ago; in [place], normal in patient Medical History Chest X-Ray 12-15-11; normal, [facility] Medical History Echocardiogram; 12-15; [facility] Medical History Cardiolite Stress Te st 12-16-11; [facility] Medical History Check's sugar's bid Medical History Heart Catherization; [facility] Medical History breast cancer 04/2014 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, status post lumpectomy x2, sentinel lymph node biopsy and adjuvant radiotherapy that concluded on 08-21-14 Medical History 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 - Dr French from [facility] Surgical History Tonsillectomy age 21 Surgical History ovarian tumor removed and left ovary Surgical History complete hysterectomy 1993 Surgical History Heart Catherization; [facility] Surgical History Right Shoulder Tear and bone spur removal; [facility] 07-27-12 Surgical History Left Shoulder [...] overy Hospitalization History complete hysterectomy 19 94 [facility] Other 01-19-2021 History general Narrative - Reported* Type Description Date Medical History Stress Test; [facility], normal per patient Medical History Pap and Pelvic 3 yea rs ago, OBGYN in [place] Medical History Mammogram over 5 yea rs; Normal at that time per patient Medical History CT Abdomen and Pelvi s over 5 years ago; [facility] Medical History Colonoscopy 8 years ago; in [place], normal in patient Medical History Chest X-Ray 12-15-11; normal, [facility] Medical History Echocardiogram; 12-15; [facility] Medical History Cardiolite Stress Te st 12-16-11; [facility] Medical History Check's sugar's bid Medical History Heart Catherization; [facility] Medical History breast cancer 04/2014 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, status post lumpectomy x2, sentinel lymph node biopsy and adjuvant radiotherapy that concluded on 08-21-14 Medical History 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 - Dr French from [facility] Surgical History Tonsillectomy age 21 Surgical History ovarian tumor removed and left ovary Surgical History complete hysterectomy 1993 Surgical History Heart Catherization; [facility] Surgical History Right Shoulder Tear and bone spur removal; [facility] 07-27-12 Surgical History Left Shoulder [...] overy Hospitalization History complete hysterectomy 19 94 [facility] Other 12-27-2020 History general Narrative - Reported* Type Description Date Medical History Stress Test; [facility], normal per patient Medical History Pap and Pelvic 3 yea rs ago, OBGYN in [place] Medical History Mammogram over 5 yea rs; Normal at that time per patient Medical History CT Abdomen and Pelvi s over 5 years ago; [facility] Medical History Colonoscopy 8 years ago; in [place], normal in patient Medical History Chest X-Ray 12-15-11; normal, [facility] Medical History Echocardiogram; 12-15; [facility] Medical History Cardiolite Stress Te st 12-16-11; [facility] Medical History Check's sugar's bid Medical History Heart Catherization; [facility] Medical History breast cancer 04/2014 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, status post lumpectomy x2, sentinel lymph node biopsy and adjuvant radiotherapy that concluded on 08-21-14 Medical History 11/2016 diabetic shif ting in rt eye - Dr French from [facility] Surgical History Tonsillectomy age 21 Surgical History ovarian tumor removed and left ovary Surgical History complete hysterectomy 1993 Surgical History Heart Catherization; [facility] Surgical History Right Shoulder Tear and bone spur removal; [facility] 07-27-12 Surgical History Left Shoulder [...] overy Hospitalization History complete hysterectomy 19 94 [facility] 12-20-2020 History general Narrative - Reported* Type Description Date Medical History Stress Test; [facility], normal per patient Medical History Pap and Pelvic 3 yea rs ago, OBGYN in [place] Medical History Mammogram over 5 yea rs; Normal at that time per patient Medical History CT Abdomen and Pelvi s over 5 years ago; [facility] Medical History Colonoscopy 8 years ago; in [place], normal in patient Medical History Chest X-Ray 12-15-11; normal, [facility] Medical History Echocardiogram; 12-15; [facility] Medical History Cardiolite Stress Te st 12-16-11; [facility] Medical History Check's sugar's bid Medical History Heart Catherization; [facility] Medical History breast cancer 04/2014 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, status post lumpectomy x2, sentinel lymph node biopsy and adjuvant radiotherapy that concluded on 08-21-14 Medical History 11/2016 diabetic shif ting in rt eye - Dr French from [facility] Surgical History Tonsillectomy age 21 Surgical History ovarian tumor removed and left ovary Surgical History complete hysterectomy 1993 Surgical History Heart Catherization; [facility] Surgical History Right Shoulder Tear and bone spur removal; [facility] 07-27-12 Surgical History Left Shoulder [...] d left overy Hospitalization History complete hysterectomy [facility] 12-04-2020 History general Narrative - Reported* Type Description Date Medical History Stress Test; [facility], normal per patient Medical History Pap and Pelvic 3 yea rs ago, OBGYN in [place] Medical History Mammogram over 5 yea rs; Normal at that time per patient Medical History CT Abdomen and Pelvi s over 5 years ago; [facility] Medical History Colonoscopy 8 years ago; in [place], normal in patient Medical History Chest X-Ray 12-15-11; normal, [facility] Medical History Echocardiogram; 12-15; [facility] Medical History Cardiolite Stress Te st 12-16-11; [facility] Medical History Check's sugar's bid Medical History Heart Catherization; [facility] Medical History breast cancer 04/2014 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, status post lumpectomy x2, sentinel lymph node biopsy and adjuvant radiotherapy that concluded on 08-21-14 Medical History 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 - Dr French from [facility] Surgical History Tonsillectomy age 21 Surgical History ovarian tumor removed and left ovary Surgical History complete hysterectomy 1993 Surgical History Heart Catherization; [facility] Surgical History Right Shoulder Tear and bone spur removal; [facility] 07-27-12 Surgical History Left Shoulder [...] d left overy Hospitalization History complete hysterectomy [facility] 11-08-2020 History general Narrative - Reported* Type Description Date Medical History Stress Test; [facility], normal per patient Medical History Pap and Pelvic 3 yea rs ago, OBGYN in [place] Medical History Mammogram over 5 yea rs; Normal at that time per patient Medical History CT Abdomen and Pelvi s over 5 years ago; [facility] Medical History Colonoscopy 8 years ago; in [place], normal in patient Medical History Chest X-Ray 12-15-11; normal, [facility] Medical History Echocardiogram; 12-15; [facility] Medical History Cardiolite Stress Te st 12-16-11; [facility] Medical History Check's sugar's bid Medical History Heart Catherization; [facility] Medical History breast cancer 04/2014 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, status post lumpectomy x2, sentinel lymph node biopsy and adjuvant radiotherapy that concluded on 08-21-14 Medical History 11/2016 diabetic shif ting in rt eye - Dr French from [facility] Surgical History Tonsillectomy age 21 Surgical History ovarian tumor removed and left ovary Surgical History complete hysterectomy 1993 Surgical History Heart Catherization; [facility] Surgical History Right Shoulder Tear and bone spur removal; [facility] 07-27-12 Surgical History Left Shoulder [...] d left overy Hospitalization History complete hysterectomy [facility] Other 06-20-2020 History general Narrative - Reported* Type Description Date Medical History Stress Test; [facility] [place], normal per patient Medical History Pap and Pelvic 3 yea rs ago, OBGYN in [place] Medical History Mammogram over 5 yea rs; Normal at that time per patient Medical History CT Abdomen and Pelvi s over 5 years ago; [facility] Medical History Colonoscopy 8 years ago; in [place], normal in patient Medical History Chest X-Ray 12-15-11; normal, [facility] Medical History Echocardiogram; 12-15; [facility] Medical History Cardiolite Stress Te st 12-16-11; [facility] Medical History Check's sugar's bid Medical History Heart Catherization; [facility] Medical History breast cancer 04/2014 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, status post lumpectomy x2, sentinel lymph node biopsy and adjuvant radiotherapy that concluded on 08-21-14 Medical History 11/2016 diabetic shif ting in rt eye - Dr French from [facility] Surgical History Tonsillectomy age 21 Surgical History ovarian tumor removed and left ovary Surgical History complete hysterectomy 1993 Surgical History Heart Catherization; [facility] Surgical History Right Shoulder Tear and bone spur removal; [facility] 07-27-12 Surgical History Left Shoulder [...] overy Hospitalization History complete hysterectomy 19 94 [facility] Other 05-03-2020 History general Narrative - Reported* Type Description Date Medical History Stress Test; [facility] [place], normal per patient Medical History Pap and Pelvic 3 yea rs ago, OBGYN in [place] Medical History Mammogram over 5 yea rs; Normal at that time per patient Medical History CT Abdomen and Pelvi s over 5 years ago; [facility] Medical History Colonoscopy 8 years ago; in [place], normal in patient Medical History Chest X-Ray 12-15-11; normal, [facility] Medical History Echocardiogram; 12-15; [facility] Medical History Cardiolite Stress Te st 12-16-11; [facility] Medical History Check's sugar's bid Medical History Heart Catherization; [facility] Medical History breast cancer 04/2014 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, status post lumpectomy x2, sentinel lymph node biopsy and adjuvant radiotherapy that concluded on 08-21-14 Medical History 11/2016 diabetic shif ting in rt eye - Dr French from [facility] Surgical History Tonsillectomy age 21 Surgical History ovarian tumor removed and left ovary Surgical History complete hysterectomy 1993 Surgical History Heart Catherization; [facility] Surgical History Right Shoulder Tear and bone spur removal; [facility] 07-27-12 Surgical History Left Shoulder [...] overy Hospitalization History complete hysterectomy 19 94 [facility] Other 04-26-2020 History general Narrative - Reported* Type Description Date Medical History Stress Test; [facility] [place], normal per patient Medical History Pap and Pelvic 3 yea rs ago, OBGYN in [place] Medical History Mammogram over 5 yea rs; Normal at that time per patient Medical History CT Abdomen and Pelvi s over 5 years ago; [facility] Medical History Colonoscopy 8 years ago; in [place], normal in patient Medical History Chest X-Ray 12-15-11; normal, [facility] Medical History Echocardiogram; 12-15; [facility] Medical History Cardiolite Stress Te st 12-16-11; [facility] Medical History Check's sugar's bid Medical History Heart Catherization; [facility] Medical History breast cancer 04/2014 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, status post lumpectomy x2, sentinel lymph node biopsy and adjuvant radiotherapy that concluded on 08-21-14 Medical History 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 - Dr French from [facility] Surgical History Tonsillectomy age 21 Surgical History ovarian tumor removed and left ovary Surgical History complete hysterectomy 1993 Surgical History Heart Catherization; [facility] Surgical History Right Shoulder Tear and bone spur removal; [facility] 07-27-12 Surgical History Left Shoulder [...] overy Hospitalization History complete hysterectomy 19 94 [facility] Other 04-21-2020 History general Narrative - Reported* Type Description Date Medical History Stress Test; [facility] [place], normal per patient Medical History Pap and Pelvic 3 yea rs ago, OBGYN in [place] Medical History Mammogram over 5 yea rs; Normal at that time per patient Medical History CT Abdomen and Pelvi s over 5 years ago; [facility] Medical History Colonoscopy 8 years ago; in [place], normal in patient Medical History Chest X-Ray 12-15-11; normal, [facility] Medical History Echocardiogram; 12-15; [facility] Medical History Cardiolite Stress Te st 12-16-11; [facility] Medical History Check's sugar's bid Medical History Heart Catherization; [facility] Medical History breast cancer 04/2014 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, status post lumpectomy x2, sentinel lymph node biopsy and adjuvant radiotherapy that concluded on 08-21-14 Medical History 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 - Dr French from [facility] Surgical History Tonsillectomy age 21 Surgical History ovarian tumor removed and left ovary Surgical History complete hysterectomy 1993 Surgical History Heart Catherization; [facility] Surgical History Right Shoulder Tear and bone spur removal; [facility] 07-27-12 Surgical History Left Shoulder [...] overy Hospitalization History complete hysterectomy 19 94 [facility] Other 03-12-2020 History general Narrative - Reported* Type Description Date Medical History Stress Test; [facility] [place], normal per patient Medical History Pap and Pelvic 3 yea rs ago, OBGYN in [place] Medical History Mammogram over 5 yea rs; Normal at that time per patient Medical History CT Abdomen and Pelvi s over 5 years ago; [facility] Medical History Colonoscopy 8 years ago; in [place], normal in patient Medical History Chest X-Ray 12-15-11; normal, [facility] Medical History Echocardiogram; 12-15; [facility] Medical History Cardiolite Stress Te st 12-16-11; [facility] Medical History Check's sugar's bid Medical History Heart Catherization; [facility] Medical History breast cancer 04/2014 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, status post lumpectomy x2, sentinel lymph node biopsy and adjuvant radiotherapy that concluded on 08-21-14 Medical History 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 - Dr French from [facility] Surgical History Tonsillectomy age 21 Surgical History ovarian tumor removed and left ovary Surgical History complete hysterectomy 1993 Surgical History Heart Catherization; [facility] Surgical History Right Shoulder Tear and bone spur removal; [facility] 07-27-12 Surgical History Left Shoulder [...] overy Hospitalization History complete hysterectomy 19 94 [facility] Other 03-07-2020 History general Narrative - Reported* Type Description Date Medical History Stress Test; [facility] [place], normal per patient Medical History Pap and Pelvic 3 yea rs ago, OBGYN in [place] Medical History Mammogram over 5 yea rs; Normal at that time per patient Medical History CT Abdomen and Pelvi s over 5 years ago; [facility] Medical History Colonoscopy 8 years ago; in [place], normal in patient Medical History Chest X-Ray 12-15-11; normal, [facility] Medical History Echocardiogram; 12-15; [facility] Medical History Cardiolite Stress Te st 12-16-11; [facility] Medical History Check's sugar's bid Medical History Heart Catherization; [facility] Medical History breast cancer 04/2014 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, status post lumpectomy x2, sentinel lymph node biopsy and adjuvant radiotherapy that concluded on 08-21-14 Medical History 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 - Dr French from [facility] Surgical History Tonsillectomy age 21 Surgical History ovarian tumor removed and left ovary Surgical History complete hysterectomy 1993 Surgical History Heart Catherization; [facility] Surgical History Right Shoulder Tear and bone spur removal; [facility] 07-27-12 Surgical History Left Shoulder [...] overy Hospitalization History complete hysterectomy 19 94 [facility] Other 03-04-2020 History general Narrative - Reported* Type Description Date Medical History Stress Test; [facility] [place], normal per patient Medical History Pap and Pelvic 3 yea rs ago, OBGYN in [place] Medical History Mammogram over 5 yea rs; Normal at that time per patient Medical History CT Abdomen and Pelvi s over 5 years ago; [facility] Medical History Colonoscopy 8 years ago; in [place], normal in patient Medical History Chest X-Ray 12-15-11; normal, [facility] Medical History Echocardiogram; 12-15; [facility] Medical History Cardiolite Stress Te st 12-16-11; [facility] Medical History Check's sugar's bid Medical History Heart Catherization; [facility] Medical History breast cancer 04/2014 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, status post lumpectomy x2, sentinel lymph node biopsy and adjuvant radiotherapy that concluded on 08-21-14 Medical History 11/2016 diabetic shif ting in rt eye - Dr French from [facility] Surgical History Tonsillectomy age 21 Surgical History ovarian tumor removed and left ovary Surgical History complete hysterectomy 1993 Surgical History Heart Catherization; [facility] Surgical History Right Shoulder Tear and bone spur removal; [facility] 07-27-12 Surgical History Left Shoulder [...] overy Hospitalization History complete hysterectomy 19 94 [facility] Other 02-22-2020 History general Narrative - Reported* Type Description Date Medical History Stress Test; [facility] [place], normal per patient Medical History Pap and Pelvic 3 yea rs ago, OBGYN in [place] Medical History Mammogram over 5 yea rs; Normal at that time per patient Medical History CT Abdomen and Pelvi s over 5 years ago; [facility] Medical History Colonoscopy 8 years ago; in [place], normal in patient Medical History Chest X-Ray 12-15-11; normal, [facility] Medical History Echocardiogram; 12-15; [facility] Medical History Cardiolite Stress Te st 12-16-11; [facility] Medical History Check's sugar's bid Medical History Heart Catherization; [facility] Medical History breast cancer 04/2014 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, status post lumpectomy x2, sentinel lymph node biopsy and adjuvant radiotherapy that concluded on 08-21-14 Medical History 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 - Dr French from [facility] Surgical History Tonsillectomy age 21 Surgical History ovarian tumor removed and left ovary Surgical History complete hysterectomy 1993 Surgical History Heart Catherization; [facility] Surgical History Right Shoulder Tear and bone spur removal; [facility] 07-27-12 Surgical History Left Shoulder [...] d left overy Hospitalization History complete hysterectomy [facility] Other 02-12-2020 History general Narrative - Reported* Type Description Date Medical History Stress Test; [facility] [place], normal per patient Medical History Pap and Pelvic 3 yea rs ago, OBGYN in [place] Medical History Mammogram over 5 yea rs; Normal at that time per patient Medical History CT Abdomen and Pelvi s over 5 years ago; [facility] Medical History Colonoscopy 8 years ago; in [place], normal in patient Medical History Chest X-Ray 12-15-11; normal, [facility] Medical History Echocardiogram; 12-15; [facility] Medical History Cardiolite Stress Te st 12-16-11; [facility] Medical History Check's sugar's bid Medical History Heart Catherization; [facility] Medical History breast cancer 04/2014 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, status post lumpectomy x2, sentinel lymph node biopsy and adjuvant radiotherapy that concluded on 08-21-14 Medical History 11/2016 diabetic shif ting in rt eye - Dr French from [facility] Surgical History Tonsillectomy age 21 Surgical History ovarian tumor removed and left ovary Surgical History complete hysterectomy 1993 Surgical History Heart Catherization; [facility] Surgical History Right Shoulder Tear and bone spur removal; [facility] 07-27-12 Surgical History Left Shoulder [...] d left overy Hospitalization History complete hysterectomy [facility] N(i)² Other 10-27-2019 History general Narrative - Reported* Type Description Date Medical History Stress Test; [facility] [place], normal per patient Medical History Pap and Pelvic 3 yea rs ago, OBGYN in [place] Medical History Mammogram over 5 yea rs; Normal at that time per patient Medical History CT Abdomen and Pelvi s over 5 years ago; [facility] Medical History Colonoscopy 8 years ago; in [place], normal in patient Medical History Chest X-Ray 12-15-11; normal, [facility] Medical History Echocardiogram; 12-15; [facility] Medical History Cardiolite Stress Te st 12-16-11; [facility] Medical History Check's sugar's bid Medical History Heart Catherization; [facility] Medical History breast cancer 04/2014 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, status post lumpectomy x2, sentinel lymph node biopsy and adjuvant radiotherapy that concluded on 08-21-14 Medical History 11/2016 diabetic shif ting in rt eye - Dr French from [facility] Surgical History Tonsillectomy age 21 Surgical History ovarian tumor removed and left ovary Surgical History complete hysterectomy 1993 Surgical History Heart Catherization; [facility] Surgical History Right Shoulder Tear and bone spur removal; [facility] 07-27-12 Surgical History Left Shoulder [...] left overy Hospitalization History complete hysterectomy 94 [facility] Other Evaluation noteNo InformationNort [employer] Other Evaluation noteNo assessment information available [facility] Work Phone: Reason for referral (narrative)* Reason appt pt needs cons ult w/ Dr. Cornejo or Viki for evaluation of right shoulder pain Diagnosis 1 Shoulder pain, right (M25.511) Referral Organization [facility] Referring Provider First Name Rin Referring Provider Last Name Lyn Referring Provider Specialty Family Prac meenu Referred Organization [facility] Referred Address ,[place], [place],[address] Referred Provider Specialty Orthopedic S urgery Referral Priority Routine General Notes HoracioFlorinda 02/08/2022 05:31:28 PM > Access [facility] referral form hard faxed with visit note, med list and insurance card. pt understands she will be contacted to schedule this appt. [facility] Other Summary Purpose Family History Relationship Condition Age at Onset Recorded Date/T rob father Pulmonary emphysema Unknown Not Specified Cerebrovascular accident (CVA) Unknown Advance Directives Advance Directive Response Recorded Date/ Time Advance Directives No February 15, 2017 3:18pm Hospital Course Note MR#: [id number] I [facility] Pt. Name: Criselda Morfin Admitted: 08/23/2018 [...] CREATED AUTHOR AUTHOR'S ORGANIZ ATION 12/09/2018 [facility] DATE CREATED AUTHOR AUTHOR'S ORGANIZ ATION 08/31/2022 [facility] DATE CREATED AUTHOR AUTHOR'S ORGANIZ ATION 05/07/2023 [facility] REASON FOR VISIT (unrecogniz ed section and [...] BE BASED ON THE PRIMARY CLINICAL RECORDS. [employer] provides no warranty or guarantee of the accuracy or completeness of information in this document.
== END 2024-02-09 07:49 | disposition home or self-care (01) ==
LOC: US 07:48
PROVIDERS: PCP Family Medicine; Visit Provider Internal Medicine Nephrology
DX: I12.9 Hypertensive chronic kidney disease with stage 1 through stage 4 chronic kidney disease, or unspecified chronic kidney disease (principal); N18.9 Chronic kidney disease, unspecified; D63.1 Anemia in chronic kidney disease; E11.21 Type 2 diabetes mellitus with diabetic nephropathy; N18.32 Chronic kidney disease, stage 3b; E05.90 Thyrotoxicosis, unspecified without thyrotoxic crisis or storm; N20.0 Calculus of kidney
CPT/HCPCS: 76775

== ENCOUNTER 2024-02-22 07:40 | Outpatient (OUT) | payer OTHER, SELFPAY ==
--- OUTSIDE RECORDS SUMMARY | 2024-02-22 07:47 | XMS_ITS | CCD ---
Author Organization [facility] Care Team Providers Care Senior Relationship Manager Name Role Phone Selin Jaen Attending Unavailable Ted, Selin Pastor Attending Unavailable CHUCHO HONEYCUTT Attending Unavailable Ted, Selin Pastor Attending Unavailable UNKNOWN, PROVIDER Admitting Unavailable SELF, REFERRED Referring Unavailable SELF, REFERRED Primary Care Unavailable CHIP CEDILLO Attending Unavailable ID Procedure Practitioner Unavailab le UNKNOWN, PROVIDER Surgeon [...] 1 tablet by mouth once daily Vitamin [id number] Acid Active 1 TAB PO Daily May [...] kidney disease Other aftercare (1 source) Other halfway (current) drug therapy; 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: [OTH GROUP HOME CURRENT DRUG THERAPY] Onset: 05-03-2022 Episodic Other 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; 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: [GROUP HOME USE ORAL HYPOGLYCEMIC DX] Onset: 05-03-2022 Episodic Pneumonia (except that caused by tuberculosis or sexually transmitted disease) (1 source) Bronchopneumonia, unspecified organism; 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: [BRONCHOPNEUMONIA UNS ORGANISM] Onset: 05-03-2022 Episodic Unclassified (1 source) COUGH, UNSPECIFIED; 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: [COUGH, UNSPECIFIED] Onset: 04-30-2022 Results Test Name Value Interpretation Reference Range Facility MM screening mammo BI w/CADo n 05-03-2023 MM screening mammo BI w/CAD [facility] [place] [address] [place] [address] Mammography Report Signed Patient: Leslee Morfin MR#: [id number] : 1955 Acct:[id number] Age/Sex: 67 / F ADM Date: 05/03/23 Loc: [place] Room: Type: [facility] Attending Dr: Rin Nicholson DO Copies [...] Carmela Cuevas M.D.05/03/2023 1:52 PM Dictation Location: [facility] Transcribed By: [facility] 05/03/23 1352 Dictated By: Carmela Cuevas MD 05/03/23 1349 Signed By: 05/03/23 1352 [facility] PROF CHEM 8 (BAS METB)on Anion gap [Moles/Vol] 14.4 mmol/L Normal [facility] Comment on above: Performed By: #### B MP #### [facility] [address] [place] [address] Dr. Raf Pearl Calcium [Mass/Vol] 9.3 mg/dL Normal 8.5-10.1 [facility] Comment on above: Performed By: #### B MP #### [facility] [address] [address] [address] Raf Pearl Chloride [Moles/Vol] 102 mmol/L Normal 98-107 [facility] Comment on above: Performed By: #### B MP #### [facility] [address] [address] [address] Raf Pearl CO2 [Moles/Vol] 26.9 mmol/L Normal 21.0-32.0 [facility] Comment on above: Performed By: #### B MP #### [facility] [address] [address] [address] Raf Pearl Creatinine [Mass/Vol] 1.32 mg/dL Critically high 0.55-1.02 [facility] Comment on above: Performed By: #### B MP #### [facility] [address] [place] [address] Dr. Raf Pearl EGFR-AF SPANISH 49 mL/min/1.73m2 Critically low >=60 [facility] Comment on above: Performed By: #### B MP #### [facility] [address] [place] [address] Dr. Raf Pearl EGFR-NON AF SPANISH 40 mL/min/1.73m2 Critically low >=60 [facility] Comment on above: Performed By: #### B MP #### [facility] [address] [address] [address] Raf Pearl Glucose [Mass/Vol] 151 mg/dL Critically high 74-106 [facility] Comment on above: Performed By: #### B MP #### [facility] [address] [address] [address] Raf Pearl Potassium [Moles/Vol] 4.3 mmol/L Normal 3.5-5.1 [facility] Comment on above: Performed By: #### B MP #### [facility] [address] [address] [address] Raf Pearl Sodium [Moles/Vol] 139 mmol/L Normal 136-145 [facility] Comment on above: Performed By: #### B MP #### [facility] [address] [address] [address] Raf Pearl Urea nitrogen [Mass/Vol] 17.0 mg/dL Normal 7.0-18.0 [facility] Comment on above: Performed By: #### B MP #### [facility] [address] [address] [address] Raf Pearl Urea nitrogen/Creatinine [Mass ratio] 12.9 mg/mg Normal [facility] Comment on above: Performed By: #### B MP #### [facility] [address] [address] [address] Raf Pearl PROF CHEM 8 (BAS METB)on Anion gap [Moles/Vol] 9.7 mmol/L Normal [facility] Comment on above: Performed By: #### B MP #### [facility] [address] [address] [address] Raf Pearl Calcium [Mass/Vol] 9.1 mg/dL Normal 8.5-10.1 [facility] Comment on above: Performed By: #### B MP #### [facility] [address] [address] [address] Raf Pearl Chloride [Moles/Vol] 100 mmol/L Normal 98-107 [facility] Comment on above: Performed By: #### B MP #### [facility] [address] [address] [address] Raf Pearl CO2 [Moles/Vol] 28.0 mmol/L Normal 21.0-32.0 [facility] Comment on above: Performed By: #### B MP #### [facility] [address] [address] [address] Raf Pearl Creatinine [Mass/Vol] 1.18 mg/dL Critically high 0.55-1.02 [facility] Comment on above: Performed By: #### B MP #### [facility] [address] [place] [address] Dr. Raf Pearl EGFR-AF SPANISH 56 mL/min/1.73m2 Critically low >=60 [facility] Comment on above: Performed By: #### B MP #### [facility] [address] [place] [address] Dr. Raf Pearl EGFR-NON AF SPANISH 46 mL/min/1.73m2 Critically low >=60 [facility] Comment on above: Performed By: #### B MP #### [facility] [address] [place] [address] Dr. Raf Pearl Glucose [Mass/Vol] 113 mg/dL Critically high 74-106 [facility] Comment on above: Performed By: #### B MP #### [facility] [address] [address] [address] Raf Pearl Potassium [Moles/Vol] 3.7 mmol/L Normal 3.5-5.1 [facility] Comment on above: Performed By: #### B MP #### [facility] [address] [place] [address] Dr. Raf Pearl Sodium [Moles/Vol] 134 mmol/L Critically low 136-145 [facility] Comment on above: Performed By: #### B MP #### [facility] [address] [place] [address] Dr. Raf Pearl Urea nitrogen [Mass/Vol] 13.0 mg/dL Normal 7.0-18.0 [facility] Comment on above: Performed By: #### B MP #### [facility] [address] [place] [address] Dr. Raf Pearl Urea nitrogen/Creatinine [Mass ratio] 11.0 mg/mg Normal [facility] Comment on above: Performed By: #### B MP #### [facility] [address] [place] [address] Dr. Raf Pearl FOLATE ([facility])on 3 Folate >20.0 Normal >3.[address] [facility] Comment on above: Result Comment: A se rum folate concentration of less than 3.1 ng/mL is considered to represent clinical deficiency. Performed By: #### F OLALC #### [facility] [address] [place] [address] Dr. Raf Pearl CBC AUTO DIFFon 07-31-2022 BASO # 0.1 103/ul Normal 0.0-0.1 [facility] Comment on above: Performed By: #### M ALBR #### [facility] [address] [place] [address] Dr. Raf Pearl Basophils/100 WBC (Bld) 1.3 % Normal 0.2-2.0 [facility] Comment on above: Performed By: #### M ALBR #### [facility] [address] [place] [address] Dr. Raf Pearl EO # 0.4 103/ul Normal 0.0-0.[address] [facility] Comment on above: Performed By: #### M ALBR #### [facility] [address] [place] [address] Dr. Raf Pearl Eosinophils/100 WBC (Bld) 4.5 % Normal 0.9-7.[address] [facility] Comment on above: Performed By: #### M ALBR #### [facility] [address] [place] [address] Dr. Raf Pearl Erythrocyte distribution width (RBC) [Ratio] 13.2 % Normal 11.0-15.0 [facility] Comment on above: Performed By: #### M ALBR #### [facility] [address] [place] [address] Dr. Raf Pearl Hematocrit (Bld) [Volume fraction] 33.8 % Critically low 36.0-48.0 [facility] Comment on above: Performed By: #### M ALBR #### [facility] [address] [place] [address] Dr. Raf Pearl Hemoglobin (Bld) [Mass/Vol] 11.5 g/dL Critically low 12.0-16.0 [facility] Comment on above: Performed By: #### M ALBR #### [facility] [address] [place] [address] Dr. Raf Pearl IG # 0.02 10e3/ul Normal 0.00-0.03 [facility] Comment on above: Performed By: #### M ALBR #### [facility] [address] [place] [address] Dr. Raf Pearl IG % 0.2 % Normal 0.0-0.5 [facility] Comment on above: Performed By: #### M ALBR #### [facility] [address] [place] [address] Dr. Raf Pearl LYMPH # 2.6 103/ul Normal 1.2-3.8 [facility] Comment on above: Performed By: #### M ALBR #### [facility] [address] [place] [address] Dr. Raf Pearl Lymphocytes/100 WBC (Bld) 31.6 % Normal 20.5-60.0 [facility] Comment on above: Performed By: #### M ALBR #### [facility] [address] [place] [address] Dr. Raf Pearl MANUAL DIFF REQ NO Normal [facility] Comment on above: Performed By: #### M ALBR #### [facility] [address] [place] [address] Dr. Raf Pearl MCH (RBC) [Entitic mass] 31.1 pg Normal 26.7-34.0 [facility] Comment on above: Performed By: #### M ALBR #### [facility] [address] [address] [address] Raf Pearl MCHC (RBC) [Mass/Vol] 34.0 g/dL Normal 29.9-35.2 [facility] Comment on above: Performed By: #### M ALBR #### [facility] [address] [place] [address] Dr. Raf Pearl MCV (RBC) [Entitic vol] 91.4 fL Normal 81.0-99.0 [facility] Comment on above: Performed By: #### M ALBR #### [facility] [address] [place] [address] Dr. Raf Pearl MONO # 0.6 103/ul Normal 0.3-0.8 [facility] Comment on above: Performed By: #### M ALBR #### [facility] [address] [place] [address] Dr. Raf Pearl Monocytes/100 WBC (Bld) 7.2 % Normal 1.7-12.0 [facility] Comment on above: Performed By: #### M ALBR #### [facility] [address] [place] [address] Dr. Raf Pearl NEUT # 4.6 103/ul Normal 1.4-6.5 [facility] Comment on above: Performed By: #### M ALBR #### [facility] [address] [place] [address] Dr. Raf Pearl Neutrophils/100 WBC (Bld) 55.2 % Normal 43.0-75.[address] [facility] Comment on above: Performed By: #### M ALBR #### [facility] [address] [place] [address] Dr. Raf Pearl Platelet mean volume (Bld) [Entitic vol] 10.0 fL Normal 9.5-13.[address] [facility] Comment on above: Performed By: #### M ALBR #### [facility] [address] [place] [address] Dr. Raf Pearl PLT 352 103/ul Normal 150-[address] [facility] Comment on above: Performed By: #### M ALBR #### [facility] [address] [address] [address] Raf Pearl RBC 3.70 106/ul Critically low 4.20-5.40 [facility] Comment on above: Performed By: #### M ALBR #### [facility] [address] [address] [address] Raf Pearl WBC 8.2 103/ul Normal 4.0-11.0 [facility] Comment on above: Performed By: #### M ALBR #### [facility] [address] [address] [address] Raf Pearl CULTURE URINEon 07-31-2022 CULTURE URINE Culture Observations: NO GROWTH. Normal [facility] Comment on above: Performed By: #### B MP #### [facility] [address] [place] [address] Dr. Raf Pearl GLYCOHEMOGLOBIN A1Con 2022 ADA RECOMMENDATION SEE BELOW Normal [facility] Comment on above: Result Comment: ADA RECOMMENDED LIMIT 4.0 - 6.0 ADA THERAPEUTIC TARGET < 7.0 ACTION SUGGESTED > 7.0 Performed By: #### B MP #### [facility] [address] [place] [address] Dr. Raf Pearl Glucose [Mass/Vol] 140 mg/dL Normal [facility] Comment on above: Performed By: #### B MP #### [facility] [address] [place] [address] Dr. Raf Pearl HbA1c (Bld) [Mass fraction] 6.5 % Critically high 4.5-6.2 [facility] Comment on above: Performed By: #### B MP #### [facility] [address] [place] [address] Dr. Raf Pearl LIPID PROFILEon 07-31-2022 CHOL-HDL RATIO NORM SEE BELOW Normal [facility] Comment on above: Result Comment: 3.3 - 4.4 LOW RISK 4.4 - 7.1 AVERAGE RISK 7.1 - 11.0 MODERATE RISK >11.0 HIGH RISK Performed By: #### C MP, LIPID, TSH #### [facility] [address] [address] [address] Raf Pearl Cholesterol [Mass/Vol] 166 mg/dL Normal <=[address] [facility] Comment on above: Performed By: #### C MP, LIPID, TSH #### [facility] [address] [address] [address] Raf Pearl Cholesterol in HDL [Mass/Vol] 57 mg/dL Normal 40-[address] [facility] Comment on above: Performed By: #### C MP, LIPID, TSH #### [facility] [address] [address] [address] Raf Pearl Cholesterol in LDL [Mass/Vol] 91.4 mg/dL Normal [facility] Comment on above: Performed By: #### C MP, LIPID, TSH #### [facility] [address] [address] [address] Raf Pearl Cholesterol.total/Ch olesterol in HDL [Mass ratio] 2.9 {ratio} Normal [facility] Comment on above: Performed By: #### C MP, LIPID, TSH #### [facility] [address] [address] [address] Raf Pearl HDL NORMAL > or = 60 mg/dl - LOW CARDIOVASCULAR RISK <40 mg/dl - HIGH CARDIOVASCULAR RISK Normal [facility] Comment on above: Performed By: #### C MP, LIPID, TSH #### [facility] [address] [address] [address] Raf Pearl LDL CALC NORMAL SEE BELOW Normal [facility] Comment on above: Result Comment: <100 mg/dl OPTIMAL 100 - 129 mg/dl NEAR OR ABOVE OPTIMAL 130 - 159 mg/dl BORDERLINE HIGH 160 - 189 mg/dl HIGH >190 mg/dl VERY HIGH Performed By: #### C MP, LIPID, TSH #### [facility] [address] [address] [address] Raf Pearl Triglyceride [Mass/Vol] 88 mg/dL Normal <=[address] [facility] Comment on above: Performed By: #### C MP, LIPID, TSH #### [facility] [address] [address] [address] Raf Pearl VLDL CALC 17.6 mg/dL Normal [facility] Comment on above: Performed By: #### C MP, LIPID, TSH #### [facility] [address] [place] [address] Dr. Raf Pearl MICROALBUMIN, RAND URon 07-17 mALB <1.3 Normal <=30.0 [facility] Comment on above: Performed By: #### M ALBR #### [facility] [address] [address] [address] Raf Pearl PROF 14(COMP METB)on 023 Albumin [Mass/Vol] 3.6 g/dL Normal 3.4-5.0 [facility] Comment on above: Performed By: #### C MP, LIPID, TSH #### [facility] [address] [place] [address] Dr. Raf Pearl Albumin/Globulin [Mass ratio] 1.0 {ratio} Normal [facility] Comment on above: Performed By: #### C MP, LIPID, TSH #### [facility] [address] [place] [address] Dr. Raf Pearl ALP [Catalytic activity/Vol] 70 U/L Normal 46-116 [facility] Comment on above: Performed By: #### C MP, LIPID, TSH #### [facility] [address] [place] [address] Dr. Raf Pearl ALT [Catalytic activity/Vol] 22 U/L Normal 14-59 [facility] Comment on above: Performed By: #### C MP, LIPID, TSH #### [facility] [address] [place] [address] Dr. Raf Pearl Anion gap [Moles/Vol] 11.8 mmol/L Normal [facility] Comment on above: Performed By: #### C MP, LIPID, TSH #### [facility] [address] [place] [address] Dr. Raf Pearl AST [Catalytic activity/Vol] 19 U/L Normal 15-37 [facility] Comment on above: Performed By: #### C MP, LIPID, TSH #### [facility] [address] [address] [address] Raf Pearl Bilirubin [Mass/Vol] 0.3 mg/dL Normal 0.2-1.0 [facility] Comment on above: Performed By: #### C MP, LIPID, TSH #### [facility] [address] [address] [address] Raf Pearl Calcium [Mass/Vol] 9.0 mg/dL Normal 8.5-10.1 [facility] Comment on above: Performed By: #### C MP, LIPID, TSH #### [facility] [address] [address] [address] Raf Pearl Chloride [Moles/Vol] 104 mmol/L Normal 98-107 [facility] Comment on above: Performed By: #### C MP, LIPID, TSH #### [facility] [address] [place] [address] Dr. Raf Pearl CO2 [Moles/Vol] 28.6 mmol/L Normal 21.0-32.0 [facility] Comment on above: Performed By: #### C MP, LIPID, TSH #### [facility] [address] [address] [address] Raf Pearl Creatinine [Mass/Vol] 1.48 mg/dL Critically high 0.55-1.02 [facility] Comment on above: Performed By: #### C MP, LIPID, TSH #### [facility] [address] [address] [address] Raf Pearl EGFR-AF SPANISH 43 mL/min/1.73m2 Critically low >=[address] [facility] Comment on above: Performed By: #### C MP, LIPID, TSH #### [facility] [address] [address] [address] Raf Pearl EGFR-NON AF SPANISH 35 mL/min/1.73m2 Critically low >=60 [facility] Comment on above: Performed By: #### C MP, LIPID, TSH #### [facility] [address] [address] [address] Raf Pearl Globulin (S) [Mass/Vol] 3.5 g/dL Normal [facility] Comment on above: Performed By: #### C MP, LIPID, TSH #### [facility] [address] [address] [address] Raf Pearl Glucose [Mass/Vol] 102 mg/dL Normal 74-106 [facility] Comment on above: Performed By: #### C MP, LIPID, TSH #### [facility] [address] [place] [address] Dr. Raf Pearl Potassium [Moles/Vol] 4.4 mmol/L Normal 3.5-5.1 [facility] Comment on above: Performed By: #### C MP, LIPID, TSH #### [facility] [address] [place] [address] Dr. Raf Pearl Protein [Mass/Vol] 7.1 g/dL Normal 6.4-8.2 [facility] Comment on above: Performed By: #### C MP, LIPID, TSH #### [facility] [address] [place] [address] Dr. Raf Pearl Sodium [Moles/Vol] 140 mmol/L Normal 136-145 [facility] Comment on above: Performed By: #### C MP, LIPID, TSH #### [facility] [address] [place] [address] Dr. Raf Pearl Urea nitrogen [Mass/Vol] 21.0 mg/dL Critically high 7.0-18.0 [facility] Comment on above: Performed By: #### C MP, LIPID, TSH #### [facility] [address] [place] [address] Dr. Raf Pearl Urea nitrogen/Creatinine [Mass ratio] 14.2 mg/mg Normal [facility] Comment on above: Performed By: #### C MP, LIPID, TSH #### [facility] [address] [place] [address] Dr. Raf Pearl TSHon 07-31-2022 TSH 2.298 uIU/mL Normal 0.358-3.740 [facility] Comment on above: Performed By: #### C MP, LIPID, TSH #### [facility] [address] [place] [address] Dr. Raf Pearl UA RANDOM W/MICROSCOPICon BACTERIA NONE SEEN Normal NONE SEEN [facility] Comment on above: Performed By: #### B MP #### [facility] [address] [place] [address] Dr. Raf Pearl Bilirubin Ql (U) Negative Normal NEGATIVE [facility] Comment on above: Performed By: #### B MP #### [facility] [address] [place] [address] Dr. Raf Pearl CAST NONE SEEN Normal NONE SEEN [facility] Comment on above: Performed By: #### B MP #### [facility] [address] [place] [address] Dr. Raf Pearl Clarity (U) CLEAR Normal CLEAR [facility] Comment on above: Performed By: #### B MP #### [facility] [address] [place] [address] Dr. Raf Pearl Color (U) LT. YELLOW Normal YELLOW [facility] Comment on above: Performed By: #### B MP #### [facility] [address] [place] [address] Dr. Raf Pearl Crystals LM Nom (Urine sed) NONE SEEN Normal NONE SEEN [facility] Comment on above: Performed By: #### B MP #### [facility] [address] [place] [address] Dr. Raf Pearl Epithelial cells LM Ql (Urine sed) NONE SEEN Normal NONE SEEN /RARE [facility] Comment on above: Performed By: #### B MP #### [facility] [address] [place] [address] Dr. Raf Pearl Glucose Ql (U) Negative Normal NEGATIVE [facility] Comment on above: Performed By: #### B MP #### [facility] [address] [place] [address] Dr. Raf Pearl Hemoglobin Ql (U) Negative Normal NEGATIVE [facility] Comment on above: Performed By: #### B MP #### [facility] [address] [place] [address] Dr. Raf Pearl Ketones Ql (U) Negative Normal NEGATIVE [facility] Comment on above: Performed By: #### B MP #### [facility] [address] [place] [address] Dr. Raf Pearl LEUKOCYTES Negative Normal NEGATIVE [facility] Comment on above: Performed By: #### B MP #### [facility] [address] [place] [address] Dr. Raf Pearl MUCOUS NONE SEEN Normal NONE SEEN [facility] Comment on above: Performed By: #### B MP #### [facility] [address] [place] [address] Dr. Raf Pearl Nitrite Ql (U) Negative Normal NEGATIVE [facility] Comment on above: Performed By: #### B MP #### [facility] [address] [place] [address] Dr. Raf Pearl pH (U) 7.0 [pH] Normal 5-9 [facility] Comment on above: Performed By: #### B MP #### [facility] [address] [place] [address] Dr. Raf Pearl RBC 0-2 Normal 0-2 [facility] Comment on above: Performed By: #### B MP #### [facility] [address] [place] [address] Dr. Raf Pearl SPEC GRAVITY <=1.005 Abnormal 1.005-<=1.025 [facility] Comment on above: Performed By: #### B MP #### [facility] [address] [place] [address] Dr. Raf Pearl UA PROTEIN Negative Normal NEGATIVE/ TRACE [facility] Comment on above: Performed By: #### B MP #### [facility] [address] [place] [address] Dr. Raf Pearl Urobilinogen Qn (U) 0.2 {[place]'U}/dL Normal 0.2 - 1. 0 [facility] Comment on above: Performed By: #### B MP #### [facility] [address] [place] [address] Dr. Raf Pearl WBC NONE SEEN Normal NONE SEEN [facility] Comment on above: Performed By: #### B MP #### [facility] [address] [address] [address] Raf Pearl VITAMIN B12on 07-31-2022 Cobalamin (Vitamin B12) [Mass/Vol] 600.0 pg/mL Normal 193.0-986.0 [facility] Comment on above: Performed By: #### B MP #### [facility] [address] [address] [address] Raf Pearl Covid-19 PCR ([facility])on 04-18 SARS-CoV-2 (COVID-19) RNA KHANH+probe Ql (Unsp spec) Not detected Normal NOT DETECTED [facility] Comment on above: Result Comment: When [...] for this test is supported by the [place] of [employer] and Human Service's declaration that [...] used). Performed By: #### C VDTBH #### [facility] [address] [place] [address] Dr. Raf Pearl INFLUENZA A AND B AGon 04-30 INFLUANEGH SEE BELOW Normal [facility] Comment on above: Result Comment: Nega tive for Flu A protein angiten. Infection due to Flu A cannot be ruled out. Flu A angiten in the sample may be below the detection limit of the test. Performed By: #### B MP #### [facility] [address] [address] [address] Raf Pearl INFLUBNEGH SEE BELOW Normal [facility] Comment on above: Result Comment: Nega tive for Flu B protein antigen. Infection due to Flu B cannot be ruled out. Flu B antigen in the sample may be below the detection limit of the test. Performed By: #### B MP #### [facility] [address] [place] [address] Dr. Raf Pearl INFLUENZA A AG Negative Normal NEGATIVE SEE COMMENT [facility] Comment on above: Performed By: #### B MP #### [facility] [address] [place] [address] Dr. Raf Pearl INFLUENZA B AG Negative Normal NEGATIVE SEE COMMENT [facility] Comment on above: Performed By: #### B MP #### [facility] [address] [place] [address] Dr. Raf Pearl XR CHEST 2 Von [...] BUDDY LEMOS Date: 2022-04-30 19:[address] [facility] PROF CHEM 8 (BAS METB)on Anion gap [Moles/Vol] 12.6 mmol/L Normal [facility] Comment on above: Performed By: #### B MP #### [facility] [address] [place] [address] Dr. Raf Pearl Calcium [Mass/Vol] 9.4 mg/dL Normal 8.5-10.1 [facility] Comment on above: Performed By: #### B MP #### [facility] [address] [place] [address] Dr. Raf Pearl Chloride [Moles/Vol] 99 mmol/L Normal 98-[address] [facility] Comment on above: Performed By: #### B MP #### [facility] [address] [place] [address] Dr. Raf Pearl CO2 [Moles/Vol] 29.3 mmol/L Normal 21.0-32.0 [facility] Comment on above: Performed By: #### B MP #### [facility] [address] [address] [address] Raf Pearl Creatinine [Mass/Vol] 1.15 mg/dL Critically high 0.55-1.02 [facility] Comment on above: Performed By: #### B MP #### [facility] [address] [address] [address] Raf Pearl EGFR-AF SPANISH 57 mL/min/1.73m2 Critically low >=60 [facility] Comment on above: Performed By: #### B MP #### [facility] [address] [address] [address] Raf Pearl EGFR-NON AF SPANISH 47 mL/min/1.73m2 Critically low >=60 [facility] Comment on above: Performed By: #### B MP #### [facility] [address] [address] [address] Raf Pearl Glucose [Mass/Vol] 146 mg/dL Critically high 74-106 [facility] Comment on above: Performed By: #### B MP #### [facility] [address] [address] [address] Raf Pearl Potassium [Moles/Vol] 3.9 mmol/L Normal 3.5-5.1 [facility] Comment on above: Performed By: #### B MP #### [facility] [address] [address] [address] Raf Pearl Sodium [Moles/Vol] 137 mmol/L Normal 136-145 [facility] Comment on above: Performed By: #### B MP #### [facility] [address] [address] [address] Raf Pearl Urea nitrogen [Mass/Vol] 10.0 mg/dL Normal 7.0-18.0 [facility] Comment on above: Performed By: #### B MP #### [facility] [address] [address] [address] Raf Pearl Urea nitrogen/Creatinine [Mass ratio] 8.7 mg/mg Normal [facility] Comment on above: Performed By: #### B MP #### [facility] [address] [place] [address] Dr. Raf Pearl CBC AUTO DIFFon 01-22-2022 BASO # 0.1 103/ul Normal 0.0-0.1 [facility] Comment on above: Performed By: #### B MP #### [facility] [address] [place] [address] Dr. Raf Pearl Basophils/100 WBC (Bld) 1.5 % Normal 0.2-2.0 [facility] Comment on above: Performed By: #### B MP #### [facility] [address] [place] [address] Dr. Raf Paerl EO # 0.3 103/ul Normal 0.0-0.7 [facility] Comment on above: Performed By: #### B MP #### [facility] [address] [place] [address] Dr. Raf Pearl Eosinophils/100 WBC (Bld) 5.3 % Normal 0.9-7.0 [facility] Comment on above: Performed By: #### B MP #### [facility] [address] [place] [address] Dr. Raf Pearl Erythrocyte distribution width (RBC) [Ratio] 13.1 % Normal 11.0-15.0 [facility] Comment on above: Performed By: #### B MP #### [facility] [address] [place] [address] Dr. Raf Pearl Hematocrit (Bld) [Volume fraction] 36.4 % Normal 36.0-48.0 [facility] Comment on above: Performed By: #### B MP #### [facility] [address] [place] [address] Dr. Raf Pearl Hemoglobin (Bld) [Mass/Vol] 12.4 g/dL Normal 12.0-16.0 [facility] Comment on above: Performed By: #### B MP #### [facility] [address] [place] [address] Dr. Raf Pearl IG # 0.02 10e3/ul Normal 0.00-0.03 [facility] Comment on above: Performed By: #### B MP #### [facility] [address] [place] [address] Dr. Raf Pearl IG % 0.3 % Normal 0.0-0.5 [facility] Comment on above: Performed By: #### B MP #### [facility] [address] [address] [address] Raf Pearl LYMPH # 2.0 103/ul Normal 1.2-3.8 [facility] Comment on above: Performed By: #### B MP #### [facility] [address] [place] [address] Dr. Raf Pearl Lymphocytes/100 WBC (Bld) 31.6 % Normal 20.5-60.0 [facility] Comment on above: Performed By: #### B MP #### [facility] [address] [place] [address] Dr. Raf Pearl MANUAL DIFF REQ NO Normal [facility] Comment on above: Performed By: #### B MP #### [facility] [address] [place] [address] Dr. Raf Pearl MCH (RBC) [Entitic mass] 31.4 pg Normal 26.7-34.0 [facility] Comment on above: Performed By: #### B MP #### [facility] [address] [place] [address] Dr. Raf Pearl MCHC (RBC) [Mass/Vol] 34.1 g/dL Normal 29.9-35.2 [facility] Comment on above: Performed By: #### B MP #### [facility] [address] [place] [address] Dr. Raf Pearl MCV (RBC) [Entitic vol] 92.2 fL Normal 81.0-99.0 [facility] Comment on above: Performed By: #### B MP #### [facility] [address] [place] [address] Dr. Raf Pearl MONO # 0.4 103/ul Normal 0.3-0.8 [facility] Comment on above: Performed By: #### B MP #### [facility] [address] [place] [address] Dr. Raf Pearl Monocytes/100 WBC (Bld) 6.8 % Normal 1.7-12.0 [facility] Comment on above: Performed By: #### B MP #### [facility] [address] [place] [address] Dr. Raf Pearl NEUT # 3.4 103/ul Normal 1.4-6.5 [facility] Comment on above: Performed By: #### B MP #### [facility] [address] [place] [address] Dr. Raf Pearl Neutrophils/100 WBC (Bld) 54.5 % Normal 43.0-75.0 [facility] Comment on above: Performed By: #### B MP #### [facility] [address] [place] [address] Dr. Raf Pearl Platelet mean volume (Bld) [Entitic vol] 9.7 fL Normal 9.5-13.5 [facility] Comment on above: Performed By: #### B MP #### [facility] [address] [place] [address] Dr. Raf Pearl PLT 384 103/ul Normal 150-450 [facility] Comment on above: Performed By: #### B MP #### [facility] [address] [place] [address] Dr. Raf Pearl RBC 3.95 106/ul Critically low 4.20-5.40 [facility] Comment on above: Performed By: #### B MP #### [facility] [address] [place] [address] Dr. Raf Pearl WBC 6.2 103/ul Normal 4.0-11.0 [facility] Comment on above: Performed By: #### B MP #### [facility] [address] [place] [address] Dr. Raf Pearl GLYCOHEMOGLOBIN A1Con 2021 ADA RECOMMENDATION SEE BELOW Normal [facility] Comment on above: Result Comment: ADA RECOMMENDED LIMIT 4.0 - 6.0 ADA THERAPEUTIC TARGET < 7.0 ACTION SUGGESTED > 7.0 Performed By: #### A 1C #### [facility] [address] [place] [address] Dr. Raf Pearl Glucose [Mass/Vol] 137 mg/dL Normal [facility] Comment on above: Performed By: #### A 1C #### [facility] [address] [place] [address] Dr. Raf Pearl HbA1c (Bld) [Mass fraction] 6.4 % Critically high 4.5-6.2 [facility] Comment on above: Performed By: #### A 1C #### [facility] [address] [place] [address] Dr. Raf Pearl LIPID PROFILEon 01-22-2022 CHOL-HDL RATIO NORM SEE BELOW Normal [facility] Comment on above: Result Comment: 3.3 - 4.4 LOW RISK 4.4 - 7.1 AVERAGE RISK 7.1 - 11.0 MODERATE RISK >11.0 HIGH RISK Performed By: #### B MP #### [facility] [address] [place] [address] Dr. Raf Pearl Cholesterol [Mass/Vol] 165 mg/dL Normal <=200 [facility] Comment on above: Performed By: #### B MP #### [facility] [address] [place] [address] Dr. Raf Pearl Cholesterol in HDL [Mass/Vol] 66 mg/dL Critically high 40-60 [facility] Comment on above: Performed By: #### B MP #### [facility] [address] [place] [address] Dr. Raf Pearl Cholesterol in LDL [Mass/Vol] 87.8 mg/dL Normal [facility] Comment on above: Performed By: #### B MP #### [facility] [address] [place] [address] Dr. Raf Pearl Cholesterol.total/Ch olesterol in HDL [Mass ratio] 2.5 {ratio} Normal [facility] Comment on above: Performed By: #### B MP #### [facility] [address] [address] [address] Raf Pearl HDL NORMAL > or = 60 mg/dl - LOW CARDIOVASCULAR RISK <40 mg/dl - HIGH CARDIOVASCULAR RISK Normal [facility] Comment on above: Performed By: #### B MP #### [facility] [address] [address] [address] Raf Pearl LDL CALC NORMAL SEE BELOW Normal [facility] Comment on above: Result Comment: <100 mg/dl OPTIMAL 100 - 129 mg/dl NEAR OR ABOVE OPTIMAL 130 - 159 mg/dl BORDERLINE HIGH 160 - 189 mg/dl HIGH >190 mg/dl VERY HIGH Performed By: #### B MP #### [facility] [address] [address] [address] Raf Pearl Triglyceride [Mass/Vol] 56 mg/dL Normal <=150 [facility] Comment on above: Performed By: #### B MP #### [facility] [address] [place] [address] Dr. Raf Pearl VLDL CALC 11.2 mg/dL Normal [facility] Comment on above: Performed By: #### B MP #### [facility] [address] [address] [address] Raf Pearl PROF 14(COMP METB)on 022 Albumin [Mass/Vol] 4.0 g/dL Normal 3.4-5.0 [facility] Comment on above: Performed By: #### B MP #### [facility] [address] [place] [address] Dr. Raf Pearl Albumin/Globulin [Mass ratio] 1.1 {ratio} Normal [facility] Comment on above: Performed By: #### B MP #### [facility] [address] [address] [address] Raf Pearl ALP [Catalytic activity/Vol] 81 U/L Normal 46-116 [facility] Comment on above: Performed By: #### B MP #### [facility] [address] [place] [address] Dr. Raf Pearl ALT [Catalytic activity/Vol] 26 U/L Normal 14-59 [facility] Comment on above: Performed By: #### B MP #### [facility] [address] [address] [address] Raf Pearl Anion gap [Moles/Vol] 12.1 mmol/L Normal [facility] Comment on above: Performed By: #### B MP #### [facility] [address] [address] [address] Raf Pearl AST [Catalytic activity/Vol] 16 U/L Normal 15-37 [facility] Comment on above: Performed By: #### B MP #### [facility] [address] [address] [address] Raf Pearl Bilirubin [Mass/Vol] 0.3 mg/dL Normal 0.2-1.0 [facility] Comment on above: Performed By: #### B MP #### [facility] [address] [address] [address] Raf Pearl Calcium [Mass/Vol] 9.2 mg/dL Normal 8.5-10.1 [facility] Comment on above: Performed By: #### B MP #### [facility] [address] [address] [address] Raf Pearl Chloride [Moles/Vol] 103 mmol/L Normal 98-107 [facility] Comment on above: Performed By: #### B MP #### [facility] [address] [address] [address] Raf Pearl CO2 [Moles/Vol] 26.9 mmol/L Normal 21.0-32.0 [facility] Comment on above: Performed By: #### B MP #### [facility] [address] [address] [address] Raf Pearl Creatinine [Mass/Vol] 1.17 mg/dL Critically high 0.55-1.02 [facility] Comment on above: Performed By: #### B MP #### [facility] [address] [address] [address] Raf Pearl EGFR-AF SPANISH 56 mL/min/1.73m2 Critically low >=[address] [facility] Comment on above: Performed By: #### B MP #### [facility] [address] [address] [address] Raf Pearl EGFR-NON AF SPANISH 46 mL/min/1.73m2 Critically low >=60 [facility] Comment on above: Performed By: #### B MP #### [facility] [address] [address] [address] Raf Pearl Globulin (S) [Mass/Vol] 3.6 g/dL Normal [facility] Comment on above: Performed By: #### B MP #### [facility] [address] [address] [address] Raf Pearl Glucose [Mass/Vol] 141 mg/dL Critically high 74-106 [facility] Comment on above: Performed By: #### B MP #### [facility] [address] [address] [address] Raf Pearl Potassium [Moles/Vol] 4.0 mmol/L Normal 3.5-5.1 [facility] Comment on above: Performed By: #### B MP #### [facility] [address] [address] [address] Raf Pearl Protein [Mass/Vol] 7.6 g/dL Normal 6.4-8.2 [facility] Comment on above: Performed By: #### B MP #### [facility] [address] [address] [address] Raf Pearl Sodium [Moles/Vol] 138 mmol/L Normal 136-145 [facility] Comment on above: Performed By: #### B MP #### [facility] [address] [address] [address] Raf Pearl Urea nitrogen [Mass/Vol] 19.0 mg/dL Critically high 7.0-18.0 [facility] Comment on above: Performed By: #### B MP #### [facility] [address] [address] [address] Raf Pearl Urea nitrogen/Creatinine [Mass ratio] 16.2 mg/mg Normal [facility] Comment on above: Performed By: #### B MP #### [facility] [address] [address] [address] Raf Pearl VIT B12 AND FOLATEon 022 Cobalamin (Vitamin B12) [Mass/Vol] 786.0 pg/mL Normal 193.0-986.0 [facility] Comment on above: Performed By: #### B 12FOL #### [facility] [address] [address] [address] Raf Pearl FOLATE 21.80 ng/mL Normal 8.60-58.90 [facility] Comment on above: Performed By: #### B 12FOL #### [facility] [address] [address] [address] Raf Pearl CERVICAL SPINE 2 OR 3 VWSon 11-02-2018 CERVICAL SPINE 2 OR 3 VWS [facility] Department of Radiology [address] [place] [id number] Patient Name: CRISELDA MORFIN : 1955 Sex: F Age: Race: White Pt. 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 Electronically signed by:Jeffrey Miles. Transcribed by: [email or web address], User Resident: ANTHONY SUNG Electronically Signed by: JEFFREY MILES @ 11/04/2018 04:42 PM I personally read this/these film(s) with this resident Normal [facility] Comment on above: Order Comment: , pos top, eval hardware and alignment , Views (X-RAY, CERVICAL SPINE): AP, Lateral, Odontoid , postop, eval hardware and alignment , Views (X-RAY, CERVICAL SPINE): AP, Lateral, Odontoid , , , Ordering Provider - A ROSIE MSN COOKER PROCESS CHEESE , POC GLUCOSE LABon 08-25-2018 Glucose [Mass/Vol] 208 mg/dL High 70-100 [facility] Comment on above: Performed By: #### 5 [id number], [id number] #### [facility] [address] [place] [address], [facility] Glucose [Mass/Vol] 98 mg/dL Normal 70-100 [facility] Comment on above: Performed By: #### 5 [id number], [id number] #### [facility] [address] [facility]. [address] BASIC METABOLIC PANELon 05-0 Calcium [Mass/Vol] 7.7 mg/dL Low 8.6-10.3 [facility] Comment on above: Order Comment: No: D o not add to previous draw Performed By: #### 5 0103 #### [facility] [address] [facility] [place] [address], [facility] Chloride [Moles/Vol] 109 mmol/L High 98-107 [facility] Comment on above: Order Comment: No: D o not add to previous draw Performed By: #### 5 0103 #### [facility] [address] [facility] [place] [address], [facility] CO2 [Moles/Vol] 24 mmol/L Normal 21-31 [facility] Comment on above: Order Comment: No: D o not add to previous draw Performed By: #### 5 0103 #### [facility] [address] [facility] [place] [address], [facility] Creatinine [Mass/Vol] 0.89 mg/dL Normal 0.60-1.20 [facility] Comment on above: Order Comment: No: D o not add to previous draw Performed By: #### 5 0103 #### [facility] [address] [facility] [place] [address], [facility] GFR/1.73 sq M predicted among blacks MDRD (S/P/Bld) [Vol rate/Area] mL/min/{1.73_m2} Normal >60 [facility] Comment on above: Order Comment: No: D o not add to previous draw Performed By: #### 5 0103 #### [facility] [address] [place] [address], [facility] GFR/1.73 sq M predicted among non-blacks MDRD (S/P/Bld) [Vol rate/Area] mL/min/{1.73_m2} Normal >60 [facility] Comment on above: Order Comment: No: D o not add to previous draw Performed By: #### 5 0103 #### [facility] [address] [place] [address], [facility] Glucose [Mass/Vol] 94 mg/dL Normal 70-100 [facility] Comment on above: Order Comment: No: D o not add to previous draw Performed By: #### 5 0103 #### [facility] [address] [place] [address], [facility] Potassium [Moles/Vol] 3.3 mmol/L Low 3.5-5.1 [facility] Comment on above: Order Comment: No: D o not add to previous draw Performed By: #### 5 0103 #### [facility] [address] [place] [address], [facility] Sodium [Moles/Vol] 140 mmol/L Normal 136-145 [facility] Comment on above: Order Comment: No: D o not add to previous draw Performed By: #### 5 0103 #### [facility] [address] [place] [address], [facility] Urea nitrogen [Mass/Vol] 11 mg/dL Normal 7-25 [facility] Comment on above: Order Comment: No: D o not add to previous draw Performed By: #### 5 0103 #### [facility] [address] [place] [address], [place] CBC W/DIFFon 08-24-2018 ABS BASOPHILS 0.0 10*3/uL Normal 0.0-0.2 [facility] Comment on above: Order Comment: No: D o not add to previous draw Performed By: #### 5 [id number] #### [facility] [address] [place] [address], [facility] ABS IMM GRANS 0.1 10*3/uL Normal 0.0-0.2 [facility] Comment on above: Order Comment: No: D o not add to previous draw Performed By: #### 5 0103 #### [facility] [address] [facility] [place] [address], [facility] ABS NEUTROPHILS 12.5 10*3/uL High 1.6-7.6 [facility] Comment on above: Order Comment: No: D o not add to previous draw Performed By: #### 5 0103 #### [facility] [address] [facility] [place] [address], [facility] Basophils/100 WBC (Bld) 0.3 % Normal 0.0-1.0 [facility] Comment on above: Order Comment: No: D o not add to previous draw Performed By: #### 5 [id number] #### [facility] [address] [facility] [place] [address], [facility] Eosinophils (Bld) [#/Vol] 0.0 10*3/uL Normal 0.0-0.5 [facility] Comment on above: Order Comment: No: D o not add to previous draw Performed By: #### 5 0103 #### [facility] [address] [facility]. [place] [id number], [facility] Eosinophils/100 WBC (Bld) 0.0 % Normal 0.0-6.0 [facility] Comment on above: Order Comment: No: D o not add to previous draw Performed By: #### 5 [id number] #### [facility] [address] [place] [address], [facility] Erythrocyte distribution width (RBC) [Ratio] 13.0 % Normal 11.5-15.0 [facility] Comment on above: Order Comment: No: D o not add to previous draw Performed By: #### 5 [id number] #### [facility] [address] [place] [address], [facility] Hematocrit (Bld) [Volume fraction] 31.7 % Low 36.0-45.0 The [facility] Comment on above: Order Comment: No: D o not add to previous draw Performed By: #### 5 0103 #### [facility] [address] [place] [address], [facility] Hemoglobin (Bld) [Mass/Vol] 10.3 g/dL Low 12.0-15.0 The [facility] Comment on above: Order Comment: No: D o not add to previous draw Performed By: #### 5 0103 #### [facility] [address] [facility] [place] [address], [facility] IMMATURE GRANS 0.5 % Normal 0.0-1.0 [facility] Comment on above: Order Comment: No: D o not add to previous draw Performed By: #### 5 0103 #### [facility] [address] [facility] [place] [address], [facility] Lymphocytes (Bld) [#/Vol] 1.9 10*3/uL Normal 1.2-4.0 The [facility] Comment on above: Order Comment: No: D o not add to previous draw Performed By: #### 5 0103 #### [facility] [address] [facility] [place] [address], [facility] Lymphocytes/100 WBC (Bld) 11.9 % Low 20.0-45.0 The [facility] Comment on above: Order Comment: No: D o not add to previous draw Performed By: #### 5 0103 #### [facility] [address] [place] [address], [facility] MCH (RBC) [Entitic mass] 31.7 pg Normal 27.0-33.0 The [facility] Comment on above: Order Comment: No: D o not add to previous draw Performed By: #### 5 0103 #### [facility] [address] [place] [address], [facility] MCHC (RBC) [Mass/Vol] 32.5 g/dL Normal 32.0-35.0 The [facility] Comment on above: Order Comment: No: D o not add to previous draw Performed By: #### 5 0103 #### [facility] [address] [place] [address], [facility] MCV (RBC) [Entitic vol] 97.5 fL Normal 82.0-98.0 The [facility] Comment on above: Order Comment: No: D o not add to previous draw Performed By: #### 5 0103 #### [facility] [address] [facility] [place] [address], [facility] Monocytes (Bld) [#/Vol] 1.2 10*3/uL High 0.1-1.0 The [facility] Comment on above: Order Comment: No: D o not add to previous draw Performed By: #### 5 0103 #### [facility] [address] [facility] [place] [address], [facility] MONOS 7.7 % Normal 5.0-12.0 The [facility] Comment on above: Order Comment: No: D o not add to previous draw Performed By: #### 5 0103 #### [facility] [address] [place] [address], [facility] Neutrophils/100 WBC (Bld) 79.6 % High 40.0-72.0 The [facility] Comment on above: Order Comment: No: D o not add to previous draw Performed By: #### 5 0103 #### [facility] [address] [place] [id number], [facility] Nucleated RBC/100 WBC (Bld) [Ratio] 0 % Normal 0-0 The [facility] Comment on above: Order Comment: No: D o not add to previous draw Performed By: #### 5 0103 #### [facility] [address] [place] [id number], [facility] PLAT CNT 263 10*3/uL Normal 150-[address] [facility] Comment on above: Order Comment: No: D o not add to previous draw Performed By: #### 5 0103 #### [facility] [address] [place] [address], [facility] RBC (Bld) [#/Vol] 3.25 10*6/uL Low 3.80-5.00 [facility] Comment on above: Order Comment: No: D o not add to previous draw Performed By: #### 5 0103 #### [facility] [address] [place] [address], [facility] WBC (Bld) [#/Vol] 15.70 10*3/uL High 4.00-10.60 [facility] Comment on above: Order Comment: No: D o not add to previous draw Performed By: #### 5 0103 #### [facility] [address] [place] [id number], [facility] LIPID PROFILEon 08-24-2018 Cholesterol [Mass/Vol] 128 mg/dL Normal 120-200 The [facility] Comment on above: Order Comment: No: D o not add to previous draw Result Comment: CHOL ESTEROL REFERENCE RANGE: 20 YEARS AND OLDER CARDIOVASCULAR RISK Less than 200 mg/dl Low Risk 200 to 239 mg/dl Borderline Risk 240 mg/dl and greater High Risk Performed By: #### 5 0103 #### [facility] [address] [place] [address], [facility] Cholesterol in HDL [Mass/Vol] 49 mg/dL Normal 23-92 The [facility] Comment on above: Order Comment: No: D [...] 0103 #### [facility] [address] [place] [address], [facility] Cholesterol in LDL [Mass/Vol] 65 mg/dL Normal 0-130 [facility] Comment on above: Order Comment: No: D o not add to previous draw Result Comment: LDL IS A CALCULATION LDL IS ONLY VALID IF THE TRIG IS LESS THAN 400. Performed By: #### 5 0103 #### [facility] [address] [place] [address], [facility] Cholesterol.total/Ch olesterol in HDL [Mass ratio] 2.6 {ratio} Normal .0-4.5 The [facility] Comment on above: Order Comment: No: D o not add to previous draw Performed By: #### 5 0103 #### [facility] [address] [place] [address], [facility] NON-HDL CHOLESTEROL 79 mg/dL Normal The [facility] Comment on above: Order Comment: No: D o not add to previous draw Performed By: #### 5 0103 #### [facility] [address] [facility] [address], [facility] Triglyceride [Mass/Vol] 69 mg/dL Normal 40-149 The [facility] Comment on above: Order Comment: No: D o not add to previous draw Result Comment: TRIG LYCERIDE REFERENCE RANGE: 20 YEARS AND OLDER CARDIOVASCULAR RISK LESS THAN 150 mg/dl LOW RISK 150 TO 199 mg/dl BORDERLINE RISK 200 mg/dl AND GREATER HIGH RISK Performed By: #### 5 0103 #### [facility] [address] [place] [address], [facility] VLDL CHOL 14 mg/dL Normal 0-40 [facility] Comment on above: Order Comment: No: D o not add to previous draw Performed By: #### 5 0103 #### [facility] [address] [place] [address], [place] POC GLUCOSE LABon 08-24-2018 Glucose [Mass/Vol] 162 mg/dL High 70-100 [facility] Comment on above: Performed By: #### 5 6101, [id number] #### [facility] [address] [place] [address], [place] Glucose [Mass/Vol] 146 mg/dL High 70-100 [facility] Comment on above: Performed By: #### 5 610, [id number] #### [facility] [address] [place] [address], [place] Glucose [Mass/Vol] 213 mg/dL High 70-100 [facility] Comment on above: Performed By: #### 5 6101, [id number] #### [facility] [address] [place] [address], [place] Glucose [Mass/Vol] 81 mg/dL Normal 70-100 [facility] Comment on above: Performed By: #### 5 6101, [id number] #### [facility] [address] [place] [address], [place] BASIC METABOLIC PANELon 05- Calcium [Mass/Vol] 8.4 mg/dL Low 8.6-10.3 [facility] Comment on above: Order Comment: Yes: Add to Previous draw if able Performed By: #### 5 0103 #### [facility] [address] [place] [address], [place] Chloride [Moles/Vol] 103 mmol/L Normal 98-107 The [facility] Comment on above: Order Comment: Yes: Add to Previous draw if able Performed By: #### 5 010 #### [facility] [address] [place] [address], [place] CO2 [Moles/Vol] 26 mmol/L Normal 21-31 [facility] Comment on above: Order Comment: Yes: Add to Previous draw if able Performed By: #### 5 0103 #### [facility] [address] [place] [address], [place] Creatinine [Mass/Vol] 1.03 mg/dL Normal 0.60-1.20 The [facility] Comment on above: Order Comment: Yes: Add to Previous draw if able Performed By: #### 5 0103 #### [facility] [address] [place] [address], [place] GFR/1.73 sq M predicted among blacks MDRD (S/P/Bld) [Vol rate/Area] mL/min/{1.73_m2} Normal >60 The [facility] Comment on above: Order Comment: Yes: Add to Previous draw if able Performed By: #### 5 0103 #### [facility] [address] [place] [address], [place] GFR/1.73 sq M predicted among non-blacks MDRD (S/P/Bld) [Vol rate/Area] 54 ml/min/1.73sq m Abnormal >[address] [facility] Comment on above: Order Comment: Yes: Add to Previous draw if able Performed By: #### 5 0103 #### [facility] [address] [place] [address], [place] Glucose [Mass/Vol] 209 mg/dL High 70-100 [facility] Comment on above: Order Comment: Yes: Add to Previous draw if able Performed By: #### 5 0103 #### [facility] [address] [place] [address], [place] Potassium [Moles/Vol] 3.9 mmol/L Normal 3.5-5.1 The [facility] Comment on above: Order Comment: Yes: Add to Previous draw if able Performed By: #### 5 0103 #### [facility] [address] [place] [address], [place] Sodium [Moles/Vol] 135 mmol/L Low 136-[facility] on above: Order Comment: Yes: Add to Previous draw if able Performed By: #### 5 3 #### [facility] [address] [place] [address], [facility] Urea nitrogen [Mass/Vol] 16 mg/dL Normal 7-25 The [facility] Comment on above: Order Comment: Yes: Add to Previous draw if able Performed By: #### 3 #### [facility] [address] CBC COMPLETE BLOOD COUNTon 0 08-23-2018 Erythrocyte distribution width (RBC) [Ratio] 12.8 % Normal 11.5-15.0 The [facility] Comment on above: Order Comment: Yes: Add to Previous draw if able Performed By: #### 5 102 #### [facility] [address] [place] [address], [facility] Hematocrit (Bld) [Volume fraction] 35.0 % Low 36.0-45.0 The [facility] Comment on above: Order Comment: Yes: Add to Previous draw if able Performed By: #### 5 3 #### [facility] [address] [place] [address], [facility] Hemoglobin (Bld) [Mass/Vol] 11.2 g/dL Low 12.0-15.0 The [facility] Comment on above: Order Comment: Yes: Add to Previous draw if able Performed By: #### 5 3 #### [facility] [address] [place] [address], [facility] MCH (RBC) [Entitic mass] 31.5 pg Normal 27.0-33.0 The [facility] Comment on above: Order Comment: Yes: Add to Previous draw if able Performed By: #### 5 3 #### [facility] [address] [place] [address], [facility] MCHC (RBC) [Mass/Vol] 32.0 g/dL Normal 32.0-35.0 The [facility] Comment on above: Order Comment: Yes: Add to Previous draw if able Performed By: #### 5 0103 #### [facility] [address] [place] [address], [facility] MCV (RBC) [Entitic vol] 98.3 fL High 82.0-98.0 The [facility] Comment on above: Order Comment: Yes: Add to Previous draw if able Performed By: #### 5 0103 #### [facility] [address] [facility] [place] [address], [facility] Nucleated RBC/100 WBC (Bld) [Ratio] 0 % Normal 0-0 The [facility] Comment on above: Order Comment: Yes: Add to Previous draw if able Performed By: #### 5 0103 #### [facility] [address] [facility] [place] [address], [facility] PLAT CNT 276 10*3/uL Normal 150-[address] [facility] Comment on above: Order Comment: Yes: Add to Previous draw if able Performed By: #### 5 0103 #### [facility] [address] [facility] [place] [address], [facility] RBC (Bld) [#/Vol] 3.56 10*6/uL Low 3.80-5.00 The [facility] Comment on above: Order Comment: Yes: Add to Previous draw if able Performed By: #### 5 0103 #### [facility] [address] [facility] [place] [address], [facility] WBC (Bld) [#/Vol] 14.61 10*3/uL High 4.00-10.60 The [facility] Comment on above: Order Comment: Yes: Add to Previous draw if able Performed By: #### 5 0103 #### [facility] [address] [facility] [place] [address], [facility] CERVICAL SPINE 2 OR 3 VWSon 08-23-2018 CERVICAL SPINE 2 OR 3 S [facility] Department of Radiology [address] [place] [address] [id number] Patient Name: CRISELDA MORFIN : 1955 Sex: [...] C6. Electronically signed by:Xiomara Nath. Transcribed by: [email or web address], User Resident: Electronically Signed by: XIOMARA NATH @ 08/23/2018 04:07 PM Normal The [facility] Comment on above: Order Comment: C4-C5 , C5-C6 ANTERIOR CERVICAL DISCECTOMY WITH FUSION Operative Reporton 9 Operative Report MR#: [id number] S [facility] Pt. Name: Criselda Morfin Room #: 0C Discharge Date: Birthdate: 1955 OPERATIVE REPORT DATE OF SURGERY: 08/23/2018 SURGEON: Demetris Askew M.D. 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 POSTOPERATIVE DIAGNOSIS: Herniated cervical disk and spinal stenosis from C4 through C6. GOVERNMENT AFFAIRS DIRECTOR: ELIDIA Castle. ANESTHESIA: Endotracheal, Dr. Falcon. PROCEDURE: [...] size 8 at C5-6. The plate was [place], size 35 mm. The screws were 6, [...] Askew M.D. Date Trans: 08/23/2018 01:26 P/kari [id number] Normal The [facility] POC GLUCOSE LABon 08-23-2018 Glucose [Mass/Vol] 157 mg/dL High 70-100 [facility] Comment on above: Performed By: #### 5 0103 #### [facility] [address] Glucose [Mass/Vol] 190 mg/dL High 70-100 [facility] Comment on above: Performed By: #### 5 0103 #### [facility] [address] Glucose [Mass/Vol] 182 mg/dL High 70-100 [facility] Comment on above: Performed By: #### 5 0103 #### [facility] [address] [place] [address], [facility] Glucose [Mass/Vol] 94 mg/dL Normal 70-100 [facility] Comment on above: Performed By: #### 5 0103 #### [facility] [address] *MRSA/MSSA DNA NASALon 08-08 *MRSA/MSSA DNA NASAL Clinical Report: (D ) Specimen: NASAL SWAB Collected: 08/08/2018 15:04 Status: Final Last Updated: 08/08/2018 20:45 MSSA DNA (Final) Negative MRSA DNA (Final) Negative Normal The [facility] Comment on above: Performed By: #### 3 1595 #### [facility] [address] *URINE CULTUREon 08-08-2018 Bacteria identified Cx [...] CEFAZOLIN (CZ) 2 Susceptible 4 Susceptible CEFTRIAXONE (DOCK BOSS) <=0.5 Susceptible <=0.5 Susceptible CIPROFLOXACIN (CIP) <=0.5 Susceptible <=0.5 Susceptible GENTAMICIN (GM) 1 Susceptible 4 Susceptible MEROPENEM (MEM) <=0.125 Susceptible NITROFURANTOIN (FT) 32 Susceptible >64 Resistant PIP/TAZO (TZP) 4/4 Susceptible PIP/TAZO (TZP) <=2/4 Susceptible TOBRAMYCIN (TOB) 1 Susceptible 2 Susceptible TRIMETH/SULFA (SXT) <=0.5/9.5 Susceptible <=0.5/9.5 Susceptible Antibiotic Summary Grid: AMS AM AZM CZ DOCK BOSS CIP GM MEM FT TZP TOB Citrobacter S R S S S S S S S S S amalonaticus complex Proteus mirabilis S S S S S S S R S S SXT Citrobacter S amalonaticus complex Proteus mirabilis S Normal [facility] Comment on above: Performed By: #### 3 0339 #### [facility] [address] APTTon 08-08-2018 aPTT Coag (Bld) [Time] 28.0 s Normal 25.0-35.0 [facility] Comment on above: Result Comment: ALL [...] THIS PURPOSE. Performed By: #### 5 6101, [id number] #### [facility] [address] BASIC METABOLIC PANELon - Calcium [Mass/Vol] 9.6 mg/dL Normal 8.6-10.3 [facility] Comment on above: Performed By: #### 0 0071 #### [facility] [address] [place] [address], [place] Chloride [Moles/Vol] 103 mmol/L Normal 98-107 The [facility] Comment on above: Performed By: #### 0 0071 #### [facility] [address] [place] [address], [place] CO2 [Moles/Vol] 30 mmol/L Normal 21-31 [facility] Comment on above: Performed By: #### 0 0071 #### [facility] [address] [place] [address], [place] Creatinine [Mass/Vol] 1.07 mg/dL Normal 0.60-1.20 The [facility] Comment on above: Performed By: #### 0 0071 #### [facility] [address] [place] [address], [place] GFR/1.73 sq M predicted among blacks MDRD (S/P/Bld) [Vol rate/Area] mL/min/{1.73_m2} Normal >60 The [facility] Comment on above: Performed By: #### 0 0071 #### [facility] [address] [place] [address], [place] GFR/1.73 sq M predicted among non-blacks MDRD (S/P/Bld) [Vol rate/Area] 52 ml/min/1.73sq m Abnormal >[address] [facility] Comment on above: Performed By: #### 0 0071 #### [facility] [address] [place] [address], [place] Glucose [Mass/Vol] 93 mg/dL Normal 70-100 [facility] Comment on above: Performed By: #### 0 0071 #### [facility] [address] [place] [address], [place] Potassium [Moles/Vol] 4.2 mmol/L Normal 3.5-5.1 The [facility] Comment on above: Performed By: #### 0 0071 #### [facility] [address] Sodium [Moles/Vol] 139 mmol/L Normal 136-145 [facility] Comment on above: Performed By: #### 0 1 #### [facility] [address] Urea nitrogen [Mass/Vol] 18 mg/dL Normal 7-25 The [facility] Comment on above: Performed By: #### 0 1 #### [facility] [address] CBC W/DIFFon 08-08-2018 ABS BASOPHILS 0.1 10*3/uL Normal 0.0-0.2 [facility] Comment on above: Performed By: #### 5 102 #### [facility] [address] ABS IMM GRANS 0.0 10*3/uL Normal 0.0-0.2 [facility] Comment on above: Performed By: #### 5 102 #### [facility] [address] ABS NEUTROPHILS 5.0 10*3/uL Normal 1.6-7.6 [facility] Comment on above: Performed By: #### 5 3 #### [facility] [address] Basophils/100 WBC (Bld) 0.9 % Normal 0.0-1.0 The [facility] Comment on above: Performed By: #### 5 102 #### [facility] [address] Eosinophils (Bld) [#/Vol] 0.2 10*3/uL Normal 0.0-0.5 The [facility] Comment on above: Performed By: #### 5 0103 #### [facility] [address] [place] [address], [facility] Eosinophils/100 WBC (Bld) 1.8 % Normal 0.0-6.0 The [facility] Comment on above: Performed By: #### 102 #### [facility] [address] [place] [address], [facility] Erythrocyte distribution width (RBC) [Ratio] 13.1 % Normal 11.5-15.0 The [facility] Comment on above: Performed By: #### 102 #### [facility] [address] [facility] [place] [address], [facility] Hematocrit (Bld) [Volume fraction] 37.2 % Normal 36.0-45.0 The [facility] Comment on above: Performed By: #### 102 #### [facility] [address] [facility] [place] [address], [facility] Hemoglobin (Bld) [Mass/Vol] 12.3 g/dL Normal 12.0-15.0 The [facility] Comment on above: Performed By: #### 102 #### [facility] [address] [facility] [place] [address], [facility] IMMATURE GRANS 0.5 % Normal 0.0-1.0 [facility] Comment on above: Performed By: #### 3 #### [facility] [address] [facility] [place] [address], [facility] Lymphocytes (Bld) [#/Vol] 2.2 10*3/uL Normal 1.2-4.0 The [facility] Comment on above: Performed By: #### 3 #### [facility] [address] [facility] [place] [address], [facility] Lymphocytes/100 WBC (Bld) 26.5 % Normal 20.0-45.0 The [facility] Comment on above: Performed By: #### 102 #### [facility] [address] [facility] [address] MCH (RBC) [Entitic mass] 31.4 pg Normal 27.0-33.0 The [facility] Comment on above: Performed By: #### 5 0103 #### [facility] [address] [facility] [address] MCHC (RBC) [Mass/Vol] 33.1 g/dL Normal 32.0-35.0 The [facility] Comment on above: Performed By: #### 5 0103 #### [facility] [address] [facility] [place] [address], [facility] MCV (RBC) [Entitic vol] 94.9 fL Normal 82.0-98.0 The [facility] Comment on above: Performed By: #### 5 3 #### [facility] [address] [facility]. [address] Monocytes (Bld) [#/Vol] 0.7 10*3/uL Normal 0.1-1.0 The [facility] Comment on above: Performed By: #### 5 0103 #### [facility] [address] [facility]. [address] [address] MONOS 8.3 % Normal 5.0-12.0 The [facility] Comment on above: Performed By: #### 5 0103 #### [facility] [address] [facility]. [address] Neutrophils/100 WBC (Bld) 62.0 % Normal 40.0-72.0 [facility] Comment on above: Performed By: #### 5 0103 #### [facility] [address] [facility] [place] [address], [facility] Nucleated RBC/100 WBC (Bld) [Ratio] 0 % Normal 0-0 The [facility] Comment on above: Performed By: #### 5 0103 #### [facility] 3000 [facility]. [address] PLAT CNT 325 10*3/uL Normal 150-[address] [facility] Comment on above: Performed By: #### 5 0103 #### [facility] 3000 [facility] [place] [address], [facility] RBC (Bld) [#/Vol] 3.92 10*6/uL Normal 3.80-5.00 The [facility] Comment on above: Performed By: #### 5 0103 #### [facility] 3000 [place] [address], [facility] WBC (Bld) [#/Vol] 8.12 10*3/uL Normal 4.00-10.60 The [facility] Comment on above: Performed By: #### 5 0103 #### [facility] [address] CERVICAL SPINE 4 OR 5 VIEWSo 08-08-2018 CERVICAL SPINE 4 OR 5 VIEWS [facility] Department of Radiology [address] [place] [address] [id number] Patient Name: CRISELDA MORFIN : 1955 Sex: F Age: Race: White Pt. Location: Patient Status: O Ordered Date: 08/08/2018 2:25:00 PM Completed Date: 08/08/2018 02:48 PM Requesting Provider: DEMETRIS ASKEW Attending Provider: DEMETRIS ASKEW Report Copy To: DEMETRIS ASKEW Signs & Symptoms: M48.02 Spinal stenosis, cervical region I10 History: [place] Comments: , POST OP XRAY AP/LAT ONLY [...] level Electronically signed by:Xiomara Nath. Transcribed by: [email or web address], User Resident: Electronically Signed by: XIOMARA NATH @ 08/08/2018 03:24 PM Normal [facility] Comment on above: Order Comment: , POS T OP XRAY AP/LAT ONLY , POST OP XRAY AP/LAT ONLY , , , Ordering Charlene ASKEW MD , HEMOGLOBIN A1Con 08-08-2018 HbA1c (Bld) [Mass fraction] 154 mg/dL High 70-126 [facility] Comment on above: Performed By: #### 4 [id number] #### [facility] 3000 [facility]. [address] HbA1c (Bld) [Mass fraction] 7.0 % High 4.0-6.0 The [facility] Comment on above: Performed By: #### 4 6447 #### [facility] 3000 [facility]. [address] PROTHROMBIN TIMEon 9 INR Coag (PPP) [Relative time] 0.93 {INR} Normal 0.91-1.16 The [facility] Comment on above: Result Comment: ACCC P [...] CHEST 1995;[id number]. Performed By: #### 5 6101, [id number] #### [facility] [address] [facility] [place] [address], [facility] PT Coag (PPP) [Time] 12.5 s Normal 12.3-14.8 The [facility] Comment on above: Result Comment: ALL RESULTS MUST BE INTERPRETED WITH RESPECT TO BLOOD DRAWING ARTIFACT OR DILUTION ERROR OF ANTICOAGULANT AT THE TIME OF SAMPLING. Performed By: #### 5 6101, [id number] #### [facility] [address] [facility]. [address] TYPE AND CROSSMATCHon 2018 ABO INTERPRETATION O Normal [facility] Comment on above: Performed By: #### 6 2594 #### [facility] [address] [place] [address], [place] RH INTERPRETATION Positive Normal [facility] Comment on above: Performed By: #### 6 2594 #### [facility] [address] [place] [address], [place] URINALYSIS REFLEXon 08-09-19 19 Appearance (U) CLEAR Normal CLEAR [facility] Comment on above: Performed By: #### 3 0965 #### [facility] [address] [place] [address], [place] Bilirubin [Mass/Vol] Negative Normal NEGATIVE The [facility] Comment on above: Performed By: #### 3 0965 #### [facility] [address] [place] [address], [place] BLOOD Negative Normal NEGATIVE The [facility] Comment on above: Performed By: #### 3 0965 #### [facility] [address] [place] [address], [place] Color (U) STRAW Abnormal YELLOW [facility] Comment on above: Performed By: #### 3 0965 #### [facility] [address] [place] [address], [place] EPIS NONE SEEN Normal FEW,OCC,NONE SEEN [facility] Comment on above: Performed By: #### 3 0965 #### [facility] [address] [place] [address], [place] Glucose [Mass/Vol] Negative Normal NEGATIVE [facility] Comment on above: Performed By: #### 3 0965 #### [facility] [address] [place] [address], [place] KETONE Negative Normal NEGATIVE [facility] Comment on above: Performed By: #### 3 0965 #### [facility] [address] [place] [address], [place] LEUK ALVARADO TRACE Abnormal NEGATIVE [facility] Comment on above: Performed By: #### 3 0965 #### [facility] [address] [place] [address], [place] Nitrite Ql (U) Negative Normal NEGATIVE [facility] Comment on above: Performed By: #### 3 0965 #### [facility] [address] [place] [address], [place] pH (Bld) 6.0 Normal 5.0-8.0 [facility] Comment on above: Performed By: #### 3 0965 #### [facility] [address] [place] [address], [place] Protein (U) [Mass/Vol] Negative Normal NEGATIVE [facility] Comment on above: Performed By: #### 3 0965 #### [facility] [address] [place] [address], [place] RBC (U) [#/Vol] 0-2 Abnormal NONE SEEN [facility] Comment on above: Performed By: #### 3 0965 #### [facility] [address] [place] [address], [place] SPEC GRAV 1.011 Low 1.015-1.[address] [facility] Comment on above: Performed By: #### 3 0965 #### [facility] [address] [facility] [place] [address], [place] WBC UA 0-2 Abnormal NONE SEEN [facility] Comment on above: Performed By: #### 3 0965 #### [facility] [address] [place] [address], [place] Vital Signs Date Time Vital Sign Value Performing Clinician Facility 09-24-2022 08:10-0400 Body height 149.86 cm Rin Nicholson Other [facility] Other 09-24-2022 08:10-0400 Body mass index (BMI) [Ratio] 29.89 kg/m2 Rin Nicholson Other [facility] Other 09-24-2022 08:10-0400 Body temperature 98.6 [degF] Rin Nicholson Other [facility] Other 09-24-2022 08:10-0400 Body weight 67.13 kg Rin Nicholson Other [facility] Other 09-24-2022 08:10-0400 Diastolic blood pressure 84 mm[Hg] Rin Nicholson Other [facility] Other 09-24-2022 08:10-0400 Respiratory rate 18 /min Rin Nicholson Other [facility] Other 09-24-2022 08:10-0400 SaO2% (BldA) [Mass fraction] 97 % Rin Nicholson Other [facility] Other 09-24-2022 08:10-0400 Systolic blood pressure 126 mm[Hg] Rin Nicholson Other [facility] Other 08-09-2022 18:20-0400 Body height 149.86 cm Rin Nicholson Other [facility] Other 08-09-2022 18:20-0400 Body mass index (BMI) [Ratio] 29.89 kg/m2 Rin Nicholson Other [facility] Other 08-09-2022 18:20-0400 Body temperature 98.2 [degF] Rin Nicholson Other [facility] Other 08-09-2022 18:20-0400 Body weight 67.13 kg Rin Nicholson Other [facility] Other 08-09-2022 18:20-0400 Diastolic blood pressure 78 mm[Hg] Rin Nicholson Other [facility] Other 08-09-2022 18:20-0400 Respiratory rate 16 /min Rin Nicholson Other [facility] Other 08-09-2022 18:20-0400 SaO2% (BldA) [Mass fraction] 98 % Rin Nicholson Other [facility] Other 08-09-2022 18:20-0400 Systolic blood pressure 136 mm[Hg] Rin Nicholson Other [facility] Other 02-08-2022 18:00-0400 Body height 149.86 cm Rin Nicholson Other [facility] Other 02-08-2022 18:00-0400 Body mass index (BMI) [Ratio] 28.98 kg/m2 Rin Nicholson Other [facility] Other 02-08-2022 18:00-0400 Body temperature 98.1 [degF] Rin Nicholson Other [facility] Other 02-08-2022 18:00-0400 Body weight 65.09 kg Rin Nicholson Other [facility] Other 02-08-2022 18:00-0400 Diastolic blood pressure 80 mm[Hg] Rin Nicholson Other [facility] Other 02-08-2022 18:00-0400 Respiratory rate 16 /min Rin Nicholson Other [facility] Other 02-08-2022 18:00-0400 SaO2% (BldA) [Mass fraction] 99 % Rin Nicholson Other [facility] Other 02-08-2022 18:00-0400 Systolic blood pressure 136 mm[Hg] Rin Nicholson Other [facility] Other Encounters Encounter Date Encounter Type Care Provider Facility Start: 05-16-2023 End: 05-16-2023 ambulatory Rin Nicholson Other [facility] Other Start: 05-16-2023 Telephone encounter Rin Nicholson [facility] [place] Start: 05-03-2023 End: 05-03-2023 ambulatory Rin Nicholson Facility:[facility] Start: 05-03-2023 Encounter by compute r link Rin Nicholson [facility] [place] Start: 05-03-2023 End: 05-03-2023 ambulatory DO Rin Nicholson Work Phone: [facility] Work Phone: Start: 05-03-2023 End: 05-03-2023 Patient encounter procedure DO Rin Nicholson Work Phone: [facility] Work Phone: Start: 04-12-2023 End: 04-12-2023 ambulatory Rin Nicholson Other [facility] Other Start: 04-12-2023 Telephone encounter Rin Nicholson [facility] [place] Start: 04-04-2023 End: 04-04-2023 ambulatory Rin Nicholson Other [facility] Other Start: 04-04-2023 Telephone encounter Rin Nicholson [facility] [place] Start: 03-21-2023 End: 03-21-2023 ambulatory Rin Nicholson Other [facility] Other Start: 03-21-2023 Telephone encounter Rin Nicholson [facility] [place] Start: 02-23-2023 End: 02-23-2023 ambulatory Rin Nicholson Other [facility] Other Start: 02-23-2023 Telephone encounter Rin Nicholson [facility] [place] Start: 09-24-2022 End: 09-24-2022 ambulatory Rin Nicholson Other [facility] Other Start: 09-24-2022 Office outpatient vi sit 15 minutes Rin Nicholson [facility] [place] Start: 08-30-2022 End: 08-31-[address] RIN NICHOLSON Facility:[facility] Start: 08-17-2022 End: 08-17-2022 ambulatory Rin Nicholson Other [facility] Other Start: 08-17-2022 Telephone encounter Rin Nicholson [facility] [place] Start: 08-16-2022 End: 08-17-[address] RIN NICHOLSON Facility:[facility] Start: 08-09-2022 End: 08-09-2022 ambulatory Rin Nicholson Other [facility] Other Start: 08-09-2022 Office outpatient vi sit 25 minutes Rin Nicholson [facility] [place] Start: 08-06-2022 End: 08-06-2022 ambulatory Rin Nicholson Other [facility] Other Start: 08-06-2022 Telephone encounter Rin Nicholson [facility] [place] Start: 07-31-2022 End: 08-01-[address] RIN NICHOLSON Facility:[facility] Start: 06-04-2022 End: 06-04-2022 ambulatory Rin Nicholson Other [facility] Other Start: 06-04-2022 Telephone encounter Rin Nicholson [facility] [place] Start: 05-24-2022 End: 05-24-2022 ambulatory Rin Nicholson Other [facility] Other Start: 05-24-2022 Telephone encounter Rin Nicholson [facility] [place] Start: 05-14-2022 End: 05-14-2022 ambulatory Rin Nicholson Other [facility] Other Start: 05-14-2022 Telephone encounter Rin Nicholson [facility] [place] Start: 04-30-2022 End: 04-30-[address] BETTINA MULLIGAN . Facility:[facility] Start: 04-22-2022 End: 04-22-2022 ambulatory Rin Nicholson Other [facility] Other Start: 04-22-2022 Telephone encounter Rin Nicholson [facility] [place] Start: 03-29-2022 End: 03-29-2022 ambulatory Rin Nicholson Other [facility] Other Start: 03-29-2022 Telephone encounter Rin Nicholson [facility] [place] Start: 03-27-2022 End: 03-28-[address] RIN NICHOLSON Facility:[facility] Start: 02-08-2022 End: 02-08-2022 ambulatory Rin Nicholson Other [facility] Other Start: 02-08-2022 Office outpatient vi sit 25 minutes Rin Nicholson [facility] [place] Start: 01-22-2022 End: 01-23-2022 ambulatory [...] [id number] #### [facility] [address] Immunizations Immunization Date Immunization Notes Care Provider Fa hunter 04-26-2023 Prevnar 20 Rin Nicholson Other [facility] Other 04-08-2023 COVID-19 Moderna (SPIKEVAX) Rin Nicholson Other [facility] Other 04-08-2023 zoster vaccine recombinant Rin Nicholson Other [facility] Other 03-22-2023 Flu Shot - Documentation Purposes Only Rin Nicholson Other [facility] Other 02-08-2022 Shingrix 50 MCG/0.5M L; 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: [Shingrix 50 MCG/0.5ML] Rin Nicholson Other [facility] Other 01-15-2022 influenza, seasonal, injectable Rin Nicholson Other [facility] Other 01-15-2022 COVID-19 Pfizer (bivalent) Rin Nicholson Other [facility] Other 07-31-2021 COVID-19 Vaccine Moderna - Documentation Purposes Only Rin Nicholson Other [facility] Other 02-20-2021 COVID-19 Vaccine Moderna - Documentation Purposes Only Rin Nicholson Other [facility] Other 07-26-2020 COVID-19 Brittany Romero n Other [facility] Other 06-28-2020 COVID-19 Brittany Romero n Other [facility] Other 02-18-2020 influenza, seasonal, injectable Rin Kesslerbaljit Other [facility] Other 02-19-2017 influenza, seasonal, injectable Rin Lyn Other [facility] Other 03-08-2016 influenza, seasonal, injectable Rin Kesslerbaljit Other [facility] Other 05-07-2013 influenza virus vaccine, split virus (incl. purified surface antigen) Rin Nicholson Other [facility] Other 03-24-2012 influenza, seasonal, injectable, preservative free Rin Nicholson Other [facility] Other Payers Date Payer Category Payer Self-pay [id number] 2023 Unknown [id number] 2022 Medicare [id number] 2.1 [id number] 1959 Unknown [id number] 1955 Unknown [id number] 2.16. [id number] 1955 Unknown [id number] 2.16. [id number] 1955 Unknown [id number] 2.16. [id number] 1955 Unknown [id number] 2.16. [id number] 1955 Unknown [id number] 2.16.8 [id number] 1955 Unknown [id number] 2.16.84 [id number] 1955 Unknown [id number] 2.16.84 [id number] 1955 Unknown [id number] 2.16.84 [id number] 1955 Unknown [id number] 2.16.84 [id number] 1955 Unknown [id number] 2.16.84 [id number] 1955 Unknown [id number] 2.16.84 [id number] Unknown [id number] Unknown [id number] 2.16.8 [id number] Social History Date Type Detail Facility Unknown if ever smoked [facility] Other Sex Assigned At Sex Assigned At Bir th [facility] Other Start: 1955 Sex Assigned At Female F [facility] Start: 06-02-2020 Tobacco smoking status NHIS Never smoked tobacco (finding) [facility] Medical Equipment Procedure Code Equipment Code Equipment Origin al Text Equipment Identifier Dates One Touch Lancet s lancets Start: 12-24-2011 Clinical Notes 02-11-2019 to 05-03-2023 Note Date & Type Note Facility 05-03-2023 Evaluation note Encounter Date Diagnosis Assessment Notes Apr, GERD (gastroesop hageal reflux disease) (ICD-10 - K21.9) [facility] Other 2023 Evaluation note* Encounter Date Diagnosis Assessment Notes Treatment Notes Treatment Clinical Notes Mar, Abnormal blood chemistry (ICD-10 - R79.9) Mar, Hypercalcemia (ICD-1 0 - E83.52) Mar, Stage 3a chronic kidney disease (ICD-10 - N18.31) [facility] Other 06-09-2023 Evaluation note* Encounter Date Diagnosis [...] see where her kidney studies are at. [facility] Other 04-24-2023 Evaluation note* Encounter Date Diagnosis [...] results. She may have to see the supportive employment case manager again but we will wait and [...] ice the shoulder or alternate with heat. [facility] Other 01-05-2023 Evaluation note* Encounter Date Diagnosis Assessment Notes Treatment Notes Treatment Clinical Notes Apr, Hypertension (ICD-10 - I10) [facility] Other 10-24-2022 Evaluation note* Encounter Date Diagnosis [...] this. She does agree to see an inventory specialist. A referral is provided. Her range [...] her wi th an order for a Shin[employer] vaccine [facility] Other 02-01-2021 History general Narrative - Reported* Type Description Date Medical History Stress Test; [facility], normal per patient Medical History Pap and Pelvic 3 yea rs ago, OBGYN in [place] Medical History Mammogram over 5 yea rs; Normal at that time per patient Medical History CT Abdomen and Pelvi s over 5 years ago; [facility] Medical History Colonoscopy 8 years ago; in [place], normal in patient Medical History Chest X-Ray 12-15-11; normal, [facility] Medical History Echocardiogram; 12-15; [facility] Medical History Cardiolite Stress Te st 12-16-11; [facility] Medical History Check's sugar's bid Medical History Heart Catherization; [facility] Medical History breast cancer 04/2014 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, status post lumpectomy x2, sentinel lymph node biopsy and adjuvant radiotherapy that concluded on 08-21-14 Medical History 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 - Dr French from [facility] Surgical History Tonsillectomy age 21 Surgical History ovarian tumor removed and left ovary Surgical History complete hysterectomy 1993 Surgical History Heart Catherization; [facility] Surgical History Right Shoulder Tear and bone spur removal; [facility] 07-27-12 Surgical History Left Shoulder Rotato [...] overy Hospitalization History complete hysterectomy 19 94 [facility] Other 01-19-2021 History general Narrative - Reported* Type Description Date Medical History Stress Test; [facility], normal per patient Medical History Pap and Pelvic 3 yea rs ago, OBGYN in [place] Medical History Mammogram over 5 yea rs; Normal at that time per patient Medical History CT Abdomen and Pelvi s over 5 years ago; [facility] Medical History Colonoscopy 8 years ago; in [place], normal in patient Medical History Chest X-Ray 12-15-11; normal, [facility] Medical History Echocardiogram; 12-15; [facility] Medical History Cardiolite Stress Te st 12-16-11; [facility] Medical History Check's sugar's bid Medical History Heart Catherization; [facility] Medical History breast cancer 04/2014 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, status post lumpectomy x2, sentinel lymph node biopsy and adjuvant radiotherapy that concluded on 08-21-14 Medical History 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 - Dr French from [facility] Surgical History Tonsillectomy age 21 Surgical History ovarian tumor removed and left ovary Surgical History complete hysterectomy 1993 Surgical History Heart Catherization; [facility] Surgical History Right Shoulder Tear and bone spur removal; [facility] 07-27-12 Surgical History Left Shoulder Rotato [...] overy Hospitalization History complete hysterectomy 19 94 [facility] Other 12-27-2020 History general Narrative - Reported* Type Description Date Medical History Stress Test; [facility], normal per patient Medical History Pap and Pelvic 3 yea rs ago, OBGYN in [place] Medical History Mammogram over 5 yea rs; Normal at that time per patient Medical History CT Abdomen and Pelvi s over 5 years ago; [facility] Medical History Colonoscopy 8 years ago; in [place], normal in patient Medical History Chest X-Ray 12-15-11; normal, [facility] Medical History Echocardiogram; 12-15; [facility] Medical History Cardiolite Stress Te st 12-16-11; [facility] Medical History Check's sugar's bid Medical History Heart Catherization; [facility] Medical History breast cancer 04/2014 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, status post lumpectomy x2, sentinel lymph node biopsy and adjuvant radiotherapy that concluded on 08-21-14 Medical History 11/2016 diabetic shif ting in rt eye - Dr French from [facility] Surgical History Tonsillectomy age 21 Surgical History ovarian tumor removed and left ovary Surgical History complete hysterectomy 1993 Surgical History Heart Catherization; [facility] Surgical History Right Shoulder Tear and bone spur removal; [facility] 07-27-12 Surgical History Left Shoulder Rotato [...] overy Hospitalization History complete hysterectomy 19 94 [facility] Other 12-20-2020 History general Narrative - Reported* Type Description Date Medical History Stress Test; [facility], normal per patient Medical History Pap and Pelvic 3 yea rs ago, OBGYN in [place] Medical History Mammogram over 5 yea rs; Normal at that time per patient Medical History CT Abdomen and Pelvi s over 5 years ago; [facility] Medical History Colonoscopy 8 years ago; in [place], normal in patient Medical History Chest X-Ray 12-15-11; normal, [facility] Medical History Echocardiogram; 12-15; [facility] Medical History Cardiolite Stress Te st 12-16-11; [facility] Medical History Check's sugar's bid Medical History Heart Catherization; [facility] Medical History breast cancer 04/2014 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, status post lumpectomy x2, sentinel lymph node biopsy and adjuvant radiotherapy that concluded on 08-21-14 Medical History 11/2016 diabetic shif ting in rt eye - Dr French from [facility] Surgical History Tonsillectomy age 21 Surgical History ovarian tumor removed and left ovary Surgical History complete hysterectomy 1993 Surgical History Heart Catherization; [facility] Surgical History Right Shoulder Tear and bone spur removal; [facility] 07-27-12 Surgical History Left Shoulder Rotato [...] d left overy Hospitalization History complete hysterectomy [facility] Other 12-04-2020 History general Narrative - Reported* Type Description Date Medical History Stress Test; [facility], normal per patient Medical History Pap and Pelvic 3 yea rs ago, OBGYN in [place] Medical History Mammogram over 5 yea rs; Normal at that time per patient Medical History CT Abdomen and Pelvi s over 5 years ago; [facility] Medical History Colonoscopy 8 years ago; in [place], normal in patient Medical History Chest X-Ray 12-15-11; normal, [facility] Medical History Echocardiogram; 12-15; [facility] Medical History Cardiolite Stress Te st 12-16-11; [facility] Medical History Check's sugar's bid Medical History Heart Catherization; [facility] Medical History breast cancer 04/2014 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, status post lumpectomy x2, sentinel lymph node biopsy and adjuvant radiotherapy that concluded on 08-21-14 Medical History 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 - Dr French from [facility] Surgical History Tonsillectomy age 21 Surgical History ovarian tumor removed and left ovary Surgical History complete hysterectomy 1993 Surgical History Heart Catherization; [facility] Surgical History Right Shoulder Tear and bone spur removal; [facility] 07-27-12 Surgical History Left Shoulder Rotato [...] d left overy Hospitalization History complete hysterectomy [employer] Other 11-08-2020 History general Narrative - Reported* Type Description Date Medical History Stress Test; [facility], normal per patient Medical History Pap and Pelvic 3 yea rs ago, OBGYN in [place] Medical History Mammogram over 5 yea rs; Normal at that time per patient Medical History CT Abdomen and Pelvi s over 5 years ago; [facility] Medical History Colonoscopy 8 years ago; in [place], normal in patient Medical History Chest X-Ray 12-15-11; normal, [facility] Medical History Echocardiogram; 12-15; [facility] Medical History Cardiolite Stress Te st 12-16-11; [facility] Medical History Check's sugar's bid Medical History Heart Catherization; [facility] Medical History breast cancer 04/2014 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, status post lumpectomy x2, sentinel lymph node biopsy and adjuvant radiotherapy that concluded on 08-21-14 Medical History 11/2016 diabetic shif ting in rt eye - Dr French from [facility] Surgical History Tonsillectomy age 21 Surgical History ovarian tumor removed and left ovary Surgical History complete hysterectomy 1993 Surgical History Heart Catherization; [facility] Surgical History Right Shoulder Tear and bone spur removal; [facility] 07-27-12 Surgical History Left Shoulder Rotato [...] d left overy Hospitalization History complete hysterectomy [facility] Other 06-20-2020 History general Narrative - Reported* Type Description Date Medical History Stress Test; [facility], normal per patient Medical History Pap and Pelvic 3 yea rs ago, OBGYN in [place] Medical History Mammogram over 5 yea rs; Normal at that time per patient Medical History CT Abdomen and Pelvi s over 5 years ago; [facility] Medical History Colonoscopy 8 years ago; in [place], normal in patient Medical History Chest X-Ray 12-15-11; normal, [facility] Medical History Echocardiogram; 12-15; [facility] Medical History Cardiolite Stress Te st 12-16-11; [facility] Medical History Check's sugar's bid Medical History Heart Catherization; [facility] Medical History breast cancer 04/2014 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, status post lumpectomy x2, sentinel lymph node biopsy and adjuvant radiotherapy that concluded on 08-21-14 Medical History 11/2016 diabetic shif ting in rt eye - Dr French from [facility] Surgical History Tonsillectomy age 21 Surgical History ovarian tumor removed and left ovary Surgical History complete hysterectomy 1993 Surgical History Heart Catherization; [facility] Surgical History Right Shoulder Tear and bone spur removal; [facility] 07-27-12 Surgical History Left Shoulder Rotato [...] overy Hospitalization History complete hysterectomy 19 94 [facility] Other 05-03-2020 History general Narrative - Reported* Type Description Date Medical History Stress Test; [facility], normal per patient Medical History Pap and Pelvic 3 yea rs ago, OBGYN in [place] Medical History Mammogram over 5 yea rs; Normal at that time per patient Medical History CT Abdomen and Pelvi s over 5 years ago; [facility] Medical History Colonoscopy 8 years ago; in [place], normal in patient Medical History Chest X-Ray 12-15-11; normal, [facility] Medical History Echocardiogram; 12-15; [facility] Medical History Cardiolite Stress Te st 12-16-11; [facility] Medical History Check's sugar's bid Medical History Heart Catherization; [facility] Medical History breast cancer 04/2014 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, status post lumpectomy x2, sentinel lymph node biopsy and adjuvant radiotherapy that concluded on 08-21-14 Medical History 11/2016 diabetic shif ting in rt eye - Dr French from [facility] Surgical History Tonsillectomy age 21 Surgical History ovarian tumor removed and left ovary Surgical History complete hysterectomy 1993 Surgical History Heart Catherization; [facility] Surgical History Right Shoulder Tear and bone spur removal; [facility] 07-27-12 Surgical History Left Shoulder Rotato [...] overy Hospitalization History complete hysterectomy 19 94 [facility] Other 04-26-2020 History general Narrative - Reported* Type Description Date Medical History Stress Test; [facility], normal per patient Medical History Pap and Pelvic 3 yea rs ago, OBGYN in [place] Medical History Mammogram over 5 yea rs; Normal at that time per patient Medical History CT Abdomen and Pelvi s over 5 years ago; [facility] Medical History Colonoscopy 8 years ago; in [place], normal in patient Medical History Chest X-Ray 12-15-11; normal, [facility] Medical History Echocardiogram; 12-15; [facility] Medical History Cardiolite Stress Te st 12-16-11; [facility] Medical History Check's sugar's bid Medical History Heart Catherization; [facility] Medical History breast cancer 04/2014 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, status post lumpectomy x2, sentinel lymph node biopsy and adjuvant radiotherapy that concluded on 08-21-14 Medical History 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 - Dr French from [facility] Surgical History Tonsillectomy age 21 Surgical History ovarian tumor removed and left ovary Surgical History complete hysterectomy 1993 Surgical History Heart Catherization; [facility] Surgical History Right Shoulder Tear and bone spur removal; [facility] 07-27-12 Surgical History Left Shoulder Rotato [...] overy Hospitalization History complete hysterectomy 19 94 [facility] Other 04-21-2020 History general Narrative - Reported* Type Description Date Medical History Stress Test; [facility], normal per patient Medical History Pap and Pelvic 3 yea rs ago, OBGYN in [place] Medical History Mammogram over 5 yea rs; Normal at that time per patient Medical History CT Abdomen and Pelvi s over 5 years ago; [facility] Medical History Colonoscopy 8 years ago; in [place], normal in patient Medical History Chest X-Ray 12-15-11; normal, [facility] Medical History Echocardiogram; 12-15; [facility] Medical History Cardiolite Stress Te st 12-16-11; [facility] Medical History Check's sugar's bid Medical History Heart Catherization; [facility] Medical History breast cancer 04/2014 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, status post lumpectomy x2, sentinel lymph node biopsy and adjuvant radiotherapy that concluded on 08-21-14 Medical History 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 - Dr French from [facility] Surgical History Tonsillectomy age 21 Surgical History ovarian tumor removed and left ovary Surgical History complete hysterectomy 1993 Surgical History Heart Catherization; [facility] Surgical History Right Shoulder Tear and bone spur removal; [facility] 07-27-12 Surgical History Left Shoulder Rotato [...] overy Hospitalization History complete hysterectomy 19 94 [facility] Other 03-12-2020 History general Narrative - Reported* Type Description Date Medical History Stress Test; [facility], normal per patient Medical History Pap and Pelvic 3 yea rs ago, OBGYN in [place] Medical History Mammogram over 5 yea rs; Normal at that time per patient Medical History CT Abdomen and Pelvi s over 5 years ago; [facility] Medical History Colonoscopy 8 years ago; in [place], normal in patient Medical History Chest X-Ray 12-15-11; normal, [facility] Medical History Echocardiogram; 12-15; [facility] Medical History Cardiolite Stress Te st 12-16-11; [facility] Medical History Check's sugar's bid Medical History Heart Catherization; [facility] Medical History breast cancer 04/2014 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, status post lumpectomy x2, sentinel lymph node biopsy and adjuvant radiotherapy that concluded on 08-21-14 Medical History 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 - Dr French from [facility] Surgical History Tonsillectomy age 21 Surgical History ovarian tumor removed and left ovary Surgical History complete hysterectomy 1993 Surgical History Heart Catherization; [facility] Surgical History Right Shoulder Tear and bone spur removal; [facility] 07-27-12 Surgical History Left Shoulder Rotato [...] overy Hospitalization History complete hysterectomy 19 94 [facility] Other 03-07-2020 History general Narrative - Reported* Type Description Date Medical History Stress Test; [facility], normal per patient Medical History Pap and Pelvic 3 yea rs ago, OBGYN in [place] Medical History Mammogram over 5 yea rs; Normal at that time per patient Medical History CT Abdomen and Pelvi s over 5 years ago; [facility] Medical History Colonoscopy 8 years ago; in [place], normal in patient Medical History Chest X-Ray 12-15-11; normal, [facility] Medical History Echocardiogram; 12-15; [facility] Medical History Cardiolite Stress Te st 12-16-11; [facility] Medical History Check's sugar's bid Medical History Heart Catherization; [facility] Medical History breast cancer 04/2014 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, status post lumpectomy x2, sentinel lymph node biopsy and adjuvant radiotherapy that concluded on 08-21-14 Medical History 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 - Dr French from [facility] Surgical History Tonsillectomy age 21 Surgical History ovarian tumor removed and left ovary Surgical History complete hysterectomy 1993 Surgical History Heart Catherization; [facility] Surgical History Right Shoulder Tear and bone spur removal; [facility] 07-27-12 Surgical History Left Shoulder Rotato [...] overy Hospitalization History complete hysterectomy 19 94 [facility] Other 03-04-2020 History general Narrative - Reported* Type Description Date Medical History Stress Test; [facility], normal per patient Medical History Pap and Pelvic 3 yea rs ago, OBGYN in [place] Medical History Mammogram over 5 yea rs; Normal at that time per patient Medical History CT Abdomen and Pelvi s over 5 years ago; [facility] Medical History Colonoscopy 8 years ago; in [place], normal in patient Medical History Chest X-Ray 12-15-11; normal, [facility] Medical History Echocardiogram; 12-15; [facility] Medical History Cardiolite Stress Te st 12-16-11; [facility] Medical History Check's sugar's bid Medical History Heart Catherization; [facility] Medical History breast cancer 04/2014 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, status post lumpectomy x2, sentinel lymph node biopsy and adjuvant radiotherapy that concluded on 08-21-14 Medical History 11/2016 diabetic shif ting in rt eye - Dr French from [facility] Surgical History Tonsillectomy age 21 Surgical History ovarian tumor removed and left ovary Surgical History complete hysterectomy 1993 Surgical History Heart Catherization; [facility] Surgical History Right Shoulder Tear and bone spur removal; [facility] 07-27-12 Surgical History Left Shoulder Rotato [...] overy Hospitalization History complete hysterectomy 19 94 [facility] Other 02-22-2020 History general Narrative - Reported* Type Description Date Medical History Stress Test; [facility], normal per patient Medical History Pap and Pelvic 3 yea rs ago, OBGYN in [place] Medical History Mammogram over 5 yea rs; Normal at that time per patient Medical History CT Abdomen and Pelvi s over 5 years ago; [facility] Medical History Colonoscopy 8 years ago; in [place], normal in patient Medical History Chest X-Ray 12-15-11; normal, [facility] Medical History Echocardiogram; 12-15; [facility] Medical History Cardiolite Stress Te st 12-16-11; [facility] Medical History Check's sugar's bid Medical History Heart Catherization; [facility] Medical History breast cancer 04/2014 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, status post lumpectomy x2, sentinel lymph node biopsy and adjuvant radiotherapy that concluded on 08-21-14 Medical History 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 - Dr French from [facility] Surgical History Tonsillectomy age 21 Surgical History ovarian tumor removed and left ovary Surgical History complete hysterectomy 1993 Surgical History Heart Catherization; [facility] Surgical History Right Shoulder Tear and bone spur removal; [facility] 07-27-12 Surgical History Left Shoulder Rotato [...] d left overy Hospitalization History complete hysterectomy [facility] Other 02-12-2020 History general Narrative - Reported* Type Description Date Medical History Stress Test; [facility], normal per patient Medical History Pap and Pelvic 3 yea rs ago, OBGYN in [place] Medical History Mammogram over 5 yea rs; Normal at that time per patient Medical History CT Abdomen and Pelvi s over 5 years ago; [facility] Medical History Colonoscopy 8 years ago; in [place], normal in patient Medical History Chest X-Ray 12-15-11; normal, [facility] Medical History Echocardiogram; 12-15; [facility] Medical History Cardiolite Stress Te st 12-16-11; [facility] Medical History Check's sugar's bid Medical History Heart Catherization; [facility] Medical History breast cancer 04/2014 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, status post lumpectomy x2, sentinel lymph node biopsy and adjuvant radiotherapy that concluded on 08-21-14 Medical History 11/2016 diabetic shif ting in rt eye - Dr French from [facility] Surgical History Tonsillectomy age 21 Surgical History ovarian tumor removed and left ovary Surgical History complete hysterectomy 1993 Surgical History Heart Catherization; [facility] Surgical History Right Shoulder Tear and bone spur removal; [facility] 07-27-12 Surgical History Left Shoulder Rotato [...] d left overy Hospitalization History complete hysterectomy [employer] [facility] [employer] Other 10-27-2019 History general Narrative - Reported* Type Description Date Medical History Stress Test; [facility], normal per patient Medical History Pap and Pelvic 3 yea rs ago, OBGYN in [place] Medical History Mammogram over 5 yea rs; Normal at that time per patient Medical History CT Abdomen and Pelvi s over 5 years ago; [facility] Medical History Colonoscopy 8 years ago; in [place], normal in patient Medical History Chest X-Ray 12-15-11; normal, [facility] Medical History Echocardiogram; 12-15; [facility] Medical History Cardiolite Stress Te st 12-16-11; [facility] Medical History Check's sugar's bid Medical History Heart Catherization; [facility] Medical History breast cancer 04/2014 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, status post lumpectomy x2, sentinel lymph node biopsy and adjuvant radiotherapy that concluded on 08-21-14 Medical History 11/2016 diabetic shif ting in rt eye - Dr French from [facility] Surgical History Tonsillectomy age 21 Surgical History ovarian tumor removed and left ovary Surgical History complete hysterectomy 1993 Surgical History Heart Catherization; [facility] Surgical History Right Shoulder Tear and bone spur removal; [facility] 07-27-12 Surgical History Left Shoulder Rotato [...] left overy Hospitalization History complete hysterectomy 94 [facility] Other Evaluation noteNo InformationNort [employer] Other Evaluation noteNo assessment information available [facility] Work Phone: Reason for referral (narrative)* Reason appt pt needs cons ult w/ Dr. Cornejo or Viki for evaluation of right shoulder pain Diagnosis 1 Shoulder pain, right (M25.511) Referral Organization [facility] Referring Provider First Name Rin Referring Provider Last Name Lyn Referring Provider Specialty Family Prac meenu Referred Organization [facility] Referred Address ,[place], [place],[address] Referred Provider Specialty Orthopedic S urgery Referral Priority Routine General Notes HoracioFlorinda 02/08/2022 05:31:28 PM > [facility] referral form hard faxed with visit note, med list and insurance card. pt understands she will be contacted to schedule this appt. [facility] Other Summary Purpose Family History Relationship Condition Age at Onset Recorded Date/T rob father Pulmonary emphysema Unknown Not Specified Cerebrovascular accident (CVA) Unknown Advance Directives Advance Directive Response Recorded Date/ Time Advance Directives No February 15, 2017 3:18pm Hospital Course Note MR#: [id number] [facility] Pt. Name: Criselda Morfin Admitted: 08/23/2018 [...] CREATED AUTHOR AUTHOR'S ORGANIZ ATION 12/09/2018 [facility] DATE CREATED AUTHOR AUTHOR'S ORGANIZ ATION 08/31/2022 [facility] DATE CREATED AUTHOR AUTHOR'S ORGANIZ ATION 05/07/2023 [facility] REASON FOR VISIT (unrecogniz ed [...] BE BASED ON THE PRIMARY CLINICAL RECORDS. [employer] provides no warranty or guarantee of the accuracy or completeness of information in this document.
[2024-02-22 09:09] LABS: Alanine Aminotransferase 25 U/L (14-59); Albumin Level 3.8 g/dL (3.4-5.0); Alkaline Phosphatase 136 U/L (46-116); Aspartate Amino Transferase 19 U/L (15-37); Bilirubin Direct 0.1 mg/dL (0.0-0.2); Bilirubin Total 0.4 mg/dL (0.2-1.0); Free T3 2.09 pg/mL (2.18-3.98); Globulin 3.9 g/dL; Thyroid Stimulating Hormone 10.261 uIU/mL (0.358-3.740); Total Protein 7.7 g/dL (6.4-8.2)
[2024-02-22 09:15] LABS: Free T4 0.95 ng/dL (0.76-1.46)
== END 2024-02-22 07:41 | disposition home or self-care (01) ==
LOC: LAB 07:40
PROVIDERS: PCP Family Medicine; Visit Provider Internal Medicine
DX: E03.9 Hypothyroidism, unspecified (principal); E05.90 Thyrotoxicosis, unspecified without thyrotoxic crisis or storm; E05.20 Thyrotoxicosis with toxic multinodular goiter without thyrotoxic crisis or storm
CPT/HCPCS: 36415; 80076; 84439; 84443; 84481

== ENCOUNTER 2024-05-22 07:13 | Outpatient (OUT) | payer MEDICARE, SELFPAY ==
--- OUTSIDE RECORDS SUMMARY | 2024-05-22 07:15 | XMS_ITS | CCD ---
Author Organization [facility] Care Team Providers Care Tissue Packer Name Role Phone Selin Jean Attending Unavailable Ted, Selin Pastor Attending Unavailable CHUCHO HONEYCUTT Attending Unavailable Ted, Selin Pastor Attending Unavailable UNKNOWN, PROVIDER Admitting Unavailable SELF, REFERRED Referring Unavailable SELF, REFERRED Primary Care Unavailable CHIP CEDILLO Attending Unavailable CA Procedure Practitioner Unavailab le UNKNOWN, PROVIDER Surgeon Unavailable Lyn, Rin Unavailable LYN, DR GAR Admitting Unavailable GIRBALJIT, [...] Care Unavailable GIRVIN, DR GAR Attending Unavailable GIRBALJIT, DR GAR Consulting Unavailable DO Rin Nicholson Primary Care Provider DO Rin Nicholson Attending Provider [phone] Jeffrey Urias MD Attending Provider Rin Nicholson DO Primary Care Provider Rin Nicholson DO Referring Provider Rin Nicholson Attending Unavailable LynRin Primary Care Unavailable Rin Nicholson Admitting Unavailable Jeffrey Urias Attending Unavailable Jeffrey Urias Admitting Unavailable Rin Nicholson Referring Unavailable Rin Nicholson Primary Care Unavailable Rin Nicholson MD Primary Care Provider NAE VAZQUEZ Attending Unavailable NAE VAZQUEZ Referring Unavailable Medications Current Medications Medication Drug Class(es) Dates Sig (Normalized) Sig (Original) acetaminophen 500 mg oral tablet (11 sources) Start: 10-04-2023 take 1 tablet by mouth every four hours as needed Acetaminophen (Tylenol Extra Strength) 500 mg tablet Active 500 MG PO Every 4 hours as needed October 03, 2023 11:00pm Tylenol prn Acti ve atorvastatin 10 mg oral tablet (20 sources) HMG-CoA Reductase Inhibitor Start: 02-08-2024 take 1 tablet by mouth once daily Atorvastatin 10 mg tablet Active 0 .ROUTE .COMPLEX February 08, 2024 2:16pm Take 1 tablet by mouth once daily Start: 04-06-2017 End: 02-08-2024 take 1 tablet by mouth once daily Atorvastatin 10 mg tablet Discontinued 10 MG PO Daily April 06, 2017 12:00am February 08, 2024 2:16pm blood sugar diagnostic (OneTouch Ultra Test) (1 source) Start: 10-04-2023 blood sugar diagnostic (OneTouch Ultra Test) Active .ROUTE October 03, 2023 11:00pm USE TO TEST TWICE A DAY DIRECTED blood-glucose meter (Glucometer 3) (1 source) Start: 10-04-2023 blood-glucose meter (Glucometer 3) Active .ROUTE October 03, 2023 11:00pm UAD/ One Touch Glucometer Cobalamin Combinations (COBALAMINE COMBINATIONS PO) (3 sources) Cobalamin Combinations (COBALAMINE COMBINATIONS PO) Take by mouth Active empagliflozin 10 mg oral tablet (4 sources) Sodium-Glucose Cotransporter 2 Inhibitor Start: 03-01-2024 take 1 tablet by mouth in the morning Empagliflozin (Jardiance) 10 mg tablet Active 0 .ROUTE .COMPLEX March 01, 2024 10:37am TAKE 1 TABLET BY MOUTH IN THE MORNING Start: 02-03-2024 End: 03-01-2024 take 1 tablet by mouth once daily in the morning Empagliflozin (Jardiance) 10 mg tablet Discontinued 10 MG PO Every morning February 02, 2024 11:00pm March 01, 2024 10:37am folic acid 0.4 mg / vitamin b12 0.5 mg oral tablet (6 sources) Vitamin B12 Start: 02-01-2024 take 1 tablet by mouth three times weekly Vitamin D86-Smbyr Acid 500-400 mcg tablet Active 1 TAB PO .COMPLEX February 01, 2024 1:47pm 1 tab orally three times a week; Start: 10-17-2023 End: 02-01-2024 Vitamin V54-Majjj Acid 500-4 00 mcg tablet Discontinued 1 TAB PO .COMPLEX October 17, 2023 11:16am February 01, 2024 1:48pm 1 tab orally Tue-Tuesday; Start: 05-31-2019 End: 10-17-2023 take 1 tablet by mouth once daily Vitamin K03-Apvzh Acid 500-400 mcg tablet Discontinued 1 TAB PO Daily October 04, 2023 6:48am October 17, 2023 11:17am glimepiride 1 mg oral tablet (10 sources) Sulfonylurea Start: 10-17-2023 End: 12-30-2023 take 1 tablet by mouth once daily at breakfast Glimepiride 1 mg tablet Active 1 MG PO .COMPLEX 90 90 December 30, 2023 9:12am 1 mg orally take 1 tablet by mouth once daily with breakfast or FIRST MEAL OF THE DAY; Start: 10-04-2023 End: 10-17-2023 take 1 tablet by mouth once daily at breakfast Glimepiride 1 mg tablet Discontinued 0 .ROUTE .COMPLEX 90 October 04, 2023 6:54am October 17, 2023 10:58am take 1 tablet by mouth once daily with breakfast or FIRST MEAL OF THE DAY Start: 04-12-2023 End: 10-04-2023 take 1 tablet by mouth once daily at breakfast Glimepiride 1 mg tablet Discontinued 1 MG PO Daily October 03, 2023 11:00pm October 04, 2023 6:54am with breakfast or the first main meal of the day hydroCHLOROthiazide 12.5 mg oral tablet (20 sources) Thiazide Diuretic Start: 10-17-2023 take 1 tablet by mouth once daily Hydrochlorothiazide 12.5 mg tablet Active 12.5 MG PO Daily October 17, 2023 10:58am Start: 08-22-2023 End: 10-17-2023 take 1 tablet by mouth once daily Hydrochlorothiazide 12.5 mg tablet Discontinued 0 .ROUTE .COMPLEX 90 August 22, 2023 4:44pm October 17, 2023 10:58am take 1 tablet by mouth once daily Start: 04-06-2017 End: 08-22-2023 take 1 tablet by mouth once daily Hydrochlorothiazide 12.5 mg tablet Discontinued 12.5 MG PO Daily April 06, 2017 12:00am August 22, 2023 4:44pm lisinopril 20 mg oral tablet (19 sources) Angiotensin Converting Enzyme Inhibitor Start: 06-04-2022 End: 11-21-2023 take 1 tablet by mouth once daily Lisinopril 20 mg tablet Active 20 MG PO Daily November 21, 2023 9:33am methIMAzole 5 mg oral tablet (6 sources) Thyroid Hormone Synthesis Inhibitor Start: 03-06-2024 End: 03-06-2025 take 1 tablet by mouth once daily methIMAzole (Tapazole) 5 MG tablet Indications: 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) Take 1 tablet (5 mg) by mouth Daily 90 tablet 1 03/06/2024 03/06/2025 Active Start: 02-01-2024 take 1 tablet by mouth once Me thimazole 10 mg tablet Active 10 MG PO Once January 31, 2024 11:00pm Start: 01-24-2024 End: 03-06-2024 take 1 tablet by mouth twice daily methIMAzole (Tapazole) 10 MG tablet Indications: Thyrotoxicosis, unspecified without thyrotoxic crisis or storm (CMS/HCC) Take 1 tablet by mouth twice daily 60 tablet 3 01/24/2024 03/06/2024 Discontinued (Dose adjustment) 24 hr metoprolol succinate 25 mg extended release oral tablet (4 sources) beta-Adrenergic Isai Start: 02-01-2024 take 1 tablet by mouth once daily Metoprolol Succinate 25 mg tablet extended release 24 hr Active 25 MG PO Daily January 31, 2024 11:00pm take 1 tablet by tea th every twenty-four hours metoprolol succinate XL (Toprol-XL) 25 M G 24 hr tablet Take by mouth Do not crush or chew. Active omeprazole 40 mg delayed release oral capsule (20 sources) Proton Pump Inhibitor Start: 04-06-2017 take 1 capsule by mouth once daily Omeprazole 40 mg capsule,delayed release(DR/EC) Active 40 MG PO Daily April 06, 2017 12:00am One Touch Glucometer glucometer (16 sources) Start: 12-24-2011 One Touch Gluc ometer glucometer use as directed Dec, Active OneTouch Ultra - (16 sources) OneTouch Ultra - USE TO TEST TWICE A DAY DIRECTED for 90 days Active OneTouch Ultra - USE TO TEST TWICE A DAY DIRECTED Active pioglitazone 30 mg oral tablet (20 sources) Peroxisome Proliferator Receptor alpha Agonist, Peroxisome Proliferator Receptor gamma Agonist, Thiazolidinedione Start: 12-30-2023 take 1 tablet by mouth once daily Pioglitazone 30 mg tablet Active 0 .ROUTE .COMPLEX December 30, 2023 9:27am Take 1 tablet by mouth once daily Start: 04-06-2017 End: 12-30-2023 take 1 tablet by mouth once daily Pioglitazone 30 mg tablet Discontinued 30 MG PO Daily April 06, 2017 12:00am December 30, 2023 9:27am predniSONE 20 mg oral tablet (3 sources) End: 03-06-2024 predniSONE (Deltasone) 20 MG tablet Take by mouth 03/06/2024 Discontinued (Therapy completed) valsartan 320 mg oral tablet (1 source) [...] Drug Class(es) Dates Sig (Normalized) Sig (Original) amoxicillin 875 mg oral tablet (1 source) Penicillin-class Antibacterial Start: 07-18-2023 End: 10-04-2023 take 1 tablet by mouth twice daily Amoxicillin 875 mg tablet Discontinued 875 MG PO Twice daily 04 02July 17, 2023 11:00pm October 04, 2023 6:50am cyclobenzaprine hydrochloride 5 mg oral tablet (9 sources) Muscle Relaxant Start: 05-29-2019 Cyclobenzaprine HCl 5 MG 1 or 2 tablets by mouth qd hs 11 May, 2019 Not-Taking metFORMIN hydrochloride 1000 mg oral tablet (18 sources) Biguanide Start: 10-04-2023 End: 10-17-2023 take 0.5 tablet by mouth once daily at bedtime, then take 1 tablet by mouth once daily at bedtime Metformin 1,000 mg tablet Discontinued 0 PO Daily at bedtime October 04, 2023 6:47am October 17, 2023 11:16am take 1/2 of a 1000 MG tablet orally daily at bedtime; Start: 04-06-2017 End: 10-04-2023 take 1 tablet by mouth twice daily Metformin 1,000 mg tablet Discontinued 1000 MG PO Twice daily April 06, 2017 12:00am October 04, 2023 6:54am take 0.5 tablet by m outh once daily at bedtime metFORMIN HCl 1000 mg 1/2 tablet Orally qd at bedtime for 90 days Active metFORMIN HCl 10 00 mg TAKE 1 TABLET TWICE A DAY WITH MEALS Active quinapril 40 mg oral tablet (4 sources) Angiotensin Converting Enzyme Inhibitor Start: 04-06-2017 End: 10-04-2023 take 1 tablet by mouth once daily Quinapril 40 mg tablet Discontinued 40 MG PO Daily April 06, 2017 12:00am October 04, 2023 6:49am tamoxifen 20 mg oral tablet (6 sources) Estrogen Agonist/Antagonist Start: 04-06-2017 End: 06-02-2020 take 1 tablet by mouth once daily Tamoxifen 20 mg tablet Discontinued 20 MG PO Daily January 30, 2018 8:57am June 02, 2020 3:05pm Problems Active Problems Problem Classification Problem Date Documented Date Episodic/Chronic Abdominal pain (4 sources) Right upper quadrant pain; 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: [Right upper quadrant pain] 02-03-2024 Episodic Cancer of breast (20 sources) Carcinoma in situ of breast; 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] Chronic Comment on above: 2014 Chronic kidney disease (20 sources) Chronic kidney disease stage 3; 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: [Chronic kidney disease, stage 3 (moderate)] 02-01-2024 Chronic Deficiency and other anemia (16 sources) Anemia in chronic kidney disease; 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: [Anemia in chronic kidney disease] Chronic Deficiency and other anemia (3 sources) Anemia, unspecified; 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: [ANEMIA UNSPECIFIED] Onset: 08-05-2022 Episodic Deficiency and other anemia (1 source) Anemia; 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: [Anemia, unspecified] 10-17-2023 Episodic Diabetes mellitus with complications (18 sources) Type 2 diabetes mellitus; 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: [Type 2 diabetes mellitus with diabetic chronic kidney disease] 02-01-2024 Chronic Diabetes mellitus without complication (20 sources) Type 2 diabetes mellitus well controlled; 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: [Type 2 diabetes mellitus without complications] Onset: 08-05-2022 Chronic Diseases of white blood cells (16 sources) Increased blood leukocyte number; 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: [Elevated white blood cell count, unspecified] Chronic Disorders of lipid metabolism (20 sources) Hyperlipidemia; 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: [Hyperlipidemia, unspecified] Onset: 01-25-2022 Chronic Esophageal disorders (20 sources) Gastroesophageal reflux disease; 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: [Gastro-esophageal reflux disease without esophagitis] Chronic Essential hypertension (20 sources) Hypertensive disorder; 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: [Essential (primary) hypertension] Chronic Fluid and electrolyte disorders (1 source) Hypokalemia; 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: [Hypokalemia] 10-17-2023 Episodic Genitourinary symptoms and ill-defined conditions (2 sources) Nocturia; 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: [NOCTURIA] Onset: 08-05-2022 Episodic Hypertension with complications and secondary hypertension (18 sources) Hypertensive renal disease; 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: [Hypertensive chronic kidney disease with stage 1 through stage 4 chronic kidney disease, or unspecified chronic kidney disease] 02-01-2024 Chronic Nonspecific chest pain (3 sources) Chest pain; 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: [Chest pain, unspecified] Onset: 03-02-2024 02-03-2024 Episodic Nutritional deficiencies (6 sources) Deficiency of other specified B group vitamins; 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: [Cobalamin deficiency] Onset: 01-25-2022 Episodic Other liver diseases (1 source) Steatosis of liver; 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: [Fatty (change of) liver, not elsewhere classified] 02-03-2024 Chronic Other liver diseases (1 source) Fatty (change of) liver, not elsewhere classified; 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: [Other chronic nonalcoholic liver disease] 02-03-2024 Chronic Other nervous system disorders (16 sources) Skin [...] diagnostic imaging of breast] Onset: 08-05-2022 Episodic Thyroid disorders (9 sources) Hyperthyroidism; 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: [Thyrotoxicosis, unspecified without thyrotoxic crisis or storm] Onset: 02-20-2024 10-17-2023 Chronic Unclassified (2 sources) COUGH, UNSPECIFIED; 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: [COUGH, [...] kidney disease Other aftercare (1 source) Other snf (current) drug therapy; 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: [OTH CORRECTION CURRENT DRUG THERAPY] Onset: 05-03-2022 Episodic Other aftercare (1 source) 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 drugs; 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: [CLINICAL INFORMATICS SPEC USE ORAL HYPOGLYCEMIC DX] Onset: 05-03-2022 Episodic Pneumonia (except that caused by tuberculosis or sexually transmitted disease) (1 source) Bronchopneumonia, unspecified organism; 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: [BRONCHOPNEUMONIA UNS ORGANISM] Onset: 05-03-2022 Episodic Unclassified (1 source) COUGH, UNSPECIFIED; 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: [COUGH, UNSPECIFIED] Onset: 04-30-2022 Results Test Name Value Interpretation Reference Range Facility NM heaven perf SPECT rest stron 03-02-2024 NM heaven perf SPECT rest [facility] [place] [address] Nuclear Medicine Report Signed Patient: Leslee Morfin MR#: [id number] : 1955 Acct:[id number] Age/Sex: 68 / F ADM Date: 03/02/24 Loc: NM Room: Type: DEP CLI Attending Dr: Jeffrey Urias MD Copies to: Jeffrey Urias MD, [facility] Ryne Johnson MD Ordering Provider: Jeffrey Urias MD, [facility] Date of Service: 03/02/24 NM/NM ehaven perf SPECT rest str: R07.9 REFERRING PHYSICIAN: Jeffrey Urias MD REASON FOR THE STUDY: Chest pain. PROCEDURE: The patient underwent a 1-day rest/stress protocol. Rest images obtained by injecting 6.2 mCi of Cardiolite. Stress images obtained by injecting 19.6 mCi of Cardiolite. Subsequently, gated SPECT and ejection fraction studies were performed. IMAGING RESULT: This appears to be a fair study. It appears to be normal. There is no clear pattern of ischemia or myocardial infarction. Left ventricular ejection fraction appears normal, calculated at 80%. TID index normal at 0.78. CONCLUSION: 1. Normal myocardial perfusion study. 2. No ischemia or myocardial infarction. 3. Normal left ventricular systolic function and wall motion. 4. No previous study available for comparison. Transcribed By: RACHEL 03/02/242123 Dictated By: Ryne Johnson MD 03/02/24 1551 Signed By: 03/03/24 0704 Normal [facility] STR cardiac stress/cardiolon 03-02-2024 STR cardiac stress/cardiol [place] [address] Cardiac Stress Test Signed Patient: Leslee Morfin MR#: [id number] : 1955 Acct:[id number] Age/Sex: 68 / F ADM Date: 03/02/24 Loc: [place] Room: Type: DEP CLI Attending Dr: Jeffrey Urias MD Copies to: DO Ryne Barlow MD Ordering Provider: Rin Nicholson DO Date of Service: 03/02/24 STR/STR cardiac stress/cardiol: R07.9 - Chest pain, unspecified REFERRING PHYSICIAN: Rin Nicholson DO REASON FOR STUDY: Chest pain. PROCEDURE: The patient underwent a Cardiolite exercise stress test with the Rafael protocol. The patient was able to exercise for a total of 7 minutes 15 seconds, achieving workload of 8 METS. The maximum heart rate was 151 beats per minute, corresponding to 99% of maximum predicted heart rate. Maximum blood pressure was 150/58. The test terminated secondary to fatigue. No chest pain was reported. Blood pressure and heart rate response to exercise was physiologic. Baseline ECG showed normal sinus rhythm, no ST-T changes. Following exercise, nondiagnostic changes were seen. CONCLUSION: 1. Cardiolite exercise stress test with nondiagnostic ST-T changes for exercise-induced ischemia. 2. No provoked chest pain or arrhythmia. 3. Appropriate hemodynamic response to exercise. 4. Good exercise tolerance. 5. Normal heart rate recovery phase. 6. Myocardial perfusion study will be dictated separately. Transcribed By: RACHEL 03/03/24 1251 Dictated By: Ryne Johnson MD 03/02/24 1431 Signed By: 03/03/24 1440 Normal [facility] Globulin Calc (S) [Mass/Vol] on 02-22-2024 Globulin (S) [Mass/Vol] Serum globulin measurement by calculation (mass/volume) [facility] - Chemistry and C hemistry - challengeon 02-22-2024 Albumin [Mass/Vol] 3.8 g/dL 3.4-5.0 [facility] ALP [Catalytic activity/Vol] 136 U/L High 46-116 [facility] ALT [Catalytic activity/Vol] 25 U/L 14-59 [facility] AST [Catalytic activity/Vol] 19 U/L 15-37 [facility] Bilirubin [Mass/Vol] 0.4 mg/dL 0.2-1.0 [facility] Bilirubin.direct [Mass/Vol] 0.1 mg/dL 0.0-0.2 [facility] Free T4 [Mass/Vol] 0.95 ng/dL 0.76-1.46 [facility] Protein [Mass/Vol] 7.7 g/dL 6.4-8.2 [facility] TSH Qn 10.261 m[IU]/L High 0.358-3.740 [facility] No Panel Informationon 02-21 Free Triiodothyronine 2.09 pg/mL Low 2.18-3.98 [facility] Serum or plasma albumin/glob ulin mass ratioon 02-22-2024 Albumin/Globulin [Mass ratio] Serum or plasma albumin/globulin mass ratio [facility] MM screening mammo BI w/CADo n 05-03-2023 MM screening mammo BI w/CAD [facility] [place] [address] [place] [address] Mammography Report Signed Patient: Leslee Morfin MR#: [id number] : 1955 Acct:[id number] Age/Sex: 67 / F ADM Date: 05/03/23 Loc: [place] Room: Type: [facility] Attending Dr: Rin Nicholson DO Copies [...] Carmela Cuevas M.D.05/03/2023 1:52 PM Dictation Location: [facility] Transcribed By: [facility] 05/03/23 1352 Dictated By: Carmela Cuevas MD 05/03/23 1349 Signed By: 05/03/23 1352 Normal [facility] PROF CHEM 8 (BAS METB)on Anion gap [Moles/Vol] 14.4 mmol/L Normal [facility] Comment on above: Performed By: #### B MP #### [facility] [address] [address] [address] Raf Pearl Calcium [Mass/Vol] 9.3 mg/dL Normal 8.5-10.1 [facility] Comment on above: Performed By: #### B MP #### [facility] [address] [address] [address] Raf Pearl Chloride [Moles/Vol] 102 mmol/L Normal 98-107 [facility] Comment on above: Performed By: #### B MP #### [facility] [address] [address] [address] Raf Pearl CO2 [Moles/Vol] 26.9 mmol/L Normal 21.0-32.0 [facility] Comment on above: Performed By: #### B MP #### [facility] [address] [address] [address] Raf Pearl Creatinine [Mass/Vol] 1.32 mg/dL Critically high 0.55-1.02 [facility] Comment on above: Performed By: #### B MP #### [facility] [address] [address] [address] Raf Pearl EGFR-AF CYMRO 49 mL/min/1.73m2 Critically low >=60 [facility] Comment on above: Performed By: #### B MP #### [facility] [address] [address] [address] Raf Pearl EGFR-NON AF CYMRO 40 mL/min/1.73m2 Critically low >=60 [facility] Comment on above: Performed By: #### B MP #### [facility] [address] [address] [address] Raf Pearl Glucose [Mass/Vol] 151 mg/dL Critically high 74-106 T [facility] Comment on above: Performed By: #### B MP #### [facility] [address] [address] [address] Raf Pearl Potassium [Moles/Vol] 4.3 mmol/L Normal 3.5-5.1 [facility] Comment on above: Performed By: #### B MP #### [facility] [address] [address] [address] Raf Pearl Sodium [Moles/Vol] 139 mmol/L Normal 136-145 [facility] Comment on above: Performed By: #### B MP #### [facility] [address] [address] [address] Raf Pearl Urea nitrogen [Mass/Vol] 17.0 mg/dL Normal 7.0-18.0 [facility] Comment on above: Performed By: #### B MP #### [facility] [address] [address] [address] Raf Pearl Urea nitrogen/Creatinine [Mass ratio] 12.9 mg/mg Normal [facility] Comment on above: Performed By: #### B MP #### [facility] [address] [address] [address] Raf Pearl PROF CHEM 8 (BAS METB)on Anion gap [Moles/Vol] 9.7 mmol/L Normal [facility] Comment on above: Performed By: #### B MP #### [facility] [address] [address] [address] Raf Pearl Calcium [Mass/Vol] 9.1 mg/dL Normal 8.5-10.1 [facility] Comment on above: Performed By: #### B MP #### [facility] [address] [address] [address] Raf Pearl Chloride [Moles/Vol] 100 mmol/L Normal 98-107 [facility] Comment on above: Performed By: #### B MP #### [facility] [address] [address] [address] Raf Pearl CO2 [Moles/Vol] 28.0 mmol/L Normal 21.0-32.0 [facility] Comment on above: Performed By: #### B MP #### [facility] [address] [address] [address] Raf Pearl Creatinine [Mass/Vol] 1.18 mg/dL Critically high 0.55-1.02 [facility] Comment on above: Performed By: #### B MP #### [facility] [address] [address] [address] Raf Pearl EGFR-AF CYMRO 56 mL/min/1.73m2 Critically low >=60 [facility] Comment on above: Performed By: #### B MP #### [facility] [address] [address] [address] Raf Pearl EGFR-NON AF CYMRO 46 mL/min/1.73m2 Critically low >=60 [facility] Comment on above: Performed By: #### B MP #### [facility] [address] [address] [address] Raf Pearl Glucose [Mass/Vol] 113 mg/dL Critically high 74-106 T [facility] Comment on above: Performed By: #### B MP #### [facility] [address] [address] [address] Raf Pearl Potassium [Moles/Vol] 3.7 mmol/L Normal 3.5-5.1 [facility] Comment on above: Performed By: #### B MP #### [facility] [address] [address] [address] Raf Pearl Sodium [Moles/Vol] 134 mmol/L Critically low 136-145 Th [facility] Comment on above: Performed By: #### B MP #### [facility] [address] [address] [address] Raf Pearl Urea nitrogen [Mass/Vol] 13.0 mg/dL Normal 7.0-18.0 [facility] Comment on above: Performed By: #### B MP #### [facility] [address] [place] [address] Dr. Raf Pearl Urea nitrogen/Creatinine [Mass ratio] 11.0 mg/mg Normal [facility] Comment on above: Performed By: #### B MP #### [facility] [address] [place] [address] Dr. Raf Pearl FOLATE ([facility])on Folate >20.0 Normal >3.0 [facility] Comment on above: Result Comment: A se rum folate concentration of less than 3.1 ng/mL is considered to represent clinical deficiency. Performed By: #### F OLALC #### [facility] [address] [place] [address] Dr. Raf Pearl CBC AUTO DIFFon 07-31-2022 BASO # 0.1 103/ul Normal 0.0-0.1 [facility] Comment on above: Performed By: #### M ALBR #### [facility] [address] [place] [address] Dr. Raf Pearl Basophils/100 WBC (Bld) 1.3 % Normal 0.2-2.0 [facility] Comment on above: Performed By: #### M ALBR #### [facility] [address] [place] [address] Dr. Raf Pearl EO # 0.4 103/ul Normal 0.0-0.7 [facility] Comment on above: Performed By: #### M ALBR #### [facility] [address] [place] [address] Dr. Raf Pearl Eosinophils/100 WBC (Bld) 4.5 % Normal 0.9-7.0 [facility] Comment on above: Performed By: #### M ALBR #### [facility] [address] [place] [address] Dr. Raf Pearl Erythrocyte distribution width (RBC) [Ratio] 13.2 % Normal 11.0-15.0 [facility] Comment on above: Performed By: #### M ALBR #### [facility] [facility] [address] [place] [address] Dr. Raf Pearl Hematocrit (Bld) [Volume fraction] 33.8 % Critically low 36.0-48.0 [facility] Comment on above: Performed By: #### M ALBR #### [facility] [address] [place] [address] Dr. Raf Pearl Hemoglobin (Bld) [Mass/Vol] 11.5 g/dL Critically low 12.0-16.0 [facility] Comment on above: Performed By: #### M ALBR #### [facility] [address] [place] [address] Dr. Raf eParl IG # 0.02 10e3/ul Normal 0.00-0.03 [facility] Comment on above: Performed By: #### M ALBR #### [facility] [address] [place] [address] Dr. Raf Pearl IG % 0.2 % Normal 0.0-0.5 [facility] Comment on above: Performed By: #### M ALBR #### [facility] [address] [place] [address] Dr. Raf Pearl LYMPH # 2.6 103/ul Normal 1.2-3.8 [facility] Comment on above: Performed By: #### M ALBR #### [facility] [address] [place] [address] Dr. Raf Pearl Lymphocytes/100 WBC (Bld) 31.6 % Normal 20.5-60.0 [facility] Comment on above: Performed By: #### M ALBR #### [facility] [address] [place] [address] Dr. Raf Pearl MANUAL DIFF REQ NO Normal [facility] Comment on above: Performed By: #### M ALBR #### [facility] [address] [place] [address] Dr. Raf Pearl MCH (RBC) [Entitic mass] 31.1 pg Normal 26.7-34.0 [facility] Comment on above: Performed By: #### M ALBR #### [facility] [address] [place] [address] Dr. Raf Pearl MCHC (RBC) [Mass/Vol] 34.0 g/dL Normal 29.9-35.2 [facility] Comment on above: Performed By: #### M ALBR #### [facility] [address] [place] [address] Dr. Raf Pearl MCV (RBC) [Entitic vol] 91.4 fL Normal 81.0-99.0 [facility] Comment on above: Performed By: #### M ALBR #### [facility] [address] [place] [address] Dr. Raf Pearl MONO # 0.6 103/ul Normal 0.3-0.8 [facility] Comment on above: Performed By: #### M ALBR #### [facility] [address] [place] [address] Dr. Raf Pearl Monocytes/100 WBC (Bld) 7.2 % Normal 1.7-12.0 [facility] Comment on above: Performed By: #### M ALBR #### [facility] [address] [place] [address] Dr. Raf Pearl NEUT # 4.6 103/ul Normal 1.4-6.5 [facility] Comment on above: Performed By: #### M ALBR #### [facility] [address] [place] [address] Dr. Raf Pearl Neutrophils/100 WBC (Bld) 55.2 % Normal 43.0-75.0 [facility] Comment on above: Performed By: #### M ALBR #### [facility] [address] [place] [address] Dr. Raf Pearl Platelet mean volume (Bld) [Entitic vol] 10.0 fL Normal 9.5-13.5 [facility] Comment on above: Performed By: #### M ALBR #### [facility] [address] [place] [address] Dr. Raf Pearl PLT 352 103/ul Normal 150-450 [facility] Comment on above: Performed By: #### M ALBR #### [facility] [address] [place] [address] Dr. Raf Pearl RBC 3.70 106/ul Critically low 4.20-5.40 [facility] Comment on above: Performed By: #### M ALBR #### [facility] [address] [address] [address] Raf Pearl WBC 8.2 103/ul Normal 4.0-11.0 [facility] Comment on above: Performed By: #### M ALBR #### [facility] [address] [address] [address] Raf Pearl CULTURE URINEon 07-31-2022 CULTURE URINE Culture Observations: NO GROWTH. Normal [facility] Comment on above: Performed By: #### B MP #### [facility] [address] [address] [address] Raf Pearl GLYCOHEMOGLOBIN A1Con 2022 ADA RECOMMENDATION SEE BELOW Normal [facility] Comment on above: Result Comment: ADA RECOMMENDED LIMIT 4.0 - 6.0 ADA THERAPEUTIC TARGET < 7.0 ACTION SUGGESTED > 7.0 Performed By: #### B MP #### [facility] [address] [place] [address] Dr. Raf Pearl Glucose [Mass/Vol] 140 mg/dL Normal [facility] Comment on above: Performed By: #### B MP #### [facility] [address] [place] [address] Dr. Raf Pearl HbA1c (Bld) [Mass fraction] 6.5 % Critically high 4.5-6.2 [facility] Comment on above: Performed By: #### B MP #### [facility] [address] [place] [address] Dr. Raf Pearl LIPID PROFILEon 07-31-2022 CHOL-HDL RATIO NORM SEE BELOW Normal [facility] Comment on above: Result Comment: 3.3 - 4.4 LOW RISK 4.4 - 7.1 AVERAGE RISK 7.1 - 11.0 MODERATE RISK >11.0 HIGH RISK Performed By: #### C MP, LIPID, TSH #### [facility] [address] [place] [address] Dr. Raf Pearl Cholesterol [Mass/Vol] 166 mg/dL Normal <=200 [facility] Comment on above: Performed By: #### C MP, LIPID, TSH #### [facility] [address] [address] [address] Raf Pearl Cholesterol in HDL [Mass/Vol] 57 mg/dL Normal 40-60 [facility] Comment on above: Performed By: #### C MP, LIPID, TSH #### [facility] [address] [address] [address] Raf Pearl Cholesterol in LDL [Mass/Vol] 91.4 mg/dL Normal [facility] Comment on above: Performed By: #### C MP, LIPID, TSH #### [facility] [address] [address] [address] Raf Pearl Cholesterol.total/Cho lesterol in HDL [Mass ratio] 2.9 {ratio} Normal [facility] Comment on above: Performed By: #### C MP, LIPID, TSH #### [facility] [address] [address] [address] Raf Pearl HDL NORMAL > or = 60 mg/dl - LOW CARDIOVASCULAR RISK <40 mg/dl - HIGH CARDIOVASCULAR RISK Normal [facility] Comment on above: Performed By: #### C MP, LIPID, TSH #### [facility] [address] [address] [address] Raf Pearl LDL CALC NORMAL SEE BELOW Normal [facility] Comment on above: Result Comment: <100 mg/dl OPTIMAL 100 - 129 mg/dl NEAR OR ABOVE OPTIMAL 130 - 159 mg/dl BORDERLINE HIGH 160 - 189 mg/dl HIGH >190 mg/dl VERY HIGH Performed By: #### C MP, LIPID, TSH #### [facility] [address] [address] [address] Raf Pearl Triglyceride [Mass/Vol] 88 mg/dL Normal <=150 [facility] Comment on above: Performed By: #### C MP, LIPID, TSH #### [facility] [address] [address] [address] Raf Pearl VLDL CALC 17.6 mg/dL Normal [facility] Comment on above: Performed By: #### C MP, LIPID, TSH #### [facility] [address] [address] [address] Raf Pearl MICROALBUMIN, RAND URon 07-17 mALB <1.3 Normal <=30.0 [facility] Comment on above: Performed By: #### M ALBR #### [facility] [address] [address] [address] Raf Pearl PROF 14(COMP METB)on 023 Albumin [Mass/Vol] 3.6 g/dL Normal 3.4-5.0 [facility] Comment on above: Performed By: #### C MP, LIPID, TSH #### [facility] [address] [address] [address] Raf Pearl Albumin/Globulin [Mass ratio] 1.0 {ratio} Normal [facility] Comment on above: Performed By: #### C MP, LIPID, TSH #### [facility] [address] [place] [address] Dr. Raf Pearl ALP [Catalytic activity/Vol] 70 U/L Normal 46-116 [facility] Comment on above: Performed By: #### C MP, LIPID, TSH #### [facility] [address] [address] [address] Raf Pearl ALT [Catalytic activity/Vol] 22 U/L Normal 14-59 [facility] Comment on above: Performed By: #### C MP, LIPID, TSH #### [facility] [address] [address] [address] Raf Pearl Anion gap [Moles/Vol] 11.8 mmol/L Normal [facility] Comment on above: Performed By: #### C MP, LIPID, TSH #### [facility] [address] [address] [address] Raf Pearl AST [Catalytic activity/Vol] 19 U/L Normal 15-37 [facility] Comment on above: Performed By: #### C MP, LIPID, TSH #### [facility] [address] [address] [address] Raf Pearl Bilirubin [Mass/Vol] 0.3 mg/dL Normal 0.2-1.0 [facility] Comment on above: Performed By: #### C MP, LIPID, TSH #### [facility] [address] [address] [address] Raf Pearl Calcium [Mass/Vol] 9.0 mg/dL Normal 8.5-10.1 [facility] Comment on above: Performed By: #### C MP, LIPID, TSH #### [facility] [address] [address] [address] Raf Pearl Chloride [Moles/Vol] 104 mmol/L Normal 98-107 [facility] Comment on above: Performed By: #### C MP, LIPID, TSH #### [facility] [address] [place] [address] Dr. Raf Pearl CO2 [Moles/Vol] 28.6 mmol/L Normal 21.0-32.0 [facility] Comment on above: Performed By: #### C MP, LIPID, TSH #### [facility] [address] [place] [address] Dr. Raf Pearl Creatinine [Mass/Vol] 1.48 mg/dL Critically high 0.55-1.02 [facility] Comment on above: Performed By: #### C MP, LIPID, TSH #### [facility] [address] [place] [address] Dr. Raf Pearl EGFR-AF CYMRO 43 mL/min/1.73m2 Critically low >=60 [facility] Comment on above: Performed By: #### C MP, LIPID, TSH #### [facility] [address] [place] [address] Dr. Raf Pearl EGFR-NON AF CYMRO 35 mL/min/1.73m2 Critically low >=60 [facility] Comment on above: Performed By: #### C MP, LIPID, TSH #### [facility] [address] [place] [address] Dr. Raf Pearl Globulin (S) [Mass/Vol] 3.5 g/dL Normal [facility] Comment on above: Performed By: #### C MP, LIPID, TSH #### [facility] [address] [place] [address] Dr. Raf Pearl Glucose [Mass/Vol] 102 mg/dL Normal 74-106 [facility] Comment on above: Performed By: #### C MP, LIPID, TSH #### [facility] [address] [address] [address] Raf Pearl Potassium [Moles/Vol] 4.4 mmol/L Normal 3.5-5.1 [facility] Comment on above: Performed By: #### C MP, LIPID, TSH #### [facility] [address] [address] [address] Raf Pearl Protein [Mass/Vol] 7.1 g/dL Normal 6.4-8.2 [facility] Comment on above: Performed By: #### C MP, LIPID, TSH #### [facility] [address] [place] [address] Dr. Raf Pearl Sodium [Moles/Vol] 140 mmol/L Normal 136-145 [facility] Comment on above: Performed By: #### C MP, LIPID, TSH #### [facility] [address] [place] [address] Dr. Raf Pearl Urea nitrogen [Mass/Vol] 21.0 mg/dL Critically high 7.0-18.0 [facility] Comment on above: Performed By: #### C MP, LIPID, TSH #### [facility] [address] [place] [address] Dr. Raf Pearl Urea nitrogen/Creatinine [Mass ratio] 14.2 mg/mg Normal [facility] Comment on above: Performed By: #### C MP, LIPID, TSH #### [facility] [address] [place] [address] Dr. Raf Pearl TSHon 07-31-2022 TSH 2.298 uIU/mL Normal 0.358-3.740 [facility] Comment on above: Performed By: #### C MP, LIPID, TSH #### [facility] [address] [place] [address] Dr. Raf Pearl UA RANDOM W/MICROSCOPICon BACTERIA NONE SEEN Normal NONE SEEN [facility] Comment on above: Performed By: #### B MP #### [facility] [address] [place] [address] Dr. Raf Pearl Bilirubin Ql (U) Negative Normal NEGATIVE [facility] Comment on above: Performed By: #### B MP #### [facility] [address] [place] [address] Dr. Raf Pearl CAST NONE SEEN Normal NONE SEEN [facility] Comment on above: Performed By: #### B MP #### [facility] [address] [place] [address] Dr. Raf Pearl Clarity (U) CLEAR Normal CLEAR [facility] Comment on above: Performed By: #### B MP #### [facility] [address] [place] [address] Dr. Raf Pearl Color (U) LT. YELLOW Normal YELLOW [facility] Comment on above: Performed By: #### B MP #### [facility] [address] [place] [address] Dr. Raf Pearl Crystals LM Nom (Urine sed) NONE SEEN Normal NONE SEEN [facility] Comment on above: Performed By: #### B MP #### [facility] [address] [place] [address] Dr. Raf Pearl Epithelial cells LM Ql (Urine sed) NONE SEEN Normal NONE SEEN /RARE [facility] Comment on above: Performed By: #### B MP #### [facility] [address] [place] [address] Dr. Raf Pearl Glucose Ql (U) Negative Normal NEGATIVE The [facility] Comment on above: Performed By: #### B MP #### [facility] [address] [place] [address] Dr. Raf Pearl Hemoglobin Ql (U) Negative Normal NEGATIVE [facility] Comment on above: Performed By: #### B MP #### [facility] [address] [place] [address] Dr. Raf Pearl Ketones Ql (U) Negative Normal NEGATIVE The [facility] Comment on above: Performed By: #### B MP #### [facility] [address] [place] [address] Dr. Raf Pearl LEUKOCYTES Negative Normal NEGATIVE [facility] Comment on above: Performed By: #### B MP #### [facility] [address] [place] [address] Dr. Raf Pearl MUCOUS NONE SEEN Normal NONE SEEN [facility] Comment on above: Performed By: #### B MP #### [facility] [address] [place] [address] Dr. Raf Pearl Nitrite Ql (U) Negative Normal NEGATIVE The [facility] Comment on above: Performed By: #### B MP #### [facility] [address] [place] [address] Dr. Raf Pearl pH (U) 7.0 [pH] Normal 5-9 [facility] Comment on above: Performed By: #### B MP #### [facility] [address] [place] [address] Dr. Raf Pearl RBC 0-2 Normal 0-2 [facility] Comment on above: Performed By: #### B MP #### [facility] [address] [place] [address] Dr. Raf Pearl SPEC GRAVITY <=1.005 Abnormal 1.005-<=1.025 [facility] Comment on above: Performed By: #### B MP #### [facility] [address] [place] [address] Dr. Raf Pearl UA PROTEIN Negative Normal NEGATIVE/ TRACE [facility] Comment on above: Performed By: #### B MP #### [facility] [address] [place] [address] Dr. Raf Pearl Urobilinogen Qn (U) 0.2 {Tawana'U}/dL Normal 0.2 - 1. 0 [facility] Comment on above: Performed By: #### B MP #### [facility] [address] [place] [address] Dr. Raf Pearl WBC NONE SEEN Normal NONE SEEN [facility] Comment on above: Performed By: #### B MP #### [facility] [address] [place] [address] Dr. Raf Pearl VITAMIN B12on 07-31-2022 Cobalamin (Vitamin B12) [Mass/Vol] 600.0 pg/mL Normal 193.0-986.0 [facility] Comment on above: Performed By: #### B MP #### [facility] [address] [place] [address] Dr. Raf Pearl Covid-19 PCR ([facility])on 04-18 SARS-CoV-2 (COVID-19) RNA KHANH+probe Ql (Unsp spec) Not detected Normal NOT DETECTED [facility] Comment on above: Result Comment: When [...] for this test is supported by the Lab Associate of Health and Human Service's declaration that [...] longer be used). Performed By: #### [facility] #### [facility] [address] [place] [address] Dr. Raf Pearl INFLUENZA A AND B AGon 04-30 [facility] SEE BELOW Normal [facility] Comment on above: Result Comment: Nega tive for Flu A protein angiten. Infection due to Flu A cannot be ruled out. Flu A angiten in the sample may be below the detection limit of the test. Performed By: #### B MP #### [facility] [address] [place] [address] Dr. [facility] Normal [facility] Comment on above: Result Comment: Nega tive for Flu B protein antigen. Infection due to Flu B cannot be ruled out. Flu B antigen in the sample may be below the detection limit of the test. Performed By: #### B MP #### [facility] [address] [place] [address] Dr. Raf Pearl INFLUENZA A AG Negative Normal NEGATIVE SEE COMMENT [facility] Comment on above: Performed By: #### B MP #### [facility] [address] [place] [address] Dr. Raf Pearl INFLUENZA B AG Negative Normal NEGATIVE SEE COMMENT [facility] Comment on above: Performed By: #### B MP #### [facility] [address] [place] [address] Dr. Raf Pearl XR CHEST 2 Von [...] BUDDY LEMOS Date: 2022-04-30 19:38 Normal [facility] PROF CHEM 8 (BAS METB)on Anion gap [Moles/Vol] 12.6 mmol/L Normal Th [facility] Comment on above: Performed By: #### B MP #### [facility] [address] [place] [address] Dr. Raf Pearl Calcium [Mass/Vol] 9.4 mg/dL Normal 8.5-10.1 [facility] Comment on above: Performed By: #### B MP #### [facility] [address] [place] [address] Dr. Raf Pearl Chloride [Moles/Vol] 99 mmol/L Normal 98-107 [facility] Comment on above: Performed By: #### B MP #### [facility] [address] [place] [address] Dr. Raf Pearl CO2 [Moles/Vol] 29.3 mmol/L Normal 21.0-32.0 [facility] Comment on above: Performed By: #### B MP #### [facility] [address] [address] [address] Raf Pearl Creatinine [Mass/Vol] 1.15 mg/dL Critically high 0.55-1.02 [facility] Comment on above: Performed By: #### B MP #### [facility] [address] [address] [address] Raf Pearl EGFR-AF CYMRO 57 mL/min/1.73m2 Critically low >=60 [facility] Comment on above: Performed By: #### B MP #### [facility] [address] [address] [address] Raf Pearl EGFR-NON AF CYMRO 47 mL/min/1.73m2 Critically low >=60 [facility] Comment on above: Performed By: #### B MP #### [facility] [address] [address] [address] Raf Pearl Glucose [Mass/Vol] 146 mg/dL Critically high 74-106 [facility] Comment on above: Performed By: #### B MP #### [facility] [address] [address] [address] Raf Pearl Potassium [Moles/Vol] 3.9 mmol/L Normal 3.5-5.1 [facility] Comment on above: Performed By: #### B MP #### [facility] [address] [address] [address] Raf Pearl Sodium [Moles/Vol] 137 mmol/L Normal 136-145 [facility] Comment on above: Performed By: #### B MP #### [facility] [address] [address] [address] Raf Pearl Urea nitrogen [Mass/Vol] 10.0 mg/dL Normal 7.0-18.0 [facility] Comment on above: Performed By: #### B MP #### [facility] [address] [address] [address] Raf Pearl Urea nitrogen/Creatinine [Mass ratio] 8.7 mg/mg Normal [facility] Comment on above: Performed By: #### B MP #### [facility] [address] [address] [address] Raf Pearl CBC AUTO DIFFon 01-22-2022 BASO # 0.1 103/ul Normal 0.0-0.1 [facility] Comment on above: Performed By: #### B MP #### [facility] [address] [place] [address] Dr. Raf Pearl Basophils/100 WBC (Bld) 1.5 % Normal 0.2-2.0 [facility] Comment on above: Performed By: #### B MP #### [facility] [address] [place] [address] Dr. Raf Pearl EO # 0.3 103/ul Normal 0.0-0.7 [facility] Comment on above: Performed By: #### B MP #### [facility] [address] [place] [address] Dr. Raf Pearl Eosinophils/100 WBC (Bld) 5.3 % Normal 0.9-7.0 [facility] Comment on above: Performed By: #### B MP #### [facility] [address] [place] [address] Dr. Raf Pearl Erythrocyte distribution width (RBC) [Ratio] 13.1 % Normal 11.0-15.0 [facility] Comment on above: Performed By: #### B MP #### [facility] [address] [place] [address] Dr. Rfa Pearl Hematocrit (Bld) [Volume fraction] 36.4 % Normal 36.0-48.0 [facility] Comment on above: Performed By: #### B MP #### [facility] [address] [place] [address] Dr. Raf Pearl Hemoglobin (Bld) [Mass/Vol] 12.4 g/dL Normal 12.0-16.0 [facility] Comment on above: Performed By: #### B MP #### [facility] [address] [place] [address] Dr. Raf Pearl IG # 0.02 10e3/ul Normal 0.00-0.03 [facility] Comment on above: Performed By: #### B MP #### [facility] [address] [place] [address] Dr. Raf Pearl IG % 0.3 % Normal 0.0-0.5 [facility] Comment on above: Performed By: #### B MP #### [facility] [address] [place] [address] Dr. Raf Pearl LYMPH # 2.0 103/ul Normal 1.2-3.8 [facility] Comment on above: Performed By: #### B MP #### [facility] [address] [place] [address] Dr. Raf Pearl Lymphocytes/100 WBC (Bld) 31.6 % Normal 20.5-60.0 [facility] Comment on above: Performed By: #### B MP #### [facility] [address] [place] [address] Dr. Raf Pearl MANUAL DIFF REQ NO Normal [facility] Comment on above: Performed By: #### B MP #### [facility] [address] [place] [address] Dr. Raf Pearl MCH (RBC) [Entitic mass] 31.4 pg Normal 26.7-34.0 [facility] Comment on above: Performed By: #### B MP #### [facility] [address] [place] [address] Dr. Raf Pearl MCHC (RBC) [Mass/Vol] 34.1 g/dL Normal 29.9-35.2 [facility] Comment on above: Performed By: #### B MP #### [facility] [address] [place] [address] Dr. Raf Pearl MCV (RBC) [Entitic vol] 92.2 fL Normal 81.0-99.0 [facility] Comment on above: Performed By: #### B MP #### [facility] [address] [place] [address] Dr. Raf Pearl MONO # 0.4 103/ul Normal 0.3-0.8 [facility] Comment on above: Performed By: #### B MP #### [facility] [address] [place] [address] Dr. Raf Pearl Monocytes/100 WBC (Bld) 6.8 % Normal 1.7-12.0 [facility] Comment on above: Performed By: #### B MP #### [facility] [address] [place] [address] Dr. Raf Pearl NEUT # 3.4 103/ul Normal 1.4-6.5 [facility] Comment on above: Performed By: #### B MP #### [facility] [address] [place] [address] Dr. Raf Pearl Neutrophils/100 WBC (Bld) 54.5 % Normal 43.0-75.0 [facility] Comment on above: Performed By: #### B MP #### [facility] [facility] [address] [place] [address] Dr. Raf Pearl Platelet mean volume (Bld) [Entitic vol] 9.7 fL Normal 9.5-13.5 [facility] Comment on above: Performed By: #### B MP #### [facility] [address] [place] [address] Dr. Raf Pearl PLT 384 103/ul Normal 150-450 [facility] Comment on above: Performed By: #### B MP #### [facility] [address] [place] [address] Dr. Raf Pearl RBC 3.95 106/ul Critically low 4.20-5.40 [facility] Comment on above: Performed By: #### B MP #### [facility] [address] [place] [address] Dr. Raf Pearl WBC 6.2 103/ul Normal 4.0-11.0 [facility] Comment on above: Performed By: #### B MP #### [facility] [address] [place] [address] Dr. Raf Pearl GLYCOHEMOGLOBIN A1Con 2021 ADA RECOMMENDATION SEE BELOW Normal [facility] Comment on above: Result Comment: ADA RECOMMENDED LIMIT 4.0 - 6.0 ADA THERAPEUTIC TARGET < 7.0 ACTION SUGGESTED > 7.0 Performed By: #### A 1C #### [facility] [address] [address] [address] Raf Pearl Glucose [Mass/Vol] 137 mg/dL Normal [facility] Comment on above: Performed By: #### A 1C #### [facility] [address] [address] [address] Raf Pearl HbA1c (Bld) [Mass fraction] 6.4 % Critically high 4.5-6.2 [facility] Comment on above: Performed By: #### A 1C #### [facility] [address] [address] [address] Raf Pearl LIPID PROFILEon 01-22-2022 CHOL-HDL RATIO NORM SEE BELOW Normal [facility] Comment on above: Result Comment: 3.3 - 4.4 LOW RISK 4.4 - 7.1 AVERAGE RISK 7.1 - 11.0 MODERATE RISK >11.0 HIGH RISK Performed By: #### B MP #### [facility] [address] [place] [address] Dr. Raf Pearl Cholesterol [Mass/Vol] 165 mg/dL Normal <=200 [facility] Comment on above: Performed By: #### B MP #### [facility] [address] [address] [address] Raf Pearl Cholesterol in HDL [Mass/Vol] 66 mg/dL Critically high 40-60 [facility] Comment on above: Performed By: #### B MP #### [facility] [address] [address] [address] Raf Pearl Cholesterol in LDL [Mass/Vol] 87.8 mg/dL Normal [facility] Comment on above: Performed By: #### B MP #### [facility] [address] [address] [address] Raf Pearl Cholesterol.total/Cho lesterol in HDL [Mass ratio] 2.5 {ratio} Normal [facility] Comment on above: Performed By: #### B MP #### [facility] [address] [address] [address] Raf Pearl HDL NORMAL > or = 60 mg/dl - LOW CARDIOVASCULAR RISK <40 mg/dl - HIGH CARDIOVASCULAR RISK Normal [facility] Comment on above: Performed By: #### B MP #### [facility] [address] [address] [address] Raf Pearl LDL CALC NORMAL SEE BELOW Normal [facility] Comment on above: Result Comment: <100 mg/dl OPTIMAL 100 - 129 mg/dl NEAR OR ABOVE OPTIMAL 130 - 159 mg/dl BORDERLINE HIGH 160 - 189 mg/dl HIGH >190 mg/dl VERY HIGH Performed By: #### B MP #### [facility] [address] [address] [address] Raf Pearl Triglyceride [Mass/Vol] 56 mg/dL Normal <=150 [facility] Comment on above: Performed By: #### B MP #### [facility] [address] [address] [address] Raf Pearl VLDL CALC 11.2 mg/dL Normal [facility] Comment on above: Performed By: #### B MP #### [facility] [address] [place] [address] Dr. Raf Pearl PROF 14(COMP METB)on 022 Albumin [Mass/Vol] 4.0 g/dL Normal 3.4-5.0 [facility] Comment on above: Performed By: #### B MP #### [facility] [address] [place] [address] Dr. Raf Pearl Albumin/Globulin [Mass ratio] 1.1 {ratio} Normal [facility] Comment on above: Performed By: #### B MP #### [facility] [address] [address] [address] Raf Pearl ALP [Catalytic activity/Vol] 81 U/L Normal 46-116 [facility] Comment on above: Performed By: #### B MP #### [facility] [address] [place] [address] Dr. Raf Pearl ALT [Catalytic activity/Vol] 26 U/L Normal 14-59 [facility] Comment on above: Performed By: #### B MP #### [facility] [address] [place] [address] Dr. Raf Pearl Anion gap [Moles/Vol] 12.1 mmol/L Normal [facility] Comment on above: Performed By: #### B MP #### [facility] [address] [address] [address] Raf Pearl AST [Catalytic activity/Vol] 16 U/L Normal 15-37 [facility] Comment on above: Performed By: #### B MP #### [facility] [address] [address] [address] Raf Pearl Bilirubin [Mass/Vol] 0.3 mg/dL Normal 0.2-1.0 [facility] Comment on above: Performed By: #### B MP #### [facility] [address] [address] [address] Raf Pearl Calcium [Mass/Vol] 9.2 mg/dL Normal 8.5-10.1 [facility] Comment on above: Performed By: #### B MP #### [facility] [address] [address] [address] Raf Pearl Chloride [Moles/Vol] 103 mmol/L Normal 98-107 [facility] Comment on above: Performed By: #### B MP #### [facility] [address] [address] [address] Raf Pearl CO2 [Moles/Vol] 26.9 mmol/L Normal 21.0-32.0 [facility] Comment on above: Performed By: #### B MP #### [facility] [address] [address] [address] Raf Pearl Creatinine [Mass/Vol] 1.17 mg/dL Critically high 0.55-1.02 [facility] Comment on above: Performed By: #### B MP #### [facility] [address] [address] [address] Raf Pearl EGFR-AF CYMRO 56 mL/min/1.73m2 Critically low >=60 [facility] Comment on above: Performed By: #### B MP #### [facility] [address] [address] [address] Raf Pearl EGFR-NON AF CYMRO 46 mL/min/1.73m2 Critically low >=60 [facility] Comment on above: Performed By: #### B MP #### [facility] [address] [address] [address] Raf Pearl Globulin (S) [Mass/Vol] 3.6 g/dL Normal [facility] Comment on above: Performed By: #### B MP #### [facility] [address] [address] [address] Raf Pearl Glucose [Mass/Vol] 141 mg/dL Critically high 74-106 [facility] Comment on above: Performed By: #### B MP #### [facility] [address] [address] [address] Raf Pearl Potassium [Moles/Vol] 4.0 mmol/L Normal 3.5-5.1 [facility] Comment on above: Performed By: #### B MP #### [facility] [address] [address] [address] Raf Pearl Protein [Mass/Vol] 7.6 g/dL Normal 6.4-8.2 [facility] Comment on above: Performed By: #### B MP #### [facility] [address] [address] [address] Raf Pearl Sodium [Moles/Vol] 138 mmol/L Normal 136-145 [facility] Comment on above: Performed By: #### B MP #### [facility] [address] [address] [address] Raf Pearl Urea nitrogen [Mass/Vol] 19.0 mg/dL Critically high 7.0-18.0 [facility] Comment on above: Performed By: #### B MP #### [facility] [address] [address] [address] Raf Pearl Urea nitrogen/Creatinine [Mass ratio] 16.2 mg/mg Normal [facility] Comment on above: Performed By: #### B MP #### [facility] [address] [address] [address] Raf Pearl VIT B12 AND FOLATEon 022 Cobalamin (Vitamin B12) [Mass/Vol] 786.0 pg/mL Normal 193.0-986.0 [facility] Comment on above: Performed By: #### B 12FOL #### [facility] [address] [place], [place] [address] Dr. Raf Pearl FOLATE 21.80 ng/mL Normal 8.60-58.90 [facility] Comment on above: Performed By: #### B 12FOL #### [facility] [address] [place], [place] [address] Dr. 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 Electronically signed by:Jeffrey Miles. Transcribed by: [email or web address], User Resident: ANTHONY SUNG Electronically Signed by: JEFFREY MILES @ 11/04/2018 04:42 PM I personally read this/these film(s) with this resident Normal [facility] Comment on above: Order Comment: , pos top, eval hardware and alignment , Views (X-RAY, CERVICAL SPINE): AP, Lateral, Odontoid , postop, eval hardware and alignment , Views (X-RAY, CERVICAL SPINE): AP, Lateral, Odontoid , , , Ordering Provider - Jayesh CLEVELAND LOAN OPERATIONS MANAGER , POC GLUCOSE LABon 08-25-2018 Glucose [Mass/Vol] 208 mg/dL High 70-100 [facility] Comment [facility] above: Performed By: #### 5 [id number], [id number] #### [facility] [address] [place] [address], [facility] Glucose [Mass/Vol] 98 mg/dL Normal 70-100 [facility] Comment on above: Performed By: #### 5 6101, [id number] #### [facility] [address] [place] [address], [facility] BASIC METABOLIC PANELon 05-0 Calcium [Mass/Vol] 7.7 mg/dL Low 8.6-10.3 [facility] Comment on above: Order Comment: No: D o not add to previous draw Performed By: #### 5 0103 #### [facility] [address] [place] [address], [facility] Chloride [Moles/Vol] 109 mmol/L High 98-107 [facility] Comment on above: Order Comment: No: D o not add to previous draw Performed By: #### 5 0103 #### [facility] [address] [place] [address], [facility] CO2 [Moles/Vol] 24 mmol/L Normal 21-31 [facility] Comment on above: Order Comment: No: D o not add to previous draw Performed By: #### 5 0103 #### [facility] [address] [place] [address], [facility] Creatinine [Mass/Vol] 0.89 mg/dL Normal 0.60-1.20 [facility] Comment on above: Order Comment: No: D o not add to previous draw Performed By: #### 5 0103 #### [facility] [address] [place] [address], [place] GFR/1.73 sq M predicted among blacks MDRD (S/P/Bld) [Vol rate/Area] mL/min/{1.73_m2} Normal >60 [facility] Comment on above: Order Comment: No: D o not add to previous draw Performed By: #### 5 0103 #### [facility] [address] [place] [address], [facility] GFR/1.73 sq M predicted among non-blacks MDRD (S/P/Bld) [Vol rate/Area] mL/min/{1.73_m2} Normal >60 [facility] Comment on above: Order Comment: No: D o not add to previous draw Performed By: #### 5 0103 #### [facility] [address] [facility] [place] [address], [facility] Glucose [Mass/Vol] 94 mg/dL Normal 70-100 [facility] Comment on above: Order Comment: No: D o not add to previous draw Performed By: #### 5 0103 #### [facility] [address] [place] [address], [facility] Potassium [Moles/Vol] 3.3 mmol/L Low 3.5-5.1 [facility] Comment on above: Order Comment: No: D o not add to previous draw Performed By: #### 5 0103 #### [facility] [address] [facility] [place] [place] [address], [facility] Sodium [Moles/Vol] 140 mmol/L Normal 136-145 [facility] Comment on above: Order Comment: No: D o not add to previous draw Performed By: #### 5 0103 #### [facility] [address] [facility] [place] [address], [facility] Urea nitrogen [Mass/Vol] 11 mg/dL Normal 7-25 [facility] Comment on above: Order Comment: No: D o not add to previous draw Performed By: #### 5 0103 #### [facility] [address] [facility] [place] [address], [facility] CBC W/DIFFon 08-24-2018 ABS BASOPHILS 0.0 10*3/uL Normal 0.0-0.2 [facility] Comment on above: Order Comment: No: D o not add to previous draw Performed By: #### 5 0103 #### [facility] [address] [place] [address], [facility] ABS IMM GRANS 0.1 10*3/uL Normal 0.0-0.2 [facility] Comment on above: Order Comment: No: D o not add to previous draw Performed By: #### 5 0103 #### [facility] [address] [place] [id number], [facility] ABS NEUTROPHILS 12.5 10*3/uL High 1.6-7.6 [facility] Comment on above: Order Comment: No: D o not add to previous draw Performed By: #### 5 0103 #### [facility] [address] [place] [address], [facility] Basophils/100 WBC (Bld) 0.3 % Normal 0.0-1.0 [facility] Comment on above: Order Comment: No: D o not add to previous draw Performed By: #### 5 0103 #### [facility] [address] [place] [address], [facility] Eosinophils (Bld) [#/Vol] 0.0 10*3/uL Normal 0.0-0.5 [facility] Comment on above: Order Comment: No: D o not add to previous draw Performed By: #### 5 0103 #### [facility] [address] [place] [id number], [facility] Eosinophils/100 WBC (Bld) 0.0 % Normal 0.0-6.0 [facility] Comment on above: Order Comment: No: D o not add to previous draw Performed By: #### 5 0103 #### [facility] [address] [place] [id number], [facility] Erythrocyte distribution width (RBC) [Ratio] 13.0 % Normal 11.5-15.0 [facility] Comment on above: Order Comment: No: D o not add to previous draw Performed By: #### 5 0103 #### [facility] [address] [place] [address], [facility] Hematocrit (Bld) [Volume fraction] 31.7 % Low 36.0-45.0 [facility] Comment on above: Order Comment: No: D o not add to previous draw Performed By: #### 5 0103 #### [facility] [address] [place] [address], [facility] Hemoglobin (Bld) [Mass/Vol] 10.3 g/dL Low 12.0-15.0 [facility] Comment on above: Order Comment: No: D o not add to previous draw Performed By: #### 5 0103 #### [facility] [address] [facility] [place] [address], [facility] IMMATURE GRANS 0.5 % Normal 0.0-1.0 [facility] Comment on above: Order Comment: No: D o not add to previous draw Performed By: #### 5 0103 #### [facility] [address] [place] [address], [facility] Lymphocytes (Bld) [#/Vol] 1.9 10*3/uL Normal 1.2-4.0 [facility] Comment on above: Order Comment: No: D o not add to previous draw Performed By: #### 5 0103 #### [facility] [address] [facility] [place] [address], [facility] Lymphocytes/100 WBC (Bld) 11.9 % Low 20.0-45.0 [facility] Comment on above: Order Comment: No: D o not add to previous draw Performed By: #### 5 0103 #### [facility] [address] [place] [id number], [facility] MCH (RBC) [Entitic mass] 31.7 pg Normal 27.0-33.0 [facility] Comment on above: Order Comment: No: D o not add to previous draw Performed By: #### 5 0103 #### [facility] [address] [place] [address], [facility] MCHC (RBC) [Mass/Vol] 32.5 g/dL Normal 32.0-35.0 [facility] Comment on above: Order Comment: No: D o not add to previous draw Performed By: #### 5 0103 #### [facility] [address] [place] [id number], [facility] MCV (RBC) [Entitic vol] 97.5 fL Normal 82.0-98.0 [facility] Comment on above: Order Comment: No: D o not add to previous draw Performed By: #### 5 0103 #### [facility] [address] [place] [address], [facility] Monocytes (Bld) [#/Vol] 1.2 10*3/uL High 0.1-1.0 [facility] Comment on above: Order Comment: No: D o not add to previous draw Performed By: #### 5 0103 #### [facility] [address] [place] [address], [facility] MONOS 7.7 % Normal 5.0-12.0 [facility] Comment on above: Order Comment: No: D o not add to previous draw Performed By: #### 5 0103 #### [facility] [address] [facility] [place] [address], [facility] Neutrophils/100 WBC (Bld) 79.6 % High 40.0-72.0 [facility] Comment on above: Order Comment: No: D o not add to previous draw Performed By: #### 5 0103 #### [facility] [address] [facility] [place] [address], [facility] Nucleated RBC/100 WBC (Bld) [Ratio] 0 % Normal 0-0 [facility] Comment on above: Order Comment: No: D o not add to previous draw Performed By: #### 5 0103 #### [facility] [address] [place] [address], [facility] PLAT CNT 263 10*3/uL Normal 150-400 [facility] Comment on above: Order Comment: No: D o not add to previous draw Performed By: #### 5 0103 #### [facility] [address] [place] [address], [facility] RBC (Bld) [#/Vol] 3.25 10*6/uL Low 3.80-5.[address] [facility] Comment on above: Order Comment: No: D o not add to previous draw Performed By: #### 5 0103 #### [facility] [address] [facility] [place] [address], [facility] WBC (Bld) [#/Vol] 15.70 10*3/uL High 4.00-10.60 [facility] Comment on above: Order Comment: No: D o not add to previous draw Performed By: #### 5 0103 #### [facility] [address] [facility]. [address] LIPID PROFILEon 08-24-2018 Cholesterol [Mass/Vol] 128 mg/dL Normal 120-200 [facility] Comment on above: Order Comment: No: D o not add to previous draw Result Comment: CHOL ESTEROL REFERENCE RANGE: 20 YEARS AND OLDER CARDIOVASCULAR RISK Less than 200 mg/dl Low Risk 200 to 239 mg/dl Borderline Risk 240 mg/dl and greater High Risk Performed By: #### 5 0103 #### [facility] [address] [facility]. [address] Cholesterol in HDL [Mass/Vol] 49 mg/dL Normal 23-92 [facility] Comment on above: Order Comment: No: D o not add to previous draw Result Comment: Slig ht variation in normal range could be due to gender and/or age. HDL CHOLESTEROL REFERENCE RANGE: 20 years and older Cardiovascular Risk > or =60 mg/dL Desirable 40 TO 59 mg/dL Low Risk <40 mg/dL High Risk Performed By: #### 5 0103 #### [facility] [address] Cholesterol in LDL [Mass/Vol] 65 mg/dL Normal 0-130 [facility] Comment on above: Order Comment: No: D o not add to previous draw Result Comment: LDL IS A CALCULATION LDL IS ONLY VALID IF THE TRIG IS LESS THAN 400. Performed By: #### 5 0103 #### [facility] [address] [place] [address], [facility] Cholesterol.total/Cho lesterol in HDL [Mass ratio] 2.6 {ratio} Normal .0-4.5 [facility] Comment on above: Order Comment: No: D o not add to previous draw Performed By: #### 5 0103 #### [facility] [address] NON-HDL CHOLESTEROL 79 mg/dL Normal [facility] Comment on above: Order Comment: No: D o not add to previous draw Performed By: #### 5 0103 #### [facility] [address] [facility] [address] Triglyceride [Mass/Vol] 69 mg/dL Normal 40-149 [facility] Comment on above: Order Comment: No: D o not add to previous draw Result Comment: TRIG LYCERIDE REFERENCE RANGE: 20 YEARS AND OLDER CARDIOVASCULAR RISK LESS THAN 150 mg/dl LOW RISK 150 TO 199 mg/dl BORDERLINE RISK 200 mg/dl AND GREATER HIGH RISK Performed By: #### 5 0103 #### [facility] [address] [facility] [place] [address], [facility] VLDL CHOL 14 mg/dL Normal 0-40 [facility] Comment on above: Order Comment: No: D o not add to previous draw Performed By: #### 5 0103 #### [facility] [address] [facility] [place] [address], [facility] POC GLUCOSE LABon 08-24-2018 Glucose [Mass/Vol] 162 mg/dL High 70-100 [facility] Comment on above: Performed By: #### 5 610, [id number] #### [facility] [address] [place] [address], [place] Glucose [Mass/Vol] 146 mg/dL High 70-100 [facility] Comment on above: Performed By: #### 5 610, [id number] #### [facility] [address] [place] [address], [place] Glucose [Mass/Vol] 213 mg/dL High 70-100 [facility] Comment on above: Performed By: #### 5 610, 79974 #### [facility] [address] [place] [address], [place] Glucose [Mass/Vol] 81 mg/dL Normal 70-100 [facility] Comment on above: Performed By: #### 5 610, [id number] #### [facility] [address] [place] [address], [place] BASIC METABOLIC PANELon 05-0 Calcium [Mass/Vol] 8.4 mg/dL Low 8.6-10.3 [facility] Comment on above: Order Comment: Yes: Add to Previous draw if able Performed By: #### 5 0103 #### [facility] [address] [place] [address], [place] Chloride [Moles/Vol] 103 mmol/L Normal 98-107 [facility] Comment on above: Order Comment: Yes: Add to Previous draw if able Performed By: #### 5 0103 #### [facility] [address] [place] [address], [place] CO2 [Moles/Vol] 26 mmol/L Normal 21-31 [facility] Comment on above: Order Comment: Yes: Add to Previous draw if able Performed By: #### 5 0103 #### [facility] [address] [place] [address], [place] Creatinine [Mass/Vol] 1.03 mg/dL Normal 0.60-1.20 [facility] Comment on above: Order Comment: Yes: Add to Previous draw if able Performed By: #### 5 0103 #### [facility] [address] [place] [address], [place] GFR/1.73 sq M predicted among blacks MDRD (S/P/Bld) [Vol rate/Area] mL/min/{1.73_m2} Normal >60 [facility] Comment on above: Order Comment: Yes: Add to Previous draw if able Performed By: #### 5 3 #### [facility] [address] [place] [address], [place] GFR/1.73 sq M predicted among non-blacks MDRD (S/P/Bld) [Vol rate/Area] 54 ml/min/1.73sq m Abnormal >60 [facility] Comment on above: Order Comment: Yes: Add to Previous draw if able Performed By: #### 5 0103 #### [facility] [address] [place] [address], [place] Glucose [Mass/Vol] 209 mg/dL High 70-100 [facility] Comment on above: Order Comment: Yes: Add to Previous draw if able Performed By: #### 5 0103 #### [facility] [address] [place] [address], [place] Potassium [Moles/Vol] 3.9 mmol/L Normal 3.5-5.1 [facility] Comment on above: Order Comment: Yes: Add to Previous draw if able Performed By: #### 5 3 #### [facility] [address] [place] [address], [place] Sodium [Moles/Vol] 135 mmol/L Low 136-145 The [facility] Comment on above: Order Comment: Yes: Add to Previous draw if able Performed By: #### 5 3 #### [facility] [address] [place] [address], [place] Urea nitrogen [Mass/Vol] 16 mg/dL Normal 7-25 [facility] Comment on above: Order Comment: Yes: Add to Previous draw if able Performed By: #### 5 0103 #### [facility] [address] [place] [address], [facility] CBC COMPLETE BLOOD COUNTon 0 - Erythrocyte distribution width (RBC) [Ratio] 12.8 % Normal 11.5-15.0 [facility] Comment on above: Order Comment: Yes: Add to Previous draw if able Performed By: #### 5 3 #### [facility] [address] Hematocrit (Bld) [Volume fraction] 35.0 % Low 36.0-45.0 [facility] Comment on above: Order Comment: Yes: Add to Previous draw if able Performed By: #### 3 #### [facility] [address] Hemoglobin (Bld) [Mass/Vol] 11.2 g/dL Low 12.0-15.0 [facility] Comment on above: Order Comment: Yes: Add to Previous draw if able Performed By: #### 5 0103 #### [facility] [address] [place] [address], [facility] MCH (RBC) [Entitic mass] 31.5 pg Normal 27.0-33.0 [facility] Comment on above: Order Comment: Yes: Add to Previous draw if able Performed By: #### 5 0103 #### [facility] [address] [place] [id number], [facility] MCHC (RBC) [Mass/Vol] 32.0 g/dL Normal 32.0-35.0 [facility] Comment on above: Order Comment: Yes: Add to Previous draw if able Performed By: #### 5 0103 #### [facility] [address] [place] [address], [facility] MCV (RBC) [Entitic vol] 98.3 fL High 82.0-98.0 [facility] Comment on above: Order Comment: Yes: Add to Previous draw if able Performed By: #### 5 0103 #### [facility] [address] [facility] [place] [address], [facility] Nucleated RBC/100 WBC (Bld) [Ratio] 0 % Normal 0-0 [facility] Comment on above: Order Comment: Yes: Add to Previous draw if able Performed By: #### 5 010 #### [facility] [address] [facility] [place] [address], [facility] PLAT CNT 276 10*3/uL Normal 150-400 [facility] Comment on above: Order Comment: Yes: Add to Previous draw if able Performed By: #### 5 102 #### [facility] [address] [facility] [place] [place] [address], [facility] RBC (Bld) [#/Vol] 3.56 10*6/uL Low 3.80-5.[address] [facility] Comment on above: Order Comment: Yes: Add to Previous draw if able Performed By: #### 5 3 #### [facility] [address] [facility] [place] [address], [facility] WBC (Bld) [#/Vol] 14.61 10*3/uL High 4.00-10.60 [facility] Comment on above: Order Comment: Yes: Add to Previous draw if able Performed By: #### 5 102 #### [facility] [address] [place], [place] [id number] [place] [address] CERVICAL SPINE 2 OR 3 [facility] 08-23-2018 CERVICAL SPINE 2 OR 3 [facility] Department of Radiology [address] [place] [id number] Patient Name: CRISELDA MORFIN : 1955 [...] C6. Electronically signed by:Xiomara Nath. Transcribed by: [email or web address], User Resident: Electronically Signed by: XIOMARA NATH @ 08/23/2018 04:07 PM Normal [facility] Comment on above: Order Comment: C4-C5 , C5-C6 ANTERIOR CERVICAL DISCECTOMY WITH FUSION Operative Reporton 9 Operative Report MR#: [id number] S [facility] Pt. Name: Criselda Morifn Room #: 0C Discharge Date: Birthdate: 1955 OPERATIVE REPORT DATE OF SURGERY: 08/23/2018 SURGEON: Demetris Askew M.D. 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 POSTOPERATIVE DIAGNOSIS: Herniated cervical disk and spinal stenosis from C4 through C6. [employer]: [place]. ANESTHESIA: Endotracheal, Dr. Falcon. PROCEDURE: [...] size 8 at C5-6. The plate was [place], size 35 mm. The screws were 6, [...] Askew M.D. Date Trans: 08/23/2018 01:26 P/kari [id number] Normal [facility] POC GLUCOSE LABon 08-23-2018 Glucose [Mass/Vol] 157 mg/dL High 70-100 [facility] Comment on above: Performed By: #### 5 0103 #### [facility] [address] [facility] [place] [place] [address], [place] Glucose [Mass/Vol] 190 mg/dL High 70-100 [facility] Comment on above: Performed By: #### 5 0103 #### [facility] [address] [facility] [address] Glucose [Mass/Vol] 182 mg/dL High 70-100 [facility] Comment on above: Performed By: #### 5 0103 #### [facility] [address] [facility]. [address] Glucose [Mass/Vol] 94 mg/dL Normal 70-100 [facility] Comment on above: Performed By: #### 5 0103 #### [facility] [address] [facility]. [address] *MRSA/MSSA DNA NASALon 08-08 *MRSA/MSSA DNA NASAL Clinical Report: (D ) Specimen: NASAL SWAB Collected: 08/08/2018 15:04 Status: Final Last Updated: 08/08/2018 20:45 MSSA DNA (Final) Negative MRSA DNA (Final) Negative Normal [facility] Comment on above: Performed By: #### 3 1595 #### [facility] [address] [facility]. [address] *URINE CULTUREon 08-08-2018 Bacteria identified Cx [...] CEFAZOLIN (CZ) 2 Susceptible 4 Susceptible CEFTRIAXONE (ATTORNEY LAWYER) <=0.5 Susceptible <=0.5 Susceptible CIPROFLOXACIN (CIP) <=0.5 Susceptible <=0.5 Susceptible GENTAMICIN (GM) 1 Susceptible 4 Susceptible MEROPENEM (MEM) <=0.125 Susceptible NITROFURANTOIN (FT) 32 Susceptible >64 Resistant PIP/TAZO (TZP) 4/4 Susceptible PIP/TAZO (TZP) <=2/4 Susceptible TOBRAMYCIN (TOB) 1 Susceptible 2 Susceptible TRIMETH/SULFA (SXT) <=0.5/9.5 Susceptible <=0.5/9.5 Susceptible Antibiotic Summary Grid: AMS AM AZM CZ ATTORNEY LAWYER CIP GM MEM FT TZP TOB Citrobacter S R S S S S S S S S S amalonaticus complex Proteus mirabilis S S S S S S S R S S SXT Citrobacter S amalonaticus complex Proteus mirabilis S Normal [facility] Comment on above: Performed By: #### 3 0339 #### [facility] [address] APTTon 08-08-2018 aPTT Coag (Bld) [Time] 28.0 s Normal 25.0-35.0 [facility] Comment on above: Result Comment: [...] THIS PURPOSE. Performed By: #### 5 6101, [id number] #### [facility] [address] BASIC METABOLIC PANELon 07-18 Calcium [Mass/Vol] 9.6 mg/dL Normal 8.6-10.3 [facility] Comment on above: Performed By: #### 0 0071 #### [facility] [address] Chloride [Moles/Vol] 103 mmol/L Normal 98-107 [facility] Comment on above: Performed By: #### 0 0071 #### [facility] [address] [place] [address], [place] CO2 [Moles/Vol] 30 mmol/L Normal 21-31 [facility] Comment on above: Performed By: #### 0 0071 #### [facility] [address] [place] [address], [place] Creatinine [Mass/Vol] 1.07 mg/dL Normal 0.60-1.20 [facility] Comment on above: Performed By: #### 0 0071 #### [facility] [address] [place] [address], [place] GFR/1.73 sq M predicted among blacks MDRD (S/P/Bld) [Vol rate/Area] mL/min/{1.73_m2} Normal >60 [facility] Comment on above: Performed By: #### 0 0071 #### [facility] [address] [place] [address], [place] GFR/1.73 sq M predicted among non-blacks MDRD (S/P/Bld) [Vol rate/Area] 52 ml/min/1.73sq m Abnormal >60 [facility] Comment on above: Performed By: #### 0 0071 #### [facility] [address] [place] [address], [place] Glucose [Mass/Vol] 93 mg/dL Normal 70-100 [facility] Comment on above: Performed By: #### 0 0071 #### [facility] [address] [place] [address], [place] Potassium [Moles/Vol] 4.2 mmol/L Normal 3.5-5.1 [facility] Comment on above: Performed By: #### 0 0071 #### [facility] [address] [place] [address], [place] Sodium [Moles/Vol] 139 mmol/L Normal 136-145 [facility] Comment on above: Performed By: #### 0 0071 #### [facility] [address] Urea nitrogen [Mass/Vol] 18 mg/dL Normal 7-25 [facility] Comment on above: Performed By: #### 0 0071 #### [facility] [address] [place] [address], [facility] CBC W/DIFFon 08-08-2018 ABS BASOPHILS 0.1 10*3/uL Normal 0.0-0.2 [facility] Comment on above: Performed By: #### 5 0103 #### [facility] [address] ABS IMM GRANS 0.0 10*3/uL Normal 0.0-0.2 [facility] Comment on above: Performed By: #### 5 0103 #### [facility] [address] ABS NEUTROPHILS 5.0 10*3/uL Normal 1.6-7.6 The [facility] Comment on above: Performed By: #### 5 3 #### [facility] [address] Basophils/100 WBC (Bld) 0.9 % Normal 0.0-1.0 [facility] Comment on above: Performed By: #### 5 3 #### [facility] [address] Eosinophils (Bld) [#/Vol] 0.2 10*3/uL Normal 0.0-0.5 [facility] Comment on above: Performed By: #### 5 102 #### [facility] [address] [place] [address], [facility] Eosinophils/100 WBC (Bld) 1.8 % Normal 0.0-6.0 [facility] Comment on above: Performed By: #### 5 0103 #### [facility] [address] Erythrocyte distribution width (RBC) [Ratio] 13.1 % Normal 11.5-15.0 [facility] Comment on above: Performed By: #### 5 0103 #### [facility] [address] [place] [address], [facility] Hematocrit (Bld) [Volume fraction] 37.2 % Normal 36.0-45.0 [facility] Comment on above: Performed By: #### 5 0103 #### [facility] [address] [facility] [address] Hemoglobin (Bld) [Mass/Vol] 12.3 g/dL Normal 12.0-15.0 [facility] Comment on above: Performed By: #### 5 0103 #### [facility] [address] [facility] [address] IMMATURE GRANS 0.5 % Normal 0.0-1.0 [facility] Comment on above: Performed By: #### 5 0103 #### [facility] [address] [facility] [address] Lymphocytes (Bld) [#/Vol] 2.2 10*3/uL Normal 1.2-4.0 [facility] Comment on above: Performed By: #### 5 0103 #### [facility] [address] [facility] [address] Lymphocytes/100 WBC (Bld) 26.5 % Normal 20.0-45.0 [facility] Comment on above: Performed By: #### 5 3 #### [facility] [address] [place] [address], [facility] MCH (RBC) [Entitic mass] 31.4 pg Normal 27.0-33.0 [facility] Comment on above: Performed By: #### 5 0103 #### [facility] [address] [place] [address], [facility] MCHC (RBC) [Mass/Vol] 33.1 g/dL Normal 32.0-35.0 [facility] Comment on above: Performed By: #### 5 3 #### [facility] [address] [facility] [place] [address], [facility] MCV (RBC) [Entitic vol] 94.9 fL Normal 82.0-98.0 [facility] Comment on above: Performed By: #### 5 3 #### [facility] [address] [facility] [place] [place] [address], [facility] Monocytes (Bld) [#/Vol] 0.7 10*3/uL Normal 0.1-1.0 [facility] Comment on above: Performed By: #### 5 102 #### [facility] [address] [facility] [place] [address], [facility] MONOS 8.3 % Normal 5.0-12.0 [facility] Comment on above: Performed By: #### 5 3 #### [facility] [address] [facility] [place] [address], [facility] Neutrophils/100 WBC (Bld) 62.0 % Normal 40.0-72.0 [facility] Comment on above: Performed By: #### 5 3 #### [facility] [address] [facility] [place] [place] [address], [facility] Nucleated RBC/100 WBC (Bld) [Ratio] 0 % Normal 0-0 [facility] Comment on above: Performed By: #### 5 3 #### [facility] [address] [place] [address], [facility] PLAT CNT 325 10*3/uL Normal 150-400 [facility] Comment on above: Performed By: #### 5 102 #### [id number] [place] [address] RBC (Bld) [#/Vol] 3.92 10*6/uL Normal 3.80-5.[address] [facility] Comment on above: Performed By: #### 5 0103 #### [facility] [address] [place] [address], [facility] WBC (Bld) [#/Vol] 8.12 10*3/uL Normal 4.00-10.[address] [facility] Comment on above: Performed By: #### 5 0103 #### [id number] [place] [address] CERVICAL SPINE 4 OR 5 VIEWSo n 08-08-2018 CERVICAL SPINE 4 OR 5 VIEWS [facility] Department of Radiology [address] [place] [id number] Patient Name: CRISELDA MORFIN : 1955 Sex: F Age: Race: White Pt. Location: Patient Status: O Ordered Date: 08/08/2018 2:25:00 PM Completed Date: 08/08/2018 02:48 PM Requesting Provider: DEMETRIS ASKEW Attending Provider: DEMETRIS ASKEW Report Copy To: DEMETRIS ASKEW Signs & Symptoms: M48.02 Spinal stenosis, cervical region I10 History: [place] Comments: , POST OP XRAY AP/LAT ONLY [...] level Electronically signed by:Xiomara Nath. Transcribed by: [email or web address], User Resident: Electronically Signed by: XIOMARA NATH @ 08/08/2018 03:24 PM Normal [facility] Comment on above: Order Comment: , POS T OP XRAY AP/LAT ONLY , POST OP XRAY AP/LAT ONLY , , , Ordering Provider - DEMETRIS ASKEW MD , HEMOGLOBIN A1Con 08-08-2018 HbA1c (Bld) [Mass fraction] 154 mg/dL High 70-126 [facility] Comment on above: Performed By: #### 4 6447 #### [address] [place] [address], [facility] HbA1c (Bld) [Mass fraction] 7.0 % High 4.0-6.0 [facility] Comment on above: Performed By: #### 4 6447 #### [facility] [address] PROTHROMBIN TIMEon 9 INR Coag (PPP) [Relative time] 0.93 {INR} Normal 0.91-1.16 [facility] Comment on above: Result Comment: ACCC P RECOMMENDED INR FOR WARFARIN THERAPY -------- ------- CONDITION INR PROPHYLAXIS OF VENOUS THROMBOSIS 2-3 (HIGH-RISK SURGERY) TREATMENT OF VENOUS THROMBOSIS 2-3 TREATMENT OF PULMONARY EMBOLISM 2-3 PREVENTION OF SYSTEMIC EMBOLISM: 2-3 ACUTE MYOCARDIAL INFARCTION TISSUE HEART VALVES VALVULAR HEART DISEASE ATRIAL FIBRILLATION RECURRENT SYSTEMIC EMBOLISM MECHANICAL HEART VALVE 2.5-3.5 FROM: ORAL ANTICOAGULANTS. MECHANISM OF ACTION, CLINICAL EFFECTIVENESS, AND OPTIMAL THERAPEUTIC RANGE. CHEST 1995;108:231S-246S. Performed By: #### 5 6101, [id number] #### [facility] [address] PT Coag (PPP) [Time] 12.5 s Normal 12.3-14.8 [facility] Comment on above: Result Comment: ALL RESULTS MUST BE INTERPRETED WITH RESPECT TO BLOOD DRAWING ARTIFACT OR DILUTION ERROR OF ANTICOAGULANT AT THE TIME OF SAMPLING. Performed By: #### 5 6101, [id number] #### [facility] [address] [place] [address], [facility] TYPE AND CROSSMATCHon 2018 ABO INTERPRETATION O Normal [facility] Comment on above: Performed By: #### 6 2594 #### [facility] [address] [place] [address], [place] RH INTERPRETATION Positive Normal [facility] Comment on above: Performed By: #### 6 2594 #### [facility] [address] [place] [address], [place] URINALYSIS REFLEXon 08-09-19 19 Appearance (U) CLEAR Normal CLEAR [facility] Comment on above: Performed By: #### 3 0965 #### [facility] [address] [place] [address], [place] Bilirubin [Mass/Vol] Negative Normal NEGATIVE [facility] Comment on above: Performed By: #### 3 0965 #### [facility] [address] [place] [address], [place] BLOOD Negative Normal NEGATIVE [facility] Comment on above: Performed By: #### 3 0965 #### [facility] [address] [place] [address], [place] Color (U) STRAW Abnormal YELLOW [facility] Comment on above: Performed By: #### 3 0965 #### [facility] [address] [place] [address], [place] EPIS NONE SEEN Normal FEW,OCC,NONE SEEN [facility] Comment on above: Performed By: #### 3 0965 #### [facility] [address] [place] [address], [place] Glucose [Mass/Vol] Negative Normal NEGATIVE [facility] Comment on above: Performed By: #### 3 0965 #### [facility] [address] [place] [address], [place] KETONE Negative Normal NEGATIVE [facility] Comment on above: Performed By: #### 3 0965 #### [facility] [address] [place] [address], [place] LEUK ALVARADO TRACE Abnormal NEGATIVE [facility] Comment on above: Performed By: #### 3 0965 #### [facility] [address] [place] [address], [facility] Nitrite Ql (U) Negative Normal NEGATIVE [facility] Comment on above: Performed By: #### 3 0965 #### [facility] [address] [place] [address], [facility] pH (Bld) 6.0 Normal 5.0-8.0 [facility] Comment on above: Performed By: #### 3 0965 #### [facility] [address] [facility] [place] [address], [facility] Protein (U) [Mass/Vol] Negative Normal NEGATIVE [facility] Comment on above: Performed By: #### 3 0965 #### [facility] [address] [facility] [place] [address], [facility] RBC (U) [#/Vol] 0-2 Abnormal NONE SEEN The [facility] Comment on above: Performed By: #### 3 0965 #### [facility] [address] [facility] [place] [address], [facility] SPEC GRAV 1.011 Low 1.015-1.020 [facility] Comment on above: Performed By: #### 3 0965 #### [facility] [address] [facility] [place] [place] [address], [facility] WBC UA 0-2 Abnormal NONE SEEN [facility] Comment on above: Performed By: #### 3 0965 #### [facility] [address] [place] [address], [facility] Vital Signs Date Time Vital Sign Value Performing Clinician Facility 03-06-2024 11:08-0500 Body height 149.9 cm Nae Vazquez MD Work Phone: [facility] 03-06-2024 11:08-0500 Body mass index (BMI) [Ratio] 31.71 kg/m2 Nae Vazquez MD Work Phone: [facility] 03-06-2024 11:08-0500 Body weight 71.22 kg Nae Vazquez MD Work Phone: [facility] 03-06-2024 11:08-0500 Diastolic blood pressure 72 mm[Hg] Nae Vazquez MD Work Phone: [facility] 03-06-2024 11:08-0500 Heart rate 83 /min Nae Vazquez MD Work Phone: [facility] 03-06-2024 11:08-0500 Respiratory rate 18 /min Nae Vazquez MD Work Phone: [facility] 03-06-2024 11:08-0500 Systolic blood pressure 120 mm[Hg] Nae Vazquez MD Work Phone: [facility] 03-02-2024 10:34-0500 Body height 149.86 cm Rin Nicholson DO Work Phone: [facility] 03-02-2024 10:34-0500 Body weight 71.66 kg Rin Nicholson DO Work Phone: [facility] 02-03-2024 08:33-0400 Body height 149.86 cm Rin Nicholson DO Work Phone: [facility] 02-03-2024 08:33-0400 Body mass index (BMI) [Ratio] 32.3 kg/m2 Rin Nicholson DO Work Phone: [facility] 02-03-2024 08:33-0400 Body temperature 97.7 [degF] Rin Nicholson DO Work Phone: [facility] 02-03-2024 08:33-0400 Body weight 72.57 kg Rin Nicholson DO Work Phone: [facility] 02-03-2024 08:33-0400 Diastolic blood pressure 76 mm[Hg] Rin Nicholson DO Work Phone: [facility] 02-03-2024 08:33-0400 Heart rate 76 /min Rin Nicholson DO Work Phone: [facility] 02-03-2024 08:33-0400 SaO2% (BldA) [Mass fraction] 98 % Rin Nicholson DO Work Phone: [facility] 02-03-2024 08:33-0400 Systolic blood pressure 138 mm[Hg] Rin Nicholson DO Work Phone: [facility] 02-01-2024 11:47-0400 Body height 149.86 cm Rin Nicholson DO Work Phone: [facility] 02-01-2024 11:47-0400 Body mass index (BMI) [Ratio] 32.3 kg/m2 Rin Nicholson DO Work Phone: [facility] 02-01-2024 11:47-0400 Body temperature 96.8 [degF] Rin Nicholson DO Work Phone: [facility] 02-01-2024 11:47-0400 Body weight 72.74 kg Rin Nicholson DO Work Phone: [facility] 02-01-2024 11:47-0400 Diastolic blood pressure 74 mm[Hg] Rin Nicholson DO Work Phone: [facility] 02-01-2024 11:47-0400 Heart rate 73 /min Rin Nicholson DO Work Phone: [facility] 02-01-2024 11:47-0400 Respiratory rate 16 /min Rin Nicholson DO Work Phone: [facility] 02-01-2024 11:47-0400 SaO2% (BldA) [Mass fraction] 98 % Rin Nicholson DO Work Phone: [facility] 02-01-2024 11:47-0400 Systolic blood pressure 126 mm[Hg] Rin Nicholson DO Work Phone: [facility] 09-24-2022 08:10-0400 Body height 149.86 cm Rin Nicholson Other [facility] Other 09-24-2022 08:10-0400 Body mass index (BMI) [Ratio] 29.89 kg/m2 Rin Nicholson Other [facility] Other 09-24-2022 08:10-0400 Body temperature 98.6 [degF] Rin Nicholson Other [facility] Other 09-24-2022 08:10-0400 Body weight 67.13 kg Rin Nicholson Other [facility] Other 09-24-2022 08:10-0400 Diastolic blood pressure 84 mm[Hg] Rin Nicholson Other [facility] Other 09-24-2022 08:10-0400 Respiratory rate 18 /min Rin Nicholson Other [facility] Other 09-24-2022 08:10-0400 SaO2% (BldA) [Mass fraction] 97 % Rin Nicholson Other [facility] Other 09-24-2022 08:10-0400 Systolic blood pressure 126 mm[Hg] Rin Nicholson Other [facility] Other 08-09-2022 18:20-0400 Body height 149.86 cm Rin Nicholson Other [facility] Other 08-09-2022 18:20-0400 Body mass index (BMI) [Ratio] 29.89 kg/m2 Rin Nicholson Other [facility] Other 08-09-2022 18:20-0400 Body temperature 98.2 [degF] Rin Nicholson Other [facility] Other 08-09-2022 18:20-0400 Body weight 67.13 kg Rin Nicholson Other [facility] Other 08-09-2022 18:20-0400 Diastolic blood pressure 78 mm[Hg] Rin Nicholson Other [facility] Other 08-09-2022 18:20-0400 Respiratory rate 16 /min Rin Nicholson Other [facility] Other 08-09-2022 18:20-0400 SaO2% (BldA) [Mass fraction] 98 % Rin Nicholson Other [facility] Other 08-09-2022 18:20-0400 Systolic blood pressure 136 mm[Hg] Rin Nicholson Other [facility] Other 02-08-2022 18:00-0400 Body height 149.86 cm Rin Nicholson Other [facility] Other 02-08-2022 18:00-0400 Body mass index (BMI) [Ratio] 28.98 kg/m2 Rin Nicholson Other [facility] Other 02-08-2022 18:00-0400 Body temperature 98.1 [degF] Rin Nicholson Other [facility] Other 02-08-2022 18:00-0400 Body weight 65.09 kg Rin Nicholson Other [facility] Other 02-08-2022 18:00-0400 Diastolic blood pressure 80 mm[Hg] Rin Nicholson Other [facility] Other 02-08-2022 18:00-0400 Respiratory rate 16 /min Rin Nicholson Other [facility] Other 02-08-2022 18:00-0400 SaO2% (BldA) [Mass fraction] 99 % Rin Nicholson Other [facility] Other 02-08-2022 18:00-0400 Systolic blood pressure 136 mm[Hg] Rin Nicholson Other [facility] Other Encounters Encounter Date Encounter Type Care Provider Facility Start: 03-06-2024 End: 03-06-2024 BamAceableheet Nae Vazquez MD Work Phone: [facility] Start: 03-06-2024 End: 03-06-2024 Ziffiheet Nae Vazquez MD Work Phone: [facility] Start: 03-06-2024 End: 03-06-2024 Office outpatient visit 25 minutes Nae Vazquez MD Work Phone: [facility] Comment on above: 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); Graves disease (CMS/HCC) Start: 03-06-2024 End: 03-06-2024 ambulatory NAE VAZQUEZ Not Available Start: 03-02-2024 End: 03-02-2024 Patient encounter procedure Rin Nicholson DO Work Phone: [facility] Work Phone: Start: 03-02-2024 End: 03-02-2024 ambulatory Rin Nicholson DO Work Phone: [facility] Work Phone: Start: 02-22-2024 Non-patient / Non-visit Rin Nicholson DO Work Phone: [facility] [employer] Work Phone: Start: 02-03-2024 End: 02-03-2024 Patient encounter procedure Rni Nicholson DO Work Phone: [facility] [place] Work Phone: Start: 02-01-2024 End: 02-01-2024 Patient encounter procedure Rin Nicholson DO Work Phone: [facility] Ne[facility] [place] Work Phone: Start: 05-16-2023 End: 05-16-2023 ambulatory Rin Nicholson Other [facility] Other Start: 05-16-2023 Telephone encounter Rin Nicholson [facility] [place] Start: 05-03-2023 Encounter by compute r link Rin Nicholson [facility] [place] Start: 05-03-2023 End: 05-03-2023 Patient encounter procedure DO Rin Nicholson Work Phone: [facility] Work Phone: Start: 05-03-2023 End: 05-03-2023 ambulatory DO Rin Nicholson Work Phone: [facility] Work Phone: Start: 04-12-2023 End: 04-12-2023 ambulatory Rin Nicholson Other [facility] Other Start: 04-12-2023 Telephone encounter Rin Nicholson [facility] [place] Start: 04-04-2023 End: 04-04-2023 ambulatory Rin Nicholson Other [facility] Other Start: 04-04-2023 Telephone encounter Rin Nicholson [facility] [place] Start: 03-21-2023 End: 03-21-2023 ambulatory Rin Nicholson Other [facility] Other Start: 03-21-2023 Telephone encounter Rin Nicholson [facility] [place] Start: 02-23-2023 End: 02-23-2023 ambulatory Rin Nicholson Other [facility] Other Start: 02-23-2023 Telephone encounter Rin Nicholson [facility] [place] Start: 09-24-2022 End: 09-24-2022 ambulatory Rin Nicholson Other [facility] Other Start: 09-24-2022 Office outpatient vi sit 15 minutes Rni Nicholson [facility] [place] Start: 08-30-2022 End: 08-31-[address] RIN NICHOLSON Facility:[facility] Start: 08-17-2022 End: 08-17-2022 ambulatory Rin Nicholson Other [facility] Other Start: 08-17-2022 Telephone encounter Rin Nicholson [facility] [place] Start: 08-16-2022 End: 08-17-[address] RIN NICHOLSON Facility:[facility] Start: 08-09-2022 End: 08-09-2022 ambulatory Rin Nicholson Other [facility] Other Start: 08-09-2022 Office outpatient vi sit 25 minutes Rin Nicholson [facility] [place] Start: 08-06-2022 End: 08-06-2022 ambulatory Rin Nicholson Other [facility] Other Start: 08-06-2022 Telephone encounter Rin Nicholson [facility] [place] Start: 07-31-2022 End: 08-01-[address] RIN NICHOLSON Facility:[facility] Start: 06-04-2022 End: 06-04-2022 ambulatory Rin Nicholson Other [facility] Other Start: 06-04-2022 Telephone encounter Rin Nicholson [facility] [place] Start: 05-24-2022 End: 05-24-2022 ambulatory Rin Nicholson Other [facility] Other Start: 05-24-2022 Telephone encounter Rin Nicholson [facility] [place] Start: 05-14-2022 End: 05-14-2022 ambulatory Rin Nicholson Other [facility] Other Start: 05-14-2022 Telephone encounter Rin Nicholson [facility] Start: 04-30-2022 End: 04-30-[address] BETTINA MULLIGAN . Facility:[facility] Start: 04-22-2022 End: 04-22-2022 ambulatory Rin Nicholson Other [facility] Other Start: 04-22-2022 Telephone encounter Rin Nicholson [facility] Start: 03-29-2022 End: 03-29-2022 ambulatory Rin Nicholson Other [facility] Other Start: 03-29-2022 Telephone encounter Rin Nicholson [facility] Start: 03-27-2022 End: 03-28-[address] RIN NICHOLSON Facility:[facility] Start: 02-08-2022 End: 02-08-2022 ambulatory Rin Nicholson Other [facility] Other Start: 02-08-2022 Office outpatient vi sit 25 minutes Rin Nicholson [facility] Start: 01-22-2022 End: 01-23-[address] RIN [...] above: Performed By: #### [id number] #### [facility] Noemy GONZALEZ. 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) Expected: 03/06/2024 (Approximate), Expires: 03/06/2025 [facility] Comment on above: Expected: 03/06/2024 (Approximate), Expi res: 03/06/2025 Start: 03-06-2024 End: 03-06-2025 Thyrotropin [Units/volume] in Serum or Plasma TSH Lab Routine 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) Expected: 03/06/2024 (Approximate), Expires: 03/06/2025 [facility] Comment on above: Expected: 03/06/2024 (Approximate), Expi res: 03/06/2025 Start: 03-06-2024 End: 03-06-2025 Thyroxine (T4) free [Mass/volume] in Serum or Plasma T4, free Lab Routine 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) Expected: 03/06/2024 (Approximate), Expires: 03/06/2025 [facility] Comment on above: Expected: 03/06/2024 (Approximate), Expi res: 03/06/2025 Start: 03-06-2024 End: 03-06-2025 Triiodothyronine (T3) Free [Mass/volume] in Serum or Plasma T3, free Lab Routine 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) Expected: 03/06/2024 (Approximate), Expires: 03/06/2025 [facility] Work Phone: Comment on above: Expected: 03/06/2024 (Approximate), Expi res: 03/06/2025 Start: 03-06-2024 End: 03-06-2024 Patient encounter procedure 03/06/2024 11:00 AM EST Office Visit [facility] [address] [place] [id number] Nae Vazquez MD [address] [place] [address] Arrived [facility] Comment on above: Arrived Start: 03-02-2024 Radionuclide myocardial perfusion stress study NM heaven perf SPECT rest & str [facility] Start: 02-03-2024 Patient referral [facility] Work Phone: Start: 12-18-2023 Influenza vaccination Influenza Vaccine (#1) [facility] Start: 1995 Screening for malignant neoplasm of breast Mammogram [facility] Start: 1955 Medicare Annual Wellness (AWV) Medicare Annual Wellness (AWV) [facility] Start: 1955 Screening for malignant neoplasm of colon [facility] Patient referral [facility] Work Phone: Renal function 2000 panel - Serum or Plasma [facility] US Kidney - bilateral [facility] Immunizations Immunization Date Immunization Notes Care Provider Fa cility 12-22-2023 influenza virus vaccine, unspecified formulation Nae Vazquez MD Work Phone: [facility] 08-29-2023 COVID-19 (MODERNA) 12Y and older Rin Nicholson DO Work Phone: [facility] 08-29-2023 zoster vaccine, live iRn soto DO Work Phone: [facility] 04-26-2023 Prevnar 20 Rin Nicholson Other [facility] 04-08-2023 COVID-19 Moderna (SPIKEVAX) Rin Nicholson Other [facility] 04-08-2023 zoster vaccine recombinant Rin Nicholson Other [facility] 03-22-2023 Fluzone QIV High-Dos e 65YR+ Rin Nicholson DO Work Phone: [facility] 03-22-2023 Flu Shot - Documentation Purposes Only Rin Nicholson Other [facility] 02-08-2022 Shingrix 50 MCG/0.5M L; 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: [Shingrix 50 MCG/0.5ML] Rin Nicholson Other [facility] Other 01-15-2022 influenza, seasonal, injectable Rin Nicholson Other [facility] 01-15-2022 COVID-19 Pfizer (bivalent) Rin Nicholson Other [facility] 01-15-2022 Fluzone QIV High-Dos e 65YR+ Rin Nicholson DO Work Phone: [facility] 07-31-2021 COVID-19 Vaccine Moderna - Documentation Purposes Only Rin Nicholson Other [facility] 02-20-2021 COVID-19 Vaccine Moderna - Documentation Purposes Only Rin Nicholson Other [facility] 01-24-2021 Influenza vaccine, quadrivalent, adjuvanted Rin Nicholson DO Work Phone: [facility] 07-26-2020 COVID-19 Avisa Rin koenig Other [facility] 06-28-2020 COVID-19 Avisa Rin koenig Other [facility] 02-18-2020 influenza, seasonal, injectable Rin Nicholson Other [facility] 01-18-2020 influenza, injectabl e, quadrivalent, preservative free Rin Nicholson DO Work Phone: [facility] 02-19-2017 influenza, seasonal, injectable Rin Nicholson Other [facility] 02-19-2017 influenza, injectabl e, quadrivalent, preservative free Rin Nicholson DO Work Phone: [facility] 03-08-2016 influenza, seasonal, injectable Rin Nicholson Other [facility] 05-07-2013 influenza virus vaccine, split virus (incl. purified surface antigen) Rin Nicholson Other [facility] Other 05-07-2013 influenza virus vaccine, unspecified formulation Rin Nihcolson DO Work Phone: [facility] 03-24-2012 influenza, seasonal, injectable, preservative free Rin Kesslerbaljit Other [facility] Payers Date Payer Category Payer Self-pay [id number] 2023 Medicare (Managed Care) [facility] [id number] 2023 Unknown [id number] 2022 Medicare [id number] 1959 Unknown [id number] 1955 Unknown [id number]. 2.356 1955 Unknown [id number] 2.16.840.1.011772.3.579. 2.356 1955 Unknown [id number] 2.16.840.1.562631.3.579. 2.356 1955 Unknown [id number] 2.16.840.1.390493.3.579. 2.356 1955 Unknown [id number] 2.16.840.1.823948.3.579. 2.647 1955 Unknown [id number] 2.16.840.1.325719.3.579. 2.593 1955 Unknown [id number] 2.16.840.1.215729.3.579. 2.593 1955 Unknown [id number] 2.16.840.1.573582.3.579. 2.593 1955 Unknown [id number] 2.16.840.1.832562.3.579. 2.593 1955 Unknown [id number] 2.16.840.1.942257.3.579. 2.593 1955 Unknown [id number] 2.16.840.1.795294.3.579. 2.593 1955 Unknown [id number] 2.16.840.1.017669.3.579. 2.1259 Unknown [id number] Unknown [id number] 2.16.840.1.357948.3.579. 2.531 Social History Date Type Detail Facility Unknown if ever smoked [facility] Other Start: 02-20-2024 Sex Assigned At N [facility] Other Start: 1955 Sex Assigned At Female F [facility] Start: 06-02-2020 End: 02-20-2024 Tobacco smoking status NHIS Never smoked tobacco (finding) [facility] Start: 03-03-2024 Sex Patient sex un known (finding) [facility] Start: 02-20-2024 Tobacco use and exposure Smokeless tobacco non-user [facility] Start: 02-20-2024 Alcoholic beverage intake Lifetime non-drinker (finding) [facility] Start: 02-20-2024 History of Social function [facility] Start: 1955 Sex assigned at Not on file [facility] Medical Equipment Procedure Code Equipment Code Equipment Origin al Text Equipment Identifier Dates One Touch Lancet s lancets Start: 12-24-2011 lancets (OneTouc h Delica Plus Lancet) Start: 10-04-2023 Clinical Notes 02-11-2019 to 03-06-2024 Nae Vazquez MD - 03/06/2024 11:00 AM EST Note Date & Type Note Facility 03-06-2024 History of Present illness Narrative Leslee Morfin is a 68 y.o. female Nae Vazquez MD presents with chief complaint of Thyroid Problem and Follow-up HPI: IM 02/2024 Follow up visit on 02/25/2024, currently on methimazole 10 mg once a day, lab done TSH 10.261, free T3 2.09 ( 2.18-3.98), free T4 0.95 ( 0.76-1.4) she feels much better. Interim History 11/2023 Follow up visit on 12/13/2023 for lab. TSH 0.007, free T4 1.69 (0.76-1.66), free T3 within normal limits and TRAb positive 3.15 and she is already on metoprolol and we will start her on methimazole 10 mg twice a day. HPI: 11/2023 New patient sent from Dr. Rin Nicholson for hyperthyroidism. Lab done in 10/2023, TSH 0.07, TPO greater than 600 (0-34), TG antibody 1109 (0-0.9). Ultrasound done and right lobe 4.5 x 1.8 x 1.3. There are three nodules, in the middle TR 4, 6 mm; in the upper TR 3, 10 mm; and in the lower TR 3, 9 mm. Left lobe 4.9 x 1.2 x 1.3 cm. There is 7 mm cystic in left lobe. SUBJECTIVE: MEDICATIONS: Current Outpatient Medications Medication Instructions acetaminophen (Tylenol) 500 MG tablet Take by mouth atorvastatin (LIPITOR) 10 mg, Daily Cobalamin Combinations (COBALAMINE COMBINATIONS PO) Take by mouth empagliflozin (JARDIANCE) 10 mg, Daily glimepiride (AMARYL) 1 mg, Daily before breakfast hydroCHLOROthiazide (HYDRODIURIL) 12.5 mg, Daily lisinopril 20 MG tablet Daily methIMAzole (TAPAZOLE) 5 mg, Oral, Daily metoprolol succinate XL (Toprol-XL) 25 MG 24 hr tablet Take by mouth Do not crush or chew. omeprazole (PRILOSEC) 40 mg, Daily before breakfast pioglitazone (ACTOS) 30 mg, Daily ALLERGIES: No Known Allergies Past Medical History: Diagnosis Date Anemia DM type 2 (diabetes mellitus, type 2) (CMS/HCC) GERD (gastroesophageal reflux disease) Hypercalcemia Hyperlipidemia (CMS/HCC) Hypertension (CMS/HCC) Leukocytosis Ovarian tumor Stage 3 chronic kidney disease, unspecified whether stage 3a or 3b CKD (HCC) (CMS/HCC) Past Surgical History: Procedure Laterality Date CERVICAL FUSION COLONOSCOPY HYSTERECTOMY LITHOTRIPSY TONSILLECTOMY REVIEW OF SYMPTOMS: 14 POINT OF SYSTEM REVIEWED AND NEGATIVE OBJECTIVE: Visit Vitals BP 120/72 Pulse 83 Resp 18 Ht 4' 11 Wt 157 lb BMI 31.71 kg/m Smoking Status Never BSA 1.72 m Physical Exam Constitutional: Appearance: Normal appearance. She is normal weight. HENT: Head: Normocephalic and atraumatic. Right Ear: External ear normal. Nose: Nose normal. Mouth/Throat: Pharynx: Oropharynx is clear. Eyes: Extraocular Movements: Extraocular movements intact. Pupils: Pupils are equal, round, and reactive to light. Cardiovascular: Rate and Rhythm: Normal rate and regular rhythm. Pulmonary: Effort: Pulmonary effort is normal. Abdominal: General: Abdomen is flat. Palpations: Abdomen is soft. Musculoskeletal: General: Normal range of motion. Skin: General: Skin is warm. Neurological: General: No focal deficit present. Mental Status: She is alert. Psychiatric: Mood and Affect: Mood normal. Behavior: Behavior normal. 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 documented in this encounter [facility] 03-03-2024 Nuclear medicine Diagnostic study note [facility] [place] [address] [place] [address] Nuclear Medicine Report Signed Patient: Leslee Morfin MR#: [id number] : 1955 Acct:[id number] Age/Sex: 68 / F ADM Date: 4 Loc: CO Room: Type: [facility] Attending Dr: Jeffrey Urias MD Copies to: Jeffrey Urias MD, [facility] Ryne Johnson MD~ Ordering Provider: Jeffrey Urias MD, [facility] Date of Service: 03/02/24 NM/NM heaven perf SPECT rest & str: R07.9 REFERRING PHYSICIAN: Jeffrey Urias MD REASON FOR THE STUDY: Chest pain. PROCEDURE: The patient underwent a 1-day rest/stress protocol. Rest images obtained by injecting 6.2 mCi of Cardiolite. Stress images obtained by injecting 19.6 mCi of Cardiolite. Subsequently, gated SPECT and ejection fraction studies were performed. IMAGING RESULT: This appears to be a fair study. It appears to be normal. There is no clear pattern of ischemia or myocardial infarction. Left ventricular ejection fraction appears normal, calculated at 80%. TID index normal at 0.78. CONCLUSION: 1. Normal myocardial perfusion study. 2. No ischemia or myocardial infarction. 3. Normal left ventricular systolic function and wall motion. 4. No previous study available for comparison. Transcribed By: RACHEL 03/02/245 Dictated By: Ryne Johnson MD 03/02/24 2044 Signed By: 03/03/24 0704 [facility] Work Phone: 02-03-2024 Evaluation note Authored February 03, 2024 12:16pm The above note written by __ _Wilmer Helm____ acting as human recorder, note dictated by Dr. Castro .I performed the above HPI, ROS, and Examination. I formulated and dictated the treatment plan and was present for entire encounter. Rin Nicholson D.O. [facility] Work Phone: [phone]) 124-410901-16-2024 Evaluation note* Encounter Date Diagnosis Assessment Notes Treatment Notes Treatment Clinical Notes Apr, GERD (gastroesophageal reflux disease) (ICD-10 - K21.9) [facility] Other 2023 Evaluation note* Encounter Date Diagnosis Assessment Notes Treatment Notes Treatment Clinical Notes Mar, Abnormal blood chemistry (ICD-10 - R79.9) Mar, Hypercalcemia (ICD-1 0 - E83.52) Mar, Stage 3a chronic kidney disease (ICD-10 - N18.31) [facility] Other 06-09-2023 Evaluation note* Encounter Date Diagnosis [...] see where her kidney studies are at. [facility] Other 04-24-2023 Evaluation note* Encounter Date Diagnosis [...] results. She may have to see the matrix drier tender again but we will wait and see [...] ice the shoulder or alternate with heat. [facility] Other 01-05-2023 Evaluation note* Encounter Date Diagnosis Assessment Notes Treatment Notes Treatment Clinical Notes Apr, Hypertension (ICD-10 - I10) [facility] Other 10-24-2022 Evaluation note* Encounter Date Diagnosis [...] this. She does agree to see an orthopedics teacher. A referral is provided. Her range of [...] th an order for a Shingrix vaccine [facility] Other 02-01-2021 History general Narrative - Reported* Type Description Date Medical History Stress Test; [facility], normal per patient Medical History Pap and Pelvic 3 yea rs ago, OBGYN in [place] Medical History Mammogram over 5 yea rs; Normal at that time per patient Medical History CT Abdomen and Pelvi s over 5 years ago; [facility] Medical History Colonoscopy 8 years ago; in [place], normal in patient Medical History Chest X-Ray 12-15-11; normal, [facility] Medical History Echocardiogram; 12-15; [facility] Medical History Cardiolite Stress Te st 12-16-11; [facility] Medical History Check's sugar's bid Medical History Heart Catherization; [facility] Medical History breast cancer 04/2014 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, status post lumpectomy x2, sentinel lymph node biopsy and adjuvant radiotherapy that concluded on 08-21-14 Medical History 11/2016 diabetic shif ting in rt eye - Dr French from [facility] Surgical History Tonsillectomy age 21 Surgical History ovarian tumor removed and left ovary Surgical History complete hysterectomy 1993 Surgical History Heart Catherization; [facility] Surgical History Right Shoulder Tear and bone spur removal; [facility] 07-27-12 Surgical History Left Shoulder [...] for a kidney stone Surgical [place] [facility] [place] Surgical History vertabrae fusion 08/2018 Hospitalization History ovarian tumor removed an d left overy Hospitalization History complete hysterectomy 19 94 [facility] Other 01-19-2021 History general Narrative - Reported* Type Description Date Medical History Stress Test; [facility], normal per patient Medical History Pap and Pelvic 3 yea rs ago, OBGYN in [place] Medical History Mammogram over 5 yea rs; Normal at that time per patient Medical History CT Abdomen and Pelvi s over 5 years ago; [facility] Medical History Colonoscopy 8 years ago; in [place], normal in patient Medical History Chest X-Ray 12-15-11; normal, [facility] Medical History Echocardiogram; 12-15; [facility] Medical History Cardiolite Stress Te st 12-16-11; [facility] Medical History Check's sugar's bid Medical History Heart Catherization; [facility] Medical History breast cancer 04/2014 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, status post lumpectomy x2, sentinel lymph node biopsy and adjuvant radiotherapy that concluded on 08-21-14 Medical History 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 - Dr French from [facility] Surgical History Tonsillectomy age 21 Surgical History ovarian tumor removed and left ovary Surgical History complete hysterectomy 1993 Surgical History Heart Catherization; [facility] Surgical History Right Shoulder Tear and bone spur removal; [facility] 07-27-12 Surgical History Left Shoulder [...] for a kidney stone Surgical [place] [facility] [place] Surgical History vertabrae fusion 08/2018 Hospitalization History ovarian tumor removed an d left overy Hospitalization History complete hysterectomy 19 94 [facility] Other 12-27-2020 History general Narrative - Reported* Type Description Date Medical History Stress Test; [facility], normal per patient Medical History Pap and Pelvic 3 yea rs ago, OBGYN in [place] Medical History Mammogram over 5 yea rs; Normal at that time per patient Medical History CT Abdomen and Pelvi s over 5 years ago; [facility] Medical History Colonoscopy 8 years ago; in [place], normal in patient Medical History Chest X-Ray 12-15-11; normal, [facility] Medical History Echocardiogram; 12-15; [facility] Medical History Cardiolite Stress Te st 12-16-11; [facility] Medical History Check's sugar's bid Medical History Heart Catherization; [facility] Medical History breast cancer 04/2014 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, status post lumpectomy x2, sentinel lymph node biopsy and adjuvant radiotherapy that concluded on 08-21-14 Medical History 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 - Dr French from [facility] Surgical History Tonsillectomy age 21 Surgical History ovarian tumor removed and left ovary Surgical History complete hysterectomy 1993 Surgical History Heart Catherization; [facility] Surgical History Right Shoulder Tear and bone spur removal; [facility] 07-27-12 Surgical History Left Shoulder [...] for a kidney stone Surgical [place] [facility] [place] Surgical History vertabrae fusion 08/2018 Hospitalization History ovarian tumor removed an d left overy Hospitalization History complete hysterectomy 19 94 [facility] Other 12-20-2020 History general Narrative - Reported* Type Description Date Medical History Stress Test; [facility], normal per patient Medical History Pap and Pelvic 3 yea rs ago, OBGYN in [place] Medical History Mammogram over 5 yea rs; Normal at that time per patient Medical History CT Abdomen and Pelvi s over 5 years ago; [facility] Medical History Colonoscopy 8 years ago; in [place], normal in patient Medical History Chest X-Ray 12-15-11; normal, [facility] Medical History Echocardiogram; 12-15; [facility] Medical History Cardiolite Stress Te st 12-16-11; [facility] Medical History Check's sugar's bid Medical History Heart Catherization; [facility] Medical History breast cancer 04/2014 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, status post lumpectomy x2, sentinel lymph node biopsy and adjuvant radiotherapy that concluded on 08-21-14 Medical History 11/2016 diabetic yao maddeng in rt eye - Dr French from [facility] Surgical History Tonsillectomy age 21 Surgical History ovarian tumor removed and left ovary Surgical History complete hysterectomy 1993 Surgical History Heart Catherization; [facility] Surgical History Right Shoulder Tear and bone spur removal; [facility] 07-27-12 Surgical History Left Shoulder [...] for a kidney stone Surgical [place] [facility] [place] Surgical History vertabrae fusion 08/2018 Hospitalization History ovarian tumor removed an d left overy Hospitalization History complete hysterectomy 19 94 [facility] Other 12-04-2020 History general Narrative - Reported* Type Description Date Medical History Stress Test; [facility], normal per patient Medical History Pap and Pelvic 3 yea rs ago, OBGYN in [place] Medical History Mammogram over 5 yea rs; Normal at that time per patient Medical History CT Abdomen and Pelvi s over 5 years ago; [facility] Medical History Colonoscopy 8 years ago; in [place], normal in patient Medical History Chest X-Ray 12-15-11; normal, [facility] Medical History Echocardiogram; 12-15; [facility] Medical History Cardiolite Stress Te st 12-16-11; [facility] Medical History Check's sugar's bid Medical History Heart Catherization; [facility] Medical History breast cancer 04/2014 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, status post lumpectomy x2, sentinel lymph node biopsy and adjuvant radiotherapy that concluded on 08-21-14 Medical History 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 - Dr French from [facility] Surgical History Tonsillectomy age 21 Surgical History ovarian tumor removed and left ovary Surgical History complete hysterectomy 1993 Surgical History Heart Catherization; [facility] Surgical History Right Shoulder Tear and bone spur removal; [facility] 07-27-12 Surgical History Left Shoulder [...] for a kidney stone Surgical [place] [facility] Surgical History vertabrae fusion 08/2018 Hospitalization History ovarian tumor removed an d left overy Hospitalization History complete hysterectomy 19 94 [facility] Other 11-08-2020 History general Narrative - Reported* Type Description Date Medical History Stress Test; [facility], normal per patient Medical History Pap and Pelvic 3 yea rs ago, OBGYN in [place] Medical History Mammogram over 5 yea rs; Normal at that time per patient Medical History CT Abdomen and Pelvi s over 5 years ago; [facility] Medical History Colonoscopy 8 years ago; in [place], normal in patient Medical History Chest X-Ray 12-15-11; normal, [facility] Medical History Echocardiogram; 12-15; [facility] Medical History Cardiolite Stress Te st 12-16-11; [facility] Medical History Check's sugar's bid Medical History Heart Catherization; [facility] Medical History breast cancer 04/2014 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, status post lumpectomy x2, sentinel lymph node biopsy and adjuvant radiotherapy that concluded on 08-21-14 Medical History 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 - Dr French from [facility] Surgical History Tonsillectomy age 21 Surgical History ovarian tumor removed and left ovary Surgical History complete hysterectomy 1993 Surgical History Heart Catherization; [facility] Surgical History Right Shoulder Tear and bone spur removal; [facility] 07-27-12 Surgical History Left Shoulder [...] for a kidney stone Surgical [place] [facility] [place] Surgical History vertabrae fusion 08/2018 Hospitalization History ovarian tumor removed an d left overy Hospitalization History complete hysterectomy 19 94 [facility] Other 06-20-2020 History general Narrative - Reported* Type Description Date Medical History Stress Test; [facility], normal per patient Medical History Pap and Pelvic 3 yea rs ago, OBGYN in [place] Medical History Mammogram over 5 yea rs; Normal at that time per patient Medical History CT Abdomen and Pelvi s over 5 years ago; [facility] Medical History Colonoscopy 8 years ago; in [place], normal in patient Medical History Chest X-Ray 12-15-11; normal, [facility] Medical History Echocardiogram; 12-15; [facility] Medical History Cardiolite Stress Te st 12-16-11; [facility] Medical History Check's sugar's bid Medical History Heart Catherization; [facility] Medical History breast cancer 04/2014 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, status post lumpectomy x2, sentinel lymph node biopsy and adjuvant radiotherapy that concluded on 08-21-14 Medical History 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 - Dr French from [facility] Surgical History Tonsillectomy age 21 Surgical History ovarian tumor removed and left ovary Surgical History complete hysterectomy 1993 Surgical History Heart Catherization; [facility] Surgical History Right Shoulder Tear and bone spur removal; [facility] 07-27-12 Surgical History Left Shoulder [...] for a kidney stone Surgical [place] [facility] [place] Surgical History vertabrae fusion 08/2018 Hospitalization History ovarian tumor removed an d left overy Hospitalization History complete hysterectomy 19 94 [facility] Other 05-03-2020 History general Narrative - Reported* Type Description Date Medical History Stress Test; [facility], normal per patient Medical History Pap and Pelvic 3 yea rs ago, OBGYN in [place] Medical History Mammogram over 5 yea rs; Normal at that time per patient Medical History CT Abdomen and Pelvi s over 5 years ago; [facility] Medical History Colonoscopy 8 years ago; in [place], normal in patient Medical History Chest X-Ray 12-15-11; normal, [facility] Medical History Echocardiogram; 12-15; [facility] Medical History Cardiolite Stress Te st 12-16-11; [facility] Medical History Check's sugar's bid Medical History Heart Catherization; [facility] Medical History breast cancer 04/2014 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, status post lumpectomy x2, sentinel lymph node biopsy and adjuvant radiotherapy that concluded on 08-21-14 Medical History 11/2016 diabetic shif ting in rt eye - Dr French from [facility] Surgical History Tonsillectomy age 21 Surgical History ovarian tumor removed and left ovary Surgical History complete hysterectomy 1993 Surgical History Heart Catherization; [facility] Surgical History Right Shoulder Tear and bone spur removal; [facility] 07-27-12 Surgical History Left Shoulder [...] for a kidney stone Surgical [place] [facility] [place] Surgical History vertabrae fusion 08/2018 Hospitalization History ovarian tumor removed an d left overy Hospitalization History complete hysterectomy 19 94 [facility] Other 04-26-2020 History general Narrative - Reported* Type Description Date Medical History Stress Test; [facility], normal per patient Medical History Pap and Pelvic 3 yea rs ago, OBGYN in [place] Medical History Mammogram over 5 yea rs; Normal at that time per patient Medical History CT Abdomen and Pelvi s over 5 years ago; [facility] Medical History Colonoscopy 8 years ago; in [place], normal in patient Medical History Chest X-Ray 12-15-11; normal, [facility] Medical History Echocardiogram; 12-15; [facility] Medical History Cardiolite Stress Te st 12-16-11; [facility] Medical History Check's sugar's bid Medical History Heart Catherization; [facility] Medical History breast cancer 04/2014 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, status post lumpectomy x2, sentinel lymph node biopsy and adjuvant radiotherapy that concluded on 08-21-14 Medical History 11/2016 diabetic shif ting in rt eye - Dr French from [facility] Surgical History Tonsillectomy age 21 Surgical History ovarian tumor removed and left ovary Surgical History complete hysterectomy 1993 Surgical History Heart Catherization; [facility] Surgical History Right Shoulder Tear and bone spur removal; [facility] 07-27-12 Surgical History Left Shoulder [...] for a kidney stone Surgical History [place] [facility] [place] Surgical History vertabrae fusion 08/2018 Hospitalization History ovarian tumor removed an d left overy Hospitalization History complete hysterectomy [facility] Other 04-21-2020 History general Narrative - Reported* Type Description Date Medical History Stress Test; [facility], normal per patient Medical History Pap and Pelvic 3 yea rs ago, OBGYN in [place] Medical History Mammogram over 5 yea rs; Normal at that time per patient Medical History CT Abdomen and Pelvi s over 5 years ago; [facility] Medical History Colonoscopy 8 years ago; in [place], normal in patient Medical History Chest X-Ray 12-15-11; normal, [facility] Medical History Echocardiogram; 12-15; [facility] Medical History Cardiolite Stress Te st 12-16-11; [facility] Medical History Check's sugar's bid Medical History Heart Catherization; [facility] Medical History breast cancer 04/2014 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, status post lumpectomy x2, sentinel lymph node biopsy and adjuvant radiotherapy that concluded on 08-21-14 Medical History 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 - Dr French from [facility] Surgical History Tonsillectomy age 21 Surgical History ovarian tumor removed and left ovary Surgical History complete hysterectomy 1993 Surgical History Heart Catherization; [facility] Surgical History Right Shoulder Tear and bone spur removal; [facility] 07-27-12 Surgical History Left Shoulder [...] for a kidney stone Surgical History [place] [facility] [place] Surgical History vertabrae fusion 08/2018 Hospitalization History ovarian tumor removed an d left overy Hospitalization History complete hysterectomy [facility] Other 03-12-2020 History general Narrative - Reported* Type Description Date Medical History Stress Test; [facility], normal per patient Medical History Pap and Pelvic 3 yea rs ago, OBGYN in [place] Medical History Mammogram over 5 yea rs; Normal at that time per patient Medical History CT Abdomen and Pelvi s over 5 years ago; [facility] Medical History Colonoscopy 8 years ago; in [place], normal in patient Medical History Chest X-Ray 12-15-11; normal, [facility] Medical History Echocardiogram; 12-15; [facility] Medical History Cardiolite Stress Te st 12-16-11; [facility] Medical History Check's sugar's bid Medical History Heart Catherization; [facility] Medical History breast cancer 04/2014 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, status post lumpectomy x2, sentinel lymph node biopsy and adjuvant radiotherapy that concluded on 08-21-14 Medical History 11/2016 diabetic shif ting in rt eye - Dr French from [facility] Surgical History Tonsillectomy age 21 Surgical History ovarian tumor removed and left ovary Surgical History complete hysterectomy 1993 Surgical History Heart Catherization; [facility] Surgical History Right Shoulder Tear and bone spur removal; [facility] 07-27-12 Surgical History Left Shoulder [...] for a kidney stone Surgical [place] [facility] [place] Surgical History vertabrae fusion 08/2018 Hospitalization History ovarian tumor removed an d left overy Hospitalization History complete hysterectomy 19 94 [facility] Other 03-07-2020 History general Narrative - Reported* Type Description Date Medical History Stress Test; [facility], normal per patient Medical History Pap and Pelvic 3 yea rs ago, OBGYN in [place] Medical History Mammogram over 5 yea rs; Normal at that time per patient Medical History CT Abdomen and Pelvi s over 5 years ago; [facility] Medical History Colonoscopy 8 years ago; in [place], normal in patient Medical History Chest X-Ray 12-15-11; normal, [facility] Medical History Echocardiogram; 12-15; [facility] Medical History Cardiolite Stress Te st 12-16-11; [facility] Medical History Check's sugar's bid Medical History Heart Catherization; [facility] Medical History breast cancer 04/2014 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, status post lumpectomy x2, sentinel lymph node biopsy and adjuvant radiotherapy that concluded on 08-21-14 Medical History 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 - Dr French from [facility] Surgical History Tonsillectomy age 21 Surgical History ovarian tumor removed and left ovary Surgical History complete hysterectomy 1993 Surgical History Heart Catherization; [facility] Surgical History Right Shoulder Tear and bone spur removal; [facility] 07-27-12 Surgical History Left Shoulder [...] for a kidney stone Surgical History [place] [facility] [place] Surgical History vertabrae fusion 08/2018 Hospitalization History ovarian tumor removed an d left overy Hospitalization History complete hysterectomy 19 94 [facility] Other 03-04-2020 History general Narrative - Reported* Type Description Date Medical History Stress Test; [facility], normal per patient Medical History Pap and Pelvic 3 yea rs ago, OBGYN in [place] Medical History Mammogram over 5 yea rs; Normal at that time per patient Medical History CT Abdomen and Pelvi s over 5 years ago; [facility] Medical History Colonoscopy 8 years ago; in [place], normal in patient Medical History Chest X-Ray 12-15-11; normal, [facility] Medical History Echocardiogram; 12-15; [facility] Medical History Cardiolite Stress Te st 12-16-11; [facility] Medical History Check's sugar's bid Medical History Heart Catherization; [facility] Medical History breast cancer 04/2014 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, status post lumpectomy x2, sentinel lymph node biopsy and adjuvant radiotherapy that concluded on 08-21-14 Medical History 11/2016 diabetic shif ting in rt eye - Dr French from [facility] Surgical History Tonsillectomy age 21 Surgical History ovarian tumor removed and left ovary Surgical History complete hysterectomy 1993 Surgical History Heart Catherization; [facility] Surgical History Right Shoulder Tear and bone spur removal; [facility] 07-27-12 Surgical History Left Shoulder [...] for a kidney stone Surgical History [place] [facility] [place] Surgical History vertabrae fusion 08/2018 Hospitalization History ovarian tumor removed an d left overy Hospitalization History complete hysterectomy 19 94 [facility] Other 02-22-2020 History general Narrative - Reported* Type Description Date Medical History Stress Test; [facility], normal per patient Medical History Pap and Pelvic 3 yea rs ago, OBGYN in [place] Medical History Mammogram over 5 yea rs; Normal at that time per patient Medical History CT Abdomen and Pelvi s over 5 years ago; [facility] Medical History Colonoscopy 8 years ago; in [place], normal in patient Medical History Chest X-Ray 12-15-11; normal, [facility] Medical History Echocardiogram; 12-15; [facility] Medical History Cardiolite Stress Te st 12-16-11; [facility] Medical History Check's sugar's bid Medical History Heart Catherization; [facility] Medical History breast cancer 04/2014 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, status post lumpectomy x2, sentinel lymph node biopsy and adjuvant radiotherapy that concluded on 08-21-14 Medical History 11/2016 diabetic shif ting in rt eye - Dr French from [facility] Surgical History Tonsillectomy age 21 Surgical History ovarian tumor removed and left ovary Surgical History complete hysterectomy 1993 Surgical History Heart Catherization; [facility] Surgical History Right Shoulder Tear and bone spur removal; [facility] 07-27-12 Surgical History Left Shoulder [...] for a kidney stone Surgical History [place] [facility] [place] Surgical History vertabrae fusion 08/2018 Hospitalization History ovarian tumor removed an d left overy Hospitalization History complete hysterectomy 19 94 [facility] Other 02-12-2020 History general Narrative - Reported* Type Description Date Medical History Stress Test; [facility], normal per patient Medical History Pap and Pelvic 3 yea rs ago, OBGYN in [place] Medical History Mammogram over 5 yea rs; Normal at that time per patient Medical History CT Abdomen and Pelvi s over 5 years ago; [facility] Medical History Colonoscopy 8 years ago; in [place], normal in patient Medical History Chest X-Ray 12-15-11; normal, [facility] Medical History Echocardiogram; 12-15; [facility] Medical History Cardiolite Stress Te st 12-16-11; [facility] Medical History Check's sugar's bid Medical History Heart Catherization; [facility] Medical History breast cancer 04/2014 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, status post lumpectomy x2, sentinel lymph node biopsy and adjuvant radiotherapy that concluded on 08-21-14 Medical History 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 - Dr French from [facility] Surgical History Tonsillectomy age 21 Surgical History ovarian tumor removed and left ovary Surgical History complete hysterectomy 1993 Surgical History Heart Catherization; [facility] Surgical History Right Shoulder Tear and bone spur removal; [facility] 07-27-12 Surgical History Left Shoulder [...] for a kidney stone Surgical History [place] [facility] [place] Surgical History vertabrae fusion 08/2018 Hospitalization History ovarian tumor removed an d left overy Hospitalization History complete hysterectomy 19 94 [facility] Other 10-27-2019 History general Narrative - Reported* Type Description Date Medical History Stress Test; [facility], normal per patient Medical History Pap and Pelvic 3 yea rs ago, OBGYN in [place] Medical History Mammogram over 5 yea rs; Normal at that time per patient Medical History CT Abdomen and Pelvi s over 5 years ago; [facility] Medical History Colonoscopy 8 years ago; in [place], normal in patient Medical History Chest X-Ray 12-15-11; normal, [facility] Medical History Echocardiogram; 12-15; [facility] Medical History Cardiolite Stress Te st 12-16-11; [facility] Medical History Check's sugar's bid Medical History Heart Catherization; [facility] Medical History breast cancer 04/2014 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, status post lumpectomy x2, sentinel lymph node biopsy and adjuvant radiotherapy that concluded on 08-21-14 Medical History 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 - Dr French from [facility] Surgical History Tonsillectomy age 21 Surgical History ovarian tumor removed and left ovary Surgical History complete hysterectomy 1993 Surgical History Heart Catherization; [facility] Surgical History Right Shoulder Tear and bone spur removal; [facility] 07-27-12 Surgical History Left Shoulder [...] for a kidney stone Surgical History [place] [facility] [place] Surgical History vertabrae fusion 08/2018 Hospitalization History ovarian tumor removed an d left overy Hospitalization History complete hysterectomy 19 94 [facility] Other Evaluation noteNo InformationNortIcera Other Evaluation noteNo assessment information available [facility] Work Phone: Evaluation note* Diagnosis 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 Cornejo or Viki for evaluation of right shoulder pain Diagnosis 1 Shoulder pain, right (M25.511) Referral Organization [facility] Chuck Zavala Referring Provider First Name Rin Referring Provider Last Name Lyn Referring Provider Specialty Family Prac meenu Referred Organization [facility] Referred Address ,[place], [place],[address] Referred Provider Specialty Orthopedic S urgery Referral Priority Routine General Notes Florinda Leonard 02/08/2022 05:31:28 PM > [facility] referral form hard faxed with visit note, med list and insurance card. pt understands she will be contacted to schedule this appt. [facility] Other Summary Purpose Family History No Family History Records Found Relationship Condition Age at Onset Recorded Date/T rob father Pulmonary emphysema Unknown Not Specified Cerebrovascular accident (CVA) Unknown Relationship Condition Age at Onset Recorded Date/T rob father Pulmonary emphysema Unknown mother Cerebrovascular accident (CVA) Unknown brother Family history of mental disorder Unknown Diabetes mellitus Unknown father Family history of emphysema Unknown Unknown grandparent Unknown Tuberculosis Unknown mother Unknown History of stroke Unknown sister Diabetes mellitus Unknown Advance Directives No Advanced Directives Records Found Advance Directive Response Recorded Date/ Time Advance Directives No February 15, 2017 3:18pm Hospital Course Note MR#: [id number] I [facility] Pt. 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 February 01, 2024 2:41pm Hypertensive nephropathy January 31, 024 2:41pm Hyperthyroidism February 01, 2024 2 :41pm Vitamin B12 deficiency January 31 2:41pm Chest pain February 03, 2024 9 :48am Chronic kidney disease, stage 3b February 03, 2024 9:48am Epigastric pain February 03, 2024 9 :48am Fatty liver February 03, 2024 9 :48am Right upper quadrant abdominal pain Octo doni 2023 9:48am Diabetes mellitus February 03, 2024 9 :48am Additional Source Comments INFORMATION SOURCE (unrecogn ized section and content) DATE CREATED AUTHOR 06/05/2018 [facility] DATE CREATED AUTHOR AUTHOR'S ORGANIZ ATION 12/09/2018 [facility] DATE CREATED AUTHOR AUTHOR'S ORGANIZ ATION 08/31/2022 [facility] DATE CREATED AUTHOR AUTHOR'S ORGANIZ ATION 03/05/2024 [facility] DATE CREATED AUTHOR AUTHOR'S ORGANIZ ATION 03/08/2024 [facility] EPIC REASON FOR VISIT (unrecogniz ed section and content) Reason Comments Thyroid Problem Follow-up Goals (unrecognized section and content) Goals may be documented in a n alternate section Care Teams (unrecognized sec tion and content) Team Status: Active Member Role Status Dates Rin Nicholson DO Primary Care Provider Active Team Status: Inactive Member Role Status Dates Rin Nicholson DO Primary Care Provider, Attending Pro vider Active Team Status: Inactive Member Role Status Dates Rin Nicholson DO Primary Care Provide r, Referring Provider Active Start: February 01, 2024 End: February 01, 2024 Barbara Franklin MD Attending Provider Active Star t: February 01, 2024 End: February 01, 2024 Team Status: Inactive Member Role Status Dates Rin Nicholson DO Primary Care Provide r, Attending Provider Active Start: February 03, 2024 End: February 03, 2024 Team Status: Active Member Role Status Dates Rin Nicholson DO Primary Care Provider Active S tart: February 22, 2024 Nae Vazquez MD Attending Provider Active Sta rt: February 22, 2024 Team Status: Inactive Member Role Status Dates Jeffrey Urias MD Attending Provider Active St art: March 02, 2024 End: March 02, 2024 Rin Nicholson DO Primary Care Provide r, Referring Provider Active Start: March 02, 2024 End: March 02, 2024 Tissue Packer Relationship Specialty Start Date End Date Rin Nicholson MD [address] [place] [address] PCP - General Family Medicine 03/01/24 Tissue Packer Relationship Specialty Start Date End Date Rin Nicholson MD [address] [place], [place] [id number] PCP - General Family Medicine 03/01/24 FOR RECORDS PERTAINING TO PATIENTS WHO ARE [...] BE BASED ON THE PRIMARY CLINICAL RECORDS. [employer] [facility]. provides no warranty or guarantee of the accuracy or completeness of information in this document.
[2024-05-22 07:43] LABS: Basophils Absolute Auto 0.1 10^3/uL (0.0-0.1); Basophils Percent Auto 1.4 % (0.2-2.0); Eosinophils Absolute Auto 0.3 10^3/uL (0.0-0.7); Eosinophils Percent Auto 3.3 % (0.9-7.0); Hematocrit 40.1 % (36.0-48.0); Hemoglobin 13.6 g/dL (12.0-16.0); Immature Granulocytes Abs Auto 0.04 10^3/uL (0.00-0.03); Immature Granulocytes Pct Auto 0.4 % (0.0-0.5); Lymphocytes Absolute Auto 2.9 10^3/uL (1.2-3.8); Lymphocytes Percent Auto 29.5 % (20.5-60.0); Mean Corpuscular HGB Conc 33.9 g/dL (29.9-35.2); Mean Corpuscular Hemoglobin 32.2 pg (26.7-34.0); Mean Platelet Volume 10.3 fL (9.5-13.5); Monocytes Absolute Auto 0.6 10^3/uL (0.3-0.8); Monocytes Percent Auto 6.3 % (1.7-12.0); Neutrophils Absolute Auto 5.7 10^3/uL (1.4-6.5); Neutrophils Percent Auto 59.1 % (43.0-75.0); Platelet Count 280 10^3/uL (150-450); Red Blood Count 4.22 10^6/uL (4.20-5.40); Red Cell Distribution Width 13.4 % (11.0-15.0); White Blood Count 9.7 10^3/uL (4.0-11.0)
[2024-05-22 08:09] LABS: Estimated Average Glucose 200 mg/dL; Glycohemoglobin A1C 8.6 % (4.5-6.2)
[2024-05-22 08:11] LABS: Alanine Aminotransferase 20 U/L (14-59); Albumin Level 3.8 g/dL (3.4-5.0); Alkaline Phosphatase 122 U/L (46-116); Anion Gap 13.1; Aspartate Amino Transferase 12 U/L (15-37); BUN Creatinine Ratio 19.5; Bilirubin Total 0.3 mg/dL (0.2-1.0); Calcium 9.4 mg/dL (8.5-10.1); Carbon Dioxide 28.6 mmol/L (21.0-32.0); Chloride 101 mmol/L (98-107); Chol HDL Ratio 4.8; Cholesterol 250 mg/dL (<=200); Estimated GFR (African America 41 (>=60 mL/min/1.73m^2); Estimated GFR (Non-African Ame 34 (>=60 mL/min/1.73m^2); Globulin 3.9 g/dL; Glucose 195 mg/dL (74-106); HDL Cholesterol 52 mg/dL (40-60); Potassium 4.7 mmol/L (3.5-5.1); Sodium 138 mmol/L (136-145); Total Protein 7.7 g/dL (6.4-8.2); Triglycerides 225 mg/dL (<=150)
[2024-05-23 04:07] LABS: Vitamin B12 1266 pg/mL (232-1245)
== END 2024-05-22 07:14 | disposition home or self-care (01) ==
LOC: LAB 07:13
PROVIDERS: PCP Family Medicine; Visit Provider Family Medicine
DX: Z79.899 Other long term (current) drug therapy (principal); E11.9 Type 2 diabetes mellitus without complications; E53.8 Deficiency of other specified B group vitamins; E78.5 Hyperlipidemia, unspecified
CPT/HCPCS: 36415; 80053; 80061; 82607; 82746; 83036; 85025

== ENCOUNTER 2024-05-22 07:16 | Outpatient (OUT) | payer MEDICARE, SELFPAY ==
--- OUTSIDE RECORDS SUMMARY | 2024-05-22 07:19 | XMS_ITS | CCD ---
Author Organization [facility] Care Team Providers Care Sheep Killer Name Role Phone Selin Jean Attending Unavailable Ted, Selin Pastor Attending Unavailable CHUCHO HONEYCUTT Attending Unavailable Ted, Selin Pastor Attending Unavailable UNKNOWN, PROVIDER Admitting Unavailable SELF, REFERRED Referring Unavailable SELF, REFERRED Primary Care Unavailable CHIP CEDILLO Attending Unavailable [place] Procedure Practitioner Unavailab le UNKNOWN, PROVIDER Surgeon [...] Unavailable DO Rin Nicholson Primary Care Provider [phone] DO Rin Nicholson Attending Provider [phone] Jeffrey Urias MD Attending Provider Rin Nicholson DO Primary Care Provider Rin Nicholson DO Referring Provider Rin Nicholson Attending Unavailable LynRin Primary Care Unavailable Rin Nicholson Admitting Unavailable Jeffrey Urias Attending Unavailable Jeffrey Urias Admitting Unavailable Rin Nicholson Referring Unavailable Rin Nicholson Primary Care Unavailable Rin Nicholson MD Primary Care Provider [phone] NAE VAZQUEZ Attending Unavailable NAE VAZQUEZ Referring [...] tablet by mouth three times weekly Vitamin W97-Sifba Acid 500-400 mcg tablet Active 1 TAB PO .COMPLEX February 01, 2024 1:47pm 1 tab orally three times a week; Start: 10-17-2023 End: 02-01-2024 Vitamin N59-Xalnv Acid 500-4 00 mcg tablet Discontinued 1 TAB PO .COMPLEX October 17, 2023 11:16am February 01, 2024 1:48pm 1 tab orally Tue-Tuesday; Start: 05-31-2019 End: 10-17-2023 take 1 tablet by mouth once daily Vitamin I49-Nknbz Acid 500-400 mcg tablet Discontinued 1 TAB [...] kidney disease Other aftercare (1 source) Other senior living (current) drug therapy; 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: [OTH NURSING HOME CURRENT DRUG THERAPY] Onset: 05-03-2022 Episodic Other aftercare (1 source) 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 of oral hypoglycemic drugs; 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: [EXPANSION EN[employer]EL[employer] HAND USE ORAL HYPOGLYCEMIC DX] Onset: 05-03-2022 Episodic Pneumonia (except that caused by tuberculosis or sexually transmitted disease) (1 source) Bronchopneumonia, unspecified organism; 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: [BRONCHOPNEUMONIA UNS ORGANISM] Onset: 05-03-2022 Episodic Unclassified (1 source) COUGH, UNSPECIFIED; 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: [COUGH, UNSPECIFIED] Onset: 04-30-2022 Results Test Name Value Interpretation Reference Range Facility NM heaven perf SPECT rest stron 03-02-2024 NM heaven perf SPECT rest [facility] [place] [address] Nuclear Medicine Report Signed Patient: Leslee Morfin MR#: [id number] : 1955 Acct:[id number] Age/Sex: 68 / F ADM Date: 03/02/24 Loc: NM Room: Type: DEP CLI Attending Dr: Jeffrey Urias MD Copies to: Jeffrey Urias MD, [facility] Ryne Johnson MD Ordering Provider: Jeffrey Urias MD, [facility] Date of Service: 03/02/24 NM/NM heaven perf SPECT rest str: R07.9 REFERRING PHYSICIAN: [...] 1551 Signed By: 03/03/24 0704 Normal [facility] STR cardiac stress/cardiolon 03-02-2024 STR cardiac stress/cardiol [facility] [place] [address] Cardiac Stress Test Signed Patient: Leslee Morfin MR#: [id number] : 1955 Acct:[id number] Age/Sex: 68 / F ADM Date: 03/02/24 Loc: DC Room: Type: DEP CLI Attending Dr: Jeffrey rUias MD Copies to: DO Ryne Barlow MD [...] 1431 Signed By: 03/03/24 1440 Normal [facility] Globulin Calc (S) [Mass/Vol] on 02-22-2024 Globulin (S) [Mass/Vol] Serum globulin measurement by calculation (mass/volume) [facility] Laboratory - Chemistry and C hemistry - challengeon 02-22-2024 Albumin [Mass/Vol] 3.8 g/dL 3.4-5.0 [facility] ALP [Catalytic activity/Vol] 136 U/L High 46-116 [facility] ALT [Catalytic activity/Vol] 25 U/L 14-59 [facility] AST [Catalytic activity/Vol] 19 U/L 15-37 [facility] Bilirubin [Mass/Vol] 0.4 mg/dL 0.2-1.0 [facility] Bilirubin.direct [Mass/Vol] 0.1 mg/dL 0.0-0.2 [facility] Free T4 [Mass/Vol] 0.95 ng/dL 0.76-1.46 [facility] Protein [Mass/Vol] 7.7 g/dL 6.4-8.2 [facility] TSH Qn 10.261 m[IU]/L High 0.358-3.740 [facility] No Panel Informationon 02-21 Free Triiodothyronine 2.09 pg/mL Low 2.18-3.98 [facility] Serum or plasma albumin/glob ulin mass ratioon 02-22-2024 Albumin/Globulin [Mass ratio] Serum or plasma albumin/globulin mass ratio [facility] MM screening mammo BI w/CADo n 05-03-2023 MM screening mammo BI w/CAD [facility] [place] [address] [place] [address] Mammography Report Signed Patient: Leslee Morfin MR#: [id number] : 1955 Acct:[id number] Age/Sex: 67 / F ADM Date: 05/03/23 Loc: HI Room: Type: [facility] Attending Dr: Rin Nicholson DO Copies to: [...] M.D.05/03/2023 1:52 PM Dictation Location: [facility] Transcribed By: [facility] 05/03/23 1352 Dictated By: Carmela Cuevas MD 05/03/23 1349 Signed By: 05/03/23 1352 Normal [facility] PROF CHEM 8 (BAS METB)on Anion gap [Moles/Vol] 14.4 mmol/L Normal [facility] Comment on above: Performed By: #### B MP #### [facility] [address] [address] [address] Raf Pearl Calcium [Mass/Vol] 9.3 mg/dL Normal 8.5-10.1 [facility] Comment on above: Performed By: #### B MP #### [facility] [address] [address] [address] Raf Pearl Chloride [Moles/Vol] 102 mmol/L Normal 98-107 [facility] Comment on above: Performed By: #### B MP #### [facility] [address] [address] [address] Raf Pearl CO2 [Moles/Vol] 26.9 mmol/L Normal 21.0-32.0 [facility] Comment on above: Performed By: #### B MP #### [facility] [address] [address] [address] Raf Pearl Creatinine [Mass/Vol] 1.32 mg/dL Critically high 0.55-1.02 [facility] Comment on above: Performed By: #### B MP #### [facility] [address] [address] [address] Raf Pearl EGFR-AF TURKMEN 49 mL/min/1.73m2 Critically low >=60 [facility] Comment on above: Performed By: #### B MP #### [facility] [address] [address] [address] Raf Pearl EGFR-NON AF TURKMEN 40 mL/min/1.73m2 Critically low >=60 [facility] Comment on above: Performed By: #### B MP #### [facility] [address] [address] [address] Raf Pearl Glucose [Mass/Vol] 151 mg/dL Critically high 74-106 [facility] Comment on above: Performed By: #### B MP #### [facility] [address] [address] [address] Raf Pearl Potassium [Moles/Vol] 4.3 mmol/L Normal 3.5-5.1 [facility] Comment on above: Performed By: #### B MP #### [facility] [address] [address] [address] Raf Pearl Sodium [Moles/Vol] 139 mmol/L Normal 136-145 [facility] Comment on above: Performed By: #### B MP #### [facility] [address] [address] [address] Raf Pearl Urea nitrogen [Mass/Vol] 17.0 mg/dL Normal 7.0-18.0 [facility] Comment on above: Performed By: #### B MP #### [facility] [address] [address] [address] Raf Pearl Urea nitrogen/Creatinine [Mass ratio] 12.9 mg/mg Normal [facility] Comment on above: Performed By: #### B MP #### [facility] [address] [address] [address] Raf Pearl PROF CHEM 8 (BAS METB)on Anion gap [Moles/Vol] 9.7 mmol/L Normal [facility] Comment on above: Performed By: #### B MP #### [facility] [address] [address] [address] Raf Pearl Calcium [Mass/Vol] 9.1 mg/dL Normal 8.5-10.1 [facility] Comment on above: Performed By: #### B MP #### [facility] [address] [address] [address] Raf Pearl Chloride [Moles/Vol] 100 mmol/L Normal 98-107 [facility] Comment on above: Performed By: #### B MP #### [facility] [address] [address] [address] Raf Pearl CO2 [Moles/Vol] 28.0 mmol/L Normal 21.0-32.0 [facility] Comment on above: Performed By: #### B MP #### [facility] [address] [address] [address] Raf Pearl Creatinine [Mass/Vol] 1.18 mg/dL Critically high 0.55-1.02 [facility] Comment on above: Performed By: #### B MP #### [facility] [address] [address] [address] Raf Pearl EGFR-AF TURKMEN 56 mL/min/1.73m2 Critically low >=60 [facility] Comment on above: Performed By: #### B MP #### [facility] [address] [address] [address] Raf Pearl EGFR-NON AF TURKMEN 46 mL/min/1.73m2 Critically low >=60 [facility] Comment on above: Performed By: #### B MP #### [facility] [address] [address] [address] Raf Pearl Glucose [Mass/Vol] 113 mg/dL Critically high 74-106 [facility] Comment on above: Performed By: #### B MP #### [facility] [address] [address] [address] Raf Pearl Potassium [Moles/Vol] 3.7 mmol/L Normal 3.5-5.1 [facility] Comment on above: Performed By: #### B MP #### [facility] [address] [address] [address] Raf Pearl Sodium [Moles/Vol] 134 mmol/L Critically low 136-145 [facility] Comment on above: Performed By: #### B MP #### [facility] [address] [address] [address] Raf Pearl Urea nitrogen [Mass/Vol] 13.0 mg/dL Normal 7.0-18.0 [facility] Comment on above: Performed By: #### B MP #### [facility] [address] [place] [address] Dr. Raf Pearl Urea nitrogen/Creatinine [Mass ratio] 11.0 mg/mg Normal [facility] Comment on above: Performed By: #### B MP #### [facility] [address] [place] [address] Dr. Raf Pearl FOLATE ([facility])on Folate >20.0 Normal >3.0 [facility] Comment on above: Result Comment: A se rum folate concentration of less than 3.1 ng/mL is considered to represent clinical deficiency. Performed By: #### F OLALC #### [facility] [address] [place] [address] Dr. Raf Pearl CBC AUTO DIFFon 07-31-2022 BASO # 0.1 103/ul Normal 0.0-0.1 [facility] Comment on above: Performed By: #### M ALBR #### [facility] [address] [place] [address] Dr. Raf Pearl Basophils/100 WBC (Bld) 1.3 % Normal 0.2-2.0 [facility] Comment on above: Performed By: #### M ALBR #### [facility] [address] [place] [address] Dr. Raf Pearl EO # 0.4 103/ul Normal 0.0-0.7 [facility] Comment on above: Performed By: #### M ALBR #### [facility] [address] [place] [address] Dr. Raf Pearl Eosinophils/100 WBC (Bld) 4.5 % Normal 0.9-7.0 [facility] Comment on above: Performed By: #### M ALBR #### [facility] [address] [place] [address] Dr. Raf Pearl Erythrocyte distribution width (RBC) [Ratio] 13.2 % Normal 11.0-15.0 [facility] Comment on above: Performed By: #### M ALBR #### [facility] [address] [place] [address] Dr. Raf Pearl Hematocrit (Bld) [Volume fraction] 33.8 % Critically low 36.0-48.0 [facility] Comment on above: Performed By: #### M ALBR #### [facility] [address] [place] [address] Dr. Raf Pearl Hemoglobin (Bld) [Mass/Vol] 11.5 g/dL Critically low 12.0-16.0 [facility] Comment on above: Performed By: #### M ALBR #### [facility] [address] [place] [address] Dr. Raf Pearl IG # 0.02 10e3/ul Normal 0.00-0.03 [facility] Comment on above: Performed By: #### M ALBR #### [facility] [address] [place] [address] Dr. Raf Pearl IG % 0.2 % Normal 0.0-0.5 [facility] Comment on above: Performed By: #### M ALBR #### [facility] [address] [place] [address] Dr. Raf Pearl LYMPH # 2.6 103/ul Normal 1.2-3.8 [facility] Comment on above: Performed By: #### M ALBR #### [facility] [address] [place] [address] Dr. Raf Pearl Lymphocytes/100 WBC (Bld) 31.6 % Normal 20.5-60.0 [facility] Comment on above: Performed By: #### M ALBR #### [facility] [address] [place] [address] Dr. Raf Pearl MANUAL DIFF REQ NO Normal [facility] Comment on above: Performed By: #### M ALBR #### [facility] [address] [place] [address] Dr. Raf Pearl MCH (RBC) [Entitic mass] 31.1 pg Normal 26.7-34.0 [facility] Comment on above: Performed By: #### M ALBR #### [facility] [address] [place] [address] Dr. Raf Pearl MCHC (RBC) [Mass/Vol] 34.0 g/dL Normal 29.9-35.2 [facility] Comment on above: Performed By: #### M ALBR #### [facility] [address] [place] [address] Dr. Raf Pearl MCV (RBC) [Entitic vol] 91.4 fL Normal 81.0-99.0 [facility] Comment on above: Performed By: #### M ALBR #### [facility] [address] [place] [address] Dr. Raf Pearl MONO # 0.6 103/ul Normal 0.3-0.8 [facility] Comment on above: Performed By: #### M ALBR #### [facility] [address] [place] [address] Dr. Raf Pearl Monocytes/100 WBC (Bld) 7.2 % Normal 1.7-12.0 [facility] Comment on above: Performed By: #### M ALBR #### [facility] [address] [place] [address] Dr. Raf Pearl NEUT # 4.6 103/ul Normal 1.4-6.5 [facility] Comment on above: Performed By: #### M ALBR #### [facility] [address] [place] [address] Dr. Raf Pearl Neutrophils/100 WBC (Bld) 55.2 % Normal 43.0-75.0 [facility] Comment on above: Performed By: #### M ALBR #### [facility] [address] [place] [address] Dr. Raf Pearl Platelet mean volume (Bld) [Entitic vol] 10.0 fL Normal 9.5-13.5 [facility] Comment on above: Performed By: #### M ALBR #### [facility] [address] [place] [address] Dr. Raf Pearl PLT 352 103/ul Normal 150-450 [facility] Comment on above: Performed By: #### M ALBR #### [facility] [address] [place] [address] Dr. Raf Pearl RBC 3.70 106/ul Critically low 4.20-5.40 [facility] Comment on above: Performed By: #### M ALBR #### [facility] [address] [address] [address] Raf Pearl WBC 8.2 103/ul Normal 4.0-11.0 [facility] Comment on above: Performed By: #### M ALBR #### [facility] [address] [address] [address] Raf Pearl CULTURE URINEon 07-31-2022 CULTURE URINE Culture Observations: NO GROWTH. Normal [facility] Comment on above: Performed By: #### B MP #### [facility] [address] [address] [address] Raf Pearl GLYCOHEMOGLOBIN A1Con 2022 ADA RECOMMENDATION SEE BELOW Normal [facility] Comment on above: Result Comment: ADA RECOMMENDED LIMIT 4.0 - 6.0 ADA THERAPEUTIC TARGET < 7.0 ACTION SUGGESTED > 7.0 Performed By: #### B MP #### [facility] [address] [place] [address] Dr. Raf Pearl Glucose [Mass/Vol] 140 mg/dL Normal [facility] Comment on above: Performed By: #### B MP #### [facility] [address] [place] [address] Dr. Raf Pearl HbA1c (Bld) [Mass fraction] 6.5 % Critically high 4.5-6.2 [facility] Comment on above: Performed By: #### B MP #### [facility] [address] [place] [address] Dr. Raf Pearl LIPID PROFILEon 07-31-2022 CHOL-HDL RATIO NORM SEE BELOW Normal [facility] Comment on above: Result Comment: 3.3 - 4.4 LOW RISK 4.4 - 7.1 AVERAGE RISK 7.1 - 11.0 MODERATE RISK >11.0 HIGH RISK Performed By: #### C MP, LIPID, TSH #### [facility] [address] [place] [address] Dr. Raf Pearl Cholesterol [Mass/Vol] 166 mg/dL Normal <=200 [facility] Comment on above: Performed By: #### C MP, LIPID, TSH #### [facility] [address] [address] [address] Raf Pearl Cholesterol in HDL [Mass/Vol] 57 mg/dL Normal 40-60 [facility] Comment on above: Performed By: #### C MP, LIPID, TSH #### [facility] [address] [address] [address] Raf Pearl Cholesterol in LDL [Mass/Vol] 91.4 mg/dL Normal [facility] Comment on above: Performed By: #### C MP, LIPID, TSH #### [facility] [address] [address] [address] Raf Pearl Cholesterol.total/Cho lesterol in HDL [Mass ratio] 2.9 {ratio} Normal [facility] Comment on above: Performed By: #### C MP, LIPID, TSH #### [facility] [address] [address] [address] Raf Pearl HDL NORMAL > or = 60 mg/dl - LOW CARDIOVASCULAR RISK <40 mg/dl - HIGH CARDIOVASCULAR RISK Normal [facility] Comment on above: Performed By: #### C MP, LIPID, TSH #### [facility] [address] [address] [address] Raf Pearl LDL CALC NORMAL SEE BELOW Normal [facility] Comment on above: Result Comment: <100 mg/dl OPTIMAL 100 - 129 mg/dl NEAR OR ABOVE OPTIMAL 130 - 159 mg/dl BORDERLINE HIGH 160 - 189 mg/dl HIGH >190 mg/dl VERY HIGH Performed By: #### C MP, LIPID, TSH #### [facility] [address] [address] [address] Raf Pearl Triglyceride [Mass/Vol] 88 mg/dL Normal <=150 [facility] Comment on above: Performed By: #### C MP, LIPID, TSH #### [facility] [address] [address] [address] Raf Pearl VLDL CALC 17.6 mg/dL Normal [facility] Comment on above: Performed By: #### C MP, LIPID, TSH #### [facility] [address] [address] [address] Raf Pearl MICROALBUMIN, RAND URon 07-17 mALB <1.3 Normal <=30.0 [facility] Comment on above: Performed By: #### M ALBR #### [facility] [address] [address] [address] Raf Pearl PROF 14(COMP METB)on 023 Albumin [Mass/Vol] 3.6 g/dL Normal 3.4-5.0 [facility] Comment on above: Performed By: #### C MP, LIPID, TSH #### [facility] [address] [address] [address] Raf Pearl Albumin/Globulin [Mass ratio] 1.0 {ratio} Normal [facility] Comment on above: Performed By: #### C MP, LIPID, TSH #### [facility] [address] [place] [address] Dr. Raf Pearl ALP [Catalytic activity/Vol] 70 U/L Normal 46-116 [facility] Comment on above: Performed By: #### C MP, LIPID, TSH #### [facility] [address] [address] [address] Raf Pearl ALT [Catalytic activity/Vol] 22 U/L Normal 14-59 [facility] Comment on above: Performed By: #### C MP, LIPID, TSH #### [facility] [address] [address] [address] Raf Pearl Anion gap [Moles/Vol] 11.8 mmol/L Normal [facility] Comment on above: Performed By: #### C MP, LIPID, TSH #### [facility] [address] [address] [address] Raf Pearl AST [Catalytic activity/Vol] 19 U/L Normal 15-37 [facility] Comment on above: Performed By: #### C MP, LIPID, TSH #### [facility] [address] [address] [address] Raf Pearl Bilirubin [Mass/Vol] 0.3 mg/dL Normal 0.2-1.0 [facility] Comment on above: Performed By: #### C MP, LIPID, TSH #### [facility] [address] [address] [address] Raf Pearl Calcium [Mass/Vol] 9.0 mg/dL Normal 8.5-10.1 [facility] Comment on above: Performed By: #### C MP, LIPID, TSH #### [facility] [address] [address] [address] Raf Pearl Chloride [Moles/Vol] 104 mmol/L Normal 98-107 [facility] Comment on above: Performed By: #### C MP, LIPID, TSH #### [facility] [address] [place] [address] Dr. Raf Pearl CO2 [Moles/Vol] 28.6 mmol/L Normal 21.0-32.0 [facility] Comment on above: Performed By: #### C MP, LIPID, TSH #### [facility] [address] [place] [address] Dr. Raf Pearl Creatinine [Mass/Vol] 1.48 mg/dL Critically high 0.55-1.02 [facility] Comment on above: Performed By: #### C MP, LIPID, TSH #### [facility] [address] [place] [address] Dr. Raf Pearl EGFR-AF TURKMEN 43 mL/min/1.73m2 Critically low >=60 [facility] Comment on above: Performed By: #### C MP, LIPID, TSH #### [facility] [address] [place] [address] Dr. Raf Pearl EGFR-NON AF TURKMEN 35 mL/min/1.73m2 Critically low >=60 [facility] Comment on above: Performed By: #### C MP, LIPID, TSH #### [facility] [address] [place] [address] Dr. Raf Pearl Globulin (S) [Mass/Vol] 3.5 g/dL Normal [facility] Comment on above: Performed By: #### C MP, LIPID, TSH #### [facility] [address] [place] [address] Dr. Raf Pearl Glucose [Mass/Vol] 102 mg/dL Normal 74-106 [facility] Comment on above: Performed By: #### C MP, LIPID, TSH #### [facility] [address] [address] [address] Raf Pearl Potassium [Moles/Vol] 4.4 mmol/L Normal 3.5-5.1 [facility] Comment on above: Performed By: #### C MP, LIPID, TSH #### [facility] [address] [address] [address] Raf Pearl Protein [Mass/Vol] 7.1 g/dL Normal 6.4-8.2 [facility] Comment on above: Performed By: #### C MP, LIPID, TSH #### [facility] [address] [place] [address] Dr. Raf Pearl Sodium [Moles/Vol] 140 mmol/L Normal 136-145 [facility] Comment on above: Performed By: #### C MP, LIPID, TSH #### [facility] [address] [place] [address] Dr. Raf Pearl Urea nitrogen [Mass/Vol] 21.0 mg/dL Critically high 7.0-18.0 [facility] Comment on above: Performed By: #### C MP, LIPID, TSH #### [facility] [address] [place] [address] Dr. Raf Pearl Urea nitrogen/Creatinine [Mass ratio] 14.2 mg/mg Normal [facility] Comment on above: Performed By: #### C MP, LIPID, TSH #### [facility] [address] [place] [address] Dr. Raf Pearl TSHon 07-31-2022 TSH 2.298 uIU/mL Normal 0.358-3.740 [facility] Comment on above: Performed By: #### C MP, LIPID, TSH #### [facility] [address] [place] [address] Dr. Raf Pearl UA RANDOM W/MICROSCOPICon BACTERIA NONE SEEN Normal NONE SEEN The [facility] Comment on above: Performed By: #### B MP #### [facility] [address] [place] [address] Dr. Raf Pearl Bilirubin Ql (U) Negative Normal NEGATIVE [facility] Comment on above: Performed By: #### B MP #### [facility] [address] [place] [address] Dr. Raf Pearl CAST NONE SEEN Normal NONE SEEN [facility] Comment on above: Performed By: #### B MP #### [facility] [address] [place] [address] Dr. Raf Pearl Clarity (U) CLEAR Normal CLEAR [facility] Comment on above: Performed By: #### B MP #### [facility] [address] [place] [address] Dr. Raf Pearl Color (U) LT. YELLOW Normal YELLOW The [facility] Comment on above: Performed By: #### B MP #### [facility] [address] [place] [address] Dr. Raf Pearl Crystals LM Nom (Urine sed) NONE SEEN Normal NONE SEEN [facility] Comment on above: Performed By: #### B MP #### [facility] [address] [place] [address] Dr. Raf Pearl Epithelial cells LM Ql (Urine sed) NONE SEEN Normal NONE SEEN /RARE The [facility] Comment on above: Performed By: #### B MP #### [facility] [address] [place] [address] Dr. Raf Pearl Glucose Ql (U) Negative Normal NEGATIVE The [facility] Comment on above: Performed By: #### B MP #### [facility] [address] [place] [address] Dr. Raf Pearl Hemoglobin Ql (U) Negative Normal NEGATIVE The [facility] Comment on above: Performed By: #### B MP #### [facility] [address] [place] [address] Dr. Raf Pearl Ketones Ql (U) Negative Normal NEGATIVE [facility] Comment on above: Performed By: #### B MP #### [facility] [address] [place] [address] Dr. Raf Pearl LEUKOCYTES Negative Normal NEGATIVE The [facility] Comment on above: Performed By: #### B MP #### [facility] [address] [place] [address] Dr. Raf Pearl MUCOUS NONE SEEN Normal NONE SEEN [facility] Comment on above: Performed By: #### B MP #### [facility] [address] [place] [address] Dr. Raf Pearl Nitrite Ql (U) Negative Normal NEGATIVE [facility] Comment on above: Performed By: #### B MP #### [facility] [address] [place] [address] Dr. Raf Pearl pH (U) 7.0 [pH] Normal 5-9 [facility] Comment on above: Performed By: #### B MP #### [facility] [address] [place] [address] Dr. Raf Pearl RBC 0-2 Normal 0-2 [facility] Comment on above: Performed By: #### B MP #### [facility] [address] [place] [address] Dr. Raf Pearl SPEC GRAVITY <=1.005 Abnormal 1.005-<=1.025 [facility] Comment on above: Performed By: #### B MP #### [facility] [address] [place] [address] Dr. Raf Pearl UA PROTEIN Negative Normal NEGATIVE/ TRACE The [facility] Comment on above: Performed By: #### B MP #### [facility] [address] [place] [address] Dr. Raf Pearl Urobilinogen Qn (U) 0.2 {Tawana'U}/dL Normal 0.2 - 1. 0 [facility] Comment on above: Performed By: #### B MP #### [facility] [address] [place] [address] Dr. Raf Pearl WBC NONE SEEN Normal NONE SEEN The [facility] Comment on above: Performed By: #### B MP #### [facility] [address] [place] [address] Dr. Raf Pearl VITAMIN B12on 07-31-2022 Cobalamin (Vitamin B12) [Mass/Vol] 600.0 pg/mL Normal 193.0-986.0 [facility] Comment on above: Performed By: #### B MP #### [facility] [address] [place] [address] Dr. Raf Pearl Covid-19 PCR ([facility])on 04-18 SARS-CoV-2 (COVID-19) RNA KHANH+probe Ql (Unsp spec) Not detected Normal NOT DETECTED The [facility] Comment on above: Result Comment: When diagnostic [...] for this test is supported by the [employer] of Health and Human Service's declaration [...] longer be used). Performed By: #### [facility] #### [facility] [address] [place] [address] Dr. Raf Pearl INFLUENZA A AND B AGon 04-30 [facility] SEE BELOW Normal [facility] Comment on above: Result Comment: Nega tive for Flu A protein angiten. Infection due to Flu A cannot be ruled out. Flu A angiten in the sample may be below the detection limit of the test. Performed By: #### B MP #### [facility] [address] [place] [address] Dr. Raf Pearl [facility] SEE BELOW Normal [facility] Comment on above: Result Comment: Nega tive for Flu B protein antigen. Infection due to Flu B cannot be ruled out. Flu B antigen in the sample may be below the detection limit of the test. Performed By: #### B MP #### [facility] [address] [place] [address] Dr. Raf Pearl INFLUENZA A AG Negative Normal NEGATIVE SEE COMMENT [facility] Comment on above: Performed By: #### B MP #### [facility] [address] [place] [address] Dr. Raf Pearl INFLUENZA B AG Negative Normal NEGATIVE SEE COMMENT [facility] Comment on above: Performed By: #### B MP #### [facility] [address] [place] [address] Dr. Raf Pearl XR CHEST 2 Von [...] BUDDY LEMOS Date: 2022-04-30 19:38 Normal The [facility] PROF CHEM 8 (BAS METB)on Anion gap [Moles/Vol] 12.6 mmol/L Normal Th [facility] Comment on above: Performed By: #### B MP #### [facility] [address] [place] [address] Dr. Raf Pearl Calcium [Mass/Vol] 9.4 mg/dL Normal 8.5-10.1 [facility] Comment on above: Performed By: #### B MP #### [facility] [address] [place] [address] Dr. Raf Pearl Chloride [Moles/Vol] 99 mmol/L Normal 98-107 [facility] Comment on above: Performed By: #### B MP #### [facility] [address] [place] [address] Dr. Raf Pearl CO2 [Moles/Vol] 29.3 mmol/L Normal 21.0-32.0 [facility] Comment on above: Performed By: #### B MP #### [facility] [address] [address] [address] Raf Pearl Creatinine [Mass/Vol] 1.15 mg/dL Critically high 0.55-1.02 [facility] Comment on above: Performed By: #### B MP #### [facility] [address] [address] [address] Raf Pearl EGFR-AF TURKMEN 57 mL/min/1.73m2 Critically low >=60 [facility] Comment on above: Performed By: #### B MP #### [facility] [address] [address] [address] Raf Pearl EGFR-NON AF TURKMEN 47 mL/min/1.73m2 Critically low >=60 [facility] Comment on above: Performed By: #### B MP #### [facility] [address] [address] [address] Raf Pearl Glucose [Mass/Vol] 146 mg/dL Critically high 74-106 [facility] Comment on above: Performed By: #### B MP #### [facility] [address] [address] [address] Raf Pearl Potassium [Moles/Vol] 3.9 mmol/L Normal 3.5-5.1 [facility] Comment on above: Performed By: #### B MP #### [facility] [address] [address] [address] Raf Pearl Sodium [Moles/Vol] 137 mmol/L Normal 136-145 [facility] Comment on above: Performed By: #### B MP #### [facility] [address] [address] [address] Raf Pearl Urea nitrogen [Mass/Vol] 10.0 mg/dL Normal 7.0-18.0 [facility] Comment on above: Performed By: #### B MP #### [facility] [address] [address] [address] Raf Pearl Urea nitrogen/Creatinine [Mass ratio] 8.7 mg/mg Normal [facility] Comment on above: Performed By: #### B MP #### [facility] [address] [address] [address] Raf Pearl CBC AUTO DIFFon 01-22-2022 BASO # 0.1 103/ul Normal 0.0-0.1 [facility] Comment on above: Performed By: #### B MP #### [facility] [address] [place] [address] Dr. Raf Pearl Basophils/100 WBC (Bld) 1.5 % Normal 0.2-2.0 The [facility] Comment on above: Performed By: #### B MP #### [facility] [address] [place] [address] Dr. Raf Pearl EO # 0.3 103/ul Normal 0.0-0.7 [facility] Comment on above: Performed By: #### B MP #### [facility] [address] [place] [address] Dr. Raf Pearl Eosinophils/100 WBC (Bld) 5.3 % Normal 0.9-7.0 The [facility] Comment on above: Performed By: #### B MP #### [facility] [address] [place] [address] Dr. Raf Pearl Erythrocyte distribution width (RBC) [Ratio] 13.1 % Normal 11.0-15.0 [facility] Comment on above: Performed By: #### B MP #### [facility] [address] [place] [address] Dr. Raf Pearl Hematocrit (Bld) [Volume fraction] 36.4 % Normal 36.0-48.0 The [facility] Comment on above: Performed By: #### B MP #### [facility] [address] [place] [address] Dr. Raf Pearl Hemoglobin (Bld) [Mass/Vol] 12.4 g/dL Normal 12.0-16.0 The [facility] Comment on above: Performed By: #### B MP #### [facility] [address] [place] [address] Dr. Raf Pearl IG # 0.02 10e3/ul Normal 0.00-0.03 The [facility] Comment on above: Performed By: #### B MP #### [facility] [address] [place] [address] Dr. Raf Pearl IG % 0.3 % Normal 0.0-0.5 The [facility] Comment on above: Performed By: #### B MP #### [facility] [address] [place] [address] Dr. Raf Pearl LYMPH # 2.0 103/ul Normal 1.2-3.8 The [facility] Comment on above: Performed By: #### B MP #### [facility] [address] [place] [address] Dr. Raf Pearl Lymphocytes/100 WBC (Bld) 31.6 % Normal 20.5-60.0 The [facility] Comment on above: Performed By: #### B MP #### [facility] [address] [place] [address] Dr. Raf Pearl MANUAL DIFF REQ NO Normal [facility] Comment on above: Performed By: #### B MP #### [facility] [address] [place] [address] Dr. Raf Pearl MCH (RBC) [Entitic mass] 31.4 pg Normal 26.7-34.0 [facility] Comment on above: Performed By: #### B MP #### [facility] [address] [place] [address] Dr. Raf Pearl MCHC (RBC) [Mass/Vol] 34.1 g/dL Normal 29.9-35.2 The [facility] Comment on above: Performed By: #### B MP #### [facility] [address] [place] [address] Dr. Raf Pearl MCV (RBC) [Entitic vol] 92.2 fL Normal 81.0-99.0 The [facility] Comment on above: Performed By: #### B MP #### [facility] [address] [place] [address] Dr. Raf Pearl MONO # 0.4 103/ul Normal 0.3-0.8 The [facility] Comment on above: Performed By: #### B MP #### [facility] [address] [place] [address] Dr. Raf Pearl Monocytes/100 WBC (Bld) 6.8 % Normal 1.7-12.0 [facility] Comment on above: Performed By: #### B MP #### [facility] [address] [place] [address] Dr. Raf Pearl NEUT # 3.4 103/ul Normal 1.4-6.5 [facility] Comment on above: Performed By: #### B MP #### [facility] [address] [place] [address] Dr. Raf Pearl Neutrophils/100 WBC (Bld) 54.5 % Normal 43.0-75.0 [facility] Comment on above: Performed By: #### B MP #### [facility] [address] [place] [address] Dr. Raf Pearl Platelet mean volume (Bld) [Entitic vol] 9.7 fL Normal 9.5-13.5 [facility] Comment on above: Performed By: #### B MP #### [facility] [address] [place] [address] Dr. Raf Pearl PLT 384 103/ul Normal 150-450 The [facility] Comment on above: Performed By: #### B MP #### [facility] [address] [place] [address] Dr. Raf Pearl RBC 3.95 106/ul Critically low 4.20-5.40 [facility] Comment on above: Performed By: #### B MP #### [facility] [address] [place] [address] Dr. Raf Pearl WBC 6.2 103/ul Normal 4.0-11.0 [facility] Comment on above: Performed By: #### B MP #### [facility] [address] [place] [address] Dr. Raf Pearl GLYCOHEMOGLOBIN A1Con 2021 ADA RECOMMENDATION SEE BELOW Normal [facility] Comment on above: Result Comment: ADA RECOMMENDED LIMIT 4.0 - 6.0 ADA THERAPEUTIC TARGET < 7.0 ACTION SUGGESTED > 7.0 Performed By: #### A 1C #### [facility] [address] [address] [address] Raf Pearl Glucose [Mass/Vol] 137 mg/dL Normal [facility] Comment on above: Performed By: #### A 1C #### [facility] [address] [address] [address] Raf Pearl HbA1c (Bld) [Mass fraction] 6.4 % Critically high 4.5-6.2 [facility] Comment on above: Performed By: #### A 1C #### [facility] [address] [address] [address] Raf Pearl LIPID PROFILEon 01-22-2022 CHOL-HDL RATIO NORM SEE BELOW Normal [facility] Comment on above: Result Comment: 3.3 - 4.4 LOW RISK 4.4 - 7.1 AVERAGE RISK 7.1 - 11.0 MODERATE RISK >11.0 HIGH RISK Performed By: #### B MP #### [facility] [address] [place] [address] Dr. Raf Pearl Cholesterol [Mass/Vol] 165 mg/dL Normal <=200 [facility] Comment on above: Performed By: #### B MP #### [facility] [address] [address] [address] Raf Pearl Cholesterol in HDL [Mass/Vol] 66 mg/dL Critically high 40-60 [facility] Comment on above: Performed By: #### B MP #### [facility] [address] [address] [address] Raf Pearl Cholesterol in LDL [Mass/Vol] 87.8 mg/dL Normal [facility] Comment on above: Performed By: #### B MP #### [facility] [address] [address] [address] Raf Pearl Cholesterol.total/Cho lesterol in HDL [Mass ratio] 2.5 {ratio} Normal [facility] Comment on above: Performed By: #### B MP #### [facility] [address] [address] [address] Raf Pearl HDL NORMAL > or = 60 mg/dl - LOW CARDIOVASCULAR RISK <40 mg/dl - HIGH CARDIOVASCULAR RISK Normal [facility] Comment on above: Performed By: #### B MP #### [facility] [address] [address] [address] Raf Pearl LDL CALC NORMAL SEE BELOW Normal [facility] Comment on above: Result Comment: <100 mg/dl OPTIMAL 100 - 129 mg/dl NEAR OR ABOVE OPTIMAL 130 - 159 mg/dl BORDERLINE HIGH 160 - 189 mg/dl HIGH >190 mg/dl VERY HIGH Performed By: #### B MP #### [facility] [address] [address] [address] Raf Pearl Triglyceride [Mass/Vol] 56 mg/dL Normal <=150 [facility] Comment on above: Performed By: #### B MP #### [facility] [address] [address] [address] Raf Pearl VLDL CALC 11.2 mg/dL Normal [facility] Comment on above: Performed By: #### B MP #### [facility] [address] [place] [address] Dr. Raf Pearl PROF 14(COMP METB)on 022 Albumin [Mass/Vol] 4.0 g/dL Normal 3.4-5.0 [facility] Comment on above: Performed By: #### B MP #### [facility] [address] [place] [address] Dr. Raf Pearl Albumin/Globulin [Mass ratio] 1.1 {ratio} Normal [facility] Comment on above: Performed By: #### B MP #### [facility] [address] [address] [address] Raf Pearl ALP [Catalytic activity/Vol] 81 U/L Normal 46-116 [facility] Comment on above: Performed By: #### B MP #### [facility] [address] [place] [address] Dr. Raf Pearl ALT [Catalytic activity/Vol] 26 U/L Normal 14-59 [facility] Comment on above: Performed By: #### B MP #### [facility] [address] [place] [address] Dr. Raf Pearl Anion gap [Moles/Vol] 12.1 mmol/L Normal [facility] Comment on above: Performed By: #### B MP #### [facility] [address] [address] [address] Raf Pearl AST [Catalytic activity/Vol] 16 U/L Normal 15-37 [facility] Comment on above: Performed By: #### B MP #### [facility] [address] [address] [address] Raf Pearl Bilirubin [Mass/Vol] 0.3 mg/dL Normal 0.2-1.0 [facility] Comment on above: Performed By: #### B MP #### [facility] [address] [address] [address] Raf Pearl Calcium [Mass/Vol] 9.2 mg/dL Normal 8.5-10.1 [facility] Comment on above: Performed By: #### B MP #### [facility] [address] [address] [address] Raf Pearl Chloride [Moles/Vol] 103 mmol/L Normal 98-107 [facility] Comment on above: Performed By: #### B MP #### [facility] [address] [address] [address] Raf Pearl CO2 [Moles/Vol] 26.9 mmol/L Normal 21.0-32.0 [facility] Comment on above: Performed By: #### B MP #### [facility] [address] [address] [address] Raf Pearl Creatinine [Mass/Vol] 1.17 mg/dL Critically high 0.55-1.02 [facility] Comment on above: Performed By: #### B MP #### [facility] [address] [address] [address] Raf Pearl EGFR-AF TURKMEN 56 mL/min/1.73m2 Critically low >=60 [facility] Comment on above: Performed By: #### B MP #### [facility] [address] [address] [address] Raf Pearl EGFR-NON AF TURKMEN 46 mL/min/1.73m2 Critically low >=60 [facility] Comment on above: Performed By: #### B MP #### [facility] [address] [address] [address] Raf Pearl Globulin (S) [Mass/Vol] 3.6 g/dL Normal [facility] Comment on above: Performed By: #### B MP #### [facility] [address] [address] [address] Raf Pearl Glucose [Mass/Vol] 141 mg/dL Critically high 74-106 [facility] Comment on above: Performed By: #### B MP #### [facility] [address] [address] [address] Raf Pearl Potassium [Moles/Vol] 4.0 mmol/L Normal 3.5-5.1 [facility] Comment on above: Performed By: #### B MP #### [facility] [address] [address] [address] Raf Pearl Protein [Mass/Vol] 7.6 g/dL Normal 6.4-8.2 [facility] Comment on above: Performed By: #### B MP #### [facility] [address] [address] [address] Raf Pearl Sodium [Moles/Vol] 138 mmol/L Normal 136-145 [facility] Comment on above: Performed By: #### B MP #### [facility] [address] [address] [address] Raf Pearl Urea nitrogen [Mass/Vol] 19.0 mg/dL Critically high 7.0-18.0 [facility] Comment on above: Performed By: #### B MP #### [facility] [address] [address] [address] Raf Pearl Urea nitrogen/Creatinine [Mass ratio] 16.2 mg/mg Normal [facility] Comment on above: Performed By: #### B MP #### [facility] [address] [address] [address] Raf Pearl VIT B12 AND FOLATEon 022 Cobalamin (Vitamin B12) [Mass/Vol] 786.0 pg/mL Normal 193.0-986.0 [facility] Comment on above: Performed By: #### B 12FOL #### [facility] [address] [place], [place] [address] Dr. Raf Pearl FOLATE 21.80 ng/mL Normal 8.60-58.90 [facility] Comment on above: Performed By: #### B 12FOL #### [facility] [address] [place], [place] [address] Dr. 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 Electronically signed by:Jeffrey Miles. 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 [address], [facility] Glucose [Mass/Vol] 98 mg/dL Normal 70-100 [facility] Comment on above: Performed By: #### 5 6101, 81091 #### [facility] [address] [place] [address], [facility] BASIC METABOLIC PANELon 05-0 Calcium [Mass/Vol] 7.7 mg/dL Low 8.6-10.3 [facility] Comment on above: Order Comment: No: D o not add to previous draw Performed By: #### 5 0103 #### [facility] [address] [place] [address], [facility] Chloride [Moles/Vol] 109 mmol/L High 98-107 [facility] Comment on above: Order Comment: No: D o not add to previous draw Performed By: #### 5 0103 #### [facility] [address] [place] [address], [facility] CO2 [Moles/Vol] 24 mmol/L Normal 21-31 The [facility] Comment on above: Order Comment: No: D o not add to previous draw Performed By: #### 5 0103 #### [facility] [address] [place] [address], [facility] Creatinine [Mass/Vol] 0.89 mg/dL Normal 0.60-1.20 [facility] Comment on above: Order Comment: No: D o not add to previous draw Performed By: #### 5 0103 #### [facility] [address] [place] [address], [place] GFR/1.73 sq M predicted among blacks MDRD (S/P/Bld) [Vol rate/Area] mL/min/{1.73_m2} Normal >60 [facility] Comment on above: Order Comment: No: D o not add to previous draw Performed By: #### 5 0103 #### [facility] [address] [place] [address], [facility] GFR/1.73 sq M predicted among non-blacks MDRD (S/P/Bld) [Vol rate/Area] mL/min/{1.73_m2} Normal >60 [facility] Comment on above: Order Comment: No: D o not add to previous draw Performed By: #### 5 0103 #### [facility] [address] [address], [facility] Glucose [Mass/Vol] 94 mg/dL Normal 70-100 The [facility] Comment on above: Order Comment: No: D o not add to previous draw Performed By: #### 5 0103 #### [facility] [address] [place] [address], [facility] Potassium [Moles/Vol] 3.3 mmol/L Low 3.5-5.1 [facility] Comment on above: Order Comment: No: D o not add to previous draw Performed By: #### 5 0103 #### [facility] [address] [place] [address], [facility] Sodium [Moles/Vol] 140 mmol/L Normal 136-145 The [facility] Comment on above: Order Comment: No: D o not add to previous draw Performed By: #### 5 0103 #### [facility] [address] [facility] [place] [address], [facility] Urea nitrogen [Mass/Vol] 11 mg/dL Normal 7-25 [facility] Comment on above: Order Comment: No: D o not add to previous draw Performed By: #### 5 0103 #### [facility] [address] [facility] [address], [facility] CBC W/DIFFon 08-24-2018 ABS BASOPHILS 0.0 10*3/uL Normal 0.0-0.2 The [facility] Comment on above: Order Comment: No: D o not add to previous draw Performed By: #### 5 0103 #### [facility] [address] [place] [address], [facility] ABS IMM GRANS 0.1 10*3/uL Normal 0.0-0.2 The [facility] Comment on above: Order Comment: No: D o not add to previous draw Performed By: #### 5 0103 #### [facility] [address] [place] [id number], [facility] ABS NEUTROPHILS 12.5 10*3/uL High 1.6-7.6 The [facility] Comment on above: Order Comment: No: D o not add to previous draw Performed By: #### 5 0103 #### [facility] [address] [place] [address], [facility] Basophils/100 WBC (Bld) 0.3 % Normal 0.0-1.0 The [facility] Comment on above: Order Comment: No: D o not add to previous draw Performed By: #### 5 0103 #### [facility] [address] [place] [address], [facility] Eosinophils (Bld) [#/Vol] 0.0 10*3/uL Normal 0.0-0.5 [facility] Comment on above: Order Comment: No: D o not add to previous draw Performed By: #### 5 0103 #### [facility] [address] [place] [id number], [facility] Eosinophils/100 WBC (Bld) 0.0 % Normal 0.0-6.0 [facility] Comment on above: Order Comment: No: D o not add to previous draw Performed By: #### 5 0103 #### [facility] [address] [place] [id number], [facility] Erythrocyte distribution width (RBC) [Ratio] 13.0 % Normal 11.5-15.0 [facility] Comment on above: Order Comment: No: D o not add to previous draw Performed By: #### 5 0103 #### [facility] [address] [place] [address], [facility] Hematocrit (Bld) [Volume fraction] 31.7 % Low 36.0-45.0 [facility] Comment on above: Order Comment: No: D o not add to previous draw Performed By: #### 5 0103 #### [facility] [address] [place] [address], [facility] Hemoglobin (Bld) [Mass/Vol] 10.3 g/dL Low 12.0-15.0 [facility] Comment on above: Order Comment: No: D o not add to previous draw Performed By: #### 5 0103 #### [facility] [address] [place] [address], [facility] IMMATURE GRANS 0.5 % Normal 0.0-1.0 The [facility] Comment on above: Order Comment: No: D o not add to previous draw Performed By: #### 5 0103 #### [facility] [address] [place] [address], [facility] Lymphocytes (Bld) [#/Vol] 1.9 10*3/uL Normal 1.2-4.0 The [facility] Comment on above: Order Comment: No: D o not add to previous draw Performed By: #### 5 0103 #### [facility] [address] [facility] [place] [address], [facility] Lymphocytes/100 WBC (Bld) 11.9 % Low 20.0-45.0 [facility] Comment on above: Order Comment: No: D o not add to previous draw Performed By: #### 5 0103 #### [facility] [address] [place] [id number], [facility] MCH (RBC) [Entitic mass] 31.7 pg Normal 27.0-33.0 [facility] Comment on above: Order Comment: No: D o not add to previous draw Performed By: #### 5 0103 #### [facility] [address] [place] [address], [facility] MCHC (RBC) [Mass/Vol] 32.5 g/dL Normal 32.0-35.0 [facility] Comment on above: Order Comment: No: D o not add to previous draw Performed By: #### 5 0103 #### [facility] [address] [place] [id number], [facility] MCV (RBC) [Entitic vol] 97.5 fL Normal 82.0-98.0 [facility] Comment on above: Order Comment: No: D o not add to previous draw Performed By: #### 5 0103 #### [facility] [address] [place] [address], [facility] Monocytes (Bld) [#/Vol] 1.2 10*3/uL High 0.1-1.0 [facility] Comment on above: Order Comment: No: D o not add to previous draw Performed By: #### 5 0103 #### [facility] [address] [place] [address], [facility] MONOS 7.7 % Normal 5.0-12.0 [facility] Comment on above: Order Comment: No: D o not add to previous draw Performed By: #### 5 0103 #### [facility] [address] [place] [address], [facility] Neutrophils/100 WBC (Bld) 79.6 % High 40.0-72.0 [facility] Comment on above: Order Comment: No: D o not add to previous draw Performed By: #### 5 0103 #### [facility] [address] [place] [address], [facility] Nucleated RBC/100 WBC (Bld) [Ratio] 0 % Normal 0-0 [facility] Comment on above: Order Comment: No: D o not add to previous draw Performed By: #### 5 0103 #### [facility] [address] [place] [address], [facility] PLAT CNT 263 10*3/uL Normal 150-400 The [facility] Comment on above: Order Comment: No: D o not add to previous draw Performed By: #### 5 0103 #### [facility] [address] [place] [address], [facility] RBC (Bld) [#/Vol] 3.25 10*6/uL Low 3.80-5.00 The [facility] Comment on above: Order Comment: No: D o not add to previous draw Performed By: #### 5 0103 #### [facility] [address] [facility] [address], [facility] WBC (Bld) [#/Vol] 15.70 10*3/uL High 4.00-10.60 [facility] Comment on above: Order Comment: No: D o not add to previous draw Performed By: #### 5 0103 #### [facility] [address] [facility] LIPID PROFILEon 08-24-2018 Cholesterol [Mass/Vol] 128 mg/dL Normal 120-200 [facility] Comment on above: Order Comment: No: D o not add to previous draw Result Comment: CHOL ESTEROL REFERENCE RANGE: 20 YEARS AND OLDER CARDIOVASCULAR RISK Less than 200 mg/dl Low Risk 200 to 239 mg/dl Borderline Risk 240 mg/dl and greater High Risk Performed By: #### 5 0103 #### [facility] [address] [facility] Cholesterol in HDL [Mass/Vol] 49 mg/dL Normal 23-92 [facility] Comment on above: Order Comment: No: D [facility] [address] Cholesterol in LDL [Mass/Vol] 65 mg/dL Normal 0-130 [facility] Comment on above: Order Comment: No: D o not add to previous draw Result Comment: LDL IS A CALCULATION LDL IS ONLY VALID IF THE TRIG IS LESS THAN 400. Performed By: #### 5 0103 #### [facility] [address] [place] [address], [facility] Cholesterol.total/Cho lesterol in HDL [Mass ratio] 2.6 {ratio} Normal .0-4.5 [facility] Comment on above: Order Comment: No: D o not add to previous draw Performed By: #### 5 0103 #### [facility] [address] NON-HDL CHOLESTEROL 79 mg/dL Normal [facility] Comment on above: Order Comment: No: D o not add to previous draw Performed By: #### 5 0103 #### [facility] [address] [facility] Triglyceride [Mass/Vol] 69 mg/dL Normal 40-149 [facility] Comment on above: Order Comment: No: D o not add to previous draw Result Comment: TRIG LYCERIDE REFERENCE RANGE: 20 YEARS AND OLDER CARDIOVASCULAR RISK LESS THAN 150 mg/dl LOW RISK 150 TO 199 mg/dl BORDERLINE RISK 200 mg/dl AND GREATER HIGH RISK Performed By: #### 5 0103 #### [facility] [address] [facility] [address], [facility] VLDL CHOL 14 mg/dL Normal 0-40 [facility] Comment on above: Order Comment: No: D o not add to previous draw Performed By: #### 5 0103 #### [facility] [address] [facility] [address], [facility] POC GLUCOSE LABon 08-24-2018 Glucose [Mass/Vol] 162 mg/dL High 70-100 The [facility] Comment on above: Performed By: #### 5 610, [id number] #### [facility] [address] [place] [address], [place] Glucose [Mass/Vol] 146 mg/dL High 70-100 The [facility] Comment on above: Performed By: #### 5 610, 04758 #### [facility] [address] [place] [address], [place] Glucose [Mass/Vol] 213 mg/dL High 70-100 [facility] Comment on above: Performed By: #### 5 610, [address]201 #### [facility] [address] [place] [address], [place] Glucose [Mass/Vol] 81 mg/dL Normal 70-100 The [facility] Comment on above: Performed By: #### 5 610, 38412 #### [facility] [address] [place] [address], [place] BASIC METABOLIC PANELon 05-0 Calcium [Mass/Vol] 8.4 mg/dL Low 8.6-10.3 The [facility] Comment on above: Order Comment: Yes: Add to Previous draw if able Performed By: #### 5 0103 #### [facility] [address] [place] [address], [place] Chloride [Moles/Vol] 103 mmol/L Normal 98-107 [facility] Comment on above: Order Comment: Yes: Add to Previous draw if able Performed By: #### 5 0103 #### [facility] [address] [place] [address], [place] CO2 [Moles/Vol] 26 mmol/L Normal 21-31 The [facility] Comment on above: Order Comment: Yes: Add to Previous draw if able Performed By: #### 5 0103 #### [facility] [address] [place] [address], [place] Creatinine [Mass/Vol] 1.03 mg/dL Normal 0.60-1.[address] [facility] Comment on above: Order Comment: Yes: Add to Previous draw if able Performed By: #### 5 0103 #### [facility] [address] [place] [address], [place] GFR/1.73 sq M predicted among blacks MDRD (S/P/Bld) [Vol rate/Area] mL/min/{1.73_m2} Normal >60 The [facility] Comment on above: Order Comment: Yes: Add to Previous draw if able Performed By: #### 5 3 #### [facility] [address] [place] [address], [place] GFR/1.73 sq M predicted among non-blacks MDRD (S/P/Bld) [Vol rate/Area] 54 ml/min/1.73sq m Abnormal >60 The [facility] Comment on above: Order Comment: Yes: Add to Previous draw if able Performed By: #### 5 0103 #### [facility] [address] [place] [address], [place] Glucose [Mass/Vol] 209 mg/dL High 70-100 The [facility] Comment on above: Order Comment: Yes: Add to Previous draw if able Performed By: #### 5 0103 #### [facility] [address] [place] [address], [place] Potassium [Moles/Vol] 3.9 mmol/L Normal 3.5-5.1 The [facility] Comment on above: Order Comment: Yes: Add to Previous draw if able Performed By: #### 5 3 #### [facility] [address] [place] [address], [place] Sodium [Moles/Vol] 135 mmol/L Low 136-145 The [facility] Comment on above: Order Comment: Yes: Add to Previous draw if able Performed By: #### 5 3 #### [facility] [address] [place] [address], [place] Urea nitrogen [Mass/Vol] 16 mg/dL Normal 7-25 The [facility] Comment on above: Order Comment: Yes: Add to Previous draw if able Performed By: #### 5 0103 #### [facility] [address] [place] [address], [facility] CBC COMPLETE BLOOD COUNTon 0 - Erythrocyte distribution width (RBC) [Ratio] 12.8 % Normal 11.5-15.0 The [facility] Comment on above: Order Comment: Yes: Add to Previous draw if able Performed By: #### 5 3 #### [facility] [address] Hematocrit (Bld) [Volume fraction] 35.0 % Low 36.0-45.0 The [facility] Comment on above: Order Comment: Yes: Add to Previous draw if able Performed By: #### 3 #### [facility] [address] Hemoglobin (Bld) [Mass/Vol] 11.2 g/dL Low 12.0-15.0 The [facility] Comment on above: Order Comment: Yes: Add to Previous draw if able Performed By: #### 5 0103 #### [facility] [address] [place] [address], [facility] MCH (RBC) [Entitic mass] 31.5 pg Normal 27.0-33.0 The [facility] Comment on above: Order Comment: Yes: Add to Previous draw if able Performed By: #### 5 0103 #### [facility] [address] [place] [id number], [facility] MCHC (RBC) [Mass/Vol] 32.0 g/dL Normal 32.0-35.0 The [facility] Comment on above: Order Comment: Yes: Add to Previous draw if able Performed By: #### 5 0103 #### [facility] [address] [place] [address], [facility] MCV (RBC) [Entitic vol] 98.3 fL High 82.0-98.0 The [facility] Comment on above: Order Comment: Yes: Add to Previous draw if able Performed By: #### 5 0103 #### [facility] [address] [place] [address], [facility] Nucleated RBC/100 WBC (Bld) [Ratio] 0 % Normal 0-0 The [facility] Comment on above: Order Comment: Yes: Add to Previous draw if able Performed By: #### 5 010 #### [facility] [address] [facility] [address], [facility] PLAT CNT 276 10*3/uL Normal 150-400 The [facility] Comment on above: Order Comment: Yes: Add to Previous draw if able Performed By: #### 5 102 #### [facility] [address] [facility] [address], [facility] RBC (Bld) [#/Vol] 3.56 10*6/uL Low 3.80-5.00 The [facility] Comment on above: Order Comment: Yes: Add to Previous draw if able Performed By: #### 5 3 #### [facility] [address] [facility] [address], [facility] WBC (Bld) [#/Vol] 14.61 10*3/uL High 4.00-10.60 The [facility] Comment on above: Order Comment: Yes: Add to Previous draw if able Performed By: #### 5 102 #### [facility] [address] [place], [place] [id number] [place] [address] CERVICAL SPINE 2 OR 3 [facility] 08-23-2018 CERVICAL SPINE 2 OR 3 [facility] Department of Radiology [address] [place] [id number] Patient Name: CRISELDA MORFIN : 1955 [...] C6. Electronically signed by:Xiomara Nath. Transcribed by: [email or web address], User Resident: Electronically Signed by: XIOMARA NATH @ 08/23/2018 04:07 PM Normal The [facility] Comment on above: Order Comment: C4-C5 , C5-C6 ANTERIOR CERVICAL DISCECTOMY WITH FUSION Operative Reporton 9 Operative Report MR#: [id number] S [facility] Pt. Name: Criselda Morfin Room #: 0C Discharge Date: Birthdate: 1955 OPERATIVE REPORT DATE OF SURGERY: 08/23/2018 SURGEON: Demetris Askew M.D. 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 POSTOPERATIVE DIAGNOSIS: Herniated cervical disk and spinal stenosis from C4 through C6. COAL SHOVELER: ELIDIA Castle. ANESTHESIA: Endotracheal, Dr. Falcon. PROCEDURE: [...] size 8 at C5-6. The plate was [place], size 35 mm. The screws were 6, [...] Askew M.D. Date Trans: 08/23/2018 01:26 P/kari [id number] Normal The [facility] POC GLUCOSE LABon 08-23-2018 Glucose [Mass/Vol] 157 mg/dL High 70-100 The [facility] Comment on above: Performed By: #### 5 0103 #### [facility] [address] [facility] [place] [address], [place] Glucose [Mass/Vol] 190 mg/dL High 70-100 The [facility] Comment on above: Performed By: #### 5 0103 #### [facility] [address] [facility] [address] Glucose [Mass/Vol] 182 mg/dL High 70-100 The [facility] Comment on above: Performed By: #### 5 0103 #### [facility] [address] [facility] Glucose [Mass/Vol] 94 mg/dL Normal 70-100 The [facility] Comment on above: Performed By: #### 5 0103 #### [facility] [address] [facility] *MRSA/MSSA DNA NASALon 08-08 *MRSA/MSSA DNA NASAL Clinical Report: (D ) Specimen: NASAL SWAB Collected: 08/08/2018 15:04 Status: Final Last Updated: 08/08/2018 20:45 MSSA DNA (Final) Negative MRSA DNA (Final) Negative Normal [facility] Comment on above: Performed By: #### 3 1595 #### [facility] [address] [facility] *URINE CULTUREon 08-08-2018 Bacteria identified Cx [...] CEFAZOLIN (CZ) 2 Susceptible 4 Susceptible CEFTRIAXONE (STRIP FEEDER) <=0.5 Susceptible <=0.5 Susceptible CIPROFLOXACIN (CIP) <=0.5 Susceptible <=0.5 Susceptible GENTAMICIN (GM) 1 Susceptible 4 Susceptible MEROPENEM (MEM) <=0.125 Susceptible NITROFURANTOIN (FT) 32 Susceptible >64 Resistant PIP/TAZO (TZP) 4/4 Susceptible PIP/TAZO (TZP) <=2/4 Susceptible TOBRAMYCIN (TOB) 1 Susceptible 2 Susceptible TRIMETH/SULFA (SXT) <=0.5/9.5 Susceptible <=0.5/9.5 Susceptible Antibiotic Summary Grid: AMS AM AZM CZ STRIP FEEDER CIP GM MEM FT TZP TOB Citrobacter S R S S S S S S S S S amalonaticus complex Proteus mirabilis S S S S S S S R S S SXT Citrobacter S amalonaticus complex Proteus mirabilis S Normal The [facility] Comment on above: Performed By: #### 3 0339 #### [facility] [address] APTTon 08-08-2018 aPTT Coag (Bld) [Time] 28.0 s Normal 25.0-35.0 [facility] Comment on above: Result Comment: ALL [...] THIS PURPOSE. Performed By: #### 5 6101, [id number] #### [facility] [address] BASIC METABOLIC PANELon 07-18 Calcium [Mass/Vol] 9.6 mg/dL Normal 8.6-10.3 The [facility] Comment on above: Performed By: #### 0 0071 #### [facility] [address] Chloride [Moles/Vol] 103 mmol/L Normal 98-107 [facility] Comment on above: Performed By: #### 0 0071 #### [facility] [address] [place] [address], [place] CO2 [Moles/Vol] 30 mmol/L Normal 21-31 [facility] Comment on above: Performed By: #### 0 0071 #### [facility] [address] [place] [address], [place] Creatinine [Mass/Vol] 1.07 mg/dL Normal 0.60-1.20 The [facility] Comment on above: Performed By: #### 0 0071 #### [facility] [address] [place] [address], [place] GFR/1.73 sq M predicted among blacks MDRD (S/P/Bld) [Vol rate/Area] mL/min/{1.73_m2} Normal >60 The [facility] Comment on above: Performed By: #### 0 0071 #### [facility] [address] [place] [address], [place] GFR/1.73 sq M predicted among non-blacks MDRD (S/P/Bld) [Vol rate/Area] 52 ml/min/1.73sq m Abnormal >60 The [facility] Comment on above: Performed By: #### 0 0071 #### [facility] [address] [place] [address], [place] Glucose [Mass/Vol] 93 mg/dL Normal 70-100 The [facility] Comment on above: Performed By: #### 0 0071 #### [facility] [address] [place] [address], [place] Potassium [Moles/Vol] 4.2 mmol/L Normal 3.5-5.1 [facility] Comment on above: Performed By: #### 0 0071 #### [facility] [address] [place] [address], [place] Sodium [Moles/Vol] 139 mmol/L Normal 136-145 The [facility] Comment on above: Performed By: #### 0 0071 #### [facility] [address] Urea nitrogen [Mass/Vol] 18 mg/dL Normal 7-25 [facility] Comment on above: Performed By: #### 0 0071 #### [facility] [address] [place] [address], [facility] CBC W/DIFFon 08-08-2018 ABS BASOPHILS 0.1 10*3/uL Normal 0.0-0.2 The [facility] Comment on above: Performed By: #### 5 0103 #### [facility] [address] ABS IMM GRANS 0.0 10*3/uL Normal 0.0-0.2 The [facility] Comment on above: Performed By: #### 5 0103 #### [facility] [address] ABS NEUTROPHILS 5.0 10*3/uL Normal 1.6-7.6 The [facility] Comment on above: Performed By: #### 5 3 #### [facility] [address] Basophils/100 WBC (Bld) 0.9 % Normal 0.0-1.0 The [facility] Comment on above: Performed By: #### 5 3 #### [facility] [address] Eosinophils (Bld) [#/Vol] 0.2 10*3/uL Normal 0.0-0.5 [facility] Comment on above: Performed By: #### 5 102 #### [facility] [address] [place] [address], [facility] Eosinophils/100 WBC (Bld) 1.8 % Normal 0.0-6.0 The [facility] Comment on above: Performed By: #### 5 0103 #### [facility] [address] Erythrocyte distribution width (RBC) [Ratio] 13.1 % Normal 11.5-15.0 [facility] Comment on above: Performed By: #### 5 0103 #### [facility] [address] [place] [address], [facility] Hematocrit (Bld) [Volume fraction] 37.2 % Normal 36.0-45.0 The [facility] Comment on above: Performed By: #### 5 0103 #### [facility] [address] [facility] [address] Hemoglobin (Bld) [Mass/Vol] 12.3 g/dL Normal 12.0-15.0 [facility] Comment on above: Performed By: #### 5 0103 #### [facility] [address] [facility] [address] IMMATURE GRANS 0.5 % Normal 0.0-1.0 The [facility] Comment on above: Performed By: #### 5 0103 #### [facility] [address] Lymphocytes (Bld) [#/Vol] 2.2 10*3/uL Normal 1.2-4.0 The [facility] Comment on above: Performed By: #### 5 0103 #### [facility] [address] [facility] [address] Lymphocytes/100 WBC (Bld) 26.5 % Normal 20.0-45.0 [facility] Comment on above: Performed By: #### 5 3 #### [facility] [address] [place] [address], [facility] MCH (RBC) [Entitic mass] 31.4 pg Normal 27.0-33.0 [facility] Comment on above: Performed By: #### 5 0103 #### [facility] [address] [place] [address], [facility] MCHC (RBC) [Mass/Vol] 33.1 g/dL Normal 32.0-35.0 [facility] Comment on above: Performed By: #### 5 3 #### [facility] [address] [facility] [place] [address], [facility] MCV (RBC) [Entitic vol] 94.9 fL Normal 82.0-98.0 [facility] Comment on above: Performed By: #### 5 3 #### [facility] [address] [facility] [address], [facility] Monocytes (Bld) [#/Vol] 0.7 10*3/uL Normal 0.1-1.0 The [facility] Comment on above: Performed By: #### 5 102 #### [facility] [address] [facility] [place] [address], [facility] MONOS 8.3 % Normal 5.0-12.0 The [facility] Comment on above: Performed By: #### 5 3 #### [facility] [address] [facility] [address], [facility] Neutrophils/100 WBC (Bld) 62.0 % Normal 40.0-72.0 [facility] Comment on above: Performed By: #### 5 3 #### [facility] [address] [facility] [address], [facility] Nucleated RBC/100 WBC (Bld) [Ratio] 0 % Normal 0-0 [facility] Comment on above: Performed By: #### 5 3 #### [facility] [address] [place] [address], [facility] PLAT CNT 325 10*3/uL Normal 150-400 The [facility] Comment on above: Performed By: #### 5 102 #### [id number] [place] [address] RBC (Bld) [#/Vol] 3.92 10*6/uL Normal 3.80-5.00 The [facility] Comment on above: Performed By: #### 5 0103 #### [facility] [address] [place] [address], [facility] WBC (Bld) [#/Vol] 8.12 10*3/uL Normal 4.00-10.60 The [facility] Comment on above: Performed By: #### 5 0103 #### [id number] [place] [address] CERVICAL SPINE 4 OR 5 VIEWSo n 08-08-2018 CERVICAL SPINE 4 OR 5 VIEWS [facility] Department of Radiology [address] [place] [phone] Patient Name: CRISELDA MORFIN : 1955 Sex: F Age: Race: White Pt. Location: Patient Status: O Ordered Date: 08/08/2018 2:25:00 PM Completed Date: 08/08/2018 02:48 PM Requesting Provider: DEMETRIS ASKEW Attending Provider: DEMETRIS ASKEW Report Copy To: DEMETRIS ASKEW Signs & Symptoms: M48.02 Spinal stenosis, cervical region I10 History: Sharon Comments: , POST OP XRAY AP/LAT ONLY [...] level Electronically signed by:Xiomara Nath. Transcribed by: [email or web address], User Resident: Electronically Signed by: XIOMARA NATH @ 08/08/2018 03:24 PM Normal The [facility] Comment on above: Order Comment: , POS T OP XRAY AP/LAT ONLY , POST OP XRAY AP/LAT ONLY , , , Ordering Provider - DEMETRIS ASKEW MD , HEMOGLOBIN A1Con 08-08-2018 HbA1c (Bld) [Mass fraction] 154 mg/dL High 70-126 [facility] Comment on above: Performed By: #### 4 6447 #### [address] [place] [address], [facility] HbA1c (Bld) [Mass fraction] 7.0 % High 4.0-6.0 [facility] Comment on above: Performed By: #### 4 6447 #### [facility] [address] PROTHROMBIN TIMEon 9 INR Coag (PPP) [Relative time] 0.93 {INR} Normal 0.91-1.16 [facility] Comment on above: Result Comment: ACCC P [...] CHEST 1995;[id number]. Performed By: #### 5 6101, [id number] #### [facility] [address] PT Coag (PPP) [Time] 12.5 s Normal 12.3-14.8 [facility] Comment on above: Result Comment: ALL RESULTS MUST BE INTERPRETED WITH RESPECT TO BLOOD DRAWING ARTIFACT OR DILUTION ERROR OF ANTICOAGULANT AT THE TIME OF SAMPLING. Performed By: #### 5 6101, [id number] #### [facility] [address] [place] [address], [facility] TYPE AND CROSSMATCHon 2018 ABO INTERPRETATION O Normal [facility] Comment on above: Performed By: #### 6 2594 #### [facility] [address] [place] [address], [place] RH INTERPRETATION Positive Normal The [facility] Comment on above: Performed By: #### 6 2594 #### [facility] [address] [place] [address], [place] URINALYSIS REFLEXon 08-09-19 19 Appearance (U) CLEAR Normal CLEAR The [facility] Comment on above: Performed By: #### 3 0965 #### [facility] [address] [place] [address], [place] Bilirubin [Mass/Vol] Negative Normal NEGATIVE The [facility] Comment on above: Performed By: #### 3 0965 #### [facility] [address] [place] [address], [place] BLOOD Negative Normal NEGATIVE The [facility] Comment on above: Performed By: #### 3 0965 #### [facility] [address] [place] [address], [place] Color (U) STRAW Abnormal YELLOW [facility] Comment on above: Performed By: #### 3 0965 #### [facility] [address] [place] [address], [place] EPIS NONE SEEN Normal FEW,OCC,NONE SEEN The [facility] Comment on above: Performed By: #### 3 0965 #### [facility] [address] [place] [address], [place] Glucose [Mass/Vol] Negative Normal NEGATIVE [facility] Comment on above: Performed By: #### 3 0965 #### [facility] [address] [place] [address], [place] KETONE Negative Normal NEGATIVE The [facility] Comment on above: Performed By: #### 3 0965 #### [facility] [address] [place] [address], [place] LEUK ALVARADO TRACE Abnormal NEGATIVE The [facility] Comment on above: Performed By: #### 3 0965 #### [facility] [address] [place] [address], [facility] Nitrite Ql (U) Negative Normal NEGATIVE The [facility] Comment on above: Performed By: #### 3 0965 #### [facility] [address] [place] [address], [facility] pH (Bld) 6.0 Normal 5.0-8.0 The [facility] Comment on above: Performed By: #### 3 0965 #### [facility] [address] [facility] [address], [facility] Protein (U) [Mass/Vol] Negative Normal NEGATIVE The [facility] Comment on above: Performed By: #### 3 0965 #### [facility] [address] [facility] [address], [facility] RBC (U) [#/Vol] 0-2 Abnormal NONE SEEN The [facility] Comment on above: Performed By: #### 3 0965 #### [facility] [address] [facility] [address], [facility] SPEC GRAV 1.011 Low 1.015-1.020 The [facility] Comment on above: Performed By: #### 3 0965 #### [facility] [address] [facility] [address], [facility] WBC UA 0-2 Abnormal NONE SEEN The [facility] Comment on above: Performed By: #### 3 0965 #### [facility] [address] [place] [address], [facility] Vital Signs Date Time Vital Sign Value Performing Clinician Facility 03-06-2024 11:08-0500 Body height 149.9 cm Nae Vazquez MD Work Phone: [facility] 03-06-2024 11:08-0500 Body mass index (BMI) [Ratio] 31.71 kg/m2 Nae Vazquez MD Work Phone: [facility] 03-06-2024 11:08-0500 Body weight 71.22 kg Nae Vazquez MD Work Phone: [facility] 03-06-2024 11:08-0500 Diastolic blood pressure 72 mm[Hg] Nae Vazquez MD Work Phone: [facility] 03-06-2024 11:08-0500 Heart rate 83 /min Nae Vazquez MD Work Phone: [facility] 03-06-2024 11:08-0500 Respiratory rate 18 /min Nae Vazquez MD Work Phone: [facility] 03-06-2024 11:08-0500 Systolic blood pressure 120 mm[Hg] Nae Vazquez MD Work Phone: [facility] 03-02-2024 10:34-0500 Body height 149.86 cm Rin Nicholson DO Work Phone: [facility] 03-02-2024 10:34-0500 Body weight 71.66 kg Rin Nicholson DO Work Phone: [facility] 02-03-2024 08:33-0400 Body height 149.86 cm Rin Nicholson DO Work Phone: [facility] 02-03-2024 08:33-0400 Body mass index (BMI) [Ratio] 32.3 kg/m2 Rin Nicholson DO Work Phone: [facility] 02-03-2024 08:33-0400 Body temperature 97.7 [degF] Rin Nicholson DO Work Phone: [facility] 02-03-2024 08:33-0400 Body weight 72.57 kg Rin Nicholson DO Work Phone: [facility] 02-03-2024 08:33-0400 Diastolic blood pressure 76 mm[Hg] Rin Nicholson DO Work Phone: [facility] 02-03-2024 08:33-0400 Heart rate 76 /min Rin Nicholson DO Work Phone: [facility] 02-03-2024 08:33-0400 SaO2% (BldA) [Mass fraction] 98 % Rin Nicholson DO Work Phone: [facility] 02-03-2024 08:33-0400 Systolic blood pressure 138 mm[Hg] Rin Nicholson DO Work Phone: [facility] 02-01-2024 11:47-0400 Body height 149.86 cm Rin Nicholson DO Work Phone: [facility] 02-01-2024 11:47-0400 Body mass index (BMI) [Ratio] 32.3 kg/m2 Rin Nicholson DO Work Phone: [facility] 02-01-2024 11:47-0400 Body temperature 96.8 [degF] Rin Nicholson DO Work Phone: [facility] 02-01-2024 11:47-0400 Body weight 72.74 kg Rin Nicholson DO Work Phone: [facility] 02-01-2024 11:47-0400 Diastolic blood pressure 74 mm[Hg] Rin Nicholson DO Work Phone: [facility] 02-01-2024 11:47-0400 Heart rate 73 /min Rin Nicholson DO Work Phone: [facility] 02-01-2024 11:47-0400 Respiratory rate 16 /min Rin Nicholson DO Work Phone: [facility] 02-01-2024 11:47-0400 SaO2% (BldA) [Mass fraction] 98 % Rin Nicholson DO Work Phone: [facility] 02-01-2024 11:47-0400 Systolic blood pressure 126 mm[Hg] Rin Nicholson DO Work Phone: [facility] 09-24-2022 08:10-0400 Body height 149.86 cm Rin Nicholson Other [employer] Other 09-24-2022 08:10-0400 Body mass index (BMI) [Ratio] 29.89 kg/m2 Rin Nicholson Other [employer] Other 09-24-2022 08:10-0400 Body temperature 98.6 [degF] Rin Nicholson Other [employer] Other 09-24-2022 08:10-0400 Body weight 67.13 kg Rin Nicholson Other [employer] Other 09-24-2022 08:10-0400 Diastolic blood pressure 84 mm[Hg] Rin Nicholson Other [employer] Other 09-24-2022 08:10-0400 Respiratory rate 18 /min Rin Nicholson Other [employer] Other 09-24-2022 08:10-0400 SaO2% (BldA) [Mass fraction] 97 % Rin Nicholson Other [employer] Other 09-24-2022 08:10-0400 Systolic blood pressure 126 mm[Hg] Rin Nicholson Other [employer] Other 08-09-2022 18:20-0400 Body height 149.86 cm Rin Nicholson Other [employer] Other 08-09-2022 18:20-0400 Body mass index (BMI) [Ratio] 29.89 kg/m2 Rin Nicholson Other [employer] Other 08-09-2022 18:20-0400 Body temperature 98.2 [degF] Rin Nicholson Other [employer] Other 08-09-2022 18:20-0400 Body weight 67.13 kg Rin Nicholson Other [employer] Other 08-09-2022 18:20-0400 Diastolic blood pressure 78 mm[Hg] Rin Nicholson Other [employer] Other 08-09-2022 18:20-0400 Respiratory rate 16 /min Rin Nicholson Other [employer] Other 08-09-2022 18:20-0400 SaO2% (BldA) [Mass fraction] 98 % Rin Nicholson Other [employer] Other 08-09-2022 18:20-0400 Systolic blood pressure 136 mm[Hg] Rin Nicholson Other [employer] Other 02-08-2022 18:00-0400 Body height 149.86 cm Rin Nicholson Other [employer] Other 02-08-2022 18:00-0400 Body mass index (BMI) [Ratio] 28.98 kg/m2 Rin Nicholson Other [employer] Other 02-08-2022 18:00-0400 Body temperature 98.1 [degF] Rin Nicholson Other [employer] Other 02-08-2022 18:00-0400 Body weight 65.09 kg Rin Nicholson Other [employer] Other 02-08-2022 18:00-0400 Diastolic blood pressure 80 mm[Hg] Rin Nicholson Other [employer] Other 02-08-2022 18:00-0400 Respiratory rate 16 /min Rin Nicholson Other [employer] Other 02-08-2022 18:00-0400 SaO2% (BldA) [Mass fraction] 99 % Rin Nicholson Other [employer] Other 02-08-2022 18:00-0400 Systolic blood pressure 136 mm[Hg] Rin Nicholson Other [employer] Other Encounters Encounter Date Encounter Type Care Provider Facility Start: 03-06-2024 End: 03-06-2024 [employer] Nae Vazquez MD Work Phone: [facility] Start: 03-06-2024 End: 03-06-2024 [employer] Nae Vazquez MD Work Phone: [facility] Start: 03-06-2024 End: 03-06-2024 Office outpatient visit 25 minutes Nae Vazquez MD Work Phone: [facility] Comment on above: 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 Work Phone: Start: 03-02-2024 End: 03-02-2024 ambulatory Rin Nicholson DO Work Phone: [facility] Work Phone: Start: 02-22-2024 Non-patient / Non-visit Rin Nicholson DO Work Phone: [facility] [employer] Work Phone: Start: 02-03-2024 End: 02-03-2024 Patient encounter procedure Rin Nicholson DO Work Phone: [facility] [place] Work Phone: Start: 02-01-2024 End: 02-01-2024 Patient encounter procedure Rin Nicholson DO Work Phone: [facility] [place] Work Phone: Start: 05-16-2023 End: 05-16-2023 ambulatory Rin Nicholson Other [employer] Other Start: 05-16-2023 Telephone encounter Rin Nicholson [facility] [place] Start: 05-03-2023 Encounter by compute r link Rin Nicholson [facility] [place] Start: 05-03-2023 End: 05-03-2023 Patient encounter procedure DO Rin Nicholson Work Phone: [facility] Work Phone: Start: 05-03-2023 End: 05-03-2023 ambulatory DO Rin Nicholson Work Phone: [facility] Work Phone: Start: 04-12-2023 End: 04-12-2023 ambulatory Rin Nicholson Other [employer] Other Start: 04-12-2023 Telephone encounter Rin Nicholson [facility] [place] Start: 04-04-2023 End: 04-04-2023 ambulatory Rin Nicholson Other [employer] Other Start: 04-04-2023 Telephone encounter Rin Nicholson [facility] [place] Start: 03-21-2023 End: 03-21-2023 ambulatory Rin Nicholson Other [employer] Other Start: 03-21-2023 Telephone encounter Rin Nicholson [facility] [place] Start: 02-23-2023 End: 02-23-2023 ambulatory Rin Nicholson Other [employer] Other Start: 02-23-2023 Telephone encounter Rin Nicholson [facility] [place] Start: 09-24-2022 End: 09-24-2022 ambulatory Rin Nicholson Other [employer] Other Start: 09-24-2022 Office outpatient vi sit 15 minutes Rin Nicholson [facility] [place] Start: 08-30-2022 End: 08-31-[address] RIN NICHOLSON Facility:[facility] Start: 08-17-2022 End: 08-17-2022 ambulatory Rin Nicholson Other [employer] Other Start: 08-17-2022 Telephone encounter Rin Nicholson [facility] [place] Start: 08-16-2022 End: 08-17-[address] RIN NICHOLSON Facility:[facility] Start: 08-09-2022 End: 08-09-2022 ambulatory Rin Nicholson Other [employer] Other Start: 08-09-2022 Office outpatient vi sit 25 minutes Rin Nicholson [facility] [place] Start: 08-06-2022 End: 08-06-2022 ambulatory Rin Nicohlson Other [employer] Other Start: 08-06-2022 Telephone encounter Rin Nicholson [facility] [place] Start: 07-31-2022 End: 08-01-[address] RIN NICHOLSON Facility:[facility] Start: 06-04-2022 End: 06-04-2022 ambulatory Rin Nicholson Other [employer] Other Start: 06-04-2022 Telephone encounter Rin Nicholson [facility] [place] Start: 05-24-2022 End: 05-24-2022 ambulatory Rin Nicholson Other [employer] Other Start: 05-24-2022 Telephone encounter Rin Nicholson [facility] [place] Start: 05-14-2022 End: 05-14-2022 ambulatory Rin Nicholson Other [employer] Other Start: 05-14-2022 Telephone encounter iRn Nicholson [facility] Start: 04-30-2022 End: 04-30-[address] BETTINA MULLIGAN . Facility:[facility] Start: 04-22-2022 End: 04-22-2022 ambulatory Rin Nicholson Other [employer] Other Start: 04-22-2022 Telephone encounter Rin Nicholson [facility] Start: 03-29-2022 End: 03-29-2022 ambulatory Rin Nicholson Other [employer] Other Start: 03-29-2022 Telephone encounter Rin Nicholson [facility] Start: 03-27-2022 End: 03-28-[address] RIN NICHOLSON Facility:[facility] Start: 02-08-2022 End: 02-08-2022 ambulatory Rin Nicholson Other [employer] Other Start: 02-08-2022 Office outpatient vi sit 25 minutes Rin Nicholson [facility] Start: 01-22-2022 End: 01-23-[address] RIN NICHOLSON Facility:[facility] Start: 08-23-2018 End: 08-25-2018 Evaluation and management of inpatient PROVIDER UNKNOWN Facility:[facility] Start: 05-11-2018 Patient encounter procedure [...] [id number] #### [facility] Noemy GONZALEZ. 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) Expected: 03/06/2024 (Approximate), Expires: 03/06/2025 [facility] Comment on above: Expected: 03/06/2024 (Approximate), Expi res: 03/06/2025 Start: 03-06-2024 End: 03-06-2025 Thyrotropin [Units/volume] in Serum or Plasma TSH Lab Routine 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) Expected: 03/06/2024 (Approximate), Expires: 03/06/2025 [facility] Comment on above: Expected: 03/06/2024 (Approximate), Expi res: 03/06/2025 Start: 03-06-2024 End: 03-06-2025 Thyroxine (T4) free [Mass/volume] in Serum or Plasma T4, free Lab Routine 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) Expected: 03/06/2024 (Approximate), Expires: 03/06/2025 [facility] Comment on above: Expected: 03/06/2024 (Approximate), Expi res: 03/06/2025 Start: 03-06-2024 End: 03-06-2025 Triiodothyronine (T3) Free [Mass/volume] in Serum or Plasma T3, free Lab Routine 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) Expected: 03/06/2024 (Approximate), Expires: 03/06/2025 [facility] Work Phone: Comment on above: Expected: 03/06/2024 (Approximate), Expi res: 03/06/2025 Start: 03-06-2024 End: 03-06-2024 Patient encounter procedure 03/06/2024 11:00 AM EST Office Visit [facility] [address] [place] [id number] Nae Vazquez MD [address] [place] [address] Arrived [facility] Comment on above: Arrived Start: 03-02-2024 Radionuclide myocardial perfusion stress study NM heaven perf SPECT rest & str [facility] Start: 02-03-2024 Patient referral [facility] Work Phone: Start: 12-18-2023 Influenza vaccination Influenza Vaccine (#1) [facility] Start: 1995 Screening for malignant neoplasm of breast Mammogram [facility] Start: 1955 Medicare Annual Wellness (AWV) Medicare Annual Wellness (AWV) [facility] Start: 1955 Screening for malignant neoplasm of colon [facility] Patient referral [facility] Work Phone: Renal function 2000 panel - Serum or Plasma [facility] US Kidney - bilateral [facility] Immunizations Immunization Date Immunization Notes Care Provider Fa cility 12-22-2023 influenza virus vaccine, unspecified formulation Nae Vazquez MD Work Phone: [facility] 08-29-2023 COVID-19 (MODERNA) 12Y and older Rin Nicholson DO Work Phone: [facility] 08-29-2023 zoster vaccine, live Rin soto DO Work Phone: [facility] 04-26-2023 Prevnar 20 Rin Nicholson Other [facility] 04-08-2023 COVID-19 Moderna (SPIKEVAX) Rin Nicholson Other [facility] 04-08-2023 zoster vaccine recombinant Rin Nicholson Other [facility] 03-22-2023 Fluzone QIV High-Dos e 65YR+ Rin Nicholson DO Work Phone: [facility] 03-22-2023 Flu Shot - Documentation Purposes Only Rin Nicholson Other [facility] 02-08-2022 Shingrix 50 MCG/0.5M L; 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: [Shingrix 50 MCG/0.5ML] Rin Nicholson Other [facility] [employer] Other 01-15-2022 influenza, seasonal, injectable Rin Nicholson Other [facility] 01-15-2022 COVID-19 Pfizer (bivalent) Rin Nicholson Other [facility] 01-15-2022 Fluzone QIV High-Dos e 65YR+ Rin Nicholson DO Work Phone: [facility] 07-31-2021 COVID-19 Vaccine Moderna - Documentation Purposes Only Rin Nicholson Other [facility] 02-20-2021 COVID-19 Vaccine Moderna - Documentation Purposes Only Rin Nicholson Other [facility] 01-24-2021 Influenza vaccine, quadrivalent, adjuvanted Rin Nicholson DO Work Phone: [facility] 07-26-2020 COVID-19 Avisa Rin koenig Other [facility] 06-28-2020 COVID-19 Avisa Rin koenig Other [facility] 02-18-2020 influenza, seasonal, injectable Rin Nicholson Other [facility] 01-18-2020 influenza, injectabl e, quadrivalent, preservative free Rin Nicholson DO Work Phone: [facility] 02-19-2017 influenza, seasonal, injectable Rin Nicholson Other [facility] 02-19-2017 influenza, injectabl e, quadrivalent, preservative free Rin Nicholson DO Work Phone: [facility] 03-08-2016 influenza, seasonal, injectable Rin Nicholson Other [facility] 05-07-2013 influenza virus vaccine, split virus (incl. purified surface antigen) Rin Nicholson Other [employer] Other 05-07-2013 influenza virus vaccine, unspecified formulation Rin Nicholson DO Work Phone: [facility] 03-24-2012 influenza, seasonal, injectable, preservative free Rin Kesslerbaljit Other [facility] Payers Date Payer Category Payer Self-pay [id number] 2023 Medicare (Managed Care) [facility] [id number] 2023 Unknown [id number] 2022 Medicare [id number] 1959 Unknown [id number] 1955 Unknown [id number]. 2.356 1955 Unknown [id number] 2.16.840.1.901574.3.579. 2.356 1955 Unknown [id number] 2.16.840.1.967738.3.579. 2.356 1955 Unknown [id number] 2.16.840.1.032895.3.579. 2.356 1955 Unknown [id number] 2.16.840.1.740586.3.579. 2.647 1955 Unknown [id number] 2.16.840.1.375552.3.579. 2.593 1955 Unknown [id number] 2.16.840.1.977444.3.579. 2.593 1955 Unknown [id number] 2.16.840.1.256113.3.579. 2.593 1955 Unknown [id number] 2.16.840.1.367406.3.579. 2.593 1955 Unknown [id number] 2.16.840.1.514206.3.579. 2.593 1955 Unknown [id number] 2.16.840.1.422588.3.579. 2.593 1955 Unknown [id number] 2.16.840.1.566919.3.579. 2.1259 Unknown [id number] Unknown [id number] 2.16.840.1.292675.3.579. 2.531 Social History Date Type Detail Facility Unknown if ever smoked [facility] [employer] Other Start: 02-20-2024 Sex Assigned At N [facility] [employer] Other Start: 1955 Sex Assigned At Female F [facility] Start: 06-02-2020 End: 02-20-2024 Tobacco smoking status NHIS Never smoked tobacco (finding) [facility] Start: 03-03-2024 Sex Patient sex un known (finding) [facility] Start: 02-20-2024 Tobacco use and exposure Smokeless tobacco non-user [facility] Start: 02-20-2024 Alcoholic beverage intake Lifetime non-drinker (finding) [facility] Start: 02-20-2024 History of Social function [facility] Start: 1955 Sex assigned at Not [...] months (around 07/04/2024). documented in this encounter [facility] 03-03-2024 Nuclear medicine Diagnostic study note [facility] Main [place] [address] [place] [address] Nuclear Medicine Report Signed Patient: Leslee Morfin MR#: [id number] : 1955 Acct:[id number] Age/Sex: 68 / F ADM Date: 4 Loc: DC Room: Type: [facility] Attending Dr: Jeffrey Urias MD Copies to: Jeffrey Urias MD, [facility] Ryne Johnson MD~ Ordering Provider: Jeffrey Urias MD, [facility] Date of Service: 03/02/24 NM/NM heaven [...] study available for comparison. Transcribed By: RACHEL 03/02/242 Dictated By: Ryne Johnson MD 03/02/24 0346 Signed By: 03/03/24 0704 [facility] Work Phone: 02-03-2024 Evaluation note Authored February 03, 2024 12:16pm The above note written by __ _Wilmre Helm____ acting as human recorder, note dictated by Dr. Castro .I performed the above HPI, ROS, and Examination. I formulated and dictated the treatment plan and was present for entire encounter. Rin Nicholson D.O. [facility] Work Phone: [phone]) 769-916201-16-2024 Evaluation note* Encounter Date Diagnosis Assessment Notes Treatment Notes Treatment Clinical Notes Apr, GERD (gastroesophageal reflux disease) (ICD-10 - K21.9) [employer] Other 2023 Evaluation note* Encounter Date Diagnosis Assessment Notes Treatment Notes Treatment Clinical Notes Mar, Abnormal blood chemistry (ICD-10 - R79.9) Mar, Hypercalcemia (ICD-1 0 - E83.52) Mar, Stage 3a chronic kidney disease (ICD-10 - N18.31) [employer] Other 06-09-2023 Evaluation note* Encounter Date Diagnosis [...] see where her kidney studies are at. [employer] Other 04-24-2023 Evaluation note* Encounter Date Diagnosis [...] results. She may have to see the lamination spinner again but we will wait and see [...] ice the shoulder or alternate with heat. [employer] Other 01-05-2023 Evaluation note* Encounter Date Diagnosis Assessment Notes Treatment Notes Treatment Clinical Notes Apr, Hypertension (ICD-10 - I10) [employer] Other 10-24-2022 Evaluation note* Encounter Date Diagnosis [...] this. She does agree to see an program production specialist. A referral is provided. Her range [...] th an order for a Shingrix vaccine [employer] Other 02-01-2021 History general Narrative - Reported* Type Description Date Medical History Stress Test; [facility], normal per patient Medical History Pap and Pelvic 3 yea rs ago, OBGYN in [place] Medical History Mammogram over 5 yea rs; Normal at that time per patient Medical History CT Abdomen and Pelvi s over 5 years ago; [facility] Medical History Colonoscopy 8 years ago; in [place], normal in patient Medical History Chest X-Ray 12-15-11; normal, [facility] Medical History Echocardiogram; 12-15; The [facility] Medical History Cardiolite Stress Te st 12-16-11; The [facility] Medical History Check's sugar's bid Medical History Heart Catherization; [facility] Medical History breast cancer 04/2014 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, status post lumpectomy x2, sentinel lymph node biopsy and adjuvant radiotherapy that concluded on 08-21-14 Medical History 11/2016 diabetic shif ting in rt eye - Dr French from [facility] Surgical History Tonsillectomy age 21 Surgical History ovarian tumor removed and left ovary Surgical History complete hysterectomy 1993 Surgical History Heart Catherization; [facility] Surgical History Right Shoulder Tear and bone spur removal; [facility] 07-27-12 Surgical History Left Shoulder Rotato [...] for a kidney stone Surgical History mammogram [facility] 04/2017 Surgical History vertabrae fusion 08/2018 Hospitalization History ovarian tumor removed an d left overy Hospitalization History complete hysterectomy 19 94 [employer] Other 01-19-2021 History general Narrative - Reported* Type Description Date Medical History Stress Test; [facility], normal per patient Medical History Pap and Pelvic 3 yea rs ago, OBGYN in [place] Medical History Mammogram over 5 yea rs; Normal at that time per patient Medical History CT Abdomen and Pelvi s over 5 years ago; [facility] Medical History Colonoscopy 8 years ago; in [place], normal in patient Medical History Chest X-Ray 12-15-11; normal, [facility] Medical History Echocardiogram; 12-15; The [facility] Medical History Cardiolite Stress Te st 12-16-11; The [facility] Medical History Check's sugar's bid Medical History Heart Catherization; [facility] Medical History breast cancer 04/2014 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, status post lumpectomy x2, sentinel lymph node biopsy and adjuvant radiotherapy that concluded on 08-21-14 Medical History 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 - Dr French from [facility] Surgical History Tonsillectomy age 21 Surgical History ovarian tumor removed and left ovary Surgical History complete hysterectomy 1993 Surgical History Heart Catherization; [facility] Surgical History Right Shoulder Tear and bone spur removal; [facility] 07-27-12 Surgical History Left Shoulder Rotato [...] for a kidney stone Surgical History mammogram [facility] 04/2017 Surgical History vertabrae fusion 08/2018 Hospitalization History ovarian tumor removed an d left overy Hospitalization History complete hysterectomy 19 94 [employer] Other 12-27-2020 History general Narrative - Reported* Type Description Date Medical History Stress Test; [facility], normal per patient Medical History Pap and Pelvic 3 yea rs ago, OBGYN in [place] Medical History Mammogram over 5 yea rs; Normal at that time per patient Medical History CT Abdomen and Pelvi s over 5 years ago; [facility] Medical History Colonoscopy 8 years ago; in [place], normal in patient Medical History Chest X-Ray 12-15-11; normal, The [facility] Medical History Echocardiogram; 12-15; The [facility] Medical History Cardiolite Stress Te st 12-16-11; The [facility] Medical History Check's sugar's bid Medical History Heart Catherization; [facility] Medical History breast cancer 04/2014 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, status post lumpectomy x2, sentinel lymph node biopsy and adjuvant radiotherapy that concluded on 08-21-14 Medical History 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 - Dr French from [facility] Surgical History Tonsillectomy age 21 Surgical History ovarian tumor removed and left ovary Surgical History complete hysterectomy 1993 Surgical History Heart Catherization; [facility] Surgical History Right Shoulder Tear and bone spur removal; [facility] 07-27-12 Surgical History Left Shoulder Rotato [...] for a kidney stone Surgical History mammogram [facility] 04/2017 Surgical History vertabrae fusion 08/2018 Hospitalization History ovarian tumor removed an d left overy Hospitalization History complete hysterectomy 19 94 [employer] Other 12-20-2020 History general Narrative - Reported* Type Description Date Medical History Stress Test; [facility], normal per patient Medical History Pap and Pelvic 3 yea rs ago, OBGYN in [place] Medical History Mammogram over 5 yea rs; Normal at that time per patient Medical History CT Abdomen and Pelvi s over 5 years ago; [facility] Medical History Colonoscopy 8 years ago; in [place], normal in patient Medical History Chest X-Ray 12-15-11; normal, The [facility] Medical History Echocardiogram; 12-15; The [facility] Medical History Cardiolite Stress Te st 12-16-11; The [facility] Medical History Check's sugar's bid Medical History Heart Catherization; [facility] Medical History breast cancer 04/2014 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, status post lumpectomy x2, sentinel lymph node biopsy and adjuvant radiotherapy that concluded on 08-21-14 Medical History 11/2016 diabetic yao maddeng in rt eye - Dr French from [facility] Surgical History Tonsillectomy age 21 Surgical History ovarian tumor removed and left ovary Surgical History complete hysterectomy 1993 Surgical History Heart Catherization; [facility] Surgical History Right Shoulder Tear and bone spur removal; [facility] 07-27-12 Surgical History Left Shoulder Rotato [...] for a kidney stone Surgical History mammogram [facility] [place] Surgical History vertabrae fusion 08/2018 Hospitalization History ovarian tumor removed an d left overy Hospitalization History complete hysterectomy 19 94 [employer] Other 12-04-2020 History general Narrative - Reported* Type Description Date Medical History Stress Test; [facility], normal per patient Medical History Pap and Pelvic 3 yea rs ago, OBGYN in [place] Medical History Mammogram over 5 yea rs; Normal at that time per patient Medical History CT Abdomen and Pelvi s over 5 years ago; [facility] Medical History Colonoscopy 8 years ago; in [place], normal in patient Medical History Chest X-Ray 12-15-11; normal, [facility] Medical History Echocardiogram; 12-15; The [facility] Medical History Cardiolite Stress Te st 12-16-11; The [facility] Medical History Check's sugar's bid Medical History Heart Catherization; The [facility] Medical History breast cancer 04/2014 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, status post lumpectomy x2, sentinel lymph node biopsy and adjuvant radiotherapy that concluded on 08-21-14 Medical History 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 - Dr French from [facility] Surgical History Tonsillectomy age 21 Surgical History ovarian tumor removed and left ovary Surgical History complete hysterectomy 1993 Surgical History Heart Catherization; [facility] Surgical History Right Shoulder Tear and bone spur removal; [facility] 07-27-12 Surgical History Left Shoulder Rotato [...] for a kidney stone Surgical History mammogram [facility] 04/2017 Surgical History vertabrae fusion 08/2018 Hospitalization History ovarian tumor removed an d left overy Hospitalization History complete hysterectomy 19 94 [employer] Other 11-08-2020 History general Narrative - Reported* Type Description Date Medical History Stress Test; [facility], normal per patient Medical History Pap and Pelvic 3 yea rs ago, OBGYN in [place] Medical History Mammogram over 5 yea rs; Normal at that time per patient Medical History CT Abdomen and Pelvi s over 5 years ago; [facility] Medical History Colonoscopy 8 years ago; in [place], normal in patient Medical History Chest X-Ray 12-15-11; normal, The [facility] Medical History Echocardiogram; 12-15; The [facility] Medical History Cardiolite Stress Te st 12-16-11; The [facility] Medical History Check's sugar's bid Medical History Heart Catherization; The [facility] Medical History breast cancer 04/2014 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, status post lumpectomy x2, sentinel lymph node biopsy and adjuvant radiotherapy that concluded on 08-21-14 Medical History 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 - Dr French from [facility] Surgical History Tonsillectomy age 21 Surgical History ovarian tumor removed and left ovary Surgical History complete hysterectomy 1993 Surgical History Heart Catherization; [facility] Surgical History Right Shoulder Tear and bone spur removal; [facility] 07-27-12 Surgical History Left Shoulder Rotato [...] for a kidney stone Surgical History mammogram [facility] 04/2017 Surgical History vertabrae fusion 08/2018 Hospitalization History ovarian tumor removed an d left overy Hospitalization History complete hysterectomy 19 94 [employer] Other 06-20-2020 History general Narrative - Reported* Type Description Date Medical History Stress Test; [facility], normal per patient Medical History Pap and Pelvic 3 yea rs ago, OBGYN in [place] Medical History Mammogram over 5 yea rs; Normal at that time per patient Medical History CT Abdomen and Pelvi s over 5 years ago; [facility] Medical History Colonoscopy 8 years ago; in [place], normal in patient Medical History Chest X-Ray 12-15-11; normal, The [facility] Medical History Echocardiogram; 12-15; The [facility] Medical History Cardiolite Stress Te st 12-16-11; The [facility] Medical History Check's sugar's bid Medical History Heart Catherization; The [facility] Medical History breast cancer 04/2014 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, status post lumpectomy x2, sentinel lymph node biopsy and adjuvant radiotherapy that concluded on 08-21-14 Medical History 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 - Dr French from [facility] Surgical History Tonsillectomy age 21 Surgical History ovarian tumor removed and left ovary Surgical History complete hysterectomy 1993 Surgical History Heart Catherization; [facility] Surgical History Right Shoulder Tear and bone spur removal; [facility] 07-27-12 Surgical History Left Shoulder Rotato [...] for a kidney stone Surgical History mammogram [facility] 04/2017 Surgical History vertabrae fusion 08/2018 Hospitalization History ovarian tumor removed an d left overy Hospitalization History complete hysterectomy 19 94 [employer] Other 05-03-2020 History general Narrative - Reported* Type Description Date Medical History Stress Test; [facility], normal per patient Medical History Pap and Pelvic 3 yea rs ago, OBGYN in [place] Medical History Mammogram over 5 yea rs; Normal at that time per patient Medical History CT Abdomen and Pelvi s over 5 years ago; [facility] Medical History Colonoscopy 8 years ago; in [place], normal in patient Medical History Chest X-Ray 12-15-11; normal, The [facility] Medical History Echocardiogram; 12-15; The [facility] Medical History Cardiolite Stress Te st 12-16-11; The [facility] Medical History Check's sugar's bid Medical History Heart Catherization; The [facility] Medical History breast cancer 04/2014 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, status post lumpectomy x2, sentinel lymph node biopsy and adjuvant radiotherapy that concluded on 08-21-14 Medical History 11/2016 diabetic shif ting in rt eye - Dr French from [facility] Surgical History Tonsillectomy age 21 Surgical History ovarian tumor removed and left ovary Surgical History complete hysterectomy 1993 Surgical History Heart Catherization; [facility] Surgical History Right Shoulder Tear and bone spur removal; [facility] 07-27-12 Surgical History Left Shoulder Rotato [...] for a kidney stone Surgical History mammogram [facility] 04/2017 Surgical History vertabrae fusion 08/2018 Hospitalization History ovarian tumor removed an d left overy Hospitalization History complete hysterectomy 19 94 [employer] Other 04-26-2020 History general Narrative - Reported* Type Description Date Medical History Stress Test; [facility], normal per patient Medical History Pap and Pelvic 3 yea rs ago, OBGYN in [place] Medical History Mammogram over 5 yea rs; Normal at that time per patient Medical History CT Abdomen and Pelvi s over 5 years ago; [facility] Medical History Colonoscopy 8 years ago; in [place], normal in patient Medical History Chest X-Ray 12-15-11; normal, The [facility] Medical History Echocardiogram; 12-15; The [facility] Medical History Cardiolite Stress Te st 12-16-11; The [facility] Medical History Check's sugar's bid Medical History Heart Catherization; The [facility] Medical History breast cancer 04/2014 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, status post lumpectomy x2, sentinel lymph node biopsy and adjuvant radiotherapy that concluded on 08-21-14 Medical History 11/2016 diabetic shif ting in rt eye - Dr French from [facility] Surgical History Tonsillectomy age 21 Surgical History ovarian tumor removed and left ovary Surgical History complete hysterectomy 1993 Surgical History Heart Catherization; [facility] Surgical History Right Shoulder Tear and bone spur removal; [facility] 07-27-12 Surgical History Left Shoulder Rotato [...] for a kidney stone Surgical History mammogram [facility] 04/2017 Surgical History vertabrae fusion 08/2018 Hospitalization History ovarian tumor removed an d left overy Hospitalization History complete hysterectomy [employer] Other 04-21-2020 History general Narrative - Reported* Type Description Date Medical History Stress Test; [facility], normal per patient Medical History Pap and Pelvic 3 yea rs ago, OBGYN in [place] Medical History Mammogram over 5 yea rs; Normal at that time per patient Medical History CT Abdomen and Pelvi s over 5 years ago; [facility] Medical History Colonoscopy 8 years ago; in [place], normal in patient Medical History Chest X-Ray 12-15-11; normal, The [facility] Medical History Echocardiogram; 12-15; The [facility] Medical History Cardiolite Stress Te st 12-16-11; The [facility] Medical History Check's sugar's bid Medical History Heart Catherization; The [facility] Medical History breast cancer 04/2014 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, status post lumpectomy x2, sentinel lymph node biopsy and adjuvant radiotherapy that concluded on 08-21-14 Medical History 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 - Dr French from [facility] Surgical History Tonsillectomy age 21 Surgical History ovarian tumor removed and left ovary Surgical History complete hysterectomy 1993 Surgical History Heart Catherization; [facility] Surgical History Right Shoulder Tear and bone spur removal; [facility] 07-27-12 Surgical History Left Shoulder Rotato [...] for a kidney stone Surgical History mammogram [facility] 04/2017 Surgical History vertabrae fusion 08/2018 Hospitalization History ovarian tumor removed an d left overy Hospitalization History complete hysterectomy [employer] Other 03-12-2020 History general Narrative - Reported* Type Description Date Medical History Stress Test; [facility], normal per patient Medical History Pap and Pelvic 3 yea rs ago, OBGYN in [place] Medical History Mammogram over 5 yea rs; Normal at that time per patient Medical History CT Abdomen and Pelvi s over 5 years ago; [facility] Medical History Colonoscopy 8 years ago; in [place], normal in patient Medical History Chest X-Ray 12-15-11; normal, The [facility] Medical History Echocardiogram; 12-15; The [facility] Medical History Cardiolite Stress Te st 12-16-11; The [facility] Medical History Check's sugar's bid Medical History Heart Catherization; The [facility] Medical History breast cancer 04/2014 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, status post lumpectomy x2, sentinel lymph node biopsy and adjuvant radiotherapy that concluded on 08-21-14 Medical History 11/2016 diabetic shif ting in rt eye - Dr French from [facility] Surgical History Tonsillectomy age 21 Surgical History ovarian tumor removed and left ovary Surgical History complete hysterectomy 1993 Surgical History Heart Catherization; [facility] Surgical History Right Shoulder Tear and bone spur removal; [facility] 07-27-12 Surgical History Left Shoulder Rotato [...] for a kidney stone Surgical History mammogram [facility] 04/2017 Surgical History vertabrae fusion 08/2018 Hospitalization History ovarian tumor removed an d left overy Hospitalization History complete hysterectomy 19 94 [employer] Other 03-07-2020 History general Narrative - Reported* Type Description Date Medical History Stress Test; [facility], normal per patient Medical History Pap and Pelvic 3 yea rs ago, OBGYN in [place] Medical History Mammogram over 5 yea rs; Normal at that time per patient Medical History CT Abdomen and Pelvi s over 5 years ago; [facility] Medical History Colonoscopy 8 years ago; in [place], normal in patient Medical History Chest X-Ray 12-15-11; normal, The [facility] Medical History Echocardiogram; 12-15; The [facility] Medical History Cardiolite Stress Te st 12-16-11; The [facility] Medical History Check's sugar's bid Medical History Heart Catherization; The [facility] Medical History breast cancer 04/2014 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, status post lumpectomy x2, sentinel lymph node biopsy and adjuvant radiotherapy that concluded on 08-21-14 Medical History 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 - Dr French from [facility] Surgical History Tonsillectomy age 21 Surgical History ovarian tumor removed and left ovary Surgical History complete hysterectomy 1993 Surgical History Heart Catherization; [facility] Surgical History Right Shoulder Tear and bone spur removal; [facility] 07-27-12 Surgical History Left Shoulder Rotato [...] for a kidney stone Surgical History mammogram [facility] 04/2017 Surgical History vertabrae fusion 08/2018 Hospitalization History ovarian tumor removed an d left overy Hospitalization History complete hysterectomy 19 94 [employer] Other 03-04-2020 History general Narrative - Reported* Type Description Date Medical History Stress Test; [facility], normal per patient Medical History Pap and Pelvic 3 yea rs ago, OBGYN in [place] Medical History Mammogram over 5 yea rs; Normal at that time per patient Medical History CT Abdomen and Pelvi s over 5 years ago; [facility] Medical History Colonoscopy 8 years ago; in [place], normal in patient Medical History Chest X-Ray 12-15-11; normal, The [facility] Medical History Echocardiogram; 12-15; The [facility] Medical History Cardiolite Stress Te st 12-16-11; The [facility] Medical History Check's sugar's bid Medical History Heart Catherization; The [facility] Medical History breast cancer 04/2014 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, status post lumpectomy x2, sentinel lymph node biopsy and adjuvant radiotherapy that concluded on 08-21-14 Medical History 11/2016 diabetic shif ting in rt eye - Dr French from [facility] Surgical History Tonsillectomy age 21 Surgical History ovarian tumor removed and left ovary Surgical History complete hysterectomy 1993 Surgical History Heart Catherization; [facility] Surgical History Right Shoulder Tear and bone spur removal; [facility] 07-27-12 Surgical History Left Shoulder Rotato [...] for a kidney stone Surgical History mammogram [facility] 04/2017 Surgical History vertabrae fusion 08/2018 Hospitalization History ovarian tumor removed an d left overy Hospitalization History complete hysterectomy 19 94 [employer] Other 02-22-2020 History general Narrative - Reported* Type Description Date Medical History Stress Test; [facility], normal per patient Medical History Pap and Pelvic 3 yea rs ago, OBGYN in [place] Medical History Mammogram over 5 yea rs; Normal at that time per patient Medical History CT Abdomen and Pelvi s over 5 years ago; [facility] Medical History Colonoscopy 8 years ago; in [place], normal in patient Medical History Chest X-Ray 12-15-11; normal, The [facility] Medical History Echocardiogram; 12-15; The [facility] Medical History Cardiolite Stress Te st 12-16-11; The [facility] Medical History Check's sugar's bid Medical History Heart Catherization; The [facility] Medical History breast cancer 04/2014 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, status post lumpectomy x2, sentinel lymph node biopsy and adjuvant radiotherapy that concluded on 08-21-14 Medical History 11/2016 diabetic shif ting in rt eye - Dr French from [facility] Surgical History Tonsillectomy age 21 Surgical History ovarian tumor removed and left ovary Surgical History complete hysterectomy 1993 Surgical History Heart Catherization; [facility] Surgical History Right Shoulder Tear and bone spur removal; [facility] 07-27-12 Surgical History Left Shoulder Rotato [...] for a kidney stone Surgical History mammogram [facility] 04/2017 Surgical History vertabrae fusion 08/2018 Hospitalization History ovarian tumor removed an d left overy Hospitalization History complete hysterectomy 19 94 [employer] Other 02-12-2020 History general Narrative - Reported* Type Description Date Medical History Stress Test; [facility], normal per patient Medical History Pap and Pelvic 3 yea rs ago, OBGYN in [place] Medical History Mammogram over 5 yea rs; Normal at that time per patient Medical History CT Abdomen and Pelvi s over 5 years ago; [facility] Medical History Colonoscopy 8 years ago; in [place], normal in patient Medical History Chest X-Ray 12-15-11; normal, The [facility] Medical History Echocardiogram; 12-15; The [facility] Medical History Cardiolite Stress Te st 12-16-11; The [facility] Medical History Check's sugar's bid Medical History Heart Catherization; The [facility] Medical History breast cancer 04/2014 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, status post lumpectomy x2, sentinel lymph node biopsy and adjuvant radiotherapy that concluded on 08-21-14 Medical History 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 - Dr French from [facility] Surgical History Tonsillectomy age 21 Surgical History ovarian tumor removed and left ovary Surgical History complete hysterectomy 1993 Surgical History Heart Catherization; [facility] Surgical History Right Shoulder Tear and bone spur removal; [facility] 07-27-12 Surgical History Left Shoulder Rotato [...] for a kidney stone Surgical History mammogram [facility] 04/2017 Surgical History vertabrae fusion 08/2018 Hospitalization History ovarian tumor removed an d left overy Hospitalization History complete hysterectomy 19 94 [employer] Other 10-27-2019 History general Narrative - Reported* Type Description Date Medical History Stress Test; [facility], normal per patient Medical History Pap and Pelvic 3 yea rs ago, OBGYN in [place] Medical History Mammogram over 5 yea rs; Normal at that time per patient Medical History CT Abdomen and Pelvi s over 5 years ago; [facility] Medical History Colonoscopy 8 years ago; in [place], normal in patient Medical History Chest X-Ray 12-15-11; normal, The [facility] Medical History Echocardiogram; 12-15; The [facility] Medical History Cardiolite Stress Te st 12-16-11; The [facility] Medical History Check's sugar's bid Medical History Heart Catherization; The [facility] Medical History breast cancer 04/2014 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, status post lumpectomy x2, sentinel lymph node biopsy and adjuvant radiotherapy that concluded on 08-21-14 Medical History 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 - Dr French from [facility] Surgical History Tonsillectomy age 21 Surgical History ovarian tumor removed and left ovary Surgical History complete hysterectomy 1993 Surgical History Heart Catherization; [facility] Surgical History Right Shoulder Tear and bone spur removal; [facility] 07-27-12 Surgical History Left Shoulder Rotato [...] for a kidney stone Surgical History mammogram [facility] 04/2017 Surgical History vertabrae fusion 08/2018 Hospitalization History ovarian tumor removed an d left overy Hospitalization History complete hysterectomy 19 94 [employer] Other Evaluation noteNo [email or web address] Other Evaluation noteNo assessment information available [facility] Work Phone: Evaluation note* Diagnosis 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 Cornejo or Viki for evaluation of right shoulder pain Diagnosis 1 Shoulder pain, right (M25.511) Referral Organization [facility] Chuck Zavala Referring Provider First Name Rin Referring Provider Last Name Lyn Referring Provider Specialty Family Prac meenu Referred Organization [facility] Referred Address ,[place], [place],[address] Referred Provider Specialty Orthopedic S urgery Referral Priority Routine General Notes Florinda Leonard 02/08/2022 05:31:28 PM > Access Ortho referral form hard faxed with visit note, med list and insurance card. pt understands she will be contacted to schedule this appt. [employer] Other Summary Purpose Family History No Family [...] 3:18pm Hospital Course Note MR#: [id number] I [facility] Pt. Name: Criselda Morfin Admitted: 08/23/2018 [...] section and content) DATE CREATED AUTHOR 06/05/2018 [facility] DATE CREATED AUTHOR AUTHOR'S ORGANIZ ATION 12/09/2018 [facility] DATE CREATED AUTHOR AUTHOR'S ORGANIZ ATION 08/31/2022 [facility] DATE CREATED AUTHOR AUTHOR'S ORGANIZ ATION 03/05/2024 [facility] DATE CREATED AUTHOR AUTHOR'S ORGANIZ ATION 03/08/2024 [facility] EPIC REASON FOR VISIT (unrecogniz [...] March 02, 2024 End: March 02, 2024 Sheep Killer Relationship Specialty Start Date End Date Rin Nicholson MD [address] [place] [address] PCP - General Family Medicine 03/01/24 Sheep Killer Relationship Specialty Start Date End Date Rin Nicholson MD [address] [place], [place] [id number] PCP - General Family Medicine 03/01/24 FOR [...] BE BASED ON THE PRIMARY CLINICAL RECORDS. [facility]. provides no warranty or guarantee of the accuracy or completeness of information in this document.
[2024-05-22 08:24] LABS: Free T3 2.53 pg/mL (2.18-3.98); Thyroid Stimulating Hormone 4.503 uIU/mL (0.358-3.740)
[2024-05-22 08:40] LABS: Free T4 1.08 ng/dL (0.76-1.46)
== END 2024-05-22 07:17 | disposition home or self-care (01) ==
LOC: LAB 07:17
PROVIDERS: PCP Family Medicine; Visit Provider Internal Medicine
DX: E05.00 Thyrotoxicosis with diffuse goiter without thyrotoxic crisis or storm (principal); Z79.899 Other long term (current) drug therapy; E11.9 Type 2 diabetes mellitus without complications; E53.8 Deficiency of other specified B group vitamins; E78.5 Hyperlipidemia, unspecified
CPT/HCPCS: 36415; 80053; 80061; 82607; 82746; 83036; 84439; 84443; 84481; 85025

== ENCOUNTER 2024-08-21 06:52 | Outpatient (OUT) | payer MEDICARE, SELFPAY ==
[2024-08-21 07:34] LABS: Alanine Aminotransferase 24 U/L (14-59); Albumin Globulin Ratio 0.9; Albumin Level 3.4 g/dL (3.4-5.0); Alkaline Phosphatase 136 U/L (46-116); Anion Gap 13.6; Aspartate Amino Transferase 14 U/L (15-37); BUN Creatinine Ratio 13.6; Bilirubin Total 0.3 mg/dL (0.2-1.0); Calcium 8.9 mg/dL (8.5-10.1); Carbon Dioxide 26.5 mmol/L (21.0-32.0); Chloride 105 mmol/L (98-107); Chol HDL Ratio 4.2; Cholesterol 205 mg/dL (<=200); Estimated GFR (African America 55 (>=60 mL/min/1.73m^2); Estimated GFR (Non-African Ame 46 (>=60 mL/min/1.73m^2); Globulin 3.7 g/dL; Glucose 120 mg/dL (74-106); HDL Cholesterol 49 mg/dL (40-60); Potassium 4.1 mmol/L (3.5-5.1); Sodium 141 mmol/L (136-145); Total Protein 7.1 g/dL (6.4-8.2); Triglycerides 153 mg/dL (<=150); VLDL CHOLESTEROL 30.6 mg/dL
[2024-08-21 08:25] LABS: Estimated Average Glucose 163 mg/dL; Glycohemoglobin A1C 7.3 % (4.5-6.2)
== END 2024-08-21 06:53 | disposition home or self-care (01) ==
LOC: LAB 06:52
PROVIDERS: PCP Family Medicine; Visit Provider Family Medicine
DX: E78.5 Hyperlipidemia, unspecified (principal); E11.9 Type 2 diabetes mellitus without complications; Z79.899 Other long term (current) drug therapy
CPT/HCPCS: 36415; 80053; 80061; 83036

== ENCOUNTER 2024-10-25 12:30 | Outpatient (REF) | payer MEDICARE, SELFPAY ==
--- OUTSIDE RECORDS SUMMARY | 2024-10-25 10:00 | XMS_ITS | Encounter Summary ---
Author Organization [facility] Address [address] [place] [address] Care Team Providers Care Net Wpf Developer Name Role Phone Pramod Roach MD Primary Care Provider [phone] Reason for Visit * Reason Comments Well Women Visit Encounter Details Date Type Department Care Team ([facility] st Contact Info) Description 10/25/2024 10:00 AM EDT Office Visit [facility] OB [address] [place] [address] Selin No PA [address] [place], [facility] Well woman exam with routine gynecological [...] nursing note reviewed. Exam conducted with a supervisor final present. Vitals: Estimated body mass index is [...] [facility] [address] [place] [address] Nae Argueta MD [address] [place] [address] 10/30/2025 10:00 AM EDT Office Visit [facility] OB [address] [place] [address] Selin No PA [address] [facility] [place] [address] Scheduled Orders Name Type Priority Associated [...] (natural) documented in this encounter Care Teams Net Wpf Developer Relationship Specialty Start Date End Date Pramod Roach MD [address] [place] [address] PCP - General Family Medicine 03/01/24 documented as of this encounter
--- OUTSIDE RECORDS SUMMARY | 2024-10-25 12:33 | XMS_ITS | Encounter Summary ---
Author Organization [facility] Address [address] [place] [address] Care Team Providers Care Lead Pastor Name Role Phone Nae Argueta MD Primary Care Provider [phone] Pramod Roach MD Primary Care Provider [phone] Encounter Details Date Type Department Care Team (Late Contact Info) Description 02/22/2024 Orders Only [facility] [address] [place] [address] Nae Argueta MD [address] [place] [address] Social History Tobacco Use Types Packs/Day Years Used Date Smoking Tobacco: Never Smokeless Tobacco: Never Alcohol Use Standard Drinks/Week Comments Never 0 (1 standard drink = 0.6 oz pur e alcohol) Comments Unknown Sex and Gender Information Value Date Recorded Sex Assigned at Not on file Legal Sex Female 6:59 PM EDT Gender Identity Not on file Sexual Orientation Not on file documented as of this encounter Plan of Treatment Upcoming Encounters Date Type Department Care Team (Late Contact Info) Description 12/06/2024 10:00 AM EDT Office Visit [facility] [address] [place] [address] Nae Argueta MD [address] [place] [address] 10/30/2025 10:00 AM EDT Office Visit [facility] OB [address] [facility] [place] [address] Selin No PA [address] [facility] [place] [address] documented as of this encounter Procedures Procedure Name Priority Date/Time Associated Diagnosis Comments T3, FREE Routine 02/22/2024 10:13 AM EST TSH Routine 02/22/2024 10:13 AM EST T4, FREE Routine 02/22/2024 10:13 AM EST RENAL FUNCTION PANEL Routine 02/22/2024 10:13 AM EST documented in this encounter Results * Renal function panel (02/22/2024 10:13 AM EST) Blood Venous blood specimen / Unknown Nae Argueta MD LAB BLOOD ORDERABLES Final Re sult * T3, free (02/22/2024 10:13 AM EST) Blood Venous blood specimen / Unknown Nae Argueta MD LAB BLOOD ORDERABLES Final Re sult * TSH (02/22/2024 10:13 AM EST) Blood Venous blood specimen / Unknown Nae Argueta MD LAB BLOOD ORDERABLES Final Re sult * T4, free (02/22/2024 10:13 AM EST) Blood Venous blood specimen / Unknown Nae Argueta MD LAB BLOOD ORDERABLES Final Re sult documented in this encounter Visit Diagnoses Not on filedocumented in this encounter Care Teams Lead Pastor Relationship Specialty Start Date End Date Nae Argueta MD [address] [place] [place] [address] PCP - General Endocrinology 12/21/23 02/29/24 Pramod Roach MD [address] [place], [place] [address] [address] PCP - General Family Medicine 03/01/24 documented as of this encounter
--- OUTSIDE RECORDS SUMMARY | 2024-10-25 12:33 | XMS_ITS | Encounter Summary ---
Author Organization [facility] Address [address] [place] [address] Care Team Providers Care Certified Flight Instructor Name Role Phone Pramod Roach MD Primary Care Provider [phone] Encounter Details Date Type Department Care Team (Late Contact Info) Description 10/25/2024 Bamboo flowsheet [facility] [address] [place] [address] Selin No PA [address] [facility] [address] [place], [place] [address] Social History Tobacco Use Types Packs/Day Years [...] 10:00 AM EDT Office Visit [facility] [address] [place] [address] Nae Argueta MD [address] [place] [address] 10/30/2025 10:00 AM EDT Office Visit [facility] OB [address] [place] [address] Selin No PA [address] [place] [address] [place] [address] documented as of this encounter Visit Diagnoses Not on filedocumented in this encounter Care Teams Certified Flight Instructor Relationship Specialty Start Date End Date Pramod Roach MD [address] [place] [address] [place] [address] PCP - General Family Medicine 03/01/24 documented as of this encounter
--- OUTSIDE RECORDS SUMMARY | 2024-10-25 12:33 | XMS_ITS | Clinical Summary ---
Author Organization [facility] Address [address] [place] [address] Phone Care Team Providers Care Park Recreation Manager Name Role Phone Unavailable Primary Care Provider Unavailabl e Social History Tobacco Use Types Packs/Day Years Used Date Smoking Tobacco: Never Assessed Comments Unknown Sex and Gender Information Value Date Recorded Sex Assigned at Not on file Legal Sex Female 1:41 PM EST Gender Identity Not on file Sexual Orientation Not on file Plan of Treatment Health Maintenance Due Date Last Done Comments Bone Density Scan 1955 CT Colonography 1955 Colonoscopy 1955 Colorectal Cancer Screening 1955 FIT-DNA (Cologuard) 1955 FIT 1955 Lipid Panel 1955 Medicare Annual Wellness Vis it (AWV) 1955 Sigmoidoscopy 1955 Hepatitis C Screening 12/25/1973 DTaP/Tdap/Td Vaccines (1 - Tdap) 12/25/1977 Mammogram 1995 Pneumococcal Vaccine (1 of 1 - PCV) 12/25/2005 Zoster Vaccines (1 of 2) 12/25/2005 COVID-19 Vaccine ( - 2023-2 5 season) 2023 Influenza Vaccine (#1) 2024 RSV High Risk: (Elderly (60+ ) or Population) (1 - 1-dose 75+ series) 12/25/2030 HIB Vaccines Aged Out No longer eligi ble based on patient's age to complete this topic HPV Vaccines (No Doses Required) Completed Hepatitis A Vaccines Aged Out No long er eligible based on patient's age to complete this topic Hepatitis B Vaccines Aged Out No long er eligible based on patient's age to complete this topic IPV Vaccines Aged Out No longer eligi ble based on patient's age to complete this topic Meningococcal Vaccine Aged Out No rosemary jayne eligible based on patient's age to complete this topic Rotavirus Vaccines Aged Out No longer eligible based on patient's age to complete this topic Insurance [employer]
--- OUTSIDE RECORDS SUMMARY | 2024-10-25 12:33 | XMS_ITS | Clinical Summary ---
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 Active atorvastatin (LIPITOR) 10 mg tablet Take 10 mg by mouth daily. Active pioglitazone (ACTOS) 30 mg tablet Take 30 mg by mouth daily. Active hydroCHLOROthia zide (HYDRODIURIL) 12.5 mg tablet Take 12.5 mg by mouth daily. Active omeprazole (PriLOSEC) 40 mg capsule Take 40 mg by mouth every morning before breakfast. Active quinapril (ACCUPRIL) 40 mg tablet Take 40 mg by mouth daily. Active tamoxifen (NOLVADEX) 20 mg chemo tablet Take 20 mg by mouth daily. Active meloxicam (MOBIC) 15 mg tablet Take 15 mg by mouth daily as needed for pain. Active aspirin 81 mg Take 81 mg by mouth daily. Active estradiol (ESTRACE) 1 mg tablet Take 1 mg by mouth daily. Active senna (SENNA LAXATIVE) 8.6 mg tablet Take 17.2 mg by mouth daily. DO NOT TAKE IF HAVE DIARRHEA Active polyethylene glycol (MIRALAX) 17 gram packet Take 17 g by mouth daily as needed (CONSTIPATION ). Active HYDROcodone-maxine taminophen (NORCO) 5-325 mg per tablet Take 2 tablets by mouth every 6 (six) hours as needed for pain. Active Social History Tobacco Use Types Packs/Day Years Used Date Smoking Tobacco: Never Assessed Childcare Answer Date Recorded Childcare Unknown 09/18/2018 Employment Answer Date Recorded Employment Unknown 09/18/2018 Purpose - Life Answer Date Recorded Purpose and direction in life Unknown Comments Unknown Sex and Gender Information Value Date Recorded Sex Assigned at Not on file Legal Sex Female 11:21 AM EDT Gender Identity Not on file Sexual Orientation Not on file Last Filed Vital Signs Vital Sign Reading Time Taken Comments Blood Pressure 120/78 09/08/2018 8:21 AM EDT Pulse 74 09/08/2018 8:21 AM EDT Temperature 37 C (98.6 F) 09/08/2018 8:21 AM EDT Respiratory Rate 16 09/08/2018 8:21 AM EDT Oxygen Saturation 99% 09/06/2018 4:13 PM EDT Inhaled Oxygen Concentration - - Weight - - Height - - Body Mass Index - - Plan of Treatment Health Maintenance Due Date Last Done Comments Depression Screening 1967 Tobacco Screening 1967 Adult BMI Screening 12/25/1973 DTaP,Tdap and Td Vaccines (1 - Tdap) 12/25/1974 Zoster (Shingles) Vaccine (1 of 2) 12/25/2005 Fall Risk Screening 12/25/2020 Influenza Vaccine 12/17/2024 Medical Devices Not on file Insurance ANTH Care Teams Fruit Or Nut Farmworker Relationship Specialty Start Date End Date No Pcp, [place] [address] PCP - General Family Medicine 08/25/18
--- OUTSIDE RECORDS SUMMARY | 2024-10-25 12:33 | XMS_ITS | Encounter Summary ---
Author Organization [facility] Address [address] [place] [address] Phone Care Team Providers Care Metal Burnisher Name Role Phone Unavailable Primary Care Provider Unavailabl e Encounter Details Date Type Department Care Team (Late st Contact Info) Description 03/02/2024 Scanned Document [facility] [address] [place] [id number] Scanning, Generic Provider Social History Tobacco Use Types Packs/Day Years Used Date Smoking Tobacco: Never Assessed Comments Unknown Sex and Gender Information Value Date Recorded Sex Assigned at Not on file Legal Sex Female 1:41 PM EST Gender Identity Not on file Sexual Orientation Not on file documented as of this encounter Plan of Treatment Not on file documented as of this encounter Procedures Procedure Name Priority Date/Time Associated Diagnosis Comments STRESS TEST - ONBASE SCAN 03/02/2024 documented in this encounter Results * Stress Test - Onbase Scan (03/02/2024) Narrative 03/02/2024 Ordered by an unspecified provider. us Generic Provider Scanning CV STRESS PROCEDURES F inal Result documented in this encounter Visit Diagnoses Not on filedocumented in this encounter
[2024-10-29 14:08] LABS: Age Gdln ACOG Testing Note (.); Pap IG (Image Guided) Note (.)
== END 2024-10-25 12:31 | disposition home or self-care (01) ==
LOC: LAB 12:30
PROVIDERS: PCP Family Medicine; Visit Provider Physician Assistant
DX: Z01.419 Encounter for gynecological examination (general) (routine) without abnormal findings (principal)
CPT/HCPCS: 88175

== ENCOUNTER 2024-11-07 06:54 | Outpatient (OUT) | payer MEDICARE, SELFPAY ==
--- OUTSIDE RECORDS SUMMARY | 2024-10-25 10:00 | XMS_ITS | Encounter Summary ---
Author Organization [facility] Address [address] [address] Care Team Providers Care Hat Finishing Materials Preparer Name Role Phone Pramod Roach MD Primary Care Provider [phone] Reason for Visit * Reason Comments Well Women Visit Encounter Details Date Type Department Care Team ([facility] st Contact Info) Description 10/25/2024 10:00 AM EDT Office Visit [facility] [address] [place] [address] Selin No PA [address] [facility] [address] [place], [facility] Well woman exam with routine gynecological exam; Breast cancer screening by mammogram; Postmenopausal state Social History Tobacco Use Types Packs/Day Years Used Date Smoking Tobacco: Never Smokeless Tobacco: Never Alcohol Use Standard Drinks/Week Comments Never 0 (1 standard drink = 0.6 oz pur e alcohol) Comments No Sex and Gender Information Value Date Recorded Sex Assigned at Not on file Legal Sex Female 6:59 PM EDT Gender Identity Not on file Sexual Orientation Not on file documented as of this encounter Last Filed Vital Signs Vital Sign Reading Time Taken Comments Blood Pressure 120/80 10/25/2024 10:24 AM EDT Pulse - - Temperature - - Respiratory Rate - - Oxygen Saturation - - Inhaled Oxygen Concentration - - Weight 74.3 kg (163 lb 12.8 oz) 025 10:24 AM EDT Height - - Body Mass Index 33.08 06/07/2024 9:29 AM EST documented in this encounter Progress Notes * LOREN Sharma - 10/25/2024 10:00 AM EDT Reason for Appointment: Patient ID: Leslee Nevarez is a 68 y.o. female who presents for Well Women Visit Patient presents today for Annual Exam. MEDICATIONS Current Outpatient Medications Medication Instructions atorvastatin (LIPITOR) 10 mg, Daily cyanocobalamin (VITAMIN B-12) 500 mcg, Daily glimepiride (AMARYL) 1 mg, Daily before breakfast hydroCHLOROthiazide (HYDRODIURIL) 12.5 mg, Daily lisinopril 20 MG tablet Daily Magnesium Glycinate 100 mg, Daily methIMAzole (TAPAZOLE) 5 mg, Oral, Daily metoprolol succinate XL (TOPROL-XL) 25 mg, Oral, Daily omeprazole (PRILOSEC) 40 mg, Daily before breakfast pioglitazone (ACTOS) 30 mg, Daily ALLERGIES No Known Allergies PROBLEMS Active Ambulatory Problems Diagnosis Date Noted Thyrotoxicosis, unspecified without thyrotoxic crisis or storm 02/20/2024 Resolved Ambulatory Problems Diagnosis Date Noted No Resolved Ambulatory Problems Past Medical History: Diagnosis Date Anemia Breast cancer (HCC) DM type 2 (diabetes mellitus, type 2) (HCC) GERD (gastroesophageal reflux disease) Hypercalcemia Hyperlipidemia Hypertension Leukocytosis Ovarian tumor Stage 3 chronic kidney disease, unspecified whether stage 3a or 3b CKD (CMS-HCC) Thyrotoxicosis with toxic multinodular goiter without thyrotoxic crisis or storm HISTORY PAST MEDICAL HISTORY SOCIAL HISTORY Past Medical History: Diagnosis Date Anemia Breast cancer (HCC) DM type 2 (diabetes mellitus, type 2) (HCC) GERD (gastroesophageal reflux disease) Hypercalcemia Hyperlipidemia Hypertension Leukocytosis Ovarian tumor Stage 3 chronic kidney disease, unspecified whether stage 3a or 3b CKD (CMS-HCC) Thyrotoxicosis with toxic multinodular goiter without thyrotoxic crisis or storm Thyrotoxicosis, unspecified without thyrotoxic crisis or storm Social History Tobacco Use Smoking status: Never Smokeless tobacco: Never Substance Use Topics Alcohol use: Never Drug use: Not on file FAMILY HISTORY Family History Problem Relation Name Age of Onset Stroke Mother Diabetes Mother COPD Father Diabetes Other Cancer Other Other (high blood pressure) Other Heart disease Other SURGICAL HISTORY Past Surgical History: Procedure Laterality Date CERVICAL FUSION COLONOSCOPY HYSTERECTOMY LITHOTRIPSY OVARY SURGERY TONSILLECTOMY REVIEW OF SYSTEMS Review of Systems: Review of Systems Constitutional: Negative. HENT: Negative. Eyes: Negative. Respiratory: Negative. Cardiovascular: Negative. Gastrointestinal: Negative. Genitourinary: Negative. Musculoskeletal: Negative. Skin: Negative. Neurological: Negative. All other systems reviewed and are negative. Hematological: Negative. Endocrine: Negative. Allergic/Immunologic: Negative. OBJECTIVE Objective: Physical Exam Constitutional: Appearance: Normal appearance. She is well-developed. Genitourinary: Vulva normal. Vaginal cuff intact. Right Adnexa: not tender and no mass present. Left Adnexa: not tender and no mass present. Cervix is absent. No cervical discharge. Uterus is absent. Breasts: Breasts are soft. Right: Normal. Left: Normal. HENT: Head: Normocephalic. Nose: Nose normal. Mouth/Throat: Mouth: Mucous membranes are moist. Cardiovascular: Rate and Rhythm: Normal rate and regular rhythm. Pulmonary: Effort: Pulmonary effort is normal. Abdominal: General: Bowel sounds are normal. There is no distension. Palpations: Abdomen is soft. Tenderness: There is no abdominal tenderness. There is no guarding or rebound. Musculoskeletal: General: No swelling. Normal range of motion. Cervical back: Normal range of motion. Right lower leg: No edema. Left lower leg: No edema. Neurological: General: No focal deficit present. Mental Status: She is alert and oriented to person, place, and time. Skin: General: Skin is warm and dry. Psychiatric: Mood and Affect: Mood normal. Behavior: Behavior normal. Vitals and nursing note reviewed. Exam conducted with a resource teacher present. Vitals: Estimated body mass index is 33.08 kg/m?? as calculated from the following: Height as of 06/07/24: 4' 11 . Weight as of this encounter: 163 lb 12.8 oz. BP: 120/80 No LMP recorded. Patient has had a hysterectomy. ASSESSMENT & PLAN ICD-10-CM 1. Well woman exam with routine gynecological exam Z01.419 THIN PREP TIS PAP AND HR HPV DNA 2. Breast cancer screening by mammogram Z12.31 Bilateral screening mammogram Bilateral screening mammogram 3. Postmenopausal state Z78.0 DEXA bone density Annual: Patient presents today for an annual exam. Patient states she is doing well and has no complaints. Pap was obtained without difficulty and patient. Patient did have Diagnostic Mammogram in August 2024 and that she did have a Dexa scan last year. Orders Placed This Encounter Procedures Bilateral screening mammogram DEXA bone density Follow Up: Patient is to return in one year for annual unless needed otherwise. Documented by Estrellita Arias LPN on behalf of: LOREN Sharma documented in this encounter Plan of Treatment Upcoming Encounters Date Type Department Care Team (Late st Contact Info) Description 12/06/2024 10:00 AM EDT Office Visit [facility] [address] [place] [address] Nae Argueta MD [address] [place] [address] 10/30/2025 10:00 AM EDT Office Visit [facility] [address] [place] [address] Selin No PA [address] [place] [address] Scheduled Orders Name Type Priority Associated Diagnoses Orde r Schedule THIN PREP TIS PAP AND HR HPV DNA Pathology and Cytology Routine Well woman exam with routine gynecological exam Ordered: 10/25/2024 documented as of this encounter Visit Diagnoses Diagnosis Well woman exam with routine gynecological exam Routine gynecological examination Breast cancer screening by mammogram Postmenopausal state Asymptomatic postmenopausal status (age-related) (natural) documented in this encounter Care Teams Hat Finishing Materials Preparer Relationship Specialty Start Date End Date Pramod Roach MD [address] [place] [address] [place] [address] PCP - General Family Medicine 03/01/24 documented as of this encounter
--- OUTSIDE RECORDS SUMMARY | 2024-11-07 06:58 | XMS_ITS | Encounter Summary ---
Author Organization [facility] Address [address] [place] [address] Care Team Providers Care Eyeglass Assembler Name Role Phone Pramod Roach MD Primary Care Provider [phone] Encounter Details Date Type Department Care Team (Late Contact Info) Description 10/25/2024 Bamboo flowsheet [facility] [address] [facility] [address] Selin No PA [address] [facility] [address] [facility] [address] [place], [place] [address] Social History Tobacco Use Types Packs/Day Years [...] [facility] [address] [place] [address] Nae Argueta MD [address] [place] [address] 10/30/2025 10:00 AM EDT Office Visit [facility] [address] [facility] [place] [address] Selin No PA [address] [place] [address] [place] [address] documented as of this encounter Visit Diagnoses Not on filedocumented in this encounter Care Teams Eyeglass Assembler Relationship Specialty Start Date End Date Pramod Roach MD [address] [place] [address] [place] [address] PCP - General Family Medicine 03/01/24 documented as of this encounter
--- OUTSIDE RECORDS SUMMARY | 2024-11-07 06:59 | XMS_ITS | CCD ---
Author Organization [facility] Care Team Providers Care Artificial Stone Setter Name Role Phone Selin Jean Attending Unavailable Ted, Selin Pastor Attending Unavailable CHUCHO HONEYCUTT Attending Unavailable Ted, Selin Pastor Attending Unavailable UNKNOWN, PROVIDER Admitting Unavailable SELF, REFERRED Referring Unavailable SELF, REFERRED Primary Care Unavailable CHIP WHARTON Attending Unavailable [facility] Procedure Practitioner Unavailab le UNKNOWN, PROVIDER Surgeon Unavailable Lyn, Rin Unavailable LYN, DR GAR Admitting Unavailable GIRDANE, DR GAR Attending Unavailable GIRVIN, DR GAR [...] Unavailable PAY ., DR DUNBAR Attending Unavailable GIRDANE, DR GAR Primary Care Unavailable REGIS ., KEV Consulting Unavailable NEFCY, BUDDY Consulting Unavailable GIRDANE, DR GAR Admitting Unavailable GIRVIN, DR GAR Attending Unavailable GIRVIN, DR GAR Consulting Unavailable GIRVIN, DR GAR Primary Care Unavailable GIRVIN, DR GAR Admitting Unavailable GIRVIN, DR GAR Primary Care Unavailable GIRVIN, DR GAR Attending Unavailable GIRDANE, DR GAR Consulting Unavailable DO Rin Nicholson Primary Care Provider DO Rin Nicholson Attending Provider Eddie Urias MD Attending Provider Rin Nicholson DO Primary Care Provider [phone] Rin Nicholson DO Referring Provider Rin Nicholson MD Primary Care Provider Barbara Franklin MD Attending Provider Rin Nicholson DO Primary Care Provider [phone] Rin Nicholson DO Primary Care Provider [phone] Barbara Franklin MD Attending Provider Jacklyn Heard MD Attending Provider [phone] Rin Nicholson DO Primary Care Provider Rin Nicholson DO Attending Provider Asaad, Imad Admitting Unavailable Asaad, Imad Attending Unavailable Rin Nicholson Primary Care Unavailable Barbara Franklin Admitting Unavailable Barbara Franklin Attending Unavailable Rin Nicholson Primary Care Unavailable Barbara Franklin Admitting Unavailable Barbara Franklin Attending Unavailable Rin Nicholson Primary Care Unavailable Eddie Urias Attending Unavailable Rin Nicholson Referring Unavailable Rin Nicholson Primary Care Unavailable Eddie Urias Admitting Unavailable Asaad, Imad Admitting Unavailable Orquidea, Imad Attending Unavailable Rin Nicholson Primary Care Unavailable Rin Nicholson Primary Care Unavailable Asaad, Imad Admitting Unavailable Orquidea, Jacklyn Attending Unavailable Rin Nicholson Attending Unavailable Rin Nicholson Admitting Unavailable Rin Nicholson Primary Care Unavailable Rni Nicholson MD Primary Care Provider NAE ARGUETA Attending Unavailable SELIN NO Attending Unavailable NAE ARGUETA Attending Unavailable NAE ARGUETA Referring Unavailable Medications Current Medications Medication Drug Class(es) Dates Sig (Normalized) Sig (Original) acetaminophen 500 mg oral tablet (20 sources) Start: 10-04-2023 End: 10-25-2024 take 1 tablet by mouth every four hours as needed Acetaminophen (Tylenol Extra Strength) 500 mg tablet Active 500 MG PO Every 4 hours as needed October 04, 2023 12:00am Tylenol prn Acti ve atorvastatin 10 mg oral tablet (20 sources) HMG-CoA Reductase Inhibitor Start: 06-05-2024 take 1 tablet by mouth once daily Atorvastatin 10 mg tablet Active 10 MG PO Daily June 05, 2024 11:02am Start: 02-08-2024 End: 06-05-2024 take 1 tablet by mouth once daily Atorvastatin 10 mg tablet Discontinued 0 .ROUTE .COMPLEX 90 February 08, 2024 3:16pm June 05, 2024 11:03am Take 1 tablet by mouth once daily Start: 04-06-2017 End: 02-08-2024 take 1 tablet by mouth once daily Atorvastatin 10 mg tablet Discontinued 10 MG PO Daily April 06, 2017 1:00am February 08, 2024 3:16pm blood sugar diagnostic (OneT ouch Ultra Test) (11 sources) Start: 10-04-2023 blood sugar di agnostic (OneTouch Ultra Test) Active .Route October 04, 2023 12:00am USE TO TEST TWICE A DAY DIRECTED Start: 10-04-2023 blood sugar di agnostic (OneTouch Ultra Test) Active .Route October 03, 2023 11:00pm USE TO TEST TWICE A DAY DIRECTED Start: 10-04-2023 blood sugar di agnostic (OneTouch Ultra Test) Active .ROUTE October 03, 2023 11:00pm USE TO TEST TWICE A DAY DIRECTED blood-glucose meter (Glucome ter 3) (11 sources) Start: 10-04-2023 blood-glucose meter (Glucometer 3) Active .Route October 04, 2023 12:00am UAD/ One Touch Glucometer Start: 10-04-2023 blood-glucose meter (Glucometer 3) Active .Route October 03, 2023 11:00pm UAD/ One Touch Glucometer Start: 10-04-2023 blood-glucose meter (Glucometer 3) Active .ROUTE October 03, 2023 11:00pm UAD/ One Touch Glucometer Cobalamin Combinations (COBALAMINE COMBINATIONS PO) (9 sources) End: 10-25-2024 Cobalamin Combinations (COBALAMINE COMBINATIONS PO) Take by mouth 10/25/2024 Discontinued Cobalamin Combin ations (COBALAMINE COMBINATIONS PO) Take by mouth Active folic acid 0.4 mg / vitamin b12 0.5 mg oral tablet (20 sources) Vitamin B12 Start: 02-01-2024 take 1 tablet by mouth three times weekly Vitamin Y78-Gwmwv Acid 500-400 mcg tablet Active 1 TAB PO .COMPLEX February 01, 2024 2:47pm 1 tab orally three times a week; Start: 10-17-2023 End: 02-01-2024 Vitamin W19-Tzgqf Acid 500-4 00 mcg tablet Discontinued 1 TAB PO .COMPLEX October 17, 2023 12:16pm February 01, 2024 2:48pm 1 tab orally Tue-Tuesday; Start: 05-31-2019 End: 10-17-2023 take 1 tablet by mouth once daily Vitamin R32-Mgydl Acid 500-400 mcg tablet Discontinued 1 TAB PO Daily October 04, 2023 7:48am October 17, 2023 12:17pm magnesium glycinate 100 mg oral tablet (3 sources) take 1 capsule by mouth once daily Magnesium Glycinate 100 MG capsule Take 100 mg by mouth Daily Active Magnesium Glycinate 100 mg magnesium capsule (7 sources) Start: 06-06-2024 take 1 capsule by mouth once daily Magnesium Glycinate 100 mg magnesium capsule Active 100 MG PO Daily June 06, 2024 1:00am Start: 06-06-2024 take 1 capsule by mo uth once daily Magnesium Glycinate 100 mg magnesium capsule Active 100 MG PO Daily June 06, 2024 12:00am methIMAzole 5 mg oral tablet (20 sources) Thyroid Hormone Synthesis Inhibitor Start: 03-06-2024 End: 03-06-2025 take 1 tablet by mouth once daily methIMAzole (Tapazole) 5 MG tablet Indications: Thyrotoxicosis with diffuse 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 Take 1 tablet (5 mg) by mouth Daily 90 tablet 1 03/06/2024 03/06/2025 Active Start: 02-01-2024 End: 06-05-2024 take 1 tablet by mouth once Methimazole 10 mg tablet Discontinued 10 MG PO Once February 01, 2024 12:00am June 05, 2024 10:59am Start: 01-24-2024 End: 03-06-2024 take 1 tablet by mouth twice daily methIMAzole (Tapazole) 10 MG tablet Indications: Thyrotoxicosis, unspecified without thyrotoxic crisis or storm (CMS/HCC) Take 1 tablet by mouth twice daily 60 tablet 3 01/24/2024 03/06/2024 Discontinued (Dose adjustment) 24 hr metoprolol succinate 25 mg extended release oral tablet (20 sources) beta-Adrenergic Isai Start: 02-01-2024 take 1 tablet by mouth once daily metoprolol succinate XL (Toprol-XL) 25 MG 24 hr tablet Indications: Thyrotoxicosis, unspecified without thyrotoxic crisis or storm Take 1 tablet by mouth once daily 90 tablet 1 05/17/2024 Active take 1 tablet by tea th every twenty-four hours metoprolol succinate XL (Toprol-XL) 25 M G 24 hr tablet Take by mouth Do not crush or chew. Active omeprazole 40 mg delayed release oral capsule (20 sources) Proton Pump Inhibitor Start: 04-06-2017 End: 05-01-2024 take 1 capsule by mouth once daily Omeprazole 40 mg capsule,delayed release(DR/EC) Active 40 MG PO Daily May 01, 2024 10:00am One Touch Glucometer glucometer (16 sources) Start: [...] Peroxisome Proliferator Receptor gamma Agonist, Thiazolidinedione Start: 06-05-2024 End: 08-27-2024 take 1 tablet by mouth once daily Pioglitazone 30 mg tablet Active 30 MG PO Daily August 27, 2024 8:37am Start: 12-30-2023 End: 06-05-2024 take 1 tablet by mouth once daily Pioglitazone 30 mg tablet Discontinued 0 .ROUTE .COMPLEX December 30, 2023 10:27am June 05, 2024 11:03am Take 1 tablet by mouth once daily Start: 04-06-2017 End: 12-30-2023 take 1 tablet by mouth once daily Pioglitazone 30 mg tablet Discontinued 30 MG PO Daily April 06, 2017 1:00am December 30, 2023 10:27am predniSONE 20 mg oral tablet (3 sources) [...] Active vitamin b12 0.5 mg oral tablet (14 sources) Vitamin B12 take 1 tablet by mouth once daily cyanocobalamin (Vitamin B-12) 500 MCG tablet Take 500 mcg by mouth Daily Active take 1 tablet by mouth every wee k Vitamin B-12 500 MCG 1 tablet Orally five days per week Active take 1 tablet by mouth every wee k Vitamin B-12 500 MCG 1 tablet Orally five days per week Active Completed/Discontinued Medications Medication Drug Class(es) Dates Sig (Normalized) Sig (Original) amoxicillin 875 mg oral tablet (11 sources) Penicillin-class Antibacterial Start: 07-18-2023 End: 10-04-2023 take 1 tablet by mouth twice daily Amoxicillin 875 mg tablet Discontinued 875 MG PO Twice daily 20 July 18, 2023 12:00am October 04, 2023 7:50am cyclobenzaprine hydrochloride 5 mg oral tablet (9 sources) Muscle Relaxant Start: 05-29-2019 Cyclobenzaprine HCl 5 MG 1 or 2 tablets by mouth qd hs May, Not-Taking empagliflozin 10 mg oral tablet (20 sources) Sodium-Glucose Cotransporter 2 Inhibitor Start: 03-01-2024 End: 06-05-2024 take 1 tablet by mouth in the morning Empagliflozin (Jardiance) 10 mg tablet Discontinued 0 .ROUTE .COMPLEX March 30, 2024 8:55am June 05, 2024 11:03am TAKE 1 TABLET BY MOUTH IN THE MORNING Start: 02-03-2024 End: 10-25-2024 take 1 tablet by mouth once daily in the morning Empagliflozin (Jardiance) 10 mg tablet Discontinued 10 MG PO Every morning June 05, 2024 11:02am June 05, 2024 11:27am glimepiride 1 mg oral tablet (20 sources) Sulfonylurea Start: 10-17-2023 End: 06-05-2024 take 1 tablet by mouth once daily at breakfast Glimepiride 1 mg tablet Discontinued 1 MG PO .COMPLEX 90 December 30, 2023 10:12am June 05, 2024 10:58am 1 mg orally take 1 tablet by mouth once daily with breakfast or FIRST MEAL OF THE DAY; Start: 10-04-2023 End: 10-17-2023 take 1 tablet by mouth once daily at breakfast Glimepiride 1 mg tablet Discontinued 0 .ROUTE .COMPLEX 90 October 04, 2023 7:54am October 17, 2023 11:58am take 1 tablet by mouth once daily with breakfast or FIRST MEAL OF THE DAY Start: 04-12-2023 End: 10-04-2023 take 1 tablet by mouth once daily at breakfast Glimepiride 1 mg tablet Discontinued 1 MG PO Daily October 04, 2023 12:00am October 04, 2023 7:54am with breakfast or the first main meal of the day hydroCHLOROthiazide 12.5 mg oral tablet (20 sources) Thiazide Diuretic Start: 10-17-2023 End: 06-06-2024 take 1 tablet by mouth once daily Hydrochlorothiazide 12.5 mg tablet Discontinued 12.5 MG PO Daily October 17, 2023 11:58am June 06, 2024 10:48am Start: 08-22-2023 End: 10-17-2023 take 1 tablet by mouth once daily Hydrochlorothiazide 12.5 mg tablet Discontinued 0 .ROUTE .COMPLEX 90 August 22, 2023 5:44pm October 17, 2023 11:58am take 1 tablet by mouth once daily Start: 04-06-2017 End: 08-22-2023 take 1 tablet by mouth once daily Hydrochlorothiazide 12.5 mg tablet Discontinued 12.5 MG PO Daily April 06, 2017 1:00am August 22, 2023 5:44pm lisinopril 20 mg oral tablet (20 sources) Angiotensin Converting Enzyme Inhibitor Start: 06-04-2022 End: 11-21-2023 take 1 tablet by mouth once daily Lisinopril 20 mg tablet Discontinued 20 MG PO Daily October 04, 2023 12:00am November 21, 2023 10:34am metFORMIN hydrochloride 1000 mg oral tablet (20 sources) Biguanide Start: 10-04-2023 End: 10-17-2023 take 0.5 tablet by mouth once daily at bedtime, then take 1 tablet by mouth once daily at bedtime Metformin 1,000 mg tablet Discontinued 0 PO Daily at bedtime October 04, 2023 7:47am October 17, 2023 12:16pm take 1/2 of a 1000 MG tablet orally daily at bedtime; Start: 04-06-2017 End: 10-04-2023 take 1 tablet by mouth twice daily Metformin 1,000 mg tablet Discontinued 1000 MG PO Twice daily April 06, 2017 1:00am October 04, 2023 7:54am take 0.5 tablet by m outh once daily at bedtime metFORMIN HCl 1000 mg 1/2 tablet Orally qd at bedtime for 90 days Active metFORMIN HCl 10 00 mg TAKE 1 TABLET TWICE A DAY WITH MEALS Active One Touch Ultra Blue in Vitr o Sript (10 sources) Start: 05-24-2024 End: 05-24-2024 One Touch Ultra Blue in Vitr o Sript Discontinued 0 .Route .MEDSUPPLY May 24, 2024 1:00am May 24, 2024 10:43am use 1 strip to check glucose twice daily as directed Start: 05-24-2024 End: 05-24-2024 One Touch Ultra Blue in Vitr o Sript Discontinued 0 .Route .MEDSUPPLY May 24, 2024 12:00am May 24, 2024 9:43am use 1 strip to check glucose twice daily as directed quinapril 40 mg oral tablet (14 sources) Angiotensin Converting Enzyme Inhibitor Start: 04-06-2017 End: 10-04-2023 take 1 tablet by mouth once daily Quinapril 40 mg tablet Discontinued 40 MG PO Daily April 06, 2017 1:00am October 04, 2023 7:49am tamoxifen 20 mg oral tablet (20 sources) Estrogen Agonist/Antagonist Start: 04-06-2017 End: 06-02-2020 take 1 tablet by mouth once daily Tamoxifen 20 mg tablet Discontinued 20 MG PO Daily January 30, 2018 9:57am June 02, 2020 4:05pm Problems Active Problems Problem Classification Problem Date Documented Date Episodic/Chronic Abdominal pain (20 sources) Right upper quadrant pain; 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: [Right upper quadrant pain] Onset: 06-28-2024 02-03-2024 Episodic Cancer of breast (20 sources) Carcinoma in situ of breast; 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] Onset: 06-28-2024 Chronic Comment on above: 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, status post lumpectomy x2, sentinel lymph node biopsy and adjuvant radiotherapy that concluded on 08-21-14 Chronic kidney disease (20 sources) Chronic kidney disease stage 3; 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: [Chronic kidney disease, stage 3 (moderate)] Onset: 05-28-2024 02-01-2024 Chronic Chronic kidney disease (2 sources) Chronic kidney disease; 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: [Chronic kidney disease, stage 3b] Onset: 05-28-2024 Deficiency and other anemia (16 sources) Anemia in chronic kidney disease; 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: [Anemia in chronic kidney disease] Chronic Deficiency and other anemia (1 source) Anemia in chronic kidney disease; 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: [Anemia in chronic kidney disease] Onset: 05-28-2024 Chronic Deficiency and other anemia (3 sources) Anemia, unspecified; 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: [ANEMIA UNSPECIFIED] Onset: 08-05-2022 Episodic Deficiency and other anemia (11 sources) Anemia; 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: [Anemia, unspecified] 10-17-2023 Episodic Diabetes mellitus with complications (20 sources) Type 2 diabetes mellitus; 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: [Type 2 diabetes mellitus with diabetic chronic kidney disease] Onset: 05-28-2024 02-01-2024 Chronic Diabetes mellitus without complication (20 [...] (primary) hypertension] Chronic Fluid and electrolyte disorders (20 sources) Hypokalemia; 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: [Hypokalemia] 10-17-2023 Episodic Genitourinary symptoms and ill-defined conditions (2 sources) Nocturia; 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: [NOCTURIA] Onset: 08-05-2022 Episodic Hypertension with complications and secondary hypertension (20 sources) Hypertensive renal disease; 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: [Hypertensive chronic kidney disease with stage 1 through stage 4 chronic kidney disease, or unspecified chronic kidney disease] Onset: 05-28-2024 02-01-2024 Chronic Other inflammatory condition of skin (3 sources) Pruritus, unspecified; 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: [Pruritus] Onset: 09-13-2024 09-03-2024 Episodic Comment on above: left breast Other liver diseases (11 sources) Steatosis of liver; 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: [Fatty (change of) liver, not elsewhere classified] 02-03-2024 Chronic Other liver diseases (19 sources) Fatty (change of) liver, not elsewhere classified; 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: [Other chronic nonalcoholic liver disease] Onset: 06-28-2024 02-03-2024 Chronic Other liver diseases (6 sources) Lesion of liver; 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: [Liver disease, unspecified] 06-14-2024 Chronic Other liver diseases (10 sources) Liver disease, unspecified; 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: [Other specified disorders of liver] Onset: 06-28-2024 06-14-2024 Chronic Other liver diseases (1 source) Abnormal levels of other serum enzymes; 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: [Abnormal levels of other serum enzymes] Onset: 08-10-2024 Episodic Other nervous system disorders (16 sources) Skin sensation disturbance; 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: [Paresthesia of skin] Episodic Other non-traumatic joint disorders (2 sources) Pain in right shoulder Episodic Other nutritional; endocrine; and metabolic disorders (3 sources) Hypercalcemia; 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: [Hypercalcemia] Chronic Other nutritional; endocrine; and metabolic disorders (1 source) Hypercalcemia Chronic Other nutritional; endocrine; and metabolic disorders (7 sources) Hypomagnesemia; 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: [Hypomagnesemia] 06-06-2024 Chronic Other nutritional; endocrine; and metabolic disorders (6 sources) Hypomagnesemia; 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: [Disorders of magnesium metabolism] 06-06-2024 Chronic Other nutritional; endocrine; and metabolic disorders (3 sources) Abnormal weight gain; 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: [ABNORMAL WEIGHT GAIN] Onset: 08-05-2022 Episodic Other screening for suspected conditions (not mental disorders or infectious disease) (20 sources) Mammography abnormal; 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: [Other abnormal and inconclusive findings on diagnostic imaging of breast] Onset: 08-05-2022 Episodic Residual codes; unclassified (2 sources) Postmenopausal state; 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: [Asymptomatic menopausal state] 10-25-2024 Episodic Thyroid disorders (20 sources) Hyperthyroidism; 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: [Thyrotoxicosis, unspecified without thyrotoxic crisis or storm] Onset: 02-20-2024 10-17-2023 Chronic Unclassified (2 sources) COUGH, UNSPECIFIED; 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: [COUGH, UNSPECIFIED] Onset: 05-03-2022 Unclassified (1 source) CONTACT W/AND (SUSP) EXPOS COVID-19; 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: [CONTACT W/AND (SUSP) EXPOS COVID-19] Onset: 05-03-2022 Past or Other Problems Problem Classification Problem Date Documented Da te Episodic/Chronic Nonspecific chest pain (20 sources) Chest pain; 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: [Chest pain, unspecified] Onset: 03-02-2024 02-03-2024 Episodic Nutritional deficiencies (20 sources) Deficiency of other specified B group vitamins; 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: [Cobalamin deficiency] Onset: 01-25-2022 Episodic Other aftercare (1 source) Other boiler house mechanic (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) drug therapy; 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: [OTH LPN CMA CURRENT DRUG THERAPY] Onset: 05-03-2022 Episodic Other aftercare (1 source) FPC (current) use of oral hypoglycemic drugs; 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: [INTERMEDIATE USE ORAL HYPOGLYCEMIC DX] Onset: 05-03-2022 Episodic Pneumonia (except that caused by tuberculosis or sexually transmitted disease) (1 source) Bronchopneumonia, unspecified organism; 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: [BRONCHOPNEUMONIA UNS ORGANISM] Onset: 05-03-2022 Episodic Unclassified (1 source) COUGH, UNSPECIFIED; 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: [COUGH, UNSPECIFIED] Onset: 04-30-2022 Results Test Name Value Interpretation Reference Range Facility IGP,APTIMA HPV,AGE GDLNon AGE GDLN ACOG TESTING Note . [facility] Comment on above: TESTS RESULT FLAG UN ITS REF RANGE LAB Clinician Provided Cytology Information Source.............Vagina No. of containers..01 ThinPrep Vial Age Algo ACOG Linda... Note 01 <21 or >65 or no age provided FLAG LEGEND: L-Low Normal,H-High Normal,LL-Alert Low,HH-Alert High <-Panic Low,>-Panic High,A-Abnormal,AA-Critical Abnormal Performed at: 01 =G [facility] [address] [facility] [address] Vicenta Urbina MD, PAP IG (IMAGE GUIDED) Note . [facility] Comment on above: TESTS RESULT FLAG UN ITS REF RANGE LAB DIAGNOSIS: 02 NEGATIVE FOR INTRAEPITHELIAL LESION OR MALIGNANCY. CELLULAR CHANGES ASSOCIATED WITH ATROPHY ARE PRESENT. Specimen adequacy: 02 Satisfactory for evaluation. Performed by: 02 Tiffany Tomas Switchboard And Control Room Operator ([facility]) . 02 Note: Note 02 The Pap smear is a screening test designed to aid in the detection of premalignant and malignant conditions of the uterine cervix. It is not a diagnostic procedure and should not be used as the sole means of detecting cervical cancer. Both false-positive and false-negative reports do occur. Test Methodology: Note 02 This liquid based ThinPrep(R) pap test was screened with the use of an image guided system. FLAG LEGEND: L-Low Normal,H-High Normal,LL-Alert Low,HH-Alert High <-Panic Low,>-Panic High,A-Abnormal,AA-Critical Abnormal Performed at: 02 WB [facility] [address] [facility] [address] Vicenta Urbina MD, Performed at: =G - [facility] [address], [place] [id number] Validation Consultant: Vicenta Urbina MD, Phone: [phone] Performed at: WB - [facility] [address], [place] [id number] Validation Consultant: Vicenta Urbina MD, Phone: [phone] SPATULA-[facility]ONE [facility] MM diagnostic mammo BI w/CAD on 09-13-2024 MM diagnostic mammo BI w/CAD [facility] [address] [place] [address] Ultrasound Report Signed Patient: Leslee Nevarez MR#: [id number] : 1955 Acct:[id number] Age/Sex: 68 / F ADM Date: 09/13/24 Loc: [facility] Room: Type: [facility] Attending Dr: Rin Nicholson DO Ordering Provider: Rin Nicholson DO Date of Service: 09/13/24 US/US breast LT limited: D05.12 - Intraductal carcinoma in situ of left breast ([id number]) MM/MM diagnostic mammo BI w/CAD: D05.12 - Intraductal carcinoma in situ of left breast Copies to: Rin Nicholson DO BILATERAL Diagnostic Full Field digital mammogram with 3-D imaging. Full field digital CC and MLO imaging performed. CAD utilized. COMPARISON: 05/03/2023 HISTORY: History of left DCIS. Imaging in the nipple region. BREAST COMPOSITION: Scattered fibroglandular densities of the breast parenchyma identified BREAST CALCIFICATIONS: Benign calcifications present. VASCULAR CALCIFICATIONS: None ARCHITECTURAL DISTORTION: None BREAST NODULE: None AXILLARY LYMPH NODES: Normal POSTSURGICAL CHANGES: Left post therapy changes redemonstrated. Targeted left breast ultrasound. Left breast scanned in the nipple region at the 12:00 position. No focal abnormality identified. US/US breast LT limited IMPRESSION: No mammographic evidence of malignancy. No focal abnormality identified with targeted left breast ultrasound. Routine follow-up recommended in one year. RESULT CODE: 2 Benign Findings(s) DENSITY CODE: 2 (approximately 25-50% glandular) There are scattered areas of fibroglandular density. FOLLOW UP: 1YR THE FALSE-NEGATIVE RATE OF MAMMOGRAPHY IS APPROXIMATELY 10%. IMAGING OF A PALPABLE ABNORMALITY MUST BE BASED ON CLINICAL GROUNDS. PATIENT WAS ENTERED INTO A REMINDER SYSTEM WITH A TARGET DUE DATE FOR THE NEXT MAMMOGRAM. Impression dictated by: Turner Harrell M.D. 09/13/2024 12:25 PM Dictation Location: [facility] Tech: Janette Cleveland; Yen Osei Transcribed By: CANDACE 09/13/24 1225 Dictated By: Turner Harrell DO 09/13/24 1220 Signed By: 09/13/24 1225 Normal [facility] Cholesterol in LDL Calc [Mas s/Vol]on 08-21-2024 Cholesterol in LDL [Mass/Vol] Cholesterol in LDL [Mass/volume] in Serum or Plasma by calculation [facility] Comment on above: <100 mg/dl [id number] 0-129 mg/dl NEAR OR ABOVE [id number] mg/dl BORDERLINE [id number] mg/dl HIGH>190 mg/dl VERY HIGH Cholesterol in VLDL Calc [Ma ss/Vol]on 08-21-2024 Cholesterol in VLDL [Mass/Vol] Cholesterol in VLDL [Mass/volume] in Serum or Plasma by calculation [facility] Estimated glomerular filtrat ion rate (GFR) non- Americanon 08-21-2024 GFR/1.73 sq M.predicted among non-blacks MDRD (S/P/Bld) [Vol rate/Area] Estimated glomerular filtration rate (GFR) non- Low >=60 mL/min/1.7 3m 2 [facility] Globulin Calc (S) [Mass/Vol] on 08-21-2024 Globulin (S) [Mass/Vol] Serum globulin measurement by calculation (mass/volume) [facility] Glucose mean value [Mass/vol ume] in Blood Estimated from glycated hemoglobinon 08-21-2024 Average glucose Estimated from glycated hemoglobin (Bld) [Mass/Vol] Glucose mean value [Mass/volume] in Blood Estimated from glycated hemoglobin [facility] Hemoglobin A1c percentageon 08-21-2024 HbA1c (Bld) [Mass fraction] Hemoglobin A1c percentage High 4.5-6.2 [facility] Comment on above: ADA RECOMMENDED LIMI T 4.0 - 6.0ADA THERAPEUTIC TARGET < 7.0ACTION SUGGESTED> 7.0 Laboratory - Chemistry and C hemistry - challengeon 08-21-2024 Albumin [Mass/Vol] 3.4 g/dL 3.4-5.0 [facility] ALP [Catalytic activity/Vol] 136 U/L High 46-116 [facility] ALT [Catalytic activity/Vol] 24 U/L 14-59 [facility] AST [Catalytic activity/Vol] 14 U/L Low 15-37 [facility] Bilirubin [Mass/Vol] 0.3 mg/dL 0.2-1.0 [facility] Calcium [Mass/Vol] 8.9 mg/dL 8.5-10.1 [facility] Chloride [Moles/Vol] 105 mmol/L 98-107 [facility] Cholesterol [Mass/Vol] 205 mg/dL High <=200 [facility] Cholesterol in HDL [Mass/Vol] 49 mg/dL 40-60 [facility] Comment on above: > or =60 mg/dl - LOW CARDIOVASCULAR RISK<40 mg/dl - HIGH CARDIOVASCULAR RISK CO2 [Moles/Vol] 26.5 mmol/L 21.0-32.0 [facility] Creatinine [Mass/Vol] 1.18 mg/dL High 0.55-1.02 [facility] GFR/1.73 sq M.predicted MDRD (S/P/Bld) [Vol rate/Area] 55 mL/min/{1.73_m2} Low >=60 mL/min/1.7 3m 2 [facility] Glucose [Mass/Vol] 120 mg/dL High 74-106 [facility] Potassium [Moles/Vol] 4.1 mmol/L 3.5-5.1 [facility] Protein [Mass/Vol] 7.1 g/dL 6.4-8.2 [facility] Sodium [Moles/Vol] 141 mmol/L 136-145 [facility] Triglyceride [Mass/Vol] 153 mg/dL High <=150 [facility] Urea nitrogen [Mass/Vol] 16.0 mg/dL 7.0-18.0 [facility] Urea nitrogen/Creatinine [Mass ratio] 13.6 mg/mg [facility] Serum or plasma albumin/glob ulin mass ratioon 08-21-2024 Albumin/Globulin [Mass ratio] Serum or plasma albumin/globulin mass ratio [facility] Serum or plasma anion gap de terminationon 08-21-2024 Anion gap [Moles/Vol] Serum or plasma an ion gap determination [facility] Serum or plasma total choles terol/high density lipoprotein (HDL) cholesterol mass jose 08-21-2024 Cholesterol.total/Chol esterol in HDL [Mass ratio] Serum or plasma total cholesterol/high density lipoprotein (HDL) cholesterol mass rat [facility] Comment on above: 3.3 - 4.4 LOW RISK4. 4 - 7.1 AVERAGE RISK7.1 - 11.0 MODERATE RISK>11.0 HIGH RISK NM bone scan whole bodyon NM bone scan whole body [facility] [place] [place] [address] Nuclear Medicine Report Signed Patient: Leslee Nevarez MR#: [id number] : 1955 Acct:[id number] Age/Sex: 68 / F ADM Date: 08/10/24 Loc: [place] Room: Type: [facility] Attending Dr: Jacklyn Heard MD Copies to: MD Carmela Gregory MD Ordering Provider: Jacklyn Heard MD Date of Service: 08/10/24 NM/NM bone scan whole body: R74.8 - Abnormal levels of other serum enzymes WHOLE-BODY BONE SCAN: CLINICAL HISTORY: Elevated alkaline phosphatase. History of left breast cancer. COMPARISON: CT abdomen pelvis 06/28/2024 Following the intravenous administration of 21.6 mCi of technetium 99m labeled MDP, delayed minified views of the entire skeleton were obtained. There is normal distribution of radionucleotide within the axial and appendicular skeleton. There is mild degenerative uptake involving some of the joints, greatest at the right knee and both feet. There is also minor uptake at the left cervical spine and lower lumbar spine where there is degenerative change and spondylolysis on CT. There are no additional focal areas of increased uptake or photopenia that are suspicious for metastatic disease. There is physiologic activity within the urinary tract. There is contamination with radioactive urine at the perineum. The focus of increased uptake at the right hand is the site of injection. NM/NM bone scan whole body IMPRESSION: SITES OF MILD DEGENERATIVE JOINT UPTAKE. NO OTHER SIGNIFICANT BONE SCAN FINDINGS. Impression dictated by: Carmela Cuevas M.D. 08/10/2024 3:42 PM Dictation Location: [place] [address] Transcribed By: [facility] 08/10/24 1542 Dictated By: Carmela Cuevas MD 08/10/24 1536 Signed By: 08/10/24 1542 Normal [facility] Alkaline Phosphatase Isoenzy meon 07-23-2024 Bone Fraction 59 % Normal 14-68 [facility] Comment on above: Performed By: #### M ITOM2, ALK PHOSIS #### [facility] , Intestinal Fraction 10 % Normal 0-18 [facility] Comment on above: Result Comment: Perf ormed at: [facility] [employer] [address] [id number] Validation Consultant: Ced Baum PhD, Phone: [phone] PERFORMED BY: [facility] [address] [facility]le[facility] [facility] [id number] PATHOLOGIST PICK UP ATTENDANT PATRICA FLORENEC M.D. Performed By: #### M ITOM2, ALK PHOSIS #### [facility] , [facility] Alkaline Phosphatase 143 High 44-121 [facility] Comment on above: Performed By: #### M ITOM2, ALK PHOSIS #### [facility] , Liver Fraction 31 % Normal 18-85 [facility] Comment on above: Performed By: #### M ITOM2, ALK PHOSIS #### [facility] , Mitochondrial (M2) Antibodyo n 07-23-2024 Mitochondrial (M2) Antibody <20.0 Normal 0.0-20.0 [facility] Comment on above: Result Comment: Nega tive 0.0 - 20.0 Equivocal 20.1 - 24.9 Positive >24.9 Mitochondrial (M2) Antibodies are found in 90-96% of patients with primary biliary cirrhosis. Performed at: [facility] [employer] [facility] [address] [place], [place] [id number] Validation Consultant: Ced Baum PhD, Phone: [phone] Performed By: #### M ITOM2, ALK PHOSIS #### [facility] , Serum mitochondria M2 IgG an tibody assay (units/volume)Ordered By: Jacklyn Heard on 07-23-2024 Mitochondria M2 IgG Qn (S) Serum mitochondria M2 IgG antibody assay (units/volume) 0.0-20.0 [facility] Comment on above: Negative 0.0 - 20.0 Equivocal 20.1 - 24.9 Positive >24.9Mitochondrial (M2) Antibodies are found in 90-96% ofpatients with primary biliary cirrhosis.Performed at: [facility] [address] [id number] Director: Ced Baum PhD, Phone: [phone] Serum or plasma alkaline abisai sphatase measurement (enzymatic activity/volume)Ordered By: Jacklyn Heard on 07-23-2024 ALP [Catalytic activity/Vol] Alkaline phosphatase [Enzymatic activity/volume] in Serum or Plasma High 44-121 [facility] Serum or plasma bone alkalin e phosphatase/total alkaline phosphatase ratioOrdered By: Jacklyn Heard on 07-23-2024 ALP Bone [Catalytic fraction] Serum or plasma bone alkaline phosphatase/total alkaline phosphatase ratio 14-68 [facility] Serum or plasma intestinal a lkaline phosphatase/total alkaline phosphatase ratio (catOrdered By: Jacklyn Heard on 07-23-2024 ALP Intest [Catalytic fraction] Serum or plasma intestinal alkaline phosphatase/total alkaline phosphatase ratio (cat 0-18 [facility] Comment on above: Performed at: - [facility] [address] [id number] Director: Ced Baum PhD, Phone: [phone] Total alkaline phosphatase m easurement with isoenzyme panelOrdered By: Jacklyn Heard on 07-23-2024 ALP Iso Pnl Total alkaline phosp hatase measurement with isoenzyme panel 18-85 [facility] Alanine aminotransferase [En zymatic activity/volume] in Serum or PlasmaOrdered By: Jacklyn Heard on 06-28-2024 ALT [Catalytic activity/Vol] Alanine aminotransferase [Enzymatic activity/volume] in Serum or Plasma 7-52 [facility] Albumin [Mass/volume] in Ser um or Plasma by Bromocresol green (BCG) dye binding methoOrdered By: Imad Asaad on 06-28-2024 Albumin BCG dye [Mass/Vol] Albumin [Mass/volume] in Serum or Plasma by Bromocresol green (BCG) dye binding metho 3.5-5.7 [facility] Alkaline phosphatase [Enzyma tic activity/volume] in Serum or PlasmaOrdered By: Imad Asaad on 06-28-2024 ALP [Catalytic activity/Vol] Alkaline phosphatase [Enzymatic activity/volume] in Serum or Plasma High 34-104 [facility] Aspartate aminotransferase [ Enzymatic activity/volume] in Serum or PlasmaOrdered By: Imad Asaad on 06-28-2024 AST [Catalytic activity/Vol] Aspartate aminotransferase [Enzymatic activity/volume] in Serum or Plasma 13-39 [facility] Basophils Auto (Bld) [#/Vol] Ordered By: Imad Asaad on 06-28-2024 Basophils (Bld) [#/Vol] Automated basophil count 0.0-0.2 [facility] Basophils/100 WBC Auto (Bld) Ordered By: Imad Asaad on 06-28-2024 Basophils/100 WBC (Bld) Automated basophil % . [facility] Bilirubin.direct [Mass/volum e] in Serum or PlasmaOrdered By: Imad Asaad on 06-28-2024 Bilirubin.direct [Mass/Vol] Bilirubin.direct [Mass/volume] in Serum or Plasma 0.03-0.18 [facility] Bilirubin.total [Mass/volume ] in Serum or PlasmaOrdered By: Imad Asaad on 06-28-2024 Bilirubin [Mass/Vol] Bilirubin.total [Mass/volume] in Serum or Plasma 0.3-1.0 [facility] CT abdomen pelvis wo/w conon 06-28-2024 CT abdomen pelvis wo/w con [place] [id number] CT Scan Report Signed Patient: Leslee Nevarez MR#: [id number] : 1955 Acct:[id number] Age/Sex: 68 / F ADM Date: 06/28/24 Loc: Room: Type: [facility] Attending Dr: Jacklyn Heard MD Copies to: Jacklyn Heard MD Ordering Provider: Jacklyn Heard MD Date of Service: 06/28/24 CT/CT abdomen pelvis wo/w con: K76.9 - Liver disease, unspecified CT ABDOMEN AND PELVIS WITH AND WITHOUT INTRAVENOUS CONTRAST: CLINICAL HISTORY: Liver lesion COMPARISON: None TECHNIQUE: Spiral images were obtained through the abdomen and pelvis before and after the administration of intravenous contrast. This CT exam was performed using one or more following dose reduction techniques: Automated exposure control, adjustment of the mA and/or kV according to patient size, or use of iterative reconstruction technique. FINDINGS: Lung Bases: [Minor hypoventilatory change.] Organs:Mild fatty infiltration liver. Within the dome of the left hepatic lobe, there is a 2.1 cm x 2.0 x 1.0 cm lesion with peripheral nodular enhancement noted in central filling on delayed imaging.[. No additional liver lesions identified. Subcentimeter left renal hypodensities suggestive of cysts. Otherwise gallbladder, spleen, adrenals, kidneys, and pancreas are unremarkable. GI: Mild retained stool throughout the colon. No evidence of bowel obstruction.[ Pelvis:[Bladder is mostly collapsed. Uterus absent. No adnexal mass.] Peritoneum/Retroperitoneum: Moderate plaque involving the aorta and branches. Aorta is not aneurysmal. No free air or free fluid.[ Abd wall/Bones:Severe degenerative changes L5-S1 with bilateral pars defects anterolisthesis measuring 8 mm. Small fat-containing umbilical hernia.[ CT/CT abdomen pelvis wo/w con IMPRESSION: Fatty liver with left hepatic lobe lesion within the dome measuring 2 cm in size most suggestive of a hemangioma.. Pars defects and 8 mm anterolisthesis L5 on S1. Impression dictated by: Andrea Esquivel M.D.06/28/2024 2:32 PM Dictation Location: [place] [address] Transcribed By: [facility] 06/28/24 1432 Dictated By: Andrea Esquivel MD 06/28/24 1425 Signed By: 06/28/24 1432 Normal [facility] Physician [facility] Complete Blood Count Auto Di ffon 06-28-2024 Basophils (Bld) [#/Vol] 0.1 10*3/uL Normal 0.0-0.2 [facility] Comment on above: Result Comment: PERF ORMED BY: [place] [address] PATHOLOGIST PICK UP ATTENDANT PATRICA FLORENCE M.D. Performed By: #### H BSAG, HBSAB, HAABT, HBCAB #### [facility] , #### CBC, HEPATIC #### [address] Basophils/100 WBC (Bld) 1.0 % Normal . [facility] Comment on above: Performed By: #### H BSAG, HBSAB, HAABT, HBCAB #### [facility] , #### CBC, HEPATIC #### [place] [address] [place] Eosinophils (Bld) [#/Vol] 0.3 10*3/uL Normal 0.0-0.45 [facility] Comment on above: Performed By: #### H BSAG, HBSAB, HAABT, HBCAB #### [facility] , #### CBC, HEPATIC #### [address] Eosinophils/100 WBC (Bld) 3.5 % Normal . [facility] Comment on above: Performed By: #### H BSAG, HBSAB, HAABT, HBCAB #### [facility] , #### CBC, HEPATIC #### [address] Erythrocyte distribution width (RBC) [Ratio] 13.9 % Normal 11.9-15.3 [facility] Comment on above: Performed By: #### H BSAG, HBSAB, HAABT, HBCAB #### [facility] , #### CBC, HEPATIC #### [place] [address] [place] Hematocrit (Bld) [Volume fraction] 37.4 % Normal 34.0-46.4 [facility] Comment on above: Performed By: #### H BSAG, HBSAB, HAABT, HBCAB #### [facility] , #### CBC, HEPATIC #### [address] Hemoglobin (Bld) [Mass/Vol] 12.9 g/dL Normal 11.8-15.4 [facility] Comment on above: Performed By: #### H BSAG, HBSAB, HAABT, HBCAB #### [facility] , #### CBC, HEPATIC #### [address] Lymphocytes (Bld) [#/Vol] 2.2 10*3/uL Normal 1.00-4.8 [facility] Comment on above: Performed By: #### H BSAG, HBSAB, HAABT, HBCAB #### [facility] , #### CBC, HEPATIC #### [address] Lymphocytes/100 WBC (Bld) 27.5 % Normal . [facility] Comment on above: Performed By: #### H BSAG, HBSAB, HAABT, HBCAB #### [facility] , #### CBC, HEPATIC #### [address] MCH (RBC) [Entitic mass] 32.4 pg Normal 24.7-34.3 [facility] Comment on above: Performed By: #### H BSAG, HBSAB, HAABT, HBCAB #### [facility] , #### CBC, HEPATIC #### [address] MCV (RBC) [Entitic vol] 94.1 fL Normal 80-100 [facility] Comment on above: Performed By: #### H BSAG, HBSAB, HAABT, HBCAB #### [facility] , #### CBC, HEPATIC #### [address] Mean Corpuscular HGB Conc 34.5 g/dL Normal 32.0-35.0 [facility] Comment on above: Performed By: #### H BSAG, HBSAB, HAABT, HBCAB #### [facility] , #### CBC, HEPATIC #### [address] Monocytes (Bld) [#/Vol] 0.7 10*3/uL Normal 0.0-0.8 [facility] Comment on above: Performed By: #### H BSAG, HBSAB, HAABT, HBCAB #### [facility] , #### CBC, HEPATIC #### [address] Monocytes/100 WBC (Bld) 8.3 % Normal . [facility] Comment on above: Performed By: #### H BSAG, HBSAB, HAABT, HBCAB #### [facility] , #### CBC, HEPATIC #### [address] Neutrophils (Bld) [#/Vol] 4.7 10*3/uL Normal 1.8-7.7 [facility] Comment on above: Performed By: #### H BSAG, HBSAB, HAABT, HBCAB #### [facility] , #### CBC, HEPATIC #### [place] [address] [place] Neutrophils/100 WBC (Bld) 59.7 % Normal . [facility] Comment on above: Performed By: #### H BSAG, HBSAB, HAABT, HBCAB #### [facility] , #### CBC, HEPATIC #### [address] NRBC% 0.1 /100{WBC} Normal 0-0.5 [facility] Comment on above: Performed By: #### H BSAG, HBSAB, HAABT, HBCAB #### [facility] , #### CBC, HEPATIC #### [address] Platelet mean volume (Bld) [Entitic vol] 8.5 fL Normal 6.3-10.7 [facility] Comment on above: Performed By: #### H BSAG, HBSAB, HAABT, HBCAB #### [facility] , #### CBC, HEPATIC #### [address] Platelets (Bld) [#/Vol] 355 10*3/uL Normal 150-450 [facility] Comment on above: Performed By: #### H BSAG, HBSAB, HAABT, HBCAB #### [facility] , #### CBC, HEPATIC #### [address] RBC (Bld) [#/Vol] 3.97 10*6/uL Normal 3.60-5.00 [facility] Comment on above: Performed By: #### H BSAG, HBSAB, HAABT, HBCAB #### [facility] , #### CBC, HEPATIC #### [address] WBC (Bld) [#/Vol] 7.9 10*3/uL Normal 3.8-11.6 [facility] Comment on above: Performed By: #### H BSAG, HBSAB, HAABT, HBCAB #### [facility] , #### CBC, HEPATIC #### [address] Creatinine (Bld) [Mass/Vol]O rdered By: Jacklyn Heard on 06-28-2024 Creatinine [Mass/Vol] Whole blood creati nine measurement 0.6-1.3 [facility] Comment on above: ER/ESD physician is notified/shown all ISTAT results.Critical values may be confirmed by laboratory testing ifdeemed necessary by ER attending doctor. Eosinophils Auto (Bld) [#/Vo l]Ordered By: [facility] on 06-28-2024 Eosinophils (Bld) [#/Vol] Automated eosinophil count 0.0-0.45 [facility] Eosinophils/100 WBC Auto (Bl d)Ordered By: [facility] on 06-28-2024 Eosinophils/100 WBC (Bld) Automated eosinophil % . [facility] Erythrocyte distribution wid th Auto (RBC) [Ratio]Ordered By: [facility] on 06-28-2024 Erythrocyte distribution width (RBC) [Ratio] Erythrocyte distribution width [Ratio] by Automated count 11.9-15.3 [facility] Globulin Calc (S) [Mass/Vol] Ordered By: [facility] on 06-28-2024 Globulin (S) [Mass/Vol] Serum globulin measurement by calculation (mass/volume) [facility] Hematocrit Auto (Bld) [Volum e fraction]Ordered By: [facility] on 06-28-2024 Hematocrit (Bld) [Volume fraction] Hematocrit [Volume Fraction] of Blood by Automated count 34.0-46.4 [facility] Hemoglobin [Mass/volume] in BloodOrdered By: [facility] on 06-28-2024 Hemoglobin (Bld) [Mass/Vol] Hemoglobin [Mass/volume] in Blood 11.8-15.4 [facility] Hepatic Panelon 06-28-2024 Albumin [Mass/Vol] 4.3 g/dL Normal 3.5-5.7 [facility] Comment on above: Performed By: #### H BSAG, HBSAB, HAABT, HBCAB #### [facility] , #### CBC, HEPATIC #### [address] Albumin/Globulin [Mass ratio] 1.6 {ratio} Normal [facility] Comment on above: Performed By: #### H BSAG, HBSAB, HAABT, HBCAB #### [facility] , #### CBC, HEPATIC #### [address] ALP [Catalytic activity/Vol] 120 U/L High 34-104 [facility] Comment on above: Result Comment: PERF ORMED BY: [place] [address] PATHOLOGIST PICK UP ATTENDANT PATRICA FLORENCE M.D. Performed By: #### H BSAG, HBSAB, HAABT, HBCAB #### [facility] , #### CBC, HEPATIC #### [address] ALT [Catalytic activity/Vol] 16 U/L Normal 7-52 [facility] Comment on above: Performed By: #### H BSAG, HBSAB, HAABT, HBCAB #### [facility] , #### CBC, HEPATIC #### [address] AST [Catalytic activity/Vol] 19 U/L Normal 13-39 [facility] Comment on above: Performed By: #### H BSAG, HBSAB, HAABT, HBCAB #### [facility] , #### CBC, HEPATIC #### [address] Bilirubin [Mass/Vol] 0.3 mg/dL Normal 0.3-1.0 [facility] Comment on above: Performed By: #### H BSAG, HBSAB, HAABT, HBCAB #### [facility] , #### CBC, HEPATIC #### [address] Bilirubin,Indirect 0.2 mg/dL Normal [facility] Comment on above: Performed By: #### H BSAG, HBSAB, HAABT, HBCAB #### [facility] , #### CBC, HEPATIC #### [address] Bilirubin.indirect [Mass/Vol] 0.10 mg/dL Normal 0.03-0.18 [facility] Comment on above: Performed By: #### H BSAG, HBSAB, HAABT, HBCAB #### [facility] , #### CBC, HEPATIC #### [address] Globulin (S) [Mass/Vol] 2.7 g/dL Normal [facility] Comment on above: Performed By: #### H BSAG, HBSAB, HAABT, HBCAB #### [facility] , #### CBC, HEPATIC #### [address] Protein [Mass/Vol] 7.0 g/dL Normal 6.4-8.9 [facility] Comment on above: Performed By: #### H BSAG, HBSAB, HAABT, HBCAB #### [facility] , #### CBC, HEPATIC #### [address] Hepatitis A Antibody Totalon 06-28-2024 Hepatitis A Antibody Total Positive Critically abnormal Negative [facility] Comment on above: Result Comment: Comm ent: The HAV total antibody assay detects both IgG and IgM but does not differentiate between them. A negative result suggests susceptibility to infection. A positive result could be due to vaccination, previously resolved infection or active infection. Testing for HAV IgM should be performed if active HAV infection is suspected. [facility] offers profiles that will automatically reflex positive HAV total antibody results to IgM (e.g., panel #[id number] HAV Antibody w/ Rfx). Performed at: [address] [id number] Validation Consultant: Ced Baum PhD, Phone: [phone] Performed By: #### H BSAG, HBSAB, HAABT, HBCAB #### [facility] , #### CBC, HEPATIC #### [facility] [address] Hepatitis A virus Ab [Presen ce] in Serum by ImmunoassayOrdered By: Jacklyn Heard on 06-28-2024 HAV Ab IA Ql (S) Hepatitis A virus Ab [Presence] in Serum by Immunoassay Abnormal Negative [facility] Comment on above: Comment: The HAV tot al antibody assay detects both IgG andIgM but does not differentiate between them. A negativeresult suggests susceptibility to infection. A positiveresult could be due to vaccination, previously resolvedinfection or active infection. Testing for HAV IgM shouldbe performed if active HAV infection is suspected. [facility] that will automatically reflex positive HAVtotal antibody results to IgM (e.g., panel #[id number] HAVAntibody w/ Rfx).Performed at: [address] [id number] Director: Ced Baum PhD, Phone: [phone] Hepatitis B Core Antibodyon 06-28-2024 Hepatitis B Core Antibody Negative Normal Negative [facility] Comment on above: Performed By: #### H BSAG, HBSAB, HAABT, HBCAB ####[facility] ,#### CBC, HEPATIC ####[facility] Hepatitis B Surface Antibody on 06-28-2024 Hepatitis B Surface Antibody Non-Reactive Normal . [facility] Comment on above: Result Comment: Non Reactive: Not immune to HBV infection. Equivocal: Unable to determine if anti-HBs is present at levels consistent with immunity. Reactive: Anti-HBs concentration detected at greater than 10 mIU/mL. Individual is considered to be immune to infection with HBV. Performed By: #### H BSAG, HBSAB, HAABT, HBCAB ####[facility] ,#### CBC, HEPATIC ####[facility] Hepatitis B Surface Antigeno n 06-28-2024 HBsAg Screen Negative Normal Negative [facility] Comment on above: Result Comment: PERF ORMED BY: [facility] [address] [place] [address] PATHOLOGIST PICK UP ATTENDANT PATRICA FLORENCE M.D. Performed By: #### H BSAG, HBSAB, HAABT, HBCAB ####[facility] ,#### CBC, HEPATIC ####[place] [id number] [address] Hepatitis B virus core antib froy assayOrdered By: Jacklyn Heard on 06-28-2024 Hepatitis B Core Total Antibody Negative Negative [facility] ISTAT XRay CREon 06-28-2024 Creatinine [Mass/Vol] 0.9 mg/dL Normal 0.6-1.3 [facility] Comment on above: Result Comment: ER/E SD physician is notified/shown all ISTAT results. Critical values may be confirmed by laboratory testing if deemed necessary by ER attending doctor. Performed By: #### I SCRE ####[address] ISTAT GFR >60.0 Normal [facility] Comment on above: Result Comment: PERF ORMED BY: [address] [place] [address] PATHOLOGIST PICK UP ATTENDANT PATRICA FLORENCE M.D. Performed By: #### I SCRE ####[address] Leukocytes [#/volume] correc ron for nucleated erythrocytes in Blood by Automated counOrdered By: Imad Orquidea on 06-28-2024 WBC corrected for nucl RBC Auto (Bld) [#/Vol] Leukocytes [#/volume] corrected for nucleated erythrocytes in Blood by Automated coun 3.8-11.6 [facility] Lymphocytes Auto (Bld) [#/Vo l]Ordered By: Imad Asaad on 06-28-2024 Lymphocytes (Bld) [#/Vol] Lymphocytes [#/volume] in Blood by Automated count 1.00-4.8 [facility] Lymphocytes/100 WBC Auto (Bl d)Ordered By: Imad Asaad on 06-28-2024 Lymphocytes/100 WBC (Bld) Lymphocytes/100 leukocytes in Blood by Automated count . [facility] MCH Auto (RBC) [Entitic mass ]Ordered By: Imad Asaad on 06-28-2024 MCH (RBC) [Entitic mass] MCH [Entitic mass] by Automated count 24.7-34.3 [facility] MCHC Auto (RBC) [Mass/Vol]Or dered By: Imad Asaad on 06-28-2024 MCHC (RBC) [Mass/Vol] MCHC [Mass/volume] by Automated count 32.0-35.0 [facility] MCV Auto (RBC) [Entitic vol] Ordered By: Imad Asaad on 06-28-2024 MCV (RBC) [Entitic vol] MCV [Entitic volume] by Automated count 80-100 [facility] Monocytes Auto (Bld) [#/Vol] Ordered By: Imad Asaad on 06-28-2024 Monocytes (Bld) [#/Vol] Automated blood monocyte count 0.0-0.8 [facility] Monocytes/100 WBC Auto (Bld) Ordered By: Imad Asaad on 06-28-2024 Monocytes/100 WBC (Bld) Automated monocyte % . [facility] Neutrophils Auto (Bld) [#/Vo l]Ordered By: Imad Asaad on 06-28-2024 Neutrophils (Bld) [#/Vol] Neutrophils [#/volume] in Blood by Automated count 1.8-7.7 [facility] Neutrophils/100 WBC Auto (Bl d)Ordered By: Imad Asaad on 06-28-2024 Neutrophils/100 WBC (Bld) Automated neutrophil % . [facility] No Panel InformationOrdered By: Imad Asaad on 06-28-2024 Bedside Estimated GFR (eGFR) > 60.0 [facility] Nucleated erythrocytes [Pres ence] in Blood by Automated countOrdered By: Imad Asaad on 06-28-2024 Nucleated RBC Auto Ql (Bld) Nucleated erythrocytes [Presence] in Blood by Automated count 0-0.5 [facility] Platelet mean volume Auto (B ld) [Entitic vol]Ordered By: Imad Asaad on 06-28-2024 Platelet mean volume (Bld) [Entitic vol] Platelet mean volume [Entitic volume] in Blood by Automated count 6.3-10.7 [facility] Platelets Auto (Bld) [#/Vol] Ordered By: Imad Orquidea on 06-28-2024 Platelets (Bld) [#/Vol] Platelets [#/volume] in Blood by Automated count 150-450 [facility] Protein [Mass/volume] in Ser um or PlasmaOrdered By: Imad Mitchellad on 06-28-2024 Protein [Mass/Vol] Protein [Mass/volume ] in Serum or Plasma 6.4-8.9 [facility] RBC Auto (Bld) [#/Vol]Ordere d By: Imad Asaad on 06-28-2024 RBC (Bld) [#/Vol] Erythrocytes [#/volu me] in Blood by Automated count 3.60-5.00 [facility] Serum hepatitis B virus surf maxine antibody detectionOrdered By: Imad Orquidea 06-28-2024 HBV surface Ab Ql (S) Hepatitis B virus surface Ab [Presence] in Serum . [facility] Comment on above: Non Reactive: Not im mune to HBV infection. Equivocal: Unable to determine if anti-HBs is present at levels consistent with immunity. Reactive: Anti-HBs concentration detected at greater than 10 mIU/mL. Individual is considered to be immune to infection with HBV. Serum or plasma albumin/glob ulin mass ratioOrdered By: Imad Orquidea on 06-28-2024 Albumin/Globulin [Mass ratio] Serum or plasma albumin/globulin mass ratio [facility] Serum or plasma hepatitis B virus surface antigen detection by immunoassayOrdered By: Imad Orquidea on 06-28-2024 HBV surface Ag IA Ql Hepatitis B virus s urface Ag [Presence] in Serum or Plasma by Immunoassay Negative [facility] Serum or plasma hepatitis C virus genotype identification by probe and target amplifiOrdered By: Imjulianne Heard on 06-28-2024 HCV genotype KHANH+probe Nom HCV genotyping ser/plas amplified probe . [facility] Comment on above: Test not performed. Unable to provide an HCV genotype forthis sample. The most common reason an HCV genotype cannotbe determined is due to a viral load of <1,000 IU/mL, ormore rarely, the presence of an untypable HCV genotype.This test was developed and its performance characteristicsdetermined by [facility]. It has not been cleared orapproved by the Food and Drug Administration.Performed at: [address] [id number] Director: Kathe Francois MD, Phone: [phone] Serum or plasma non-glucuron idated bilirubin measurement (mass/volume)Ordered By: Jacklyn Heard on 06-28-2024 Bilirubin.indirect [Mass/Vol] Serum or plasma non-glucuronidated bilirubin measurement (mass/volume) [facility] WBC Auto (Bld) [#/Vol]Ordere d By: Jacklyn Heard on 06-28-2024 WBC (Bld) [#/Vol] Leukocytes [#/volume ] in Blood by Automated count 3.8-11.6 [facility] Erythrocyte distribution wid th Auto (RBC) [Ratio]Ordered By: Barbara Franklin on 05-29-2024 Erythrocyte distribution width (RBC) [Ratio] Erythrocyte distribution width [Ratio] by Automated count 11.9-15.3 [facility] Hematocrit Auto (Bld) [Volum e fraction]Ordered By: Barbara Franklin on 05-29-2024 Hematocrit (Bld) [Volume fraction] Hematocrit [Volume Fraction] of Blood by Automated count 34.0-46.4 [facility] Hemoglobin [Mass/volume] in BloodOrdered By: Barbara Franklin on 05-29-2024 Hemoglobin (Bld) [Mass/Vol] Hemoglobin [Mass/volume] in Blood 11.8-15.4 [facility] Hemogram CBC Without Diffon 05-29-2024 Erythrocyte distribution width (RBC) [Ratio] 13.4 % Normal 11.9-15.3 [facility] Comment on above: Performed By: #### C BCNO #### [facility] [address] [place] [address] Hematocrit (Bld) [Volume fraction] 39.1 % Normal 34.0-46.4 [facility] Comment on above: Performed By: #### C BCNO #### [facility] [address] [place] [address] [place] Hemoglobin (Bld) [Mass/Vol] 13.3 g/dL Normal 11.8-15.4 [facility] Comment on above: Performed By: #### C BCNO #### [address] MCH (RBC) [Entitic mass] 32.2 pg Normal 24.7-34.3 [facility] Comment on above: Performed By: #### C BCNO #### [address] MCV (RBC) [Entitic vol] 94.4 fL Normal 80-100 [facility] Comment on above: Performed By: #### C BCNO #### [address] Mean Corpuscular HGB Conc 34.1 g/dL Normal 32.0-35.0 [facility] Comment on above: Performed By: #### C BCNO #### [address] Platelet mean volume (Bld) [Entitic vol] 8.1 fL Normal 6.3-10.7 [facility] Comment on above: Result Comment: PERF ORMED BY: [place] [address] PATHOLOGIST PICK UP ATTENDANT PATRICA FLORENCE M.D. Performed By: #### C BCNO #### [address] Platelets (Bld) [#/Vol] 353 10*3/uL Normal 150-450 [facility] Comment on above: Performed By: #### C BCNO #### [address] RBC (Bld) [#/Vol] 4.14 10*6/uL Normal 3.60-5.00 [facility] Comment on above: Performed By: #### C BCNO #### [address] WBC (Bld) [#/Vol] 9.0 10*3/uL Normal 3.8-11.6 [facility] Comment on above: Performed By: #### C BCNO #### [address] Leukocytes [#/volume] correc ron for nucleated erythrocytes in Blood by Automated counOrdered By: Barbara Franklin on 05-29-2024 WBC corrected for nucl RBC Auto (Bld) [#/Vol] Leukocytes [#/volume] corrected for nucleated erythrocytes in Blood by Automated coun 3.8-11.6 [facility] MCH Auto (RBC) [Entitic mass ]Ordered By: Barbara Franklin on 05-29-2024 MCH (RBC) [Entitic mass] MCH [Entitic mass] by Automated count 24.7-34.3 [facility] MCHC Auto (RBC) [Mass/Vol]Or dered By: Barbara Franklin on 05-29-2024 MCHC (RBC) [Mass/Vol] MCHC [Mass/volume] by Automated count 32.0-35.0 [facility] MCV Auto (RBC) [Entitic vol] Ordered By: Barbara Franklin on 05-29-2024 MCV (RBC) [Entitic vol] MCV [Entitic volume] by Automated count 80-100 [facility] Platelet mean volume Auto (B ld) [Entitic vol]Ordered By: Barbara Franklin on 05-29-2024 Platelet mean volume (Bld) [Entitic vol] Platelet mean volume [Entitic volume] in Blood by Automated count 6.3-10.7 [facility] Platelets Auto (Bld) [#/Vol] Ordered By: Barbara Franklin on 05-29-2024 Platelets (Bld) [#/Vol] Platelets [#/volume] in Blood by Automated count 150-450 [facility] RBC Auto (Bld) [#/Vol]Ordere d By: Barbara Franklin on 05-29-2024 RBC (Bld) [#/Vol] Erythrocytes [#/volu me] in Blood by Automated count 3.60-5.00 [facility] Albumin [Mass/volume] in Ser um or Plasma by Bromocresol green (BCG) dye binding methoOrdered By: Barbara Franklin on 05-28-2024 Albumin BCG dye [Mass/Vol] Albumin [Mass/volume] in Serum or Plasma by Bromocresol green (BCG) dye binding metho 3.5-5.7 [facility] Appearance of UrineOrdered B y: Barbara Franklin on 05-28-2024 Appearance (U) Urine appearance [facility] Bilirubin Test strip Ql (U)O rdered By: Barbara Franklin on 05-28-2024 Bilirubin Ql (U) Bilirubin.total [Pre sence] in Urine by Test strip Negative [facility] Calcium [Mass/volume] in Ser um or PlasmaOrdered By: Barbara Franklin on 05-28-2024 Calcium [Mass/Vol] Calcium [Mass/volume ] in Serum or Plasma 8.6-10.3 [facility] Carbon dioxide, total [Moles /volume] in Serum or PlasmaOrdered By: Barbara Franklin on 05-28-2024 CO2 [Moles/Vol] Carbon dioxide, tota l [Moles/volume] in Serum or Plasma 21.0-31.0 [facility] Chloride [Moles/volume] in S sumanth or PlasmaOrdered By: Barbara Franklin on 05-28-2024 Chloride [Moles/Vol] Chloride [Moles/vol ume] in Serum or Plasma 98-107 [facility] Color Auto (U)Ordered By: Darryl Franklin on 05-28-2024 Color (U) Color of Urine by Auto Yellow [facility] Creatinine [Mass/volume] in Serum or PlasmaOrdered By: Barbara Franklin on 05-28-2024 Creatinine [Mass/Vol] Creatinine [Mass/v olume] in Serum or Plasma High 0.60-1.20 [facility] Creatinine [Mass/volume] in UrineOrdered By: Barbara Franklin on 05-28-2024 Creatinine (U) [Mass/Vol] Creatinine [Mass/volume] in Urine [facility] Comment on above: No reference range e stablished Ferritinon 05-28-2024 Ferritin [Mass/Vol] 43.2 ng/mL Normal 11.0-306.8 [facility] Comment on above: Performed By: #### F E and TIBC, [id number], UA, DAO, RENAL, MG, URMACRERAT, PTH, URIC, [id number], PROCRERAT ####[facility] [id number] [place] [id number] [facility] Ferritin [Mass/volume] in Se rum or PlasmaOrdered By: Barbara Franklin on 05-28-2024 Ferritin [Mass/Vol] Ferritin [Mass/volum e] in Serum or Plasma 11.0-306.8 [facility] Folate [Mass/volume] in Seru m or PlasmaOrdered By: Barbara Franklin on 05-28-2024 Folate [Mass/Vol] Folate [Mass/volume] in Serum or Plasma >5.9 [facility] Comment on above: Folate reference ran ge: >5.9 ng/mlThe WHO technical consultation on folate and vitamin [id number] has determined that folate concentrations lessthan 4 ng/ml are considered deficient. Glucose [Mass/volume] in Ser um or PlasmaOrdered By: Barbara Franklin on 05-28-2024 Glucose [Mass/Vol] Glucose [Mass/volume ] in Serum or Plasma High 70-100 [facility] Comment on above: ADA recommended refe rence rangeRandom Glucose Reference Range is dependent on time and content of last meal. Glucose of more than 200 mg/dL in a nonstressed, ambulatory subject supports the diagnosis of Diabetes Mellitus. Glucose [Mass/volume] in Uri ne by Test stripOrdered By: Barbara Franklin on 05-28-2024 Glucose Test strip (U) [Mass/Vol] Glucose [Mass/volume] in Urine by Test strip High Normal [facility] Hemoglobin Test strip Ql (U) Ordered By: Barbara Franklin on 05-28-2024 Hemoglobin Ql (U) Hemoglobin [Presence ] in Urine by Test strip Negative [facility] Iron [Mass/volume] in Serum or PlasmaOrdered By: Barbara Franklin on 05-28-2024 Iron [Mass/Vol] Iron [Mass/volume] i n Serum or Plasma 50-212 [facility] Iron and TIBC Profileon 05-19 0 % Iron Saturation 25.3 % Normal 20-50 [facility] Comment on above: Performed By: #### F E and TIBC, [id number], UA, DAO, RENAL, MG, URMACRERAT, PTH, URIC, [id number], PROCRERAT ####[place] [id number] [address] Iron [Mass/Vol] 91 ug/dL Normal 50-212 [facility] Comment on above: Performed By: #### F E and TIBC, [id number], UA, DAO, RENAL, MG, URMACRERAT, PTH, URIC, [id number], PROCRERAT ####[place] [id number] [address] Total Iron Binding Capacity 360 ug/dL Normal 255-450 [facility] Comment on above: Performed By: #### F E and TIBC, [id number], UA, DAO, RENAL, MG, URMACRERAT, PTH, URIC, [id number], PROCRERAT ####[address] Transferrin [Mass/Vol] 257 mg/dL Normal 203-[address] [facility] Comment on above: Performed By: #### F E and TIBC, [id number], UA, DAO, RENAL, MG, URMACRERAT, PTH, URIC, [id number], PROCRERAT ####[address] Ketones Test strip Ql (U)Ord ered By: Barbara Franklin on 05-28-2024 Ketones Ql (U) Ketones [Presence] i n Urine by Test strip Negative [facility] Leukocyte esterase [Presence ] in Urine by Test stripOrdered By: Barbara Franklin on 05-28-2024 Leukocyte esterase Test strip Ql (U) Leukocyte esterase [Presence] in Urine by Test strip Negative [facility] Magnesiumon 05-28-2024 Magnesium [Mass/Vol] 1.7 mg/dL Low 1.9-2.7 [facility] Comment on above: Performed By: #### F E and TIBC, [id number], UA, DAO, RENAL, MG, URMACRERAT, PTH, URIC, [id number], PROCRERAT ####[place] [id number] [address] Magnesium [Mass/volume] in S sumanth or PlasmaOrdered By: Barbara Franklin on 05-28-2024 Magnesium [Mass/Vol] Magnesium [Mass/vol ume] in Serum or Plasma Low 1.9-2.7 [facility] MicroAlb Creat Ratio,Uon Albumin DL <= 20 mg/L (U) [Mass/Vol] mg/dL Normal 0.0-1.8 [facility] Comment on above: Performed By: #### F E and TIBC, [id number], UA, DAO, RENAL, MG, URMACRERAT, PTH, URIC, [id number], PROCRERAT ####[address] Creatinine, Urine (Random) 24.00 mg/dL Normal [facility] Comment on above: Result Comment: No r eference range established Performed By: #### F E and TIBC, [id number], UA, DAO, RENAL, MG, URMACRERAT, PTH, URIC, [id number], PROCRERAT ####[address] Microalbumin/Creatinin e Ratio Not performed Normal 0.0-30.0 [facility] Comment on above: Performed By: #### F E and TIBC, [id number], UA, DAO, RENAL, MG, URMACRERAT, PTH, URIC, [id number], PROCRERAT ####[address] Microalbumin [Mass/volume] i n UrineOrdered By: Barbara Franklin on 05-28-2024 Albumin DL <= 20 mg/L (U) [Mass/Vol] Microalbumin [Mass/volume] in Urine 0.0-1.8 [facility] Nitrite Test strip Ql (U)Ord ered By: Barbara Franklin on 05-28-2024 Nitrite Ql (U) Nitrite [Presence] i n Urine by Test strip Negative [facility] No Panel InformationOrdered By: Barbara Franklin on 05-28-2024 Estimated GFR (CKD-EPI) 39.290 mL/Min [facility] Creatinine Clearance (Chem N/A [facility] Parathyrin.intact [Mass/volu me] in Serum or PlasmaOrdered By: Barbara Franklin on 05-28-2024 Parathyrin.intact [Mass/Vol] Parathyrin.intact [Mass/volume] in Serum or Plasma [facility] Parathyroid Hormone Intacton 05-28-2024 Parathyroid Hormone Intact 49.6 pg/mL Normal [facility] Comment on above: Result Comment: PERF ORMED BY: [facility] [address] [place] [address] PATHOLOGIST PICK UP ATTENDANT PATRICA FLORENCE M.D. Performed By: #### F E and TIBC, [id number], UA, DAO, RENAL, MG, URMACRERAT, PTH, URIC, [id number], PROCRERAT ####[place] [id number] [place] [address] [facility] Phosphate [Mass/volume] in S sumanth or PlasmaOrdered By: Barbara Franklin on 05-28-2024 Phosphate [Mass/Vol] Phosphate [Mass/vol ume] in Serum or Plasma 2.5-4.5 [facility] Potassium [Moles/volume] in Serum or PlasmaOrdered By: Barbara Franklin on 05-28-2024 Potassium [Moles/Vol] Potassium [Moles/v olume] in Serum or Plasma High 3.5-5.1 [facility] Protein Creat Ratio Ur Rando mon 05-28-2024 Protein, Urine (Random) <4 Normal 0-9 [facility] Comment on above: Performed By: #### F E and TIBC, [id number], UA, DAO, RENAL, MG, URMACRERAT, PTH, URIC, [id number], PROCRERAT ####[facility] [id number] [place] [id number] [facility] Urine Protein/Creatinine Ratio Not performed Normal 0-200 [facility] Comment on above: Result Comment: PERF ORMED BY: [facility] [address] [place] [id number] PATHOLOGIST PICK UP ATTENDANT PATRICA FLORENCE M.D. Performed By: #### F E and TIBC, [id number], UA, DAO, RENAL, MG, URMACRERAT, PTH, URIC, [id number], PROCRERAT ####[place] [id number] [facility] Protein Test strip (U) [Mass /Vol]Ordered By: Barbara Franklin on 05-28-2024 Protein (U) [Mass/Vol] Protein [Mass/vol ume] in Urine by Test strip Negative [facility] Protein [Mass/volume] in Uri neOrdered By: Barbara Franklin on 05-28-2024 Protein (U) [Mass/Vol] Protein [Mass/vol ume] in Urine 0-9 [facility] Renal Function Panelon 05-28 Albumin [Mass/Vol] 4.5 g/dL Normal 3.5-5.7 [facility] Comment on above: Performed By: #### F E and TIBC, [id number], UA, DAO, RENAL, MG, URMACRERAT, PTH, URIC, [id number], PROCRERAT ####[place] [id number] [facility] Anion gap [Moles/Vol] 11.6 mmol/L Normal 6.0-15.0 [facility] Comment on above: Performed By: #### F E and TIBC, [id number], UA, DAO, RENAL, MG, URMACRERAT, PTH, URIC, [id number], PROCRERAT ####[place] [id number] [facility] Calcium [Mass/Vol] 9.9 mg/dL Normal 8.6-10.3 [facility] Comment on above: Performed By: #### F E and TIBC, [id number], UA, DAO, RENAL, MG, URMACRERAT, PTH, URIC, [id number], PROCRERAT ####[address] Chloride [Moles/Vol] 99 mmol/L Normal 98-107 [facility] Comment on above: Performed By: #### F E and TIBC, [id number], UA, DAO, RENAL, MG, URMACRERAT, PTH, URIC, [id number], PROCRERAT ####[address] CO2 [Moles/Vol] 23.6 mmol/L Normal 21.0-31.0 [facility] Comment on above: Performed By: #### F E and TIBC, [id number], UA, DAO, RENAL, MG, URMACRERAT, PTH, URIC, [id number], PROCRERAT ####[address] Creatinine [Mass/Vol] 1.45 mg/dL High 0.60-1.20 [facility] Comment on above: Performed By: #### F E and TIBC, [id number], UA, DAO, RENAL, MG, URMACRERAT, PTH, URIC, [id number], PROCRERAT ####[address] Estimated GFR 39.290 mL/Min Normal [facility] Comment on above: Performed By: #### F E and TIBC, [id number], UA, DAO, RENAL, MG, URMACRERAT, PTH, URIC, [id number], PROCRERAT ####[address] Glucose [Mass/Vol] 163 mg/dL High 70-100 [facility] Comment on above: Result Comment: [place] Glucose Reference Range is dependent on time and content of last meal. Glucose of more than 200 mg/dL in a nonstressed, ambulatory subject supports the diagnosis of Diabetes Mellitus. ADA recommended reference range Performed By: #### F E and TIBC, [id number], UA, DAO, RENAL, MG, URMACRERAT, PTH, URIC, [id number], PROCRERAT ####[address] Phosphate [Mass/Vol] 4.0 mg/dL Normal 2.5-4.5 [facility] Comment on above: Performed By: #### F E and TIBC, [id number], UA, DAO, RENAL, MG, URMACRERAT, PTH, URIC, [id number], PROCRERAT ####[address] Potassium [Moles/Vol] 5.2 mmol/L High 3.5-5.1 [facility] Comment on above: Performed By: #### F E and TIBC, [id number], UA, DAO, RENAL, MG, URMACRERAT, PTH, URIC, [id number], PROCRERAT ####[address] Sodium [Moles/Vol] 129 mmol/L Low 136-145 [facility] Comment on above: Performed By: #### F E and TIBC, [id number], UA, DAO, RENAL, MG, URMACRERAT, PTH, URIC, [id number], PROCRERAT ####[address] Urea nitrogen [Mass/Vol] 27 mg/dL High 7-25 [facility] Comment on above: Performed By: #### F E and TIBC, [id number], UA, DAO, RENAL, MG, URMACRERAT, PTH, URIC, [id number], PROCRERAT ####[address] Serum or plasma anion gap de terminationOrdered By: Barbara Franklin on 05-28-2024 Anion gap [Moles/Vol] Serum or plasma an ion gap determination 6.0-15.0 [facility] Serum or plasma iron binding capacity measurement (mass/volume)Ordered By: Barbara Franklin on 05-28-2024 Iron binding capacity [Mass/Vol] Iron binding capacity [Mass/volume] in Serum or Plasma 255-450 [facility] Serum or plasma iron saturat ion measurement (mass fraction)Ordered By: Barbara Franklin on 05-28-2024 Iron saturation [Mass fraction] Iron saturation [Mass Fraction] in Serum or Plasma 20-50 [facility] Sodium [Moles/volume] in Ser um or PlasmaOrdered By: Barbara Franklin on 05-28-2024 Sodium [Moles/Vol] Sodium [Moles/volume ] in Serum or Plasma Low 136-145 [facility] Specific gravity Test strip (U) [Rel density]Ordered By: Barbara Franklin on 05-28-2024 Specific gravity (U) [Rel density] Specific gravity of Urine by Test strip 1.001-1.03 0 [facility] Transferrin [Mass/volume] in Serum or PlasmaOrdered By: Barbara Franklin on 05-28-2024 Transferrin [Mass/Vol] Transferrin [Mass /volume] in Serum or Plasma [phone] [facility] US renal BIon 05-28-2024 US renal BI [facility] [place] [address] Ultrasound Report Signed Patient: Leslee Nevarez MR#: [id number] : 1955 Acct:[id number] Age/Sex: 68 / F ADM Date: 05/28/24 Loc: Room: Type: [facility] Attending Dr: Barbara Franklin MD Ordering Provider: Barbara Franklin MD Date of Service: 05/28/24 US/US renal BI: N18.9 - Chronic kidney disease, unspecified Copies to: Barbara Franklin MD BILATERAL RENAL AND BLADDER ULTRASOUND CLINICAL HISTORY: Stage III 3 chronic kidney disease. COMPARISON: None FINDINGS: Estimation of renal size is approximately 8.55 cm on the right and 9.01 cm on the left. No contour deforming mass, shadowing stone or hydronephrosis. The urinary bladder is partially distended with a volume of 115.96 ml. No shadowing stone or focal lesion. No significant postvoid residual. US/US renal BI IMPRESSION: No acute findings. Impression dictated by: Carlos Alberto Thornton Jr., D.O.05/28/2024 2:52 PM Dictation Location: [place] [address] Tech: Starla Funk Transcribed By: CANDACE 05/28/241451 Dictated By: Carlos Alberto Thornton Jr, DO 05/28/241449 Signed By: 05/28/241451 Normal [facility] Urate [Mass/volume] in Serum or PlasmaOrdered By: Barbara Franklin on 05-28-2024 Urate [Mass/Vol] Urate [Mass/volume] in Serum or Plasma 2.3-6.6 [facility] Urea nitrogen [Mass/volume] in Serum or PlasmaOrdered By: Barbara Franklin on 05-28-2024 Urea nitrogen [Mass/Vol] Urea nitrogen [Mass/volume] in Serum or Plasma High 7-25 [facility] Uric Acidon 05-28-2024 Urate [Mass/Vol] 5.9 mg/dL Normal 2.3-6.6 [facility] Comment on above: Performed By: #### F E and TIBC, [id number], UA, DAO, RENAL, MG, URMACRERAT, PTH, URIC, [id number], PROCRERAT ####[place] [id number] [address] Urinalysison 05-28-2024 Appearance (U) Clear Normal Clear [facility] Comment on above: Order Comment: Name Collection Type:: Clean-Voided Midstream Performed By: #### F E and TIBC, [id number], UA, DAO, RENAL, MG, URMACRERAT, PTH, URIC, [id number], PROCRERAT ####[place] [id number] [facility] Bilirubin,Urine Negative Normal Negative [facility] Comment on above: Order Comment: Name Collection Type:: Clean-Voided Midstream Performed By: #### F E and TIBC, [id number], UA, DAO, RENAL, MG, URMACRERAT, PTH, URIC, [id number], PROCRERAT ####[address] Color (U) Colorless Normal Yellow [facility] Comment on above: Order Comment: Name Collection Type:: Clean-Voided Midstream Performed By: #### F E and TIBC, [id number], UA, DAO, RENAL, MG, URMACRERAT, PTH, URIC, [id number], PROCRERAT ####[address] Glucose Ql (U) >= High Normal [facility] Comment on above: Order Comment: Name Collection Type:: Clean-Voided Midstream Performed By: #### F E and TIBC, [id number], UA, DAO, RENAL, MG, URMACRERAT, PTH, URIC, [id number], PROCRERAT ####[address] Ketones Ql (U) Negative Normal Negative [facility] Comment on above: Order Comment: Name Collection Type:: Clean-Voided Midstream Performed By: #### F E and TIBC, [id number], UA, DAO, RENAL, MG, URMACRERAT, PTH, URIC, [id number], PROCRERAT ####[address] Leukocyte esterase Test strip Ql (U) Negative Normal Negative [facility] Comment on above: Order Comment: Name Collection Type:: Clean-Voided Midstream Performed By: #### F E and TIBC, [id number], UA, DAO, RENAL, MG, URMACRERAT, PTH, URIC, [id number], PROCRERAT ####[address] Nitrite,Urine Negative Normal Negative [facility] Comment on above: Order Comment: Name Collection Type:: Clean-Voided Midstream Performed By: #### F E and TIBC, [id number], UA, DAO, RENAL, MG, URMACRERAT, PTH, URIC, [id number], PROCRERAT ####[place] [phone] [facility] Occult Blood,Urine Negative Normal Negative [facility] Comment on above: Order Comment: Name Collection Type:: Clean-Voided Midstream Result Comment: PERF ORMED BY: [facility] [address] [place] [address] PATHOLOGIST PICK UP ATTENDANT PATRICA FLORENCE M.D. Performed By: #### F E and TIBC, [id number], UA, DAO, RENAL, MG, URMACRERAT, PTH, URIC, [id number], PROCRERAT ####[place] [id number] [facility] pH (U) 5.0 [pH] Normal 5.0-9.0 [facility] Comment on above: Order Comment: Name Collection Type:: Clean-Voided Midstream Performed By: #### F E and TIBC, [id number], UA, DAO, RENAL, MG, URMACRERAT, PTH, URIC, [id number], PROCRERAT ####[address] Protein,Urine Negative Normal Negative [facility] Comment on above: Order Comment: Name Collection Type:: Clean-Voided Midstream Performed By: #### F E and TIBC, [id number], UA, DAO, RENAL, MG, URMACRERAT, PTH, URIC, [id number], PROCRERAT ####[place] [id number] [facility] Specificy [place],Urine 1.005 Normal 1.001-1.03 0 [facility] Comment on above: Order Comment: Name Collection Type:: Clean-Voided Midstream Performed By: #### F E and TIBC, [id number], UA, DAO, RENAL, MG, URMACRERAT, PTH, URIC, [id number], PROCRERAT ####[place] [phone] [facility] Urobilinogen,Urine Normal Normal Normal [facility] Comment on above: Order Comment: Name Collection Type:: Clean-Voided Midstream Performed By: #### F E and TIBC, [id number], UA, DAO, RENAL, MG, URMACRERAT, PTH, URIC, [id number], PROCRERAT ####[facility] Urine microalbumin/creatinin e mass ratioOrdered By: Barbara Franklin on 05-28-2024 Albumin/Creatinine DL <= 20 mg/L (U) [Mass ratio] Urine microalbumin/creatinine mass ratio [facility] Comment on above: Test not performed Urine protein/creatinine rat ioOrdered By: Barbara Franklin on 05-28-2024 Protein/Creatinine (U) [Ratio] Urine protein/creatinine ratio [facility] Comment on above: Test not performed Urobilinogen Test strip (U) [Mass/Vol]Ordered By: Barbara Franklin on 05-28-2024 Urobilinogen (U) [Mass/Vol] Urobilinogen [Mass/volume] in Urine by Test strip Normal [facility] Vit. B12/Folate Profileon Cobalamin (Vitamin B12) [Mass/Vol] 1247 pg/mL High 180-914 [facility] Comment on above: Performed By: #### F E and TIBC, [id number], UA, DAO, RENAL, MG, URMACRERAT, PTH, URIC, [id number], PROCRERAT ####[place] [id number] [address] Folate >49.6 Normal >5.9 [facility] Comment on above: Result Comment: Adrienne te reference range: >5.9 ng/ml The WHO technical consultation on folate and vitamin b12 deficiencies has determined that folate concentrations less than 4 ng/ml are considered deficient. Performed By: #### F E and TIBC, [id number], UA, DAO, RENAL, MG, URMACRERAT, PTH, URIC, [id number], PROCRERAT ####[place] [id number] [address] Vitamin B12 ser/plasOrdered By: Barbara Franklin on 05-28-2024 Cobalamin (Vitamin B12) [Mass/Vol] Vitamin B12 ser/plas High 180-914 [facility] Vitamin D 25 Hydroxy Totalon 05-28-2024 Vitamin D 25 Hydroxy Total 32.1 ng/mL Normal 30-100 [facility] Comment on above: Result Comment: PATRICIA MIN D STATUS 25(OH)VITAMIN D RANGE (ng/mL) Deficient <20 Insufficient 20 to <30 Sufficient 30 to 100 Reference: De Whitmore, Lorraine LUGO, et al. Evaluation,treatment, and prevention of vitamin D deficiency; an Endocrine Society clinical practice guideline. JCEM. 2010; 96(7):1911-. PERFORMED BY: [facility] [address] [facility] [place] [address] PATHOLOGIST PICK UP ATTENDANT PATRICA FLORENCE M.D. Performed By: #### F E and TIBC, [id number], UA, DAO, RENAL, MG, URMACRERAT, PTH, URIC, [id number], PROCRERAT ####[facility] [id number] [place] [address] [facility] Vitamin D+Metabolites [Mass/ volume] in Serum or PlasmaOrdered By: Barbara Franklin on 05-28-2024 Vitamin D+Metabolites [Mass/Vol] Vitamin D+Metabolites [Mass/volume] in Serum or Plasma 30-100 [facility] Comment on above: VITAMIN D STATUS 25( OH)VITAMIN D RANGE (ng/mL) Deficient <20 Insufficient 20 to <30Sufficient 30 to 100Reference: De Whitmore, Lorraine LUGO, et al. Evaluation,treatment, and prevention of vitamin D deficiency; an Endocrine Society clinical practice guideline. JCEM. 2010; 96(7):1911-. pH Test strip (U)Ordered By: Barbara Franklin on 05-28-2024 pH (U) pH of Urine by Test strip 5.0-9.0 [facility] Basophils Auto (Bld) [#/Vol] on 05-22-2024 Basophils (Bld) [#/Vol] Automated basophil count 0.0-0.1 [facility] Basophils/100 WBC Auto (Bld) on 05-22-2024 Basophils/100 WBC (Bld) Automated basophil % 0.2-2.0 [facility] Cholesterol in LDL Calc [Mas s/Vol]on 05-22-2024 Cholesterol in LDL [Mass/Vol] Cholesterol in LDL [Mass/volume] in Serum or Plasma by calculation [facility] Comment on above: <100 mg/dl [id number] 0-129 mg/dl NEAR OR ABOVE [id number] mg/dl BORDERLINE CNRI762-457 mg/dl HIGH>190 mg/dl VERY HIGH Cholesterol in VLDL Calc [Ma ss/Vol]on 05-22-2024 Cholesterol in VLDL [Mass/Vol] Cholesterol in VLDL [Mass/volume] in Serum or Plasma by calculation [facility] Eosinophils/100 WBC Auto (Bl d)on 05-22-2024 Eosinophils/100 WBC (Bld) Automated eosinophil % 0.9-7.0 [facility] Erythrocyte distribution wid th Auto (RBC) [Ratio]on 05-22-2024 Erythrocyte distribution width (RBC) [Ratio] Erythrocyte distribution width [Ratio] by Automated count 11.0-15.0 [facility] Estimated glomerular filtrat ion rate (GFR) non- Americanon 05-22-2024 GFR/1.73 sq M.predicted among non-blacks MDRD (S/P/Bld) [Vol rate/Area] Estimated glomerular filtration rate (GFR) non- Low >=60 mL/min/1.7 3m 2 [facility] Globulin Calc (S) [Mass/Vol] on 05-22-2024 Globulin (S) [Mass/Vol] Serum globulin measurement by calculation (mass/volume) [facility] Glucose mean value [Mass/vol ume] in Blood Estimated from glycated hemoglobinon 05-22-2024 Average glucose Estimated from glycated hemoglobin (Bld) [Mass/Vol] Glucose mean value [Mass/volume] in Blood Estimated from glycated hemoglobin [facility] Hematocrit Auto (Bld) [Volum e fraction]on 05-22-2024 Hematocrit (Bld) [Volume fraction] Hematocrit [Volume Fraction] of Blood by Automated count 36.0-48.0 [facility] Hemoglobin A1c percentageon 05-22-2024 HbA1c (Bld) [Mass fraction] Hemoglobin A1c percentage High 4.5-6.2 [facility] Comment on above: ADA RECOMMENDED LIMI T 4.0 - 6.0ADA THERAPEUTIC TARGET < 7.0ACTION SUGGESTED> 7.0 Hemoglobin [Mass/volume] in Bloodon 05-22-2024 Hemoglobin (Bld) [Mass/Vol] Hemoglobin [Mass/volume] in Blood 12.0-16.0 [facility] Laboratory - Chemistry and C hemistry - challengeon 05-22-2024 Albumin [Mass/Vol] 3.8 g/dL 3.4-5.0 [facility] ALP [Catalytic activity/Vol] 122 U/L High 46-116 [facility] ALT [Catalytic activity/Vol] 20 U/L 14-59 [facility] AST [Catalytic activity/Vol] 12 U/L Low 15-37 [facility] Bilirubin [Mass/Vol] 0.3 mg/dL 0.2-1.0 [facility] Calcium [Mass/Vol] 9.4 mg/dL 8.5-10.1 [facility] Chloride [Moles/Vol] 101 mmol/L 98-107 [facility] Cholesterol [Mass/Vol] 250 mg/dL High <=200 [facility] Cholesterol in HDL [Mass/Vol] 52 mg/dL 40-60 [facility] Comment on above: > or =60 mg/dl - LOW CARDIOVASCULAR RISK<40 mg/dl - HIGH CARDIOVASCULAR RISK CO2 [Moles/Vol] 28.6 mmol/L 21.0-32.0 [facility] Cobalamin (Vitamin B12) [Mass/Vol] 1266 pg/mL Abnormal 232-1245 [facility] Comment on above: Performed at: [facility] [email or web address] [id number] Director: Ced Baum PhD, Phone: [phone] Creatinine [Mass/Vol] 1.54 mg/dL High 0.55-1.02 [facility] Free T4 [Mass/Vol] 1.08 ng/dL 0.76-1.46 [facility] GFR/1.73 sq M.predicted MDRD (S/P/Bld) [Vol rate/Area] 41 mL/min/{1.73_m2} Low >=60 mL/min/1.7 3m 2 [facility] Glucose [Mass/Vol] 195 mg/dL High 74-106 [facility] Potassium [Moles/Vol] 4.7 mmol/L 3.5-5.1 [facility] Protein [Mass/Vol] 7.7 g/dL 6.4-8.2 [facility] Sodium [Moles/Vol] 138 mmol/L 136-145 [facility] Triglyceride [Mass/Vol] 225 mg/dL High <=150 [facility] TSH Qn 4.503 m[IU]/L High 0.358-3.74 0 [facility] Urea nitrogen [Mass/Vol] 30.0 mg/dL High 7.0-18.0 [facility] Urea nitrogen/Creatinine [Mass ratio] 19.5 mg/mg [facility] Laboratory - Hematology and Cell countson 05-22-2024 Immature granulocytes/100 WBC (Bld) 0.4 % 0.0-0.5 [facility] Leukocytes [#/volume] correc ron for nucleated erythrocytes in Blood by Automated counon 05-22-2024 WBC corrected for nucl RBC Auto (Bld) [#/Vol] Leukocytes [#/volume] corrected for nucleated erythrocytes in Blood by Automated coun 4.0-11.0 [facility] Lymphocytes Auto (Bld) [#/Vo l]on 05-22-2024 Lymphocytes (Bld) [#/Vol] Lymphocytes [#/volume] in Blood by Automated count 1.2-3.8 [facility] Lymphocytes/100 WBC Auto (Bl d)on 05-22-2024 Lymphocytes/100 WBC (Bld) Lymphocytes/100 leukocytes in Blood by Automated count 20.5-60.0 [facility] MCH Auto (RBC) [Entitic mass ]on 05-22-2024 MCH (RBC) [Entitic mass] MCH [Entitic mass] by Automated count 26.7-34.0 [facility] MCHC Auto (RBC) [Mass/Vol]on 05-22-2024 MCHC (RBC) [Mass/Vol] MCHC [Mass/volume] by Automated count 29.9-35.2 [facility] MCV Auto (RBC) [Entitic vol] on 05-22-2024 MCV (RBC) [Entitic vol] MCV [Entitic volume] by Automated count 81.0-99.0 [facility] Monocytes Auto (Bld) [#/Vol] on 05-22-2024 Monocytes (Bld) [#/Vol] Automated blood monocyte count 0.3-0.8 [facility] Monocytes/100 WBC Auto (Bld) on 05-22-2024 Monocytes/100 WBC (Bld) Automated monocyte % 1.7-12.0 [facility] Neutrophils Auto (Bld) [#/Vo l]on 05-22-2024 Neutrophils (Bld) [#/Vol] Neutrophils [#/volume] in Blood by Automated count 1.4-6.5 [facility] Neutrophils/100 WBC Auto (Bl d)on 05-22-2024 Neutrophils/100 WBC (Bld) Automated neutrophil % 43.0-75.0 [facility] No Panel Informationon 05-22 Eosinophils # (Auto) 0.3 10 3/uL 0.0-0.7 [facility] Folate 24.10 ng/mL 8.60-58.90 [facility] Free Triiodothyronine 2.53 pg/mL 2.18-3.98 [facility] Immature Granulocyte # (Auto) 0.04 10 3/uL High 0.00-0.03 [facility] Platelet mean volume Auto (B ld) [Entitic vol]on 05-22-2024 Platelet mean volume (Bld) [Entitic vol] Platelet mean volume [Entitic volume] in Blood by Automated count 9.5-13.5 [facility] Platelets Auto (Bld) [#/Vol] on 05-22-2024 Platelets (Bld) [#/Vol] Platelets [#/volume] in Blood by Automated count 150-450 [facility] RBC Auto (Bld) [#/Vol]on RBC (Bld) [#/Vol] Erythrocytes [#/volu me] in Blood by Automated count 4.20-5.40 [facility] Serum or plasma albumin/glob ulin mass ratioon 05-22-2024 Albumin/Globulin [Mass ratio] Serum or plasma albumin/globulin mass ratio [facility] Serum or plasma anion gap de terminationon 05-22-2024 Anion gap [Moles/Vol] Serum or plasma an ion gap determination [facility] Serum or plasma total choles terol/high density lipoprotein (HDL) cholesterol mass jose 05-22-2024 Cholesterol.total/Chol esterol in HDL [Mass ratio] Serum or plasma total cholesterol/high density lipoprotein (HDL) cholesterol mass rat [facility] Comment on above: 3.3 - 4.4 LOW RISK4. 4 - 7.1 AVERAGE RISK7.1 - 11.0 MODERATE RISK>11.0 HIGH RISK NM heaven perf SPECT rest stron 03-02-2024 NM heaven perf SPECT rest str [facility] [place] [place] [address] Nuclear Medicine Report Signed Patient: Leslee Nevarez MR#: [id number] : 1955 Acct:[id number] Age/Sex: 68 / F ADM Date: 03/02/24 Loc: [place] Room: Type: [facility] Attending Dr: Eddie Urias MD Copies to: Eddie Urias MD, [facility] Ryne Johnson MD Ordering Provider: Eddie Urias MD, [facility] Date of Service: 03/02/24 NM/NM heaven perf SPECT rest str: R07.9 REFERRING PHYSICIAN: Eddie Urias MD REASON FOR THE STUDY: Chest [...] study available for comparison. Transcribed By: RACHEL 03/02/244 Dictated By: Ryne Johnson MD 03/02/24 1551 Signed By: 03/03/24 0704 Normal [facility] STR cardiac stress/cardiolon 03-02-2024 STR cardiac stress/cardiol [facility] Main [place] [address] [place] [address] Cardiac Stress Test Signed Patient: Leslee Nevarez MR#: [id number] : 1955 Acct:[id number] Age/Sex: 68 / F ADM Date: 03/02/24 Loc: [place] Room: Type: [facility] Attending Dr: Eddie Urias MD Copies to: DO Ryne Barlow [...] 1431 Signed By: 03/03/24 1440 Normal [facility] Globulin Calc (S) [Mass/Vol] on 02-22-2024 Globulin (S) [Mass/Vol] Serum globulin measurement by calculation (mass/volume) [facility] Laboratory - Chemistry and C hemistry - challengeon 02-22-2024 Albumin [Mass/Vol] 3.8 g/dL 3.4-5.0 [facility] ALP [Catalytic activity/Vol] 136 U/L High 46-116 [facility] ALT [Catalytic activity/Vol] 25 U/L 14-59 [facility] AST [Catalytic activity/Vol] 19 U/L 15-37 [facility] Bilirubin [Mass/Vol] 0.4 mg/dL 0.2-1.0 [facility] Bilirubin.direct [Mass/Vol] 0.1 mg/dL 0.0-0.2 [facility] Free T4 [Mass/Vol] 0.95 ng/dL 0.76-1.46 [facility] Protein [Mass/Vol] 7.7 g/dL 6.4-8.2 [facility] TSH Qn 10.261 m[IU]/L High 0.358-3.74 0 [facility] No Panel Informationon 02-21 Free Triiodothyronine 2.09 pg/mL Low 2.18-3.98 [facility] Serum or plasma albumin/glob ulin mass ratioon 02-22-2024 Albumin/Globulin [Mass ratio] Serum or plasma albumin/globulin mass ratio [facility] PROF CHEM 8 (BAS METB)on Anion gap [Moles/Vol] 14.4 mmol/L Normal Th e [facility] Comment on above: Performed By: #### B MP #### [facility] [address] [place] [address] [address] Raf Pearl Calcium [Mass/Vol] 9.3 mg/dL Normal 8.5-10.1 [facility] Comment on above: Performed By: #### B MP #### [facility] [address] [place] [address] [address] Raf Pearl Chloride [Moles/Vol] 102 mmol/L Normal 98-107 [facility] Comment on above: Performed By: #### B MP #### [facility] [address] [place] [address] [address] Raf Pearl CO2 [Moles/Vol] 26.9 mmol/L Normal 21.0-32.0 [facility] Comment on above: Performed By: #### B MP #### [facility] [address] [place] [address] [address] Raf Pearl Creatinine [Mass/Vol] 1.32 mg/dL Critically high 0.55-1.02 [facility] Comment on above: Performed By: #### B MP #### [facility] [address] [address] [address] Raf Pearl EGFR-AF LIBYAN 49 mL/min/1.73m2 Critically low >=60 [facility] Comment on above: Performed By: #### B MP #### [facility] [address] [place] [address] Dr. Raf Pearl EGFR-NON AF LIBYAN 40 mL/min/1.73m2 Critically low >=60 [facility] Comment on above: Performed By: #### B MP #### [facility] [address] [place] [address] [address] Raf Pearl Glucose [Mass/Vol] 151 mg/dL Critically high 74-106 T [facility] Comment on above: Performed By: #### B MP #### [facility] [address] [place] [address] [address] Raf Pearl Potassium [Moles/Vol] 4.3 mmol/L Normal 3.5-5.1 [facility] Comment on above: Performed By: #### B MP #### [facility] [address] [place] [address] [address] Raf Pearl Sodium [Moles/Vol] 139 mmol/L Normal 136-145 [facility] Comment on above: Performed By: #### B MP #### [facility] [address] [place] [address] [address] Raf Pearl Urea nitrogen [Mass/Vol] 17.0 mg/dL Normal 7.0-18.0 [facility] Comment on above: Performed By: #### B MP #### [facility] [address] [place] [address] [address] Raf Pearl Urea nitrogen/Creatinine [Mass ratio] 12.9 mg/mg Normal [facility] Comment on above: Performed By: #### B MP #### [facility] [address] [place] [address] [address] Raf Pearl PROF CHEM 8 (BAS METB)on Anion gap [Moles/Vol] 9.7 mmol/L Normal [facility] Comment on above: Performed By: #### B MP #### [facility] [address] [address] [address] Raf Pearl Calcium [Mass/Vol] 9.1 mg/dL Normal 8.5-10.1 [facility] Comment on above: Performed By: #### B MP #### [facility] [address] [place] [address] Dr. Raf Pearl Chloride [Moles/Vol] 100 mmol/L Normal 98-107 [facility] Comment on above: Performed By: #### B MP #### [facility] [address] [place] [address] [address] Raf Pearl CO2 [Moles/Vol] 28.0 mmol/L Normal 21.0-32.0 [facility] Comment on above: Performed By: #### B MP #### [facility] [address] [place] [address] Dr. Raf Pearl Creatinine [Mass/Vol] 1.18 mg/dL Critically high 0.55-1.02 [facility] Comment on above: Performed By: #### B MP #### [facility] [address] [place] [address] Dr. Raf Pearl EGFR-AF LIBYAN 56 mL/min/1.73m2 Critically low >=60 [facility] Comment on above: Performed By: #### B MP #### [facility] [address] [place] [address] [address] Raf Pearl EGFR-NON AF LIBYAN 46 mL/min/1.73m2 Critically low >=60 [facility] [facility] Comment on above: Performed By: #### B MP #### [facility] [address] [address] [address] Raf Pearl Glucose [Mass/Vol] 113 mg/dL Critically high 74-106 T [facility] Comment on above: Performed By: #### B MP #### [facility] [address] [address] [address] Raf Pearl Potassium [Moles/Vol] 3.7 mmol/L Normal 3.5-5.1 [facility] Comment on above: Performed By: #### B MP #### [facility] [address] [address] [address] Raf Pearl Sodium [Moles/Vol] 134 mmol/L Critically low 136-145 Th [facility] Comment on above: Performed By: #### B MP #### [facility] [address] [place] [address] Dr. Raf Pearl Urea nitrogen [Mass/Vol] 13.0 mg/dL Normal 7.0-18.0 [facility] Comment on above: Performed By: #### B MP #### [facility] [address] [address] [address] Raf Pearl Urea nitrogen/Creatinine [Mass ratio] 11.0 mg/mg Normal [facility] Comment on above: Performed By: #### B MP #### [facility] [address] [place] [address] Dr. Raf Pearl FOLATE ([facility])on Folate >20.0 Normal >3.0 [facility] Comment on above: Result Comment: A se rum folate concentration of less than 3.1 ng/mL is considered to represent clinical deficiency. Performed By: #### F OLALC #### [facility] [address] [address] [address] Raf Pearl CBC AUTO DIFFon 07-31-2022 BASO # 0.1 103/ul Normal 0.0-0.1 [facility] Comment on above: Performed By: #### M ALBR #### [facility] [address] [place] [address] Dr. Raf Pearl Basophils/100 WBC (Bld) 1.3 % Normal 0.2-2.0 [facility] Comment on above: Performed By: #### M ALBR #### [facility] [address] [place] [address] Dr. Raf Pearl EO # 0.4 103/ul Normal 0.0-0.7 [facility] Comment on above: Performed By: #### M ALBR #### [facility] [address] [place] [address] Dr. Raf Pearl Eosinophils/100 WBC (Bld) 4.5 % Normal 0.9-7.0 [facility] Comment on above: Performed By: #### M ALBR #### [facility] [address] [place] [address] Dr. Raf Pearl Erythrocyte distribution width (RBC) [Ratio] 13.2 % Normal 11.0-15.0 [facility] Comment on above: Performed By: #### M ALBR #### [facility] [address] [place] [address] Dr. Raf Pearl Hematocrit (Bld) [Volume fraction] 33.8 % Critically low 36.0-48.0 [facility] Comment on above: Performed By: #### M ALBR #### [facility] [address] [place] [address] Dr. Raf Pearl Hemoglobin (Bld) [Mass/Vol] 11.5 g/dL Critically low 12.0-16.0 [facility] Comment on above: Performed By: #### M ALBR #### [facility] [address] [place] [address] Dr. Raf Pearl IG # 0.02 10e3/ul Normal 0.00-0.03 [facility] Comment on above: Performed By: #### M ALBR #### [facility] [address] [place] [address] Dr. Raf Pearl IG % 0.2 % Normal 0.0-0.5 [facility] Comment on above: Performed By: #### M ALBR #### [facility] [address] [place] [address] Dr. Raf Pearl LYMPH # 2.6 103/ul Normal 1.2-3.8 [facility] Comment on above: Performed By: #### M ALBR #### [facility] [address] [place] [address] Dr. Raf Pearl Lymphocytes/100 WBC (Bld) 31.6 % Normal 20.5-60.0 [facility] Comment on above: Performed By: #### M ALBR #### [facility] [address] [place] [address] Dr. Raf Pearl MANUAL DIFF REQ NO Normal [facility] Comment on above: Performed By: #### M ALBR #### [facility] [address] [place] [address] Dr. Raf Pearl MCH (RBC) [Entitic mass] 31.1 pg Normal 26.7-34.0 [facility] Comment on above: Performed By: #### M ALBR #### [facility] [address] [place] [address] Dr. Raf Pearl MCHC (RBC) [Mass/Vol] 34.0 g/dL Normal 29.9-35.2 [facility] Comment on above: Performed By: #### M ALBR #### [facility] [address] [place] [address] Dr. Raf Pearl MCV (RBC) [Entitic vol] 91.4 fL Normal 81.0-99.0 [facility] Comment on above: Performed By: #### M ALBR #### [facility] [address] [place] [address] Dr. Raf Pearl MONO # 0.6 103/ul Normal 0.3-0.8 [facility] Comment on above: Performed By: #### M ALBR #### [facility] [address] [place] [address] Dr. Raf Pearl Monocytes/100 WBC (Bld) 7.2 % Normal 1.7-12.0 [facility] Comment on above: Performed By: #### M ALBR #### [facility] [address] [place] [address] Dr. Raf Pearl NEUT # 4.6 103/ul Normal 1.4-6.5 [facility] Comment on above: Performed By: #### M ALBR #### [facility] [address] [place] [address] Dr. Raf Pearl Neutrophils/100 WBC (Bld) 55.2 % Normal 43.0-75.0 [facility] Comment on above: Performed By: #### M ALBR #### [facility] [address] [place] [address] Dr. Raf Pearl Platelet mean volume (Bld) [Entitic vol] 10.0 fL Normal 9.5-13.5 [facility] Comment on above: Performed By: #### M ALBR #### [facility] [address] [place] [address] Dr. Raf Pearl PLT 352 103/ul Normal 150-450 [facility] Comment on above: Performed By: #### M ALBR #### [facility] [address] [place] [address] Dr. Raf Pearl RBC 3.70 106/ul Critically low 4.20-5.40 [facility] Comment on above: Performed By: #### M ALBR #### [facility] [address] [place] [address] Dr. Raf Pearl WBC 8.2 103/ul Normal 4.0-11.0 [facility] Comment on above: Performed By: #### M ALBR #### [facility] [address] [place] [address] Dr. Raf Pearl CULTURE URINEon 07-31-2022 CULTURE URINE Culture Observations : NO GROWTH. Normal [facility] Comment on above: Performed By: #### B MP #### [facility] [address] [place] [address] Dr. Raf Pearl GLYCOHEMOGLOBIN A1Con 2022 ADA RECOMMENDATION SEE BELOW Normal [facility] Comment on above: Result Comment: ADA RECOMMENDED LIMIT 4.0 - 6.0 ADA THERAPEUTIC TARGET < 7.0 ACTION SUGGESTED > 7.0 Performed By: #### B MP #### [facility] [address] [place] [address] Dr. Raf Pearl Glucose [Mass/Vol] 140 mg/dL Normal [facility] Comment on above: Performed By: #### B MP #### [facility] [address] [address] [address] Raf Pearl HbA1c (Bld) [Mass fraction] 6.5 % Critically high 4.5-6.2 [facility] Comment on above: Performed By: #### B MP #### [facility] [address] [address] [address] Raf Pearl LIPID PROFILEon 07-31-2022 CHOL-HDL RATIO NORM SEE BELOW Normal [facility] Comment on above: Result Comment: 3.3 - 4.4 LOW RISK 4.4 - 7.1 AVERAGE RISK 7.1 - 11.0 MODERATE RISK >11.0 HIGH RISK Performed By: #### C MP, LIPID, TSH #### [facility] [address] [address] [address] Raf Pearl Cholesterol [Mass/Vol] 166 mg/dL Normal <=200 Th [facility] Comment on above: Performed By: #### C MP, LIPID, TSH #### [facility] [address] [address] [address] Raf Pearl Cholesterol in HDL [Mass/Vol] 57 mg/dL Normal 40-60 [facility] Comment on above: Performed By: #### C MP, LIPID, TSH #### [facility] [address] [address] [address] Raf Pearl Cholesterol in LDL [Mass/Vol] 91.4 mg/dL Normal [facility] Comment on above: Performed By: #### C MP, LIPID, TSH #### [facility] [address] [address] [address] Raf Pearl Cholesterol.total/Chol esterol in HDL [Mass ratio] 2.9 {ratio} Normal [facility] Comment on above: Performed By: #### C MP, LIPID, TSH #### [facility] [address] [address] [address] Raf Pearl HDL NORMAL > or = 60 mg/dl - LO W CARDIOVASCULAR RISK <40 mg/dl - HIGH CARDIOVASCULAR RISK Normal [facility] Comment on above: Performed By: #### C MP, LIPID, TSH #### [facility] [address] [address] [address] Raf Pearl LDL CALC NORMAL SEE BELOW Normal [facility] Comment on above: Result Comment: <100 mg/dl OPTIMAL 100 - 129 mg/dl NEAR OR ABOVE OPTIMAL 130 - 159 mg/dl BORDERLINE HIGH 160 - 189 mg/dl HIGH >190 mg/dl VERY HIGH Performed By: #### C MP, LIPID, TSH #### [facility] [address] [address] [address] Raf Pearl Triglyceride [Mass/Vol] 88 mg/dL Normal <=150 [facility] Comment on above: Performed By: #### C MP, LIPID, TSH #### [facility] [address] [place] [address] Dr. Raf Pearl VLDL CALC 17.6 mg/dL Normal [facility] Comment on above: Performed By: #### C MP, LIPID, TSH #### [facility] [address] [place] [address] Dr. Raf Pearl MICROALBUMIN, RAND URon 07-17 mALB <1.3 Normal <=30.0 [facility] Comment on above: Performed By: #### M ALBR #### [facility] [address] [place] [address] Dr. Raf Pearl PROF 14(COMP METB)on 023 Albumin [Mass/Vol] 3.6 g/dL Normal 3.4-5.0 [facility] Comment on above: Performed By: #### C MP, LIPID, TSH #### [facility] [address] [address] [address] Raf Pearl Albumin/Globulin [Mass ratio] 1.0 {ratio} Normal [facility] Comment on above: Performed By: #### C MP, LIPID, TSH #### [facility] [address] [place] [address] Dr. Raf Pearl ALP [Catalytic activity/Vol] 70 U/L Normal 46-116 [facility] Comment on above: Performed By: #### C MP, LIPID, TSH #### [facility] [address] [address] [address] Raf Pearl ALT [Catalytic activity/Vol] 22 U/L Normal 14-59 [facility] Comment on above: Performed By: #### C MP, LIPID, TSH #### [facility] [address] [address] [address] Raf Pearl Anion gap [Moles/Vol] 11.8 mmol/L Normal [facility] Comment on above: Performed By: #### C MP, LIPID, TSH #### [facility] [address] [address] [address] Raf Pearl AST [Catalytic activity/Vol] 19 U/L Normal 15-37 [facility] Comment on above: Performed By: #### C MP, LIPID, TSH #### [facility] [address] [address] [address] Raf Pearl Bilirubin [Mass/Vol] 0.3 mg/dL Normal 0.2-1.0 [facility] Comment on above: Performed By: #### C MP, LIPID, TSH #### [facility] [address] [address] [address] Raf Pearl Calcium [Mass/Vol] 9.0 mg/dL Normal 8.5-10.1 [facility] Comment on above: Performed By: #### C MP, LIPID, TSH #### [facility] [address] [address] [address] Raf Pearl Chloride [Moles/Vol] 104 mmol/L Normal 98-107 [facility] Comment on above: Performed By: #### C MP, LIPID, TSH #### [facility] [address] [address] [address] Raf Pearl CO2 [Moles/Vol] 28.6 mmol/L Normal 21.0-32.0 [facility] Comment on above: Performed By: #### C MP, LIPID, TSH #### [facility] [address] [address] [address] Raf Pearl Creatinine [Mass/Vol] 1.48 mg/dL Critically high 0.55-1.02 [facility] Comment on above: Performed By: #### C MP, LIPID, TSH #### [facility] [address] [place] [address] Dr. Raf Pearl EGFR-AF LIBYAN 43 mL/min/1.73m2 Critically low >=60 [facility] Comment on above: Performed By: #### C MP, LIPID, TSH #### [facility] [address] [place] [address] Dr. Raf Pearl EGFR-NON AF LIBYAN 35 mL/min/1.73m2 Critically low >=60 [facility] Comment on above: Performed By: #### C MP, LIPID, TSH #### [facility] [address] [place] [address] Dr. Raf Pearl Globulin (S) [Mass/Vol] 3.5 g/dL Normal [facility] Comment on above: Performed By: #### C MP, LIPID, TSH #### [facility] [address] [place] [address] Dr. Raf Pearl Glucose [Mass/Vol] 102 mg/dL Normal 74-106 [facility] Comment on above: Performed By: #### C MP, LIPID, TSH #### [facility] [address] [place] [address] Dr. Raf Pearl Potassium [Moles/Vol] 4.4 mmol/L Normal 3.5-5.1 [facility] Comment on above: Performed By: #### C MP, LIPID, TSH #### [facility] [address] [place] [address] Dr. Raf Pearl Protein [Mass/Vol] 7.1 g/dL Normal 6.4-8.2 [facility] Comment on above: Performed By: #### C MP, LIPID, TSH #### [facility] [address] [place] [address] Dr. Raf Pearl Sodium [Moles/Vol] 140 mmol/L Normal 136-145 [facility] Comment on above: Performed By: #### C MP, LIPID, TSH #### [facility] [address] [place] [address] Dr. Raf Pearl Urea nitrogen [Mass/Vol] 21.0 mg/dL Critically high 7.0-18.0 [facility] Comment on above: Performed By: #### C MP, LIPID, TSH #### [facility] [address] [place] [address] Dr. Raf Pearl Urea nitrogen/Creatinine [Mass ratio] 14.2 mg/mg Normal [facility] Comment on above: Performed By: #### C MP, LIPID, TSH #### [facility] [address] [place] [address] Dr. Raf Pearl TSHon 07-31-2022 TSH 2.298 uIU/mL Normal 0.358-3.74 0 [facility] Comment on above: Performed By: #### C SHAMEKA, LIPID, TSH #### [facility] [address] [place] [address] Dr. Raf Pearl UA RANDOM W/MICROSCOPICon BACTERIA NONE SEEN Normal NONE SEEN [facility] Comment on above: Performed By: #### B MP #### [facility] [address] [place] [address] Dr. Raf Pearl Bilirubin Ql (U) Negative Normal NEGATIVE [facility] Comment on above: Performed By: #### B MP #### [facility] [address] [place] [address] Dr. Raf Pearl CAST NONE SEEN Normal NONE SEEN [facility] Comment on above: Performed By: #### B MP #### [facility] [address] [place] [address] Dr. Raf Pearl Clarity (U) CLEAR Normal CLEAR [facility] Comment on above: Performed By: #### B MP #### [facility] [address] [place] [address] Dr. Raf Pearl Color (U) LT. YELLOW Normal YELLOW [facility] Comment on above: Performed By: #### B MP #### [facility] [address] [place] [address] Dr. Raf Pearl Crystals LM Nom (Urine sed) NONE SEEN Normal NONE SEEN [facility] Comment on above: Performed By: #### B MP #### [facility] [address] [place] [address] Dr. Raf Pearl Epithelial cells LM Ql (Urine sed) NONE SEEN Normal NONE SEEN /RARE [facility] Comment on above: Performed By: #### B MP #### [facility] [address] [place] [address] Dr. Raf Pearl Glucose Ql (U) Negative Normal NEGATIVE [facility] Comment on above: Performed By: #### B MP #### [facility] [address] [place] [address] Dr. Raf Pearl Hemoglobin Ql (U) Negative Normal NEGATIVE [facility] Comment on above: Performed By: #### B MP #### [facility] [address] [place] [address] Dr. Raf Pearl Ketones Ql (U) Negative Normal NEGATIVE [facility] Comment on above: Performed By: #### B MP #### [facility] [address] [place] [address] Dr. Raf Pearl LEUKOCYTES Negative Normal NEGATIVE [facility] Comment on above: Performed By: #### B MP #### [facility] [address] [place] [address] Dr. Raf Pearl MUCOUS NONE SEEN Normal NONE SEEN [facility] Comment on above: Performed By: #### B MP #### [facility] [address] [place] [address] Dr. Raf Pearl Nitrite Ql (U) Negative Normal NEGATIVE [facility] Comment on above: Performed By: #### B MP #### [facility] [address] [place] [address] Dr. Raf Pearl pH (U) 7.0 [pH] Normal 5-9 [facility] Comment on above: Performed By: #### B MP #### [facility] [address] [place] [address] Dr. Raf Pearl RBC 0-2 Normal 0-2 [facility] Comment on above: Performed By: #### B MP #### [facility] [address] [place] [address] Dr. Raf Pearl SPEC GRAVITY <=1.005 Abnormal 1.005-<=1. 025 [facility] Comment on above: Performed By: #### B MP #### [facility] [address] [place] [address] Dr. Raf Pearl UA PROTEIN Negative Normal NEGATIVE/ TRACE [facility] Comment on above: Performed By: #### B MP #### [facility] [address] [place], [place] [id number] Dr. Raf Pearl Urobilinogen Qn (U) 0.2 {[place]'U}/dL Normal 0.2 - 1. 0 [facility] Comment on above: Performed By: #### B MP #### [facility] [address] [place] [address] Dr. Raf Pearl WBC NONE SEEN Normal NONE SEEN [facility] Comment on above: Performed By: #### B MP #### [facility] [address] [place] [address] Dr. Raf Pearl VITAMIN B12on 07-31-2022 Cobalamin (Vitamin B12) [Mass/Vol] 600.0 pg/mL Normal 193.0-986. 0 [facility] Comment on above: Performed By: #### B MP #### [facility] [address] [place] [address] Dr. Raf Pearl Covid-19 PCR ([facility])on 04-18 SARS-CoV-2 (COVID-19) RNA KHANH+probe Ql (Unsp spec) Not detected Normal NOT DETECTED [facility] Comment on above: Result Comment: When diagnostic [...] for this test is supported by the Qm Consultant of Health and Human Service's declaration that [...] used). Performed By: #### C VDTB #### [facility] [address] [place] [address] Dr. Raf Pearl INFLUENZA A AND B AGon 04-30 [facility] SEE BELOW Normal [facility] Comment on above: Result Comment: Nega tive for Flu A protein angiten. Infection due to Flu A cannot be ruled out. Flu A angiten in the sample may be below the detection limit of the test. Performed By: #### B MP #### [facility] [address] [place] [address] Dr. Raf [facility] Normal [facility] Comment on above: Result Comment: Nega tive for Flu B protein antigen. Infection due to Flu B cannot be ruled out. Flu B antigen in the sample may be below the detection limit of the test. Performed By: #### B MP #### [facility] [address] [place] [address] Dr. Raf Pearl INFLUENZA A AG Negative Normal NEGATIVE SEE COMMENT [facility] Comment on above: Performed By: #### B MP #### [facility] [address] [place] [address] Dr. Raf Pearl INFLUENZA B AG Negative Normal NEGATIVE SEE COMMENT [facility] Comment on above: Performed By: #### B MP #### [facility] [address] [place] [address] Dr. Raf Pearl XR CHEST 2 Von [...] by: BUDDY LEMOS Date: 2022-04-30 19:38 Normal [facility] PROF CHEM 8 (BAS METB)on Anion gap [Moles/Vol] 12.6 mmol/L Normal [facility] Comment on above: Performed By: #### B MP #### [facility] [address] [address] [address] Raf Pearl Calcium [Mass/Vol] 9.4 mg/dL Normal 8.5-10.1 [facility] Comment on above: Performed By: #### B MP #### [facility] [address] [address] [address] Raf Pearl Chloride [Moles/Vol] 99 mmol/L Normal 98-107 [facility] Comment on above: Performed By: #### B MP #### [facility] [address] [address] [address] Raf Pearl CO2 [Moles/Vol] 29.3 mmol/L Normal 21.0-32.0 [facility] Comment on above: Performed By: #### B MP #### [facility] [address] [address] [address] Raf Pearl Creatinine [Mass/Vol] 1.15 mg/dL Critically high 0.55-1.02 [facility] Comment on above: Performed By: #### B MP #### [facility] [address] [address] [address] Raf Pearl EGFR-AF LIBYAN 57 mL/min/1.73m2 Critically low >=60 [facility] Comment on above: Performed By: #### B MP #### [facility] [address] [address] [address] Raf Pearl EGFR-NON AF LIBYAN 47 mL/min/1.73m2 Critically low >=60 [facility] Comment on above: Performed By: #### B MP #### [facility] [address] [address] [address] Raf Pearl Glucose [Mass/Vol] 146 mg/dL Critically high 74-106 [facility] Comment on above: Performed By: #### B MP #### [facility] [address] [place] [address] Dr. Raf Pearl Potassium [Moles/Vol] 3.9 mmol/L Normal 3.5-5.1 [facility] Comment on above: Performed By: #### B MP #### [facility] [address] [place] [address] Dr. Raf Pearl Sodium [Moles/Vol] 137 mmol/L Normal 136-145 [facility] Comment on above: Performed By: #### B MP #### [facility] [address] [place] [address] Dr. Raf Pearl Urea nitrogen [Mass/Vol] 10.0 mg/dL Normal 7.0-18.0 [facility] Comment on above: Performed By: #### B MP #### [facility] [address] [place] [address] Dr. Raf Pearl Urea nitrogen/Creatinine [Mass ratio] 8.7 mg/mg Normal [facility] Comment on above: Performed By: #### B MP #### [facility] [address] [place] [address] Dr. Raf Pearl CBC AUTO DIFFon 01-22-2022 BASO # 0.1 103/ul Normal 0.0-0.1 [facility] Comment on above: Performed By: #### B MP #### [facility] [address] [place] [address] Dr. Raf Pearl Basophils/100 WBC (Bld) 1.5 % Normal 0.2-2.0 [facility] Comment on above: Performed By: #### B MP #### [facility] [address] [place] [address] Dr. Raf Pearl EO # 0.3 103/ul Normal 0.0-0.7 [facility] Comment on above: Performed By: #### B MP #### [facility] [address] [place] [address] Dr. Raf Pearl Eosinophils/100 WBC (Bld) 5.3 % Normal 0.9-7.0 [facility] Comment on above: Performed By: #### B MP #### [facility] [address] [place] [address] Dr. Raf Pearl Erythrocyte distribution width (RBC) [Ratio] 13.1 % Normal 11.0-15.0 [facility] Comment on above: Performed By: #### B MP #### [facility] [address] [place] [address] Dr. Raf Pearl Hematocrit (Bld) [Volume fraction] 36.4 % Normal 36.0-48.0 [facility] Comment on above: Performed By: #### B MP #### [facility] [address] [place] [address] Dr. Raf Pearl Hemoglobin (Bld) [Mass/Vol] 12.4 g/dL Normal 12.0-16.0 [facility] Comment on above: Performed By: #### B MP #### [facility] [address] [place] [address] Dr. Raf Pearl IG # 0.02 10e3/ul Normal 0.00-0.03 [facility] Comment on above: Performed By: #### B MP #### [facility] [address] [place] [address] Dr. Raf Pearl IG % 0.3 % Normal 0.0-0.5 [facility] Comment on above: Performed By: #### B MP #### [facility] [address] [place] [address] Dr. Raf Pearl LYMPH # 2.0 103/ul Normal 1.2-3.8 [facility] Comment on above: Performed By: #### B MP #### [facility] [address] [place] [address] Dr. Raf Pearl Lymphocytes/100 WBC (Bld) 31.6 % Normal 20.5-60.0 [facility] Comment on above: Performed By: #### B MP #### [facility] [address] [place] [address] Dr. Raf Pearl MANUAL DIFF REQ NO Normal [facility] Comment on above: Performed By: #### B MP #### [facility] [address] [place] [address] Dr. Raf Pearl MCH (RBC) [Entitic mass] 31.4 pg Normal 26.7-34.0 [facility] Comment on above: Performed By: #### B MP #### [facility] [address] [place] [address] Dr. Raf Pearl MCHC (RBC) [Mass/Vol] 34.1 g/dL Normal 29.9-35.2 [facility] Comment on above: Performed By: #### B MP #### [facility] [address] [place] [address] Dr. Raf Pearl MCV (RBC) [Entitic vol] 92.2 fL Normal 81.0-99.0 [facility] Comment on above: Performed By: #### B MP #### [facility] [address] [place] [address] Dr. Raf Pearl MONO # 0.4 103/ul Normal 0.3-0.8 [facility] Comment on above: Performed By: #### B MP #### [facility] [address] [place] [address] Dr. Raf Pearl Monocytes/100 WBC (Bld) 6.8 % Normal 1.7-12.0 [facility] Comment on above: Performed By: #### B MP #### [facility] [address] [place] [address] Dr. Raf Pearl NEUT # 3.4 103/ul Normal 1.4-6.5 [facility] Comment on above: Performed By: #### B MP #### [facility] [address] [place] [address] Dr. Raf Pearl Neutrophils/100 WBC (Bld) 54.5 % Normal 43.0-75.0 [facility] Comment on above: Performed By: #### B MP #### [facility] [address] [place] [address] Dr. Raf Pearl Platelet mean volume (Bld) [Entitic vol] 9.7 fL Normal 9.5-13.5 [facility] Comment on above: Performed By: #### B MP #### [facility] [address] [place] [address] Dr. Raf Pearl PLT 384 103/ul Normal 150-450 [facility] Comment on above: Performed By: #### B MP #### [facility] [address] [place] [address] Dr. Raf Pearl RBC 3.95 106/ul Critically low 4.20-5.40 [facility] Comment on above: Performed By: #### B MP #### [facility] [address] [place] [address] Dr. Raf Pearl WBC 6.2 103/ul Normal 4.0-11.0 [facility] Comment on above: Performed By: #### B MP #### [facility] [address] [place] [address] Dr. Raf Pearl GLYCOHEMOGLOBIN A1Con 2021 ADA RECOMMENDATION SEE BELOW Normal [facility] Comment on above: Result Comment: ADA RECOMMENDED LIMIT 4.0 - 6.0 ADA THERAPEUTIC TARGET < 7.0 ACTION SUGGESTED > 7.0 Performed By: #### A 1C #### [facility] [address] [place] [address] Dr. Raf Pearl Glucose [Mass/Vol] 137 mg/dL Normal [facility] Comment on above: Performed By: #### A 1C #### [facility] [address] [place] [address] Dr. Raf Pearl HbA1c (Bld) [Mass fraction] 6.4 % Critically high 4.5-6.2 [facility] Comment on above: Performed By: #### A 1C #### [facility] [address] [place] [address] Dr. Raf Pearl LIPID PROFILEon 01-22-2022 CHOL-HDL RATIO NORM SEE BELOW Normal [facility] Comment on above: Result Comment: 3.3 - 4.4 LOW RISK 4.4 - 7.1 AVERAGE RISK 7.1 - 11.0 MODERATE RISK >11.0 HIGH RISK Performed By: #### B MP #### [facility] [address] [place] [address] Dr. Raf Pearl Cholesterol [Mass/Vol] 165 mg/dL Normal <=200 Th [facility] Comment on above: Performed By: #### B MP #### [facility] [address] [place], [place] [address] Dr. Raf Pearl Cholesterol in HDL [Mass/Vol] 66 mg/dL Critically high 40-60 [facility] Comment on above: Performed By: #### B MP #### [facility] [address] [place], [place] [address] Dr. Raf Pearl Cholesterol in LDL [Mass/Vol] 87.8 mg/dL Normal [facility] Comment on above: Performed By: #### B MP #### [facility] [address] [place] [address] [address] Raf Pearl Cholesterol.total/Chol esterol in HDL [Mass ratio] 2.5 {ratio} Normal [facility] Comment on above: Performed By: #### B MP #### [facility] [address] [place] [address] [address] Raf Pearl HDL NORMAL > or = 60 mg/dl - LO W CARDIOVASCULAR RISK <40 mg/dl - HIGH CARDIOVASCULAR RISK Normal [facility] Comment on above: Performed By: #### B MP #### [facility] [address] [address] [address] Raf Pearl LDL CALC NORMAL SEE BELOW Normal [facility] Comment on above: Result Comment: <100 mg/dl OPTIMAL 100 - 129 mg/dl NEAR OR ABOVE OPTIMAL 130 - 159 mg/dl BORDERLINE HIGH 160 - 189 mg/dl HIGH >190 mg/dl VERY HIGH Performed By: #### B MP #### [facility] [address] [place] [address] [address] Raf Pearl Triglyceride [Mass/Vol] 56 mg/dL Normal <=150 [facility] Comment on above: Performed By: #### B MP #### [facility] [address] [place] [address] [address] Raf Pearl VLDL CALC 11.2 mg/dL Normal [facility] Comment on above: Performed By: #### B MP #### [facility] [address] [place] [address] Dr. Raf Pearl PROF 14(COMP METB)on 022 Albumin [Mass/Vol] 4.0 g/dL Normal 3.4-5.0 [facility] Comment on above: Performed By: #### B MP #### [facility] [address] [place] [address] Dr. Raf Pearl Albumin/Globulin [Mass ratio] 1.1 {ratio} Normal [facility] Comment on above: Performed By: #### B MP #### [facility] [address] [place] [address] Dr. Raf Pearl ALP [Catalytic activity/Vol] 81 U/L Normal 46-116 [facility] Comment on above: Performed By: #### B MP #### [facility] [address] [place] [address] Dr. Raf Pearl ALT [Catalytic activity/Vol] 26 U/L Normal 14-59 [facility] Comment on above: Performed By: #### B MP #### [facility] [address] [place] [address] Dr. Raf Pearl Anion gap [Moles/Vol] 12.1 mmol/L Normal [facility] Comment on above: Performed By: #### B MP #### [facility] [address] [place] [address] Dr. Raf Pearl AST [Catalytic activity/Vol] 16 U/L Normal 15-37 [facility] Comment on above: Performed By: #### B MP #### [facility] [address] [place] [address] Dr. Raf Pearl Bilirubin [Mass/Vol] 0.3 mg/dL Normal 0.2-1.0 [facility] Comment on above: Performed By: #### B MP #### [facility] [address] [place] [address] Dr. Raf Pearl Calcium [Mass/Vol] 9.2 mg/dL Normal 8.5-10.1 [facility] Comment on above: Performed By: #### B MP #### [facility] [address] [place] [address] Dr. Raf Pearl Chloride [Moles/Vol] 103 mmol/L Normal 98-107 [facility] Comment on above: Performed By: #### B MP #### [facility] [address] [address] [address] Raf Pearl CO2 [Moles/Vol] 26.9 mmol/L Normal 21.0-32.0 [facility] Comment on above: Performed By: #### B MP #### [facility] [address] [address] [address] Raf Pearl Creatinine [Mass/Vol] 1.17 mg/dL Critically high 0.55-1.02 [facility] Comment on above: Performed By: #### B MP #### [facility] [address] [address] [address] Raf Pearl EGFR-AF LIBYAN 56 mL/min/1.73m2 Critically low >=60 [facility] Comment on above: Performed By: #### B MP #### [facility] [address] [place] [address] [address] Raf Pearl EGFR-NON AF LIBYAN 46 mL/min/1.73m2 Critically low >=60 [facility] Comment on above: Performed By: #### B MP #### [facility] [address] [address] [address] Raf Pearl Globulin (S) [Mass/Vol] 3.6 g/dL Normal [facility] Comment on above: Performed By: #### B MP #### [facility] [address] [address] [address] Raf Pearl Glucose [Mass/Vol] 141 mg/dL Critically high 74-106 T [facility] Comment on above: Performed By: #### B MP #### [facility] [address] [address] [address] Raf Pearl Potassium [Moles/Vol] 4.0 mmol/L Normal 3.5-5.1 [facility] Comment on above: Performed By: #### B MP #### [facility] [address] [address] [address] Raf Pearl Protein [Mass/Vol] 7.6 g/dL Normal 6.4-8.2 [facility] Comment on above: Performed By: #### B MP #### [facility] [address] [address] [address] Raf Pearl Sodium [Moles/Vol] 138 mmol/L Normal 136-145 [facility] Comment on above: Performed By: #### B MP #### [facility] [address] [place], [place] [address] Dr. Raf Pearl Urea nitrogen [Mass/Vol] 19.0 mg/dL Critically high 7.0-18.0 [facility] Comment on above: Performed By: #### B MP #### [facility] [address] [place] [id number] Raf Pearl Urea nitrogen/Creatinine [Mass ratio] 16.2 mg/mg Normal [facility] Comment on above: Performed By: #### B MP #### [facility] [address] [place] [address] Dr. Raf Pearl VIT B12 AND FOLATEon 022 Cobalamin (Vitamin B12) [Mass/Vol] 786.0 pg/mL Normal 193.0-986. 0 [facility] Comment on above: Performed By: #### B 12FOL #### [facility] [address] [address] [address] Raf Pearl FOLATE 21.80 ng/mL Normal 8.60-58.90 [facility] Comment on above: Performed By: #### B 12FOL #### [facility] [address] [place] [address] Dr. Raf Pearl CERVICAL SPINE 2 OR 3 [facility] 11-02-2018 CERVICAL SPINE 2 OR 3 [facility] Department of Radiology [address] [place] [id number] Patient Name: CRISELDA NEVAREZ : 1955 Sex: F Age: Race: White [...] , , Ordering Provider - A ROSIE [employer] , Exam: CERVICAL SPINE 2 OR 3 [...] (X-RAY, CERVICAL SPINE): AP, ...More In Sending upstairs maid COMMENTS: Post op x 08/23/2018 ortho follow [...] by:Anthony Giron on 11/03/2018 4:49 PM EDT. IEddie, have reviewed the images and report and concur with these findings. Electronically signed by:Eddie Miles. Transcribed by: [email or web address], User Resident: ANTHONY SUNG Electronically Signed by: EDDIE MILES @ 11/04/2018 04:42 PM I personally read this/these film(s) with this resident Normal [facility] Comment on above: Order Comment: , pos top, eval hardware and alignment , Views (X-RAY, CERVICAL SPINE): AP, Lateral, Odontoid , postop, eval hardware and alignment , Views (X-RAY, CERVICAL SPINE): AP, Lateral, Odontoid , , , Ordering Provider - Jayesh [employer] , POC GLUCOSE LABon 08-25-2018 Glucose [Mass/Vol] 208 mg/dL High 70-100 [facility] Comment on above: Performed By: #### 5 [id number], [id number] #### [facility] [address] [place] [address], [place] Glucose [Mass/Vol] 98 mg/dL Normal 70-100 [facility] Comment on above: Performed By: #### 5 6101, [id number] #### [facility] [address] [place] [address], [place] BASIC METABOLIC PANELon 05- Calcium [Mass/Vol] 7.7 mg/dL Low 8.6-10.3 [facility] Comment on above: Order Comment: No: D o not add to previous draw Performed By: #### 5 0103 #### [facility] [address] [place] [address], [place] Chloride [Moles/Vol] 109 mmol/L High 98-107 [facility] Comment on above: Order Comment: No: D o not add to previous draw Performed By: #### 5 0103 #### [facility] [address] [place] [address], [place] CO2 [Moles/Vol] 24 mmol/L Normal 21-31 [facility] Comment on above: Order Comment: No: D o not add to previous draw Performed By: #### 5 0103 #### [facility] [address] [place] [address], [place] Creatinine [Mass/Vol] 0.89 mg/dL Normal 0.60-1.20 [facility] Comment on above: Order Comment: No: D o not add to previous draw Performed By: #### 5 0103 #### [facility] [address] [place] [address], [place] GFR/1.73 sq M predicted among blacks MDRD (S/P/Bld) [Vol rate/Area] mL/min/{1.73_m2} Normal >60 [facility] Comment on above: Order Comment: No: D o not add to previous draw Performed By: #### 5 0103 #### [facility] [address] [place] [address], [place] GFR/1.73 sq M predicted among non-blacks MDRD (S/P/Bld) [Vol rate/Area] mL/min/{1.73_m2} Normal >60 [facility] Comment on above: Order Comment: No: D o not add to previous draw Performed By: #### 5 0103 #### [facility] [address] [place] [address], [place] Glucose [Mass/Vol] 94 mg/dL Normal 70-100 [facility] Comment on above: Order Comment: No: D o not add to previous draw Performed By: #### 5 0103 #### [facility] [address] [place] [address], [place] Potassium [Moles/Vol] 3.3 mmol/L Low 3.5-5.1 [facility] Comment on above: Order Comment: No: D o not add to previous draw Performed By: #### 5 0103 #### [facility] [address] [place] [address], [place] Sodium [Moles/Vol] 140 mmol/L Normal 136-145 [facility] Comment on above: Order Comment: No: D o not add to previous draw Performed By: #### 5 0103 #### [facility] [address] [place] [address], [facility] Urea nitrogen [Mass/Vol] 11 mg/dL Normal 7-25 [facility] Comment on above: Order Comment: No: D o not add to previous draw Performed By: #### 5 0103 #### [facility] [address] CBC W/DIFFon 08-24-2018 ABS BASOPHILS 0.0 10*3/uL Normal 0.0-0.2 [facility] Comment on above: Order Comment: No: D o not add to previous draw Performed By: #### 5 0103 #### [facility] [address] [place] [address], [facility] ABS IMM GRANS 0.1 10*3/uL Normal 0.0-0.2 [facility] Comment on above: Order Comment: No: D o not add to previous draw Performed By: #### 5 0103 #### [facility] [address] [place] [address], [facility] ABS NEUTROPHILS 12.5 10*3/uL High 1.6-7.6 [facility] Comment on above: Order Comment: No: D o not add to previous draw Performed By: #### 5 0103 #### [facility] [address] [place] [address], [facility] Basophils/100 WBC (Bld) 0.3 % Normal 0.0-1.0 [facility] Comment on above: Order Comment: No: D o not add to previous draw Performed By: #### 5 0103 #### [facility] [address] [place] [address], [facility] Eosinophils (Bld) [#/Vol] 0.0 10*3/uL Normal 0.0-0.5 [facility] Comment on above: Order Comment: No: D o not add to previous draw Performed By: #### 5 0103 #### [facility] [address] [place] [address], [facility] Eosinophils/100 WBC (Bld) 0.0 % Normal 0.0-6.0 [facility] Comment on above: Order Comment: No: D o not add to previous draw Performed By: #### 5 0103 #### [facility] [address] Erythrocyte distribution width (RBC) [Ratio] 13.0 % Normal 11.5-15.0 [facility] Comment on above: Order Comment: No: D o not add to previous draw Performed By: #### 5 0103 #### [facility] [address] [place] [address], [facility] Hematocrit (Bld) [Volume fraction] 31.7 % Low 36.0-45.0 [facility] Comment on above: Order Comment: No: D o not add to previous draw Performed By: #### 5 0103 #### [facility] [address] [place] [address], [facility] Hemoglobin (Bld) [Mass/Vol] 10.3 g/dL Low 12.0-15.0 [facility] Comment on above: Order Comment: No: D o not add to previous draw Performed By: #### 5 0103 #### [facility] [address] [place] [address], [facility] IMMATURE GRANS 0.5 % Normal 0.0-1.0 [facility] Comment on above: Order Comment: No: D o not add to previous draw Performed By: #### 5 0103 #### [facility] [address] [place] [address], [facility] Lymphocytes (Bld) [#/Vol] 1.9 10*3/uL Normal 1.2-4.0 [facility] Comment on above: Order Comment: No: D o not add to previous draw Performed By: #### 5 0103 #### [facility] [address] [place] [address], [facility] Lymphocytes/100 WBC (Bld) 11.9 % Low 20.0-45.0 [facility] Comment on above: Order Comment: No: D o not add to previous draw Performed By: #### 5 0103 #### [facility] [address] [place] [address], [facility] MCH (RBC) [Entitic mass] 31.7 pg Normal 27.0-33.0 [facility] Comment on above: Order Comment: No: D o not add to previous draw Performed By: #### 5 0103 #### [facility] [address] [facility] [place] [address], [facility] MCHC (RBC) [Mass/Vol] 32.5 g/dL Normal 32.0-35.0 [facility] Comment on above: Order Comment: No: D o not add to previous draw Performed By: #### 5 0103 #### [facility] [address] [facility] [place] [id number], [facility] MCV (RBC) [Entitic vol] 97.5 fL Normal 82.0-98.0 [facility] Comment on above: Order Comment: No: D o not add to previous draw Performed By: #### 5 0103 #### [facility] [address] [facility] [place] [id number], [facility] Monocytes (Bld) [#/Vol] 1.2 10*3/uL High 0.1-1.0 [facility] Comment on above: Order Comment: No: D o not add to previous draw Performed By: #### 5 0103 #### [facility] [address] [place] [address], [facility] MONOS 7.7 % Normal 5.0-12.0 [facility] Comment on above: Order Comment: No: D o not add to previous draw Performed By: #### 5 0103 #### [facility] [address] [place] [id number], [facility] Neutrophils/100 WBC (Bld) 79.6 % High 40.0-72.0 [facility] Comment on above: Order Comment: No: D o not add to previous draw Performed By: #### 5 0103 #### [facility] [address] [place] [id number], [facility] Nucleated RBC/100 WBC (Bld) [Ratio] 0 % Normal 0-0 [facility] Comment on above: Order Comment: No: D o not add to previous draw Performed By: #### 5 0103 #### [facility] [address] [place] [id number], [facility] PLAT CNT 263 10*3/uL Normal 150-400 [facility] Comment on above: Order Comment: No: D o not add to previous draw Performed By: #### 5 0103 #### [facility] [address] [place] [id number], [facility] RBC (Bld) [#/Vol] 3.25 10*6/uL Low 3.80-5.00 [facility] Comment on above: Order Comment: No: D o not add to previous draw Performed By: #### 5 0103 #### [facility] [address] [place] [address], [facility] WBC (Bld) [#/Vol] 15.70 10*3/uL High 4.00-10.60 [facility] Comment on above: Order Comment: No: D o not add to previous draw Performed By: #### 5 0103 #### [facility] [address] [place] [id number], [facility] LIPID PROFILEon 08-24-2018 Cholesterol [Mass/Vol] 128 mg/dL Normal 120-200 [facility] Comment on above: Order Comment: No: D o not add to previous draw Result Comment: CHOL ESTEROL REFERENCE RANGE: 20 YEARS AND OLDER CARDIOVASCULAR RISK Less than 200 mg/dl Low Risk 200 to 239 mg/dl Borderline Risk 240 mg/dl and greater High Risk Performed By: #### 5 0103 #### [facility] [address] [place] [address], [place] Cholesterol in HDL [Mass/Vol] 49 mg/dL Normal 23-92 [facility] Comment on above: Order Comment: No: D o not add to previous draw Result Comment: Slig ht variation in normal range could be due to gender and/or age. HDL CHOLESTEROL REFERENCE RANGE: 20 years and older Cardiovascular Risk > or =60 mg/dL Desirable 40 TO 59 mg/dL Low Risk <40 mg/dL High Risk Performed By: #### 5 0103 #### [facility] [address] [place] [address], [facility] Cholesterol in LDL [Mass/Vol] 65 mg/dL Normal 0-130 [facility] Comment on above: Order Comment: No: D o not add to previous draw Result Comment: LDL IS A CALCULATION LDL IS ONLY VALID IF THE TRIG IS LESS THAN 400. Performed By: #### 5 0103 #### [facility] [address] [place] [address], [place] Cholesterol.total/Chol esterol in HDL [Mass ratio] 2.6 {ratio} Normal .0-4.5 [facility] Comment on above: Order Comment: No: D o not add to previous draw Performed By: #### 5 0103 #### [facility] [address] [place] [address], [place] NON-HDL CHOLESTEROL 79 mg/dL Normal [facility] Comment on above: Order Comment: No: D o not add to previous draw Performed By: #### 5 0103 #### [facility] [address] [place] [address], [place] Triglyceride [Mass/Vol] 69 mg/dL Normal 40-149 [facility] Comment on above: Order Comment: No: D o not add to previous draw Result Comment: TRIG LYCERIDE REFERENCE RANGE: 20 YEARS AND OLDER CARDIOVASCULAR RISK LESS THAN 150 mg/dl LOW RISK 150 TO 199 mg/dl BORDERLINE RISK 200 mg/dl AND GREATER HIGH RISK Performed By: #### 5 0103 #### [facility] [address] [place] [address], [place] VLDL CHOL 14 mg/dL Normal 0-40 [facility] Comment on above: Order Comment: No: D o not add to previous draw Performed By: #### 5 0103 #### [facility] [address] [place] [address], [place] POC GLUCOSE LABon 08-24-2018 Glucose [Mass/Vol] 162 mg/dL High 70-100 [facility] Comment on above: Performed By: #### 5 610, 71257 #### [facility] [address] [place] [address], [place] Glucose [Mass/Vol] 146 mg/dL High 70-100 [facility] Comment on above: Performed By: #### 5 610, [id number] #### [facility] [address] [place] [address], [place] Glucose [Mass/Vol] 213 mg/dL High 70-100 [facility] Comment on above: Performed By: #### 5 6101, [id number] #### [facility] [address] [place] [address], [place] Glucose [Mass/Vol] 81 mg/dL Normal 70-100 [facility] Comment on above: Performed By: #### 5 6101, [id number] #### [facility] [address] [place] [address], [place] BASIC METABOLIC PANELon Calcium [Mass/Vol] 8.4 mg/dL Low 8.6-10.3 [facility] Comment on above: Order Comment: Yes: Add to Previous draw if able Performed By: #### 5 0103 #### [facility] [address] [place] [address], [place] Chloride [Moles/Vol] 103 mmol/L Normal 98-107 [facility] Comment on above: Order Comment: Yes: Add to Previous draw if able Performed By: #### 5 0103 #### [facility] [address] [place] [address], [place] CO2 [Moles/Vol] 26 mmol/L Normal 21-31 [facility] Comment on above: Order Comment: Yes: Add to Previous draw if able Performed By: #### 5 0103 #### [facility] [address] [place] [address], [place] Creatinine [Mass/Vol] 1.03 mg/dL Normal 0.60-1.20 [facility] Comment on above: Order Comment: Yes: Add to Previous draw if able Performed By: #### 5 0103 #### [facility] [address] [place] [address], [place] GFR/1.73 sq M predicted among blacks MDRD (S/P/Bld) [Vol rate/Area] mL/min/{1.73_m2} Normal >60 [facility] Comment on above: Order Comment: Yes: Add to Previous draw if able Performed By: #### 5 3 #### [facility] [address] [place] [address], [place] GFR/1.73 sq M predicted among non-blacks MDRD (S/P/Bld) [Vol rate/Area] 54 ml/min/1.73sq m Abnormal >60 [facility] Comment on above: Order Comment: Yes: Add to Previous draw if able Performed By: #### 5 0103 #### [facility] [address] [place] [address], [place] Glucose [Mass/Vol] 209 mg/dL High 70-100 [facility] Comment on above: Order Comment: Yes: Add to Previous draw if able Performed By: #### 5 0103 #### [facility] [address] [place] [address], [facility] Potassium [Moles/Vol] 3.9 mmol/L Normal 3.5-5.1 [facility] Comment on above: Order Comment: Yes: Add to Previous draw if able Performed By: #### 3 #### [facility] [address] [place] [id number], [facility] Sodium [Moles/Vol] 135 mmol/L Low 136-145 [facility] Comment on above: Order Comment: Yes: Add to Previous draw if able Performed By: #### 102 #### [facility] [address] [place] [address], [facility] Urea nitrogen [Mass/Vol] 16 mg/dL Normal 7-25 [facility] Comment on above: Order Comment: Yes: Add to Previous draw if able Performed By: #### 3 #### [facility] [address] CBC COMPLETE BLOOD COUNTon 0 - Erythrocyte distribution width (RBC) [Ratio] 12.8 % Normal 11.5-15.0 [facility] Comment on above: Order Comment: Yes: Add to Previous draw if able Performed By: #### 102 #### [facility] [address] [place] [address], [facility] Hematocrit (Bld) [Volume fraction] 35.0 % Low 36.0-45.0 [facility] Comment on above: Order Comment: Yes: Add to Previous draw if able Performed By: #### 3 #### [facility] [address] [place] [address], [facility] Hemoglobin (Bld) [Mass/Vol] 11.2 g/dL Low 12.0-15.0 [facility] Comment on above: Order Comment: Yes: Add to Previous draw if able Performed By: #### 3 #### [facility] [address] MCH (RBC) [Entitic mass] 31.5 pg Normal 27.0-33.0 [facility] Comment on above: Order Comment: Yes: Add to Previous draw if able Performed By: #### 5 3 #### [facility] [address] [place] [address], [facility] MCHC (RBC) [Mass/Vol] 32.0 g/dL Normal 32.0-35.0 [facility] Comment on above: Order Comment: Yes: Add to Previous draw if able Performed By: #### 3 #### [facility] [address] [place] [address], [facility] MCV (RBC) [Entitic vol] 98.3 fL High 82.0-98.0 [facility] Comment on above: Order Comment: Yes: Add to Previous draw if able Performed By: #### 5 3 #### [facility] [address] [place] [address], [facility] Nucleated RBC/100 WBC (Bld) [Ratio] 0 % Normal 0-0 [facility] Comment on above: Order Comment: Yes: Add to Previous draw if able Performed By: #### 5 3 #### [facility] [address] [place] [address], [facility] PLAT CNT 276 10*3/uL Normal 150-400 [facility] Comment on above: Order Comment: Yes: Add to Previous draw if able Performed By: #### 5 0103 #### [facility] [address] [place] [address], [facility] RBC (Bld) [#/Vol] 3.56 10*6/uL Low 3.80-5.00 [facility] Comment on above: Order Comment: Yes: Add to Previous draw if able Performed By: #### 5 102 #### [facility] [address] [place] [address], [facility] WBC (Bld) [#/Vol] 14.61 10*3/[facility] 4.00-10.60 [facility] Comment on above: Order Comment: Yes: Add to Previous draw if able Performed By: #### 5 0103 #### [address] CERVICAL SPINE 2 OR 3 [facility] 08-23-2018 CERVICAL SPINE 2 OR 3 [facility] Department of Radiology [address] [place] [id number] Patient Name: CRISELDA NEVAREZ : 1955 Sex: F Age: Race: White Pt. Location: OUTP Patient Status: I Ordered Date: 08/23/2018 9:00:00 AM Completed Date: 08/23/2018 11:29 AM Requesting Provider: MICHEAL NEWMAN Attending Provider: MICHEAL NEWMAN Report Copy To: Signs & Symptoms: C4-C5, C5-C6 ANTERIOR CERVICAL DISCECTOMY WITH FUSION History: C4-C5, C5-C6 ANTERIOR CERVICAL DISCECTOMY WITH FUSION Comments: C4-C5, C5-C6 ANTERIOR CERVICAL DISCECTOMY WITH FUSION Exam: CERVICAL SPINE 2 OR 3 [facility] CERVICAL SPINE 2 OR 3 [facility] 08/23/2018 11:29 AM EDT SIGNS AND SYMPTOMS: C4-C5, C5-C6 ANTERIOR CERVICAL DISCECTOMY WITH FUSION TECHNOLOGIST COMMENTS: C4-C5, C5-C6 ANTERIOR CERVICAL DISCECTOMY WITH FUSION Dr. Medhkour 15 seconds fluoro time QUESTION FOR THE RADIOLOGIST: C4-C5, C5-C6 ANTERIOR CERVICAL DISCECTOMY WITH FUSION PROTOCOLS: AP, Odontoid and Lateral views were obtained. COMPARISON: None FINDINGS: Multiple spot fluoroscopic images demonstrate anterior and interbody fusion C4 through C6. IMPRESSION: Multiple spot fluoroscopic images demonstrate anterior and interbody fusion C4 through C6. Electronically signed by:Xiomara Dumont. Transcribed by: [email or web address], User Resident: Electronically Signed by: XIOMARA DUMONT @ 08/23/2018 04:07 PM Normal [facility] Comment on above: Order Comment: C4-C5 , C5-C6 ANTERIOR CERVICAL DISCECTOMY WITH FUSION Operative Reporton 9 Operative Report MR#: [id number] [facility] Pt. Name: Criselda Nevarez Room #: 0C Discharge Date: Birthdate: 1955 OPERATIVE REPORT DATE OF SURGERY: 08/23/2018 SURGEON: Micheal Newman M.D. 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 POSTOPERATIVE DIAGNOSIS: Herniated cervical disk and spinal stenosis from C4 through C6. ACTIVITIES SPECIALIST: ELIDIA Castle. ANESTHESIA: Endotracheal, Dr. Falcon. PROCEDURE: [...] size 8 at C5-6. The plate was [employer], size 35 mm. The screws were 6, size 4 x 14. Once this decompression completed, SSEP remained stable and MEP were normal. The BERTA was brought in and placed and closure was carried out in usual fashion. The patient tolerated the procedure well. Electronically Signed by: Micheal Newman M.D. 09/07/2018 04:43 P Micheal Newman M.D. Date Dict: 08/23/2018/12:00 P/Micheal Newman M.D. Date Trans: 08/23/2018 01:26 P/mmo [id number] Normal [facility] POC GLUCOSE LABon 08-23-2018 Glucose [Mass/Vol] 157 mg/dL High 70-100 [facility] Comment on above: Performed By: #### 5 0103 #### [facility] [address] [place] [address], [place] Glucose [Mass/Vol] 190 mg/dL High 70-100 [facility] Comment on above: Performed By: #### 5 0103 #### [facility] [address] [place] [address], [place] Glucose [Mass/Vol] 182 mg/dL High 70-100 [facility] Comment on above: Performed By: #### 5 0103 #### [facility] [address] [place] [address], [place] Glucose [Mass/Vol] 94 mg/dL Normal 70-100 [facility] Comment on above: Performed By: #### 5 0103 #### [facility] [address] [facility] [place] [address], [facility] *MRSA/MSSA DNA NASALon 08-08 *MRSA/MSSA DNA NASAL Clinical Report: (D ) Specimen: NASAL SWAB Collected: 08/08/2018 15:04 Status: Final Last Updated: 08/08/2018 20:45 MSSA DNA (Final) Negative MRSA DNA (Final) Negative Normal [facility] Comment on above: Performed By: #### 3 1595 #### [facility] [address] [facility] [place] [address], [facility] *URINE CULTUREon 08-08-2018 Bacteria identified Cx Nom (U) Clinical Report: (D) Specimen: URINE Collected: 08/08/2018 15:04 Status: Final Last Updated: 08/11/2018 09:23 ISO (Final) Presumptive Citrobacter amalonaticus complex >100,000 Cfu/Ml ISO (Final) Proteus mirabilis 10,000 - 50,000 Cfu/Ml ISOLATE: ISOLATE: Citrobacter amalonaticus Proteus mirabilis complex TUCKER (mcg/ml) AMP./SULBAC (AMS) 4/2 Susceptible <=1/0.5 Susceptible AMPICILLIN (AM) >16 Resistant <=2 Susceptible AZTREONAM (AZM) <=1 Susceptible AZTREONAM (AZM) <=1 Susceptible CEFAZOLIN (CZ) 2 Susceptible 4 Susceptible CEFTRIAXONE (TIRE SHOP MANAGER) <=0.5 Susceptible <=0.5 Susceptible CIPROFLOXACIN (CIP) <=0.5 Susceptible <=0.5 Susceptible GENTAMICIN (GM) 1 Susceptible 4 Susceptible MEROPENEM (MEM) <=0.125 Susceptible NITROFURANTOIN (FT) 32 Susceptible >64 Resistant PIP/TAZO (TZP) 4/4 Susceptible PIP/TAZO (TZP) <=2/4 Susceptible TOBRAMYCIN (TOB) 1 Susceptible 2 Susceptible TRIMETH/SULFA (SXT) <=0.5/9.5 Susceptible <=0.5/9.5 Susceptible Antibiotic Summary Grid: AMS AM AZM CZ TIRE SHOP MANAGER CIP GM MEM FT TZP TOB Citrobacter S R S S S S S S S S S amalonaticus complex Proteus mirabilis S S S S S S S R S S SXT Citrobacter S amalonaticus complex Proteus mirabilis S Normal [facility] Comment on above: Performed By: #### 3 0339 #### [facility] [address] APTTon 08-08-2018 aPTT Coag (Bld) [Time] 28.0 s Normal 25.0-35.0 [facility] Comment on above: Result Comment: ALL RESULTS [...] THIS PURPOSE. Performed By: #### 5 6101, [id number] #### [facility] [address] [place] [address], [facility] BASIC METABOLIC PANELon - Calcium [Mass/Vol] 9.6 mg/dL Normal 8.6-10.3 [facility] Comment on above: Performed By: #### 0 0071 #### [facility] [address] [place] [address], [place] Chloride [Moles/Vol] 103 mmol/L Normal 98-107 [facility] Comment on above: Performed By: #### 0 0071 #### [facility] [address] [place] [address], [place] CO2 [Moles/Vol] 30 mmol/L Normal 21-31 [facility] Comment on above: Performed By: #### 0 0071 #### [facility] [address] [place] [address], [facility] Creatinine [Mass/Vol] 1.07 mg/dL Normal 0.60-1.20 [facility] Comment on above: Performed By: #### 0 0071 #### [facility] [address] [place] [address], [place] GFR/1.73 sq M predicted among blacks MDRD (S/P/Bld) [Vol rate/Area] mL/min/{1.73_m2} Normal >60 [facility] Comment on above: Performed By: #### 0 0071 #### [facility] [address] [place] [address], [place] GFR/1.73 sq M predicted among non-blacks MDRD (S/P/Bld) [Vol rate/Area] 52 ml/min/1.73sq m Abnormal >60 [facility] Comment on above: Performed By: #### 0 0071 #### [facility] [address] [place] [address], [place] Glucose [Mass/Vol] 93 mg/dL Normal 70-100 [facility] Comment on above: Performed By: #### 0 0071 #### [facility] [address] Potassium [Moles/Vol] 4.2 mmol/L Normal 3.5-5.1 [facility] Comment on above: Performed By: #### 0 0071 #### [facility] [address] Sodium [Moles/Vol] 139 mmol/L Normal 136-145 [facility] Comment on above: Performed By: #### 0 0071 #### [facility] [address] Urea nitrogen [Mass/Vol] 18 mg/dL Normal 7-25 [facility] Comment on above: Performed By: #### 0 0071 #### [facility] [address] CBC W/DIFFon 08-08-2018 ABS BASOPHILS 0.1 10*3/uL Normal 0.0-0.2 [facility] Comment on above: Performed By: #### 5 3 #### [facility] [address] ABS IMM GRANS 0.0 10*3/uL Normal 0.0-0.2 [facility] Comment on above: Performed By: #### 5 0103 #### [facility] [address] ABS NEUTROPHILS 5.0 10*3/uL Normal 1.6-7.6 [facility] Comment on above: Performed By: #### 5 3 #### [facility] [address] Basophils/100 WBC (Bld) 0.9 % Normal 0.0-1.0 [facility] Comment on above: Performed By: #### 5 0103 #### [facility] [address] [place] [address], [facility] Eosinophils (Bld) [#/Vol] 0.2 10*3/uL Normal 0.0-0.5 [facility] Comment on above: Performed By: #### 3 #### [facility] [address] [facility] [place] [address], [facility] Eosinophils/100 WBC (Bld) 1.8 % Normal 0.0-6.0 [facility] Comment on above: Performed By: #### 3 #### [facility] [address] Erythrocyte distribution width (RBC) [Ratio] 13.1 % Normal 11.5-15.0 [facility] Comment on above: Performed By: #### 102 #### [facility] [address] Hematocrit (Bld) [Volume fraction] 37.2 % Normal 36.0-45.0 [facility] Comment on above: Performed By: #### 102 #### [facility] [address] Hemoglobin (Bld) [Mass/Vol] 12.3 g/dL Normal 12.0-15.0 [facility] Comment on above: Performed By: #### 3 #### [facility] [address] IMMATURE GRANS 0.5 % Normal 0.0-1.0 [facility] Comment on above: Performed By: #### 102 #### [facility] [address] [facility] [place] [address], [facility] Lymphocytes (Bld) [#/Vol] 2.2 10*3/uL Normal 1.2-4.0 [facility] Comment on above: Performed By: #### 102 #### [facility] [address] [place] [address], [facility] Lymphocytes/100 WBC (Bld) 26.5 % Normal 20.0-45.0 [facility] Comment on above: Performed By: #### 3 #### [facility] [address] [place] [address], [facility] MCH (RBC) [Entitic mass] 31.4 pg Normal 27.0-33.0 [facility] Comment on above: Performed By: #### 3 #### [facility] [address] [facility] [place] [address], [facility] MCHC (RBC) [Mass/Vol] 33.1 g/dL Normal 32.0-35.0 [facility] Comment on above: Performed By: #### 3 #### [facility] [address] [facility] [place] [address], [facility] MCV (RBC) [Entitic vol] 94.9 fL Normal 82.0-98.0 [facility] Comment on above: Performed By: #### 3 #### [facility] [address] [facility] [place] [address], [facility] Monocytes (Bld) [#/Vol] 0.7 10*3/uL Normal 0.1-1.0 [facility] Comment on above: Performed By: #### 3 #### [facility] [address] [facility] [place] [address], [facility] MONOS 8.3 % Normal 5.0-12.0 [facility] Comment on above: Performed By: #### 3 #### [facility] [address] [facility] [place] [address], [facility] Neutrophils/100 WBC (Bld) 62.0 % Normal 40.0-72.0 [facility] Comment on above: Performed By: #### 5 3 #### [facility] [address] [facility] [place] [address], [facility] Nucleated RBC/100 WBC (Bld) [Ratio] 0 % Normal 0-0 [facility] Comment on above: Performed By: #### 5 0103 #### [facility] [address] [facility] [place] [address], [facility] PLAT CNT 325 10*3/uL Normal 150-400 [facility] Comment on above: Performed By: #### 5 0103 #### [facility] [address] [facility] [place] [address], [facility] RBC (Bld) [#/Vol] 3.92 10*6/uL Normal 3.80-5.00 [facility] Comment on above: Performed By: #### 5 0103 #### [facility] [address] [facility] [place] [address], [facility] WBC (Bld) [#/Vol] 8.12 10*3/uL Normal 4.00-10.60 [facility] Comment on above: Performed By: #### 5 0103 #### [facility] [address] [place] [address], [facility] CERVICAL SPINE 4 OR 5 VIEWSo n 08-08-2018 CERVICAL SPINE 4 OR 5 VIEWS [facility] Department of Radiology [address] [place] [id number] Patient Name: CRISELDA NEVAREZ : 1955 Sex: F Age: Race: White Pt. Location: Patient Status: O Ordered Date: 08/08/2018 2:25:00 PM Completed Date: 08/08/2018 02:48 PM Requesting Provider: MICHEAL NEWMAN Attending Provider: MICHEAL NEWMAN Report Copy To: MICHEAL NEWMAN Signs & Symptoms: M48.02 Spinal stenosis, cervical region I10 History: [place] Comments: , POST OP XRAY AP/LAT ONLY , POST OP XRAY AP/LAT ONLY , , , Ordering Provider - MICHEAL NEWMAN MD , Exam: CERVICAL SPINE 4 OR 5 VIEWS CERVICAL SPINE 4 OR 5 VIEWS 08/08/2018 2:48 PM EDT SIGNS AND SYMPTOMS: M48.02 Spinal stenosis, cervical region I10 TECHNOLOGIST COMMENTS: Neck pain Surgery scheduled for August 2018 QUESTION FOR THE RADIOLOGIST: , POST OP XRAY AP/LAT ONLY , POST OP XRAY AP/LAT ONLY , , , Ordering Provider - MICHEAL NEWMAN MD , PROTOCOLS: AP,Odontoid, Lateral, Flexion and [...] at the C5-C6 level Electronically signed by:Xiomara Dumont. Transcribed by: [email or web address], User Resident: Electronically Signed by: XIOMARA DUMONT @ 08/08/2018 03:24 PM Normal [facility] Comment on above: Order Comment: , POS T OP XRAY AP/LAT ONLY , POST OP XRAY AP/LAT ONLY , , , Ordering Provider - MICHEAL NEWMAN MD , HEMOGLOBIN A1Con 08-08-2018 HbA1c (Bld) [Mass fraction] 154 mg/dL High 70-126 [facility] Comment on above: Performed By: #### 4 6447 #### [facility] [address] [place] [address], [facility] HbA1c (Bld) [Mass fraction] 7.0 % High 4.0-6.0 [facility] Comment on above: Performed By: #### 4 6447 #### [facility] [address] [place] [address], [facility] PROTHROMBIN TIMEon 9 INR Coag (PPP) [Relative time] 0.93 {INR} Normal 0.91-1.16 [facility] Comment on above: Result Comment: ACCC P RECOMMENDED INR FOR WARFARIN THERAPY --------- ------- CONDITION INR PROPHYLAXIS OF VENOUS THROMBOSIS 2-3 (HIGH-RISK SURGERY) TREATMENT OF VENOUS THROMBOSIS 2-3 TREATMENT OF PULMONARY EMBOLISM 2-3 PREVENTION OF SYSTEMIC EMBOLISM: 2-3 ACUTE MYOCARDIAL INFARCTION TISSUE HEART VALVES VALVULAR HEART DISEASE ATRIAL FIBRILLATION RECURRENT SYSTEMIC EMBOLISM MECHANICAL HEART VALVE 2.5-3.5 FROM: ORAL ANTICOAGULANTS. MECHANISM OF ACTION, CLINICAL EFFECTIVENESS, AND OPTIMAL THERAPEUTIC RANGE. CHEST 1995;108:231S-246S. Performed By: #### 5 6101, [id number] #### [facility] [address] [place] [id number], [facility] PT Coag (PPP) [Time] 12.5 s Normal 12.3-14.8 [facility] Comment on above: Result Comment: ALL RESULTS MUST BE INTERPRETED WITH RESPECT TO BLOOD DRAWING ARTIFACT OR DILUTION ERROR OF ANTICOAGULANT AT THE TIME OF SAMPLING. Performed By: #### 5 6101, [id number] #### [facility] [address] [place] [address], [place] TYPE AND CROSSMATCHon 2018 ABO INTERPRETATION O Normal [facility] Comment on above: Performed By: #### 6 2594 #### [facility] [address] [place] [address], [place] RH INTERPRETATION Positive Normal [facility] Comment on above: Performed By: #### 6 2594 #### [facility] [address] [place] [address], [place] URINALYSIS REFLEXon 08-09-19 19 Appearance (U) CLEAR Normal CLEAR [facility] Comment on above: Performed By: #### 3 0965 #### [facility] [address] [place] [address], [place] Bilirubin [Mass/Vol] Negative Normal NEGATIVE [facility] Comment on above: Performed By: #### 3 0965 #### [facility] [address] [place] [address], [place] BLOOD Negative Normal NEGATIVE [facility] Comment on above: Performed By: #### 3 0965 #### [facility] [address] [place] [address], [place] Color (U) STRAW Abnormal YELLOW [facility] Comment on above: Performed By: #### 3 0965 #### [facility] [address] [place] [address], [place] EPIS NONE SEEN Normal FEW,OCC,NO NE SEEN [facility] Comment on above: Performed By: #### 3 0965 #### [facility] [address] [place] [address], [place] Glucose [Mass/Vol] Negative Normal NEGATIVE [facility] Comment on above: Performed By: #### 3 0965 #### [facility] [address] [place] [address], [facility] KETONE Negative Normal NEGATIVE [facility] Comment on above: Performed By: #### 3 0965 #### [facility] [address] [place] [address], [facility] LEUK ALVARADO TRACE Abnormal NEGATIVE [facility] Comment on above: Performed By: #### 3 0965 #### [facility] [address] [place] [address], [facility] Nitrite Ql (U) Negative Normal NEGATIVE [facility] Comment on above: Performed By: #### 3 0965 #### [facility] [address] [place] [address], [facility] pH (Bld) 6.0 Normal 5.0-8.0 [facility] Comment on above: Performed By: #### 3 0965 #### [facility] [address] [place] [address], [facility] Protein (U) [Mass/Vol] Negative Normal NEGATIVE [facility] Comment on above: Performed By: #### 3 0965 #### [facility] [address] [place] [address], [facility] RBC (U) [#/Vol] 0-2 Abnormal NONE SEEN [facility] Comment on above: Performed By: #### 3 0965 #### [facility] [address] [place] [address], [facility] SPEC GRAV 1.011 Low 1.015-1.02 0 [facility] Comment on above: Performed By: #### 3 0965 #### [facility] [address] [place] [address], [facility] WBC UA 0-2 Abnormal NONE SEEN [facility] Comment on above: Performed By: #### 3 [id number] #### [facility] [address] Vital Signs Date Time Vital Sign Value Performing Clinician Facility 10-25-2024 10:24-0400 Body mass index (BMI) [Ratio] 33.08 kg/m2 Selin PIMENTEL Work Phone: [facility] 10-25-2024 10:24-0400 Body weight 74.3 kg Selin PIMENTEL Work Phone: [facility] 10-25-2024 10:24-0400 Diastolic blood pressure 80 mm[Hg] Selin PIMENTEL Work Phone: [facility] 10-25-2024 10:24-0400 Systolic blood pressure 120 mm[Hg] Selin PIMENTEL Work Phone: [facility] 09-03-2024 09:40-0400 Body height 149.86 cm Rin Nicholson DO Work Phone: [facility] 09-03-2024 09:40-0400 Body mass index (BMI) [Ratio] 32.9 kg/m2 Rin Nicholson DO Work Phone: [facility] 09-03-2024 09:40-0400 Body temperature 98.1 [degF] Rin Nicholson DO Work Phone: [facility] 09-03-2024 09:40-0400 Body weight 73.93 kg Rin Nicholson DO Work Phone: [facility] 09-03-2024 09:40-0400 Diastolic blood pressure 78 mm[Hg] Rin Nicholson DO Work Phone: [facility] 09-03-2024 09:40-0400 Heart rate 83 /min Rin Nicholson DO Work Phone: [facility] 09-03-2024 09:40-0400 SaO2% (BldA) [Mass fraction] 98 % Rin Nicholson DO Work Phone: [facility] 09-03-2024 09:40-0400 Systolic blood pressure 128 mm[Hg] Rin Girvin DO Work Phone: [facility] 07-23-2024 08:43-0400 Body height 149.86 cm Rin Nicholson DO Work Phone: [facility] 07-23-2024 08:43-0400 Body mass index (BMI) [Ratio] 31.5 kg/m2 Rin Nicholson DO Work Phone: [facility] 07-23-2024 08:43-0400 Body weight 70.76 kg Rin Nicholson DO Work Phone: [facility] 07-23-2024 08:43-0400 Diastolic blood pressure 89 mm[Hg] Rin Nicholson DO Work Phone: [facility] 07-23-2024 08:43-0400 Heart rate 78 /min Rni Nicholson DO Work Phone: [facility] 07-23-2024 08:43-0400 Systolic blood pressure 153 mm[Hg] Rin Nicholson DO Work Phone: [facility] 06-14-2024 10:33-0500 Body height 149.86 cm Rin Nicholson DO Work Phone: [facility] 06-14-2024 10:33-0500 Body mass index (BMI) [Ratio] 30.4 kg/m2 Rin Nicholson DO Work Phone: [facility] 06-14-2024 10:33-0500 Body weight 68.49 kg Rin Lyn DO Work Phone: [facility] 06-07-2024 09:29-0500 Body height 149.9 cm Nae Argueta MD Work Phone: [facility] 06-07-2024 09:29-0500 Body mass index (BMI) [Ratio] 30.3 kg/m2 Nae Argueta MD Work Phone: [facility] 06-07-2024 09:29-0500 Body weight 68.04 kg Nae Argueta MD Work Phone: [facility] 06-07-2024 09:29-0500 Heart rate 73 /min Nae Argueta MD Work Phone: [facility] 06-07-2024 09:29-0500 Respiratory rate 16 /min Nae Argueta MD Work Phone: [facility] 06-07-2024 09:29-0500 SaO2% (BldA) [Mass fraction] 95 % Nae Argueta MD Work Phone: [facility] 06-06-2024 09:28-0500 Body height 149.86 cm Rin Nicholson DO Work Phone: [facility] 06-06-2024 09:28-0500 Body mass index (BMI) [Ratio] 30.4 kg/m2 Rin Nicholson DO Work Phone: [facility] 06-06-2024 09:28-0500 Body weight 68.49 kg Rin Nicholson DO Work Phone: [facility] 06-06-2024 09:28-0500 Diastolic blood pressure 68 mm[Hg] Rin Nicholson DO Work Phone: [facility] 06-06-2024 09:28-0500 Heart rate 86 /min Rin Nicholson DO Work Phone: [facility] 06-06-2024 09:28-0500 Respiratory rate 16 /min Rin Nicholson DO Work Phone: [facility] 06-06-2024 09:28-0500 SaO2% (BldA) [Mass fraction] 97 % Rin Nicholson DO Work Phone: [facility] 06-06-2024 09:28-0500 Systolic blood pressure 100 mm[Hg] Rin Nicholson DO Work Phone: [facility] 06-05-2024 09:45-0500 Body height 149.86 cm Rin Nicholson DO Work Phone: [facility] 06-05-2024 09:45-0500 Body mass index (BMI) [Ratio] 31.1 kg/m2 Rin Nicholson DO Work Phone: [facility] 06-05-2024 09:45-0500 Body temperature 97.1 [degF] Rin Nicholson DO Work Phone: [facility] 06-05-2024 09:45-0500 Body weight 69.85 kg Rin Nicholson DO Work Phone: [facility] 06-05-2024 09:45-0500 Diastolic blood pressure 82 mm[Hg] Rin Nicholson DO Work Phone: [facility] 06-05-2024 09:45-0500 Heart rate 79 /min Rin Nicholson DO Work Phone: [facility] 06-05-2024 09:45-0500 SaO2% (BldA) [Mass fraction] 97 % Rin Nicholson DO Work Phone: [facility] 06-05-2024 09:45-0500 Systolic blood pressure 138 mm[Hg] Rin Nicohlson DO Work Phone: [facility] 03-06-2024 11:08-0500 Body height 149.9 cm Nae Argueta MD Work Phone: [facility] 03-06-2024 11:08-0500 Body mass index (BMI) [Ratio] 31.71 kg/m2 Nae Argueta MD Work Phone: [facility] 03-06-2024 11:08-0500 Body weight 71.22 kg Nae Argueta MD Work Phone: [facility] 03-06-2024 11:08-0500 Diastolic blood pressure 72 mm[Hg] Nae Argueta MD Work Phone: [facility] 03-06-2024 11:08-0500 Heart rate 83 /min Nae Argueta MD Work Phone: [facility] 03-06-2024 11:08-0500 Respiratory rate 18 /min Nae Argueta MD Work Phone: [facility] 03-06-2024 11:08-0500 Systolic blood pressure 120 mm[Hg] Nae Argueta MD Work Phone: [facility] 03-02-2024 10:34-0500 Body height 149.86 cm Rin Nicholson DO Work Phone: [facility] 03-02-2024 10:34-0500 Body weight 71.66 kg Rin Nicholson DO Work Phone: [facility] 02-03-2024 08:33-0400 Body height 149.86 cm Rin Nicholson DO Work Phone: [facility] 02-03-2024 08:33-0400 Body mass index (BMI) [Ratio] 32.3 kg/m2 Rin Nicholson DO Work Phone: [facility] 02-03-2024 08:33-0400 Body temperature 97.7 [degF] Rin Nicholson DO Work Phone: [facility] 02-03-2024 08:33-0400 Body weight 72.57 kg Rin Nicholson DO Work Phone: [facility] 02-03-2024 08:33-0400 Diastolic blood pressure 76 mm[Hg] Rin Nicholson DO Work Phone: [facility] 02-03-2024 08:33-0400 Heart rate 76 /min Rin Nicholson DO Work Phone: [facility] 02-03-2024 08:33-0400 SaO2% (BldA) [Mass fraction] 98 % Rin Nicholson DO Work Phone: [facility] 02-03-2024 08:33-0400 Systolic blood pressure 138 mm[Hg] Rin Nicholson DO Work Phone: [facility] 02-01-2024 11:47-0400 Body height 149.86 cm Rin Nicholson DO Work Phone: [facility] 02-01-2024 11:47-0400 Body mass index (BMI) [Ratio] 32.3 kg/m2 Rin Nicholson DO Work Phone: [facility] 02-01-2024 11:47-0400 Body temperature 96.8 [degF] Rin Nicholson DO Work Phone: [facility] 02-01-2024 11:47-0400 Body weight 72.74 kg Rin Nicholson DO Work Phone: [facility] 02-01-2024 11:47-0400 Diastolic blood pressure 74 mm[Hg] Rin Nicholson DO Work Phone: [facility] 02-01-2024 11:47-0400 Heart rate 73 /min Rin Nicholson DO Work Phone: [facility] 02-01-2024 11:47-0400 Respiratory rate 16 /min Rin Nicholson DO Work Phone: [facility] 02-01-2024 11:47-0400 SaO2% (BldA) [Mass fraction] 98 % Rin Nicholson DO Work Phone: [facility] 02-01-2024 11:47-0400 Systolic blood pressure 126 mm[Hg] Rin Nicholson DO Work Phone: [facility] 09-24-2022 08:10-0400 Body height 149.86 cm Rin Nicholson Other [facility] Other 09-24-2022 08:10-0400 Body mass index (BMI) [Ratio] 29.89 kg/m2 Rin Nicholson Other [facility] Other 09-24-2022 08:10-0400 Body temperature 98.6 [degF] Rin Nicholson Other [facility] Other 09-24-2022 08:10-0400 Body weight 67.13 kg Rin Nicholson Other [facility] Other 09-24-2022 08:10-0400 Diastolic blood pressure 84 mm[Hg] Rin Nicholson Other [facility] Other 09-24-2022 08:10-0400 Respiratory rate 18 /min Rin Nicholson Other [facility] Other 09-24-2022 08:10-0400 SaO2% (BldA) [Mass fraction] 97 % Rin Nicholson Other [facility] Other 09-24-2022 08:10-0400 Systolic blood pressure 126 mm[Hg] Rin Nicholson Other [facility] Other 08-09-2022 18:20-0400 Body height 149.86 cm Rin Nicholson Other [facility] Other 08-09-2022 18:20-0400 Body mass index (BMI) [Ratio] 29.89 kg/m2 Rin Nicholson Other [facility] Other 08-09-2022 18:20-0400 Body temperature 98.2 [degF] Rin Nicholson Other [facility] Other 08-09-2022 18:20-0400 Body weight 67.13 kg Rin Nicholson Other [facility] Other 08-09-2022 18:20-0400 Diastolic blood pressure 78 mm[Hg] Rin Nicholson Other [facility] Other 08-09-2022 18:20-0400 Respiratory rate 16 /min Rin Nicholson Other [facility] Other 08-09-2022 18:20-0400 SaO2% (BldA) [Mass fraction] 98 % Rin Nicholson Other [facility] Other 08-09-2022 18:20-0400 Systolic blood pressure 136 mm[Hg] Rin Checodane Other [facility] Other 02-08-2022 18:00-0400 Body height 149.86 cm Rin Nicholson Other [facility] Other 02-08-2022 18:00-0400 Body mass index (BMI) [Ratio] 28.98 kg/m2 Rin Nicholson Other [facility] Other 02-08-2022 18:00-0400 Body temperature 98.1 [degF] Rin Nicholson Other [facility] Other 02-08-2022 18:00-0400 Body weight 65.09 kg Rin Checodane Other [facility] Other 02-08-2022 18:00-0400 Diastolic blood pressure 80 mm[Hg] Rin Nicholson Other [facility] Other 02-08-2022 18:00-0400 Respiratory rate 16 /min Rin Nicholson Other [facility] Other 02-08-2022 18:00-0400 SaO2% (BldA) [Mass fraction] 99 % Rin Checodane Other [facility] Other 02-08-2022 18:00-0400 Systolic blood pressure 136 mm[Hg] Rin Nicholson Other [facility] Other Encounters Encounter Date Encounter Type Care Provider Facility Start: 10-25-2024 End: 10-25-2024 Avnibovitor flowsbrody PIMENTEL Work Phone: [facility] Start: 10-25-2024 End: 10-29-2024 Bamboo flowsheet Selin PIMENTEL Work Phone: [facility] Start: 10-25-2024 End: 10-29-2024 Clinisync Result Encounter Selin PIMENTEL Work Phone: [facility] Unsolicited Start: 10-25-2024 End: 10-25-2024 Patient encounter procedure Selin PIMENTEL Work Phone: [facility] Work Phone: Start: 10-25-2024 End: 10-25-2024 Periodic preventive med est patient 65yrs& older Selin PIMENTEL Work Phone: [facility] Comment on above: Well woman exam with routine gynecological exam; Breast cancer screening by mammogram; Postmenopausal state Start: 10-25-2024 End: 10-25-2024 ambulatory SELIN NO Not Available Start: 09-13-2024 End: 09-13-2024 Patient encounter procedure Rin Nicholson DO Work Phone: [facility] Start: 09-13-2024 End: 09-13-2024 ambulatory Rin Nicholson DO Work Phone: [facility] Work Phone: Start: 09-03-2024 End: 09-03-2024 Patient encounter procedure Rin Nicholson DO Work Phone: [facility] [place] Work Phone: Start: 08-21-2024 Non-patient / Non-visit Rin Nicholson DO Work Phone: [facility] Work Phone: Start: 08-10-2024 End: 08-10-2024 Patient encounter procedure Rin Nicholson DO Work Phone: [facility] Work Phone: Start: 08-10-2024 End: 08-10-2024 ambulatory Rin Nicholson DO Work Phone: [facility] Work Phone: Start: 07-23-2024 End: 07-23-2024 ambulatory Rin Nicholson DO Work Phone: [facility] Work Phone: Start: 07-23-2024 End: 07-23-2024 Patient encounter procedure Rin Nicholson DO Work Phone: [facility] Work Phone: Start: 06-28-2024 End: 06-28-2024 Patient encounter procedure Rin Nicholson DO Work Phone: [facility]-Digestive Health Work Phone: Start: 06-28-2024 End: 06-28-2024 ambulatory Rin Nicholson DO Work Phone: [facility] Work Phone: Start: 06-14-2024 End: 06-14-2024 ambulatory Rin Nicholson DO Work Phone: [facility] Work Phone: Start: 06-14-2024 End: 06-14-2024 Patient encounter procedure Rin Nicholson DO Work Phone: [facility] Work Phone: Start: 06-07-2024 End: 06-07-2024 Bamboo flowsheet Nae Argueta MD Work Phone: [facility] Start: 06-07-2024 End: 06-07-2024 Bamboo flowsheet Nae Argueta MD Work Phone: [facility] Start: 06-07-2024 End: 06-07-2024 Office outpatient visit 25 minutes Nae Argueta MD Work Phone: [facility] Comment on above: 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); Graves disease (CMS/HCC) Start: 06-07-2024 End: 06-07-2024 ambulatory NAE Hicks TAYLOR Not Available Start: 06-06-2024 End: 06-06-2024 ambulatory Rin Nicholson DO Work Phone: [facility] Work Phone: Start: 06-06-2024 End: 06-06-2024 Patient encounter procedure Rin Nicholson DO Work Phone: [facility] [place] Work Phone: Start: 06-05-2024 End: 06-05-2024 ambulatory Rin Nicholson DO Work Phone: [facility] Work Phone: Start: 06-05-2024 End: 06-05-2024 Patient encounter procedure Rin Nicholson DO Work Phone: [facility] [place] Work Phone: Start: 05-29-2024 End: 05-29-2024 Patient encounter procedure Rin Nicholson DO Work Phone: [facility] Work Phone: Start: 05-29-2024 End: 05-29-2024 ambulatory Rin Nicholson DO Work Phone: [facility] Work Phone: Start: 05-28-2024 End: 05-28-2024 Patient encounter procedure Rin Nicholson DO Work Phone: [facility] Work Phone: Start: 05-28-2024 End: 05-28-2024 ambulatory Rin Nicholson DO Work Phone: [facility] Work Phone: Start: 05-22-2024 Non-patient / Non-visit Rin Nicholson DO Work Phone: [facility] Work Phone: Start: 03-06-2024 End: 03-06-2024 Bamboo flowsheet Nae Argueta MD Work Phone: [facility] Start: 03-06-2024 End: 03-06-2024 Bamboo flowsheet Nae Argueta MD Work Phone: [facility] Start: 03-06-2024 End: 03-06-2024 Office outpatient visit 25 minutes Nae Argueta MD Work Phone: [facility] Comment on above: 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); Graves disease (CMS/HCC) Start: 03-06-2024 End: 03-06-2024 ambulatory NAE ARGUETA Not Available Start: 03-02-2024 End: 03-02-2024 Patient encounter procedure Rin Nicholson DO Work Phone: [facility] Work Phone: Start: 03-02-2024 End: 03-02-2024 ambulatory Rin Nicholson DO Work Phone: [facility] Work Phone: Start: 02-22-2024 Non-patient / Non-visit Rin Nicholson DO Work Phone: [facility] Work Phone: Start: 02-03-2024 End: 02-03-2024 Patient encounter procedure Rin Nicholson DO Work Phone: [facility] [place] Work Phone: Start: 02-01-2024 End: 02-01-2024 Patient encounter procedure Rin Nicholson DO Work Phone: [facility] [place] Work Phone: Start: 05-16-2023 End: 05-16-2023 ambulatory Rin Nicholson Other [facility] Other Start: 05-16-2023 Telephone encounter Rin Nicholson [facility] [place] Start: 05-03-2023 Encounter by compute r roni Nicholson [facility] [place] Start: 05-03-2023 End: 05-03-2023 ambulatory DO Rin Nicholson Work Phone: [facility] Work Phone: Start: 05-03-2023 End: 05-03-2023 Patient encounter procedure DO Rin Nicholson Work Phone: [facility] Work Phone: Start: 04-12-2023 End: 04-12-2023 ambulatory Rin Nicholson Other [facility] Other Start: 04-12-2023 Telephone encounter Rin Nicholson [facility] [place] Start: 04-04-2023 End: 04-04-2023 ambulatory Rin Nicholson Other [facility] Other Start: 04-04-2023 Telephone encounter Rin Nicholson [facility] [place] Start: 03-21-2023 End: 03-21-2023 ambulatory Rin Nicholson Other [facility] Other Start: 03-21-2023 Telephone encounter Rin Nicholson [facility] [place] Start: 02-23-2023 End: 02-23-2023 ambulatory Rin Nicholson Other [facility] Other Start: 02-23-2023 Telephone encounter Rin Nicholson [facility] [place] Start: 09-24-2022 End: 09-24-2022 ambulatory Rin Nicholson Other [facility] Other Start: 09-24-2022 Office outpatient vi sit 15 minutes Rin Nicholson [facility] [place] Start: 08-30-2022 End: 08-31-[address] RIN NICHOLSON Facility:[facility]1 Start: 08-17-2022 End: 08-17-2022 ambulatory Rin Nicholson Other [facility] Other Start: 08-17-2022 Telephone encounter Rin Nicholson [facility] [place] Start: 08-16-2022 End: 08-17-[address] RIN NICHOLSON Facility:[facility] Start: 08-09-2022 End: 08-09-2022 ambulatory Rin Nicholson Other [facility] Other Start: 08-09-2022 Office outpatient vi sit 25 minutes Rin Nicholson [facility] [place] Start: 08-06-2022 End: 08-06-2022 ambulatory Rin Nicholson Other [facility] Other Start: 08-06-2022 Telephone encounter Rin Nicholson [facility] [place] Start: 07-31-2022 End: 08-01-[address] RIN NICHOLSON Facility:[facility]1 Start: 06-04-2022 End: 06-04-2022 ambulatory Rin Nicholson Other [facility] Other Start: 06-04-2022 Telephone encounter Rin Nicholson [facility] [place] Start: 05-24-2022 End: 05-24-2022 ambulatory Rin Nicholson Other [facility] Other Start: 05-24-2022 Telephone encounter Rin Nicholson [facility] [place] Start: 05-14-2022 End: 05-14-2022 ambulatory Rin Nicholson Other [facility] Other Start: 05-14-2022 Telephone encounter Rin Nicholson [facility] [place] Start: 04-30-2022 End: 04-30-[address] TURNER Jorgensen Facility:[facility]1 Start: 04-22-2022 End: 04-22-2022 ambulatory Rin Nicholson Other [facility] Other Start: 04-22-2022 Telephone encounter Rin Nicholson [facility] Start: 03-29-2022 End: 03-29-2022 ambulatory Rin Nicholson Other [facility] Other Start: 03-29-2022 Telephone encounter Rin Nicholson [facility] Start: 03-27-2022 End: 03-28-[address] RIN NICHOLSON Facility:[facility]1 Start: 02-08-2022 End: 02-08-2022 ambulatory Rin Nicholson Other [facility] Other Start: 02-08-2022 Office outpatient vi sit 25 minutes Rin Nicholson [facility] Start: 01-22-2022 End: 01-23-[address] RIN NICHOLSON Facility:[facility]1 Start: 08-23-2018 End: 08-25-2018 Evaluation and management of inpatient PROVIDER UNKNOWN Facility:[facility] Start: 05-11-2018 Patient encounter procedure Selin Jean Facility:[id number] Start: 05-08-2018 Patient encounter procedure Selin Jean Facility:[id number] Start: 10-06-2017 Patient encounter procedure Selin Jean Facility:[id number] Procedures Date Procedure Procedure Detail Performing Clinician Start: 10-25-2024 IGP,APTIMA HPV,AGE GDLN Selin PIMENTEL Work Phone: Start: 09-13-2024 Bilateral mammography D avijason Nicholson DO Work Phone: Start: 09-13-2024 Ultrasonography of l eft breast Rin Nicholson DO Work Phone: Start: 08-10-2024 NM bone scan whole body Rin Nicholson DO Work Phone: Start: 06-28-2024 Ultrasound elastogra phy of liver Rin Nicholson DO Work Phone: Start: 06-28-2024 Computed tomography of abdomen and pelvis with contrast Rin Nicholson DO Work Phone: Start: 05-28-2024 Ultrasonography of b ilateral kidneys Rin Nicholson DO Work Phone: Start: 03-02-2024 Radionuclide myocard ial perfusion stress study Rin Nicholson DO Work Phone: Start: 05-03-2023 Screening mammograph y of bilateral breasts DO Rin Nicholson Work Phone: Start: 08-23-2018 FUSION 2-6 C JT W NO NAUT SUB, ANT APPR A COL, OPEN [facility] Start: 08-23-2018 RESECTION OF CERVICA L VERTEBRAL DISC, OPEN APPROACH [facility] Start: 08-08-2018 Antibody screen PROVIDE R UNKNOWN Comment on above: Performed By: #### 6 [id number] #### [facility] [address] Plan of Treatment Date Care Activity Detail Author Start: 10-30-2025 End: 10-30-2025 Patient encounter procedure 10/30/2025 10:00 AM EDT Office Visit [facility] [address] [place] [address] Selin No PA [address] [facility] [address] [facility] Start: 12-17-2024 Influenza vaccination Influenza Vaccine (#1) [facility] Start: 12-06-2024 End: 12-06-2024 Patient encounter procedure 12/06/2024 10:00 AM EDT Office Visit [facility] [address] [place] [address] Nae Argueta MD [address] [place] [address] [facility] Start: 10-25-2024 End: 10-25-2024 Patient encounter procedure 10/25/2024 10:00 AM EDT Office Visit [facility] [address] [place] [address] Selin No PA [address] [place] [address] [phone] (work) Arrived [facility] Comment on above: Arrived Start: 07-23-2024 Mitochondria M2 IgG Ab [Units/volume] in Serum [facility] Start: 07-23-2024 [facility] Start: 06-28-2024 [facility] Start: 06-28-2024 Computed tomography of abdomen and pelvis with contrast CT abdomen pelvis w con [facility] Start: 06-28-2024 Computed tomography of abdomen and pelvis with contrast CT abdomen pelvis wo/w con [facility] Start: 06-28-2024 Hepatitis A virus Ab [Presence] in Serum by Immunoassay [facility] Start: 06-28-2024 Hepatitis B core antibody measurement [facility] Start: 06-28-2024 Hepatitis B virus surface Ab [Presence] in Serum [facility] Start: 06-28-2024 [facility] Start: 06-07-2024 End: 06-07-2025 Hepatic function 2000 panel - Serum or Plasma Hepatic function panel Lab Routine 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) Expected: 06/07/2024 (Approximate), Expires: 06/07/2025 [facility] Comment on above: Expected: 06/07/2024 (Approximate), Expi res: 06/07/2025 Start: 06-07-2024 End: 06-07-2025 Thyrotropin [Units/volume] in Serum or Plasma TSH Lab Routine 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) Expected: 06/07/2024 (Approximate), Expires: 06/07/2025 [facility] Comment on above: Expected: 06/07/2024 (Approximate), Expi res: 06/07/2025 Start: 06-07-2024 End: 06-07-2025 Thyroxine (T4) free [Mass/volume] in Serum or Plasma T4, free Lab Routine 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) Expected: 06/07/2024 (Approximate), Expires: 06/07/2025 [facility] Comment on above: Expected: 06/07/2024 (Approximate), Expi res: 06/07/2025 Start: 06-07-2024 End: 06-07-2025 Triiodothyronine (T3) Free [Mass/volume] in Serum or Plasma T3, free Lab Routine 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) Expected: 06/07/2024 (Approximate), Expires: 06/07/2025 [facility] Work Phone: Comment on above: Expected: 06/07/2024 (Approximate), Expi res: 06/07/2025 Start: 06-07-2024 End: 06-07-2024 Patient encounter procedure 06/07/2024 9:30 AM EST Office Visit [facility] [address] [place] [phone] Nae Argueta MD [address] [place] [address] Arrived [facility] Comment on above: Arrived Start: 06-05-2024 End: 06-05-2024 Patient encounter procedure 06/05/2024 11:10 AM EST Office Visit [facility] [address] [place] [phone] Nae Argueta MD [address] [place] [address] [facility] Start: 03-06-2024 End: 03-06-2025 Hepatic function 2000 panel - Serum or Plasma Hepatic function panel Lab Routine 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) Expected: 03/06/2024 (Approximate), Expires: 03/06/2025 [facility] Comment on above: Expected: 03/06/2024 (Approximate), Expi res: 03/06/2025 Start: 03-06-2024 End: 03-06-2025 Thyrotropin [Units/volume] in Serum or Plasma TSH Lab Routine 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) Expected: 03/06/2024 (Approximate), Expires: 03/06/2025 [facility] Comment on above: Expected: 03/06/2024 (Approximate), Expi res: 03/06/2025 Start: 03-06-2024 End: 03-06-2025 Thyroxine (T4) free [Mass/volume] in Serum or Plasma T4, free Lab Routine 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) Expected: 03/06/2024 (Approximate), Expires: 03/06/2025 [facility] Comment on above: Expected: 03/06/2024 (Approximate), Expi res: 03/06/2025 Start: 03-06-2024 End: 03-06-2025 Triiodothyronine (T3) Free [Mass/volume] in Serum or Plasma T3, free Lab Routine 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) Expected: 03/06/2024 (Approximate), Expires: 03/06/2025 [facility] Work Phone: Comment on above: Expected: 03/06/2024 (Approximate), Expi res: 03/06/2025 Start: 03-06-2024 End: 03-06-2024 Patient encounter procedure 03/06/2024 11:00 AM EST Office Visit [facility] [address] [place] [phone] Nae Argueta MD [address] [place] [address] Arrived [facility] Comment on above: Arrived Start: 03-02-2024 Radionuclide myocardial perfusion stress study NM heaven perf SPECT rest & str [facility] Start: 02-03-2024 Patient referral [facility] Work Phone: Start: 12-18-2023 Influenza vaccination Influenza Vaccine (#1) [facility] Start: 1995 Screening for malignant neoplasm of breast Mammogram [facility] Start: 1955 Medicare Annual Wellness (AWV) Medicare Annual Wellness (AWV) [facility] Start: 1955 Screening for malignant neoplasm of colon [facility] Alkaline phosphatase - bone isoenzyme measurement [facility] Alkaline phosphatase [Enzymatic activity/volume] in Serum or Plasma [facility] Alkaline phosphatase isoenz panel - Serum or Plasma [facility] Comprehensive metabo lic 1999 panel - Serum or Plasma [facility] Comprehensive metabo lic 1999 panel - Serum or Plasma [facility] CT Abdomen and Pelvi s W contrast IV [facility] Hepatic function panel [facility] Hepatitis A virus Ab [Presence] in Serum by Immunoassay [facility] Hepatitis B core ant ibody measurement [facility] Hepatitis B virus peña rface Ab [Presence] in Serum [facility] Hepatitis B virus peña rface Ag [Presence] in Serum or Plasma by Immunoassay [facility] Intestinal alkaline phosphatase measurement [facility] Patient referral [facility] Work Phone: Renal function 1999 panel - Serum or Plasma [facility] Renal function 1999 panel - Serum or Plasma [facility] THIN PREP TIS PAP AN D HR HPV DNA THIN PREP TIS PAP AND HR HPV DNA Pathology and Cytology Routine Well woman exam with routine gynecological exam Ordered: 10/25/2024 [facility] [employer] Work Phone: Comment on above: Ordered: 10/25/2024 Kidney - bilateral [facility] Immunizations Immunization Date Immunization Notes Care Provider Fa cility 12-22-2023 COVID-19 (PFIZER) 12Y and older Rin Nicholson DO Work Phone: [facility] 12-22-2023 influenza, high dose seasonal, preservative-free Rin Nicholson DO Work Phone: [facility] 12-22-2023 tetanus toxoid, redu pedro diphtheria toxoid, and acellular pertussis vaccine, adsorbed Rin Nicholson DO Work Phone: [facility] 12-22-2023 influenza virus vaccine, unspecified formulation Nae Argueta MD Work Phone: [facility] [employer] 08-29-2023 COVID-19 (MODERNA) 12Y and older Rin Nicholson DO Work Phone: [facility] 08-29-2023 zoster vaccine recombinant Rin Nicholson DO Work Phone: [facility] 08-29-2023 zoster vaccine, live Rin Cheryl soto DO Work Phone: [facility] 04-26-2023 Prevnar 20 Rin Nicholson Other [facility] 04-08-2023 COVID-19 Moderna (SPIKEVAX) Rin Nicholson Other [facility] 04-08-2023 zoster vaccine recombinant Rin Nicholson Other [facility] 03-22-2023 Fluzone QIV High-Dos e 65YR+ Rin Nicholson DO Work Phone: [facility] 03-22-2023 Flu Shot - Documentation Purposes Only Rin Nicholson Other [facility] 02-08-2022 Shingrix 50 MCG/0.5M L; 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: [Shingrix 50 MCG/0.5ML] Rin Nicholson Other [employer] Other 01-15-2022 influenza, seasonal, injectable Rin Nicholson Other [facility] 01-15-2022 COVID-19 Pfizer (bivalent) Rin Nicholson Other [facility] 01-15-2022 Fluzone QIV High-Dos e 65YR+ Rin Nicholson DO Work Phone: [facility] 07-31-2021 COVID-19 Vaccine Moderna - Documentation Purposes Only Rin Nicholson Other [facility] 02-20-2021 COVID-19 Vaccine Moderna - Documentation Purposes Only Rin Nicholson Other [facility] 01-24-2021 Influenza vaccine, quadrivalent, adjuvanted Rin Nicholson DO Work Phone: [facility] 07-26-2020 COVID-19 Brittany Rin Romero n Other [facility] 06-28-2020 COVID-19 Brittany Rin Romero n Other [facility] 02-18-2020 influenza, seasonal, injectable Rin Nicholson Other [facility] 01-18-2020 influenza, injectabl e, quadrivalent, preservative free Rin Nicholson DO Work Phone: [facility] 02-19-2017 influenza, seasonal, injectable Rin Nicholson Other [facility] 02-19-2017 influenza, injectabl e, quadrivalent, preservative free Rin Nicholson DO Work Phone: [facility] 03-08-2016 influenza, seasonal, injectable Rin Nicholson Other [facility] 05-07-2013 influenza virus vaccine, split virus (incl. purified surface antigen) Rin Nicholson Other [employer] Other 05-07-2013 influenza virus vaccine, unspecified formulation Rin Nicholson DO Work Phone: [facility] 03-24-2012 influenza, seasonal, injectable, preservative free Rin Nicholson Other [facility] Payers Date Payer Category Payer Unknown [id number] 2023 Medicare (Managed Care) 1.2. [id number] 2023 Unknown [id number] 2022 Medicare [id number] 2022 Medicare MEDICARE [id number] 1959 Unknown [id number] 1955 Unknown [id number] 2.16.840.1.637808.3.579. 2.356 1955 Unknown [id number] 2.16.840.1.189191.3.579. 2.356 1955 Unknown [id number] 2.16.840.1.220305.3.579. 2.356 1955 Unknown [id number] 2.16.840.1.972987.3.579. 2.356 1955 Unknown [id number] 2.16.840.1.724325.3.579. 2.647 1955 Unknown [id number] 2.16.840.1.565728.3.579. 2.593 1955 Unknown [id number] 2.16.840.1.838132.3.579. 2.593 1955 Unknown [id number] 2.16.840.1.024117.3.579. 2.593 1955 Unknown [id number] 2.16.840.1.832379.3.579. 2.593 1955 Unknown [id number] 2.16.840.1.801156.3.579. 2.593 1955 Unknown [id number] 2.16.840.1.547592.3.579. 2.593 1955 Unknown [id number] 2.16.840.1.399260.3.579. 2.1259 1955 Unknown [id number] 2.16.840.1.940731.3.579. 2.1259 1955 Unknown [id number] 2.16.840.1.856443.3.579. 2.1259 Self-pay Self Pay [id number] Unknown [id number] Social History Date Type Detail Facility Unknown if ever smoked [facility] Other Start: 02-20-2024 End: 06-07-2024 Sex Assigned At [facility] Other Start: 1955 Sex Assigned At Female [facility] Start: 06-02-2020 End: 02-20-2024 Tobacco smoking status NHIS Never smoked tobacco (finding) [facility] Start: 03-03-2024 Sex Patient sex un known (finding) [facility] Start: 02-20-2024 Tobacco use and exposure Smokeless tobacco non-user [facility] Start: 02-20-2024 End: 10-25-2024 Alcoholic beverage intake Lifetime non-drinker (finding) [facility] Start: 02-20-2024 End: 06-07-2024 History of Social function [facility] Start: 1955 Sex assigned at Not on file [facility] Start: 05-29-2024 End: 09-14-2024 Sex Female (finding) [facility] Medical Equipment Procedure Code Equipment Code Equipment Origin al Text Equipment Identifier Dates One Touch Lancet s lancets Start: 12-24-2011 lancets (OneTouc h Delica Plus Lancet) Start: 10-04-2023 Blood Sugar Diagnostic (Onetouch Ultra Test) strip Start: 05-24-2024 lancets (OneTouc h Delica Plus Lancet) Start: 10-04-2023 One Touch Ultra Blue in Vitro Strip Start: 05-24-2024 End: 05-24-2024 Blood Sugar Diagnostic (Onetouch Ultra Test) strip Start: 05-24-2024 lancets (OneTouc h Delica Plus Lancet) Start: 10-04-2023 One Touch Ultra Blue in Vitro Strip Start: 05-24-2024 End: 05-24-2024 Blood Sugar Diagnostic (Onetouch Ultra Test) strip Start: 05-24-2024 lancets (OneTouc h Delica Plus Lancet) Start: 10-04-2023 One Touch Ultra Blue in Vitro Strip Start: 05-24-2024 End: 05-24-2024 Blood Sugar Diagnostic (Onetouch Ultra Test) strip Start: 05-24-2024 lancets (OneTouc h Delica Plus Lancet) Start: 10-04-2023 One Touch Ultra Blue in Vitro Strip Start: 05-24-2024 End: 05-24-2024 Blood Sugar Diagnostic (Onetouch Ultra Test) strip Start: 05-24-2024 lancets (OneTouc h Delica Plus Lancet) Start: 10-04-2023 One Touch Ultra Blue in Vitro Strip Start: 05-24-2024 End: 05-24-2024 Blood Sugar Diagnostic (Onetouch Ultra Test) strip Start: 05-24-2024 lancets (OneTouc h Delica Plus Lancet) Start: 10-04-2023 One Touch Ultra Blue in Vitro Strip Start: 05-24-2024 End: 05-24-2024 Blood Sugar Diagnostic (Onetouch Ultra Test) strip Start: 05-24-2024 lancets (OneTouc h Delica Plus Lancet) Start: 10-04-2023 One Touch Ultra Blue in Vitro Strip Start: 05-24-2024 End: 05-24-2024 Blood Sugar Diagnostic (Onetouch Ultra Test) strip Start: 05-24-2024 lancets (OneTouc h Delica Plus Lancet) Start: 10-04-2023 One Touch Ultra Blue in Vitro Strip Start: 05-24-2024 End: 05-24-2024 Blood Sugar Diagnostic (Onetouch Ultra Test) strip Start: 05-24-2024 lancets (OneTouc h Delica Plus Lancet) Start: 10-04-2023 One Touch Ultra Blue in Vitro Strip Start: 05-24-2024 End: 05-24-2024 Blood Sugar Diagnostic (Onetouch Ultra Test) strip Start: 05-24-2024 lancets (OneTouc h Delica Plus Lancet) Start: 10-04-2023 One Touch Ultra Blue in Vitro Strip Start: 05-24-2024 End: 05-24-2024 Goals Date Patient Goal Desired Activity /State Clinical Notes 02-11-2019 to 10-25-2024 LOREN Sharma - 10/25/2024 10:00 AM EDT Note Date & Type Note Facility 10-25-2024 History of Present illness Narrative Reason for Appointment: Patient ID: Leslee Nevarez [...] nursing note reviewed. Exam conducted with a home health provider present. 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 Full field digital CC and MLO imaging performed. CAD utilized. COMPARISON: 05/03/2023 HISTORY: History of left DCIS. Imaging in the nipple region. BREAST COMPOSITION: Scattered fibroglandular densities of the breast parenchyma identified BREAST CALCIFICATIONS: Benign calcifications present. VASCULAR CALCIFICATIONS: None ARCHITECTURAL DISTORTION: None BREAST NODULE: None AXILLARY LYMPH NODES: Normal POSTSURGICAL CHANGES: Left post therapy changes redemonstrated. Targeted left breast ultrasound. Left breast scanned in the nipple region at the12:00 position. No focal abnormality identified. US/US breast LT limited IMPRESSION: No mammographic evidence of malignancy. No focal abnormality identified with targeted left breast ultrasound. Routine follow-up recommended in one year. RESULT CODE: 2 Benign Findings(s) DENSITY CODE: 2 (approximately 25-50% glandular) There are scattered areas of fibroglandular density. FOLLOW UP: 1YR THE FALSE-NEGATIVE RATE OF MAMMOGRAPHY IS APPROXIMATELY 10%. IMAGING OF A PALPABLE ABNORMALITY MUST BE BASED ON CLINICAL GROUNDS. PATIENT WAS ENTERED INTO A REMINDER SYSTEM WITH A TARGET DUE DATE FOR THE NEXT MAMMOGRAM. Impression dictated by: Turner Harrell M.D. 09/13/2024 12:25 PM Dictation Location: [facility] Tech: Janette Jackson Bonillasusan Trotterce Transcribed By: CANDACE 09/13/241224 Dictated By: Turner Harrell DO 09/13/24 1220 Signed By: 09/13/24 1225 [facility] 09-03-2024 Evaluation note Authored September 03, 2024 10:29 am The above note written by __ _Wilmer Helm____ acting as human recorder, note dictated by Dr. Castro .I performed the above HPI, ROS, and Examination. I formulated and dictated the treatment plan and was present for entire encounter. Rin Nicholson D.O. Author julianne [facility] Authored July 23, 2024 9:17 am 68-year-old female referred to the GI clinic for evaluation of fatty liver Ultrasound few month ago showed 1.1 cm liver lesion and hepatic steatosis. ALP is 120 otherwise rest of liver enzymes are normal. Viral hepatitis serologies are negative. Fibroscan on 06/28/2024 showed LSM: 4.[address] on 06/28/24 showed Fatty liver with left hepatic lobe lesion within the dome measuring 2 cm in size most suggestive of a hemangioma. - Will arrange for MRI liver in 6 months. - Will check AMA and ALP isoenzymes [facility] Work Phone: 1(497) 268-855204-25-2025 Nuclear medicine Diagnostic study note [facility] [address] [place] [address] Nuclear Medicine Report Signed Patient: Leslee Nevarez MR#: [id number] : 1955 Acct:[id number] Age/Sex: 68 / F ADM Date: 5 Loc: [place] Room: Type: REG CLI Attending Dr: Jacklyn Heard MD Copies to: MD Carmela Gregory MD~ Ordering Provider: Jacklyn Heard MD Date of Service: 08/10/24 NM/NM bone scan whole body: R74.8 - Abnormal levels of other serum enzymes WHOLE-BODY BONE SCAN: CLINICAL HISTORY: Elevated alkaline phosphatase. History of left breast cancer. COMPARISON: CT abdomen pelvis 06/28/2024 Following the intravenous administration of 21.6 mCi of technetium 99m labeled MDP, delayed minified views of the entire skeleton were obtained. There is normal distribution of radionucleotide within the axial and appendicular skeleton. There is mild degenerative uptake involving some of the joints, greatest at the right knee and both feet. There is also minor uptake atthe left cervical spine and lower lumbar spine where there is degenerative change and spondylolysis on CT. There are no additional focal areas of increased uptake or photopenia that are suspicious for metastatic disease. Thereis physiologic activity within the urinary tract. There is contamination with radioactive urine at the perineum. The focus of increased uptake at the right hand is the site of injection. NM/NM bone scan whole body IMPRESSION: SITES OF MILD DEGENERATIVE JOINT UPTAKE. NO OTHER SIGNIFICANT BONE SCAN FINDINGS. Impression dictated by: Carmela Cuevas M.D. 08/10/2024 3:42 PM Dictation Location: [place] [address] Transcribed By: [facility] 08/10/24 1542 Dictated By: Carmela Cuevas MD 08/10/24 1536 Signed By: 08/10/24 [facility] Work Phone: 1(234) 479-732702-20-2025 History of Present illness Narrative* Nae Argueta MD - 06/07/2024 9:30 AM EST Leslee Nevarez is a 68 y.o. female No ref. provider found presents with chief complaint of Thyroid Problem HPI: 05/2024 Follow up visit on 06/07/2024, currently on methimazole 5 mg 6 days a week, lab done TSH 4.503 , free T3 2.53 ( 2.18-3.98), free T4 1.08 ( 0.76-1.4) 02/2024 Follow up visit on 02/25/2024, currently [...] right lobe 4.5 x 1.8 x 1.3. Thereare three nodules, in the middle TR 4, 6 mm; in the upper TR 3, 10 mm; and in the lower TR 3, 9 mm.Left lobe 4.9 x 1.2 x 1.3 cm. 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 [...] 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 (CMS/HCC) - T3, free; Future - T4, free; Future - TSH; Future - Hepatic function panel; Future decrease her methimazole further to 5 mg 5 days a week, we will check lab before next visit in 6 months and adjust. Graves disease (CMS/HCC) She wants to continue with medication so far Follow up in about 6 months (around 12/05/2024). [id number] Evaluation note* Author Rin Nicholson [facility] Authored June 05, 2024 11:40am The above note written by __ _Wilmer Helm____ acting as human recorder, note dictated by Dr. Castro .I performed the above HPI, ROS, and Examination. I formulated and dictated the treatment plan and was present for entire encounter. Rin Nicholson D.O. Author [facility] Authored June 14, 2024 12:06pm 68-year-old female referred to the GI clinic for evaluation of fatty liver and epigastric pain +epigastric pain for 2 weeks which have resolved spontaneously. Ultrasound few month ago showed 1.1 cm liver lesion and hepatic steatosis. Will check liver enzymes. Will check viral hepatitis serologies. Will arrange for FibroScan. Will arrange for triphasic CT to evaluate the liver lesion. [facility] Work Phone: 1(128) 430-829902-18-2025 Evaluation note* Author Rin Nicholson [facility] Authored June 05, 2024 11:40am The above note written by __ _Wilmer Helm____ acting as human recorder, note dictated by Dr. Castro .I performed the above HPI, ROS, and Examination. I formulated and dictated the treatment plan and was present for entire encounter. Rin Nicholson D.O. Author [facility] Authored June 14, 2024 12:06pm 68-year-old female referred to the GI clinic for evaluation of fatty liver and epigastric pain +epigastric pain for 2 weeks which have resolved spontaneously. Ultrasound few month ago showed 1.1 cm liver lesion and hepatic steatosis. Will check liver enzymes. Will check viral hepatitis serologies. Will arrange for FibroScan. Will arrange for triphasic CT to evaluate the liver lesion. Author [facility] Authored July 23, 2024 9:17 am 68-year-old female referred to the GI clinic for evaluation of fatty liver Ultrasound few month ago showed 1.1 cm liver lesion and hepatic steatosis. ALP is 120 otherwise rest of liver enzymes are normal. Viral hepatitis serologies are negative. Fibroscan on 06/28/2024 showed LSM: 4.[address] on 06/28/24 showed Fatty liver with left hepatic lobe lesion within the dome measuring 2 cm in size most suggestive of a hemangioma. - Will arrange for MRI liver in 6 months. - Will check AMA and ALP isoenzymes [facility] Work Phone: 1(961) 439-436302-18-2025 Evaluation note* Author Rin Nicholson [facility] Authored June 05, 2024 10:40am The above note written by __ _Wilmer Helm____ acting as human recorder, note dictated by Dr. Castro .I performed the above HPI, ROS, and Examination. I formulated and dictated the treatment plan and was present for entire encounter. Rin Nicholson D.O. [facility] Work Phone: 1(199) 744-689102-18-2025 Evaluation note* Author Rin Nicholson [facility] Authored June 05, 2024 10:40am The above note written by __ _Wilmer Helm____ acting as human recorder, note dictated by Dr. Castro .I performed the above HPI, ROS, and Examination. I formulated and dictated the treatment plan and was present for entire encounter. Rin Nicholson D.O. Author [facility] Authored June 14, 2024 11:06am 68-year-old female referred to the GI clinic for evaluation of fatty liver and epigastric pain +epigastric pain for 2 weeks which have resolved spontaneously. Ultrasound few month ago showed 1.1 cm liver lesion and hepatic steatosis. Will check liver enzymes. Will check viral hepatitis serologies. Will arrange for FibroScan. Will arrange for triphasic CT to evaluate the liver lesion. [facility] Work Phone: 1([phone]) 390-264002-10-2025 Radiology Diagnostic study [facility] [place] [address] Ultrasound Report Signed Patient: Leslee Nevarez MR#: [id number] : 1955 Acct:[id number] Age/Sex: 68 / F ADM Date: 5 Loc: Room: Type: [facility] Attending Dr: Barbara Franklin MD Ordering Provider: Barbara Franklin MD Date of Service: 05/28/24 US/US renal BI: N18.9 - Chronic kidney disease, unspecified Copies to: Barbara Franklin MD~ BILATERAL RENAL AND BLADDER ULTRASOUND CLINICAL HISTORY: Stage III 3 chronic kidney disease. COMPARISON: None FINDINGS: Estimation of renal size is approximately 8.55 cm on the right and 9.01 cm on the left. No contour deforming mass, shadowing stone or hydronephrosis. The urinary bladder is partially distended with a volume of 115.96 ml. No shadowing stone or focal lesion. No significant postvoid residual. US/US renal BI IMPRESSION: No acute findings. Impression dictated by: Carlos Alberto Thornton Jr., D.O.05/28/2024 2:52 PM Dictation Location: [place] [address] Tech: Starla Funk Transcribed By: CANDACE 05/28/241451 Dictated By: Carlos Alberto Thornton Jr, DO 05/28/241449 Signed By: 05/28/241451 [facility]11-19-2024 History of Present illness Narrative * Nae Argueta MD - 03/06/2024 11:00 AM EST Leslee Nevarez is a 68 y.o. female Nae Argueta MD presents with chief complaint of Thyroid [...] right lobe 4.5 x 1.8 x 1.3. Thereare three nodules, in the middle TR 4, 6 mm; in the upper TR 3, 10 mm; and in the lower TR 3, 9 mm.Left lobe 4.9 x 1.2 x 1.3 cm. [...] 4 months (around 07/04/2024). documented in this encounterSaint John's Health [id number] Nuclear medicine Diagnostic study [facility] [place] [address] Nuclear Medicine Report Signed Patient: Leslee Nevarez MR#: [id number] : 1955 Acct:[id number] Age/Sex: 68 / F ADM Date: 4 Loc: [place] Room: Type: [facility] Attending Dr: Eddie Urias MD Copies to: Eddie Urias MD, [facility] Ryne Johnson MD~ Ordering Provider: Eddie Urias MD, [facility] Date of Service: 03/02/24 NM/NM heaven perf SPECT rest & str: R07.9 REFERRING PHYSICIAN: Eddie Urias MD REASON FOR THE STUDY: Chest pain. PROCEDURE: The patient underwent a 1-day rest/stress protocol. Rest images obtained by injecting 6.2 mCi of Cardiolite. Stress images obtained by injecting 19.6 mCi of Cardiolite. Subsequently, gatedSPECT and ejection fraction studies were performed. IMAGING RESULT: This appears to be a fair study. It appears to be normal. There is no clear patternof ischemia or myocardial infarction. Left ventricular ejection fraction appears normal, calculatedat 80%. TID index normal at 0.78. CONCLUSION: 1. Normal myocardial perfusion study. 2. No ischemia or myocardial infarction. 3. Normal left ventricular systolic function and wall motion. 4. No previous study available for comparison. Transcribed By: RACHEL 03/02/242123 Dictated By: Ryne Johnson MD 03/02/24 1551 Signed By: 03/03/24 0704 [facility] Work Phone: 1(947) 117-713710-18-2024 Evaluation note* Author Rin Nicholson [facility] Authored February 03, 2024 1 2:16pm The above note written by __ _Wilmer Helm____ acting as human recorder, note dictated by Dr. Castro .I performed the above HPI, ROS, and Examination. I formulated and dictated the treatment plan and was present for entire encounter. Rin Nicholson D.O. [facility] Work Phone: 1([phone]) 473-524701-16-2024 Evaluation note* Encounter Date Diagnosis Assessment Notes Treatment Notes Treatment Clinical Notes Apr, GERD (gastroesophageal reflux disease) (ICD-10 - K21.9) [facility] Other 2023 Evaluation note* Encounter Date Diagnosis Assessment Notes Treatment Notes Treatment Clinical Notes Mar, Abnormal blood chemistry (ICD-10 - R79.9) Mar, Hypercalcemia (ICD-1 0 - E83.52) Mar, Stage 3a chronic kidney disease (ICD-10 - N18.31) [facility] Other 06-09-2023 Evaluation note* Encounter Date Diagnosis [...] see where her kidney studies are at. [facility] Other 04-24-2023 Evaluation note* Encounter Date Diagnosis [...] results. She may have to see the marketing information analyst again but we will wait and see [...] ice the shoulder or alternate with heat. [facility] Other 01-05-2023 Evaluation note* Encounter Date Diagnosis Assessment Notes Treatment Notes Treatment Clinical Notes Apr, Hypertension (ICD-10 - I10) [facility] Other 10-24-2022 Evaluation note* Encounter Date Diagnosis [...] this. She does agree to see an critical care nurse specialist. A referral is provided. Her range [...] her wi th an order for a Hot Potato vaccine [facility] Other 02-01-2021 History general Narrative - Reported* Type Description Date Medical History Stress Test; [facility], normal per patient Medical History Pap and Pelvic 3 yea rs ago, OBGYN in [place] Medical History Mammogram over 5 yea rs; Normal at that time per patient Medical History CT Abdomen and Pelvi s over 5 years ago; [facility] Medical History Colonoscopy 8 years ago; in [place], normal in patient Medical History Chest X-Ray 12-15-11; normal, [facility] Medical History Echocardiogram; 12-15; [facility] Medical History Cardiolite Stress Te st 12-16-11; [facility] Medical History Check's sugar's bid Medical History Heart Catherization; [facility] Medical History breast cancer 04/2014 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, status post lumpectomy x2, sentinel lymph node biopsy and adjuvant radiotherapy that concluded on 08-21-14 Medical History 11/2016 diabetic shif ting in rt eye - Dr French from [facility] Surgical History Tonsillectomy age 21 Surgical History ovarian tumor removed and left ovary Surgical History complete hysterectomy 1993 Surgical History Heart Catherization; [facility] Surgical History Right Shoulder Tear and bone spur removal; [facility] 07-27-12 Surgical History Left Shoulder Rotato [...] for a kidney stone Surgical History mammogram [facility] [place] 04/2017 Surgical History vertabrae fusion 08/2018 Hospitalization History ovarian tumor removed an d left overy Hospitalization History complete hysterectomy 19 94 [facility] Other 01-19-2021 History general Narrative - Reported* Type Description Date Medical History Stress Test; [facility], normal per patient Medical History Pap and Pelvic 3 yea rs ago, OBGYN in [place] Medical History Mammogram over 5 yea rs; Normal at that time per patient Medical History CT Abdomen and Pelvi s over 5 years ago; [facility] Medical History Colonoscopy 8 years ago; in [place], normal in patient Medical History Chest X-Ray 12-15-11; normal, [facility] Medical History Echocardiogram; 12-15; [facility] Medical History Cardiolite Stress Te st 12-16-11; [facility] Medical History Check's sugar's bid Medical History Heart Catherization; [facility] Medical History breast cancer 04/2014 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, status post lumpectomy x2, sentinel lymph node biopsy and adjuvant radiotherapy that concluded on 08-21-14 Medical History 11/2016 diabetic yao tincheryl in rt eye - Dr French from [facility] Surgical History Tonsillectomy age 21 Surgical History ovarian tumor removed and left ovary Surgical History complete hysterectomy 1993 Surgical History Heart Catherization; [facility] Surgical History Right Shoulder Tear and bone spur removal; [facility] 07-27-12 Surgical History Left Shoulder Rotato [...] for a kidney stone Surgical History mammogram [facility] [place] [facility] 04/2017 Surgical History vertabrae fusion 08/2018 Hospitalization History ovarian tumor removed an d left overy Hospitalization History complete hysterectomy 19 94 [facility] Other 12-27-2020 History general Narrative - Reported* Type Description Date Medical History Stress Test; [facility], normal per patient Medical History Pap and Pelvic 3 yea rs ago, OBGYN in [place] Medical History Mammogram over 5 yea rs; Normal at that time per patient Medical History CT Abdomen and Pelvi s over 5 years ago; [facility] Medical History Colonoscopy 8 years ago; in [place], normal in patient Medical History Chest X-Ray 12-15-11; normal, [facility] Medical History Echocardiogram; 12-15; [facility] Medical History Cardiolite Stress Te st 12-16-11; [facility] Medical History Check's sugar's bid Medical History Heart Catherization; [facility] Medical History breast cancer 04/2014 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, status post lumpectomy x2, sentinel lymph node biopsy and adjuvant radiotherapy that concluded on 08-21-14 Medical History 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 - Dr French from [facility] Surgical History Tonsillectomy age 21 Surgical History ovarian tumor removed and left ovary Surgical History complete hysterectomy 1993 Surgical History Heart Catherization; [facility] Surgical History Right Shoulder Tear and bone spur removal; [facility] 07-27-12 Surgical History Left Shoulder Rotato [...] for a kidney stone Surgical History mammogram [facility] [place] [facility] 04/2017 Surgical History vertabrae fusion 08/2018 Hospitalization History ovarian tumor removed an d left overy Hospitalization History complete hysterectomy 19 94 [facility] Other 12-20-2020 History general Narrative - Reported* Type Description Date Medical History Stress Test; [facility], normal per patient Medical History Pap and Pelvic 3 yea rs ago, OBGYN in [place] Medical History Mammogram over 5 yea rs; Normal at that time per patient Medical History CT Abdomen and Pelvi s over 5 years ago; [facility] Medical History Colonoscopy 8 years ago; in [place], normal in patient Medical History Chest X-Ray 12-15-11; normal, [facility] Medical History Echocardiogram; 12-15; [facility] Medical History Cardiolite Stress Te st 12-16-11; [facility] Medical History Check's sugar's bid Medical History Heart Catherization; [facility] Medical History breast cancer 04/2014 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, status post lumpectomy x2, sentinel lymph node biopsy and adjuvant radiotherapy that concluded on 08-21-14 Medical History 11/2016 diabetic shif ting in rt eye - Dr French from [facility] Surgical History Tonsillectomy age 21 Surgical History ovarian tumor removed and left ovary Surgical History complete hysterectomy 1993 Surgical History Heart Catherization; [facility] Surgical History Right Shoulder Tear and bone spur removal; [facility] 07-27-12 Surgical History Left Shoulder Rotato [...] for a kidney stone Surgical History mammogram [facility] [facility] 04/2017 Surgical History vertabrae fusion 08/2018 Hospitalization History ovarian tumor removed an d left overy Hospitalization History complete hysterectomy 19 94 [facility] Other 12-04-2020 History general Narrative - Reported* Type Description Date Medical History Stress Test; [facility], normal per patient Medical History Pap and Pelvic 3 yea rs ago, OBGYN in [place] Medical History Mammogram over 5 yea rs; Normal at that time per patient Medical History CT Abdomen and Pelvi s over 5 years ago; [facility] Medical History Colonoscopy 8 years ago; in [place], normal in patient Medical History Chest X-Ray 12-15-11; normal, [facility] Medical History Echocardiogram; 12-15; [facility] Medical History Cardiolite Stress Te st 12-16-11; [facility] Medical History Check's sugar's bid Medical History Heart Catherization; [facility] Medical History breast cancer 04/2014 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, status post lumpectomy x2, sentinel lymph node biopsy and adjuvant radiotherapy that concluded on 08-21-14 Medical History 11/2016 jersey 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 - Dr French from [facility] Surgical History Tonsillectomy age 21 Surgical History ovarian tumor removed and left ovary Surgical History complete hysterectomy 1993 Surgical History Heart Catherization; [facility] Surgical History Right Shoulder Tear and bone spur removal; [facility] 07-27-12 Surgical History Left Shoulder Rotato [...] for a kidney stone Surgical History mammogram [facility] [facility] 04/2017 Surgical History vertabrae fusion 08/2018 Hospitalization History ovarian tumor removed an d left overy Hospitalization History complete hysterectomy 19 94 [facility] Other 11-08-2020 History general Narrative - Reported* Type Description Date Medical History Stress Test; [facility], normal per patient Medical History Pap and Pelvic 3 yea rs ago, OBGYN in [place] Medical History Mammogram over 5 yea rs; Normal at that time per patient Medical History CT Abdomen and Pelvi s over 5 years ago; [facility] Medical History Colonoscopy 8 years ago; in [place], normal in patient Medical History Chest X-Ray 12-15-11; normal, [facility] Medical History Echocardiogram; 12-15; [facility] Medical History Cardiolite Stress Te st 12-16-11; [facility] Medical History Check's sugar's bid Medical History Heart Catherization; [facility] Medical History breast cancer 04/2014 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, status post lumpectomy x2, sentinel lymph node biopsy and adjuvant radiotherapy that concluded on 08-21-14 Medical History 11/2016 [place] 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 - Dr French from [facility] Surgical History Tonsillectomy age 21 Surgical History ovarian tumor removed and left ovary Surgical History complete hysterectomy 1993 Surgical History Heart Catherization; [facility] Surgical History Right Shoulder Tear and bone spur removal; [facility] 07-27-12 Surgical History Left Shoulder Rotato [...] for a kidney stone Surgical History mammogram [facility] [facility] 04/2017 Surgical History vertabrae fusion 08/2018 Hospitalization History ovarian tumor removed an d left overy Hospitalization History complete hysterectomy 19 94 [facility] Other 06-20-2020 History general Narrative - Reported* Type Description Date Medical History Stress Test; [facility], normal per patient Medical History Pap and Pelvic 3 yea rs ago, OBGYN in [place] Medical History Mammogram over 5 yea rs; Normal at that time per patient Medical History CT Abdomen and Pelvi s over 5 years ago; [facility] Medical History Colonoscopy 8 years ago; in [place], normal in patient Medical History Chest X-Ray 12-15-11; normal, [facility] Medical History Echocardiogram; 12-15; [facility] Medical History Cardiolite Stress Te st 12-16-11; [facility] Medical History Check's sugar's bid Medical History Heart Catherization; [facility] Medical History breast cancer 04/2014 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, status post lumpectomy x2, sentinel lymph node biopsy and adjuvant radiotherapy that concluded on 08-21-14 Medical History 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 - Dr French from [facility] Surgical History Tonsillectomy age 21 Surgical History ovarian tumor removed and left ovary Surgical History complete hysterectomy 1993 Surgical History Heart Catherization; [facility] Surgical History Right Shoulder Tear and bone spur removal; [facility] 07-27-12 Surgical History Left Shoulder Rotato [...] for a kidney stone Surgical History mammogram [facility] 04/2017 Surgical History vertabrae fusion 08/2018 Hospitalization History ovarian tumor removed an d left overy Hospitalization History complete hysterectomy 19 94 [facility] Other 05-03-2020 History general Narrative - Reported* Type Description Date Medical History Stress Test; [facility], normal per patient Medical History Pap and Pelvic 3 yea rs ago, OBGYN in [place] Medical History Mammogram over 5 yea rs; Normal at that time per patient Medical History CT Abdomen and Pelvi s over 5 years ago; [facility] Medical History Colonoscopy 8 years ago; in [place], normal in patient Medical History Chest X-Ray 12-15-11; normal, [facility] Medical History Echocardiogram; 12-15; [facility] Medical History Cardiolite Stress Te st 12-16-11; [facility] Medical History Check's sugar's bid Medical History Heart Catherization; [facility] Medical History breast cancer 04/2014 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, status post lumpectomy x2, sentinel lymph node biopsy and adjuvant radiotherapy that concluded on 08-21-14 Medical History 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 - Dr French from [facility] Surgical History Tonsillectomy age 21 Surgical History ovarian tumor removed and left ovary Surgical History complete hysterectomy 1993 Surgical History Heart Catherization; [facility] Surgical History Right Shoulder Tear and bone spur removal; [facility] 07-27-12 Surgical History Left Shoulder Rotato [...] for a kidney stone Surgical History mammogram [facility] 04/2017 Surgical History vertabrae fusion 08/2018 Hospitalization History ovarian tumor removed an d left overy Hospitalization History complete hysterectomy 19 94 [facility] Other 04-26-2020 History general Narrative - Reported* Type Description Date Medical History Stress Test; [facility], normal per patient Medical History Pap and Pelvic 3 yea rs ago, OBGYN in [place] Medical History Mammogram over 5 yea rs; Normal at that time per patient Medical History CT Abdomen and Pelvi s over 5 years ago; [facility] Medical History Colonoscopy 8 years ago; in [place], normal in patient Medical History Chest X-Ray 12-15-11; normal, [facility] Medical History Echocardiogram; 12-15; [facility] Medical History Cardiolite Stress Te st 12-16-11; [facility] Medical History Check's sugar's bid Medical History Heart Catherization; [facility] Medical History breast cancer 04/2014 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, status post lumpectomy x2, sentinel lymph node biopsy and adjuvant radiotherapy that concluded on 08-21-14 Medical History 11/2016 diabetic yao tincheryl in rt eye - Dr French from [facility] Surgical History Tonsillectomy age 21 Surgical History ovarian tumor removed and left ovary Surgical History complete hysterectomy 1993 Surgical History Heart Catherization; [facility] Surgical History Right Shoulder Tear and bone spur removal; [facility] 07-27-12 Surgical History Left Shoulder Rotato [...] for a kidney stone Surgical History mammogram [facility] 04/2017 Surgical History vertabrae fusion 08/2018 Hospitalization History ovarian tumor removed an d left overy Hospitalization History complete hysterectomy 19 94 [facility] Other 04-21-2020 History general Narrative - Reported* Type Description Date Medical History Stress Test; [facility], normal per patient Medical History Pap and Pelvic 3 yea rs ago, OBGYN in [place] Medical History Mammogram over 5 yea rs; Normal at that time per patient Medical History CT Abdomen and Pelvi s over 5 years ago; [facility] Medical History Colonoscopy 8 years ago; in [place], normal in patient Medical History Chest X-Ray 12-15-11; normal, [facility] Medical History Echocardiogram; 12-15; [facility] Medical History Cardiolite Stress Te st 12-16-11; [facility] Medical History Check's sugar's bid Medical History Heart Catherization; [facility] Medical History breast cancer 04/2014 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, status post lumpectomy x2, sentinel lymph node biopsy and adjuvant radiotherapy that concluded on 08-21-14 Medical History 11/2016 diabetic shif ting in rt eye - Dr French from [facility] Surgical History Tonsillectomy age 21 Surgical History ovarian tumor removed and left ovary Surgical History complete hysterectomy 1993 Surgical History Heart Catherization; [facility] Surgical History Right Shoulder Tear and bone spur removal; [facility] 07-27-12 Surgical History Left Shoulder Rotato [...] for a kidney stone Surgical History mammogram [facility] [facility] 04/2017 Surgical History vertabrae fusion 08/2018 Hospitalization History ovarian tumor removed an d left overy Hospitalization History complete hysterectomy [facility] Other 03-12-2020 History general Narrative - Reported* Type Description Date Medical History Stress Test; [facility], normal per patient Medical History Pap and Pelvic 3 yea rs ago, OBGYN in [place] Medical History Mammogram over 5 yea rs; Normal at that time per patient Medical History CT Abdomen and Pelvi s over 5 years ago; [facility] Medical History Colonoscopy 8 years ago; in [place], normal in patient Medical History Chest X-Ray 12-15-11; normal, [facility] Medical History Echocardiogram; 12-15; [facility] Medical History Cardiolite Stress Te st 12-16-11; [facility] Medical History Check's sugar's bid Medical History Heart Catherization; [facility] Medical History breast cancer 04/2014 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, status post lumpectomy x2, sentinel lymph node biopsy and adjuvant radiotherapy that concluded on 08-21-14 Medical History 11/2016 diabetic shif ting in rt eye - Dr French from [facility] Surgical History Tonsillectomy age 21 Surgical History ovarian tumor removed and left ovary Surgical History complete hysterectomy 1993 Surgical History Heart Catherization; [facility] Surgical History Right Shoulder Tear and bone spur removal; [facility] 07-27-12 Surgical History Left Shoulder Rotato [...] for a kidney stone Surgical History mammogram [facility] [place] 04/2017 Surgical History vertabrae fusion 08/2018 Hospitalization History ovarian tumor removed an d left overy Hospitalization History complete hysterectomy 94 [place] Other 03-07-2020 History general Narrative - Reported* Type Description Date Medical History Stress Test; [facility], normal per patient Medical History Pap and Pelvic 3 yea rs ago, OBGYN in [place] Medical History Mammogram over 5 yea rs; Normal at that time per patient Medical History CT Abdomen and Pelvi s over 5 years ago; [facility] Medical History Colonoscopy 8 years ago; in [place], normal in patient Medical History Chest X-Ray 12-15-11; normal, [facility] Medical History Echocardiogram; 12-15; [facility] Medical History Cardiolite Stress Te st 12-16-11; [facility] Medical History Check's sugar's bid Medical History Heart Catherization; [facility] Medical History breast cancer 04/2014 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, status post lumpectomy x2, sentinel lymph node biopsy and adjuvant radiotherapy that concluded on 08-21-14 Medical History 11/2016 diabetic shif ting in rt eye - Dr French from [facility] Surgical History Tonsillectomy age 21 Surgical History ovarian tumor removed and left ovary Surgical History complete hysterectomy 1993 Surgical History Heart Catherization; [facility] Surgical History Right Shoulder Tear and bone spur removal; [facility] 07-27-12 Surgical History Left Shoulder Rotato [...] for a kidney stone Surgical History mammogram [facility] 04/2017 Surgical History vertabrae fusion 08/2018 Hospitalization History ovarian tumor removed an d left overy Hospitalization History complete hysterectomy 19 94 [place] Other 03-04-2020 History general Narrative - Reported* Type Description Date Medical History Stress Test; [facility], normal per patient Medical History Pap and Pelvic 3 yea rs ago, OBGYN in [place] Medical History Mammogram over 5 yea rs; Normal at that time per patient Medical History CT Abdomen and Pelvi s over 5 years ago; [facility] Medical History Colonoscopy 8 years ago; in [place], normal in patient Medical History Chest X-Ray 12-15-11; normal, [facility] Medical History Echocardiogram; 12-15; [facility] Medical History Cardiolite Stress Te st 12-16-11; [facility] Medical History Check's sugar's bid Medical History Heart Catherization; [facility] Medical History breast cancer 04/2014 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, status post lumpectomy x2, sentinel lymph node biopsy and adjuvant radiotherapy that concluded on 08-21-14 Medical History 11/2016 diabetic shif ting in rt eye - Dr French from [facility] Surgical History Tonsillectomy age 21 Surgical History ovarian tumor removed and left ovary Surgical History complete hysterectomy 1993 Surgical History Heart Catherization; [facility] Surgical History Right Shoulder Tear and bone spur removal; [facility] 07-27-12 Surgical History Left Shoulder Rotato [...] for a kidney stone Surgical History mammogram [facility] [facility] 04/2017 Surgical History vertabrae fusion 08/2018 Hospitalization History ovarian tumor removed an d left overy Hospitalization History complete hysterectomy 19 94 [place] Other 02-22-2020 History general Narrative - Reported* Type Description Date Medical History Stress Test; [facility], normal per patient Medical History Pap and Pelvic 3 yea rs ago, OBGYN in [place] Medical History Mammogram over 5 yea rs; Normal at that time per patient Medical History CT Abdomen and Pelvi s over 5 years ago; [facility] Medical History Colonoscopy 8 years ago; in [place], normal in patient Medical History Chest X-Ray 12-15-11; normal, [facility] Medical History Echocardiogram; 12-15; [facility] Medical History Cardiolite Stress Te st 12-16-11; [facility] Medical History Check's sugar's bid Medical History Heart Catherization; [facility] Medical History breast cancer 04/2014 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, status post lumpectomy x2, sentinel lymph node biopsy and adjuvant radiotherapy that concluded on 08-21-14 Medical History 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 - Dr French from [facility] Surgical History Tonsillectomy age 21 Surgical History ovarian tumor removed and left ovary Surgical History complete hysterectomy 1993 Surgical History Heart Catherization; [facility] Surgical History Right Shoulder Tear and bone spur removal; [facility] 07-27-12 Surgical History Left Shoulder Rotato [...] for a kidney stone Surgical History mammogram [facility] [facility] 04/2017 Surgical History vertabrae fusion 08/2018 Hospitalization History ovarian tumor removed an d left overy Hospitalization History complete hysterectomy 19 94 [place] Other 02-12-2020 History general Narrative - Reported* Type Description Date Medical History Stress Test; [facility], normal per patient Medical History Pap and Pelvic 3 yea rs ago, OBGYN in [place] Medical History Mammogram over 5 yea rs; Normal at that time per patient Medical History CT Abdomen and Pelvi s over 5 years ago; [facility] Medical History Colonoscopy 8 years ago; in [place], normal in patient Medical History Chest X-Ray 12-15-11; normal, [facility] Medical History Echocardiogram; 12-15; [facility] Medical History Cardiolite Stress Te st 12-16-11; [facility] Medical History Check's sugar's bid Medical History Heart Catherization; [facility] Medical History breast cancer 04/2014 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, status post lumpectomy x2, sentinel lymph node biopsy and adjuvant radiotherapy that concluded on 08-21-14 Medical History 11/2016 [place] 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 - Dr French from [facility] Surgical History Tonsillectomy age 21 Surgical History ovarian tumor removed and left ovary Surgical History complete hysterectomy 1993 Surgical History Heart Catherization; [facility] Surgical History Right Shoulder Tear and bone spur removal; [facility] 07-27-12 Surgical History Left Shoulder Rotato [...] for a kidney stone Surgical History mammogram [facility] [facility] 04/2017 Surgical History vertabrae fusion 08/2018 Hospitalization History ovarian tumor removed an d left overy Hospitalization History complete hysterectomy 19 94 [place] Other 10-27-2019 History general Narrative - Reported* Type Description Date Medical History Stress Test; [facility], normal per patient Medical History Pap and Pelvic 3 yea rs ago, OBGYN in [place] Medical History Mammogram over 5 yea rs; Normal at that time per patient Medical History CT Abdomen and Pelvi s over 5 years ago; [facility] Medical History Colonoscopy 8 years ago; in [place], normal in patient Medical History Chest X-Ray 12-15-11; normal, [facility] Medical History Echocardiogram; 12-15; [facility] Medical History Cardiolite Stress Te st 12-16-11; [facility] Medical History Check's sugar's bid Medical History Heart Catherization; [facility] Medical History breast cancer 04/2014 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, status post lumpectomy x2, sentinel lymph node biopsy and adjuvant radiotherapy that concluded on 08-21-14 Medical History 11/2016 [place] 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 - Dr French from [facility] Surgical History Tonsillectomy age 21 Surgical History ovarian tumor removed and left ovary Surgical History complete hysterectomy 1993 Surgical History Heart Catherization; [facility] Surgical History Right Shoulder Tear and bone spur removal; [facility] 07-27-12 Surgical History Left Shoulder Rotato [...] for a kidney stone Surgical History mammogram [facility] [facility] 04/2017 Surgical History vertabrae fusion 08/2018 Hospitalization History ovarian tumor removed an d left overy Hospitalization History complete hysterectomy 19 94 [place] Other Evaluation noteNo InformationNort Lemon Curve Other Evaluation noteNo assessment information available [facility] Work Phone: Evaluation note* Diagnosis 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)- Primary Graves disease (CMS/HCC) Toxic diffuse goiter without mention of thyrotoxic crisis or storm [facility] Diagnosis Onset Date Resolution Status Admit Date Anemia of renal disease acute F ebruary 2024 9:43am Chest pain acute June 05, 2024 9:43am Epigastric pain acute June 05, 2024 9:43am Fatty liver acute May 9:43am Hyperlipidemia acute May 192024 9:43am Hypertension acute May 9:43am Hypokalemia acute May 9:43am Vitamin B12 deficiency acute Fe bru2024 9:43am Diabetes mellitus chronic Februar y 2024 9:43am [facility] Work Phone: Evaluation note* Diagnosis 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 Cornejo or Viki for evaluation of right shoulder pain Diagnosis 1 Shoulder pain, right (M25.511) Referral Organization [facility] [place] Referring Provider First Name Rin Referring Provider Last Name Lyn Referring Provider Specialty Family Prac meenu Referred Organization [facility] Referred Address ,[place], [place],[address] Referred Provider Specialty Orthopedic S urgery Referral Priority Routine General Notes Florinda Leonard 02/08/2022 05:31:28 PM > [facility] referral form hard faxed with visit note, med list and insurance card. pt understands she will be contacted to schedule this appt. [facility] Other Summary Purpose Family History Relationship Condition [...] Unknown sister Diabetes mellitus Unknown Advance Directives Advance Directive Response Recorded Date/ Time Advance Directives No February 15, 2017 3:18pm Advance Directive Response Recorded Date/ Time Advance Directives No February 15, 2017 4:18pm Hospital Course Note MR#: [id number] [facility] Pt. Name: Criselda Nevarez Admitted: 08/23/2018 Discharged: 08/25/2018 Date of : 1955 Physician: Chip Wharton MD DISCHARGE SUMMARY DATE OF DISCHARGE: August [...] :48am Right upper quadrant abdominal pain Octo 2023 9:48am Diabetes mellitus February 03, 2024 9 :48am Chief Complaint Admit Date r07.9 March 02, 2024 8:41am N18.9 D63.1 E11.21 I12.9 N18.32 E05.90 E 53.8 May 28, 2024 10:27am Chief Complaint Admit Date r07.9 March 02, 2024 8:41am N18.9 D63.1 E11.21 I12.9 N18.32 E05.90 E 53.8 May 28, 2024 10:27am 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 May 29, 2 025 10:33am Chief Complaint Admit Date N18.9 D63.1 E11.21 I12.9 N18.32 E05.90 E 53.8 May 28, 2024 10:27am 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 May 29, 2 025 10:33am review labs June 05, 2024 9:43am Reason for Visit Admit Date Anemia of renal disease June 05 9:43am Chest pain June 05, 2024 9:43am Epigastric pain June 05, 2024 9:43am Fatty liver June 05, 2024 9:43am Hyperlipidemia June 05, 2024 9:43am Hypertension June 05, 2024 9:43am Hypokalemia June 05, 2024 9:43am Vitamin B12 deficiency June 05 9:43am Diabetes mellitus June 05, 2024 9:43am Chief Complaint Admit Date N18.9 D63.1 E11.21 I12.9 N18.32 E05.90 E 53.8 May 28, 2024 10:27am 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 May 29 10:33am review labs June 05, 2024 9:43am RENAL 4 MONTH F/U June 06, 2024 9:24am Reason for Visit Admit Date Anemia of renal disease June 05 9:43am Chest pain June 05, 2024 9:43am Epigastric pain June 05, 2024 9:43am Fatty liver June 05, 2024 9:43am Hyperlipidemia June 05, 2024 9:43am Hypertension June 05, 2024 9:43am Hypokalemia June 05, 2024 9:43am Vitamin B12 deficiency June 05 9:43am Diabetes mellitus June 05, 2024 9:43am Anemia of renal disease June 06 9:24am Chronic kidney disease, stage 3b 2024 9:24am 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 June 06, 2024 9:24am Hyperkalemia June 06, 2024 9:24am Hypertensive nephropathy June 06, 2024 9:24am Hyperthyroidism June 06, 2024 9:24am Hypomagnesemia June 06, 2024 9:24am Hyponatremia June 06, 2024 9:24am Vitamin B12 deficiency June 06 9:24am Chief Complaint Admit Date N18.9 D63.1 E11.21 I12.9 N18.32 E05.90 E 53.8 May 28, 2024 10:27am 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 May 29 10:33am review labs June 05, 2024 9:43am RENAL 4 MONTH F/U June 06, 2024 9:24am Refer Dr Nicholson: fatty liver, epigastric pain June 14, 2024 9:52am Reason for Visit Admit Date Anemia of renal disease June 05 9:43am Chest pain June 05, 2024 9:43am Epigastric pain June 05, 2024 9:43am Fatty liver June 05, 2024 9:43am Hyperlipidemia June 05, 2024 9:43am Hypertension June 05, 2024 9:43am Hypokalemia June 05, 2024 9:43am Vitamin B12 deficiency June 05 9:43am Diabetes mellitus June 05, 2024 9:43am Anemia of renal disease June 06 9:24am Chronic kidney disease, stage 3b 2024 9:24am 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 June 06, 2024 9:24am Hyperkalemia June 06, 2024 9:24am Hypertensive nephropathy June 06, 2024 9:24am Hyperthyroidism June 06, 2024 9:24am Hypomagnesemia June 06, 2024 9:24am Hyponatremia June 06, 2024 9:24am Vitamin B12 deficiency June 06 9:24am Epigastric pain June 14, 2024 9:52am Fatty liver June 14, 2024 9:52am Liver lesion June 14, 2024 9:52am Chief Complaint Admit Date N18.9 D63.1 E11.21 I12.9 N18.32 E05.90 E 53.8 May 28, 2024 10:27am 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 May 29 10:33am review labs June 05, 2024 9:43am RENAL 4 MONTH F/U June 06, 2024 9:24am Refer Dr Nicholson: fatty liver, epigastric pain June 14, 2024 9:52am FATTY LIVER R10.13 K76.9 June 28 10:01am Chief Complaint Admit Date N18.9 D63.1 E11.21 I12.9 N18.32 E05.90 E 53.8 May 28, 2024 10:27am 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 May 29 10:33am review labs June 05, 2024 9:43am RENAL 4 MONTH F/U June 06, 2024 9:24am Refer Dr Nicholson: fatty liver, epigastric pain June 14, 2024 9:52am FATTY LIVER R10.13 K76.9 June 28 10:01am F/U FIBRO/LABS/US FATTY LIVER July 23, 2024 8:31am Reason for Visit Admit Date Anemia of renal disease June 05 9:43am Chest pain June 05, 2024 9:43am Epigastric pain June 05, 2024 9:43am Fatty liver June 05, 2024 9:43am Hyperlipidemia June 05, 2024 9:43am Hypertension June 05, 2024 9:43am Hypokalemia June 05, 2024 9:43am Vitamin B12 deficiency June 05 9:43am Diabetes mellitus June 05, 2024 9:43am Anemia of renal disease June 06 9:24am Chronic kidney disease, stage 3b 2024 9:24am 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 June 06, 2024 9:24am Hyperkalemia June 06, 2024 9:24am Hypertensive nephropathy June 06, 2024 9:24am Hyperthyroidism June 06, 2024 9:24am Hypomagnesemia June 06, 2024 9:24am Hyponatremia June 06, 2024 9:24am Vitamin B12 deficiency June 06 9:24am Epigastric pain June 14, 2024 9:52am Fatty liver June 14, 2024 9:52am Liver lesion June 14, 2024 9:52am Fatty liver July 23, 2024 8:31 am Liver lesion July 23, 2024 8:31 am Chief Complaint Admit Date N18.9 D63.1 E11.21 I12.9 N18.32 E05.90 E 53.8 May 28, 2024 10:27am 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 May 29 10:33am review labs June 05, 2024 9:43am RENAL 4 MONTH F/U June 06, 2024 9:24am Refer Dr Nicholson: fatty liver, epigastric pain June 14, 2024 9:52am FATTY LIVER R10.13 K76.9 June 28 10:01am F/U FIBRO/LABS/US FATTY LIVER July 23, 2024 8:31am K76.9, K76.0 July 23, 2024 9:19 am Chief Complaint Admit Date N18.9 D63.1 E11.21 I12.9 N18.32 E05.90 E 53.8 May 28, 2024 10:27am 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 May 29, 2 025 10:33am review labs June 05, 2024 9:43am RENAL 4 MONTH F/U June 06, 2024 9:24am Refer Dr Nicholson: fatty liver, epigastric pain June 14, 2024 9:52am FATTY LIVER R10.13 K76.9 June 28 10:01am F/U FIBRO/LABS/US FATTY LIVER July 23, 2024 8:31am K76.9, K76.0 July 23, 2024 9:19 am R74.8 August 10, 2024 8:3 8am Chief Complaint Admit Date FATTY LIVER R10.13 K76.9 June 28 10:01am F/U FIBRO/LABS/US FATTY LIVER July 23, 2024 8:31am K76.9, K76.0 July 23, 2024 9:19 am R74.8 August 10, 2024 8:3 8am review labs September 03, 2024 9:39a m D05.12 D05.50 L29.9 C50.919 September 13 10:25am Reason for Visit Admit Date Fatty liver July 23, 2024 8:31 am Liver lesion July 23, 2024 8:31 am Breast cancer in situ September 03, 2024 9:3 9am Fatty liver September 03, 2024 9:39a m Hyperlipidemia September 03, 2024 9:39a m Hypertension September 03, 2024 9:39a m Pruritus September 03, 2024 9:39a m Stage 3a chronic kidney disease August 9:39am Diabetes mellitus September 03, 2024 9:39a m Additional Source Comments INFORMATION SOURCE (unrecogn ized section and content) DATE CREATED AUTHOR 06/05/2018 [facility] DATE CREATED AUTHOR AUTHOR'S ORGANIZ ATION 12/09/2018 [facility] DATE CREATED AUTHOR AUTHOR'S ORGANIZ ATION 08/31/2022 [facility] [place] [facility] DATE CREATED AUTHOR AUTHOR'S ORGANIZ ATION 09/15/2024 [facility] DATE CREATED AUTHOR AUTHOR'S ORGANIZ ATION 10/29/2024 [facility] EPIC REASON FOR VISIT (unrecogniz ed section and content) Reason Comments Thyroid Problem Follow-up Reason Comments Thyroid Problem Reason Comments Well Women Visit Goals (unrecognized section and content) Goals may be documented in a n alternate section Care Teams (unrecognized sec tion and content) Team Status: Active Member Role Status Nils Nicholson DO Primary Care Provider Active Team Status: Inactive Member Role Status Nils Nicholson DO Primary Care Provider Active S tart: June 28, 2024 End: June 28, 2024 Jacklyn Heard MD Attending Provider Active Start: June 28, 2024 End: June 28, 2024 Team Status: Inactive Member Role Status Nils Nicholson DO Primary Care Provider Active S tart: July 23, 2024 End: July 23, 2024 Jacklyn Heard MD Attending Provider Active Start: July 23, 2024 End: July 23, 2024 Team Status: Inactive Member Role Status Nils Nicholson DO Primary Care Provider Active S tart: August 10, 2024 End: August 10, 2024 Jacklyn Heard MD Attending Provider Active Start: August 10, 2024 End: August 10, 2024 Team Status: Active Member Role Status Nils Nicholson DO Primary Care Provide r, Attending Provider Active Start: August 21, 2024 Team Status: Inactive Member Role Status Nils Nicholson DO Primary Care Provide r, Attending Provider Active Start: September 03, 2024 End: September 03, 2024 Team Status: Inactive Member Role Status Nils Nicholson DO Primary Care Provide r, Attending Provider Active Start: September 13, 2024 End: September 13, 2024 Team Status: Active Member Role Status Nils Nicholson DO Primary Care Provide r, Attending Provider Active Start: May 22, 2024 Team Status: Inactive Member Role Status Dates Rin Girvin , DO Primary Care Provider Active S tart: May 28, 2024 End: May 28, 2024 Barbara Franklin MD Attending Provider Active Star t: May 28, 2024 End: May 28, 2024 Team Status: Inactive Member Role Status Dates Rin Nicholson DO Primary Care Provider Active S tart: May 29, 2024 End: May 29, 2024 Barbara Franklin MD Attending Provider Active Star t: May 29, 2024 End: May 29, 2024 Team Status: Inactive Member Role Status Dates Rin Nicholson DO Primary Care Provide r, Attending Provider Active Start: June 05, 2024 End: June 05, 2024 Team Status: Inactive Member Role Status [...] Active S tart: February 22, 2024 Nae Argueta MD Attending Provider Active Sta rt: February 22, 2024 Team Status: Inactive Member Role Status Dates Eddie Urias MD Attending Provider Active St art: March 02, 2024 End: March 02, 2024 Rin Nicholson DO Primary Care Provide r, Referring Provider Active Start: March 02, 2024 End: March 02, 2024 Artificial Stone Setter Relationship Specialty Start Date End Date Rin Nicholson MD [address] [place] [address] PCP - General Family Medicine 03/01/24 Artificial Stone Setter Relationship Specialty Start Date End Date Rin Nicholson MD [address] [place] [address] PCP - General Family Medicine 03/01/24 Team Status: Inactive Member Role Status Dates Rin Nicholson DO Primary Care Provider Active S tart: June 06, 2024 End: June 06, 2024 Barbara Franklin MD Attending Provider Active Star t: June 06, 2024 End: June 06, 2024 Artificial Stone Setter Relationship Specialty Start Date End Date Rin Nicholson MD [address] [place], [place] [id number] PCP - General Family Medicine 03/01/24 Artificial Stone Setter Relationship Specialty Start Date End Date Rin Nicholson MD [address] [place], [place] [id number] PCP - General Family Medicine 03/01/24 Team Status: Inactive Member Role Status Dates iRn Nicholson DO Primary Care Provider Active S tart: June 14, 2024 End: June 14, 2024 Jacklyn Heard MD Attending Provider Active Start: June 14, 2024 End: June 14, 2024 Artificial Stone Setter Relationship Specialty Start Date End Date Rin Nicholson MD [address] [place], [place] [id number] PCP - General Family Medicine 03/01/24 Artificial Stone Setter Relationship Specialty Start Date End Date Rin Nicholson MD [address] [place], [place] [phone] PCP - General Family Medicine 03/01/24 Artificial Stone Setter Relationship Specialty Start Date End Date Rin Nicholson MD [address] [place] [address] [place] [address] PCP - General Family Medicine 03/01/24 FOR [...] BE BASED ON THE PRIMARY CLINICAL RECORDS. [employer] [facility]. provides no warranty or guarantee of the accuracy or completeness of information in this document.
--- OUTSIDE RECORDS SUMMARY | 2024-11-07 06:59 | XMS_ITS | Encounter Summary ---
Author Organization [facility] Address [address] [place] [address] Care Team Providers Care House Supervisor Name Role Phone Pramod Roach MD Primary Care Provider [phone] Encounter Details Date Type Department Care Team (Late Contact Info) Description 10/25/2024 Clinisync Result Encounter [facility] External Department Unsolicited Selin No, LOREN [address] [facility] [address] [place], [facility] Social History Tobacco Use Types Packs/Day Years [...] [facility] [address] [place] [address] Nae Argueta MD [address] [place] [address] 10/30/2025 10:00 AM EDT Office Visit [facility] OB [address] [facility] [address] Selin No PA [address] [facility] [address] [place], [facility] documented as of this encounter Procedures Procedure Name Priority Date/Time Associated Diagnosis Comments IGP,APTIMA HPV,AGE GDLN Routine 10/25/2024 10:09 AM EDT documented in this encounter Results * IGP,APTIMA HPV,AGE GDLN (10/25/2024 10:09 AM EDT) AGE GDLN ACOG TESTING Note . [facility] Comment: TESTS RESULT FLAG UNITS REF RANGE LAB Clinician Provided Cytology Information Source.............Vagina No. of containers..01 ThinPrep Vial Age Algo ACOG Linda... Note 01 <21 or >65 or no age provided FLAG LEGEND: L-Low Normal,H-High Normal,LL-Alert Low,HH-Alert High <-Panic Low,>-Panic High,A-Abnormal,AA-Critical Abnormal Performed at: 01 =G Gisela Saucedo [address] [facility] [place] [address] Vicenta Urbina MD, PAP IG (IMAGE GUIDED) Note . [facility] Comment: TESTS RESULT FLAG UNITS REF RANGE LAB DIAGNOSIS: 02 NEGATIVE FOR INTRAEPITHELIAL LESION OR MALIGNANCY. CELLULAR CHANGES ASSOCIATED WITH ATROPHY ARE PRESENT. Specimen adequacy: 02 Satisfactory for evaluation. Performed by: 02 Tiffany Tomas Test Equipment Mechanic ([facility]) . 02 Note: Note 02 [...] <-Panic Low,>-Panic High,A-Abnormal,AA-Critical Abnormal Performed at: [address] [address] Vicenta Urbina MD, Performed at: = - [facility] [address] [id number] Front Office Help: Vicenta Urbina MD, Phone: [phone] Performed at: [facility] [id number] Front Office Help: Vicenta Urbina MD, Phone: [phone] 10/25/2024 10:0 9 AM EDT 10/25/2024 12:31 PM EDT Narrative [facility] - 10/29/2024 2:08 PM EDT SPATULA-ALONE VAGINA us Selin [facility] BLOOD ORDERABLES Final Resul t [facility] documented in this encounter Visit Diagnoses Not on filedocumented in this encounter Care Teams House Supervisor Relationship Specialty Start Date End Date Pramod Roach MD [address] [place] [address] [place] [address] PCP - General Family Medicine 03/01/24 documented as of this encounter
--- OUTSIDE RECORDS SUMMARY | 2024-11-07 06:59 | XMS_ITS | Encounter Summary ---
Author Organization [facility] Address [address] [place] [address] Care Team Providers Care Gas Station Manager Name Role Phone Pramod Roach MD Primary Care Provider Reason for Visit * Reason Comments Med Refill Encounter Details Date Type Department Care Team (Late Contact Info) Description 10/26/2024 Refill [facility] [address] [place] [address] Nae Argueta MD [address] [place] [address] Thyrotoxicosis with diffuse 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 Social History Tobacco Use Types Packs/Day Years [...] on file documented as of this encounter Miscellaneous Notes * Telephone Encounter - Jessica Branch LPN - 10/26/2024 9:22 AM EDT MEDICATION SENT TO PHARMACY. documented in this encounter Plan of Treatment Upcoming Encounters Date Type Department Care Team ([facility] Contact Info) Description 12/06/2024 10:00 AM EDT Office Visit [facility] [address] [place] [address] Nae Argueta MD [address] [place] [address] 10/30/2025 10:00 AM EDT Office Visit [facility] B[facility] OB [address] [facility] [address] Selin No PA [address] [facility] [address] [place], [place] [id number] documented as of this encounter Visit Diagnoses Diagnosis Thyrotoxicosis with diffuse 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 documented in this encounter Care Teams Gas Station Manager Relationship Specialty Start Date End Date Pramod Roach MD [address] [place], [place] [id number] PCP - General Family Medicine 03/01/24 documented as of this encounter
--- OUTSIDE RECORDS SUMMARY | 2024-11-07 06:59 | XMS_ITS | Encounter Summary ---
Author Organization [facility] Address [address] [place] [address] Phone Care Team Providers Care Linux Kernel Developer Name Role Phone Unavailable Primary Care Provider Unavailabl e Encounter Details Date Type Department Care Team (Late st Contact Info) Description 03/02/2024 Scanned Document [facility] [address] [place] [id number] Scanning, Generic Provider Social History Tobacco Use [...]
--- OUTSIDE RECORDS SUMMARY | 2024-11-07 06:59 | XMS_ITS | Encounter Summary ---
Author Organization [facility] Address [address] [place] [address] Care Team Providers Care International Accounting Manager Name Role Phone Pramod Roach MD Primary Care Provider [phone] Encounter Details Date Type Department Care Team (Late Contact Info) Description 10/31/2024 Orders Only [facility] OB [address] [facility] [place] [address] Amita Barker [address] [place] [address] Social History Tobacco Use Types Packs/Day Years [...] AM EDT Office Visit [facility] [address] [place] [address] Nae Argueta MD [address] [place] [address] 10/30/2025 10:00 AM EDT Office Visit [facility] OB [address] [facility] [place] [address] Selin No PA [address] [facility] [place] [address] documented as of this encounter Procedures Procedure Name Priority Date/Time Associated Diagnosis Comments PAP SMEAR Routine 10/25/2024 12:00 AM EDT documented in this encounter Results * Pap Smear (10/25/2024 12:00 AM EDT) Swab Cervical swab / Unknown Selin [facility] CYTOLOGY ORDERABLES Final Re sult EXTERNAL LAB documented in this encounter Visit Diagnoses Not on filedocumented in this encounter Care Teams International Accounting Manager Relationship Specialty Start Date End Date Pramod Roach MD [address] [place] [address] [place] [address] PCP - General Family Medicine 03/01/24 documented as of this encounter
--- OUTSIDE RECORDS SUMMARY | 2024-11-07 06:59 | XMS_ITS | Clinical Summary ---
Author Organization [facility] Address [address] [place] [address] Phone Care Team Providers Care Earth Burner Name Role Phone Unavailable Primary Care Provider [...] age to complete this topic HPV Vaccines Aged Out No longer eligi ble based on patient's age to complete this topic Hepatitis A Vaccines Aged Out No long [...] patient's age to complete this topic Insurance [employer]
--- OUTSIDE RECORDS SUMMARY | 2024-11-07 06:59 | XMS_ITS | Encounter Summary ---
Author Organization [facility] Address [address] [place] [address] Care Team Providers Care Machine Cleaner Name Role Phone Nae Argueta MD Primary Care Provider [phone] Pramod Roach MD Primary Care Provider [phone] Encounter Details Date Type Department Care Team (Late Contact Info) Description 02/22/2024 Orders Only [facility] [address] [place] [address] Nae Argueta MD [address] [place] [address] Social History Tobacco Use Types [...] [facility] [address] [place] [address] Nae Argueta MD [address] [place] [address] 10/30/2025 10:00 AM EDT Office Visit [facility] OB [address] [facility] [place] [address] Selin No PA [address] [facility] [place] [address] documented as of this encounter Procedures Procedure [...] on filedocumented in this encounter Care Teams Machine Cleaner Relationship Specialty Start Date End Date Nae Argueta MD [address] [place] [address] PCP - General Endocrinology 12/21/23 02/29/24 Pramod Roach MD [address] [place] [address] [address] PCP - General Family Medicine 03/01/24 documented as of this encounter
--- OUTSIDE RECORDS SUMMARY | 2024-11-07 06:59 | XMS_ITS | Clinical Summary ---
Author Organization [facility] [facility] Address [id number] [address] [place] [address] Care Team Providers Care Parts Coordinator Name Role Phone No Pcp, No Pcp [...] Not on file Insurance [employer] Care Teams Parts Coordinator Relationship Specialty Start Date End Date No Pcp, [place] [address] PCP - General Family Medicine 08/25/18
[2024-11-07 07:26] LABS: Glucose Urine UA NEGATIVE (NEGATIVE)
[2024-11-07 07:26] LABS: Hematocrit 40.2 % (36.0-48.0); Hemoglobin 13.5 g/dL (12.0-16.0); Mean Corpuscular HGB Conc 33.6 g/dL (29.9-35.2); Mean Corpuscular Hemoglobin 32.0 pg (26.7-34.0); Mean Corpuscular Volume 95.3 fL (81.0-99.0); Platelet Count 316 10^3/uL (150-450); Red Blood Count 4.22 10^6/uL (4.20-5.40); White Blood Count 8.5 10^3/uL (4.0-11.0)
[2024-11-07 07:40] LABS: Protein Creatinine Ratio Urine 0.11; Total Protein Urine Random <6.0 mg/dL (<=11.9)
[2024-11-07 07:41] LABS: Albumin Level 3.8 g/dL (3.4-5.0); Anion Gap 15.7; Blood Urea Nitrogen 30.0 mg/dL (7.0-18.0); Calcium 9.4 mg/dL (8.5-10.1); Carbon Dioxide 23.6 mmol/L (21.0-32.0); Chloride 105 mmol/L (98-107); Estimated GFR (African America 51 (>=60 mL/min/1.73m^2); Estimated GFR (Non-African Ame 42 (>=60 mL/min/1.73m^2); Glucose 128 mg/dL (74-106); Magnesium 1.9 mg/dL (1.8-2.4); Sodium 139 mmol/L (136-145); Uric Acid 6.5 mg/dL (2.6-6.0)
[2024-11-07 07:59] LABS: Potassium 5.3 mmol/L (3.5-5.1)
[2024-11-07 12:18] LABS: Folate 32.80 ng/mL (8.60-58.90)
[2024-11-08 04:11] LABS: Vitamin B12 1339 pg/mL (232-1245)
== END 2024-11-07 06:55 | disposition home or self-care (01) ==
LOC: LAB 06:56
PROVIDERS: PCP Family Medicine; Visit Provider Internal Medicine Nephrology
DX: E83.42 Hypomagnesemia (principal); E87.1 Hypo-osmolality and hyponatremia; E87.5 Hyperkalemia; N18.9 Chronic kidney disease, unspecified; D63.1 Anemia in chronic kidney disease; E11.21 Type 2 diabetes mellitus with diabetic nephropathy
CPT/HCPCS: 36415; 80069; 81003; 82306; 82570; 82607; 82746; 83735; 84156; 84550; 85027

== ENCOUNTER 2024-11-19 07:48 | Outpatient (OUT) | payer MEDICARE, SELFPAY ==
[2024-11-19 09:23] LABS: Free T3 2.60 pg/mL (2.18-3.98); Thyroid Stimulating Hormone 2.500 uIU/mL (0.358-3.740)
== END 2024-11-19 07:49 | disposition home or self-care (01) ==
LOC: LAB 07:50
PROVIDERS: PCP Family Medicine; Visit Provider Internal Medicine
DX: E05.00 Thyrotoxicosis with diffuse goiter without thyrotoxic crisis or storm (principal)
CPT/HCPCS: 36415; 84439; 84443; 84481

== ENCOUNTER 2025-02-25 07:27 | Outpatient (OUT) | payer MEDICARE, SELFPAY ==
--- OUTSIDE RECORDS SUMMARY | 2025-02-25 07:32 | XMS_ITS | Clinical Summary ---
Author Organization [facility] Address [address] [place] [address] Care Team Providers Care Scraper Loader Operator Name Role Phone Unavailable Primary Care Provider Unavailabl e Social History Tobacco UseTypesPacks/DayYears UsedDateSmoking Tobacco: Never Assessed CommentsUnknownSex and Gender InformationValueDate RecordedSex Assigned at Not on fileLegal LmnJorisw02/30/2022 12:14 AM EDTGender IdentityNot on file Sexual OrientationNot on file Last Filed Vital Signs Vital SignReadingTime TakenCommentsBlood Ppzptend022/7911/02/2018 10:14 AM EDT Twxhv265711/02/2018 10:14 AM SPDLqmqlqgornv10.8 ??C (98.2 ??F)11/02/2018 10:14 AM EDTRespiratory Rate--Oxygen Saturation--Inhaled Oxygen Concentration--Ksvbhr71.6 kg (138 lb)11/02/2018 10:14 AM CKRJaviow557.9 cm (4' 11 )11/02/2018 10:14 AM EDT Body Mass Index27.8711/02/2018 10:14 AM EDT Plan of Treatment Not on file
--- OUTSIDE RECORDS SUMMARY | 2025-02-25 07:32 | XMS_ITS | Clinical Summary ---
Author Organization [facility] Address [address] [place] [address] Phone Care Team Providers Care Post Closer Name Role Phone Unavailable Primary Care Provider Unavailabl e Social History Tobacco UseTypesPacks/DayYears UsedDateSmoking Tobacco: Never Assessed CommentsUnknownSex and Gender InformationValueDate RecordedSex Assigned at Not on fileLegal MqrJwvwcx63/25/2022 1:41 PM ESTGender IdentityNot on fileSexual OrientationNot on file Plan of Treatment Health MaintenanceDue DateLast DoneCommentsCT Lfqiywsjjwvi68/09/1956Colonoscopy 1955olorectal Cancer Wjwfpjvzn67/09/1956FIT-DNA (Cologuard)1955FIT 1955Lipid Panel1955Medicare Annual Wellness Visit (AWV)1955 Fxjgaehcyoudp37/09/1956MMR Vaccines (1 of 1 - Standard series)12/25/1956 Hepatitis C Ohdqiomgi55/09/1974DTaP/Tdap/Td Vaccines (1 - Tdap)12/25/1977 Efvwweoew09/09/1996Pneumococcal Vaccine (1 of 1 - PCV)12/25/2005Zoster Vaccines (1 of 2)12/25/2005Bone Density Scan12/25/2020Influenza Vaccine (#1)2024 COVID-19 Vaccine (1 - season)2024RSV High Risk: (Elderly (60+) or Population) (1 - 1-dose 75+ series)12/25/2030HIB VaccinesAged OutNo longer eligible based on patient's age to complete this topicHPV VaccinesAged OutNo longer eligible based on patient's age to complete this topicHepatitis A VaccinesAged OutNo longer eligible based on patient's age to complete this topic Hepatitis B VaccinesAged OutNo longer eligible based on patient's age to complete this topicIPV VaccinesAged OutNo longer eligible based on patient's age to complete this topicMeningococcal VaccineAged OutNo longer eligible based on patient's age to complete this topicRotavirus VaccinesAged OutNo longer eligible based on patient's age to complete this topic Insurance
--- OUTSIDE RECORDS SUMMARY | 2025-02-25 07:32 | XMS_ITS | CCD ---
Author Organization [facility] CliniSymn Care Team Providers Care Operational Review Sergeant Name Role Phone Selin Jean Attending Unavailable Ted, Selin Pastor Attending Unavailable CHUCHO HONEYCUTT Attending Unavailable Ted, Selin Pastor Attending Unavailable UNKNOWN, PROVIDER Admitting Unavailable SELF, REFERRED Referring Unavailable SELF, REFERRED Primary Care Unavailable CHIP WHARTON Attending Unavailable [place] Procedure Practitioner Unavailab le [...] Attending Unavailable GIRVIN, DR GAR Consulting Unavailable DO Rin Nicholson Primary Care Provider [phone] DO Rin Nicholson Attending Provider Eddie Urias MD Attending Provider Rin Nicholson DO Primary Care Provider Rin Nicholson DO Referring Provider Rin Nicholson MD Primary Care Provider Barbara Franklin MD Attending Provider Rin Nicholson DO Primary Care Provider Rin Nicholson DO Primary Care Provider Barbara Franklin MD Attending Provider [phone] Jacklyn Heard MD Attending Provider [phone] Rin Nicholson DO Primary Care Provider Rin Nicholson DO Attending Provider Rin Nicholson MD Primary Care Provider Rin Nicholson DO Primary Care Provider [phone] Rin Nicholson DO Attending Provider Selin No PA-C Attending Provider Unavailable Barbara Franklin MD Attending Provider Nae Argueta MD Attending Provider [phone] NAE ARGUETA Attending Unavailable SELIN NO Attending Unavailable NAE ARGUETA Attending Unavailable NAE ARGUETA Attending Unavailable NAE ARGUETA Referring Unavailable Rin Nicholson DO Primary Care Provider Jacklyn Heard MD Attending Provider [phone] Rin Nicholson Attending Unavailable Lyn Rin [facility] Unavailable Rin Nicholson Admitting Unavailable Asaad, Imad Admitting Unavailable Asaad, Imad Attending Unavailable Rin Nicholson Primary Care Unavailable Rin Nicholson Primary Care Unavailable Asaad, Imad Attending Unavailable Asaad, Imad Admitting Unavailable Rin Nicholson Primary Care Unavailable Asaad, Imad Attending Unavailable Asaad, Imad Admitting Unavailable Darryl Frankliniz Attending Unavailable Darryl Frankliniz Admitting Unavailable Rin Nicholson Primary Care Unavailable Barbara Franklin Attending Unavailable Barbara Franklin Admitting Unavailable Rin Nicholson Primary Care Unavailable Eddie Urias Attending Unavailable Eddie Urias Admitting Unavailable Rin Nicholson Primary Care Unavailable Rin Nicholson Referring Unavailable Asaad, Imad Admitting Unavailable Asaad, Imad Attending Unavailable Rin Nicholson Primary Care Unavailable Rin Nicholson DO Primary Care Provider [phone] Allergies Allergy ClassificationReported Allergen(s)Allergy TypeDate of OnsetReaction(s) Facility (3 sources)hair dyesAllergy to mtixcmbiy38-96-5840Ibiowyw ReactionK[facility] Medications Current Medications MedicationDrug Class(es)DatesSig (Normalized)Sig (Original)atorvastatin 10 mg oral tablet (20 sources)HMG-CoA Reductase InhibitorStart: 56-15-9076ivnl 1 tablet by mouth once dailyAtorvastatin 10 mg tablet Active 10 MG PO Daily June 05, 2024 11:02am Complies with drug therapyStart: 02-08-2024 End: 08-03-8250wicu 1 tablet by mouth once dailyAtorvastatin 10 mg tablet Discontinued 0 .ROUTE .COMPLEX 90 February 08, 2024 3:16pm June 05, 2024 11:03am Take 1 tablet by mouth once dailyStart: 04-06-2017 End: 32-03-0551lhxj 1 tablet by mouth once dailyAtorvastatin 10 mg tablet Discontinued 10 MG PO Daily April 06, 2017 1:00am February 0743:16pm blood sugar diagnostic (OneTouch Ultra Test) (14 sources)Start: 70-32-3148imvcw sugar diagnostic (OneTouch Ultra Test) Active .Route October 04, 2023 12:00am USE TO TEST TWICE A DAY DIRECTEDStart: 22-81-5927gjrtv sugar diagnostic (OneTouch Ultra Test) Active .Route October 03, 2023 11:00pm USE TO TEST TWICE A DAY DIRECTEDStart: 07-50-8998nwluo sugar diagnostic (OneTouch Ultra Test) Active .ROUTE October 03, 2023 11:00pm USE TO TEST TWICE A DAY DIRECTEDblood-glucose meter (Glucometer 3) (14 sources)Start: 56-86-1152vcdne-glucose meter (Glucometer 3) Active .Route October 04, 2023 12:00am UAD/ One Touch GlucometerStart: 31-69-5299fsppy-glucose meter (Glucometer 3) Active .Route October 03, 2023 11:00pm UAD/ One Touch GlucometerStart: 96-71-8835zxtkf-glucose meter (Glucometer 3) Active .ROUTE October 03, 2023 11:00pm UAD/ One Touch GlucometerCobalamin Combinations (COBALAMINE COMBINATIONS PO) (9 sources) End: 77-53-9257Yclowacmy Combinations (COBALAMINE COMBINATIONS PO) Take by mouth 10/25/2024 DiscontinuedCobalamin Combinations (COBALAMINE COMBINATIONS PO) Take by mouth Activefolic acid 0.4 mg / vitamin b12 0.5 mg oral tablet (20 sources)Vitamin E81Zsnla: 56-62-1779impo 1 tablet by mouth three times weeklyVitamin J87-Zbcmh Acid 500-400 mcg tablet Active 1 TAB PO .COMPLEX February 01, 2024 2:47pm 1 tab orally three times a week; Complies with drug therapy Start: 10-17-2023 End: 41-63-3971Ljegdcw L09-Hutsa Acid 500-400 mcg tablet Discontinued 1 TAB PO .COMPLEX October 17, 2023 12:16pm February 01, 2024 2:48pm 1 tab orally Tue-Tuesday;Start: 05-31-2019 End: 11-74-3159twzx 1 tablet by mouth once dailyVitamin T07-Sssso Acid 500-400 mcg tablet Discontinued 1 TAB PO Daily October 04, 2023 7:48am October 17, 2023 12:17pmlisinopril 20 mg oral tablet (20 sources)Angiotensin Converting Enzyme InhibitorStart: 65-18-2067zwqr 1 tablet by mouth once dailyLisinopril 20 mg tablet Active 0 .ROUTE .COMPLEX November 07, 2024 8:11am Take 1 tablet by mouth once daily Complies with drug therapyStart: 06-04-2022 End: 13-23-6444guss 1 tablet by mouth once dailyLisinopril 20 mg tablet Discontinued 20 MG PO Daily October 04, 2023 12:00am November 21, 2023 10:34am magnesium glycinate 100 mg oral tablet (6 sources)take 1 capsule by mouth once dailyMagnesium Glycinate 100 MG capsule Take 100 mg by mouth Daily ActiveMagnesium Glycinate 100 mg magnesium capsule (10 sources)Start: 90-26-6362brhx 1 capsule by mouth once dailyStart: 06-06-2024 take 1 capsule by mouth once dailyMagnesium Glycinate 100 mg magnesium capsule Active 100 MG PO Daily June 06, 2024 1:00am Complies with drug therapy Start: 84-73-3768plno 1 capsule by mouth once dailyMagnesium Glycinate 100 mg magnesium capsule Active 100 MG PO Daily June 06, 2024 1:00amStart: 99-96-2918kwaa 1 capsule by mouth once dailyMagnesium Glycinate 100 mg magnesium capsule Active 100 MG PO Daily June 06, 2024 12:00ammethIMAzole 5 mg oral tablet (20 sources)Thyroid Hormone Synthesis InhibitorStart: 03-06-2024 End: 55-73-0098gcpa 1 tablet by mouth once dailyMethimazole 5 mg tablet Active 5 MG PO Daily June 05, 2024 1:00am Complies with drug therapyStart: 02-01-2024 End: 40-25-5837didh 1 tablet by mouth onceMethimazole 10 mg tablet Discontinued 10 MG PO Once February 01, 2024 12:00am June 05, 2024 10:59amStart: 01-24-2024 End: 47-88-8805vcre 1 tablet by mouth twice dailymethIMAzole (Tapazole) 10 MG tablet Indications: Thyrotoxicosis, unspecified without thyrotoxic crisis or storm (CMS/HCC) Take 1 tablet by mouth twice daily 60 tablet 3 01/24/2024 03/06/2024 Discontinued (Dose adjustment)24 hr metoprolol succinate 25 mg extended release oral tablet (20 sources)beta-Adrenergic BlockerStart: 27-25-7191twiu 1 tablet by mouth once dailyMetoprolol Succinate 25 mg tablet extended release 24 hr Active 25 MG PO Daily February 01, 2024 12:00am Complies with drug therapytake 1 tablet by mouth every twenty-four hoursmetoprolol succinate XL (Toprol-XL) 25 MG 24 hr tablet Take by mouth Do not crush or chew. Activeomeprazole 40 mg delayed release oral capsule (20 sources)Proton Pump InhibitorStart: 04-06-2017 End: 26-06-0216jmwo 1 capsule by mouth once dailyOmeprazole 40 mg capsule,delayed release(DR/EC) Active 40 MG PO Daily May 01, 2024 10:00amComplies with drug therapyOne Touch Glucometer glucometer (16 sources)Start: 70-15-6727Nlx Touch Glucometer glucometer use as directed Dec, ActiveOneTouch Ultra - (16 sources)OneTouch Ultra - USE TO TEST TWICE A DAY DIRECTED for 90 days ActiveOneTouch Ultra - USE TO TEST TWICE A DAY DIRECTED Activepioglitazone 30 mg oral tablet (20 sources)Peroxisome Proliferator Receptor alpha Agonist, Peroxisome Proliferator Receptor gamma Agonist, ThiazolidinedioneStart: 06-05-2024 End: 69-86-3136bqvr 1 tablet by mouth once dailyPioglitazone 30 mg tablet Active 30 MG PO Daily August 27, 2024 8:37am Complies with drug therapyStart: 12-30-2023 End: 27-31-0995smgf 1 tablet by mouth once dailyPioglitazone 30 mg tablet Discontinued 0 .ROUTE .COMPLEX December 30, 2023 10:27am June 05, 2024 11:03am Take 1 tablet by mouth once dailyStart: 04-06-2017 End: 04-54-1619bsgw 1 tablet by mouth once dailyPioglitazone 30 mg tablet Discontinued 30 MG PO Daily April 06, 2017 1:00am December 30, 2023 10:27ampredniSONE 20 mg oral tablet (3 sources) End: 64-91-8469xwpvulQMJY (Deltasone) 20 MG tablet Take by mouth 03/06/2024 Discontinued (Therapy completed)valsartan 320 mg oral tablet (1 source)Angiotensin 2 Receptor BlockerStart: 31-80-3473vhmt 0.5 tablet by mouth once dailyValsartan 320 MG 1/2 tablet Orally Once a day Apr, ActiveVitamin B-12 500 MCG (5 sources)take 1 tablet by mouth every weekVitamin B-12 500 MCG 1 tablet Orally five days per week Activevitamin b12 0.5 mg oral tablet (17 sources)Vitamin I13scth 1 tablet by mouth once dailycyanocobalamin (Vitamin B-12) 500 MCG tablet Take 500 mcg by mouth Daily Activetake 1 tablet by mouth every weekVitamin B-12 500 MCG 1 tablet Orally five days per week Activetake 1 tablet by mouth every weekVitamin B-12 500 MCG 1 tablet Orally five days per week Active Completed/Discontinued Medications MedicationDrug Class(es)DatesSig (Normalized)Sig (Original)acetaminophen 500 mg oral tablet (20 sources)Start: 10-04-2023 End: 24-57-4003pepf 1 tablet by mouth every four hours as neededAcetaminophen (Tylenol Extra Strength) 500 mg tablet Discontinued 500 MG PO Every 4 hours as neededJun2023 12:00am January 24, 2025 9:47amTylenol prn Active amoxicillin 875 mg oral tablet (14 sources)Penicillin-class AntibacterialStart: 07-18-2023 End: 80-81-4309mgqv 1 tablet by mouth twice dailyAmoxicillin 875 mg tablet Discontinued 875 MG PO Twice daily 20 July 18, 2023 12:00am October 04, 2023 7:50amcyclobenzaprine hydrochloride 5 mg oral tablet (9 sources)Muscle RelaxantStart: 28-33-5055Ynclthvauopvkrx HCl 5 MG 1 or 2 tablets by mouth qd hs May, Not-Takingempagliflozin 10 mg oral tablet (20 sources)Sodium-Glucose Cotransporter 2 InhibitorStart: 03-01-2024 End: 27-73-6036rcow 1 tablet by mouth in the morningEmpagliflozin (Jardiance) 10 mg tablet Discontinued 0 .ROUTE .COMPLEX 30 March 30, 2024 8:55amFebruary 2024 11:03am TAKE 1 TABLET BY MOUTH IN THE MORNINGStart: 02-03-2024 End: 59-22-0179pfxp 1 tablet by mouth once daily in the morningEmpagliflozin (Jardiance) 10 mg tablet Discontinued 10 MG PO Every morning June 05, 2024 11:02am June 05, 2024 11:27amglimepiride 1 mg oral tablet (20 sources)SulfonylureaStart: 10-17-2023 End: 40-37-3448gxcp 1 tablet by mouth once daily at breakfastGlimepiride 1 mg tablet Discontinued 1 MG PO .COMPLEX 90 90 June 05, 2024 11:27am November 26, 2024 8:47am 1 mg orally take 1 tablet by mouth once daily with breakfast or FIRST MEAL OF THE DAY;Start: 10-04-2023 End: 59-15-1405qlsp 1 tablet by mouth once daily at breakfastGlimepiride 1 mg tablet Discontinued 0 .ROUTE .COMPLEX 90 October 04, 2023 7:54am October 17, 2023 11:58am take 1 tablet by mouth once daily with breakfast or FIRST MEAL OF THE DAYStart: 04-12-2023 End: 19-70-1393dqon 1 tablet by mouth once daily at breakfastGlimepiride 1 mg tablet Discontinued 1 MG PO Daily October 04, 2023 12:00am October 04, 2023 7:54am with breakfast or the first main meal of the dayhydroCHLOROthiazide 12.5 mg oral tablet (20 sources)Thiazide DiureticStart: 10-17-2023 End: 47-75-0111bbhu 1 tablet by mouth once dailyHydrochlorothiazide 12.5 mg tablet Discontinued 12.5 MG PO Daily October 17, 2023 11:58am June 06, 2024 10:48amStart: 08-22-2023 End: 94-36-2692bnxi 1 tablet by mouth once dailyHydrochlorothiazide 12.5 mg tablet Discontinued 0 .ROUTE .COMPLEX August 22, 2023 5:44pm October 11:58am take 1 tablet by mouth once dailyStart: 04-06-2017 End: 29-12-4880lrnf 1 tablet by mouth once dailyHydrochlorothiazide 12.5 mg tablet Discontinued 12.5 MG PO Daily April 06, 2017 1:00am August 22, 2023 5:44pmmetFORMIN hydrochloride 1000 mg oral tablet (20 sources)BiguanideStart: 10-04-2023 End: 73-99-9074urvp 0.5 tablet by mouth once daily at bedtime, then take 1 tablet by mouth once daily at bedtimeMetformin 1,000 mg tablet Discontinued 0 PO Daily at bedtime October 04, 2023 7:47am October 17, 2023 12:16pm take 1/2 of a 1000 MG tablet orally daily at bedtime;Start: 04-06-2017 End: 09-06-9526jroq 1 tablet by mouth twice dailyMetformin 1,000 mg tablet Discontinued 1000 MG PO Twice daily April 06, 2017 1:00am September 7:54amtake 0.5 tablet by mouth once daily at bedtimemetFORMIN HCl 1000 mg 1/2 tablet Orally qd at bedtime for 90 days ActivemetFORMIN HCl 1000 mg TAKE 1 TABLET TWICE A DAY WITH MEALS ActiveOne Touch Ultra Blue in Vitro Sript (13 sources)Start: 05-24-2024 End: 05-67-7305Wlc Touch Ultra Blue in Vitro Sript Discontinued 0 .Route .MEDSUPPLY May 24, 2024 1:00am May 24, 2024 10:43am use 1 strip to check glucose twice daily as directedStart: 05-24-2024 End: 33-26-6647Bwo Touch Ultra Blue in Vitro Sript Discontinued 0 .Route .MEDSUPPLY 1 May 24, 2024 12:00am May 24, 2024 9:43am use 1 strip to check glucose twice daily as directedquinapril 40 mg oral tablet (17 sources)Angiotensin Converting Enzyme InhibitorStart: 04-06-2017 End: 95-77-1483jevz 1 tablet by mouth once dailyQuinapril 40 mg tablet Discontinued 40 MG PO Daily April 06, 2017 1:00am October 04, 2023 7:49am tamoxifen 20 mg oral tablet (20 sources)Estrogen Agonist/AntagonistStart: 04-06-2017 End: 23-14-5801dmvm 1 tablet by mouth once dailyTamoxifen 20 mg tablet Discontinued 20 MG PO Daily January 30, 2018 9:57am June 02, 2020 4:05pm Problems Active Problems Problem ClassificationProblemDateDocumented DateEpisodic/ChronicAbdominal pain (20 sources)Right upper quadrant pain; 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: [Right upper quadrant pain] Onset: 560385-03-6998GzttnuduSexdpy of breast (20 sources)Carcinoma in situ of breast; 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]Onset: 61-15-7311UlmylkmGmysssq on above:2015left 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, status post lumpectomy x2, sentinel lymph node biopsy and adjuvant radiotherapy that concluded on 7-7-55Dbauedu kidney disease (20 sources)Chronic kidney disease stage 3; 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: [Chronic kidney disease, stage 3 (moderate)]Onset: 230060-55-1068IhejjiwDvobudv kidney disease (2 sources)Chronic kidney disease; 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: [Chronic kidney disease, stage 3b]Onset: 57-69-3583Qqzyfipbpk and other anemia (16 sources)Anemia in chronic kidney disease; 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: [Anemia in chronic kidney disease]ChronicDeficiency and other anemia (1 source)Anemia in chronic kidney disease; 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: [Anemia in chronic kidney disease]Onset: 89-95-7837QdzvqrpPjgqbwhzjy and other anemia (3 sources)Anemia, unspecified; 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: [ANEMIA UNSPECIFIED]Onset: 89-03-1816StgynhwuQhdrcnwqyy and other anemia (14 sources)Anemia; 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: [Anemia, unspecified]24-11-9965Iukkmbch Diabetes mellitus with complications (20 sources)Type 2 diabetes mellitus; 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: [Type 2 diabetes mellitus with diabetic chronic kidney disease]Onset: 722916-75-1856BdgsytbUtfdszou mellitus without complication (20 sources)Type 2 diabetes mellitus well controlled; 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: [Type 2 diabetes mellitus without complications]Onset: 04-92-3678ZkqzbifIhnhrfcw of white blood cells (16 sources)Increased blood leukocyte number; 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: [Elevated white blood cell count, unspecified]ChronicDisorders of lipid metabolism (20 sources)Hyperlipidemia; 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: [Hyperlipidemia, unspecified]Onset: 14-05-2534MyvsagiZkraailvqg disorders (20 sources)Gastroesophageal reflux disease; 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: [Gastro-esophageal reflux disease without esophagitis]ChronicEssential hypertension (20 sources)Hypertensive disorder; 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: [Essential (primary) hypertension]ChronicFluid and electrolyte disorders (20 sources)Hypokalemia; 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: [Hypokalemia]93-67-6029Rxrzmzdo Genitourinary symptoms and ill-defined conditions (2 sources)Nocturia; 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: [NOCTURIA]Onset: 88-52-5951Tneprrih Hypertension with complications and secondary hypertension (20 sources)Hypertensive renal disease; 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: [Hypertensive chronic kidney disease with stage 1 throughstage 4 chronic kidney disease, or unspecified chronic kidney disease]Onset: 525954-22-5362BloikzkKgafmhxnjgb chest pain (20 sources)Chest pain; 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: [Chest pain, unspecified]Onset: 03-02-2024 27-77-7881PrltfncbUzasfghljsb deficiencies (20 sources)Deficiency of other specified B group vitamins; 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: [Cobalamin deficiency]Onset: 29-62-5034AvdoedhpQvilt inflammatory condition of skin (7 sources)Pruritus, unspecified; 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: [Pruritus]Onset: 09-13-2024 29-34-5095OofqgmxeQwgfezf on above:left breastOther liver diseases (16 sources)Steatosis of liver; 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: [Fatty (change of) liver, not elsewhere classified]38-30-5762LhdebkvGbpwr liver diseases (19 sources)Fatty (change of) liver, not elsewhere classified; 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: [Other chronic nonalcoholic liver disease]Onset: 268776-60-2054Tawxaxw Other liver diseases (10 sources)Lesion of liver; 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: [Liver disease, unspecified] 08-92-2271SqydnkxNfuqp liver diseases (10 sources)Liver disease, unspecified; 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: [Other specified disorders of liver]Onset: 687609-56-4833JqkuowiJlhdk nervous system disorders (16 sources)Skin sensation disturbance; 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: [Paresthesia of skin] EpisodicOther non-traumatic joint disorders (2 sources)Pain in right shoulderEpisodicOther nutritional; endocrine; and metabolic disorders (3 sources)Hypercalcemia; 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: [Hypercalcemia]ChronicOther nutritional; endocrine; and metabolic disorders (1 source)HypercalcemiaChronicOther nutritional; endocrine; and metabolic disorders (13 sources)Hypomagnesemia; 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: [Hypomagnesemia]71-68-4461OogdggdDylhn nutritional; endocrine; and metabolic disorders (6 sources)Hypomagnesemia; 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: [Disorders of magnesium metabolism] 62-41-4938ClmlyuoZgawz nutritional; endocrine; and metabolic disorders (3 sources)Abnormal weight gain; 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: [ABNORMAL WEIGHT GAIN]Onset: 06-64-9977IqmkgdosZrlby screening for suspected conditions (not mental disorders or infectious disease) (20 sources)Mammography abnormal; 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: [Other abnormal and inconclusive findings on diagnostic imagingof breast]Onset: 91-04-7756SyxuxvvoHtinzmtw codes; unclassified (2 sources)Postmenopausal state; 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: [Asymptomatic menopausal state] 97-12-0871LokhwybaOuslclf disorders (20 sources)Hyperthyroidism; 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: [Thyrotoxicosis, unspecified without thyrotoxic crisis or storm]Onset: 780230-29-1178XmxzlteZxfkiyrwntrb (2 sources)COUGH, UNSPECIFIED; 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: [COUGH, UNSPECIFIED]Onset: 08-16-8143Uuzwmlgydeta (1 source)CONTACT W/AND (SUSP) EXPOS COVID-19; 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: [CONTACT W/AND (SUSP) EXPOS COVID-19]Onset: 05-03-2022 Past or Other Problems Problem ClassificationProblemDateDocumented DateEpisodic/ChronicOther aftercare (1 source)Other rodent exterminator (current) drug therapy; 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: [OTH SHELTER CURRENT DRUG THERAPY]Onset: 08-85-0292IcakirvuNnwef aftercare (1 source)FPC (current) use of oral hypoglycemic drugs; 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: [SHELTER USE ORAL HYPOGLYCEMIC DX]Onset: 54-91-9057OdofoutaUepkl liver diseases (1 source)Abnormal levels of other serum enzymes; 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: [Abnormal levels of other serum enzymes]Onset: 50-74-0446HsafshxjEcfggnzzo (except that caused by tuberculosis or sexually transmitted disease) (1 source)Bronchopneumonia, unspecified organism; 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: [BRONCHOPNEUMONIA UNS ORGANISM]Onset: 03-55-2833LtktiiwtKqbijbtnbbxk (1 source)COUGH, UNSPECIFIED; 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: [COUGH, UNSPECIFIED]Onset: 04-30-2022 Results Test NameValueInterpretationReference RangeFacilityISTAT XRay CREon 01-14-2025 ISTAT GFR44.513NoCarteret Health Care Physician GroupComment on above:Result Comment: PERFORMED BY: [place] [address] PATHOLOGIST RN CHILD TRE GOVEA M.D.Performed By: #### ISCRE #### [place] [address] USAMR abdomen wo/w conon 32-01-2921OT abdomen wo/w con [facility] [address] MRI Report Signed Patient: Leslee Nevarez MR#: [id number] : 1955 Acct:[id number] Age/Sex: 69 / F ADM Date: 01/14/25 Loc: MR Room: Type: [facility] [address] Attending Dr: Jacklyn Heard MD Copies to: Jacklyn Heard MD Ordering Provider: Jacklyn Heard MD Date of Service: 01/14/25 MR/MR abdomen wo/w con: K76.9 - Liver disease, unspecified MRI OF THE ABDOMEN WITH AND WITHOUT CONTRAST: CLINICAL HISTORY: Hemangioma follow-up COMPARISON: CT abdomen and pelvis 06/28/2024 TECHNIQUE: Multisequence, multiplanar imaging of the abdomen was obtained before and after the use of IV contrast. FINDINGS: Liver appears normal in contour with hepatic steatosis. No intrahepatic ductal dilatation. An hemangioma is once again noted involving segment 2 of the liver measuring 1.7 cm in greatest axial dimension. No sinister enhancing liver lesion is seen. Hepatic and portal veins appear patent. Gallbladder appears unremarkable. No CBD dilatation. Pancreas spleen and adrenal glands appear unremarkable. Subcentimeter T2 hyperintense lesions are seen involving the kidneys, too small for accurate characterization. Aorta appears normal in caliber. No bulky lymphadenopathy or ascites. No pleural effusion. MR/MR abdomen wo/w con IMPRESSION: HEMANGIOMA SEGMENT 2 OF THE LIVER SEEN ON THE PRIOR CT STUDY. NO SINISTER LIVER LESION IS SEEN. NO ACUTE INTRA-ABDOMINAL PROCESS. Impression dictated by: Carlos Alberto Thornton Jr., D.O. 01/14/2025 9:11 AM Dictation Location: [place] [address] Transcribed By: [facility] 01/14/25 0911 Dictated By: Carlos Alberto Thornton Jr, DO 01/14/25 0909 Signed By: 01/14/25 0911[facility] Physician GroupAvenir Behavioral Health Center At Surpriseetic resonance imaging reportOrdered By: Carlos Alberto Thornton on 27-21-6949Ygsid reportBELLEVUE HOSPITAL [place] [address] [place] [address] MRI Report Signed Patient: Leslee Nevarez MR#: [id number] : 1955 Acct:[id number] Age/Sex: 69 / F ADM Date: 5 Loc: Room: Type: [facility] [address] Attending Dr: Jacklyn Heard MD Copies to: Jacklyn Heard MD~ Ordering Provider: Jacklyn Heard MD Date of Service: 01/14/25 MR/MR abdomen wo/w con: K76.9 - Liver disease, unspecified MRI OF THE ABDOMEN WITH AND WITHOUT CONTRAST: CLINICAL HISTORY: Hemangioma follow-up COMPARISON: CT abdomen and pelvis 06/28/2024 TECHNIQUE: Multisequence, multiplanar imaging of the abdomen was obtained beforeand after the use of IV contrast. FINDINGS: Liver appears normal in contour with hepatic steatosis. No intrahepatic ductal dilatation. An hemangioma is once again noted involving segment 2 of the liver measuring 1.7 cm in greatest axial dimension. No sinister enhancing liver lesion is seen. Hepatic and portal veins appear patent. Gallbladder appears unremarkable. No CBD dilatation. Pancreas spleen and adrenal glands appear unremarkable. Subcentimeter T2 hyperintense lesions are seen involving the kidneys, too small for accurate characterization. Aorta appears normal in caliber. No bulky lymphadenopathy or ascites. No pleural effusion. MR/MR abdomen wo/w con IMPRESSION: HEMANGIOMA SEGMENT 2 OF THE LIVER SEEN ON THE PRIOR CT STUDY. NO SINISTER LIVER LESION IS SEEN. NO ACUTE INTRA-ABDOMINAL PROCESS. Impression dictated by: Carlos Alberto Thornton Jr., D.OJameel 01/14/2025 9:11 AM Dictation Location: [place] [address] Transcribed By: [facility] 01/14/25910 Dictated By: Carlos Alberto Thornton Jr, DO 01/14/25908 Signed By: 01/14/25910 [facility] CenterNo Panel InformationOrdered By: Jacklyn Heard on 28-87-9037Ygrihwl Estimated GFR (eGFR)44.513[facility] Whole blood creatinine measurementOrdered By: Jacklyn Heard on 81-38-3340Jzpymemdde [Mass/Vol]1.3 mg/dL0.6-1.3FAvita Health System Galion HospitalComment on above: ER/ESD physician is notified/shown all ISTAT results.Critical values may be confirmed by laboratorytesting ifdeemed necessary by ER attending doctor.Result Comment: ER/ESD physician is notified/shown all ISTAT results. Critical values may be confirmed by laboratory testing if deemed necessary by ER attending doctor.Performed By: #### ISCRE #### [facility] [address] [place] [address] USALaboratory - Chemistry and Chemistry - challengeOrdered By: Nae Argueta on 15-91-7062Rlgm T4 [Mass/Vol]1.24 ng/dL0.76-1.46[facility] CenterTSH Qn2.500 m[IU]/L0.358-3.740[facility] CenterNo Panel InformationOrdered By: Nae Argueta on 37-30-4172Lpwx Triiodothyronine2.60 pg/mL2.18-3.98[facility] CenterErythrocyte distribution width Auto (RBC) [Ratio]Ordered By: Barbara Franklin on 11-07-2024 Erythrocyte distribution width (RBC) [Ratio]14.0 %11.0-15.0[facility] CenterEstimated glomerular filtration rate (GFR) non- Ordered By: Barbara Franklin on 62-67-3081YWN/1.73 sq M.predicted among non-blacks MDRD (S/P/Bld) [Vol rate/Area]42 mL/min/{1.73_m2}Low>=60 mL/min/1.73m 2FAvita Health System Galion HospitalHematocrit Auto (Bld) [Volume fraction]Ordered By: Barbara Franklin on 77-01-0302Jklgjpxauo (Bld) [Volume fraction]40.2 %36.0-48.0[facility] CenterHemoglobin [Mass/volume] in BloodOrdered By: Barbara Franklin on 90-76-4573Hblqspbaeo (Bld) [Mass/Vol]13.5 g/dL12.0-16.0[facility] CenterLaboratory - Chemistry and Chemistry - challengeOrdered By: Barbara Franklin on 73-79-0336Vbxpyqt [Mass/Vol]3.8 g/dL3.4-5.0[facility] CenterCalcium [Mass/Vol]9.4 mg/dL8.5-10.1FAvita Health System Galion Hospital Chloride [Moles/Vol]105 mmol/V66-220RsspzcqxuKettering Health Behavioral Medical CenterCO2 [Moles/Vol]23.6 mmol/L21.0-32.0[facility] CenterCobalamin (Vitamin B12) [Mass/Vol]1339 pg/bZEejuuiva266-6512KohuimllqKettering Health Behavioral Medical CenterComment on above:Performed at: - [facility] [address] [id number] Director: Ced Baum PhD, Phone: [phone] Creatinine [Mass/Vol]1.27 mg/dLHigh0.55-1.02[facility] GFR/1.73 sq M.predicted MDRD (S/P/Bld) [Vol rate/Area]51 mL/min/{1.73_m2}Low>=60 mL/min/1.73m 2FAvita Health System Galion HospitalGlucose [Mass/Vol]128 mg/dLHigh 74-106[facility] CenterMagnesium [Mass/Vol]1.9 mg/dL1.8-2.4 [facility] CenterPotassium [Moles/Vol]5.3 mmol/LHigh3.5-5.1 [facility] CenterComment on above:SPECIMEN SLIGHTLY HEMOLYZED Sodium [Moles/Vol]139 mmol/Q862-604QhwmzgjqxKettering Health Behavioral Medical CenterUrate [Mass/Vol]6.5 mg/dLHigh2.6-6.0[facility] CenterUrea nitrogen [Mass/Vol]30.0 mg/dLHigh7.0-18.0[facility] CenterUrea nitrogen/Creatinine [Mass ratio]23.6 mg/mgKettering Health Behavioral Medical Center Bilirubin Ql (U)NegativeNEGATIVEKettering Health Behavioral Medical CenterGlucose (U) [Mass/Vol]NegativeNEGATIVEKettering Health Behavioral Medical CenterKetones Ql (U) NegativeNEGLima Memorial HospitalpH (U)6.0 [pH]5.0-9.0[facility] Hospitalpecific gravity (U) [Rel density]1.0101.005-1.025 [facility] CenterUrobilinogen Qn (U)0.2 {Tawana'U}/dL0.2-1.0 [facility] CenterLaboratory - Specimen informationOrdered By: Barbara Franklin on 79-93-4947Jbtwnbpdxc (U)CLEARCLEARFAvita Health System Galion HospitalColor (U)LT. YELLOWYELLOWKettering Health Behavioral Medical CenterLaboratory - UrinalysisOrdered By: Barbara Franklin on 89-68-2952Xmvqmzeqm esterase Test strip Ql (U)SMALLAbnormalNEGATIVEKettering Health Behavioral Medical CenterNitrite Ql (U)Negative NEGATIVEKettering Health Behavioral Medical CenterProtein Ql (U)NegativeNEG/TRACE [facility] CenterLeukocytes [#/volume] corrected for nucleated erythrocytes in Blood by Automated counOrdered By: Barbara Franklin on 35-78-0322NFP corrected for nucl RBC Auto (Bld) [#/Vol]8.5 10 3/uL4.0-11.0[facility] HospitalH Auto (RBC) [Entitic mass]Ordered By: Barbara Franklin on 46-02-8587VYE (RBC) [Entitic mass]32.0 pg26.7-34.0[facility] HospitalHC Auto (RBC) [Mass/Vol]Ordered By: Barbara Franklin on 88-80-5256KPET (RBC) [Mass/Vol]33.6 g/dL29.9-35.2FTrinity Health System East CampusV Auto (RBC) [Entitic vol]Ordered By: Barbara Franklin on 31-93-2107IEM (RBC) [Entitic vol]95.3 fL81.0-99.0[facility] CenterNo Panel InformationOrdered By: Barbara Franklin on 930297-Jvlliho Vitamin D Total38.6 ng/mLKettering Health Behavioral Medical CenterComment on above:<20 ng/mL Vit D -<30 ng/mL Vit D leadywbymdmp11-830 ng/mL Vit D sufficient>100 ng/mL Potential ToxicityFolate 32.80 ng/mL8.60-58.90[facility] CenterPhosphorus Level4.0 mg/dL 2.6-4.7FAvita Health System Galion HospitalUrine Occult BloodNegativeNEGATIVE [facility] CenterUrine Random Wjjhhyhmal32.85 mg/dL20.00-300.00 [facility] CenterUrine Random Total Protein<6.0 mg/dL<=11.9 [facility] CenterPlatelet mean volume Auto (Bld) [Entitic vol] Ordered By: Barbara Franklin on 93-53-0242Vwffkyez mean volume (Bld) [Entitic vol] 10.4 fL9.5-13.5FAvita Health System Galion HospitalPlatelets Auto (Bld) [#/Vol] Ordered By: Barbara Franklin on 32-00-8637Ufudbzxrm (Bld) [#/Vol]316 10 3/mM939-464 [facility] CenterRBC Auto (Bld) [#/Vol]Ordered By: Barbara Franklin on 06-11-6389CHI (Bld) [#/Vol]4.22 10 6/uL4.20-5.40[facility] Hospitalerum or plasma anion gap determinationOrdered By: Barbara Franklin on 21-84-1918Ofwzw gap [Moles/Vol]15.7 mmol/LFAvita Health System Galion HospitalUrine protein/creatinine ratioOrdered By: Barbara Franklin on 11-07-2024 Protein/Creatinine (U) [Ratio]0.11[facility] CenterIGP,APTIMA HPV,AGE GDLNon 44-32-2244NFK GDLN ACOG TESTINGNote.NOMS HealthcareComment on above:TESTS RESULT FLAG UNITS REF RANGE LAB Clinician Provided Cytology Information Source.............Vagina No. of containers..01 ThinPrep Vial Age Algo ACOG Linda... Note 01 <21 or >65 or no age provided FLAG LEGEND: L-Low Normal,H-High Normal,LL-Alert Low,HH-Alert High <-Panic Low,>-Panic High,A-Abnormal,AA-Critical Abnormal Performed at: 01 =G [facility] [address] [place] [address] Vicenta Urbina MD, PAP IG (IMAGE GUIDED)Note.NOMS HealthcareComment on above:TESTS RESULT FLAG UNITS REF RANGE LAB DIAGNOSIS: 02 NEGATIVE FOR INTRAEPITHELIAL LESION OR MALIGNANCY. CELLULAR CHANGES ASSOCIATED WITH ATROPHY ARE PRESENT. Specimen adequacy: 02 Satisfactory for evaluation. Performed by: 02 Tiffany Tomas Engineering Lecturer ([facility]) . 02 Note: Note 02 [...] <-Panic Low,>-Panic High,A-Abnormal,AA-Critical Abnormal Performed at: [address] [place] [address] Vicenta Urbina MD, Performed at: =G - [facility] [address] [id number] Photographer Scientific: Vicenta Urbina MD, Phone: [phone] Performed at: [facility] [address] [id number] Photographer Scientific: Vicenta Urbina MD, Phone: [phone] SPATULA-ALONE VAGINA CLINISYNCNOMS HealthcareNo Panel InformationOrdered By: Selin No on 10-25-2024 Reference Lab Test Patient AgeNote.[facility] CenterComment on above:TESTS RESULT FLAG UNITS REF RANGE LAB Clinician Provided Cytology Information Source.............Vagina No. of containers..01 ThinPrep VialAge Algo ACOG Linda... Note 01 <21 or >65 or no age provided FLAG LEGEND: L-Low Normal,H-High Normal,LL-Alert Low,HH-Alert High <-Panic Low,>- Panic High,A-Abnormal,AA-Critical Abnormal Performed at:01 =G [facility] [address] [address] Vicenta Urbina MD, Xdxr Prep Pap ScreenNote.[facility] CenterComment on above:TESTS RESULT FLAG UNITS REF RANGE LAB DIAGNOSIS: 02 NEGATIVE FOR INTRAEPITHELIAL LESION OR MALIGNANCY. CELLULAR CHANGES ASSOCIATED WITH ATROPHY ARE PRESENT.Specimen adequacy: 02 Satisfactory for evaluation.Performed by: 02 Tiffany Tomas Engineering Lecturer ([employer]). 02Note: Note 02 The Pap smear is a screening test designed to aid in the detection ofpremalignant and malignant conditions of the uterine cervix. It is not a diagnostic procedure and should not be used as the sole means of detecting cervical cancer. Both false-positive and false-negative reports do occur.Test Methodology: Note 02 This liquid based ThinPrep(R) pap test was screened with the use of an image guided system. FLAG LEGEND: L-Low Normal,H-High Normal,LL-Alert Low,HH-Alert High <-Panic Low,>- Panic High,A-Abnormal,AA-Critical Abnormal Performed at :[address] [address] Vicenta Urbina MD, Wwrcpyvok at: =G - [facility] [address] [id number] Director:Vicenta Urbina MD, Phone: [phone] at: [facility] [address] [id number] Director: Vicenta Urbina MD, Phone: [phone] diagnostic mammo BI w/Lei 31-85-9925KR diagnostic mammo BI w/[facility] [address] Ultrasound Report Signed Patient: Leslee Nevarez MR#: [id number] : 1955 Acct:[id number] Age/Sex: 68 / F ADM Date: 09/13/24 Loc: [facility] Room: Type: [facility] Attending Dr: Rin Nicholson DO Ordering Provider: Rin Nicholson DO Date of Service: 09/13/24 US/US breast LT limited: 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 09/13/2024 12:25 PM Dictation Location: [facility] Tech: Janette Osei Transcribed By: CANDACE 09/13/24 1225 Dictated By: Turner Harrell DO 09/13/24 1220 Signed By: 09/13/24 1225[facility] Physician Ocean Springs HospitalCholesterol in LDL Calc [Mass/Vol]on 35-86-9535Abocffystof in LDL [Mass/Vol]Cholesterol in LDL [Mass/volume] in Serum or Plasma by [facility] Comment on above:<100 mg/dl YYKYUBR651-533 mg/dl NEAR OR ABOVE DZTOTDF692-651 mg/dl BORDERLINE IQCT938-149 mg/dl HIGH>190 mg/dl VERY HIGHCholesterol in VLDL Calc [Mass/Vol]on 58-30-6252Tbuaxkyewkb in VLDL [Mass/Vol]Cholesterol in VLDL [Mass/volume] in Serum or Plasma by calculationKettering Health Behavioral Medical Center Estimated glomerular filtration rate (GFR) non- Americanon 08-21-2024 GFR/1.73 sq M.predicted among non-blacks MDRD (S/P/Bld) [Vol rate/Area]Estimated glomerular filtration rate (GFR) non- AmericanLow>=60 mL/min/1.73m 2 [facility] CenterGlobulin Calc (S) [Mass/Vol]on 08-21-2024 Globulin (S) [Mass/Vol]Serum globulin measurement by calculation (mass/volume) [facility] CenterGlucose mean value [Mass/volume] in Blood Estimated from glycated hemoglobinon 04-82-1345Vnigmax glucose Estimated from glycated hemoglobin (Bld) [Mass/Vol]Glucose mean value [Mass/volume] in Blood Estimated from glycated hemoglobinKettering Health Behavioral Medical CenterHemoglobin A1c percentageon 53-29-8489OhL0s (Bld) [Mass fraction]Hemoglobin A1c percentage High4.5-6.2FAvita Health System Galion HospitalComment on above:ADA RECOMMENDED LIMIT 4.0 - 6.0ADA THERAPEUTIC TARGET < 7.0ACTION SUGGESTED> 7.0Laboratory - Chemistry and Chemistry - challengeon 63-18-0978Eyqwgxd [Mass/Vol]3.4 g/dL 3.4-5.0[facility] CenterALP [Catalytic activity/Vol]136 U/LHigh 46-116[facility] CenterALT [Catalytic activity/Vol]24 U/L14-59 [facility] CenterAST [Catalytic activity/Vol]14 U/GEyu03-60 [facility] CenterBilirubin [Mass/Vol]0.3 mg/dL0.2-1.0[facility] CenterCalcium [Mass/Vol]8.9 mg/dL8.5-10.1FAvita Health System Galion HospitalChloride [Moles/Vol]105 mmol/M56-854DswlwlpdgKettering Health Behavioral Medical CenterCholesterol [Mass/Vol]205 mg/dLHigh<=200[facility] Cholesterol in HDL [Mass/Vol]49 mg/zR21-62CokyeactwKettering Health Behavioral Medical Center Comment on above:> or =60 mg/dl - LOW CARDIOVASCULAR RISK<40 mg/dl - HIGH CARDIOVASCULAR RISKCO2 [Moles/Vol]26.5 mmol/L21.0-32.0[facility] Medical CenterCreatinine [Mass/Vol]1.18 mg/dLHigh0.55-1.02[facility] CenterGFR/1.73 sq M.predicted MDRD (S/P/Bld) [Vol rate/Area]55 mL/min/{1.73_m2} Low>=60 mL/min/1.73m 2FAvita Health System Galion HospitalGlucose [Mass/Vol]120 mg/eMQqcd37-998OstmozjxwKettering Health Behavioral Medical CenterPotassium [Moles/Vol]4.1 mmol/L 3.5-5.1FAvita Health System Galion HospitalProtein [Mass/Vol]7.1 g/dL6.4-8.2 [facility] Hospitalodium [Moles/Vol]141 mmol/W287-650UjeuyuuopKettering Health Behavioral Medical CenterTriglyceride [Mass/Vol]153 mg/dLHigh<=150[facility] Medical CenterUrea nitrogen [Mass/Vol]16.0 mg/dL7.0-18.0[facility] CenterUrea nitrogen/Creatinine [Mass ratio]13.6 mg/mgKettering Memorial Hospitalerum or plasma albumin/globulin mass ratioon 08-21-2024 Albumin/Globulin [Mass ratio]Serum or plasma albumin/globulin mass ratio [facility] Hospitalerum or plasma anion gap determinationon 03-04-4354Kemjm gap [Moles/Vol]Serum or plasma anion gap determinationKettering Memorial Hospitalerum or plasma total cholesterol/high density lipoprotein (HDL) cholesterol mass jose 40-76-4628Ydsstbhaabh.total/Cholesterol in HDL [Mass ratio]Serum or plasma total cholesterol/high density lipoprotein (HDL) cholesterol mass ratKettering Health Behavioral Medical CenterComment on above:3.3 - 4.4 LOW RISK4.4 - 7.1 AVERAGE RISK7.1 - 11.0 MODERATE RISK>11.0 HIGH RISKNM bone scan whole bodyon 93-17-9145UZ bone scan whole bodyBELLEVUE [facility] Main [place] [id number] Nuclear Medicine Report Signed Patient: Leslee Nevarez MR#: [id number] : 1955 Acct:[id number] Age/Sex: 68 / F ADM Date: 08/10/24 Loc: [place] Room: Type: [facility] Attending Dr: Jacklyn Heard MD Copies to: MD Carmela Gregoyr MD Ordering Provider: Jacklyn Heard MD Date of Service: 08/10/24 [place] bone scan whole body: R74.8 - Abnormal [...] right hand is the site of injection. [place] bone scan whole body IMPRESSION: SITES OF MILD DEGENERATIVE JOINT UPTAKE. NO OTHER SIGNIFICANT BONE SCAN FINDINGS. Impression dictated by: Carmela Cuevas M.D. 08/10/2024 3:42 PM Dictation Location: [place] [address] Transcribed By: [facility] 08/10/24 1542 Dictated By: Carmela Cuevas MD 08/10/24 1536 Signed By: 08/10/24 1542NoCarteret Health Care Physician [facility] Springs HospitalAlkaline Phosphatase Isoenzymeon 12-08-3143Oxin Kjoptkwh60 %Lqmmte57-29Xxj [facility] Physician [facility] HospitalComment on above:Performed By: #### ISCRE #### [facility] [address] StreetIntestinal Fxosimpk98 %Normal0-18The [facility] Physician [facility] HospitalComment on above:Result Comment: Performed at: [facility] [address] [id number] Photographer Scientific: Ced Baum PhD, Phone: [phone] PERFORMED BY: [place] [address] PATHOLOGIST RN CHILD PATRICA FLORENCE M.D.Performed By: #### ISCRE #### [place] [address] USALab Daria Alkaline Pvkteqncutx510Ltmx31-890Pls [facility] Physician GroupComment on above:Performed By: #### ISCRE #### [place] [address] USALiver Wkpfiobl60 %Ilxlza63-78Cnv [facility] Physician Group Comment on above:Performed By: #### ISCRE #### [place] [address] USAMitochondrial (M2) Antibodyon 83-25-4363Tuoegeyxwhwra (M2) Antibody<20.6Awnpbn6.0-20.0The [facility] Physician GroupComment on above:Result Comment: Negative 0.0 - 20.0 Equivocal 20.1 - 24.9 Positive >24.9 Mitochondrial (M2) Antibodies are found in 90-96% of patients with primary biliary cirrhosis. Performed at: [employer] - [place] [id number] Photographer Scientific: Ced Baum PhD, Phone: [phone] By: #### ISCRE #### [place] [address] USASerum mitochondria M2 IgG antibody assay (units/volume) Ordered By: Jacklyn Heard on 39-97-2280Ueojfmrvznbr M2 IgG Qn (S)Serum mitochondria M2 IgG antibody assay (units/volume)0.0-20.0[facility] Comment on above:Negative 0.0 - 20.0 Equivocal 20.1 - 24.9 Positive >24.9Mitochondrial (M2) Antibodies are found in 90-96% ofpatients with primary biliary cirrhosis.Performed at: [facility] [address] [id number] Director: Ced Baum PhD, Phone: [phone] or plasma alkaline phosphatase measurement (enzymatic activity/volume)Ordered By: Imad Asaad on 94-77-2568WKK [Catalytic activity/Vol]Alkaline phosphatase [Enzymatic activity/volume] in Serum or XdrjwnWgpv92-738TsyujvcojKettering Health Behavioral Medical Center Serum or plasma bone alkaline phosphatase/total alkaline phosphatase ratio Ordered By: Imad Asaad on 92-05-6042HLF Bone [Catalytic fraction]Serum or plasma bone alkaline phosphatase/total alkaline phosphatase iyyyd53-24GqqocurkuKettering Memorial Hospitalerum or plasma intestinal alkaline phosphatase/total alkaline phosphatase ratio (catOrdered By: Imad Asaad on 51-32-5992LOI Intest [Catalytic fraction]Serum or plasma intestinal alkaline phosphatase/total alkaline phosphatase ratio (cat0-18FAvita Health System Galion HospitalComment on above:Performed at: [address] [id number] Director: Ced Baum PhD, Phone: [phone] alkaline phosphatase measurement with isoenzyme panelOrdered By: Imad Asaad on 70-18-2914BFU Iso Pnl Total alkaline phosphatase measurement with isoenzyme kevqv47-73SnmzyeeqtKettering Health Behavioral Medical CenterAlanine aminotransferase [Enzymatic activity/volume] in Serum or PlasmaOrdered By: Imad Asaad on 62-94-5923GIU [Catalytic activity/Vol] Alanine aminotransferase [Enzymatic activity/volume] in Serum or Plasma752 [facility] CenterAlbumin [Mass/volume] in Serum or Plasma by Bromocresol green (BCG) dye binding methoOrdered By: Imad Asaad on 06-28-2024 Albumin BCG dye [Mass/Vol]Albumin [Mass/volume] in Serum or Plasma by Bromocresol green (BCG) dye binding metho3.5-5.7FAvita Health System Galion HospitalAlkaline phosphatase [Enzymatic activity/volume] in Serum or PlasmaOrdered By: Imad Asaad on 97-39-8522UQA [Catalytic activity/Vol]Alkaline phosphatase [Enzymatic activity/volume] in Serum or VvodvdAwkb12-642MesovuksrKettering Health Behavioral Medical CenterAspartate aminotransferase [Enzymatic activity/volume] in Serum or PlasmaOrdered By: Imad Asaad on 97-66-0081DHT [Catalytic activity/Vol]Aspartate aminotransferase [Enzymatic activity/volume] in Serum or Stzmwv85-20TzhmyqucqKettering Health Behavioral Medical CenterBasophils Auto (Bld) [#/Vol]Ordered By: Jacklyn Heard on 73-26-4026Ihbiyyamc (Bld) [#/Vol]Automated basophil count0.0-0.2FAvita Health System Galion HospitalBasophils/100 WBC Auto (Bld)Ordered By: Jacklyn Heard on 57-40-0107Xczrrarfl/100 WBC (Bld)Automated basophil %.[facility] CenterBilirubin.direct [Mass/volume] in Serum or PlasmaOrdered By: Jacklyn Heard on 02-21-3701Dihqhlnxj.direct [Mass/Vol]Bilirubin.direct [Mass/volume] in Serum or Plasma0.03-0.18FAvita Health System Galion HospitalBilirubin.total [Mass/volume] in Serum or PlasmaOrdered By: Jacklyn Heard on 17-75-8961Eszotdudv [Mass/Vol] Bilirubin.total [Mass/volume] in Serum or Plasma0.3-1.0[facility] Medical CenterCT abdomen pelvis wo/w conon 81-48-6139BE abdomen pelvis wo/w con [facility] [address] CT Scan Report Signed Patient: Leslee Nevarez MR#: [id number] : 1955 Acct:[id number] Age/Sex: 68 / F ADM Date: 06/28/24 Loc: Room: Type: [facility] Attending Dr: Jacklyn Heard MD [...] mostly collapsed. Uterus absent. No adnexal mass.] Peritoneum/Retroperitoneum:Moderate plaque involving the aorta and branches. Aorta [...] Andrea Esquivel M.D.06/28/2024 2:32 PM Dictation Location: [place] [address] Transcribed By: [facility] 06/28/24 1432 Dictated By: Andrea Esquivel MD 06/28/24 1425 Signed By: 06/28/24 1432NoCarteret Health Care Physician [facility] HospitalComplete Blood Count Auto Diffon 70-85-9119Kpnpwlkjw (Bld) [#/Vol]0.1 10*3/uLNormal0.0-0.2The [facility] Physician [facility] HospitalComment on above:Result Comment: PERFORMED BY: [facility] [address] [place] [id number] PATHOLOGIST RN CHILD PATRICA FLORENCE M.D.Performed By: #### CBC, HEPATIC ####[place] [address] [address]#### HAABT, HBSAB, HBCAB, HBSAG ####[facility] ,Basophils/100 WBC (Bld)1.0 %Normal.The [facility] Highlands HealthcareComment on above:Performed By: #### CBC, HEPATIC ####[place] [id number] [place]#### HAABT, HBSAB, HBCAB, HBSAG ####[facility] ,Eosinophils (Bld) [#/Vol] 0.3 10*3/uLNormal0.0-0.45The [facility] Physician GroupComment on above:Performed By: #### CBC, HEPATIC ####[address]#### HAABT, HBSAB, HBCAB, HBSAG ####[facility] ,Eosinophils/100 WBC (Bld)3.5 %Normal.The [facility] Physician Group Comment on above:Performed By: #### CBC, HEPATIC ####[address]#### HAABT, HBSAB, HBCAB, HBSAG ####[facility] ,Erythrocyte distribution width (RBC) [Ratio]13.9 % Ujrsuz67.9-15.3The [facility] Physician GroupComment on above:Performed By: #### CBC, HEPATIC ####[address]#### HAABT, HBSAB, HBCAB, HBSAG ####[facility] ,Hematocrit (Bld) [Volume fraction]37.4 %Hdqrmc02.0-46.4The [facility] Physician GroupComment on above:Performed By: #### CBC, HEPATIC ####[address]#### HAABT, HBSAB, HBCAB, HBSAG ####[facility] ,Hemoglobin (Bld) [Mass/Vol]12.9 g/jFXhnvdm15.8-15.4The [facility] Physician GroupComment on above:Performed By: #### CBC, HEPATIC ####[address]#### HAABT, HBSAB, HBCAB, HBSAG ####[facility] ,Lymphocytes (Bld) [#/Vol]2.2 10*3/uL Normal1.00-4.8The [facility] Physician GroupComment on above:Performed By: #### CBC, HEPATIC ####[address]#### HAABT, HBSAB, HBCAB, HBSAG ####[facility] , Lymphocytes/100 WBC (Bld)27.5 %Normal.The [facility] Physician GroupComment on above:Performed By: #### CBC, HEPATIC ####[address]#### HAABT, HBSAB, HBCAB, HBSAG ####[facility] ,MCH (RBC) [Entitic mass]32.4 paHgfgeq63.7-34.3The [facility] Physician GroupComment on above:Performed By: #### CBC, HEPATIC ####[address]#### HAABT, HBSAB, HBCAB, HBSAG ####[facility] ,MCV (RBC) [Entitic vol]94.1 fLNormal 80-100The [facility] Physician GroupComment on above:Performed By: #### CBC, HEPATIC ####[address]#### HAABT, HBSAB, HBCAB, HBSAG ####[facility] ,Mean Corpuscular HGB Conc34.5 g/vPQqqxbd73.0-35.0The [facility] Physician GroupComment on above: Performed By: #### CBC, HEPATIC ####[place] [address] [place]#### HAABT, HBSAB, HBCAB, HBSAG ####[facility] ,Monocytes (Bld) [#/Vol]0.7 10*3/uLNormal0.0-0.8The [facility] Physician GroupComment on above:Performed By: #### CBC, HEPATIC ####[address]#### HAABT, HBSAB, HBCAB, HBSAG ####[facility] ,Monocytes/100 WBC (Bld)8.3 %Normal.The [facility] Physician GroupComment on above:Performed By: #### CBC, HEPATIC ####[address]#### HAABT, HBSAB, HBCAB, HBSAG ####[facility] ,Neutrophils (Bld) [#/Vol] 4.7 10*3/uLNormal1.8-7.7The [facility] Physician GroupComment on above:Performed By: #### CBC, HEPATIC ####[address]#### HAABT, HBSAB, HBCAB, HBSAG ####[facility] ,Neutrophils/100 WBC (Bld)59.7 %Normal.The [facility] Physician GroupComment on above:Performed By: #### CBC, HEPATIC ####[address]#### HAABT, HBSAB, HBCAB, HBSAG ####[facility] ,NRBC%0.1 /100{WBC}Normal0-0.5The [facility] Physician GroupComment on above:Performed By: #### CBC, HEPATIC ####[address]#### HAABT, HBSAB, HBCAB, HBSAG ####[facility] ,Platelet mean volume (Bld) [Entitic vol] 8.5 fLNormal6.3-10.7The [facility] Physician GroupComment on above:Performed By: #### CBC, HEPATIC ####[place] [address] [place]#### HAABT, HBSAB, HBCAB, HBSAG ####[facility] ,Platelets (Bld) [#/Vol]355 10*3/dMFknehr565-116Rbm [facility] Physician GroupComment on above:Performed By: #### CBC, HEPATIC ####[facility]#### HAABT, HBSAB, HBCAB, HBSAG ####[facility] ,RBC (Bld) [#/Vol]3.97 10*6/uLNormal3.60-5.00The [facility] Physician GroupComment on above:Performed By: #### CBC, HEPATIC ####[address]#### HAABT, HBSAB, HBCAB, HBSAG ####[facility] ,WBC (Bld) [#/Vol]7.9 10*3/uLNormal 3.8-11.6The [facility] Physician GroupComment on above:Performed By: #### CBC, HEPATIC ####[place] [address] [place]#### HAABT, HBSAB, HBCAB, HBSAG ####[facility] ,Creatinine (Bld) [Mass/Vol]Ordered By: Imjulianne Heard on 58-73-7120Utdvayuiis [Mass/Vol]Whole blood creatinine measurement0.6-1.3FAvita Health System Galion HospitalComment on above: ER/ESD physician is notified/shown all ISTAT results.Critical values may be confirmed by laboratorytesting ifdeemed necessary by ER attending doctor. Eosinophils Auto (Bld) [#/Vol]Ordered By: Imad Asaad on 94-39-0530Lzhnbvaowxa (Bld) [#/Vol]Automated eosinophil count0.0-0.45[facility] Eosinophils/100 WBC Auto (Bld)Ordered By: Imad Asaad on 06-28-2024 Eosinophils/100 WBC (Bld)Automated eosinophil %.[facility] Medical CenterErythrocyte distribution width Auto (RBC) [Ratio]Ordered By: Imad Asaad on 14-98-0293Plalrhtdwjd distribution width (RBC) [Ratio]Erythrocyte distribution width [Ratio] by Automated count11.9-15.3FAvita Health System Galion Hospital Globulin Calc (S) [Mass/Vol]Ordered By: ad Asa on 85-97-1677Jcmipfzh (S) [Mass/Vol]Serum globulin measurement by calculation (mass/volume)[facility] Medical CenterHematocrit Auto (Bld) [Volume fraction]Ordered By: ad Asaad on 68-90-5702Bdxituvscz (Bld) [Volume fraction]Hematocrit [Volume Fraction] of Blood by Automated count34.0-46.4FAvita Health System Galion Hospital Hemoglobin [Mass/volume] in BloodOrdered By: [facility] on 11-24-3471Cteobefoaz (Bld) [Mass/Vol]Hemoglobin [Mass/volume] in Blood11.8-15.4FAvita Health System Galion HospitalHepatic Panelon 32-94-3920Rotutie [Mass/Vol]4.3 g/dLNormal3.5-5.7 The [facility] Physician GroupComment on above:Performed By: #### CBC, HEPATIC ####[place] [address] [address]#### HAABT, HBSAB, HBCAB, HBSAG ####[facility] ,Albumin/Globulin [Mass ratio]1.6 {ratio}NormalThe [facility] Physician GroupComment on above:Performed By: #### CBC, HEPATIC ####[place] [address] [address]#### HAABT, HBSAB, HBCAB, HBSAG ####[facility] ,ALP [Catalytic activity/Vol]120 U/RKmwb73-335Amy [facility] Physician GroupComment on above:Result Comment: PERFORMED BY: [facility] [address] [place] [address] PATHOLOGIST RN CHILD PATRICA FLORENCE M.D.Performed By: #### CBC, HEPATIC ####[place] [address] [place]#### HAABT, HBSAB, HBCAB, HBSAG ####[facility] ,ALT [Catalytic activity/Vol]16 U/LNormal 7-52The [facility] Physician GroupComment on above:Performed By: #### CBC, HEPATIC ####[address]#### HAABT, HBSAB, HBCAB, HBSAG ####[facility] ,AST [Catalytic activity/Vol]19 U/WSdkuwa54-86Lke [facility] Physician GroupComment on above: Performed By: #### CBC, HEPATIC ####[address]#### HAABT, HBSAB, HBCAB, HBSAG ####[facility] ,Bilirubin [Mass/Vol]0.3 mg/dLNormal0.3-1.0The [facility] Physician GroupComment on above:Performed By: #### CBC, HEPATIC ####[address]#### HAABT, HBSAB, HBCAB, HBSAG ####[facility] ,Bilirubin,Indirect0.2 mg/dLNemours Children's Hospital Physician GroupComment on above:Performed By: #### CBC, HEPATIC ####[address]#### HAABT, HBSAB, HBCAB, HBSAG ####[facility] ,Bilirubin.indirect [Mass/Vol]0.10 mg/dL Normal0.03-0.18The [facility] Physician GroupComment on above:Performed By: #### CBC, HEPATIC ####[address]#### HAABT, HBSAB, HBCAB, HBSAG ####[facility] ,Globulin (S) [Mass/Vol]2.7 g/dLNoCarteret Health Care Physician GroupComment on above:Performed By: #### CBC, HEPATIC ####[place] [address] [place] [address] [place]#### HAABT, HBSAB, HBCAB, HBSAG ####[facility] ,Protein [Mass/Vol]7.0 g/dLNormal6.4-8.9The [facility] Physician GroupComment on above:Performed By: #### CBC, HEPATIC ####[place] [address] [place] [address] [place]#### HAABT, HBSAB, HBCAB, HBSAG ####[facility] ,Hepatitis A Antibody Totalon 67-67-9733Kqkofbchf A Antibody TotalPositiveCritically abnormalNegativeThe [facility] Physician GroupComment on above:Result Comment: Comment: The HAV total antibody assay detects both IgG and IgM but does not differentiate between them. A negative result suggests susceptibility to infection. A positive result could be due to vaccination, previously resolved infection or active infection. Testing for HAV IgM should be performed if active HAV infection is suspected. [facility] offers profiles that will automatically reflex positive HAV total antibody results to IgM (e.g., panel #[id number] HAV Antibody w/ Rfx). Performed at: [address] [id number] Photographer Scientific: Ced Baum PhD, Phone: [phone] By: #### CBC, HEPATIC ####[place] [address] [place]#### HAABT, HBSAB, HBCAB, HBSAG ####[facility] ,Hepatitis A virus Ab [Presence] in Serum by ImmunoassayOrdered By: Jacklyn Heard on 68-90-8027RML Ab IA Ql (S)Hepatitis A virus Ab [Presence] in Serum by ImmunoassayAbnormalNegative [facility] Medical CenterComment on above:Comment: The HAV total antibody assay detects both IgG andIgM but does not differentiate between them. A negativeresult suggests susceptibility to infection. A positiveresult could be due to vaccination, previously resolvedinfection or active infection. Testing for HAV IgM shouldbe performed if active HAV infection is suspected. [facility]ers profiles that will automatically reflex positive HAVtotal antibody results to IgM (e.g., panel #[id number] HAVAntibody w/ Rfx).Performed at: [address] [id number] Director: Ced Baum PhD, Phone: [phone] B Core Antibodyon 14-35-4932Xdansfdcx B Core AntibodyNegativeNormalNegativeThe [facility] Physician GroupComment on above:Performed By: #### CBC, HEPATIC ####[address]#### HAABT, HBSAB, HBCAB, HBSAG ####[facility] ,Hepatitis B Surface Antibodyon 58-02-3527Qnyqkdzdh B Surface AntibodyNon-ReactiveNormal.The [facility] Physician GroupComment on above:Result Comment: Non Reactive: Not immune to HBV infection. Equivocal: Unable to determine if anti-HBs is present at levels consistent with immunity. Reactive: Anti-HBs concentration detected at greater than 10 mIU/mL. Individual is considered to be immune to infection with HBV.Performed By: #### CBC, HEPATIC ####[address]#### HAABT, HBSAB, HBCAB, HBSAG ####[facility] ,Hepatitis B Surface Antigenon 06-28-2024 HBsAg ScreenNegativeNormalNegativeThe [facility] Physician GroupComment on above: Result Comment: PERFORMED BY: [facility] [address] [place] [address] PATHOLOGIST RN CHILD PATRICA FLORENCE M.D.Performed By: #### CBC, HEPATIC ####[address]#### HAABT, HBSAB, HBCAB, HBSAG ####[facility] ,Hepatitis B virus core antibody assay Ordered By: Jacklyn Heard on 03-48-4531Iyfxdjugm B Core Total AntibodyNegative NegativeKettering Health Behavioral Medical CenterISTAT XRay CREon 76-01-7856Fbcaormwpx [Mass/Vol]0.9 mg/dLNormal0.6-1.3The [facility] Physician GroupComment on above: Result Comment: ER/ESD physician is notified/shown all ISTAT results. Critical values may be confirmed by laboratory testing if deemed necessary by ER attending doctor.Performed By: #### ISCRE #### [facility] [address] [place] [address] USAISTAT GFR>60.0NormalThe [facility] Physician GroupComment on above:Result Comment: PERFORMED BY: [facility] [address] [place] [address] PATHOLOGIST RN CHILD PATRICA FLORENCE M.D.Performed By: #### ISCRE #### [facility] [address] [place] [id number] USALeukocytes [#/volume] corrected for nucleated erythrocytes in Blood by Automated counOrdered By: Imad Asaad on 93-29-7711ADA corrected for nucl RBC Auto (Bld) [#/Vol]Leukocytes [#/volume] corrected for nucleated erythrocytes in Blood by Automated coun3.8-11.6FAvita Health System Galion Hospital Lymphocytes Auto (Bld) [#/Vol]Ordered By: Imad Asaad on 62-92-4937Xngjnobthfv (Bld) [#/Vol]Lymphocytes [#/volume] in Blood by Automated count1.00-4.8[facility] CenterLymphocytes/100 WBC Auto (Bld)Ordered By: Imad Asaad on 62-83-5379Sfrhhouvyyh/100 WBC (Bld)Lymphocytes/100 leukocytes in Blood by Automated count.[facility] Auto (RBC) [Entitic mass] Ordered By: Imad Asaad on 58-89-4460WGW (RBC) [Entitic mass]MCH [Entitic mass] by Automated count24.7-34.3FTrinity Health System East CampusHC Auto (RBC) [Mass/Vol]Ordered By: Imad Asaad on 48-15-3629QODS (RBC) [Mass/Vol]MCHC [Mass/volume] by Automated count32.0-35.0[facility] Medical CenterMCV Auto (RBC) [Entitic vol]Ordered By: Imad Asaad on 00-18-9899AME (RBC) [Entitic vol]MCV [Entitic volume] by Automated -003LlkocjqqzKettering Health Behavioral Medical CenterMonocytes Auto (Bld) [#/Vol]Ordered By: Imad Asaad on 17-71-7433Yavgqppgp (Bld) [#/Vol]Automated blood monocyte count0.0-0.8[facility] CenterMonocytes/100 WBC Auto (Bld)Ordered By: Imad Asaad on 06-28-2024 Monocytes/100 WBC (Bld)Automated monocyte %.[facility] Neutrophils Auto (Bld) [#/Vol]Ordered By: Imad Asaad on 85-56-3493Izwhctqqxqc (Bld) [#/Vol]Neutrophils [#/volume] in Blood by Automated count1.8-7.7FAvita Health System Galion HospitalNeutrophils/100 WBC Auto (Bld)Ordered By: Imad Asaad on 75-75-0101Cllqnimuiob/100 WBC (Bld)Automated neutrophil %.[facility] CenterNo Panel InformationOrdered By: Imad Asaad on 09-25-9726Omoviiy Estimated GFR (eGFR)> 60.0[facility] CenterNucleated erythrocytes [Presence] in Blood by Automated countOrdered By: Imad Asaad on 57-27-7096Nrzdlksbi RBC Auto Ql (Bld)Nucleated erythrocytes [Presence] in Blood by Automated count0-0.5FAvita Health System Galion HospitalPlatelet mean volume Auto (Bld) [Entitic vol]Ordered By: Imad Asaad on 66-90-7848Rmdsxsrh mean volume (Bld) [Entitic vol]Platelet mean volume [Entitic volume] in Blood by Automated count6.3-10.7FAvita Health System Galion HospitalPlatelets Auto (Bld) [#/Vol] Ordered By: Imad Asaad on 71-88-2639Qiupjsiqi (Bld) [#/Vol]Platelets [#/volume] in Blood by Automated ekhlh462-970ZdcxjkmpxKettering Health Behavioral Medical CenterProtein [Mass/volume] in Serum or PlasmaOrdered By: Imad Asaad on 16-57-5878Reqhzza [Mass/Vol]Protein [Mass/volume] in Serum or Plasma6.4-8.9[facility] Medical CenterRBC Auto (Bld) [#/Vol]Ordered By: Jacklyn Heard on 18-84-3115EUK (Bld) [#/Vol]Erythrocytes [#/volume] in Blood by Automated count3.60-5.00 [facility] Hospitalerum hepatitis B virus surface antibody detectionOrdered By: Jacklyn Heard on 98-14-0330RPA surface Ab Ql (S)Hepatitis B virus surface Ab [Presence] in Serum.[facility] Medical CenterComment on above:Non Reactive: Not immune to HBV infection. Equivocal: Unable to determine if anti-HBs is present atlevels consistent with immunity. Reactive: Anti-HBs concentration detected at greater than 10 mIU/mL. Individual is considered to be immune to infection with HBV.Serum or plasma albumin/globulin mass ratioOrdered By: Jacklyn Heard on 63-19-6935Gbagygk/Globulin [Mass ratio]Serum or plasma albumin/globulin mass ratioKettering Memorial Hospitalerum or plasma hepatitis B virus surface antigen detection by immunoassayOrdered By: Jacklyn Heard on 67-45-9608QBE surface Ag IA QlHepatitis B virus surface Ag [Presence] in Serum or Plasma by ImmunoassayNegativeKettering Memorial Hospitalerum or plasma hepatitis C virus genotype identification by probe and target amplifi Ordered By: Jacklyn Heard on 39-95-4501QSU genotype KHANH+probe NomHCV genotyping ser/plas amplified probe.[facility] CenterComment on above:Test not performed. Unable to provide an HCV genotype forthis sample. The most common reason an HCVgenotype cannotbe determined is due to a viral load of <1,000 IU/mL, ormore rarely, the presenceof an untypable HCV genotype.This test was developed and its performance characteristicsdetermined by [employer] It has not been cleared orapproved by the Food and Drug Administration.Performed at: [address] [id number] Director: Kathe Francois MD, Phone: [phone] or plasma non-glucuronidated bilirubin measurement (mass/volume)Ordered By: Jacklyn Heard on 79-57-4374Ourkovtrg.indirect [Mass/Vol]Serum or plasma non-glucuronidated bilirubin measurement (mass/volume) [facility] CenterWBC Auto (Bld) [#/Vol]Ordered By: Jacklyn Heard on 62-47-2830MQV (Bld) [#/Vol]Leukocytes [#/volume] in Blood by Automated count 3.8-11.6FAvita Health System Galion HospitalErythrocyte distribution width Auto (RBC) [Ratio]Ordered By: Barbara Franklin on 24-71-9994Wrpymnyqwwx distribution width (RBC) [Ratio]Erythrocyte distribution width [Ratio] by Automated count 11.9-15.3FAvita Health System Galion HospitalHematocrit Auto (Bld) [Volume fraction]Ordered By: Barbara Franklin on 14-40-0854Vpkulepgiy (Bld) [Volume fraction]Hematocrit [Volume Fraction] of Blood by Automated count34.0-46.4 [facility] CenterHemoglobin [Mass/volume] in BloodOrdered By: Barbara Franklin on 64-12-6030Mhpqqkktbc (Bld) [Mass/Vol]Hemoglobin [Mass/volume] in Blood11.8-15.4FAvita Health System Galion HospitalHemogram CBC Without Diffon 26-72-5654Jmhptzirxsc distribution width (RBC) [Ratio]13.4 %Bsaqzy58.9-15.3The [facility] Physician GroupComment on above:Performed By: #### ISCRE #### [facility] [address] [place] [address] USAHematocrit (Bld) [Volume fraction]39.1 %Hoyzuv65.0-46.4The [facility] Physician GroupComment on above:Performed By: #### ISCRE #### [facility] [address] [place] [address] USAHemoglobin (Bld) [Mass/Vol]13.3 g/sZCjzior56.8-15.4The [facility] Physician GroupComment on above:Performed By: #### ISCRE #### [facility] [address] [place] [address] USAMCH (RBC) [Entitic mass]32.2 cpOdbdlt40.7-34.3The [facility] Physician GroupComment on above:Performed By: #### ISCRE #### [facility] [address] [place] [address] USAMCV (RBC) [Entitic vol]94.4 cPVemexh82-841Wmk [facility] Physician GroupComment on above:Performed By: #### ISCRE #### [facility] [address] [place] [address] USAMean Corpuscular HGB Conc34.1 g/hBIoovhx76.0-35.0The [facility] Physician GroupComment on above:Performed By: #### ISCRE #### [place] [address] USAPlatelet mean volume (Bld) [Entitic vol]8.1 fLNormal 6.3-10.7The [facility] Physician GroupComment on above:Result Comment: PERFORMED BY: [place] [address] PATHOLOGIST RN CHILD PATRICA FLORENCE M.D.Performed By: #### ISCRE #### [place] [address] USAPlatelets (Bld) [#/Vol]353 10*3/uVUbaarg394-765Lea [facility] Physician GroupComment on above:Performed By: #### ISCRE #### [place] [address] USARBC (Bld) [#/Vol]4.14 10*6/uLNormal3.60-5.00The [facility] Physician GroupComment on above:Performed By: #### ISCRE #### [facility] [address] [place] [address] USAWBC (Bld) [#/Vol]9.0 10*3/uLNormal3.8-11.6The [facility] Physician GroupComment on above:Performed By: #### ISCRE #### [place] [address] USALeukocytes [#/volume] corrected for nucleated erythrocytes in Blood by Automated counOrdered By: Barbara Franklin on 64-58-5050IBN corrected for nucl RBC Auto (Bld) [#/Vol]Leukocytes [#/volume] corrected for nucleated erythrocytes in Blood by Automated coun3.8-11.6FAvita Health System Galion Hospital MCH Auto (RBC) [Entitic mass]Ordered By: Barbara Franklin on 63-90-3223LVZ (RBC) [Entitic mass]MCH [Entitic mass] by Automated count24.7-34.3FAvita Health System Galion HospitalMCHC Auto (RBC) [Mass/Vol]Ordered By: Barbara Franklin on 05-29-2024 MCHC (RBC) [Mass/Vol]MCHC [Mass/volume] by Automated count32.0-35.0[facility] Medical CenterMCV Auto (RBC) [Entitic vol]Ordered By: Barbara Franklin on 76-69-2089FIO (RBC) [Entitic vol]MCV [Entitic volume] by Automated umhlb65-252 [facility] Medical CenterPlatelet mean volume Auto (Bld) [Entitic vol] Ordered By: Barbara Franklin on 04-41-5436Ukqjnyob mean volume (Bld) [Entitic vol] Platelet mean volume [Entitic volume] in Blood by Automated count6.3-10.7 [facility] Medical CenterPlatelets Auto (Bld) [#/Vol]Ordered By: Barbara Franklin on 00-34-7765Rwjtmmirw (Bld) [#/Vol]Platelets [#/volume] in Blood by Automated huqph790-483KbojuwlmhKettering Health Behavioral Medical CenterRBC Auto (Bld) [#/Vol] Ordered By: Barbara Franklin on 90-74-1638NRL (Bld) [#/Vol]Erythrocytes [#/volume] in Blood by Automated count3.60-5.00[facility] Medical CenterAlbumin [Mass/volume] in Serum or Plasma by Bromocresol green (BCG) dye binding metho Ordered By: Barbara Franklin on 99-15-5389Gjgttvx BCG dye [Mass/Vol]Albumin [Mass/volume] in Serum or Plasma by Bromocresol green (BCG) dye binding metho 3.5-5.7FAvita Health System Galion HospitalAppearance of UrineOrdered By: Barbara Franklin on 15-05-0689Omobuzyagt (U)Urine appearanceClearFAvita Health System Galion HospitalBilirubin Test strip Ql (U)Ordered By: Barbara Franklin on 05-28-2024 Bilirubin Ql (U)Bilirubin.total [Presence] in Urine by Test stripNegative [facility] CenterCalcium [Mass/volume] in Serum or PlasmaOrdered By: Barbara Franklin on 45-43-5996Caynbuj [Mass/Vol]Calcium [Mass/volume] in Serum or Plasma8.6-10.3FAvita Health System Galion HospitalCarbon dioxide, total [Moles/volume] in Serum or PlasmaOrdered By: Barbara Franklin on 20-94-7493RI7 [Moles/Vol]Carbon dioxide, total [Moles/volume] in Serum or Sjurfa42.0-31.0 [facility] CenterChloride [Moles/volume] in Serum or Plasma Ordered By: Barbara Franklin 73-09-1285Hiexiqhf [Moles/Vol]Chloride [Moles/volume] in Serum or Irwevw62-246MvuywuzuaKettering Health Behavioral Medical CenterColor Auto (U)Ordered By: Barbara Franklin on 49-96-7240Mmmih (U)Color of Urine by Auto YellowKettering Health Behavioral Medical CenterCreatinine [Mass/volume] in Serum or PlasmaOrdered By: Barbara Franklin on 49-23-7294Csnwjplkmw [Mass/Vol]Creatinine [Mass/volume] in Serum or PlasmaHigh0.60-1.20[facility] Creatinine [Mass/volume] in UrineOrdered By: Barbara Franklin on 05-28-2024 Creatinine (U) [Mass/Vol]Creatinine [Mass/volume] in UrineKettering Health Behavioral Medical CenterComment on above:No reference range establishedFerritinon 24-00-0015Wpybcflr [Mass/Vol]43.2 ng/iZCudhqu04.0-306.8The [facility] Physician GroupComment on above:Performed By: #### DAO, [id number], [id number], PTH, UA, URMACRERAT, PROCRERAT, RENAL, MG, URIC, FE and TIBC ####[facility] [address] [place] [address] USAFerritin [Mass/volume] in Serum or PlasmaOrdered By: Barbara Franklin on 15-96-3184Vwwmpxyv [Mass/Vol]Ferritin [Mass/volume] in Serum or Luhqzh49.0-306.8[facility] Folate [Mass/volume] in Serum or PlasmaOrdered By: Barbara Franklin on 05-28-2024 Folate [Mass/Vol]Folate [Mass/volume] in Serum or Plasma>5.9[facility] Medical CenterComment on above:Folate reference range: >5.9 ng/mlThe WHO technical consultation on folate and vitamin w60rtinddeibzgo has determined that folate concentrations lessthan 4 ng/ml are considered deficient.Glucose [Mass/volume] in Serum or PlasmaOrdered By: Barbara Franklin on 73-52-6035Qcujbex [Mass/Vol]Glucose [Mass/volume] in Serum or DzsiwuZfcr80-332VickuktyvKettering Health Behavioral Medical CenterComment on above:ADA recommended reference rangeRandom Glucose Reference Range is dependent on time and content of last meal. Glucose of more than 200 mg/dL in a nonstressed, ambulatory subject supports the diagnosisof Diabetes Mellitus.Glucose [Mass/volume] in Urine by Test stripOrdered By: Barbara Franklin on 29-71-8990Eplppqy Test strip (U) [Mass/Vol]Glucose [Mass/volume] in Urine by Test stripHighNormalKettering Health Behavioral Medical CenterHemoglobin Test strip Ql (U)Ordered By: Barbara Franklin on 57-40-4839Ummmzfmaqc Ql (U)Hemoglobin [Presence] in Urine by Test stripNegativeKettering Health Behavioral Medical CenterIron [Mass/volume] in Serum or PlasmaOrdered By: Barbara Franklin on 70-67-0641Iwvs [Mass/Vol]Iron [Mass/volume] in Serum or Aipzhe04-035BaapzdbnhKettering Health Behavioral Medical CenterIron and TIBC Profileon 05-28-2024% Iron Yrmlewvpqk74.3 %Ovnsjg84-33Wyw [facility] Physician GroupComment on above:Performed By: #### DAO, [id number], [id number], PTH, UA, URMACRERAT, PROCRERAT, RENAL, MG, URIC, FE and TIBC #### [facility] [address] [place] [address] USAIron [Mass/Vol]91 ug/lRMmrshc97-186Cob [facility] Physician GroupComment on above:Performed By: #### DAO, [id number], [id number], PTH, UA, URMACRERAT, PROCRERAT, RENAL, MG, URIC, FE and TIBC #### [facility] [address] [place] [address] USATotal Iron Binding Ytyzxmwe376 ug/yQFqjeny374-676Jlf [facility] Physician GroupComment on above:Performed By: #### DAO, [id number], [id number], PTH, UA, URMACRERAT, PROCRERAT, RENAL, MG, URIC, FE and TIBC #### [place] [address] USATransferrin [Mass/Vol]257 mg/eVAjsjlh181-409Cym [facility] Physician GroupComment on above:Performed By: #### DAO, [id number], [id number], PTH, UA, URMACRERAT, PROCRERAT, RENAL, MG, URIC, FE and TIBC #### [place] [address] USAKetones Test strip Ql (U)Ordered By: Barbara Franklin on 83-42-7974Teyshqr Ql (U)Ketones [Presence] in Urine by Test stripNegative [facility] CenterLeukocyte esterase [Presence] in Urine by Test stripOrdered By: Barbara Franklin on 59-07-6075Kkkqmkbbl esterase Test strip Ql (U) Leukocyte esterase [Presence] in Urine by Test stripNegativeKettering Health Behavioral Medical CenterMagnesiumon 60-35-2810Cllcnhgea [Mass/Vol]1.7 mg/dLLow1.9-2.7The [facility] Physician GroupComment on above:Performed By: #### DAO, [id number], [id number], PTH, UA, URMACRERAT, PROCRERAT, RENAL, MG, URIC, FE and TIBC #### [address] [place] [address] USAMagnesium [Mass/volume] in Serum or PlasmaOrdered By: Barbara Franklin on 65-71-1719Pqzcllcvi [Mass/Vol]Magnesium [Mass/volume] in Serum or PlasmaLow1.9-2.7FAvita Health System Galion HospitalMicroAlb Creat Ratio,Uon 68-66-0943Efixnjh DL <= 20 mg/L (U) [Mass/Vol]mg/dLNormal0.0-1.8The [facility] Physician GroupComment on above:Performed By: #### DAO, [id number], [id number], PTH, UA, URMACRERAT, PROCRERAT, RENAL, MG, URIC, FE and TIBC #### [facility] [address] [place] [id number] USACreatinine, Urine (Random)24.00 mg/dLNoCarteret Health Care Physician GroupComment on above:Result Comment: No reference range established Performed By: #### DAO, [id number], [id number], PTH, UA, URMACRERAT, PROCRERAT, RENAL, MG, URIC, FE and TIBC #### [facility] Ctr [address] [place] [address] USAMicroalbumin/Creatinine RatioNot performedNormal0.0-30.0 [facility] Physician GroupComment on above:Performed By: #### DAO, [id number], [id number], PTH, UA, URMACRERAT, PROCRERAT, RENAL, MG, URIC, FE and TIBC #### [facility] [address] [place] [address] USAMicroalbumin [Mass/volume] in UrineOrdered By: Barbara Franklin on 66-12-5053Zwkaufk DL <= 20 mg/L (U) [Mass/Vol]Microalbumin [Mass/volume] in Urine0.0-1.8[facility] Medical CenterNitrite Test strip Ql (U)Ordered By: Barbara Franklin on 48-82-2975Lpstrun Ql (U)Nitrite [Presence] in Urine by Test stripNegativeKettering Health Behavioral Medical CenterNo Panel InformationOrdered By: Barbara Franklin on 04-57-9266Xcwyqxkbg GFR (CKD-EPI)39.290 mL/MinKettering Health Behavioral Medical CenterPharmacy Creatinine Clearance (ChemN/A [facility] Medical CenterParathyrin.intact [Mass/volume] in Serum or PlasmaOrdered By: Barbara Franklin on 47-33-5337Quzqmiggxv.intact [Mass/Vol] Parathyrin.intact [Mass/volume] in Serum or Wzbhru27-75PjjythttcKettering Health Behavioral Medical CenterParathyroid Hormone Intacton 62-96-4665Cphghwqhvoc Hormone Intact 49.6 pg/yWMvgmkn99-38Trq [facility] Physician [facility] HospitalComment on above:Result Comment: PERFORMED BY: [facility] [address] [place] [address] PATHOLOGIST RN CHILD PATRICA FLORENCE M.D.Performed By: #### DAO, [id number], [id number], PTH, UA, URMACRERAT, PROCRERAT, RENAL, MG, URIC, FE and TIBC ####[facility] [address] [place] [address] USAPhosphate [Mass/volume] in Serum or PlasmaOrdered By: Barbara Franklin on 30-66-0291Srczrlsjv [Mass/Vol] Phosphate [Mass/volume] in Serum or Plasma2.5-4.5FAvita Health System Galion HospitalPotassium [Moles/volume] in Serum or PlasmaOrdered By: Barbara Franklin on 42-84-8653Aenozhrkr [Moles/Vol]Potassium [Moles/volume] in Serum or PlasmaHigh 3.5-5.1FAvita Health System Galion HospitalProtein Creat Ratio Ur Randomon 71-28-7747Frxpkyw, Urine (Random)<0Frynnm6-9Dfv [facility] Physician [facility] HospitalComment on above:Performed By: #### DAO, [id number], [id number], PTH, UA, URMACRERAT, PROCRERAT, RENAL, MG, URIC, FE and TIBC #### [facility] [address] [place] [address] USAUrine Protein/Creatinine RatioNot performedNormal0-200The [facility] Physician GroupComment on above:Result Comment: PERFORMED BY: [place] [address] PATHOLOGIST RN CHILD PATRICA FLORENCE M.D.Performed By: #### DAO, [id number], [id number], PTH, UA, URMACRERAT, PROCRERAT, RENAL, MG, URIC, FE and TIBC #### [place] [id number] USAProtein Test strip (U) [Mass/Vol]Ordered By: Barbara Franklin on 85-92-9114Vxjemzt (U) [Mass/Vol]Protein [Mass/volume] in Urine by Test strip NegativeKettering Health Behavioral Medical CenterProtein [Mass/volume] in UrineOrdered By: Barbara Franklin on 56-03-5368Voafbcd (U) [Mass/Vol]Protein [Mass/volume] in Urine0-9[facility] Medical CenterRenal Function Panelon 05-28-2024 Albumin [Mass/Vol]4.5 g/dLNormal3.5-5.7The [facility] Physician GroupComment on above:Performed By: #### DAO, [id number], [id number], PTH, UA, URMACRERAT, PROCRERAT, RENAL, MG, URIC, FE and TIBC #### [place] [id number] USAAnion gap [Moles/Vol]11.6 mmol/LNormal6.0-15.0The [facility] Physician GroupComment on above:Performed By: #### DAO, [id number], [id number], PTH, UA, URMACRERAT, PROCRERAT, RENAL, MG, URIC, FE and TIBC #### [place] [address] USACalcium [Mass/Vol]9.9 mg/dLNormal8.6-10.3The [facility] Physician GroupComment on above:Performed By: #### DAO, [id number], [id number], PTH, UA, URMACRERAT, PROCRERAT, RENAL, MG, URIC, FE and TIBC #### [facility] [address] [place] [address] USAChloride [Moles/Vol]99 mmol/UXgwthn21-929Cyc [facility] Physician GroupComment on above:Performed By: #### DAO, [id number], [id number], PTH, UA, URMACRERAT, PROCRERAT, RENAL, MG, URIC, FE and TIBC #### [facility] [address] [place] [address] USACO2 [Moles/Vol]23.6 mmol/MExfhpe58.0-31.0The [facility] Physician GroupComment on above:Performed By: #### DAO, [id number], [id number], PTH, UA, URMACRERAT, PROCRERAT, RENAL, MG, URIC, FE and TIBC #### [place] [address] USACreatinine [Mass/Vol]1.45 mg/dLHigh0.60-1.20The [facility] Physician GroupComment on above:Performed By: #### DAO, [id number], [id number], PTH, UA, URMACRERAT, PROCRERAT, RENAL, MG, URIC, FE and TIBC #### [place] [address] USAEstimated GFR39.290 mL/MinNormalThe [facility] Physician Ocean Springs HospitalComment on above:Performed By: #### DAO, [id number], [id number], PTH, UA, URMACRERAT, PROCRERAT, RENAL, MG, URIC, FE and TIBC #### [place] [address] USAGlucose [Mass/Vol]163 mg/aRBnph94-353Mmh [facility] Physician GroupComment on above:Result Comment: Random Glucose Reference Range is dependent on time and content of last meal. Glucose of more than 200 mg/dL in a nonstressed, ambulatory subject supports the diagnosis of Diabetes Mellitus. ADA recommended reference rangePerformed By: #### DAO, [id number], [id number], PTH, UA, URMACRERAT, PROCRERAT, RENAL, MG, URIC, FE and TIBC #### [facility] [address] [place] [address] USAPhosphate [Mass/Vol]4.0 mg/dLNormal2.5-4.5The [facility] Physician GroupComment on above:Performed By: #### DAO, [id number], [id number], PTH, UA, URMACRERAT, PROCRERAT, RENAL, MG, URIC, FE and TIBC #### [facility] [address] [place] [address] USAPotassium [Moles/Vol]5.2 mmol/LHigh3.5-5.1The [facility] Physician GroupComment on above:Performed By: #### DAO, [id number], [id number], PTH, UA, URMACRERAT, PROCRERAT, RENAL, MG, URIC, FE and TIBC #### [facility] [address] [place] [address] USASodium [Moles/Vol]129 mmol/ZJzk854-269Xga [facility] Physician GroupComment on above:Performed By: #### DAO, [id number], [id number], PTH, UA, URMACRERAT, PROCRERAT, RENAL, MG, URIC, FE and TIBC #### [facility] [address] [place] [address] USAUrea nitrogen [Mass/Vol]27 mg/dLHigh7-25The [facility] Physician GroupComment on above:Performed By: #### DAO, [id number], [id number], PTH, UA, URMACRERAT, PROCRERAT, RENAL, MG, URIC, FE and TIBC #### [facility] [address] [place] [address] USASerum or plasma anion gap determinationOrdered By: Barbara Franklin on 54-78-7901Aafeh gap [Moles/Vol]Serum or plasma anion gap determination6.0-15.0[facility] Memorial Hospitalerum or plasma iron binding capacity measurement (mass/volume)Ordered By: Barbara Franklin on 05-28-2024 Iron binding capacity [Mass/Vol]Iron binding capacity [Mass/volume] in Serum or Aulwff161-169CbnccbrdcKettering Memorial Hospitalerum or plasma iron saturation measurement (mass fraction)Ordered By: Barbara Franklin on 92-92-0110Igyd saturation [Mass fraction]Iron saturation [Mass Fraction] in Serum or Fiazau69-62EixjeeaacKettering Memorial Hospitalodium [Moles/volume] in Serum or PlasmaOrdered By: Barbara Franklin on 12-11-7229Blkpvr [Moles/Vol]Sodium [Moles/volume] in Serum or Plasma Kuz581-972CuvjrqniwKettering Memorial Hospitalpecific gravity Test strip (U) [Rel density]Ordered By: Barbara Franklin on 03-69-7829Tvfpwyot gravity (U) [Rel density] Specific gravity of Urine by Test strip1.001-1.030[facility] Medical CenterTransferrin [Mass/volume] in Serum or PlasmaOrdered By: Barbara Franklin on 69-19-5361Wteenppjrpd [Mass/Vol]Transferrin [Mass/volume] in Serum or Plasma 203-362[facility] Medical CenterUS renal BIon 83-51-7729[place] [address] Ultrasound Report Signed Patient: Leslee Nevarez MR#: [id number] : 1955 Acct:[id number] Age/Sex: 68 / F ADM Date: 05/28/24 Loc: Room: Type: [facility] Attending Dr: Barbara Franklin MD Ordering Provider: [...] Thornton Jr., D.O.05/28/2024 2:52 PM Dictation Location: [place] [address] Tech: Starla Funk Transcribed By: CANDACE 05/28/241451 Dictated By: Carlos Alberto Thornton Jr, DO 05/28/24 145 Signed By: 05/28/24 145[facility] Physician GroupUrate [Mass/volume] in Serum or PlasmaOrdered By: Barbara Franklin on 78-60-4874Iulvc [Mass/Vol]Urate [Mass/volume] in Serum or Plasma2.3-6.6FAvita Health System Galion HospitalUrea nitrogen [Mass/volume] in Serum or PlasmaOrdered By: Barbara Franklin on 92-69-0574Dpty nitrogen [Mass/Vol]Urea nitrogen [Mass/volume] in Serum or PlasmaUnited Hospital Center7- [facility] Medical CenterUric Acidon 19-53-0203Lizfj [Mass/Vol]5.9 mg/dL Normal2.3-6.6The [facility] Physician GroupComment on above:Performed By: #### DAO, [id number], [id number], PTH, UA, URMACRERAT, PROCRERAT, RENAL, MG, URIC, FE and TIBC #### [facility] [address] [place] [address] USAUrinalysison 92-24-6792Qqdrqhvlyi (U)ClearNormalClearThe [facility] Physician GroupComment on above:Order Comment: Name Collection Type:: Clean-Voided MidstreamPerformed By: #### DAO, [id number], [id number], PTH, UA, URMACRERAT, PROCRERAT, RENAL, MG, URIC, FE and TIBC #### [facility] [address] [place] [address] USABilirubin,UrineNegativeNormalNegativeThe [facility] Physician GroupComment on above:Order Comment: Name Collection Type:: Clean- Voided MidstreamPerformed By: #### DAO, [id number], [id number], PTH, UA, URMACRERAT, PROCRERAT, RENAL, MG, URIC, FE and TIBC #### [place] [address] USAColor (U)ColorlessNormalYellowHca Florida Lake City Hospital Physician GroupComment on above:Order Comment: Name Collection Type:: Clean-Voided MidstreamPerformed By: #### DAO, [id number], [id number], PTH, UA, URMACRERAT, PROCRERAT, RENAL, MG, URIC, FE and TIBC #### [place] [address] USAGlucose Ql (U)>=[facility] Comment on above:Order Comment: Name Collection Type:: Clean-Voided Midstream Performed By: #### DAO, [id number], [id number], PTH, UA, URMACRERAT, PROCRERAT, RENAL, MG, URIC, FE and TIBC #### [place] [address] USAKetones Ql (U)NegativeNormalNegativeHca [facility] Hospital Physician GroupComment on above:Order Comment: Name Collection Type:: Clean- Voided MidstreamPerformed By: #### DAO, [id number], [id number], PTH, UA, URMACRERAT, PROCRERAT, RENAL, MG, URIC, FE and TIBC #### [place] [address] USALeukocyte esterase Test strip Ql (U)NegativeNormalNegative [facility] Physician GroupComment on above:Order Comment: Name Collection Type:: Clean-Voided MidstreamPerformed By: #### DAO, [id number], [id number], PTH, UA, URMACRERAT, PROCRERAT, RENAL, MG, URIC, FE and TIBC #### [place] [address] USANitrite,UrineNegativeNormalNegativeHca [facility] Hospital Physician GroupComment on above:Order Comment: Name Collection Type:: Clean-Voided MidstreamPerformed By: #### DAO, [id number], [id number], PTH, UA, URMACRERAT, PROCRERAT, RENAL, MG, URIC, FE and TIBC #### [place] [address] USAOccult Blood,UrineNegativeNormalNegativeThe [facility] Physician GroupComment on above:Order Comment: Name Collection Type:: Clean- Voided MidstreamResult Comment: PERFORMED BY: [place] [address] PATHOLOGIST RN CHILD PATRICA FLORENCE M.D.Performed By: #### DAO, [id number], [id number], PTH, UA, URMACRERAT, PROCRERAT, RENAL, MG, URIC, FE and TIBC #### [place] [address] USApH (U)5.0 [pH]Normal5.0-9.0The [facility]ician Group Comment on above:Order Comment: Name Collection Type:: Clean-Voided Midstream Performed By: #### DAO, [id number], [id number], PTH, UA, URMACRERAT, PROCRERAT, RENAL, MG, URIC, FE and TIBC #### [place] [address] USAProtein,UrineNegativeNormalNegativeThe [facility] Physician GroupComment on above:Order Comment: Name Collection Type:: Clean-Voided MidstreamPerformed By: #### DAO, [id number], [id number], PTH, UA, URMACRERAT, PROCRERAT, RENAL, MG, URIC, FE and TIBC #### [place] [address] USASpecificy [place],Urine1.884Enknwr8.001-1.030The [facility] Physician GroupComment on above:Order Comment: Name Collection Type:: Clean- Voided MidstreamPerformed By: #### DAO, [id number], [id number], PTH, UA, URMACRERAT, PROCRERAT, RENAL, MG, URIC, FE and TIBC #### [place] [address] USAUrobilinogen,UrineNormalNormalNormalThe [facility] Physician GroupComment on above:Order Comment: Name Collection Type:: Clean- Voided MidstreamPerformed By: #### DAO, [id number], [id number], PTH, UA, URMACRERAT, PROCRERAT, RENAL, MG, URIC, FE and TIBC #### [facility] [address] [place] [address] USAUrine microalbumin/creatinine mass ratioOrdered By: Barbara Franklin on 02-09-0509Xjxurhp/Creatinine DL <= 20 mg/L (U) [Mass ratio]Urine microalbumin/creatinine mass ratioKettering Health Behavioral Medical CenterComment on above:Test not performedUrine protein/creatinine ratioOrdered By: Barbara Franklin on 60-11-4304Yxydqav/Creatinine (U) [Ratio]Urine protein/creatinine ratio [facility] CenterComment on above:Test not performedUrobilinogen Test strip (U) [Mass/Vol]Ordered By: Barbara Franklin on 37-00-7785Slvbhhookdhv (U) [Mass/Vol]Urobilinogen [Mass/volume] in Urine by Test stripNoZanesville City HospitalVit. B12/Folate Profileon 42-53-7059Qjgcisgun (Vitamin B12) [Mass/Vol]1247 pg/jOZfai572-729Rjh [facility] Physician GroupComment on above:Performed By: #### DAO, [id number], [id number], PTH, UA, URMACRERAT, PROCRERAT, RENAL, MG, URIC, FE and TIBC ####[facility] [address] [place] [address] USAFolate>49.6Normal>5.9The [facility] Physician [facility] Springs HospitalComment on above:Result Comment: Folate reference range: >5.9 ng/ml The WHO technical consultation on folate and vitamin b12 deficiencies has determined that folate concentrations less than 4 ng/ml are considered deficient.Performed By: #### DAO, [id number], [id number], PTH, UA, URMACRERAT, PROCRERAT, RENAL, MG, URIC, FE and TIBC ####[facility] [address] [place] [address] [facility] CENTERVitamin B12 ser/plasOrdered By: Barbara Franklin on 92-38-2066Svjzkxube (Vitamin B12) [Mass/Vol]Vitamin B12 ser/sdroIjyj923-295YsbmpaxbwKettering Health Behavioral Medical Center Vitamin D 25 Hydroxy Totalon 25-49-8998Bdffcqc D 25 Hydroxy Total32.1 ng/mL Nupsdg19-559Uzz [facility] Physician GroupComment on above:Result Comment: VITAMIN D STATUS 25(OH)VITAMIN D RANGE (ng/mL) Deficient <20 Insufficient 20 to <30 Sufficient 30 to 100 Reference: De Whitmore, Lorraine LUGO, et al. Evaluation,treatment, and prevention of vitamin D deficiency; an Endocrine Society clinical practice guideline. JCEM. 2010; 96(7):1911-. PERFORMED BY: [facility] [address] [facility] [place] [address] PATHOLOGIST RN CHILD PATRICA FLORENCE M.D.Performed By: #### DAO, [id number], [id number], PTH, UA, URMACRERAT, PROCRERAT, RENAL, MG, URIC, FE and TIBC ####[facility] [address] [place] [address] [facility] MEDICAL CENTERVitamin D+Metabolites [Mass/volume] in Serum or PlasmaOrdered By: Barbara Franklin on 09-61-9451Ohtgtpc D+Metabolites [Mass/Vol]Vitamin D+Metabolites [Mass/volume] in Serum or Plasma 30-100[facility] Medical CenterComment on above:VITAMIN D STATUS 25(OH)VITAMIN D RANGE (ng/mL) Deficient <20 Insufficient 20 to <59Owljjnkfje47 to 100Reference: De Whitmore, Lorraine LUGO, et al. Evaluation,treatment, and prevention of vitamin D deficiency; an Endocrine Society clinical practice guideline. JCEM. 2010; 96(7):1911-30.pH Test strip (U)Ordered By: Barbara Franklin on 73-28-8210uE (U)pH of Urine by Test strip5.0-9.0 [facility] Medical CenterBasophils Auto (Bld) [#/Vol]on 05-22-2024 Basophils (Bld) [#/Vol]Automated basophil count0.0-0.1FAvita Health System Galion HospitalBasophils/100 WBC Auto (Bld)on 30-17-1859Ywvlnkysb/100 WBC (Bld)Automated basophil %0.2-2.0[facility] Medical CenterCholesterol in LDL Calc [Mass/Vol]on 30-39-2136Asolovcegip in LDL [Mass/Vol]Cholesterol in LDL [Mass/volume] in Serum or Plasma by calculationKettering Health Behavioral Medical Center Comment on above:<100 mg/dl WHUPBET784-413 mg/dl NEAR OR ABOVE GZBLSWW687-229 mg/dl BORDERLINE OOLK595-667 mg/dl HIGH>190 mg/dl VERY HIGHCholesterol in VLDL Calc [Mass/Vol]on 60-98-0149Xgezzwsiyzg in VLDL [Mass/Vol]Cholesterol in VLDL [Mass/volume] in Serum or Plasma by calculationKettering Health Behavioral Medical Center Eosinophils/100 WBC Auto (Bld)on 06-51-5441Itilldserqr/100 WBC (Bld)Automated eosinophil %0.9-7.0[facility] Medical CenterErythrocyte distribution width Auto (RBC) [Ratio]on 40-62-6469Sapjysftxid distribution width (RBC) [Ratio]Erythrocyte distribution width [Ratio] by Automated count11.0-15.0 [facility] Medical CenterEstimated glomerular filtration rate (GFR) non- Americanon 08-22-5621DHJ/1.73 sq M.predicted among non-blacks MDRD (S/P/Bld) [Vol rate/Area]Estimated glomerular filtration rate (GFR) non- AmericanLow>=60 mL/min/1.73m 2FAvita Health System Galion HospitalGlobulin Calc (S) [Mass/Vol]on 23-97-0689Eyyxchpf (S) [Mass/Vol]Serum globulin measurement by calculation (mass/volume)[facility] Medical CenterGlucose mean value [Mass/volume] in Blood Estimated from glycated hemoglobinon 65-27-0639Jqbchzr glucose Estimated from glycated hemoglobin (Bld) [Mass/Vol]Glucose mean value [Mass/volume] in Blood Estimated from glycated hemoglobinKettering Health Behavioral Medical CenterHematocrit Auto (Bld) [Volume fraction]on 32-04-8210Jjmghhmymi (Bld) [Volume fraction]Hematocrit [Volume Fraction] of Blood by Automated count 36.0-48.0[facility] Medical CenterHemoglobin A1c percentageon 05-22-2024 HbA1c (Bld) [Mass fraction]Hemoglobin A1c percentageHigh4.5-6.2FAvita Health System Galion HospitalComment on above:ADA RECOMMENDED LIMIT 4.0 - 6.0ADA THERAPEUTIC TARGET < 7.0ACTION SUGGESTED> 7.0Hemoglobin [Mass/volume] in Bloodon 62-91-1266Ollhyxevay (Bld) [Mass/Vol]Hemoglobin [Mass/volume] in Blood12.0-16.0 [facility] CenterLaboratory - Chemistry and Chemistry - challengeon 24-18-3341Fnvbklx [Mass/Vol]3.8 g/dL3.4-5.0[facility] Medical CenterALP [Catalytic activity/Vol]122 U/MKsqh02-487GrqbbnvscKettering Health Behavioral Medical CenterALT [Catalytic activity/Vol]20 U/X69-91CfeiwlisoKettering Health Behavioral Medical CenterAST [Catalytic activity/Vol]12 U/GXhz25-85CorcaelmsKettering Health Behavioral Medical CenterBilirubin [Mass/Vol]0.3 mg/dL0.2-1.0[facility] Calcium [Mass/Vol]9.4 mg/dL8.5-10.1FAvita Health System Galion HospitalChloride [Moles/Vol]101 mmol/E74-745QrueaojhbKettering Health Behavioral Medical CenterCholesterol [Mass/Vol]250 mg/dLHigh<=200[facility] Medical CenterCholesterol in HDL [Mass/Vol]52 mg/oY04-53StqjawyzvKettering Health Behavioral Medical CenterComment on above:> or =60 mg/dl - LOW CARDIOVASCULAR RISK<40 mg/dl - HIGH CARDIOVASCULAR RISKCO2 [Moles/Vol]28.6 mmol/L21.0-32.0[facility] Medical CenterCobalamin (Vitamin B12) [Mass/Vol]1266 pg/cJLyeqfmif263-3052GdzzvgtefKettering Health Behavioral Medical CenterComment on above:Performed at: [address] [id number] Director: Ced Baum PhD, Phone: [phone] Creatinine [Mass/Vol]1.54 mg/dLHigh0.55-1.02[facility] Free T4 [Mass/Vol]1.08 ng/dL0.76-1.46[facility] Medical CenterGFR/1.73 sq M.predicted MDRD (S/P/Bld) [Vol rate/Area]41 mL/min/{1.73_m2}Low>=60 mL/min/1.73m 2FAvita Health System Galion HospitalGlucose [Mass/Vol]195 mg/dLHigh 74-106[facility] Medical CenterPotassium [Moles/Vol]4.7 mmol/L3.5-5.1 [facility] CenterProtein [Mass/Vol]7.7 g/dL6.4-8.2FProMedica Flower Hospitalodium [Moles/Vol]138 mmol/H118-313RsfrlddzyKettering Health Behavioral Medical CenterTriglyceride [Mass/Vol]225 mg/dLHigh<=150[facility] Medical CenterTSH Qn4.503 m[IU]/LHigh0.358-3.740[facility] Medical CenterUrea nitrogen [Mass/Vol]30.0 mg/dLHigh7.0-18.0[facility] Medical CenterUrea nitrogen/Creatinine [Mass ratio]19.5 mg/mgKettering Health Behavioral Medical CenterLaboratory - Hematology and Cell countson 31-43-9690Ypiugggq granulocytes/100 WBC (Bld)0.4 %0.0-0.5FAvita Health System Galion Hospital Leukocytes [#/volume] corrected for nucleated erythrocytes in Blood by Automated counon 82-24-1183QTH corrected for nucl RBC Auto (Bld) [#/Vol]Leukocytes [#/volume] corrected for nucleated erythrocytes in Blood by Automated coun 4.0-11.0[facility] Medical CenterLymphocytes Auto (Bld) [#/Vol]on 28-57-2637Xvmooomlnon (Bld) [#/Vol]Lymphocytes [#/volume] in Blood by Automated count1.2-3.8[facility] Medical CenterLymphocytes/100 WBC Auto (Bld)on 72-83-0474Nfdqsbfjiib/100 WBC (Bld)Lymphocytes/100 leukocytes in Blood by Automated count20.5-60.0[facility] HospitalH Auto (RBC) [Entitic mass]on 09-09-6713VDE (RBC) [Entitic mass]MCH [Entitic mass] by Automated count 26.7-34.0[facility] Medical CenterMCHC Auto (RBC) [Mass/Vol]on 54-16-4080AOVJ (RBC) [Mass/Vol]MCHC [Mass/volume] by Automated count29.9-35.2 [facility] Medical CenterMCV Auto (RBC) [Entitic vol]on 43-68-4817ENT (RBC) [Entitic vol]MCV [Entitic volume] by Automated count81.0-99.0[facility] Medical CenterMonocytes Auto (Bld) [#/Vol]on 03-46-3004Ddlpceukv (Bld) [#/Vol]Automated blood monocyte count0.3-0.8[facility] Monocytes/100 WBC Auto (Bld)on 16-22-0816Xgvywjwgu/100 WBC (Bld)Automated monocyte %1.7-12.0[facility] Medical CenterNeutrophils Auto (Bld) [#/Vol]on 61-25-7313Ahszrqcfeav (Bld) [#/Vol]Neutrophils [#/volume] in Blood by Automated count1.4-6.5FAvita Health System Galion HospitalNeutrophils/100 WBC Auto (Bld)on 80-84-1256Mwncpumzfqn/100 WBC (Bld)Automated neutrophil %43.0-75.0 [facility] CenterNo Panel Informationon 08-11-5776Cluuaktpgde # (Auto)0.3 10 3/uL0.0-0.7FAvita Health System Galion HospitalFolate24.10 ng/mL 8.60-58.90[facility] Medical CenterFree Triiodothyronine2.53 pg/mL 2.18-3.98[facility] Medical CenterImmature Granulocyte # (Auto)0.04 10 3/uLHigh0.00-0.03[facility] Medical CenterPlatelet mean volume Auto (Bld) [Entitic vol]on 57-53-7447Ijruenqo mean volume (Bld) [Entitic vol]Platelet mean volume [Entitic volume] in Blood by Automated count9.5-13.5FAvita Health System Galion HospitalPlatelets Auto (Bld) [#/Vol]on 51-20-4946Fvvbesmun (Bld) [#/Vol]Platelets [#/volume] in Blood by Automated rejfc275-968NbfliyvacKettering Health Behavioral Medical CenterRBC Auto (Bld) [#/Vol]on 99-27-8178BEZ (Bld) [#/Vol]Erythrocytes [#/volume] in Blood by Automated count4.20-5.40[facility] Serum or plasma albumin/globulin mass ratioon 06-73-7704Rcmayjt/Globulin [Mass ratio]Serum or plasma albumin/globulin mass ratioKettering Memorial Hospitalerum or plasma anion gap determinationon 68-78-6186Lidua gap [Moles/Vol] Serum or plasma anion gap determinationKettering Memorial Hospitalerum or plasma total cholesterol/high density lipoprotein (HDL) cholesterol mass jose 05-72-7154Iwxxqkjlomj.total/Cholesterol in HDL [Mass ratio]Serum or plasma total cholesterol/high density lipoprotein (HDL) cholesterol mass ratKettering Health Behavioral Medical CenterComment on above:3.3 - 4.4 LOW RISK4.4 - 7.1 AVERAGE RISK7.1 - 11.0 MODERATE RISK>11.0 HIGH RISKNM heaven perf SPECT rest stron 01-95-3938DJ heaven perf SPECT rest [facility] [place] [address] Nuclear Medicine Report Signed Patient: Leslee Nevarez MR#: [id number] : 1955 Acct:[id number] Age/Sex: 68 / F ADM Date: 03/02/24 Loc: [place] Room: Type: [facility] Attending Dr: Eddie Urias MD Copies to: Eddie Urias MD, [facility] [facility] Ryne Johnson MD Ordering Provider: Eddie Urias MD, [facility] Date of Service: 03/02/24 NM/NM heaven [...] 03/02/242123 Dictated By: Ryne Johnson MD 03/02/24 155 Signed By: 03/03/24 0704[facility] Physician GroupSTR cardiac stress/cardiolon 66-89-0635XJF cardiac stress/cardiolBELLEVUE [place] [address] Cardiac Stress Test Signed Patient: Leslee Nevarez MR#: [id number] : 1955 Acct:[id number] Age/Sex: 68 / F ADM Date: 03/02/24 Loc: [place] Room: Type: [facility] Attending Dr: Eddie Urias MD Copies to: [...] stress test with nondiagnostic ST-T changes for exercise- induced ischemia. 2. No provoked chest pain or arrhythmia. 3. Appropriate hemodynamic response to exercise. 4. Good exercise tolerance. 5. Normal heart rate recovery phase. 6. Myocardial perfusion study will be dictated separately. Transcribed By: RACHEL 03/03/24 1251 Dictated By: Ryne Johnson MD 03/02/24 1431 Signed By: 03/03/24 1440NoCarteret Health Care Physician GroupGlobulin Calc (S) [Mass/Vol]on 25-54-1041Rjxqlcch (S) [Mass/Vol]Serum globulin measurement by calculation (mass/volume)[facility] CenterLaboratory - Chemistry and Chemistry - challengeon 44-07-7350Wmhpnlb [Mass/Vol]3.8 g/dL3.4-5.0[facility] CenterALP [Catalytic activity/Vol]136 U/ARnci65-869QusivpyofKettering Health Behavioral Medical CenterALT [Catalytic activity/Vol]25 U/I56-16MlpntxcyvKettering Health Behavioral Medical CenterAST [Catalytic activity/Vol]19 U/D31-64BuhoanqeuKettering Health Behavioral Medical CenterBilirubin [Mass/Vol]0.4 mg/dL0.2-1.0[facility] Bilirubin.direct [Mass/Vol]0.1 mg/dL0.0-0.2FAvita Health System Galion HospitalFree T4 [Mass/Vol]0.95 ng/dL0.76-1.46[facility] Medical CenterProtein [Mass/Vol]7.7 g/dL6.4-8.2FAvita Health System Galion HospitalTSH Qn10.261 m[IU]/L High0.358-3.740[facility] CenterNo Panel Informationon 63-28-5336Iswk Triiodothyronine2.09 pg/mLLow2.18-3.98[facility] Hospitalerum or plasma albumin/globulin mass ratioon 70-96-3966Pecxkhs/Globulin [Mass ratio]Serum or plasma albumin/globulin mass ratioKettering Health Behavioral Medical CenterPROF CHEM 8 (BAS METB)on 95-01-4025Lsrwe gap [Moles/Vol]14.4 mmol/LNormalThe [facility] HospitalComment on above:Performed By: #### BMP #### [facility] [address] [address] [address] Raf PearlCalcium [Mass/Vol]9.3 mg/dLNormal8.5-10.1[facility] Comment on above:Performed By: #### BMP #### [facility] [address] [address] [address] Raf PearlChloride [Moles/Vol]102 mmol/HCbsume50-801Qyi [facility] Comment on above:Performed By: #### BMP #### [facility] [address] [address] [address] Raf PearlCO2 [Moles/Vol]26.9 mmol/VBjmvlr03.0-32.0[facility] Comment on above:Performed By: #### BMP #### [facility] [address] [place] [address] Dr. Raf PearlCreatinine [Mass/Vol]1.32 mg/dLCritically high0.55-1.02The [facility] HospitalComment on above:Performed By: #### BMP #### [facility] [address] [place] [address] Dr. Raf YoungerGFR-AF RVLIUWYE15 mL/min/1.65j1Wnjtnhkuny low>=60The [facility] HospitalComment on above:Performed By: #### BMP #### [facility] [address] [place] [address] Dr. Raf YoungerGFR-NON AF NZEQPEAM62 mL/min/1.59g2Tkiyuxodmn low>=60The [facility] HospitalComment on above:Performed By: #### BMP #### [facility] [address] [address] [address] Raf PearlGlucose [Mass/Vol]151 mg/dLCritically baaz53-514Ods [facility] HospitalComment on above:Performed By: #### BMP #### [facility] [address] [address] [address] Raf PearlPotassium [Moles/Vol]4.3 mmol/LNormal3.5-5.1[facility] Comment on above:Performed By: #### BMP #### [facility] [address] [place] [address] Dr. Raf PearlSodium [Moles/Vol]139 mmol/XFezyvo086-013Jkv [facility] Comment on above:Performed By: #### BMP #### [facility] [address] [place] [address] Dr. Raf PearlUrea nitrogen [Mass/Vol]17.0 mg/dLNormal7.0-18.0[facility] Medical CenterComment on above:Performed By: #### BMP #### [facility] [address] [place] [address] Dr. Raf Anderson nitrogen/Creatinine [Mass ratio]12.9 mg/mgNormalThe [facility] HospitalComment on above:Performed By: #### BMP #### [facility] [address] [place] [address] Dr. Raf PearlPROF CHEM 8 (BAS METB)on 41-72-7202Cuhgm gap [Moles/Vol]9.7 mmol/LNormalPremier Health Atrium Medical CenterComment on above:Performed By: #### BMP #### [facility] [address] [place] [address] Dr. Raf PearlCalcium [Mass/Vol]9.1 mg/dLNormal8.5-10.1[facility] Comment on above:Performed By: #### BMP #### [facility] [address] [place] [address] Dr. Raf PearlChloride [Moles/Vol]100 mmol/LRcdrtt39-487WiePremier Health Atrium Medical Center Comment on above:Performed By: #### BMP #### [facility] [address] [place] [address] Dr. Raf PearlCO2 [Moles/Vol]28.0 mmol/DAqonln57.0-32.0[facility] Comment on above:Performed By: #### BMP #### [facility] [address] [place] [address] Dr. Raf PearlCreatinine [Mass/Vol]1.18 mg/dLCritically high0.55-1.02The [facility] HospitalComment on above:Performed By: #### BMP #### [facility] [address] [address] [address] Raf YoungerGFR-AF VDQLGZWC90 mL/min/1.70p7Gwxlxpkzro low>=60The [facility] HospitalComment on above:Performed By: #### BMP #### [facility] [address] [address] [address] Raf YoungerGFR-NON AF OPLOTZWY79 mL/min/1.43r1Bxlybnkgim low>=60The [facility] HospitalComment on above:Performed By: #### BMP #### [facility] [address] [place] [address] Dr. Raf PearlGlucose [Mass/Vol]113 mg/dLCritically vsmt28-594Cxb [facility] HospitalComment on above:Performed By: #### BMP #### [facility] [address] [place] [address] Dr. Raf PearlPotassium [Moles/Vol]3.7 mmol/LNormal3.5-5.1[facility] Comment on above:Performed By: #### BMP #### [facility] [address] [place] [address] Dr. Raf Gonzalezdium [Moles/Vol]134 mmol/LCritically rgn773-913Mua [facility] HospitalComment on above:Performed By: #### BMP #### [facility] [address] [place] [address] Dr. Raf PearlUrea nitrogen [Mass/Vol]13.0 mg/dLNormal7.0-18.0The [facility] HospitalComment on above:Performed By: #### BMP #### [facility] [address] [place] [address] Dr. Raf Anderson nitrogen/Creatinine [Mass ratio]11.0 mg/mgNormalThe [facility] HospitalComment on above:Performed By: #### BMP #### [facility] [address] [place] [address] Dr. Raf Draper ([facility])on 10-99-4720Tjorgk>20.0Normal>3.0[facility] Medical CenterComment on above:Result Comment: A serum folate concentration of less than 3.1 ng/mL is considered to represent clinical deficiency.Performed By: #### FOLALC #### [facility] [address] [place] [address] Dr. Raf PearlCBC AUTO DIFFon 79-55-2337LKSS #0.1 103/ulNormal0.0-0.1The [facility] HospitalComment on above:Performed By: #### MALBR #### [facility] [address] [place] [address] Dr. Raf PearlBasophils/100 WBC (Bld)1.3 %Normal0.2-2.0[facility] Comment on above:Performed By: #### MALBR #### [facility] [address] [place] [address] Dr. Raf Sidhu #0.4 103/ulNormal0.0-0.7The [facility] HospitalComment on above: Performed By: #### MALBR #### [facility] [address] [place] [address] Dr. Raf Youngerosinophils/100 WBC (Bld)4.5 %Normal0.9-7.0[facility] Comment on above:Performed By: #### MALBR #### [facility] [address] [place] [address] Dr. Raf Youngerrythrocyte distribution width (RBC) [Ratio]13.2 %Jjyxrv08.0-15.0 [facility] Medical CenterComment on above:Performed By: #### MALBR #### [facility] [address] [place] [address] Dr. Raf PearlHematocrit (Bld) [Volume fraction]33.8 %Critically low36.0-48.0 [facility] Medical CenterComment on above:Performed By: #### MALBR #### [facility] [address] [place] [address] Dr. Yilan ChangHemoglobin (Bld) [Mass/Vol]11.5 g/dLCritically low12.0-16.0The [facility] HospitalComment on above:Performed By: #### MALBR #### [facility] [address] [place] [address] Dr. Raf Julio #0.02 10e3/ulNormal0.00-0.03The [facility] HospitalComment on above:Performed By: #### MALBR #### [facility] [address] [place] [address] Dr. Raf Julio %0.2 %Normal0.0-0.5The [facility] HospitalComment on above: Performed By: #### MALBR #### [facility] [address] [place] [address] Dr. Raf Guido #2.6 103/ulNormal1.2-3.8The [facility] HospitalComment on above:Performed By: #### KORINBR #### [facility] [address] [place] [address] Dr. Raf Jameshocytes/100 WBC (Bld)31.6 %Jlsagw70.5-60.0The [facility] HospitalComment on above:Performed By: #### LUIS F #### [facility] [address] [place] [address] Dr. Raf CorderoUAL DIFF REQNONormalThe [facility] HospitalComment on above: Performed By: #### KORINBR #### [facility] [address] [place] [address] Dr. Raf Gonzalez (RBC) [Entitic mass]31.1 xpBsdoqw71.7-34.0The [facility] HospitalComment on above:Performed By: #### MALBR #### [facility] [address] [place] [address] Dr. Raf Singh (RBC) [Mass/Vol]34.0 g/rGWzdcmm88.9-35.2The [facility] HospitalComment on above:Performed By: #### MALBR #### [facility] [address] [place] [address] Dr. Raf Perez (RBC) [Entitic vol]91.4 rPCgkocu59.0-99.0The [facility] Centerment on above:Performed By: #### MALBR #### [facility] [address] [place] [address] Dr. Raf Desouza #0.6 103/ulNormal0.3-0.8The [facility] HospitalComment on above:Performed By: #### MALBR #### [facility] [address] [place] [address] Dr. Raf Sanchezocytes/100 WBC (Bld)7.2 %Normal1.7-12.0[facility] Comment on above:Performed By: #### MALBR #### [facility] [address] [place] [address] Dr. Raf Aguirre #4.6 103/ulNormal1.4-6.5The [facility] HospitalComment on above:Performed By: #### MALBR #### [facility] [address] [place] [address] Dr. Raf Guajardoutrophils/100 WBC (Bld)55.2 %Nytymv16.0-75.0The [facility] HospitalComment on above:Performed By: #### MALBR #### [facility] [address] [place] [address] Dr. Raf Ibanezlet mean volume (Bld) [Entitic vol]10.0 fLNormal9.5-13.5The [facility] Centerment on above:Performed By: #### MALBR #### [facility] [address] [place] [address] Dr. Raf PearlPLT352 103/oiSnzqzj395-235Mvg [facility] HospitalComment on above: Performed By: #### MALBR #### [facility] [address] [place] [address] Dr. Raf PearlRBC3.70 106/ulCritically low4.20-5.40The [facility] Centerment on above:Performed By: #### MALBR #### [facility] [address] [address] [address] Raf PearlWBC8.2 103/ulNormal4.0-11.0The [facility] HospitalComment on above: Performed By: #### MALBR #### [facility] [address] [address] [address] Raf PearlCULTURE URINEon 45-89-5342IOQECSA URINECulture Observations: NO GROWTH.NormalThe [facility] HospitalComment on above:Performed By: #### BMP #### [facility] [address] [place] [address] Dr. Raf PearlGLYCOHEMOGLOBIN A1Con 13-39-2394VIB RECOMMENDATIONSEE BELOWAvita Health System Bucyrus HospitalComchildren's hospital of [place] on above:Result Comment: ADA RECOMMENDED LIMIT 4.0 - 6.0 ADA THERAPEUTIC TARGET < 7.0 ACTION SUGGESTED > 7.0Performed By: #### BMP #### [facility] [address] [place] [address] Dr. Raf PearlGlucose [Mass/Vol]140 mg/dLNoMartin Memorial HospitalComment on above:Performed By: #### BMP #### [facility] [address] [place] [address] Dr. Raf PearlHbA1c (Bld) [Mass fraction]6.5 %Critically high4.5-6.2[facility] Medical CenterComment on above:Performed By: #### BMP #### [facility] [address] [place] [address] Dr. Raf PearlLIPID PROFILEon 68-58-2986HYOJ-HDL RATIO NORMSEE [facility] CenterComchildren[facility] on above:Result Comment: 3.3 - 4.4 LOW RISK 4.4 - 7.1 AVERAGE RISK 7.1 - 11.0 MODERATE RISK >11.0 HIGH RISKPerformed By: #### CMP, LIPID, TSH #### [facility] [address] [place] [address] Dr. Raf PearlCholesterol [Mass/Vol]166 mg/dLNormal<=200The [facility] Comment on above:Performed By: #### CMP, LIPID, TSH #### [facility] [address] [address] [address] Raf PearlCholesterol in HDL [Mass/Vol]57 mg/yUZltdmt43-25Ogg [facility] on above:Performed By: #### CMP, LIPID, TSH #### [facility] [address] [address] [address] Raf PearlCholesterol in LDL [Mass/Vol]91.4 mg/dLNoMartin Memorial HospitalComment on above:Performed By: #### CMP, LIPID, TSH #### [facility] [address] [address] [address] Raf Curielesterwalter.total/Cholesterol in HDL [Mass ratio]2.9 {ratio} NormalThe [facility] HospitalComment on above:Performed By: #### CMP, LIPID, TSH #### [facility] [address] [address] [address] Raf Aguirre NORMAL> or = 60 mg/dl - LOW CARDIOVASCULAR RISK <40 mg/dl - HIGH CARDIOVASCULAR RISKACMC Healthcare System GlenbeighComment on above:Performed By: #### CMP, LIPID, TSH #### [facility] [address] [place] [address] Dr. Raf Banks CALC NORMALSEE BELOWACMC Healthcare System GlenbeighComment on above:Result Comment: <100 mg/dl OPTIMAL 100 - 129 mg/dl NEAR OR ABOVE OPTIMAL 130 - 159 mg/dl BORDERLINE HIGH 160 - 189 mg/dl HIGH >190 mg/dl VERY HIGH Performed By: #### CMP, LIPID, TSH #### [facility] [address] [place] [address] Dr. Raf PearlTriglyceride [Mass/Vol]88 mg/dLNormal<=150The [facility] Comment on above:Performed By: #### CMP, LIPID, TSH #### [facility] [address] [place] [address] Dr. Raf JuddLDL CALC17.6 mg/dLNoMartin Memorial HospitalComment on above: Performed By: #### CMP, LIPID, TSH #### [facility] [address] [place] [address] Dr. Raf Longo, RAND URon 99-70-8611wZSU<1.3Normal<=30.0The [facility] HospitalComment on above:Performed By: #### MALBR #### [facility] [address] [place] [address] Dr. Raf FosterF 14(COMP METB)on 39-54-7672Vgdaowo [Mass/Vol]3.6 g/dLNormal 3.4-5.0The [facility] HospitalComment on above:Performed By: #### CMP, LIPID, TSH #### [facility] [address] [place] [address] Dr. Raf PearlAlbumin/Globulin [Mass ratio]1.0 {ratio}NormalThe [facility] HospitalComment on above:Performed By: #### CMP, LIPID, TSH #### [facility] [address] [place] [address] Dr. Raf Crouch [Catalytic activity/Vol]70 U/IWjgila57-576Icx [facility] HospitalComment on above:Performed By: #### CMP, LIPID, TSH #### [facility] [address] [place] [address] Dr. Raf Adan [Catalytic activity/Vol]22 U/BWodlwh18-83Tcn [facility] HospitalComment on above:Performed By: #### CMP, LIPID, TSH #### [facility] [address] [place] [address] Dr. Raf Hung gap [Moles/Vol]11.8 mmol/LNormalThe [facility] on above:Performed By: #### CMP, LIPID, TSH #### [facility] [address] [place] [address] Dr. Raf Dominguez [Catalytic activity/Vol]19 U/EYumkbe63-35Ktz [facility] HospitalComment on above:Performed By: #### CMP, LIPID, TSH #### [facility] [address] [place] [address] Dr. Raf PearlBilirubin [Mass/Vol]0.3 mg/dLNormal0.2-1.0[facility] Comment on above:Performed By: #### CMP, LIPID, TSH #### [facility] [address] [place] [address] Dr. Raf PearlCalcium [Mass/Vol]9.0 mg/dLNormal8.5-10.1The [facility] Comment on above:Performed By: #### CMP, LIPID, TSH #### [facility] [address] [address] [address] Raf PearlChloride [Moles/Vol]104 mmol/CZdfoog40-106Qfs [facility] Comment on above:Performed By: #### CMP, LIPID, TSH #### [facility] [address] [place] [address] Dr. Raf PearlCO2 [Moles/Vol]28.6 mmol/YZjvavo54.0-32.0[facility] Comment on above:Performed By: #### CMP, LIPID, TSH #### [facility] [address] [place] [address] Dr. Raf PearlCreatinine [Mass/Vol]1.48 mg/dLCritically high0.55-1.02The [facility] HospitalComment on above:Performed By: #### CMP, LIPID, TSH #### [facility] [address] [place] [address] Dr. Raf YoungerGFR-AF HGROHVEP94 mL/min/1.54a4Aweglzfbki low>=60The [facility] HospitalComment on above:Performed By: #### CMP, LIPID, TSH #### [facility] [address] [place] [address] Dr. Raf YoungerGFR-NON AF FGMJDUBU73 mL/min/1.46e1Qwxwxkiahj low>=60The [facility] HospitalComment on above:Performed By: #### CMP, LIPID, TSH #### [facility] [address] [place] [address] Dr. Raf PearlGlobulin (S) [Mass/Vol]3.5 g/dLNormalThe [facility] HospitalComment on above:Performed By: #### CMP, LIPID, TSH #### [facility] [address] [address] [address] Raf PearlGlucose [Mass/Vol]102 mg/eYFcgyle88-261Tif [facility] Comment on above:Performed By: #### CMP, LIPID, TSH #### [facility] [address] [address] [address] Raf PearlPotassium [Moles/Vol]4.4 mmol/LNormal3.5-5.1The [facility] Comment on above:Performed By: #### CMP, LIPID, TSH #### [facility] [address] [address] [address] Raf PearlProtein [Mass/Vol]7.1 g/dLNormal6.4-8.2The [facility] Comment on above:Performed By: #### CMP, LIPID, TSH #### [facility] [address] [place] [address] Dr. Raf PearlSodium [Moles/Vol]140 mmol/QAbxilb952-211Blo [facility] Comment on above:Performed By: #### CMP, LIPID, TSH #### [facility] [address] [address] [address] Raf Anderson nitrogen [Mass/Vol]21.0 mg/dLCritically high7.0-18.0[facility] CenterComment on above:Performed By: #### CMP, LIPID, TSH #### [facility] [address] [address] [address] Raf Anderson nitrogen/Creatinine [Mass ratio]14.2 mg/mgNormalThe [facility] HospitalComment on above:Performed By: #### CMP, LIPID, TSH #### [facility] [address] [place] [address] Dr. Raf Orozco 82-94-0157JEE2.298 uIU/mLNormal0.358-3.740[facility] Medical CenterComment on above:Performed By: #### CMP, LIPID, TSH #### [facility] [address] [place] [address] Dr. Raf Kelly RANDOM W/MICROSCOPICon 12-56-1485FNBDGXDPHOVW SEENNormalNONE SEENPremier Health Atrium Medical CenterComchildren's hospital [facility] [place] on above:Performed By: #### BMP #### [facility] [address] [address] [address] Raf PearlBilirubin Ql (U)NegativeNormalNEGATIVEPremier Health Atrium Medical Center Comment on above:Performed By: #### BMP #### [facility] [address] [address] [address] Raf PearlCASTNONE SEENNormalNONE SEENPremier Health Atrium Medical CenterComment on above:Performed By: #### BMP #### [facility] [address] [address] [address] Raf PearlClarity (U)CLEARNormalCLEARPremier Health Atrium Medical CenterComchildren's hospital [facility] [place] on above: Performed By: #### BMP #### [facility] [address] [place] [address] Dr. Raf Bower (U)LT. YELLOWNormalYELLOWPremier Health Atrium Medical CenterComment on above:Performed By: #### BMP #### [facility] [address] [place] [address] Dr. Raf PearlCrystals LM Nom (Urine sed)NONE SEENNormalNONE SEENPremier Health Atrium Medical CenterComchildren's hospital of [place] on above:Performed By: #### BMP #### [facility] [address] [place] [address] Dr. Carbone ChangEpithelial cells LM Ql (Urine sed)NONE SEENNormalNONE SEEN /RARE [facility] CenterComchildren[facility] [place] on above:Performed By: #### BMP #### [facility] [address] [place] [address] Dr. Raf PearlGlucose Ql (U)NegativeNormalNEGATIVEPremier Health Atrium Medical CenterComchildren's hospital [facility] [place] on above:Performed By: #### BMP #### [facility] [address] [place] [address] Dr. Raf PearlHemoglobin Ql (U)NegativeNormalNEGTogus VA Medical Center Comment on above:Performed By: #### BMP #### [facility] [address] [place] [address] Dr. Raf Yu Ql (U)NegativeNormalNEGATIVEPremier Health Atrium Medical CenterComment on above:Performed By: #### BMP #### [facility] [address] [place] [address] Dr. Raf PearlLEUKOCYTESNegativeNormalNEGATIVEPremier Health Atrium Medical CenterComment on above:Performed By: #### BMP #### [facility] [address] [address] [address] Raf JuárezCOUSNONMichelle SEENNormalNONE SEENPremier Health Atrium Medical CenterComment on above:Performed By: #### BMP #### [facility] [address] [address] [address] Raf Hickman Ql (U)NegativeNormalNEGATIVEPremier Health Atrium Medical CenterComment on above:Performed By: #### BMP #### [facility] [address] [place] [address] Dr. Raf PearlpH (U)7.0 [pH]Normal5-9The [facility] HospitalComment on above: Performed By: #### BMP #### [facility] [address] [place] [address] Dr. Raf PearlBqqwkZBH5-5Ukueof3-4ZaqCleveland Clinic [facility] on above:Performed By: #### BMP #### [facility] [address] [place] [address] Dr. Raf PearlSPEC GRAVITY<=1.034Kpeccsad8.005-<=1.025The [facility] Comment on above:Performed By: #### BMP #### [facility] [address] [place] [address] Dr. Raf PearlUA PROTEINNegativeNormalNEGATIVE/ TRACEThe [facility] Comment on above:Performed By: #### BMP #### [facility] [address] [place] [address] Dr. Raf Heathbilino Qn (U)0.2 {[place]'U}/dLNormal0.2 - 1.0The [facility] HospitalComment on above:Performed By: #### BMP #### [facility] [address] [address] [address] Raf PearlWBCNONE SEENNormalNONE SEENPremier Health Atrium Medical CenterComment on above: Performed By: #### BMP #### [facility] [address] [place] [address] Dr. Raf PearlVITAMIN B12on 14-16-7418Semjmogcy (Vitamin B12) [Mass/Vol]600.0 pg/mXZhlhkp062.0-986.0The [facility] HospitalComment on above:Performed By: #### BMP #### [facility] [address] [place] [address] Dr. Raf PearlCovid-19 PCR (CVDTBH)on 43-28-5779SXNR-CoV-2 (COVID-19) RNA KHANH+probe Ql (Unsp spec)Not detectedNormalNOT DETECTEDThe [facility] Comment on above:Result Comment: When diagnostic testing is negative, the [...] for this test is supported by the [place] [employer] Service's declaration that circumstances exist to justify the emergency use of in vitro diagnostics for the detection and/or diagnosis of the virus that causes COVID-19. This EUA will remain in effect for the duration of the COVID-19 declaration justifying emergency of IVDs, unless it is terminated or revoked by the FDA (after which the test may no longer be used).Performed By: #### CVDTBH #### [facility] [address] [place] [address] Dr. Raf PearlINFLUENZA A AND B AGon 11-02-9075JQKJSIQGNOAPG BELOWNoMartin Memorial HospitalComment on above:Result Comment: Negative for Flu A protein angiten. Infection due to Flu A cannot be ruled out. FluA angiten in the sample may be below the detection limit of the test.Performed By: #### BMP #### [facility] [address] [place] [address] Dr. Raf Diaz BELOWACMC Healthcare System GlenbeighComment on above: Result Comment: Negative for Flu B protein antigen. Infection due to Flu B cannot be ruled out. FluB antigen in the sample may be below the detection limit of the test.Performed By: #### BMP #### [facility] [address] [place] [address] Dr. Raf Mcconnell AGNegativeNormalNEGATIVE SEE COMMENTThe [facility] HospitalComment on above:Performed By: #### BMP #### [facility] [address] [place] [address] Dr. Raf Majano AGNegativeNormalNEGATIVE SEE COMMENTThe Holzer HospitalComment on above:Performed By: #### BMP #### [facility] [address] [place] [address] Dr. Raf PearlXR CHEST 2 Von [id number] CHEST 2 VEXAM: XR CHEST 2 V HISTORY: COUGH for [...] Electronically authenticated by: BUDDY LEMOS Date: 2022-04-30 19:38[facility]ighPROF CHEM 8 (BAS METB)on [id number] gap [Moles/Vol]12.6 mmol/LNormalPremier Health Atrium Medical CenterComment on above:Performed By: #### BMP #### [facility] [address] [place] [address] Dr. Raf PearlCalcium [Mass/Vol]9.4 mg/dLNormal8.5-10.1[facility] Comment on above:Performed By: #### BMP #### [facility] [address] [address] [address] Raf PearlChloride [Moles/Vol]99 mmol/HEhjbcf26-494Ngv [facility] Comment on above:Performed By: #### BMP #### [facility] [address] [address] [address] Raf PearlCO2 [Moles/Vol]29.3 mmol/OUdqczr44.0-32.0The [facility] Comment on above:Performed By: #### BMP #### [facility] [address] [address] [address] Raf PearlCreatinine [Mass/Vol]1.15 mg/dLCritically high0.55-1.02The [facility] HospitalComment on above:Performed By: #### BMP #### [facility] [address] [address] [address] Carbone ChangEGFR-AF AFXRHCIM92 mL/min/1.93f5Uwtrsoogms low>=60The [facility] HospitalComment on above:Performed By: #### BMP #### [facility] [address] [address] [address] Raf YoungerGFR-NON AF TNFEMEQS09 mL/min/1.39c9Qgnfwscsxx low>=60The [facility] HospitalComment on above:Performed By: #### BMP #### [facility] [address] [address] [address] Raf PearlGlucose [Mass/Vol]146 mg/dLCritically iyzg45-748Mpc [facility] HospitalComment on above:Performed By: #### BMP #### [facility] [address] [address] [address] Raf PearlPotassium [Moles/Vol]3.9 mmol/LNormal3.5-5.1The [facility] Comment on above:Performed By: #### BMP #### [facility] [address] [address] [address] Raf PearlSodium [Moles/Vol]137 mmol/TBkmekj081-305Der [facility] Comment on above:Performed By: #### BMP #### [facility] [address] [address] [address] Raf Anderson nitrogen [Mass/Vol]10.0 mg/dLNormal7.0-18.0The [facility] HospitalComment on above:Performed By: #### BMP #### [facility] [address] [place] [address] Dr. Raf Anderson nitrogen/Creatinine [Mass ratio]8.7 mg/mgNormalThe [facility] HospitalComment on above:Performed By: #### BMP #### [facility] [address] [place] [address] Dr. Raf PriceC AUTO DIFFon 02-07-7286VYFQ #0.1 103/ulNormal0.0-0.1The [facility] HospitalComment on above:Performed By: #### BMP #### [facility] [address] [place] [address] Dr. Raf PearlBasophils/100 WBC (Bld)1.5 %Normal0.2-2.0The [facility] Comment on above:Performed By: #### BMP #### [facility] [address] [place] [address] Dr. Raf Sidhu #0.3 103/ulNormal0.0-0.7The [facility] HospitalComment on above: Performed By: #### BMP #### [facility] [address] [place] [address] Dr. Raf Youngerosinophils/100 WBC (Bld)5.3 %Normal0.9-7.0The [facility] Comment on above:Performed By: #### BMP #### [facility] [address] [place] [address] Dr. Raf Youngerrythrocyte distribution width (RBC) [Ratio]13.1 %Jhvbxe89.0-15.0 The [facility] HospitalComment on above:Performed By: #### BMP #### [facility] [address] [place] [address] Dr. Raf PearlHematocrit (Bld) [Volume fraction]36.4 %Vrkouk56.0-48.0The [facility] HospitalComment on above:Performed By: #### BMP #### [facility] [address] [address] [address] Raf PearlHemoglobin (Bld) [Mass/Vol]12.4 g/gHJfqgxi18.0-16.0The [facility] on above:Performed By: #### BMP #### [facility] [address] [address] [address] Raf Julio #0.02 10e3/ulNormal0.00-0.03The [facility] HospitalComchildren[facility] [place] on above:Performed By: #### BMP #### [facility] [address] [place] [address] Dr. Raf Julio %0.3 %Normal0.0-0.5The [facility] HospitalComchildren[facility] [place] on above: Performed By: #### BMP #### [facility] [address] [place] [address] Dr. Raf Guido #2.0 103/ulNormal1.2-3.8The [facility] HospitalComchildren[facility] [place] on above:Performed By: #### BMP #### [facility] [address] [place] [address] Dr. Raf Jameshocytes/100 WBC (Bld)31.6 %Lqqffc91.5-60.0The [facility] on above:Performed By: #### BMP #### [facility] [address] [place] [address] Dr. Raf CorderoUAL DIFF REQNONormalThe [facility] HospitalComment on above: Performed By: #### BMP #### [facility] [address] [place] [address] Dr. Raf Singh (RBC) [Entitic mass]31.4 pqJgnmyr72.7-34.0The [facility] on above:Performed By: #### BMP #### [facility] [address] [place] [address] Dr. Raf Singh (RBC) [Mass/Vol]34.1 g/oKBpfhms88.9-35.2The [facility] HospitalComment on above:Performed By: #### BMP #### [facility] [address] [address] [address] Raf Perez (RBC) [Entitic vol]92.2 eOSaapmp58.0-99.0The [facility] HospitalComment on above:Performed By: #### BMP #### [facility] [address] [place] [address] Dr. Raf Desouza #0.4 103/ulNormal0.3-0.8The [facility] HospitalComment on above:Performed By: #### BMP #### [facility] [address] [place] [address] Dr. Raf Sanchezocytes/100 WBC (Bld)6.8 %Normal1.7-12.0The [facility] on above:Performed By: #### BMP #### [facility] [address] [place] [address] Dr. Raf Aguirre #3.4 103/ulNormal1.4-6.5The [facility] HospitalComment on above:Performed By: #### BMP #### [facility] [address] [place] [address] Dr. Raf Guajardoutrophils/100 WBC (Bld)54.5 %Hrwrnh57.0-75.0The [facility] HospitalComment on above:Performed By: #### BMP #### [facility] [address] [place] [address] Dr. Raf Ibanezlet mean volume (Bld) [Entitic vol]9.7 fLNormal9.5-13.5The [facility] HospitalComment on above:Performed By: #### BMP #### [facility] [address] [place] [address] Dr. Raf PearlPLT384 103/neXfgcpa051-258Dgj [facility] HospitalComment on above: Performed By: #### BMP #### [facility] [address] [place] [address] Dr. Raf PearlRBC3.95 106/ulCritically low4.20-5.40The [facility] HospitalComment on above:Performed By: #### BMP #### [facility] [address] [address] [address] Raf PeralWBC6.2 103/ulNormal4.0-11.0The [facility] HospitalComchildren[facility] on above: Performed By: #### BMP #### [facility] [address] [address] [address] Raf PearlGLYCOHEMOGLOBIN A1Con 40-26-5267UCW RECOMMENDATIONSEE BELOWNoHocking Valley Community HospitalComment on above:Result Comment: ADA RECOMMENDED LIMIT 4.0 - 6.0 ADA THERAPEUTIC TARGET < 7.0 ACTION SUGGESTED > 7.0Performed By: #### A1C #### [facility] [address] [place] [address] Dr. Raf PearlGlucose [Mass/Vol]137 mg/dLNoMartin Memorial HospitalComment on above:Performed By: #### A1C #### [facility] [address] [place] [address] Dr. Raf PearlHbA1c (Bld) [Mass fraction]6.4 %Critically high4.5-6.2The [facility] HospitalComment on above:Performed By: #### A1C #### [facility] [address] [place] [address] Dr. Raf PearlLIPID PROFILEon 68-94-9334ALHO-HDL RATIO NORMSEE [facility] Health CenterComment on above:Result Comment: 3.3 - 4.4 LOW RISK 4.4 - 7.1 AVERAGE RISK 7.1 - 11.0 MODERATE RISK >11.0 HIGH RISKPerformed By: #### BMP #### [facility] [address] [address] [address] Raf PearlCholesterol [Mass/Vol]165 mg/dLNormal<=200[facility] Comment on above:Performed By: #### BMP #### [facility] [address] [place] [address] Dr. Raf PearlCholesterol in HDL [Mass/Vol]66 mg/dLCritically vzdd95-67Jrt [facility] HospitalComment on above:Performed By: #### BMP #### [facility] [address] [address] [address] Raf PearlCholesterol in LDL [Mass/Vol]87.8 mg/dLACMC Healthcare System GlenbeighComment on above:Performed By: #### BMP #### [facility] [address] [place] [address] Dr. Raf PearlCholesterol.total/Cholesterol in HDL [Mass ratio]2.5 {ratio} NormalThe [facility] HospitalComment on above:Performed By: #### BMP #### [facility] [address] [place] [address] Dr. Raf Aguirre NORMAL> or = 60 mg/dl - LOW CARDIOVASCULAR RISK <40 mg/dl - HIGH CARDIOVASCULAR RISKACMC Healthcare System GlenbeighComchildren's hospital of [place] on above:Performed By: #### BMP #### [facility] [address] [place] [address] Dr. Raf Banks CALC NORMALSEE BELOWACMC Healthcare System GlenbeighComment on above:Result Comment: <100 mg/dl OPTIMAL 100 - 129 mg/dl NEAR OR ABOVE OPTIMAL 130 - 159 mg/dl BORDERLINE HIGH 160 - 189 mg/dl HIGH >190 mg/dl VERY HIGH Performed By: #### BMP #### [facility] [address] [place] [address] Dr. Raf PearlTriglyceride [Mass/Vol]56 mg/dLNormal<=150[facility] Comment on above:Performed By: #### BMP #### [facility] [address] [place] [address] Dr. Raf JuddLDL CALC11.2 mg/dLNoMartin Memorial HospitalComment on above: Performed By: #### BMP #### [facility] [address] [place] [address] Dr. Raf PearlPROFabiola 14(COMP METB)on 83-86-9991Hfromvj [Mass/Vol]4.0 g/dLNormal 3.4-5.0Prem[facility] Atrium Medical CenterComment on above:Performed By: #### BMP #### [facility] [address] [address] [address] Raf PearlAlbumin/Globulin [Mass ratio]1.1 {ratio}NormalThe [facility] HospitalComment on above:Performed By: #### BMP #### [facility] [address] [address] [address] Raf WildeP [Catalytic activity/Vol]81 U/ZNomlul56-114Twy [facility] HospitalComment on above:Performed By: #### BMP #### [facility] [address] [place] [address] Dr. Raf WildeT [Catalytic activity/Vol]26 U/ZNzvgtk74-76Qlc [facility] HospitalComment on above:Performed By: #### BMP #### [facility] [address] [place] [address] Dr. Raf Castroon gap [Moles/Vol]12.1 mmol/LNormalThe [facility] Comment on above:Performed By: #### BMP #### [facility] [address] [place] [address] Dr. Raf PearlAST [Catalytic activity/Vol]16 U/EDnqnsa84-75Qxv [facility] HospitalComment on above:Performed By: #### BMP #### [facility] [address] [place] [address] Dr. Raf PearlBilirubin [Mass/Vol]0.3 mg/dLNormal0.2-1.0The [facility] Comment on above:Performed By: #### BMP #### [facility] [address] [place] [address] Dr. Raf PearlCalcium [Mass/Vol]9.2 mg/dLNormal8.5-10.1The [facility] Comment on above:Performed By: #### BMP #### [facility] [address] [place] [address] Dr. Raf PearlChloride [Moles/Vol]103 mmol/ERrnqqi54-343Vuz [facility] Comment on above:Performed By: #### BMP #### [facility] [address] [place] [address] Dr. Raf PearlCO2 [Moles/Vol]26.9 mmol/TUsdfvd92.0-32.0The [facility] Comment on above:Performed By: #### BMP #### [facility] [address] [address] [address] Raf PearlCreatinine [Mass/Vol]1.17 mg/dLCritically high0.55-1.02The [facility] HospitalComment on above:Performed By: #### BMP #### [facility] [address] [address] [address] Raf YoungerGFR-AF CQRVECEE22 mL/min/1.42v5Shzuovnasf low>=60The [facility] HospitalComment on above:Performed By: #### BMP #### [facility] [address] [place] [address] Dr. Raf YoungerGFR-NON AF OYNWCMXM27 mL/min/1.42j7Ifsawwrwnl low>=60The [facility] HospitalComment on above:Performed By: #### BMP #### [facility] [address] [place] [address] Dr. Raf PearlGlobulin (S) [Mass/Vol]3.6 g/dLNormalThe [facility] HospitalComment on above:Performed By: #### BMP #### [facility] [address] [place] [address] Dr. Raf PearlGlucose [Mass/Vol]141 mg/dLCritically gzmn45-507Cna [facility] HospitalComment on above:Performed By: #### BMP #### [facility] [address] [address] [address] Raf PearlPotassium [Moles/Vol]4.0 mmol/LNormal3.5-5.1The [facility] Comment on above:Performed By: #### BMP #### [facility] [address] [address] [address] Raf PearlProtein [Mass/Vol]7.6 g/dLNormal6.4-8.2The [facility] Comment on above:Performed By: #### BMP #### [facility] [address] [place] [address] Dr. Raf Manzanoum [Moles/Vol]138 mmol/KGyywmd356-811Ggu [facility] Comment on above:Performed By: #### BMP #### [facility] [address] [address] [address] Raf PearlUrea nitrogen [Mass/Vol]19.0 mg/dLCritically high7.0-18.0The [facility] HospitalComment on above:Performed By: #### BMP #### [facility] [address] [address] [address] Raf Anderson nitrogen/Creatinine [Mass ratio]16.2 mg/mgNormalThe [facility] HospitalComment on above:Performed By: #### BMP #### [facility] [address] [place] [address] Dr. Raf Macdonald B12 AND FOLATEon 78-69-8628Acbgirprq (Vitamin B12) [Mass/Vol] 786.0 pg/bPNcvhon489.0-986.0The [facility] HospitalComment on above:Performed By: #### [id number] #### [facility] [address] [place] [address] Dr. Raf PearlFOLATE21.80 ng/mLNormal8.60-58.90The [facility] HospitalComment on above:Performed By: #### B12FOL #### [facility] [address] [place] [address] Dr. Raf PearlCERVICAL SPINE 2 OR 3 [facility] 46-17-4053PMUMVHBE SPINE 2 OR 3 [facility] Department of Radiology [address] [place] [id number] Patient Name: CRISELDA NEVAREZ : 1955 Sex: F Age: Race: White Pt. 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 I, Eddie Miles, have reviewed the images and report and concur with these findings. Electronically signed by:Eddie Miles. Transcribed by: [email or web address], User Resident: ANTHONY SUNG Electronically Signed by: EDDIE MILES @ 11/04/2018 04:42 PM I personally read this/these film(s) with this residentCherrington HospitalComment on above:Order Comment: , postop, eval hardware and alignment , Views (X-RAY, CERVICAL SPINE): AP, Lateral, Odontoid , postop, eval hardware and alignment , Views (X-RAY, CERVICAL SPINE): AP, Lateral, Odontoid , , , Ordering Provider - Jayesh [place] FLIGHT SECURITY SPECIALIST , POC GLUCOSE LAB on 19-47-9822Tvgxafj [Mass/Vol]208 mg/wFTkch37-212Wdl [facility] - TrumbullComment on above:Performed By: #### [id number], [id number] #### [facility] [address] [place] [address], USAGlucose [Mass/Vol]98 mg/oVHlhbnv92-605Wxw [facility] - TrumbullComment on above:Performed By: #### [id number], [id number] #### [facility] [address] [place] [address], USABASIC METABOLIC PANELon 93-20-2805Mcfufvb [Mass/Vol]7.7 mg/dLLow8.6-10.3The [facility] TrumbullComment on above:Order Comment: No: Do not add to previous drawPerformed By: #### [id number] #### [facility] [address] [place] [address], USAChloride [Moles/Vol]109 mmol/OOryv06-559Igj [facility] TrumbullComment on above:Order Comment: No: Do not add to previous drawPerformed By: #### [id number] #### [facility] [address] [place] [address], USACO2 [Moles/Vol]24 mmol/OQijtdx15-12Fnn [facility] TrumbullComment on above:Order Comment: No: Do not add to previous draw Performed By: #### [id number] #### [facility] [address] [place] [address], USACreatinine [Mass/Vol]0.89 mg/dLNormal0.60-1.20The [facility] TrumbullComment on above:Order Comment: No: Do not add to previous drawPerformed By: #### [id number] #### [facility] [address] [place] [address], USAGFR/1.73 sq M predicted among blacks MDRD (S/P/Bld) [Vol rate/Area]mL/min/{1.73_m2}Normal>60The [facility] Comment on above:Order Comment: No: Do not add to previous drawPerformed By: #### [id number] #### [facility] [address] [place] [address], USAGFR/1.73 sq M predicted among non-blacks MDRD (S/P/Bld) [Vol rate/Area]mL/min/{1.73_m2}Normal>60The [facility] Comment on above:Order Comment: No: Do not add to previous drawPerformed By: #### [id number] #### [facility] [address] [place] [address], USAGlucose [Mass/Vol]94 mg/gHWcakws14-727Pbf [facility] TrumbullComment on above:Order Comment: No: Do not add to previous drawPerformed By: #### [id number] #### [facility] [address] [place] [address], USAPotassium [Moles/Vol]3.3 mmol/LLow3.5-5.1The [facility] - TrumbullComment on above:Order Comment: No: Do not add to previous drawPerformed By: #### [id number] #### [facility] [address] [place] [address], USASodium [Moles/Vol]140 mmol/SLblmfp705-335Nmo [facility] TrumbullComment on above:Order Comment: No: Do not add to previous drawPerformed By: #### [id number] #### [facility] [address] [place] [address], USAUrea nitrogen [Mass/Vol]11 mg/dLNormal7-25The [facility] TrumbullComment on above:Order Comment: No: Do not add to previous drawPerformed By: #### [id number] #### [facility] [address] [id number], [facility]ICAL CENTERCBC W/DIFFon 71-28-5962VXY BASOPHILS0.0 10*3/uLNormal 0.0-0.2The [facility] TrumbullComment on above:Order Comment: No: Do not add to previous drawPerformed By: #### [id number] #### [facility] [address] [address], USAABS IMM GRANS0.1 10*3/uLNormal0.0-0.2The [facility] - TrumbullComment on above:Order Comment: No: Do not add to previous drawPerformed By: #### [id number] #### [facility] [address] [address], USAABS ABAHJUXYBAA04.5 10*3/uLHigh1.6-7.6The [facility] TrumbullComment on above:Order Comment: No: Do not add to previous drawPerformed By: #### [id number] #### [facility] [address] [place] [address], USABasophils/100 WBC (Bld)0.3 %Normal0.0-1.0The [facility] - TrumbullComment on above:Order Comment: No: Do not add to previous drawPerformed By: #### [id number] #### [facility] [address] [place] [address], USAEosinophils (Bld) [#/Vol]0.0 10*3/uLNormal0.0-0.5The [facility] TrumbullComment on above:Order Comment: No: Do not add to previous drawPerformed By: #### [id number] #### [facility] [address] [place] [address], USAEosinophils/100 WBC (Bld)0.0 %Normal0.0-6.0The [facility] - TrumbullComment on above:Order Comment: No: Do not add to previous drawPerformed By: #### [id number] #### [facility] [address] [facility] [place] [address], USAErythrocyte distribution width (RBC) [Ratio]13.0 %Normal 11.5-15.0The [facility] - TrumbullComment on above:Order Comment: No: Do not add to previous drawPerformed By: #### [id number] #### [facility] [address] [facility] [place] [address], USAHematocrit (Bld) [Volume fraction]31.7 %Low36.0-45.0The [facility] - TrumbullComment on above:Order Comment: No: Do not add to previous drawPerformed By: #### [id number] #### [facility] [address] [facility] [place] [address], USAHemoglobin (Bld) [Mass/Vol]10.3 g/dLLow12.0-15.0The [facility] TrumbullComment on above:Order Comment: No: Do not add to previous drawPerformed By: #### [id number] #### [facility] [address] [facility] [place] [address], USAIMMATURE GRANS0.5 %Normal0.0-1.0The [facility] TrumbullComment on above:Order Comment: No: Do not add to previous draw Performed By: #### [id number] #### [facility] [address] [facility] [place] [address], USALymphocytes (Bld) [#/Vol]1.9 10*3/uLNormal1.2-4.0The [facility] TrumbullComment on above:Order Comment: No: Do not add to previous drawPerformed By: #### [id number] #### [facility] [address] [place] [id number], USALymphocytes/100 WBC (Bld)11.9 %Low20.0-45.0The [facility] TrumbullComment on above:Order Comment: No: Do not add to previous drawPerformed By: #### [id number] #### [facility] [address] [place] [id number], [facility]H (RBC) [Entitic mass]31.7 uaWfaiue04.0-33.0The [facility] TrumbullComment on above:Order Comment: No: Do not add to previous drawPerformed By: #### [id number] #### [facility] [address] [place] [address], [facility] CENTERMCHC (RBC) [Mass/Vol]32.5 g/qWRivkji26.0-35.0The [facility] TrumbullComment on above:Order Comment: No: Do not add to previous drawPerformed By: #### [id number] #### [facility] [address] [place] [id number], [facility] CENTERMCV (RBC) [Entitic vol]97.5 sIScwsru05.0-98.0The [facility] TrumbullComment on above:Order Comment: No: Do not add to previous drawPerformed By: #### [id number] #### [facility] [address] [place] [id number], USAMonocytes (Bld) [#/Vol]1.2 10*3/uLHigh0.1-1.0The [facility] TrumbullComment on above:Order Comment: No: Do not add to previous drawPerformed By: #### [id number] #### [facility] [address] [place] [address], USAMONOS7.7 %Normal5.0-12.0The [facility] TrumbullComment on above:Order Comment: No: Do not add to previous drawPerformed By: #### [id number] #### [facility] [address] [place] [address], USANeutrophils/100 WBC (Bld)79.6 %High40.0-72.0The [facility] TrumbullComment on above:Order Comment: No: Do not add to previous drawPerformed By: #### [id number] #### [facility] [address] [place] [address], USANucleated RBC/100 WBC (Bld) [Ratio]0 %Normal0-0The [facility] TrumbullComment on above:Order Comment: No: Do not add to previous drawPerformed By: #### [id number] #### [facility] [address] [place] [address], USAPLAT NDT448 10*3/cVWvurep874-181Mji [facility] TrumbullComment on above:Order Comment: No: Do not add to previous draw Performed By: #### [id number] #### [facility] [address] [place] [address], USARBC (Bld) [#/Vol]3.25 10*6/uLLow3.80-5.00The [facility] TrumbullComment on above:Order Comment: No: Do not add to previous drawPerformed By: #### [id number] #### [facility] [address] [place] [address], USAWBC (Bld) [#/Vol]15.70 10*3/uLHigh4.00-10.60The [facility] TrumbullComment on above:Order Comment: No: Do not add to previous drawPerformed By: #### [id number] #### [facility] [address] [place] [address], USALIPID PROFILEon 96-97-4473Ohsztixcypm [Mass/Vol]128 mg/dL Ultdjz001-771Nkz [facility] TrumbullComment on above:Order Comment: No: Do not add to previous drawResult Comment: CHOLESTEROL REFERENCE RANGE: 20 YEARS AND OLDER CARDIOVASCULAR RISK Less than 200 mg/dl Low Risk 200 to 239 mg/dl Borderline Risk 240 mg/dl and greater High RiskPerformed By: #### [id number] #### [facility] [address] [place] [address], USACholesterol in HDL [Mass/Vol]49 mg/tKJkyeem80-48Qhi [facility] TrumbullComment on above:Order Comment: No: Do not add to previous drawResult Comment: Slight variation in normal range could be due to gender and/or age. HDL CHOLESTEROL REFERENCE RANGE: 20 years and older Cardiovascular Risk > or =60 mg/dL Desirable 40 TO 59 mg/dL Low Risk <40 mg/dL High RiskPerformed By: #### [id number] #### [facility] [address] [place] [address], USACholesterol in LDL [Mass/Vol]65 mg/dLNormal0-130The [facility] - TrumbullComment on above:Order Comment: No: Do not add to previous drawResult Comment: LDL IS A CALCULATION LDL IS ONLY VALID IF THE TRIG IS LESS THAN 400.Performed By: #### 64149 #### [facility] [address] [place] [address], USACholesterol.total/Cholesterol in HDL [Mass ratio]2.6 {ratio}Normal.0-4.5The [facility] TrumbullComment on above:Order Comment: No: Do not add to previous drawPerformed By: #### 31390 #### [facility] [address] [place] [address], USANON-HDL XPYBHTDYFZZ82 mg/dLNormalThe [facility] TrumbullComment on above:Order Comment: No: Do not add to previous draw Performed By: #### 31809 #### [facility] [address] [place] [address], USATriglyceride [Mass/Vol]69 mg/tJBzpedk73-358Cpd [facility] TrumbullComment on above:Order Comment: No: Do not add to previous drawResult Comment: TRIGLYCERIDE REFERENCE RANGE: 20 YEARS AND OLDER CARDIOVASCULAR RISK LESS THAN 150 mg/dl LOW RISK 150 TO 199 mg/dl BORDERLINE RISK 200 mg/dl AND GREATER HIGH RISKPerformed By: #### 33626 #### [facility] [address] [place] [address], USAVLDL CHOL14 mg/dLNormal0-40The [facility] TrumbullComment on above:Order Comment: No: Do not add to previous drawPerformed By: #### 60939 #### [facility] [address] [place] [address], USAPOC GLUCOSE LABon 85-60-4663Nwchtow [Mass/Vol]162 mg/dLHigh 70-100The [facility] TrumbullComment on above:Performed By: #### 89816, 80464 #### [facility] [address] [place] [address], USAGlucose [Mass/Vol]146 mg/jWMvdq39-317Uww [facility] TrumbullComment on above:Performed By: #### 71338, 95961 #### [facility] [address] [place] [address], USAGlucose [Mass/Vol]213 mg/bHIloe98-417Bsl [facility] TrumbullComment on above:Performed By: #### 46180, 43902 #### [facility] [address] [place] [address], USAGlucose [Mass/Vol]81 mg/tAGlslyp85-752Etw [facility] TrumbullComment on above:Performed By: #### 73001, 57033 #### [facility] [address] [place] [address], USABASIC METABOLIC PANELon 70-20-6685Adxlhrg [Mass/Vol]8.4 mg/dLLow8.6-10.3The [facility] TrumbullComment on above:Order Comment: Yes: Add to Previous draw if ablePerformed By: #### 49041 #### [facility] [address] [place] [address], USAChloride [Moles/Vol]103 mmol/AYxbnjq49-887Ifc [facility] TrumbullComment on above:Order Comment: Yes: Add to Previous draw if ablePerformed By: #### 25697 #### [facility] [address] [place] [address], USACO2 [Moles/Vol]26 mmol/GRpwkfn05-09Zvb [facility] TrumbullComment on above:Order Comment: Yes: Add to Previous draw if able Performed By: #### 58007 #### [facility] [address] [place] [address], USACreatinine [Mass/Vol]1.03 mg/dLNormal0.60-1.20The [facility] - TrumbullComment on above:Order Comment: Yes: Add to Previous draw if ablePerformed By: #### 76312 #### [facility] [address] [place] [address], USAGFR/1.73 sq M predicted among blacks MDRD (S/P/Bld) [Vol rate/Area]mL/min/{1.73_m2}Normal>60The [facility] Comment on above:Order Comment: Yes: Add to Previous draw if ablePerformed By: #### 04045 #### [facility] [address] [place] [address], USAGFR/1.73 sq M predicted among non-blacks MDRD (S/P/Bld) [Vol rate/Area]54 ml/min/1.73sq mAbnormal>60The [facility] TrumbullComment on above:Order Comment: Yes: Add to Previous draw if ablePerformed By: #### 34678 #### [facility] [address] [place] [address], USAGlucose [Mass/Vol]209 mg/eWFhcs07-391Kgg [facility] TrumbullComment on above:Order Comment: Yes: Add to Previous draw if ablePerformed By: #### 26804 #### [facility] [address] [place] [address], USAPotassium [Moles/Vol]3.9 mmol/LNormal3.5-5.1The [facility] TrumbullComment on above:Order Comment: Yes: Add to Previous draw if ablePerformed By: #### 85069 #### [facility] [address] [place] [address], USASodium [Moles/Vol]135 mmol/YXov592-378Tdj [facility] TrumbullComment on above:Order Comment: Yes: Add to Previous draw if ablePerformed By: #### 77558 #### [facility] [address] [place] [address], USAUrea nitrogen [Mass/Vol]16 mg/dLNormal7-25The [facility] TrumbullComment on above:Order Comment: Yes: Add to Previous draw if ablePerformed By: #### 17265 #### [facility] [address] [facility] [place] [id number], USACBC COMPLETE BLOOD COUNTon 57-24-8251Tmaahfqrabx distribution width (RBC) [Ratio]12.8 %Znoifg63.5-15.0The [facility] TrumbullComment on above:Order Comment: Yes: Add to Previous draw if able Performed By: #### 92744 #### [facility] [address] [facility] [place] [address], USAHematocrit (Bld) [Volume fraction]35.0 %Low36.0-45.0The [facility] TrumbullComment on above:Order Comment: Yes: Add to Previous draw if ablePerformed By: #### 48271 #### [facility] [address] [place] [address], [facility] MEDICAL CENTERHemoglobin (Bld) [Mass/Vol]11.2 g/dLLow12.0-15.0The [facility] TrumbullComment on above:Order Comment: Yes: Add to Previous draw if ablePerformed By: #### 67837 #### [facility] [address] [place] [address], [facility] (RBC) [Entitic mass]31.5 fxJdzijk31.0-33.0The [facility] TrumbullComment on above:Order Comment: Yes: Add to Previous draw if ablePerformed By: #### 00192 #### [facility] [address] [place] [address], [facility]ICAL CENTERMCHC (RBC) [Mass/Vol]32.0 g/wGVeqnsn40.0-35.0The [facility] TrumbullComment on above:Order Comment: Yes: Add to Previous draw if ablePerformed By: #### 95572 #### [facility] [address] [facility] [place] [address], [facility]V (RBC) [Entitic vol]98.3 sEYddj78.0-98.0The [facility] TrumbullComment on above:Order Comment: Yes: Add to Previous draw if ablePerformed By: #### 08923 #### [facility] [address] [place] [address], USANucleated RBC/100 WBC (Bld) [Ratio]0 %Normal0-0The [facility] TrumbullComment on above:Order Comment: Yes: Add to Previous draw if ablePerformed By: #### 47441 #### [facility] [address] [place] [address], USAPLAT [id number] 10*3/fUGxpcft433-427Rrl [facility] TrumbullComment on above:Order Comment: Yes: Add to Previous draw if able Performed By: #### 32307 #### [facility] [address] [facility] [place] [address], USARBC (Bld) [#/Vol]3.56 10*6/uLLow3.80-5.00The [facility] TrumbullComment on above:Order Comment: Yes: Add to Previous draw if ablePerformed By: #### 34783 #### [facility] [address] [facility] [place] [address], USAWBC (Bld) [#/Vol]14.61 10*3/uLHigh4.00-10.60The [facility] TrumbullComment on above:Order Comment: Yes: Add to Previous draw if ablePerformed By: #### 82890 #### [address] [place] [address], USACERVICAL SPINE 2 OR 3 Son 96-52-8552QKXFQUKG SPINE 2 OR 3 SUniSelect [facility]ty [facility], Inc Department of Radiology [address] [place] [id number] Patient Name: CRISELDA NEVAREZ : 1955 [...] C5-C6 ANTERIOR CERVICAL DISCECTOMY WITH FUSION Dr. Newman 15 seconds fluoro time QUESTION FOR THE RADIOLOGIST: C4-C5, C5-C6 ANTERIOR CERVICAL DISCECTOMY WITH FUSION PROTOCOLS: AP, Odontoid and Lateral views were obtained. COMPARISON: None FINDINGS: Multiple spot fluoroscopic images demonstrate anterior and interbody fusion C4 through C6. IMPRESSION: Multiple spot fluoroscopic images demonstrate anterior and interbody fusion C4 through C6. Electronically signed by:Xiomara Dumont. Transcribed by: [email or web address], User Resident: Electronically Signed by: XIOMARA DUMONT @ 08/23/2018 04:07 PMNDunlap Memorial HospitalComment on above:Order Comment: C4-C5, C5-C6 ANTERIOR CERVICAL DISCECTOMY WITH FUSIONOperative Reporton [id number] ReportMR#: [id number] S [facility] Pt. Name: Criselda Nevarez Room #: 0C Discharge Date: Birthdate: 1955 OPERATIVE REPORT DATE OF SURGERY: 08/23/2018 SURGEON: Micheal Newman M.D. 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 POSTOPERATIVE DIAGNOSIS: Herniated cervical disk and spinal stenosis from C4 through C6. INDUSTRIAL DESIGN INTERN: ELIDIA Castle. ANESTHESIA: Endotracheal, Dr. Falcon. PROCEDURE: [...] size 8 at C5-6. The plate was [place], size 35 mm. The screws were 6, [...] Newman M.D. Date Trans: 08/23/2018 01:26 P/mmo DN_JN:[id number] Clinic Lutheran Hospital GLUCOSE LAB on 20-48-7804Cwuihbw [Mass/Vol]157 mg/lIFnba71-261Yqa [facility] TrumbullComment on above:Performed By: #### 61710 #### [facility] [address] [facility] [place] [address], [facility] MEDICAL CENTERGlucose [Mass/Vol]190 mg/hNGbcg72-443Cpc [facility] TrumbullComment on above:Performed By: #### 66542 #### [facility] [address] [facility] [place] [address], [facility] MED[facility] CENTERGlucose [Mass/Vol]182 mg/cNGdpq88-113Edu [facility] TrumbullComment on above:Performed By: #### 63250 #### [facility] [address] [facility] [place] [address], [facility] CENTERGlucose [Mass/Vol]94 mg/jJWaseag11-375Afh [facility] TrumbullComment on above:Performed By: #### 89064 #### [facility] [address] [place] [address], [facility]*MRSA/MSSA DNA NASALon 08-08-2018*MRSA/MSSA DNA NASAL Clinical Report: (D) Specimen: NASAL SWAB Collected: 08/08/2018 15:04 Status: Final Last Updated: 08/08/2018 20:45 MSSA DNA (Final) Negative MRSA DNA (Final) NegativeNoOhioHealth Mansfield HospitalComment on above:Performed By: #### 05081 #### [facility] [address]*URINE CULTUREon 22-29-2236Oxnlixpe identified Cx Nom (U) Clinical Report: (D) [...] CEFAZOLIN (CZ) 2 Susceptible 4 Susceptible CEFTRIAXONE (ACCOUNTING SUPPORT SPECIALIST) <=0.5 Susceptible <=0.5 Susceptible CIPROFLOXACIN (CIP) <=0.5 Susceptible <=0.5 Susceptible GENTAMICIN (GM) 1 Susceptible 4 Susceptible MEROPENEM (MEM) <=0.125 Susceptible NITROFURANTOIN (FT) 32 Susceptible >64 Resistant PIP/TAZO (TZP) 4/4 Susceptible PIP/TAZO (TZP) <=2/4 Susceptible TOBRAMYCIN (TOB) 1 Susceptible 2 Susceptible TRIMETH/SULFA (SXT) <=0.5/9.5 Susceptible <=0.5/9.5 Susceptible Antibiotic Summary Grid: AMS AM AZM CZ ACCOUNTING SUPPORT SPECIALIST CIP GM MEM FT TZP TOB Citrobacter S R S S S S S S S S S amalonaticus complex Proteus mirabilis S S S S S S S R S S SXT Citrobacter S amalonaticus complex Proteus mirabilis [facility] Jewish HospitalComment on above:Performed By: #### 45911 #### [facility] [address] [place] [address], USAAPTTon 42-60-0100mENV Coag (Bld) [Time]28.0 sNormal 25.0-35.0The [facility] TrumbullComment on above:Result Comment: ALL RESULTS MUST BE INTERPRETED WITH RESPECT TO BLOOD DRAWING ARTIFACT OR DILUTION ERROR OF ANTICOAGULANT AT THE TIME OF SAMPLING. THE APTT SHOULD NOT BE USED TO MONITOR UNFRACTIONATED HEPARIN THERAPY, THIS LABORATORY NO LONGER HAS AN ESTABLISHED THERAPEUTIC RANGE BASED ON THE APTT. IT IS RECOMMENDED THAT THE [facility] - HEPARIN ASSAY (ANTI-XA ACTIVITY) BE USED FOR THIS PURPOSE.Performed By: #### 09426, 62671 #### [facility] [address] [address], USABASIC METABOLIC PANELon 96-63-5330Xgiyccu [Mass/Vol]9.6 mg/dLNormal8.6-10.3The [facility] TrumbullComment on above: Performed By: #### 04566 #### [facility] [address] [place] [address], USAChloride [Moles/Vol]103 mmol/ZEiqgjs18-548Uws [facility] TrumbullComment on above:Performed By: #### 24660 #### [facility] [address] [facility] [place] [address], USACO2 [Moles/Vol]30 mmol/BThsvcc68-62Kfw [facility] TrumbullComment on above:Performed By: #### 61808 #### [facility] [address] [place] [address], USACreatinine [Mass/Vol]1.07 mg/dLNormal0.60-1.20The [facility] TrumbullComment on above:Performed By: #### 83358 #### [facility] [address] [place] [address], USAGFR/1.73 sq M predicted among blacks MDRD (S/P/Bld) [Vol rate/Area]mL/min/{1.73_m2}Normal>60The [facility] Comment on above:Performed By: #### 66122 #### [facility] [address] [place] [id number], USAGFR/1.73 sq M predicted among non-blacks MDRD (S/P/Bld) [Vol rate/Area]52 ml/min/1.73sq mAbnormal>60The [facility] TrumbullComment on above:Performed By: #### 58650 #### [facility] [address] [place] [address], [facility] CENTERGlucose [Mass/Vol]93 mg/cOWkyddh88-691Lzq [facility] TrumbullComment on above:Performed By: #### 93033 #### [facility] [address] [facility] [place] [address], USAPotassium [Moles/Vol]4.2 mmol/LNormal3.5-5.1The [facility] TrumbullComment on above:Performed By: #### 33754 #### [facility] [address] [facility] [place] [address], USASodium [Moles/Vol]139 mmol/BXihroe564-848Kjd [facility] TrumbullComment on above:Performed By: #### 97807 #### [facility] [address] [place] [address], USAUrea nitrogen [Mass/Vol]18 mg/dLNormal7-25The [facility] TrumbullComment on above:Performed By: #### 55758 #### [facility] [address] [facility] [address]. [place] [id number], [facility] MEDICAL CENTERCBC W/DIFFon 48-22-7244NXT BASOPHILS0.1 10*3/uLNormal 0.0-0.2The [facility] TrumbullComment on above:Performed By: #### 53770 #### [facility] [address] [facility] [place] [address], USAABS IMM GRANS0.0 10*3/uLNormal0.0-0.2The [facility] TrumbullComment on above:Performed By: #### 19458 #### [facility] [address] [facility] [place] [address], [facility] MEDICAL CENTERABS NEUTROPHILS5.0 10*3/uLNormal1.6-7.6The [facility] TrumbullComment on above:Performed By: #### 11882 #### [facility] [address] [facility] [place] [address], USABasophils/100 WBC (Bld)0.9 %Normal0.0-1.0The [facility] TrumbullComment on above:Performed By: #### 58073 #### [facility] [address] [facility] [place] [address], [facility] MEDICAL CENTEREosinophils (Bld) [#/Vol]0.2 10*3/uLNormal0.0-0.5The [facility] TrumbullComment on above:Performed By: #### 16961 #### [facility] [address] [facility] [place] [address], [facility] CENTEREosinophils/100 WBC (Bld)1.8 %Normal0.0-6.0The [facility] TrumbullComment on above:Performed By: #### 96190 #### [facility] [address] [facility] [place] [address], USAErythrocyte distribution width (RBC) [Ratio]13.1 %Normal 11.5-15.0The [facility] TrumbullComment on above:Performed By: #### 51701 #### [facility] [address] [facility] [place] [address], USAHematocrit (Bld) [Volume fraction]37.2 %Aezuze09.0-45.0The [facility] TrumbullComment on above:Performed By: #### 17650 #### [facility] [address] [facility] [place] [address], USAHemoglobin (Bld) [Mass/Vol]12.3 g/uHPdnvby12.0-15.0The [facility] TrumbullComment on above:Performed By: #### 33994 #### [facility] [address] [facility] [place] [address], USAIMMATURE GRANS0.5 %Normal0.0-1.0The [facility] TrumbullComment on above:Performed By: #### 85425 #### [facility] [address] [facility] [place] [address], USALymphocytes (Bld) [#/Vol]2.2 10*3/uLNormal1.2-4.0The [facility] TrumbullComment on above:Performed By: #### 23585 #### [facility] [address] [facility] [place] [address], [facility] MEDICAL CENTERLymphocytes/100 WBC (Bld)26.5 %Htwflf77.0-45.0The [facility] TrumbullComment on above:Performed By: #### 96064 #### [facility] [address] [facility] [place] [address], [facility] (RBC) [Entitic mass]31.4 rqGrwgbn30.0-33.0The [facility] TrumbullComment on above:Performed By: #### 08370 #### [facility] [address] [facility] [place] [address], [facility] MEDICAL CENTERMCHC (RBC) [Mass/Vol]33.1 g/cCMglbtb30.0-35.0The [facility] TrumbullComment on above:Performed By: #### 86008 #### [facility] [address] [facility] [place] [address], [facility] MEDICAL CENTERMCV (RBC) [Entitic vol]94.9 eEUnqzem53.0-98.0The [facility] TrumbullComment on above:Performed By: #### 20033 #### [facility] [address] [place] [address], USAMonocytes (Bld) [#/Vol]0.7 10*3/uLNormal0.1-1.0The [facility] TrumbullComment on above:Performed By: #### 70941 #### [facility] [address] [place] [address], USAMONOS8.3 %Normal5.0-12.0The [facility] TrumbullComment on above:Performed By: #### 92419 #### [facility] [address] [place] [address], USANeutrophils/100 WBC (Bld)62.0 %Jbbqim34.0-72.0The [facility] TrumbullComment on above:Performed By: #### 17483 #### [facility] [address] [place] [address], USANucleated RBC/100 WBC (Bld) [Ratio]0 %Normal0-0The [facility] TrumbullComment on above:Performed By: #### 44718 #### [facility] [address] [place] [address], USAPLAT RWC377 10*3/lGQtnkhk658-413Vgm [facility] TrumbullComment on above:Performed By: #### 22838 #### [facility] [address] [place] [address], USARBC (Bld) [#/Vol]3.92 10*6/uLNormal3.80-5.00The [facility] TrumbullComment on above:Performed By: #### 46831 #### [facility] [address] [place] [address], USAWBC (Bld) [#/Vol]8.12 10*3/uLNormal4.00-10.60The [facility] TrumbullComment on above:Performed By: #### 68391 #### [address] [place] [address], USACERVICAL SPINE 4 OR 5 VIEWSon 53-97-7287JRIDAOCB SPINE 4 OR 5 VIEWSUnAdams County Hospital Department of Radiology [address] [place] [phone] Patient Name: CRISELDA NEVAREZ : 1955 [...] level Electronically signed by:Xiomara Dumont. Transcribed by: [id number], User Resident: Electronically Signed by: XIOMARA DUMONT @ 08/08/2018 03:24 PMNormalThe [facility] TrumbullComment on above:Order Comment: , POST OP XRAY AP/LAT ONLY , POST OP XRAY AP/LAT ONLY , , , Ordering Provider - MICHEAL NEWMAN MD , HEMOGLOBIN A1Con 30-89-3924SxL9r (Bld) [Mass fraction]154 mg/tNLaqh33-713Jrp [facility] TrumbullComment on above:Performed By: #### 20092 #### [facility] [address] [place] [address], ZWTGvB2l (Bld) [Mass fraction]7.0 %High4.0-6.0The [facility] TrumbullComment on above:Performed By: #### 42769 #### [facility] [address] [place] [address], USAPROTHROMBIN TIMEon 75-24-1017HWE Coag (PPP) [Relative time] 0.93 {INR}Normal0.91-1.16The [facility] TrumbullComment on above:Result Comment: ACCCP RECOMMENDED INR FOR WARFARIN THERAPY ------- CONDITION INR PROPHYLAXIS OF VENOUS THROMBOSIS 2-3 (HIGH-RISK SURGERY) TREATMENT OF VENOUS THROMBOSIS 2-3 TREATMENT OF PULMONARY EMBOLISM 2-3 PREVENTION OF SYSTEMIC EMBOLISM: 2-3 ACUTE MYOCARDIAL INFARCTION TISSUE HEART VALVES VALVULAR HEART DISEASE ATRIAL FIBRILLATION RECURRENT SYSTEMIC EMBOLISM MECHANICAL HEART VALVE 2.5-3.5 FROM: ORAL ANTICOAGULANTS. MECHANISM OF ACTION, CLINICAL EFFECTIVENESS, AND OPTIMAL THERAPEUTIC RANGE. CHEST 1995;108:231S-246S.Performed By: #### 93215, 38141 #### [facility] [address] [facility] [place] [address], [facility] CENTERPT Coag (PPP) [Time]12.5 xSdvtuc98.3-14.8The [facility] TrumbullComment on above:Result Comment: ALL RESULTS MUST BE INTERPRETED WITH RESPECT TO BLOOD DRAWING ARTIFACT OR DILUTION ERROR OF ANTICOAGULANT AT THE TIME OF SAMPLING.Performed By: #### 53534, 94334 #### [facility] [address] [facility] [place] [address], [facility] CENTERTYPE AND CROSSMATCHon 64-89-8245GKZ INTERPRETATIONONormal The [facility] - TrumbullComment on above:Performed By: #### 26466 #### [facility] [address] [facility] [place] [address], [facility] CENTERRH INTERPRETATIONPositiveNormalThe [facility] TrumbullComment on above:Performed By: #### 41911 #### [facility] [address] [facility] [place] [address], [facility]ICAL CENTERURINALYSIS REFLEXon 90-43-2714Lmzmrujmws (U)CLEARNormal CLEARThe [facility] - TrumbullComment on above:Performed By: #### 73784 #### [facility] [address] [facility] [place] [address], USABilirubin [Mass/Vol]NegativeNormalNEGATIVEThe [facility] - TrumbullComment on above:Performed By: #### [id number] #### [facility] [address] [place] [address], USABLOODNegativeNormalNEGATIVEThe [facility] - TrumbullComment on above:Performed By: #### [id number] #### [facility] [address] [place] [address], USAColor (U)STRAWAbnormalYELLOWThe [facility] - TrumbullComment on above:Performed By: #### [id number] #### [facility] [address] [place] [address], USAEPISNONE SEENNormalFEW,OCC,NONE SEENThe [facility] - TrumbullComment on above:Performed By: #### [id number] #### [facility] [address] [place] [address], USAGlucose [Mass/Vol]NegativeNormalNEGATIVEThe [facility] - TrumbullComment on above:Performed By: #### [id number] #### [facility] [address] [place] [address], USAKETONENegativeNormalNEGATIVEThe [facility] - TrumbullComment on above:Performed By: #### [id number] #### [facility] [address] [place] [address], USALEUK ESTERTRACEAbnormalNEGATIVEThe [facility] - TrumbullComment on above:Performed By: #### [id number] #### [facility] [address] [place] [address], USANitrite Ql (U)NegativeNormalNEGATIVEThe [facility] - TrumbullComment on above:Performed By: #### [id number] #### [facility] [address] [place] [address], USApH (Bld)6.9Nfjcvt3.0-8.0The [facility] - TrumbullComment on above:Performed By: #### [id number] #### [facility] [address] [facility] [place] [address], USAProtein (U) [Mass/Vol]NegativeNormalNEGATIVEThe [facility] - TrumbullComment on above:Performed By: #### [id number] #### [facility] [address] [facility] [place] [address], USARBC (U) [#/Vol]0-2AbnormalNONE SEENThe [facility] - TrumbullComment on above:Performed By: #### [id number] #### [facility] [address] [facility] [place] [address], USASPEC GRAV1.442Stw9.015-1.020The [facility] - TrumbullComment on above:Performed By: #### [id number] #### [facility] [address] [facility] [place] [address], [facility] CENTERWBC UA0-2AbnormalNONE SEENThe [facility] - TrumbullComment on above:Performed By: #### [id number] #### [facility] [address] [place] [address], [facility] Vital Signs Date TimeVital SignValuePerforming FrpwimpwhOgbkittf53-72-0794 09:42-0400Body uplxyt818.86 cmDaviwiley Nicholson DO Work Phone: [phone]10-09-2025 09:42-0400 Body mass index (BMI) [Ratio]33.1 kg/u6Gnuqyandres Nicholson DO Work Phone: [phone](381)681-29[facility]10-09-2025 09:42-0400 Body dnukav13.38 kgDaandres Nicholson DO Work Phone: 1(742)[address]10-09-2025 09:42-0400 Diastolic blood hafsrzzn56 mm[Hg]Rin Nicholson DO Work Phone: 1(147)707-[address] [place], [place] 3720710-09-2025 09:42-0400 Heart rate72 /minDavid Lyn DO Work Phone: 1([phone]10-09-2025 09:42-0400 Systolic blood rmqaytim118 mm[Hg]Rin Nicholson DO Work Phone: 1(408)014-[address] [place], [place] 3720709-29-2025 07:01-0400 Body rursci331.86 cmDaviwiley Lyn DO Work Phone: 1(168)[address]50 [address]09-29-2025 07:01-0400 Body ssyqim54.57 kgDaviwiley Kesslerdane DO Work Phone: 1(469)[address]08-21-2025 10:00-0400 Body rualio706.9 Eric Argueta MD Work Phone: 1(833)[address]08-21-2025 10:00-0400Body mass index (BMI) [Ratio]33.12 kg/d8KypjqNae Argueta MD Work Phone: 1(095)[address] [place], [place] 4701208-21-2025 10:00-0400Body juudqh96.39 kgNae Argueta MD Work Phone: 1(056)[address] [place], [place] 4701208-21-2025 10:00-0400Heart rate70 /min Nae Argueta MD Work Phone: 1(486)[address] [place], [place] 4701208-21-2025 10:00-0400Respiratory rate16 /minNae Argueta MD Work Phone: 1(051)[address] [place], [place] 4701208-21-2025 10:00-8035YoH8% (BldA) [Mass fraction]99 %Nae Argueta MD Work Phone: 1(363)[address] [place], [place] 4701208-05-2025 11:46-0400Body xykxbg997.86 cmDaandres Nicholson DO Work Phone: 1(301)238-50[facility]08-05-2025 11:46-0400 Body mass index (BMI) [Ratio]33.5 kg/d3WljxhRin Nicholson DO Work Phone: 1(962)323-[address] [place], [place] 6914508-05-2025 11:46-0400 Body sxdurb45.46 kgDaviwiley Kesslerdane DO Work Phone: 1(891)634[address]08-05-2025 11:46-0400 Diastolic blood wxxxymhi75 mm[Hg]Rin Nicholson DO Work Phone: 1(059)17550 [address]08-05-2025 11:46-0400 Heart rate75 /Ravin Nicholson DO Work Phone: 1(200)[address]50 [address]08-05-2025 11:46-0400 Respiratory rate16 /Ravin Nicholson DO Work Phone: 1(851)[address] [place], [place] 4972908-05-2025 11:46-0400 SaO2% (BldA) [Mass fraction]98 %Rin Nicholson DO Work Phone: 1(306)[address] [place], [place] 4972908-05-2025 11:46-0400 Systolic blood ursvjfjq290 mm[Hg]Rin Nicholson DO Work Phone: 1(978)17[address]07-10-2025 10:24-0400 Body mass index (BMI) [Ratio]33.08 kg/m2Selin PIMENTEL Work Phone: 1(286)431-[address] [place], [place] [address]Ckbcyqnznc21-79-8523 10:24-0400Body tvivfa99.3 kg Selin PIMENTEL Work Phone: 1(623)[address]07-10-2025 10:24-0400Diastolic blood thprcgjy75 mm[Hg]Selin PIMENTEL Work Phone: 1(631)38[address]07-10-2025 10:24-0400Systolic blood jsrqbanq702 mm[Hg]Selin PIMENTEL Work Phone: 1(847)7[address]05-19-2025 09:40-0400Body fzaiog219.86 cmDaviwiley Kesslervin DO Work Phone: 1(469)39550 [address]05-19-2025 09:40-0400 Body mass index (BMI) [Ratio]32.9 kg/q7Rclcy Girvin DO Work Phone: 1(141)85750 [address]05-19-2025 09:40-0400 Body ekkcbaxalev71.1 [degF]Rin Nicholson DO Work Phone: 1(648)[address] [place], [place] 4972905-19-2025 09:40-0400 Body yocqpl49.93 kgDaviwiley Nicholson DO Work Phone: 1(467)[address] [place], [place] 4972905-19-2025 09:40-0400 Diastolic blood mm[Hg]Rin Nicholson DO Work Phone: 1(883)[address] [place], [place] 4972905-19-2025 09:40-0400 Heart rate83 /Jojokannan Nicholson DO Work Phone: 1(970)[address] [place], [place] 4972905-19-2025 09:40-0400 SaO2% (BldA) [Mass fraction]98 %Rin Nicholson DO Work Phone: 1(887)[address] [place], [place] 4972905-19-2025 09:40-0400 Systolic blood qxpdvcta881 mm[Hg]Rin Nicholson DO Work Phone: 1(313)[address] [place], [place] 4972904-07-2025 08:43-0400 Body thmidt635.86 cmDaviwiley Nicholson DO Work Phone: 1(733)[address] [place], [place] 4972904-07-2025 08:43-0400 Body mass index (BMI) [Ratio]31.5 kg/o7Nvwagandres Nicholson DO Work Phone: 1(586)[address] [place], [place] 4972904-07-2025 08:43-0400 Body orprmk94.76 kgDaandres Nicholson DO Work Phone: 1(505)[address] [place], [place] 4972904-07-2025 08:43-0400 Diastolic blood rayhqcrs63 mm[Hg]Rin Nicholson DO Work Phone: 1(820)[address] [place], [place] 4972904-07-2025 08:43-0400 Heart rate78 /Ravin Nicholson DO Work Phone: 1(719)[address] [place], [place] 4972904-07-2025 08:43-0400 Systolic blood upghpunn801 mm[Hg]Rin Nicholson DO Work Phone: 1(525)[address] [place], [place] 4972902-27-2025 10:33-0500 Body yaqkdg855.86 cmDavid Girvin DO Work Phone: 1(943)986-[address] [place], [place] 3720702-27-2025 10:33-0500 Body mass index (BMI) [Ratio]30.4 kg/p1Ayivk Girvin DO Work Phone: 1(293)042-[address] [place], [place] 3720702-27-2025 10:33-0500 Body vokzka71.49 kgDavid Girvin DO Work Phone: 1(172)382-[address] [place], [place] 3720702-20-2025 09:29-0500 Body kikjwa465.9 Eric Argueta MD Work Phone: 1(454)768-[address] [place], [place] [address]Dpoqtnziyn95-04-4851 09:29-0500Body mass index (BMI) [Ratio]30.3 kg/e3FrmepNae Argueta MD Work Phone: 1(150)530-[address] [place], [place] [address]Oulsaxagyo57-29-3589 09:29-0500Body jeqfdy33.04 kgNae Argueta MD Work Phone: [address] [place], [place] [address]Vmubppgzku69-74-9270 09:29-0500Heart rate73 /min Nae Argeuta MD Work Phone: 1(551)496-[address] [place], [place] [address]Ztfixzcgnu30-52-1711 09:29-0500Respiratory rate16 /minNae Argueta MD Work Phone: 1(859)772-[address] [place], [place] [address]Ttumwyvnaf73-88-0713 09:29-8737UzG9% (BldA) [Mass fraction]95 %Nae Argueta MD Work Phone: [facility] LawnUdqdhioeet44-93-5179 09:28-0500Body .86 cmDaviwiley Kesslervin DO Work Phone: 1(831)[address]02-19-2025 09:28-0500 Body mass index (BMI) [Ratio]30.4 kg/c8Rtsen Girvin DO Work Phone: 1(016)69150 [address]02-19-2025 09:28-0500 Body frpedn61.49 kgDaviwiley Girvin DO Work Phone: 1(901)62250 [address]02-19-2025 09:28-0500 Diastolic blood platfgbl46 mm[Hg]Rin Nicholson DO Work Phone: 1(443)[address] [place], [place] 4972902-19-2025 09:28-0500 Heart rate86 /Argentinawiley Kesslerdane DO Work Phone: 1(378)[address] [place], [place] 4972902-19-2025 09:28-0500 Respiratory rate16 /Jojokannan Kesslerdane DO Work Phone: 1(130)[address] [place], [place] 4972902-19-2025 09:28-0500 SaO2% (BldA) [Mass fraction]97 %Rin Nicholson DO Work Phone: 1(141)[address] [place], [place] 4972902-19-2025 09:28-0500 Systolic blood iydvpxpc669 mm[Hg]Rin Nicholson DO Work Phone: 1(525)[address] [place], [place] 4972902-18-2025 09:45-0500 Body fwwuca036.86 cmDacodywiley Lyn DO Work Phone: 1(402)[address] [place], [place] 4972902-18-2025 09:45-0500 Body mass index (BMI) [Ratio]31.1 kg/l2Wtyms Lyn DO Work Phone: 1(768)[address] [place], [place] 4972902-18-2025 09:45-0500 Body ibmrvtsxtdl26.1 [degF]Rin Nicholson DO Work Phone: 1(888)[address] [place], [place] 4972902-18-2025 09:45-0500 Body zhmatb09.85 kgDaandres Nicholson DO Work Phone: 1(949)[address] [place], [place] 4972902-18-2025 09:45-0500 Diastolic blood tudvnuzy09 mm[Hg]Rin Nicholson DO Work Phone: 1(123)[address] [place], [place] 4972902-18-2025 09:45-0500 Heart rate79 /Jojokannan Nicholson DO Work Phone: 1(926)[address] [place], [place] 4972902-18-2025 09:45-0500 SaO2% (BldA) [Mass fraction]97 %Rin Nicholson DO Work Phone: [facility]02-18-2025 09:45-0500 Systolic blood qtwobjcz310 mm[Hg]Rin Nicholson DO Work Phone: 1(877)308-54[facility]11-19-2024 11:08-0500 Body .9 Eric Argueta MD Work Phone: 1(157)[address]11-19-2024 11:08-0500Body mass index (BMI) [Ratio]31.71 kg/b7KuzbbNae Arugeta MD Work Phone: 1(779)[address] [place] [address]-19-2024 11:08-0500Body kuabag61.22 kgNae Argueta MD Work Phone: 1(473)[address] [place], [place] 4701211-19-2024 11:08-0500Diastolic blood kgbijwge20 mm[Hg]Nae Argueta MD Work Phone: 1(067)[address] [place], [place] 4701211-19-2024 11:08-0500Heart rate83 /min Nae Argueta MD Work Phone: 1(828)[address] [place] [address]-19-2024 11:08-0500Respiratory rate18 /minNae Argueta MD Work Phone: 1(034)[address] [place], [place] 4701211-19-2024 11:08-0500Systolic blood wewcyzyl514 mm[Hg]Nae Argueta MD Work Phone: 1(057)[address] [place] [address]-15-2024 10:34-0500Body .86 cmDaandres Nicholson DO Work Phone: 1(909)476-62[facility]11-15-2024 10:34-0500 Body yrdemd54.66 kgDaviwiley Nicholson DO Work Phone: 1(545)425-05[facility]10-18-2024 08:33-0400 Body luyejw193.86 cmDaandres Nicholson DO Work Phone: 1(891)815-84[facility]10-18-2024 08:33-0400 Body mass index (BMI) [Ratio]32.3 kg/y6Ebxpw Girdane DO Work Phone: 1(169)[address] [place], [place] 4972910-18-2024 08:33-0400 Body ffsaphbbwzu20.7 [degF]Rin Nicholson DO Work Phone: 1(732)[address] [place], [place] 4972910-18-2024 08:33-0400 Body wojsaj00.57 kgDacodywiley Nicholson DO Work Phone: 1(334)[address] [place], [place] 4972910-18-2024 08:33-0400 Diastolic blood gjuabrkw54 mm[Hg]Rin Nicholson DO Work Phone: 1(566)[address] [place], [place] 4972910-18-2024 08:33-0400 Heart rate76 /minDkannan Nicholson DO Work Phone: 1(898)[address] [place], [place] 4972910-18-2024 08:33-0400 SaO2% (BldA) [Mass fraction]98 %Rin Nicholson DO Work Phone: 1(060)[address] [place], [place] 4972910-18-2024 08:33-0400 Systolic blood mmryclwq309 mm[Hg]Rin Nicholson DO Work Phone: 1(774)[address] [place], [place] 4972910-16-2024 11:47-0400 Body rntzip607.86 cmDacodywiley Kesslerdane DO Work Phone: 1(608)[address] [place], [place] 4972910-16-2024 11:47-0400 Body mass index (BMI) [Ratio]32.3 kg/k8Axhlb Girdane DO Work Phone: 1(003)[address] [place], [place] 4972910-16-2024 11:47-0400 Body .8 [degF]Rin Nicholson DO Work Phone: 1(693)[address] [place], [place] 4972910-16-2024 11:47-0400 Body .74 kgDacodywiley Nicholson DO Work Phone: 1(304)[address] [place], [place] 4972910-16-2024 11:47-0400 Diastolic blood gshrnovl33 mm[Hg]Rin Nicholson DO Work Phone: 1(168)[address] [place], [place] 4972910-16-2024 11:47-0400 Heart rate73 /Argentinawiley Kesslerdane DO Work Phone: [facility]10-16-2024 11:47-0400 Respiratory rate16 /Argentinawiley Kesslerdane DO Work Phone: [facility]10-16-2024 11:47-0400 SaO2% (BldA) [Mass fraction]98 %Rin Nicholson DO Work Phone: [facility]10-16-2024 11:47-0400 Systolic blood jnfvdqal367 mm[Hg]Rin Nicholson DO Work Phone: [facility]06-09-2023 08:10-0400 Body tpuzxy998.86 cmDaandres Nicholson Other [employer] Other 133598-64-0874 08:10-0400Body mass index (BMI) [Ratio] 29.89 kg/u6NuxnkRin Nicholson Other [employer] Other 384044-47-7259 08:10-0400Body fioawqnyvdw81.6 [degF]Rin Nicholson Other [employer] Other 065345-21-7862 08:10-0400Body utqduz16.13 kgDaandres Nicholson Other [facility] [employer] Other 591813-47-1871 08:10-0400Diastolic blood mm[Hg] Rin Nicholson Other [employer] Other 06-09-2023 08:10-0400Respiratory rate18 /Ravin Nicholson Other [employer] Other 06-09-2023 08:10-4162TkV7% (BldA) [Mass fraction]97 % Rin Nicholson Other [employer] Other 06-09-2023 08:10-0400Systolic blood mm[Hg] Rin Nicholson Other [employer] Other 04-24-2023 18:20-0400Body vpvugc132.86 cmDaandres Nicholson Other [employer] Other 04-24-2023 18:20-0400Body mass index (BMI) [Ratio] 29.89 kg/v8Idvpuandres Nicholson Other [employer] Other 04-24-2023 18:20-0400Body wqjsbxuwraj92.2 [degF]Rin Nicholson Other [employer] Other 04-24-2023 18:20-0400Body ubdbyz58.13 kgDaandres Nichoslon Other [employer] Other 04-24-2023 18:20-0400Diastolic blood bhuympht71 mm[Hg] Rin Nicholson Other [employer] Other 04-24-2023 18:20-0400Respiratory rate16 /minDkannan Nicholson Other [employer] Other 04-24-2023 18:20-5586ZvG1% (BldA) [Mass fraction]98 % Rin Nicholson Other [employer] Other 04-24-2023 18:20-0400Systolic blood numbnhln184 mm[Hg] Rin Nicholson Other [employer] Other 10-24-2022 18:00-0400Body .86 cmDaandres Nicholson Other [employer] Other 10-24-2022 18:00-0400Body mass index (BMI) [Ratio] 28.98 kg/f1LejfwRin Nicholson Other [employer] Other 10-24-2022 18:00-0400Body .1 [degF]Rni Nicholson Other [employer] Other 10-24-2022 18:00-0400Body oiwtyz53.09 kgDaandres Nicholson Other [employer] Other 10-24-2022 18:00-0400Diastolic blood uksbdmhw37 mm[Hg] Rin Nicholson Other [employer] Other 10-24-2022 18:00-0400Respiratory rate16 /Ravin Nicholson Other [employer] Other 10-24-2022 18:00-6157PsL1% (BldA) [Mass fraction]99 % Rin Nicholson Other [employer] Other 10-24-2022 18:00-0400Systolic blood mkcowizm998 mm[Hg] Rin Nicholson Other [employer] Other Encounters Encounter DateEncounter TypeCare ProviderFacilityStart: 01-24-2025 End: 01-94-3160vwnezeoxkiDehwx Girvin DO Work Phone: [facility] Work Phone: Start: 01-24-2025 End: 52-52-4533Fqztvvy encounter procedureJacklyn Heard MD-[facility] Work Phone: Start: 01-14-2025 End: 49-18-1649Jriqewv encounter procedureJacklyn Heard MD-[facility] [place] Work Phone: Start: 01-14-2025 End: 46-20-0936uephqfleriQocrc Lyn DO Work Phone: [facility] Work Phone: Start: 12-06-2024 End: 87-50-0373Rqstqzleo Argueta MD Work Phone: [facility] EndocrinologyStart: 12-06-2024 End: 53-68-4465Swoivfleo Argueta MD Work Phone: [facility] EndocrinologyStart: 12-06-2024 End: 43-32-2381Auvqmf outpatient visit 25 minutesAhstefany Argueta MD Work Phone: [facility] Judy EndocrinologyComment on above: Thyrotoxicosis with diffuse 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 (Primary Dx); Graves diseaseStart: 12-06-2024 End: 63-85-5404crtebtvkfdCHQSE F SABBAGHNot AvailableStart: 11-20-2024 End: 90-49-4677auntntcsdyWarwv Girvin DO Work Phone: [facility] Work Phone: Start: 11-20-2024 End: 70-25-8822Pfgwiyy encounter procedureBarbara Franklin MD-[facility] Work Phone: Start: 05-56-8631Bnt-patient / Non-visitNae Argueta MD-[facility] Work Phone: Start: 49-32-6251Tvi-patient / Non-visitBarbara Franklin MD-[facility] Work Phone: Start: 10-25-2024 End: 45-53-4557Jtbitj Abril PIMENTEL Work Phone: [facility] BCP OBStart: 10-25-2024 End: 62-54-5854Fhlbob flowsheetSelin PIMENTEL Work Phone: noMS BCP OBStart: 10-25-2024 End: 55-69-9186Sgewuynss Result EncounterSelin PIMENTEL Work Phone: [facility] External Department UnsolicitedStart: 10-25-2024 Non-patient / Non-visitAmy Francia PIMENTEL-[facility] Work Phone: Start: 10-25-2024 End: 35-99-3027Ylffvvw encounter procedureSelin PIMENTEL Work Phone: [facility] Work Phone: Start: 10-25-2024 End: 78-08-5826Lvjbduld preventive med est patient 65yrs& olderSelin PIMENTEL Work Phone: [facility] BCP OBComment on above:Well woman exam with routine gynecological exam; Breast cancer screening by mammogram; Postmenopausal stateStart: 10-25-2024 End: 96-73-7582evlazqipdyXGT RAMEYNot AvailableStart: 09-13-2024 End: 98-21-9812Mpuaxvi encounter procedureDavid Lyn DO Work Phone: [facility]-Ultrasound Cntr for Breast CarStart: 09-13-2024 End: 74-94-0900uebhtrdsbjWayfp Checovin DO Work Phone: [facility] Work Phone: Start: 09-03-2024 End: 59-89-4696Snbiwfs encounter procedureDavid Girvin DO Work Phone: [facility] [place] Work Phone: Start: 40-21-1127Zwr-patient / Non-visitDavid Checovin DO Work Phone: [facility] Work Phone: Start: 08-10-2024 End: 19-44-2439Hsikfqx encounter procedureDavid Girvin DO Work Phone: [facility] [place] Work Phone: Start: 08-10-2024 End: 81-41-1618fkpahvjmxtSieiy Girvin DO Work Phone: [facility] Work Phone: Start: 07-23-2024 End: 34-51-9559dsflepgbrfCzrot Girvin DO Work Phone: [facility] Work Phone: Start: 07-23-2024 End: 56-09-2939Orjfmpm encounter procedureDavid Girvin DO Work Phone: [facility] Work Phone: Start: 06-28-2024 End: 60-05-6532Jhezklh encounter procedureDavid Girvin DO Work Phone: [facility]-Digestive Health Work Phone: Start: 06-28-2024 End: 93-10-5893fmnatgfgotEdsfk Girvin DO Work Phone: [facility] Work Phone: Start: 06-14-2024 End: 30-49-6040bxdmskklswGrryk Girvin DO Work Phone: [facility] Work Phone: Start: 06-14-2024 End: 07-61-8792Zjdnvgm encounter procedureDavid Girvin DO Work Phone: [facility] Work Phone: Start: 06-07-2024 End: 79-18-3497Neodmkleo Argueta MD Work Phone: [facility] ENDOCRINOLOGYStart: 06-07-2024 End: 90-62-9955Mdwmmileo Argueta MD Work Phone: [facility] ENDOCRINOLOGYStart: 06-07-2024 End: 79-73-5025Tqezfx outpatient visit 25 minutesNae Argueta MD Work Phone: [facility] ENDOCRINOLOGYComment on above: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); Graves disease (CMS/HCC)Start: 06-07-2024 End: 15-16-6788vkeljcbgjwMLHJW F SABBAGHNot AvailableStart: 06-06-2024 End: 50-52-0526gggqhblhnnWtujs Girvin DO Work Phone: [facility] Work Phone: Start: 06-06-2024 End: 29-75-4136Ozhyzem encounter procedureDavid Girvin DO Work Phone: [facility] Work Phone: Start: 06-05-2024 End: 73-11-7667adhmxaixouIfylp Girvin DO Work Phone: [facility] Work Phone: Start: 06-05-2024 End: 63-45-0646Ketogyc encounter procedureDavid Girvin DO Work Phone: [facility] Work Phone: Start: 05-29-2024 End: 78-33-4561Jzoyxjl encounter procedureDavid Girvin DO Work Phone: [facility]-Lab [place] Work Phone: Start: 05-29-2024 End: 92-17-6017lvdcimenovSmxwt Girvin DO Work Phone: [facility] Work Phone: Start: 05-28-2024 End: 11-26-6749Htetolv encounter procedureDavid Girvin DO Work Phone: [facility]trasound [place] Work Phone: Start: 05-28-2024 End: 97-58-4616hrrrochcqfYdbrp Girvin DO Work Phone: [facility] Work Phone: Start: 96-54-1636Lpq-patient / Non-visitDavid Girvin DO Work Phone: [facility] Work Phone: Start: 03-06-2024 End: 79-85-2133Kxurjn Marvin Argueta MD Work Phone: [facility] ENDOCRINOLOGYStart: 03-06-2024 End: 43-63-7629Bplatz Marvin Argueta MD Work Phone: [facility] ENDOCRINOLOGYStart: 03-06-2024 End: 77-22-9081Wmlefy outpatient visit 25 minutesNae Argueta MD Work Phone: [facility] ENDOCRINOLOGYComment on above: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); Graves disease (CMS/HCC)Start: 03-06-2024 End: 71-42-2290wtwugqnoglXKXOI F SABBAGHNot AvailableStart: 03-02-2024 End: 84-42-4404Zkzjoif encounter procedureDavid Girvin DO Work Phone: [facility]-Nuc Med [place] Work Phone: Start: 03-02-2024 End: 70-62-8618bttpjqcpwmNctlm Girvin DO Work Phone: [facility] Work Phone: Start: 73-77-7589Yan-patient / Non-visitDavid Girvin DO Work Phone: [facility] Work Phone: Start: 02-03-2024 End: 39-56-0506Hywkvcv encounter procedureDaandres Nicholson DO Work Phone: [facility] [place] Work Phone: Start: 02-01-2024 End: 64-01-6595Tbpjclh encounter procedureDaandres Nicholson DO Work Phone: [facility] Work Phone: Start: 05-16-2023 End: 35-16-3947tfizqtfwmxWznhy Girvin Other [facility] [employer] Other Start: 76-20-9254Fyazrbmhu encounterDavid LynFPG Family Medicine [place]vueStart: 65-47-8893Qjltzruwy by computer linkDaandres Nicholson [facility] Family Medicine [place]Start: 05-03-2023 End: 78-53-6438clmhzqhszqPP Rin Nicholson Work Phone: [facility] Work Phone: Start: 05-03-2023 End: 03-59-0263Ndkjpie encounter procedureDO Rin Nicholson Work Phone: [facility] Work Phone: Start: 04-12-2023 End: 82-95-8212pwaaaochwyXthzs Girvin Other [facility] [employer] Other Start: 83-70-8614Aakhdqvnf encounterDavid LynFPG [facility] [place]vueStart: 04-04-2023 End: 91-10-1679dyypohedguQqbbd Girvin Other [employer] Other Start: 44-62-5766Ouvbxekts encounterDavid LynFPG Family Medicine [place]vueStart: 03-21-2023 End: 75-31-5752eudupzhkfpYnfli Girvin Other [employer] Other Start: 64-00-0937Wdjygjcia encounterDavid TobiasG Family Medicine [place]vueStart: 02-23-2023 End: 16-17-0219tsliqaqnxiUppfw Girvin Other [employer] Other Start: 70-84-0678Ezzwqtfpc encounterDavid LynFPG Family Medicine [place]vueStart: 09-24-2022 End: 58-75-2128ulfcvxteqhBbzhl Girvin Other [employer] Other Start: 43-03-3678Bjivzv outpatient visit 15 minutes [facility] [place]: 08-30-2022 End: 92-77-7307nrihlohzrrYM DAVID GIRVINFacility:F2Nqaxp: 08-17-2022 End: 45-23-5126nxcbzqaigtIqkay Lyn Other [employer] Other Start: 53-23-9472Sxqwxcsyo encounterDavid LynFPG [facility] [place]Start: 08-16-2022 End: 59-43-8672rzokynaeojUD DAVID GIRVINFacility:N4Mafss: 08-09-2022 End: 45-89-1868qwxuayazxqUnxpd Lyn Other [employer] Other Start: 50-07-4728Qvcedc outpatient visit 25 minutes [facility] [place]: 08-06-2022 End: 94-81-3155zemnbjpvmdCjtta Lyn Other [employer] Other Start: 69-88-5189Grpzaypzc encounterDavid LynFPG [facility] [place]Start: 07-31-2022 End: 76-97-1281hwrfppxkkfTOEly Doshicility:Z9Bcrgs: 06-04-2022 End: 37-59-8643kmweqvkkhsUkxxl Girvin Other [employer] Other Start: 76-50-5555Hiiudsvgw encounterDavid GirvinFPG Family Medicine BellevueStart: 05-24-2022 End: 24-01-8728bpduexcdleBmxvx Girdane Other [employer] Other Start: 15-79-2006Ufrbviksv encounterDavid GirvinFPG Family Medicine BellevueStart: 05-14-2022 End: 29-31-5432plnjsztymhPkhns Girvin Other [employer] Other Start: 42-14-4970Caoruxycl encounterDavid GirvinFPG Family Medicine BellevueStart: 04-30-2022 End: 63-68-3550vfbksydblcLF TURNERNICOLE JorgensenFacility:R2Miukw: 04-22-2022 End: 65-55-9999tupuueympeRddih Lyn Other [employer] Other Start: 25-81-9497Fzeyrgcml encounterDavid GirvinFPG Family Medicine BellevueStart: 03-29-2022 End: 63-08-5809veehopispyCziaj Lyn Other [employer] Other Start: 86-17-6017Wkyrbfpks encounterDavid GirvinFPG Family Medicine BellevueStart: 03-27-2022 End: 50-31-4750udvhskvbtlUEEly Ungerity:G5Cgoyb: 02-08-2022 End: 66-44-2402kqipqxecamPmwmb Girvin Other [employer] Other Start: 84-48-9896Peshoa outpatient visit 25 minutes Rin NicholsonFPG Family Medicine BellevueStart: 01-22-2022 End: 07-68-8995mjmpiehibcWQ RIN NICHOLSONFacility:X0Davit: 08-23-2018 End: 88-68-0557Uiouezfvsk and management of inpatientPROVIDER UNKNOWN Facility:[facility]MCStart: 45-30-6005Ochvxya encounter procedureAmy Darby Jean Facility:9090Start: 73-04-2331Myzzkjv encounter procedureAmy Darby Ted Facility:9090Start: 11-36-8013Djdpfhh encounter procedureAmy Darby Ted Facility:9122 Procedures DateProcedureProcedure DetailPerforming ClinicianStart: 10-28-5214SUD of abdomen with contrastDaviwiley Nicholson DO Work Phone: Start: 38-81-8389EEA,APTIMA HPV,AGE GDLNAmy Oneal PA Work Phone: Start: 05-27-1041Hfacyfkzb mammographyDaviwiley Nicholson DO Work Phone: Start: 70-56-7978Elitppfvoizbfir of left breastDaviwiley Nicholson DO Work Phone: Start: 53-09-2631CV bone scan whole bodyDaviwiley Nicholson DO Work Phone: Start: 77-26-7289Kisytldgtf elastography of liverDaviwiley Nicholson DO Work Phone: Start: 98-28-5186Ggaitulh tomography of abdomen and pelvis with contrastDaviwiley Nicholson DO Work Phone: Start: 79-14-7642Msjzwwpgmvjcahf of bilateral kidneys Rin Nicholson DO Work Phone: Start: 98-99-7181Ilksktcisqzv myocardial perfusion stress studyDaviwiley Nicholson DO Work Phone: Start: 47-16-4780Tmlpzubcn mammography of bilateral breastsDO Rin Nicholson Work Phone: Start: 42-76-2849BGEJSP 2-6 C JT W NONAUT SUB, ANT APPR A COL, OPENAZEDINE MEDHKOURStart: 42-54-5215BXMFISRNW OF CERVICAL VERTEBRAL DISC, OPEN APPROACHAZEDINE MEDHKOURStart: 10-16-4987Edzvyiuz screenPROVIDER UNKNOWNComment on above:Performed By: #### [id number] #### [facility] Noemy GONZ[address] Plan of Treatment DateCare ActivityDetailAuthorStart: 10-30-2025 End: 25-98-7742Smwhqek encounter procedureNOMS BCP OBStart: 81-51-6043Vkibfnoqi vaccinationInfluenza Vaccine (#1)[facility] HealthcareStart: 12-06-2024 End: 29-09-1868Ivvxxeu function 2000 panel - Serum or PlasmaHepatic function panel Lab Routine Thyrotoxicosis with diffuse 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 Expected: 12/06/2024 (Approximate), Expires: 12/06/2025NOMS HealthcareComment on above:Expected: 12/06/2024 (Approximate), Expires: 12/06/2025Start: 12-06-2024 End: 47-43-1019Wnjkpsfmoir [Units/volume] in Serum or PlasmaTSH Lab Routine Thyrotoxicosis with diffuse 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 Expected: 12/06/2024 (Approximate), Expires: 12/06/2025NOMS HealthcareComment on above: Expected: 12/06/2024 (Approximate), Expires: 12/06/2025Start: 12-06-2024 End: 03-97-8027Foxgetfor (T4) free [Mass/volume] in Serum or PlasmaT4, free Lab Routine Thyrotoxicosis with diffuse 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 Expected: 12/06/2024 (Approximate), Expires: 12/06/2025N[facility] HealthcareComment on above: Expected: 12/06/2024 (Approximate), Expires: 12/06/2025Start: 12-06-2024 End: 44-21-2024Vxvfsnzpemxrhrrk (T3) Free [Mass/volume] in Serum or PlasmaT3, free Lab Routine Thyrotoxicosis with diffuse 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 Expected: 12/06/2024 (Approximate), Expires: 12/06/2025[facility] Work Phone: Comment on above:Expected: 12/06/2024 (Approximate), Expires: 12/06/2025Start: 12-06-2024 End: 04-87-3146Baokejv encounter procedureNOMISSOURI [facility] ENDOCRINOLOGYComment on above: ArrivedStart: 10-25-2024 End: 14-06-1502Xmtvjkg encounter nvvjkitux68/10/2025 10:00 AM EDT Office Visit [facility] [address] [place] [phone] Selin No PA [address] [place] [address] ArrivedNORANCHO [facility] OBComment on above:ArrivedStart: 07-23-2024 Mitochondria M2 IgG Ab [Units/volume] in SerumKettering Health Behavioral Medical Center Start: 50-56-6248RztwwxleoKettering Memorial Hospitaltart: 89-79-3016WzbuycbobKettering Memorial Hospitaltart: 21-87-2399Lmypkwyv tomography of abdomen and pelvis with contrastCT abdomen pelvis w [facility] Start: 18-31-7750Nsofxfsw tomography of abdomen and pelvis with contrastCT abdomen pelvis wo/w [facility] Hospitaltart: 06-28-2024 Hepatitis A virus Ab [Presence] in Serum by ImmunoassayKettering Memorial Hospitaltart: 97-16-6216Pstsswoge B core antibody measurementKettering Memorial Hospitaltart: 35-39-2769Icgwsizxi B virus surface Ab [Presence] in SerumKettering Memorial Hospitaltart: 42-29-6336SqiigwnzwKettering Memorial Hospitaltart: 06-07-2024 End: 34-37-1570Mlbaqup function 2000 panel - Serum or PlasmaHepatic function panel Lab Routine 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) Expected: 06/07/2024 (Approximate), Expires: 06/07/2025[facility] Comment on above:Expected: 06/07/2024 (Approximate), Expires: 06/07/2025Start: 06-07-2024 End: 29-46-2386Srepapbawmc [Units/volume] in Serum or PlasmaTSH Lab Routine Thyrotoxicosis with diffuse 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 ([facility]/HCC) Expected: 06/07/2024 (Approximate), Expires: 06/07/2025[facility] HealthcareComment on above: Expected: 06/07/2024 (Approximate), Expires: 06/07/2025Start: 06-07-2024 End: 07-50-4995Wihjpqhua (T4) free [Mass/volume] in Serum or PlasmaT4, free Lab Routine Thyrotoxicosis with diffuse 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 ([facility]/HCC) Expected: 06/07/2024 (Approximate), Expires: 06/07/2025[facility] HealthcareComment on above:Expected: 06/07/2024 (Approximate), Expires: 06/07/2025Start: 06-07-2024 End: 36-09-6728Wzofuubaxcxrkjos (T3) Free [Mass/volume] in Serum or PlasmaT3, free Lab Routine Thyrotoxicosis with diffuse 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 ([facility]/HCC) Expected: 06/07/2024 (Approximate), Expires: 06/07/2025[facility] Healthcare Work Phone: Comment on above:Expected: 06/07/2024 (Approximate), Expires: 06/07/2025Start: 06-07-2024 End: 37-94-8733Bgiezdc encounter kapgwulpv25/20/2025 9:30 AM EST Office Visit [facility] [address] [place] [phone] Nae Argueta MD [address], [address] [place] [address] [facility] ENDOCRINOLOGYComment on above:Arrived Start: 06-05-2024 End: 92-08-8075Rhlfpjy encounter zqvdzgqsu01/18/2025 11:10 AM EST Office Visit [facility] END[facility] [address] [place] [address] Nae Argueta MD [address] [place] [address] NOMAngella ENDOCRINOLOGYStart: 03-06-2024 End: 50-24-8479Cmjnmbu function 2000 panel - Serum or PlasmaHepatic function panel Lab Routine 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) Expected: 03/06/2024 (Approximate), Expires: 03/06/2025[facility] Healthcare Comment on above:Expected: 03/06/2024 (Approximate), Expires: 03/06/2025Start: 03-06-2024 End: 73-21-1599Gbcnpmisebp [Units/volume] in Serum or PlasmaTSH Lab Routine 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) Expected: 03/06/2024 (Approximate), Expires: 03/06/2025[facility] HealthcareComment on above: Expected: 03/06/2024 (Approximate), Expires: 03/06/2025Start: 03-06-2024 End: 73-21-9823Qmmoustwp (T4) free [Mass/volume] in Serum or PlasmaT4, free Lab Routine 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) Expected: 03/06/2024 (Approximate), Expires: 03/06/2025[facility] HealthcareComment on above:Expected: 03/06/2024 (Approximate), Expires: 03/06/2025Start: 03-06-2024 End: 74-84-8674Mvcinivbjtvawzok (T3) Free [Mass/volume] in Serum or PlasmaT3, free Lab Routine 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) Expected: 03/06/2024 (Approximate), Expires: 03/06/2025[facility] Work Phone: Comment on above:Expected: 03/06/2024 (Approximate), Expires: 03/06/2025Start: 03-06-2024 End: 79-17-3391Grxbgqw encounter hkfhrbejc29/19/2024 11:00 AM EST [facility] [address] [place] [address] Nae Argueta MD [address], [address] [place] [address] ArrivedWILLAPA HARBOR HOSPITAL ENDOCRINOLOGYComment on above:Arrived Start: 13-88-6611Cdfrwrquxvnd myocardial perfusion stress studyNM heaven perf SPECT rest & strKettering Memorial Hospitaltart: 23-50-1636Ctrcpsz referral [facility] Work Phone: Start: 34-07-4868Nvcexnlaz vaccinationInfluenza Vaccine (#1)[facility] HealthcareStart: 16-21-0667Izprtawql for malignant neoplasm of breastMammogramNOLA HealthcareStart: 09-09-1956Medicare Annual Wellness (AWV) Medicare Annual Wellness (AWV)[facility] HealthcareStart: 23-74-3957Izgntgibc for malignant neoplasm of colonNOLA HealthcareAlkaline phosphatase - bone isoenzyme measurementKettering Health Behavioral Medical CenterAlkaline phosphatase [Enzymatic activity/volume] in Serum or [facility] HospitalAlkaline phosphatase isoenz panel - Serum or [facility] Comprehensive metabolic 1999 panel - Serum or [facility] HospitalComprehensive metabolic 1999 panel - Serum or [facility] HospitalCT Abdomen and Pelvis W contrast [facility] HospitalHepatic function panelKettering Health Behavioral Medical CenterHepatitis A virus Ab [Presence] in Serum by ImmunoassayKettering Health Behavioral Medical CenterHepatitis B core antibody measurementKettering Health Behavioral Medical CenterHepatitis B virus surface Ab [Presence] in SerumKettering Health Behavioral Medical CenterHepatitis B virus surface Ag [Presence] in Serum or Plasma by ImmunoassayKettering Health Behavioral Medical CenterIntestinal alkaline phosphatase measurementKettering Health Behavioral Medical CenterPatient referralLancaster Municipal Hospital Ctr Work Phone: Renal function 1999 panel - Serum or [facility] HospitalRenal function 1999 panel - Serum or [facility] HospitalRenal function 1999 panel - Serum or [facility] HospitalTHIN PREP TIS PAP AND HR HPV DNATHIN PREP TIS PAP AND HR HPV DNA Pathology and Cytology Routine Well woman exam with routine gynecol ogical exam Ordered: 10/25/2024NOShriners [facility] Work Phone: comment on above:Ordered: 10/25/2024US Kidney [facility]Asc[facility] Immunizations Immunization DateImmunizationNotesCare RavwqelkYtawuyou12-81-1874Flieu-68 Vaccine, UnspecifiedDavid Lyn DO Work Phone: [facility]09-09-2025Fluzone QIV High-Dose 65YR+Rin Nicholson DO Work Phone: [phone] [place], [place] 3720709-09-2025 Pneumococcal Conjugate Vaccine, 21 valentDavid Lyn DO Work Phone: [phone]09-05-2024COVID-19 (PFIZER) 12Y and olderDavid Lyn DO Work Phone: [phone] [place], [place] 3720709-05-2024influenza, high dose seasonal, preservative-freeDaviwiley Nicholson DO Work Phone: [phone] [place], [place] 3720709-05-2024tetanus toxoid, reduced diphtheria toxoid, and acellular pertussis vaccine, adsorbed Rin Nicholson DO Work Phone: [phone] [place], [place] 3720709-05-2024influenza virus vaccine, unspecified formulationNae Argueta MD Work Phone: [facility] LawnOxauxomfxc87-23-3747WDZPL-05 (MODERNA) 12Y and olderDavid Lyn DO Work Phone: [phone]05-13-2024zoster vaccine recombinantDavid Lyn DO Work Phone: [facility]05-13-2024zoster vaccine, liveDavid Lyn DO Work Phone: [phone] [place], [place] 3720701-09-2024Prevnar 20 Rin Nicholson Other [facility]12-22-2023COVID-19 Moderna (SPIKEVAX)Rin Nicholson Other [facility]12-22-2023zoster vaccine recombinantDaviwiley Nicholson Other [facility]12-05-2023Fluzone QIV High-Dose 65YR+Rin Nicholson DO Work Phone: [phone]12-05-2023Flu Shot - Documentation Purposes OnlyDaandres Nicholson Other [facility]10-24-2022Shingrix 50 MCG/0.5ML; 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: [Shingrix 50 MCG/0.5ML]Rin Nicholson Other [place] Other 581308-84-3622dfxmvedke, seasonal, injectableDavid Lyn Other [facility]09-30-2022COVID-19 Pfizer (bivalent)Rin Nicholson Other [facility]09-30-2022Fluzone QIV High-Dose 65YR+Rin Nicholson DO Work Phone: [facility]04-15-2022COVID-19 Vaccine Moderna - Documentation Purposes OnlyDaandres Nicholson Other [facility]11-05-2021COVID-19 Vaccine Moderna - Documentation Purposes OnlyDaviwiley Nicholson Other [facility]10-09-2021Influenza vaccine, quadrivalent, adjuvantedDavid Lyn DO Work Phone: [phone]04-10-2021COVID-19 ModernaDavid Lyn Other [facility]03-13-2021COVID-19 ModernaDavid Girvin Other [facility]11-02-2020influenza, seasonal, injectableDavid Girvin Other [facility]10-02-2020influenza, injectable, quadrivalent, preservative freeDavid Girvin DO Work Phone: [phone] [place], [place] 3720711-04-2017influenza, seasonal, injectableDavid Girvin Other [address] [place], [place] 3720711-04-2017influenza, injectable, quadrivalent, preservative freeDavid Girvin DO Work Phone: [phone]11-21-2016influenza, seasonal, injectableDavid Girvin Other [address] [place], [place] 3720701-20-2014influenza virus vaccine, split virus (incl. purified surface antigen)Rin Lyn Other [facility] Other 051884-08-2981xbnjoyhra virus vaccine, unspecified formulationDavid Girvin DO Work Phone: [phone]12-07-2012influenza, seasonal, injectable, preservative freeDavid Girvin Other [facility] Payers DatePayer CategoryPayerPolicy [id number] 2023Medicare (Managed Care) [id number] [id number] [id number] 16.840.3.171665.3792-01-2023 [place] [address] [id number] [id number] 2.16.840.1.952415.3.579.2.15734-42-4401Mwdnwvw [id number] 2.16840.1.591863.3.57[id number] 2.16.840.1.578487.3.57[id number] 2.16840.1.653149.3.57[id number] 2.16840.1.848835.3.57[id number] 2.16.840.1.026802.3.57[id number] 2.16840.1.942042.3.57[id number] 2.16840.1.514694.3.57[id number] 2.16.840.1.212945.3.57[id number] 2.16.840.1.685041.3.57[id number] 2.16840.1.024067.3.57[id number] 2..840.1.577065.3.57[id number] 2..840.1.239245.3.57[id number] 2..840.1.879055.3.57[id number] 2..840.1.038837.3.579.2.1259Self-paySelf Pay [id number] Social History DateTypeDetailFacilityUnknown if ever smokedNoranken j[facility] Other Start: 02-20-2024 End: 03-78-5820Mao Assigned At [facility] Other Start: 56-15-3215Pnc Assigned At [facility]: 06-02-2020 End: 91-59-4545Stuvtwq smoking status NHISNever smoked tobacco (finding) [facility]tart: 46-59-3554YzbAciycjf sex unknown (finding)[facility] Hospitaltart: 22-00-1243Gzbkzqd use and exposureSmokeless tobacco non-userNOMS HealthcareStart: 02-20-2024 End: 96-41-7926Irafizmis beverage intakeLifetime non-drinker (finding)[facility] HealthcareStart: 02-20-2024 End: 34-40-8741Glskjrn of Social functionNOMS HealthcareStart: 61-08-0767Jqp assigned at birthNot on fileNOMS HealthcareStart: 05-29-2024 End: 27-45-8850HyaHykusa (finding)[facility] Medical Equipment Procedure CodeEquipment CodeEquipment Original TextEquipment IdentifierDatesOne Touch Lancets lancetsStart: 81-24-4994tabimub (OneTouch Delica Plus Lancet) Start: 01-30-4426Lyfps Sugar Diagnostic (Onetouch Ultra Test) stripStart: 83-80-3412dqzczkf (OneTouch Delica Plus Lancet)Start: 18-96-0935Ekf Touch Ultra Blue in Vitro StripStart: 05-24-2024 End: 31-67-8340Fhgoy Sugar Diagnostic (Onetouch Ultra Test) stripStart: 78-34-7955ssbfjsy (OneTouch Delica Plus Lancet)Start: 80-40-2882Rnu Touch Ultra Blue in Vitro StripStart: 05-24-2024 End: 33-43-8143Dldzo Sugar Diagnostic (Onetouch Ultra Test) stripStart: 23-48-9677grpnxmw (OneTouch Delica Plus Lancet)Start: 64-94-5742Fsc Touch Ultra Blue in Vitro StripStart: 05-24-2024 End: 48-50-3393Voszg Sugar Diagnostic (Onetouch Ultra Test) stripStart: 37-08-8788whvcceo (OneTouch Delica Plus Lancet)Start: 34-23-6693Tnh Touch Ultra Blue in Vitro StripStart: 05-24-2024 End: 61-96-1842Ffmdt Sugar Diagnostic (Onetouch Ultra Test) stripStart: 63-39-9350oyoryol (OneTouch Delica Plus Lancet)Start: 57-87-2287Jxc Touch Ultra Blue in Vitro StripStart: 05-24-2024 End: 14-73-8215Obvzy Sugar Diagnostic (Onetouch Ultra Test) stripStart: 10-63-3576wnpenua (OneTouch Delica Plus Lancet)Start: 16-38-5264Dpk Touch Ultra Blue in Vitro StripStart: 05-24-2024 End: 21-16-7397Uzhzw Sugar Diagnostic (Onetouch Ultra Test) stripStart: 68-35-2825ixexxkx (OneTouch Delica Plus Lancet)Start: 68-60-0145Olf Touch Ultra Blue in Vitro StripStart: 05-24-2024 End: 53-20-4719Djlqa Sugar Diagnostic (Onetouch Ultra Test) stripStart: 93-62-9974htsigct (OneTouch Delica Plus Lancet)Start: 90-26-9327Ryy Touch Ultra Blue in Vitro StripStart: 05-24-2024 End: 14-73-7509Mmglo Sugar Diagnostic (Onetouch Ultra Test) stripStart: 89-67-3572adwwlyh (OneTouch Delica Plus Lancet)Start: 41-30-4607Qeo Touch Ultra Blue in Vitro StripStart: 05-24-2024 End: 78-70-9048Jpbpk Sugar Diagnostic (Onetouch Ultra Test) stripStart: 38-04-4564mwyyqzy (OneTouch Delica Plus Lancet)Start: 37-36-7912Ghq Touch Ultra Blue in Vitro StripStart: 05-24-2024 End: 07-67-3639Myfng Sugar Diagnostic (Onetouch Ultra Test) stripStart: 05-06-9038zuoeeuj (OneTouch Delica Plus Lancet)Start: 64-36-1350Imw Touch Ultra Blue in Vitro StripStart: 05-24-2024 End: 73-83-7105Flibv Sugar Diagnostic (Onetouch Ultra Test) stripStart: 74-54-9609tkpevaq (OneTouch Delica Plus Lancet)Start: 51-04-2917Sqw Touch Ultra Blue in Vitro StripStart: 05-24-2024 End: 37-30-0086Clmzx Sugar Diagnostic (Onetouch Ultra Test) stripStart: 62-86-2020knqfkkn (OneTouch Delica Plus Lancet)Start: 34-52-2564Olb Touch Ultra Blue in Vitro StripStart: 05-24-2024 End: 05-24-2024 Goals DatePatient GoalDesired Activity/State Clinical Notes 02-11-2019 to 12-06-2024 Note Date & NewxXckxVymxzqke02-21-1014 History of Present illness Narrative* Nae Argueta MD - 12/06/2024 10:00 AM EDT Leslee Nevarez is a 68 y.o. female No ref. provider found presents with chief complaint of Thyroid Problem HPI: IM 11/2024 Follow up visit on 12/06/2024, currently on methimazole 5 mg 5 days a week, lab done TSH 2.5 , free T3 2.6 ( 2.18-3.98), free T4 1.24 ( 0.76-1.4) IM 05/2024 Follow up visit on 06/07/2024, currently on methimazole 5 mg 6 days a week, lab done TSH 4.503 , free T3 2.53 ( 2.18-3.98), free T4 1.08 ( 0.76-1.4) IM 02/2024 Follow up visit on 02/25/2024, [...] SUBJECTIVE: MEDICATIONS: Current Outpatient Medications Medication Instructions atorvastatin (LIPITOR) 10 mg, Daily cyanocobalamin (VITAMIN B-12) 500 mcg, Daily glimepiride (AMARYL) 1 mg, Daily before breakfast hydroCHLOROthiazide (HYDRODIURIL) 12.5 mg, Daily lisinopril 20 MG tablet Daily Magnesium Glycinate 100 mg, Daily methIMAzole (Tapazole) 5 MG tablet TAKE ONE TABLET BY MOUTH DAILY FOR 6 DAYS OF THE WEEK metoprolol succinate XL (TOPROL-XL) 25 mg, Oral, Daily omeprazole (PRILOSEC) 40 mg, Daily before breakfast pioglitazone (ACTOS) 30 mg, Daily ALLERGIES: No Known Allergies Past Medical History: Diagnosis Date Anemia Breast cancer (HCC) DM type 2 (diabetes mellitus, type 2) (HCC) GERD (gastroesophageal reflux disease) Hypercalcemia Hyperlipidemia Hypertension Leukocytosis Ovarian tumor Stage 3 chronic kidney disease, unspecified whether stage 3a or 3b CKD (CMS-HCC) Thyrotoxicosis with toxic multinodular goiter without thyrotoxic crisis or storm Thyrotoxicosis, unspecified without thyrotoxic crisis or storm Past Surgical History: Procedure Laterality Date CERVICAL FUSION COLONOSCOPY HYSTERECTOMY LITHOTRIPSY OVARY SURGERY TONSILLECTOMY REVIEW OF SYMPTOMS: 14 POINT OF SYSTEM REVIEWED AND NEGATIVE OBJECTIVE: Visit Vitals Pulse 70 Resp 16 Ht 4' 11 Wt 164 lb SpO2 99% BMI 33.12 kg/m OB Status Hysterectomy Smoking Status Never BSA 1.76 m Physical Exam Constitutional: Appearance: Normal appearance. [...] with diffuse 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 - T3, free; Future - T4, free; Future - TSH; Future - Hepatic function panel; Future C/o her methimazole further to 5 mg 5 days a week, we will check lab before next visit in 6 months and adjust. Graves disease She wants to continue with medication so far Follow up in about 6 months (around 06/08/2025). documented in this encounterCox Walnut LawnWenwlhqjoj07-74-8483 Evaluation note* Diagnosis Onset Date Resolution Status Admit Date Anemia of renal disease acuteAugust 2024 11:43amChronic kidney disease, stage 3bacuteAugust 2024 11:43amDiabetic nephropathy associated with type 2 diabetes mellitusacute November 20, 2024 11:43amHyperkalemiaacuteAugus2024 11:43amHypertensive nephropathyacuteAugust 2024 11:43amHyperthyroidismacuteAugust 2024 11:43amHypomagnesemiaacuteAugust 2024 11:43amHyponatremiaacuteAugust 2024 11:43amVitamin B12 deficiencyacuteAugust 2024 11:43am [facility] Work Phone: 1(809) 608-961007-10-2025 Evaluation note* Author Jacklyn [facility] HospitalAuthoredOctober 2024 9:65fh90-srml-syz female with MASLD and hemangioma came today for follow-up Ultrasound few month ago showed 1.1 cm liver lesion and hepatic steatosis. CT on 06/28/24 showed Fatty liver with left hepatic lobe lesion within the dome measuring 2 cm in size most suggestive of a hemangioma. MRI on 01/14/25 showed HEMANGIOMA SEGMENT 2 OF THE LIVER SEEN ON THE PRIOR CT STUDY. NO SINISTER LIVER LESION IS SEEN ALP is 136 otherwise rest of liver enzymes are normal. Antimitochondrial antibodies are normal Nuclear bone scan showed signs of mild degenerative joint uptake otherwise it was unremarkable Viral hepatitis serologies are negative. Fibroscan on 06/28/2024 showed LSM: 4.8 and CAP 239 -Patient was counseled about weight loss, Mediterranean diet and exercise [facility] Work Phone: 1(396) 944-556307-10-2025 History of Present illness Narrative* LOREN Sharma - 10/25/2024 10:00 AM EDT [...] DM type 2 (diabetes mellitus, type 2) ([facility]) GERD (gastroesophageal reflux disease) Hypercalcemia Hyperlipidemia Hypertension Leukocytosis Ovarian tumor Stage 3 chronic kidney disease, unspecified whether stage 3a or 3b CKD ([facility]) Thyrotoxicosis with toxic multinodular goiter without thyrotoxic crisis or storm HISTORY PAST MEDICAL HISTORY SOCIAL HISTORY Past Medical History: Diagnosis Date Anemia Breast cancer (HCC) DM type 2 (diabetes mellitus, type 2) (HCC) GERD (gastroesophageal reflux disease) Hypercalcemia Hyperlipidemia Hypertension Leukocytosis Ovarian tumor Stage 3 chronic kidney disease, unspecified whether stage 3a or 3b CKD ([facility]) Thyrotoxicosis with toxic multinodular goiter without thyrotoxic [...] nursing note reviewed. Exam conducted with a special education professor present. 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 09/13/2024 12:25 PM Dictation Location: [facility] Tech: Janette Osei Transcribed By: CANDACE 09/13/241224 Dictated By: Turner Harrell DO 09/13/24 1220 Signed By: 09/13/24 1225 [facility]05-19-2025 Evaluation note* Author Rin Nicholson [facility] CenterAuthoredMay 2024 10:29amThe above note written by ___Wilmer Helm____ acting as human recorder, note dictated by Dr. Castro .I performed the above HPI, ROS, and Examination. I formulated and dictated the treatment plan and was present for entire encounter. Rin Nicholson D.O. Author Jacklyn Heard [facility] CenterAuthodameron hospitalApril 2024 9:75hy49-yown-bgi female referred to the GI clinic for [...] - Will check AMA and ALP isoenzymes [facility] Work Phone: 1(995) 746-986405-19-2025 Evaluation note* Author Rin Nicholson [facility] CenterAuthoredAly 2024 10:29amThe above note written by ___Wilmer Helm____ acting as human recorder, note dictated by Dr. Castro .I performed the above HPI, ROS, and Examination. I formulated and dictated the treatment plan and was present for entire encounter. Rin Nicholson D.O. [facility] Work Phone: 1(144) 272-445804-25-2025 Nuclear medicine Diagnostic study note [facility] [address] Nuclear Medicine Report Signed Patient: Leslee Nevarez MR#: [id number] : 1955 Acct:[id number] Age/Sex: 68 / F ADM Date: 5 Loc: [place] Room: Type: [facility] Attending Dr: Jacklyn Heard MD Copies to: [...] Cuevas M.D. 08/10/2024 3:42 PM Dictation Location: [id number] Transcribed By: [facility] 08/10/24 1542 Dictated By: Carmela Cuevas MD 08/10/24 1536 Signed By: 08/10/24 1542 [facility] Work Phone: 1(823) 962-823702-20-2025 History of Present illness Narrative* Nae Argueta MD - 06/07/2024 9:30 AM EST Leslee Nevarez is a 68 y.o. female No ref. provider found presents with chief complaint of Thyroid Problem HPI: IM 05/2024 Follow up visit on 06/07/2024, currently on methimazole 5 mg 6 days a week, lab done TSH 4.503 , free T3 2.53 ( 2.18-3.98), free T4 1.08 ( 0.76-1.4) IM 02/2024 Follow up visit on 02/25/2024, [...] 6 months (around 12/05/2024). documented in this encounterCox Walnut LawnBluxfabqhx53-82-5428 Evaluation note* Author Rin Nicholson [facility] 2024 11:40amThe above note written by ___Wilmer Helm____ acting as human recorder, note dictated by Dr. Castro .I performed the above HPI, ROS, and Examination. I formulated and dictated the treatment plan and was present for entire encounter. Rin Nicholson D.O. Author Jacklyn Heard [facility] 2024 12:74qg68-esos-jkt female referred to the GI clinic for evaluation of fatty liver and epigastric pain +epigastric pain for 2 weeks which have resolved spontaneously. Ultrasound few month ago showed 1.1 cm liver lesion and hepatic steatosis. Will check liver enzymes. Will check viral hepatitis serologies. Will arrange for FibroScan. Will arrange for triphasic CT to evaluate the liver lesion. [facility] Work Phone: 1([phone]) 304-114202-18-2025 Evaluation note* Author Rin Nicholson [facility] 2024 11:40amThe above note written by ___Wilmer Helm____ acting as human recorder, note dictated by Dr. Castro .I performed the above HPI, ROS, and Examination. I formulated and dictated the treatment plan and was present for entire encounter. Rin Nicholson D.O. Author [facility] 2024 12:67wm06-kylw-kyu female referred to the GI clinic for evaluation of fatty liver and epigastric pain +epigastric pain for 2 weeks which have resolved spontaneously. Ultrasound few month ago showed 1.1 cm liver lesion and hepatic steatosis. Will check liver enzymes. Will check viral hepatitis serologies. Will arrange for FibroScan. Will arrange for triphasic CT to evaluate the liver lesion. Author julianne [facility] 2024 9:53ry71-sjle-bjh female referred to the GI clinic for [...] - Will check AMA and ALP isoenzymes [facility] Work Phone: 1(654) 722-465202-18-2025 Evaluation note* Author Rin Nicholson [facility] 2024 10:40amThe above note written by ___Wilmer Helm____ acting as human recorder, note dictated by Dr. Castro .I performed the above HPI, ROS, and Examination. I formulated and dictated the treatment plan and was present for entire encounter. Rin Nicholson D.O. [facility] Work Phone: 1([phone]) 739-672702-18-2025 Evaluation note* Author Rin Nicholson [facility] 2024 10:40amThe above note written by ___Wilmer Helm____ acting as human recorder, note dictated by Dr. Castro .I performed the above HPI, ROS, and Examination. I formulated and dictated the treatment plan and was present for entire encounter. Rin Nicholson D.O. Author Jacklyn Orquidea [facility] 2024 11:36hj69-wnto-nkh female referred to the GI clinic for evaluation of fatty liver and epigastric pain +epigastric pain for 2 weeks which have resolved spontaneously. Ultrasound few month ago showed 1.1 cm liver lesion and hepatic steatosis. Will check liver enzymes. Will check viral hepatitis serologies. Will arrange for FibroScan. Will arrange for triphasic CT to evaluate the liver lesion. [facility] Work Phone: [phone]) 514-457402-10-2025 Radiology Diagnostic study [facility] [place] [address] Ultrasound Report Signed Patient: Leslee Nevarez MR#: [id number] : 1955 Acct:[id number] Age/Sex: 68 / F ADM Date: 5 Loc: Room: Type: [facility] Attending Dr: Barbara Franklin MD Ordering Provider: [...] Thornton Jr., D.O.05/28/2024 2:52 PM Dictation Location: [place] [address] Tech: Starla Funk Transcribed By: CANDACE 05/28/241451 Dictated By: Carlos Alberto Thornton Jr, DO 05/28/241449 Signed By: 05/28/24 145 [facility]11-19-2024 History of Present illness Narrative * Nae [...] 4 months (around 07/04/2024). documented in this encounterCox Walnut LawnHiweojnebf33-50-8412 Nuclear medicine Diagnostic study [facility] [place] [address] [place] [address] Nuclear Medicine Report Signed Patient: Leslee Nevarez MR#: [id number] : 1955 Acct:[id number] Age/Sex: 68 / F ADM Date: 4 Loc: [place] Room: Type: [facility] Attending Dr: Eddie Urias MD Copies to: Eddie Urias MD, [facility] Ryne Johnson MD~ Ordering Provider: Eddie Urias MD, [facility] Date of Service: 03/02/24 NM/NM heaven [...] study available for comparison. Transcribed By: RACHEL 03/02/246 Dictated By: Ryne Johnson MD 03/02/24 9696 Signed By: 03/03/24 8249 [facility] Work Phone: [phone] Evaluation note* Author Rin Nicholson [facility] CenterAuthoredOctober 2023 12:16pmThe above note written by ___Wilmer Helm____ acting as human recorder, note dictated by Dr. Castro .I performed the above HPI, ROS, and Examination. I formulated and dictated the treatment plan and was present for entire encounter. Rin Nicholson D.O. [facility] Work Phone: 1(211) 526-860901-16-2024 Evaluation note* Encounter Date Diagnosis Assessment Notes Treatment Notes Treatment Clinical Notes Apr, GERD (gastroesophageal reflux di sease) (ICD-10 - K21.9) [facility] Other 2023 Evaluation note* Encounter Date Diagnosis Assessment Notes Treatment Notes Treatment Clinical Notes Mar, Abnormal blood chemistry (ICD-10 - R79.9) Mar,Hypercalcemia (ICD-10 - E83.52) Mar,Stage 3a chronic kidney disease (ICD-10 - N18.31) [facility] Other 06-09-2023 Evaluation note* Encounter Date Diagnosis Assessment Notes Treatment Notes Treatment Clinical Notes Sep, Diabetes mellitus, type 2 (ICD-1 0 - E11.9) She voices that she is [...] Januvia that we could consider if needed. Sep,Other abnormal blood chemistry (ICD-10 - R79.89)Will repeat lab today to see where her kidney studies are at. [facility] Other 04-24-2023 Evaluation note* Encounter Date Diagnosis Assessment Notes Treatment Notes Treatment Clinical Notes Jul, Hyperlipidemia (ICD-10 - E78.5) Discussed cholesterol results with patient today. Total is 166. HDL is 57. LDL is 91.4. Triglycerides are 88. VLDL is 17.6. Encouraged her to continue with above medication daily. Watch intake of carbs and sugars. Stay active. Jul,iabetes mellitus, type 2 (ICD-10 - E11.9)Discussed blood sugar results with patient today. Glucose is 102. HgA1C is up from 6.4 to 6.5. Because of her kidney studies I am going to stop the Metformin. I highly encouraged her to watch her intake of carbs and sugars to help keep her A1C level good. If her kidney studies improve then we may place her on a low dose of Metformin. Jul,Other abnormal blood chemistry (ICD-10 - R79.89)We discussed that her kidney studies are abnormal and this is likely caused by the Meloxicam. She admits she was taking it quite often because of her right shoulder pain but most recently she has notbeen taking it as much. Her BUN is 21.0. Creatinine is 1.48. EGFR is 35. She saw Dr. Cm in nd did not need to see him again [...] results. She may have to see the pier hand helper again but we will wait and see what her kidney studies show next week when she has these rechecked. Jul,Hypertension (ICD-10 - I10)For now she is to continue with the above medications daily as directed. Jul,nemia (ICD-10 - D64.9)She is anemic at this time but this is likely due to her abnormal kidney studies. Her HGB has gone down from 12.4 to 11.5. Jul,ERD (gastroesophageal reflux disease) (ICD-10 - K21.9)Continue with above medication daily as directed. Jul,Vitamin B12 deficiency (ICD-10 - E53.8)Her Vitamin B12 level is 600. Her Folate is >20.0. Jul,Weight gain (ICD-10 - R63.5)Her TSH is 2.298 at this time. Jul,Shoulder pain, right (ICD-10 - M25.511)She takes the Meloxicam for her shoulder. At [...] ice the shoulder or alternate with heat. [facility] Other 01-05-2023 Evaluation note* Encounter Date Diagnosis Assessment Notes Treatment Notes Treatment Clinical Notes Apr, Hypertension (ICD-10 - I10) [facility] Other 10-24-2022 Evaluation note* Encounter Date Diagnosis Assessment Notes Treatment Notes Treatment Clinical Notes Jan, Hyperlipidemia (ICD-10 - E78.5) Discussed cholesterol results with patient today. Total is 165. HDL is 66. LDL is 87.8. Triglycerides are 56. VLDL is 11.2. She is encouraged to conitnue with above medication. Watch intake of carbs and sugars. Stay active. Jan,iabetes mellitus, type 2 (ICD-10 - E11.9)Discussed blood sugar results with patient today. Glucose is 141. HgA1C is down to 6.4. She is to co ntinue to monitor her intake of carbs and sugars. Stay active. Continue with above medications. Shevoices that she gave up tamales. Jan,Hypertension (ICD-10 - I10)Blood pressure is controlled, continue with above medication. Jan,nemia (ICD-10 - D64.9) 24 Oct, 2022Other abnormal blood chemistry (ICD-10 - R79.89)She has been taking Ibuprofen for her right shoulder pain for about a month, alternating with Tyleno l. I did advise her that her kidneys do not like Ibuprofen and I suspect this is why her kidney studies are abnormal. Her BUN is 19. Creatinine is 1.17. EGFR is 46. I did recommend that she stay wellhydrated daily with plenty of water. I would like her to stop taking Ibuprofen and instead continuewith the Tylenol if needed. I would like to repeat lab in February-early March (2021). She can ca ll for results. Jan,houlder pain, right (ICD-10 - M25.511)She had right shoulder surgery ten years ago per Dr. Aggarwal who has since retired. I did advise her that Dr. Cornejo or Viki are still available. I would like her to see someone about her shoulder. She voices that the original injury was a workers comp injury but it and the claim has closed.This is not a work injury so she can see ortho for this. She does agree to see an clinical product specialist. A referral is provided. Her range of motion is similar to what it was but it is painful. She is right hand dominant. Jan,Vitamin B12 deficiency (ICD-10 - E53.8)Her Vitamin B12 level is 786. Folate is 21.80. She is to continue with the B12 vitamins. 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 Jean any longer unless needed. Dr. Jean felt that this office could order her mammogram for her. [facility] provide [facility] with [facility], she is due in August (2022) Jan,GERD (gastroesophageal reflux disease) (ICD-10 - K21.9)Continue with above medication daily as directed. Jan,Nocturia (ICD-10 - R35.1) Jan,Weight gain (ICD-10 - R63.5) Jan,therProvided her with an order for a Shingrix vaccine [facility] Other 02-01-2021 History general Narrative - Reported* Type Description Date Medical History Stress Test; [facility], normal per patient Medical HistoryPap and Pelvic 3 years ago, OBGYN in [facility] History Mammogram over 5 years; Normal at that time per patientMedical HistoryCT Abdomen and Pelvis over 5 years ago; [facility] HistoryColonoscopy 8 years ago; in [place], normal in patientMedical HistoryChest X-Ray 12-15-11; normal, [facility] HistoryEchocardiogram; 12-16-11; [facility] HistoryCardiolite Stress Test 12-16-11; [facility] sugar's bidMedical HistoryHeart Catherization; [facility] Historybreast cancer 04/2014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, status post lumpectomy x2, sentinel lymph node biopsy and adjuvant radiotherapy that concluded on 4-6-16Ddocvgv History11/2016 diabetic shifting [facility] age 21Surgical History ovarian tumor removed and left ovarySurgical Historycomplete [id number] Surgical HistoryHeart Catherization; [facility]Pdc[facility]iy07-4910Choiqhtc HistoryRight Shoulder Tear and bone spur removal; [facility] Surgical HistoryLeft Shoulder Rotator Cuff repair and bicep repair Dr. Aggarwal 2-53-00Csehxdar HistoryUS on left breast - non cancerous - Dr Hoang/ Surgical Historyleft breast DCIS status post lumpectomy x2 Dr. Misha Jamison 05/2014 and 06/2014Surgical HistoryColonoscopy, Dr. Jamison- Needs repeat in 10 2025 / Ojlxjwhhxnmclu3-5-82Owhpupgt HistoryLithotripsy for a kidney stone sSurgical Historymammogram [facility]04/2017Surgical Historyvertabrae fusion 08/2018Hospitalization Historyovarian tumor removed and left overy Hospitalization Historycomplete [id number] [facility] Other 01-19-2021 History general Narrative - Reported* Type Description Date Medical History Stress Test; [facility], normal per patient Medical HistoryPap and Pelvic 3 years ago, OBGYN in [facility] History Mammogram over 5 years; Normal at that time per patientMedical HistoryCT Abdomen and Pelvis over 5 years ago; [facility] HistoryColonoscopy 8 years ago; in [place], normal in patientMedical HistoryChest X-Ray 12-15-11; normal, [facility] HistoryEchocardiogram; 12-16-11; [facility] HistoryCardiolite Stress Test 12-16-11; [facility] sugar's bidMedical HistoryHeart Catherization; [facility] Historybreast cancer 04/2014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, status post lumpectomy x2, sentinel lymph node biopsy and adjuvant radiotherapy that concluded on 6-6-12Mduwncd History11/2016 diabetic shifting in rt [facility]Tons[facility]lect[facility] age 21Surgical History ovarian tumor removed and left ovarySurgical Historycomplete [id number] Surgical HistoryHeart Catherization; [facility] HospitalAittszzz14-8709Nliarolj HistoryRight Shoulder Tear and bone spur removal; [facility] Surgical HistoryLeft Shoulder Rotator Cuff repair and bicep repair Dr. Aggarwal 4-45-08Qjjyccyg HistoryUS on left breast - non cancerous - Dr Hoang/ Surgical Historyleft breast DCIS status post lumpectomy x2 Dr. Misha Jamison 05/2014 and 06/2014Surgical HistoryColonoscopy, Dr. Jamison- Needs repeat in 10 2025 / Umzbbjqzmuzppd6-7-86Uwdejiqe HistoryLithotripsy for a kidney stone sSurgical Historymammogram [facility]04/2017Surgical Historyvertabrae fusion 08/2018Hospitalization Historyovarian tumor removed and left overy Hospitalization Historycomplete [id number] [facility] Other 12-27-2020 History general Narrative - Reported* Type Description Date Medical History Stress Test; [facility], normal per patient Medical HistoryPap and Pelvic 3 years ago, OBGYN in [facility] History Mammogram over 5 years; Normal at that time per patientMedical HistoryCT Abdomen and Pelvis over 5 years ago; [facility] HistoryColonoscopy 8 years ago; in [place], normal in patientMedical HistoryChest X-Ray 12-15-11; normal, [facility] HistoryEchocardiogram; 12-16-11; [facility] HistoryCardiolite Stress Test 12-16-11; [facility] sugar's bidMedical HistoryHeart Catherization; [facility] Historybreast cancer 04/2014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, status post lumpectomy x2, sentinel lymph node biopsy and adjuvant radiotherapy that concluded on 3-3-82Tmkxwgs History11/2016 diabetic shifting in rt [facility] age 21Surgical History ovarian tumor removed and left ovarySurgical Historycomplete [id number] Surgical HistoryHeart Catherization; [facility] HospitalShenenci70-1836Czxxoreg HistoryRight Shoulder Tear and bone spur removal; [facility] Surgical HistoryLeft Shoulder Rotator Cuff repair and bicep repair Dr. Aggarwal 8-32-57Gxgkkumf HistoryUS on left breast - non cancerous - Dr Hoang/ Surgical Historyleft breast DCIS status post lumpectomy x2 Dr. Misha Jamison 05/2014 and 06/2014Surgical HistoryColonoscopy, Dr. Jamison- Needs repeat in 10 2025 / Ndvwsilobueipj3-4-70Jtkjjtwd HistoryLithotripsy for a kidney stone sSurgical Historymammogram [facility] [place] [facility]04/2017Surgical Historyvertabrae fusion 08/2018Hospitalization Historyovarian tumor removed and left overy Hospitalization Historycomplete [id number] [facility] Other 12-20-2020 History general Narrative - Reported* Type Description Date Medical History Stress Test; [facility], normal per patient Medical HistoryPap and Pelvic 3 years ago, OBGYN in [facility] History Mammogram over 5 years; Normal at that time per patientMedical HistoryCT Abdomen and Pelvis over 5 years ago; [facility] HistoryColonoscopy 8 years ago; in [place], normal in patientMedical HistoryChest X-Ray 12-15-11; normal, [facility] HistoryEchocardiogram; 12-16-11; [facility] HistoryCardiolite Stress Test 12-16-11; [facility] sugar's bidMedical HistoryHeart Catherization; [facility] Historybreast cancer 04/2014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, status post lumpectomy x2, sentinel lymph node biopsy and adjuvant radiotherapy that concluded on 5-3-05Eaiaxpt History11/2016 diabetic shifting in rt [facility] age 21Surgical History ovarian tumor removed and left ovarySurgical Historycomplete [id number] Surgical HistoryHeart Catherization; [facility] HospitalFzrnpyke34-1073Rpramutb HistoryRight Shoulder Tear and bone spur removal; [facility] Surgical HistoryLeft Shoulder Rotator Cuff repair and bicep repair Dr. Aggarwal 0-99-53Rjyziilo HistoryUS on left breast - non cancerous - Dr Hoang/ Surgical Historyleft breast DCIS status post lumpectomy x2 Dr. Misha Jamison 05/2014 and 06/2014Surgical HistoryColonoscopy, Dr. Jamison- Needs repeat in 10 2025 / Ffdxtrsttqtjif5-0-88Bmychqxh HistoryLithotripsy for a kidney stone sSurgical Historymammogram [facility] [place]04/2017Surgical Historyvertabrae fusion 08/2018Hospitalization Historyovarian tumor removed and left overy Hospitalization Historycomplete [id number] [facility] Other 12-04-2020 History general Narrative - Reported* Type Description Date Medical History Stress Test; [facility], normal per patient Medical HistoryPap and Pelvic 3 years ago, OBGYN in [facility] History Mammogram over 5 years; Normal at that time per patientMedical HistoryCT Abdomen and Pelvis over 5 years ago; [facility] HistoryColonoscopy 8 years ago; in [place], normal in patientMedical HistoryChest X-Ray 12-15-11; normal, [facility] HistoryEchocardiogram; 12-16-11; [facility] HistoryCardiolite Stress Test 12-16-11; [facility] sugar's bidMedical HistoryHeart Catherization; [facility] Historybreast cancer 04/2014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 Aggarwal 6-23-87Nideagou HistoryUS on left breast - non cancerous - Dr Hoang/ Surgical Historyleft breast DCIS status post lumpectomy x2 Dr. Misha Jamison 05/2014 and 06/2014Surgical HistoryColonoscopy, Dr. Jamison- Needs repeat in 10 2025 / Hqkdfvmncoebhq9-7-36Fsynlcrx HistoryLithotripsy for a kidney stone sSurgical Historymammogram FR04/2017Surgical Historyvertabrae fusion 08/2018Hospitalization Historyovarian tumor removed and left overy Hospitalization Historycomplete [id number] [employer] Other 11-08-2020 History general Narrative - Reported* Type Description Date Medical History Stress Test; [facility] normal per patient Medical HistoryPap and Pelvic 3 years ago, OBGYN in [facility] History Mammogram over 5 years; Normal at that time per patientMedical HistoryCT Abdomen and Pelvis over 5 years ago; [facility] HistoryColonoscopy 8 years ago; [place], normal in patientMedical HistoryChest X-Ray 12-15-11; normal, [facility] HistoryEchocardiogram; 12-16-11; [facility] HistoryCardiolite Stress Test 12-16-11; [facility] sugar's bidMedical HistoryHeart Catherization; [facility] Historybreast cancer 04/2014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 Aggarwal 7-61-62Pijjrtuw HistoryUS on left breast - non cancerous - Dr Hoang/ Surgical Historyleft breast DCIS status post lumpectomy x2 Dr. Misha Jamison 05/2014 and 06/2014Surgical HistoryColonoscopy, Dr. Jamison- Needs repeat in 10 2025 / Mbygjkwvhvfdlu1-8-27Wygkayqn HistoryLithotripsy for a kidney stone sSurgical Historymammogram FR04/2017Surgical Historyvertabrae fusion 08/2018Hospitalization Historyovarian tumor removed and left overy Hospitalization Historycomplete [id number] [employer] Other 06-20-2020 History general Narrative - Reported* Type Description Date Medical History Stress Test; [facility] normal per patient Medical HistoryPap and Pelvic 3 years ago, OBGYN in [facility] History Mammogram over 5 years; Normal at that time per patientMedical HistoryCT Abdomen and Pelvis over 5 years ago; [facility] HistoryColonoscopy 8 years ago; [place], normal in patientMedical HistoryChest X-Ray 12-15-11; normal, [facility] HistoryEchocardiogram; 12-16-11; [facility]; [facility] sugar's bidMedical HistoryHeart Catherization; [facility] Historybreast cancer 04/2014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 Aggarwal 2-89-70Kmxokbyr HistoryUS on left breast - non cancerous - Dr Hoang/ Surgical Historyleft breast DCIS status post lumpectomy x2 Dr. Misha Jamison 05/2014 and 06/2014Surgical HistoryColonoscopy, Dr. Jamison- Needs repeat in 10 2025 / Sjurmlnrvyeafb3-2-23Auxxekik HistoryLithotripsy for a kidney stone sSurgical Historymammogram FR04/2017Surgical Historyvertabrae fusion 08/2018Hospitalization Historyovarian tumor removed and left overy Hospitalization Historycomplete [id number] [employer] Other 05-03-2020 History general Narrative - Reported* Type Description Date Medical History Stress Test; [facility] normal per patient Medical HistoryPap and Pelvic 3 years ago, OBGYN in [facility] History Mammogram over 5 years; Normal at that time per patientMedical HistoryCT Abdomen and Pelvis over 5 years ago; [facility] HistoryColonoscopy 8 years ago; [place], normal in patientMedical HistoryChest X-Ray 12-15-11; normal, [facility] HistoryEchocardiogram; 12-16-11; [facility] HistoryCardiolite Stress Test 12-16-11; [facility] sugar's bidMedical HistoryHeart Catherization; [facility] Historybreast cancer 04/2014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 Aggarwal 2-40-19Jjulqrbt HistoryUS on left breast - non cancerous - Dr Hoang/ Surgical Historyleft breast DCIS status post lumpectomy x2 Dr. Misha Jamison 05/2014 and 06/2014Surgical HistoryColonoscopy, Dr. Jamison- Needs repeat in 10 2025 / Zepsdfedgznlaa8-7-13Rdtgxiot HistoryLithotripsy for a kidney stone sSurgical Historymammogram FR04/2017Surgical Historyvertabrae fusion 08/2018Hospitalization Historyovarian tumor removed and left overy Hospitalization Historycomplete [id number] [employer] Other 04-26-2020 History general Narrative - Reported* Type Description Date Medical History Stress Test; [facility] normal per patient Medical HistoryPap and Pelvic 3 years ago, OBGYN in [facility] History Mammogram over 5 years; Normal at that time per patientMedical HistoryCT Abdomen and Pelvis over 5 years ago; [facility] HistoryColonoscopy 8 years ago; [place], normal in patientMedical HistoryChest X-Ray 12-15-11; normal, [facility] HistoryEchocardiogram; 12-16-11; [facility] HistoryCardiolite Stress Test 12-16-11; [facility] sugar's bidMedical HistoryHeart Catherization; [facility] Historybreast cancer 04/2014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 Aggarwal 9-76-03Exsgfqza HistoryUS on left breast - non cancerous - Dr Hoang/ Surgical Historyleft breast DCIS status post lumpectomy x2 Dr. Misha Jamison 05/2014 and 06/2014Surgical HistoryColonoscopy, Dr. Jamison- Needs repeat in 10 2025 / Emgczmykfqgzyp3-5-15Fkcdmmlz HistoryLithotripsy for a kidney stone sSurgical Historymammogram FR04/2017Surgical Historyvertabrae fusion 08/2018Hospitalization Historyovarian tumor removed and left overy Hospitalization Historycomplete [id number] [employer] Other 04-21-2020 History general Narrative - Reported* Type Description Date Medical History Stress Test; [facility], normal per patient Medical HistoryPap and Pelvic 3 years ago, OBGYN in [facility] History Mammogram over 5 years; Normal at that time per patientMedical HistoryCT Abdomen and Pelvis over 5 years ago; [facility] HistoryColonoscopy 8 years ago; [place], normal in patientMedical HistoryChest X-Ray 12-15-11; normal, [facility] HistoryEchocardiogram; 12-16-11; [facility]; [facility] sugar's bidMedical HistoryHeart Catherization; [facility] Historybreast cancer 04/2014Medical History dx 2014 w/ 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 Aggarwal 1-56-82Sgnbarzf HistoryUS on left breast - non cancerous - Dr Hoang/ Surgical Historyleft breast DCIS status post lumpectomy x2 Dr. Misha Jamison 05/2014 and 06/2014Surgical HistoryColonoscopy, Dr. Jamison- Needs repeat in 10 nrmei1-1-51Olfqykmb HistoryLithotripsy for a kidney svdfm2334'sSurgical History mammogram FR04/2017Surgical Historyvertabrae /2019Hospitalization Historyovarian tumor removed and left overyHospitalization Historycomplete [id number] [employer] Other 03-12-2020 History general Narrative - Reported* Type Description Date Medical History Stress Test; [facility], normal per patient Medical HistoryPap and Pelvic 3 years ago, OBGYN in [facility] History Mammogram over 5 years; Normal at that time per patientMedical HistoryCT Abdomen and Pelvis over 5 years ago; [facility] HistoryColonoscopy 8 years ago; [place], normal in patientMedical HistoryChest X-Ray 12-15-11; normal, [facility] HistoryEchocardiogram; 12-16-11; [facility] 12[facility]; [facility] sugar's bidMedical HistoryHeart Catherization; [facility] Historybreast cancer 04/2014Medical History dx 2014 w/ 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 Aggarwal 4-74-12Gvblamkg HistoryUS on left breast - non cancerous - Dr Hoang05/16/15 Surgical Historyleft breast DCIS status post lumpectomy x2 Dr. Misha Jamison 05/2014 and 06/2014Surgical HistoryColonoscopy, Dr. Jamison- Needs repeat in 10 olmqh4-3-22Wgquudpy HistoryLithotripsy for a kidney iikfi6569'sSurgical History mammogram FR04/2017Surgical Historyvertabrae yraydm63/2019Hospitalization Historyovarian tumor removed and left overyHospitalization Historycomplete [id number] [employer] Other 03-07-2020 History general Narrative - Reported* Type Description Date Medical History Stress Test; [facility], normal per patient Medical HistoryPap and Pelvic 3 years ago, OBGYN in [facility] History Mammogram over 5 years; Normal at that time per patientMedical HistoryCT Abdomen and Pelvis over 5 years ago; [facility] HistoryColonoscopy 8 years ago; [place], normal in patientMedical HistoryChest X-Ray 12-15-11; normal, [facility] HistoryEchocardiogram; 12-16-11; [facility] HistoryCardiolite Stress Test 12-16-11; [facility] sugar's bidMedical HistoryHeart Catherization; [facility] Historybreast cancer 04/2014Medical History dx 2014 w/ 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 Aggarwal 1-02-62Ifsxcayf HistoryUS on left breast - non cancerous - Dr Hoang/ Surgical Historyleft breast DCIS status post lumpectomy x2 Dr. Misha Jamison 05/2014 and 06/2014Surgical HistoryColonoscopy, Dr. Jamison- Needs repeat in 10 -0-26Ffgaooiz HistoryLithotripsy for a kidney dbdnr5850'sSurgical History mammogram [facility] [place]04/2017Surgical Historyvertabrae /2019Hospitalization Historyovarian tumor removed and left overyHospitalization Historycomplete [id number] [employer] Other 03-04-2020 History general Narrative - Reported* Type Description Date Medical History Stress Test; [facility], normal per patient Medical HistoryPap and Pelvic 3 years ago, OBGYN in [facility] History Mammogram over 5 years; Normal at that time per patientMedical HistoryCT Abdomen and Pelvis over 5 years ago; [facility] HistoryColonoscopy 8 years ago; [place], normal in patientMedical HistoryChest X-Ray 12-15-11; normal, [facility] HistoryEchocardiogram; 12-16-11; [facility] HistoryCardiolite Stress Test 12-16-11; [facility] sugar's bidMedical HistoryHeart Catherization; [facility] Historybreast cancer 04/2014Medical History dx 2014 w/ 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 Aggarwal 4-26-04Odxivsgj HistoryUS on left breast - non cancerous - Dr Hoang/ Surgical Historyleft breast DCIS status post lumpectomy x2 Dr. Misha Jamison 05/2014 and 06/2014Surgical HistoryColonoscopy, Dr. Jamison- Needs repeat in 10 ppitl5-2-94Cbphgfna HistoryLithotripsy for a kidney tmnhv8682'sSurgical History mammogram FR04/2017Surgical Historyvertabrae eslpcw95/2019Hospitalization Historyovarian tumor removed and left overyHospitalization Historycomplete [id number] [employer] Other 02-22-2020 History general Narrative - Reported* Type Description Date Medical History Stress Test; [facility], normal per patient Medical HistoryPap and Pelvic 3 years ago, OBGYN in [facility] History Mammogram over 5 years; Normal at that time per patientMedical HistoryCT Abdomen and Pelvis over 5 years ago; [facility] HistoryColonoscopy 8 years ago; [place], normal in patientMedical HistoryChest X-Ray 12-15-11; normal, [facility] HistoryEchocardiogram; 12-16-11; [facility] HistoryCardiolite Stress Test 12-16-11; [facility] sugar's bidMedical HistoryHeart Catherization; [facility] Historybreast cancer 04/2014Medical History dx 2014 w/ 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 Aggarwal 2-39-52Mmxytasb HistoryUS on left breast - non cancerous - Dr Hoang/ Surgical Historyleft breast DCIS status post lumpectomy x2 Dr. Misha Jamison 05/2014 and 06/2014Surgical HistoryColonoscopy, Dr. Jamison- Needs repeat in 10 sqfzo4-7-14Ylvduzdd HistoryLithotripsy for a kidney fumva3444'sSurgical History mammogram FR04/2017Surgical Historyvertabrae mokeig44/2019Hospitalization Historyovarian tumor removed and left overyHospitalization Historycomplete [id number] [employer] Other 02-12-2020 History general Narrative - Reported* Type Description Date Medical History Stress Test; [facility], normal per patient Medical HistoryPap and Pelvic 3 years ago, OBGYN in [facility] History Mammogram over 5 years; Normal at that time per patientMedical HistoryCT Abdomen and Pelvis over 5 years ago; [facility] HistoryColonoscopy 8 years ago; [place], normal in patientMedical HistoryChest X-Ray 12-15-11; normal, [facility] HistoryEchocardiogram; 12-16-11; [facility] HistoryCardiolite Stress Test 12-16-11; [facility] sugar's bidMedical HistoryHeart Catherization; [facility] Historybreast cancer 04/2014Medical History dx 2014 w/ 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 Aggarwal 2-40-38Fpxlnupj HistoryUS on left breast - non cancerous - Dr Hoang05/16/15 Surgical Historyleft breast DCIS status post lumpectomy x2 Dr. Misha Jamison 05/2014 and 06/2014Surgical HistoryColonoscopy, Dr. Jamison- Needs repeat in 10 -6-53Euomnyhk HistoryLithotripsy for a kidney rifbd6301'sSurgical History mammogram FR04/2017Surgical Historyvertabrae wqyute94/2019Hospitalization Historyovarian tumor removed and left overyHospitalization Historycomplete [id number] [employer] Other 10-27-2019 History general Narrative - Reported* Type Description Date Medical History Stress Test; [facility], normal per patient Medical HistoryPap and Pelvic 3 years ago, OBGYN in [facility] History Mammogram over 5 years; Normal at that time per patientMedical HistoryCT Abdomen and Pelvis over 5 years ago; [facility] HistoryColonoscopy 8 years ago; [place], normal in patientMedical HistoryChest X-Ray 12-15-11; normal, [facility] HistoryEchocardiogram; 12-16-11; [facility] HistoryCardiolite Stress Test 12-16-11; [facility] sugar's bidMedical HistoryHeart Catherization; [facility] Historybreast cancer 04/2014Medical History dx 2014 w/ 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 Aggarwal 7-70-34Qnmukpxd HistoryUS on left breast - non cancerous - Dr Hoagn05/16/15 Surgical Historyleft breast DCIS status post lumpectomy x2 Dr. Misha Jamison 05/2014 and 06/2014Surgical HistoryColonoscopy, Dr. 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)- Primary Graves disease (CMS/HCC) Toxic diffuse goiter without mention of thyrotoxic crisis or storm [facility] encounter [facility]* Diagnosis Onset Date Resolution Status Admit Date Anemia of renal disease acuteFebruary 2024 9:43amChest painacuteFebruary 2024 9:43am Epigastric painacuteFebruary 2024 9:43amFatty liveracuteFebruary 2024 9:43amHyperlipidemiaacuteFebruary 2024 9:43amHypertensionacute February 2024 9:43amHypokalemiaacuteFebruary 2024 9:43amVitamin B12 deficiencyacuteFebruary 2024 9:43amDiabetes mellituschronicFebruary 2024 9:43am [facility] Work Phone: Evaluation note* Diagnosis 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)- Primary Graves disease (CMS/HCC) Toxic diffuse goiter without mention of thyrotoxic crisis or storm documented [facility] this encounter [facility]* Diagnosis Well woman exam with routine gynecological exam Routine gynecological examination Breast cancer screening by mammogram Postmenopausal state Asymptomatic postmenopausal status (age-related) (natural) documented in this encounter [facility]* Diagnosis Thyrotoxicosis with diffuse 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- Primary Graves disease Toxic diffuse goiter without mention of thyrotoxic [...] Prac meenu Referred Organization [facility] Referred Address ,[place], [place],[address] Referred Provider Specialty Orthopedic S urgery Referral Priority Routine General Notes Florinda Leonard 02/08/2022 05:31:28 PM > Access Ortho referral form hard faxed with visit note, med list and insurance card. pt understands she will be contacted to schedule this appt. [employer] Other Reason for referral (narrative)No reason for referral information availableC[facility] Work Phone: Summary Purpose Family History Relationship Condition Age at Onset Recorded Date/T rob father Pulmonary emphysema Unknown Not SpecifiedCerebrovascular accident (CVA)Unknown Relationship Condition Age at Onset Recorded Date/T rob father Pulmonary emphysema Unknown motherCerebrovascular accident (CVA)UnknownbrotherFamily history of mental disorderUnknownDiabetes mellitusUnknownfatherFamily history of emphysemaUnknown DeceasedUnknowngrandparentDeceasedUnknownTuberculosisUnknownmotherDeceased UnknownHistory of strokeUnknownsisterDiabetes mellitusUnknown Advance Directives Advance Directive Response Recorded Date/ Time Advance Directives No February 15, 2017 3:18pm Advance Directive Response Recorded Date/ Time Advance Directives No February 15, 2017 4:18pm Hospital Course Note MR#: [id number] [facility] Pt. Name: Criselda Nevarez Admitted: 08/23/2018 [...] 10:27am 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 May 29 025 10:33am Chief Complaint Admit Date N18.9 D63.1 E11.21 I12.9 N18.32 E05.90 E 53.8 May 28, 2024 10:27am 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 May 29 025 10:33am review labs June 05, 2024 9:43am Reason for Visit Admit Date Anemia of renal disease June 05 025 9:43am Chest pain June 05, 2024 9:43am [...] Diabetes mellitus September 03, 2024 9:39a m Chief Complaint Admit Date review labs September 03, 2024 9:39a m D05.12 D05.50 L29.9 C50.919 September 13 10:25am RENAL 6 MONTHS November 20, 2024 11: 43am Reason for Visit Admit Date Breast cancer in situ September 03, 2024 9:3 9am Fatty liver September 03, 2024 9:39a m Hyperlipidemia September 03, 2024 9:39a m Hypertension September 03, 2024 9:39a m Pruritus September 03, 2024 9:39a m Stage 3a chronic kidney disease August 9:39am Diabetes mellitus September 03, 2024 9:39a m Anemia of renal disease November 20, 2024 11:43am Chronic kidney disease, stage 3b November 20, 2024 11:43am 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 November 20, 2024 11:43am Hyperkalemia November 20, 2024 11: 43am Hypertensive nephropathy November 20 11:43am Hyperthyroidism November 20, 2024 11: 43am Hypomagnesemia November 20, 2024 11: 43am Hyponatremia November 20, 2024 11: 43am Vitamin B12 deficiency November 20, 2024 11:43am Chief Complaint Admit Date RENAL 6 MONTHS November 20, 2024 11: 43am K76.9 January 14, 2025 6:41am Reason for Visit Admit Date Anemia of renal disease November 20, 2024 11:43am Chronic kidney disease, stage 3b November 20, 2024 11:43am 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 November 20, 2024 11:43am Hyperkalemia November 20, 2024 11: 43am Hypertensive nephropathy November 20 11:43am Hyperthyroidism November 20, 2024 11: 43am Hypomagnesemia November 20, 2024 11: 43am Hyponatremia November 20, 2024 11: 43am Vitamin B12 deficiency November 20, 2024 11:43am Chief Complaint Admit Date RENAL 6 MONTHS November 20, 2024 11: 43am K76.9 January 14, 2025 6:41am 6 month follow up/fatty liver/liver lesi on January 24, 2025 9:19am Reason for Visit Admit Date Anemia of renal disease November 20, 2024 11:43am Chronic kidney disease, stage 3b November 20, 2024 11:43am 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 November 20, 2024 11:43am Hyperkalemia November 20, 2024 11: 43am Hypertensive nephropathy November 20 11:43am Hyperthyroidism November 20, 2024 11: 43am Hypomagnesemia November 20, 2024 11: 43am Hyponatremia November 20, 2024 11: 43am Vitamin B12 deficiency November 20, 2024 11:43am Fatty liver January 24, 2025 9: 19am Liver lesion January 24, 2025 9: 19am Additional Source Comments INFORMATION SOURCE (unrecogn ized section and content) DATE CREATED AUTHOR 06/05/2018 [facility] DATE CREATED AUTHOR AUTHOR'S ORGANIZ ATION 12/09/2018 [facility] DATE CREATED AUTHOR AUTHOR'S ORGANIZ ATION 08/31/2022 [facility] DATE CREATED AUTHOR AUTHOR'S ORGANIZ ATION 12/08/2024 [facility] DATE CREATED AUTHOR AUTHOR'S ORGANIZ ATION 01/19/2025 [facility] REASON FOR VISIT (unrecogniz ed section and content) ReasonCommentsThyroid ProblemFollow-upReasonCommentsThyroid ProblemReason CommentsWell Women Visit Goals (unrecognized section and content) Goals may be documented in a n alternate section Care Teams (unrecognized sec tion and content) Team Status: Active Member Role Status Dates Rin Nicholson DO Primary Care Provider Active Team Status: Active Member Role Status Nils Nicholson DO Primary Care Provider Active S tart: October 25, 2024 LOREN Sharma-Noemi ProviderActiveStart: October 25, 2024 Team Status: Active Member Role Status Nils Nicholson DO Primary Care Provider Active S tart: November 07, 2024 Vamsi Enamorado ProviderActiveStart: November 07, 2024 Team Status: Active Member Role Status Nils Nicholson DO Primary Care Provider Active S tart: November 19, 2024 Vamsi Huerta ProviderActiveStart: November 19, 2024 Team Status: Inactive Member Role Status Dates Rin Nicholson DO Primary Care Provider Active S tart: November 20, 2024 End: November 20Vamsi Graham ProviderActiveStart: November 20, 2024 End: November 20, 2024 Team Status: Inactive Member Role Status Nils Nicholson DO Primary Care Provider Active S tart: January 14, 2025 End: January 14, 2025Vamsi Gregory ProviderActiveStart: January 14, 2025 End: January 14, 2025 Team Status: Inactive Member Role Status Nils Nicholson DO Primary Care Provider Active S tart: June 28, 2024 End: June 28, 2024Imad Orquidea ELZBIETAttending ProviderActiveStart: June 28, 2024 End: June 28, 2024 Team Status: Inactive Member Role Status Nils Nicholson DO Primary Care Provider Active S tart: July 23, 2024 End: July 23, 2024Imawiley Heard ELZBIETAnicolaending ProviderActiveStart: July 23, 2024 End: July 23, 2024 Team Status: Inactive Member Role Status Nils Nicholson DO Primary Care Provider Active S tart: August 10, 2024 End: August 10, 2024ImaMariam Mehtasamir ProviderActiveStart: August 10, 2024 End: August 10, 2024 [...] S tart: May 28, 2024 End: May 28ziMariam Allenending ProviderActiveStart: May 28, 2024 End: May 28, 2024 Team Status: Inactive Member Role Status Nils Nicholson DO Primary Care Provider Active S tart: May 29, 2024 End: May 29Vamsi Graham ProviderActiveStart: May 29, 2024 End: May 29, 2024 Team Status: Inactive Member Role Status Nlis Nicholson DO Primary Care Provide r, Attending Provider Active Start: June 05, 2024 End: June 05, 2024 Team Status: Inactive Member Role Status Nils Nicholson DO Primary Care Provider, Attending Pro vider Active Team Status: Inactive Member Role Status Nils Nicholson DO Primary Care Provide r, Referring Provider Active Start: February 01, 2024 End: January 31john Franklin ELZBIETAttending ProviderActiveStart: February 01, 2024 End: February 01, 2024 Team Status: Inactive Member Role Status Dates Rin Nicholson DO Primary Care Provide r, Attending Provider Active Start: February 03, 2024 End: February 03, 2024 Team Status: Active Member Role Status Dates Rin Nicholson DO Primary Care Provider Active S tart: February 22, 2024 JuanchocarloMariam Hurleyending ProviderActiveStart: February 22, 2024 Team Status: Inactive Member Role Status Dates Eddie Urias MD Attending Provider Active St art: March 02, 2024 End: March 02Rosalia Houston Care Provider, Referring ProviderActiveStart: March 02, 2024 End: March 02, 2024Team MemberRelationshipSpecialtyStart DateEnd Date Rin Nicholson MD [address] [place] [id number] PCP - [facility]03/01/24Team MemberRelationshipSpecialtyStart Date End Date Rin Nicholson MD [address] [place], [place] [id number] [facility] - [facility]03/01/24 Team Status: Inactive Member Role Status Dates Rin Nicholson DO Primary Care Provider Active S tart: June 06, 2024 End: June 06Mariam Grahamending ProviderActiveStart: June 06, 2024 End: June 06, 2024Team MemberRelationshipSpecialtyStart DateEnd Date Rin Nicholson MD [address] [place], [place] [phone] [facility]03/01/24Team MemberRelationshipSpecialtyStart Date End Date Rin Nicholson MD [address] [place], [place] [id number] PCP - [facility]03/01/24 Team Status: Inactive Member Role Status Dates Rin Nicholson DO Primary Care Provider Active S tart: June 14, 2024 End: June 14, 2024Imawiley Heard MDAttsamir ProviderActiveStart: June 14, 2024 End: June 14, 2024Team MemberRelationshipSpecialtyStart DateEnd Date Rin Nicholson MD [address] [place] [address] PCP - [facility]03/01/24Team MemberRelationshipSpecialtyStart Date End Date Rin Nicholson MD [address] [place] [address] PCP - [facility]03/01/24Team MemberRelationshipSpecialtyStart Date End Date Rin Nicholson MD [address] [place] [address] PCP - [facility]03/01/24 Team Status: Inactive Member Role Status Dates Rin Nicholson DO Primary Care Provider Active S tart: September 03, 2024 End: September 03, 2024Daandres Nicholson DOAttsamir ProviderActiveStart: September 03, 2024 End: September 03, 2024 Team Status: Inactive Member Role Status Dates Rin Nicholson DO Primary Care Provider Active S tart: September 13, 2024 End: September 13, 2024DaXiomara Madsen ProviderActiveStart: September 13, 2024 End: September 13, 2024Team MemberRelationshipSpecialtyStart DateEnd Date Rin Nicholson MD [address] [place] [address] PCP - [facility]03/01/24Team MemberRelationshipSpecialtyStart Date End Date Rin Nicholson MD [address] [place] [address] [address] [place] [address] [facility] Lk[facility]mpr[facility]14/24 Team Status: Inactive Member Role Status Dates Rin Nicholson DO Primary Care Provider Active S tart: January 24, 2025 End: January 24, 2025Imawiley Heard MDAttending ProviderActiveStart: January 24, 2025 End: January 24, 2025 FOR RECORDS PERTAINING TO PATIENTS WHO ARE [...] BE BASED ON THE PRIMARY CLINICAL RECORDS. [employer] [facility]. provides no warranty or guarantee of the accuracy or completeness of information in this document.
--- OUTSIDE RECORDS SUMMARY | 2025-02-25 07:32 | XMS_ITS | Clinical Summary ---
Author Organization [facility] Address [address] [place] [address] Care Team Providers Care Eyewear Manufacturing Supervisor Name Role Phone Pramod Roach MD Primary Care Provider [phone] Allergies No known active allergies Medications MedicationSigDispense QuantityRefillsLast FilledStart DateEnd DateStatus atorvastatin (Lipitor) 10 MG tablet Take 10 mg by mouth DailyActive glimepiride (Amaryl) 1 MG tablet Take 1 mg by mouth in the morning. Take before meals.Active hydroCHLOROthiazide (HYDRODiuril) 12.5 MG tablet Take 12.5 mg by mouth DailyActive lisinopril 20 MG tablet Take by mouth DailyActive omeprazole (PriLOSEC) [address] capsule Take 40 mg by mouth in the morning. Take before meals. Do not crush or chew. Active pioglitazone (Actos) 30 MG tablet Take 30 mg by mouth DailyActive Magnesium Glycinate 100 MG capsule Take 100 mg by mouth DailyActive cyanocobalamin (Vitamin B-12) 500 MCG tablet Take 500 mcg by mouth DailyActive metoprolol succinate XL (Toprol-XL) 25 MG 24 hr tablet Indications:Thyrotoxicosis, unspecified without thyrotoxic crisis or stormTake 1 tablet by mouth once daily 90 tablet 5Active methIMAzole (Tapazole) 5 MG tablet Indications:Thyrotoxicosis with diffuse 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TAKE 1 TABLET BY MOUTH ONCE DAILY 6 DAYS OUT OF THE WEEK 90 tablet 5Active Active Problems ProblemNoted DateDiagnosed DateThyrotoxicosis, unspecified without thyrotoxic crisis or storm02/20/2024 Encounters DateTypeDepartmentCare DooeGyiggjtadtl86/05/2025Refill [facility] [address] [place] [address] Nae Argueta MD Thyrotoxicosis with diffuse 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12/06/2024 10:00 AM EDTOffice Visit [facility] [address] [place] [address] Nae Argueta MD Thyrotoxicosis with diffuse 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 (Primary Dx); Graves kvmcjsh2212/06/2024amboo flowsheet [facility] [facility] [address] [place] [address] Nae Argueta MD from Last 3 Months Immunizations ImmunizationAdministration DatesNext DueInfluenza, High Dose Seasonal, Preservative Free12/22/2023Influenza, High-dose Seasonal, Quadrivalent, Preservative Free03/22/2023,01/15/2022Influenza, Seasonal, Quadrivalent, Qnacrfgbhq00/09/2021Influenza, Jdgnilnkodq87/20/2014Influenza, injectable, quadrivalent, preservative free01/18/2020,02/19/2017Influenza, seasonal, lxutkrkcsq08/02/2020,03/08/2016Influenza, seasonal, injectable, preservative free03/24/2012Pneumococcal Conjugate PCV Tdap12/22/2023Zoster, Quqiknlrtyp58/13/2024,04/08/2023 Family History Medical HistoryRelationNameCommentsCOPDFatherDiabetesMotherStrokeMotherCancer OtherDiabetesOtherHeart diseaseOtherhigh blood pressureOtherRelationNameStatus CommentsFatherDeceasedMotherDeceasedOther Social History Tobacco UseTypesPacks/DayYears UsedDateSmoking Tobacco: NeverSmokeless Tobacco: Never Tobacco Cessation:Counseling Given: Not Answered Alcohol UseStandard Drinks/WeekCommentsNever0 (1 standard drink = 0.6 oz pure alcohol)CommentsNoSex and Gender InformationValueDate RecordedSex Assigned at BirthNot on fileLegal IfwFxmpqx01/15/2023 6:59 PM EDTGender Identity Not on fileSexual OrientationNot on file Last Filed Vital Signs Vital SignReadingTime TakenCommentsBlood Ctbxjvvm092/8007 10:24 AM EDT Lcdgz179012/06/2024 10:00 AM EDTTemperature--Respiratory Tzhn3843 10:00 AM EDTOxygen Qibqhricru21%12/06/2024 10:00 AM EDTInhaled Oxygen Concentration-- Boiobm35.4 kg (164 lb)12/06/2024 10:00 AM TDHDrffbg460.9 cm (4' 11 )12/06/2024 10:00 AM EDTBody Mass Index33.1208 10:00 AM EDT Plan of Treatment DateTypeDepartmentCare Team (Latest Contact Info)Liapmmwoiwu87/19/2026 9:40 AM ESTOffice Visit [facility] [address] [place] [address] Nae Argueta MD [address] [place] [address] 10/30/2025 10:00 AM EDTOffice Visit [facility] [address] [place] [address] Selin No PA [address] [place] [address] Health MaintenanceDue DateLast DoneCommentsCT Phwhwtvacuek12/09/1956Colonoscopy 1955olorectal Cancer Lnourkfwm46/09/1956FIT-DNA1955FIT1955 FOBT1955 0340Tiqsejqwsxxvj91/09/6590Uavyratax07/09/1996COVID-19 Vaccine ( season)/08/2023, 07/31/2021, 02/20/2021, Additional history existsInfluenza Vaccine (#1)/08/2023, 03/22/2023, 01/15/2022, Additional history existsPneumococcal Vaccine: 65+ FmwgaXviqhhlwr98/09/2024 Insurance Care Teams Team MemberRelationshipSpecialtyStart DateEnd Pramod Roach MD [address] [place] [address] PCP - GeneralFamily Lcboqtrn78/14/24
--- OUTSIDE RECORDS SUMMARY | 2025-02-25 07:33 | XMS_ITS | Clinical Summary ---
Author Organization [employer] Address [id number] [address] [place] [address] Care Team Providers Care Plasterer Foreman Name Role Phone No Pcp, No Pcp Primary Care Provider Unavailabl e Medications MedicationSigDispense QuantityRefillsLast FilledStart DateEnd DateStatus metFORMIN (GLUCOPHAGE) 1000 mg tablet Take 1,000 mg by mouth 2 (two) times a day with meals.Active atorvastatin (LIPITOR) 10 mg tablet Take 10 mg by mouth daily.Active pioglitazone (ACTOS) 30 mg tablet Take 30 mg by mouth daily.Active hydroCHLOROthiazide (HYDRODIURIL) 12.5 mg tablet Take 12.5 mg by mouth daily.Active omeprazole (PriLOSEC) 40 mg capsule Take 40 mg by mouth every morning before breakfast.Active quinapril (ACCUPRIL) 40 mg tablet Take 40 mg by mouth daily.Active tamoxifen (NOLVADEX) 20 mg chemo tablet Take 20 mg by mouth daily.Active meloxicam (MOBIC) 15 mg tablet Take 15 mg by mouth daily as needed for pain.Active aspirin 81 mg Take 81 mg by mouth daily.Active estradiol (ESTRACE) 1 mg tablet Take 1 mg by mouth daily.Active senna (SENNA LAXATIVE) 8.6 mg tablet Take 17.2 mg by mouth daily. DO NOT TAKE IF HAVE DIARRHEAActive polyethylene glycol (MIRALAX) 17 gram packet Take 17 g by mouth daily as needed (CONSTIPATION).Active HYDROcodone-acetaminophen (NORCO) 5-325 mg per tablet Take 2 tablets by mouth every 6 (six) hours as needed for pain.Active Social History Tobacco UseTypesPacks/DayYears UsedDateSmoking Tobacco: Never AssessedChildcare AnswerDate VcynioiaTruifuxwwOiicdzs95/03/2019EmploymentAnswerDate Recorded QecsbavsshNagihqa38/03/2019Purpose - LifeAnswerDate RecordedPurpose and direction in iykoTdwkwhu45/11/2021CommentsUnknownSex and Gender InformationValueDate RecordedSex Assigned at BirthNot on fileLegal SexFemale 11/21/2014 11:21 AM EDTGender IdentityNot on fileSexual OrientationNot on file Last Filed Vital Signs Vital SignReadingTime TakenCommentsBlood Pnxqemtz588/7805 8:21 AM EDT Osovw9513 8:21 AM QVBNxehyjrvxut59 ??C (98.6 ??F)09/08/2018 8:21 AM EDT Respiratory Ekgv976509/08/2018 8:21 AM EDTOxygen Cagqvemkfh93%09/06/2018 4:13 PM EDTInhaled Oxygen Concentration--Weight--Height--Body Mass Index-- Plan of Treatment Health MaintenanceDue DateLast DoneCommentsDepression Wdktivtqj52/09/1968Tobacco Fntgvrvvj34/09/1968Adult BMI Zuasfoahh49/09/1974DTaP,Tdap and Td Vaccines (1 - Tdap)12/25/1974Zoster (Shingles) Vaccine (1 of 2)12/25/2005Fall Risk Screening 12/25/2020Influenza Pvxmnes0812/17/2024RSV ( or age 60+ yrs) (1 - 1-dose 75+ series)12/25/2030 Medical Devices Not on file Insurance Care Teams Team MemberRelationshipSpecialtyStart DateEnd Date No Pcp, [place] [address] [facility] - [facility]
[2025-02-25 08:50] LABS: Alanine Aminotransferase 26 U/L (14-59); Albumin Globulin Ratio 0.9; Albumin Level 3.7 g/dL (3.4-5.0); Alkaline Phosphatase 118 U/L (46-116); Anion Gap 13.9; Aspartate Amino Transferase 16 U/L (15-37); Blood Urea Nitrogen 26.0 mg/dL (7.0-18.0); Calcium 9.1 mg/dL (8.5-10.1); Carbon Dioxide 26.6 mmol/L (21.0-32.0); Chloride 104 mmol/L (98-107); Cholesterol 192 mg/dL (<=200); Estimated GFR (African America 48 (>=60 mL/min/1.73m^2); Estimated GFR (Non-African Ame 40 (>=60 mL/min/1.73m^2); Globulin 3.9 g/dL; Glucose 172 mg/dL (74-106); HDL Cholesterol 49 mg/dL (40-60); Potassium 4.5 mmol/L (3.5-5.1); Sodium 140 mmol/L (136-145); Total Protein 7.6 g/dL (6.4-8.2); Triglycerides 130 mg/dL (<=150); VLDL CHOLESTEROL 26.0 mg/dL
== END 2025-02-25 07:28 | disposition home or self-care (01) ==
LOC: LAB 07:29
PROVIDERS: PCP Family Medicine; Visit Provider Family Medicine
DX: Z79.899 Other long term (current) drug therapy (principal); E78.5 Hyperlipidemia, unspecified; R73.9 Hyperglycemia, unspecified
CPT/HCPCS: 36415; 80053; 80061; 83036